=== PATIENT | female | born 1940 | race Caucasian/White ===

== ENCOUNTER 2022-11-13 10:49 | Outpatient (OUT) | payer MEDICARE, OTHER, SELFPAY ==
[2022-11-13 11:56] LABS: Basophils Absolute Auto 0.1 10^3/uL (0.0-0.1); Basophils Percent Auto 0.6 % (0.2-2.0); Eosinophils Absolute Auto 0.2 10^3/uL (0.0-0.7); Eosinophils Percent Auto 2.1 % (0.9-7.0); Hematocrit 41.7 % (36.0-48.0); Hemoglobin 13.9 g/dL (12.0-16.0); Immature Granulocytes Abs Auto 0.05 10^3/uL (0.00-0.03); Immature Granulocytes Pct Auto 0.5 % (0.0-0.5); Lymphocytes Absolute Auto 3.3 10^3/uL (1.2-3.8); Lymphocytes Percent Auto 34.2 % (20.5-60.0); Mean Corpuscular HGB Conc 33.3 g/dL (29.9-35.2); Mean Corpuscular Hemoglobin 34.4 pg (26.7-34.0); Mean Corpuscular Volume 103.2 fL (81.0-99.0); Mean Platelet Volume 9.1 fL (9.5-13.5); Monocytes Absolute Auto 0.8 10^3/uL (0.3-0.8); Monocytes Percent Auto 8.4 % (1.7-12.0); Neutrophils Absolute Auto 5.1 10^3/uL (1.4-6.5); Neutrophils Percent Auto 54.2 % (43.0-75.0); Platelet Count 278 10^3/uL (150-450); Red Blood Count 4.04 10^6/uL (4.20-5.40); Red Cell Distribution Width 13.1 % (11.0-15.0); White Blood Count 9.5 10^3/uL (4.0-11.0)
[2022-11-13 12:41] LABS: Alanine Aminotransferase 47 U/L (14-59); Albumin Level 3.9 g/dL (3.4-5.0); Alkaline Phosphatase 82 U/L (46-116); Anion Gap 15.8; Aspartate Amino Transferase 38 U/L (15-37); BUN Creatinine Ratio 14.8; Bilirubin Total 0.4 mg/dL (0.2-1.0); Calcium 9.6 mg/dL (8.5-10.1); Carbon Dioxide 22.7 mmol/L (21.0-32.0); Chloride 101 mmol/L (98-107); Estimated GFR (African America 55 (>=60); Estimated GFR (Non-African Ame 45 (>=60); Globulin 4.1 g/dL; Glucose 109 mg/dL (74-106); Potassium 4.5 mmol/L (3.5-5.1); Sodium 135 mmol/L (136-145); Thyroid Stimulating Hormone 2.167 uIU/mL (0.358-3.740)
== END 2022-11-13 10:50 ==
PROVIDERS: PCP Family Medicine; Visit Provider Family Medicine
DX: I11.0 Hypertensive heart disease with heart failure (principal); I50.30 Unspecified diastolic (congestive) heart failure; I48.0 Paroxysmal atrial fibrillation; I25.10 Atherosclerotic heart disease of native coronary artery without angina pectoris
CPT/HCPCS: 36415; 80053; 83880; 84436; 84443; 84481; 85025

== ENCOUNTER 2022-12-11 12:59 | Outpatient (OUT) | payer MEDICARE, OTHER, SELFPAY ==
--- NOTE | 2022-12-11 13:01 | CA_ITS ---
Patient: ABDIRAHMAN GOMEZ Exam Date: 12/11/2022 : 1940 Gender:F Ordering : DR Ganesh Samuel . Admission #: [id number] Family : DR SAMANTHA LAMB M.D. Order #: [id number] CLICK HERE TO VIEW EXAM ECHOCARDIOGRAM REPORT PROCEDURE: CA ECHO DOPPLER COMPLETE INDICATIONS: Chest pain, Hypertension, CHF COMPARISON: None. DESCRIPTION: COMPLETE ECHOCARDIOGRAM Real-time transthoracic echocardiography with 2D, M-mode, spectral and color flow Doppler performed. QUALITY: Technical quality was adequate. LEFT VENTRICLE: Normal chamber size. Normal left ventricular wall thickness. Global left ventricular systolic function is normal. LV EF: Visual estimation of left ventricular ejection fraction is 60%. DIASTOLIC: Not adequately assessed due to heart rhythm. ATRIAL SEPTUM: LEFT ATRIUM: Moderate dilatation. RIGHT ATRIUM: Moderate dilatation. RIGHT VENTRICLE: Mild dilatation. Normal right ventricular systolic function. TRICUSPID VALVE: Normal mobility and thickness. No stenosis with moderate to severe regurgitation. Mild pulmonary hypertension. RVSP 35 mmHg MITRAL VALVE: Mildly thickened with normal mobility. No evidence of mitral valve stenosis. There is no mitral annular calcification. Mild to moderate mitral regurgitation. AORTIC VALVE: Normal trileaflet appearance. Mildly calcified aortic valve. Normal leaflet mobility. Doppler velocity suggest no aortic valve stenosis. Trivial aortic regurgitation. AORTIC ROOT: Normal diameter and appearance. PULMONIC VALVE: Normal thickness and mobility. No stenosis. Mild regurgitation. PERICARDIUM: No evidence of pericardial effusion. IVC: Collapses with inspirations. Normal size PLEURA: CONCLUSION: 1. Left ventricular systolic function is normal. LVEF is 60%. 2. Mildly dilated right ventricle with normal systolic function. 3. Moderate biatrial dilatation. 4. Moderate to severe tricuspid regurgitation. 5. Mild to moderate mitral regurgitation. 6. Mildly elevated right-sided pressures. RVSP is 35 mmHg. Adult Echocardiography Procedure Report Left Ventricle LVEDD (3.7 - 5.6 cm): 4.24 cm LVESD (2.2 - 4.0 cm): 2.71 cm LVIVS thickness (0.6 - 1.2 cm): 0.83 cm LVPW thickness (0.5 - 1.0 cm): 0.88 cm e': 0.12 m/s E - e': 7.09 LVOT Max Gradient: 1.40 mm[Hg], 1.24 mm[Hg] LVOT Area (cm2): 0.57 m/s Peak Velocity (LVOT): 0.59 m/s, 0.56 m/s Mean Velocity (LVOT): 0.39 m/s LVOT Diameter 1.87 cm Left Atrium Left Atrium Systolic Dimension: 4.19 cm Mitral Valve Mitral Valve E-Wave Peak Velocity: 0.87 m/s Right Ventricle RV Internal Diastolic Dimension: 4.23 cm Aorta AO Root Diam: 2.58 cm Ascending Ao Diam: 2.50 cm Aortic Valve AoV Area (Peak Luis): 1.53 cm2, 1.58 cm2 AoV Area (VTI): 1.71 cm2, 1.70 cm2 Peak Velocity(Antegrade Flow): 1.03 m/s Peak Gradient(Antegrade Flow): 4.22 mm[Hg] Mean Velocity(Antegrade Flow): 0.68 m/s Mean Gradient(Antegrade Flow): 2.10 mm[Hg] Velocity Time Integral: 20.92 cm Tricuspid Valve Peak Velocity (Regurgitant Flow): 2.56 m/s, 2.64 m/s, 2.85 m/s, 2.77 m/s Pulmonic Valve Peak Velocity: 0.65 m/s Peak Gradient: 1.19 mm[Hg], 2.27 mm[Hg] Right Atrium Right Atrium Systolic Pressure: 62.83 ml, 48.24 ml, 77.42 ml Dictated by: Kirk Lopez M.D. on 12/11/2022 at 18:46 Approved by: Kirk Lopez M.D. on 12/11/2022 at 18:50
== END 2022-12-11 13:00 | disposition home or self-care (01) ==
LOC: CARD 13:00
PROVIDERS: PCP Family Medicine; Visit Provider Family Medicine
DX: I11.0 Hypertensive heart disease with heart failure (principal); I50.9 Heart failure, unspecified; I07.1 Rheumatic tricuspid insufficiency; I25.10 Atherosclerotic heart disease of native coronary artery without angina pectoris; R07.9 Chest pain, unspecified
CPT/HCPCS: 93306

== ENCOUNTER 2023-01-25 08:48 | Outpatient (OUT) | payer MEDICARE, OTHER, SELFPAY ==
--- NOTE | 2023-01-25 | PCN_ITS ---
CARDIAC STRESS TEST Requesting Physician:? Ganesh Samuel M.D. < > (name of nurse practitioner unclear ? please verify) [employer] Procedure Date:? 01/25/2023 INDICATION:? Chest pain. STRESS TEST PROTOCOL:? Lexiscan myocardial perfusion imaging. . Resting blood pressure:? 160/92 Resting heart rate:? 86 Post infusion blood pressure:? 162/86 Post infusion heart rate:? 81 CONCLUSION:? 1.? Resting EKG is abnormal and indicative of possible lateral ischemia. 2.? Patient has frequent PVCs pre-infusion and increase in frequency with infusion.? 3.? Patient reported back pain.? No reports of chest pain. 4.? No definite EKG changes consistent with ischemia post Lexiscan infusion. 5.? Please refer to separately interpreted and reported nuclear myocardial perfusion imaging. 6.? Clinical correlation recommended.? MTDD
--- NOTE | 2023-01-25 08:00 | NM_ITS ---
Patient: ABDIRAHMAN GOMEZ Exam Date: 01/25/2023 : 1940 Gender:F Ordering : MRS. JAILYN MEANS NP Admission #: [id number] Family : DR Ganesh Samuel . Order #: [id number] CLICK HERE TO VIEW EXAM RADIOLOGY REPORT PROCEDURE: NM ADAN PERF SPECT REST STR COMPARISON: None. INDICATIONS: CHEST PAIN TECHNIQUE: Exam Description: Stress/Rest one day protocol gated SPECT Rest Imagin.2 mCi Tc-99m Cardiolite IV on 01/25/2023 Stress Imaging 30.5 mCi Tc-99m Cardiolite IV on 01/25/2023 Exercise Protocol: 0.4 mg Lexiscan given IV Heart Rate (bpm): Rest: 86 Max: 93 PMHR: 67 Blood Pressure: Rest: 168/92 Max: 168/92 Symptoms: Rest and peak stress ECG findings were equivocal and the exercise portion of the study was Equivocal per attending physician Dr. Penaloza . For more details please see separate cardiac stress test report. FINDINGS: QUALITY OF STUDY: Excellent. PERFUSION DEFECT: None. LOCATION: N/A SIZE: N/A. SEVERITY: N/A. TYPE: N/A. WALL MOTION: Normal. LV SIZE: Normal. 45 mL. TID / TCD: None; 0.8 LVEF: Normal. Calculated EF 74%. SUMMARY: Myocardial perfusion imaging study is NORMAL. CONCLUSION: 1. Normal nuclear medicine myocardial perfusion scan. Dictated by: Fly Cantu M.D. on 01/26/2023 at 11:37 Approved by: Fly Cantu M.D. on 01/26/2023 at 11:47
[2023-01-25] MEDS: REGADENOSON 0.4 MG/5 ML SYRINGE IV (10:09)
== END 2023-01-25 08:49 | disposition home or self-care (01) ==
LOC: NM 08:48
PROVIDERS: PCP Family Medicine; Visit Provider Nurse Practitioner Acute Care
DX: R07.9 Chest pain, unspecified (principal)
CPT/HCPCS: 78452; 93017; A9500; J2785

== ENCOUNTER 2023-02-01 03:58 | Inpatient (IN) | payer MEDICARE, OTHER, SELFPAY ==
[2023-02-01] VITALS (46 sets, daily range): BP systolic 101–159; BP diastolic 53–78; PULSE 66–117; RESP 16–33; TEMP 36.6–37.2; O2SAT 89–96; BMI 26.9; BMI 28.1
--- NOTE | 2023-02-01 04:05 | ED_ITS ---
HPI - SOB/Dyspnea General Chief Complaint: Shortness of Breath/Dyspnea Stated Complaint: SHORTNESS OF BREATH Time Seen by Provider: 02/01/23 04:05 Mode of arrival: ambulance History of Present Illness HPI Narrative: pt presents to the emergency department complaining of dyspnea. Patient states she went to bed last night feeling well and in the middle the night she woke up coughing. She states she has a cough which is productive of phlegm with blood tinged also noted. Patient denies any fever, or chills. She states she is feeling short of breath. She denies any weakness. She does not have a history of lung disease. She has a history of atrial fibrillation and she takes Eliquis. She denies any fall or trauma. She denies any nausea, vomiting, diarrhea, constipation, or abdominal pain. She denies any chest pain. States she has had a change in 2008. Her committee member is from [facility]. She states she Had a stress test done last week here at [place]. Patient's ejection fraction was 74 percent. Her myocardial perfusion imaging was normal. Patient was told she had a leaky valve but nothing that would be surgical. Patient was found to be hypoxic 89% RA by EMS and she arrives to the emergency department on 4 L nasal cannula satting 92 percent. Related Data Home Medications Medication Instructions Recorded Confirmed amitriptyline 25 mg tablet 25 mg PO BEDTIME 02/01/23 02/01/23 amlodipine 10 mg tablet 10 mg PO DAILY 02/01/23 02/01/23 apixaban 5 mg tablet (Eliquis) 5 mg PO Q12H 02/01/23 02/01/23 aspirin 81 mg capsule 81 mg PO DAILY 02/01/23 02/01/23 carvedilol 12.5 mg tablet 12.5 mg PO Q12H 02/01/23 02/01/23 furosemide 20 mg tablet 40 mg PO DAILY 02/01/23 02/01/23 hydrocodone 5 mg-acetaminophen 325 1 tab PO Q12H 02/01/23 02/01/23 mg tablet isosorbide mononitrate 60 mg 60 mg PO DAILY 02/01/23 02/01/23 tablet,extended release 24 hr lorazepam 1 mg tablet 1 mg PO Q12H 02/01/23 02/01/23 montelukast 10 mg tablet 10 mg PO DAILY 02/01/23 02/01/23 omeprazole 40 mg capsule,delayed 40 mg PO BID 02/01/23 02/01/23 release polyethylene glycol 3350 17 17 g PO DAILY PRN constipation 02/01/23 02/01/23 gram/dose oral powder (ClearLax) potassium chloride 20 mEq 20 meq PO DAILY 02/01/23 02/01/23 tablet,extended release(part/cryst) (Klor-Con M) pramipexole 0.5 mg tablet 0.5 mg PO DAILY 02/01/23 02/01/23 rosuvastatin 5 mg tablet 5 mg PO DAILY 02/01/23 02/01/23 tizanidine 4 mg tablet 4 mg PO Q12H 02/01/23 02/01/23 valsartan 40 mg tablet 40 mg PO DAILY 02/01/23 02/01/23 Allergies Allergy/AdvReac Type Severity Reaction Status Date / Time ciprofloxacin [From Cipro] Allergy Unknown Verified 02/01/23 04:04 Review of Systems ROS Status of ROS 10 or more systems reviewed and unremarkable except as noted in history and below [facility] Social History Smoking status: Never smoker Exam Narrative Exam Narrative: Nurses notes and vital signs reviewed and patient is hypoxic. General: Elderly, frail, chronically ill,and in no apparent distress. Skin: Warm, dry, mild pallor noted. No Rash Head: Normocephalic, atraumatic. Neck: Supple, non-tender. Eye: Pupils are equal, round and EOMI. No scleral icterus. Ears, Nose, Mouth, and Throat: TM clear, no posterior oropharynx erythema or n nakia mucosal hypertrophy, uvula is mid-line Oral mucosa is moist Cardiovascular: Irregularly irregular tachycardia without murmur, gallop or rub. Respiratory: tachypnea, No accessory muscle use or respiratory distress. Lungs Bilateral diffuse rales Chest Wall: no tenderness Back: No midline thoracic or lumbar vertebral tenderness. No CVA tenderness Musculoskeletal: normal ROM, no calf or popliteal tenderness, no lower extremity edema/swelling GI: Abdomen is soft, non-distended. Normal bowel sounds. No masses appreciated. No tenderness to palpation. No rebound, guarding, or rigidity noted. Neurological: A&O x4. No cranial nerve dysfunction observed. No truncal ataxia. Moves all extremities. Sensation intact. Psychiatric: Cooperative and interactive. Normal mood and affect. Constitutional Vital Signs, click to edit/add: Last Vital Signs Temp 98.7 F 02/01/23 04:00 Pulse 104 H 02/01/23 06:10 Resp 24 02/01/23 06:10 BP 125/67 02/01/23 06:00 Pulse Ox 93 L 02/01/23 06:15 O2 Del Method Nasal Cannula 02/01/23 06:15 O2 Flow Rate 4 02/01/23 06:15 Course Vital Signs Vital signs: Vital Signs Temperature 98.7 F 02/01/23 04:00 Pulse Rate 93 H 02/01/23 04:00 Respiratory Rate 20 02/01/23 04:00 Blood Pressure 139/62 02/01/23 04:00 Pulse Oximetry 92 L 02/01/23 04:00 Oxygen Delivery Method Nasal Cannula 02/01/23 04:00 Oxygen Delivery Flow Rate 4 02/01/23 04:00 Temperature 98.7 F 02/01/23 04:00 Pulse Rate 104 H 02/01/23 06:10 Respiratory Rate 24 02/01/23 06:10 Blood Pressure 125/67 02/01/23 06:00 Pulse Oximetry 93 L 02/01/23 06:15 Oxygen Delivery Method Nasal Cannula 02/01/23 06:15 Oxygen Delivery Flow Rate 4 02/01/23 06:15 MDM - SOB/Dyspnea MDM Narrative Medical decision making narrative: EKG shows atrial fibrillation with RVR [address] depression in the 1 and aVL, similar to previous EKG from 06/08/2022. Patient has leukocytosis, chest x-ray shows infiltrates. She was started on Rocephin, and Zithromax as she is ALLERGIC to Cipro. The patient was given 5 mg of labetalol IV and her heart rate is down to 86. Patient still on oxygen. She was discussed with Dr. mock-He will admit the patient to a [facility] telemetry bed. Differential Diagnosis Differential diagnosis: Likely acute exacerbation of chronic obstructive airways disease, congestive heart failure, community acquired pneumonia and asthma with exacerbation Medical Records Attestation: I reviewed the patient's medical records. Lab Data Attestation: I reviewed the patient's lab results. Labs: Lab Results 02/01/23 Range/Units 04:44 WBC 13.4 H (4.0-11.0) 10^3/uL RBC 3.87 L (4.20-5.40) 10^6/uL Hgb 13.3 (12.0-16.0) g/dL Hct 39.6 (36.0-48.0) % MCV 102.3 H (81.0-99.0) fL MCH 34.4 H (26.7-34.0) pg MCHC 33.6 (29.9-35.2) g/dL RDW 13.7 (11.0-15.0) % Plt Count 238 (150-450) 10^3/uL MPV 8.9 L (9.5-13.5) fL Neut % (Auto) 88.5 H (43.0-75.0) % Lymph % (Auto) 7.8 L (20.5-60.0) % [place] % (Auto) 1.9 (1.7-12.0) % Eos % (Auto) 0.6 L (0.9-7.0) % Baso % (Auto) 0.3 (0.2-2.0) % Neut # (Auto) 11.8 H (1.4-6.5) 10^3/uL Lymph # (Auto) 1.1 L (1.2-3.8) 10^3/uL [place] # (Auto) 0.3 (0.3-0.8) 10^3/uL Eos # (Auto) 0.1 (0.0-0.7) 10^3/uL Baso # (Auto) 0.0 (0.0-0.1) 10^3/uL Abs Immat Gran (auto) 0.12 H (0.00-0.03) 10^3/uL Imm/Tot Granulo (auto) 0.9 H (0.0-0.5) % PT 10.1 (9.0-11.6) sec INR 0.95 APTT 29.3 (22.3-36.2) sec Sodium 130 L (136-145) mmol/L Potassium 3.7 (3.5-5.1) mmol/L Chloride 97 L (98-107) mmol/L Carbon Dioxide 20.9 L (21.0-32.0) mmol/L Anion Gap 15.8 BUN 8.0 (7.0-18.0) mg/dL Creatinine 0.96 (0.55-1.02) mg/dL Est GFR ( Amer) >60 (>=60) Est GFR (Non-Af Amer) 56 L (>=60) BUN/Creatinine Ratio 8.3 Glucose 124 H (74-106) mg/dL Calcium 8.2 L (8.5-10.1) mg/dL Total Bilirubin 0.4 (0.2-1.0) mg/dL AST 43 H (15-37) U/L ALT 41 (14-59) U/L Alkaline Phosphatase 84 (46-116) U/L Troponin I High Sens 9.9 (4.0-51.3) pg/mL NT-Pro-B Natriuret Pep 866.0 (<=1800.0) pg/mL Total Protein 7.2 (6.4-8.2) g/dL Albumin 3.2 L (3.4-5.0) g/dL Globulin 4.0 g/dL Albumin/Globulin Ratio 0.8 Discharge Plan Discharge Chief Complaint: Shortness of Breath/Dyspnea Clinical Impression: Hypoxemia, Atrial fibrillation, Pneumonia Patient Disposition: Admitted As Inpatient Time of Disposition Decision: 06:30 Condition: Good Prescriptions / Home Meds: No Action amitriptyline 25 mg tablet 25 mg PO BEDTIME amlodipine 10 mg tablet 10 mg PO DAILY Eliquis 5 mg tablet 5 mg PO Q12H carvedilol 12.5 mg tablet 12.5 mg PO Q12H furosemide 20 mg tablet 40 mg PO DAILY hydrocodone-acetaminophen 5-325 mg tablet 1 tab PO Q12H isosorbide mononitrate 60 mg tablet extended release 24 hr 60 mg PO DAILY lorazepam 1 mg tablet 1 mg PO Q12H Patient Comments: 1/2-1 tablet twice daily montelukast 10 mg tablet 10 mg PO DAILY omeprazole 40 mg capsule,delayed release(DR/EC) 40 mg PO BID polyethylene glycol 3350 [ClearLax] 17 gram/dose powder 17 g PO DAILY PRN (Reason: constipation) potassium chloride [Klor-Con M20] 20 mEq tablet,ER particles/crystals 20 meq PO DAILY pramipexole 0.5 mg tablet 0.5 mg PO DAILY rosuvastatin 5 mg tablet 5 mg PO DAILY tizanidine 4 mg tablet 4 mg PO Q12H valsartan 40 mg tablet 40 mg PO DAILY aspirin 81 mg capsule 81 mg PO DAILY Referrals: Ganesh Samuel MD [Primary Care Provider] - 1 week
--- NOTE | 2023-02-01 04:32 | XR_ITS ---
The [address] [address] Patient Name: ABDIRAHMAN GOMEZ MRN: [id number] date: 1940 Sex: F Assigned Patient Location: ER Current Patient Location: ED.MAIN Accession/Order Number: [id number] Exam Date: 02/01/2023 04:55 Report Date: 02/01/2023 05:39 At the request of: LAITH MARIANO Procedure: XR chest 1V EXAM: XR chest 1V HISTORY: Dyspnea; indication states cough and shortness of breath; technologist notes state coughing up blood. COMPARISON: Portable chest radiograph dated 09/22/2018. TECHNIQUE: AP erect portable chest radiograph performed. FINDINGS: Stable median sternotomy wires secondary to coronary artery bypass graft surgery. Left subclavian pacemaker with leads overlying the right atrium and the right ventricle. Stable mild prominence of the cardiac silhouette. Stable mild elevation of the right hemidiaphragm. There are new mild patchy right perihilar/infrahilar opacities. There is no pleural effusion or pulmonary vascular congestion. XR/XR chest 1V IMPRESSION: There are new mild patchy right perihilar/infrahilar opacities. Appropriate clinical management and a follow-up chest radiograph to confirm complete resolution recommended. Electronically authenticated by: BLACK RIVERA Date: 02/01/2023 05:39
--- NOTE | 2023-02-01 04:32 | ECG_ITS ---
The [facility] Test Date: 2023-02-01 Pat Name: ABDIRAHMAN GOMEZ Department: Room: - Gender: Female [employer] Architect: : 1940 Requested By: IRISH FAUSTIN Order Number: [id number] Reading MD: SABA RUSSELL Measurements Intervals [place] Rate: 114 P: -85422 NC: -25353 QRS: -19 QRSD: 80 T: 118 QT: 296 QTc: 363 Interpretive Statements 75183 Atrial fibrillation with rapid ventricular response [address] depression, probably digitalis effect 7300 Indeterminate axis T wave inversion, can't exclude lateral wall ischemia Low voltage across the precordium 9150 abnormal ECG No previous ECG available for comparison Electronically Signed On 02-01-2023 6:58:47 EDT by SABA RUSSELL
[2023-02-01 05:02] LABS: Basophils Percent Auto 0.3 % (0.2-2.0); Eosinophils Absolute Auto 0.1 10^3/uL (0.0-0.7); Eosinophils Percent Auto 0.6 % (0.9-7.0); Hematocrit 39.6 % (36.0-48.0); Hemoglobin 13.3 g/dL (12.0-16.0); Immature Granulocytes Abs Auto 0.12 10^3/uL (0.00-0.03); Immature Granulocytes Pct Auto 0.9 % (0.0-0.5); Lymphocytes Absolute Auto 1.1 10^3/uL (1.2-3.8); Lymphocytes Percent Auto 7.8 % (20.5-60.0); Mean Corpuscular HGB Conc 33.6 g/dL (29.9-35.2); Mean Corpuscular Hemoglobin 34.4 pg (26.7-34.0); Mean Corpuscular Volume 102.3 fL (81.0-99.0); Mean Platelet Volume 8.9 fL (9.5-13.5); Monocytes Absolute Auto 0.3 10^3/uL (0.3-0.8); Monocytes Percent Auto 1.9 % (1.7-12.0); Neutrophils Absolute Auto 11.8 10^3/uL (1.4-6.5); Neutrophils Percent Auto 88.5 % (43.0-75.0); Platelet Count 238 10^3/uL (150-450); Red Blood Count 3.87 10^6/uL (4.20-5.40); Red Cell Distribution Width 13.7 % (11.0-15.0); White Blood Count 13.4 10^3/uL (4.0-11.0)
[2023-02-01 05:23] LABS: Alanine Aminotransferase 41 U/L (14-59); Albumin Globulin Ratio 0.8; Albumin Level 3.2 g/dL (3.4-5.0); Alkaline Phosphatase 84 U/L (46-116); Anion Gap 15.8; Aspartate Amino Transferase 43 U/L (15-37); BUN Creatinine Ratio 8.3; Bilirubin Total 0.4 mg/dL (0.2-1.0); Calcium 8.2 mg/dL (8.5-10.1); Carbon Dioxide 20.9 mmol/L (21.0-32.0); Chloride 97 mmol/L (98-107); Estimated GFR (African America >60 (>=60); Estimated GFR (Non-African Ame 56 (>=60); Glucose 124 mg/dL (74-106); Potassium 3.7 mmol/L (3.5-5.1); Sodium 130 mmol/L (136-145); Total Protein 7.2 g/dL (6.4-8.2); Troponin I High Sensitivity 9.9 pg/mL (4.0-51.3)
[2023-02-01 05:42] LABS: INR 0.95; Partial Thromboplastin Time 29.3 sec (22.3-36.2); Prothrombin Time 10.1 sec (9.0-11.6)
[2023-02-01 05:58] LABS: Adenovirus NOT DETECTED (NOT DETECTE); Bordetella parapertussis NOT DETECTED (NOT DETECTE); Coronavirus 229E NOT DETECTED (NOT DETECTE); Coronavirus HKU1 NOT DETECTED (NOT DETECTE); Coronavirus NL63 NOT DETECTED (NOT DETECTE); Coronavirus OC43 NOT DETECTED (NOT DETECTE); Human Metapneumovirus NOT DETECTED (NOT DETECTE); Human Rhinovirus/Enterovirus NOT DETECTED (NOT DETECTE); Influenza A NOT DETECTED (NOT DETECTE); Influenza B NOT DETECTED (NOT DETECTE); Mycoplasma pneumoniae NOT DETECTED (NOT DETECTE); Parainfluenza Virus 1 NOT DETECTED (NOT DETECTE); Parainfluenza Virus 2 NOT DETECTED (NOT DETECTE); Parainfluenza Virus 3 NOT DETECTED (NOT DETECTE); Parainfluenza Virus 4 NOT DETECTED (NOT DETECTE); Respiratory Syncytial Virus NOT DETECTED (NOT DETECTE); SARS-CoV-2 NOT DETECTED (NOT DETECTE)
[2023-02-01] MEDS: METOPROLOL TARTRATE 5 MG/5 ML VIAL IVP (06:08)
[2023-02-01] MEDS: CEFTRIAXONE 1,000 MG in 0.9 % SODIUM CHLORIDE 50 ML 100 MG IV (06:11)
[2023-02-01] MEDS: FUROSEMIDE 20 MG/2 ML VIAL IVP (06:39)
[2023-02-01] MEDS: AZITHROMYCIN 500 MG in 0.9 % SODIUM CHLORIDE 250 ML 250 MG IV (06:39)
[2023-02-01] MEDS: IPRATROPIUM/ALBUTEROL SULFATE 3 ML AMPUL.NEB IH ×3 (09:13→20:02)
[2023-02-01] MEDS: POTASSIUM CHLORIDE 10 MEQ ER TABLET 20 MEQ PO (09:54)
[2023-02-01] MEDS: LORAZEPAM 1 MG TABLET PO ×2 (09:55→21:07)
[2023-02-01] MEDS: APIXABAN 5 MG TABLET PO ×2 (09:55→21:05)
[2023-02-01] MEDS: CARVEDILOL 12.5 MG TABLET PO ×2 (09:55→21:05)
[2023-02-01] MEDS: MONTELUKAST SODIUM 10 MG TABLET PO (09:55)
[2023-02-01] MEDS: ASPIRIN 81 MG TAB.CHEW PO (09:55)
[2023-02-01] MEDS: TIZANIDINE HCL 4 MG TABLET PO ×2 (09:55→22:25)
[2023-02-01] MEDS: 0.9 % SODIUM CHLORIDE 1,000 ML 75 ML IV (10:13)
[2023-02-01] MEDS: FUROSEMIDE 20 MG TABLET 40 MG PO (10:15)
[2023-02-01] MEDS: OMEPRAZOLE 40 MG CAPSULE.DR PO ×2 (10:15→21:06)
--- NOTE | 2023-02-01 11:38 | P.HP_ITS ---
H&P: HPI History of Present Illness Chief complaint: Shortness of breath Narrative: 82 y o female, currently living at home, was brought to ED for cough, with streaks of blood in it, and shortness of breath last night. Denies fever, nausea, vomiting, diarrhea and constipation. She also reports mild midsternal ch est pain that is pleuritic and worsens with cough. She was found hypoxic in ED and was put on O2 via NC. Patient was seen this morning and reports feeling SOB at rest. She is feeling slightly better but not by a lot. No recent abx use or hospital stay. She had embolic stroke in May and was admitted at [facility]. She is on Eliquis for Afib. Review of Systems ROS Status of ROS 10 or more systems reviewed and unremarkable except as noted in history and below [facility] Medical History (Updated 02/01/23 @ 11:56 by Shaikh Diamond MD) Surgical History Family History Mother Family history of CHF (congestive heart failure) Family history of COPD (chronic obstructive pulmonary disease) Other Family history of cancer Family history of diabetes mellitus Family history of hypertension Family history of myocardial infarction Social History Within the past year, how often did you have a drink containing alcohol: never Score interpretation: A score less than 3 is consistent with normal alcohol consumption. Smoking status: Never smoker Non-prescribed substance use: denies use Highest level of school completed/degree received: 10th grade Little interest or pleasure in doing things: not at all Feeling down, depressed, or hopeless: not at all Feel stressed/tense/nervous/anxious/difficulty sleeping: not at all Do you think of yourself as: straight/heterosexual Gender Identity: female Meds Home Medications and Allergies Home Medications Medication Instructions Recorded Confirmed Type amitriptyline 25 mg tablet 25 mg PO BEDTIME 02/01/23 02/01/23 History amlodipine 10 mg tablet 10 mg PO DAILY 02/01/23 02/01/23 History apixaban 5 mg tablet (Eliquis) 5 mg PO Q12H 02/01/23 02/01/23 History aspirin 81 mg capsule 81 mg PO DAILY 02/01/23 02/01/23 History carvedilol 12.5 mg tablet 12.5 mg PO Q12H 02/01/23 02/01/23 History furosemide 20 mg tablet 40 mg PO DAILY 02/01/23 02/01/23 History hydrocodone 5 mg-acetaminophen 325 1 tab PO Q12H 02/01/23 02/01/23 History mg tablet isosorbide mononitrate 60 mg 60 mg PO DAILY 02/01/23 02/01/23 History tablet,extended release 24 hr lorazepam 1 mg tablet 1 mg PO Q12H 02/01/23 02/01/23 History montelukast 10 mg tablet 10 mg PO DAILY 02/01/23 02/01/23 History omeprazole 40 mg capsule,delayed 40 mg PO BID 02/01/23 02/01/23 History release polyethylene glycol 3350 17 17 g PO DAILY PRN constipation 02/01/23 02/01/23 History gram/dose oral powder (ClearLax) potassium chloride 20 mEq 20 meq PO DAILY 02/01/23 02/01/23 History tablet,extended release(part/cryst) (Klor-Con M) pramipexole 0.5 mg tablet 0.5 mg PO DAILY 02/01/23 02/01/23 History rosuvastatin 5 mg tablet 5 mg PO DAILY 02/01/23 02/01/23 History sennosides 8.6 mg tablet (senna) 17.2 mg PO BID Constipation 02/01/23 02/01/23 History tizanidine 4 mg tablet 4 mg PO Q12H 02/01/23 02/01/23 History valsartan 40 mg tablet 40 mg PO DAILY 02/01/23 02/01/23 History Allergies Allergy/AdvReac Type Severity Reaction Status Date / Time ciprofloxacin [From Cipro] Allergy Unknown Verified 02/01/23 08:17 Exam Constitutional Vital Signs, click to edit/add: Last Vital Signs Temp 98.4 F 02/01/23 07:36 Pulse 79 02/01/23 10:02 Resp 20 02/01/23 10:00 BP 101/53 02/01/23 10:15 Pulse Ox 94 L 02/01/23 10:00 O2 Del Method Nasal Cannula 02/01/23 09:14 O2 Flow Rate 4 02/01/23 09:14 Documenting provider has reviewed patient's vital signs: yes Common normals: oriented x3 General appearance: cooperative and in distress (appears short of breath ) HENMT Common normals: normocephalic and head/scalp atraumatic Head and scalp: normocephalic and atraumatic Eye Common normals: conjunctivae normal and no scleral icterus Conjunctiva: conjunctiva(e) normal Respiratory Common normals: normal respiratory effort Effort & inspection: tachypneic Auscultation: rales diffuse Cardio Common normals: regular rate, S1 normal heart sound and S2 normal heart sound Heart sounds: S1 normal and S2 normal GI Common normals: Normal to inspection, nondistended, normoactive bowel sounds present, soft to palpation, non-tender and no hepatosplenomegaly Palpation: soft and no hepatosplenomegaly Extremity Common normals: no clubbing, cyanosis or edema Neuro Common normals: oriented x3, moves all extremities and no focal motor deficits Psych Common normals: mental status grossly normal, denies hallucinations, denies homicidal ideation and denies suicidal ideation Results Labs Labs: Short CBC 02/01/23 Range/Units 04:44 WBC 13.4 H (4.0-11.0) 10^3/uL Hgb 13.3 (12.0-16.0) g/dL Hct 39.6 (36.0-48.0) % Plt Count 238 (150-450) 10^3/uL BMP 02/01/23 04:44 Sodium 130 L Potassium 3.7 Chloride 97 L Carbon Dioxide 20.9 L BUN 8.0 Creatinine 0.96 Glucose 124 H Calcium 8.2 L Liver Function 02/01/23 Range/Units 04:44 Total Bilirubin 0.4 (0.2-1.0) mg/dL AST 43 H (15-37) U/L ALT 41 (14-59) U/L Alkaline Phosphatase 84 (46-116) U/L Albumin 3.2 L (3.4-5.0) g/dL Assessment and Plan Assessment and Plan (1) Sepsis: Assessment and Plan: HR> 90, WBC> 13 K, with resp failure and hypoxia Stable hemodynamics now. IV abx for CAP. Monitor. Gentle IV hydration Qualifiers: Sepsis type: sepsis due to unspecified organism Sepsis acute organ dysfunction status: with acute organ dysfunction Severe sepsis acute organ dysfunction type: acute respiratory failure (2) Acute respiratory failure with hypoxia: Assessment and Plan: Sec to PNA. Will treat as community acquired PNA. Patient on IV rocephin/Azithromycin Will get CT chest as patient reported hemoptysisv with cough. (3) Pneumonia: Assessment and Plan: Right davonte hilar consolidation. On Rocephin/Azithromycin F/u blood cx. CT chest ordered to assess lung parenchyma with better clarity as patient reported hemoptysis last night. Qualifiers: Pneumonia type: due to unspecified organism Laterality: right Lung location: middle lobe of lung Qualified Code(s): J18.9 - Pneumonia, unspecified organism (4) Hyponatremia: Assessment and Plan: Likely hypovolemic hyponatremia. Genlte IV hydration. (5) (HFpEF) heart failure with preserved ejection fraction: Assessment and Plan: HFpEF, mod-severe TR and moderate MR. On PO lasix as outpatient. Appears dry on exam. Stop Lasix. Start on IVF 75nl/hr. (6) Atrial fibrillation: Assessment and Plan: Persistent Afib. HR was elevated on presentation and was given IV lopressor for it. HR now in 80s On ELIQUIS for ac. Monitor. (7) H/O stroke without residual deficits: Assessment and Plan: Recent embolic stroke. No residual deficit. (8) CAD (coronary artery disease): Assessment and Plan: s/p CABG. Recent Lexiscan - normal C/w ASA, Statin (9) HTN (hypertension): Assessment and Plan: Initially on presentation, her blood pressure was elevated. Now borderline low. Morning oral medications withheld because of that. I will d/c her Imdur. and c/w rest of her meds.
--- NOTE | 2023-02-01 11:47 | CT_ITS ---
The [address] [address] Patient Name: ABDIRAHMAN GOMEZ MRN: [id number] date: 1940 Sex: F Assigned Patient Location: MS Current Patient Location: MS Accession/Order Number: [id number] Exam Date: 02/01/2023 12:07 Report Date: 02/01/2023 13:49 At the request of: SHAIKH JACOB Procedure: CT chest wo con CT CHEST WITHOUT CONTRAST HISTORY: Shortness of breath. COMPARISON: Chest x-ray 02/01/2023. METHOD: Dose reduction techniques were achieved by using automated exposure control and/or adjustment of mA and/or kV according to patient size and/or use of iterative reconstruction technique. FINDINGS: The evaluation for hilar or mediastinal lymphadenopathy is very limited with no IV contrast. The esophagus is normal appearing. There is no pericardial effusion. The major airways are patent. There is a small focus of airspace disease in the right upper lobe. There is more significant patchy airspace disease in the bilateral lower lobes. There are no pleural effusions. There is no pneumothorax. There are no acute bony abnormalities. CT/CT chest wo con IMPRESSION: Multilobar airspace disease consistent with multilobar pneumonia. Follow-up to resolution. Electronically authenticated by: RAPHAEL STANTON Date: 02/01/2023 13:49
[2023-02-01] MEDS: GUAIFENESIN 600 MG TAB.ER.12H PO ×2 (12:43→21:05)
[2023-02-01] MEDS: DOCUSATE SODIUM 100 MG CAPSULE PO ×2 (12:44→21:06)
--- NOTE | 2023-02-01 20:02 | RESP.RT ---
decreased 02 down to 3L
[2023-02-01] MEDS: ATORVASTATIN CALCIUM 20 MG TABLET PO (21:05)
[2023-02-01] MEDS: SENNOSIDES 8.6 MG TABLET 17.2 MG PO (21:06)
[2023-02-01] MEDS: AMITRIPTYLINE HCL 25 MG TABLET PO (21:06)
[2023-02-01] MEDS: PRAMIPEXOLE 1 MG TABLET 0.5 MG PO (22:25)
[2023-02-02] VITALS (19 sets, daily range): BP systolic 99–154; BP diastolic 59–69; PULSE 68–107; RESP 16–22; TEMP 36.4–36.9; O2SAT 92–98; BMI 28.1
[2023-02-02] MEDS: 0.9 % SODIUM CHLORIDE 1,000 ML 75 ML IV (00:08)
[2023-02-02 05:04] LABS: Basophils Percent Auto 0.2 % (0.2-2.0); Eosinophils Absolute Auto 0.1 10^3/uL (0.0-0.7); Eosinophils Percent Auto 0.5 % (0.9-7.0); Hematocrit 33.8 % (36.0-48.0); Hemoglobin 10.9 g/dL (12.0-16.0); Immature Granulocytes Abs Auto 0.07 10^3/uL (0.00-0.03); Immature Granulocytes Pct Auto 0.5 % (0.0-0.5); Lymphocytes Percent Auto 14.7 % (20.5-60.0); Mean Corpuscular HGB Conc 32.2 g/dL (29.9-35.2); Mean Corpuscular Hemoglobin 34.1 pg (26.7-34.0); Mean Corpuscular Volume 105.6 fL (81.0-99.0); Mean Platelet Volume 8.9 fL (9.5-13.5); Monocytes Absolute Auto 0.7 10^3/uL (0.3-0.8); Monocytes Percent Auto 4.9 % (1.7-12.0); Neutrophils Absolute Auto 10.8 10^3/uL (1.4-6.5); Neutrophils Percent Auto 79.2 % (43.0-75.0); Platelet Count 175 10^3/uL (150-450); Red Cell Distribution Width 14.1 % (11.0-15.0); White Blood Count 13.6 10^3/uL (4.0-11.0)
[2023-02-02 05:24] LABS: Alanine Aminotransferase 26 U/L (14-59); Albumin Globulin Ratio 0.7; Albumin Level 2.4 g/dL (3.4-5.0); Alkaline Phosphatase 56 U/L (46-116); Anion Gap 10.1; Aspartate Amino Transferase 19 U/L (15-37); BUN Creatinine Ratio 15.3; Bilirubin Total 0.5 mg/dL (0.2-1.0); Calcium 8.1 mg/dL (8.5-10.1); Carbon Dioxide 23.9 mmol/L (21.0-32.0); Chloride 102 mmol/L (98-107); Estimated GFR (African America >60 (>=60); Estimated GFR (Non-African Ame >60 (>=60); Globulin 3.5 g/dL; Glucose 112 mg/dL (74-106); Sodium 132 mmol/L (136-145); Total Protein 5.9 g/dL (6.4-8.2)
[2023-02-02] MEDS: CEFTRIAXONE 1,000 MG in 0.9 % SODIUM CHLORIDE 50 ML 100 MG IV (05:46)
[2023-02-02] MEDS: AZITHROMYCIN 500 MG in 0.9 % SODIUM CHLORIDE 250 ML 100 MG IV (06:17)
[2023-02-02] MEDS: AMLODIPINE BESYLATE 5 MG TABLET 10 MG PO (08:29)
[2023-02-02] MEDS: ASPIRIN 81 MG TAB.CHEW PO (08:29)
[2023-02-02] MEDS: CARVEDILOL 12.5 MG TABLET PO ×2 (08:29→20:46)
[2023-02-02] MEDS: GUAIFENESIN 600 MG TAB.ER.12H PO ×2 (08:29→20:45)
[2023-02-02] MEDS: DOCUSATE SODIUM 100 MG CAPSULE PO ×2 (08:29→20:45)
[2023-02-02] MEDS: APIXABAN 5 MG TABLET PO ×2 (08:29→20:45)
[2023-02-02] MEDS: LORAZEPAM 1 MG TABLET PO ×2 (08:30→20:46)
[2023-02-02] MEDS: MONTELUKAST SODIUM 10 MG TABLET PO (08:30)
[2023-02-02] MEDS: OMEPRAZOLE 40 MG CAPSULE.DR PO ×2 (08:30→20:45)
[2023-02-02] MEDS: POTASSIUM CHLORIDE 10 MEQ ER TABLET 20 MEQ PO (08:30)
[2023-02-02] MEDS: LOSARTAN POTASSIUM 25 MG TABLET PO (08:30)
[2023-02-02] MEDS: SENNOSIDES 8.6 MG TABLET 17.2 MG PO ×2 (08:31→20:44)
[2023-02-02] MEDS: TIZANIDINE HCL 4 MG TABLET PO ×2 (08:31→20:45)
[2023-02-02] MEDS: IPRATROPIUM/ALBUTEROL SULFATE 3 ML AMPUL.NEB IH ×3 (09:16→20:04)
--- NOTE | 2023-02-02 09:28 | RESP.RT ---
titrated down to 2L
--- NOTE | 2023-02-02 12:30 | P.IMPN_ITS ---
Progress Note: A&P Assessment and Plan (1) Sepsis: Assessment and Plan: Stable hemodynamics now. Stop IVF. Qualifiers: Sepsis type: sepsis due to unspecified organism Sepsis acute organ dysfunction status: with acute organ dysfunction Severe sepsis acute organ dysfunction type: acute respiratory failure (2) Acute respiratory failure with hypoxia: Assessment and Plan: Sec to multifocal PNA. Improving. Not in resp distress anymore. Down to 2 L O2 now. C.w current treatment (3) Pneumonia: Assessment and Plan: Multifocal PNA. Being treated with IV rocephin/azithromycin F/u blood and sputum cx. Qualifiers: Laterality: bilateral Pneumonia type: due to unspecified organism (4) Cough with hemoptysis: Assessment and Plan: Likely due to multifocal PNA. Monitor. CT chest - no mass. (5) Hyponatremia: Assessment and Plan: Improved. Monitor. (6) (HFpEF) heart failure with preserved ejection fraction: Assessment and Plan: Euvolemic on exam. Monitor. Possibly resume PO lasix tomorrow to keep her euvolemic. Has sever TR and mild/mod MR. At high risk of volume overload. (7) Atrial fibrillation: Assessment and Plan: Persistent afib. Eliquis for AC. (8) H/O stroke without residual deficits: Assessment and Plan: Recent CVA in 06/04 on ASA, eliquis and statin (9) CAD (coronary artery disease): Assessment and Plan: Stable. No CP. P/w SOB due to PNA C/w ASA, coreg, statin (10) HTN (hypertension): Assessment and Plan: BP borderline low. Imdur on hold. Will also d/c losartan. Monitor closely. C/w coreg and amlodipine Plan Continued inpatient stay for multifocal PNA and hypoxia. Still short of breath on exertion. Clinically improving but given her age, multi focal PNA along with hypoxia needs close clinical monitoring. Internal Medicine - PN: Subj Subjective Interval history: Seen and examined. Doing better. Down to 2 L O2 Reports hemoptysis and [place]. She is still coughing and its not better from yesterday Exam Constitutional Vital Signs, click to edit/add: Last Vital Signs Temp 98.4 F 02/02/23 06:00 Pulse 70 02/02/23 12:01 Resp 16 02/02/23 09:20 BP 101/59 02/02/23 06:00 Pulse Ox 98 02/02/23 09:20 O2 Del Method Nasal Cannula 02/02/23 09:20 O2 Flow Rate 3 02/02/23 09:20 Documenting provider has reviewed patient's vital signs: yes Common normals: oriented x3 General appearance: cooperative HENMT Common normals: normocephalic and head/scalp atraumatic Head and scalp: normocephalic and atraumatic Eye Common normals: conjunctivae normal and no scleral icterus Conjunctiva: conjunctiva(e) normal Respiratory Common normals: normal respiratory effort Auscultation: rales diffuse Cardio Common normals: regular rate, S1 normal heart sound and S2 normal heart sound Heart sounds: S1 normal and S2 normal GI Common normals: Normal to inspection, nondistended, normoactive bowel sounds present, soft to palpation, non-tender and no hepatosplenomegaly Palpation: soft and no hepatosplenomegaly Extremity Common normals: no clubbing, cyanosis or edema Neuro Common normals: oriented x3, moves all extremities and no focal motor deficits Psych Common normals: mental status grossly normal, denies hallucinations, denies homicidal ideation and denies suicidal ideation Internal Medicine - PN: Obj Da Labs Labs: Laboratory Results - last 24 hr 02/02/23 04:45 WBC 13.6 H RBC 3.20 L Hgb 10.9 L Hct 33.8 L MCV 105.6 H MCH 34.1 H MCHC 32.2 RDW 14.1 Plt Count 175 MPV 8.9 L Neut % (Auto) 79.2 H Lymph % (Auto) 14.7 L [place] % (Auto) 4.9 Eos % (Auto) 0.5 L Baso % (Auto) 0.2 Neut # (Auto) 10.8 H Lymph # (Auto) 2.0 [place] # (Auto) 0.7 Eos # (Auto) 0.1 Baso # (Auto) 0.0 Abs Immat Gran (auto) 0.07 H Imm/Tot Granulo (auto) 0.5 Sodium 132 L Potassium 4.0 Chloride 102 Carbon Dioxide 23.9 Anion Gap 10.1 BUN 13.0 Creatinine 0.85 Est GFR ( Amer) >60 Est GFR (Non-Af Amer) >60 BUN/Creatinine Ratio 15.3 Glucose 112 H Calcium 8.1 L Total Bilirubin 0.5 AST 19 ALT 26 Alkaline Phosphatase 56 Total Protein 5.9 L Albumin 2.4 L Globulin 3.5 Albumin/Globulin Ratio 0.7
--- NOTE | 2023-02-02 14:44 | DIETREC ---
Nutrition Recommendations: 1. Remove 1800 Calorie diet restriction.
--- NOTE | 2023-02-02 15:06 | SWNOTE1 ---
SW met with pt to discuss dc needs. Pt lives at home with her daughter, she does not wear home oxygen. Pt uses a cane at home most of the time. She has been doing therapy with a walker. SW let her know a walker was recommended, pt is open to this. Pt also mentioned getting a wheelchair. SW provided pt with the criteria to get a wheelchair and SW is not sure she will meet criteria. Pt kept criteria and going to talk with daughter and see what doctor says as well. SW also let her know home health was recommended, pt is agreeable to this as well. SW provided pt with a list from medicare.gov with star ratings. Pt is going to review and let her daughter looks over this evening and she will let SW know tomorrow.
--- NOTE | 2023-02-02 15:12 | RESP.RT ---
titrated down to 1L
[2023-02-02] MEDS: PRAMIPEXOLE 1 MG TABLET 0.5 MG PO (20:44)
[2023-02-02] MEDS: ATORVASTATIN CALCIUM 20 MG TABLET PO (20:45)
[2023-02-02] MEDS: AMITRIPTYLINE HCL 25 MG TABLET PO (20:46)
[2023-02-03] VITALS (12 sets, daily range): BP systolic 129; BP diastolic 74; PULSE 70–86; RESP 16–18; TEMP 36.9; O2SAT 92–98
[2023-02-03] MEDS: CEFTRIAXONE 1,000 MG in 0.9 % SODIUM CHLORIDE 50 ML 100 MG IV (04:32)
[2023-02-03 04:36] LABS: Basophils Percent Auto 0.3 % (0.2-2.0); Eosinophils Absolute Auto 0.1 10^3/uL (0.0-0.7); Eosinophils Percent Auto 1.1 % (0.9-7.0); Hematocrit 35.6 % (36.0-48.0); Hemoglobin 11.3 g/dL (12.0-16.0); Immature Granulocytes Abs Auto 0.07 10^3/uL (0.00-0.03); Immature Granulocytes Pct Auto 0.6 % (0.0-0.5); Lymphocytes Absolute Auto 1.7 10^3/uL (1.2-3.8); Lymphocytes Percent Auto 15.2 % (20.5-60.0); Mean Corpuscular HGB Conc 31.7 g/dL (29.9-35.2); Mean Corpuscular Volume 107.2 fL (81.0-99.0); Mean Platelet Volume 9.1 fL (9.5-13.5); Monocytes Absolute Auto 0.6 10^3/uL (0.3-0.8); Monocytes Percent Auto 5.6 % (1.7-12.0); Neutrophils Absolute Auto 8.9 10^3/uL (1.4-6.5); Neutrophils Percent Auto 77.2 % (43.0-75.0); Platelet Count 204 10^3/uL (150-450); Red Blood Count 3.32 10^6/uL (4.20-5.40); Red Cell Distribution Width 13.8 % (11.0-15.0); White Blood Count 11.5 10^3/uL (4.0-11.0)
[2023-02-03 04:53] LABS: Alanine Aminotransferase 29 U/L (14-59); Albumin Globulin Ratio 0.7; Albumin Level 2.8 g/dL (3.4-5.0); Alkaline Phosphatase 75 U/L (46-116); Anion Gap 14.5; Aspartate Amino Transferase 23 U/L (15-37); BUN Creatinine Ratio 12.4; Bilirubin Total 0.5 mg/dL (0.2-1.0); Calcium 8.8 mg/dL (8.5-10.1); Carbon Dioxide 22.5 mmol/L (21.0-32.0); Chloride 101 mmol/L (98-107); Estimated GFR (African America >60 (>=60); Estimated GFR (Non-African Ame 55 (>=60); Globulin 4.1 g/dL; Glucose 130 mg/dL (74-106); Sodium 134 mmol/L (136-145); Total Protein 6.9 g/dL (6.4-8.2)
[2023-02-03] MEDS: AZITHROMYCIN 500 MG in 0.9 % SODIUM CHLORIDE 250 ML 250 MG IV (05:24)
[2023-02-03] MEDS: ONDANSETRON PF 4 MG/2 ML VIAL IV (05:48)
--- NOTE | 2023-02-03 08:00 | P.DS_ITS ---
DS: Providers Provider Date of admission: 02/01/23 06:45 Primary care physician: Ganesh Samuel MD Consults: 02/01/23 07:41 Occupational Therapy Eval and Treat Routine Reason for consultation: Weakness Physical Therapy Eval and Treat Routine Reason for consultation: Weakness 02/03/23 07:53 Consult to Shredded Filler Hopper Feeder Routine Reason for consult:: Home health DS: Diagnosis Discharge Diagnosis (1) Sepsis: Qualifiers: Sepsis acute organ dysfunction status: with acute organ dysfunction Sepsis type: sepsis due to unspecified organism Severe sepsis acute organ dysfunction type: acute respiratory failure (2) Acute respiratory failure with hypoxia: (3) Pneumonia: Qualifiers: Laterality: bilateral Pneumonia type: due to unspecified organism (4) Cough with hemoptysis: (5) Hyponatremia: (6) (HFpEF) heart failure with preserved ejection fraction: (7) Atrial fibrillation: (8) H/O stroke without residual deficits: (9) CAD (coronary artery disease): (10) HTN (hypertension): DS: Summary Hospital Course Hospital Course: patient admitted with increasing shortness of breath and found to have multifocal pneumonia. Patient with acute hypoxic respiratory failure, placed on supplemental oxygen, no microorganism isolated, patient was placed on Zithromax and Rocephin, patient improved daily, her oxygen level is down to 1 L of supplemental oxygen with a 95% saturation. So this morning we will try her off of supplemental oxygen, if she is ambulating without hypoxia without supplemental oxygen she can be discharged home in improving condition. Medications see list. Follow-up with me in the office next week. Recommend home health and patient is agreeable. Oced-tu-hvpv evaluation completed today. Home health evaluation necessary for patient's safety Status at Discharge Functional status at discharge: uses cane/walker Overall status at discharge: patient is not back to baseline Time Spent with Patient Time attestation: Total time spent providing and/or coordinating discharge services: Exam Constitutional Vital Signs, click to edit/add: Last Vital Signs Temp 98.4 F 02/03/23 05:03 Pulse 81 02/03/23 05:50 Resp 18 02/03/23 05:03 BP 129/74 02/03/23 05:03 Pulse Ox 96 02/03/23 07:35 O2 Del Method Nasal Cannula 02/03/23 07:35 O2 Flow Rate 1 02/03/23 07:35 Documenting provider has reviewed patient's vital signs: yes Common normals: no apparent distress HENMT Common normals: normocephalic and moist oral mucous membranes Respiratory Effort & inspection: no respiratory distress Auscultation: rhonchi Cardio Rhythm: abnormal rhythm GI Common normals: Normal to inspection, nondistended, normoactive bowel sounds present, soft to palpation and non-tender DS: Data Data Completed and Pending Labs on day of discharge: Labs from last 24 hours 02/03/23 04:25 WBC 11.5 H RBC 3.32 L Hgb 11.3 L Hct 35.6 L MCV 107.2 H MCH 34.0 MCHC 31.7 RDW 13.8 Plt Count 204 MPV 9.1 L Neut % (Auto) 77.2 H Lymph % (Auto) 15.2 L [place] % (Auto) 5.6 Eos % (Auto) 1.1 Baso % (Auto) 0.3 Neut # (Auto) 8.9 H Lymph # (Auto) 1.7 [place] # (Auto) 0.6 Eos # (Auto) 0.1 Baso # (Auto) 0.0 Abs Immat Gran (auto) 0.07 H Imm/Tot Granulo (auto) 0.6 H Sodium 134 L Potassium 4.0 Chloride 101 Carbon Dioxide 22.5 Anion Gap 14.5 BUN 12.0 Creatinine 0.97 Est GFR ( Amer) >60 Est GFR (Non-Af Amer) 55 L BUN/Creatinine Ratio 12.4 Glucose 130 H Calcium 8.8 Total Bilirubin 0.5 AST 23 ALT 29 Alkaline Phosphatase 75 Total Protein 6.9 Albumin 2.8 L Globulin 4.1 Albumin/Globulin Ratio 0.7 Discharge Plan Discharge Condition: Good Discharge Medications: New isosorbide mononitrate 30 mg Tablet Extended Release 24 Hr 30 mg PO QD Qty: 30 11RF Eliquis 2.5 mg tablet 2.5 mg PO BID Qty: 60 11RF furosemide [Lasix] 20 mg tablet 20 mg PO DAILY Qty: 30 11RF cefdinir 300 mg capsule 300 mg PO BID 10 Days Qty: 20 0RF Continued amitriptyline 25 mg tablet 25 mg PO BEDTIME amlodipine 10 mg tablet 10 mg PO DAILY carvedilol 12.5 mg tablet 12.5 mg PO Q12H hydrocodone-acetaminophen 5-325 mg tablet 1 tab PO Q12H lorazepam 1 mg tablet 1 mg PO Q12H Patient Comments: 1/2-1 tablet twice daily montelukast 10 mg tablet 10 mg PO DAILY omeprazole 40 mg capsule,delayed release(DR/EC) 40 mg PO BID polyethylene glycol 3350 [ClearLax] 17 gram/dose powder 17 g PO DAILY PRN (Reason: constipation) Hold Instructions: Patient not using potassium chloride [Klor-Con M20] 20 mEq tablet,ER particles/crystals 20 meq PO DAILY pramipexole 0.5 mg tablet 0.5 mg PO DAILY rosuvastatin 5 mg tablet 5 mg PO DAILY tizanidine 4 mg tablet 4 mg PO Q12H valsartan 40 mg tablet 40 mg PO DAILY aspirin 81 mg capsule 81 mg PO DAILY sennosides [senna] 8.6 mg tablet 17.2 mg PO BID Rx Instructions: 2 tabs BID Discontinued Eliquis 5 mg tablet 5 mg PO Q12H furosemide 20 mg tablet 40 mg PO DAILY isosorbide mononitrate 60 mg tablet extended release 24 hr 60 mg PO DAILY Forms: Portal Instructions Referrals: Ganesh Samuel MD [Primary Care Provider] - 1 week
[2023-02-03] MEDS: IPRATROPIUM/ALBUTEROL SULFATE 3 ML AMPUL.NEB IH (08:27)
[2023-02-03] MEDS: ASPIRIN 81 MG TAB.CHEW PO (08:43)
[2023-02-03] MEDS: ISOSORBIDE MONONITRATE 30 MG TAB.ER.24H PO (08:43)
[2023-02-03] MEDS: DOCUSATE SODIUM 100 MG CAPSULE PO (08:43)
[2023-02-03] MEDS: TIZANIDINE HCL 4 MG TABLET PO (08:43)
[2023-02-03] MEDS: POTASSIUM CHLORIDE 10 MEQ ER TABLET 20 MEQ PO (08:44)
[2023-02-03] MEDS: GUAIFENESIN 600 MG TAB.ER.12H PO (08:44)
[2023-02-03] MEDS: OMEPRAZOLE 40 MG CAPSULE.DR PO (08:44)
[2023-02-03] MEDS: CARVEDILOL 12.5 MG TABLET PO (08:44)
[2023-02-03] MEDS: SENNOSIDES 8.6 MG TABLET 17.2 MG PO (08:44)
[2023-02-03] MEDS: MONTELUKAST SODIUM 10 MG TABLET PO (08:44)
[2023-02-03] MEDS: LORAZEPAM 1 MG TABLET PO (08:44)
[2023-02-03] MEDS: AMLODIPINE BESYLATE 5 MG TABLET 10 MG PO (08:45)
[2023-02-03] MEDS: APIXABAN 5 MG TABLET PO (08:45)
--- NOTE | 2023-02-03 10:54 | CM.NOTE ---
Important Message From Medicare discussed with pt, pt verbalizes understanding and signs form. Original given to pt and copy placed on pt's chart.
--- NOTE | 2023-02-03 10:54 | PT.DAILY ---
Physical Therapy Daily Note PT Daily Note/Assess Start: 02/02/23 11:49 Freq: Status: Active Protocol: Document 02/03/23 10:52 DEVIN (Rec: 02/03/23 10:54 DEVIN [id number]) Physical Therapy Daily Note/Assessment Time In/Time Out Time In 10:00 Time Out 10:17 Pain In Pain N/A Pain Out Pain N/A Subjective Subjective Pt sitting in BS chair upon arrival. Planned dc home today . Therapeutic Exercise Time Therapeutic Exercise Minutes (minutes) 5 Therapeutic Exercise Units 0 Therapeutic Exercise Treatment Therapeutic Exercise Treatment Standing HR, marches, HS curls , and hip flexion 10x ea to improve strength and functional mobility prior to gait. Ex complete standing at RW with bilat UE support. Therapeutic Activity Time Therapeutic Activity Minutes (minutes) 8 Therapeutic Activity Units 1 Therapeutic Activity Treatment Bed Mobility Ability Standby Assistance Chair Transfer Ability Standby Assistance Therapeutic Activity Comments Pt performs sit>stand with SUP . Standing ex complete at RW while demonstrating Fair+ standing balance as she needs bilat UE support with these. Pt amb 100' with RW, SBA. Performs sit>supine transfer with SUP. Remains supine with call light in reach and needs met. Total Physical Therapy Time Total Therapy Minutes 13 Total Physical Therapy Units 1 Summary Daily Note Summary Improved gait endurance and transfer ability today.
--- NOTE | 2023-02-04 12:21 | CM.DCFOLLOWU ---
Person spoke with: [place] and pt's daughter How are you feeling? Better just tired How is your pain? No pain Did you understand your discharge instructions? Yes Do you have any questions about your discharge instructions? questions answered regarding medications Were you given any prescriptions at discharge? yes Were you able to get your prescriptions filled? Yes Do you understand how to take your medications as ordered? Yes Do you have any questions about your follow up appointment and do you plan to keep your follow up appointment? No questions and will f/u Is there anything else that you would like to discuss? No Questions/Comments/Concerns/Other:
== END 2023-02-03 13:45 | disposition home health service (06) | DRG 871 ==
LOC: ER 06:30 → MS 06:48
PROVIDERS: Internal Medicine; Admitting Provider Family Medicine; Emergency Provider Emergency Medicine; PCP Family Medicine; Visit Provider Family Medicine
DX: A41.9 Sepsis, unspecified organism (principal); J18.9 Pneumonia, unspecified organism; J96.01 Acute respiratory failure with hypoxia; R04.2 Hemoptysis; E87.1 Hypo-osmolality and hyponatremia; I48.19 Other persistent atrial fibrillation; I50.32 Chronic diastolic (congestive) heart failure; I11.0 Hypertensive heart disease with heart failure; R65.20 Severe sepsis without septic shock; I25.10 Atherosclerotic heart disease of native coronary artery without angina pectoris; Z79.01 Long term (current) use of anticoagulants; Z79.899 Other long term (current) drug therapy; Z79.82 Long term (current) use of aspirin; Z95.1 Presence of aortocoronary bypass graft; Z86.73 Personal history of transient ischemic attack (TIA), and cerebral infarction without residual deficits; Z88.1 Allergy status to other antibiotic agents; Z83.3 Family history of diabetes mellitus; Z82.49 Family history of ischemic heart disease and other diseases of the circulatory system; Z82.5 Family history of asthma and other chronic lower respiratory diseases
CPT/HCPCS: 0202U; 36415; 71045; 71250; 80053; 80164; 83880; 84484; 85025; 85610; 85730; 87040; 93005; 94640; 94667; 94668; 94761; 96365; 96366; 96367; 96368; 96375; 97161; 97165; 97530; 97535; 99285; J0456

== ENCOUNTER 2023-02-26 09:33 | Outpatient (OUT) | payer MEDICARE, OTHER, SELFPAY ==
[2023-02-26 10:00] LABS: Basophils Percent Auto 0.4 % (0.2-2.0); Eosinophils Absolute Auto 0.2 10^3/uL (0.0-0.7); Eosinophils Percent Auto 1.4 % (0.9-7.0); Hematocrit 40.3 % (36.0-48.0); Hemoglobin 13.3 g/dL (12.0-16.0); Immature Granulocytes Abs Auto 0.05 10^3/uL (0.00-0.03); Immature Granulocytes Pct Auto 0.5 % (0.0-0.5); Lymphocytes Absolute Auto 2.4 10^3/uL (1.2-3.8); Mean Corpuscular Hemoglobin 34.7 pg (26.7-34.0); Mean Corpuscular Volume 105.2 fL (81.0-99.0); Mean Platelet Volume 9.1 fL (9.5-13.5); Monocytes Absolute Auto 0.8 10^3/uL (0.3-0.8); Neutrophils Absolute Auto 6.9 10^3/uL (1.4-6.5); Neutrophils Percent Auto 66.7 % (43.0-75.0); Platelet Count 256 10^3/uL (150-450); Red Blood Count 3.83 10^6/uL (4.20-5.40); White Blood Count 10.4 10^3/uL (4.0-11.0)
[2023-02-26 11:09] LABS: Alanine Aminotransferase 37 U/L (14-59); Albumin Globulin Ratio 0.9; Albumin Level 3.7 g/dL (3.4-5.0); Alkaline Phosphatase 79 U/L (46-116); Anion Gap 18.3; Aspartate Amino Transferase 34 U/L (15-37); BUN Creatinine Ratio 12.5; Bilirubin Total 0.3 mg/dL (0.2-1.0); Calcium 9.2 mg/dL (8.5-10.1); Carbon Dioxide 23.1 mmol/L (21.0-32.0); Chloride 107 mmol/L (98-107); Chol HDL Ratio 2.7; Cholesterol 180 mg/dL (<=200); Estimated GFR (African America >60 (>=60); Estimated GFR (Non-African Ame 56 (>=60); Glucose 114 mg/dL (74-106); HDL Cholesterol 66 mg/dL (40-60); Potassium 4.4 mmol/L (3.5-5.1); Sodium 144 mmol/L (136-145); Thyroid Stimulating Hormone 0.873 uIU/mL (0.358-3.740); Total Protein 7.7 g/dL (6.4-8.2); Triglycerides 133 mg/dL (<=150); VLDL CHOLESTEROL 26.6 mg/dL
[2023-02-26 12:32] LABS: Free T4 1.09 ng/dL (0.76-1.46)
== END 2023-02-26 09:34 | disposition home or self-care (01) ==
LOC: LAB 09:34
PROVIDERS: PCP Family Medicine; Visit Provider Family Medicine
DX: I25.10 Atherosclerotic heart disease of native coronary artery without angina pectoris (principal); J18.9 Pneumonia, unspecified organism; E78.5 Hyperlipidemia, unspecified; I11.0 Hypertensive heart disease with heart failure; I50.30 Unspecified diastolic (congestive) heart failure
CPT/HCPCS: 36415; 80053; 80061; 83880; 84439; 84443; 85025

== ENCOUNTER 2023-03-15 11:24 | Outpatient (OUT) | payer MEDICARE, OTHER, SELFPAY ==
--- NOTE | 2023-03-15 | XR_ITS ---
The [address] [address] Patient Name: ABDIRAHMAN GOMEZ MRN: [id number] date: 1940 Sex: F Assigned Patient Location: LAB Current Patient Location: LAB Accession/Order Number: [id number] Exam Date: 03/15/2023 11:36 Report Date: 03/15/2023 12:18 At the request of: IRISH FAUSTIN Procedure: XR chest 2V EXAM: XR chest 2V HISTORY: Multifocal pneumonia J18.9 . Follow-up study. COMPARISON: 02/01/2023 TECHNIQUE: Upright PA and lateral chest x-ray FINDINGS: There has been interval clearing of the patchy perihilar infiltration is noted in the prior study. A small amount of pleural and parenchymal scarring is seen at the apices. No acute infiltrate, effusion or pneumothorax is identified. Multiple sternal wire sutures are present, as well as a left-sided transvenous pacemaker. The heart is not enlarged and the vasculature is not distended. The osseous structures are grossly intact. XR/XR chest 2V IMPRESSION: Interval clearing of the right lung. There is no evidence of a focal infiltrate or cardiac decompensation this time, and the overall appearance of the chest is otherwise unchanged. Electronically authenticated by: BLACK TOLBERT Date: 03/15/2023 12:18
== END 2023-03-15 11:25 | disposition home or self-care (01) ==
LOC: LAB 11:25
PROVIDERS: PCP Family Medicine; Visit Provider Family Medicine
DX: J18.9 Pneumonia, unspecified organism (principal)
CPT/HCPCS: 71046

== ENCOUNTER 2023-05-10 13:05 | Outpatient (OUT) | payer MEDICARE, OTHER, SELFPAY ==
--- NOTE | 2023-05-10 | MM_ITS ---
Patient Name: ABDIRAHMAN GOMEZ MR#: [id number] : 1940 Exam Date: 05/10/2023 Ordering Doctor: DR Ganesh Samuel . RADIOLOGY REPORT PROCEDURE: MM TOMOSYNTHESIS SCREENING BI COMPARISON: MG MAMM SCREEN 3D MIL[place] CAD, 10/27/2021. MG MAMM [place] DIAG W CAD, 02/17/2018. MG MAMM SCREEN [place] W CAD, 11/13/2016. INDICATIONS: Screening Calculator Name NCI Breast Cancer Risk Assessment Tool 5 Year Breast Cancer Risk 1.30% Lifetime Breast Cancer Risk 1.70% Personal Breast Cancer No Personal Ovarian Cancer No Treatments None Family Cancers None LOCATION: The [facility] BREAST COMPOSITION: Almost entirely fatty. FINDINGS: DIAGNOSTIC CATEGORY 2--BENIGN FINDING: RIGHT BREAST: No significant suspicious finding. Scattered benign-appearing calcifications are present. No significant change has occurred. LEFT BREAST: No significant suspicious finding. Scattered benign-appearing calcifications are present. No significant change has occurred. RECOMMENDATIONS: ROUTINE MAMMOGRAM AND CLINICAL EVALUATION IN 12 MONTHS. PLEASE NOTE: A NORMAL MAMMOGRAM DOES NOT EXCLUDE THE POSSIBILITY OF BREAST CANCER. A CLINICALLY SUSPICIOUS PALPABLE LUMP SHOULD BE BIOPSIED. Dictated by: Fly Cantu M.D. on 05/13/2023 at 09:21 Approved by: Fly Cantu M.D. on 05/13/2023 at 09:23
--- NOTE | 2023-05-10 13:13 | XR_ITS ---
[address] [address] Patient Name: ABDIRAHMAN GOMEZ MRN: [facility]:[id number] date: 1940 Sex: F Assigned Patient Location: MAMMO Current Patient Location: Accession/Order Number: [id number] Exam Date: 05/10/2023 13:40 Report Date: 05/11/2023 09:16 At the request of: IRISH FAUSTIN Procedure: XR lumbar spine 2-3V EXAM: XR lumbar spine 2-3V HISTORY: Dorsalgia M54.9 COMPARISON: None. TECHNIQUE: 3 views FINDINGS/IMPRESSION: Satisfactory alignment. Maintained vertebral body heights. Mild multilevel endplate degenerative changes and disc disease of L4-S1. No acute fracture or significant subluxation. Scattered calcified atherosclerotic disease of aorta. Electronically authenticated by: JOSEPH LY Date: 05/11/2023 09:16
--- NOTE | 2023-05-10 13:13 | XR_ITS ---
The [address] [address] Patient Name: ABDIRAHMAN GOMEZ MRN: [id number] date: 1940 Sex: F Assigned Patient Location: MAMMO Current Patient Location: MAMMO Accession/Order Number: [id number] Exam Date: 05/10/2023 13:40 Report Date: 05/11/2023 21:39 At the request of: IRISH FAUSTIN Procedure: XR hip LT 2V w/ pelvis Exam: Radiographs: XR hip LT 2V w/ pelvis Reason for exam: Dorsalgia M54.9 Comparison: None XR/XR hip LT 2V w/ pelvis IMPRESSION: Left total hip arthroplasty, hardware is intact and appropriately positioned. Lower extremity atherosclerotic calcifications. Remainder of the left hip radiographs is unremarkable. Electronically authenticated by: CHIO PAULINO Date: 05/11/2023 21:39
== END 2023-05-10 13:06 | disposition home or self-care (01) ==
LOC: MAMMO 13:05
PROVIDERS: PCP Family Medicine; Visit Provider Family Medicine
DX: Z12.31 Encounter for screening mammogram for malignant neoplasm of breast (principal); M54.9 Dorsalgia, unspecified; M51.9 Unspecified thoracic, thoracolumbar and lumbosacral intervertebral disc disorder
CPT/HCPCS: 72100; 73502; 77063; 77067

== ENCOUNTER 2023-05-18 11:34 | Outpatient (OUT) | payer MEDICARE, OTHER, SELFPAY ==
--- NOTE | 2023-05-18 13:28 | CA_ITS ---
Patient Name: ABDIRAHMAN GOMEZ MR#: [id number] : 1940 Exam Date: 05/18/2023 Ordering Doctor: DR Alexandria Santos M.D. ECHOCARDIOGRAM REPORT PROCEDURE: CA ECHO DOPPLER COMPLETE INDICATIONS: Nonrheumatic tricuspid insufficiency COMPARISON: None. DESCRIPTION: COMPLETE ECHOCARDIOGRAM Real-time transthoracic echocardiography with 2D, M-mode, spectral and color flow Doppler performed. QUALITY: Technical quality was good. LEFT VENTRICLE: Normal chamber size. Normal left ventricular wall thickness. LV EF: Global left ventricular systolic function is normal. Visual estimation of left ventricular ejection fraction is 55%. DIASTOLIC: Diastolic function is indeterminate. ATRIAL SEPTUM: Inadequately seen. LEFT ATRIUM: Mild dilatation. RIGHT ATRIUM: Moderate dilatation. RIGHT VENTRICLE: Moderate dilatation. Normal right ventricular systolic function. Pacer wire present. TRICUSPID VALVE: Normal mobility and thickness. Severe regurgitation. Moderate pulmonary hypertension. RVSP 45mmHg MITRAL VALVE: Normal mobility and thickness. No evidence of mitral valve stenosis. There is no mitral annular calcification. Mild mitral regurgitation. AORTIC VALVE: Normal trileaflet appearance. Mildly calcified aortic valve. No significant aortic valve stenosis. Trivial aortic regurgitation. AORTIC ROOT: Normal diameter and appearance. PULMONIC VALVE: Normal thickness and mobility. No stenosis. Mild regurgitation. PERICARDIUM: No evidence of pericardial effusion. IVC: Collapses with inspirations. Normal size. CONCLUSION: 1. Global left ventricular systolic function is normal; visually estimated ejection fraction is 55 to 60% 2. The right ventricle is moderately dilated with normal systolic function 3. Diastolic function is indeterminate 4. Biatrial enlargement 5. Severe tricuspid regurgitation 6. Moderately elevated right ventricular systolic pressure; RVSP 45 mmHg 7. Mild mitral regurgitation 8. Mild pulmonic regurgitation Adult Echocardiography Procedure Report Left Ventricle LVEDD (3.7 - 5.6 cm): 4.03 cm LVESD (2.2 - 4.0 cm): 2.68 cm LVIVS thickness (0.6 - 1.2 cm): 0.83 cm LVPW thickness (0.5 - 1.0 cm): 0.89 cm e': 0.11 m/s E - e': 7.08 LVOT Max Gradient: 0.92 mm[Hg] LVOT Area (cm2): 0.48 m/s Peak Velocity (LVOT): 0.48 m/s Mean Velocity (LVOT): 0.34 m/s LVOT Diameter 1.91 cm Left Atrium LA Volume Index (2D A2C): 40.15 ml/m2 Left Atrium Systolic Dimension: 4.44 cm Mitral Valve MV E to A Ratio: 2.66, 2.68 Mitral Valve A-Wave Peak Velocity: 0.30 m/s Mitral Valve E-Wave Peak Velocity: 0.79 m/s Right Ventricle RV Internal Diastolic Dimension: 4.37 cm Aorta AO Root Diam: 2.67 cm Ascending Ao Diam: 2.60 cm Aortic Valve AoV Area (Peak Luis): 1.38 cm2, 1.38 cm2 AoV Area (VTI): 1.36 cm2, 1.36 cm2 Peak Velocity(Antegrade Flow): 0.99 m/s Peak Gradient(Antegrade Flow): 3.95 mm[Hg] Mean Velocity(Antegrade Flow): 0.70 m/s Mean Gradient(Antegrade Flow): 2.08 mm[Hg] Velocity Time Integral: 21.16 cm Tricuspid Valve Peak Velocity (Regurgitant Flow): 2.87 m/s, 3.22 m/s, 2.63 m/s, 3.10 m/s Pulmonic Valve Peak Velocity: 0.63 m/s Peak Gradient: 1.58 mm[Hg] Right Atrium Right Atrium Systolic Pressure: 69.43 ml, 69.43 ml Dictated by: Alexandria Santos M.D. on 05/19/2023 at 16:07 Approved by: Alexandria Santos M.D. on 05/19/2023 at 16:13
== END 2023-05-18 11:35 | disposition home or self-care (01) ==
LOC: CARD 11:36
PROVIDERS: PCP Family Medicine; Visit Provider Internal Medicine Interventional Cardiology
DX: I36.1 Nonrheumatic tricuspid (valve) insufficiency (principal)
CPT/HCPCS: 93306

== ENCOUNTER 2023-07-14 12:21 | Outpatient (OUT) | payer MEDICARE, OTHER, SELFPAY ==
--- OUTSIDE RECORDS SUMMARY | 2023-07-14 12:25 | XMS_ITS | CCD ---
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 Name Role Phone UNKNOWN, PHYSICIAN Referring Unavailable BRIDGER MONTANA Attending Unavailable KIM ARCE Admitting Unavailable IRISH FAUSTIN Primary Care Unavailable RAMIN, DR COBURN Admitting Unavailable RAMIN, DR COBURN Attending Unavailable WHITLEYY, DR COBURN Primary Care Unavailable WHITLEYY, DR COBURN Consulting Unavailable RAMIN, DR COBURN Admitting Unavailable RAMIN, DR COBURN Attending Unavailable RAMIN, DR COBURN Primary Care Unavailable RAMIN, DR COBURN Consulting Unavailable GLEN JEAN, DR BRIE Oseguera Consulting Unavailable VENUS TONG Admitting Unavailable VENUS TONG Attending Unavailable RAMIN, DR COBURN Primary Care Unavailable VENUS TONG Consulting Unavailable RAMIN, DR COBURN Primary Care Unavailable TERESA, DR JOSEPH Palacios Consulting Unavailable TERESA, DR JOSEPH Palacios Admitting Unavailable TERESA, DR JOSEPH Palacios Attending Unavailable VENUS TONG Admitting Unavailable VENUS TONG Attending Unavailable RAMIN, DR COBURN Primary Care Unavailable VENUS TONG Admitting Unavailable VENUS TONG Attending Unavailable RAMIN, DR COBURN Primary Care Unavailable MD Irish Faustin Primary Care Provider [phone] MD Chema Milner Admit Provider MD Frida De La Cruz Attending Provider MD Stiven Zaman Admit Provider MD Stiven Zaman Attending Provider [phone] PARISA Santillan Other Provider Unavailable PARISA Calle Other Provider Unavailable PARISA Shah Other Provider Unavailable PARISA Nettles Other Provider Unavailable PARISA Nick Other Provider Unavailable PARISA Aguiar Other Provider Unavailable MD Frida De aL Cruz Other Provider MD Josue Espitia Other Provider KIM Wallace Other Provider DO Dewayne Rader Other Provider MD Quinton [place] Other Provider DO Quinn Ortiz Other Provider MD Nathaniel Castillo Other Provider MD Grace Greene Other Provider Debora, ANP-BC Nadine Other Provider MD Aminata Pedraza Other Provider MD Boaz Castro Other Provider MD Jose Martin Lou Other Provider MD Olesya Toth Other Provider DO Demetrius Gutierrez Other Provider MD Hortencia Daigle Other Provider MD Alex Dominguez Other Provider NELSON Restrepo-C Devora Rodarte Other Provider MD Ga Kwong Other Provider MD Maurilio Banks Other Provider MD Chema Milner Other Provider DO Herminia Andrew Other Provider DO Johnny Benson Other Provider DO Rober Perez Other Provider KIM Cifuentes Other Provider DO Devante Lafleur Other Provider MD Malu Roblero Other Provider KIM Thompson Other Provider PARISA Arcos Other Provider Unavailable Stiven Zaman Admitting Unavailable Stiven Zaman Attending Unavailable Irish Faustin Primary Care Unavailable Barb Santillan Consulting Unavailable Leta Calle Consulting Unavailable Faina Shah Consulting Unavailable Kell Nettles Consulting Unavailable Leilani Nick Consulting Unavailable Amina Aguiar Consulting Unavailable Frida De La Cruz Consulting Unavailable NupruJosue K Consulting Unavailable Ramila Wallace M Consulting Unavailable Dewayne Rader Consulting Unavailable Quinton [place] Consulting Unavailable Quinn Ortiz Consulting UnavailNathaniel Franklin Consulting Unavailable Grace Greene Consulting Unavailable Nadine Cazares Consulting Unavailable Aminata Pedraza Consulting Unavailable Boaz Castro Consulting Unavailable Jose Martin Lou Consulting Unavailable Olesya Toth Consulting Unavailable Demetrius Gutierrez Consulting Unavailable Hortencia Daigle Consulting Unavailable Alex Dominguez Consulting Unavailable Devora Restrepo Consulting Unavailable DoGa timmons Consulting Unavailab Maurilio Alicia Consulting Unavailable Annia, Chema Consulting Unavailable Herminia Andrew Consulting Unavailable Johnny Benson Consulting Unavailable Rober Perez Consulting Unavailable ObBrandi sorensen Consulting Unavailable Devante Lafleur Consulting Unavailable DaromarMalu M Consulting Unavailable Monisha Thompson Consulting Unavailable Meghna Arcos Consulting Unavailable Annia, Chema Admitting Unavailable Irish Faustin Primary Care Unavailable Frida De La Cruz Attending Unavailable Gera Claros Consulting Unavailable Dr. Irish Faustin Primary Care Unavail able Dr. Yoav Prado Attending Unavaila Dr. Irish Vincent Primary Care Unavail Dr. Irish Hanson Primary Care Unavail able ALEXANDRIA SANTOS Attending Unavailable JAILYN MEANS Attending Unavailable SARABJIT VICENTE Referring Unavailable ALEXANDRIA SANTOS Attending Unavailable SARABJIT VICENTE Referring Unavailable Allergies Allergy Classification Reported Allergen(s) Allergy Type Date of Onset Reaction(s) Facility (1 source) Adhesive agent Drug allergy (disorder) 9 [facility] Rep[facility] (3 sources) Ciprofloxacin Drug Allergy 6 [facility] (5 sources) Codeine; Translations: [CODEINE] Drug Allergy 9 Itching [facility] (1 source) paper tape; Translations: [paper tape] Propensity to adverse reactions (disorder) 2 [facility] (1 source) Desonide Drug Allergy The Repository (4 sources) Ciprofloxacin; Translations: [ciprofloxacin] Drug Allergy 2 Redness of Skin [facility] (1 source) Codeine Drug Allergy 2 [facility] Repository (1 source) rosuvastatin; Translations: [ROSUVASTATIN] Drug Allergy 5 [facility] (1 source) ADHESIVE TAPE-SILICONES; Translations: [ADHESIVE TAPE-SILICONES] Propensity to adverse reactions to drug (disorder) 5 [facility] Medications Current Medications Medication Drug Class(es) Dates Sig (Normalized) Sig (Original) acetaminophen 500 mg oral tablet (1 source) Start: 06-24-2022 take 500 mg by mouth every four hours Acetaminophen Active 500 MG PO Q4H 90 June 24, 2022 12:00am acetaminophen 325 mg / HYDROcodone bitartrate 5 mg oral tablet (3 sources) Opioid Agonist Start: 06-24-2022 take 1 tablet by mouth twice daily Hydrocodone-Acetami nophen Active 1 TAB PO Twice daily 14 7 June 24, 2022 Start: 06-09-2022 End: 06-24-2022 take 1 tablet by mouth every twelve hours Hydrocodone-Acetaminophen Discontinued 1 TAB PO Q12H June 09, 2022 12:00am June 24, 2022 9:18am amLODIPine 10 mg oral tablet (3 sources) Dihydropyridine Calcium Channel Kirby Start: 06-09-2022 End: 06-24-2022 take 10 mg by mouth at bedtime Amlodipine Active 10 MG PO Bedtime 30 30 June 24, 2022 12:00am apixaban 5 mg oral tablet (3 sources) Factor Xa Inhibitor Start: 06-14-2022 End: 06-24-2022 take 1 tablet by mouth twice daily Apixaban (Eliquis) 5 mg Tablet Active 5 MG PO Twice daily 60 June 24, 2022 12:00am atorvastatin 80 mg oral tablet (3 sources) HMG-CoA Reductase Inhibitor Start: 06-12-2022 End: 06-24-2022 take 80 mg by mouth at bedtime Atorvastatin Active 80 MG PO Bedtime 30 June 24, 2022 12:00am carvedilol 12.5 mg oral tablet (3 sources) alpha-Adrenergic Kirby, beta-Adrenergic Kirby Start: 06-09-2022 End: 06-24-2022 take 12.5 mg by mouth twice daily Carvedilol Active 12.5 MG PO Twice daily 60 June 24, 2022 12:00am cholecalciferol 0.125 mg oral tablet (3 sources) Vitamin D Start: 06-09-2022 End: 06-24-2022 take 1 tablet by mouth once daily Cholecalciferol (Vitamin D3) (Vitamin D3) 125 mcg (5,000 unit) Tablet Active 125 MCG PO Daily June 24, 2022 12:00am furosemide 20 mg oral tablet (3 sources) Loop Diuretic Start: 06-09-2022 End: 06-24-2022 take 20 mg by mouth once daily Furosemide Active 20 MG PO Daily 30 June 24, 2022 12:00am 24 hr isosorbide mononitrate 60 mg extended release oral tablet (3 sources) Nitrate Vasodilator Start: 06-09-2022 End: 06-24-2022 take 60 mg by mouth once daily Isosorbide Mononitrate Active 60 MG PO Daily 30 June 24, 2022 12:00am melatonin 5 mg oral tablet (3 sources) Start: 06-14-2022 End: 06-24-2022 take 5 mg by mouth once daily at bedtime Melatonin Active 5 MG PO Daily at bedtime 30 June 24, 2022 12:00am metFORMIN hydrochloride 500 mg oral tablet (3 sources) Biguanide Start: 06-16-2022 End: 06-24-2022 take 500 mg by mouth once daily Metformin Active 500 MG PO Daily 30 June 24, 2022 12:00am montelukast 10 mg oral tablet (3 sources) Leukotriene Receptor Antagonist Start: 06-09-2022 End: 06-24-2022 take 10 mg by mouth at bedtime Montelukast Active 10 MG PO Bedtime 30 June 24, 2022 12:00am omeprazole 20 mg delayed release oral capsule (5 sources) Proton Pump Inhibitor Start: 06-24-2022 take 40 mg by mouth once daily Omeprazole Active 40 MG PO Daily 60 June 24, 2022 12:00am Start: 06-12-2022 End: 06-24-2022 take 40 mg by mouth once daily Omeprazole Discontinued 40 MG PO Daily 0 June 12, 2022 9:27am June 24, 2022 9:18am Start: 06-09-2022 End: 06-16-2022 take 40 mg by mouth twice daily Omeprazole Discontinued 40 MG PO Twice daily June 09, 2022 12:00am June 16, 2022 10:52am polyethylene glycol 3350 37868 mg powder for oral solution (3 sources) Osmotic Laxative Start: 06-14-2022 End: 06-24-2022 Polyethylene Glycol 3350 (Miralax) 17 gram Powder In Packet Active 17 GM PO Daily June 24, 2022 12:00am microencapsulated potassium chloride 20 meq extended release oral tablet (5 sources) Start: 06-16-2022 End: 06-24-2022 Potassium Chloride (Klor-Con M20) 20 mEq Tablet,Er Particles/Crystals Active 20 MEQ PO Daily June 24, 2022 12:00am Start: 06-09-2022 End: 06-16-2022 Potassium Chloride (Klor-Con M20) 20 mEq tablet,ER particles/crystals Discontinued 40 MEQ PO Daily June 09, 2022 12:00am June 16, 2022 10:52am pramipexole dihydrochloride 0.5 mg oral tablet (3 sources) Nonergot Dopamine Agonist Start: 06-09-2022 End: 06-24-2022 take 0.5 mg by mouth at bedtime Pramipexole Active 0.5 MG PO Bedtime June 24, 2022 12:00am psyllium 3400 mg powder for oral suspension (3 sources) Start: 06-14-2022 End: 06-24-2022 Psyllium Husk (Aspartame) (Metamucil Fiber Singles) 3.4 gram Powder In Packet Active 1 PACKET PO Twice daily June 24, 2022 12:00am Sennosides (Senna Lax) 8.6 mg Tablet (3 sources) Start: 06-24-2022 take 2 tablets by mouth twice daily Sennosides (Senna Lax) 8.6 mg Tablet Active 2 TAB PO Twice daily 120 June 24, 2022 12:00am Start: 06-14-2022 End: 06-24-2022 take 2 tablets by mouth twice daily Sennosides (Senna Lax) 8.6 mg Tablet Discontinued 2 TAB PO Twice daily 0 June 14, 2022 12:00am June 24, 2022 9:18am Start: 06-14-2022 take 2 tablets by mo [facility] twice daily Sennosides (Senna Lax) 8.6 mg Tablet Active 2 TAB PO Twice daily June 14, 2022 12:00am tiZANidine 4 mg oral tablet (3 sources) Central alpha-2 Adrenergic Agonist Start: 06-09-2022 End: 06-24-2022 take 4 mg by mouth twice daily Tizanidine Active 4 MG PO Twice daily 20 June 24, 2022 12:00am valsartan 40 mg oral tablet (3 sources) Angiotensin 2 Receptor Kirby Start: 06-24-2022 take 40 mg by mouth once daily Valsartan Active 40 MG PO Daily 30 June 24, 2022 12:00am Start: 06-14-2022 End: 06-24-2022 take 40 mg by mouth twice daily Valsartan Discontinued 40 MG PO Twice daily 0 June 14, 2022 12:00am June 24, 2022 9:18am Completed/Discontinued Medications Medication Drug Class(es) Dates Sig (Normalized) Sig (Original) ascorbic acid 500 mg oral tablet (2 sources) Vitamin C Start: 06-09-2022 End: 06-16-2022 take 1 tablet by mouth once daily Ascorbic Acid (Vitamin C) (Vitamin C) 500 mg tablet Discontinued 500 MG PO Daily June 09, 2022 12:00am June 16, 2022 10:52am biotin 10 mg oral capsule (2 sources) Start: 06-09-2022 End: 06-16-2022 take 52437 ug by mouth once daily Biotin Discontinued 24318 MCG PO Daily June 09, 2022 12:00am June 16, 2022 10:52am Magnesium Chloride (2 sources) Start: 06-09-2022 End: 06-16-2022 take 64 mg by mouth once daily Magnesium Chloride Discontinued 64 MG PO Daily June 09, 2022 12:00am June 16, 2022 10:52am [place]-3 Fatty Acids-Vitamin E (Fish Oil) 1,000 mg Capsule (2 sources) Start: 06-09-2022 End: 06-16-2022 take 1 capsule by mouth once daily [place]-3 Fatty Acids-Vitamin E (Fish Oil) 1,000 mg Capsule Discontinued 1 CAP PO Daily June 09, 2022 12:00am June 16, 2022 10:52am rosuvastatin calcium 5 mg oral tablet (2 sources) HMG-CoA Reductase Inhibitor Start: 06-09-2022 End: 06-16-2022 take 5 mg by mouth at bedtime Rosuvastatin Discontinued 5 MG PO Bedtime June 09, 2022 12:00am June 16, 2022 10:52am Problems Active Problems Problem Classification Problem Date Documented Da te Episodic/Chronic Acute cerebrovascular disease (7 sources) Embolic stroke; Translations: [Cerebral infarction, unspecified] Onset: 2 06-12-2022 Chronic Administrative/social admission (3 sources) Other reduced mobility; Translations: [Impaired mobility and activities of daily living] Onset: 3 06-17-2022 Episodic Anxiety disorders (3 sources) Anxiety; Translations: [Anxiety disorder, unspecified] Onset: 3 06-17-2022 Chronic Cardiac dysrhythmias (20 sources) Paroxysmal atrial fibrillation; Translations: [Atrial fibrillation] Onset: 2 Chronic Complications of surgical procedures or medical care (1 source) Postprocedural hypothyroidism; 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 HYPOTHYROIDISM] Onset: 3 Chronic Conduction disorders (10 sources) Cardiac pacemaker in situ; Translations: [Presence of cardiac pacemaker] Onset: 3 06-09-2022 Chronic Congestive heart failure; nonhypertensive (1 source) Unspecified diastolic (congestive) heart failure; Translations: [UNSPECIFIED DIASTOLIC HEART FAILURE] Onset: 2 Chronic Coronary atherosclerosis and other heart disease (5 sources) Atherosclerotic heart disease of [place] coronary artery without angina pectoris; Translations: [Atherosclerotic heart disease of [place] coronary artery with unstable angina pectoris] Onset: 3 Chronic Coronary atherosclerosis and other heart disease (1 source) Presence of aortocoronary bypass graft; Translations: [PRESENCE AORTOCORONARY BYPASS GRAFT] Onset: 3 Episodic Disorders of lipid metabolism (2 sources) Pure hypercholesterolemia, unspecified; Translations: [Hyperlipidemia, unspecified] Onset: 2 Chronic Diverticulosis and diverticulitis (5 sources) Diverticular disease; Translations: [Diverticulosis of intestine, part unspecified, without perforation or abscess without bleeding] Onset: 2 06-09-2022 Chronic Esophageal disorders (1 source) Gastro-esophageal reflux disease without esophagitis; Translations: [GERD WITHOUT ESOPHAGITIS] Onset: 3 Chronic Essential hypertension (7 sources) Essential (primary) hypertension; Translations: [Hypertensive disorder] Onset: 3 06-09-2022 Chronic Gastrointestinal hemorrhage (4 sources) Hemorrhage of anus and rectum; Translations: [Gastrointestinal hemorrhage, unspecified] Onset: 2 Episodic Genitourinary symptoms and ill-defined conditions (1 source) Personal history of urinary (tract) infections; Translations: [PERS HX URINARY TRACT INFECTIONS] Onset: 3 Episodic Heart valve disorders (1 source) Rheumatic tricuspid insufficiency; Translations: [RHEUMATIC TRICUSPID INSUFFICIENCY] Onset: 2 Chronic Hypertension with complications and secondary hypertension (1 source) Hypertensive heart disease with heart failure; Translations: [HTN HEART DISEASE W/HEART FAIL] Onset: 2 Chronic Occlusion or stenosis of precerebral arteries (5 sources) Carotid artery stenosis; Translations: [Occlusion and stenosis of unspecified carotid artery] Onset: 3 06-17-2022 Chronic Osteoarthritis (1 source) Unspecified osteoarthritis, unspecified site; Translations: [UNSPECIFIED OSTEOARTHRITIS UNS SITE] Onset: 3 Chronic Other aftercare (1 source) Other terminal supervisor (current) drug therapy; Translations: [OTH SKIP LOADER CURRENT DRUG THERAPY] Onset: 3 Episodic Other aftercare (1 source) intermediate designer (current) use of aspirin; Translations: [SKIP LOADER CURRENT USE OF ASPIRIN] Onset: 3 Episodic Other connective tissue disease (2 sources) Muscle weakness of upper limb; Translations: [Other symptoms and signs involving the musculoskeletal system] 06-09-2022 Episodic Other connective tissue disease (3 sources) Other symptoms and signs involving the musculoskeletal system; Translations: [Other musculoskeletal symptoms referable to limbs] Onset: 2 06-16-2022 Episodic Other gastrointestinal disorders (2 sources) Constipation; Translations: [Constipation, unspecified] 06-13-2022 Episodic Other gastrointestinal disorders (3 sources) Constipation, unspecified; Translations: [Constipation, unspecified] Onset: 2 06-16-2022 Episodic Other hematologic conditions (6 sources) Other specified abnormalities of plasma proteins; Translations: [Other abnormal blood chemistry] Onset: 2 06-16-2022 Episodic Other hematologic conditions (2 sources) Raised cardiac enzyme or marker; Translations: [Other specified abnormalities of plasma proteins] 06-09-2022 Episodic Other nervous system disorders (1 source) Chronic pain; Translations: [Other chronic pain] 06-17-2022 Chronic Other nervous system disorders (2 sources) Other chronic pain; Translations: [Other chronic pain] Onset: 3 06-25-2022 Chronic Other screening for suspected conditions (not mental disorders or infectious disease) (10 sources) Abnormal electrocardiogram [ECG] [EKG]; Translations: [Encounter for screening mammogram for malignant neoplasm of breast] Onset: 2 Episodic Residual codes; unclassified (1 source) Acquired absence of both cervix and uterus; Translations: [ACQUIRED ABSENCE BOTH CERVIX AND UTERUS] Onset: 3 Episodic Residual codes; unclassified (1 source) Other specified health status; Translations: [Other specified health status] Onset: 3 Episodic Spondylosis; intervertebral disc disorders; other back problems (2 sources) Chronic back pain ; Translations: [Dorsalgia, unspecified] Onset: 3 06-24-2022 Episodic Thyroid disorders (1 source) Nontoxic single thyroid nodule; Translations: [NONTOXIC SINGLE THYROID NODULE] Onset: 2 Chronic Unclassified (1 source) CONTACT W/AND (SUSP) EXPOS COVID-19; Translations: [CONTACT W/AND (SUSP) EXPOS COVID-19] Onset: 3 Past or Other Problems Problem Classification Problem Date Documented Date Episodic/Chronic Acute bronchitis (4 sources) Acute bronchitis, unspecified; Translations: [ACUTE BRONCHITIS UNSPECIFIED] Onset: 06-27-2021 Episodic Bacterial infection; unspecified site (1 source) Methicillin resistant Staphylococcus aureus infection as the cause of diseases classified elsewhere; Translations: [METHICILLIN RESIST INF DX ELSEWHERE] Onset: 07-01-2021 Episodic Deficiency and other anemia (1 source) Anemia, unspecified; Translations: [ANEMIA UNSPECIFIED] Onset: 07-01-2021 Episodic Diabetes mellitus without complication (1 source) Other abnormal glucose; Translations: [OTHER ABNORMAL GLUCOSE] Onset: 07-01-2021 Episodic Nonspecific chest pain (2 sources) Chest pain, unspecified; Translations: [Chest pain, unspecified] Onset: 12-28-2022 Episodic Other circulatory disease (2 sources) Personal history of transient ischemic attack (TIA), and cerebral infarction without residual deficits; Translations: [Personal history of transient ischemic attack (TIA), and cerebral infarction without residual deficits] Onset: 12-28-2022 Episodic Residual codes; unclassified (1 source) Insomnia, unspecified; Translations: [INSOMNIA UNSPECIFIED] Onset: 07-01-2021 Episodic Results Test Name Value Interpretation Reference Range Facility Office Visiton 03-17-2023 Follow-up visit [id number] Abdirahman Gomez 1940 F Date Provider Department Center 03/17/2023 Monico-ALEXANDRIA SANTOS BRIA [facility] Family History Problem Relation Age of Onset Aneurysm Mother Alcohol abuse Father Family Status - Relation Status Age at Mother Father Level of Service:14654 [place] OFFICE/OUTPATIENT ESTABLISHED MOD MDM 30-39 MIN Normal [facility] Office Visiton 12-28-2022 Follow-up visit [id number] Abdirahman Gomez 1940 F Date Provider Department Center 12/28/2022 JAILYN CHAMBERLAIN BRIA [facility] Family History Problem Relation Age of Onset Aneurysm Mother Alcohol abuse Father Family Status - Relation Status Age at Mother Father Level of Service:47458 [place] OFFICE/OUTPATIENT ESTABLISHED MOD MDM 30-39 MIN Reason for Visit and Comments: Follow-up [825127] - 6 month follow up / echo result Normal [facility] Telemedicineon 07-08-2022 Telemedicine [id number] Abdirahman Gomez 1940 F Date Provider Department Center 07/08/2022 271-ALEXANDRIA SANTOS CARD [facility] Family History Problem Relation Age of Onset Aneurysm Mother Alcohol abuse Father Family Status - Relation Status Age at Mother Father Level of Service:82207 [place] OFFICE/OUTPATIENT ESTABLISHED SF MDM 10-19 MIN Normal [facility] Basic Metabolic Panelon 06-14 Anion gap [Moles/Vol] 16.1 mmol/L High 6.0-15.0 [facility] Comment on above: Performed By: #### C BC, BMP #### [facility] [address] [place] [address] [place] Calcium [Mass/Vol] 9.4 mg/dL Normal 8.2-10.2 [facility] Comment on above: Performed By: #### C BC, BMP #### [facility] [address] [place] [address] [place] Chloride [Moles/Vol] 102 mmol/L Normal 95-114 [facility] Comment on above: Performed By: #### C BC, BMP #### [facility] [address] CO2 [Moles/Vol] 20.7 mmol/L Low 22.0-30.0 [facility] Comment on above: Performed By: #### C BC, BMP #### [facility] [address] [place] [address] [place] Creatinine [Mass/Vol] 0.84 mg/dL Normal 0.44-1.03 [facility] Comment on above: Performed By: #### C BC, BMP #### [facility] [address] [place] [address] [place] Creatinine Clr Calc Pharmacy 47.21 Normal [facility] Comment on above: Result Comment: PERF ORMED BY: [place] [address] PATHOLOGIST [employer]AR [employer] TRAFFIC CONTROLLER PILAR VILLARREAL M.D. Performed By: #### C BC, BMP #### [facility] [address] Estimated GFR ( Rose > 60 Normal [facility] Comment on above: Result Comment: GFR estimated reference range: According to KDOQI guidelines, <60 ml/min/1.73m2 is sufficient to diagnose a patient with chronic kidney disease. Performed By: #### C BC, BMP #### [address] Estimated GFR (Non- Am > 60 Normal [facility] Comment on above: Performed By: #### C BC, BMP #### [address] Glucose [Mass/Vol] 104 mg/dL High 70-100 [facility] Comment on above: Result Comment: [place] Glucose Reference Range is dependent on time and content of last meal. Glucose of more than 200 mg/dL in a nonstressed, ambulatory subject supports the diagnosis of Diabetes Mellitus. ADA recommended reference range Performed By: #### C BC, BMP #### [address] Potassium [Moles/Vol] 3.8 mmol/L Normal 3.5-5.1 [facility] Comment on above: Performed By: #### C BC, BMP #### [address] Sodium [Moles/Vol] 135 mmol/L Low 136-146 [facility] Comment on above: Performed By: #### C BC, BMP #### [address] Urea nitrogen [Mass/Vol] 10 mg/dL Normal 9-23 [facility] Comment on above: Performed By: #### C BC, BMP #### [place] [address] [place] Basophils Auto (Bld) [#/Vol] Ordered By: Stiven Zaman on 06-23-2022 Basophils (Bld) [#/Vol] 0.1 10*3/uL 0.0-0.2 [facility] Basophils/100 WBC Auto (Bld) Ordered By: Stiven Zaman on 06-23-2022 Basophils/100 WBC (Bld) 0.8 % . F [facility] Complete Blood Count Auto Di ffon 06-23-2022 Basophils (Bld) [#/Vol] 0.1 10*3/uL Normal 0.0-0.2 [facility] Comment on above: Result Comment: PERF ORMED BY: [place] [address] PATHOLOGIST [employer]AR [employer] TRAFFIC CONTROLLER PILAR VILLARREAL M.D. Performed By: #### C BC, BMP #### [address] Basophils/100 WBC (Bld) 0.8 % Normal . F [facility] Comment on above: Performed By: #### C BC, BMP #### [address] Eosinophils (Bld) [#/Vol] 0.3 10*3/uL Normal 0.0-0.45 [facility] Comment on above: Performed By: #### C BC, BMP #### [place] [address] [place] Eosinophils/100 WBC (Bld) 3.2 % Normal . [facility] Comment on above: Performed By: #### C BC, BMP #### [address] Erythrocyte distribution width (RBC) [Ratio] 13.3 % Normal 11.9-15.3 [facility] [facility] [place] Comment on above: Performed By: #### C BC, BMP #### [place] [address] [place] Hematocrit (Bld) [Volume fraction] 38.3 % Normal 34.0-46.4 [facility] [place] Comment on above: Performed By: #### C BC, BMP #### [address] Hemoglobin (Bld) [Mass/Vol] 12.8 g/dL Normal 11.8-15.4 [facility] [place] Comment on above: Performed By: #### C BC, BMP #### [address] [place] [address] [place] Lymphocytes (Bld) [#/Vol] 2.6 10*3/uL Normal 1.00-4.8 [facility] [place] Comment on above: Performed By: #### C BC, BMP #### [facility] [address] [place] [address] [place] Lymphocytes/100 WBC (Bld) 31.9 % Normal . [facility] [place] Comment on above: Performed By: #### C BC, BMP #### [facility] [address] MCH (RBC) [Entitic mass] 34.1 pg Normal 24.7-34.3 [facility] [place] Comment on above: Performed By: #### C BC, BMP #### [address] MCV (RBC) [Entitic vol] 102.2 fL High 80-100 [facility] Comment on above: Performed By: #### C BC, BMP #### [address] Mean Corpuscular HGB Conc 33.4 g/dL Normal 32.0-35.0 [facility] [place] Comment on above: Performed By: #### C BC, BMP #### [place] [address] [place] Monocytes (Bld) [#/Vol] 0.7 10*3/uL Normal 0.0-0.8 [facility] [place] Comment on above: Performed By: #### C BC, BMP #### [place] [address] [place] Monocytes/100 WBC (Bld) 8.4 % Normal . [facility] Comment on above: Performed By: #### C BC, BMP #### [place] [address] [place] Neutrophils (Bld) [#/Vol] 4.5 10*3/uL Normal 1.8-7.7 [facility] Comment on above: Performed By: #### C BC, BMP #### [address] [address] [place] Neutrophils/100 WBC (Bld) 55.7 % Normal . [facility] Comment on above: Performed By: #### C ZULEIMA, BMP #### [address] NRBC% 0.1 /100{WBC} Normal 0-0.5 [facility] Comment on above: Performed By: #### C ZULEIMA, BMP #### [address] Platelet mean volume (Bld) [Entitic vol] 8.0 fL Normal 6.3-10.7 [facility] [place] Comment on above: Performed By: #### C ZULEIMA, BMP #### [address] Platelets (Bld) [#/Vol] 272 10*3/uL Normal 150-450 [facility] [place] Comment on above: Performed By: #### C ZULEIMA, BMP #### [address] RBC (Bld) [#/Vol] 3.75 10*6/uL Normal 3.60-5.00 [facility] Comment on above: Performed By: #### C ZULEIMA, BMP #### [address] WBC (Bld) [#/Vol] 8.1 10*3/uL Normal 3.8-11.6 [facility] Comment on above: Performed By: #### C ZULEIMA, BMP #### [address] Creatinine and Glomerular fi ltration rate.predicted panel (S/P/Bld)Ordered By: Stiven Zaman on 06-23-2022 Creatinine [Mass/Vol] 0.84 mg/dL 0.44-1.03 [facility] Eosinophils Auto (Bld) [#/Vo l]Ordered By: Stiven Zaman on 06-23-2022 Eosinophils (Bld) [#/Vol] 0.3 10*3/uL 0.0-0.45 [facility] Eosinophils/100 WBC Auto (Bl d)Ordered By: Stiven Zaman on 06-23-2022 Eosinophils/100 WBC (Bld) 3.2 % . [facility] Erythrocyte distribution wid th Auto (RBC) [Ratio]Ordered By: Stiven Zaman on 06-23-2022 Erythrocyte distribution width (RBC) [Ratio] 13.3 % 11.9-15.3 [facility] [place] Estimated glomerular filtrat ion rate (GFR) non- AmericanOrdered By: Stiven Zaman on 06-23-2022 GFR/1.73 sq M.predicted among non-blacks MDRD (S/P/Bld) [Vol rate/Area] > 60 mL/Min [facility] [place] Hematocrit Auto (Bld) [Volum e fraction]Ordered By: Stiven Zaman on 06-23-2022 Hematocrit (Bld) [Volume fraction] 38.3 % 34.0-46.4 [facility] Hemoglobin [Mass/volume] in BloodOrdered By: Stiven Zaman on 06-23-2022 Hemoglobin (Bld) [Mass/Vol] 12.8 g/dL 11.8-15.4 [facility] Leukocytes [#/volume] correc zoe for nucleated erythrocytes in Blood by Automated counOrdered By: Stiven Zaman on 06-23-2022 WBC corrected for nucl RBC Auto (Bld) [#/Vol] 8.1 10*3/uL 3.8-11.6 [facility] Lymphocytes Auto (Bld) [#/Vo l]Ordered By: Stiven Zaman on 06-23-2022 Lymphocytes (Bld) [#/Vol] 2.6 10*3/uL 1.00-4.8 [facility] Lymphocytes/100 WBC Auto (Bl d)Ordered By: Stiven Zaman on 06-23-2022 Lymphocytes/100 WBC (Bld) 31.9 % . [facility] MCH Auto (RBC) [Entitic mass ]Ordered By: Stiven Zaman on 06-23-2022 MCH (RBC) [Entitic mass] 34.1 pg 24.7-34.3 [facility] [place] MCHC Auto (RBC) [Mass/Vol]Or dered By: Stiven Zaman on 06-23-2022 MCHC (RBC) [Mass/Vol] 33.4 g/dL 32.0-35.0 [facility] MCV Auto (RBC) [Entitic vol] Ordered By: Stiven Zaman on 06-23-2022 MCV (RBC) [Entitic vol] 102.2 fL 80-100 [facility] Monocytes Auto (Bld) [#/Vol] Ordered By: Stiven Zaman on 06-23-2022 Monocytes (Bld) [#/Vol] 0.7 10*3/uL 0.0-0.8 [facility] Monocytes/100 WBC Auto (Bld) Ordered By: Stiven Zaman on 06-23-2022 Monocytes/100 WBC (Bld) 8.4 % . [facility] Neutrophils Auto (Bld) [#/Vo l]Ordered By: Stiven Zaman on 06-23-2022 Neutrophils (Bld) [#/Vol] 4.5 10*3/uL 1.8-7.7 [facility] Neutrophils/100 WBC Auto (Bl d)Ordered By: Stiven Zaman on 06-23-2022 Neutrophils/100 WBC (Bld) 55.7 % . [facility] No Panel InformationOrdered By: Stiven Zaman on 06-23-2022 Estimated GFR () > 60 mL/Min [facility] [place] Comment on above: GFR estimated refere nce range: According to KDOQI guidelines, <60 ml/min/1.73m2 is sufficient to diagnose a patient with chronic kidney disease. Pharmacy Creatinine Clearance (Chem 47.21 [facility] [place] Nucleated erythrocytes [Pres ence] in Blood by Automated countOrdered By: Stiven Zaman on 06-23-2022 Nucleated RBC Auto Ql (Bld) 0.1 /100{WBC} 0-0.5 [facility] Platelet mean volume Auto (B ld) [Entitic vol]Ordered By: Stiven Zaman on 06-23-2022 Platelet mean volume (Bld) [Entitic vol] 8.0 fL 6.3-10.7 [facility] Platelets Auto (Bld) [#/Vol] Ordered By: Stiven Zaman on 06-23-2022 Platelets (Bld) [#/Vol] 272 10*3/uL 150-450 [facility] RBC Auto (Bld) [#/Vol]Ordere d By: Stiven Zaman on 06-23-2022 RBC (Bld) [#/Vol] 3.75 10*6/uL 3.60-5.00 [facility] Serum or plasma anion gap de terminationOrdered By: Stiven Zaman on 06-23-2022 Anion gap [Moles/Vol] 16.1 mmol/L 6.0-15.0 [facility] Serum or plasma calcium jerrod urement (mass/volume)Ordered By: Stiven Zaman on 06-23-2022 Calcium [Mass/Vol] 9.4 mg/dL 8.2-10.2 [facility] Serum or plasma chloride salma surement (moles/volume)Ordered By: Stiven Zaman on 06-23-2022 Chloride [Moles/Vol] 102 mmol/L 95-114 [facility] Serum or plasma glucose jerrod urement (mass/volume)Ordered By: Stiven Zaman on 06-23-2022 Glucose [Mass/Vol] 104 mg/dL 70-100 [facility] Comment on above: ADA recommended refe rence rangeRandom Glucose Reference Range is dependent on time and content of last meal. Glucose of more than 200 mg/dL in a nonstressed, ambulatory subject supports the diagnosis of Diabetes Mellitus. Serum or plasma potassium me asurement (moles/volume)Ordered By: Stiven Zaman on 06-23-2022 Potassium [Moles/Vol] 3.8 mmol/L 3.5-5.1 [facility] Serum or plasma sodium measu rement (moles/volume)Ordered By: Stiven Zaman on 06-23-2022 Sodium [Moles/Vol] 135 mmol/L 136-146 [facility] Serum or plasma total carbon dioxide measurement (moles/volume)Ordered By: Stiven Zaman on 06-23-2022 CO2 [Moles/Vol] 20.7 mmol/L 22.0-30.0 [facility] Serum or plasma urea nitroge n measurement (mass/volume)Ordered By: Stiven Zaman on 06-23-2022 Urea nitrogen [Mass/Vol] 10 mg/dL 9-23 [facility] [place] WBC Auto (Bld) [#/Vol]Ordere d By: Stiven Zaman on 06-23-2022 WBC (Bld) [#/Vol] 8.1 10*3/uL 3.8-11.6 [facility] Glucose Glucometer (BldC) [M ass/Vol]Ordered By: Stiven Austyn on 06-21-2022 Glucose [Mass/Vol] 108 mg/dL [facility] Comment on above: Random Glucose Refer ence Range is dependent on time and content of last meal. Glucose of more than 200 mg/dL in a nonstressed, ambulatory subject supports the diagnosis of Diabetes Mellitus. Glucose Poct Glucometerson 0 06-21-2022 Glucose [Mass/Vol] 108 mg/dL Normal [facility] Comment on above: Result Comment: [place] [facility] Glucose Reference Range is dependent on time and content of last meal. Glucose of more than 200 mg/dL in a nonstressed, ambulatory subject supports the diagnosis of Diabetes Mellitus. PERFORMED BY: [place] [address] PATHOLOGIST [employer] PILAR VILLARREAL M.D. Performed By: #### G LUREY #### Point of Care testing , Glucose Poct Glucometerson 0 06-20-2022 Glucose [Mass/Vol] 93 mg/dL Normal [facility] Comment on above: Result Comment: [place] [facility] Glucose Reference Range is dependent on time and content of last meal. Glucose of more than 200 mg/dL in a nonstressed, ambulatory subject supports the diagnosis of Diabetes Mellitus. PERFORMED BY: [place] [address] PATHOLOGIST [employer] PILAR VILLARREAL M.D. Performed By: #### L IPID, A1C [facility] #### [address] Glucose [Mass/Vol] 107 mg/dL Normal [facility] Comment on above: Result Comment: [place] [facility] Glucose Reference Range is dependent on time and content of last meal. Glucose of more than 200 mg/dL in a nonstressed, ambulatory subject supports the diagnosis of Diabetes Mellitus. PERFORMED BY: [place] [address] PATHOLOGIST [employer] PILAR VILLARREAL M.D. Performed By: #### G LULS #### Point of Care testing , Glucose Poct Glucometerson 0 06-19-2022 Commemt1 Normal [facility] [place] Comment on above: Result Comment: Glu2 : WILL NOTIFY DR/RN Performed By: #### G LULS #### Point of Care testing , Commemt2 Cleaned Meter [facility] Comment on above: Result Comment: PERF ORMED BY: [address] [address] PATHOLOGIST [employer] PILAR VILLARREAL M.D. Performed By: #### G LULS #### Point of Care testing , Glucose [Mass/Vol] 118 mg/dL Normal [facility] Comment on above: Result Comment: [place] Glucose Reference Range is dependent on time and content of last meal. Glucose of more than 200 mg/dL in a nonstressed, ambulatory subject supports the diagnosis of Diabetes Mellitus. Performed By: #### G LULS #### Point of Care testing , Glucose [Mass/Vol] 97 mg/dL Normal [facility] Comment on above: Result Comment: [place] [facility] Glucose Reference Range is dependent on time and content of last meal. Glucose of more than 200 mg/dL in a nonstressed, ambulatory subject supports the diagnosis of Diabetes Mellitus. PERFORMED BY: [address] [address] PATHOLOGIST [employer] PILAR VILLARREAL M.D. Performed By: #### G LULS #### Point of Care testing , No Panel InformationOrdered By: Stiven Zaman on 06-19-2022 Bedside Glucose #2 Comment Cleaned meter [facility] Bedside Glucose Comment See comment [facility] Comment on above: Glu2: WILL NOTIFY DR /RN XR hip LT min 2V(w/wo pelvis )*on 06-19-2022 XR hip LT min 2V(w/wo pelvis)* [facility] [place] [address] [place] [address] XRay Report Signed Patient: Abdirahman Gomez MR#: [id number] : 1940 Acct:[id number] Age/Sex: 81 / F ADM Date: 06/16/22 Loc: Room: 1D0632-3 Type: ADM IN Attending Dr: Stiven Zaman MD Copies to: MD Tamara Santiago DO, RES Ordering Provider: Tamara Saleh DO, RES Date of Service: 06/19/22 XR/XR hip LT min 2V(w/wo pelvis)*: hip pain LEFT HIP - 2 views: CLINICAL HISTORY: Fell one week ago after having stroke. Left posterior hip pain. 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 No acute bony process is seen. Vascular calcifications and post surgical changes involving the soft tissues. XR/XR hip LT min 2V(w/wo pelvis)* IMPRESSION: NO ACUTE PROCESS.. Impression dictated by: Stiven Beasley Jr., D.O.06/19/2022 3:01 PM Dictation Location: [place] [address] Transcribed By: [facility] 06/19/22 1501 Dictated By: Stiven Beasley Jr, DO 06/19/22 1500 Signed By: 06/19/22 1501 [facility] Glucose Poct Glucometerson 0 06-18-2022 Commemt1 Glu2: Cleaned Meter [facility] Comment on above: Result Comment: PERF ORMED BY: [facility] [address] [facility] [place] [address] PATHOLOGIST [employer] PILAR VILLARREAL M.D. Performed By: #### G LULS #### Point of Care testing , Glucose [Mass/Vol] 105 mg/dL Normal [facility] Comment on above: Result Comment: [facility] Glucose Reference Range is dependent on time and content of last meal. Glucose of more than 200 mg/dL in a nonstressed, ambulatory subject supports the diagnosis of Diabetes Mellitus. Performed By: #### G LULS #### Point of Care testing , Glucose [Mass/Vol] 107 mg/dL Normal [facility] Comment on above: Result Comment: [facility] Glucose Reference Range is dependent on time and content of last meal. Glucose of more than 200 mg/dL in a nonstressed, ambulatory subject supports the diagnosis of Diabetes Mellitus. PERFORMED BY: [place] [address] PATHOLOGIST [employer]ER PILAR VILLARREAL M.D. Performed By: #### C BC, BMP #### [address] US carotid doppler BIon 01-0 US carotid doppler BI [facility] [place] [address] [place] [address] Ultrasound Report Signed Patient: Abdirahman Gomez MR#: [id number] : 1940 Acct:[id number] Age/Sex: 81 / F ADM Date: 06/09/22 Loc: Room: [address] [place] [address] Type: DIS IN Attending Dr: Frida De La Cruz MD Ordering Provider: Nathaniel Castillo MD Date of Service: 06/12/22 US/US carotid doppler BI: stroke Copies to: MD Frida Pham MD CAROTID DUPLEX INDICATION: Numbness and tingling PROCEDURE: Color-flow duplex scanning is used to interrogate the extracranial carotid arterial system, as well as both vertebral arteries. Both carotid bifurcations show some smooth homogeneous plaque formation. The proximal right internal carotid artery shows a highest peak systolic velocity of 110 cm/s with an end-diastolic velocity of 17.4 cm/s . The mid internal carotid artery measures 74.3 cm/s peak systolic with an end diastolic velocity of 19.6 cm/s . The distal segment measures 101 cm/s peak systolic with an end diastolic velocity of 31.5 cm/s . The velocities of the right common carotid artery are 77 cm/s peak systolic and 12.4 cm/s end-diastolic and 60.9 cm/s peak systolic and 15.5 cm/s end diastolic distally. The peak systolic velocity ratio of the internal to the common carotid artery is 1.43 . The external carotid artery measures 512 cm/s peak systolic velocity. The right vertebral artery was not visualized.. The proximal left internal carotid artery shows a highest peak systolic velocity of 174 cm/s with an end-diastolic velocity of 45.1 cm/s . The mid internal carotid artery measures 165 cm/s peak systolic with an end diastolic velocity of 28 cm/s . The distal segment measures 134 cm/s peak systolic with an end diastolic velocity of 21.7 cm/s . The velocities of the left common carotid artery are 82 cm/s peak systolic and 14.7 cm/s end-diastolic and 128 cm/s peak systolic and 26.7 cm/s end diastolic distally. The peak systolic velocity ratio of the internal to the common carotid artery is 1.36 . The external carotid artery measures 114 cm/s peak systolic. The left vertebral artery is patent at 78.9 cm/s peak systolic with antegrade flow. 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 BOTH VERTEBRAL ARTERIES ARE PATENT WITH ANTEGRADE FLOW. High-grade stenoses was identified in the right external carotid artery. Impression dictated by: Bebo Howell MD06/18/2022 4:50 PM Dictation [facility] Tech: Margarethuy Rust Transcribed By: CHANDRAKANT 06/18/22 1650 Dictated By: Bebo Howell MD 06/18/22 1648 Signed By: 06/18/22 1650 Normal [facility] Albumin [Mass/volume] in Ser um or PlasmaOrdered By: Stiven Zaman on 06-17-2022 Albumin [Mass/Vol] 3.3 g/dL 3.2-5.5 [facility] Complete Blood Count Auto Di ffon 06-17-2022 Basophils (Bld) [#/Vol] 0.2 10*3/uL Normal 0.0-0.2 [facility] Comment on above: Result Comment: PERF ORMED BY: [facility] [address] [place] [address] PATHOLOGIST [employer]ER PILAR VILLARREAL M.D. Performed By: #### G LULS #### Point of Care testing , Basophils/100 WBC (Bld) 1.4 % Normal . [facility] Comment on above: Performed By: #### G LULS #### Point of Care testing , Eosinophils (Bld) [#/Vol] 0.3 10*3/uL Normal 0.0-0.45 [facility] Comment on above: Performed By: #### G KIRA #### Point of Care testing , Eosinophils/100 WBC (Bld) 2.4 % Normal . [facility] Comment on above: Performed By: #### G CARLEENLS #### Point of Care testing , Erythrocyte distribution width (RBC) [Ratio] 13.2 % Normal 11.9-15.3 [facility] Comment on above: Performed By: #### G CARLEENLS #### Point of Care testing , Hematocrit (Bld) [Volume fraction] 38.9 % Normal 34.0-46.4 [facility] [place] Comment on above: Performed By: #### G CARLEENLS #### Point of Care testing , Hemoglobin (Bld) [Mass/Vol] 12.8 g/dL Normal 11.8-15.4 [facility] Comment on above: Performed By: #### G KIRA #### Point of Care testing , Lymphocytes (Bld) [#/Vol] 3.2 10*3/uL Normal 1.00-4.8 [facility] Comment on above: Performed By: #### G CARLEENLS #### Point of Care testing , Lymphocytes/100 WBC (Bld) 29.1 % Normal . [facility] Comment on above: Performed By: #### G CARLEENLS #### Point of Care testing , MCH (RBC) [Entitic mass] 33.5 pg Normal 24.7-34.3 [facility] Comment on above: Performed By: #### G CARLEENLS #### Point of Care testing , MCV (RBC) [Entitic vol] 102.3 fL High 80-100 [facility] Comment on above: Performed By: #### G CARLEENLS #### Point of Care testing , Mean Corpuscular HGB Conc 32.8 g/dL Normal 32.0-35.0 [facility] Comment on above: Performed By: #### G KIRA #### Point of Care testing , Monocytes (Bld) [#/Vol] 1.0 10*3/uL High 0.0-0.8 [facility] Comment on above: Performed By: #### G CARLEENLS #### Point of Care testing , Monocytes/100 WBC (Bld) 9.4 % Normal . [facility] Comment on above: Performed By: #### G CARLEENLS #### Point of Care testing , Neutrophils (Bld) [#/Vol] 6.3 10*3/uL Normal 1.8-7.7 [facility] Comment on above: Performed By: #### G CARLEENLS #### Point of Care testing , Neutrophils/100 WBC (Bld) 57.7 % Normal . [facility] Comment on above: Performed By: #### G CARLEENLS #### Point of Care testing , NRBC% 0.0 /100{WBC} Normal 0-0.5 [facility] Comment on above: Performed By: #### G CARLEENLS #### Point of Care testing , Platelet mean volume (Bld) [Entitic vol] 7.5 fL Normal 6.3-10.7 [facility] Comment on above: Performed By: #### G KIRA #### Point of Care testing , Platelets (Bld) [#/Vol] 309 10*3/uL Normal 150-450 [facility] Comment on above: Performed By: #### G CARLEENLS #### Point of Care testing , RBC (Bld) [#/Vol] 3.81 10*6/uL Normal 3.60-5.00 [facility] Comment on above: Performed By: #### G CARLEENLS #### Point of Care testing , WBC (Bld) [#/Vol] 10.9 10*3/uL Normal 3.8-11.6 [facility] Comment on above: Performed By: #### G CARLEENLS #### Point of Care testing , Comprehensive Metabolic Pane jazmin 06-17-2022 Albumin [Mass/Vol] 3.3 g/dL Normal 3.2-5.5 [facility] Comment on above: Performed By: #### Ginna DURANTLS #### Point of Care testing , Albumin/Globulin [Mass ratio] 0.9 {ratio} [facility] Comment on above: Performed By: #### G KIRA #### Point of Care testing , ALP [Catalytic activity/Vol] 76 U/L Normal 32-92 [facility] [place] Comment on above: Performed By: #### G CARLEENLS #### Point of Care testing , ALT [Catalytic activity/Vol] 39 U/L Normal 10-60 [facility] Comment on above: Performed By: #### G CARLEENLS #### Point of Care testing , Anion gap [Moles/Vol] 13.1 mmol/L Normal 6.0-15.0 [facility] Comment on above: Performed By: #### G KIRA #### Point of Care testing , AST [Catalytic activity/Vol] 52 U/L High 10-42 [facility] Comment on above: Performed By: #### G KIRA #### Point of Care testing , Bilirubin [Mass/Vol] 0.5 mg/dL Normal 0.3-1.2 [facility] Comment on above: Performed By: #### G KIRA #### Point of Care testing , Calcium [Mass/Vol] 9.0 mg/dL Normal 8.2-10.2 [facility] Comment on above: Performed By: #### G CARLEENLS #### Point of Care testing , Chloride [Moles/Vol] 106 mmol/L Normal 95-114 [facility] Comment on above: Performed By: #### G CARLEENLS #### Point of Care testing , CO2 [Moles/Vol] 20.6 mmol/L Low 22.0-30.0 [facility] Comment on above: Performed By: #### G KIRA #### Point of Care testing , Creatinine [Mass/Vol] 0.78 mg/dL Normal 0.44-1.03 [facility] Comment on above: Performed By: #### G CARLEENLS #### Point of Care testing , Creatinine Clr Calc Pharmacy 50.13 [facility] Comment on above: Performed By: #### G CARLEENLS #### Point of Care testing , Estimated GFR ( Rose > 60 [facility] Comment on above: Result Comment: GFR estimated reference range: According to KDOQI guidelines, <60 ml/min/1.73m2 is sufficient to diagnose a patient with chronic kidney disease. Performed By: #### G LULS #### Point of Care testing , Estimated GFR (Non- Am > 60 [facility] Comment on above: Performed By: #### G LULS #### Point of Care testing , Globulin (S) [Mass/Vol] 3.6 g/dL Normal [facility] Comment on above: Performed By: #### G LULS #### Point of Care testing , Glucose [Mass/Vol] 107 mg/dL High 70-100 [facility] Comment on above: Result Comment: [place] [facility] Glucose Reference Range is dependent on time and content of last meal. Glucose of more than 200 mg/dL in a nonstressed, ambulatory subject supports the diagnosis of Diabetes Mellitus. ADA recommended reference range Performed By: #### G LULS #### Point of Care testing , Potassium [Moles/Vol] 3.7 mmol/L Normal 3.5-5.1 [facility] Comment on above: Performed By: #### G LULS #### Point of Care testing , Protein [Mass/Vol] 6.9 g/dL Normal 6.1-7.9 [facility] Comment on above: Performed By: #### G LULS #### Point of Care testing , Sodium [Moles/Vol] 136 mmol/L Normal 136-146 [facility] Comment on above: Performed By: #### G LULS #### Point of Care testing , Urea nitrogen [Mass/Vol] 13 mg/dL Normal 9-23 [facility] Comment on above: Performed By: #### G LULS #### Point of Care testing , Globulin Calc (S) [Mass/Vol] Ordered By: Stiven Zaman on 06-17-2022 Globulin (S) [Mass/Vol] 3.6 g/dL [facility] Glucose Poct Glucometerson 0 06-17-2022 Commemt1 [facility] Comment on above: Result Comment: Glu2 : WILL NOTIFY DR/RN Performed By: #### G LULS #### Point of Care testing , Commemt2 Cleaned Meter Normal [facility] Comment on above: Result Comment: PERF ORMED BY: [place] [address] PATHOLOGIST [employer] PILAR VILLARREAL M.D. Performed By: #### G LULS #### Point of Care testing , Glucose [Mass/Vol] 121 mg/dL Normal [facility] Comment on above: Result Comment: [place] om Glucose Reference Range is dependent on time and content of last meal. Glucose of more than 200 mg/dL in a nonstressed, ambulatory subject supports the diagnosis of Diabetes Mellitus. Performed By: #### G LULS #### Point of Care testing , Glucose [Mass/Vol] 105 mg/dL Normal [facility] Comment on above: Result Comment: [place] om Glucose Reference Range is dependent on time and content of last meal. Glucose of more than 200 mg/dL in a nonstressed, ambulatory subject supports the diagnosis of Diabetes Mellitus. PERFORMED BY: [place] [address] PATHOLOGIST [employer] PILAR VILLARREAL M.D. Performed By: #### G LULS #### Point of Care testing , Prealbuminon 06-17-2022 Prealbumin [Mass/Vol] 24.1 mg/dL Normal 18.0-38.0 [facility] Comment on above: Result Comment: PERF ORMED BY: [place] [address] PATHOLOGIST [employer] PILAR VILLARREAL M.D. Performed By: #### L IPID, A1C WT eA #### [address] Protein [Mass/volume] in Ser um or PlasmaOrdered By: Stiven Zaman on 06-17-2022 Protein [Mass/Vol] 6.9 g/dL 6.1-7.9 [facility] Serum or plasma alanine carney otransferase measurement without P-5'-P (enzymatic activiOrdered By: Stiven Zaman on 06-17-2022 ALT No additional P-5'-P [Catalytic activity/Vol] 39 U/L 10-60 [facility] Serum or plasma albumin/glob ulin mass ratioOrdered By: Stiven Zaman on 06-17-2022 Albumin/Globulin [Mass ratio] 0.9 {ratio} [facility] Serum or plasma alkaline ayad sphatase measurement (enzymatic activity/volume)Ordered By: Stiven Zaman on 06-17-2022 ALP [Catalytic activity/Vol] 76 U/L 32-92 [facility] Serum or plasma aspartate am inotransferase measurement (enzymatic activity/volume)Ordered By: Stiven Zaman on 06-17-2022 AST [Catalytic activity/Vol] 52 U/L 10-42 [facility] Serum or plasma prealbumin m easurement (mass/volume)Ordered By: Stiven Zaman on 06-17-2022 Prealbumin [Mass/Vol] 24.1 mg/dL 18.0-38.0 [facility] Serum or plasma total biliru bin measurement (mass/volume)Ordered By: Stiven Zaman on 06-17-2022 Bilirubin [Mass/Vol] 0.5 mg/dL 0.3-1.2 [facility] Basic Metabolic Panelon Anion gap [Moles/Vol] 14.0 mmol/L Normal 6.0-15.0 [facility] Comment on above: Performed By: #### L IPID, A1C [facility] eA #### [facility] [address] [place] [id number] [place] Calcium [Mass/Vol] 9.5 mg/dL Normal 8.2-10.2 [facility] Comment on above: Performed By: #### L IPID, A1C WT eA #### [facility] [address] [place] [address] [place] Chloride [Moles/Vol] 102 mmol/L Normal 95-114 [facility] Comment on above: Performed By: #### L IPID, A1C [facility] eA #### [facility] [address] [place] [address] [place] CO2 [Moles/Vol] 21.7 mmol/L Low 22.0-30.0 [facility] Comment on above: Performed By: #### L IPID, A1C WTH eA #### [facility] [address] [place] [address] [place] Creatinine [Mass/Vol] 0.83 mg/dL Normal 0.44-1.03 [facility] Comment on above: Performed By: #### L IPID, A1C WTH eA #### [facility] [address] [place] [address] [place] Creatinine Clr Calc Pharmacy 48.32 [facility] Comment on above: Result Comment: PERF ORMED BY: [place] [address] PATHOLOGIST [employer] PILAR VILLARREAL M.D. Performed By: #### L IPID, A1C WTH eA #### [address] Estimated GFR ( Rose > 60 [facility] Comment on above: Result Comment: GFR estimated reference range: According to KDOQI guidelines, <60 ml/min/1.73m2 is sufficient to diagnose a patient with chronic kidney disease. Performed By: #### L IPID, A1C WT eA #### [place] [address] [place] Estimated GFR (Non- Am > 60 [facility] Comment on above: Performed By: #### L IPID, A1C WT eA #### [facility] [address] [place] [address] [place] Glucose [Mass/Vol] 142 mg/dL High 70-100 [facility] Comment on above: Result Comment: [place] om Glucose Reference Range is dependent on time and content of last meal. Glucose of more than 200 mg/dL in a nonstressed, ambulatory subject supports the diagnosis of Diabetes Mellitus. ADA recommended reference range Performed By: #### L IPID, A1C WTH eA #### [place] [address] [place] Potassium [Moles/Vol] 3.7 mmol/L Normal 3.5-5.1 [facility] Comment on above: Performed By: #### L IPID, A1C WTH eA #### [facility] [address] [place] [address] Sodium [Moles/Vol] 134 mmol/L Low 136-146 [facility] Comment on above: Performed By: #### L IPID, A1C WTH eA #### [facility] [address] [place] [address] Urea nitrogen [Mass/Vol] 15 mg/dL Normal 9-23 [facility] Comment on above: Performed By: #### L IPID, A1C WTH eA #### [facility] [address] [place] [address] [place] Basophils Auto (Bld) [#/Vol] Ordered By: Frida De La Cruz on 06-15-2022 Basophils (Bld) [#/Vol] 0.1 10*3/uL 0.0-0.2 [facility] Basophils/100 WBC Auto (Bld) Ordered By: Frida De La Cruz on 06-15-2022 Basophils/100 WBC (Bld) 1.2 % . [facility] Complete Blood Count Auto Di ffon 06-15-2022 Basophils (Bld) [#/Vol] 0.1 10*3/uL Normal 0.0-0.2 [facility] Comment on above: Result Comment: PERF ORMED BY: [place] [address] PATHOLOGIST [employer] PILAR VILLARREAL M.D. Performed By: #### L IPID, [facility] WT eA #### [facility] [address] [place] [address] [place] Basophils/100 WBC (Bld) 1.2 % Normal . [facility] Comment on above: Performed By: #### L IPID, A1C WT eA #### [facility] [address] [place] [address] [place] Eosinophils (Bld) [#/Vol] 0.3 10*3/uL Normal 0.0-0.45 [facility] Comment on above: Performed By: #### L IPID, A1C WTH eA #### [facility] [address] [place] [address] [place] Eosinophils/100 WBC (Bld) 2.6 % Normal . [facility] Comment on above: Performed By: #### L IPID, [address] eA #### [facility] [address] Erythrocyte distribution width (RBC) [Ratio] 13.7 % Normal 11.9-15.3 [facility] Comment on above: Performed By: #### L IPID, [address] eA #### [facility] [address] Hematocrit (Bld) [Volume fraction] 41.4 % Normal 34.0-46.4 [facility] Comment on above: Performed By: #### L IPID, [address] eA #### [facility] [address] Hemoglobin (Bld) [Mass/Vol] 13.6 g/dL Normal 11.8-15.4 [facility] Comment on above: Performed By: #### L IPID, [address] eA #### [facility] [address] [place] [address] [place] Lymphocytes (Bld) [#/Vol] 2.9 10*3/uL Normal 1.00-4.8 [facility] Comment on above: Performed By: #### L IPID, [address] eA #### [place] [address] [place] Lymphocytes/100 WBC (Bld) 27.7 % Normal . [facility] Comment on above: Performed By: #### L IPID, [address] eA #### [facility] [address] [place] [address] [place] MCH (RBC) [Entitic mass] 33.9 pg Normal 24.7-34.3 [facility] Comment on above: Performed By: #### L IPID, [address] eA #### [facility] [address] [place] [address] [place] MCV (RBC) [Entitic vol] 103.3 fL High 80-100 [facility] Comment on above: Performed By: #### L IPID, A1C WTH eA #### [facility] [address] Mean Corpuscular HGB Conc 32.8 g/dL Normal 32.0-35.0 [facility] Comment on above: Performed By: #### L IPID, A1C WTH eA #### [facility] [address] [place] [address] [place] Monocytes (Bld) [#/Vol] 0.7 10*3/uL Normal 0.0-0.8 [facility] Comment on above: Performed By: #### L IPID, A1C WTH eA #### [facility] [address] [place] [address] [place] Monocytes/100 WBC (Bld) 6.9 % Normal . [facility] Comment on above: Performed By: #### L IPID, A1C WTH eA #### [facility] [address] [place] [address] [place] Neutrophils (Bld) [#/Vol] 6.6 10*3/uL Normal 1.8-7.7 [facility] Comment on above: Performed By: #### L IPID, A1C WT eA #### [facility] [address] [place] [address] [place] Neutrophils/100 WBC (Bld) 61.6 % Normal . [facility] Comment on above: Performed By: #### L IPID, A1C WTH eA #### [facility] [address] [place] [address] [place] NRBC% 0.1 /100{WBC} Normal 0-0.5 [facility] Comment on above: Performed By: #### L IPID, A1C WTH eA #### [facility] [address] [place] [address] [place] Platelet mean volume (Bld) [Entitic vol] 8.0 fL Normal 6.3-10.7 [facility] Comment on above: Performed By: #### L IPID, A1C WTH eA #### [facility] [address] [place] [address] [place] Platelets (Bld) [#/Vol] 282 10*3/uL Normal 150-450 [facility] Comment on above: Performed By: #### L IPID, A1C WT eA #### [facility] [address] [place] [address] [place] RBC (Bld) [#/Vol] 4.01 10*6/uL Normal 3.60-5.00 [facility] Comment on above: Performed By: #### L IPID, A1C WT eA #### [facility] [address] [place] [address] [place] WBC (Bld) [#/Vol] 10.7 10*3/uL Normal 3.8-11.6 [facility] Comment on above: Performed By: #### L IPID, A1C [facility] eA #### [facility] [address] [place] [address] [place] Creatinine and Glomerular fi ltration rate.predicted panel (S/P/Bld)Ordered By: Frida De La Cruz on 06-15-2022 Creatinine [Mass/Vol] 0.83 mg/dL 0.44-1.03 [facility] Eosinophils Auto (Bld) [#/Vo l]Ordered By: Frida De La Cruz on 06-15-2022 Eosinophils (Bld) [#/Vol] 0.3 10*3/uL 0.0-0.45 [facility] Eosinophils/100 WBC Auto (Bl d)Ordered By: Frida De La Cruz on 06-15-2022 Eosinophils/100 WBC (Bld) 2.6 % . [facility] Erythrocyte distribution wid th Auto (RBC) [Ratio]Ordered By: Frida De La Cruz on 06-15-2022 Erythrocyte distribution width (RBC) [Ratio] 13.7 % 11.9-15.3 [facility] Estimated glomerular filtrat ion rate (GFR) non- AmericanOrdered By: Frida De La Cruz on 06-15-2022 GFR/1.73 sq M.predicted among non-blacks MDRD (S/P/Bld) [Vol rate/Area] > 60 mL/Min [facility] Hematocrit Auto (Bld) [Volum e fraction]Ordered By: Frida De La Cruz on 06-15-2022 Hematocrit (Bld) [Volume fraction] 41.4 % 34.0-46.4 [facility] Hemoglobin [Mass/volume] in BloodOrdered By: Frida De La Cruz on 06-15-2022 Hemoglobin (Bld) [Mass/Vol] 13.6 g/dL 11.8-15.4 [facility] Leukocytes [#/volume] correc zoe for nucleated erythrocytes in Blood by Automated counOrdered By: Frida De La Cruz on 06-15-2022 WBC corrected for nucl RBC Auto (Bld) [#/Vol] 10.7 10*3/uL 3.8-11.6 [facility] Lymphocytes Auto (Bld) [#/Vo l]Ordered By: Frida De La Cruz on 06-15-2022 Lymphocytes (Bld) [#/Vol] 2.9 10*3/uL 1.00-4.8 [facility] Lymphocytes/100 WBC Auto (Bl d)Ordered By: Frida De La Cruz on 06-15-2022 Lymphocytes/100 WBC (Bld) 27.7 % . [facility] MCH Auto (RBC) [Entitic mass ]Ordered By: Frida De La Cruz on 06-15-2022 MCH (RBC) [Entitic mass] 33.9 pg 24.7-34.3 [facility] MCHC Auto (RBC) [Mass/Vol]Or dered By: Frida De La Cruz on 06-15-2022 MCHC (RBC) [Mass/Vol] 32.8 g/dL 32.0-35.0 [facility] MCV Auto (RBC) [Entitic vol] Ordered By: Frida De La Cruz on 06-15-2022 MCV (RBC) [Entitic vol] 103.3 fL 80-100 [facility] Monocytes Auto (Bld) [#/Vol] Ordered By: Frida De La Cruz on 06-15-2022 Monocytes (Bld) [#/Vol] 0.7 10*3/uL 0.0-0.8 [facility] Monocytes/100 WBC Auto (Bld) Ordered By: Frida De La Cruz on 06-15-2022 Monocytes/100 WBC (Bld) 6.9 % . [facility] Neutrophils Auto (Bld) [#/Vo l]Ordered By: Frida De La Cruz on 06-15-2022 Neutrophils (Bld) [#/Vol] 6.6 10*3/uL 1.8-7.7 [facility] Neutrophils/100 WBC Auto (Bl d)Ordered By: Frida De La Cruz on 06-15-2022 Neutrophils/100 WBC (Bld) 61.6 % . [facility] No Panel InformationOrdered By: Frida De La Cruz on 06-15-2022 Estimated GFR () > 60 mL/Min [facility] Comment on above: GFR estimated refere nce range: According to KDOQI guidelines, <60 ml/min/1.73m2 is sufficient to diagnose a patient with chronic kidney disease. Pharmacy Creatinine Clearance (Chem 48.32 [facility] Nucleated erythrocytes [Pres ence] in Blood by Automated countOrdered By: Frida De La Cruz on 06-15-2022 Nucleated RBC Auto Ql (Bld) 0.1 /100{WBC} 0-0.5 [facility] Platelet mean volume Auto (B ld) [Entitic vol]Ordered By: Frida De La Cruz on 06-15-2022 Platelet mean volume (Bld) [Entitic vol] 8.0 fL 6.3-10.7 [facility] Platelets Auto (Bld) [#/Vol] Ordered By: Frida De La Cruz on 06-15-2022 Platelets (Bld) [#/Vol] 282 10*3/uL 150-450 [facility] RBC Auto (Bld) [#/Vol]Ordere d By: Frida De La Cruz on 06-15-2022 RBC (Bld) [#/Vol] 4.01 10*6/uL 3.60-5.00 [facility] Serum or plasma anion gap de terminationOrdered By: Frida De La Cruz on 06-15-2022 Anion gap [Moles/Vol] 14.0 mmol/L 6.0-15.0 [facility] Serum or plasma calcium jerrod urement (mass/volume)Ordered By: Frida De La Cruz on 06-15-2022 Calcium [Mass/Vol] 9.5 mg/dL 8.2-10.2 [facility] Serum or plasma chloride salma surement (moles/volume)Ordered By: Frida De La Cruz on 06-15-2022 Chloride [Moles/Vol] 102 mmol/L 95-114 [facility] Serum or plasma glucose jerrod urement (mass/volume)Ordered By: Frida De La Cruz on 06-15-2022 Glucose [Mass/Vol] 142 mg/dL 70-100 [facility] Comment on above: ADA recommended refe rence rangeRandom Glucose Reference Range is dependent on time and content of last meal. Glucose of more than 200 mg/dL in a nonstressed, ambulatory subject supports the diagnosis of Diabetes Mellitus. Serum or plasma potassium me asurement (moles/volume)Ordered By: Frida De La Cruz on 06-15-2022 Potassium [Moles/Vol] 3.7 mmol/L 3.5-5.1 [facility] Serum or plasma sodium measu rement (moles/volume)Ordered By: Frida De La Cruz on 06-15-2022 Sodium [Moles/Vol] 134 mmol/L 136-146 [facility] Serum or plasma total carbon dioxide measurement (moles/volume)Ordered By: Frida De La Cruz on 06-15-2022 CO2 [Moles/Vol] 21.7 mmol/L 22.0-30.0 [facility] Serum or plasma urea nitroge n measurement (mass/volume)Ordered By: Frida De La Cruz on 06-15-2022 Urea nitrogen [Mass/Vol] 15 mg/dL 9-23 [facility] WBC Auto (Bld) [#/Vol]Ordere d By: Frida De La Cruz on 06-15-2022 WBC (Bld) [#/Vol] 10.7 10*3/uL 3.8-11.6 [facility] ECG 12 lead ECGon 06-14-2022 ECG 12 lead ECG [facility] Main [place] [id number] Electrocardiograph Report Signed Patient: Abdirahman Gomez MR#: [id number] : 1940 Acct:[id number] Age/Sex: 81 / F ADM Date: 06/09/22 Loc: 3T Room: [address] [place] [address] Type: DIS IN Attending Dr: Frida De La Cruz MD Ordering Provider: Nathaniel Castillo MD Date of Service: 06/14/2207/06/1449 ECG/ECG 12 lead ECG: cp Copies to: Test Reason : Blood Pressure : / mmHG Vent. Rate : 075 BPM Atrial Rate : 077 BPM P-R Int : 000 ms QRS Dur : 088 ms QT Int : 396 ms P-R-T Axes : 000 -10 101 degrees QTc Int : 442 ms Normal sinus rhythm with first degree AV block Inferior infarct Consider right ventricular involvement in acute inferior infarct Abnormal ECG When compared with ECG of 13-JUN-2022 06:33, (Unconfirmed) No significant change was found Confirmed by YOAV PRADO MD ([id number]) on 06/15/2022 6:17:14 AM Referred By: Electronically Signed By:YOAV PRADO MD Transcribed By: MUS Signed By Yoav Prado MD 0 06/15/22 0617 Normal [facility] Troponin I High Sensitivityo n 06-14-2022 Troponin I High Sensitivity 906 pg/mL Off scale high 0-15 [facility] Comment on above: Result Comment: Crit ical value result called at 1642 on 06/14/22 PERFORMED BY: [facility] [place] [address] PATHOLOGIST [employer] PILAR VILLARREAL M.D. Performed By: #### G LULS #### Point of Care testing , Troponin I.cardiac [Mass/vol ume] in Serum or Plasma by High sensitivity methodOrdered By: Nathaniel Castillo on 06-14-2022 Troponin I.cardiac High sensitivity method [Mass/Vol] 906 pg/mL 0-15 [facility] Comment on above: Critical valueresult calledat 1642 on 06/14/22 A1C with Estimated Average G antoinepatricia 06-13-2022 Glucose [Mass/Vol] 123 mg/dL Normal [facility] Comment on above: Result Comment: PERF ORMED BY: [place] [address] PATHOLOGIST [employer] PILAR VILLARREAL M.D. Performed By: #### L IPID, A1C WT eA #### [facility] [address] [place] [address] HbA1c (Bld) [Mass fraction] 5.9 % High 4.3-5.6 [facility] Comment on above: Result Comment: Incr eased risk for diabetes: 5.7 - 6.4 diabetes: >6.4 glycemic control for adults with diabetes: <7.0 Performed By: #### L IPID, A1C WT eA #### [address] Cholesterol [Mass/volume] in Serum or PlasmaOrdered By: Nathaniel Castillo on 06-13-2022 Cholesterol [Mass/Vol] 150 mg/dL 140-200 [facility] Comment on above: Chol less than 200 m g/dl low riskChol 201-239 mg/dl borderline riskChol 240 mg/dl and greater high risk Cholesterol in LDL Calc [Mas s/Vol]Ordered By: Nathaniel Castillo on 06-13-2022 Cholesterol in LDL [Mass/Vol] 80 mg/dL 0-100 [facility] Comment on above: LDL ATP III CLASSIFI CATIONLDL less than 100 mg/dL OptimalLDL 100-129 mg/dL Near or above optimalLDL 130-159 mg/dL Borderline highLDL 160-189 mg/dL HighLDL greater than 189 mg/dL Very high Cholesterol in VLDL Calc [Ma ss/Vol]Ordered By: Nathaniel Castillo on 06-13-2022 Cholesterol in VLDL [Mass/Vol] 25 mg/dL [facility] ECG 12 lead ECGon 06-13-2022 ECG 12 lead ECG [facility] Main [place] [address] [place] [address] Electrocardiograph Report Signed Patient: Abdirahman Gomez MR#: [id number] : 1940 Acct:[id number] Age/Sex: 81 / F ADM Date: 06/09/22 Loc: Room: [address] [place] [address] Type: DIS IN Attending Dr: Frida De La Cruz MD Ordering Provider: Frida De La Cruz MD Date of Service: 06/13/22 ECG/ECG 12 lead ECG: abn ekg Copies to: Test Reason : Blood Pressure : / mmHG Vent. Rate : 067 BPM Atrial Rate : 066 BPM P-R Int : 000 ms QRS Dur : 086 ms QT Int : 430 ms P-R-T Axes : 000 -34 100 degrees QTc Int : 454 ms sinus rhythm with first degree AV block Low voltage QRS Nonspecific ST and T wave abnormality Abnormal ECG When compared with ECG of 13-JUN-2022 06:33, (Unconfirmed) Confirmed by OUSMANE EPSTEIN DO ([id number]) on 06/15/2022 11:19:44 AM Referred By: Electronically Signed By:OUSMANE EPSTEIN DO Transcribed By: MUS Signed By Ousmane Epstein DO 06/15 1119 Normal [facility] Glucose mean value [Mass/vol ume] in Blood Estimated from glycated hemoglobinOrdered By: Nathaniel Castillo on 06-13-2022 Average glucose Estimated from glycated hemoglobin (Bld) [Mass/Vol] 123 mg/dL [facility] Hemoglobin A1c percentageOrd ered By: Nathaniel Castillo on 06-13-2022 HbA1c (Bld) [Mass fraction] 5.9 % 4.3-5.6 [facility] Comment on above: Increased risk for d iabetes: 5.7 - 6.4diabetes: >6.4glycemic control for adults with diabetes: <7.0 Lipid Panelon 06-13-2022 Cholesterol [Mass/Vol] 150 mg/dL Normal 140-200 [facility] Comment on above: Result Comment: Chol less than 200 mg/dl low risk Chol 201-239 mg/dl borderline risk Chol 240 mg/dl and greater high risk Performed By: #### L IPID, A1C [facility] #### [address] Cholesterol in HDL [Mass/Vol] 45 mg/dL Normal 35-85 [facility] Comment on above: Result Comment: HDL CHOL ATP-III CLASSIFICATION Cardiovascular Risk HDL > or equal to 60 mg/dL LOW HDL < 40 mg/dL HIGH Performed By: #### L IPID, [address] eA #### [facility] [address] Cholesterol.total/Gabriela sterol in HDL [Mass ratio] 3.3 {ratio} Normal <5.0 [facility] Comment on above: Result Comment: PERF ORMED BY: [place] [address] PATHOLOGIST [employer] PILAR VILLARREAL M.D. Performed By: #### L IPID, [address] eA #### [facility] [address] LDL Cholesterol,Calculated 80 mg/dL Normal 0-100 [facility] Comment on above: Result Comment: LDL ATP III CLASSIFICATION LDL less than 100 mg/dL Optimal LDL 100-129 mg/dL Near or above optimal LDL 130-159 mg/dL Borderline high LDL 160-189 mg/dL High LDL greater than 189 mg/dL Very high Performed By: #### L IPID, [address] eA #### [address] Triglyceride w/Reflex 127 mg/dL Normal 35-149 [facility] Comment on above: Result Comment: TRIG ATP III CLASSIFICATION TRIG less than 150 mg/dL Normal TRIG 150-199 mg/dL Borderline high TRIG 200-500 mg/dL High TRIG greater than 500 mg/dL Very high Standard traceable to the Center for Disease Conrtrol and Prevention (CDC) test method. Performed By: #### L IPID, [address] eA #### [facility] [address] [place] [address] VLDL CHOLESTEROL 25 mg/dL Normal [facility] Comment on above: Performed By: #### L IPID, [address] eA #### [facility] [address] [place] [address] Serum or plasma high density lipoprotein (HDL) cholesterol measurementOrdered By: Nathaniel Castillo on 06-13-2022 Cholesterol in HDL [Mass/Vol] 45 mg/dL 35-85 [facility] Comment on above: HDL CHOL ATP-III CLA SSIFICATION Cardiovascular RiskHDL > or equal to 60 mg/dL LOWHDL < 40 mg/dL HIGH Serum or plasma total choles terol/high density lipoprotein (HDL) cholesterol mass ratOrdered By: Nathaniel Castillo on 06-13-2022 Cholesterol.total/Gabriela sterol in HDL [Mass ratio] 3.3 {ratio} <5.0 [facility] Triglyceride [Mass/volume] i n Serum or PlasmaOrdered By: Nathaniel Castillo on 06-13-2022 Triglyceride [Mass/Vol] 127 mg/dL 35-149 [facility] Comment on above: TRIG ATP III CLASSIF ICATIONTRIG less than 150 mg/dL NormalTRIG 150-199 mg/dL Borderline highTRIG 200-500 mg/dL High TRIG greater than 500 mg/dL Very highStandard traceable to the Center for Disease Conrtrol and Prevention (CDC) test method. MR angio head wo conon 06-12 MR angio head wo con [facility] [place] [address] MRI Report Signed Patient: Abdirahman Gomez MR#: [id number] : 1940 Acct:[id number] Age/Sex: 81 / F ADM Date: 06/09/22 Loc: Room: [address] [place] [address] Type: ADM IN Attending Dr: Nathaniel Castillo MD Copies to: Nathaniel Castillo MD Ordering Provider: Nathaniel Castillo MD Date of Service: 06/12/22 MR/MR angio head wo con: stroke MRA OF THE INTRACRANIAL CIRCULATION TECHNIQUE: 3-D zeit-ao-ugtlda imaging of the [place] obtained. HISTORY:LEFT arm weakness. The visualized carotid and the vertebrobasilar system are unremarkable. No abnormality of the anterior, middle and posterior cerebral arteries identified. No arterial occlusion, stenosis or dissection identified. No intracranial aneurysm identified. MR/MR angio head wo con IMPRESSION: UNREMARKABLE MRA OF THE INTRACRANIAL CIRCULATION. Impression dictated by: Mamadou Rodríguez M.D.06/12/2022 1:36 PM Dictation Location: [place] [address] Transcribed By: [facility] 06/12/22 1336 Dictated By: Mamadou Rodríguez DO 06/12/22 1330 Signed By: 06/12/22 1336 [facility] MR head/brain wo conon 06-12 MR head/brain wo con [facility] [place] [address] [place] [address] MRI Report Signed Patient: Abdirahman Gomez MR#: [id number] : 1940 Acct:[id number] Age/Sex: 81 / F ADM Date: 06/09/22 Loc: 3T Room: [address] [place] [address] Type: ADM IN Attending Dr: Nathaniel Castillo MD Copies to: Nathaniel Castillo MD Ordering Provider: Nathaniel Castillo MD Date of Service: 06/12/22 MR/MR head/brain wo con: stroke EXAMINATION: MRI OF THE BRAIN WITHOUT CONTRAST CLINICAL HISTORY: Left arm weakness. Fall. COMPARISON: None TECHNIQUE: Multiecho, multiplanar imaging of the brain was performed without enhancement. There appears to be large area of restricted diffusion involving the right parietal lobe extending into the insular cortex and small area involving the left occipital lobe with associated T2 and T2 FLAIR abnormal signal suggestive of a subacute infarct. No blood products are seen on GRE imaging. Cortical atrophy with moderate chronic microvascular ischemic changes. No midline shift. No transtentorial herniation. Ventricular system appears grossly unremarkable. Midbrain, mahesh, medulla and cerebellum all appear grossly unremarkable. Intraorbital contents appear grossly unremarkable. Visualized paranasal sinuses are clear. 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 THIS APPEARS TO EXTEND INTO THE INSULAR CORTEX. SMALL AREA OF SUBACUTE ISCHEMIC INFARCT INVOLVING THE LEFT OCCIPITAL LOBE. CORTICAL ATROPHY WITH CHRONIC MICROVASCULAR ISCHEMIC CHANGES. Findings were discussed with Cheryl of the hospitalist service 06/12/2022 at 10:01 AM. Impression dictated by: Stiven Beasley Jr., D.O.06/12/2022 10:02 AM Dictation Location: [place] [address] Transcribed By: CHANDRAKANT 06/12/22 1002 Dictated By: Stiven Beasley Jr, DO 06/12/22 0950 Signed By: 06/12/22 1002 [facility] Complete Blood Count Auto Di ffon 06-11-2022 Basophils (Bld) [#/Vol] 0.1 10*3/uL Normal 0.0-0.2 [facility] Comment on above: Result Comment: PERF ORMED BY: [facility] [id number] PATHOLOGIST [employer] PILAR VILLARREAL M.D. Performed By: #### G LULS #### Point of Care testing , Basophils/100 WBC (Bld) 0.5 % Normal . [facility] Comment on above: Performed By: #### G LULS #### Point of Care testing , Eosinophils (Bld) [#/Vol] 0.1 10*3/uL Normal 0.0-0.45 [facility] Comment on above: Performed By: #### G LULS #### Point of Care testing , Eosinophils/100 WBC (Bld) 1.2 % Normal . [facility] Comment on above: Performed By: #### G LULS #### Point of Care testing , Erythrocyte distribution width (RBC) [Ratio] 13.6 % Normal 11.9-15.3 [facility] Comment on above: Performed By: #### G LULS #### Point of Care testing , Hematocrit (Bld) [Volume fraction] 37.7 % Normal 34.0-46.4 [facility] Comment on above: Performed By: #### G LULS #### Point of Care testing , Hemoglobin (Bld) [Mass/Vol] 12.4 g/dL Normal 11.8-15.4 [facility] Comment on above: Performed By: #### G LULS #### Point of Care testing , Lymphocytes (Bld) [#/Vol] 2.8 10*3/uL Normal 1.00-4.8 [facility] Comment on above: Performed By: #### G LULS #### Point of Care testing , Lymphocytes/100 WBC (Bld) 24.1 % Normal . [facility] Comment on above: Performed By: #### G LULS #### Point of Care testing , MCH (RBC) [Entitic mass] 34.5 pg High 24.7-34.3 [facility] Comment on above: Performed By: #### G LULS #### Point of Care testing , MCV (RBC) [Entitic vol] 104.5 fL High 80-100 [facility] Comment on above: Performed By: #### G CARLEENLS #### Point of Care testing , Mean Corpuscular HGB Conc 33.0 g/dL Normal 32.0-35.0 [facility] Comment on above: Performed By: #### G CARLEENLS #### Point of Care testing , Monocytes (Bld) [#/Vol] 1.0 10*3/uL High 0.0-0.8 [facility] Comment on above: Performed By: #### G CARLEENLS #### Point of Care testing , Monocytes/100 WBC (Bld) 9.1 % Normal . [facility] Comment on above: Performed By: #### G CARLEENLS #### Point of Care testing , Neutrophils (Bld) [#/Vol] 7.4 10*3/uL Normal 1.8-7.7 [facility] Comment on above: Performed By: #### Ginna DURANTLS #### Point of Care testing , Neutrophils/100 WBC (Bld) 65.1 % Normal . [facility] Comment on above: Performed By: #### Ginna MALONE #### Point of Care testing , NRBC% 0.1 /100{WBC} Normal 0-0.5 [facility] Comment on above: Performed By: #### G KIRA #### Point of Care testing , Platelet mean volume (Bld) [Entitic vol] 8.0 fL Normal 6.3-10.7 [facility] Comment on above: Performed By: #### Ginna MALONE #### Point of Care testing , Platelets (Bld) [#/Vol] 206 10*3/uL Normal 150-450 [facility] Comment on above: Performed By: #### Ginna DURANTLS #### Point of Care testing , RBC (Bld) [#/Vol] 3.61 10*6/uL Normal 3.60-5.00 [facility] Comment on above: Performed By: #### Ginna MALONE #### Point of Care testing , WBC (Bld) [#/Vol] 11.4 10*3/uL Normal 3.8-11.6 [facility] Comment on above: Performed By: #### G KIRA #### Point of Care testing , ECG 12 lead ECGon 06-11-2022 ECG 12 lead ECG [facility] [place] [address] [place] [id number] Electrocardiograph Report Signed Patient: Abdirahman Gomez MR#: [id number] : 1940 Acct:[id number] Age/Sex: 81 / F ADM Date: 06/09/22 Loc: Room: [address] [place] [address] Type: DIS IN Attending Dr: Frida De La Cruz MD Ordering Provider: Nathaniel Castillo MD Date of Service: 06/11/22 ECG/ECG 12 lead ECG: nstemi Copies to: Test Reason : Blood Pressure : / mmHG Vent. Rate : 072 BPM Atrial Rate : 069 BPM P-R Int : 000 ms QRS Dur : 088 ms QT Int : 384 ms P-R-T Axes : 000 -03 093 degrees QTc Int : 420 ms Atrial fibrillation Possible Anterior infarct (cited on or before 10-JUN-2022) Abnormal ECG When compared with ECG of 10-JUN-2022 11:09, Atrial fibrillation has replaced Sinus rhythm Confirmed by YOAV PRADO MD ([id number]) on 06/11/2022 1:18:48 PM Referred By: Electronically Signed By:YOAV PRADO MD Transcribed By: MUS Signed By Yoav Prado MD 1 1318 Normal [facility] Troponin I High Sensitivityo n 06-11-2022 Troponin I High Sensitivity 3701 pg/mL Off scale high 0-15 [facility] Comment on above: Result Comment: Resu lts called at 0655 on 06/11/22 PERFORMED BY: [place] [address] PATHOLOGIST [employer] PILAR VILLARREAL M.D. Performed By: #### L IPID, A1C WTH eA #### [place] [id number] [place] XR chest 1V portableon 06-11 XR chest 1V portable [facility] Main [place] [id number] XRay Report Signed Patient: Abdirahman Gomez MR#: [id number] : 1940 Acct:[id number] Age/Sex: 81 / F ADM Date: 06/09/22 Loc: 3T Room: [address] [place] [address] Type: ADM IN Attending Dr: Nathaniel Castillo MD Copies to: Nathaniel Castillo MD Ordering Provider: Nathaniel Castillo MD Date of Service: 06/11/22 XR/XR chest 1V portable: for pacemaker lead check SINGLE VIEW CHEST CLINICAL HISTORY: Pacemaker lead placement evaluation COMPARISON: None FINDINGS: Dual-lead pacemaker device is in place without radiographic complication. Post CABG changes are seen. Heart appears normal in size. No consolidation pneumothorax pleural effusion or free air. Calcified right apical pleural plaquing. XR/XR chest 1V portable IMPRESSION: DUAL-LEAD PACEMAKER DEVICE IN PLACE WITHOUT RADIOGRAPHIC COMPLICATION. Impression dictated by: Stiven Beasley Jr., D.OHuma06/11/2022 3:33 PM Dictation Location: [place] [address] Transcribed By: [facility] 06/11/22 1533 Dictated By: Stiven Beasley Jr DO 06/11/22 1533 Signed By: 06/11/22 1533 Normal [facility] ECG 12 lead ECGon 06-10-2022 ECG 12 lead ECG [facility] Main [place] [id number] Electrocardiograph Report Signed Patient: Abdirahman Gomez MR#: [id number] : 1940 Acct:[id number] Age/Sex: 81 / F ADM Date: 06/09/22 Loc: 3T Room: [address] [place] [address] Type: DIS IN Attending Dr: Frida De La Cruz MD Ordering Provider: Paramjit Pride MD Date of Service: 06/10/22 ECG/ECG 12 lead ECG: ekg changes Copies to: Test Reason : Blood Pressure : / mmHG Vent. Rate : 072 BPM Atrial Rate : 072 BPM P-R Int : 000 ms QRS Dur : 088 ms QT Int : 394 ms P-R-T Axes : 000 -18 100 degrees QTc Int : 431 ms Normal sinus rhythm Inferior infarct (cited on or before 10-JUN-2022) Poor anterior R wave progression Nonspecific ST and T wave abnormality Abnormal ECG When compared with ECG of 10-JUN-2022 09:57, (Unconfirmed) No significant change was found Confirmed by YOAV PRADO MD ([id number]) on 06/10/2022 4:26:51 PM Referred By: ELAINE Electronically Signed By:YOAV PRADO MD Transcribed By: REVA Signed By Yoav Prado MD 1 08/11/21 1626 Normal [facility] ECG 12 lead ECG [facility] [place] [address] Electrocardiograph Report Signed Patient: Abdirahman Gomez MR#: [id number] : 1940 Acct:[id number] Age/Sex: 81 / F ADM Date: 06/09/22 Loc: Room: [address] [place] [address] Type: DIS IN Attending Dr: Frida De La Cruz MD Ordering Provider: Nathaniel Castillo MD Date of Service: 06/10/22 ECG/ECG 12 lead ECG: nstemi Copies to: Test Reason : Blood Pressure : / mmHG Vent. Rate : 070 BPM Atrial Rate : 441 BPM P-R Int : 000 ms QRS Dur : 088 ms QT Int : 394 ms P-R-T Axes : 000 -23 097 degrees QTc Int : 425 ms Normal sinus rhythm Inferior infarct , age undetermined Poor anterior R wave progression Abnormal ECG When compared with ECG of 09-JUN-2022 06:07, No significant change was found Confirmed by YOAV PRADO MD ([id number]) on 06/10/2022 4:26:02 PM Referred By: Electronically Signed By:YOAV PRADO MD Transcribed By: MUS Signed By Yoav Prado MD 1 08/11/21 1626 [facility] Basic Metabolic Panelon 12-2 Anion gap [Moles/Vol] 13.4 mmol/L Normal 6.0-15.0 [facility] Comment on above: Performed By: #### L IPID, A1C WTH eA #### [facility] [address] Calcium [Mass/Vol] 8.9 mg/dL Normal 8.2-10.2 [facility] Comment on above: Performed By: #### L IPID, A1C WT eA #### [facility] [address] [place] [address] [place] Chloride [Moles/Vol] 106 mmol/L Normal 95-114 [facility] Comment on above: Performed By: #### L IPID, A1C WT eA #### [facility] [address] CO2 [Moles/Vol] 21.6 mmol/L Low 22.0-30.0 [facility] Comment on above: Performed By: #### L IPID, A1C WT eA #### [facility] [address] Creatinine [Mass/Vol] 0.76 mg/dL Normal 0.44-1.03 [facility] Comment on above: Performed By: #### L IPID, A1C WT eA #### [facility] [address] [place] [address] [place] Creatinine Clr Calc Pharmacy 49.92 [facility] Comment on above: Performed By: #### L IPID, A1C WT eA #### [facility] [address] [place] [address] [place] Estimated GFR ( Rose > 60 [facility] Comment on above: Result Comment: GFR estimated reference range: According to KDOQI guidelines, <60 ml/min/1.73m2 is sufficient to diagnose a patient with chronic kidney disease. Performed By: #### L IPID, A1C WT eA #### [facility] [address] [place] [address] [place] Estimated GFR (Non- Am > 60 Normal [facility] Comment on above: Performed By: #### L IPID, A1C WTH eA #### [facility] [address] [place] [id number] [place] Glucose [Mass/Vol] 136 mg/dL High 70-100 [facility] Comment on above: Result Comment: [place] Glucose Reference Range is dependent on time and content of last meal. Glucose of more than 200 mg/dL in a nonstressed, ambulatory subject supports the diagnosis of Diabetes Mellitus. ADA recommended reference range Performed By: #### L IPID, A1C WTH eA #### [facility] [address] [place] [address] [place] Potassium [Moles/Vol] 4.0 mmol/L Normal 3.5-5.1 [facility] Comment on above: Performed By: #### L IPID, A1C WTH eA #### [facility] [address] [place] [address] [place] Sodium [Moles/Vol] 137 mmol/L Normal 136-146 [facility] Comment on above: Performed By: #### L IPID, A1C WTH eA #### [facility] [address] [place] [address] [place] Urea nitrogen [Mass/Vol] 9 mg/dL Normal 9-23 [facility] Comment on above: Performed By: #### L IPID, A1C WTH eA #### [facility] [address] [place] [id number] [place] CBC W MANUAL DIFFon 06-09-20 22 ATYPICAL LYMPH # 0.53 103/ul Normal [facility] Comment on above: Performed By: #### T SH, BNP, CMP, LIPID, T7 #### Laboratory [address] [place] [address] [address] Logan Payne ATYPICAL LYMPH % 4 % Normal [facility] Comment on above: Performed By: #### T SH, BNP, CMP, LIPID, T7 #### [address] [place] [address] [address] Logan Payne BAND # 0.0 103/ul Normal 0.0-0.3 [facility] Comment on above: Performed By: #### T SH, BNP, CMP, LIPID, T7 #### [address] [place] [address] [address] Logan Payne BAND % 0 % Normal 0-5 [facility] Comment on above: Performed By: #### T SH, BNP, CMP, LIPID, T7 #### Laboratory [address] [place] [address] Dr. Logan Payne BASOM # 0.26 103/ul Critically high 0.00-0.10 [facility] Comment on above: Performed By: #### T SH, BNP, CMP, LIPID, T7 #### [facility] [address] [place] [address] [address] Logan MERCADOOM % 2.0 % Normal 0.2-2.0 [facility] Comment on above: Performed By: #### T SH, BNP, CMP, LIPID, T7 #### Laboratory [address] [place] [address] Dr. Logan Payne BLAST # Normal [facility] Comment on above: Performed By: #### T SH, BNP, CMP, LIPID, T7 #### [facility] [address] [place] [address] [address] Logan Payne BLAST % Normal [facility] Comment on above: Performed By: #### T SH, BNP, CMP, LIPID, T7 #### Laboratory [address] [place] [address] Dr. Logan Payne CORRECTED WBC Normal 4.0-11.0 [facility] Comment on above: Performed By: #### T SH, BNP, CMP, LIPID, T7 #### Laboratory [address] [place] [address] [address] Logan Payne EOS # 0.66 103/ul Normal 0.00-0.70 [facility] Comment on above: Performed By: #### T SH, BNP, CMP, LIPID, T7 #### [address] [place] [address] [address] Logan Payne EOS% 5.0 % Normal 0.9-7.0 [facility] Comment on above: Performed By: #### T SH, BNP, CMP, LIPID, T7 #### [facility] [address] [place] [address] [address] Logan Payne HCT 39.6 % Normal 36.0-48.0 [facility] Comment on above: Performed By: #### T SH, BNP, CMP, LIPID, T7 #### Laboratory [address] [place] [address] Dr. Logan Payne HGB 13.5 g/dl Normal 12.0-16.0 [facility] Comment on above: Performed By: #### T SH, BNP, CMP, LIPID, T7 #### Laboratory [address] [place] [address] Dr. Logan Payne LYMPHM # 1.98 103/ul Normal 1.20-3.80 [facility] Comment on above: Performed By: #### T SH, BNP, CMP, LIPID, T7 #### Laboratory [address] [place] [address] Dr. Logan Payne LYMPHM% 15.0 % Critically low 20.5-60.0 [facility] Comment on above: Performed By: #### T SH, BNP, CMP, LIPID, T7 #### Laboratory [address] [place] [address] Dr. Logan Payne MCH 34.1 pg Critically high 26.7-34.0 [facility] Comment on above: Performed By: #### T SH, BNP, CMP, LIPID, T7 #### [address] [place] [address] [address] Logan Payne MCHC 34.1 g/dl Normal 29.9-35.2 The Comment on above: Performed By: #### T SH, BNP, CMP, LIPID, T7 #### Laboratory [address] [place] [address] Dr. Logan Payne MCV 100.0 fL Critically high 81.0-99.0 [facility] Comment on above: Performed By: #### T SH, BNP, CMP, LIPID, T7 #### Laboratory [address] [place] [address] Dr. Logan Payne METAMYELOCYTE # Normal [facility] [place] Comment on above: Performed By: #### T SH, BNP, CMP, LIPID, T7 #### Laboratory [address] [place] [address] Dr. Logan Payne METAMYELOCYTE % Normal [facility] Comment on above: Performed By: #### T SH, BNP, CMP, LIPID, T7 #### Laboratory [address] [place] [address] Dr. Logan Payne MONOM# 1.85 103/ul Critically high 0.30-0.80 [facility] Comment on above: Performed By: #### T SH, BNP, CMP, LIPID, T7 #### Laboratory [address] [place] [address] Dr. Logan Payne MONOM% 14.0 % Critically high 1.7-12.0 [facility] Comment on above: Performed By: #### T SH, BNP, CMP, LIPID, T7 #### Laboratory [address] [place] [address] Dr. Logan Payne MPV 9.3 fL Critically low 9.5-13.5 [facility] Comment on above: Performed By: #### T SH, BNP, CMP, LIPID, T7 #### Laboratory [address] [place] [address] Dr. Logan Payne MYELOCYTE # Normal [facility] Comment on above: Performed By: #### T SH, BNP, CMP, LIPID, T7 #### Laboratory [address] [place] [address] Dr. Logan Payne MYELOCYTE % Normal The Comment on above: Performed By: #### T SH, BNP, CMP, LIPID, T7 #### Laboratory [address] [place] [address] Dr. Logan Payne NRBC Normal [facility] Comment on above: Performed By: #### T SH, BNP, CMP, LIPID, T7 #### Laboratory [address] [place] [address] Dr. Logan Payne PLT 219 103/ul Normal 150-450 The Comment on above: Performed By: #### T SH, BNP, CMP, LIPID, T7 #### Laboratory [address] [place] [address] [address] Logan Payne RBC 3.96 106/ul Critically low 4.20-5.40 [facility] Comment on above: Performed By: #### T SH, BNP, CMP, LIPID, T7 #### Laboratory [address] [place] [address] Dr. Logan Payne RDW 13.2 % Normal 11.0-15.0 [facility] Comment on above: Performed By: #### T SH, BNP, CMP, LIPID, T7 #### Laboratory [address] [place] [address] Dr. Logan Payne SEG # 7.92 103/ul Critically high 1.40-6.50 [facility] Comment on above: Performed By: #### T SH, BNP, CMP, LIPID, T7 #### Laboratory [address] [place] [address] Dr. Logan Payne SEG % 60.0 % Normal 43.0-75.0 [facility] Comment on above: Performed By: #### T SH, BNP, CMP, LIPID, T7 #### Laboratory [address] [place] [address] Dr. Logan Payne WBC 13.2 103/ul Critically high 4.0-11.0 [facility] Comment on above: Performed By: #### T SH, BNP, CMP, LIPID, T7 #### Laboratory [address] [place] [address] Dr. Logan Payne CULTURE BLOODon 06-09-2022 Microscopic examination of blood, culture Culture Observations: NO GROWTH AT 5 DAYS. Isolate 1 [id number] Normal [facility] Comment on above: Performed By: #### T SH, BNP, CMP, LIPID, T7 #### Laboratory [address] [place] [address] Dr. Logan Payne Microscopic examination of blood, culture Culture Observations: NO GROWTH AT 5 DAYS. Isolate 1 [id number] [facility] Comment on above: Performed By: #### T SH, BNP, CMP, LIPID, T7 #### Laboratory [address] [place], [place] [address] Dr. Logan Payne Complete Blood Count Auto Di ffon 06-09-2022 Basophils (Bld) [#/Vol] 0.1 10*3/uL Normal 0.0-0.2 [facility] Comment on above: Result Comment: PERF ORMED BY: [place] [address] PATHOLOGIST [employer] PILAR VILLARREAL M.D. Performed By: #### L IPID, A1C WTH eA #### [facility] [address] [place] [address] [place] Basophils/100 WBC (Bld) 0.4 % Normal . [facility] Comment on above: Performed By: #### L IPID, A1C WTH eA #### [facility] [address] [place] [address] [place] Eosinophils (Bld) [#/Vol] 0.1 10*3/uL Normal 0.0-0.45 [facility] Comment on above: Performed By: #### L IPID, A1C WTH eA #### [facility] [address] [place] [address] [place] Eosinophils/100 WBC (Bld) 0.5 % Normal . [facility] Comment on above: Performed By: #### L IPID, A1C WTH eA #### [facility] [address] [place] [address] [place] Erythrocyte distribution width (RBC) [Ratio] 13.8 % Normal 11.9-15.3 [facility] Comment on above: Performed By: #### L IPID, A1C WTH eA #### [facility] [address] [place] [address] [place] Hematocrit (Bld) [Volume fraction] 41.0 % Normal 34.0-46.4 [facility] Comment on above: Performed By: #### L IPID, A1C WTH eA #### [facility] [address] [place] [address] [place] Hemoglobin (Bld) [Mass/Vol] 13.6 g/dL Normal 11.8-15.4 [facility] Comment on above: Performed By: #### L IPID, A1C WT eA #### [address] Lymphocytes (Bld) [#/Vol] 2.3 10*3/uL Normal 1.00-4.8 [facility] Comment on above: Performed By: #### L IPID, A1C WT eA #### [address] Lymphocytes/100 WBC (Bld) 17.2 % Normal . [facility] Comment on above: Performed By: #### L IPID, [address] eA #### [address] MCH (RBC) [Entitic mass] 34.4 pg High 24.7-34.3 [facility] Comment on above: Performed By: #### L IPID, [address] eA #### [address] MCV (RBC) [Entitic vol] 103.6 fL High 80-100 [facility] Comment on above: Performed By: #### L IPID, [address] eA #### [address] Mean Corpuscular HGB Conc 33.2 g/dL Normal 32.0-35.0 [facility] Comment on above: Performed By: #### L IPID, A1C [facility] eA #### [place] [address] [place] Monocytes (Bld) [#/Vol] 1.3 10*3/uL High 0.0-0.8 [facility] Comment on above: Performed By: #### L IPID, [facility] WT eA #### [address] Monocytes/100 WBC (Bld) 10.1 % Normal . [facility] Comment on above: Performed By: #### L IPID, A1C WT eA #### [address] [place] [address] [place] Neutrophils (Bld) [#/Vol] 9.5 10*3/uL High 1.8-7.7 [facility] Comment on above: Performed By: #### L IPID, [address] eA #### [facility] [address] [place] [address] [place] Neutrophils/100 WBC (Bld) 71.8 % Normal . [facility] Comment on above: Performed By: #### L IPID, [address] eA #### [facility] [address] [place] [address] [place] NRBC% 0.0 /100{WBC} Normal 0-0.5 [facility] Comment on above: Performed By: #### L IPID, [address] eA #### [facility] [address] Platelet mean volume (Bld) [Entitic vol] 8.1 fL Normal 6.3-10.7 [facility] Comment on above: Performed By: #### L IPID, [address] eA #### [facility] [address] [place] [address] [place] Platelets (Bld) [#/Vol] 199 10*3/uL Normal 150-450 [facility] Comment on above: Performed By: #### L IPID, [address] eA #### [facility] [address] [place] [address] [place] RBC (Bld) [#/Vol] 3.96 10*6/uL Normal 3.60-5.00 [facility] Comment on above: Performed By: #### L IPID, [address] eA #### [facility] [address] [place] [address] [place] WBC (Bld) [#/Vol] 13.2 10*3/uL High 3.8-11.6 [facility] Comment on above: Performed By: #### L IPID, [address] eA #### [facility] [address] [place] [address] [place] Covid-19 PCR (CVDTBH)on 05-15 SARS-CoV-2 (COVID-19) RNA CAROL+probe Ql (Unsp spec) Not detected Normal NOT DETECTED The Comment on above: Result Comment: When diagnostic testing is negative, the possibility of a false negative should be considered in the context of a patient's recent exposures and the presence of clinical signs and symptoms consistent with SARS-CoV-2. This test is not yet approved or cleared by the [place] FDA. When there are no FDA-approved or cleared tests available, and other criteria are met, FDA can make tests available under an emergency access mechanism called an Emergency Use Authorization (EUA). The EUA for this test is supported by the Hand Flesher of Health and Human Service's declaration that circumstances exist to justify the emergency use of in vitro diagnostics for the detection and/or diagnosis of the virus that causes COVID-19. This EUA will remain in effect for the duration of the COVID-19 declaration justifying emergency of IVDs, unless it is terminated or revoked by the FDA (after which the test may no longer be used). Performed By: #### T SH, BNP, CMP, LIPID, T7 #### Laboratory [address] [place] [address] Dr. Logan Payne ECG 12 lead ECGon 06-09-2022 ECG 12 lead ECG [facility] [place] [address] Electrocardiograph Report Signed Patient: Abdirahman Gomez MR#: [id number] : 1940 Acct:[id number] Age/Sex: 81 / F ADM Date: 06/09/22 Loc: Room: [address] [place] [address] Type: DIS IN Attending Dr: Frida De La Cruz MD Ordering Provider: Chema Milner MD Date of Service: 06/09/22 ECG/ECG 12 lead ECG: right jaw pain, back pain, right shoulder pain Copies to: Test Reason : Blood Pressure : / mmHG Vent. Rate : 079 BPM Atrial Rate : 072 BPM P-R Int : 000 ms QRS Dur : 082 ms QT Int : 382 ms P-R-T Axes : 000 -08 109 degrees QTc Int : 438 ms Accelerated Junctional rhythm Nonspecific ST abnormality Abnormal QRS-T angle, consider primary T wave abnormality Abnormal ECG No previous ECGs available Confirmed by YOAV PRADO MD ([id number]) on 06/09/2022 5:09:33 PM Referred By: AG Electronically Signed By:YOAV PRADO MD Transcribed By: MUS Signed By Yoav Prado MD 1 08/10/21 1709 Normal [facility] echo transthoracicon [facility] echo transthoracic [facility] [place] [address] [place] [address] Echocardiogram Signed Patient: Abdirahman Gomez MR#: [id number] : 1940 Acct:[id number] Age/Sex: 81 / F ADM Date: 06/09/22 Loc: Room: [address] [place] [address] Type: DIS IN Attending Dr: Frida De La Cruz MD Ordering Provider: Marta Juarez DO, RES Date of Service: 06/09/22 [facility] transthoracic: elevated trop, afib Copies to: Marta Juarez DO, RES Yoav Prado MD BSA: 1.7 m2 BP: 154/167 mmHg HR: 77 Reason For Study: elevated trop, afib History: Atrial fibrillation, Hypertension, MRSA, Pacemaker, CABG Interpretation Summary Ejection Fraction = 55-60%. The left ventricular size, thickness and function are normal The left ventricular wall motion is normal. The left atrium appears mildly dilated. The right atrium is mildly dilated. There is mild to moderate mitral regurgitation. There is moderate tricuspid regurgitation. The right ventricular systolic pressure is 40 mmHg. Right ventricular systolic pressure is consistent with mild pulmonary hypertension. The patient was in atrial fibrillation through out the study. There is no comparison study available. Procedure/Quality: A two-dimensional transthoracic echocardiogram with color flow and Doppler was performed. The study was technically good in quality. Left Ventricle: The left ventricular size, thickness and function are normal. Ejection Fraction = 55-60%. The left ventricular wall motion is normal. Left Atrium: The left atrium appears mildly dilated. Right Atrium: The right atrium is mildly dilated. Right Ventricle: The right ventricular size, thickness and function are normal. Aortic Valve: The aortic valve is normal in structure and function. No aortic regurgitation is present. Mitral Valve: The mitral valve is normal in structure and function. There is mild to moderate mitral regurgitation. Tricuspid Valve: The tricuspid valve is normal in structure and function. There is moderate tricuspid regurgitation. The right ventricular systolic pressure is 40 mmHg. Right ventricular systolic pressure is consistent with mild pulmonary hypertension. Pulmonic Valve: The pulmonic valve is normal in structure and function. Trace pulmonic valvular regurgitation. Arteries: The aortic root is normal size. Pericardium/Pleura: No pericardial effusion seen. There is no pleural effusion. IVC/Hepatic Viens: The inferior vena cava is normal in size, with a normal collapsibility index. Miscellaneous: The patient was in atrial fibrillation through out the study. Measurements with Normals IVSd: 1.1 cm (0.7-1.1 cm)LVIDd: 4.1 cm (3.7-5.4 cm) LVPWd: 0.88 cm (0.7-1.1 cm)LVIDs: 3.2 cm (2.3-3.6 cm) LA dimension: 3.3 cm (2.3-4.0 cm)Ao root diam: 2.8 cm(2.0-3.6 cm) asc Aorta Diam: 2.9 cm(2.1-3.4cm) Doppler with Normals RVSP(TR): 41.3 mmHg (18-35mmHg) LV V1 max: 67.9 cm/sec (0.7-1.7m/s)MV E max kinza: 102.0 cm/sec(0.8-1.3m/s) MV A max kinza: 56.6 cm/sec(0.0-0.0m/s) MV E/A: 1.8 (<1.5) MMode/2D Measurements Calculations RVDd: 3.2 cm FS: 22.2 % Ao root area: LVLd ap4: 6.7 cm TAPSE: 1.7 cm EDV(Teich): 6.1 cm2 EDV(MOD-sp4): 73.1 ml 62.6 ml ESV(Teich): LVLs ap4: 5.9 cm 40.1 ml ESV(MOD-sp4): EF(Teich): 45.2 % 28.5 ml EF(MOD-sp4): 54.5 % __ SV(MOD-sp4): 34.1 ml LAV(MOD-sp4): LA A2 area: 19.7 cm2 RA Volume: 47.3 ml 48.6 ml LAV(MOD-sp2): LA A4 area: 19.0 cm2 54.8 ml LA length (vol): 6.2 cm LA vol: 51.4 ml LA vol index: 30.4 ml/m2 __ RA Volume Index: 28.8 ml/m2 Doppler Measurements Calculations MV dec time: E/E' lat: 14.9 MV dec slope: Ao V2 max: 0.11 sec E/E' med: 22.0 130.3 cm/sec 977.5 cm/sec2 Ao max P.8 mmHg Ao mean P.9 mmHg Ao V2 mean: 75.2 cm/sec Ao V2 VTI: 23.2 cm __ LV V1 max PG: TV max PG: TR max kinza: 1.8 mmHg 38.0 mmHg 309.5 cm/sec LV V1 mean PG: TR max P.3 mmHg 0.81 mmHg RAP systole: 3.0 mmHg LV V1 mean: 51.1 cm/sec LV V1 VTI: 14.6 cm Transcribed By: SCV Performed At: 06/09/22 4323 Signed By: Yoav Prado MD 06/09/22 3404 [facility] Folate [Mass/volume] in Seru m or PlasmaOrdered By: Nathaniel Castillo on 06-09-2022 Folate [Mass/Vol] ng/mL >5.9 [facility] Comment on above: Folate reference ran ge: >5.9 ng/mlThe WHO technical consultation on folate and vitamin [id number] has determined that folate concentrations lessthan 4 ng/ml are considered deficient. LACTATE/LACTIC ACIDon 2021 Lactate [Moles/Vol] 1.1 mmol/L Normal 0.4-1.9 [facility] Comment on above: Performed By: #### T SH, BNP, CMP, LIPID, T7 #### Laboratory [address] [place] [address] [address] Logan Payne Lactate [Moles/Vol] 1.8 mmol/L Normal 0.4-1.9 The [facility] Comment on above: Performed By: #### T SH, BNP, CMP, LIPID, T7 #### Laboratory [address] [address] [address] Logan Payne Laboratory - Chemistry and C hemistry - challengeOrdered By: Nathaniel Castillo on 06-09-2022 Cobalamin (Vitamin B12) [Mass/Vol] 480 pg/mL 180-914 [facility] Laboratory - Chemistry and C hemistry - challengeOrdered By: Rossi Valdez on 06-09-2022 Magnesium [Mass/Vol] 1.8 mg/dL 1.6-2.6 [facility] Magnesiumon 06-09-2022 Magnesium [Mass/Vol] 1.8 mg/dL Normal 1.6-2.6 [facility] Comment on above: Result Comment: PERF ORMED BY: [place] [address] PATHOLOGIST [employer]ER PILAR VILLARREAL M.D. Performed By: #### L IPID, A1C WTH eA #### [facility] [address] OCC BLD IMMUNO SCREENon 05-15 OCCULT BLOOD Positive Abnormal NEGATIVE The Comment on above: Performed By: #### T SH, BNP, CMP, LIPID, T7 #### Laboratory [address] [place] [address] [address] Logan Payne PROF 14(COMP METB)on 022 Albumin [Mass/Vol] 3.3 g/dL Critically low 3.4-5.0 Th e Comment on above: Performed By: #### C MP, HSTROPN #### Laboratory [address] [address] [address] Logan Payne Albumin/Globulin [Mass ratio] 0.8 {ratio} Normal [facility] Comment on above: Performed By: #### C MP, HSTROPN #### Laboratory [address] [address] [address] Logan Payne ALP [Catalytic activity/Vol] 95 U/L Normal 46-116 [facility] Comment on above: Performed By: #### C MP, HSTROPN #### Laboratory [address] [place] [address] [address] Logan Payne ALT [Catalytic activity/Vol] 36 U/L Normal 14-59 [facility] Comment on above: Performed By: #### C MP, HSTROPN #### Laboratory [address] [address] [address] Logan Payne Anion gap [Moles/Vol] 14.7 mmol/L Normal [facility] Comment on above: Performed By: #### C MP, HSTROPN #### Laboratory [address] [address] [address] Logan Payne AST [Catalytic activity/Vol] 75 U/L Critically high 15-37 [facility] Comment on above: Performed By: #### C MP, HSTROPN #### Laboratory [address] [address] [address] Logan Payne Bilirubin [Mass/Vol] 0.4 mg/dL Normal 0.2-1.0 [facility] Comment on above: Performed By: #### C MP, HSTROPN #### Laboratory [address] [address] [address] Logan Payne Calcium [Mass/Vol] 8.7 mg/dL Normal 8.5-10.1 [facility] Comment on above: Performed By: #### C MP, HSTROPN #### Laboratory [address] [address] [address] Logan Payne Chloride [Moles/Vol] 103 mmol/L Normal 98-107 [facility] Comment on above: Performed By: #### C JOSE, HSTROPN #### Laboratory [address] [address] [address] Logan Payne CO2 [Moles/Vol] 21.3 mmol/L Normal 21.0-32.0 [facility] Comment on above: Performed By: #### C JOSE, HSTROPN #### Laboratory [address] [place] [address] Dr. Logan Payne Creatinine [Mass/Vol] 0.83 mg/dL Normal 0.55-1.02 [facility] Comment on above: Performed By: #### C JOSE, HSTROPN #### Laboratory [address] [place] [address] Dr. Logan Payne EGFR-AF ETHIOPIAN >60 Normal >=60 [facility] Comment on above: Performed By: #### C JOSE, HSTROPN #### Laboratory [address] [place] [address] Dr. Logan Payne EGFR-NON AF ETHIOPIAN >60 Normal >=60 [facility] Comment on above: Performed By: #### C JOSE, HSTROPN #### Laboratory [address] [place] [address] Dr. Logan Payne Globulin (S) [Mass/Vol] 4.1 g/dL Normal [facility] Comment on above: Performed By: #### C JOSE, HSTROPN #### Laboratory [address] [address] [address] Logan Payne Glucose [Mass/Vol] 141 mg/dL Critically high 74-106 [facility] Comment on above: Performed By: #### C JOSE, HSTROPN #### Laboratory [address] [place] [address] Dr. Logan Payne Potassium [Moles/Vol] 4.0 mmol/L Normal 3.5-5.1 [facility] Comment on above: Performed By: #### C JOSE, HSTROPN #### Laboratory [address] [place] [address] Dr. Logan Payne Protein [Mass/Vol] 7.4 g/dL Normal 6.4-8.2 The [facility] Comment on above: Performed By: #### C MP, HSTROPN #### Laboratory [address] [place] [address] Dr. Logan Payne Sodium [Moles/Vol] 135 mmol/L Critically low 136-145 [facility] Comment on above: Performed By: #### C MP, HSTROPN #### Laboratory [address] [place] [address] Dr. Logan Payne Urea nitrogen [Mass/Vol] 16.0 mg/dL Normal 7.0-18.0 [facility] Comment on above: Performed By: #### C JOSE, HSTROPN #### Laboratory [address] [place] [address] Dr. Logan Payne Urea nitrogen/Creatinine [Mass ratio] 19.3 mg/mg Normal [facility] Comment on above: Performed By: #### C JOSE, HSTROPN #### Laboratory [address] [place] [address] Dr. Logan Payne PROTIMEon 06-09-2022 INR Coag (PPP) [Relative time] 0.98 {INR} Normal [facility] Comment on above: Performed By: #### T SH, BNP, CMP, LIPID, T7 #### Laboratory [address] [place] [address] Dr. Logan Payne INR GUIDELINES SEE BELOW Normal [facility] Comment on above: Result Comment: FERCHO RED INR: 2.0 - 3.0 CONDITIONS NOT LISTED BELOW 2.5 - 3.5 FOR PROSTHETIC HEART VALVE REPLACEMENT 2.5 - 3.5 RECURRENT THROMBOSIS Performed By: #### T SH, BNP, CMP, LIPID, T7 #### Laboratory [address] [place] [address] Dr. Logan Payne PT Coag (PPP) [Time] 10.6 s Normal 9.0-11.6 [facility] Comment on above: Performed By: #### T SH, BNP, CMP, LIPID, T7 #### Laboratory [address] [place], [place] [address] Dr. Logan Payne PTTon 06-09-2022 aPTT Coag (Bld) [Time] 30.0 s Normal 22.3-36.2 Th e Comment on above: Performed By: #### T SH, BNP, CMP, LIPID, T7 #### Laboratory [address] [place], [place] [address] Dr. Logan Payne TROPONIN, HIGH SENSITIVITYon 06-09-2022 HSTROP 8564.4 pg/mL Critically high 4.0-51.3 The [facility] Comment on above: Result Comment: CUT- OFF POINTS HAVE BEEN ESTABLISHED BASED ON THE FOURTH UNIVERSAL DEFINITIONS OF MYOCARDIAL INFARCTION. THE UPPER REFERENCE LIMIT (URL) OF TROPONIN, DEFINED THE 99TH PERCENTILE OF cTnI DISTRIBUTION IN A REFERENCE POPULATION, HAS BEEN CONFIRMED THE DECISION THRESHOLD FOR [place] DIAGNOSIS. Performed By: #### T SH, BNP, CMP, LIPID, T7 #### Laboratory [id number] Logan Payne HSTROP 9385.6 pg/mL Critically high 4.0-51.3 [facility] Comment on above: Result Comment: CUT- OFF POINTS HAVE BEEN ESTABLISHED BASED ON THE FOURTH UNIVERSAL DEFINITIONS OF MYOCARDIAL INFARCTION. THE UPPER REFERENCE LIMIT (URL) OF TROPONIN, DEFINED THE 99TH PERCENTILE OF cTnI DISTRIBUTION IN A REFERENCE POPULATION, HAS BEEN CONFIRMED THE DECISION THRESHOLD FOR [place] DIAGNOSIS. Performed By: #### C MP, HSTROPN #### Laboratory [address] [place], [place] [address] Dr. Logan Payne TYPE AND SCREENon 06-09-2022 TYPE AND SCREEN Negative Normal [facility] Comment on above: Performed By: #### T SH, BNP, CMP, LIPID, T7 #### Laboratory [address] [place], [place] [address] Dr. Logan Payne Troponin I High Sensitivityo n 06-09-2022 Troponin I High Sensitivity 6364 pg/mL Off scale high 0-15 [facility] Comment on above: Result Comment: Resu lts called at 1303 on 06/09/22 PERFORMED BY: [facility] [address] [place] [address] PATHOLOGIST [employer]ER PILAR VILLARREAL M.D. Performed By: #### L IPID, [address] eA #### [facility] [address] [place] [id number] [place] Troponin I High Sensitivity 6431 pg/mL Off scale high 0-15 [facility] Comment on above: Result Comment: Resu lts called at 1006 on 06/09/22 PERFORMED BY: [place] [address] PATHOLOGIST [employer]OLLER PILAR VILLARREAL M.D. Performed By: #### L IPID, [address] eA #### [facility] [address] [place] [id number] [place] Troponin I High Sensitivity 6373 pg/mL Off scale high 0-15 [facility] Comment on above: Result Comment: Resu lts called at 0710 on 06/09/22 PERFORMED BY: [place] [address] PATHOLOGIST [employer]ER PILAR VILLARREAL M.D. Performed By: #### G LULS #### Point of Care testing , Vit. B12/Folate Profileon Cobalamin (Vitamin B12) [Mass/Vol] 480 pg/mL Normal 180-914 [facility] Comment on above: Order Comment: Comme nt addon Performed By: #### G LULS #### Point of Care testing , Folate > 22.3 Normal >5.9 [facility] Comment on above: Order Comment: Comme nt addon Result Comment: Niyah te reference range: >5.9 ng/ml The WHO technical consultation on folate and vitamin b12 deficiencies has determined that folate concentrations less than 4 ng/ml are considered deficient. PERFORMED BY: [facility] [address] [facility] [id number] PATHOLOGIST [employer]ER PILAR VILLARREAL M.D. Performed By: #### G LULS #### Point of Care testing , BASIC METABOLIC PANELon 11-12 Calcium [Mass/Vol] 9.1 mg/dL Normal 8.6-10.3 [facility] Comment on above: Order Comment: No: D o not add to previous draw Performed By: #### 0 0071, [id number] #### [facility] [address] [place] [address], [place] Chloride [Moles/Vol] 104 mmol/L Normal 98-107 [facility] Comment on above: Order Comment: No: D o not add to previous draw Performed By: #### 0 0071, 10796 #### [facility] [address] [place] [address], [place] CO2 [Moles/Vol] 22 mmol/L Normal 21-31 [facility] Comment on above: Order Comment: No: D o not add to previous draw Performed By: #### 0 0071, 59353 #### [facility] [address] [place] [address], [place] Creatinine [Mass/Vol] 0.80 mg/dL Normal 0.60-1.20 [facility] Comment on above: Order Comment: No: D o not add to previous draw Performed By: #### 0 0071, 80944 #### [facility] [address] [place] [address], [place] GFR/1.73 sq M.predicted among blacks MDRD (S/P/Bld) [Vol rate/Area] mL/min/{1.73_m2} Normal >60 [facility] Comment on above: Order Comment: No: D o not add to previous draw Result Comment: Calc ulation may not be valid for patients over 70 years Performed By: #### 0 0071, 23814 #### [facility] [address] [place] [address], [place] GFR/1.73 sq M.predicted among non-blacks MDRD (S/P/Bld) [Vol rate/Area] mL/min/{1.73_m2} Normal >60 [facility] Comment on above: Order Comment: No: D o not add to previous draw Result Comment: Calc ulation may not be valid for patients over 70 years Performed By: #### 0 0071, 00879 #### [facility] [address] [place] [address], [place] Glucose [Mass/Vol] 99 mg/dL Normal 70-100 [facility] Comment on above: Order Comment: No: D o not add to previous draw Performed By: #### 0 0071, 10661 #### [facility] [address] [place] [address], [place] Potassium [Moles/Vol] 4.2 mmol/L Normal 3.5-5.1 [facility] Comment on above: Order Comment: No: D o not add to previous draw Performed By: #### 0 0071, 59351 #### [facility] [address] [place] [address], [place] Sodium [Moles/Vol] 137 mmol/L Normal 136-145 [facility] Comment on above: Order Comment: No: D o not add to previous draw Performed By: #### 0 0071, [id number] #### [facility] [address] [place] [address], [place] Urea nitrogen [Mass/Vol] 11 mg/dL Normal 7-25 [facility] Comment on above: Order Comment: No: D o not add to previous draw Performed By: #### 0 0071, 95857 #### [facility] [address] [place] [address], [place] CBC COMPLETE BLOOD COUNTon 0 - Erythrocyte distribution width (RBC) [Ratio] 12.9 % Normal 11.5-15.0 [facility] Comment on above: Order Comment: No: D o not add to previous draw Performed By: #### 3 2043 #### [facility] [address] [place] [address], [place] Hematocrit (Bld) [Volume fraction] 42.7 % Normal 36.0-45.0 [facility] Comment on above: Order Comment: No: D o not add to previous draw Performed By: #### 3 2043 #### [facility] [address] [place] [address], [place] Hemoglobin (Bld) [Mass/Vol] 14.3 g/dL Normal 12.0-15.0 [facility] Comment on above: Order Comment: No: D o not add to previous draw Performed By: #### 3 2043 #### [facility] [address] [place] [address], [place] MCH (RBC) [Entitic mass] 33.9 pg High 27.0-33.0 [facility] Comment on above: Order Comment: No: D o not add to previous draw Performed By: #### 3 2043 #### [facility] [address] [place] [address], [place] MCHC (RBC) [Mass/Vol] 33.5 g/dL Normal 32.0-35.0 [facility] Comment on above: Order Comment: No: D o not add to previous draw Performed By: #### 3 2043 #### [facility] [address] [facility] [place] [place] [address], [place] MCV (RBC) [Entitic vol] 101.2 fL High 82.0-98.0 [facility] Comment on above: Order Comment: No: D o not add to previous draw Performed By: #### 3 2043 #### [facility] [address] [facility] [place] [address], [place] Nucleated RBC/100 WBC (Bld) [Ratio] 0 % Normal 0-0 [facility] Comment on above: Order Comment: No: D o not add to previous draw Performed By: #### 3 2043 #### [facility] [address] [place] [address], [place] PLAT CNT 211 10*3/uL Normal 150-400 [facility] Comment on above: Order Comment: No: D o not add to previous draw Performed By: #### 3 2043 #### [facility] [address] [facility] [place] [address], [place] RBC (Bld) [#/Vol] 4.22 10*6/uL Normal 3.80-5.00 [facility] Comment on above: Order Comment: No: D o not add to previous draw Performed By: #### 3 2043 #### [facility] [address] [facility] [place] [address], [place] WBC (Bld) [#/Vol] 11.25 10*3/uL High 4.00-10.60 [facility] Comment on above: Order Comment: No: D o not add to previous draw Performed By: #### 3 2043 #### [facility] [address] [place] [address], [place] HEMOGLOBIN A1Con 11-25-2021 Glucose [Moles/Vol] 128 mmol/L Normal [facility] Comment on above: Order Comment: If no t done in EDNo: Do not add to previous draw Performed By: #### 3 2043 #### [facility] [address] [place] [address], [place] HbA1c (Bld) [Mass fraction] 6.1 % High 4.0-6.0 [facility] Comment on above: Order Comment: If no t done in EDNo: Do not add to previous draw Performed By: #### 3 2043 #### [facility] [address] [place] [address], [place] MAGNESIUM BLOODon 11-25-2021 Magnesium [Mass/Vol] 1.8 mg/dL Low 1.9-2.7 [facility] Comment on above: Order Comment: No: D o not add to previous draw Performed By: #### 0 0071, [id number] #### [facility] [address] [place] [address], [place] PORTABLE CHEST 1 VIEWon 11-12 PORTABLE CHEST 1 VIEW [facility] Department of Radiology [address] [place] [id number] Patient Name: ABDIRAHMAN GOMEZ : 1940 Sex: F Age: Race: White Pt. Location: [id number] Patient Status: I Ordered Date: 11/25/2021 10:05:00 AM Completed Date: 11/25/2021 10:36 AM Requesting Provider: ELIJAH MCFADDEN Attending Provider: BRIDGER MONTANA Report Copy To: Signs & Symptoms: Post OP History: Comments: Pneumothorax Exam: PORTABLE CHEST 1 VIEW PORTABLE CHEST 1 VIEW 11/25/2021 10:38 AM CLINICAL INDICATIONS: Post OP TECHNOLOGIST COMMENTS: Post op. Patient states having pacemaker placement, checking lead positions. QUESTION FOR THE RADIOLOGIST: Pneumothorax PROTOCOL: AP(PA) view was obtained. COMPARISON: 10/16/2021 FINDINGS: The patient is status post pacemaker placement. The leads have expected position on this single view. There is no pneumothorax evident. The patient is still status post sternotomy. The lungs are clear with no pleural effusion. IMPRESSION: No pneumothorax status post pacemaker placement Cardiac enlargement with no acute infiltrate or pulmonary edema. Electronically signed: Melania Lay. Transcribed by: [email or web address], User Resident: Electronically Signed by: MELANIA LAY @ 11/25/2021 10:44 AM Normal [facility] Comment on above: Order Comment: Pneum othorax Cardiovascular Lab Reporton 11-24-2021 Cardiovascular Lab Report [facility] Patient Name: Abdirahman Gomez [facility] MR #: [id number] Physician: Sraabjit Vicente MD Department of Service Date: 11/24/2021 Medicine Birthdate: 1940 Division of Room #: 3AB [id number] Cardiology Adult Cardiovascular Services [facility] [address] [place] [id number] Cardiovascular Laboratory Report PACEMAKER IMPLANT PROCEDURE NOTE DATE OF PROCEDURE: 11/24/2021 PERFORMING PHYSICIAN: Dr. Sarabjit Vicente CONSENT: Patient LOCATION: EP Lab PROCEDURE PERFORMED: 1. Implantation of pacemaker ([employer]). 2. Ultrasound guided venous access INDICATIONS: 1. Complete heart block with junctional escape. 2. Syncope due to bradycardia PROCEDURAL SEDATION: Versed and Fentanyl. Moderate sedation was administered by the sedation nurse under my supervision and noted in the CVL log. Intraprocedural face to face sedation time: 48min. Monitoring: Cardiac telemetry, Blood pressure, continuous pulse oxymetry. FLUOROSCOPY TIME: 3minutes 40 seconds/8 mGy. PREPARATION: 81-year-old lady with a past medical history of hypertension, who was transferred from [facility] where she was noted to be in complete heart block with the escape at 20 beats per minute. She had syncope from this and subsequently was transferred here. Since the admission to [facility], she had a fairly recently good sinus node with conduction. Given the history of syncope and complete heart block, a dual-chamber pacemaker was recommended. Patient was brought to the EP lab in the post absorptive state. A procedural pause was performed identifying the patient, the procedure to be performed and the site of implant. The left chest was prepped and draped in the usual sterile fashion. Preoperative antibiotics IV was administered. PROCEDURAL DETAILS: Patient was placed in trendelenberg position and ultrasound was used to evaluate the patency of left axillary vein and for venous access. Left axillary venous access was obtained using modified seldinger technique using a 5 Rwandan micro-puncture needle on two occasions and 0.35 wires were placed. Local infiltration of 1% Lidocaine was performed, and an incision was created in the left upper chest along deltopectoral groove.. Dissection was then performed using cautery down to the fascial plane above the muscle. Lidocaine was injected subcutaneously, and gentle dissection was performed down to the fascial plane above the pectoralis muscle. A pocket was created for the device. 6 R[place]an Safesheaths were placed over the wire. An active fixation [employer] pacing lead was then delivered through the 6Fsheath to the right ventricle. After confirmation of lead position on orthogonal views ([place] and [place]AYLEE) to confirm septal position, the screw was activated, and the lead was placed in the right ventricular mid cavity towards the septum. After confirmation of good sensing parameters, injury pattern and pacing thresholds, 10V pacing was done and no diaphragmatic stimulation was noted. It was then secured in the pocket using three 1-0 Silk sutures. Then an active fixation [employer] lead was delivered through the 6Fsheath to the right atrial appendage. After confirmation of lead position on orthogonal views ([place] and SHAYLEE), the screw was activated. After confirmation of good sensing parameters, injury pattern and pacing thresholds, the lead was then tested using Lambert's maneuver. 10V pacing was done and no diaphragmatic stimulation was noted. It was then secured in the pocket using three 1-0 Silk sutures. Pocket hemostasis was secured, and it was then copiously and vigorously irrigated with antibiotic solution. The leads were attached to the generator and then wrapped under the device and the device was tacked to underlying muscle and placed in the pocket. The pocket was closed in layers: muscle and subcutaneous layer using 2-0 Vicryl; skin using 3-0 absorbable monofilament suture. Glue was applied and Tegaderm dressing was placed on top. Lead parameters were then rechecked through the device as noted below. The patient was returned to the short stay room for post procedural observation. No immediate procedural complications were noted. Device info: [employer] Accolade MRI Model# L311 Serial# [id number] RA lead: Model# INGEVITY 7840 (45cms) Serial# [id number] SensinmV Threshold: 0.8V@0.4ms Impedance: 590 Ohms RV lead: Model# INGEVITY 7841 (52cms) Serial# [id number] Sensin.5mV Threshold: 0.4V@0.4ms Impedance: 1125 Ohms POST PROCEDURE EXAM: Patient was hemodynamically stable. COMPLICATIONS: None. ESTIMATED BLOOD LOSS: 15cc IMPRESSION: 1. Successful dual chamber pacemaker with excellent pacing and sensing parameters. RECOMMENDATIONS: 1 Occlusive dressing to be removed after 2 weeks. 2. Do not wet the incision for 7 days. 3. No lifti (more content not included)... Normal [facility] APTTon 11-23-2021 aPTT Coag (Bld) [Time] 30.9 s Normal 25.0-35.0 [facility] Comment on above: Order Comment: No: D o not add to previous draw Result Comment: ALL RESULTS MUST BE INTERPRETED WITH RESPECT TO BLOOD DRAWING ARTIFACT OR DILUTION ERROR OF ANTICOAGULANT AT THE TIME OF SAMPLING. THE APTT SHOULD NOT BE USED TO MONITOR UNFRACTIONATED HEPARIN THERAPY, THIS LABORATORY NO LONGER HAS AN ESTABLISHED THERAPEUTIC RANGE BASED ON THE APTT. IT IS RECOMMENDED THAT THE UFH - HEPARIN ASSAY (ANTI-XA ACTIVITY) BE USED FOR THIS PURPOSE. Performed By: #### 3 2044 #### [facility] [address] [place] [address], [place] BASIC METABOLIC PANELon 11-12 Calcium [Mass/Vol] 9.5 mg/dL Normal 8.6-10.3 [facility] Comment on above: Order Comment: No: D o not add to previous draw Performed By: #### 1 0070, [id number] #### [facility] [address] [place] [address], [place] Chloride [Moles/Vol] 104 mmol/L Normal 98-107 [facility] Comment on above: Order Comment: No: D o not add to previous draw Performed By: #### 1 0, [id number] #### [facility] [address] [place] [address], [place] CO2 [Moles/Vol] 21 mmol/L Normal 21-31 [facility] Comment on above: Order Comment: No: D o not add to previous draw Performed By: #### 1 69, 89592 #### [facility] [address] [place] [id number], [place] Creatinine [Mass/Vol] 0.80 mg/dL Normal 0.60-1.20 [facility] Comment on above: Order Comment: No: D o not add to previous draw Performed By: #### 1 0070, 40639 #### [facility] [address] [place] [address], [place] GFR/1.73 sq M.predicted among blacks MDRD (S/P/Bld) [Vol rate/Area] mL/min/{1.73_m2} Normal >60 [facility] Comment on above: Order Comment: No: D o not add to previous draw Result Comment: Calc ulation may not be valid for patients over 70 years Performed By: #### 1 69, 91670 #### [facility] [address] [place] [address], [place] GFR/1.73 sq M.predicted among non-blacks MDRD (S/P/Bld) [Vol rate/Area] mL/min/{1.73_m2} Normal >60 [facility] Comment on above: Order Comment: No: D o not add to previous draw Result Comment: Calc ulation may not be valid for patients over 70 years Performed By: #### 1 69, 05200 #### [facility] [address] [place] [address], [place] Glucose [Mass/Vol] 109 mg/dL High 70-100 [facility] Comment on above: Order Comment: No: D o not add to previous draw Performed By: #### 1 69, 72689 #### [facility] [address] [place] [address], [place] Potassium [Moles/Vol] 3.9 mmol/L Normal 3.5-5.1 [facility] Comment on above: Order Comment: No: D o not add to previous draw Performed By: #### 1 69, 58601 #### [facility] [address] [place] [address], [place] Sodium [Moles/Vol] 138 mmol/L Normal 136-145 [facility] Comment on above: Order Comment: No: D o not add to previous draw Performed By: #### 1 69, 35027 #### [facility] [address] [place] [address], [place] Urea nitrogen [Mass/Vol] 15 mg/dL Normal 7-25 [facility] Comment on above: Order Comment: No: D o not add to previous draw Performed By: #### 1 0070, 37998 #### [facility] [address] [place] [address], [place] CBC COMPLETE BLOOD COUNTon 11-23-2021 Erythrocyte distribution width (RBC) [Ratio] 12.8 % Normal 11.5-15.0 [facility] Comment on above: Order Comment: No: D o not add to previous draw Performed By: #### 3 2043 #### [facility] [address] [place] [address], [place] Hematocrit (Bld) [Volume fraction] 41.9 % Normal 36.0-45.0 [facility] Comment on above: Order Comment: No: D o not add to previous draw Performed By: #### 3 2043 #### [facility] [address] [place] [address], [place] Hemoglobin (Bld) [Mass/Vol] 14.1 g/dL Normal 12.0-15.0 [facility] Comment on above: Order Comment: No: D o not add to previous draw Performed By: #### 3 2043 #### [facility] [address] [place] [address], [place] MCH (RBC) [Entitic mass] 34.0 pg High 27.0-33.0 [facility] Comment on above: Order Comment: No: D o not add to previous draw Performed By: #### 3 2043 #### [facility] [address] [place] [address], [place] MCHC (RBC) [Mass/Vol] 33.7 g/dL Normal 32.0-35.0 [facility] Comment on above: Order Comment: No: D o not add to previous draw Performed By: #### 3 2043 #### [facility] [address] [place] [address], [place] MCV (RBC) [Entitic vol] 101.0 fL High 82.0-98.0 [facility] Comment on above: Order Comment: No: D o not add to previous draw Performed By: #### 3 2043 #### [facility] [address] [facility] [place] [address], [place] Nucleated RBC/100 WBC (Bld) [Ratio] 0 % Normal 0-0 [facility] Comment on above: Order Comment: No: D o not add to previous draw Performed By: #### 3 2043 #### [facility] [address] [place] [address], [place] PLAT CNT 218 10*3/uL Normal 150-400 [facility] Comment on above: Order Comment: No: D o not add to previous draw Performed By: #### 3 2043 #### [facility] [address] [facility] [place] [address], [place] RBC (Bld) [#/Vol] 4.15 10*6/uL Normal 3.80-5.00 [facility] Comment on above: Order Comment: No: D o not add to previous draw Performed By: #### 3 2043 #### [facility] [address] [facility] [place] [id number], [place] WBC (Bld) [#/Vol] 9.49 10*3/uL Normal 4.00-10.60 [facility] Comment on above: Order Comment: No: D o not add to previous draw Performed By: #### 3 2043 #### [facility] [address] [place] [id number], [place] MAGNESIUM BLOODon 11-23-2021 Magnesium [Mass/Vol] 2.0 mg/dL Normal 1.9-2.7 [facility] Comment on above: Order Comment: No: D o not add to previous draw Performed By: #### 1 0070, 25419 #### [facility] [address] [facility]. [address] POC SARS COV2 ANTIGEN NEGATI VEon 11-23-2021 POC SARS COV2 ANTIGEN NEG Negative Normal NEGATIVE [facility] Comment on above: Result Comment: Nega tive results should be treated as presumptive and confirmation with a molecular assay, if necessary, for patient management, may be performed. Negative results do not rule out SARS-CoV-2 infection and not should be used as the sole basis for treatment or patient management decisions, including infection control decisions. Negative results should be considered in the context of a patient's recent exposures, history, and the presence of clinical signs and symptoms consistent with COVID-19. The Clarity COVID-19 Antigen Rapid Test Cassette is a rapid chromatographic immunoassay intended for the qualitative detection of the nucleocapsid protein antigen from SARS-CoV-2 in direct nasopharyngeal swab (JUNIOR DESIGNER) specimens from individuals who are suspected of COVID-19 by their healthcare provider within the first six days of symptom onset. Testing is limited to laboratories certified under the Clinical Laboratory Improvement Amendments of 1988 (CLIA), 42 U.S.C. ???263a, that meet the requirements to perform moderate complexity, high complexity, or waived tests. This test is authorized for use at the Point of Care (POC), i.e., in patient care settings operating under a CLIA Certificate of Waiver, Certificate of Compliance, or Certificate of Accreditation. Performed By: #### 3 2044 #### [facility] [address] [facility]. [address] PROTHROMBIN TIMEon INR Coag (PPP) [Relative time] 1.03 {INR} Normal 0.91-1.16 [facility] Comment on above: Order Comment: No: D o not add to previous draw Result Comment: ACCC P RECOMMENDED INR FOR WARFARIN THERAPY ------- CONDITION INR PROPHYLAXIS OF VENOUS THROMBOSIS 2-3 (HIGH-RISK SURGERY) TREATMENT OF VENOUS THROMBOSIS 2-3 TREATMENT OF PULMONARY EMBOLISM 2-3 PREVENTION OF SYSTEMIC EMBOLISM: 2-3 ACUTE MYOCARDIAL INFARCTION TISSUE HEART VALVES VALVULAR HEART DISEASE ATRIAL FIBRILLATION RECURRENT SYSTEMIC EMBOLISM MECHANICAL HEART VALVE 2.5-3.5 FROM: ORAL ANTICOAGULANTS. MECHANISM OF ACTION, CLINICAL EFFECTIVENESS, AND OPTIMAL THERAPEUTIC RANGE. CHEST 1995;108:231S-246S. Performed By: #### 3 4 #### [facility] [address] [facility] [place] [place] [address], [place] PT Coag (PPP) [Time] 13.5 s Normal 12.3-14.8 [facility] Comment on above: Order Comment: No: D o not add to previous draw Result Comment: ALL RESULTS MUST BE INTERPRETED WITH RESPECT TO BLOOD DRAWING ARTIFACT OR DILUTION ERROR OF ANTICOAGULANT AT THE TIME OF SAMPLING. Performed By: #### 3 4 #### [facility] [address] [facility] BASIC METABOLIC PANELon 06- Calcium [Mass/Vol] 9.5 mg/dL Normal 8.6-10.3 [facility] Comment on above: Order Comment: No: D o not add to previous draw Performed By: #### 1 0070, 59357, 45125 #### [facility] [address] [facility] [place] [place] [address], [place] Chloride [Moles/Vol] 104 mmol/L Normal 98-107 [facility] Comment on above: Order Comment: No: D o not add to previous draw Performed By: #### 1 0070, 94574, 76182 #### [facility] [address] [place] [address], [place] CO2 [Moles/Vol] 21 mmol/L Normal 21-31 [facility] Comment on above: Order Comment: No: D o not add to previous draw Performed By: #### 1 0070, 07413, 08293 #### [facility] [address] [place] [address], [place] Creatinine [Mass/Vol] 0.98 mg/dL Normal 0.60-1.20 [facility] Comment on above: Order Comment: No: D o not add to previous draw Performed By: #### 1 0070, 73657, 10893 #### [facility] [address] [place] [address], [place] eGFR- non- 54 ml/min/1.73sq m Abnormal >60 [facility] Comment on above: Order Comment: No: D o not add to previous draw Result Comment: Calc ulation may not be valid for patients over 70 years Performed By: #### 1 0070, , 50561 #### [facility] [address] [place] [address], [place] GFR/1.73 sq M.predicted among blacks MDRD (S/P/Bld) [Vol rate/Area] mL/min/{1.73_m2} Normal >60 [facility] Comment on above: Order Comment: No: D o not add to previous draw Result Comment: Calc ulation may not be valid for patients over 70 years Performed By: #### 1 0, 69197, 26623 #### [facility] [address] [place] [address], [place] Glucose [Mass/Vol] 110 mg/dL High 70-100 [facility] Comment on above: Order Comment: No: D o not add to previous draw Performed By: #### 1 0070, 54511, 54841 #### [facility] [address] [place] [address], [place] Potassium [Moles/Vol] 4.9 mmol/L Normal 3.5-5.1 [facility] Comment on above: Order Comment: No: D o not add to previous draw Performed By: #### 1 0070, 06555, 51270 #### [facility] [address] [facility] [place] [address], [place] Sodium [Moles/Vol] 137 mmol/L Normal 136-145 [facility] Comment on above: Order Comment: No: D o not add to previous draw Performed By: #### 1 0070, 87499, 46315 #### [facility] [address] [facility] [place] [address], [place] Urea nitrogen [Mass/Vol] 18 mg/dL Normal 7-25 [facility] Comment on above: Order Comment: No: D o not add to previous draw Performed By: #### 1 0, 07160, 12248 #### [facility] [address] [place] [address], [place] CBC W/DIFFon 11-22-2021 ABS IMM GRANS 0.1 10*3/uL Normal 0.0-0.2 [facility] Comment on above: Performed By: #### 3 2043 #### [facility] [address] [facility] [place] [address], [place] ABS NEUTROPHILS 6.8 10*3/uL Normal 1.6-7.6 [facility] Comment on above: Performed By: #### 3 2043 #### [facility] [address] [facility] [place] [address], [place] Basophils (Bld) [#/Vol] 0.1 10*3/uL Normal 0.0-0.2 [facility] Comment on above: Performed By: #### 3 2043 #### [facility] [address] [facility] [place] [address], [place] Basophils/100 WBC (Bld) 0.8 % Normal 0.0-1.0 [facility] Comment on above: Performed By: #### 3 2043 #### [facility] [address] [facility] [place] [place] [address], [place] Eosinophils (Bld) [#/Vol] 0.4 10*3/uL Normal 0.0-0.5 [facility] Comment on above: Performed By: #### 3 2043 #### [facility] [address] [place] [address], [place] Eosinophils/100 WBC (Bld) 3.6 % Normal 0.0-6.0 [facility] Comment on above: Performed By: #### 3 2043 #### [facility] [address] [place] [address], [place] Erythrocyte distribution width (RBC) [Ratio] 12.6 % Normal 11.5-15.0 [facility] Comment on above: Performed By: #### 3 2043 #### [facility] [address] [place] [address], [place] Hematocrit (Bld) [Volume fraction] 42.3 % Normal 36.0-45.0 [facility] Comment on above: Performed By: #### 3 2043 #### [facility] [address] [facility] [place] [address], [place] Hemoglobin (Bld) [Mass/Vol] 14.9 g/dL Normal 12.0-15.0 [facility] Comment on above: Performed By: #### 3 2043 #### [facility] [address] [facility] [place] [id number], [place] IMMATURE GRANS 0.5 % Normal 0.0-1.0 [facility] Comment on above: Performed By: #### 3 2043 #### [facility] [address] [place] [id number], [place] Lymphocytes (Bld) [#/Vol] 2.3 10*3/uL Normal 1.2-4.0 [facility] Comment on above: Performed By: #### 3 2043 #### [facility] [address] [place] [address], [place] Lymphocytes/100 WBC (Bld) 21.8 % Normal 20.0-45.0 [facility] Comment on above: Performed By: #### 3 2043 #### [facility] [address] [facility] [place] [address], [place] MCH (RBC) [Entitic mass] 34.3 pg High 27.0-33.0 [facility] Comment on above: Performed By: #### 3 2043 #### [facility] [address] [facility] [place] [address], [place] MCHC (RBC) [Mass/Vol] 35.2 g/dL High 32.0-35.0 [facility] Comment on above: Performed By: #### 3 2043 #### [facility] [address] [facility] [place] [address], [place] MCV (RBC) [Entitic vol] 97.2 fL Normal 82.0-98.0 [facility] Comment on above: Performed By: #### 3 2043 #### [facility] [address] [facility] [place] [place] [address], [place] Monocytes (Bld) [#/Vol] 0.8 10*3/uL Normal 0.1-1.0 [facility] Comment on above: Performed By: #### 3 2043 #### [facility] [address] [facility] [place] [place] [address], [place] MONOS 7.8 % Normal 5.0-12.0 [facility] Comment on above: Performed By: #### 3 2043 #### [facility] [address] [facility] Neutrophils/100 WBC (Bld) 65.5 % Normal 40.0-72.0 [facility] Comment on above: Performed By: #### 2043 #### [facility] [address] [place] [address], [place] Nucleated RBC/100 WBC (Bld) [Ratio] 0 % Normal 0-0 [facility] Comment on above: Performed By: #### 3 2043 #### [facility] [address] [place] [address], [place] PLAT CNT 231 10*3/uL Normal 150-400 [facility] Comment on above: Performed By: #### 3 2043 #### [facility] [address] [place] [address], [place] RBC (Bld) [#/Vol] 4.35 10*6/uL Normal 3.80-5.00 [facility] Comment on above: Performed By: #### 3 2043 #### [facility] [address] [facility] [place] [address], [place] WBC (Bld) [#/Vol] 10.35 10*3/uL Normal 4.00-10.60 [facility] Comment on above: Performed By: #### 3 2043 #### [facility] [address] [place] [address], [place] MAGNESIUM BLOODon 11-22-2021 Magnesium [Mass/Vol] 2.1 mg/dL Normal 1.9-2.7 [facility] Comment on above: Order Comment: No: D o not add to previous draw Performed By: #### 1 0070, 39044, 10171 #### [facility] [address] [facility] [place] [place] [address], [place] TROPONIN-Ion 11-22-2021 Troponin I.cardiac [Mass/Vol] 0.00 ng/mL Normal 0.00-0.04 [facility] Comment on above: Order Comment: No: D o not add to previous draw Result Comment: REFE RENCE RANGES: 0.00 - 0.04 ng/ml NORMAL 0.05 - 0.50 ng/ml INDETERMINATE > 0.50 ng/ml CONSISTENT WITH AN M.I. Performed By: #### 1 0070, 09927, 03848 #### [facility] [address] [place] [address], [place] Troponin I.cardiac [Mass/Vol] 0.01 ng/mL Normal 0.00-0.04 [facility] Comment on above: Order Comment: No: D o not add to previous draw Result Comment: REFPietro FRAAG RANGES: 0.00 - 0.04 ng/ml NORMAL 0.05 - 0.50 ng/ml INDETERMINATE > 0.50 ng/ml CONSISTENT WITH AN M.I. Performed By: #### 3 5200 #### [facility] [address] ECHOCARDIO M/2D COMPLETEon 0 11-05-2021 ECHOCARDIO M/2D COMPLETE Patient: ABDIRAHMAN GOMEZ Exam Date: 11/05/2021 : 1940 Gender:F Ordering : VENUS TONG Admission #: [id number] Family : DR IRISH FAUSTIN . Order #: [id number] CLICK HERE TO VIEW EXAM ECHOCARDIOGRAM REPORT PROCEDURE: CARDIO PULMONARY ECHOCARDIO M/2D COMP INDICATIONS: Paroxysmal atrial fibrillation, H/O CABG COMPARISON: None. DESCRIPTION: COMPLETE ECHOCARDIOGRAM Real-time transthoracic echocardiography with 2D, M-mode, spectral and color flow Doppler performed. QUALITY: Technical quality was limited. 62 151# 154/70 HR 63 LEFT VENTRICLE: Normal chamber size. Normal left ventricular wall thickness. Global left ventricular systolic function is hyperdynamic. The interventricular septum is abnormal in it's motion suggestive of right ventricular volume / pressure overload. LV EF: Estimated ejection fraction is 70-75% DIASTOLIC: ATRIAL SEPTUM: The interatrial septum bows into left atrium. LEFT ATRIUM: Moderate dilatation. RIGHT ATRIUM: Moderate dilatation. RIGHT VENTRICLE: Moderate dilatation. Normal right ventricular systolic function. TRICUSPID VALVE: Normal mobility and thickness. No stenosis with moderate regurgitation. Doppler studies suggest mildly elevated right-sided pressures. RVSP 39 mmHg MITRAL VALVE: Normal mobility and thickness. No evidence of mitral valve stenosis. Trivial mitral regurgitation. AORTIC VALVE: Normal trileaflet appearance. No evidence of aortic valve stenosis. No aortic regurgitation. AORTIC ROOT: Normal diameter and appearance. PULMONIC VALVE: Normal thickness and mobility. No stenosis. Mild regurgitation. PERICARDIUM: Trivial pericardial effusion. IVC: Collapses with inspirations. IVC poorly visualized. PLEURA: CONCLUSION: 1. Left ventricular systolic function is hyperdynamic. LVEF is 70 to 75%. 2. The right ventricle is moderately dilated with normal systolic function. 3. Moderate biatrial dilatation. 4. Moderate tricuspid regurgitation. 5. Mildly elevated right-sided pressures. 6. No pericardial effusion. Adult Echocardiography Procedure Report Left Ventricle Left Atrium Mitral Valve Right Ventricle Aorta Aortic Valve Peak Velocity (Antegrade Flow): 1.28 m/s AoV Area (Peak Kinza): 2.01 cm2, 2.01 cm2 Peak Velocity(Antegrade Flow): 1.28 m/s Peak Gradient(Antegrade Flow): 6.57 mm[Hg] Tricuspid Valve Peak Velocity (Regurgitant Flow): 2.54 m/s, 2.79 m/s Peak Velocity: 0.66 m/s Pulmonic Valve PV Max Kinza (0.6 - 0.9 m per sec): 0.83 m/s PV Max Gradient: 2.73 mm[Hg] Right Atrium Dictated by: Kirk Lopez M.D. on 11/06/2021 at 13:14 Approved by: Kirk Lopez M.D. on 11/06/2021 at 13:18 Normal [facility] MG MAMM SCREEN 3D MILANA CADon 10-27-2021 MG MAMM SCREEN 3D MILANA CAD Patient: ABDIRAHMAN GOMEZ Exam Date: 10/27/2021 : 1940 Gender:F Ordering : DR IRISH FAUSTIN . Admission #: [id number] Family : Order #: [id number] CLICK HERE TO VIEW EXAM RADIOLOGY REPORT PROCEDURE: MAMMOGRAM SCREENING 3D BILATERAL CAD COMPARISON: MG MAMM LT DIAG W CAD, 06/04/2017. MG MAMM MILANA DIAG W CAD, 02/17/2018. INDICATIONS: Screening mammography Calculator Name NCI Breast Cancer Risk Assessment Tool 5 Year Breast Cancer Risk 1.30% Lifetime Breast Cancer Risk 1.90% Personal Breast Cancer No Personal Ovarian Cancer No Treatments None Family Cancers None LOCATION: The BREAST COMPOSITION: Almost entirely fatty. FINDINGS: DIAGNOSTIC CATEGORY 2--BENIGN FINDING. NO CHANGE FROM COMPARISON. Scattered benign-appearing calcifications are present. Scattered benign-appearing lymph nodes are present. RIGHT BREAST: No significant suspicious finding. LEFT BREAST: No significant suspicious finding. RECOMMENDATIONS: ROUTINE MAMMOGRAM AND CLINICAL EVALUATION IN 12 MONTHS. PLEASE NOTE: A NORMAL MAMMOGRAM DOES NOT EXCLUDE THE POSSIBILITY OF BREAST CANCER. A CLINICALLY SUSPICIOUS PALPABLE LUMP SHOULD BE BIOPSIED. Dictated by: Brie Partida MD on 10/27/2021 at 11:42 Approved by: Brie Partida MD on 10/27/2021 at 11:44 Normal The INSULINon 06-28-2021 Insulin 12.1 uIU/mL Normal 2.6-24.9 [facility] Comment on above: Performed By: #### I NSULIN #### Laboratory [address] [place] [address] Dr. Logan Payne BNPon 06-27-2021 Natriuretic peptide B (Bld) [Mass/Vol] 350.0 pg/mL Normal <=1,800.0 [facility] Comment on above: Performed By: #### T SH, BNP, CMP, LIPID, T7 #### Laboratory [address] [place] [address] Dr. Logan Payne CBC AUTO DIFFon 06-27-2021 BASO # 0.1 103/ul Normal 0.0-0.1 [facility] Comment on above: Performed By: #### T SH, BNP, CMP, LIPID, T7 #### Laboratory [address] [place] [address] Dr. Logan Payne Basophils/100 WBC (Bld) 1.1 % Normal 0.2-2.0 [facility] Comment on above: Performed By: #### T SH, BNP, CMP, LIPID, T7 #### Laboratory [address] [place] [address] Dr. Logan Payne EO # 0.3 103/ul Normal 0.0-0.7 [facility] Comment on above: Performed By: #### T SH, BNP, CMP, LIPID, T7 #### Laboratory [address] [place] [address] Dr. Logan Payne Eosinophils/100 WBC (Bld) 2.8 % Normal 0.9-7.0 [facility] Comment on above: Performed By: #### T SH, BNP, CMP, LIPID, T7 #### Laboratory [address] [place] [address] Dr. Logan Payne Erythrocyte distribution width (RBC) [Ratio] 12.9 % Normal 11.0-15.0 [facility] Comment on above: Performed By: #### T SH, BNP, CMP, LIPID, T7 #### Laboratory [address] [address] [address] Logan Payne Hematocrit (Bld) [Volume fraction] 46.6 % Normal 36.0-48.0 [facility] Comment on above: Performed By: #### T SH, BNP, CMP, LIPID, T7 #### Laboratory [address] [place] [address] Dr. Logan Payne Hemoglobin (Bld) [Mass/Vol] 15.0 g/dL Normal 12.0-16.0 [facility] Comment on above: Performed By: #### T SH, BNP, CMP, LIPID, T7 #### Laboratory [address] [place] [address] Dr. Logan Payne IG # 0.05 10e3/ul Critically high 0.00-0.03 [facility] Comment on above: Performed By: #### T SH, BNP, CMP, LIPID, T7 #### Laboratory [address] [place] [address] Dr. Logan Payne IG % 0.5 % Normal 0.0-0.5 [facility] Comment on above: Performed By: #### T SH, BNP, CMP, LIPID, T7 #### Laboratory [address] [place] [address] Dr. Logan Payne LYMPH # 2.8 103/ul Normal 1.2-3.8 [facility] Comment on above: Performed By: #### T SH, BNP, CMP, LIPID, T7 #### Laboratory [address] [place] [address] Dr. Logan Pyane Lymphocytes/100 WBC (Bld) 27.4 % Normal 20.5-60.0 [facility] Comment on above: Performed By: #### T SH, BNP, CMP, LIPID, T7 #### Laboratory [address] [place] [address] Dr. Logan Payne MANUAL DIFF REQ NO Normal [facility] Comment on above: Performed By: #### T SH, BNP, CMP, LIPID, T7 #### Laboratory [address] [address] [address] Logan Payne MCH (RBC) [Entitic mass] 33.9 pg Normal 26.7-34.0 [facility] Comment on above: Performed By: #### T SH, BNP, CMP, LIPID, T7 #### Laboratory [address] [place] [address] Dr. Logan Payne MCHC (RBC) [Mass/Vol] 32.2 g/dL Normal 29.9-35.2 [facility] Comment on above: Performed By: #### T SH, BNP, CMP, LIPID, T7 #### Laboratory [address] [place] [address] Dr. Logan Payne MCV (RBC) [Entitic vol] 105.2 fL Critically high 81.0-99 .0 [facility] Comment on above: Performed By: #### T SH, BNP, CMP, LIPID, T7 #### Laboratory [address] [place] [address] Dr. Logan Payne MONO # 0.7 103/ul Normal 0.3-0.8 [facility] Comment on above: Performed By: #### T SH, BNP, CMP, LIPID, T7 #### Laboratory [address] [place] [address] Dr. Logan Payne Monocytes/100 WBC (Bld) 7.2 % Normal 1.7-12.0 [facility] Comment on above: Performed By: #### T SH, BNP, CMP, LIPID, T7 #### Laboratory [address] [place] [address] Dr. Logan Payne NEUT # 6.3 103/ul Normal 1.4-6.5 [facility] Comment on above: Performed By: #### T SH, BNP, CMP, LIPID, T7 #### Laboratory [address] [place] [address] Dr. Logan Payne Neutrophils/100 WBC (Bld) 61.0 % Normal 43.0-75.0 [facility] Comment on above: Performed By: #### T SH, BNP, CMP, LIPID, T7 #### Laboratory [address] [address] [address] Logan Payne Platelet mean volume (Bld) [Entitic vol] 9.3 fL Critically low 9.5-13.5 [facility] Comment on above: Performed By: #### T SH, BNP, CMP, LIPID, T7 #### Laboratory [address] [address] [address] Logan Payne PLT 245 103/ul Normal 150-450 [facility] Comment on above: Performed By: #### T SH, BNP, CMP, LIPID, T7 #### Laboratory [address] [place] [address] Dr. Logan Payne RBC 4.43 106/ul Normal 4.20-5.40 [facility] Comment on above: Result Comment: Macr ocytosis 1+ Performed By: #### T SH, BNP, CMP, LIPID, T7 #### Laboratory [address] [address] [address] Logan Payne WBC 10.3 103/ul Normal 4.0-11.0 [facility] Comment on above: Performed By: #### T SH, BNP, CMP, LIPID, T7 #### Laboratory [address] [place] [address] Dr. Logan Payne FREE THYROXINE INDEX T7on FTI 3.01 Normal [facility] Comment on above: Performed By: #### T SH, BNP, CMP, LIPID, T7 #### Laboratory [address] [place] [address] Dr. Logan Payne T3U 31.0 % Normal 23.5-40.5 [facility] Comment on above: Performed By: #### T SH, BNP, CMP, LIPID, T7 #### Laboratory [address] [place] [address] Dr. Logan Payne T4 [Mass/Vol] 9.70 ug/dL Normal 5.53-11.00 [facility] Comment on above: Performed By: #### T SH, BNP, CMP, LIPID, T7 #### Laboratory [address] [address] [address] Logan Payne GLYCOHEMOGLOBIN A1Con 2021 ADA RECOMMENDATION ADA THERAPEUTIC TARGET 6.0 - 7.0 ACTION SUGGESTED > 7.0 Normal [facility] Comment on above: Performed By: #### A 1C #### Laboratory [address] [address] [address] Logan Payne Glucose [Mass/Vol] 126 mg/dL Normal [facility] Comment on above: Performed By: #### A 1C #### Laboratory [address] [address] [address] Logan Payne HbA1c (Bld) [Mass fraction] 6.0 % Normal <=6.0 [facility] Comment on above: Performed By: #### A 1C #### Laboratory [address] [place] [address] Dr. Logan Payne IRONon 06-27-2021 Iron [Mass/Vol] 90.0 ug/dL Normal 37.0-170.0 [facility] Comment on above: Performed By: #### I GRANT #### Laboratory [address] [address] [address] Logan Payne LIPID PROFILEon 06-27-2021 CHOL-HDL RATIO NORM SEE BELOW Normal [facility] Comment on above: Result Comment: 3.3 - 4.4 LOW RISK 4.4 - 7.1 AVERAGE RISK 7.1 - 11.0 MODERATE RISK >11.0 HIGH RISK Performed By: #### T SH, BNP, CMP, LIPID, T7 #### Laboratory [address] [place] [address] Dr. Logan Payne Cholesterol [Mass/Vol] 209 mg/dL Critically high <=200 [facility] Comment on above: Performed By: #### T SH, BNP, CMP, LIPID, T7 #### Laboratory [address] [address] [address] Logan Payne Cholesterol in HDL [Mass/Vol] 62 mg/dL Normal [facility] Comment on above: Performed By: #### T SH, BNP, CMP, LIPID, T7 #### Laboratory [address] [address] [address] Logan Payne Cholesterol in LDL [Mass/Vol] 104.2 mg/dL Normal [facility] Comment on above: Performed By: #### T SH, BNP, CMP, LIPID, T7 #### Laboratory [address] [address] [address] Logan Payne Cholesterol.total/Gabriela sterol in HDL [Mass ratio] 3.4 {ratio} Normal [facility] Comment on above: Performed By: #### T SH, BNP, CMP, LIPID, T7 #### Laboratory [address] [address] [address] Logan Payne HDL NORMAL > or = 60 mg/dl - LO W CARDIOVASCULAR RISK <40 mg/dl - HIGH CARDIOVASCULAR RISK Normal [facility] Comment on above: Performed By: #### T SH, BNP, CMP, LIPID, T7 #### Laboratory [address] [address] [address] Logan Payne LDL CALC NORMAL SEE BELOW Normal [facility] Comment on above: Result Comment: <100 mg/dl OPTIMAL 100 - 129 mg/dl NEAR OR ABOVE OPTIMAL 130 - 159 mg/dl BORDERLINE HIGH 160 - 189 mg/dl HIGH >190 mg/dl VERY HIGH Performed By: #### T SH, BNP, CMP, LIPID, T7 #### Laboratory [address] [address] [address] Logan Payne Triglyceride [Mass/Vol] 214 mg/dL Critically high <=150 The Comment on above: Performed By: #### T SH, BNP, CMP, LIPID, T7 #### Laboratory [address] [address] [address] Logan Payne VLDL CALC 42.8 mg/dL Normal [facility] Comment on above: Performed By: #### T SH, BNP, CMP, LIPID, T7 #### Laboratory [address] [address] [address] Logan Payne PROF 14(COMP METB)on 022 Albumin [Mass/Vol] 4.3 g/dL Normal 3.5-5.0 [facility] Comment on above: Performed By: #### T SH, BNP, CMP, LIPID, T7 #### Laboratory [address] [address] [address] Logan Payne Albumin/Globulin [Mass ratio] 1.0 {ratio} Normal [facility] Comment on above: Performed By: #### T SH, BNP, CMP, LIPID, T7 #### Laboratory [address] [address] [address] Logan Payne ALP [Catalytic activity/Vol] 108 U/L Normal 38-126 [facility] Comment on above: Performed By: #### T SH, BNP, CMP, LIPID, T7 #### Laboratory [address] [address] [address] Logan Payne ALT [Catalytic activity/Vol] 59 U/L Critically high 9-52 [facility] Comment on above: Performed By: #### T SH, BNP, CMP, LIPID, T7 #### Laboratory [address] [place] [address] Dr. Logan Payne Anion gap [Moles/Vol] 16.0 mmol/L Normal [facility] Comment on above: Performed By: #### T SH, BNP, CMP, LIPID, T7 #### Laboratory [address] [address] [address] Logan Payne AST [Catalytic activity/Vol] 52 U/L Critically high 14-36 [facility] Comment on above: Performed By: #### T SH, BNP, CMP, LIPID, T7 #### Laboratory [address] [address] [address] Logan Payne Bilirubin [Mass/Vol] 0.3 mg/dL Normal 0.2-1.3 [facility] Comment on above: Performed By: #### T SH, BNP, CMP, LIPID, T7 #### Laboratory [address] [place] [address] Dr. Logan Payne Calcium [Mass/Vol] 9.9 mg/dL Normal 8.4-10.2 [facility] Comment on above: Performed By: #### T SH, BNP, CMP, LIPID, T7 #### Laboratory [address] [address] [address] Logan Payne Chloride [Moles/Vol] 105 mmol/L Normal 98-107 [facility] Comment on above: Performed By: #### T SH, BNP, CMP, LIPID, T7 #### Laboratory [address] [address] [address] Logan Payne CO2 [Moles/Vol] 21.6 mmol/L Critically low 22.0-30.0 [facility] Comment on above: Performed By: #### T SH, BNP, CMP, LIPID, T7 #### Laboratory [address] [address] [address] Logan Payne Creatinine [Mass/Vol] 1.01 mg/dL Normal 0.52-1.04 [facility] Comment on above: Performed By: #### T SH, BNP, CMP, LIPID, T7 #### Laboratory [address] [place] [address] Dr. Logan Payne EGFR-AF ETHIOPIAN >60 Normal >=60 [facility] Comment on above: Performed By: #### T SH, BNP, CMP, LIPID, T7 #### Laboratory [address] [address] [address] Logan Payne EGFR-NON AF ETHIOPIAN 53 mL/min/1.73m2 Critically low >=60 [facility] Comment on above: Performed By: #### T SH, BNP, CMP, LIPID, T7 #### Laboratory [address] [address] [address] Logan Payne Globulin (S) [Mass/Vol] 4.1 g/dL Normal [facility] Comment on above: Performed By: #### T SH, BNP, CMP, LIPID, T7 #### Laboratory [address] [address] [address] Logan Payne Glucose [Mass/Vol] 117 mg/dL Critically high 74-106 [facility] Comment on above: Performed By: #### T SH, BNP, CMP, LIPID, T7 #### Laboratory [address] [address] [address] Logan Payne Potassium [Moles/Vol] 4.6 mmol/L Normal 3.4-5.0 [facility] Comment on above: Performed By: #### T SH, BNP, CMP, LIPID, T7 #### Laboratory [address] [address] [address] Logan Payne Protein [Mass/Vol] 8.4 g/dL Critically high 6.1-8.2 [facility] Comment on above: Performed By: #### T SH, BNP, CMP, LIPID, T7 #### Laboratory [address] [address] [address] Logan Payne Sodium [Moles/Vol] 138 mmol/L Normal 137-145 [facility] Comment on above: Performed By: #### T SH, BNP, CMP, LIPID, T7 #### Laboratory [address] [place] [address] Dr. Logan Payne Urea nitrogen [Mass/Vol] 18.0 mg/dL Critically high 7.0-17.0 [facility] Comment on above: Performed By: #### T SH, BNP, CMP, LIPID, T7 #### Laboratory [address] [place] [address] Dr. Logan Payne Urea nitrogen/Creatinine [Mass ratio] 17.8 mg/mg Normal [facility] Comment on above: Performed By: #### T SH, BNP, CMP, LIPID, T7 #### Laboratory [address] [address] [address] Logan Payne TSHon 06-27-2021 TSH 1.510 uIU/mL Normal 0.470-4.680 [facility] Comment on above: Performed By: #### T SH, BNP, CMP, LIPID, T7 #### Laboratory [address] [address] [address] Logan Payne TSH RANGE SEE BELOW Normal [facility] Comment on above: Result Comment: <0.3 4 UIU/ml HYPERTHYROID 0.34-5.60 UIU/ml EUTHYROID >5.60 UIU/ml HYPOTHYROID Performed By: #### T SH, BNP, CMP, LIPID, T7 #### Laboratory [address] [place], [place] [address] Dr. Logan Payne Vital Signs Date Time Vital Sign Value Performing Clinician Faci lity 06-25-2022 11:18-0500 Body temperature 97.8 [degF] MD Irish Faustin Work Phone: [facility] 06-25-2022 11:18-0500 Diastolic blood pressure 70 mm[Hg] MD Irish Faustin Work Phone: [facility] 06-25-2022 11:18-0500 Heart rate 69 /min MD Irish Faustin Work Phone: [facility] 06-25-2022 11:18-0500 SaO2% (BldA) [Mass fraction] 94 % MD Irish Faustin Work Phone: [facility] 06-25-2022 11:18-0500 Systolic blood pressure 140 mm[Hg] MD Irish Faustin Work Phone: [facility] 06-25-2022 04:17-0500 Respiratory rate 18 /min MD Irish Faustin Work Phone: [facility] 06-24-2022 07:18-0500 Body height 157.48 cm MD Irish Faustin Work Phone: [facility] 06-22-2022 11:19-0500 Body weight 67.2 kg MD Irish Faustin Work Phone: [facility] 06-16-2022 16:00-0500 Body temperature 97.6 [degF] MD Irish Faustin Work Phone: [facility] 06-16-2022 16:00-0500 Diastolic blood pressure 75 mm[Hg] MD Irish Faustin Work Phone: [facility] 06-16-2022 16:00-0500 Heart rate 72 /min MD Irish Faustin Work Phone: [facility] 06-16-2022 16:00-0500 Respiratory rate 16 /min MD Irish Faustin Work Phone: [facility] 06-16-2022 16:00-0500 SaO2% (BldA) [Mass fraction] 96 % MD Irish Faustin Work Phone: [facility] 06-16-2022 16:00-0500 Systolic blood pressure 127 mm[Hg] MD Irish Faustin Work Phone: [facility] 06-16-2022 06:00-0500 Body weight 68.8 kg MD Irish Faustin Work Phone: [facility] 06-11-2022 15:23-0500 Body height 157.48 cm MD Irish Faustin Work Phone: [facility] 06-09-2022 12:00-0500 Inhaled oxygen flow rate 2 L/min MD Irish Faustin Work Phone: [facility] Encounters Encounter Date Encounter Type Care Provider Facility Start: 05-18-2023 End: 05-18-2023 ambulatory [facility] Start: 03-17-2023 End: 03-17-2023 ambulatory [facility] Start: 12-28-2022 End: 12-28[facility]2022 [facility] Start: 11-17-2022 End: 11-17-2022 ambulatory [facility] Start: 07-08-2022 End: 07-08-2022 ambulatory [facility] Start: 06-16-2022 End: 06-25-2022 Evaluation and management of inpatient Stiven Zaman Facility:[facility] Start: 06-16-2022 End: 06-25-2022 Evaluation and management of inpatient MD Irish Faustin Work Phone: [facility] Work Phone: Start: 06-13-[address] Yoav Prado Facility:[id number] Start: 06-11-[address] Irish Faustin Facility:[facility] Start: 06-09-[address] Irish Faustin Facility:[id number] Start: 06-09-2022 End: 06-16-2022 Evaluation and management of inpatient Chema Annia Facility:[facility] Start: 06-09-2022 End: 06-16-2022 Evaluation and management of inpatient MD Irish Faustin Work Phone: [facility] Work Phone: Start: 06-08-2022 End: 06-09-[address] IRISH FAUSTIN Facility:[facility] Start: 01-12-2022 ambulatory VENUS TONG Facility :[facility] Start: 11-27-2021 ambulatory VENUS TOGN Facility :[facility] Start: 11-22-2021 End: 11-25-2021 Evaluation and management of inpatient PHYSICIAN UNKNOWN Facility:[facility] Start: 11-05-2021 End: 11-06-2021 ambulatory VENUS TONG Facility:[facility] Start: 10-27-2021 End: 10-28-[address] IRISH FAUSTIN Facility:[facility] Start: 06-27-2021 End: 06-28-[address] IRISH FAUSTIN Facility:[facility] Procedures Date Procedure Procedure Detail Performing Clinician Start: 06-19-2022 Plain X-ray of left hip MD Irish Faustin Work Phone: Start: 06-12-2022 Doppler ultrasonogra phy of bilateral carotid arteries MD Irish Faustin Work Phone: Start: 06-12-2022 Magnetic resonance angiography of head without contrast MD Irish Faustin Work Phone: Start: 06-12-2022 MRI of head MD Irish Faustin Work Phone: Start: 06-11-2022 Plain chest X-ray MD Griffin Work Phone: Plan of Treatment Date Care Activity Detail Author Start: 06-25-2022 [facility] Start: 06-16-2022 [facility] Start: 06-16-2022 Hospital admission [facility] Start: 06-16-2022 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 [facility] Start: 06-16-2022 [facility] Start: 06-12-2022 Doppler ultrasonogra phy of bilateral carotid arteries US carotid doppler BI [facility] Start: 06-12-2022 US.doppler Carotid a rteries - bilateral [facility] Start: 06-09-2022 Hospital admission [facility] Patient Education Stroke (DC) [facility] Work Phone: Patient referral [facility] Work Phone: [facility] Payers Date Payer Category Payer Self-pay 1959 Medicare [id number] 1959 Private Health Insurance [id number] 1959 Self-pay [id number] 1940 Unknown [id number] 2.16.8 [id number] 1940 Unknown [id number] 2.16.84 [id number] 1940 Unknown [id number] 2.16.84 [id number] 1940 Unknown [id number] 2.16.84 [id number] 1940 Unknown [id number] 2.16.84 [id number] 1940 Unknown [id number] 2.16.84 [id number] 1940 Unknown [id number] 2.16.84 [id number] 1940 Unknown [id number] 2.16. [id number] 1940 Unknown [id number] 2.16. [id number] Unknown [id number] 2.16.8 [id number] Unknown [id number] 2.16.8 [id number] Social History Date Type Detail Facility Start: 06-09-2022 End: 06-17-2022 Tobacco smoking status NHIS Never smoked tobacco (finding) [facility] Start: 1940 Sex Assigned At Female F [facility] Goals Date Patient Goal Desired Activity /State Functional Status Date Assessment Result Facility 06-25-2022 Functional status Patient at Baseline [facility] Work Phone: 06-16-2022 Functional status Patient is Pro gressing Toward Baseline [facility] Work Phone: Mental Status Date Assessment Result Facility 06-25-2022 Cognitive function Cognitive Sta tus Patient at Baseline [facility] Work Phone: 06-16-2022 Cognitive function Cognitive Sta tus Patient is Progressing Toward Baseline [facility] Work Phone: Clinical Notes 11-26-2021 to 03-17-2023 Note Date & Type Note Facility 03-17-2023 Note [facility] Cardiology Clinic Note Chief Complaint: Patient here for follow up stress test done in Jan 2023. Shortly after that she was [facility] for severe sepsis and pneumonia. Daughter states Dr. Faustin decreased her lasix back down to 20mg daily and Eliquis down to 2.5mg bid. Patient denies chest pain and bleeding on Eliquis. SOB is only with exertion. HPI: Abdirahman Gomez is a 82 y.o. female past medical history of coronary artery disease status post three-vessel CABG in 2002, atrial flutter, complete heart block status post pacemaker insertion 11/24/2021, embolic stroke, and carotid stenosis seen in follow-up. Update: 12/28/2022 She is here with daughter Sharlene who is contributory to HPI Getting easily dyspneic on exertion over the last several months She developed chest pain this morning radiating to her jaw lasting for about 20 minutes She had just woken up this morning, this has occurred several times in the recent past legs feel weak when she walks No palpitations or significant lower extremity edema Shortly thereafter, the patient was admitted with pneumonia, sepsis, respiratory failure and hypoxia and cough with hemoptysis. Cardiology ROS: Review of Systems Cardiovascular: Positive for dyspnea on exertion and leg swelling (end of day). Neurological: Positive for light-headedness. All other systems reviewed and are negative. Past Medical History She has a past medical history of Aneurysm (CMS/HCC), Atrial fibrillation (CMS/HCC), Coronary artery disease, Heart valve disease, Hyperlipidemia, and Hypertension. Surgical History She has a past surgical history that includes CTA abdomen pelvis w and/or wo IV contrast (09/24/2018); US guided abscess drain (10/14/2018); Wrist surgery; Coronary artery bypass graft; Cardiac catheterization; Back surgery; Hysterectomy; Breast surgery; Appendectomy; Cataract extraction; Hip surgery; and Thyroidectomy. Social History She reports that she has never smoked. She has never used smokeless tobacco. She reports that she does not currently use alcohol. No history on file for drug use. Family History Family History Problem Relation Name Age of Onset Aneurysm Mother Alcohol abuse Father Allergies Ciprofloxacin, Codeine, Rosuvastatin, and Adhesive tape-silicones Medications Current Outpatient Medications: amitriptyline (Elavil) 25 mg tablet, Take 25 mg by mouth at bedtime., Disp: , Rfl: amLODIPine (Norvasc) 10 mg tablet, Take 1 tablet (10 mg) by mouth in the morning., Disp: 90 tablet, Rfl: 3 apixaban (Eliquis) 5 mg tablet, Take 5 mg by mouth in the morning and at bedtime., Disp: , Rfl: aspirin 81 mg EC tablet, Take 1 tablet by mouth in the morning., Disp: , Rfl: calcium carbonate-vitamin D3 500 mg-5 mcg (200 unit) tablet, Take 1 tablet by mouth in the morning., Disp: , Rfl: carvedilol (Coreg) 12.5 mg tablet, Take 1 tablet (12.5 mg) by mouth in the morning and at bedtime., Disp: 180 tablet, Rfl: 3 furosemide (Lasix) 20 mg tablet, Take 20 mg by mouth in the morning., Disp: , Rfl: HYDROcodone-acetaminophen ([place]) 5-325 mg tablet, Take 5-325 tablets by mouth in the morning and at bedtime., Disp: , Rfl: isosorbide mononitrate ER (Imdur) 60 mg 24 hr tablet, isosorbide mononitrate ER 60 mg tablet,extended release 24 hr, Disp: , Rfl: LORazepam (Ativan) 1 mg tablet, Take 1 mg by mouth in the morning and at bedtime., Disp: , Rfl: metFORMIN (Glucophage) 500 mg tablet, Take 500 mg by mouth in the morning., Disp: , Rfl: montelukast (Singulair) 10 mg tablet, montelukast 10 mg tablet, Disp: , Rfl: omega 5-zzm-byw-fish oil (Fish OiL) 1,000 mg (120 mg-180 mg) capsule, Take 100 mg by mouth in the morning., Disp: , Rfl: omeprazole (PriLOSEC) [address] capsule, Take 40 mg by mouth before breakfast., Disp: , Rfl: potassium chloride CR (Klor-Con M20) 20 mEq ER tablet, Take 20 mEq by mouth in the morning., Disp: , Rfl: pramipexole (Mirapex) 0.5 mg tablet, pramipexole 0.5 mg tablet, Disp: , Rfl: rosuvastatin (Crestor) 5 mg tablet, Take 5 mg by mouth once daily as directed., Disp: , Rfl: tiZANidine (Zanaflex) 4 mg tablet, Take 4 mg by mouth in the morning and at bedtime., Disp: , Rfl: valsartan (Diovan) 40 mg tablet, Take 40 mg by mouth in the morning., Disp: , Rfl: Last Recorded Vitals @IPVITALS@ Physical Examination: GENERAL: alert and oriented x3, well developed, in no acute distress. HEAD: atraumatic, normocephalic. EYES: SALO, EOMI. NECK: trachea midline, no JVD present, no carotid bruits present. CARDIAC: S1, S2 present. RRR. No murmur, rubs, or gallops. RESPIRATORY: CTAB, no increased effort of breathing, no rales, rhonchi, or wheezing. ABDOMEN: soft, nontender, nondistended. EXTREMITIES: no lower extremity edema, peripheral pulses are 2+ bilaterally. No rash/skin discoloration present. NEURO: strength/sensation equal and symmetric in bilateral upper and lower extremities. PSYCH: ap (more content not included)... [facility] 12-28-2022 Note Cardiology Clinic No te Subjective Abdirahman Gomez is a 82 y.o. year old female patient past medical history of coronary artery disease status post three-vessel CABG in 2002, atrial flutter, complete heart block status post pacemaker insertion 11/24/2021, embolic stroke, and carotid stenosis seen in follow-up. Patient Active Problem List Diagnosis Abdominal aortic aneurysm (CMS/HCC) Abdominal pain Chest pain Hip pain Bradycardia Closed bimalleolar fracture Closed fracture of neck of femur (CMS/HCC) CAD (coronary artery disease) Depressive disorder Diverticulitis of colon Dyspnea Epilepsy (CMS/HCC) Hypercholesterolemia Heart disease Insomnia Low back pain Pain in wrist Shoulder pain Palpitations Paroxysmal atrial fibrillation (CMS/HCC) S/P CABG x 3 Hypothyroidism Tinea corporis Tricuspid valve regurgitation Thyroid nodule Family History Problem Relation Name Age of Onset Aneurysm Mother Alcohol abuse Father Social History Tobacco Use Smoking status: Never Smokeless tobacco: Never Substance Use Topics Alcohol use: Not Currently HPI Abdirahman Gomez is a 81 y.o. female with a history of coronary atherosclerosis, atrial fibrillation, cardiac pacemaker in situ and dyspnea. Update: 07/08/2022 Seen in follow-up after recent hospitalization. She was found to have an embolic stroke. Her troponins were elevated. She was found to have a 60% carotid stenosis on the left side. She was seen by cardiology who felt her troponin elevation was likely supply demand mismatch. A transthoracic echo showed akinesis of the inferior wall with an ejection fraction of 50 to 55%. An MRI showed bilateral ischemic strokes in both hemispheres, right parietal lobe and left occipital lobe. A carotid Doppler showed 50 to 69% stenosis in the left neck with possible occlusion of the right vertebral artery due to poor visualization. Medical therapy was recommended. She noticed bright red blood in the stools consistent with lower GI bleed however she was cleared to remain on Eliquis. The etiology was likely mild diverticular bleed. Update: 12/28/2022 She is here with daughter Sharlene who is contributory to HPI Getting easily dyspneic on exertion over the last several months She developed chest pain this morning radiating to her jaw lasting for about 20 minutes She had just woken up this morning, this has occurred several times in the recent past legs feel weak when she walks No palpitations or significant lower extremity edema Review of Systems Cardiovascular: Positive for chest pain and dyspnea on exertion. Negative for leg swelling, near-syncope, orthopnea, palpitations and paroxysmal nocturnal dyspnea. Neurological: Positive for light-headedness. Objective Visit Vitals BP 140/78 (BP Location: Left arm, Patient Position: Sitting, BP Cuff Size: Adult) Pulse 75 Ht 1.575 m (5' 2 ) Wt 66.6 kg (146 lb 14.4 oz) SpO2 93% BMI 26.87 kg/m??? Smoking Status Never BSA 1.71 m??? Physical Exam General: Awake, alert, NAD Pulm: bibasilar crackles Cards: Regular rate and rhythm, S1, S2. No S3 or S4 gallop. Murmur: none Extr: Lower extremity edema: None. Skin: warm, dry, well perfused Neuro: A&Ox3, No gross deficits Allergies Allergies Allergen Reactions Ciprofloxacin Codeine Rosuvastatin Other Myalgia Adhesive Tape-Silicones Rash Medications Current Outpatient Medications: amitriptyline (Elavil) 25 mg tablet, Take 25 mg by mouth at bedtime., Disp: , Rfl: amLODIPine (Norvasc) 10 mg tablet, Take 1 tablet (10 mg) by mouth in the morning., Disp: 90 tablet, Rfl: 3 apixaban (Eliquis) 5 mg tablet, Take 5 mg by mouth in the morning and at bedtime., Disp: , Rfl: aspirin 81 mg EC tablet, Take 1 tablet by mouth in the morning., Disp: , Rfl: calcium carbonate-vitamin D3 500 mg-5 mcg (200 unit) tablet, Take 1 tablet by mouth in the morning., Disp: , Rfl: carvedilol (Coreg) 12.5 mg tablet, Take 1 tablet (12.5 mg) by mouth in the morning and at bedtime., Disp: 180 tablet, Rfl: 3 furosemide (Lasix) 20 mg tablet, Take 20 mg by mouth in the morning., Disp: , Rfl: HYDROcodone-acetaminophen ([place]) 5-325 mg tablet, Take 5-325 tablets by mouth in the morning and at bedtime., Disp: , Rfl: isosorbide mononitrate ER (Imdur) 60 mg 24 hr tablet, isosorbide mononitrate ER 60 mg tablet,extended release 24 hr, Disp: , Rfl: LORazepam (Ativan) 1 mg tablet, Take 1 mg by mouth in the morning and at bedtime., Disp: , Rfl: montelukast (Singulair) 10 mg tablet, montelukast 10 mg tablet, Disp: , Rfl: omega 1-kdt-scf-fish oil (Fish OiL) 1,000 mg (120 mg-180 mg) capsule, Take 100 mg by mouth in the morning., Disp: , Rfl: omeprazole (PriLOSEC) [address] capsule, Take 40 mg by mouth before breakfast., Disp: , Rfl: potassium chloride CR (Klor-Con M20) 20 mEq ER tablet, Take 20 mEq by mouth in the morning., Disp: , Rfl: pramipexole (Mirapex) 0.5 mg tabl (more content not included)... [facility] 07-08-2022 Note [facility] Cardiology Clinic Note Chief Complaint: Patient being seen via telephone call for follow up [facility]. She was started on Eliquis. Daughter states she's been holding her aspirin because she wasn't sure if she should be on that with the Eliquis. Her potassium was decreased to once daily, and valsartan was added. She had echo and saw cardiology there while inpatient. HPI: Abdirahman Gomez is a 81 y.o. female with a history of coronary atherosclerosis, atrial fibrillation, cardiac pacemaker in situ and dyspnea here in follow-up after recent hospitalization. She was found to have an embolic stroke. Her troponins were elevated. She was found to have a 60% carotid stenosis on the left side. She was seen by cardiology who felt her troponin elevation was likely supply demand mismatch. A transthoracic echo showed akinesis of the inferior wall with an ejection fraction of 50 to 55%. An MRI showed bilateral ischemic strokes in both hemispheres, right parietal lobe and left occipital lobe. A carotid Doppler showed 50 to 69% stenosis in the left neck with possible occlusion of the right vertebral artery due to poor visualization. Medical therapy was recommended. She noticed bright red blood in the stools consistent with lower GI bleed however she was cleared to remain on Eliquis. The etiology was likely mild diverticular bleed. Cardiology ROS: Review of Systems Musculoskeletal: Positive for muscle weakness. All other systems reviewed and are negative. Past Medical History She has no past medical history on file. Surgical History She has a past surgical history that includes CT abdomen pelvis angiogram w and/or wo IV contrast (09/24/2018) and US guided abscess drain (10/14/2018). Social History She has no history on file for tobacco use, alcohol use, and drug use. Family History No family history on file. Allergies Ciprofloxacin and Codeine Medications (Not in a hospital admission) Last Recorded Vitals BP at home 130/72 mmHg Physical Examination: Unobtainable Assessment: Atrial fibrillation; CHADS2-VASc 7 on Eliquis Tricuspid valve regurgitation Coronary arteriosclerosis Cardiac pacemaker in situ Dyspnea Hypertensive disorder CVA; cardioembolic strokes Plan: Continue medical rx; will have her continue ASA and Eliquis. I explained that I would like her on both for at least 2 to 3 months after hospitalization and then we can discontinue aspirin and continue the Eliquis alone Troponin elevation during her hospital stay was likely supply demand mismatch. She has no concerning symptoms at this point. Her ejection fraction is low normal. We will monitor for now. Device interrogation per protocol Follow-up with GI, neurology, and/or vascular surgery as indicated at the time of her discharge Return to clinic in 4 to 6 months or sooner should problems arise; will likely schedule an echocardiogram at her next visit to evaluate ejection fraction, wall motion and other parameters Date of phone call: 07/08/2022 No chief complaint on file. Total time spent in Medical Discussion: 12 minutes. Total 12 minutes. The visit was initiated by the patient and conducted [id number] with use of audio-only real time telephone communication between patient and provider for a virtual visit. Verbal consent to provide and bill for this service was obtained on 07/08/2022. Alexandria Santos MD, MPH, [facility], [facility], [facility] Interventional Cardiology Pager Email: [email or web address] 06-24-2022 Discharge summary Note Date/Time June 24, 2022 12:11pm [facility] [address] [place] [address] Discharge Summary Signed Patient: Abdirahman Gomez MR#: [id number] : 1940 Acct:[id number] Age/Sex: 81 / F Adm Date: 3 Loc: Room: [address] [place] [address]: Stiven Zaman MD Copies to: MD Lori Mccullough, KIM Zaman MD~ Providers Date of Discharge: 06/25/22 Discharging Provider: Lori Crowell Primary Care Provider: Irish Faustin Consults: 06/16/22 18:36 Consult to Adult Hospitalist Routine Consult to Dietitian Routine Consult to Occupational Therapy Routine Consult to Physical Therapy Routine Speech Admit Screen Routine 06/16/22 18:42 Consult to Speech Therapy Routine Discharge Diagnosis (1) Paroxysmal atrial fibrillation: (2) Embolic stroke: (3) Elevated troponin: (4) Hypertension: (5) Pacemaker: (6) Chronic pain: (7) Anxiety: (8) Impaired mobility and activities of daily living: Final Diagnosis Final Discharge Diagnosis: As above Summary Hospital Course Hospital course: Ms. Gomez is a 81 year old female with history of CAD s/p remote CABG, atrial fibrillation, pacemaker, admitted to the rehabilitation unit with functional decline secondary to bilateral hemisphere cardioembolic stroke, right parietal lobe, left occipital lobe. She presented to outside facility around [place] with several days of generalized weakness. Her troponins were elevated. She was transferred to [facility]. Cardiology was consulted, did not feel acute ischemic event. TTE with akinesis of inferior wall of left ventricle with EF of 50 to 55%. MRI with ischemic infarcts as above. MRA unremarkable. Carotid duplex 50-69% stenosis in L neck, possible occlusion of R vertebral artery due to poor visualization. Medical therapy recommended She noticed some bright red blood in the stool on admission to [place], consistent with lower GI bleed. She was cleared to remain on Eliquis. Etiologylikely mild diverticular bleed. During rehab stay patient complained of left hip pain from a fall she sustained prior to admission. Left hip x-ray performed to rule out acute fracture, negative for acute abnormality. No further GI bleeding with continued Eliquis therapy. Otherwise, patient had an unremarkable rehabilitation course and near complete resolution of left-sided deficits. She is ambulatory with a cane for household and community distances, independent with bed mobility, transfers, and ADLs. She will be discharged home with [facility] and [facility] home health services tomorrow. She already has all the necessary DME equipment. Condition Condition at Discharge: Stable Status at Discharge Functional status at discharge: uses cane/walker Time Spent with Patient Time spent providing/coordinating discharge services (# min): 35 Specific discharge activities: Total time spent discharging this patient > 30 minutes Greater than 30 minutes spent preparing the patient for discharge including the following: Discussion of the hospital stay with patient and/or family Instructions for continuing care to all relevant caregivers Reviewing discharge plan with medical staff, social work, care management, and nursing staff Supervision of discharge paperwork, medication reconciliation, prescriptions, and outpatient appointments Prescribed necessary DME at discharge when indicated Exam Physical Exam Vital Signs: Temp Pulse Resp BP Pulse Ox O2 Del Method 97.1 F L 75 18 125/71 95 Room Air 06/24/22 08:34 06/24/22 08:34 06/24/22 08:34 06/24/22 08:34 06/24/22 08:34 06/24/22 08:34 Narrative: Const General: cooperative, comfortable, no acute distress, well developed, well groomed Nutritional Appearance: Overweight Orientation: alert, awake and oriented x3 Limitations: None HEENT Head: normal to inspection, normocephalic and atraumatic Ears: hearing grossly normal bilaterally Nose: external nose normal Face and sinus: normal facial exam Eyes General: appearance normal, both eyes and all related structures Pupils: PERRL EOM: EOM intact bilaterally Neck Neck: normal visual inspection, full ROM, no lymphadenopathy and trachea midline Neck mass: No Chest Chest palpation & inspection: normal inspection of the chest Resp Effort & Inspection: normal respiratory effort, able to speak in complete sentences, symmetric chest movement and no cough Auscultation: clear to auscultation bilaterally Cardio Jugular venous pressure: no JVD Rhythm: Regular rhythm and rate GI: Inspection: normal to inspection Palpation: soft, no hepatosplenomegaly and nontender Auscultation: normal bowel sounds Musc Cervical Spine: normal cervical lordosis and cervical ROM normal Thoracic/Lumbar Spine: thoraco-lumbar ROM normal Skin General: no rashes or lesions noted Neuro General: patient alert, oriented x3, moves all extremities. Residual left-sidedweakness in upper and lower extremity. 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, unchanged Cranial Nerves: PERRL Speech: speech normal Extrem Other: WNL Psych Appearance: grossly normal Mental Status: WNL Mood: congruent mood Affect: normal affect Speech and Movement: speech and movement normal Attitude: cooperative Insight: Good Judgment: Good Discharge Plan Discharge Plan Patient Disposition: Home Health [facility] Activity: Ambulate as Tolerated Diet: Low-Sodium and Low-Cholesterol Comment: Heart Healthy 3-4gm Sodium Additional Instructions: -Code Status: Full Code -Activity: Ambulate as tolerated -Diet: Heart Healthy 3-4gm Sodium, low cholesterol -Follow feeding strategies: Sit upright 90 degrees, pacing/slow rate, alternate liquids/solids. Your Home Health agency is [facility] ( ). They will contact you within 24 hours of discharge to schedule a day/time to meet with you at your home to establish care. You have been given prescriptions for new and/or needed medications. These prescriptions are for a one-time fill only, with no re-fills. For further re-fills going forward, you will need to address with your PCP at your follow up appointment, or by calling your PCP?s office prior to the prescriptions running out. NOTE: please call within 24 hours if you need to cancel or change any follow up appointments. Arrive early to all follow up appointments, bring current medication list, photo ID and any insurance card(s) to all future follow ups (listed below). Please remember to wear a mask to all appointments. If you develop any symptoms (cough, fever/chills, shortness of breath, sore throat, nausea/vomiting, etc.) please contact your provider's office to inform them prior to your appointment. Instructions: Stroke (DC) Prescriptions: New atorvastatin 80 mg Tablet 80 mg PO HS 30 Days Qty: 30 0RF carvedilol 12.5 mg Tablet 12.5 mg PO BID 30 Days Qty: 60 0RF amlodipine 10 mg Tablet 10 mg PO HS 30 Days Qty: 30 0RF cholecalciferol (vitamin D3) [Vitamin D3] 125 mcg (5,000 unit) Tablet 125 mcg PO DAILY Qty: 30 0RF Eliquis 5 mg Tablet 5 mg PO BID 30 Days Qty: 60 0RF metformin 500 mg Tablet 500 mg PO DAILY 30 Days Qty: 30 0RF polyethylene glycol 3350 [Miralax] 17 gram Powder In Packet 17 g PO DAILY Qty: 30 0RF isosorbide mononitrate 60 mg Tablet Extended Release 24 Hr 60 mg PO DAILY 30 Days Qty: 30 0RF omeprazole 20 mg Capsule,Delayed Release(Dr/Ec) 40 mg PO DAILY 30 Days Qty: 60 0RF montelukast 10 mg Tablet 10 mg PO HS 30 Days Qty: 30 0RF furosemide 20 mg Tablet 20 mg PO DAILY 30 Days Qty: 30 0RF melatonin 5 mg Tablet 5 mg PO QHS PRN (Reason: Insomnia) 30 Days Qty: 30 0RF sennosides [Senna Lax] 8.6 mg Tablet 2 tab PO BID 30 Days Qty: 120 0RF tizanidine 4 mg Tablet 4 mg PO BID PRN (Reason: Pain) 30 Days Qty: 20 0RF acetaminophen 500 mg Tablet 500 mg PO Q4H PRN (Reason: Pain) Qty: 90 0RF pramipexole 0.5 mg Tablet 0.5 mg PO HS 30 Days Qty: 30 0RF potassium chloride [Klor-Con M20] 20 mEq Tablet,Er Particles/Crystals 20 meq PO DAILY 30 Days Qty: 30 0RF valsartan 40 mg Tablet 40 mg PO DAILY 30 Days Qty: 30 0RF Metamucil Fiber Singles 3.4 gram Powder In Packet 1 packet PO BID 30 Days Qty: 30 0RF hydrocodone-acetaminophen 5-325 mg Tablet 1 tab PO BID PRN (Reason: Pain) 7 Days Qty: 14 0RF Discontinued isosorbide mononitrate 60 mg tablet extended release 24 hr 60 mg PO DAILY tizanidine 4 mg tablet 4 mg PO BID PRN (Reason: Pain) hydrocodone-acetaminophen 5-325 mg tablet 1 tab PO Q12H PRN (Reason: Pain) Hold Instructions: Resume on 07/06/22. amlodipine 10 mg tablet 10 mg PO HS montelukast 10 mg tablet 10 mg PO HS carvedilol 12.5 mg tablet 12.5 mg PO BID pramipexole 0.5 mg tablet 0.5 mg PO HS furosemide 20 mg tablet 20 mg PO DAILY cholecalciferol (vitamin D3) [Vitamin D3] 125 mcg (5,000 unit) Tablet 125 mcg PO DAILY atorvastatin 80 mg Tablet 80 mg PO HS Qty: 0 0RF omeprazole 40 mg capsule,delayed release(DR/EC) 40 mg PO DAILY 30 Days Qty: 0 0RF polyethylene glycol 3350 [Miralax] 17 gram Powder In Packet 17 g PO DAILY Qty: 0 0RF melatonin 5 mg Tablet 5 mg PO QHS PRN (Reason: Insomnia) Qty: 0 0RF Metamucil Fiber Singles 3.4 gram Powder In Packet 1 packet PO BID Qty: 0 0RF Eliquis 5 mg Tablet 5 mg PO BID Qty: 0 0RF sennosides [Senna Lax] 8.6 mg Tablet 2 tab PO BID Qty: 0 0RF valsartan 40 mg Tablet 40 mg PO BID Qty: 0 0RF potassium chloride [Klor-Con M20] 20 mEq tablet,ER particles/crystals 20 meq PO DAILY Qty: 30 0RF metformin 500 mg tablet 500 mg PO DAILY Qty: 30 0RF Other Ambulatory Orders: Initiate Home Health (Routine) Timeframe: [id number] Location: Determined by Patient Ordered By: Stiven Zaman Follow Up: Mamadou Doshi MD [Active Staff] - 06/29/22 10:00 am (follow up for carotid stenosis) Irish Faustin MD [Primary Care Provider] - 07/01/22 10:30 am (follow up with PCP within 1 to 2 weeks after discharge from rehab) Rosenda Palencia APRN [Nurse Practitioner] - 07/06/22 10:00 am Stiven Zaman MD [Active Staff] - (-Rehab Physician: follow up as/if needed.) Documented By: Stiven Zaman MD 06/25/22 1211 Signed By: <Electronically signed by Stiven Zaman MD> 06/26/22 1507 <Electronically signed by KIM Crowell> 06/25/22 1308 [facility] Work Phone: [phone]) 558-228701-11-2023 Hospital Discharge instructionsAmbulatory Orders* Initiate Home Health Time Frame: 06/24/22, Location: Determined By Patient Additional Instructions -Code Status: Full Code -Activity: Ambulate as tolerated -Diet: Heart Healthy 3-4gm Sodium, low cholesterol -Follow feeding strategies: Sit upright 90 degrees, pacing/slow rate, alternate liquids/solids. Your Home Health agency is [facility] ( ). They will contact you within 24 hours of discharge to schedule a day/time to meet with you at your home to establish care. You have been given prescriptions for new and/or needed medications. These prescriptions are for a one-time fill only, with no re-fills. For further re-fills going forward, you will need to address with your PCP at your follow up appointment, or by calling your PCP s office prior to the prescriptions running out. NOTE: please call within 24 hours if you need to cancel or change any follow up appointments. Arrive early to all follow up appointments, bring current medication list, photo ID and any insurance card(s) to all future follow ups (listed below). Please remember to wear a mask to all appointments. If you develop any symptoms (cough, fever/chills, shortness of breath, sore throat, nausea/vomiting, etc.) please contact your provider's office to inform them prior to your appointment.[facility] Work Phone: 1(234) 660-217101-10-2023 Progress note Author Stiven Zaman [facility] June 23, 2022 9:35pm Note Date/Time June 22, 2022 11 :35am [facility] [address] [place] [address] Physiatry(Rehab) Progress Note Signed Patient: Abdirahman Gomez MR#: [id number] : 1940 Acct:[id number] Age/Sex: 81 / F Adm Date: 3 Loc: Room: [address] [place] [address] Type: ADM IN Attending Dr: Stiven Zaman MD Copies to: ~ <Lori Crowell APRN - Last Filed: 06/22/22 11:45> Date of Service: 06/22/2022 Subjective <Lori Crowell APRN - Last Filed: 06/22/22 11:45> Subjective Narrative: Ms. Gomez is a 81 year old female with history of CAD status post CABG, remote, atrial fibrillation, pacemaker placed, admitted to the rehabilitation unit with functional decline secondary to bilateral hemisphere cardioembolic stroke, right parietal lobe, left occipital lobe. She presented to outside facility around [place] with several days of generalized weakness. Her troponins were elevated. She was transferred to [facility]. Cardiology was consulted, did not feel acute ischemic event. TTE with akinesis of inferior wall of left ventricle with EF of 50 to 55%. MRI with ischemic infarcts as above. MRI unremarkable. Carotid duplex 50-69% stenosis in L neck, possible occlusion of R vertebral artery due to poor visualization.? Medical therapy recommended She noticed some bright red blood in the stool on admission to [place], consistent with lower GI bleed. She was cleared to remain on Eliquis. Etiologylikely mild diverticular bleed. Interval history: Patient seen and examined in her room this morning. She is alert and oriented, pleasant and cooperative with exam. She continues to endorse mild lumbar pain and left hip pain with activity. States, Tylenol effectively relieves the pain but she wants to avoid any pain medications as much as possible. Otherwise, offers no complaints or concerns. Neurological deficits appear to be improving. Her appetite is good, no abdominal pain or constipation. She is pleased with her advancement in therapy. Today she was able to do some stairs, ambulated 150 feet without assistive device, contact-guard assist. Chronic conditions stable. Review of Systems <Lori Crowell APRN - Last Filed: 06/22/22 11:45> Review of Systems All other systems reviewed & are negative unless noted below or in HPI Constitutional Constitutional: Reports system reviewed and no additional complaints, except as documented Eyes Eyes: Reports system reviewed and no additional complaints, except as documented ENT Ears, Nose, Mouth, and Throat: Reports system reviewed and no additional complaints, except as documented Cardiovascular Cardiovascular: Reports system reviewed and no additional complaints, except as documented Respiratory Respiratory: Reports system reviewed and no additional complaints, except as documented Gastrointestinal Gastrointestinal: Reports system reviewed and no additional complaints, except as documented Genitourinary Genitourinary: Reports system reviewed and no additional complaints, except as documented Musculoskeletal Musculoskeletal: Reports system reviewed and no additional complaints, except asdocumented and Reports abnormal gait Integumentary/Breasts Skin/Breast: Reports system reviewed and no additional complaints, except as documented Neurologic Neurologic: Reports system reviewed and no additional complaints, except as documented Psychiatric Psychiatric: Reports system reviewed and no additional complaints, except as documented Endocrine Endocrine: Reports system reviewed and no additional complaints, except as documented Hematologic/Lymphatic Hematologic/Lymphatic: Reports system reviewed and no additional complaints, except as documented Allergic/Immunologic Allergic/Immunologic: Reports system reviewed and no additional complaints, except as documented Exam <Lori Crowell APRN - Last Filed: 06/22/22 11:45> Physical Exam Vital Signs: Temp Pulse Resp BP Pulse Ox O2 Del Method 97.7 F 71 18 145/76 H 94 L Room Air 06/22/22 05:01 06/22/22 09:20 06/22/22 05:01 06/22/22 09:20 06/22/22 09:20 06/22/22 09:32 Narrative: Const General: cooperative, comfortable, no acute distress, well developed, well groomed Nutritional Appearance: Overweight Orientation: alert, awake and oriented x3 Limitations: None HEENT Head: normal to inspection, normocephalic and atraumatic Ears: hearing grossly normal bilaterally Nose: external nose normal Face and sinus: normal facial exam Eyes General: appearance normal, both eyes and all related structures Pupils: PERRL EOM: EOM intact bilaterally Neck Neck: normal visual inspection, full ROM, no lymphadenopathy and trachea midline Neck mass: No Chest Chest palpation & inspection: normal inspection of the chest Resp Effort & Inspection: normal respiratory effort, able to speak in complete sentences, symmetric chest movement and no cough Auscultation: clear to auscultation bilaterally Cardio Jugular venous pressure: no JVD Rhythm: Regular rhythm and rate GI: Inspection: normal to inspection Palpation: soft, no hepatosplenomegaly and nontender Auscultation: normal bowel sounds Musc Cervical Spine: normal cervical lordosis and cervical ROM normal Thoracic/Lumbar Spine: thoraco-lumbar ROM normal Skin General: no rashes or lesions noted Neuro General: patient alert, oriented x3, moves all extremities. Residual left-sidedweakness in upper and lower extremity. 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, unchanged Cranial Nerves: PERRL Speech: speech normal Extrem Other: WNL Psych Appearance: grossly normal Mental Status: WNL Mood: congruent mood Affect: normal affect Speech and Movement: speech and movement normal Attitude: cooperative Insight: Good Judgment: Good Objective <Lori Crowell, AGRICULTURAL EDUCATION PROFESSOR - Last Filed: 06/22/22 11:45> Labs 06/17/22 06:15 06/17/22 06:15 Medications and Allergies Allergies and Active Meds: Allergies ciprofloxacin Allergy (Severe, Verified 06/09/22 04:31) Redness of Skin codeine Allergy (Mild, Verified 06/09/22 04:31) Itching Active Medications Generic Name Dose Route Start Last Admin Trade Name Freq PRN Reason Stop Dose Admin Acetaminophen 500 mg 06/16/22 18:36 06/22/22 09:13 Acetaminophen 500 Mg Tablet PO 06/16/23 18:35 500 mg Q4H PRN Administration Pain Hydrocodone Bitart/Acetaminophen 1 tab 06/19/22 15:20 06/20/22 13:42 Hydrocodone/Acetaminophen 5-325 Mg Tablet PO 1 tab BID PRN Administration Pain Al Hydrox/Mg Hydrox/Simethicone 30 ml 06/16/22 18:36 Mag Hydrox/Al Hydrox/Simeth 30 Ml Udc PO 06/16/23 18:35 Q4H PRN Indigestion Amlodipine Besylate 10 mg 06/16/22 22:00 06/21/22 21:34 Amlodipine 10 Mg Tablet PO 06/16/23 21:59 10 mg HS JAK Administration Apixaban 5 mg 06/16/22 21:00 06/22/22 09:13 Apixaban 5 Mg Tablet PO 06/16/23 20:59 5 mg BID JAK Administration Atorvastatin Calcium 80 mg 06/16/22 22:00 06/21/22 21:33 Atorvastatin 80 Mg Tablet PO 06/16/23 21:59 80 mg HS JAK Administration Bisacodyl 10 mg 06/16/22 18:36 Bisacodyl 10 Mg Supp.Rect NV 06/16/23 18:35 DAILY PRN Constipation Carvedilol 12.5 mg 06/16/22 21:00 06/22/22 09:13 Carvedilol 12.5 Mg Tablet PO 06/16/23 20:59 12.5 mg BID JAK Administration Docusate Sodium 100 mg 06/16/22 18:36 Docusate 100 Mg Capsule PO 06/16/23 18:35 BID PRN Constipation Docusate Sodium 283 mg 06/16/22 18:36 Docusate Enema 283 Mg/5 Ml Enema NV 06/16/23 18:35 DAILY PRN Constipation Furosemide 20 mg 06/17/22 09:00 06/22/22 09:13 Furosemide 20 Mg Tablet PO 06/17/23 08:59 20 mg DAILY JAK Administration Isosorbide Mononitrate 60 mg 06/17/22 09:00 06/22/22 09:13 Isosorbide Mononitrate 24hr Er 60 Mg Tab.Er.24h PO 06/17/23 08:59 60 mg DAILY JAK Administration Lactulose 30 gm 06/16/22 18:36 Lactulose 20 Gm/30 Ml Udc PO 06/16/23 18:35 DAILY PRN Constipation Melatonin 5 mg 06/16/22 18:35 06/21/22 21:33 Melatonin 5 Mg Tablet PO 06/16/23 18:34 5 mg QHS PRN Administration Insomnia Metformin HCl 500 mg 06/17/22 09:00 06/22/22 09:13 Metformin 500 Mg Tablet PO 06/17/23 08:59 500 mg DAILY JAK Administration Montelukast Sodium 10 mg 06/16/22 22:00 06/21/22 21:33 Montelukast 10 Mg Tablet PO 06/16/23 21:59 10 mg HS JAK Administration Omeprazole 40 mg 06/17/22 09:00 06/22/22 09:13 Omeprazole 20 Mg Capsule.Dr PO 06/17/23 08:59 40 mg DAILY JAK Administration Ondansetron HCl 4 mg 06/19/22 21:19 06/20/22 20:40 Ondansetron Odt 4 Mg Tab.Rapdis PO 06/19/23 21:18 4 mg Q6HR PRN Administration Nausea And Vomiting Polyethylene Glycol 17 gm 06/17/22 09:00 06/22/22 09:14 Polyethylene Glycol 3350 17 Gm Powd.Pack PO 06/17/23 08:59 Not Given DAILY JAK Potassium Chloride 20 meq 06/17/22 09:00 06/22/22 09:13 Potassium Chloride Er 20 Meq Tab.Er.Prt PO 06/17/23 08:59 20 meq DAILY JAK Administration Pramipexole Dihydrochloride 0.5 mg 06/16/22 22:00 06/21/22 21:34 Pramipexole 0.5 Mg Tablet PO 06/16/23 21:59 0.5 mg HS JAK Administration Psyllium Hydrophilic Mucilloid 1 packet 06/16/22 21:00 06/22/22 09:14 Psyllium Husk 3.4 Gm Packet PO 06/16/23 20:59 Not Given BID JAK Sennosides 2 tab 06/16/22 21:00 06/22/22 09:14 Sennosides 8.6 Mg Tablet PO 06/16/23 20:59 Not Given BID JAK Sennosides 2 tab 06/17/22 12:00 Sennosides 8.6 Mg Tablet PO 06/17/23 11:59 DAILY@12 PRN If no BM in 2 days Sodium Chloride 0 ml 06/16/22 18:36 Sodium Chloride 0.9 % 10 Ml Syringe IV-PUSH 06/16/23 18:35 PRN PRN Flush Tizanidine HCl 4 mg 06/16/22 18:35 06/21/22 21:33 Tizanidine 4 Mg Tablet PO 06/16/23 18:34 4 mg BID PRN Administration Pain Valsartan 40 mg 06/18/22 09:00 06/22/22 09:13 Valsartan 40 Mg Tablet PO 06/18/23 08:59 40 mg DAILY JAK Administration Vitamin D 125 mcg 06/17/22 09:00 06/22/22 09:13 Cholecalciferol 125 Mcg (5,000 Units) Tablet PO 06/17/23 08:59 125 mcg DAILY JAK Administration Assessment/Plan <Lori Crowell APRN - Last Filed: 06/22/22 11:45> Assessment/Plan (1) Paroxysmal atrial fibrillation: Code(s): I48.0 - Paroxysmal atrial fibrillation Status: Acute (2) Embolic stroke: Code(s): I63.9 - Cerebral infarction, unspecified Status: Acute (3) Elevated troponin: Code(s): R77.8 - Other specified abnormalities of plasma proteins Status: Acute (4) Hypertension: Code(s): I10 - Essential (primary) hypertension Status: Acute (5) Pacemaker: Code(s): Z95.0 - Presence of cardiac pacemaker Status: Acute (6) Chronic pain: Code(s): G89.29 - Other chronic pain Status: Acute (7) Anxiety: Code(s): F41.9 - Anxiety disorder, unspecified Status: Acute (8) Impaired mobility and activities of daily living: Code(s): Z74.09 - Other reduced mobility; Z78.9 - Other specified health status Status: Acute Plan 81-year-old female with medical history as above including CAD status post CABG,remotely, paroxysmal atrial fibrillation and pacemaker placement admitted to therehabilitation unit with 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 * Patient is clinically stable. Neurological deficits are gradually improving. * Vitals are within normal limits, BP is better controlled. * Progressing in therapy. Walking functional distances without assistive d evice. Will need to schedule an FI with family soon. * Repeat labs tomorrow Hospitalist to assist with management of comorbid medical conditions Pain control: Continue current medications. Consider d/c tizanidine with h/o afib. Chronic pain received [place] 5/[address] Faustin. Will change from q4h to twice daily as at home. OARRS reviewed. Bowel and bladder: Continent. Skin: No pressure ulcers Sleep: Optimize sleep / wake. DVT prophylaxis: Covered with Eliquis. Functional status: Ambulatory. Needs assist. Left hemiplegia. Impaired endurance. Discharge planning: Home 7-10 days. I spent greater than 15 minutes for services, including [id number] encounter with the patient, discussion of the case, plan of care, and exam; and [id number] activities, such as reviewing pertinent eap consultant documentation, recent therapy notes, laboratory and radiology studies, and discussion of case with care team including physician, nursing, family caseworker, and therapists. More than 50 % of time was spent on patient/family counseling or coordination ofcare. Decision <Stiven Zaman MD - Last Filed: 06/23/22 21:35> Assessment/Plan (1) Paroxysmal atrial fibrillation: (2) Embolic stroke: (3) Elevated troponin: (4) Hypertension: (5) Pacemaker: (6) Chronic pain: (7) Anxiety: (8) Impaired mobility and activities of daily living: Plan 81-year-old female with medical history as above including CAD status post CABG,remotely, paroxysmal atrial fibrillation and pacemaker placement admitted to therehabilitation unit with 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 * Patient is clinically stable. Neurological deficits are gradually improving. * Vitals are within normal limits, BP is better controlled. * Progressing in therapy. Walking functional distances without assistive device. Will need to schedule an FI with family soon. * Repeat labs tomorrow Hospitalist to assist with management of comorbid medical conditions Pain control: Continue current medications. Consider d/c tizanidine with h/o afib. Chronic pain received [place] 5/[address] Faustin. Will change from q4h to twice daily as at home. OARRS reviewed. Bowel and bladder: Continent. Skin: No pressure ulcers Sleep: Optimize sleep / wake. DVT prophylaxis: Covered with Eliquis. Functional status: Ambulatory. Needs assist. Left hemiplegia. Impaired endurance. Discharge planning: Home end of week I spent greater than 15 minutes for services, including [id number] encounter with the patient, discussion of the case, plan of care, and exam; and qkxdoks-ev-tcdu activities, such as reviewing pertinent eap consultant documentation, recent therapy notes, laboratory and radiology studies, and discussion of case with care team including physician, nursing, family caseworker, and therapists. More than 50 % of time was spent on patient/family counseling or coordination ofcare. Decision Plan: I completed a substantive portion of this encounter, the medical decision makingportion of this note in its entirety, including Allied health note review, nursing note review, eap consultant note review, discussion with nursing and case management, and more than 50% of my time was spent on counseling and coordination of care, time spent 25 minutes Patient was personally seen by me, Dr. Zaman, on the day of encounter, reviewed the history and the relevant portions of the chart, including current orders, allied health and eap consultant notes, labs/imaging and performed smith elements of exam and I formulated the plan of care and facilitated the medical decision making. Documented By: Stiven Zaman MD 06/22/22 1133 Signed By: <Electronically signed by Stiven Zaman MD> 06/23/225 <Electronically signed by KIM Crowell> 06/22/22 1145 [facility] Work Phone: 1(122) 354-563401-10-2023 Progress note Author Stiven Zaman [facility] June 23, 2022 9:25pm Note Date/Time June 23, 2022 1 2:28pm [facility] [address] [place] [address] Physiatry(Rehab) Progress Note Signed Patient: Abdirahman Gomez MR#: [id number] : 1940 Acct:[id number] Age/Sex: 81 / F Adm Date: 3 Loc: Room: 3O1496-3 Type: ADM IN Attending Dr: Stiven Zaman MD Copies to: ~ <Lori Crowell APRN - Last Filed: 06/23/22 12:28> Date of Service: 06/23/2022 Subjective <Lori Crowell APRN - [place] Filed: 06/23/22 12:28> Subjective Narrative: Ms. Gomez is a 81 year old female with history of CAD status post CABG, remote, atrial fibrillation, pacemaker placed, admitted to the rehabilitation unit with functional decline secondary to bilateral hemisphere cardioembolic stroke, right parietal lobe, left occipital lobe. She presented to outside facility around [place] with several days of generalized weakness. Her troponins were elevated. She was transferred to [facility]. Cardiology was consulted, did not feel acute ischemic event. TTE with akinesis of inferior wall of left ventricle with EF of 50 to 55%. MRI with ischemic infarcts as above. MRI unremarkable. Carotid duplex 50-69% stenosis in L neck, possible occlusion of R vertebral artery due to poor visualization.? Medical therapy recommended She noticed some bright red blood in the stool on admission to [place], consistent with lower GI bleed. She was cleared to remain on Eliquis. Etiologylikely mild diverticular bleed. Interval history: She is doing good this morning, a little fatigued from PT session earlier but feels generally well. No reports of pain or discomfort. Her vital signs are normal limits. Continues to progress in therapy. FI with daughter Marti on , D/C home thereafter. Current lab results reviewed with patient. Review of Systems <Lori Crowell APRN - Last Filed: 06/23/22 12:28> Review of Systems All other systems reviewed & are negative unless noted below or in HPI Constitutional Constitutional: Reports system reviewed and no additional complaints, except as documented Eyes Eyes: Reports system reviewed and no additional complaints, except as documented ENT Ears, Nose, Mouth, and Throat: Reports system reviewed and no additional complaints, except as documented Cardiovascular Cardiovascular: Reports system reviewed and no additional complaints, except as documented Respiratory Respiratory: Reports system reviewed and no additional complaints, except as documented Gastrointestinal Gastrointestinal: Reports system reviewed and no additional complaints, except as documented Genitourinary Genitourinary: Reports system reviewed and no additional complaints, except as documented Musculoskeletal Musculoskeletal: Reports system reviewed and no additional complaints, except asdocumented and Reports abnormal gait Integumentary/Breasts Skin/Breast: Reports system reviewed and no additional complaints, except as documented Neurologic Neurologic: Reports system reviewed and no additional complaints, except as documented and Reports abnormal gait Psychiatric Psychiatric: Reports system reviewed and no additional complaints, except as documented Endocrine Endocrine: Reports system reviewed and no additional complaints, except as documented Hematologic/Lymphatic Hematologic/Lymphatic: Reports system reviewed and no additional complaints, except as documented Allergic/Immunologic Allergic/Immunologic: Reports system reviewed and no additional complaints, except as documented Exam <Lori Crowell APRN - Last Filed: 06/23/22 12:28> Physical Exam Vital Signs: Temp Pulse Resp BP Pulse Ox O2 Del Method 98.2 F 73 18 137/68 96 Room Air 06/23/22 10:07 06/23/22 10:07 06/23/22 10:07 06/23/22 10:07 06/23/22 10:07 06/23/22 10:07 Narrative: Const General: cooperative, comfortable, no acute distress, well developed, well groomed Nutritional Appearance: Overweight Orientation: alert, awake and oriented x3 Limitations: None HEENT Head: normal to inspection, normocephalic and atraumatic Ears: hearing grossly normal bilaterally Nose: external nose normal Face and sinus: normal facial exam Eyes General: appearance normal, both eyes and all related structures Pupils: PERRL EOM: EOM intact bilaterally Neck Neck: normal visual inspection, full ROM, no lymphadenopathy and trachea midline Neck mass: No Chest Chest palpation & inspection: normal inspection of the chest Resp Effort & Inspection: normal respiratory effort, able to speak in complete sentences, symmetric chest movement and no cough Auscultation: clear to auscultation bilaterally Cardio Jugular venous pressure: no JVD Rhythm: Regular rhythm and rate GI: Inspection: normal to inspection Palpation: soft, no hepatosplenomegaly and nontender Auscultation: normal bowel sounds Musc Cervical Spine: normal cervical lordosis and cervical ROM normal Thoracic/Lumbar Spine: thoraco-lumbar ROM normal Skin General: no rashes or lesions noted Neuro General: patient alert, oriented x3, moves all extremities. Residual left-sidedweakness in upper and lower extremity. 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9 Guthrie % (Auto) 8.4 Eos % (Auto) 3.2 Baso % (Auto) 0.8 Nucleat RBC Rel Count 0.1 Neut # (Auto) 4.5 Lymph # (Auto) 2.6 Guthrie # (Auto) 0.7 Eos # (Auto) 0.3 Baso # (Auto) 0.1 PHA Creatinine Clear 47.21 Sodium 135 L Potassium 3.8 Chloride 102 Carbon Dioxide 20.7 L Anion Gap 16.1 H BUN 10 Creatinine 0.84 Est GFR ( Amer) > 60 Est GFR (Non-Af Amer) > 60 Glucose 104 H Calcium 9.4 Medications and Allergies Allergies and Active Meds: Allergies ciprofloxacin Allergy (Severe, Verified 06/09/22 04:31) Redness of Skin codeine Allergy (Mild, Verified 06/09/22 04:31) Itching Active Medications Generic Name Dose Route Start Last Admin Trade Name Darrin PRN Reason Stop Dose Admin Acetaminophen 500 mg 06/16/22 18:36 06/23/22 10:01 Acetaminophen 500 Mg Tablet PO 06/16/23 18:35 500 mg Q4H PRN Administration Pain Hydrocodone Bitart/Acetaminophen 1 tab 06/19/22 15:20 06/22/22 20:54 Hydrocodone/Acetaminophen 5-325 Mg Tablet PO 1 tab BID PRN Administration Pain Al Hydrox/Mg Hydrox/Simethicone 30 ml 06/16/22 18:36 Mag Hydrox/Al Hydrox/Simeth 30 Ml Udc PO 06/16/23 18:35 Q4H PRN Indigestion Amlodipine Besylate 10 mg 06/16/22 22:00 06/22/22 20:54 Amlodipine 10 Mg Tablet PO 06/16/23 21:59 10 mg HS JAK Administration Apixaban 5 mg 06/16/22 21:00 06/23/22 10:01 Apixaban 5 Mg Tablet PO 06/16/23 20:59 5 mg BID JAK Administration Atorvastatin Calcium 80 mg 06/16/22 22:00 06/22/22 20:54 Atorvastatin 80 Mg Tablet PO 06/16/23 21:59 80 mg HS JAK Administration Bisacodyl 10 mg 06/16/22 18:36 Bisacodyl 10 Mg Supp.Rect NV 06/16/23 18:35 DAILY PRN Constipation Carvedilol 12.5 mg 06/16/22 21:00 06/23/22 10:00 Carvedilol 12.5 Mg Tablet PO 06/16/23 20:59 12.5 mg BID JAK Administration Docusate Sodium 100 mg 06/16/22 18:36 Docusate 100 Mg Capsule PO 06/16/23 18:35 BID PRN Constipation Docusate Sodium 283 mg 06/16/22 18:36 Docusate Enema 283 Mg/5 Ml Enema NV 06/16/23 18:35 DAILY PRN Constipation Furosemide 20 mg 06/17/22 09:00 06/23/22 10:01 Furosemide 20 Mg Tablet PO 06/17/23 08:59 20 mg DAILY JAK Administration Isosorbide Mononitrate 60 mg 06/17/22 09:00 06/23/22 10:00 Isosorbide Mononitrate 24hr Er 60 Mg Tab.Er.24h PO 06/17/23 08:59 60 mg DAILY JAK Administration Lactulose 30 gm 06/16/22 18:36 Lactulose 20 Gm/30 Ml Udc PO 06/16/23 18:35 DAILY PRN Constipation Melatonin 5 mg 06/16/22 18:35 06/22/22 20:54 Melatonin 5 Mg Tablet PO 06/16/23 18:34 5 mg QHS PRN Administration Insomnia Metformin HCl 500 mg 06/17/22 09:00 06/23/22 10:01 Metformin 500 Mg Tablet PO 06/17/23 08:59 500 mg DAILY JAK Administration Montelukast Sodium 10 mg 06/16/22 22:00 06/22/22 20:54 Montelukast 10 Mg Tablet PO 06/16/23 21:59 10 mg HS JAK Administration Omeprazole 40 mg 06/17/22 09:00 06/23/22 10:01 Omeprazole 20 Mg Capsule.Dr PO 06/17/23 08:59 40 mg DAILY JAK Administration Ondansetron HCl 4 mg 06/19/22 21:19 06/20/22 20:40 Ondansetron Odt 4 Mg Tab.Rapdis PO 06/19/23 21:18 4 mg Q6HR PRN Administration Nausea And Vomiting Polyethylene Glycol 17 gm 06/17/22 09:00 06/23/22 10:00 Polyethylene Glycol 3350 17 Gm Powd.Pack PO 06/17/23 08:59 17 gm DAILY JAK Administration Potassium Chloride 20 meq 06/17/22 09:00 06/23/22 10:01 Potassium Chloride Er 20 Meq Tab.Er.Prt PO 06/17/23 08:59 20 meq DAILY JAK Administration Pramipexole Dihydrochloride 0.5 mg 06/16/22 22:00 06/22/22 20:54 Pramipexole 0.5 Mg Tablet PO 06/16/23 21:59 0.5 mg HS JAK Administration Psyllium Hydrophilic Mucilloid 1 packet 06/16/22 21:00 06/23/22 10:00 Psyllium Husk 3.4 Gm Packet PO 06/16/23 20:59 1 packet BID JAK Administration Sennosides 2 tab 06/16/22 21:00 06/23/22 10:00 Sennosides 8.6 Mg Tablet PO 06/16/23 20:59 2 tab BID JAK Administration Sennosides 2 tab 06/17/22 12:00 Sennosides 8.6 Mg Tablet PO 06/17/23 11:59 DAILY@12 PRN If no BM in 2 days Sodium Chloride 0 ml 06/16/22 18:36 Sodium Chloride 0.9 % 10 Ml Syringe IV-PUSH 06/16/23 18:35 PRN PRN Flush Tizanidine HCl 4 mg 06/16/22 18:35 06/22/22 20:54 Tizanidine 4 Mg Tablet PO 06/16/23 18:34 4 mg BID PRN Administration Pain Valsartan 40 mg 06/18/22 09:00 06/23/22 10:00 Valsartan 40 Mg Tablet PO 06/18/23 08:59 40 mg DAILY JAK Administration Vitamin D 125 mcg 06/17/22 09:00 06/23/22 10:00 Cholecalciferol 125 Mcg (5,000 Units) Tablet PO 06/17/23 08:59 125 mcg DAILY JAK Administration Assessment/Plan <Lori Crowell APRN - Last Filed: 06/23/22 12:28> Assessment/Plan (1) Paroxysmal atrial fibrillation: Code(s): I48.0 - Paroxysmal atrial fibrillation Status: Acute (2) Embolic stroke: Code(s): I63.9 - Cerebral infarction, unspecified Status: Acute (3) Elevated troponin: Code(s): R77.8 - Other specified abnormalities of plasma proteins Status: Acute (4) Hypertension: Code(s): I10 - Essential (primary) hypertension Status: Acute (5) Pacemaker: Code(s): Z95.0 - Presence of cardiac pacemaker Status: Acute (6) Chronic pain: Code(s): G89.29 - Other chronic pain Status: Acute (7) Anxiety: Code(s): F41.9 - Anxiety disorder, unspecified Status: Acute (8) Impaired mobility and activities of daily living: Code(s): Z74.09 - Other reduced mobility; Z78.9 - Other specified health status Status: Acute Plan 81-year-old female with medical history as above including CAD status post CABG,remotely, paroxysmal atrial fibrillation and pacemaker placement admitted to therehabilitation unit with 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 * CBC and BMP reviewed, unremarkable * Working with therapy. * FI with daughter tomorrow, then D/C home soon. Hospitalist to assist with management of comorbid medical conditions Pain control: Continue current medications. Consider d/c tizanidine with h/o afib. Chronic pain received [place] 5/[address] Faustin. Will change from q4h totwice daily as at home. OARRS reviewed. Bowel and bladder: Continent. Skin: No pressure ulcers Sleep: Optimize sleep / wake. DVT prophylaxis: Covered with Eliquis. Functional status: Ambulatory. Needs assist. Left hemiplegia. Impaired endurance. Discharge planning: Home Wednesday or . I spent greater than 15 minutes for services, including [id number] encounter with the patient, discussion of the case, plan of care, and exam; and [id number] activities, such as reviewing pertinent eap consultant documentation, recent therapy notes, laboratory and radiology studies, and discussion of case with care team including physician, nursing, family caseworker, and therapists. More than 50 % of time was spent on patient/family counseling or coordination ofcare. 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 * CBC and BMP reviewed, unremarkable * Working with therapy. * FI with daughter tomorrow, then D/C home soon. Hospitalist to assist with management of comorbid medical conditions Pain control: Continue current medications. Consider d/c tizanidine with h/o afib. Chronic pain received [place] 5/[address] Faustin. Will change from q4h to twice daily as at home. OARRS reviewed. Bowel and bladder: Continent. Skin: No pressure ulcers Sleep: Optimize sleep / wake. DVT prophylaxis: Covered with Eliquis. Functional status: Ambulatory. Needs assist. Left hemiplegia resolved. Impairedendurance. Discharge planning: Home Wednesday or , pending FI. I spent greater than 15 minutes for services, including [id number] encounter with the patient, discussion of the case, plan of care, and exam; and [id number] activities, such as reviewing pertinent eap consultant documentation, recent therapy notes, laboratory and radiology studies, and discussion of case with care team including physician, nursing, family caseworker, and therapists. More than 50 % of time was spent on patient/family counseling or coordination ofcare. Decision Plan: I completed a substantive portion of this encounter, the medical decision makingportion of this note in its entirety, including Allied health note review, nursing note review, eap consultant note review, discussion with nursing and case management, and more than 50% of my time was spent on counseling and coordination of care, time spent 25 minutes Patient was personally seen by me, Dr. Zaman, on the day of encounter, reviewed the history and the relevant portions of the chart, including current orders, allied health and eap consultant notes, labs/imaging and performed smith elements of exam and I formulated the plan of care and facilitated the medical decision making. Documented By: Stiven Zaman MD 06/23/221220 Signed By: <Electronically signed by Stiven Zaman MD> 06/23/222124 <Electronically signed by KIM Crowell> 06/23/228 [facility] Work Phone: 1(950) 744-286601-06-2023 Progress note Author Stiven Zaman [facility] June 19, 2022 3:19pm Note Date/Time June 19, 2022 3: 19pm [facility] [address] [place] [address] Physiatry(Rehab) Progress Note Signed Patient: Abdirahman Gomez MR#: [id number] : 1940 Acct:[id number] Age/Sex: 81 / F Adm Date: 3 Loc: Room: [address] [place] [address] Type: ADM IN Attending Dr: Stiven Zaman MD Copies to: ~ Date of Service: 06/19/2022 Subjective Subjective Narrative: Ms. Gomez is a 81 year old female with history of CAD status post CABG, remote, atrial fibrillation, pacemaker placed, admitted to the rehabilitation unit with functional decline secondary to bilateral hemisphere cardioembolic stroke, right parietal lobe, left occipital lobe. She presented to outside facility around [place] with several days of generalized weakness. Her troponins were elevated. She was transferred to [facility]. Cardiology was consulted, did not feel acute ischemic event. TTE with akinesis of inferior wall of left ventricle with EF of 50 to 55%. MRI with ischemic infarcts as above. MRI unremarkable. Carotid duplex 50-69% stenosis in L neck, possible occlusion of R vertebral artery due to poor visualization.? Medical therapy recommended She noticed some bright red blood in the stool on admission to [place], consistent with lower GI bleed. She was cleared to remain on Eliquis. Etiologylikely mild diverticular bleed. Interval history: Patient and daughter requesting left hip x-ray. They are unsure if it was injured after a fall at home. She does not endorse any significant change in the chronic pain that she has there. Otherwise she is doing well. Ambulatory. Vitals are stable. Progressing appropriately towards functional goals. Chronic conditions stable. Review of Systems Review of Systems All other systems reviewed & are negative unless noted below or in HPI Exam Physical Exam Vital Signs: Temp Pulse Resp BP Pulse Ox O2 Del Method 97.8 F 73 17 132/66 94 L Room Air 06/19/22 05:00 06/19/22 05:00 06/19/22 05:00 06/19/22 05:00 06/19/22 05:00 06/19/22 08:30 Narrative: General: cooperative, comfortable HENMT Head: normal to inspection Eyes General: appearance normal, both eyes and all related structures Neck Neck: normal visual inspection, no lymphadenopathy Resp Effort & Inspection: normal respiratory effort Auscultation: clear to auscultation bilaterally Cardio Rate: regular rate Rhythm: regular rhythm Heart Sounds: S1 normal, S2 normal GI Inspection: normal to inspection Auscultation: normal bowel sounds Neuro Cranial Nerves: CN's II-XI intact bilaterally Cognition: normal cognition Speech: speech normal Motor: strength 5/5 throughout except, left hemiplegia 4+ out of 5 Sensory Exam: Impaired sensation stocking distribution. Premorbid. Plantar Reflexes: Downgoing Deep Tendon Reflexes DTR Comments: 1+ and symmetric Extrem General: normal to inspection, no clubbing, cyanosis or edema Psych Mood: normal affect Affect: normal affect Endurance fair Objective Labs 06/17/22 06:15 06/17/22 06:15 Labs: Laboratory Results - last 24 hr 06/18/22 06/19/22 16:16 06:02 POC Glucose 105 97 POC Glucose Comment Glu2: cleaned meter Medications and Allergies Allergies and Active Meds: Allergies ciprofloxacin Allergy (Severe, Verified 06/09/22 04:31) Redness of Skin codeine Allergy (Mild, Verified 06/09/22 04:31) Itching Active Medications Generic Name Dose Route Start Last Admin Trade Name Freq PRN Reason Stop Dose Admin Acetaminophen 500 mg 06/16/22 18:36 Acetaminophen 500 Mg Tablet PO 06/16/23 18:35 Q4H PRN Pain Hydrocodone Bitart/Acetaminophen 1 tab 06/16/22 18:54 06/19/22 13:09 Hydrocodone/Acetaminophen 5-325 Mg Tablet PO 1 tab Q4H PRN Administration Pain Al Hydrox/Mg Hydrox/Simethicone 30 ml 06/16/22 18:36 Mag Hydrox/Al Hydrox/Simeth 30 Ml Udc PO 06/16/23 18:35 Q4H PRN Indigestion Amlodipine Besylate 10 mg 06/16/22 22:00 06/18/22 21:12 Amlodipine 10 Mg Tablet PO 06/16/23 21:59 10 mg HS JAK Administration Apixaban 5 mg 06/16/22 21:00 06/19/22 08:26 Apixaban 5 Mg Tablet PO 06/16/23 20:59 5 mg BID JAK Administration Atorvastatin Calcium 80 mg 06/16/22 22:00 06/18/22 21:12 Atorvastatin 80 Mg Tablet PO 06/16/23 21:59 80 mg HS JAK Administration Bisacodyl 10 mg 06/16/22 18:36 Bisacodyl 10 Mg Supp.Rect NV 06/16/23 18:35 DAILY PRN Constipation Carvedilol 12.5 mg 06/16/22 21:00 06/19/22 08:26 Carvedilol 12.5 Mg Tablet PO 06/16/23 20:59 12.5 mg BID JAK Administration Docusate Sodium 100 mg 06/16/22 18:36 Docusate 100 Mg Capsule PO 06/16/23 18:35 BID PRN Constipation Docusate Sodium 283 mg 06/16/22 18:36 Docusate Enema 283 Mg/5 Ml Enema NV 06/16/23 18:35 DAILY PRN Constipation Furosemide 20 mg 06/17/22 09:00 06/19/22 08:26 Furosemide 20 Mg Tablet PO 06/17/23 08:59 20 mg DAILY JAK Administration Isosorbide Mononitrate 60 mg 06/17/22 09:00 06/19/22 08:26 Isosorbide Mononitrate 24hr Er 60 Mg Tab.Er.24h PO 06/17/23 08:59 60 mg DAILY JAK Administration Lactulose 30 gm 06/16/22 18:36 Lactulose 20 Gm/30 Ml Udc PO 06/16/23 18:35 DAILY PRN Constipation Melatonin 5 mg 06/16/22 18:35 06/18/22 21:12 Melatonin 5 Mg Tablet PO 06/16/23 18:34 5 mg QHS PRN Administration Insomnia Metformin HCl 500 mg 06/17/22 09:00 06/19/22 08:26 Metformin 500 Mg Tablet PO 06/17/23 08:59 500 mg DAILY JAK Administration Montelukast Sodium 10 mg 06/16/22 22:00 06/18/22 21:12 Montelukast 10 Mg Tablet PO 06/16/23 21:59 10 mg HS JAK Administration Omeprazole 40 mg 06/17/22 09:00 06/19/22 08:26 Omeprazole 20 Mg Capsule.Dr PO 06/17/23 08:59 40 mg DAILY JAK Administration Polyethylene Glycol 17 gm 06/17/22 09:00 06/19/22 08:25 Polyethylene Glycol 3350 17 Gm Powd.Pack PO 06/17/23 08:59 17 gm DAILY JAK Administration Potassium Chloride 20 meq 06/17/22 09:00 06/19/22 08:26 Potassium Chloride Er 20 Meq Tab.Er.Prt PO 06/17/23 08:59 20 meq DAILY JAK Administration Pramipexole Dihydrochloride 0.5 mg 06/16/22 22:00 06/18/22 21:12 Pramipexole 0.5 Mg Tablet PO 06/16/23 21:59 0.5 mg HS JAK Administration Psyllium Hydrophilic Mucilloid 1 packet 06/16/22 21:00 06/19/22 08:26 Psyllium Husk 3.4 Gm Packet PO 06/16/23 20:59 1 packet BID JAK Administration Sennosides 2 tab 06/16/22 21:00 06/19/22 08:26 Sennosides 8.6 Mg Tablet PO 06/16/23 20:59 2 tab BID JAK Administration Sennosides 2 tab 06/17/22 12:00 Sennosides 8.6 Mg Tablet PO 06/17/23 11:59 DAILY@12 PRN If no BM in 2 days Sodium Chloride 0 ml 06/16/22 18:36 Sodium Chloride 0.9 % 10 Ml Syringe IV-PUSH 06/16/23 18:35 PRN PRN Flush Tizanidine HCl 4 mg 06/16/22 18:35 06/18/22 21:12 Tizanidine 4 Mg Tablet PO 06/16/23 18:34 4 mg BID PRN Administration Pain Valsartan 40 mg 06/18/22 09:00 06/19/22 08:26 Valsartan 40 Mg Tablet PO 06/18/23 08:59 40 mg DAILY JAK Administration Vitamin D 125 mcg 06/17/22 09:00 01/06/23 08:26 Cholecalciferol 125 Mcg (5,000 Units) Tablet PO 06/17/23 08:59 125 mcg DAILY JAK Administration Assessment/Plan Assessment/Plan (1) Paroxysmal atrial fibrillation: Code(s): I48.0 - Paroxysmal atrial fibrillation Status: Acute (2) Embolic stroke: Code(s): I63.9 - Cerebral infarction, unspecified Status: Acute (3) Elevated troponin: Code(s): R77.8 - Other specified abnormalities of plasma proteins Status: Acute (4) Hypertension: Code(s): I10 - Essential (primary) hypertension Status: Acute (5) Pacemaker: Code(s): Z95.0 - Presence of cardiac pacemaker Status: Acute (6) Chronic pain: Code(s): G89.29 - Other chronic pain Status: Acute (7) Anxiety: Code(s): F41.9 - Anxiety disorder, unspecified Status: Acute (8) Impaired mobility and activities of daily living: Code(s): Z74.09 - Other reduced mobility; Z78.9 - Other specified health status Status: Acute Plan 81-year-old female with medical history as above including CAD status post CABG,remotely, paroxysmal atrial fibrillation and pacemaker placement admitted to therehabilitation unit with 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 Blood pressure controlled with medication additions. Left hip x-ray reviewed, unremarkable. Hospitalist to assist with management of comorbid medical conditions Pain control: Continue current medications. Consider d/c tizanidine with h/o afib. Chronic pain received [place] 5/[address] Faustin. Will change from q4h to twice daily as at home. OARRS reviewed. Bowel and bladder: Continent. Skin: No pressure ulcers Sleep: Optimize sleep / wake. DVT prophylaxis: Covered with Eliquis. Functional status: Ambulatory. Needs assist. Left hemiplegia. Impaired endurance. Discharge planning: Home 7-10 days. Plan: I completed a substantive portion of this encounter, the medical decision makingportion of this note in its entirety, including Allied health note review, nursing note review, eap consultant note review, discussion with nursing and case management, and more than 50% of my time was spent on counseling and coordination of care, time spent 35 minutes Patient was personally seen by me, Dr. Zaman, on the day of encounter, reviewed the history and the relevant portions of the chart, including current orders, allied health and eap consultant notes, labs/imaging and performed smith elements of exam and I formulated the plan of care and facilitated the medical decision making. Documented By: Stiven Zaman MD 06/19/221515 Signed By: <Electronically signed by Stiven Zaman MD> 06/19/22 [id number] [facility] Work Phone: 1(325) 422-605601-05-2023 Progress note Author Stiven Zaman [facility] June 18, 2022 12:49pm Note Date/Time June 18, 2022 12 :49pm [facility] [address] [place] [address] Physiatry(Rehab) Progress Note Signed Patient: Abdirahman Gomez MR#: [id number] : 1940 Acct:[id number] Age/Sex: 81 / F Adm Date: 3 Loc: Room: [address] [place] [address] Type: ADM IN Attending Dr: Stiven Zaman MD Copies to: ~ Date of Service: 06/18/2022 Subjective Subjective Narrative: Ms. Gomez is a 81 year old female with history of CAD status post CABG, remote, atrial fibrillation, pacemaker placed, admitted to the rehabilitation unit with functional decline secondary to bilateral hemisphere cardioembolic stroke, right parietal lobe, left occipital lobe. She presented to outside facility around [place] with several days of generalized weakness. Her troponins were elevated. She was transferred to [facility]. Cardiology was consulted, did not feel acute ischemic event. TTE with akinesis of inferior wall of left ventricle with EF of 50 to 55%. MRI with ischemic infarcts as above. MRI unremarkable. Carotid duplex 50-69% stenosis in L neck, possible occlusion of R vertebral artery due to poor visualization.? Medical therapy recommended She noticed some bright red blood in the stool on admission to [place], consistent with lower GI bleed. She was cleared to remain on Eliquis. Etiologylikely mild diverticular bleed. Interval history: Continues to improve. Her biggest concern was actually her cardiac status. I did try to provide her with some education and reassurance about what happened. She continues to endorse some left wrist and hand weakness and paresthesias. Otherwise improving with therapy. Chronic conditions stable. Review of Systems Review of Systems All other systems reviewed & are negative unless noted below or in HPI Exam Physical Exam Vital Signs: Temp Pulse Resp BP Pulse Ox O2 Del Method 97.4 F L 72 16 131/72 94 L Room Air 06/18/22 05:00 06/18/22 05:00 06/18/22 05:00 06/18/22 07:58 06/18/22 05:00 06/18/22 05:00 Narrative: General: cooperative, comfortable HENMT Head: normal to inspection Eyes General: appearance normal, both eyes and all related structures Neck Neck: normal visual inspection, no lymphadenopathy Resp Effort & Inspection: normal respiratory effort Auscultation: clear to auscultation bilaterally Cardio Rate: regular rate Rhythm: regular rhythm Heart Sounds: S1 normal, S2 normal GI Inspection: normal to inspection Auscultation: normal bowel sounds Neuro Cranial Nerves: CN's II-XI intact bilaterally Cognition: normal cognition Speech: speech normal Motor: strength 5/5 throughout except, left hemiplegia 4+ out of 5 Sensory Exam: Impaired sensation stocking distribution. Premorbid. Plantar Reflexes: Downgoing Deep Tendon Reflexes DTR Comments: 1+ and symmetric Extrem General: normal to inspection, no clubbing, cyanosis or edema Psych Mood: normal affect Affect: normal affect Endurance fair Objective Labs 06/17/22 06:15 06/17/22 06:15 Labs: Laboratory Results - last 24 hr 06/17/22 06/18/22 16:33 06:48 POC Glucose 121 107 POC Glucose Comment Cleaned meter Medications and Allergies Allergies and Active Meds: Allergies ciprofloxacin Allergy (Severe, Verified 06/09/22 04:31) Redness of Skin codeine Allergy (Mild, Verified 06/09/22 04:31) Itching Active Medications Generic Name Dose Route Start Last Admin Trade Name Freq PRN Reason Stop Dose Admin Acetaminophen 500 mg 06/16/22 18:36 Acetaminophen 500 Mg Tablet PO 06/16/23 18:35 Q4H PRN Pain Hydrocodone Bitart/Acetaminophen 1 tab 06/16/22 18:54 06/18/22 06:46 Hydrocodone/Acetaminophen 5-325 Mg Tablet PO 1 tab Q4H PRN Administration Pain Al Hydrox/Mg Hydrox/Simethicone 30 ml 06/16/22 18:36 Mag Hydrox/Al Hydrox/Simeth 30 Ml Udc PO 06/16/23 18:35 Q4H PRN Indigestion Amlodipine Besylate 10 mg 06/16/22 22:00 06/17/22 21:16 Amlodipine 10 Mg Tablet PO 06/16/23 21:59 10 mg HS JAK Administration Apixaban 5 mg 06/16/22 21:00 06/18/22 07:49 Apixaban 5 Mg Tablet PO 06/16/23 20:59 5 mg BID JAK Administration Atorvastatin Calcium 80 mg 06/16/22 22:00 06/17/22 21:17 Atorvastatin 80 Mg Tablet PO 06/16/23 21:59 80 mg HS JAK Administration Bisacodyl 10 mg 06/16/22 18:36 Bisacodyl 10 Mg Supp.Rect NV 06/16/23 18:35 DAILY PRN Constipation Carvedilol 12.5 mg 06/16/22 21:00 06/18/22 07:49 Carvedilol 12.5 Mg Tablet PO 06/16/23 20:59 12.5 mg BID JAK Administration Docusate Sodium 100 mg 06/16/22 18:36 Docusate 100 Mg Capsule PO 06/16/23 18:35 BID PRN Constipation Docusate Sodium 283 mg 06/16/22 18:36 Docusate Enema 283 Mg/5 Ml Enema NV 06/16/23 18:35 DAILY PRN Constipation Furosemide 20 mg 06/17/22 09:00 06/18/22 07:48 Furosemide 20 Mg Tablet PO 06/17/23 08:59 20 mg DAILY JAK Administration Isosorbide Mononitrate 60 mg 06/17/22 09:00 06/18/22 07:49 Isosorbide Mononitrate 24hr Er 60 Mg Tab.Er.24h PO 06/17/23 08:59 60 mg DAILY JAK Administration Lactulose 30 gm 06/16/22 18:36 Lactulose 20 Gm/30 Ml Udc PO 06/16/23 18:35 DAILY PRN Constipation Melatonin 5 mg 06/16/22 18:35 06/17/22 21:17 Melatonin 5 Mg Tablet PO 06/16/23 18:34 5 mg QHS PRN Administration Insomnia Metformin HCl 500 mg 06/17/22 09:00 06/18/22 07:48 Metformin 500 Mg Tablet PO 06/17/23 08:59 500 mg DAILY JAK Administration Montelukast Sodium 10 mg 06/16/22 22:00 06/17/22 21:16 Montelukast 10 Mg Tablet PO 06/16/23 21:59 10 mg HS JAK Administration Omeprazole 40 mg 06/17/22 09:00 06/18/22 07:48 Omeprazole 20 Mg Capsule.Dr PO 06/17/23 08:59 40 mg DAILY JAK Administration Polyethylene Glycol 17 gm 06/17/22 09:00 06/18/22 12:43 Polyethylene Glycol 3350 17 Gm Powd.Pack PO 06/17/23 08:59 Not Given DAILY JAK Potassium Chloride 20 meq 06/17/22 09:00 06/18/22 07:49 Potassium Chloride Er 20 Meq Tab.Er.Prt PO 06/17/23 08:59 20 meq DAILY JAK Administration Pramipexole Dihydrochloride 0.5 mg 06/16/22 22:00 06/17/22 21:16 Pramipexole 0.5 Mg Tablet PO 06/16/23 21:59 0.5 mg HS JAK Administration Psyllium Hydrophilic Mucilloid 1 packet 06/16/22 21:00 06/18/22 07:50 Psyllium Husk 3.4 Gm Packet PO 06/16/23 20:59 1 packet BID JAK Administration Sennosides 2 tab 06/16/22 21:00 06/18/22 12:42 Sennosides 8.6 Mg Tablet PO 06/16/23 20:59 Not Given BID JAK Sennosides 2 tab 06/17/22 12:00 Sennosides 8.6 Mg Tablet PO 06/17/23 11:59 DAILY@12 PRN If no BM in 2 days Sodium Chloride 0 ml 06/16/22 18:36 Sodium Chloride 0.9 % 10 Ml Syringe IV-PUSH 06/16/23 18:35 PRN PRN Flush Tizanidine HCl 4 mg 06/16/22 18:35 06/17/22 21:16 Tizanidine 4 Mg Tablet PO 06/16/23 18:34 4 mg BID PRN Administration Pain Valsartan 40 mg 06/18/22 09:00 06/18/22 07:50 Valsartan 40 Mg Tablet PO 06/18/23 08:59 40 mg DAILY JAK Administration Vitamin D 125 mcg 06/17/22 09:00 06/18/22 07:49 Cholecalciferol 125 Mcg (5,000 Units) Tablet PO 06/17/23 08:59 125 mcg DAILY JAK Administration Assessment/Plan Assessment/Plan (1) Paroxysmal atrial fibrillation: Code(s): I48.0 - Paroxysmal atrial fibrillation Status: Acute (2) Embolic stroke: Code(s): I63.9 - Cerebral infarction, unspecified Status: Acute (3) Elevated troponin: Code(s): R77.8 - Other specified abnormalities of plasma proteins Status: Acute (4) Hypertension: Code(s): I10 - Essential (primary) hypertension Status: Acute (5) Pacemaker: Code(s): Z95.0 - Presence of cardiac pacemaker Status: Acute (6) Chronic pain: Code(s): G89.29 - Other chronic pain Status: Acute (7) Anxiety: Code(s): F41.9 - Anxiety disorder, unspecified Status: Acute (8) Impaired mobility and activities of daily living: Code(s): Z74.09 - Other reduced mobility; Z78.9 - Other specified health status Status: Acute Plan 81-year-old female with medical history as above including CAD status post CABG,remotely, paroxysmal atrial fibrillation and pacemaker placement admitted to therehabilitation unit with 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 Continue management as ordered. Okay to resume Lasix, Imdur, metformin. She had not received any of these on acute care. We will watch her labs and blood pressure. Confirmed with hospitalist. Continue secondary stroke prevention with Eliquis. Minimal left hemiplegia. Overall improving. H/o chronic pain / anxiety, on norco/lorazepam at baseline. Will follow. OARRS reviewed. Hospitalist to assist with management of comorbid medical conditions Pain control: Continue current medications. Consider d/c tizanidine with h/o afib. Chronic pain received [place] 5/[address] Faustin. Will change from q4h to twice daily as at home. OARRS reviewed. Bowel and bladder: Continent. Skin: No pressure ulcers Sleep: Optimize sleep / wake. DVT prophylaxis: Covered with Eliquis. Functional status: Ambulatory. Needs assist. Left hemiplegia. Impaired endurance. Discharge planning: Home 7-10 days. Plan: I completed a substantive portion of this encounter, the medical decision makingportion of this note in its entirety, including Allied health note review, nursing note review, eap consultant note review, discussion with nursing and case management, and more than 50% of my time was spent on counseling and coordination of care, time spent 30 minutes Patient was personally seen by me, Dr. Zaman, on the day of encounter, reviewed the history and the relevant portions of the chart, including current orders, allied health and eap consultant notes, labs/imaging and performed smith elements of exam and I formulated the plan of care and facilitated the medical decision making. Documented By: Stiven Zaman MD 06/18/221245 Signed By: <Electronically signed by Stiven Zaman MD> 06/18/22 1249 [facility] Work Phone: [phone] 213-766201-04-2023 History and physical note Author Stiven Zaman [facility] June 17, 2022 3:54pm Note Date/Time June 17, 2022 9: 40am [facility] [address] [place] [address] Physiatry (Rehab) H&P Signed Patient: Abdirahman Gomez MR#: [id number] : 1940 Acct:[id number] Age/Sex: 81 / F Adm Date: 3 Loc: Room: 5K6331-9 Type: ADM IN Attending Dr: Stiven Zaman MD Copies to: MD Stiven Mccullough MD~ Date of Service: 06/17/2022 HPI The patient was seen and examined on: 06/17/22 History of Present Illness: Ms. Gomez is a 81 year old female with history of CAD status post CABG, remote, atrial fibrillation, pacemaker placed, admitted to the rehabilitation unit with functional decline secondary to bilateral hemisphere cardioembolic stroke, right parietal lobe, left occipital lobe. She presented to outside facility around [place] with several days of generalized weakness. Her troponins were elevated. She was transferred to [facility]. Cardiology was consulted, did not feel acute ischemic event. TTE with akinesis of inferior wall of left ventricle with EF of 50 to 55%. MRI with ischemic infarcts as above. MRI unremarkable. Carotid duplex 50-69% stenosis in L neck, possible occlusion of R vertebral artery due to poor visualization.? Medical therapy recommended She noticed some bright red blood in the stool on admission to [place], consistent with lower GI bleed. She was cleared to remain on Eliquis. Etiologylikely mild diverticular bleed. On evaluation today she feels generally well. 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 She does not appreciate any significant weakness at this point. PMFSH Vaccinated for COVID-19?: Yes Medical History A-fib Hypercholesteremia Hypertension MRSA (methicillin resistant staph aureus) culture positive Pacemaker Surgical History History of heart bypass surgery History of total left hip arthroplasty Hx of appendectomy Hx of breast reduction, elective Previous back surgery Social History Smoking Status: Never smoker Substance Use Type: None Review of Systems Review of Systems All other systems reviewed & are negative unless noted below or in HPI Meds Medications and Allergies Allergies ciprofloxacin Allergy (Severe, Verified 06/09/22 04:31) Redness of Skin codeine Allergy (Mild, Verified 06/09/22 04:31) Itching Home and Active Meds: Home Medications amlodipine 10 mg tablet 10 mg PO HS 06/09/22 [History Confirmed 06/16/22] carvedilol 12.5 mg tablet 12.5 mg PO BID 06/09/22 [History Confirmed 06/16/22] cholecalciferol (vitamin D3) 125 mcg (5,000 unit) tablet (Vitamin D3) 125 mcg PODAILY 06/09/22 [History Confirmed 06/16/22] furosemide 20 mg tablet 20 mg PO DAILY 06/09/22 [History Confirmed 06/16/22] hydrocodone 5 mg-acetaminophen 325 mg tablet 1 tab PO Q12H PRN Pain 06/09/22 [History Confirmed 06/09/22] isosorbide mononitrate 60 mg tablet,extended release 24 hr 60 mg PO DAILY 06/09/22 [History Confirmed 06/16/22] montelukast 10 mg tablet 10 mg PO HS 06/09/22 [History Confirmed 06/16/22] pramipexole 0.5 mg tablet 0.5 mg PO HS 06/09/22 [History Confirmed 06/16/22] tizanidine 4 mg tablet 4 mg PO BID PRN Pain 06/09/22 [History Confirmed 06/16/22] atorvastatin 80 mg tablet 80 mg PO HS #0 tabs 06/12/22 [Rx Confirmed 06/16/22] omeprazole 40 mg capsule,delayed release 40 mg PO DAILY 30 days #0 caps 06/12/22[Rx Confirmed 06/16/22] apixaban 5 mg tablet (Eliquis) 5 mg PO BID #0 tabs 06/14/22 [Rx Confirmed 06/16/22] melatonin 5 mg tablet 5 mg PO QHS PRN Insomnia #0 tabs 06/14/22 [Rx Confirmed 06/16/22] polyethylene glycol 3350 17 gram oral powder packet (Miralax) 17 g PO DAILY #0 ea 06/14/22 [Rx Confirmed 06/16/22] psyllium husk (aspartame) 3.4 gram oral powder packet (Metamucil Fiber Singles) 1 packet PO BID #0 ea 06/14/22 [Rx Confirmed 06/16/22] sennosides 8.6 mg tablet (Senna Lax) 2 tab PO BID #0 tabs 06/14/22 [Rx Confirmed 06/16/22] valsartan 40 mg tablet 40 mg PO BID #0 tabs 06/14/22 [Rx Confirmed 06/16/22] metformin 500 mg tablet 500 mg PO DAILY #30 tabs 06/16/22 [Rx Confirmed 06/16/22] potassium chloride 20 mEq tablet,extended release(part/cryst) (Klor-Con M) 20 meq PO DAILY #30 tabs 06/16/22 [Rx Confirmed 06/16/22] Active Medications Acetaminophen (Acetaminophen 500 Mg Tablet) 500 mg PO Q4H PRN PRN Reason: Pain Stop: 06/16/23 18:35 Hydrocodone Bitart/Acetaminophen (Hydrocodone/Acetaminophen 5-325 Mg Tablet) 1 tab PO Q4H PRN PRN Reason: Pain Last Admin: 06/17/22 08:35 Dose: 1 tab Al Hydrox/Mg Hydrox/Simethicone (Mag Hydrox/Al Hydrox/Simeth 30 Ml Udc) 30 ml PO Q4H PRN PRN Reason: Indigestion Stop: 06/16/23 18:35 Amlodipine Besylate (Amlodipine 10 Mg Tablet) 10 mg PO HS JAK Stop: 06/16/23 21:59 Last Admin: 06/16/22 21:18 Dose: 10 mg Apixaban (Apixaban 5 Mg Tablet) 5 mg PO BID JAK Stop: 06/16/23 20:59 Last Admin: 06/17/22 08:04 Dose: 5 mg Atorvastatin Calcium (Atorvastatin 80 Mg Tablet) 80 mg PO HS JAK Stop: 06/16/23 21:59 Last Admin: 06/16/22 21:18 Dose: 80 mg Bisacodyl (Bisacodyl 10 Mg Supp.Rect) 10 mg NV DAILY PRN PRN Reason: Constipation Stop: 06/16/23 18:35 Carvedilol (Carvedilol 12.5 Mg Tablet) 12.5 mg PO BID JAK Stop: 06/16/23 20:59 Last Admin: 06/17/22 08:04 Dose: 12.5 mg Docusate Sodium (Docusate 100 Mg Capsule) 100 mg PO BID PRN PRN Reason: Constipation Stop: 06/16/23 18:35 Docusate Sodium (Docusate Enema 283 Mg/5 Ml Enema) 283 mg NV DAILY PRN PRN Reason: Constipation Stop: 06/16/23 18:35 Furosemide (Furosemide 20 Mg Tablet) 20 mg PO DAILY JAK Stop: 06/17/23 08:59 Isosorbide Mononitrate (Isosorbide Mononitrate 24hr Er 60 Mg Tab.Er.24h) 60 mg PO DAILY JAK Stop: 06/17/23 08:59 Lactulose (Lactulose 20 Gm/30 Ml Udc) 30 gm PO DAILY PRN PRN Reason: Constipation Stop: 06/16/23 18:35 Melatonin (Melatonin 5 Mg Tablet) 5 mg PO QHS PRN PRN Reason: Insomnia Stop: 06/16/23 18:34 Last Admin: 06/16/22 21:17 Dose: 5 mg Metformin HCl (Metformin 500 Mg Tablet) 500 mg PO DAILY JAK Stop: 06/17/23 08:59 Montelukast Sodium (Montelukast 10 Mg Tablet) 10 mg PO HS JAK Stop: 06/16/23 21:59 Last Admin: 06/16/22 21:17 Dose: 10 mg Omeprazole (Omeprazole 20 Mg Capsule.Dr) 40 mg PO DAILY JAK Stop: 06/17/23 08:59 Last Admin: 06/17/22 08:07 Dose: 40 mg Polyethylene Glycol (Polyethylene Glycol 3350 17 Gm Powd.Pack) 17 gm PO DAILY JAK Stop: 06/17/23 08:59 Last Admin: 06/17/22 08:07 Dose: Not Given Potassium Chloride (Potassium Chloride Er 20 Meq Tab.Er.Prt) 20 meq PO DAILY JAK Stop: 06/17/23 08:59 Last Admin: 06/17/22 08:07 Dose: 20 meq Pramipexole Dihydrochloride (Pramipexole 0.5 Mg Tablet) 0.5 mg PO HS [facility] Stop: 06/16/23 21:59 Last Admin: 06/16/22 22:34 Dose: 0.5 mg Psyllium Hydrophilic Mucilloid (Psyllium Husk 3.4 Gm Packet) 1 packet PO BID [facility] Stop: 06/16/23 20:59 Last Admin: 06/17/22 08:04 Dose: 1 packet Sennosides (Sennosides 8.6 Mg Tablet) 2 tab PO BID JAK Stop: 06/16/23 20:59 Last Admin: 06/17/22 08:04 Dose: 2 tab Sennosides (Sennosides 8.6 Mg Tablet) 2 tab PO DAILY@12 PRN PRN Reason: If no BM in 2 days Stop: 06/17/23 11:59 Sodium Chloride (Sodium Chloride 0.9 % 10 Ml Syringe) 0 ml IV-PUSH PRN PRN PRN Reason: Flush Stop: 06/16/23 18:35 Tizanidine HCl (Tizanidine 4 Mg Tablet) 4 mg PO BID PRN PRN Reason: Pain Stop: 06/16/23 18:34 Last Admin: 06/16/22 21:18 Dose: 4 mg Valsartan (Valsartan 40 Mg Tablet) 40 mg PO BID [facility] Stop: 06/16/23 20:59 Last Admin: 06/17/22 08:06 Dose: 40 mg Vitamin D (Cholecalciferol 125 Mcg (5,000 Units) Tablet) 125 mcg PO DAILY [facility] Stop: 06/17/23 08:59 Last Admin: 06/17/22 08:06 Dose: 125 mcg Exam Physical Exam Vital Signs: Temp Pulse Resp BP Pulse Ox O2 Del Method 98.0 F 70 18 118/72 92 L Room Air 06/17/22 05:57 06/17/22 05:57 06/17/22 05:57 06/17/22 05:57 06/17/22 05:57 06/17/22 05:57 Narrative: General: cooperative, comfortable HENMT Head: normal to inspection Eyes General: appearance normal, both eyes and all related structures Neck Neck: normal visual inspection, no lymphadenopathy Resp Effort & Inspection: normal respiratory effort Auscultation: clear to auscultation bilaterally Cardio Rate: regular rate Rhythm: regular rhythm Heart Sounds: S1 normal, S2 normal GI Inspection: normal to inspection Auscultation: normal bowel sounds Neuro Cranial Nerves: CN's II-XI intact bilaterally Cognition: normal cognition Speech: speech normal Motor: strength 5/5 throughout except, left hemiplegia 4+ out of 5 Sensory Exam: Impaired sensation stocking distribution. Premorbid. Plantar Reflexes: Downgoing Deep Tendon Reflexes DTR Comments: 1+ and symmetric Extrem General: normal to inspection, no clubbing, cyanosis or edema Psych Mood: normal affect Affect: normal affect Endurance fair Results Labs Labs: Laboratory Results - last 24 hr 06/17/22 06/17/22 06/17/22 06:02 06:15 06:15 Corrected WBC 10.9 Uncorrected WBC Count 10.9 RBC 3.81 Hgb 12.8 Hct 38.9 MCV 102.3 H MCH 33.5 MCHC 32.8 RDW 13.2 Plt Count 309 MPV 7.5 Neut % (Auto) 57.7 Lymph % (Auto) 29.1 Guthrie % (Auto) 9.4 Eos % (Auto) 2.4 Baso % (Auto) 1.4 Nucleat RBC Rel Count 0.0 Neut # (Auto) 6.3 Lymph # (Auto) 3.2 Guthrie # (Auto) 1.0 H Eos # (Auto) 0.3 Baso # (Auto) 0.2 PHA Creatinine Clear 50.13 Sodium 136 Potassium 3.7 Chloride 106 Carbon Dioxide 20.6 L Anion Gap 13.1 BUN 13 Creatinine 0.78 Est GFR ( Amer) > 60 Est GFR (Non-Af Amer) > 60 Glucose 107 H POC Glucose 105 Calcium 9.0 Total Bilirubin 0.5 AST 52 H ALT 39 Alkaline Phosphatase 76 Total Protein 6.9 Albumin 3.3 Globulin 3.6 Albumin/Globulin Ratio 0.9 Prealbumin 24.1 Additional Results Results Comment: I reviewed clinical lab tests, radiology reports and obtained and summated medical records and have ordered follow up lab tests and imaging studies as needed for rehabilitation care. Individualized Plan of Care Individualized Plan of Care Plan of Care: Individualized Overall Plan of Care: Admit Date/Time: June 16, 2022 Expected LOS: 2 weeks Expected Discharge Destination: Home Rehabilitation [facility]: 01.1 Primary Diagnosis: Stroke To have patient become more independent and to return home. Medical/ Functional Prognosis: Good Anticipated Functional Outcomes/Goals and Interventions: 1.Therapy Functional Outcome/Goal: Anticipate independent for bed mobility Anticipated interventions: Physician management, PT, OT, SEARCH MANAGER, , Dietitian, RehabNursing, Case management 2. Therapy Functional Outcome/Goal: Anticipate independent for transfers Anticipated interventions: Physician management, PT, OT, SEARCH MANAGER, Case management, Dietitian, Rehab Nursing 3. Therapy Functional Outcome/Goal: Anticipate independent for ambulation Anticipated interventions: Physician management, PT, OT, SEARCH MANAGER Case management, Dietitian, Rehab Nursing 4.Therapy Functional Outcome/Goal: Anticipate independent for self-care Anticipated interventions: Physician management, PT, OT, SEARCH MANAGER, Case management, Dietitian, Rehab Nursing 5.Therapy Functional Outcome/Goal: Anticipate independent for functional communication and swallowing Anticipated interventions: Physician management, PT, OT, SEARCH MANAGER, Case management, Dietitian, Rehab Nursing Required Therapy PT: 1 hour per day at least 5 days per week with additional therapy on as neededbasis. Comments: PT to improve pt's strength, endurance, bed mobility, transfers (sit-stand), standing balance, gait quality on level surfaces and stairs, coordination and functional ADL skills. Will also work to improve pt's safety awareness during transfers and ambulation. OT: 1 hour per day at least 5 days per week with additional therapy on as neededbasis. Comments: OT for basic ADL re-training (bathing, dressing, toileting, continence, grooming, feeding, transferring), to increase activity tolerance and functional mobility and to evaluate for adaptive and assistive devices. Will work to improve pt's endurance and educate pt on fall prevention and energy conservation techniques-pacing strategies and proper breathing techniques duringfunctional tasks. Speech/Language - 1 hour per day at least 5 days per week with additional therapy on as needed basis. Comments: SEARCH MANAGER to evaluate and treat patient?s cognition, language and communication skills, assess swallow function. Other: Dietitian, Rehab nursing, Wound, P&O, Neuropsychology as needed RATIONALE FOR IRF ADMISSION: Patient has both medical and functional complexities that require 24 hour daily monitoring and intervention from Application Tester as well as other consulting physicians including internal medicine as well as 24 hour daily short haul driver nursing - for medical safe / optimal management. Patient requires interdisciplinary therapy team rehabilitation care including OT, PT, SEARCH MANAGER, SW, Psychology, Rehab Nursing, requires and can tolerate at least 3 hours of daily OT and PT therapy at least 5 days weekly. The following medical conditions significantly impact the rehabilitation process andare being addressed daily and can not be managed at home or in a lesser intense medical setting: Refer to above problem oriented plan of care Assessment/Plan (1) Paroxysmal atrial fibrillation: Code(s): I48.0 - Paroxysmal atrial fibrillation Status: Acute (2) Embolic stroke: Code(s): I63.9 - Cerebral infarction, unspecified Status: Acute (3) Elevated troponin: Code(s): R77.8 - Other specified abnormalities of plasma proteins Status: Acute (4) Hypertension: Code(s): I10 - Essential (primary) hypertension Status: Acute (5) Pacemaker: Code(s): Z95.0 - Presence of cardiac pacemaker Status: Acute (6) Chronic pain: Code(s): G89.29 - Other chronic pain Status: Acute (7) Anxiety: Code(s): F41.9 - Anxiety disorder, unspecified Status: Acute (8) Impaired mobility and activities of daily living: Code(s): Z74.09 - Other reduced mobility; Z78.9 - Other specified health status Status: Acute Plan 81-year-old female with medical history as above including CAD status post CABG,remotely, paroxysmal atrial fibrillation and pacemaker placement admitted to therehabilitation unit with 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 Okay to resume Lasix, Imdur, metformin. She had not received any of these on acute care. We will watch her labs and blood pressure. Confirmed with hospitalist. Continue secondary stroke prevention with Eliquis. Minimal left hemiplegia. Overall improving. H/o chronic pain / anxiety, on norco/lorazepam at baseline. Will follow. OARRS reviewed. Hospitalist to assist with management of comorbid medical conditions Pain control: Continue current medications. Consider d/c tizanidine with h/o afib. Chronic pain received [place] 5/[address] Faustin. Will change from q4h to twice daily as at home. OARRS reviewed. Bowel and bladder: Continent. Skin: No pressure ulcers Sleep: Optimize sleep / wake. DVT prophylaxis: Covered with Eliquis. Functional status: Ambulatory. Needs assist. Left hemiplegia. Impaired endurance. Discharge planning: Home 7-10 days. Plan: I completed a substantive portion of this encounter, the medical decision makingportion of this note in its entirety, including Allied health note review, nursing note review, eap consultant note review, discussion with nursing and case management, and more than 50% of my time was spent on counseling and coordination of care, time spent 55 minutes Patient was personally seen by me, Dr. Zaman, on the day of encounter, reviewed the history and the relevant portions of the chart, including current orders, allied health and eap consultant notes, labs/imaging and performed smith elements of exam and I formulated the plan of care and facilitated the medical decision making. Documented By: Stiven Zaman MD 06/17/22 0940 Signed By: <Electronically signed by Stiven Zaman MD> 06/17/22 1554 [facility] Work Phone: [phone]) 622-629601-04-2023 Consult note Author Frida De La Cruz [facility] June 17, 2022 1:33pm Note Date/Time June 17, 2022 1: 33pm [facility] [address] [place] [address] Hospitalist Consult Note Signed Patient: Abdirahman Gomez MR#: [id number] : 1940 Acct:[id number] Age/Sex: 81 / F Adm Date: 3 Loc: Room: [address] [place] [address] Type: ADM IN Attending Dr: Stiven Zaman MD Copies to: MD Stiven Mccullough MD Rafik Massouh, MD~ HPI DATE OF CONSULTATION: 06/17/22 REQUESTING PROVIDER: Stiven Zaman Consult Narrative Reason for Consult: Hypertension, stroke paroxysmal A. fib HPI: Mrs Gomez is an 81-year-old female who was admitted initially to the medical floor. She was found to have embolic stroke and paroxysmal A. fib. She was a stabilized and admitted to the rehab unit for inpatient course of physical Occupational Therapy. Patient is doing well. Improvement of strength in the left arm and leg. She is able to stand up and ambulate with a walker and assist. no fever or chills. No chest pain or palpitation. Patient is sittingdown eating her lunch Review of Systems Review of Systems All other systems reviewed & are negative unless noted below or in HPI PMFSH Vaccinated for COVID-19?: Yes Medical History A-fib Hypercholesteremia Hypertension MRSA (methicillin resistant staph aureus) culture positive Pacemaker Surgical History History of heart bypass surgery History of total left hip arthroplasty Hx of appendectomy Hx of breast reduction, elective Previous back surgery Social History Smoking Status: Never smoker Substance Use Type: None Meds Medications and Allergies Allergies ciprofloxacin Allergy (Severe, Verified 06/09/22 04:31) Redness of Skin codeine Allergy (Mild, Verified 06/09/22 04:31) Itching Home Medications amlodipine 10 mg tablet 10 mg PO HS 06/09/22 [History Confirmed 06/16/22] carvedilol 12.5 mg tablet 12.5 mg PO BID 06/09/22 [History Confirmed 06/16/22] cholecalciferol (vitamin D3) 125 mcg (5,000 unit) tablet (Vitamin D3) 125 mcg PODAILY 06/09/22 [History Confirmed 06/16/22] furosemide 20 mg tablet 20 mg PO DAILY 06/09/22 [History Confirmed 06/16/22] hydrocodone 5 mg-acetaminophen 325 mg tablet 1 tab PO Q12H PRN Pain 06/09/22 [History Confirmed 06/09/22] isosorbide mononitrate 60 mg tablet,extended release 24 hr 60 mg PO DAILY 06/09/22 [History Confirmed 06/16/22] montelukast 10 mg tablet 10 mg PO HS 06/09/22 [History Confirmed 06/16/22] pramipexole 0.5 mg tablet 0.5 mg PO HS 06/09/22 [History Confirmed 06/16/22] tizanidine 4 mg tablet 4 mg PO BID PRN Pain 06/09/22 [History Confirmed 06/16/22] atorvastatin 80 mg tablet 80 mg PO HS #0 tabs 06/12/22 [Rx Confirmed 06/16/22] omeprazole 40 mg capsule,delayed release 40 mg PO DAILY 30 days #0 caps 06/12/22[Rx Confirmed 06/16/22] apixaban 5 mg tablet (Eliquis) 5 mg PO BID #0 tabs 06/14/22 [Rx Confirmed 06/16/22] melatonin 5 mg tablet 5 mg PO QHS PRN Insomnia #0 tabs 06/14/22 [Rx Confirmed 06/16/22] polyethylene glycol 3350 17 gram oral powder packet (Miralax) 17 g PO DAILY #0 ea 06/14/22 [Rx Confirmed 06/16/22] psyllium husk (aspartame) 3.4 gram oral powder packet (Metamucil Fiber Singles) 1 packet PO BID #0 ea 06/14/22 [Rx Confirmed 06/16/22] sennosides 8.6 mg tablet (Senna Lax) 2 tab PO BID #0 tabs 06/14/22 [Rx Confirmed 06/16/22] valsartan 40 mg tablet 40 mg PO BID #0 tabs 06/14/22 [Rx Confirmed 06/16/22] metformin 500 mg tablet 500 mg PO DAILY #30 tabs 06/16/22 [Rx Confirmed 06/16/22] potassium chloride 20 mEq tablet,extended release(part/cryst) (Klor-Con M) 20 meq PO DAILY #30 tabs 06/16/22 [Rx Confirmed 06/16/22] Active Medications: Active Medications Generic Name Dose Route Start Last Admin Trade Name Meekq PRN Reason Stop Dose Admin Acetaminophen 500 mg 06/16/22 18:36 Acetaminophen 500 Mg Tablet PO 06/16/23 18:35 Q4H PRN Pain Hydrocodone Bitart/Acetaminophen 1 tab 06/16/22 18:54 06/17/22 08:35 Hydrocodone/Acetaminophen 5-325 Mg Tablet PO 1 tab Q4H PRN Administration Pain Al Hydrox/Mg Hydrox/Simethicone 30 ml 06/16/22 18:36 Mag Hydrox/Al Hydrox/Simeth 30 Ml Udc PO 06/16/23 18:35 Q4H PRN Indigestion Amlodipine Besylate 10 mg 06/16/22 22:00 06/16/22 21:18 Amlodipine 10 Mg Tablet PO 06/16/23 21:59 10 mg HS JAK Administration Apixaban 5 mg 06/16/22 21:00 06/17/22 08:04 Apixaban 5 Mg Tablet PO 06/16/23 20:59 5 mg BID JAK Administration Atorvastatin Calcium 80 mg 06/16/22 22:00 06/16/22 21:18 Atorvastatin 80 Mg Tablet PO 06/16/23 21:59 80 mg HS JAK Administration Bisacodyl 10 mg 06/16/22 18:36 Bisacodyl 10 Mg Supp.Rect NV 06/16/23 18:35 DAILY PRN Constipation Carvedilol 12.5 mg 06/16/22 21:00 06/17/22 08:04 Carvedilol 12.5 Mg Tablet PO 06/16/23 20:59 12.5 mg BID JAK Administration Docusate Sodium 100 mg 06/16/22 18:36 Docusate 100 Mg Capsule PO 06/16/23 18:35 BID PRN Constipation Docusate Sodium 283 mg 06/16/22 18:36 Docusate Enema 283 Mg/5 Ml Enema NV 06/16/23 18:35 DAILY PRN Constipation Furosemide 20 mg 06/17/22 09:00 Furosemide 20 Mg Tablet PO 06/17/23 08:59 DAILY JAK Isosorbide Mononitrate 60 mg 06/17/22 09:00 Isosorbide Mononitrate 24hr Er 60 Mg Tab.Er.24h PO 06/17/23 08:59 DAILY JAK Lactulose 30 gm 06/16/22 18:36 Lactulose 20 Gm/30 Ml Udc PO 06/16/23 18:35 DAILY PRN Constipation Melatonin 5 mg 06/16/22 18:35 06/16/22 21:17 Melatonin 5 Mg Tablet PO 06/16/23 18:34 5 mg QHS PRN Administration Insomnia Metformin HCl 500 mg 06/17/22 09:00 Metformin 500 Mg Tablet PO 06/17/23 08:59 DAILY JAK Montelukast Sodium 10 mg 06/16/22 22:00 06/16/22 21:17 Montelukast 10 Mg Tablet PO 06/16/23 21:59 10 mg HS JAK Administration Omeprazole 40 mg 06/17/22 09:00 06/17/22 08:07 Omeprazole 20 Mg Capsule.Dr PO 06/17/23 08:59 40 mg DAILY JAK Administration Polyethylene Glycol 17 gm 06/17/22 09:00 06/17/22 08:07 Polyethylene Glycol 3350 17 Gm Powd.Pack PO 06/17/23 08:59 Not Given DAILY JAK Potassium Chloride 20 meq 06/17/22 09:00 06/17/22 08:07 Potassium Chloride Er 20 Meq Tab.Er.Prt PO 06/17/23 08:59 20 meq DAILY JAK Administration Pramipexole Dihydrochloride 0.5 mg 06/16/22 22:00 06/16/22 22:34 Pramipexole 0.5 Mg Tablet PO 06/16/23 21:59 0.5 mg HS JAK Administration Psyllium Hydrophilic Mucilloid 1 packet 06/16/22 21:00 06/17/22 08:04 Psyllium Husk 3.4 Gm Packet PO 06/16/23 20:59 1 packet BID JAK Administration Sennosides 2 tab 06/16/22 21:00 06/17/22 08:04 Sennosides 8.6 Mg Tablet PO 06/16/23 20:59 2 tab BID JAK Administration Sennosides 2 tab 06/17/22 12:00 Sennosides 8.6 Mg Tablet PO 06/17/23 11:59 DAILY@12 PRN If no BM in 2 days Sodium Chloride 0 ml 06/16/22 18:36 Sodium Chloride 0.9 % 10 Ml Syringe IV-PUSH 06/16/23 18:35 PRN PRN Flush Tizanidine HCl 4 mg 06/16/22 18:35 06/16/22 21:18 Tizanidine 4 Mg Tablet PO 06/16/23 18:34 4 mg BID PRN Administration Pain Valsartan 40 mg 06/18/22 09:00 Valsartan 40 Mg Tablet PO 06/18/23 08:59 DAILY JAK Vitamin D 125 mcg 06/17/22 09:00 06/17/22 08:06 Cholecalciferol 125 Mcg (5,000 Units) Tablet PO 06/17/23 08:59 125 mcg DAILY JAK Administration Exam Physical Exam Vital Signs: Temp Pulse Resp BP Pulse Ox O2 Del Method 98.0 F 70 18 118/72 92 L Room Air 06/17/22 05:57 06/17/22 05:57 06/17/22 05:57 06/17/22 05:57 06/17/22 05:57 06/17/22 07:30 Narrative: [pt is awake and alert. oriented to place, time and person HEENT: [place] conjunctiva and NL buccal mucosa Neck: Supple, no tenderness Endocrine: No Thyromegaly. Vascular: No JVD or carotid bruit. Lymphatic: No cervical lymphadenopathy. Chest: CTA no DTP. Heart RRR, no extra sound or murmur. Abd: Soft, no tenderness, no rebound and no rigidity. Increase abd girth therefore clinically I could not exclude the possibility of intra abd mass or organomegaly. LE: No cyanosis or clubbing, no varices or edema. Neuro: A A O. Nl speech, comprehension and attention. Please refer to the physical and Occupational Therapy team note for details on her functional status and the treatment plan []] Results Lab Results Labs: Laboratory Results - last 72 hr 06/17/22 06:15: PHA Creatinine Clear 50.13, Sodium 136, Potassium 3.7, Chloride 106, Carbon Dioxide 20.6 L, Anion Gap 13.1, BUN 13, Creatinine 0.78, Est GFR ( Amer) > 60, Est GFR (Non-Af Amer) > 60, Glucose 107 H, Calcium 9.0, Total Bilirubin 0.5, AST 52 H, ALT 39, Alkaline Phosphatase 76, Total Protein 6.9, Albumin 3.3, Globulin 3.6, Albumin/Globulin Ratio 0.9, Prealbumin 24.1 06/17/22 06:15: Corrected WBC 10.9, Uncorrected WBC Count 10.9, RBC 3.81, Hgb 12.8, Hct 38.9, MCV 102.3 H, MCH 33.5, MCHC 32.8, RDW 13.2, Plt Count 309, MPV 7.5, Neut % (Auto) 57.7, Lymph % (Auto) 29.1, Guthrie % (Auto) 9.4, Eos % (Auto) 2.4, Baso % (Auto) 1.4, Nucleat RBC Rel Count 0.0, Neut # (Auto) 6.3, Lymph # (Auto) 3.2, Guthrie # (Auto) 1.0 H, Eos # (Auto) 0.3, Baso # (Auto) 0.2 06/17/22 06:02: POC Glucose 105 A&P - Hospitalist Assessment/Plan (1) Paroxysmal atrial fibrillation: (2) Embolic stroke: (3) A-fib: (4) Elevated troponin: (5) Carotid stenosis: Plan Embolic stroke. Continue Eliquis. PT OT as recommended by rehab team Paroxysmal A. fib. Continue Eliquis. Continue Coreg. Elevated troponin. Suspect underlying CAD. Patient is to follow-up with cardiology to investigate further the possibility of underlying CAD. Follow-up appointment has been applied already in the system so does not get Discharged from rehab Carotid stenosis. Recommend vascular evaluation. 60% left side. Follow-up appointment with Dr. Doshi is plugged in so it doesn t get missed on discharge. Hypertension. BP is on the low side. Reduce Diovan from 40 twice a day to 40 daily with holding parameters Thank you for consulting us to see this pt. I will be off service starting Wednesday. Case will be handled by one of my partners if needed. Pt is fairly stable at this time. We will follow pt on an as needed basis. Please call or alert hospitalist if pt develops any signs or symptoms that may require medical evaluation and or intervention. Please arrange for pt after discharge follow up appts with PCP and other specialists. I may or may not have addressed all of patient symptoms, abnormal labs and imaging during this hospitalization. Please ask patient to ask PCP and out patient providers to obtain [facility] record entirely to follow up on illnesses, symptoms, abnormal findings that I have and have not addressed during this encounter and hospitalization in out patient setting. Documented By: Frida De La Cruz MD 06/17/22 1329 Signed By: <Electronically signed by Frida De La Cruz MD> 06/17/22 1333 [facility] Work Phone: 1([phone]) 214-393001-03-2023 Progress note Author Frida De La Cruz [facility] June 16, 2022 11:42am Note Date/Time June 16, 2022 11 :42am [facility] [address] [place], [place] [id number] Progress Note Signed Patient: Abdirahman Gomez MR#: [id number] : 1940 Acct:[id number] Age/Sex: 81 / F Adm Date: 2 Loc: 3T Room: 4W4822-1 Type: ADM IN Attending Dr: Frida De La Cruz MD Copies to: ~ Date of Service: 06/16/2022 Progress Narrative Note PROGRESS NOTE Progress Note: I called her dtr Marti and gave her update on condition, status and tx plan. I told her that at some point she would need to follow up with vascular regarding carotid stenosis. Patient also will need to follow-up with cardiology regarding suspicion of underlying CAD Both appointments and request have been applied and in the system so they do notget missed Documented By: Frida De La Cruz MD 06/16/22 1140 Signed By: <Electronically signed by Frida De La Cruz MD> 06/16/22 1142 [facility] Work Phone: [phone] 369-872401-03-2023 Discharge summary Author Frida De La Cruz [facility] June 16, 2022 8:32am Note Date/Time June 16, 2022 8: 24am [facility] [address] [place] [address] Discharge Summary Signed with Addenda Patient: Abdirahman Gomez MR#: [id number] : 1940 Acct:[id number] Age/Sex: 81 / F Adm Date: 2 Loc: 3T Room: 5U6616-[address]: Frida De La Cruz MD Copies to: MD Frida Mccullough MD~ ADDENDUM2 In addition patient was noted to have borderline hyperglycemia. Hemoglobin A1c is 5.9. Fasting blood sugar is 136. I suspect that patient has a degree of type 2 diabetes. Recheck fasting blood sugar. Start patient on metformin Addendum Documented By: Frida De La Cruz MD 06/16/22 0832 Addendum Signed By: <Electronically signed by Frida De La Cruz MD> 06/16/22 08 ADDENDUM1 In addition patient was noted to have elevated troponin. Patient was seen by cardiology team who elected not to proceed with any coronary investigation at this time. Please refer to cardiology note for details. Patient is recommendedto follow-up with cardiology to discuss this further post discharge from acute rehab Addendum Documented By: Frida De La Cruz MD 06/16/22 0825 Addendum Signed By: <Electronically signed by Frida De La Cruz MD> 06/16/22 0825 Providers Date of Discharge: 06/16/22 Discharging Provider: Frida De La Cruz Primary Care Provider: Irish Faustin Consults: 06/09/22 04:48 Consult to Occupational Therapy Routine Consult to Physical Therapy Routine 06/09/22 04:50 Consult to Cardiology Routine Discharge Diagnosis (1) Elevated troponin: (2) Embolic stroke: (3) Upper extremity weakness: (4) A-fib: (5) Pacemaker: (6) Hypertension: (7) Constipation: Final Diagnosis Final Discharge Diagnosis: As listed above and others that are not listed Summary Hospital Course Hospital course: Mrs. Gomez is an 81-year-old female who came in with left-sided weakness. Shewas found to have acute frontal cerebrovascular accident. Probable subacute stroke on the left side. Patient also is found to have A. fib with RVR. 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 She was recommended to be on Eliquis suspecting that her stroke is embolic in nature. Carotid ultrasound was completed but not read yet. Echocardiogram did not show any significant valvular disease or blood clot. Patient left-sided weakness had improved. Patient will be discharged to the inpatient rehab unit for short-term physical therapy and rehabilitation. Hypertension, fair control Patient has multiple complex medical issues. All appear to be stable. I do nothave any clear or strong clinical justification to extend inpatient hospitalization. Patient however will require close and the frequent monitoringas well as additional work-up, investigation and therapeutic intervention that could take place from this point on post discharge. That is to prevent relapse,decompensation, rehospitalization and other medical implications. Time Spent with Patient Time spent providing/coordinating discharge services (# min): 45 Diagnostic Studies Completed and Pending Studies Pending studies at discharge: 06/12/22 11:08 US carotid doppler BI Routine Labs on day of discharge: 06/15/22 09:02: PHA Creatinine Clear 48.32, Sodium 134 L, Potassium 3.7, Chloride 102, Carbon Dioxide 21.7 L, Anion Gap 14.0, BUN 15, Creatinine 0.83, Est GFR ( Amer) > 60, Est GFR (Non-Af Amer) > 60, Glucose 142 H, Calcium 9.5 06/15/22 09:02: Corrected WBC 10.7, Uncorrected WBC Count 10.7, RBC 4.01, Hgb 13.6, Hct 41.4, MCV 103.3 H, MCH 33.9, MCHC 32.8, RDW 13.7, Plt Count 282, MPV 8.0, Neut % (Auto) 61.6, Lymph % (Auto) 27.7, Guthrie % (Auto) 6.9, Eos % (Auto) 2.6, Baso % (Auto) 1.2, Nucleat RBC Rel Count 0.1, Neut # (Auto) 6.6, Lymph # (Auto) 2.9, Guthrie # (Auto) 0.7, Eos # (Auto) 0.3, Baso # (Auto) 0.1 Exam Physical Exam Vital Signs: Temp Pulse Resp BP Pulse Ox O2 Del Method O2 Flow Rate 97.7 F 70 16 129/79 94 L Room Air 2 06/16/22 03:02 06/16/22 03:02 06/16/22 03:02 06/16/22 03:02 06/16/22 03:02 06/16/22 03:02 06/09/22 12:00 Narrative: [pt is awake and alert. oriented to place, time and person HEENT: Tigard conjunctiva and NL buccal mucosa Neck: Supple, no tenderness Endocrine: No Thyromegaly. Vascular: No JVD or carotid bruit. Lymphatic: No cervical lymphadenopathy. Chest: CTA no DTP. Heart RRR, no extra sound or murmur. Abd: Soft, no tenderness, no rebound and no rigidity. Increase abd girth therefore clinically I could not exclude the possibility of intra abd mass or organomegaly. LE: No cyanosis or clubbing, no varices or edema. Neuro: A A O. Nl speech, comprehension and attention. Subtle left arm and leg weakness measuring about 4/5. Please refer to PT OT note for details []] Discharge Plan Discharge Plan Patient Disposition: Rehab [facility] Activity: No Activity Restriction Diet: Low-Sodium and Low-Cholesterol Additional Instructions: Home health to manage: -RN/PT/OT/SW/Aide to eval and treat -Monitor VS per protocol -Fall precautions -Perform cardiovascular and GI assessments -Monitor for signs of bleeding -Assist with medication management and education I may not have addressed or treated all of your medical illnesses or the abnormal blood work or imaging studies during this hospitalization. Please ask your primary care provider to obtain [facility] records entirely to follow up on all of the abnormal physical, laboratory, and imaging findings that I have not addressed. Please return back to the emergency room or seek medical attention if your symptoms worsen or return. Discharging you from [facility] does not mean that your medical care ends here and now. You may still need additional monitoring, work up, investigation, and treatment plan to be handled from this point on by out patient providers including your primary care provider and specialists. For any medication question, please contact your retail pharmacist or your primary care provider. Thank you. Prescriptions: New melatonin 5 mg Tablet 5 mg PO QHS PRN (Reason: Insomnia) Qty: 0 0RF atorvastatin 80 mg Tablet 80 mg PO HS Qty: 0 0RF Eliquis 5 mg Tablet 5 mg PO BID Qty: 0 0RF Metamucil Fiber Singles 3.4 gram Powder In Packet 1 packet PO BID Qty: 0 0RF valsartan 40 mg Tablet 40 mg PO BID Qty: 0 0RF polyethylene glycol 3350 [Miralax] 17 gram Powder In Packet 17 g PO DAILY Qty: 0 0RF sennosides [Senna Lax] 8.6 mg Tablet 2 tab PO BID Qty: 0 0RF Continued isosorbide mononitrate 60 mg tablet extended release 24 hr 60 mg PO DAILY tizanidine 4 mg tablet 4 mg PO BID PRN (Reason: Pain) amlodipine 10 mg tablet 10 mg PO HS montelukast 10 mg tablet 10 mg PO HS carvedilol 12.5 mg tablet 12.5 mg PO BID pramipexole 0.5 mg tablet 0.5 mg PO HS furosemide 20 mg tablet 20 mg PO DAILY cholecalciferol (vitamin D3) [Vitamin D3] 125 mcg (5,000 unit) Tablet 125 mcg PO DAILY Changed omeprazole 40 mg capsule,delayed release(DR/EC) 40 mg PO DAILY 30 Days Qty: 0 0RF potassium chloride [Klor-Con M20] 20 mEq tablet,ER particles/crystals 20 meq PO DAILY Qty: 30 0RF Held hydrocodone-acetaminophen 5-325 mg tablet 1 tab PO Q12H PRN (Reason: Pain) Hold Instructions: Resume on 07/06/22. Discontinued ascorbic acid (vitamin C) [Vitamin C] 500 mg tablet 500 mg PO DAILY Patient Comments: Take 1 tablet by mouth once a day biotin 10,000 mcg Capsule 10,000 mcg PO DAILY Fish Oil 1,000 mg Capsule 1 cap PO DAILY rosuvastatin 5 mg tablet 5 mg PO HS magnesium chloride 64 mg magnesium tablet 64 mg PO DAILY Patient Comments: 1 tablet by mouth once a day 400 mg once daily Other Ambulatory Orders: Initiate Home Health (Routine) Timeframe: [id number] Location: Determined by Patient Ordered By: Nathaniel Castillo Follow Up: Yoav Prado MD [Active Staff] - Irish Faustin MD [Primary Care Provider] - 06/22/22 10:30 am (You have been scheduled for a follow up appointment for the following date and time, please call to reschedule if needed.) Documented By: Frida De La Cruz MD 06/16/22821 Signed By: <Electronically signed by Frida De La Cruz MD> 06/16/22823 [facility] Work Phone: 1(237) 698-257601-02-2023 Progress note Author Frida De La Cruz [facility] June 15, 2022 8:38am Note Date/Time June 15, 2022 8: 38am [facility] [address] [place] [address] Hospitalist Progress Note Signed Patient: Abdirahman Gomez MR#: [id number] : 1940 Acct:[id number] Age/Sex: 81 / F Adm Date: 2 Loc: Room: [address] [place] [address] Type: ADM IN Attending Dr: Frida De La Cruz MD Copies to: ~ Date of Service: 06/15/2022 Subjective Subjective Narrative: First time taking care of this patient. No chest pain or palpitation. No abdominal pain, nausea or vomiting. No headaches, loss of conscious or seizure Exam Physical Exam Vital Signs: Temp Pulse Resp BP Pulse Ox O2 Del Method O2 Flow Rate 97.6 F 68 16 121/71 93 L Room Air 2 06/15/22 04:00 06/15/22 04:00 06/15/22 04:00 06/15/22 04:00 06/15/22 04:00 06/15/22 04:00 06/09/22 12:00 Narrative: [pt is awake and alert. oriented to place, time and person HEENT: Tigard conjunctiva and NL buccal mucosa Neck: Supple, no tenderness Endocrine: No Thyromegaly. Vascular: No JVD or carotid bruit. Lymphatic: No cervical lymphadenopathy. Chest: CTA no DTP. Heart RRR, no extra sound or murmur. Abd: Soft, no tenderness, no rebound and no rigidity. Increase abd girth therefore clinically I could not exclude the possibility of intra abd mass or organomegaly. LE: No cyanosis or clubbing, no varices or edema. Neuro: A A O. Nl speech, comprehension and attention. Subtle left arm and leg weakness measuring about 4/5. Please refer to PT OT note for details []] Objective Lab Results 06/11/22 04:57 06/09/22 05:13 Meds Allergies and Active Meds Allergies ciprofloxacin Allergy (Severe, Verified 06/09/22 04:31) Redness of Skin codeine Allergy (Mild, Verified 06/09/22 04:31) Itching Active Meds: Active Medications Generic Name Dose Route Start Last Admin Trade Name Freq PRN Reason Stop Dose Admin Acetaminophen 650 mg 06/09/22 04:09 06/14/22 22:22 Acetaminophen 325 Mg Tablet PO 06/09/23 04:08 650 mg Q4H PRN Administration Pain Hydrocodone Bitart/Acetaminophen 1 tab 06/09/22 04:43 06/15/22 05:54 Hydrocodone/Acetaminophen 5-325 Mg Tablet PO 1 tab Q4H PRN Administration Pain Scale 4 - 7 Amlodipine Besylate 10 mg 06/09/22 22:00 06/14/22 22:22 Amlodipine 10 Mg Tablet PO 06/09/23 21:59 10 mg HS JAK Administration Apixaban 5 mg 06/12/22 21:00 06/15/22 08:27 Apixaban 5 Mg Tablet PO 06/12/23 20:59 5 mg BID JAK Administration Atorvastatin Calcium 80 mg 06/10/22 22:00 06/14/22 22:22 Atorvastatin 80 Mg Tablet PO 06/10/23 21:59 80 mg HS JAK Administration Carvedilol 12.5 mg 06/09/22 08:00 06/15/22 08:26 Carvedilol 12.5 Mg Tablet PO 06/09/23 07:59 12.5 mg BID.WITH.MEALS JAK Administration Melatonin 5 mg 06/09/22 04:43 06/14/22 22:22 Melatonin 5 Mg Tablet PO 06/09/23 04:42 5 mg QHS PRN Administration Insomnia Montelukast Sodium 10 mg 06/09/22 22:00 06/14/22 22:22 Montelukast 10 Mg Tablet PO 06/09/23 21:59 10 mg HS JAK Administration Nitroglycerin 0.4 mg 06/10/22 10:05 Nitroglycerin 0.4 Mg Tab.Subl SUBLINGUAL 06/10/23 10:04 Q5MIN.X3 PRN Chest Pain Omeprazole 40 mg 06/09/22 09:00 06/15/22 08:27 Omeprazole 20 Mg Capsule.Dr PO 06/09/23 08:59 40 mg BID JAK Administration Ondansetron HCl 4 mg 06/09/22 04:43 06/09/22 12:20 Ondansetron 4 Mg/2 Ml Vial IV-PUSH 06/09/23 04:42 4 mg Q8H PRN Administration Nausea And Vomiting Polyethylene Glycol 17 gm 06/14/22 09:00 06/15/22 08:27 Polyethylene Glycol 3350 17 Gm Powd.Pack PO 06/14/23 08:59 17 gm DAILY JAK Administration Pramipexole Dihydrochloride 0.5 mg 06/09/22 22:00 06/14/22 22:21 Pramipexole 0.5 Mg Tablet PO 06/09/23 21:59 0.5 mg HS JAK Administration Psyllium Hydrophilic Mucilloid 1 packet 06/13/22 21:00 06/15/22 08:27 Psyllium Husk 3.4 Gm Packet PO 06/13/23 20:59 1 packet BID JAK Administration Sennosides 2 tab 06/13/22 14:30 06/15/22 08:27 Sennosides 8.6 Mg Tablet PO 06/13/23 14:29 2 tab BID JAK Administration Tizanidine HCl 4 mg 06/09/22 04:53 06/14/22 22:22 Tizanidine 4 Mg Tablet PO 06/09/23 04:52 4 mg BID PRN Administration Pain Trazodone HCl 50 mg 06/11/22 21:43 06/11/22 22:24 Trazodone 50 Mg Tablet PO 06/11/23 21:42 50 mg ONCE PRN Administration insomnia Valsartan 40 mg 06/10/22 09:30 06/15/22 08:27 Valsartan 40 Mg Tablet PO 06/10/23 09:29 40 mg BID JAK Administration A&P - Hospitalist Assessment/Plan (1) Elevated troponin: (2) Embolic stroke: (3) Upper extremity weakness: (4) A-fib: (5) Pacemaker: (6) Hypertension: (7) Constipation: Plan Non-STEMI Treated medically per cardiology. Continue anticoagulant therapy for A. fib. High intensity statin. Recheck EKG and troponins today due to presence of chest pain. This could also be related to trauma which she sustained on presentation. Probable mild diverticular bleed Resolved. No further bleeding. Tolerating anticoagulant treatment with Eliquis well. Acute ischemic embolic stroke/Left upper extremity weakness Significantly improved left upper extremity weakness that is back to baseline Brain MRI showing large subacute ischemic infarct involving the right parietal lobe, small area of subacute ischemic infarct involving the left occipital lobe which corresponds with her symptoms of left upper extremity weakness. This is consistent with embolic events from A. fib. Continue Eliquis Carotid ultrasound with 50-69% stenosis in L neck, possible occlusion of R vertebral artery due to poor visualization. Medical therapy recommended. Continue PT OT Constipation Resolved Medically stable to go to inpatient rehab when arrangements made Chronic conditions: A. fib, hyperlipidemia, hypertension, pacemaker status post CABG Diet: Regular DVT prophylaxis: Eliquis CODE STATUS: Full The aforementioned paragraph was documented by my colleague on 07/03/2022 Continue anticoagulation. Pending discharge to a rehab unit. Continue statin Continue BP management. Patient is to follow-up with cardiology Documented By: Frida De La Cruz MD 06/15/22835 Signed By: <Electronically signed by Frida De La Cruz MD> 06/15/2238 [facility] Work Phone: 1(420) 211-379701-01-2023 Progress note Author Nathaniel Castillo [facility] June 14, 2022 2:53pm Note Date/Time June 14, 2022 2: 53pm [facility] [address] [place] [address] Hospitalist Progress Note Signed Patient: Abdirahman Gomez MR#: [id number] : 1940 Acct:[id number] Age/Sex: 81 / F Adm Date: 2 Loc: Room: [address] [place] [address] Type: ADM IN Attending Dr: Nathaniel Castillo MD Copies to: ~ Date of Service: 06/14/2022 Subjective Subjective Narrative: Patient experienced some chest pain, mostly over the left lateral aspect of the chest where she also has a bruise from her fall. No jaw pain or any other symptoms. Heart is regular, no gallop or JVD noted Abdomen soft benign Neurological nonfocal. Left upper extremity power is quite good. Exam Physical Exam Vital Signs: Temp Pulse Resp BP Pulse Ox O2 Del Method O2 Flow Rate 97.4 F L 73 16 152/82 H 94 L Room Air 2 06/14/22 04:00 06/14/22 12:00 06/14/22 12:00 06/14/22 12:00 06/14/22 12:00 06/14/22 12:00 06/09/22 12:00 Objective Lab Results 06/11/22 04:57 06/09/22 05:13 Meds Allergies and Active Meds Allergies ciprofloxacin Allergy (Severe, Verified 06/09/22 04:31) Redness of Skin codeine Allergy (Mild, Verified 06/09/22 04:31) Itching Active Meds: Active Medications Generic Name Dose Route Start Last Admin Trade Name Freq PRN Reason Stop Dose Admin Acetaminophen 650 mg 06/09/22 04:09 06/13/22 21:39 Acetaminophen 325 Mg Tablet PO 06/09/23 04:08 650 mg Q4H PRN Administration Pain Hydrocodone Bitart/Acetaminophen 1 tab 06/09/22 04:43 06/14/22 06:57 Hydrocodone/Acetaminophen 5-325 Mg Tablet PO 1 tab Q4H PRN Administration Pain Scale 4 - 7 Amlodipine Besylate 10 mg 06/09/22 22:00 06/13/22 21:39 Amlodipine 10 Mg Tablet PO 06/09/23 21:59 10 mg HS JAK Administration Apixaban 5 mg 06/12/22 21:00 06/14/22 08:17 Apixaban 5 Mg Tablet PO 06/12/23 20:59 5 mg BID JAK Administration Atorvastatin Calcium 80 mg 06/10/22 22:00 06/13/22 21:39 Atorvastatin 80 Mg Tablet PO 06/10/23 21:59 80 mg HS JAK Administration Carvedilol 12.5 mg 06/09/22 08:00 06/14/22 08:17 Carvedilol 12.5 Mg Tablet PO 06/09/23 07:59 12.5 mg BID.WITH.MEALS JAK Administration Melatonin 5 mg 06/09/22 04:43 06/13/22 21:39 Melatonin 5 Mg Tablet PO 06/09/23 04:42 5 mg QHS PRN Administration Insomnia Montelukast Sodium 10 mg 06/09/22 22:00 06/13/22 21:39 Montelukast 10 Mg Tablet PO 06/09/23 21:59 10 mg HS JAK Administration Nitroglycerin 0.4 mg 06/10/22 10:05 Nitroglycerin 0.4 Mg Tab.Subl SUBLINGUAL 06/10/23 10:04 Q5MIN.X3 PRN Chest Pain Omeprazole 40 mg 06/09/22 09:00 06/14/22 08:18 Omeprazole 20 Mg Capsule.Dr PO 06/09/23 08:59 40 mg BID JAK Administration Ondansetron HCl 4 mg 06/09/22 04:43 06/09/22 12:20 Ondansetron 4 Mg/2 Ml Vial IV-PUSH 06/09/23 04:42 4 mg Q8H PRN Administration Nausea And Vomiting Polyethylene Glycol 17 gm 06/14/22 09:00 06/14/22 13:17 Polyethylene Glycol 3350 17 Gm Powd.Pack PO 06/14/23 08:59 Not Given DAILY JAK Pramipexole Dihydrochloride 0.5 mg 06/09/22 22:00 06/13/22 21:39 Pramipexole 0.5 Mg Tablet PO 06/09/23 21:59 0.5 mg HS JAK Administration Psyllium Hydrophilic Mucilloid 1 packet 06/13/22 21:00 06/14/22 08:18 Psyllium Husk 3.4 Gm Packet PO 06/13/23 20:59 1 packet BID JAK Administration Sennosides 2 tab 06/13/22 14:30 06/14/22 08:18 Sennosides 8.6 Mg Tablet PO 06/13/23 14:29 2 tab BID JAK Administration Tizanidine HCl 4 mg 06/09/22 04:53 06/13/22 21:39 Tizanidine 4 Mg Tablet PO 06/09/23 04:52 4 mg BID PRN Administration Pain Trazodone HCl 50 mg 06/11/22 21:43 06/11/22 22:24 Trazodone 50 Mg Tablet PO 06/11/23 21:42 50 mg ONCE PRN Administration insomnia Valsartan 40 mg 06/10/22 09:30 06/14/22 08:18 Valsartan 40 Mg Tablet PO 06/10/23 09:29 40 mg BID JAK Administration A&P - Hospitalist Assessment/Plan (1) Elevated troponin: (2) Embolic stroke: (3) Upper extremity weakness: (4) A-fib: (5) Pacemaker: (6) Hypertension: (7) Constipation: Plan Non-STEMI Treated medically per cardiology. Continue anticoagulant therapy for A. fib. High intensity statin. Recheck EKG and troponins today due to presence of chest pain. This could also be related to trauma which she sustained on presentation. Probable mild diverticular bleed Resolved. No further bleeding. Tolerating anticoagulant treatment with Eliquiswell. Acute ischemic embolic stroke/Left upper extremity weakness Significantly improved left upper extremity weakness that is back to baseline Brain MRI showing large subacute ischemic infarct involving the right parietal lobe, small area of subacute ischemic infarct involving the left occipital lobe which corresponds with her symptoms of left upper extremity weakness. This is consistent with embolic events from A. fib. Continue Eliquis Carotid ultrasound with 50-69% stenosis in L neck, possible occlusion of R vertebral artery due to poor visualization. Medical therapy recommended. Continue PT OT Constipation Resolved Medically stable to go to inpatient rehab when arrangements made Chronic conditions: A. fib, hyperlipidemia, hypertension, pacemaker status post CABG Diet: Regular DVT prophylaxis: Eliquis CODE STATUS: Full Documented By: Nathaniel Castillo MD 06/14/22 1451 Signed By: <Electronically signed by Nathaniel Castillo MD> 06/14/22 1455 [facility] Work Phone: 1(157) 616-217312-31-2022 Progress note Author Yoav Prado [facility] June 13, 2022 2:58pm Note Date/Time June 13, 2022 2:56[facility] [address] [place] [address] Cardiology Progress Note Signed Patient: Abdirahman Gomez MR#: [id number] : 1940 Acct:[id number] Age/Sex: 81 / F Adm Date: 2 Loc: 3T Room: [address] [place] [address] Type: ADM IN Attending Dr: Nathaniel Castillo MD Copies to: ~ Date of Service: 06/13/2022 Subjective Principal diagnosis: Recent GI bleed, recent TIA symptoms, CHD, (+) TpI Interval history: No cardiac complaint Exam Physical Exam Vital Signs: Temp Pulse Resp BP Pulse Ox O2 Del Method O2 Flow Rate 97.6 F 64 16 125/72 94 L Room Air 2 06/13/22 11:59 06/13/22 11:59 06/13/22 11:59 06/13/22 11:59 06/13/22 11:59 06/13/22 11:59 06/09/22 12:00 Const General: cooperative Neck Neck: supple Lymphatic: no lymphadenopathy noted Resp Effort & Inspection: normal respiratory effort Auscultation: clear to auscultation bilaterally Cardio Palpation: normal PMI Rate: regular rate Rhythm: regular rhythm Heart Sounds: S1 normal and S2 normal Skin General: dry skin Extrem General: full ROM and no clubbing, cyanosis or edema Objective Labs 06/11/22 04:57 06/09/22 05:13 Labs: Laboratory Results - last 24 hr 06/13/22 06/13/22 06:29 06:29 Estimat Average Glucose 123 Hemoglobin A1c 5.9 H Triglycerides 127 Cholesterol 150 LDL Cholesterol, Calc 80 VLDL Cholesterol 25 HDL Cholesterol 45 Cholesterol/HDL Ratio 3.3 A&P - Cardiology (1) Paroxysmal atrial fibrillation: Code(s): I48.0 - Paroxysmal atrial fibrillation Status: Acute (2) Embolic stroke: Code(s): I63.9 - Cerebral infarction, unspecified Status: Acute (3) Hypertension: Code(s): I10 - Essential (primary) hypertension Status: Acute (4) Pacemaker: Code(s): Z95.0 - Presence of cardiac pacemaker Status: Acute Plan 1. Continue present medical therapy including Eliquis and Coreg. 2. Patient can be transferred to rehab 3. We will follow on as-needed basis please let me know if I can be of any assistance Documented By: Yoav Prado MD 06/13/22 1456 Signed By: <Electronically signed by MD Yoav Prado> 06/13/22 1458 [facility] Work Phone: [phone] Progress note Author Nathaniel Castillo [facility] June 13, 2022 2:00pm Note Date/Time June 13, 2022 9:29am [facility] [address] [place] [address] Hospitalist Progress Note Signed Patient: Abdirahman Gomez MR#: [id number] : 1940 Acct:[id number] Age/Sex: 81 / F Adm Date: 2 Loc: Room: [address] [place] [address] Type: ADM IN Attending Dr: Nathaniel Castillo MD Copies to: ~ Date of Service: 06/13/2022 Subjective Subjective Narrative: Attending note: I saw the patient personally on the day of encounter. I reviewed the relevant history, and performed the smith elements of the physical examination. I reviewedthe relevant laboratory workup, radiological studies and the current treatment plan. I formulated the plan of care and confirmed it with the resident/student/JUNIOR DESIGNER. Patient resting in bed comfortably. Denies chest pain, shortness of breath, nausea, numbness, tingling. She was informed that she is approved for inpatientrehab and will be going on Wednesday. Her only concern is that she has not yet had a bowel movement while in the hospital. Exam Physical Exam Vital Signs: Temp Pulse Resp BP Pulse Ox O2 Del Method O2 Flow Rate 97.5 F L 66 16 120/70 96 Room Air 2 06/13/22 08:55 06/13/22 08:55 06/13/22 08:55 06/13/22 08:55 06/13/22 08:55 06/13/22 08:55 06/09/22 12:00 Narrative: CONSTITUTIONAL: No apparent distress HEAD: Normocephalic, atraumatic EYES: EOMI, pupils equal and reactive, conjunctiva normal RESPIRATORY: No distress, lungs clear bilaterally, symmetric chest rise, no wheezes/rales/rhonchi CARDIOVASCULAR: Regular rate and regular rhythm, no murmurs, symmetric dorsalis pedis pulses ABDOMEN: Soft, non-tender, non-distended, normal bowel sounds SKIN: Intact, no rash, no trauma NEURO: Cranial nerves grossly intact, equal and full strength in all extremities PSYCHIATRIC: Normal affect Objective Lab Results 06/11/22 04:57 06/09/22 05:13 Meds Allergies and Active Meds Allergies ciprofloxacin Allergy (Severe, Verified 06/09/22 04:31) Redness of Skin codeine Allergy (Mild, Verified 06/09/22 04:31) Itching Active Meds: Active Medications Generic Name Dose Route Start Last Admin Trade Name Freq PRN Reason Stop Dose Admin Acetaminophen 650 mg 06/09/22 04:09 06/13/22 09:05 Acetaminophen 325 Mg Tablet PO 06/09/23 04:08 650 mg Q4H PRN Administration Pain Hydrocodone Bitart/Acetaminophen 1 tab 06/09/22 04:43 06/12/22 08:30 Hydrocodone/Acetaminophen 5-325 Mg Tablet PO 1 tab Q4H PRN Administration Pain Scale 4 - 7 Amlodipine Besylate 10 mg 06/09/22 22:00 06/12/22 21:06 Amlodipine 10 Mg Tablet PO 06/09/23 21:59 10 mg HS JAK Administration Apixaban 5 mg 06/12/22 21:00 06/13/22 08:55 Apixaban 5 Mg Tablet PO 06/12/23 20:59 5 mg BID JAK Administration Atorvastatin Calcium 80 mg 06/10/22 22:00 06/12/22 21:06 Atorvastatin 80 Mg Tablet PO 06/10/23 21:59 80 mg HS JAK Administration Carvedilol 12.5 mg 06/09/22 08:00 06/13/22 08:55 Carvedilol 12.5 Mg Tablet PO 06/09/23 07:59 12.5 mg BID.WITH.MEALS JAK Administration Melatonin 5 mg 06/09/22 04:43 06/12/22 21:05 Melatonin 5 Mg Tablet PO 06/09/23 04:42 5 mg QHS PRN Administration Insomnia Montelukast Sodium 10 mg 06/09/22 22:00 06/12/22 21:07 Montelukast 10 Mg Tablet PO 06/09/23 21:59 10 mg HS JAK Administration Nitroglycerin 0.4 mg 06/10/22 10:05 Nitroglycerin 0.4 Mg Tab.Subl SUBLINGUAL 06/10/23 10:04 Q5MIN.X3 PRN Chest Pain Omeprazole 40 mg 06/09/22 09:00 06/13/22 08:55 Omeprazole 20 Mg Capsule.Dr PO 06/09/23 08:59 40 mg BID JAK Administration Ondansetron HCl 4 mg 06/09/22 04:43 06/09/22 12:20 Ondansetron 4 Mg/2 Ml Vial IV-PUSH 06/09/23 04:42 4 mg Q8H PRN Administration Nausea And Vomiting Pramipexole Dihydrochloride 0.5 mg 06/09/22 22:00 06/12/22 21:05 Pramipexole 0.5 Mg Tablet PO 06/09/23 21:59 0.5 mg HS JAK Administration Tizanidine HCl 4 mg 06/09/22 04:53 06/12/22 21:06 Tizanidine 4 Mg Tablet PO 06/09/23 04:52 4 mg BID PRN Administration Pain Trazodone HCl 50 mg 06/11/22 21:43 06/11/22 22:24 Trazodone 50 Mg Tablet PO 06/11/23 21:42 50 mg ONCE PRN Administration insomnia Valsartan 40 mg 06/10/22 09:30 06/13/22 08:55 Valsartan 40 Mg Tablet PO 06/10/23 09:29 40 mg BID JAK Administration A&P - Hospitalist Assessment/Plan (1) Elevated troponin: (2) Embolic stroke: (3) Upper extremity weakness: (4) A-fib: (5) Pacemaker: (6) Hypertension: (7) Constipation: Plan Non-STEMI Coronary artery bypass history and presence of pacemaker EKG with some ST depression and atrial fibrillation Initial troponin 9385, repeat 8564, repeat 6373 Cardiology following Continuous telemetry Continue Lipitor 40 mg for high dose Echo showed ejection fraction 55 to 60% Cardiology recommends rehab at this point Probable diverticular bleed Stool occult positive Patient does report small amount of bright red blood that happened once Does have history of diverticulosis Denies abdominal pain, vomiting, recent constipation Hemoglobin stable at 13.5 B12 folate within normal limits Recent bowel movements without blood present, continue to monitor Acute ischemic embolic stroke/Left upper extremity weakness Significantly improved left upper extremity weakness that is back to baseline Denies any sensory deficits Brain MRI showing large subacute ischemic infarct involving the right parietal lobe, small area of subacute ischemic infarct involving the left occipital lobe which corresponds with her symptoms of left upper extremity weakness. This is consistent with embolic events from A. fib. Continue Eliquis per discussion with Dr. Morton Patient accepted for inpatient rehab but cannot accept until Wednesday A1C pending Lipid panel wnl Carotid ultrasound with 50-69% stenosis in L neck, possible occlusion of R vertebral artery due to poor visualization Continue medical therapy Constipation Patient has not had a bowel movement for 2 days prior to admission She has been utilizing prune juice to try to have bowel movement but has not been successful yet in the hospital Will plan to start MiraLAX, Metamucil, senna as needed Chronic conditions: A. fib, hyperlipidemia, hypertension, pacemaker status post CABG Diet: Regular DVT prophylaxis: Eliquis CODE STATUS: Full Documented By: Nathaniel Castillo MD 06/13/22 09 Signed By: <Electronically signed by Nathaniel Castillo MD> 06/13/22 1400 <Electronically signed by DO RYAN Juarez> 06/13/22 1020 [facility] Work Phone: 1([phone]) 312-474512-30-2022 Progress note Author Nathaniel Castillo [facility] June 12, 2022 3:02pm Note Date/Time June 12, 2022 1:38pm [facility] [address] [place] [address] Hospitalist Progress Note Signed Patient: Abdirahman Gomez MR#: [id number] : 1940 Acct:[id number] Age/Sex: 81 / F Adm Date: 2 Loc: Room: [address] [place] [address] Type: ADM IN Attending Dr: Nathaniel Castillo MD Copies to: ~ Date of Service: 06/12/2022 Subjective Subjective Narrative: Attending note: I saw the patient personally on the day of encounter. I reviewed the relevant history, and performed the smith elements of the physical examination. I reviewedthe relevant laboratory workup, radiological studies and the current treatment plan. I formulated the plan of care and confirmed it with the resident/student/JUNIOR DESIGNER. Patient resting in chair comfortably. She has been working hard with physical therapy. Denies chest pain, shortness of breath, nausea. States that her numbness and tingling has improved. She has full use of her left lower extremity back to normal. She was informed that she has had multiple strokes. Exam Physical Exam Vital Signs: Temp Pulse Resp BP Pulse Ox O2 Del Method O2 Flow Rate 97.4 F L 73 16 131/80 96 Room Air 2 06/12/22 11:57 06/12/22 11:57 06/12/22 11:57 06/12/22 11:57 06/12/22 11:57 06/12/22 11:57 06/09/22 12:00 Narrative: CONSTITUTIONAL: No apparent distress HEAD: Normocephalic, atraumatic EYES: EOMI, pupils equal and reactive, conjunctiva normal RESPIRATORY: No distress, lungs clear bilaterally, symmetric chest rise, no wheezes/rales/rhonchi CARDIOVASCULAR: Regular rate and regular rhythm, no murmurs, symmetric dorsalis pedis pulses ABDOMEN: Soft, non-tender, non-distended, normal bowel sounds SKIN: Intact, no rash, no trauma NEURO: Cranial nerves grossly intact, 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, full strength with flexion and extension of upper extremity PSYCHIATRIC: Normal affect Objective Lab Results 06/11/22 04:57 06/09/22 05:13 Meds Allergies and Active Meds Allergies ciprofloxacin Allergy (Severe, Verified 06/09/22 04:31) Redness of Skin codeine Allergy (Mild, Verified 06/09/22 04:31) Itching Active Meds: Active Medications Generic Name Dose Route Start Last Admin Trade Name Freq PRN Reason Stop Dose Admin Acetaminophen 650 mg 06/09/22 04:09 06/11/22 20:52 Acetaminophen 325 Mg Tablet PO 06/09/23 04:08 650 mg Q4H PRN Administration Pain Hydrocodone Bitart/Acetaminophen 1 tab 06/09/22 04:43 06/12/22 08:30 Hydrocodone/Acetaminophen 5-325 Mg Tablet PO 1 tab Q4H PRN Administration Pain Scale 4 - 7 Amlodipine Besylate 10 mg 06/09/22 22:00 06/12/22 00:27 Amlodipine 10 Mg Tablet PO 06/09/23 21:59 Not Given HS JAK Apixaban 5 mg 06/12/22 21:00 Apixaban 5 Mg Tablet PO 06/12/23 20:59 BID JAK Atorvastatin Calcium 80 mg 06/10/22 22:00 06/12/22 00:28 Atorvastatin 80 Mg Tablet PO 06/10/23 21:59 Not Given HS JAK Carvedilol 12.5 mg 06/09/22 08:00 06/12/22 08:30 Carvedilol 12.5 Mg Tablet PO 06/09/23 07:59 12.5 mg BID.WITH.MEALS JAK Administration Melatonin 5 mg 06/09/22 04:43 06/10/22 21:43 Melatonin 5 Mg Tablet PO 06/09/23 04:42 5 mg QHS PRN Administration Insomnia Montelukast Sodium 10 mg 06/09/22 22:00 06/12/22 00:28 Montelukast 10 Mg Tablet PO 06/09/23 21:59 Not Given HS JAK Nitroglycerin 0.4 mg 06/10/22 10:05 Nitroglycerin 0.4 Mg Tab.Subl SUBLINGUAL 06/10/23 10:04 Q5MIN.X3 PRN Chest Pain Omeprazole 40 mg 06/09/22 09:00 06/12/22 08:29 Omeprazole 20 Mg Capsule. PO 06/09/23 08:59 40 mg BID JAK Administration Ondansetron HCl 4 mg 06/09/22 04:43 06/09/22 12:20 Ondansetron 4 Mg/2 Ml Vial IV-PUSH 06/09/23 04:42 4 mg Q8H PRN Administration Nausea And Vomiting Pramipexole Dihydrochloride 0.5 mg 06/09/22 22:00 06/12/22 00:28 Pramipexole 0.5 Mg Tablet PO 06/09/23 21:59 Not Given HS JAK Tizanidine HCl 4 mg 06/09/22 04:53 06/10/22 21:43 Tizanidine 4 Mg Tablet PO 06/09/23 04:52 4 mg BID PRN Administration Pain Trazodone HCl 50 mg 06/11/22 21:43 06/11/22 22:24 Trazodone 50 Mg Tablet PO 06/11/23 21:42 50 mg ONCE PRN Administration insomnia Valsartan 40 mg 06/10/22 09:30 06/12/22 08:29 Valsartan 40 Mg Tablet PO 06/10/23 09:29 40 mg BID JAK Administration A&P - Hospitalist Assessment/Plan (1) Elevated troponin: (2) Embolic stroke: (3) Upper extremity weakness: (4) A-fib: (5) Pacemaker: (6) Hypertension: Plan Non-STEMI Coronary artery bypass history and presence of pacemaker EKG with some ST depression and atrial fibrillation Initial troponin 9385, repeat 8564, repeat 6373 Cardiology following Continuous telemetry Continue Lipitor 40 mg for high dose Echo showed ejection fraction 55 to 60% Cardiology recommends rehab at this point Hemorrhoidal bleed Stool occult positive Patient does report small amount of bright red blood that happened once Does have history of diverticulosis Denies abdominal pain, vomiting, recent constipation Hemoglobin stable at 13.5, continue to monitor B12 folate within normal limits Recent bowel movements without blood present Embolic stroke/Left upper extremity weakness, related to A. fib Significantly improved left upper extremity weakness that is back to baseline Denies any sensory deficits Brain MRI showing large subacute ischemic infarct involving the right parietal lobe, small area of subacute ischemic infarct involving the left occipital lobe which corresponds with her symptoms of left upper extremity weakness Will start Eliquis per discussion with Dr. Morton Head MRI pending Carotid ultrasound pending Patient accepted for inpatient rehab but cannot accept until Wednesday Chronic conditions: A. fib, hyperlipidemia, hypertension, pacemaker status post CABG Diet: Regular DVT prophylaxis: Eliquis CODE STATUS: Full Documented By: Nathaniel Castillo MD 06/12/22 1334 Signed By: <Electronically signed by Nathaniel Castillo MD> 06/12/22 1502 <Electronically signed by DO RYAN Juarez> 06/12/22 1442 [facility] Work Phone: [phone]) 108-349712-30-2022 Progress note Author Paramjit Pride [facility] June 12, 2022 11:05am Note Date/Time June 12, 2022 11:05am [facility] [address] [place] [address] Cardiology Progress Note Signed Patient: Abdirahman Gomez MR#: [id number] : 1940 Acct:[id number] Age/Sex: 81 / F Adm Date: 2 Loc: Room: [address] [place] [address] Type: ADM IN Attending Dr: Nathaniel Castillo MD Copies to: ~ Date of Service: 06/12/2022 Subjective Principal diagnosis: Recent GI bleed, recent TIA symptoms, CHD, (+) TpI Interval history: Abdirahman is doing well this morning. On my evaluation and interview, she is sitting up in a chair performing physical therapy. She denies any chest pain back pain rib pain neck pain jaw pain or any other anginal equivalent. She statesher breathing feels good and at baseline. She is noticed no dark stool or any other signs of bleeding. She states she is moving and using her left hand normally. She states she does feel a bit weak and needs help with transfers. Otherwise she is without complaint at this time. Brain MRI has shown 2 areas of embolic stroke which correspond with the patient's neuromuscular defect in the left upper extremity. Exam Physical Exam Vital Signs: Temp Pulse Resp BP Pulse Ox O2 Del Method O2 Flow Rate 98.3 F 72 16 126/79 95 Room Air 2 06/12/22 08:28 06/12/22 08:28 06/12/22 08:28 06/12/22 08:28 06/12/22 08:28 06/12/22 08:30 06/09/22 12:00 Const General: cooperative, healthy appearing, comfortable, no acute distress and other (Currently rating chest pain is 0/10) Nutritional Appearance: average body habitus and well nourished Orientation: alert, awake and oriented x3 HEENT Head: normocephalic and atraumatic Mouth: moist mucous membranes Teeth and gingiva: fair dentition Eyes Conjunctivae: conjunctivae normal Sclera: sclerae normal Pupils: PERRL and accommodation normal Direct ophthalmoscopy: no photophobia Neck Neck: no lymphadenopathy and supple Neck mass: No Thyroid: thyroid normal Carotids: normal carotid upstroke Lymphatic: no lymphadenopathy noted Chest Chest palpation & inspection: normal inspection of the chest Resp Effort & Inspection: normal respiratory effort, able to speak in complete sentences and symmetric chest movement Auscultation: clear to auscultation bilaterally Cardio Jugular venous pressure: no JVD Palpation: normal PMI Rate: regular rate Rhythm: regular rhythm Heart Sounds: S1 normal, S2 normal, gallop S4 gallop and murmur systolic I/ and at the right sternal border Pulses: brachial pulses present, radial pulses present, posterior tibial pulses present and dorsalis pedis present GI Inspection: normal to inspection Palpation: soft and no hepatosplenomegaly Percussion: normal to percussion Auscultation: normal bowel sounds Skin General: no rashes or lesions noted Lesions: no lesions Rashes: no rashes Trauma: no lacerations or abrasions Wounds: no wounds Neuro General: patient alert, patient awake, patient oriented x3, moves all extremities and no focal motor deficits Cranial Nerves: CN's II-XII intact bilaterally Cognition: normal cognition Speech: speech normal Motor: muscle tone normal throughout Sensory Exam: no sensory deficits noted Extrem General: no clubbing, cyanosis or edema Psych Appearance: grossly normal Mood: congruent mood Affect: normal affect Speech and Movement: speech and movement normal Attitude: cooperative Thought Process: normal Thought Content: normal Insight: insight good Judgment: judgment good Objective Labs 06/11/22 04:57 06/09/22 05:13 A&P - Cardiology (1) A-fib: Assessment/Problem Details: Paroxysmal. Elevated CV 2 score. Likely source of patient's recent cardioembolic stroke Code(s): I48.91 - Unspecified atrial fibrillation Status: Acute Plan: At this point given MRI evidence of cardio thromboembolic event. Would recommend full anticoagulation with DOAC: Apixaban 5 Mg Twice Daily. Stop Aspirin (2) Pacemaker: Assessment/Problem Details: Stable. No evidence of pacemaker malfunction Code(s): Z95.0 - Presence of cardiac pacemaker Status: Acute Plan: No changes recommended presently. (3) Elevated troponin: Assessment/Problem Details: Type II event likely related to cardioembolic stroke. Troponins declining. Code(s): R77.8 - Other specified abnormalities of plasma proteins Status: Acute Plan: Recommend rest of cardiac risk factor modification and medical management of atherosclerotic cardiovascular disease and small type II NSTEMI. Do not recommend invasive management strategy (cardiac catheterization). (4) Abnormal ECG: Code(s): R94.31 - Abnormal electrocardiogram [ECG] [EKG] Status: Acute Plan: Conservative management strategy as outlined above. Plan Recommend focus on rehabilitation at this point as well as avoidance of agents that would exacerbate or cause recurrent GI bleed. Strongly recommended evaluation for inpatient rehabilitation stay on the fifth floor. Time spent with patient Time Spent With Patient (min): 20 Documented By: Paramjit Pride MD 06/12/221101 Signed By: <Electronically signed by Paramjit Pride MD> 06/12/22 1100 [facility] Work Phone: [phone]) 283-160512-29-2022 Progress note Author Nathaniel Castillo [facility] June 11, 2022 4:24pm Note Date/Time June 11, 2022 12:40pm [facility] [address] [place] [address] Hospitalist Progress Note Signed Patient: Abdirahman Gomez MR#: [id number] : 1940 Acct:[id number] Age/Sex: 81 / F Adm Date: 2 Loc: Room: [address] [place] [address] Type: ADM IN Attending Dr: Nathaniel Castillo MD Copies to: ~ Date of Service: 06/11/2022 Subjective Subjective Narrative: Attending note: I saw the patient personally on the day of encounter. I reviewed the relevant history, and performed the smith elements of the physical examination. I reviewedthe relevant laboratory workup, radiological studies and the current treatment plan. I formulated the plan of care and confirmed it with the resident/student/JUNIOR DESIGNER. Patient resting in bed comfortably. Denies chest pain, shortness of breath, nausea. States that her numbness and tingling has improved. Exam Physical Exam Vital Signs: Temp Pulse Resp BP Pulse Ox O2 Del Method O2 Flow Rate 98.4 F 73 18 130/71 92 L Room Air 2 06/11/22 08:39 06/11/22 08:39 06/11/22 08:39 06/11/22 08:39 06/11/22 08:39 06/11/22 08:39 06/09/22 12:00 Narrative: CONSTITUTIONAL: No apparent distress HEAD: Normocephalic, atraumatic EYES: EOMI, pupils equal and reactive, conjunctiva normal RESPIRATORY: No distress, lungs clear bilaterally, symmetric chest rise, no wheezes/rales/rhonchi CARDIOVASCULAR: Regular rate and regular rhythm, no murmurs, symmetric dorsalis pedis pulses ABDOMEN: Soft, non-tender, non-distended, normal bowel sounds SKIN: Intact, no rash, no trauma NEURO: Cranial nerves grossly intact, 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 which is improved upon yesterday's exam, full strength with flexion and extension of upper extremity PSYCHIATRIC: Normal affect Objective Lab Results 06/11/22 04:57 06/09/22 05:13 Meds Allergies and Active Meds Allergies ciprofloxacin Allergy (Severe, Verified 06/09/22 04:31) Redness of Skin codeine Allergy (Mild, Verified 06/09/22 04:31) Itching Active Meds: Active Medications Generic Name Dose Route Start Last Admin Trade Name Freq PRN Reason Stop Dose Admin Acetaminophen 650 mg 06/09/22 04:09 06/10/22 10:12 Acetaminophen 325 Mg Tablet PO 06/09/23 04:08 650 mg Q4H PRN Administration Pain Hydrocodone Bitart/Acetaminophen 1 tab 06/09/22 04:43 06/11/22 08:38 Hydrocodone/Acetaminophen 5-325 Mg Tablet PO 1 tab Q4H PRN Administration Pain Scale 4 - 7 Amlodipine Besylate 10 mg 06/09/22 22:00 06/10/22 21:43 Amlodipine 10 Mg Tablet PO 06/09/23 21:59 10 mg HS JAK Administration Aspirin 81 mg 06/11/22 09:00 06/11/22 08:39 Aspirin 81 Mg Tab.Chew PO 06/11/23 08:59 81 mg DAILY JAK Administration Atorvastatin Calcium 80 mg 06/10/22 22:00 06/10/22 21:43 Atorvastatin 80 Mg Tablet PO 06/10/23 21:59 80 mg HS JKA Administration Carvedilol 12.5 mg 06/09/22 08:00 06/11/22 08:38 Carvedilol 12.5 Mg Tablet PO 06/09/23 07:59 12.5 mg BID.WITH.MEALS JAK Administration Melatonin 5 mg 06/09/22 04:43 06/10/22 21:43 Melatonin 5 Mg Tablet PO 06/09/23 04:42 5 mg QHS PRN Administration Insomnia Montelukast Sodium 10 mg 06/09/22 22:00 06/10/22 21:43 Montelukast 10 Mg Tablet PO 06/09/23 21:59 10 mg HS JAK Administration Nitroglycerin 0.4 mg 06/10/22 10:05 Nitroglycerin 0.4 Mg Tab.Subl SUBLINGUAL 06/10/23 10:04 Q5MIN.X3 PRN Chest Pain Omeprazole 40 mg 06/09/22 09:00 06/11/22 08:38 Omeprazole 20 Mg Capsule.Dr PO 06/09/23 08:59 40 mg BID JAK Administration Ondansetron HCl 4 mg 06/09/22 04:43 06/09/22 12:20 Ondansetron 4 Mg/2 Ml Vial IV-PUSH 06/09/23 04:42 4 mg Q8H PRN Administration Nausea And Vomiting Pramipexole Dihydrochloride 0.5 mg 06/09/22 22:00 06/10/22 21:43 Pramipexole 0.5 Mg Tablet PO 06/09/23 21:59 0.5 mg HS JAK Administration Tizanidine HCl 4 mg 06/09/22 04:53 06/10/22 21:43 Tizanidine 4 Mg Tablet PO 06/09/23 04:52 4 mg BID PRN Administration Pain Valsartan 40 mg 06/10/22 09:30 06/11/22 08:38 Valsartan 40 Mg Tablet PO 06/10/23 09:29 40 mg BID JAK Administration A&P - Hospitalist Assessment/Plan (1) Elevated troponin: (2) A-fib: (3) Pacemaker: (4) Hypertension: (5) Upper extremity weakness: Plan Elevated troponin Coronary artery bypass history and presence of pacemaker EKG with some ST depression and atrial fibrillation Initial troponin 9385, repeat 8564, repeat 6373 Dr. Morton felt that no acute intervention required Cardiology consulted Continuous telemetry Continue Lipitor 40 mg for high dose Echo reviewed, preserved ejection fraction Cardiology recommends rehab at this point and avoiding agents to cause recurrentGI bleed Possible lower GI bleed, macrocytic anemia Stool occult positive Patient does report small amount of bright red blood that happened once Does have history of diverticulosis Denies abdominal pain, vomiting, recent constipation Hemoglobin stable at 13.5, continue to monitor B12 folate within normal limits Left upper extremity weakness Significant improved on today's exam Denies any sensory deficits Patient states this started 06/09 No history of stroke We will check brain MRI given extent of symptoms and history of A. fib to evaluate for need for anticoagulation Chronic conditions: A. fib, hyperlipidemia, hypertension, pacemaker status post CABG Diet: Regular DVT prophylaxis: SCDs CODE STATUS: Full Documented By: Nathaniel Castillo MD 06/11/22 1236 Signed By: <Electronically signed by Nathaniel Castillo MD> 06/11/22 1624 <Electronically signed by DO RYAN Juarez> 06/11/22 [address] [facility] Work Phone: 1(466) 843-697812-29-2022 Progress note Author Paramjit Pride [facility] June 11, 2022 9:45am Note Date/Time June 11, 2022 9:46am [facility] [address] [place] [address] Cardiology Progress Note Signed Patient: Abdirahman Gomez MR#: [id number] : 1940 Acct:[id number] Age/Sex: 81 / F Adm Date: 2 Loc: 3T Room: [address] [place] [address] Type: ADM IN Attending Dr: Nathaniel Castillo MD Copies to: ~ Date of Service: 06/11/2022 Subjective Principal diagnosis: Recent GI bleed, recent TIA symptoms, CHD, (+) TpI Interval history: Abdirahman is doing well this morning. On my evaluation and interview she denies any chest pain back pain rib pain neck pain jaw pain or any other anginal equivalent. She states her breathing feels good and at baseline. She is noticed no dark stool or any other signs of bleeding. She states she is moving and using her left hand normally. She states she does feel a bit weak and needs help with transfers. Otherwise she is without complaint at this time. Of note the patient's troponin curve has trended down this morning. Her troponin is in the 3000 range down from 6000. Her hematocrit has dropped from 41 to 37%. Exam Physical Exam Vital Signs: Temp Pulse Resp BP Pulse Ox O2 Del Method O2 Flow Rate 98.4 F 73 18 130/71 92 L Room Air 2 06/11/22 08:39 06/11/22 08:39 06/11/22 08:39 06/11/22 08:39 06/11/22 08:39 06/11/22 08:39 06/09/22 12:00 Const General: cooperative, healthy appearing, comfortable, no acute distress and other (Currently rating chest pain is 0/10) Nutritional Appearance: average body habitus and well nourished Orientation: alert, awake and oriented x3 HEENT Head: normocephalic and atraumatic Mouth: moist mucous membranes Teeth and gingiva: fair dentition Eyes Conjunctivae: conjunctivae normal Sclera: sclerae normal Pupils: PERRL and accommodation normal Direct ophthalmoscopy: no photophobia Neck Neck: no lymphadenopathy and supple Neck mass: No Thyroid: thyroid normal Carotids: normal carotid upstroke Lymphatic: no lymphadenopathy noted Chest Chest palpation & inspection: normal inspection of the chest Resp Effort & Inspection: normal respiratory effort, able to speak in complete sentences and symmetric chest movement Auscultation: clear to auscultation bilaterally Cardio Jugular venous pressure: no JVD Palpation: normal PMI Rate: regular rate Rhythm: regular rhythm Heart Sounds: S1 normal, S2 normal, gallop S4 gallop and murmur systolic I/ and at the right sternal border Pulses: brachial pulses present, radial pulses present, posterior tibial pulses present and dorsalis pedis present GI Inspection: normal to inspection Palpation: soft and no hepatosplenomegaly Percussion: normal to percussion Auscultation: normal bowel sounds Skin General: no rashes or lesions noted Lesions: no lesions Rashes: no rashes Trauma: no lacerations or abrasions Wounds: no wounds Neuro General: patient alert, patient awake, patient oriented x3, moves all extremities and no focal motor deficits Cranial Nerves: CN's II-XII intact bilaterally Cognition: normal cognition Speech: speech normal Motor: muscle tone normal throughout Sensory Exam: no sensory deficits noted Extrem General: no clubbing, cyanosis or edema Psych Appearance: grossly normal Mood: congruent mood Affect: normal affect Speech and Movement: speech and movement normal Attitude: cooperative Thought Process: normal Thought Content: normal Insight: insight good Judgment: judgment good Objective Labs 06/11/22 04:57 06/09/22 05:13 Labs: Laboratory Results - last 24 hr 06/11/22 06/11/22 04:57 04:57 Corrected WBC 11.4 Uncorrected WBC Count 11.4 RBC 3.61 Hgb 12.4 Hct 37.7 MCV 104.5 H MCH 34.5 H MCHC 33.0 RDW 13.6 Plt Count 206 MPV 8.0 Neut % (Auto) 65.1 Lymph % (Auto) 24.1 Guthrie % (Auto) 9.1 Eos % (Auto) 1.2 Baso % (Auto) 0.5 Nucleat RBC Rel Count 0.1 Neut # (Auto) 7.4 Lymph # (Auto) 2.8 Guthrie # (Auto) 1.0 H Eos # (Auto) 0.1 Baso # (Auto) 0.1 Troponin I High Sens 3701 H* A&P - Cardiology (1) A-fib: Assessment/Problem Details: Paroxysmal. Currently maintaining normal sinus rhythm with high fidelity. Code(s): I48.91 - Unspecified atrial fibrillation Status: Acute Plan: No systemic anticoagulation is recommended given the patient's recent GI bleed (2) Pacemaker: Code(s): Z95.0 - Presence of cardiac pacemaker Status: Acute Plan: No changes recommended presently. (3) Elevated troponin: Assessment/Problem Details: Troponin curve trending downward from very likely small type II event. Code(s): R77.8 - Other specified abnormalities of plasma proteins Status: Acute Plan: Recommend rest of cardiac risk factor modification and medical management of atherosclerotic cardiovascular disease and small type II NSTEMI. Do not recommend invasive management strategy (cardiac catheterization). (4) Abnormal ECG: Assessment/Problem Details: With baseline 0.5 mm CORINA with pathologic Q waves in the inferior leads. No acute or dynamic changes on this morning's ECG. Code(s): R94.31 - Abnormal electrocardiogram [ECG] [EKG] Status: Acute Plan: Conservative management strategy as outlined above. Plan Recommend focus on rehabilitation at this point as well as avoidance of agents that would exacerbate or cause recurrent GI bleed. Strongly recommended evaluation for inpatient rehabilitation stay on the fifth floor. Recommend begin stat evaluation today. Time spent with patient Time Spent With Patient (min): 20 Documented By: Paramjit Pride MD 06/11/2242 Signed By: <Electronically signed by Paramjit Pride MD> 06/11/22 [address] [facility] Work Phone: [phone] Progress note Author Paramjit Pride [facility] June 10, 2022 6:21pm Note Date/Time June 10, 2022 12:12pm [facility] [address] [place] [address] Cardiology Progress Note Signed with Addenda Patient: Abdirahman Gomez MR#: [id number] : 1940 Acct:[id number] Age/Sex: 81 / F Adm Date: 2 Loc: Room: [address] [place] [address] Type: ADM IN Attending Dr: Nathaniel Castillo MD Copies to: ~ ADDENDUM1 I had an extensive discussion today with the patient and her daughter. Her daughter has raised concern about whether or not the patient has had a heart attack and whether as such invasive management strategy (cardiac catheterization) should be warranted. I have explained in detail to both Kianahand her daughter that she indeed has had a small heart attack. My clinical impression and diagnoses that this is a relatively small type II event primarilybased on the patient's echocardiogram which shows normal left ventricular regional wall motion and systolic function. There does appear to however to be on the echocardiogram and area of thinning in the basal inferior wall which is not affecting the left ventricular overall systolic performance. This lines up with pathologic Q waves present in inferior leads on the patient's surface EKG. The patient's troponin peaked initially in [place] emergency department at 9000and is now come down to 6000. I have explained that this is most consistent with a completion of a small type II event and that my recommendation would be to treat this event with medical therapy rather than an invasive strategy most particularly because the patient shows evidence of recent GI blood loss and thatit would appear that the patient is at elevated risk for bleeding complications particularly GI bleeding complications with the use of anticoagulants and antiplatelet agents necessary for cardiac catheterization and/or PCI. I have explained that in my view the patient's risk for this type of bleeding outweighsany potential benefit that a cardiac catheterization may provide in the setting of a small type II event which is left her left ventricle unaffected. Both Abdirahman and her daughter have expressed understanding of my reasoning to pursue a conservative management approach in this scenario and they both agreed with same. They are concerned about some manner of rehabilitation for Abdirahman. I agree and it is my impression that an inpatient stay here on our fifth floor rehabilitation unit would be of significant benefit for Abdirahman as with outpatient home physical therapy followed by phase 2 monitored cardiac rehabilitation. We will check another serum troponin in the morning as well as another EKG. If there are any of these clinical data points that suggest an ongoing ischemic process, I think at that point the risk-benefit ratio for Scott would shift to the point where cardiac catheterization and the risks entailed with such would appear more likely of clinical benefit. Otherwise it is my recommendation to maintain a conservative approach and manage this type II event with medical therapy followed by rehabilitation. Addendum Documented By: Paramjit Pride MD 06/10/221820 Addendum Signed By: <Electronically signed by Paramjit Pride MD> 06/10/221820 Date of Service: 06/10/2022 Subjective Principal diagnosis: Recent GI bleed, recent TIA symptoms, CHD, (+) TpI Interval history: Abdirahman is doing well clinically this morning. On my evaluation she is sitting up in a chair resting comfortably. She is ambulated this morning without anginal symptoms or without dyspnea. She had some pain in the right side of herback and ribs earlier this morning that resolved when she got up out of her recliner and was able to ambulate. She states she is moving and able to use herleft hand normally at this point which she could not for the last few days. There was some concern this morning about ST elevation on the patient laboratorymonitoring. Serial EKGs were performed which showed no change from baseline. There is some baseline half a millimeter of ST elevation in the patient's inferior leads with associated pathologic Q waves. This corresponds to a thinned akinetic inferior wall as seen on echocardiogram which was done at bedside yesterday. This is also shown otherwise normal left ventricular regional wall motion and well-preserved overall left ventricular systolic function with ejection fraction approximately 50%. The patient's serum troponins have been low positive around 6000. Her troponin curve has remained flat. Exam Physical Exam Vital Signs: Temp Pulse Resp BP Pulse Ox O2 Del Method O2 Flow Rate 97.9 F 71 17 125/66 93 L Room Air 2 06/10/22 08:59 06/10/22 11:41 06/10/22 11:41 06/10/22 11:41 06/10/22 11:41 06/10/22 11:41 06/09/22 12:00 Const General: cooperative, healthy appearing, comfortable, no acute distress and other (Currently rating chest pain is 0/10) Nutritional Appearance: average body habitus Orientation: alert, awake and oriented x3 HEENT Head: normocephalic and atraumatic Mouth: moist mucous membranes Teeth and gingiva: fair dentition Eyes Conjunctivae: conjunctivae normal Sclera: sclerae normal Pupils: PERRL and accommodation normal Direct ophthalmoscopy: no photophobia Neck Neck: no lymphadenopathy and supple Neck mass: No Thyroid: thyroid normal Carotids: normal carotid upstroke Lymphatic: no lymphadenopathy noted Chest Chest palpation & inspection: normal inspection of the chest Resp Effort & Inspection: normal respiratory effort, able to speak in complete sentences and symmetric chest movement Auscultation: clear to auscultation bilaterally Cardio Jugular venous pressure: no JVD Palpation: normal PMI Rate: regular rate Rhythm: regular rhythm Heart Sounds: gallop S4 gallop and murmur systolic I/ and at the right sternalborder Pulses: radial pulses present, posterior tibial pulses present and dorsalis pedis present GI Inspection: normal to inspection Palpation: soft and no hepatosplenomegaly Percussion: normal to percussion Auscultation: normal bowel sounds Skin General: no rashes or lesions noted Lesions: no lesions Rashes: no rashes Neuro General: patient alert, patient awake, patient oriented x3, moves all extremities and no focal motor deficits Cranial Nerves: CN's II-XII intact bilaterally Cognition: normal cognition Speech: speech normal Motor: muscle tone normal throughout Sensory Exam: no sensory deficits noted Extrem General: no clubbing, cyanosis or edema Psych Appearance: grossly normal Mood: congruent mood Affect: normal affect Speech and Movement: speech and movement normal Attitude: cooperative Thought Process: normal Thought Content: normal Insight: insight good Judgment: judgment good Objective Labs 06/09/22 05:13 06/09/22 05:13 Labs: Laboratory Results - last 24 hr 06/09/22 12:02 Troponin I High Sens 6364 H* Echocardiogram Signed Patient: Abdirahman Gomez MR#: [id number] : 1940 Acct:[id number] Age/Sex: 81 / F ADM Date: 06/09/22 Loc: Room:? 3P3061-0 Type:?ADM IN Attending Dr: Nathaniel Castillo MD Ordering Provider: Marta Juarez DO, RES Date of Service: 06/09/22 ECH/ECH echo transthoracic: elevated trop, afib Copies to: Marta Juarez DO, RES Mourhaf A Traboulssi, MD~ BSA: 1.7 m2? BP: 154/167 mmHg HR: 77 Reason For Study: elevated trop, afib History: Atrial fibrillation, Hypertension, MRSA, Pacemaker, CABG Interpretation Summary Ejection Fraction = 55-60%. The left ventricular size, thickness and function are normal The left ventricular wall motion is normal. The left atrium appears mildly dilated. The right atrium is mildly dilated. There is mild to moderate mitral regurgitation. There is moderate tricuspid regurgitation. The right ventricular systolic pressure is 40 mmHg. Right ventricular systolic pressure is consistent with mild pulmonary hypertension. The patient was in atrial fibrillation through out the study. There is no comparison study available. Procedure/Quality: ? A two-dimensional transthoracic echocardiogram with color flow and Doppler was performed. The study was technically good in quality. Left Ventricle: ? The left ventricular size, thickness and function are normal. Ejection Fraction = 55-60%. The left ventricular wall motion is normal. Left Atrium: ? The left atrium appears mildly dilated. Right Atrium: ? The right atrium is mildly dilated. Right Ventricle: ? The right ventricular size, thickness and function are normal. Aortic Valve: ? The aortic valve is normal in structure and function. No aortic regurgitation is present. Mitral Valve: ? The mitral valve is normal in structure and function. There is mild to moderate mitral regurgitation. Tricuspid Valve: ? The tricuspid valve is normal in structure and function. There is moderate tricuspid regurgitation. The right ventricular systolic pressure is 40 mmHg. Right ventricular systolic pressure is consistent with mild pulmonary hypertension. Pulmonic Valve: ? The pulmonic valve is normal in structure and function. Trace pulmonic valvular regurgitation. Arteries: ? The aortic root is normal size. Pericardium/Pleura: ? No pericardial effusion seen. There is no pleural effusion. IVC/Hepatic Viens: ? The inferior vena cava is normal in size, with a normal collapsibility index. Miscellaneous: ? The patient was in atrial fibrillation through out the study. Measurements with Normals IVSd: 1.1 cm? (0.7-1.1 cm)LVIDd: 4.1 cm ? ? ? (3.7-5.4 cm) LVPWd: 0.88 cm? (0.7-1.1 cm)LVIDs: 3.2 cm ? ? ? (2.3-3.6 cm) LA dimension: 3.3 cm? (2.3-4.0 cm)Ao root diam: 2.8 cm(2.0-3.6 cm) asc Aorta Diam: 2.9 cm(2.1-3.4cm) Doppler with Normals RVSP(TR): 41.3 mmHg? ? ? (18-35mmHg) LV V1 max: 67.9 cm/sec ? (0.7-1.7m/s)MV E max kinza: 102.0 cm/sec(0.8-1.3m/s) MV A max kinza: 56.6 cm/sec(0.0-0.0m/s) MV E/A: 1.8? (<1.5) MMode/2D Measurements & Calculations RVDd: 3.2 cm ? FS: 22.2 % ? ? ? Ao root area:? LVLd ap4: 6.7 cm TAPSE: 1.7 cm? EDV(Teich):? ? ? 6.1 cm2? EDV(MOD-sp4): ? 73.1 ml ? 62.6 ml ? ESV(Teich): ? LVLs ap4: 5.9 cm ? 40.1 ml ? ESV(MOD-sp4): ? EF(Teich): 45.2 % ? 28.5 ml ? EF(MOD-sp4): ? 54.5 % ? __ SV(MOD-sp4): 34.1 ml ? LAV(MOD-sp4):? ? LA A2 area: 19.7 cm2 RA Volume: ? 47.3 ml ? 48.6 ml ? LAV(MOD-sp2):? ? LA A4 area: 19.0 cm2 ? 54.8 ml? LA length (vol): ? 6.2 cm ? LA vol: 51.4 ml ? LA vol index: ? 30.4 ml/m2 ? __ RA Volume Index: 28.8 ml/m2 Doppler Measurements & Calculations MV dec time:? E/E' lat: 14.9? MV dec slope:? Ao V2 max: 0.11 sec? E/E' med: 22.0 ? 130.3 cm/sec ? 977.5 cm/sec2? Ao max P.8 mmHg ? Ao mean PG: ? 2.9 mmHg ? Ao V2 mean: ? 75.2 cm/sec ? Ao V2 VTI: 23.2 cm ? __ LV V1 max PG: ? ? ? TV max PG:? ? ? TR max kinza: 1.8 mmHg? 38.0 mmHg ? ? ? 309.5 cm/sec LV V1 mean PG:? TR max P.3 mmHg 0.81 mmHg ? RAP systole: 3.0 mmHg LV V1 mean: 51.1 cm/sec LV V1 VTI: 14.6 cm Data Tracing #4: Attestation: I reviewed this ECG and interpreted as documented below: ECG Narrative: Persistent 0.[address] elevation in inferior leads II, III and aVF with associatedpathologic Q waves in the same leads. Persistent T wave inversion in leads I, aVL and V2. All present and unchanged from prior tracings. A&P - Cardiology (1) A-fib: Assessment/Problem Details: Currently maintaining normal sinus rhythm with high fidelity. Code(s): I48.91 - Unspecified atrial fibrillation Status: Acute Plan: No systemic anticoagulation is recommended given the patient's recent GI bleed (2) Pacemaker: Assessment/Problem Details: Stable Code(s): Z95.0 - Presence of cardiac pacemaker Status: Acute Plan: No changes recommended presently. (3) Elevated troponin: Assessment/Problem Details: I do not see clinical evidence for or suspect significant coronary event patientdoes have known diffuse severe coronary heart disease that warranted coronary artery bypass grafting 30 years ago. Clinical scenario is most consistent with a small type II event for which the patient has ample cardiac substrate. Code(s): R77.8 - Other specified abnormalities of plasma proteins Status: Acute Plan: Recommend rest of cardiac risk factor modification and medical management of atherosclerotic cardiovascular disease and small type II NSTEMI. Do not recommend invasive management strategy (cardiac catheterization). (4) Abnormal ECG: Assessment/Problem Details: Patient's baseline ECG shows 0.5 mm of CORINA in the inferior leads with associatedQ waves. There is also T wave inversions in the anterolateral leads. These changes have remained static and unchanged on serial ECGs. Do not suspect active acute coronary syndrome. Code(s): R94.31 - Abnormal electrocardiogram [ECG] [EKG] Status: Acute Plan: Recommendations as above Plan Recommend focus on rehabilitation at this point as well as avoidance of agents that would exacerbate or cause recurrent GI bleed. Time spent with patient Time Spent With Patient (min): 30 Documented By: Paramjit Pride MD 06/10/22 1159 Signed By: <Electronically signed by Paramjit Pride MD> 06/10/22 [address] [facility] Work Phone: 1([phone]) 724-618512-28-2022 Progress note Author Nathaniel Castillo [facility] June 10, 2022 1:35pm Note Date/Time June 10, 2022 1:31pm [facility] [address] [place] [address] Progress Note Signed Patient: Abdirahman Gomez MR#: [id number] : 1940 Acct:[id number] Age/Sex: 81 / F Adm Date: 2 Loc: Room: [address] [place] [address] Type: ADM IN Attending Dr: Nathaniel Castillo MD Copies to: ~ Date of Service: 06/10/2022 Progress Narrative Note PROGRESS NOTE Progress Note: Patient did have some nausea this morning, now has a headache. Weakness in the left upper extremity is improved. Heart is regular, no gallop rub JVD Lungs minimal crackles in bases Abdomen soft benign Neurological no focal deficit Assessment and plan 1. Non-STEMI. Patient with known CAD status post remote CABG. Patient was seen by cardiology. She has declined invasive evaluation. She is being treated medically. I initiated antiplatelet and anticoagulant treatment. Further management in this regard to be addressed by cardiology service. Patient is on high intensity statin, beta-kirby, ARB, and nitrates as needed. Formal echocardiogram was read as preserved ejection fraction and normal wall motion abnormalities, but upon review from a different paper machine supervisor, it was noted that she has akinesis and thinning of the basal inferior wall of LV suggestive of a prior [place]. #2 atrial fibrillation. Patient had a small amount of GI bleed about 2 days ago. I believe this is fromdiverticulosis or possibly hemorrhoids. There is no ongoing evidence of GI blood loss. We will observe closely, and upon discharge she will readdress the issue of anticoagulant treatment. She may be a good candidate for Eliquis. Other chronic stable medical comorbidities include Hypertension Dyslipidemia Pacemaker in place Documented By: Nathaniel Castillo MD 06/10/22 1329 Signed By: <Electronically signed by Nathaniel Castillo MD> 06/10/22 [address] [facility] Work Phone: 1([phone]) 350-671612-27-2022 History and physical note Author Chema Milner [facility] June 09, 2022 8:18pm Note Date/Time June 09, 2022 4:14am [facility] [address] [place] [address] Hospitalist H&P Signed Patient: Abdirahman Gomez MR#: [id number] : 1940 Acct:[id number] Age/Sex: 81 / F Adm Date: 2 Loc: Room: [address] [place] [address] Type: ADM IN Attending Dr: Nathaniel Castillo MD Copies to: MD Chema Pham MD Douglas M Hoy, MD Samantha Mason, DO, RES~ HPI DATE OF EXAMINATION: 06/09/22 CHIEF COMPLAINT: Weakness HISTORY OF PRESENT ILLNESS: Patient is an 81-year-old female that is a transfer from [place] due to elevated troponins. Past medical history includes hypertension, hx CABG, presence of pacemaker, and paroxysmal atrial fibrillation. Patient had originally presented to the emergency room at [place] due to generalized weakness that started several days prior. She states she did slip off of her shower bench earlier in the morning but denies hitting her head or LOC. Patient also reportsshe noticed small amount of bright red blood in the toilet. She denies history of hemorrhoids. Patient does have history of diverticulitis. Denies abdominal pain, nausea/vomiting, dark tarry stools. She denies chest pain, jaw pain, chest tightness. She does report mild increase in her shortness of breath. In the emergency room, patient was hemodynamically stable. Patient was found to have some nonspecific EKG changes including moderate ST depression with left axis deviation. Initial troponin was 9,385. Repeat troponin 8,564. The case was discussed with Dr. Morton and not felt to be an acute ischemic event but was recommended that she be transferred to our facility. Stool occult positive. PT, PTT normal. WBC slightly elevated at 13. Hemoglobin 13.5, HCT 39.6, PLT 219. Upon my evaluation, patient reports early in the morning she noticed some new left arm weakness and numbness. Denies slurred speech, facial drooping. Review of Systems Review of Systems All other systems reviewed & are negative unless noted below or in HPI PMFSH Vaccinated for COVID-19?: Yes Medical History A-fib Hypercholesteremia Hypertension MRSA (methicillin resistant staph aureus) culture positive Pacemaker Surgical History History of heart bypass surgery History of total left hip arthroplasty Hx of appendectomy Hx of breast reduction, elective Previous back surgery Social History Smoking Status: Never smoker Substance Use Type: None Meds Medications and Allergies Allergies ciprofloxacin Allergy (Severe, Verified 06/09/22 04:31) Redness of Skin codeine Allergy (Mild, Verified 06/09/22 04:31) Itching Home Medications amlodipine 10 mg tablet 10 mg PO HS 06/09/22 [History Confirmed 06/09/22] ascorbic acid (vitamin C) 500 mg tablet (Vitamin C) 500 mg PO DAILY 06/09/22 [History Confirmed 06/09/22] biotin 10,000 mcg capsule 10,000 mcg PO DAILY 06/09/22 [History Confirmed 06/09/22] carvedilol 12.5 mg tablet 12.5 mg PO BID 06/09/22 [History Confirmed 06/09/22] cholecalciferol (vitamin D3) 125 mcg (5,000 unit) tablet (Vitamin D3) 125 mcg PODAILY 06/09/22 [History Confirmed 06/09/22] furosemide 20 mg tablet 20 mg PO DAILY 06/09/22 [History Confirmed 06/09/22] hydrocodone 5 mg-acetaminophen 325 mg tablet 1 tab PO Q12H PRN Pain 06/09/22 [History Confirmed 06/09/22] isosorbide mononitrate 60 mg tablet,extended release 24 hr 60 mg PO DAILY 06/09/22 [History Confirmed 06/09/22] magnesium chloride 64 mg (magnesium chloride) tablet 64 mg PO DAILY 06/09/22 [History Confirmed 06/09/22] montelukast 10 mg tablet 10 mg PO HS 06/09/22 [History Confirmed 06/09/22] omega-3 fatty acids-vitamin E 1,000 mg capsule 1 cap PO DAILY 06/09/22 [History Confirmed 06/09/22] omeprazole 40 mg capsule,delayed release 40 mg PO BID 06/09/22 [History Confirmed 06/09/22] potassium chloride 20 mEq tablet,extended release(part/cryst) (Klor-Con M) 40 meq PO DAILY 06/09/22 [History Confirmed 06/09/22] pramipexole 0.5 mg tablet 0.5 mg PO HS 06/09/22 [History Confirmed 06/09/22] rosuvastatin 5 mg tablet 5 mg PO HS 06/09/22 [History Confirmed 06/09/22] tizanidine 4 mg tablet 4 mg PO BID PRN Pain 06/09/22 [History Confirmed 06/09/22] Exam Physical Exam Vital Signs: Temp Pulse Resp BP Pulse Ox O2 Del Method 98.1 F 95 H 16 137/75 95 Room Air 06/09/22 03:10 06/09/22 03:10 06/09/22 03:10 06/09/22 03:10 06/09/22 03:10 06/09/22 03:10 Narrative: General: No acute distress. Resting comfortably in bed. HEENT: Atraumatic, normocephalic. conjunctivae clear. No scleral icterus. CV: Irregular no murmurs, rubs, or gallops Respiratory: Clear to auscultation bilaterally. No wheezes, rhonchi, rales Abdominal: Soft, nondistended, nontender normoactive bowel sounds. Extremities: No swelling, cyanosis, clubbing. No calf tenderness Neuro: No facial drooping noted. Patient noted to have left upper extremity weakness and decreased sensation. Psych: appropriate mood and affect, speech is clear A&P - Hospitalist Assessment/Plan (1) Elevated troponin: (2) A-fib: (3) Diverticulosis: (4) Pacemaker: (5) Hypertension: (6) Upper extremity weakness: Plan Elevated troponin -Significant heart history including coronary artery bypass and presence of pacemaker -EKG showed some ST depression and atrial fibrillation -Initial troponin 9,385. Repeat 8,564. -Reports some worsening shortness of breath over past weeks -Case was discussed with Dr. Morton while patient was at [facility]. It is not felt that patient is having acute ischemic event. -Cardiology consulted -Trend troponin every 3 hours -Continuous telemetry Diverticulosis Lower GI bleed -Stool occult positive -Patient reports small amount of bright red blood -Denies abdominal pain, nausea/vomiting -Hold off on any anticoagulation at the moment -Hemoglobin stable at 13.5, Hct 39.5 -Continue to monitor -Recheck CBC, BMP, Mg in AM Left upper extremity weakness -Patient states this started yesterday morning -Endorses numbness/decreased sensation, weakness on examination -No other deficits noted on examination -Patient would be outside window for tPA administration if this was possible stroke Chronic conditions: -Continue home medications as appropriate once verified Regular diet CODE STATUS: Full code DVT prophylaxis: SCDs I personally saw this patient on the day of the encounter, reviewed the history,performed the smith elements of the exam and formulated the plan of care and confirmed the nurse practitioners/residents/international trade teacher written note. Patient is a 81-year-old lady history of CAD status post CABG, hypertension, A. fib, presence of pacemaker presented to [facility] due to weakness and bloody stools. Patient has history of diverticulosis. Hemoglobin 13.5. Incidentally troponins were significantly elevated but patient did not have any cardiac complaints. EKG with no acute ischemic changes. EKG reviewed by paper machine supervisor, not felt to be an acute ischemic event and recommended transfer to [facility] for further evaluation and management. Patient upon arrival is asymptomatic. Patient is not a great historian. She has multiple vague complaints. She complains of ear pain, tooth ache, low back pain. She noted RN that she had some weakness in left upper extremity but is able to move her extremities without any difficulty. She currently denies any weakness, numbness. We will trend troponin. Consult cardiology. Manage pain. Continue home meds. DVT prophylaxis Documented By: Rossi Valdez DO, RES 06/09/22 041 Signed By: <Electronically signed by DO RYAN Valdez> 06/09/22 0609 <Electronically signed by Chema Milner MD> 06/09/222017 [facility] Work Phone: [phone] 651-231412-27-2022 Consult note Author Paramjit Pride [facility] June 09, 2022 3:21pm Note Date/Time June 09, 2022 3:16pm [facility] [address] [place] [address] Cardiology Consult Note Signed Patient: Abdirahman Gomez MR#: [id number] : 1940 Acct:[id number] Age/Sex: 81 / F Adm Date: 2 Loc: Room: [address] [place] [address] Type: ADM IN Attending Dr: Nathaniel Castillo MD Copies to: MD Irish Pham MD Stephen M Tann, MD~ Cardiology HPI History of Present Illness Consult Date: 06/09/22 Reason for Consult: Abnormal ECG Elevated serum troponin Known history of coronary heart disease status post remote CABG HPI: Ms. Gomez is a 81 year old female with history of CAB x3 done approximately 30years ago in [place] who was transferred to our facility from 2days ago after presenting complaining of generalized weakness but more pronounced weakness of the left arm and hand. The patient states she been feeling more weak and fatigued than normal over the preceding 10 days or so prior to her presentation. On the day that she presented to [facility] she noted that she felt very weak while in her shower. She felt like her left hand was numb and would not work. She apparently had aminor fall but suffered no injury with such. However EMS was activated. The patient was taken to [facility] emergency department for evaluation. In the ER at [facility] EKG was suspicious for ST segment elevation in the inferior leads. I was sent this ECG. The changes on her ECG when compared to prior tracings appeared chronic. There was ST elevation/J-point elevation in the inferior leads. But these elevations were all associated with pathologic Q waves were unchanged from prior ECGs, and were not dynamic on serial ECGs. The patient was treated medically for acute coronary syndrome. She was anticoagulated and she was sent to [facility] for furtherevaluation. Since being here [facility] patient has had a mild increase in her serum troponin which is now decreasing. Her ECG has remained unchanged. She continues to deny any chest pain or any other active anginal symptoms. Bedside echocardiogram has showed akinesis and thinning of the basal inferior wall of the left ventricle. Otherwise there is normal regional wall motion and systolic function to the left ventricle with an ejection fraction estimated at 50 to 55%. Given the patient's abnormal ECG and abnormal serum troponins I am now consultedfor further cardiac evaluation and management. Review of Systems Review of Systems All other systems reviewed & are negative unless noted below or in HPI PMFSH Vaccinated for COVID-19?: Yes Medical History A-fib Hypercholesteremia Hypertension MRSA (methicillin resistant staph aureus) culture positive Pacemaker Surgical History History of heart bypass surgery History of total left hip arthroplasty Hx of appendectomy Hx of breast reduction, elective Previous back surgery Social History Smoking Status: Never smoker Substance Use Type: None Meds Medications and Allergies Allergies ciprofloxacin Allergy (Severe, Verified 06/09/22 04:31) Redness of Skin codeine Allergy (Mild, Verified 06/09/22 04:31) Itching Home Medications amlodipine 10 mg tablet 10 mg PO HS 06/09/22 [History Confirmed 06/09/22] ascorbic acid (vitamin C) 500 mg tablet (Vitamin C) 500 mg PO DAILY 06/09/22 [History Confirmed 06/09/22] biotin 10,000 mcg capsule 10,000 mcg PO DAILY 06/09/22 [History Confirmed 06/09/22] carvedilol 12.5 mg tablet 12.5 mg PO BID 06/09/22 [History Confirmed 06/09/22] cholecalciferol (vitamin D3) 125 mcg (5,000 unit) tablet (Vitamin D3) 125 mcg PODAILY 06/09/22 [History Confirmed 06/09/22] furosemide 20 mg tablet 20 mg PO DAILY 06/09/22 [History Confirmed 06/09/22] hydrocodone 5 mg-acetaminophen 325 mg tablet 1 tab PO Q12H PRN Pain 06/09/22 [History Confirmed 06/09/22] isosorbide mononitrate 60 mg tablet,extended release 24 hr 60 mg PO DAILY 06/09/22 [History Confirmed 06/09/22] magnesium chloride 64 mg (magnesium chloride) tablet 64 mg PO DAILY 06/09/22 [History Confirmed 06/09/22] montelukast 10 mg tablet 10 mg PO HS 06/09/22 [History Confirmed 06/09/22] omega-3 fatty acids-vitamin E 1,000 mg capsule 1 cap PO DAILY 06/09/22 [History Confirmed 06/09/22] omeprazole 40 mg capsule,delayed release 40 mg PO BID 06/09/22 [History Confirmed 06/09/22] potassium chloride 20 mEq tablet,extended release(part/cryst) (Klor-Con M) 40 meq PO DAILY 06/09/22 [History Confirmed 06/09/22] pramipexole 0.5 mg tablet 0.5 mg PO HS 06/09/22 [History Confirmed 06/09/22] rosuvastatin 5 mg tablet 5 mg PO HS 06/09/22 [History Confirmed 06/09/22] tizanidine 4 mg tablet 4 mg PO BID PRN Pain 06/09/22 [History Confirmed 06/09/22] Exam Physical Exam Vital Signs: Temp Pulse Resp BP Pulse Ox O2 Del Method O2 Flow Rate 98.1 F 77 18 154/67 H 94 L Nasal Cannula 2 06/09/22 06:11 06/09/22 07:54 06/09/22 07:54 06/09/22 07:54 06/09/22 07:54 06/09/22 07:54 06/09/22 07:54 Const General: cooperative, healthy appearing, comfortable and no acute distress Nutritional Appearance: well nourished Orientation: alert, awake and oriented x3 HEENT Head: normocephalic Eyes Conjunctivae: conjunctivae normal Sclera: sclerae normal Pupils: PERRL and accommodation normal Direct ophthalmoscopy: no photophobia Neck Neck: no lymphadenopathy and supple Neck mass: No Thyroid: thyroid normal Carotids: normal carotid upstroke Lymphatic: no lymphadenopathy noted Chest Chest palpation & inspection: normal inspection of the chest Resp Effort & Inspection: normal respiratory effort, able to speak in complete sentences and symmetric chest movement Auscultation: clear to auscultation bilaterally Cardio Jugular venous pressure: no JVD Palpation: normal PMI Rate: regular rate Rhythm: regular rhythm Heart Sounds: S1 normal, S2 normal, gallop S4 gallop and murmur systolic holo, I/ and at the apex Pulses: brachial pulses present, posterior tibial pulses present and dorsalis pedis present GI Inspection: normal to inspection Palpation: soft and no hepatosplenomegaly Skin General: no rashes or lesions noted Trauma: no lacerations or abrasions Wounds: no wounds Neuro General: patient alert, patient awake, patient oriented x3, moves all extremities and no focal motor deficits Cranial Nerves: CN's II-XII intact bilaterally Cognition: normal cognition Speech: speech normal Motor: muscle tone normal throughout Sensory Exam: no sensory deficits noted Extrem General: no clubbing, cyanosis or edema Psych Mood: congruent mood Affect: normal affect Speech and Movement: speech and movement normal Attitude: cooperative Thought Process: normal Thought Content: normal Insight: insight good Judgment: judgment good RANJITH Risk Score RANJITH Risk Score Predictor Historical: Age > 65 Years Old, 3 or more Risk Factors: FHx,HTN,elevated cholesterol,DM,active smoker, Known CAD Stenosis >/=50% and ASA use in Past 7 Days Presentation: Increased Cardiac Marker and ST Deviation >/=0.05mV Score Risk Score (0-7): 6 Results Labs CBC & CMP: 06/09/22 05:13 06/09/22 05:13 Lab results: CBC 06/09/22 Range/Units 05:13 RBC 3.96 (3.60-5.00) X10E6/uL Hgb 13.6 (11.8-15.4) g/dL Hct 41.0 (34.0-46.4) % Plt Count 199 (150-450) x10E3/uL Neut # (Auto) 9.5 H (1.8-7.7) x10E3/uL Lymph # (Auto) 2.3 (1.00-4.8) x10E3/uL Guthrie # (Auto) 1.3 H (0.0-0.8) x10E3/uL Eos # (Auto) 0.1 (0.0-0.45) x10E3/uL Baso # (Auto) 0.1 (0.0-0.2) x10E3/uL Comprehensive Metabolic Panel 06/09/22 Range/Units 05:13 Sodium 137 (136-146) mmol/L Potassium 4.0 (3.5-5.1) mmol/L Chloride 106 (95-114) mmol/L Carbon Dioxide 21.6 L (22.0-30.0) mmol/L BUN 9 (9-23) mg/dL Creatinine 0.76 (0.44-1.03) mg/dL Glucose 136 H (70-100) mg/dL Calcium 8.9 (8.2-10.2) mg/dL Intake and Output 06/08/22 06/09/22 06/09/22 23:59 07:59 15:59 Intake Total 320 / 720 400 / 720 Balance 320 / 720 400 / 720 Intake: Oral 320 / 720 400 / 720 Other: # Unmeasured Voids 1 2 # Bowel Movements 0 Weight 68.2 kg Date of Last Bowel Movement 06/08/22 Patient Weight 06/09/22 23:59 Weight 68.2 kg EKG Interpretations Dysrhythmias Sinus rhythms and dysrhythmias: sinus rhythm Blocks, axis, hypertrophy, ST abn AV and intraventricular conduction: 1 AV block [place], pacemaker, normal Myocardial infarction: inferior [place] (old age indeterminate) Normal tracing: no change compared to previous tracing A&P - Cardiology (1) Elevated troponin: Assessment/Problem Details: Without symptoms consistent with acute coronary syndrome/angina pectoris. In the setting of known coronary heart disease status post remote CABG. Do not suspect an acute type I event with mild increased troponin which is now trendingdownward. Patient asymptomatic at this point from a cardiac standpoint. NormalLV function by echocardiography. 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 This would correspond and correlate with the patient's ECG findings of pathologic Q waves inferiorly with persistent nondynamic ST elevation. Plan: Recommendations: 1. Do not recommend invasive diagnostic or treatment strategy. The patient does not desire invasive procedures such as cardiac catheterization and I am inclined to agree with her. 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 2. Continue amlodipine 10 mg nightly 3. Continue carvedilol 12.5 mg p.o. twice daily for beta-blockade. If the patient does have room in terms of heart rate and blood pressure we can considerincreasing this to 25 mg twice daily 3. Continue statin therapy with rosuvastatin 5 mg daily 4. Continue isosorbide mononitrate 60 mg daily 5. It appears the patient could benefit from inpatient and then very likely outpatient physical therapy. Code(s): R77.8 - Other specified abnormalities of plasma proteins (2) Abnormal ECG: Assessment/Problem Details: With persistent ST elevation in the inferior leads with associated pathologic Q waves. This corresponds to akinetic thinned basal inferior wall on echocardiogram. 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 Plan: Recommendations as above to follow conservative management pathway. Code(s): R94.31 - Abnormal electrocardiogram [ECG] [EKG] Plan Thank you very much for this kind consultation and for allowing me to participate in the care of this delightful patient. Pending a favorable clinical evolution following hospital discharge she can follow-up with her primary paper machine supervisor in [facility]. Documented By: Paramjit Pride MD 06/09/22 1508 Signed By: <Electronically signed by Paramjit Pride MD> 06/09/22 1522 [facility] Work Phone: 1(705) 738-984812-27-2022 Progress note Author Nathaniel Castillo [facility] June 09, 2022 3:06pm Note Date/Time June 09, 2022 1:59pm [facility] [address] [place] [address] Hospitalist Progress Note Signed Patient: Abdirahman Gomez MR#: [id number] : 1940 Acct:[id number] Age/Sex: 81 / F Adm Date: 2 Loc: Room: [address] [place] [address] Type: ADM IN Attending Dr: Nathaniel Castillo MD Copies to: ~ Date of Service: 06/09/2022 Subjective Subjective Narrative: Attending note: I saw the patient personally on the day of encounter. I reviewed the relevant history, and performed the smith elements of the physical examination. I reviewedthe relevant laboratory workup, radiological studies and the current treatment plan. I formulated the plan of care and confirmed it with the resident/student/JUNIOR DESIGNER. Patient resting in bed comfortably. Denies chest pain, admits to some shortnessof breath. Not currently requiring oxygen. Admits to some nausea as well as she had to take a couple big pills and attributes this to that. Exam Physical Exam Vital Signs: Temp Pulse Resp BP Pulse Ox O2 Del Method O2 Flow Rate 98.1 F 77 18 154/67 H 94 L Nasal Cannula 2 06/09/22 06:11 06/09/22 07:54 06/09/22 07:54 06/09/22 07:54 06/09/22 07:54 06/09/22 07:54 06/09/22 07:54 Narrative: CONSTITUTIONAL: No apparent distress HEAD: Normocephalic, atraumatic EYES: EOMI, pupils equal and reactive, conjunctiva normal RESPIRATORY: No distress, lungs clear bilaterally, symmetric chest rise, no wheezes/rales/rhonchi CARDIOVASCULAR: Regular rate and regular rhythm, no murmurs, symmetric palpable radial and dorsalis pedis pulses ABDOMEN: Soft, non-tender, non-distended, normal bowel sounds SKIN: Intact, no rash, no trauma NEURO: Cranial nerves grossly intact, +3 out of 5 strength on left hand retail clerk, full strength with flexion and extension of upper extremity compared to the right PSYCHIATRIC: Normal affect Objective Lab Results CBC & Chem 7: 06/09/22 05:13 06/09/22 05:13 Meds Allergies and Active Meds Allergies ciprofloxacin Allergy (Severe, Verified 06/09/22 04:31) Redness of Skin codeine Allergy (Mild, Verified 06/09/22 04:31) Itching Active Meds: Active Medications Generic Name Dose Route Start Last Admin Trade Name Freq PRN Reason Stop Dose Admin Acetaminophen 650 mg 06/09/22 04:09 06/09/22 04:51 Acetaminophen 325 Mg Tablet PO 06/09/23 04:08 650 mg Q4H PRN Administration Pain Hydrocodone Bitart/Acetaminophen 1 tab 06/09/22 04:43 06/09/22 09:29 Hydrocodone/Acetaminophen 5-325 Mg Tablet PO 1 tab Q4H PRN Administration Pain Scale 4 - 7 Amlodipine Besylate 10 mg 06/09/22 22:00 Amlodipine 10 Mg Tablet PO 06/09/23 21:59 HS JAK Atorvastatin Calcium 40 mg 06/09/22 22:00 Atorvastatin 40 Mg Tablet PO 06/09/23 21:59 HS [facility] Carvedilol 12.5 mg 06/09/22 08:00 06/09/22 09:29 Carvedilol 12.5 Mg Tablet PO 06/09/23 07:59 12.5 mg BID.WITH.MEALS JAK Administration Furosemide 20 mg 06/09/22 09:00 06/09/22 09:29 Furosemide 20 Mg Tablet PO 06/09/23 08:59 20 mg DAILY JAK Administration Isosorbide Mononitrate 60 mg 06/09/22 09:00 06/09/22 09:30 Isosorbide Mononitrate 24hr Er 60 Mg Tab.Er.24h PO 06/09/23 08:59 60 mg DAILY JAK Administration Magnesium Oxide 200 mg 06/09/22 09:00 06/09/22 09:30 Magnesium Oxide 400 Mg Tablet PO 06/09/23 08:59 200 mg DAILY JAK Administration Melatonin 5 mg 06/09/22 04:43 Melatonin 5 Mg Tablet PO 06/09/23 04:42 QHS PRN Insomnia Montelukast Sodium 10 mg 06/09/22 22:00 Montelukast 10 Mg Tablet PO 06/09/23 21:59 HS [facility] Omeprazole 40 mg 06/09/22 09:00 06/09/22 09:30 Omeprazole 20 Mg Capsule.Dr PO 06/09/23 08:59 40 mg BID JAK Administration Ondansetron HCl 4 mg 06/09/22 04:43 06/09/22 12:20 Ondansetron 4 Mg/2 Ml Vial IV-PUSH 06/09/23 04:42 4 mg Q8H PRN Administration Nausea And Vomiting Potassium Chloride 40 meq 06/09/22 09:00 06/09/22 09:30 Potassium Chloride Er 20 Meq Tab.Er.Prt PO 06/09/23 08:59 40 meq DAILY JAK Administration Pramipexole Dihydrochloride 0.5 mg 06/09/22 22:00 Pramipexole 0.5 Mg Tablet PO 06/09/23 21:59 HS [facility] Tizanidine HCl 4 mg 06/09/22 04:53 Tizanidine 4 Mg Tablet PO 06/09/23 04:52 BID PRN Pain A&P - Hospitalist Assessment/Plan (1) Elevated troponin: (2) A-fib: (3) Pacemaker: (4) Hypertension: (5) Upper extremity weakness: Plan Non-STEMI Troponin elevation and ischemic EKG changes are consistent with this diagnosis. Patient has a history of coronary artery bypass history and presence of pacemaker Initial troponin 9385, repeat 8564, repeat 6373 Dr. Morton felt that no acute intervention required per overnight hospitalist Cardiology consulted, pending evaluation Continuous telemetry Will switch statin to Lipitor 40 mg for high dose Echo pending Possible lower GI bleed, macrocytic anemia Stool occult positive Patient does report small amount of bright red blood that happened once Does have history of diverticulosis Denies abdominal pain, vomiting, recent constipation Hemoglobin stable at 13.5, continue to monitor Will check B12, folate There is no contraindication to proceed with cardiac evaluation from this standpoint Left upper extremity weakness Does wax and wane based on patient and examination Only has decreased strength in retail clerk on the left upon my exam Denies any sensory deficits Patient states this started yesterday No history of stroke Chronic conditions: A. fib, hyperlipidemia, hypertension, pacemaker status post CABG Diet: Regular DVT prophylaxis: SCDs CODE STATUS: Full Documented By: Marta Juarez DO, RES 06/09/22 1 354 Signed By: <Electronically signed by DO RYAN Juarez> 06/09/22 1403 <Electronically signed by Nathaniel Castillo MD> 06/09/22 1506 [facility] Work Phone: [phone]) 579-787906-15-2022 NoteMR#: [id number] I [facility] Pt. Name: Abdirahman Gomez Admitted: 11/22/2021 Discharged: 11/25/2021 Date of : 1940 Physician: Bridger Montana MD DISCHARGE SUMMARY CONSULTING SERVICE: Cardiology Service. PRINCIPAL DIAGNOSIS: Symptomatic bradycardia. SECONDARY DIAGNOSES: 1. Coronary artery disease, status post CABG. 2. Hypertension. 3. Hyperlipidemia. 4. Bilateral . 5. Gastroesophageal reflux disease. 6. Restless legs syndrome. PROCEDURES PERFORMED: Permanent pacemaker placement on 11/24. HOSPITAL COURSE: The patient is an 81-year-old female who presented to [facility] with chief complaint of symptomatic bradycardia that was found at outside facility. She was found to have heart rate of 33. Cardiology service was consulted and recommended permanent pacemaker placement. AV node blockers were discontinued when she was admitted. The patient underwent permanent pacemaker with Interventional Cardiology team and tolerated procedure well. Postoperatively, she had chest x-ray, which did not reveal any acute pathology including no pneumothorax. She is cleared for discharge by Cardiology team and the patient was eventually discharged. The patient's electrolyte abnormalities were corrected daily during hospital stay. DISCHARGE INSTRUCTIONS: The patient instructed to follow up with PCP within 1 week. The patient instructed to follow up with Cardiology team as outpatient. The patient instructed to seek immediate medical attention if signs or symptoms of ACS occur. The patient voiced understanding. DISCHARGE MEDICATIONS: As per discharge medication paperwork. Electronically Signed by: Bridger Montana MD 11/27/2021 02:18 P Bridger Montana MD .. Date Dict: 11/25/2021/01:05 P/Elijah Mcfadden PA-C Date Trans: 11/26/2021 06:47 A/daniel [id number] cc: Irish Faustin M.D. [address] [id number] [facility] [address] Diagnosis Onset Date Resolution Status A-fib acute Abnormal ECG acute Constipation acute Diverticulosis acute Elevated troponin acute Embolic stroke acute Hypertension acute Pacemaker acute Paroxysmal atrial fibrillation acute Upper extremity weakness acu te [facility] Work Phone: Evaluation note* Diagnosis Onset Date Resolution Status A-fib acute Abnormal ECG acute Constipation acute Diverticulosis acute Elevated troponin acute Embolic stroke acute Hypertension acute Pacemaker acute Paroxysmal atrial fibrillation acute Upper extremity weakness acu te A-fib acute Anxiety acute Carotid stenosis acute Chronic pain acute Elevated troponin acute Embolic stroke acute Hypertension acute Impaired mobility and activities of daily living acute Pacemaker acute Paroxysmal atrial fibrillation acute [facility] Work Phone: Hospital Discharge instructions Additional Instructions REHAB TO MANAGE: PT/OT to eval and treat Monitor VS per protocol Monitor FSBS BID Maintain high risk fall precautions Care to be managed by Rehab providers I may not have addressed or treated all of your medical illnesses or the abnormal blood work or imaging studies during this hospitalization. Please ask your primary care provider to obtain [facility] records entirely to follow up on all of the abnormal physical, laboratory, and imaging findings that I have not addressed. Please return back to the emergency room or seek medical attention if your symptoms worsen or return. Discharging you from [facility] does not mean that your medical care ends here and now. You may still need additional monitoring, work up, investigation, and treatment plan to be handled from this point on by out patient providers including your primary care provider and specialists. For any medication question, please contact your retail pharmacist or your primary care provider. Thank you.[facility] Work Phone: Summary Purpose Family History No Family History Records FoundNo Family History Records FoundNo Family History Records FoundNo Family History Records FoundNo Family History Records Found Advance Directives No Advanced Directives Records Found Advance Directive Response Recorded Date/ Time Advance Directives No May 1:16am Chief Complaint and Reason for Visit Chief Complaint GI Bleed/Elevated Tr oponin Reason for Visit A-fib Abnormal ECG Constipation Diverticulosis Elevated troponin Embolic stroke Hypertension Pacemaker Paroxysmal atrial fibrillation Upper extremity weakness Chief Complaint GI Bleed/Elevated Tr oponin CVA Reason for Visit A-fib Abnormal ECG Constipation Diverticulosis Elevated troponin Embolic stroke Hypertension Pacemaker Paroxysmal atrial fibrillation Upper extremity weakness A-fib Anxiety Carotid stenosis Chronic pain Elevated troponin Embolic stroke Hypertension Impaired mobility and activities of daily living Pacemaker Paroxysmal atrial fibrillation Additional Source Comments INFORMATION SOURCE (unrecogn ized section and content) DATE CREATED AUTHOR 12/03/2021 [facility] DATE CREATED AUTHOR AUTHOR'S ORGANIZ ATION 06/16/2022 [facility] DATE CREATED AUTHOR AUTHOR'S ORGANIZ ATION 07/18/[address] [facility] DATE CREATED AUTHOR AUTHOR'S ORGANIZ ATION 08/03/2022 [facility] DATE CREATED AUTHOR AUTHOR'S ORGANIZ ATION 05/20/2023 [facility] Care Teams (unrecognized sec tion and content) Team Status: Inactive Member Role Status Dates Irish Faustin MD Primary Care Provider Active Chema Milner MD Admit Provider Active Frida De La Cruz MD Attending Provider Active Team Status: Active Member Role Status Dates Irish Faustin MD Primary Care Provider Active Team Status: Inactive Member Role Status Dates Irish Faustin MD Primary Care Provider Active Stiven Zaman MD Admit Provider, Attending Provider Ismael Santillan , PARISA Other Provider Active Leta Calle , PARISA Other Provider Active Faina Shah , PARISA Other Provider Active Kell Nettles , PARISA Other Provider Active Leilani Nick , PARISA Other Provider Active Amina Aguiar RN Other Provider Active Frida De La Cruz MD Other Provider Active Josue Espitia MD Other Provider Active Ramila Wallace , AGRICULTURAL EDUCATION PROFESSOR Other Provider Active Dewayne Rader , DO Other Provider Active Quinton Montana MD Other Provider Active Quinn Ortiz , DO Other Provider Active Nathaniel Castillo MD Other Provider Active Grace Greene MD Other Provider Active Nadine Cazares , ANP-BC Other Provider Active Aminata Pedraza MD Other Provider Active Boaz Castro MD Other Provider Active Jose Martin Lou MD Other Provider Active Olesya Toth MD Other Provider Active Demetrius Gutierrez , DO Other Provider Active Hortencia Daigle MD Other Provider Active Alex Dominguez MD Other Provider Active Devora Restrepo , JUNIOR DESIGNER-C Other Provider Active Ga Kwong MD Other Provider Active Maurilio Banks MD Other Provider Active Chema Milner MD Other Provider Active Herminia Andrew , DO Other Provider Active Johnny Benson , DO Other Provider Active Rober Perez , DO Other Provider Active Brandi Cifuentes AGRICULTURAL EDUCATION PROFESSOR Other Provider Active Devante Lafleur , DO Other Provider Active Malu Roblero MD Other Provider Active Monisha Thompson AGRICULTURAL EDUCATION PROFESSOR Other Provider Active Meghna Arcos , PARISA Other Provider Active FOR RECORDS PERTAINING TO PATIENTS WHO ARE OR HAVE BEEN ENROLLED IN A CHEMICAL DEPENDENCY/SUBSTANCEABUSE PROGRAM, SOME INFORMATION MAY BE OMITTED. This clinical summary was aggregated from multiple sources. Caution should be exercised in using it in the provision of clinical care. This summary normalizes information from multiple sources, and as a consequence, information in this document may materially change the coding, format and clinical context of patient data. In addition, data may be omitted in some cases. CLINICAL DECISIONS SHOULD BE BASED ON THE PRIMARY CLINICAL RECORDS. [facility] provides no warranty or guarantee of the accuracy or completeness of information in this document.
[2023-07-14 14:16] LABS: Basophils Absolute Auto 0.1 10^3/uL (0.0-0.1); Basophils Percent Auto 0.6 % (0.2-2.0); Eosinophils Absolute Auto 0.2 10^3/uL (0.0-0.7); Eosinophils Percent Auto 1.4 % (0.9-7.0); Hematocrit 42.4 % (36.0-48.0); Hemoglobin 13.9 g/dL (12.0-16.0); Immature Granulocytes Abs Auto 0.13 10^3/uL (0.00-0.03); Lymphocytes Absolute Auto 2.9 10^3/uL (1.2-3.8); Lymphocytes Percent Auto 22.8 % (20.5-60.0); Mean Corpuscular HGB Conc 32.8 g/dL (29.9-35.2); Mean Corpuscular Hemoglobin 34.6 pg (26.7-34.0); Mean Corpuscular Volume 105.5 fL (81.0-99.0); Mean Platelet Volume 9.5 fL (9.5-13.5); Monocytes Absolute Auto 0.9 10^3/uL (0.3-0.8); Monocytes Percent Auto 7.4 % (1.7-12.0); Neutrophils Absolute Auto 8.4 10^3/uL (1.4-6.5); Neutrophils Percent Auto 66.8 % (43.0-75.0); Platelet Count 284 10^3/uL (150-450); Red Blood Count 4.02 10^6/uL (4.20-5.40); Red Cell Distribution Width 13.4 % (11.0-15.0); White Blood Count 12.5 10^3/uL (4.0-11.0)
[2023-07-14 15:50] LABS: Alanine Aminotransferase 27 U/L (14-59); Albumin Globulin Ratio 0.9; Albumin Level 3.7 g/dL (3.4-5.0); Alkaline Phosphatase 129 U/L (46-116); Anion Gap 10.2; Aspartate Amino Transferase 29 U/L (15-37); BUN Creatinine Ratio 13.6; Bilirubin Total 0.4 mg/dL (0.2-1.0); Calcium 9.4 mg/dL (8.5-10.1); Carbon Dioxide 22.8 mmol/L (21.0-32.0); Chloride 97 mmol/L (98-107); Estimated GFR (African America >60 (>=60); Estimated GFR (Non-African Ame >60 (>=60); Free T3 3.65 pg/mL (2.18-3.98); Globulin 4.3 g/dL; Glucose 107 mg/dL (74-106); HDL Cholesterol 69 mg/dL (40-60); Sodium 126 mmol/L (136-145); Triglycerides 130 mg/dL (<=150)
[2023-07-14 16:00] LABS: Estimated Average Glucose 111 mg/dL; Glycohemoglobin A1C 5.5 % (4.5-6.2)
[2023-07-14 16:04] LABS: Cholesterol 184 mg/dL (<=200)
[2023-07-14 16:27] LABS: Chol HDL Ratio 2.7
[2023-07-15 11:09] LABS: Insulin 14.3 uIU/mL (2.6-24.9)
== END 2023-07-14 12:22 | disposition home or self-care (01) ==
LOC: LAB 12:22
PROVIDERS: PCP Family Medicine; Visit Provider Family Medicine
DX: I48.0 Paroxysmal atrial fibrillation (principal); I25.10 Atherosclerotic heart disease of native coronary artery without angina pectoris; G47.00 Insomnia, unspecified; E78.5 Hyperlipidemia, unspecified; R73.09 Other abnormal glucose; D64.9 Anemia, unspecified; E55.9 Vitamin D deficiency, unspecified; I10 Essential (primary) hypertension
CPT/HCPCS: 36415; 80053; 80061; 82306; 83036; 83525; 83540; 83880; 84436; 84443; 84481; 85025

== ENCOUNTER 2023-07-20 12:54 | Outpatient (OUT) | payer MEDICARE, OTHER, SELFPAY ==
--- OUTSIDE RECORDS SUMMARY | 2023-07-20 13:02 | XMS_ITS | CCD ---
Author Name Unknown Address [address] [place] [address] Organization [facility] Care Team Providers Care Learning And Development Manager Name Role Phone UNKNOWN, PHYSICIAN Referring Unavailable BRIDGER MONTANA Attending Unavailable KIM ARCE Admitting Unavailable IRISH FAUSTIN Primary Care Unavailable RAMIN, DR COBURN Admitting Unavailable RAMIN, DR COBURN Attending Unavailable WHITLEYY, DR COBURN Primary Care Unavailable WHITLEYY, DR COBURN Consulting Unavailable RAMIN, DR COBURN Admitting Unavailable RAMIN, DR COBURN Attending Unavailable RAMIN, DR COBURN Primary Care Unavailable RAMIN, DR COBURN Consulting Unavailable BROKAW, DR BRIE Oseguera Consulting Unavailable VENUS TONG Admitting Unavailable VENUS TONG Attending Unavailable RAMIN, DR COBURN Primary Care Unavailable VENUS TONG Consulting Unavailable RAMIN, DR COUBRN Primary Care Unavailable TERESA, DR JOSEPH Palacios Consulting Unavailable TERESA, DR JOSEPH Palacios Admitting Unavailable TERESA, DR JOSEPH Palacios Attending Unavailable VENUS TONG Admitting Unavailable VENUS TONG Attending Unavailable RAMIN, DR COBURN Primary Care Unavailable VENUS TONG Admitting Unavailable VENUS TONG Attending Unavailable RAMIN, DR COBURN Primary Care Unavailable MD Irish Faustin Primary Care Provider MD Chema Milner Admit Provider MD Frida De La Cruz Attending Provider MD Stiven Zaman Admit Provider MD Stiven Zaman Attending Provider PARISA Santillan Other Provider Unavailable PARISA Calle Other Provider Unavailable PARISA Shah Other Provider Unavailable PARISA Nettles Other Provider Unavailable PARISA Nick Other Provider Unavailable PARISA Aguiar Other Provider Unavailable MD Frida De La Cruz Other Provider MD Josue Espitia Other [...] Provider MD Chema Milner Other Provider DO Hermiina Andrew Other Provider DO Johnny Benson Other [...] Unavailable Frida De La Cruz Consulting Unavailable NupurJosue K Consulting Unavailable Ramila Wallace M Consulting [...] Adhesive agent Drug allergy (disorder) 9 [facility] (3 sources) Ciprofloxacin Drug Allergy 6 [facility] (5 sources) Codeine; Translations: [CODEINE] Drug Allergy 9 Itching [facility] (1 source) paper tape; Translations: [paper tape] Propensity to adverse reactions (disorder) 2 [facility] (1 source) Desonide Drug Allergy [facility] (4 sources) Ciprofloxacin; Translations: [ciprofloxacin] Drug Allergy 2 Redness of Skin [facility] (1 source) Codeine Drug Allergy 2 [facility] Repository (1 source) rosuvastatin; Translations: [ROSUVASTATIN] Drug Allergy [facility] (1 source) ADHESIVE TAPE-SILICONES; Translations: [ADHESIVE TAPE-SILICONES] Propensity to adverse reactions to drug (disorder) 5 [facility] Medications Current Medications Medication Drug [...] June 16, 2022 10:52am polyethylene glycol 3350 67310 mg powder for oral solution (3 sources) [...] Start: 06-14-2022 take 2 tablets by mo [facility] twice daily Sennosides (Senna Lax) 8.6 mg [...] (2 sources) Start: 06-09-2022 End: 06-16-2022 take 17913 ug by mouth once daily Biotin Discontinued 73830 MCG PO Daily June 09, 2022 12:00am June 16, 2022 10:52am Magnesium Chloride (2 sources) Start: 06-09-2022 End: 06-16-2022 take 64 mg by mouth once daily Magnesium Chloride Discontinued 64 MG PO Daily June 09, 2022 12:00am June 16, 2022 10:52am [place]-3 Fatty Acids-Vitamin E (Fish Oil) 1,000 mg Capsule (2 sources) Start: 06-09-2022 End: 06-16-2022 take 1 capsule by mouth once daily [place]-3 Fatty Acids-Vitamin E (Fish Oil) 1,000 mg [...] disease (5 sources) Atherosclerotic heart disease of [place] coronary artery without angina pectoris; Translations: [Atherosclerotic heart disease of [place] coronary artery with unstable angina pectoris] Onset: [...] 3 Chronic Other aftercare (1 source) 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; Translations: [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 THERAPY] Onset: 3 Episodic Other aftercare (1 source) 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; Translations: [CLEANING PROFESSIONAL CURRENT USE OF ASPIRIN] Onset: 3 Episodic [...] Range Facility Office Visiton 03-17-2023 Follow-up visit [id number] Abdirahman Gomez 1940 F Date Provider Department Center 03/17/2023 Monico-[place] SANTOS BRIA Cantu Family History Problem Relation Age of Onset Aneurysm Mother Alcohol abuse Father Family Status - Relation Status Age at Mother Father Level of Service:26141 MT OFFICE/OUTPATIENT ESTABLISHED MOD MDM 30-39 MIN [facility] Office Visiton 12-28-2022 Follow-up visit [id number] Abdirahman Gomez 1940 F Date Provider Department Center 12/28/2022 JAILYN CHAMBERLAIN BRIA [facility] Family History Problem Relation Age of Onset Aneurysm Mother Alcohol abuse Father Family Status - Relation Status Age at Mother Father Level of Service:26553 MT OFFICE/OUTPATIENT ESTABLISHED MOD MDM 30-39 MIN Reason for Visit and Comments: Follow-up [154729] - 6 month follow up / echo result Normal [facility] Telemedicineon 07-08-2022 Telemedicine [id number] Abdirahman Gomez 1940 F Date Provider Department Center 07/08/2022 271-[place] SANTOS CARD [facility] Family History Problem Relation Age of Onset Aneurysm Mother Alcohol abuse Father Family Status - Relation Status Age at Mother Father Level of Service:28210 MT OFFICE/OUTPATIENT ESTABLISHED SF MDM 10-19 MIN Normal [facility] Basic Metabolic Panelon 06-14 Anion gap [Moles/Vol] 16.1 mmol/L High 6.0-15.0 [facility] Comment on above: Performed By: #### C BC, BMP #### [facility] [address] [place] [address] [place] Calcium [Mass/Vol] 9.4 mg/dL Normal 8.2-10.2 [facility] Comment on above: Performed By: #### C BC, BMP #### [facility] [address] [place] [address] [place] Chloride [Moles/Vol] 102 mmol/L Normal 95-114 [facility] Comment on above: Performed By: #### C BC, BMP #### [facility] [address] CO2 [Moles/Vol] 20.7 mmol/L Low 22.0-30.0 [facility] Comment on above: Performed By: #### C BC, BMP #### [facility] [address] [place] [address] [place] Creatinine [Mass/Vol] 0.84 mg/dL Normal 0.44-1.03 [facility] Comment on above: Performed By: #### C BC, BMP #### [facility] [address] [place] [address] [place] Creatinine Clr Calc Pharmacy 47.21 Normal [facility] Comment on above: Result Comment: PERF ORMED BY: [place] [address] PATHOLOGIST PEST CONTROLLER ASSISTANT PILAR VILLARREAL M.D. Performed By: #### C BC, BMP #### [facility] [address] Estimated GFR ( Rose > 60 Normal [facility] Comment on above: Result Comment: GFR estimated reference range: According to KDOQI guidelines, <60 ml/min/1.73m2 is sufficient to diagnose a patient with chronic kidney disease. Performed By: #### C BC, BMP #### [address] Estimated GFR (Non- Am > 60 Normal [facility] Comment on above: Performed By: #### C BC, BMP #### [address] Glucose [Mass/Vol] 104 mg/dL High 70-100 [facility] Comment on above: Result Comment: [place] Glucose Reference Range is dependent on time and content of last meal. Glucose of more than 200 mg/dL in a nonstressed, ambulatory subject supports the diagnosis of Diabetes Mellitus. ADA recommended reference range Performed By: #### C BC, BMP #### [address] Potassium [Moles/Vol] 3.8 mmol/L Normal 3.5-5.1 [facility] Comment on above: Performed By: #### C BC, BMP #### [address] Sodium [Moles/Vol] 135 mmol/L Low 136-146 [facility] Comment on above: Performed By: #### C BC, BMP #### [address] Urea nitrogen [Mass/Vol] 10 mg/dL Normal 9-23 [facility] Comment on above: Performed By: #### C BC, BMP #### [place] [address] [place] Basophils Auto (Bld) [#/Vol] Ordered By: Stiven Zaman on 06-23-2022 Basophils (Bld) [#/Vol] 0.1 10*3/uL 0.0-0.2 [facility] Basophils/100 WBC Auto (Bld) Ordered By: Stiven Zaman on 06-23-2022 Basophils/100 WBC (Bld) 0.8 % . [facility] Complete Blood Count Auto Di ffon 06-23-2022 Basophils (Bld) [#/Vol] 0.1 10*3/uL Normal 0.0-0.2 [facility] Comment on above: Result Comment: PERF ORMED BY: [place] [address] PATHOLOGIST PEST CONTROLLER ASSISTANT PILAR VILLARREAL M.D. Performed By: #### C BC, BMP #### [address] Basophils/100 WBC (Bld) 0.8 % Normal . [facility] Comment on above: Performed By: #### C BC, BMP #### [address] Eosinophils (Bld) [#/Vol] 0.3 10*3/uL Normal 0.0-0.45 [facility] Comment on above: Performed By: #### C BC, BMP #### [place] [address] [place] Eosinophils/100 WBC (Bld) 3.2 % Normal . [facility] Comment on above: Performed By: #### C BC, BMP #### [address] Erythrocyte distribution width (RBC) [Ratio] 13.3 % Normal 11.9-15.3 [facility] Comment on above: Performed By: #### C BC, BMP #### [place] [address] [place] Hematocrit (Bld) [Volume fraction] 38.3 % Normal 34.0-46.4 [facility] Comment on above: Performed By: #### C BC, BMP #### [address] Hemoglobin (Bld) [Mass/Vol] 12.8 g/dL Normal 11.8-15.4 [facility] Comment on above: Performed By: #### C BC, BMP #### [address] [place] [address] [place] Lymphocytes (Bld) [#/Vol] 2.6 10*3/uL Normal 1.00-4.8 [facility] Comment on above: Performed By: #### C BC, BMP #### [facility] [address] [place] [address] [place] Lymphocytes/100 WBC (Bld) 31.9 % Normal . [facility] Comment on above: Performed By: #### C BC, BMP #### [facility] [address] MCH (RBC) [Entitic mass] 34.1 pg Normal 24.7-34.3 [facility] Comment on above: Performed By: #### C BC, BMP #### [address] MCV (RBC) [Entitic vol] 102.2 fL High 80-100 [facility] Comment on above: Performed By: #### C BC, BMP #### [address] Mean Corpuscular HGB Conc 33.4 g/dL Normal 32.0-35.0 [facility] Comment on above: Performed By: #### C BC, BMP #### [place] [address] [place] Monocytes (Bld) [#/Vol] 0.7 10*3/uL Normal 0.0-0.8 [facility] Comment on above: Performed By: #### C BC, BMP #### [place] [address] [place] Monocytes/100 WBC (Bld) 8.4 % Normal . [facility] Comment on above: Performed By: #### C BC, BMP #### [place] [address] [place] Neutrophils (Bld) [#/Vol] 4.5 10*3/uL Normal 1.8-7.7 [facility] Comment on above: Performed By: #### C BC, BMP #### [address] [address] [place] Neutrophils/100 WBC (Bld) 55.7 % Normal . [facility] Comment on above: Performed By: #### C ZULEIMA, BMP #### [address] NRBC% 0.1 /100{WBC} Normal 0-0.5 [facility] Comment on above: Performed By: #### C ZULEIMA, BMP #### [address] Platelet mean volume (Bld) [Entitic vol] 8.0 fL Normal 6.3-10.7 [facility] Comment on above: Performed By: #### C ZULEIMA, BMP #### [address] Platelets (Bld) [#/Vol] 272 10*3/uL Normal 150-450 [facility] Comment on above: Performed By: #### C ZULEIMA, BMP #### [address] RBC (Bld) [#/Vol] 3.75 10*6/uL Normal 3.60-5.00 [facility] Comment on above: Performed By: #### C ZULEIMA, BMP #### [address] WBC (Bld) [#/Vol] 8.1 10*3/uL Normal 3.8-11.6 [facility] Comment on above: Performed By: #### C ZULEIMA, BMP #### [address] Creatinine and Glomerular fi ltration rate.predicted panel (S/P/Bld)Ordered By: Stiven Zaman on 06-23-2022 Creatinine [Mass/Vol] 0.84 mg/dL 0.44-1.03 [facility] Eosinophils Auto (Bld) [#/Vo l]Ordered By: Stiven Zaman on 06-23-2022 Eosinophils (Bld) [#/Vol] 0.3 10*3/uL 0.0-0.45 [facility] Eosinophils/100 WBC Auto (Bl d)Ordered By: Stiven Zaman on 06-23-2022 Eosinophils/100 WBC (Bld) 3.2 % . [facility] Erythrocyte distribution wid th Auto (RBC) [Ratio]Ordered By: Stiven Zaman on 06-23-2022 Erythrocyte distribution width (RBC) [Ratio] 13.3 % 11.9-15.3 [facility] Estimated glomerular filtrat ion rate (GFR) non- AmericanOrdered By: tSiven Zaman on 06-23-2022 GFR/1.73 sq M.predicted among non-blacks MDRD (S/P/Bld) [Vol rate/Area] > 60 mL/Min [facility] Hematocrit Auto (Bld) [Volum e fraction]Ordered By: Stiven Zaman on 06-23-2022 Hematocrit (Bld) [Volume fraction] 38.3 % 34.0-46.4 [facility] Hemoglobin [Mass/volume] in BloodOrdered By: Stiven Zaman on 06-23-2022 Hemoglobin (Bld) [Mass/Vol] 12.8 g/dL 11.8-15.4 [facility] Leukocytes [#/volume] correc zoe for nucleated erythrocytes in Blood by Automated counOrdered By: Stiven Zaman on 06-23-2022 WBC corrected for nucl RBC Auto (Bld) [#/Vol] 8.1 10*3/uL 3.8-11.6 [facility] Lymphocytes Auto (Bld) [#/Vo l]Ordered By: Stiven Zaman on 06-23-2022 Lymphocytes (Bld) [#/Vol] 2.6 10*3/uL 1.00-4.8 [facility] Lymphocytes/100 WBC Auto (Bl d)Ordered By: Stiven Zaman on 06-23-2022 Lymphocytes/100 WBC (Bld) 31.9 % . [facility] MCH Auto (RBC) [Entitic mass ]Ordered By: Stiven Zaman on 06-23-2022 MCH (RBC) [Entitic mass] 34.1 pg 24.7-34.3 [facility] MCHC Auto (RBC) [Mass/Vol]Or dered By: Stiven Zaman on 06-23-2022 MCHC (RBC) [Mass/Vol] 33.4 g/dL 32.0-35.0 [facility] MCV Auto (RBC) [Entitic vol] Ordered By: Stiven Zaman on 06-23-2022 MCV (RBC) [Entitic vol] 102.2 fL 80-100 [facility] Monocytes Auto (Bld) [#/Vol] Ordered By: Stiven Zaman on 06-23-2022 Monocytes (Bld) [#/Vol] 0.7 10*3/uL 0.0-0.8 [facility] Monocytes/100 WBC Auto (Bld) Ordered By: Stiven Zaman on 06-23-2022 Monocytes/100 WBC (Bld) 8.4 % . [facility] Neutrophils Auto (Bld) [#/Vo l]Ordered By: Stiven Zaman on 06-23-2022 Neutrophils (Bld) [#/Vol] 4.5 10*3/uL 1.8-7.7 [facility] Neutrophils/100 WBC Auto (Bl d)Ordered By: Stiven Zaman on 06-23-2022 Neutrophils/100 WBC (Bld) 55.7 % . [facility] No Panel InformationOrdered By: Stiven Zaman on 06-23-2022 Estimated GFR () > 60 mL/Min [facility] Comment on above: GFR estimated refere nce range: According to KDOQI guidelines, <60 ml/min/1.73m2 is sufficient to diagnose a patient with chronic kidney disease. Pharmacy Creatinine Clearance (Chem 47.21 [facility] Nucleated erythrocytes [Pres ence] in Blood by Automated countOrdered By: Stiven Zaman on 06-23-2022 Nucleated RBC Auto Ql (Bld) 0.1 /100{WBC} 0-0.5 [facility] Platelet mean volume Auto (B ld) [Entitic vol]Ordered By: Stiven Zaman on 06-23-2022 Platelet mean volume (Bld) [Entitic vol] 8.0 fL 6.3-10.7 [facility] Platelets Auto (Bld) [#/Vol] Ordered By: Stiven Zaman on 06-23-2022 Platelets (Bld) [#/Vol] 272 10*3/uL 150-450 [facility] RBC Auto (Bld) [#/Vol]Ordere d By: Stiven Zaman on 06-23-2022 RBC (Bld) [#/Vol] 3.75 10*6/uL 3.60-5.00 [facility] Serum or plasma anion gap de terminationOrdered By: Stiven Zaman on 06-23-2022 Anion gap [Moles/Vol] 16.1 mmol/L 6.0-15.0 [facility] Serum or plasma calcium jerrod urement (mass/volume)Ordered By: Stiven Zaman on 06-23-2022 Calcium [Mass/Vol] 9.4 mg/dL 8.2-10.2 [facility] Serum or plasma chloride salma surement (moles/volume)Ordered By: Stiven Zaman on 06-23-2022 Chloride [Moles/Vol] 102 mmol/L 95-114 [facility] Serum or plasma glucose jerrod urement (mass/volume)Ordered By: Stiven Zaman on 06-23-2022 Glucose [Mass/Vol] 104 mg/dL 70-100 [facility] Comment on above: ADA recommended refe rence rangeRandom Glucose Reference Range is dependent on time and content of last meal. Glucose of more than 200 mg/dL in a nonstressed, ambulatory subject supports the diagnosis of Diabetes Mellitus. Serum or plasma potassium me asurement (moles/volume)Ordered By: Stiven Zaman on 06-23-2022 Potassium [Moles/Vol] 3.8 mmol/L 3.5-5.1 [facility] Serum or plasma sodium measu rement (moles/volume)Ordered By: Stiven Zaman on 06-23-2022 Sodium [Moles/Vol] 135 mmol/L 136-146 [facility] Serum or plasma total carbon dioxide measurement (moles/volume)Ordered By: Stiven Zaman on 06-23-2022 CO2 [Moles/Vol] 20.7 mmol/L 22.0-30.0 [facility] Serum or plasma urea nitroge n measurement (mass/volume)Ordered By: Stiven Zaman on 06-23-2022 Urea nitrogen [Mass/Vol] 10 mg/dL 9-23 [facility] WBC Auto (Bld) [#/Vol]Ordere d By: Stiven Zaman on 06-23-2022 WBC (Bld) [#/Vol] 8.1 10*3/uL 3.8-11.6 [facility] Glucose Glucometer (BldC) [M ass/Vol]Ordered By: Stiven Austyn on 06-21-2022 Glucose [Mass/Vol] 108 mg/dL [facility] Comment on above: Random Glucose Refer ence Range is dependent on time and content of last meal. Glucose of more than 200 mg/dL in a nonstressed, ambulatory subject supports the diagnosis of Diabetes Mellitus. Glucose Poct Glucometerson 0 06-21-2022 Glucose [Mass/Vol] 108 mg/dL Normal [facility] Comment on above: Result Comment: [place] om Glucose Reference Range is dependent on time and content of last meal. Glucose of more than 200 mg/dL in a nonstressed, ambulatory subject supports the diagnosis of Diabetes Mellitus. PERFORMED BY: [place] [address] PATHOLOGIST PEST CONTROLLER ASSISTANT PILAR VILLARREAL M.D. Performed By: #### G LUREY #### Point of Care testing , Glucose Poct Glucometerson 0 06-20-2022 Glucose [Mass/Vol] 93 mg/dL Normal [facility] Comment on above: Result Comment: [place] om Glucose Reference Range is dependent on time and content of last meal. Glucose of more than 200 mg/dL in a nonstressed, ambulatory subject supports the diagnosis of Diabetes Mellitus. PERFORMED BY: [place] [address] PATHOLOGIST PEST CONTROLLER ASSISTANT PILAR VILLARREAL M.D. Performed By: #### L IPID, A1C [facility] #### [address] Glucose [Mass/Vol] 107 mg/dL Normal [facility] Comment on above: Result Comment: [place] om Glucose Reference Range is dependent on time and content of last meal. Glucose of more than 200 mg/dL in a nonstressed, ambulatory subject supports the diagnosis of Diabetes Mellitus. PERFORMED BY: [place] [address] PATHOLOGIST PEST CONTROLLER ASSISTANT PILAR VILLARREAL M.D. Performed By: #### G LULS #### Point of Care testing , Glucose Poct Glucometerson 0 06-19-2022 Commemt1 Normal [facility] Comment on above: Result Comment: Glu2 : WILL NOTIFY DR/RN Performed By: #### G LULS #### Point of Care testing , Commemt2 Cleaned Meter [facility] Comment on above: Result Comment: PERF ORMED BY: [address] [address] PATHOLOGIST PEST CONTROLLER ASSISTANT PILAR VILLARREAL M.D. Performed By: #### G LULS #### Point of Care testing , Glucose [Mass/Vol] 118 mg/dL Normal [facility] Comment on above: Result Comment: [place] Glucose Reference Range is dependent on time and content of last meal. Glucose of more than 200 mg/dL in a nonstressed, ambulatory subject supports the diagnosis of Diabetes Mellitus. Performed By: #### G LULS #### Point of Care testing , Glucose [Mass/Vol] 97 mg/dL Normal [facility] Comment on above: Result Comment: [place] om Glucose Reference Range is dependent on time and content of last meal. Glucose of more than 200 mg/dL in a nonstressed, ambulatory subject supports the diagnosis of Diabetes Mellitus. PERFORMED BY: [address] [address] PATHOLOGIST PEST CONTROLLER ASSISTANT PILAR VILLARREAL M.D. Performed By: #### G LULS #### Point of Care testing , No Panel InformationOrdered By: Stiven Zaman on 06-19-2022 Bedside Glucose #2 Comment Cleaned meter [facility] Bedside Glucose Comment See comment [facility] Comment on above: Glu2: WILL NOTIFY DR /RN XR hip LT min 2V(w/wo pelvis )*on 06-19-2022 XR hip LT min 2V(w/wo pelvis)* [facility] [place] [address] [place] [address] XRay Report Signed Patient: Abdirahman Gomez MR#: [id number] : 1940 Acct:[id number] Age/Sex: 81 / F ADM Date: 06/16/22 Loc: Room: 7M3993-5 Type: ADM IN Attending Dr: Stiven Zaman [...] Beasley Jr., D.O.06/19/2022 3:01 PM Dictation Location: [place] [address] Transcribed By: [facility] 06/19/22 1501 Dictated By: Stiven Beasley Jr, DO 06/19/22 1500 Signed By: 06/19/22 1501 [facility] Glucose Poct Glucometerson 0 06-18-2022 Commemt1 Glu2: Cleaned Meter [facility] Comment on above: Result Comment: PERF ORMED BY: [facility] [address] [facility] [place] [address] PATHOLOGIST PEST CONTROLLER ASSISTANT PILAR VILLARREAL M.D. Performed By: #### G LULS #### Point of Care testing , Glucose [Mass/Vol] 105 mg/dL Normal [facility] Comment on above: Result Comment: [facility] Glucose Reference Range is dependent on time and content of last meal. Glucose of more than 200 mg/dL in a nonstressed, ambulatory subject supports the diagnosis of Diabetes Mellitus. Performed By: #### G LULS #### Point of Care testing , Glucose [Mass/Vol] 107 mg/dL Normal [facility] Comment on above: Result Comment: [facility] Glucose Reference Range is dependent on time and content of last meal. Glucose of more than 200 mg/dL in a nonstressed, ambulatory subject supports the diagnosis of Diabetes Mellitus. PERFORMED BY: [place] [address] PATHOLOGIST PEST CONTROLLER ASSISTANT PILAR VILLARREAL M.D. Performed By: #### C BC, BMP #### [address] US carotid doppler BIon 01-0 US carotid doppler BI [facility] [place] [address] [place] [address] Ultrasound Report Signed Patient: Abdirahman Gomez MR#: [id number] : 1940 Acct:[id number] Age/Sex: 81 / F ADM Date: 06/09/22 Loc: Room: [address] [place] [address] Type: DIS IN Attending Dr: Frida De [...] Dictation Location[facility] Tech: Margarethuy Rust Transcribed By: CHANDRAKANT 06/18/22 1650 Dictated By: Bebo Howell MD 06/18/22 1648 Signed By: 06/18/22 1650 Normal [facility] Albumin [Mass/volume] in Ser um or PlasmaOrdered By: Stiven Zaman on 06-17-2022 Albumin [Mass/Vol] 3.3 g/dL 3.2-5.5 [facility] Complete Blood Count Auto Di ffon 06-17-2022 Basophils (Bld) [#/Vol] 0.2 10*3/uL Normal 0.0-0.2 [facility] Comment on above: Result Comment: PERF ORMED BY: [facility] [address] [place] [address] PATHOLOGIST PEST CONTROLLER ASSISTANT PILAR VILLARREAL M.D. Performed By: #### G LULS #### Point of Care testing , Basophils/100 WBC (Bld) 1.4 % Normal . [facility] Comment on above: Performed By: #### G LULS #### Point of Care testing , Eosinophils (Bld) [#/Vol] 0.3 10*3/uL Normal 0.0-0.45 [facility] Comment on above: Performed By: #### G KIRA #### Point of Care testing , Eosinophils/100 WBC (Bld) 2.4 % Normal . [facility] Comment on above: Performed By: #### G CARLEENLS #### Point of Care testing , Erythrocyte distribution width (RBC) [Ratio] 13.2 % Normal 11.9-15.3 [facility] [facility]: Performed By: #### G CARLEENLS #### Point of Care testing , Hematocrit (Bld) [Volume fraction] 38.9 % Normal 34.0-46.4 [facility] Comment on above: Performed By: #### G CARLEENLS #### Point of Care testing , Hemoglobin (Bld) [Mass/Vol] 12.8 g/dL Normal 11.8-15.4 [facility] Comment on above: Performed By: #### G KIRA #### Point of Care testing , Lymphocytes (Bld) [#/Vol] 3.2 10*3/uL Normal 1.00-4.8 [facility] Comment on above: Performed By: #### G CARLEENLS #### Point of Care testing , Lymphocytes/100 WBC (Bld) 29.1 % Normal . [facility] Comment on above: Performed By: #### G CARLEENLS #### Point of Care testing , MCH (RBC) [Entitic mass] 33.5 pg Normal 24.7-34.3 [facility] Comment on above: Performed By: #### G CARLEENLS #### Point of Care testing , MCV (RBC) [Entitic vol] 102.3 fL High 80-100 [facility] Comment on above: Performed By: #### G CARLEENLS #### Point of Care testing , Mean Corpuscular HGB Conc 32.8 g/dL Normal 32.0-35.0 [facility] Comment on above: Performed By: #### G KIRA #### Point of Care testing , Monocytes (Bld) [#/Vol] 1.0 10*3/uL High 0.0-0.8 [facility] Comment on above: Performed By: #### G CARLEENLS #### Point of Care testing , Monocytes/100 WBC (Bld) 9.4 % Normal . [facility] Comment on above: Performed By: #### G CARLEENLS #### Point of Care testing , Neutrophils (Bld) [#/Vol] 6.3 10*3/uL Normal 1.8-7.7 [facility] Comment on above: Performed By: #### G CARLEENLS #### Point of Care testing , Neutrophils/100 WBC (Bld) 57.7 % Normal . [facility] Comment on above: Performed By: #### G CARLEENLS #### Point of Care testing , NRBC% 0.0 /100{WBC} Normal 0-0.5 [facility] Comment on above: Performed By: #### G CARLEENLS #### Point of Care testing , Platelet mean volume (Bld) [Entitic vol] 7.5 fL Normal 6.3-10.7 [facility] Comment on above: Performed By: #### G KIRA #### Point of Care testing , Platelets (Bld) [#/Vol] 309 10*3/uL Normal 150-450 [facility] Comment on above: Performed By: #### G CARLEENLS #### Point of Care testing , RBC (Bld) [#/Vol] 3.81 10*6/uL Normal 3.60-5.00 [facility] Comment on above: Performed By: #### G CARLEENLS #### Point of Care testing , WBC (Bld) [#/Vol] 10.9 10*3/uL Normal 3.8-11.6 [facility] Comment on above: Performed By: #### G CARLEENLS #### Point of Care testing , Comprehensive Metabolic Pane jazmin 06-17-2022 Albumin [Mass/Vol] 3.3 g/dL Normal 3.2-5.5 [facility] Comment on above: Performed By: #### Ginna DURANTLS #### Point of Care testing , Albumin/Globulin [Mass ratio] 0.9 {ratio} [facility] Comment on above: Performed By: #### G KIRA #### Point of Care testing , ALP [Catalytic activity/Vol] 76 U/L Normal 32-92 [facility] Comment on above: Performed By: #### G CARLEENLS #### Point of Care testing , ALT [Catalytic activity/Vol] 39 U/L Normal 10-60 [facility] Comment on above: Performed By: #### G CARLEENLS #### Point of Care testing , Anion gap [Moles/Vol] 13.1 mmol/L Normal 6.0-15.0 [facility] Comment on above: Performed By: #### G KIRA #### Point of Care testing , AST [Catalytic activity/Vol] 52 U/L High 10-42 [facility] Comment on above: Performed By: #### G KIRA #### Point of Care testing , Bilirubin [Mass/Vol] 0.5 mg/dL Normal 0.3-1.2 [facility] Comment on above: Performed By: #### G KIRA #### Point of Care testing , Calcium [Mass/Vol] 9.0 mg/dL Normal 8.2-10.2 [facility] Comment on above: Performed By: #### G CARLEENLS #### Point of Care testing , Chloride [Moles/Vol] 106 mmol/L Normal 95-114 [facility] Comment on above: Performed By: #### G CARLEENLS #### Point of Care testing , CO2 [Moles/Vol] 20.6 mmol/L Low 22.0-30.0 [facility] Comment on above: Performed By: #### G KIRA #### Point of Care testing , Creatinine [Mass/Vol] 0.78 mg/dL Normal 0.44-1.03 [facility] Comment on above: Performed By: #### G CARLEENLS #### Point of Care testing , Creatinine Clr Calc Pharmacy 50.13 [facility] Comment on above: Performed By: #### G CARLEENLS #### Point of Care testing , Estimated GFR ( Rose > 60 [facility] Comment on above: Result Comment: GFR estimated reference range: According to KDOQI guidelines, <60 ml/min/1.73m2 is sufficient to diagnose a patient with chronic kidney disease. Performed By: #### G LULS #### Point of Care testing , Estimated GFR (Non- Am > 60 [facility] Comment on above: Performed By: #### G LULS #### Point of Care testing , Globulin (S) [Mass/Vol] 3.6 g/dL Normal [facility] Comment on above: Performed By: #### G LULS #### Point of Care testing , Glucose [Mass/Vol] 107 mg/dL High 70-100 [facility] Comment on above: Result Comment: [place] om Glucose Reference Range is dependent on time and content of last meal. Glucose of more than 200 mg/dL in a nonstressed, ambulatory subject supports the diagnosis of Diabetes Mellitus. ADA recommended reference range Performed By: #### G LULS #### Point of Care testing , Potassium [Moles/Vol] 3.7 mmol/L Normal 3.5-5.1 [facility] Comment on above: Performed By: #### G LULS #### Point of Care testing , Protein [Mass/Vol] 6.9 g/dL Normal 6.1-7.9 [facility] Comment on above: Performed By: #### G LULS #### Point of Care testing , Sodium [Moles/Vol] 136 mmol/L Normal 136-146 [facility] Comment on above: Performed By: #### G LULS #### Point of Care testing , Urea nitrogen [Mass/Vol] 13 mg/dL Normal 9-23 [facility] Comment on above: Performed By: #### G LULS #### Point of Care testing , Globulin Calc (S) [Mass/Vol] Ordered By: Stiven Zaman on 06-17-2022 Globulin (S) [Mass/Vol] 3.6 g/dL [facility] Glucose Poct Glucometerson 0 06-17-2022 Commemt1 [facility] Comment on above: Result Comment: Glu2 : WILL NOTIFY DR/RN Performed By: #### G LULS #### Point of Care testing , Commemt2 Cleaned Meter Normal [facility] Comment on above: Result Comment: PERF ORMED BY: [place] [address] PATHOLOGIST PEST CONTROLLER ASSISTANT PILAR VILLARREAL M.D. Performed By: #### G LULS #### Point of Care testing , Glucose [Mass/Vol] 121 mg/dL Normal [facility] Comment on above: Result Comment: [place] Glucose Reference Range is dependent on time and content of last meal. Glucose of more than 200 mg/dL in a nonstressed, ambulatory subject supports the diagnosis of Diabetes Mellitus. Performed By: #### G LULS #### Point of Care testing , Glucose [Mass/Vol] 105 mg/dL Normal [facility] Comment on above: Result Comment: [place] Glucose Reference Range is dependent on time and content of last meal. Glucose of more than 200 mg/dL in a nonstressed, ambulatory subject supports the diagnosis of Diabetes Mellitus. PERFORMED BY: [place] [address] PATHOLOGIST [employer]ST CONTROLLER ASSISTANT PILAR VILLARREAL M.D. Performed By: #### G LULS #### Point of Care testing , Prealbuminon 06-17-2022 Prealbumin [Mass/Vol] 24.1 mg/dL Normal 18.0-38.0 [facility] Comment on above: Result Comment: PERF ORMED BY: [place] [address] PATHOLOGIST [employer]ST CONTROLLER ASSISTANT PILAR VILLARREAL M.D. Performed By: #### L IPID, A1C WT eA #### [address] Protein [Mass/volume] in Ser um or PlasmaOrdered By: Stiven Zaman on 06-17-2022 Protein [Mass/Vol] 6.9 g/dL 6.1-7.9 [facility] Serum or plasma alanine carney otransferase measurement without P-5'-P (enzymatic activiOrdered By: Stiven Zaman on 06-17-2022 ALT No additional P-5'-P [Catalytic activity/Vol] 39 U/L 10-60 [facility] Serum or plasma albumin/glob ulin mass ratioOrdered By: Stiven Zaman on 06-17-2022 Albumin/Globulin [Mass ratio] 0.9 {ratio} [facility] Serum or plasma alkaline ayad sphatase measurement (enzymatic activity/volume)Ordered By: Stiven Zaman on 06-17-2022 ALP [Catalytic activity/Vol] 76 U/L 32-92 [facility] Serum or plasma aspartate am inotransferase measurement (enzymatic activity/volume)Ordered By: Stiven Zaman on 06-17-2022 AST [Catalytic activity/Vol] 52 U/L 10-42 [facility] Serum or plasma prealbumin m easurement (mass/volume)Ordered By: Stiven Zaman on 06-17-2022 Prealbumin [Mass/Vol] 24.1 mg/dL 18.0-38.0 [facility] Serum or plasma total biliru bin measurement (mass/volume)Ordered By: Stiven Zaman on 06-17-2022 Bilirubin [Mass/Vol] 0.5 mg/dL 0.3-1.2 [facility] Basic Metabolic Panelon Anion gap [Moles/Vol] 14.0 mmol/L Normal 6.0-15.0 [facility] Comment on above: Performed By: #### L IPID, A1C [facility] eA #### [facility] [address] [place] [id number] [place] Calcium [Mass/Vol] 9.5 mg/dL Normal 8.2-10.2 [facility] Comment on above: Performed By: #### L IPID, A1C WT eA #### [facility] [address] [place] [address] [place] Chloride [Moles/Vol] 102 mmol/L Normal 95-114 [facility] Comment on above: Performed By: #### L IPID, A1C [facility] eA #### [facility] [address] [place] [address] [place] CO2 [Moles/Vol] 21.7 mmol/L Low 22.0-30.0 [facility] Comment on above: Performed By: #### L IPID, A1C WTH eA #### [facility] [address] [place] [address] [place] Creatinine [Mass/Vol] 0.83 mg/dL Normal 0.44-1.03 [facility] Comment on above: Performed By: #### L IPID, A1C WTH eA #### [facility] [address] [place] [address] [place] Creatinine Clr Calc Pharmacy 48.32 [facility] Comment on above: Result Comment: PERF ORMED BY: [place] [address] PATHOLOGIST PEST CONTROLLER ASSISTANT PILAR VILLARREAL M.D. Performed By: #### L IPID, A1C WTH eA #### [address] Estimated GFR ( Rose > 60 [facility] Comment on above: Result Comment: GFR estimated reference range: According to KDOQI guidelines, <60 ml/min/1.73m2 is sufficient to diagnose a patient with chronic kidney disease. Performed By: #### L IPID, A1C WT eA #### [place] [address] [place] Estimated GFR (Non- Am > 60 [facility] Comment on above: Performed By: #### L IPID, A1C WT eA #### [facility] [address] [place] [address] [place] Glucose [Mass/Vol] 142 mg/dL High 70-100 [facility] Comment on above: Result Comment: [place] Glucose Reference Range is dependent on time and content of last meal. Glucose of more than 200 mg/dL in a nonstressed, ambulatory subject supports the diagnosis of Diabetes Mellitus. ADA recommended reference range Performed By: #### L IPID, A1C WTH eA #### [place] [address] [place] Potassium [Moles/Vol] 3.7 mmol/L Normal 3.5-5.1 [facility] Comment on above: Performed By: #### L IPID, A1C WTH eA #### [facility] [address] [place] [address] Sodium [Moles/Vol] 134 mmol/L Low 136-146 [facility] Comment on above: Performed By: #### L IPID, A1C WTH eA #### [facility] [address] [place] [address] Urea nitrogen [Mass/Vol] 15 mg/dL Normal 9-23 [facility] Comment on above: Performed By: #### L IPID, A1C WTH eA #### [facility] [address] [place] [address] [place] Basophils Auto (Bld) [#/Vol] Ordered By: Frida De La Cruz on 06-15-2022 Basophils (Bld) [#/Vol] 0.1 10*3/uL 0.0-0.2 [facility] Basophils/100 WBC Auto (Bld) Ordered By: Frida De La Cruz on 06-15-2022 Basophils/100 WBC (Bld) 1.2 % . [facility] Complete Blood Count Auto Di ffon 06-15-2022 Basophils (Bld) [#/Vol] 0.1 10*3/uL Normal 0.0-0.2 [facility] Comment on above: Result Comment: PERF ORMED BY: [place] [address] PATHOLOGIST PEST CONTROLLER ASSISTANT PILAR VILLARREAL M.D. Performed By: #### L IPID, [facility] WT eA #### [facility] [address] [place] [address] [place] Basophils/100 WBC (Bld) 1.2 % Normal . [facility] Comment on above: Performed By: #### L IPID, A1C WT eA #### [facility] [address] [place] [address] [place] Eosinophils (Bld) [#/Vol] 0.3 10*3/uL Normal 0.0-0.45 [facility] Comment on above: Performed By: #### L IPID, A1C WTH eA #### [facility] [address] [place] [address] [place] Eosinophils/100 WBC (Bld) 2.6 % Normal . [facility] Comment on above: Performed By: #### L IPID, [address] eA #### [facility] [address] Erythrocyte distribution width (RBC) [Ratio] 13.7 % Normal 11.9-15.3 [facility] Comment on above: Performed By: #### L IPID, [address] eA #### [facility] [address] Hematocrit (Bld) [Volume fraction] 41.4 % Normal 34.0-46.4 [facility] Comment on above: Performed By: #### L IPID, [address] eA #### [facility] [address] Hemoglobin (Bld) [Mass/Vol] 13.6 g/dL Normal 11.8-15.4 [facility] Comment on above: Performed By: #### L IPID, [address] eA #### [facility] [address] [place] [address] [place] Lymphocytes (Bld) [#/Vol] 2.9 10*3/uL Normal 1.00-4.8 [facility] Comment on above: Performed By: #### L IPID, [address] eA #### [place] [address] [place] Lymphocytes/100 WBC (Bld) 27.7 % Normal . [facility] Comment on above: Performed By: #### L IPID, [address] eA #### [facility] [address] [place] [address] [place] MCH (RBC) [Entitic mass] 33.9 pg Normal 24.7-34.3 [facility] Comment on above: Performed By: #### L IPID, [address] eA #### [facility] [address] [place] [address] [place] MCV (RBC) [Entitic vol] 103.3 fL High 80-100 [facility] Comment on above: Performed By: #### L IPID, A1C WTH eA #### [facility] [address] Mean Corpuscular HGB Conc 32.8 g/dL Normal 32.0-35.0 [facility] Comment on above: Performed By: #### L IPID, A1C WTH eA #### [facility] [address] [place] [address] [place] Monocytes (Bld) [#/Vol] 0.7 10*3/uL Normal 0.0-0.8 [facility] Comment on above: Performed By: #### L IPID, A1C WTH eA #### [facility] [address] [place] [address] [place] Monocytes/100 WBC (Bld) 6.9 % Normal . [facility] Comment on above: Performed By: #### L IPID, A1C WTH eA #### [facility] [address] [place] [address] [place] Neutrophils (Bld) [#/Vol] 6.6 10*3/uL Normal 1.8-7.7 [facility] Comment on above: Performed By: #### L IPID, A1C WT eA #### [facility] [address] [place] [address] [place] Neutrophils/100 WBC (Bld) 61.6 % Normal . [facility] Comment on above: Performed By: #### L IPID, A1C WTH eA #### [facility] [address] [place] [address] [place] NRBC% 0.1 /100{WBC} Normal 0-0.5 [facility] Comment on above: Performed By: #### L IPID, A1C WTH eA #### [facility] [address] [place] [address] [place] Platelet mean volume (Bld) [Entitic vol] 8.0 fL Normal 6.3-10.7 [facility] Comment on above: Performed By: #### L IPID, A1C WTH eA #### [facility] [address] [place] [address] [place] Platelets (Bld) [#/Vol] 282 10*3/uL Normal 150-450 [facility] Comment on above: Performed By: #### L IPID, A1C WT eA #### [facility] [address] [place] [address] [place] RBC (Bld) [#/Vol] 4.01 10*6/uL Normal 3.60-5.00 [facility] Comment on above: Performed By: #### L IPID, A1C WT eA #### [facility] [address] [place] [address] [place] WBC (Bld) [#/Vol] 10.7 10*3/uL Normal 3.8-11.6 [facility] Comment on above: Performed By: #### L IPID, A1C [facility] eA #### [facility] [address] [place] [address] [place] Creatinine and Glomerular fi ltration rate.predicted panel (S/P/Bld)Ordered By: Frida De La Cruz on 06-15-2022 Creatinine [Mass/Vol] 0.83 mg/dL 0.44-1.03 [facility] Eosinophils Auto (Bld) [#/Vo l]Ordered By: Frida De La Cruz on 06-15-2022 Eosinophils (Bld) [#/Vol] 0.3 10*3/uL 0.0-0.45 [facility] Eosinophils/100 WBC Auto (Bl d)Ordered By: Frida De La Cruz on 06-15-2022 Eosinophils/100 WBC (Bld) 2.6 % . [facility] Erythrocyte distribution wid th Auto (RBC) [Ratio]Ordered By: Frida De La Cruz on 06-15-2022 Erythrocyte distribution width (RBC) [Ratio] 13.7 % 11.9-15.3 [facility] Estimated glomerular filtrat ion rate (GFR) non- AmericanOrdered By: Frida De La Cruz on 06-15-2022 GFR/1.73 sq M.predicted among non-blacks MDRD (S/P/Bld) [Vol rate/Area] > 60 mL/Min [facility] Hematocrit Auto (Bld) [Volum e fraction]Ordered By: Frida De La Cruz on 06-15-2022 Hematocrit (Bld) [Volume fraction] 41.4 % 34.0-46.4 [facility] Hemoglobin [Mass/volume] in BloodOrdered By: Frida De La Cruz on 06-15-2022 Hemoglobin (Bld) [Mass/Vol] 13.6 g/dL 11.8-15.4 [facility] Leukocytes [#/volume] correc zoe for nucleated erythrocytes in Blood by Automated counOrdered By: Frida De La Cruz on 06-15-2022 WBC corrected for nucl RBC Auto (Bld) [#/Vol] 10.7 10*3/uL 3.8-11.6 [facility] Lymphocytes Auto (Bld) [#/Vo l]Ordered By: Frida De La Cruz on 06-15-2022 Lymphocytes (Bld) [#/Vol] 2.9 10*3/uL 1.00-4.8 [facility] Lymphocytes/100 WBC Auto (Bl d)Ordered By: Frida De La Cruz on 06-15-2022 Lymphocytes/100 WBC (Bld) 27.7 % . [facility] MCH Auto (RBC) [Entitic mass ]Ordered By: Frida De La Cruz on 06-15-2022 MCH (RBC) [Entitic mass] 33.9 pg 24.7-34.3 [facility] MCHC Auto (RBC) [Mass/Vol]Or dered By: Frida De La Cruz on 06-15-2022 MCHC (RBC) [Mass/Vol] 32.8 g/dL 32.0-35.0 [facility] MCV Auto (RBC) [Entitic vol] Ordered By: Frida De La Cruz on 06-15-2022 MCV (RBC) [Entitic vol] 103.3 fL 80-100 [facility] Monocytes Auto (Bld) [#/Vol] Ordered By: Frida De La Cruz on 06-15-2022 Monocytes (Bld) [#/Vol] 0.7 10*3/uL 0.0-0.8 [facility] Monocytes/100 WBC Auto (Bld) Ordered By: Frida De La Cruz on 06-15-2022 Monocytes/100 WBC (Bld) 6.9 % . [facility] Neutrophils Auto (Bld) [#/Vo l]Ordered By: Frida De La Cruz on 06-15-2022 Neutrophils (Bld) [#/Vol] 6.6 10*3/uL 1.8-7.7 [facility] Neutrophils/100 WBC Auto (Bl d)Ordered By: Frida De La Cruz on 06-15-2022 Neutrophils/100 WBC (Bld) 61.6 % . [facility] No Panel InformationOrdered By: Frida De La Cruz on 06-15-2022 Estimated GFR () > 60 mL/Min [facility] Comment on above: GFR estimated refere nce range: According to KDOQI guidelines, <60 ml/min/1.73m2 is sufficient to diagnose a patient with chronic kidney disease. Pharmacy Creatinine Clearance (Chem 48.32 [facility] Nucleated erythrocytes [Pres ence] in Blood by Automated countOrdered By: Frida De La Cruz on 06-15-2022 Nucleated RBC Auto Ql (Bld) 0.1 /100{WBC} 0-0.5 [facility] Platelet mean volume Auto (B ld) [Entitic vol]Ordered By: Frida De La Cruz on 06-15-2022 Platelet mean volume (Bld) [Entitic vol] 8.0 fL 6.3-10.7 [facility] Platelets Auto (Bld) [#/Vol] Ordered By: Frida De La Cruz on 06-15-2022 Platelets (Bld) [#/Vol] 282 10*3/uL 150-450 [facility] RBC Auto (Bld) [#/Vol]Ordere d By: Frida De La Cruz on 06-15-2022 RBC (Bld) [#/Vol] 4.01 10*6/uL 3.60-5.00 [facility] Serum or plasma anion gap de terminationOrdered By: Frida De La Cruz on 06-15-2022 Anion gap [Moles/Vol] 14.0 mmol/L 6.0-15.0 Fi [facility] Serum or plasma calcium jerrod urement (mass/volume)Ordered By: Frida De La Cruz on 06-15-2022 Calcium [Mass/Vol] 9.5 mg/dL 8.2-10.2 [facility] Serum or plasma chloride salma surement (moles/volume)Ordered By: Frida De La Cruz on 06-15-2022 Chloride [Moles/Vol] 102 mmol/L 95-114 [facility] Serum or plasma glucose jerrod urement (mass/volume)Ordered By: Frida De La Cruz on 06-15-2022 Glucose [Mass/Vol] 142 mg/dL 70-100 [facility] Comment on above: ADA recommended refe rence rangeRandom Glucose Reference Range is dependent on time and content of last meal. Glucose of more than 200 mg/dL in a nonstressed, ambulatory subject supports the diagnosis of Diabetes Mellitus. Serum or plasma potassium me asurement (moles/volume)Ordered By: Frida De La Cruz on 06-15-2022 Potassium [Moles/Vol] 3.7 mmol/L 3.5-5.1 [facility] Serum or plasma sodium measu rement (moles/volume)Ordered By: Frida De La Cruz on 06-15-2022 Sodium [Moles/Vol] 134 mmol/L 136-146 [facility] Serum or plasma total carbon dioxide measurement (moles/volume)Ordered By: Frida De La Cruz on 06-15-2022 CO2 [Moles/Vol] 21.7 mmol/L 22.0-30.0 [facility] Serum or plasma urea nitroge n measurement (mass/volume)Ordered By: Frida De La Cruz on 06-15-2022 Urea nitrogen [Mass/Vol] 15 mg/dL 9-23 [facility] WBC Auto (Bld) [#/Vol]Ordere d By: Frida De La Cruz on 06-15-2022 WBC (Bld) [#/Vol] 10.7 10*3/uL 3.8-11.6 [facility] ECG 12 lead ECGon 06-14-2022 ECG 12 lead ECG [facility] [address] [place] [id number] Electrocardiograph Report Signed Patient: Abdirahman Gomez MR#: [id number] : 1940 Acct:[id number] Age/Sex: 81 / F ADM Date: 06/09/22 Loc: 3T Room: [address] [place] [address] Type: DIS IN Attending Dr: Frida De [...] Yoav Prado MD 0 06/15/22 0617 Normal [facility] Troponin I High Sensitivityo n 06-14-2022 Troponin I High Sensitivity 906 pg/mL Off scale high 0-15 [facility] Comment on above: Result Comment: Crit ical value result called at 1642 on 06/14/22 PERFORMED BY: [facility] [place] [address] PATHOLOGIST PEST CONTROLLER ASSISTANT PILAR VILLARREAL M.D. Performed By: #### G LULS #### Point of Care testing , Troponin I.cardiac [Mass/vol ume] in Serum or Plasma by High sensitivity methodOrdered By: Nathaniel Castillo on 06-14-2022 Troponin I.cardiac High sensitivity method [Mass/Vol] 906 pg/mL 0-15 [facility] Comment on above: Critical valueresult calledat 1642 on 06/14/22 A1C with Estimated Average G antoinepatricia 06-13-2022 Glucose [Mass/Vol] 123 mg/dL Normal [facility] Comment on above: Result Comment: PERF ORMED BY: [place] [address] PATHOLOGIST [employer]ST CONTROLLER ASSISTANT PILAR VILLARREAL M.D. Performed By: #### L IPID, A1C WT eA #### [facility] [address] [place] [address] HbA1c (Bld) [Mass fraction] 5.9 % High 4.3-5.6 [facility] Comment on above: Result Comment: Incr eased risk for diabetes: 5.7 - 6.4 diabetes: >6.4 glycemic control for adults with diabetes: <7.0 Performed By: #### L IPID, A1C WT eA #### [address] Cholesterol [Mass/volume] in Serum or PlasmaOrdered By: Nathaniel Castillo on 06-13-2022 Cholesterol [Mass/Vol] 150 mg/dL 140-200 [facility] Comment on above: Chol less than 200 m g/dl low riskChol 201-239 mg/dl borderline riskChol 240 mg/dl and greater high risk Cholesterol in LDL Calc [Mas s/Vol]Ordered By: Nathaniel Castillo on 06-13-2022 Cholesterol in LDL [Mass/Vol] 80 mg/dL 0-100 [facility] Comment on above: LDL ATP III CLASSIFI CATIONLDL less than 100 mg/dL OptimalLDL 100-129 mg/dL Near or above optimalLDL 130-159 mg/dL Borderline highLDL 160-189 mg/dL HighLDL greater than 189 mg/dL Very high Cholesterol in VLDL Calc [Ma ss/Vol]Ordered By: Nathaniel Castillo on 06-13-2022 Cholesterol in VLDL [Mass/Vol] 25 mg/dL [facility] ECG 12 lead ECGon 06-13-2022 ECG 12 lead ECG [facility] [place] [address] [place] [address] Electrocardiograph Report Signed Patient: Abdirahman Gomez MR#: [id number] : 1940 Acct:[id number] Age/Sex: 81 / F ADM Date: 06/09/22 Loc: Room: [address] [place] [address] Type: DIS IN Attending Dr: Frida De [...] By Ousmane Epstein DO 06/15 1119 Normal [facility] Glucose mean value [Mass/vol ume] in Blood Estimated from glycated hemoglobinOrdered By: Nathaniel Castillo on 06-13-2022 Average glucose Estimated from glycated hemoglobin (Bld) [Mass/Vol] 123 mg/dL [facility] Hemoglobin A1c percentageOrd ered By: Nathaniel Castillo on 06-13-2022 HbA1c (Bld) [Mass fraction] 5.9 % 4.3-5.6 [facility] Comment on above: Increased risk for d iabetes: 5.7 - 6.4diabetes: >6.4glycemic control for adults with diabetes: <7.0 Lipid Panelon 06-13-2022 Cholesterol [Mass/Vol] 150 mg/dL Normal 140-200 [facility] Comment on above: Result Comment: Chol less than 200 mg/dl low risk Chol 201-239 mg/dl borderline risk Chol 240 mg/dl and greater high risk Performed By: #### L IPID, A1C [facility] #### [address] Cholesterol in HDL [Mass/Vol] 45 mg/dL Normal 35-85 [facility] Comment on above: Result Comment: HDL CHOL ATP-III CLASSIFICATION Cardiovascular Risk HDL > or equal to 60 mg/dL LOW HDL < 40 mg/dL HIGH Performed By: #### L IPID, [address] eA #### [facility] [address] Cholesterol.total/Gabriela sterol in HDL [Mass ratio] 3.3 {ratio} Normal <5.0 [facility] Comment on above: Result Comment: PERF ORMED BY: [place] [address] PATHOLOGIST [employer]ST CONTROLLER ASSISTANT PILAR VILLARREAL M.D. Performed By: #### L IPID, [address] eA #### [facility] [address] LDL Cholesterol,Calculated 80 mg/dL Normal 0-100 [facility] Comment on above: Result Comment: LDL ATP III CLASSIFICATION LDL less than 100 mg/dL Optimal LDL 100-129 mg/dL Near or above optimal LDL 130-159 mg/dL Borderline high LDL 160-189 mg/dL High LDL greater than 189 mg/dL Very high Performed By: #### L IPID, [address] eA #### [address] Triglyceride w/Reflex 127 mg/dL Normal 35-149 [facility] Comment on above: Result Comment: TRIG ATP III CLASSIFICATION TRIG less than 150 mg/dL Normal TRIG 150-199 mg/dL Borderline high TRIG 200-500 mg/dL High TRIG greater than 500 mg/dL Very high Standard traceable to the Center for Disease Conrtrol and Prevention (CDC) test method. Performed By: #### L IPID, [address] eA #### [facility] [address] [place] [address] VLDL CHOLESTEROL 25 mg/dL Normal [facility] Comment on above: Performed By: #### L IPID, [address] eA #### [facility] [address] [place] [address] Serum or plasma high density lipoprotein (HDL) cholesterol measurementOrdered By: Nathaniel Castillo on 06-13-2022 Cholesterol in HDL [Mass/Vol] 45 mg/dL 35-85 [facility] Comment on above: HDL CHOL ATP-III CLA SSIFICATION Cardiovascular RiskHDL > or equal to 60 mg/dL LOWHDL < 40 mg/dL HIGH Serum or plasma total choles terol/high density lipoprotein (HDL) cholesterol mass ratOrdered By: Nathaniel Castillo on 06-13-2022 Cholesterol.total/Gabriela sterol in HDL [Mass ratio] 3.3 {ratio} <5.0 [facility] Triglyceride [Mass/volume] i n Serum or PlasmaOrdered By: Nathaniel Castillo on 06-13-2022 Triglyceride [Mass/Vol] 127 mg/dL 35-149 [facility] Comment on above: TRIG ATP III CLASSIF ICATIONTRIG less than 150 mg/dL NormalTRIG 150-199 mg/dL Borderline highTRIG 200-500 mg/dL High TRIG greater than 500 mg/dL Very highStandard traceable to the Center for Disease Conrtrol and Prevention (CDC) test method. MR angio head wo conon 06-12 MR angio head wo con [facility] [place] [address] MRI Report Signed Patient: Abdirahman Gomez MR#: [id number] : 1940 Acct:[id number] Age/Sex: 81 / F ADM Date: 06/09/22 Loc: Room: [address] [place] [address] Type: ADM IN Attending Dr: Nathaniel Castillo MD Copies to: Nathaniel Castillo MD Ordering Provider: Nathaniel Castillo MD Date of Service: 06/12/22 MR/MR angio head wo con: stroke MRA OF THE INTRACRANIAL CIRCULATION TECHNIQUE: 3-D [id number] imaging of the [place] obtained. HISTORY:LEFT arm weakness. The visualized carotid and the vertebrobasilar system are unremarkable. No abnormality of the anterior, middle and posterior cerebral arteries identified. No arterial occlusion, stenosis or dissection identified. No intracranial aneurysm identified. MR/MR angio head wo con IMPRESSION: UNREMARKABLE MRA OF THE INTRACRANIAL CIRCULATION. Impression dictated by: Mamadou Rodríguez M.D.06/12/2022 1:36 PM Dictation Location: [place] [address] Transcribed By: [facility] 06/12/22 1336 Dictated By: Mamadou Rodríguez DO 06/12/22 1330 Signed By: 06/12/22 1336 [facility] MR head/brain wo conon 06-12 MR head/brain wo con [facility] [place] [address] [place] [address] MRI Report Signed Patient: Abdirahman Gomez MR#: [id number] : 1940 Acct:[id number] Age/Sex: 81 / F ADM Date: 06/09/22 Loc: 3T Room: [address] [place] [address] Type: ADM IN Attending Dr: Nathaniel Castillo [...] Beasley Jr., D.O.06/12/2022 10:02 AM Dictation Location: [place] [address] Transcribed By: CHANDRAKANT 06/12/22 1002 Dictated By: Stiven Beasley Jr, DO 06/12/22 0950 Signed By: 06/12/22 1002 [facility] Complete Blood Count Auto Di ffon 06-11-2022 Basophils (Bld) [#/Vol] 0.1 10*3/uL Normal 0.0-0.2 [facility] Comment on above: Result Comment: PERF ORMED BY: [facility] [address] PATHOLOGIST [employer]ST CONTROLLER ASSISTANT PILAR VILLARREAL M.D. Performed By: #### G LULS #### Point of Care testing , Basophils/100 WBC (Bld) 0.5 % Normal . [facility] Comment on above: Performed By: #### G LULS #### Point of Care testing , Eosinophils (Bld) [#/Vol] 0.1 10*3/uL Normal 0.0-0.45 [facility] Comment on above: Performed By: #### G LULS #### Point of Care testing , Eosinophils/100 WBC (Bld) 1.2 % Normal . [facility] Comment on above: Performed By: #### G LULS #### Point of Care testing , Erythrocyte distribution width (RBC) [Ratio] 13.6 % Normal 11.9-15.3 [facility] Comment on above: Performed By: #### G LULS #### Point of Care testing , Hematocrit (Bld) [Volume fraction] 37.7 % Normal 34.0-46.4 [facility] Comment on above: Performed By: #### G LULS #### Point of Care testing , Hemoglobin (Bld) [Mass/Vol] 12.4 g/dL Normal 11.8-15.4 [facility] Comment on above: Performed By: #### G LULS #### Point of Care testing , Lymphocytes (Bld) [#/Vol] 2.8 10*3/uL Normal 1.00-4.8 [facility] Comment on above: Performed By: #### G LULS #### Point of Care testing , Lymphocytes/100 WBC (Bld) 24.1 % Normal . [facility] Comment on above: Performed By: #### G LULS #### Point of Care testing , MCH (RBC) [Entitic mass] 34.5 pg High 24.7-34.3 [facility] Comment on above: Performed By: #### G LULS #### Point of Care testing , MCV (RBC) [Entitic vol] 104.5 fL High 80-100 [facility] Comment on above: Performed By: #### G CARLEENLS #### Point of Care testing , Mean Corpuscular HGB Conc 33.0 g/dL Normal 32.0-35.0 [facility] Comment on above: Performed By: #### G CARLEENLS #### Point of Care testing , Monocytes (Bld) [#/Vol] 1.0 10*3/uL High 0.0-0.8 [facility] Comment on above: Performed By: #### G CARLEENLS #### Point of Care testing , Monocytes/100 WBC (Bld) 9.1 % Normal . [facility] Comment on above: Performed By: #### G CARLEENLS #### Point of Care testing , Neutrophils (Bld) [#/Vol] 7.4 10*3/uL Normal 1.8-7.7 [facility] Comment on above: Performed By: #### Ginna DURANTLS #### Point of Care testing , Neutrophils/100 WBC (Bld) 65.1 % Normal . [facility] Comment on above: Performed By: #### Ginna MALONE #### Point of Care testing , NRBC% 0.1 /100{WBC} Normal 0-0.5 [facility] Comment on above: Performed By: #### G KIRA #### Point of Care testing , Platelet mean volume (Bld) [Entitic vol] 8.0 fL Normal 6.3-10.7 [facility] Comment on above: Performed By: #### Ginna MALONE #### Point of Care testing , Platelets (Bld) [#/Vol] 206 10*3/uL Normal 150-450 [facility] Comment on above: Performed By: #### Ginna DURANTLS #### Point of Care testing , RBC (Bld) [#/Vol] 3.61 10*6/uL Normal 3.60-5.00 [facility] Comment on above: Performed By: #### Ginna MALONE #### Point of Care testing , WBC (Bld) [#/Vol] 11.4 10*3/uL Normal 3.8-11.6 [facility] Comment on above: Performed By: #### G KIRA #### Point of Care testing , ECG 12 lead ECGon 06-11-2022 ECG 12 lead ECG [facility] Main [place] [address] [place] [address] Electrocardiograph Report Signed Patient: Abdirahman Gomez MR#: [id number] : 1940 Acct:[id number] Age/Sex: 81 / F ADM Date: 06/09/22 Loc: Room: [address] [place] [address] Type: DIS IN Attending Dr: Frida De [...] By Yoav Prado MD 1 1318 Normal [facility] Troponin I High Sensitivityo n 06-11-2022 Troponin I High Sensitivity 3701 pg/mL Off scale high 0-15 [facility] Comment on above: Result Comment: Resu lts called at 0655 on 06/11/22 PERFORMED BY: [place] [address] PATHOLOGIST [employer]ST CONTROLLER ASSISTANT PILAR VILLARREAL M.D. Performed By: #### L IPID, A1C WTH eA #### [place] [id number] [place] XR chest 1V portableon 06-11 XR chest 1V portable [facility] Main [place] [id number] XRay Report Signed Patient: Abdirahman Gomez MR#: [id number] : 1940 Acct:[id number] Age/Sex: 81 / F ADM Date: 06/09/22 Loc: 3T Room: [address] [place] [address] Type: ADM IN Attending Dr: Nathaniel Castillo [...] Beasley Jr., D.OHuma06/11/2022 3:33 PM Dictation Location: [place] [address] Transcribed By: [facility] 06/11/22 1533 Dictated By: Stiven Beasley Jr DO 06/11/22 1533 Signed By: 06/11/22 1533 Normal [facility] ECG 12 lead ECGon 06-10-2022 ECG 12 lead ECG [facility] Main [place] [id number] Electrocardiograph Report Signed Patient: Abdirahman Gomez MR#: [id number] : 1940 Acct:[id number] Age/Sex: 81 / F ADM Date: 06/09/22 Loc: 3T Room: [address] [place] [address] Type: DIS IN Attending Dr: Frida De [...] Yoav Prado MD 1 08/11/21 1626 Normal [facility] ECG 12 lead ECG [facility] [place] [address] Electrocardiograph Report Signed Patient: Abdirahman Gomez MR#: [id number] : 1940 Acct:[id number] Age/Sex: 81 / F ADM Date: 06/09/22 Loc: Room: [address] [place] [address] Type: DIS IN Attending Dr: Frida De [...] By Yoav Prado MD 1 08/11/21 1626 [facility] Basic Metabolic Panelon 12-2 Anion gap [Moles/Vol] 13.4 mmol/L Normal 6.0-15.0 [facility] Comment on above: Performed By: #### L IPID, A1C WTH eA #### [facility] [address] Calcium [Mass/Vol] 8.9 mg/dL Normal 8.2-10.2 [facility] Comment on above: Performed By: #### L IPID, A1C WT eA #### [facility] [address] [place] [address] [place] Chloride [Moles/Vol] 106 mmol/L Normal 95-114 [facility] Comment on above: Performed By: #### L IPID, A1C WT eA #### [facility] [address] CO2 [Moles/Vol] 21.6 mmol/L Low 22.0-30.0 [facility] Comment on above: Performed By: #### L IPID, A1C WT eA #### [facility] [address] Creatinine [Mass/Vol] 0.76 mg/dL Normal 0.44-1.03 [facility] Comment on above: Performed By: #### L IPID, A1C WT eA #### [facility] [address] [place] [address] [place] Creatinine Clr Calc Pharmacy 49.92 [facility] Comment on above: Performed By: #### L IPID, A1C WT eA #### [facility] [address] [place] [address] [place] Estimated GFR ( Rose > 60 [facility] Comment on above: Result Comment: GFR estimated reference range: According to KDOQI guidelines, <60 ml/min/1.73m2 is sufficient to diagnose a patient with chronic kidney disease. Performed By: #### L IPID, A1C WT eA #### [facility] [address] [place] [address] [place] Estimated GFR (Non- Am > 60 Normal [facility] Comment on above: Performed By: #### L IPID, A1C WTH eA #### [facility] [address] [place] [id number] [place] Glucose [Mass/Vol] 136 mg/dL High 70-100 [facility] Comment on above: Result Comment: [place] Glucose Reference Range is dependent on time and content of last meal. Glucose of more than 200 mg/dL in a nonstressed, ambulatory subject supports the diagnosis of Diabetes Mellitus. ADA recommended reference range Performed By: #### L IPID, A1C WTH eA #### [facility] [address] [place] [address] [place] Potassium [Moles/Vol] 4.0 mmol/L Normal 3.5-5.1 [facility] Comment on above: Performed By: #### L IPID, A1C WTH eA #### [facility] [address] [place] [address] [place] Sodium [Moles/Vol] 137 mmol/L Normal 136-146 [facility] Comment on above: Performed By: #### L IPID, A1C WTH eA #### [facility] [address] [place] [address] [place] Urea nitrogen [Mass/Vol] 9 mg/dL Normal 9-23 [facility] Comment on above: Performed By: #### L IPID, A1C WTH eA #### [facility] [address] [place] [id number] [place] CBC W MANUAL DIFFon 06-09-20 22 ATYPICAL LYMPH # 0.53 103/ul Normal [facility] Comment on above: Performed By: #### T SH, BNP, CMP, LIPID, T7 #### [facility] [address] [place] [address] [address] Logan Payne ATYPICAL LYMPH % 4 % Normal [facility] Comment on above: Performed By: #### T SH, BNP, CMP, LIPID, T7 #### [facility] [address] [place] [address] [address] Logan Payne BAND # 0.0 103/ul Normal 0.0-0.3 [facility] Comment on above: Performed By: #### T SH, BNP, CMP, LIPID, T7 #### [facility] [address] [place] [address] [address] Logan Payne BAND % 0 % Normal 0-5 [facility] Comment on above: Performed By: #### T SH, BNP, CMP, LIPID, T7 #### [facility] [address] [place] [address] Dr. Logan Payne BASOM # 0.26 103/ul Critically high 0.00-0.10 [facility] Comment on above: Performed By: #### T SH, BNP, CMP, LIPID, T7 #### [facility] [address] [place] [address] [address] Logan MERCADOOM % 2.0 % Normal 0.2-2.0 [facility] Comment on above: Performed By: #### T SH, BNP, CMP, LIPID, T7 #### [facility] [address] [place] [address] Dr. Logan Payne BLAST # Normal [facility] Comment on above: Performed By: #### T SH, BNP, CMP, LIPID, T7 #### [facility] [address] [place] [address] [address] Logan Payne BLAST % Normal [facility] Comment on above: Performed By: #### T SH, BNP, CMP, LIPID, T7 #### [facility] [address] [place] [address] Dr. Logan Payne CORRECTED WBC Normal 4.0-11.0 [facility] Comment on above: Performed By: #### T SH, BNP, CMP, LIPID, T7 #### [facility] [address] [place] [address] [address] Logan Payne EOS # 0.66 103/ul Normal 0.00-0.70 [facility] Comment on above: Performed By: #### T SH, BNP, CMP, LIPID, T7 #### [facility] [address] [place] [address] [address] Logan Payne EOS% 5.0 % Normal 0.9-7.0 [facility] Comment on above: Performed By: #### T SH, BNP, CMP, LIPID, T7 #### [facility] [address] [place] [address] [address] Logan Payne HCT 39.6 % Normal 36.0-48.0 [facility] Comment on above: Performed By: #### T SH, BNP, CMP, LIPID, T7 #### [facility] [address] [place] [address] Dr. Logan Payne HGB 13.5 g/dl Normal 12.0-16.0 [facility] Comment on above: Performed By: #### T SH, BNP, CMP, LIPID, T7 #### [facility] [address] [place] [address] Dr. Logan Payne LYMPHM # 1.98 103/ul Normal 1.20-3.80 [facility] Comment on above: Performed By: #### T SH, BNP, CMP, LIPID, T7 #### [facility] [address] [place] [address] Dr. Logan Payne LYMPHM% 15.0 % Critically low 20.5-60.0 [facility] Comment on above: Performed By: #### T SH, BNP, CMP, LIPID, T7 #### [facility] [address] [place] [address] Dr. Logan Payne MCH 34.1 pg Critically high 26.7-34.0 [facility] Comment on above: Performed By: #### T SH, BNP, CMP, LIPID, T7 #### [facility] [address] [place] [address] [address] Logan Payne MCHC 34.1 g/dl Normal 29.9-35.2 [facility] Comment on above: Performed By: #### T SH, BNP, CMP, LIPID, T7 #### [facility] [address] [place] [address] Dr. Logan Payne MCV 100.0 fL Critically high 81.0-99.0 [facility] Comment on above: Performed By: #### T SH, BNP, CMP, LIPID, T7 #### [facility] [address] [place] [address] Dr. Logan Payne METAMYELOCYTE # Normal [facility] Comment on above: Performed By: #### T SH, BNP, CMP, LIPID, T7 #### [facility] [address] [place] [address] Dr. Logan Payne METAMYELOCYTE % Normal [facility] Comment on above: Performed By: #### T SH, BNP, CMP, LIPID, T7 #### [facility] [address] [place] [address] Dr. Logan Payne MONOM# 1.85 103/ul Critically high 0.30-0.80 [facility] Comment on above: Performed By: #### T SH, BNP, CMP, LIPID, T7 #### [facility] [address] [place] [address] Dr. Logan Payne MONOM% 14.0 % Critically high 1.7-12.0 [facility] Comment on above: Performed By: #### T SH, BNP, CMP, LIPID, T7 #### [facility] [address] [place] [address] Dr. Logan Payne MPV 9.3 fL Critically low 9.5-13.5 [facility] Comment on above: Performed By: #### T SH, BNP, CMP, LIPID, T7 #### [facility] [address] [place] [address] Dr. Logan Payne MYELOCYTE # Normal [facility] Comment on above: Performed By: #### T SH, BNP, CMP, LIPID, T7 #### [facility] [address] [place] [address] Dr. Logan Payne MYELOCYTE % Normal [facility] Comment on above: Performed By: #### T SH, BNP, CMP, LIPID, T7 #### [facility] [address] [place] [address] Dr. Logan Payne NRBC Normal [facility] Comment on above: Performed By: #### T SH, BNP, CMP, LIPID, T7 #### [facility] [address] [place] [address] Dr. Logan Payne PLT 219 103/ul Normal 150-450 [facility] Comment on above: Performed By: #### T SH, BNP, CMP, LIPID, T7 #### [facility] [address] [place] [address] [address] Logan Payne RBC 3.96 106/ul Critically low 4.20-5.40 [facility] Comment on above: Performed By: #### T SH, BNP, CMP, LIPID, T7 #### [facility] [address] [place] [address] Dr. Logan Payne RDW 13.2 % Normal 11.0-15.0 [facility] Comment on above: Performed By: #### T SH, BNP, CMP, LIPID, T7 #### [facility] [address] [place] [address] Dr. Logan Payne SEG # 7.92 103/ul Critically high 1.40-6.50 [facility] Comment on above: Performed By: #### T SH, BNP, CMP, LIPID, T7 #### [facility] [address] [place] [address] Dr. Logan Payne SEG % 60.0 % Normal 43.0-75.0 [facility] Comment on above: Performed By: #### T SH, BNP, CMP, LIPID, T7 #### [facility] [address] [place] [address] Dr. Logan Payne WBC 13.2 103/ul Critically high 4.0-11.0 [facility] Comment on above: Performed By: #### T SH, BNP, CMP, LIPID, T7 #### [facility] [address] [place] [address] Dr. Logan Payne CULTURE BLOODon 06-09-2022 Microscopic examination of blood, culture Culture Observations: NO GROWTH AT 5 DAYS. Isolate 1 [id number] [facility] Comment on above: Performed By: #### T SH, BNP, CMP, LIPID, T7 #### [facility] [address] [place] [address] Dr. Logan Payne Microscopic examination of blood, culture Culture Observations: NO GROWTH AT 5 DAYS. Isolate 1 [id number] [facility] Comment on above: Performed By: #### T SH, BNP, CMP, LIPID, T7 #### [facility] [address] [place], [place] [address] Dr. Logan Payne Complete Blood Count Auto Di ffon 06-09-2022 Basophils (Bld) [#/Vol] 0.1 10*3/uL Normal 0.0-0.2 [facility] Comment on above: Result Comment: PERF ORMED BY: [place] [address] PATHOLOGIST [employer]ST CONTROLLER ASSISTANT PILAR VILLARREAL M.D. Performed By: #### L IPID, A1C WTH eA #### [facility] [address] [place] [address] [place] Basophils/100 WBC (Bld) 0.4 % Normal . [facility] Comment on above: Performed By: #### L IPID, A1C WTH eA #### [facility] [address] [place] [address] [place] Eosinophils (Bld) [#/Vol] 0.1 10*3/uL Normal 0.0-0.45 [facility] Comment on above: Performed By: #### L IPID, A1C WTH eA #### [facility] [address] [place] [address] [place] Eosinophils/100 WBC (Bld) 0.5 % Normal . [facility] Comment on above: Performed By: #### L IPID, A1C WTH eA #### [facility] [address] [place] [address] [place] Erythrocyte distribution width (RBC) [Ratio] 13.8 % Normal 11.9-15.3 [facility] Comment on above: Performed By: #### L IPID, A1C WTH eA #### [facility] [address] [place] [address] [place] Hematocrit (Bld) [Volume fraction] 41.0 % Normal 34.0-46.4 [facility] Comment on above: Performed By: #### L IPID, A1C WTH eA #### [facility] [address] [place] [address] [place] Hemoglobin (Bld) [Mass/Vol] 13.6 g/dL Normal 11.8-15.4 [facility] Comment on above: Performed By: #### L IPID, A1C WT eA #### [address] Lymphocytes (Bld) [#/Vol] 2.3 10*3/uL Normal 1.00-4.8 [facility] Comment on above: Performed By: #### L IPID, A1C WT eA #### [address] Lymphocytes/100 WBC (Bld) 17.2 % Normal . [facility] Comment on above: Performed By: #### L IPID, [address] eA #### [address] MCH (RBC) [Entitic mass] 34.4 pg High 24.7-34.3 [facility] Comment on above: Performed By: #### L IPID, [address] eA #### [address] MCV (RBC) [Entitic vol] 103.6 fL High 80-100 [facility] Comment on above: Performed By: #### L IPID, [address] eA #### [address] Mean Corpuscular HGB Conc 33.2 g/dL Normal 32.0-35.0 [facility] Comment on above: Performed By: #### L IPID, A1C [facility] eA #### [place] [address] [place] Monocytes (Bld) [#/Vol] 1.3 10*3/uL High 0.0-0.8 [facility] Comment on above: Performed By: #### L IPID, [facility] WT eA #### [address] Monocytes/100 WBC (Bld) 10.1 % Normal . [facility] Comment on above: Performed By: #### L IPID, A1C WT eA #### [address] [place] [address] [place] Neutrophils (Bld) [#/Vol] 9.5 10*3/uL High 1.8-7.7 [facility] Comment on above: Performed By: #### L IPID, [address] eA #### [facility] [address] [place] [address] [place] Neutrophils/100 WBC (Bld) 71.8 % Normal . [facility] Comment on above: Performed By: #### L IPID, [address] eA #### [facility] [address] [place] [address] [place] NRBC% 0.0 /100{WBC} Normal 0-0.5 [facility] Comment on above: Performed By: #### L IPID, [address] eA #### [facility] [address] Platelet mean volume (Bld) [Entitic vol] 8.1 fL Normal 6.3-10.7 [facility] Comment on above: Performed By: #### L IPID, [address] eA #### [facility] [address] [place] [address] [place] Platelets (Bld) [#/Vol] 199 10*3/uL Normal 150-450 [facility] Comment on above: Performed By: #### L IPID, [address] eA #### [facility] [address] [place] [address] [place] RBC (Bld) [#/Vol] 3.96 10*6/uL Normal 3.60-5.00 [facility] Comment on above: Performed By: #### L IPID, [address] eA #### [facility] [address] [place] [address] [place] WBC (Bld) [#/Vol] 13.2 10*3/uL High 3.8-11.6 [facility] Comment on above: Performed By: #### L IPID, [address] eA #### [facility] [address] [place] [address] [place] Covid-19 PCR (CVDTBH)on 05-15 SARS-CoV-2 (COVID-19) RNA CAROL+probe Ql (Unsp spec) Not detected Normal NOT DETECTED [facility] Comment on above: Result Comment: When diagnostic [...] for this test is supported by the Clinical Trial Data Manager of Health and Human Service's declaration that [...] T SH, BNP, CMP, LIPID, T7 #### [facility] [address] [place] [address] Dr. Logan Payne ECG 12 lead ECGon 06-09-2022 ECG 12 lead ECG [facility] [place] [address] Electrocardiograph Report Signed Patient: Abdirahman Gomez MR#: [id number] : 1940 Acct:[id number] Age/Sex: 81 / F ADM Date: 06/09/22 Loc: Room: [address] [place] [address] Type: DIS IN Attending Dr: Frida De [...] Yoav Prado MD 1 08/10/21 1709 Normal [facility] echo transthoracicon [facility] echo transthoracic [facility] Main [place] [address] [place] [address] Echocardiogram Signed Patient: Abdirahman Gomez MR#: [id number] : 1940 Acct:[id number] Age/Sex: 81 / F ADM Date: 06/09/22 Loc: Room: [address] [place] [address] Type: DIS IN Attending Dr: Frida De La Cruz MD Ordering Provider: Marta Juarez DO, RES Date of Service: 06/09/22 [facility] echo transthoracic: elevated trop, afib Copies to: [...] cm Transcribed By: SCV Performed At: 06/09/22 7191 Signed By: Yoav Prado MD 06/09/22 6577 [facility] Folate [Mass/volume] in Seru m or PlasmaOrdered By: Nathaniel Castillo on 06-09-2022 Folate [Mass/Vol] ng/mL >5.9 [facility] Comment on above: Folate reference ran ge: >5.9 ng/mlThe WHO technical consultation on folate and vitamin [id number] has determined that folate concentrations lessthan 4 ng/ml are considered deficient. LACTATE/LACTIC ACIDon 2021 Lactate [Moles/Vol] 1.1 mmol/L Normal 0.4-1.9 [facility] Comment on above: Performed By: #### T SH, BNP, CMP, LIPID, T7 #### [facility] [address] [place] [address] [address] Logan Payne Lactate [Moles/Vol] 1.8 mmol/L Normal 0.4-1.9 [facility] Comment on above: Performed By: #### T SH, BNP, CMP, LIPID, T7 #### [facility] [address] [address] [address] Logan Payne Laboratory - Chemistry and C hemistry - challengeOrdered By: Nathaniel Castillo on 06-09-2022 Cobalamin (Vitamin B12) [Mass/Vol] 480 pg/mL 180-914 [facility] - Chemistry and C hemistry - challengeOrdered By: Rossi Valdez on 06-09-2022 Magnesium [Mass/Vol] 1.8 mg/dL 1.6-2.6 [facility] Magnesiumon 06-09-2022 Magnesium [Mass/Vol] 1.8 mg/dL Normal 1.6-2.6 [facility] Comment on above: Result Comment: PERF ORMED BY: [place] [address] PATHOLOGIST PEST CONTROLLER ASSISTANT PILAR VILLARREAL M.D. Performed By: #### L IPID, A1C WTH eA #### [facility] [address] OCC BLD IMMUNO SCREENon 05-15 OCCULT BLOOD Positive Abnormal NEGATIVE [facility] Comment on above: Performed By: #### T SH, BNP, CMP, LIPID, T7 #### [facility] [address] [address] [address] Logan Payne PROF 14(COMP METB)on 022 Albumin [Mass/Vol] 3.3 g/dL Critically low 3.4-5.0 [facility] Comment on above: Performed By: #### C MP, HSTROPN #### [facility] [address] [place] [address] [address] Logan Payne Albumin/Globulin [Mass ratio] 0.8 {ratio} Normal [facility] Comment on above: Performed By: #### C MP, HSTROPN #### [facility] [address] [place] [address] [address] Logan Payne ALP [Catalytic activity/Vol] 95 U/L Normal 46-116 [facility] Comment on above: Performed By: #### C MP, HSTROPN #### [facility] [address] [address] [address] Logan Payne ALT [Catalytic activity/Vol] 36 U/L Normal 14-59 [facility] Comment on above: Performed By: #### C MP, HSTROPN #### [facility] [address] [place] [address] [address] Logan Payne Anion gap [Moles/Vol] 14.7 mmol/L Normal [facility] Comment on above: Performed By: #### C MP, HSTROPN #### [facility] [address] [place] [address] [address] Logan Payne AST [Catalytic activity/Vol] 75 U/L Critically high 15-37 [facility] Comment on above: Performed By: #### C MP, HSTROPN #### [facility] [address] [address] [address] Logan Payne Bilirubin [Mass/Vol] 0.4 mg/dL Normal 0.2-1.0 [facility] Comment on above: Performed By: #### C MP, HSTROPN #### [facility] [address] [place] [address] [address] Logan Payne Calcium [Mass/Vol] 8.7 mg/dL Normal 8.5-10.1 [facility] Comment on above: Performed By: #### C MP, HSTROPN #### [facility] [address] [place] [address] [address] Logan Payne Chloride [Moles/Vol] 103 mmol/L Normal 98-107 [facility] Comment on above: Performed By: #### C JOSE, HSTROPN #### [facility] [address] [place] [address] [address] Logan Payne CO2 [Moles/Vol] 21.3 mmol/L Normal 21.0-32.0 [facility] Comment on above: Performed By: #### C JOSE, HSTROPN #### [facility] [address] [place] [address] Dr. Logan Payne Creatinine [Mass/Vol] 0.83 mg/dL Normal 0.55-1.02 [facility] Comment on above: Performed By: #### C JOSE, HSTROPN #### [facility] [address] [place] [address] Dr. Logan Payne EGFR-AF AUSTRIAN >60 Normal >=60 [facility] Comment on above: Performed By: #### C JOSE, HSTROPN #### [facility] [address] [place] [address] Dr. Logan Payne EGFR-NON AF AUSTRIAN >60 Normal >=60 [facility] Comment on above: Performed By: #### C JOSE, HSTROPN #### [facility] [address] [place] [address] Dr. Logan Payne Globulin (S) [Mass/Vol] 4.1 g/dL Normal [facility] Comment on above: Performed By: #### C JOSE, HSTROPN #### [facility] [address] [address] [address] Logan Payne Glucose [Mass/Vol] 141 mg/dL Critically high 74-106 [facility] Comment on above: Performed By: #### C JOSE, HSTROPN #### [facility] [address] [place] [address] Dr. Logan Payne Potassium [Moles/Vol] 4.0 mmol/L Normal 3.5-5.1 [facility] Comment on above: Performed By: #### C JOSE, HSTROPN #### [facility] [address] [place] [address] Dr. Logan Payne Protein [Mass/Vol] 7.4 g/dL Normal 6.4-8.2 [facility] Comment on above: Performed By: #### C MP, HSTROPN #### [facility] [address] [place] [address] Dr. Logan Payne Sodium [Moles/Vol] 135 mmol/L Critically low 136-145 [facility] Comment on above: Performed By: #### C MP, HSTROPN #### [facility] [address] [place] [address] Dr. Logan Payne Urea nitrogen [Mass/Vol] 16.0 mg/dL Normal 7.0-18.0 [facility] Comment on above: Performed By: #### C JOSE, HSTROPN #### [facility] [address] [place] [address] Dr. Logan Payne Urea nitrogen/Creatinine [Mass ratio] 19.3 mg/mg Normal [facility] Comment on above: Performed By: #### C JOSE, HSTROPN #### [facility] [address] [place] [address] Dr. Logan Payne PROTIMEon 06-09-2022 INR Coag (PPP) [Relative time] 0.98 {INR} Normal [facility] Comment on above: Performed By: #### T SH, BNP, CMP, LIPID, T7 #### [facility] [address] [place] [address] Dr. Logan Payne INR GUIDELINES SEE BELOW Normal [facility] Comment on above: Result Comment: FERCHO RED INR: 2.0 - 3.0 CONDITIONS NOT LISTED BELOW 2.5 - 3.5 FOR PROSTHETIC HEART VALVE REPLACEMENT 2.5 - 3.5 RECURRENT THROMBOSIS Performed By: #### T SH, BNP, CMP, LIPID, T7 #### [facility] [address] [place] [address] Dr. Logan Payne PT Coag (PPP) [Time] 10.6 s Normal 9.0-11.6 [facility] Comment on above: Performed By: #### T SH, BNP, CMP, LIPID, T7 #### [facility] [address] [place], [place] [address] Dr. Logan Payne PTTon 06-09-2022 aPTT Coag (Bld) [Time] 30.0 s Normal 22.3-36.2 [facility] Comment on above: Performed By: #### T SH, BNP, CMP, LIPID, T7 #### [facility] [address] [place], [place] [address] Dr. Logan Payne TROPONIN, HIGH SENSITIVITYon 06-09-2022 HSTROP 8564.4 pg/mL Critically high 4.0-51.3 [facility] Comment on above: Result Comment: CUT- OFF POINTS HAVE BEEN ESTABLISHED BASED ON THE FOURTH UNIVERSAL DEFINITIONS OF MYOCARDIAL INFARCTION. THE UPPER REFERENCE LIMIT (URL) OF TROPONIN, DEFINED THE 99TH PERCENTILE OF cTnI DISTRIBUTION IN A REFERENCE POPULATION, HAS BEEN CONFIRMED THE DECISION THRESHOLD FOR [place] DIAGNOSIS. Performed By: #### T SH, BNP, CMP, LIPID, T7 #### [facility] [address] [id number] Logan Payne HSTROP 9385.6 pg/mL Critically high 4.0-51.3 [facility] Comment on above: Result Comment: CUT- OFF POINTS HAVE BEEN ESTABLISHED BASED ON THE FOURTH UNIVERSAL DEFINITIONS OF MYOCARDIAL INFARCTION. THE UPPER REFERENCE LIMIT (URL) OF TROPONIN, DEFINED THE 99TH PERCENTILE OF cTnI DISTRIBUTION IN A REFERENCE POPULATION, HAS BEEN CONFIRMED THE DECISION THRESHOLD FOR [place] DIAGNOSIS. Performed By: #### C MP, HSTROPN #### [facility] [address] [place], [place] [address] Dr. Logan Payne TYPE AND SCREENon 06-09-2022 TYPE AND SCREEN Negative Normal [facility] Comment on above: Performed By: #### T SH, BNP, CMP, LIPID, T7 #### [facility] [address] [place], [place] [address] Dr. Logan Payne Troponin I High Sensitivityo n 06-09-2022 Troponin I High Sensitivity 6364 pg/mL Off scale high 0-15 [facility] Comment on above: Result Comment: Resu lts called at 1303 on 06/09/22 PERFORMED BY: [facility] [address] [place] [address] PATHOLOGIST PEST CONTROLLER ASSISTANT PILAR VILLARREAL M.D. Performed By: #### L IPID, [address] eA #### [facility] [address] [id number] [facility] Troponin I High Sensitivity 6431 pg/mL Off scale high 0-15 [facility] Comment on above: Result Comment: Resu lts called at 1006 on 06/09/22 PERFORMED BY: [place] [address] PATHOLOGIST PEST CONTROLLER ASSISTANT PILAR VILLARREAL M.D. Performed By: #### L IPID, [address] eA #### [facility] [address] [place] [id number] [facility] Troponin I High Sensitivity 6373 pg/mL Off scale high 0-15 [facility] Comment on above: Result Comment: Resu lts called at 0710 on 06/09/22 PERFORMED BY: [place] [address] PATHOLOGIST PEST CONTROLLER ASSISTANT PILAR VILLARREAL M.D. Performed By: #### G LULS #### Point of Care testing , Vit. B12/Folate Profileon Cobalamin (Vitamin B12) [Mass/Vol] 480 pg/mL Normal 180-914 [facility] Comment on above: Order Comment: Comme nt addon Performed By: #### G LULS #### Point of Care testing , Folate > 22.3 Normal >5.9 [facility] Comment on above: Order Comment: Comme nt addon Result Comment: Niyah te reference range: >5.9 ng/ml The WHO technical consultation on folate and vitamin b12 deficiencies has determined that folate concentrations less than 4 ng/ml are considered deficient. PERFORMED BY: [facility] [address] [facility] [id number] PATHOLOGIST PEST CONTROLLER ASSISTANT PILAR VILLARREAL M.D. Performed By: #### G LULS #### Point of Care testing , BASIC METABOLIC PANELon 11-12 Calcium [Mass/Vol] 9.1 mg/dL Normal 8.6-10.3 [facility] Comment on above: Order Comment: No: D o not add to previous draw Performed By: #### 0 0071, [id number] #### [facility] [address] [place] [address], [place] Chloride [Moles/Vol] 104 mmol/L Normal 98-107 [facility] Comment on above: Order Comment: No: D o not add to previous draw Performed By: #### 0 0071, 24936 #### [facility] [address] [place] [address], [place] CO2 [Moles/Vol] 22 mmol/L Normal 21-31 [facility] Comment on above: Order Comment: No: D o not add to previous draw Performed By: #### 0 0071, 46463 #### [facility] [address] [place] [address], [place] Creatinine [Mass/Vol] 0.80 mg/dL Normal 0.60-1.20 [facility] Comment on above: Order Comment: No: D o not add to previous draw Performed By: #### 0 0071, 02945 #### [facility] [address] [place] [address], [place] GFR/1.73 sq M.predicted among blacks MDRD (S/P/Bld) [Vol rate/Area] mL/min/{1.73_m2} Normal >60 [facility] Comment on above: Order Comment: No: D o not add to previous draw Result Comment: Calc ulation may not be valid for patients over 70 years Performed By: #### 0 0071, 97493 #### [facility] [address] [place] [address], [place] GFR/1.73 sq M.predicted among non-blacks MDRD (S/P/Bld) [Vol rate/Area] mL/min/{1.73_m2} Normal >60 [facility] Comment on above: Order Comment: No: D o not add to previous draw Result Comment: Calc ulation may not be valid for patients over 70 years Performed By: #### 0 0071, 69444 #### [facility] [address] [place] [address], [place] Glucose [Mass/Vol] 99 mg/dL Normal 70-100 [facility] Comment on above: Order Comment: No: D o not add to previous draw Performed By: #### 0 0071, 14881 #### [facility] [address] [place] [address], [place] Potassium [Moles/Vol] 4.2 mmol/L Normal 3.5-5.1 [facility] Comment on above: Order Comment: No: D o not add to previous draw Performed By: #### 0 0071, 95671 #### [facility] [address] [place] [address], [place] Sodium [Moles/Vol] 137 mmol/L Normal 136-145 [facility] Comment on above: Order Comment: No: D o not add to previous draw Performed By: #### 0 0071, 33812 #### [facility] [address] [place] [address], [place] Urea nitrogen [Mass/Vol] 11 mg/dL Normal 7-25 [facility] Comment on above: Order Comment: No: D o not add to previous draw Performed By: #### 0 0071, 71853 #### [facility] [address] [place] [address], [place] CBC COMPLETE BLOOD COUNTon 0 - Erythrocyte distribution width (RBC) [Ratio] 12.9 % Normal 11.5-15.0 [facility] Comment on above: Order Comment: No: D o not add to previous draw Performed By: #### 3 2043 #### [facility] [address] [place] [address], [place] Hematocrit (Bld) [Volume fraction] 42.7 % Normal 36.0-45.0 [facility] Comment on above: Order Comment: No: D o not add to previous draw Performed By: #### 3 2043 #### [facility] [address] [place] [address], [facility] Hemoglobin (Bld) [Mass/Vol] 14.3 g/dL Normal 12.0-15.0 [facility] Comment on above: Order Comment: No: D o not add to previous draw Performed By: #### 3 2043 #### [facility] [address] [place] [address], [facility] MCH (RBC) [Entitic mass] 33.9 pg High 27.0-33.0 [facility] Comment on above: Order Comment: No: D o not add to previous draw Performed By: #### 3 2043 #### [facility] [address] [place] [place] [address], [facility] MCHC (RBC) [Mass/Vol] 33.5 g/dL Normal 32.0-35.0 [facility] Comment on above: Order Comment: No: D o not add to previous draw Performed By: #### 3 2043 #### [facility] [address] [facility] [place] [address], [facility] MCV (RBC) [Entitic vol] 101.2 fL High 82.0-98.0 [facility] Comment on above: Order Comment: No: D o not add to previous draw Performed By: #### 3 2043 #### [facility] [address] [facility] [place] [address], [facility] Nucleated RBC/100 WBC (Bld) [Ratio] 0 % Normal 0-0 [facility] Comment on above: Order Comment: No: D o not add to previous draw Performed By: #### 3 2043 #### [facility] [address] [place] [address], [facility] PLAT CNT 211 10*3/uL Normal 150-400 [facility] Comment on above: Order Comment: No: D o not add to previous draw Performed By: #### 3 2043 #### [facility] [address] [place] [address], [facility] RBC (Bld) [#/Vol] 4.22 10*6/uL Normal 3.80-5.00 [facility] Comment on above: Order Comment: No: D o not add to previous draw Performed By: #### 3 2043 #### [facility] [address] [facility] [place] [address], [facility] WBC (Bld) [#/Vol] 11.25 10*3/uL High 4.00-10.60 [facility] Comment on above: Order Comment: No: D o not add to previous draw Performed By: #### 3 2043 #### [facility] [address] [place] [address], [facility] HEMOGLOBIN A1Con 11-25-2021 Glucose [Moles/Vol] 128 mmol/L Normal [facility] Comment on above: Order Comment: If no t done in EDNo: Do not add to previous draw Performed By: #### 3 2043 #### [facility] [address] [place] [address], [facility] HbA1c (Bld) [Mass fraction] 6.1 % High 4.0-6.0 [facility] Comment on above: Order Comment: If no t done in EDNo: Do not add to previous draw Performed By: #### 3 2043 #### [facility] [address] [place] [address], [facility] MAGNESIUM BLOODon 11-25-2021 Magnesium [Mass/Vol] 1.8 mg/dL Low 1.9-2.7 [facility] Comment on above: Order Comment: No: D o not add to previous draw Performed By: #### 0 0071, 81706 #### [facility] [address] [place] [address], [facility] PORTABLE CHEST 1 VIEWon 11-12 PORTABLE CHEST 1 VIEW [facility] Department of Radiology [address] [place] [id number] Patient Name: ABDIRAHMAN GOMEZ : 1940 Sex: F Age: Race: White Pt. Location: [id number] Patient Status: I Ordered Date: 11/25/2021 10:05:00 [...] edema. Electronically signed: Melania Lay. Transcribed by: [email or web address], User Resident: Electronically Signed by: MELANIA LAY @ 11/25/2021 10:44 AM Normal [facility] Comment on above: Order Comment: Pneum othorax Cardiovascular Lab Reporton 11-24-2021 Cardiovascular Lab Report [facility] Patient Name: Abdirahman Gomez [facility] MR #: [id number] Physician: Sarabjit Vicente MD Department of Service Date: 11/24/2021 Medicine Birthdate: 1940 Division of Room #: 3AB [id number] Cardiology Adult Cardiovascular Services [facility] [address] [place] [id number] Cardiovascular Laboratory Report PACEMAKER IMPLANT PROCEDURE NOTE DATE OF PROCEDURE: 11/24/2021 PERFORMING PHYSICIAN: Dr. Sarabjit Vicente CONSENT: Patient LOCATION: EP Lab PROCEDURE PERFORMED: 1. Implantation of pacemaker ([employer]). 2. 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 She had syncope from this and subsequently was transferred here. Since the admission to [facility], she had a fairly recently good sinus [...] using modified seldinger technique using a 5 Taiwanese micro-puncture needle on two occasions and 0.35 [...] pocket was created for the device. 6 Taiwanese Safesheaths were placed over the wire. An active fixation [employer] pacing lead was then delivered through [...] 1-0 Silk sutures. Then an active fixation [employer] lead was delivered through the 6Fsheath [...] immediate procedural complications were noted. Device info: [employer] Accolade MRI Model# L311 Serial# [id number] RA lead: Model# INGEVITY 7840 (45cms) Serial# [id number] SensinmV Threshold: 0.8V@0.4ms Impedance: 590 Ohms RV lead: Model# INGEVITY 7841 (52cms) Serial# [id number] Sensin.5mV Threshold: 0.4V@0.4ms Impedance: 1125 Ohms POST PROCEDURE EXAM: Patient was hemodynamically stable. COMPLICATIONS: None. ESTIMATED BLOOD LOSS: 15cc IMPRESSION: 1. Successful dual chamber pacemaker with excellent pacing and sensing parameters. RECOMMENDATIONS: 1 Occlusive dressing to be removed after 2 weeks. 2. Do not wet the incision for 7 days. 3. No lifti (more content not included)... Normal [facility] APTTon 11-23-2021 aPTT Coag (Bld) [Time] 30.9 s Normal 25.0-35.0 [facility] Comment on above: Order Comment: No: [...] PURPOSE. Performed By: #### 3 2044 #### [facility] [address] [place] [place] [address], [facility] BASIC METABOLIC PANELon 11-12 Calcium [Mass/Vol] 9.5 mg/dL Normal 8.6-10.3 [facility] Comment on above: Order Comment: No: D o not add to previous draw Performed By: #### 1 0070, 15764 #### [facility] [address] [place] [address], [facility] Chloride [Moles/Vol] 104 mmol/L Normal 98-107 [facility] Comment on above: Order Comment: No: D o not add to previous draw Performed By: #### 1 0, 43356 #### [facility] [address] [place] [address], [place] CO2 [Moles/Vol] 21 mmol/L Normal 21-31 [facility] Comment on above: Order Comment: No: D o not add to previous draw Performed By: #### 1 69, 41327 #### [facility] [address] [place] [id number], [facility] Creatinine [Mass/Vol] 0.80 mg/dL Normal 0.60-1.20 [facility] Comment on above: Order Comment: No: D o not add to previous draw Performed By: #### 1 0070, 24623 #### [facility] [address] [place] [address], [place] GFR/1.73 sq M.predicted among blacks MDRD (S/P/Bld) [Vol rate/Area] mL/min/{1.73_m2} Normal >60 [facility] Comment on above: Order Comment: No: D o not add to previous draw Result Comment: Calc ulation may not be valid for patients over 70 years Performed By: #### 1 69, 62004 #### [facility] [address] [place] [address], [place] GFR/1.73 sq M.predicted among non-blacks MDRD (S/P/Bld) [Vol rate/Area] mL/min/{1.73_m2} Normal >60 [facility] Comment on above: Order Comment: No: D o not add to previous draw Result Comment: Calc ulation may not be valid for patients over 70 years Performed By: #### 1 69, 00046 #### [facility] [address] [place] [address], [place] Glucose [Mass/Vol] 109 mg/dL High 70-100 [facility] Comment on above: Order Comment: No: D o not add to previous draw Performed By: #### 1 69, 30277 #### [facility] [address] [place] [address], [place] Potassium [Moles/Vol] 3.9 mmol/L Normal 3.5-5.1 [facility] Comment on above: Order Comment: No: D o not add to previous draw Performed By: #### 1 69, 29652 #### [facility] [address] [place] [address], [place] Sodium [Moles/Vol] 138 mmol/L Normal 136-145 [facility] Comment on above: Order Comment: No: D o not add to previous draw Performed By: #### 1 69, 50257 #### [facility] [address] [place] [address], [facility] Urea nitrogen [Mass/Vol] 15 mg/dL Normal 7-25 [facility] Comment on above: Order Comment: No: D o not add to previous draw Performed By: #### 1 0070, 31338 #### [facility] [address] [place] [address], [facility] CBC COMPLETE BLOOD COUNTon 11-23-2021 Erythrocyte distribution width (RBC) [Ratio] 12.8 % Normal 11.5-15.0 [facility] Comment on above: Order Comment: No: D o not add to previous draw Performed By: #### 3 2043 #### [facility] [address] [place] [address], [facility] Hematocrit (Bld) [Volume fraction] 41.9 % Normal 36.0-45.0 [facility] Comment on above: Order Comment: No: D o not add to previous draw Performed By: #### 3 2043 #### [facility] [address] [place] [address], [facility] Hemoglobin (Bld) [Mass/Vol] 14.1 g/dL Normal 12.0-15.0 [facility] Comment on above: Order Comment: No: D o not add to previous draw Performed By: #### 3 2043 #### [facility] [address] [place] [address], [facility] MCH (RBC) [Entitic mass] 34.0 pg High 27.0-33.0 [facility] Comment on above: Order Comment: No: D o not add to previous draw Performed By: #### 3 2043 #### [facility] [address] [place] [address], [facility] MCHC (RBC) [Mass/Vol] 33.7 g/dL Normal 32.0-35.0 [facility] Comment on above: Order Comment: No: D o not add to previous draw Performed By: #### 3 2043 #### [facility] [address] [place] [address], [facility] MCV (RBC) [Entitic vol] 101.0 fL High 82.0-98.0 [facility] Comment on above: Order Comment: No: D o not add to previous draw Performed By: #### 3 2043 #### [facility] [address] [place] [address], [facility] Nucleated RBC/100 WBC (Bld) [Ratio] 0 % Normal 0-0 [facility] Comment on above: Order Comment: No: D o not add to previous draw Performed By: #### 3 2043 #### [facility] [address] [place] [address], [facility] PLAT CNT 218 10*3/uL Normal 150-400 [facility] Comment on above: Order Comment: No: D o not add to previous draw Performed By: #### 3 2043 #### [facility] [address] [address], [facility] RBC (Bld) [#/Vol] 4.15 10*6/uL Normal 3.80-5.00 [facility] Comment on above: Order Comment: No: D o not add to previous draw Performed By: #### 3 2043 #### [facility] [address] [place] [id number], [facility] WBC (Bld) [#/Vol] 9.49 10*3/uL Normal 4.00-10.60 [facility] Comment on above: Order Comment: No: D o not add to previous draw Performed By: #### 3 2043 #### [facility] [address] [place] [id number], [facility] MAGNESIUM BLOODon 11-23-2021 Magnesium [Mass/Vol] 2.0 mg/dL Normal 1.9-2.7 [facility] Comment on above: Order Comment: No: D o not add to previous draw Performed By: #### 1 0070, 65484 #### [facility] [address] [facility]. [address] POC SARS COV2 ANTIGEN NEGATI VEon 11-23-2021 POC SARS COV2 ANTIGEN NEG Negative Normal NEGATIVE [facility] Comment on above: Result Comment: Nega [...] antigen from SARS-CoV-2 in direct nasopharyngeal swab (SECURITY SYSTEM ENGINEER) specimens from individuals who are suspected of [...] Accreditation. Performed By: #### 3 2044 #### [facility] [address] [facility]. [address] PROTHROMBIN TIMEon INR Coag (PPP) [Relative time] 1.03 {INR} Normal 0.91-1.16 [facility] Comment on above: Order Comment: No: [...] 1995;108:[id number]. Performed By: #### 3 4 #### [facility] [address] [place] [address], [facility] PT Coag (PPP) [Time] 13.5 s Normal 12.3-14.8 [facility] Comment on above: Order Comment: No: D o not add to previous draw Result Comment: ALL RESULTS MUST BE INTERPRETED WITH RESPECT TO BLOOD DRAWING ARTIFACT OR DILUTION ERROR OF ANTICOAGULANT AT THE TIME OF SAMPLING. Performed By: #### 3 4 #### [facility] [address] BASIC METABOLIC PANELon 06- Calcium [Mass/Vol] 9.5 mg/dL Normal 8.6-10.3 [facility] Comment on above: Order Comment: No: D o not add to previous draw Performed By: #### 1 0070, 85061, 57917 #### [facility] [address] [place] [address], [facility] Chloride [Moles/Vol] 104 mmol/L Normal 98-107 [facility] Comment on above: Order Comment: No: D o not add to previous draw Performed By: #### 1 0070, 79877, 62749 #### [facility] [address] [place] [address], [facility] CO2 [Moles/Vol] 21 mmol/L Normal 21-31 [facility] Comment on above: Order Comment: No: D o not add to previous draw Performed By: #### 1 0070, 18191, 48399 #### [facility] [address] [place] [address], [facility] Creatinine [Mass/Vol] 0.98 mg/dL Normal 0.60-1.20 [facility] Comment on above: Order Comment: No: D o not add to previous draw Performed By: #### 1 0070, 88337, 05422 #### [facility] [address] [place] [address], [facility] eGFR- non- 54 ml/min/1.73sq m Abnormal >60 [facility] Comment on above: Order Comment: No: D o not add to previous draw Result Comment: Calc ulation may not be valid for patients over 70 years Performed By: #### 1 0070, , 64001 #### [facility] [address] [place] [address], [facility] GFR/1.73 sq M.predicted among blacks MDRD (S/P/Bld) [Vol rate/Area] mL/min/{1.73_m2} Normal >60 [facility] Comment on above: Order Comment: No: D o not add to previous draw Result Comment: Calc ulation may not be valid for patients over 70 years Performed By: #### 1 0, 17004, 28406 #### [facility] [address] [place] [address], [facility] Glucose [Mass/Vol] 110 mg/dL High 70-100 [facility] Comment on above: Order Comment: No: D o not add to previous draw Performed By: #### 1 0070, 29474, 55653 #### [facility] [address] [place] [address], [facility] Potassium [Moles/Vol] 4.9 mmol/L Normal 3.5-5.1 [facility] Comment on above: Order Comment: No: D o not add to previous draw Performed By: #### 1 0070, 88598, 98529 #### [facility] [address] [address], [facility] Sodium [Moles/Vol] 137 mmol/L Normal 136-145 [facility] Comment on above: Order Comment: No: D o not add to previous draw Performed By: #### 1 0070, 04002, 23168 #### [facility] [address] [facility] [place] [address], [facility] Urea nitrogen [Mass/Vol] 18 mg/dL Normal 7-25 [facility] Comment on above: Order Comment: No: D o not add to previous draw Performed By: #### 1 0, 96462, 03584 #### [facility] [address] [place] [address], [facility] CBC W/DIFFon 11-22-2021 ABS IMM GRANS 0.1 10*3/uL Normal 0.0-0.2 [facility] Comment on above: Performed By: #### 3 2043 #### [facility] [address] [facility] [place] [address], [facility] ABS NEUTROPHILS 6.8 10*3/uL Normal 1.6-7.6 [facility] Comment on above: Performed By: #### 3 2043 #### [facility] [address] [facility] [place] [address], [facility] Basophils (Bld) [#/Vol] 0.1 10*3/uL Normal 0.0-0.2 [facility] Comment on above: Performed By: #### 3 2043 #### [facility] [address] [facility] [place] [address], [facility] Basophils/100 WBC (Bld) 0.8 % Normal 0.0-1.0 [facility] Comment on above: Performed By: #### 3 2043 #### [facility] [address] [place] [address], [facility] Eosinophils (Bld) [#/Vol] 0.4 10*3/uL Normal 0.0-0.5 [facility] Comment on above: Performed By: #### 3 2043 #### [facility] [address] [place] [address], [facility] Eosinophils/100 WBC (Bld) 3.6 % Normal 0.0-6.0 [facility] Comment on above: Performed By: #### 3 2043 #### [facility] [address] [place] [address], [facility] Erythrocyte distribution width (RBC) [Ratio] 12.6 % Normal 11.5-15.0 [facility] Comment on above: Performed By: #### 3 2043 #### [facility] [address] [place] [place] [address], [facility] Hematocrit (Bld) [Volume fraction] 42.3 % Normal 36.0-45.0 [facility] Comment on above: Performed By: #### 3 2043 #### [facility] [address] [place] [address], [facility] Hemoglobin (Bld) [Mass/Vol] 14.9 g/dL Normal 12.0-15.0 [facility] Comment on above: Performed By: #### 3 2043 #### [facility] [address] [place] [id number], [facility] IMMATURE GRANS 0.5 % Normal 0.0-1.0 [facility] Comment on above: Performed By: #### 3 2043 #### [facility] [address] [place] [id number], [facility] Lymphocytes (Bld) [#/Vol] 2.3 10*3/uL Normal 1.2-4.0 [facility] Comment on above: Performed By: #### 3 2043 #### [facility] [address] [place] [address], [facility] Lymphocytes/100 WBC (Bld) 21.8 % Normal 20.0-45.0 [facility] Comment on above: Performed By: #### 3 2043 #### [facility] [address] [place] [address], [facility] MCH (RBC) [Entitic mass] 34.3 pg High 27.0-33.0 [facility] Comment on above: Performed By: #### 3 2043 #### [facility] [address] [place] [address], [facility] MCHC (RBC) [Mass/Vol] 35.2 g/dL High 32.0-35.0 [facility] Comment on above: Performed By: #### 3 2043 #### [facility] [address] [facility] [place] [address], [facility] MCV (RBC) [Entitic vol] 97.2 fL Normal 82.0-98.0 [facility] Comment on above: Performed By: #### 3 2043 #### [facility] [address] [place] [address], [facility] Monocytes (Bld) [#/Vol] 0.8 10*3/uL Normal 0.1-1.0 [facility] Comment on above: Performed By: #### 3 2043 #### [facility] [address] [place] [address], [facility] MONOS 7.8 % Normal 5.0-12.0 [facility] Comment on above: Performed By: #### 3 2043 #### [facility] [address] Neutrophils/100 WBC (Bld) 65.5 % Normal 40.0-72.0 [facility] Comment on above: Performed By: #### 2043 #### [facility] [address] [place] [address], [facility] Nucleated RBC/100 WBC (Bld) [Ratio] 0 % Normal 0-0 [facility] Comment on above: Performed By: #### 3 2043 #### [facility] [address] [place] [address], [facility] PLAT CNT 231 10*3/uL Normal 150-400 [facility] Comment on above: Performed By: #### 3 2043 #### [facility] [address] [place] [address], [facility] RBC (Bld) [#/Vol] 4.35 10*6/uL Normal 3.80-5.00 [facility] Comment on above: Performed By: #### 3 2043 #### [facility] [address] [place] [address], [facility] WBC (Bld) [#/Vol] 10.35 10*3/uL Normal 4.00-10.60 [facility] Comment on above: Performed By: #### 3 2043 #### [facility] [address] [place] [address], [facility] MAGNESIUM BLOODon 11-22-2021 Magnesium [Mass/Vol] 2.1 mg/dL Normal 1.9-2.7 [facility] Comment on above: Order Comment: No: D o not add to previous draw Performed By: #### 1 0070, 05106, 00384 #### [facility] [address] [place] [address], [facility] TROPONIN-Ion 11-22-2021 Troponin I.cardiac [Mass/Vol] 0.00 ng/mL Normal 0.00-0.04 [facility] Comment on above: Order Comment: No: D o not add to previous draw Result Comment: REFE RENCE RANGES: 0.00 - 0.04 ng/ml NORMAL 0.05 - 0.50 ng/ml INDETERMINATE > 0.50 ng/ml CONSISTENT WITH AN M.I. Performed By: #### 1 0070, 54807, 14429 #### [facility] [address] [place] [address], [facility] Troponin I.cardiac [Mass/Vol] 0.01 ng/mL Normal 0.00-0.04 [facility] Comment on above: Order Comment: No: D o not add to previous draw Result Comment: REFPietro FRAGA RANGES: 0.00 - 0.04 ng/ml NORMAL 0.05 - 0.50 ng/ml INDETERMINATE > 0.50 ng/ml CONSISTENT WITH AN M.I. Performed By: #### 3 5200 #### [facility] [address] ECHOCARDIO M/2D COMPLETEon 0 11-05-2021 ECHOCARDIO M/2D COMPLETE Patient: ABDIRAHMAN GOMEZ Exam Date: 11/05/2021 : 1940 Gender:F Ordering : VENUS TONG Admission #: [id number] Family : DR IRISH FAUSTIN . Order #: [id number] CLICK HERE TO VIEW EXAM ECHOCARDIOGRAM REPORT [...] Lopez M.D. on 11/06/2021 at 13:18 [facility] MG MAMM SCREEN 3D MILANA CADon 10-27-2021 MG MAMM SCREEN 3D MILANA CAD Patient: ABDIRAHMAN GOMEZ Exam Date: 10/27/2021 : 1940 Gender:F Ordering : DR IRISH FAUSTIN . Admission #: [id number] Family : Order #: [id number] CLICK HERE TO VIEW EXAM RADIOLOGY REPORT [...] Treatments None Family Cancers None LOCATION: [facility] BREAST COMPOSITION: Almost entirely fatty. FINDINGS: DIAGNOSTIC [...] MD on 10/27/2021 at 11:44 Normal [facility] INSULINon 06-28-2021 Insulin 12.1 uIU/mL Normal 2.6-24.9 [facility] Comment on above: Performed By: #### I NSULIN #### [facility] [address] [place] [address] Dr. Logan Payne BNPon 06-27-2021 Natriuretic peptide B (Bld) [Mass/Vol] 350.0 pg/mL Normal <=1,800.0 [facility] Comment on above: Performed By: #### T SH, BNP, CMP, LIPID, T7 #### [facility] [address] [place] [address] Dr. Logan Payne CBC AUTO DIFFon 06-27-2021 BASO # 0.1 103/ul Normal 0.0-0.1 [facility] Comment on above: Performed By: #### T SH, BNP, CMP, LIPID, T7 #### [facility] [address] [place] [address] Dr. Logan Payne Basophils/100 WBC (Bld) 1.1 % Normal 0.2-2.0 [facility] Comment on above: Performed By: #### T SH, BNP, CMP, LIPID, T7 #### [facility] [address] [place] [address] Dr. Logan Payne EO # 0.3 103/ul Normal 0.0-0.7 [facility] Comment on above: Performed By: #### T SH, BNP, CMP, LIPID, T7 #### [facility] [address] [place] [address] Dr. Logan Payne Eosinophils/100 WBC (Bld) 2.8 % Normal 0.9-7.0 [facility] Comment on above: Performed By: #### T SH, BNP, CMP, LIPID, T7 #### [facility] [address] [place] [address] Dr. Logan Payne Erythrocyte distribution width (RBC) [Ratio] 12.9 % Normal 11.0-15.0 [facility] Comment on above: Performed By: #### T SH, BNP, CMP, LIPID, T7 #### [facility] [address] [place] [address] [address] Logan Payne Hematocrit (Bld) [Volume fraction] 46.6 % Normal 36.0-48.0 [facility] Comment on above: Performed By: #### T SH, BNP, CMP, LIPID, T7 #### [facility] [address] [place] [address] Dr. Logan Payne Hemoglobin (Bld) [Mass/Vol] 15.0 g/dL Normal 12.0-16.0 [facility] Comment on above: Performed By: #### T SH, BNP, CMP, LIPID, T7 #### [facility] [address] [place] [address] Dr. Logan Payne IG # 0.05 10e3/ul Critically high 0.00-0.03 [facility] Comment on above: Performed By: #### T SH, BNP, CMP, LIPID, T7 #### [facility] [address] [place] [address] Dr. Logan Payne IG % 0.5 % Normal 0.0-0.5 [facility] Comment on above: Performed By: #### T SH, BNP, CMP, LIPID, T7 #### [facility] [address] [place] [address] Dr. Logan Payne LYMPH # 2.8 103/ul Normal 1.2-3.8 [facility] Comment on above: Performed By: #### T SH, BNP, CMP, LIPID, T7 #### [facility] [address] [place] [address] Dr. Logan Payne Lymphocytes/100 WBC (Bld) 27.4 % Normal 20.5-60.0 [facility] Comment on above: Performed By: #### T SH, BNP, CMP, LIPID, T7 #### [facility] [address] [place] [address] Dr. Logan Payne MANUAL DIFF REQ NO Normal [facility] Comment on above: Performed By: #### T SH, BNP, CMP, LIPID, T7 #### [facility] [address] [place] [address] [address] Logan Payne MCH (RBC) [Entitic mass] 33.9 pg Normal 26.7-34.0 [facility] Comment on above: Performed By: #### T SH, BNP, CMP, LIPID, T7 #### [facility] [address] [place] [address] Dr. Logan Payne MCHC (RBC) [Mass/Vol] 32.2 g/dL Normal 29.9-35.2 [facility] Comment on above: Performed By: #### T SH, BNP, CMP, LIPID, T7 #### [facility] [address] [place] [address] Dr. Logan Payne MCV (RBC) [Entitic vol] 105.2 fL Critically high 81.0-99 .0 [facility] Comment on above: Performed By: #### T SH, BNP, CMP, LIPID, T7 #### [facility] [address] [place] [address] Dr. Logan Payne MONO # 0.7 103/ul Normal 0.3-0.8 [facility] Comment on above: Performed By: #### T SH, BNP, CMP, LIPID, T7 #### [facility] [address] [place] [address] Dr. Logan Payne Monocytes/100 WBC (Bld) 7.2 % Normal 1.7-12.0 [facility] Comment on above: Performed By: #### T SH, BNP, CMP, LIPID, T7 #### [facility] [address] [place] [address] Dr. Logan Payne NEUT # 6.3 103/ul Normal 1.4-6.5 [facility] Comment on above: Performed By: #### T SH, BNP, CMP, LIPID, T7 #### [facility] [address] [place] [address] Dr. Logan Payne Neutrophils/100 WBC (Bld) 61.0 % Normal 43.0-75.0 [facility] Comment on above: Performed By: #### T SH, BNP, CMP, LIPID, T7 #### [facility] [address] [place] [address] [address] Logan Payne Platelet mean volume (Bld) [Entitic vol] 9.3 fL Critically low 9.5-13.5 [facility] Comment on above: Performed By: #### T SH, BNP, CMP, LIPID, T7 #### [facility] [address] [place] [address] [address] Logan Payne PLT 245 103/ul Normal 150-450 [facility] Comment on above: Performed By: #### T SH, BNP, CMP, LIPID, T7 #### [facility] [address] [place] [address] Dr. Logan Payne RBC 4.43 106/ul Normal 4.20-5.40 [facility] Comment on above: Result Comment: Macr ocytosis 1+ Performed By: #### T SH, BNP, CMP, LIPID, T7 #### [facility] [address] [address] [address] Logan Payne WBC 10.3 103/ul Normal 4.0-11.0 [facility] Comment on above: Performed By: #### T SH, BNP, CMP, LIPID, T7 #### [facility] [address] [place] [address] Dr. Logan Payne FREE THYROXINE INDEX T7on FTI 3.01 Normal [facility] Comment on above: Performed By: #### T SH, BNP, CMP, LIPID, T7 #### [facility] [address] [place] [address] Dr. Logan Payne T3U 31.0 % Normal 23.5-40.5 [facility] Comment on above: Performed By: #### T SH, BNP, CMP, LIPID, T7 #### [facility] [address] [place] [address] Dr. Logan Payne T4 [Mass/Vol] 9.70 ug/dL Normal 5.53-11.00 [facility] Comment on above: Performed By: #### T SH, BNP, CMP, LIPID, T7 #### [facility] [address] [address] [address] Logan Payne GLYCOHEMOGLOBIN A1Con 2021 ADA RECOMMENDATION ADA THERAPEUTIC TARGET 6.0 - 7.0 ACTION SUGGESTED > 7.0 Normal [facility] Comment on above: Performed By: #### A 1C #### [facility] [address] [address] [address] Logan Payne Glucose [Mass/Vol] 126 mg/dL Normal [facility] Comment on above: Performed By: #### A 1C #### [facility] [address] [address] [address] Logan Payne HbA1c (Bld) [Mass fraction] 6.0 % Normal <=6.0 [facility] Comment on above: Performed By: #### A 1C #### [facility] [address] [place] [address] Dr. Logan Payne IRONon 06-27-2021 Iron [Mass/Vol] 90.0 ug/dL Normal 37.0-170.0 [facility] Comment on above: Performed By: #### I GRANT #### [facility] [address] [address] [address] Logan Payne LIPID PROFILEon 06-27-2021 CHOL-HDL RATIO NORM SEE BELOW Normal [facility] Comment on above: Result Comment: 3.3 - 4.4 LOW RISK 4.4 - 7.1 AVERAGE RISK 7.1 - 11.0 MODERATE RISK >11.0 HIGH RISK Performed By: #### T SH, BNP, CMP, LIPID, T7 #### [facility] [address] [place] [address] Dr. Logan Payne Cholesterol [Mass/Vol] 209 mg/dL Critically high <=200 [facility] Comment on above: Performed By: #### T SH, BNP, CMP, LIPID, T7 #### [facility] [address] [address] [address] Logan Payne Cholesterol in HDL [Mass/Vol] 62 mg/dL Normal [facility] Comment on above: Performed By: #### T SH, BNP, CMP, LIPID, T7 #### [facility] [address] [address] [address] Logan Payne Cholesterol in LDL [Mass/Vol] 104.2 mg/dL Normal [facility] Comment on above: Performed By: #### T SH, BNP, CMP, LIPID, T7 #### [facility] [address] [address] [address] Logan Payne Cholesterol.total/Gabriela sterol in HDL [Mass ratio] 3.4 {ratio} Normal [facility] Comment on above: Performed By: #### T SH, BNP, CMP, LIPID, T7 #### [facility] [address] [address] [address] Logan Payne HDL NORMAL > or = 60 mg/dl - LO W CARDIOVASCULAR RISK <40 mg/dl - HIGH CARDIOVASCULAR RISK Normal [facility] Comment on above: Performed By: #### T SH, BNP, CMP, LIPID, T7 #### [facility] [address] [address] [address] Logan Payne LDL CALC NORMAL SEE BELOW Normal [facility] Comment on above: Result Comment: <100 mg/dl OPTIMAL 100 - 129 mg/dl NEAR OR ABOVE OPTIMAL 130 - 159 mg/dl BORDERLINE HIGH 160 - 189 mg/dl HIGH >190 mg/dl VERY HIGH Performed By: #### T SH, BNP, CMP, LIPID, T7 #### [facility] [address] [address] [address] Logan Payne Triglyceride [Mass/Vol] 214 mg/dL Critically high <=150 [facility] Comment on above: Performed By: #### T SH, BNP, CMP, LIPID, T7 #### [facility] [address] [address] [address] Logan Payne VLDL CALC 42.8 mg/dL Normal [facility] Comment on above: Performed By: #### T SH, BNP, CMP, LIPID, T7 #### [facility] [address] [address] [address] Logan Payne PROF 14(COMP METB)on 022 Albumin [Mass/Vol] 4.3 g/dL Normal 3.5-5.0 [facility] Comment on above: Performed By: #### T SH, BNP, CMP, LIPID, T7 #### [facility] [address] [address] [address] Logan Payne Albumin/Globulin [Mass ratio] 1.0 {ratio} Normal [facility] Comment on above: Performed By: #### T SH, BNP, CMP, LIPID, T7 #### [facility] [address] [address] [address] Logan Payne ALP [Catalytic activity/Vol] 108 U/L Normal 38-126 [facility] Comment on above: Performed By: #### T SH, BNP, CMP, LIPID, T7 #### [facility] [address] [address] [address] Logan Payne ALT [Catalytic activity/Vol] 59 U/L Critically high 9-52 [facility] Comment on above: Performed By: #### T SH, BNP, CMP, LIPID, T7 #### [facility] [address] [place] [address] Dr. Logan Payne Anion gap [Moles/Vol] 16.0 mmol/L Normal [facility] Comment on above: Performed By: #### T SH, BNP, CMP, LIPID, T7 #### [facility] [address] [address] [address] Logan Payne AST [Catalytic activity/Vol] 52 U/L Critically high 14-36 [facility] Comment on above: Performed By: #### T SH, BNP, CMP, LIPID, T7 #### [facility] [address] [address] [address] Logan Payne Bilirubin [Mass/Vol] 0.3 mg/dL Normal 0.2-1.3 [facility] Comment on above: Performed By: #### T SH, BNP, CMP, LIPID, T7 #### [facility] [address] [place] [address] Dr. Logan Payne Calcium [Mass/Vol] 9.9 mg/dL Normal 8.4-10.2 [facility] Comment on above: Performed By: #### T SH, BNP, CMP, LIPID, T7 #### [facility] [address] [address] [address] Logan Payne Chloride [Moles/Vol] 105 mmol/L Normal 98-107 [facility] Comment on above: Performed By: #### T SH, BNP, CMP, LIPID, T7 #### [facility] [address] [address] [address] Logan Payne CO2 [Moles/Vol] 21.6 mmol/L Critically low 22.0-30.0 [facility] Comment on above: Performed By: #### T SH, BNP, CMP, LIPID, T7 #### [facility] [address] [address] [address] Logan Payne Creatinine [Mass/Vol] 1.01 mg/dL Normal 0.52-1.04 [facility] Comment on above: Performed By: #### T SH, BNP, CMP, LIPID, T7 #### [facility] [address] [place] [address] Dr. Logan Payne EGFR-AF AUSTRIAN >60 Normal >=60 [facility] Comment on above: Performed By: #### T SH, BNP, CMP, LIPID, T7 #### [facility] [address] [address] [address] Logan Payne EGFR-NON AF AUSTRIAN 53 mL/min/1.73m2 Critically low >=60 [facility] Comment on above: Performed By: #### T SH, BNP, CMP, LIPID, T7 #### [facility] [address] [address] [address] Logan Payne Globulin (S) [Mass/Vol] 4.1 g/dL Normal [facility] Comment on above: Performed By: #### T SH, BNP, CMP, LIPID, T7 #### [facility] [address] [address] [address] Logan Payne Glucose [Mass/Vol] 117 mg/dL Critically high 74-106 [facility] Comment on above: Performed By: #### T SH, BNP, CMP, LIPID, T7 #### [facility] [address] [address] [address] Logan Payne Potassium [Moles/Vol] 4.6 mmol/L Normal 3.4-5.0 [facility] Comment on above: Performed By: #### T SH, BNP, CMP, LIPID, T7 #### [facility] [address] [address] [address] Logan Payne Protein [Mass/Vol] 8.4 g/dL Critically high 6.1-8.2 [facility] Comment on above: Performed By: #### T SH, BNP, CMP, LIPID, T7 #### [facility] [address] [address] [address] Logan Payne Sodium [Moles/Vol] 138 mmol/L Normal 137-145 [facility] Comment on above: Performed By: #### T SH, BNP, CMP, LIPID, T7 #### [facility] [address] [place] [address] Dr. Logan Payne Urea nitrogen [Mass/Vol] 18.0 mg/dL Critically high 7.0-17.0 [facility] Comment on above: Performed By: #### T SH, BNP, CMP, LIPID, T7 #### [facility] [address] [place] [address] Dr. Logan Payne Urea nitrogen/Creatinine [Mass ratio] 17.8 mg/mg Normal [facility] Comment on above: Performed By: #### T SH, BNP, CMP, LIPID, T7 #### [facility] [address] [address] [address] Logan Payne TSHon 06-27-2021 TSH 1.510 uIU/mL Normal 0.470-4.680 [facility] Comment on above: Performed By: #### T SH, BNP, CMP, LIPID, T7 #### [facility] [address] [address] [address] Logan Payne TSH RANGE SEE BELOW Normal [facility] Comment on above: Result Comment: <0.3 4 UIU/ml HYPERTHYROID 0.34-5.60 UIU/ml EUTHYROID >5.60 UIU/ml HYPOTHYROID Performed By: #### T SH, BNP, CMP, LIPID, T7 #### [facility] [address] [place], [place] [address] Dr. Logan Payne Vital Signs Date Time Vital Sign Value Performing Clinician Faci lity 06-25-2022 11:18-0500 Body temperature 97.8 [degF] MD Irish Faustin Work Phone: [facility] 06-25-2022 11:18-0500 Diastolic blood pressure 70 mm[Hg] MD Irish Faustin Work Phone: [facility] 06-25-2022 11:18-0500 Heart rate 69 /min MD Irish Faustin Work Phone: [facility] 06-25-2022 11:18-0500 SaO2% (BldA) [Mass fraction] 94 % MD Irish Faustin Work Phone: [facility] 06-25-2022 11:18-0500 Systolic blood pressure 140 mm[Hg] MD Irish Faustin Work Phone: [facility] 06-25-2022 04:17-0500 Respiratory rate 18 /min MD Irish Faustin Work Phone: [facility] 06-24-2022 07:18-0500 Body height 157.48 cm MD Irish Faustin Work Phone: [facility] 06-22-2022 11:19-0500 Body weight 67.2 kg MD Irish Faustin Work Phone: [facility] 06-16-2022 16:00-0500 Body temperature 97.6 [degF] MD Irish Faustin Work Phone: [facility] 06-16-2022 16:00-0500 Diastolic blood pressure 75 mm[Hg] MD Irish Faustin Work Phone: [facility] 06-16-2022 16:00-0500 Heart rate 72 /min MD Irish Faustin Work Phone: [facility] 06-16-2022 16:00-0500 Respiratory rate 16 /min MD Irish Faustin Work Phone: [facility] 06-16-2022 16:00-0500 SaO2% (BldA) [Mass fraction] 96 % MD Irish Faustin Work Phone: [facility] 06-16-2022 16:00-0500 Systolic blood pressure 127 mm[Hg] MD Irish Faustin Work Phone: [facility] 06-16-2022 06:00-0500 Body weight 68.8 kg MD Irish Faustin Work Phone: [facility] 06-11-2022 15:23-0500 Body height 157.48 cm MD Irish Faustin Work Phone: [facility] 06-09-2022 12:00-0500 Inhaled oxygen flow rate 2 L/min MD Irish Faustin Work Phone: [facility] Encounters Encounter Date Encounter Type Care Provider Facility Start: 05-18-2023 End: 05-18-2023 ambulatory [facility] Start: 03-17-2023 End: 03-17-2023 ambulatory [facility] Start: 12-28-2022 End: 12-28-2022 [facility] Start: 11-17-2022 End: 11-17-2022 ambulatory [facility] Start: 07-08-2022 End: 07-08-2022 ambulatory [facility] Start: 06-16-2022 End: 06-25-2022 Evaluation and management of inpatient Stiven Zaman Facility:[facility] Start: 06-16-2022 End: 06-25-2022 Evaluation and management of inpatient MD Irish Faustin Work Phone: [facility] Work Phone: Start: 06-13-[address] Yoav Prado Facility:[id number] Start: 06-11-[address] Irish Faustin Facility:[facility] Start: 06-09-[address] Irish Faustin Facility:[id number] Start: 06-09-2022 End: 06-16-2022 Evaluation and management of inpatient Chema Annia Facility:[facility] Start: 06-09-2022 End: 06-16-2022 Evaluation and management of inpatient MD Irish Faustin Work Phone: [facility] Work Phone: Start: 06-08-2022 End: 06-09-[address] IRISH FAUSTIN Facility:[facility] Start: 01-12-2022 ambulatory VENUS TONG Facility :[facility] Start: 11-27-2021 ambulatory VENUS TONG Facility :[facility] Start: 11-22-2021 End: 11-25-2021 Evaluation and management of inpatient PHYSICIAN UNKNOWN Facility:[facility] Start: 11-05-2021 End: 11-06-2021 ambulatory VENUS TONG [...] Date Care Activity Detail Author Start: 06-25-2022 [facility] Start: 06-16-2022 [facility] Start: 06-16-2022 Hospital admission [facility] Start: 06-16-2022 Referral to clinical geochemist [facility] Start: 06-16-2022 [facility] Start: 06-12-2022 Doppler ultrasonogra phy of bilateral carotid arteries US carotid doppler BI [facility] Start: 06-12-2022 US.doppler Carotid a rteries - bilateral [facility] Start: 06-09-2022 Hospital admission [facility] Patient Education Stroke (DC) [facility] Work Phone: Patient referral [facility] Work Phone: [facility] Payers Date Payer Category Payer Self-pay 1959 Medicare [id number] 1959 Private Health Insurance [id number] 1959 Self-pay [id number] 1940 Unknown [id number] 2.16.8 [id number] 1940 Unknown [id number] 2.16.84 [id number] 1940 Unknown [id number] 2.16.84 [id number] 1940 Unknown [id number] 2.16.84 [id number] 1940 Unknown [id number] 2.16.84 [id number] 1940 Unknown [id number] 2.16.84 [id number] 1940 Unknown [id number] 2.16.84 [id number] 1940 Unknown [id number] 2.16. [id number] 1940 Unknown [id number] 2.16. [id number] Unknown [id number] 2.16.8 [id number] Unknown [id number] 2.16.8 [id number] Social History Date Type Detail Facility Start: 06-09-2022 End: 06-17-2022 Tobacco smoking status NHIS Never smoked tobacco (finding) [facility] Start: 1940 Sex Assigned At Female F [facility] Goals Date Patient Goal Desired Activity /State Functional Status Date Assessment Result Facility 06-25-2022 Functional status Patient at Baseline [facility] Work Phone: 06-16-2022 Functional status Patient is Pro gressing Toward Baseline [facility] Work Phone: Mental Status Date Assessment Result Facility 06-25-2022 Cognitive function Cognitive Sta tus Patient at Baseline [facility] Work Phone: 06-16-2022 Cognitive function Cognitive Sta tus Patient is Progressing Toward Baseline [facility] Work Phone: Clinical Notes 11-26-2021 to 03-17-2023 Note Date & Type Note Facility 03-17-[address] [facility] Cardiology Clinic Note Chief Complaint: Patient here for follow up stress test done in Jan 2023. Shortly after that she was admitted to [facility] for severe sepsis and pneumonia. Daughter states [...] in the morning., Disp: , Rfl: HYDROcodone-acetaminophen ([place]) 5-325 mg tablet, Take 5-325 tablets by [...] 10 mg tablet, Disp: , Rfl: omega 7-mcd-onz-fish oil (Fish OiL) 1,000 mg (120 mg-180 [...] extremities. PSYCH: ap (more content not included)... [facility] 12-28-2022 Note Cardiology Clinic No te [...] in the morning., Disp: , Rfl: HYDROcodone-acetaminophen ([place]) 5-325 mg tablet, Take 5-325 tablets by [...] 10 mg tablet, Disp: , Rfl: omega 9-ufz-dro-fish oil (Fish OiL) 1,000 mg (120 mg-180 [...] 0.5 mg tabl (more content not included)... [facility] 07-08-[address] [facility] Cardiology Clinic Note Chief Complaint: Patient being seen via telephone call for follow up [facility] She was started on Eliquis. Daughter states [...] was initiated by the patient and conducted eah-avpc-cv-face with use of audio-only real time telephone communication between patient and provider for a virtual visit. Verbal consent to provide and bill for this service was obtained on 07/08/2022. Alexandria Santos MD, MPH, [facility], [facility], [facility] Interventional Cardiology Pager Email: [email or web address] 06-24-2022 Discharge summary Note Date/Time June 24, 2022 12:11pm [facility] [address] [place] [address] Discharge Summary Signed Patient: Abdirahman Gomez MR#: [id number] : 1940 Acct:[id number] Age/Sex: 81 / F Adm Date: 3 Loc: Room: [address] [place] [address]: Stiven Zaman MD Copies to: [...] lobe. She presented to outside facility around [place] with several days of generalized weakness. Her troponins were elevated. She was transferred to [facility]. Cardiology was consulted, did not feel [...] blood in the stool on admission to [place], consistent with lower GI bleed. She was [...] ADLs. She will be discharged home with [facility] and [facility] home health services tomorrow. She already has [...] Plan Discharge Plan Patient Disposition: Home Health [facility] Activity: Ambulate as Tolerated Diet: Low-Sodium and Low-Cholesterol Comment: Heart Healthy 3-4gm Sodium Additional Instructions: -Code Status: Full Code -Activity: Ambulate as tolerated -Diet: Heart Healthy 3-4gm Sodium, low cholesterol -Follow feeding strategies: Sit upright 90 degrees, pacing/slow rate, alternate liquids/solids. Your Home Health agency is [facility] ( ). They will contact you within [...] <Electronically signed by KIM Crowell> 06/25/22 1308 [facility] Work Phone: 1(572) 221-318801-11-2023 Hospital Discharge instructionsAmbulatory Orders* Initiate Home Health Time Frame: 06/24/22, Location: Determined By Patient Additional Instructions -Code Status: Full Code -Activity: Ambulate as tolerated -Diet: Heart Healthy 3-4gm Sodium, low cholesterol -Follow feeding strategies: Sit upright 90 degrees, pacing/slow rate, alternate liquids/solids. Your Home Health agency is [facility] ( ). They will contact you within [...] office to inform them prior to your appointment.[facility] Work Phone: 1(623) 849-618101-10-2023 Progress note Author Stiven Zaman [facility] June 23, 2022 9:35pm Note Date/Time June 22, 2022 11 :35am [facility] [address] [place] [address] Physiatry(Rehab) Progress Note Signed Patient: Abdirahman Gomez MR#: [id number] : 1940 Acct:[id number] Age/Sex: 81 / F Adm Date: 3 Loc: Room: [address] [place] [address] Type: ADM IN Attending Dr: Stiven Zaman [...] lobe. She presented to outside facility around [place] with several days of generalized weakness. Her troponins were elevated. She was transferred to [facility]. Cardiology was consulted, did not feel [...] blood in the stool on admission to [place], consistent with lower GI bleed. She was [...] Insight: Good Judgment: Good Objective <Lori Crowell, HOME HEALTH TRAVEL OT - Last Filed: 06/22/22 11:45> Labs 06/17/22 [...] mg 06/16/22 18:36 Bisacodyl 10 Mg Supp.Rect MT 06/16/23 18:35 DAILY PRN Constipation Carvedilol 12.5 mg 06/16/22 21:00 06/22/22 09:13 Carvedilol 12.5 Mg Tablet PO 06/16/23 20:59 12.5 mg BID JAK Administration Docusate Sodium 100 mg 06/16/22 18:36 Docusate 100 Mg Capsule PO 06/16/23 18:35 BID PRN Constipation Docusate Sodium 283 mg 06/16/22 18:36 Docusate Enema 283 Mg/5 Ml Enema MT 06/16/23 18:35 DAILY PRN Constipation Furosemide 20 [...] tizanidine with h/o afib. Chronic pain received [place] 5/[address] Faustin. Will change from q4h to twice daily as at home. OARRS reviewed. Bowel and bladder: Continent. Skin: No pressure ulcers Sleep: Optimize sleep / wake. DVT prophylaxis: Covered with Eliquis. Functional status: Ambulatory. Needs assist. Left hemiplegia. Impaired endurance. Discharge planning: Home 7-10 days. I spent greater than 15 minutes for services, including tbbb-pw-hmcz encounter with the patient, discussion of the case, plan of care, and exam; and wzylpjf-pb-jnuj activities, such as reviewing pertinent cardiology clinical consultant documentation, recent therapy notes, laboratory and radiology studies, and discussion of case with care team including physician, nursing, case filler, and therapists. More than 50 % of [...] tizanidine with h/o afib. Chronic pain received [place] 5/[address] Faustin. Will change from q4h to twice daily as at home. OARRS reviewed. Bowel and bladder: Continent. Skin: No pressure ulcers Sleep: Optimize sleep / wake. DVT prophylaxis: Covered with Eliquis. Functional status: Ambulatory. Needs assist. Left hemiplegia. Impaired endurance. Discharge planning: Home end of week I spent greater than 15 minutes for services, including ayms-co-jcpi encounter with the patient, discussion of the case, plan of care, and exam; and egmjiyt-lx-usva activities, such as reviewing pertinent cardiology clinical consultant documentation, recent therapy notes, laboratory and radiology studies, and discussion of case with care team including physician, nursing, case filler, and therapists. More than 50 % of time was spent on patient/family counseling or coordination ofcare. Decision Plan: I completed a substantive portion of this encounter, the medical decision makingportion of this note in its entirety, including Allied health note review, nursing note review, cardiology clinical consultant note review, discussion with nursing and case management, and more than 50% of my time was spent on counseling and coordination of care, time spent 25 minutes Patient was personally seen by me, Dr. Zaman, on the day of encounter, reviewed the history and the relevant portions of the chart, including current orders, allied health and cardiology clinical consultant notes, labs/imaging and performed smith elements of exam and I formulated the plan of care and facilitated the medical decision making. Documented By: Stiven Zaman MD 06/22/22 1133 Signed By: <Electronically signed by Stiven Zaman MD> 06/23/225 <Electronically signed by KIM Crowell> 06/22/22 1145 [facility] Work Phone: 1(209) 253-414601-10-2023 Progress note Author Stiven Zaman [facility] June 23, 2022 9:25pm Note Date/Time June 23, 2022 1 2:28pm [facility] [address] [place] [address] Physiatry(Rehab) Progress Note Signed Patient: Abdirahman Gomez MR#: [id number] : 1940 Acct:[id number] Age/Sex: 81 / F Adm Date: 3 Loc: Room: 0A4720-0 Type: ADM IN Attending Dr: Stiven Zaman [...] lobe. She presented to outside facility around [place] with several days of generalized weakness. Her troponins were elevated. She was transferred to [facility]. Cardiology was consulted, did not feel [...] blood in the stool on admission to [place], consistent with lower GI bleed. She was [...] % (Auto) 55.7 Lymph % (Auto) 31.9 Edmunds % (Auto) 8.4 Eos % (Auto) 3.2 Baso % (Auto) 0.8 Nucleat RBC Rel Count 0.1 Neut # (Auto) 4.5 Lymph # (Auto) 2.6 Edmunds # (Auto) 0.7 Eos # (Auto) 0.3 [...] mg 06/16/22 18:36 Bisacodyl 10 Mg Supp.Rect MT 06/16/23 18:35 DAILY PRN Constipation Carvedilol 12.5 mg 06/16/22 21:00 06/23/22 10:00 Carvedilol 12.5 Mg Tablet PO 06/16/23 20:59 12.5 mg BID JAK Administration Docusate Sodium 100 mg 06/16/22 18:36 Docusate 100 Mg Capsule PO 06/16/23 18:35 BID PRN Constipation Docusate Sodium 283 mg 06/16/22 18:36 Docusate Enema 283 Mg/5 Ml Enema MT 06/16/23 18:35 DAILY PRN Constipation Furosemide 20 [...] tizanidine with h/o afib. Chronic pain received [place] 5/[address] Faustin. Will change from q4h totwice daily as at home. OARRS reviewed. Bowel and bladder: Continent. Skin: No pressure ulcers Sleep: Optimize sleep / wake. DVT prophylaxis: Covered with Eliquis. Functional status: Ambulatory. Needs assist. Left hemiplegia. Impaired endurance. Discharge planning: Home Wednesday or . I spent greater than 15 minutes for services, including pwya-oa-krst encounter with the patient, discussion of the case, plan of care, and exam; and epwgqjs-cz-ehmd activities, such as reviewing pertinent cardiology clinical consultant documentation, recent therapy notes, laboratory and radiology studies, and discussion of case with care team including physician, nursing, case filler, and therapists. More than 50 % of [...] tizanidine with h/o afib. Chronic pain received [place] 5/[address] Faustin. Will change from q4h to twice daily as at home. OARRS reviewed. Bowel and bladder: Continent. Skin: No pressure ulcers Sleep: Optimize sleep / wake. DVT prophylaxis: Covered with Eliquis. Functional status: Ambulatory. Needs assist. Left hemiplegia resolved. Impairedendurance. Discharge planning: Home Wednesday or , pending FI. I spent greater than 15 minutes for services, including [id number] encounter with the patient, discussion of the case, plan of care, and exam; and [id number]-[id number] activities, such as reviewing pertinent cardiology clinical consultant documentation, recent therapy notes, laboratory and radiology studies, and discussion of case with care team including physician, nursing, case filler, and therapists. More than 50 % of time was spent on patient/family counseling or coordination ofcare. Decision Plan: I completed a substantive portion of this encounter, the medical decision makingportion of this note in its entirety, including Allied health note review, nursing note review, cardiology clinical consultant note review, discussion with nursing and case management, and more than 50% of my time was spent on counseling and coordination of care, time spent 25 minutes Patient was personally seen by me, Dr. Zamna, on the day of encounter, reviewed the history and the relevant portions of the chart, including current orders, allied health and cardiology clinical consultant notes, labs/imaging and performed smith elements of exam and I formulated the plan of care and facilitated the medical decision making. Documented By: Stiven Zaman MD 06/23/221220 Signed By: <Electronically signed by Stiven Zaman MD> 06/23/222124 <Electronically signed by KIM Crowell> 06/23/228 [facility] Work Phone: 1([phone]) 229-581801-06-2023 Progress note Author Stiven Zaman [facility] June 19, 2022 3:19pm Note Date/Time June 19, 2022 3: 19pm [facility] [address] [place] [address] Physiatry(Rehab) Progress Note Signed Patient: Abdirahman Gomez MR#: [id number] : 1940 Acct:[id number] Age/Sex: 81 / F Adm Date: 3 Loc: Room: [address] [place] [address] Type: ADM IN Attending Dr: Stiven Zaman [...] lobe. She presented to outside facility around [place] with several days of generalized weakness. Her troponins were elevated. She was transferred to [facility]. Cardiology was consulted, did not feel [...] blood in the stool on admission to [place], consistent with lower GI bleed. She was [...] mg 06/16/22 18:36 Bisacodyl 10 Mg Supp.Rect MT 06/16/23 18:35 DAILY PRN Constipation Carvedilol 12.5 mg 06/16/22 21:00 06/19/22 08:26 Carvedilol 12.5 Mg Tablet PO 06/16/23 20:59 12.5 mg BID JAK Administration Docusate Sodium 100 mg 06/16/22 18:36 Docusate 100 Mg Capsule PO 06/16/23 18:35 BID PRN Constipation Docusate Sodium 283 mg 06/16/22 18:36 Docusate Enema 283 Mg/5 Ml Enema MT 06/16/23 18:35 DAILY PRN Constipation Furosemide 20 [...] tizanidine with h/o afib. Chronic pain received [place] 5/[address] Faustin. Will change [...] Allied health note review, nursing note review, cardiology clinical consultant note review, discussion with nursing and case management, and more than 50% of my time was spent on counseling and coordination of care, time spent 35 minutes Patient was personally seen by me, Dr. Zaman, on the day of encounter, reviewed the history and the relevant portions of the chart, including current orders, allied health and cardiology clinical consultant notes, labs/imaging and performed smith elements of exam and I formulated the plan of care and facilitated the medical decision making. Documented By: Stiven Zaman MD 06/19/221515 Signed By: <Electronically signed by Stiven Zaman MD> 06/19/22 8171 [facility] Work Phone: 1([phone]) 286-488501-05-2023 Progress note Author Stiven Zaman [facility] June 18, 2022 12:49pm Note Date/Time June 18, 2022 12 :49pm [facility] [address] [place] [address] Physiatry(Rehab) Progress Note Signed Patient: Abdirahman Gomez MR#: [id number] : 1940 Acct:[id number] Age/Sex: 81 / F Adm Date: 3 Loc: Room: [address] [place] [address] Type: ADM IN Attending Dr: Stiven Zaman [...] lobe. She presented to outside facility around [place] with several days of generalized weakness. Her troponins were elevated. She was transferred to [facility]. Cardiology was consulted, did not feel [...] blood in the stool on admission to [place], consistent with lower GI bleed. She was [...] mg 06/16/22 18:36 Bisacodyl 10 Mg Supp.Rect MT 06/16/23 18:35 DAILY PRN Constipation Carvedilol 12.5 mg 06/16/22 21:00 06/18/22 07:49 Carvedilol 12.5 Mg Tablet PO 06/16/23 20:59 12.5 mg BID JAK Administration Docusate Sodium 100 mg 06/16/22 18:36 Docusate 100 Mg Capsule PO 06/16/23 18:35 BID PRN Constipation Docusate Sodium 283 mg 06/16/22 18:36 Docusate Enema 283 Mg/5 Ml Enema MT 06/16/23 18:35 DAILY PRN Constipation Furosemide 20 [...] tizanidine with h/o afib. Chronic pain received [place] 5/[address] Faustin. Will change [...] Allied health note review, nursing note review, cardiology clinical consultant note review, discussion with nursing and case management, and more than 50% of my time was spent on counseling and coordination of care, time spent 30 minutes Patient was personally seen by me, Dr. Zaman, on the day of encounter, reviewed the history and the relevant portions of the chart, including current orders, allied health and cardiology clinical consultant notes, labs/imaging and performed smith elements of exam and I formulated the plan of care and facilitated the medical decision making. Documented By: Stiven Zaman MD 06/18/221245 Signed By: <Electronically signed by Stiven Zaman MD> 06/18/22 1249 [facility] Work Phone: 1([phone]) 924-801901-04-2023 History and physical note Author Stiven Zaman [facility] June 17, 2022 3:54pm Note Date/Time June 17, 2022 9: 40am [facility] [address] [place] [address] Physiatry (Rehab) H&P Signed Patient: Abdirahman Gomez MR#: [id number] : 1940 Acct:[id number] Age/Sex: 81 / F Adm Date: 3 Loc: Room: 9C1583-8 Type: ADM IN Attending Dr: Stiven Zaman [...] lobe. She presented to outside facility around [place] with several days of generalized weakness. Her troponins were elevated. She was transferred to [facility]. Cardiology was consulted, did not feel [...] blood in the stool on admission to [place], consistent with lower GI bleed. She was [...] Bisacodyl (Bisacodyl 10 Mg Supp.Rect) 10 mg MT DAILY PRN PRN Reason: Constipation Stop: 06/16/23 18:35 Carvedilol (Carvedilol 12.5 Mg Tablet) 12.5 mg PO BID JAK Stop: 06/16/23 20:59 Last Admin: 06/17/22 08:04 Dose: 12.5 mg Docusate Sodium (Docusate 100 Mg Capsule) 100 mg PO BID PRN PRN Reason: Constipation Stop: 06/16/23 18:35 Docusate Sodium (Docusate Enema 283 Mg/5 Ml Enema) 283 mg MT DAILY PRN PRN Reason: Constipation Stop: 06/16/23 [...] 0.5 Mg Tablet) 0.5 mg PO HS [facility] Stop: 06/16/23 21:59 Last Admin: 06/16/22 22:34 Dose: 0.5 mg Psyllium Hydrophilic Mucilloid (Psyllium Husk 3.4 Gm Packet) 1 packet PO BID [facility] Stop: 06/16/23 20:59 Last Admin: 06/17/22 08:04 [...] 40 Mg Tablet) 40 mg PO BID [facility] Stop: 06/16/23 20:59 Last Admin: 06/17/22 08:06 Dose: 40 mg Vitamin D (Cholecalciferol 125 Mcg (5,000 Units) Tablet) 125 mcg PO DAILY [facility] Stop: 06/17/23 08:59 Last Admin: 06/17/22 08:06 [...] % (Auto) 57.7 Lymph % (Auto) 29.1 [place] % (Auto) 9.4 Eos % (Auto) 2.4 Baso % (Auto) 1.4 Nucleat RBC Rel Count 0.0 Neut # (Auto) 6.3 Lymph # (Auto) 3.2 Edmunds # (Auto) 1.0 H Eos # (Auto) [...] 2 weeks Expected Discharge Destination: Home Rehabilitation [facility]: 01.1 Primary Diagnosis: Stroke To have patient become more independent and to return home. Medical/ Functional Prognosis: Good Anticipated Functional Outcomes/Goals and Interventions: 1.Therapy Functional Outcome/Goal: Anticipate independent for bed mobility Anticipated interventions: Physician management, PT, OT, LEGAL CONSULTANT, , Dietitian, RehabNursing, Case management 2. Therapy Functional Outcome/Goal: Anticipate independent for transfers Anticipated interventions: Physician management, PT, OT, LEGAL CONSULTANT, Case management, Dietitian, Rehab Nursing 3. Therapy Functional Outcome/Goal: Anticipate independent for ambulation Anticipated interventions: Physician management, PT, OT, LEGAL CONSULTANT Case management, Dietitian, Rehab Nursing 4.Therapy Functional Outcome/Goal: Anticipate independent for self-care Anticipated interventions: Physician management, PT, OT, LEGAL CONSULTANT, Case management, Dietitian, Rehab Nursing 5.Therapy Functional Outcome/Goal: Anticipate independent for functional communication and swallowing Anticipated interventions: Physician management, PT, OT, LEGAL CONSULTANT, Case management, Dietitian, Rehab Nursing Required Therapy [...] additional therapy on as needed basis. Comments: LEGAL CONSULTANT to evaluate and treat patient?s cognition, language and communication skills, assess swallow function. Other: Dietitian, Rehab nursing, Wound, P&O, Neuropsychology as needed RATIONALE FOR IRF ADMISSION: Patient has both medical and functional complexities that require 24 hour daily monitoring and intervention from Bridal Consultant as well as other consulting physicians including internal medicine as well as 24 hour daily revenue cycle administrator nursing - for medical safe / optimal management. Patient requires interdisciplinary therapy team rehabilitation care including OT, PT, LEGAL CONSULTANT, SW, Psychology, Rehab Nursing, requires and can [...] tizanidine with h/o afib. Chronic pain received [place] 5/[address] Faustin. Will change [...] Allied health note review, nursing note review, cardiology clinical consultant note review, discussion with nursing and case management, and more than 50% of my time was spent on counseling and coordination of care, time spent 55 minutes Patient was personally seen by me, Dr. Zaman, on the day of encounter, reviewed the history and the relevant portions of the chart, including current orders, allied health and cardiology clinical consultant notes, labs/imaging and performed smith elements of exam and I formulated the plan of care and facilitated the medical decision making. Documented By: Stiven Zaman MD 06/17/22 0940 Signed By: <Electronically signed by Stiven Zaman MD> 06/17/22 1554 [facility] Work Phone: 1([phone]) 431-241101-04-2023 Consult note Author Frida De La Cruz [facility] June 17, 2022 1:33pm Note Date/Time June 17, 2022 1: 33pm [facility] [address] [place] [address] Hospitalist Consult Note Signed Patient: Abdirahman Gomez MR#: [id number] : 1940 Acct:[id number] Age/Sex: 81 / F Adm Date: 3 Loc: Room: [address] [place] [address] Type: ADM IN Attending Dr: Stiven Zaman [...] mg 06/16/22 18:36 Bisacodyl 10 Mg Supp.Rect MT 06/16/23 18:35 DAILY PRN Constipation Carvedilol 12.5 mg 06/16/22 21:00 06/17/22 08:04 Carvedilol 12.5 Mg Tablet PO 06/16/23 20:59 12.5 mg BID JAK Administration Docusate Sodium 100 mg 06/16/22 18:36 Docusate 100 Mg Capsule PO 06/16/23 18:35 BID PRN Constipation Docusate Sodium 283 mg 06/16/22 18:36 Docusate Enema 283 Mg/5 Ml Enema MT 06/16/23 18:35 DAILY PRN Constipation Furosemide 20 [...] oriented to place, time and person HEENT: [place] conjunctiva and NL buccal mucosa Neck: Supple, [...] % (Auto) 57.7, Lymph % (Auto) 29.1, Edmunds % (Auto) 9.4, Eos % (Auto) 2.4, Baso % (Auto) 1.4, Nucleat RBC Rel Count 0.0, Neut # (Auto) 6.3, Lymph # (Auto) 3.2, Edmunds # (Auto) 1.0 H, Eos # (Auto) [...] PCP and out patient providers to obtain [facility] record entirely to follow up on illnesses, symptoms, abnormal findings that I have and have not addressed during this encounter and hospitalization in out patient setting. Documented By: Frida De La Cruz MD 06/17/22 1329 Signed By: <Electronically signed by Frida De La Cruz MD> 06/17/22 1333 [facility] Work Phone: 1(658) 943-750801-03-2023 Progress note Author Frida De La Cruz [facility] June 16, 2022 11:42am Note Date/Time June 16, 2022 11 :42am [facility] [address] [place], [place] [id number] Progress Note Signed Patient: Abdirahman Gomez MR#: [id number] : 1940 Acct:[id number] Age/Sex: 81 / F Adm Date: 2 Loc: 3T Room: 0T5399-4 Type: ADM IN Attending Dr: Frida De [...] Frida De La Cruz MD> 06/16/22 1142 [facility] Work Phone: [phone] 430-382301-03-2023 Discharge summary Author Frida De La Cruz [facility] June 16, 2022 8:32am Note Date/Time June 16, 2022 8: 24am [facility] [address] [place] [address] Discharge Summary Signed with Addenda Patient: Abdirahman Gomez MR#: [id number] : 1940 Acct:[id number] Age/Sex: 81 / F Adm Date: 2 Loc: 3T Room: 1M2215-[address]: Frida De La Cruz MD [...] fib with RVR. She was seen by stretch press operator. She was recommended to be on Eliquis [...] % (Auto) 61.6, Lymph % (Auto) 27.7, Edmunds % (Auto) 6.9, Eos % (Auto) 2.6, Baso % (Auto) 1.2, Nucleat RBC Rel Count 0.1, Neut # (Auto) 6.6, Lymph # (Auto) 2.9, Edmunds # (Auto) 0.7, Eos # (Auto) 0.3, [...] oriented to place, time and person HEENT: [place] conjunctiva and NL buccal mucosa Neck: Supple, [...] Discharge Plan Discharge Plan Patient Disposition: [place] [facility] Activity: No Activity Restriction Diet: Low-Sodium and [...] ask your primary care provider to obtain [facility] records entirely to follow up on all of the abnormal physical, laboratory, and imaging findings that I have not addressed. Please return back to the emergency room or seek medical attention if your symptoms worsen or return. Discharging you from [facility] does not mean that your medical [...] by Frida De La Cruz MD> 06/16/22823 [facility] Work Phone: 1([phone]) 610-851601-02-2023 Progress note Author Frida De La Cruz [facility] June 15, 2022 8:38am Note Date/Time June 15, 2022 8: 38am [facility] [address] [place] [address] Hospitalist Progress Note Signed Patient: Abdirahmna Gomez MR#: [id number] : 1940 Acct:[id number] Age/Sex: 81 / F Adm Date: 2 Loc: Room: [address] [place] [address] Type: ADM IN Attending Dr: Frida De [...] oriented to place, time and person HEENT: [place] conjunctiva and NL buccal mucosa Neck: Supple, [...] by Frida De La Cruz MD> 06/15/2238 [facility] Work Phone: 1([phone] 341-881901-01-2023 Progress note Author Nathaniel Castillo [facility] June 14, 2022 2:53pm Note Date/Time June 14, 2022 2: 53pm [facility] [address] [place] [address] Hospitalist Progress Note Signed Patient: Abdirahman Gomez MR#: [id number] : 1940 Acct:[id number] Age/Sex: 81 / F Adm Date: 2 Loc: Room: [address] [place] [address] Type: ADM IN Attending Dr: Nathaniel Castillo [...] <Electronically signed by Nathaniel Castillo MD> 06/14/22 1457 [facility] Work Phone: 1([phone]) 241-385612-31-2022 Progress note Author Yoav Prado [facility] June 13, 2022 2:58pm Note Date/Time June 13, 2022 2:56[facility] [address] [place] [address] Cardiology Progress Note Signed Patient: Abdirahman Gomez MR#: [id number] : 1940 Acct:[id number] Age/Sex: 81 / F Adm Date: 2 Loc: 3T Room: [address] [place] [address] Type: ADM IN Attending Dr: Nathaniel Castillo [...] signed by MD Yoav Prado> 06/13/22 1458 [facility] Work Phone: 1(658) 568-579012-31-2022 Progress note Author Nathaniel Castillo [facility] June 13, 2022 2:00pm Note Date/Time June 13, 2022 9:29am [facility] [address] [place] [address] Hospitalist Progress Note Signed Patient: Abdirahman Gomez MR#: [id number] : 1940 Acct:[id number] Age/Sex: 81 / F Adm Date: 2 Loc: Room: [address] [place] [address] Type: ADM IN Attending Dr: Nathaniel Castillo [...] of care and confirmed it with the resident/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 Patient resting in bed comfortably. Denies chest [...] Full Documented By: Nathaniel Castillo MD 06/13/22 0960 Signed By: <Electronically signed by Nathaniel Castillo MD> 06/13/22 1400 <Electronically signed by DO RYAN Juarez> 06/13/22 1020 [facility] Work Phone: [phone] 615-663512-30-2022 Progress note Author Nathaniel Castillo [facility] June 12, 2022 3:02pm Note Date/Time June 12, 2022 1:38pm [facility] [address] [place] [address] Hospitalist Progress Note Signed Patient: Abdirahman Gomez MR#: [id number] : 1940 Acct:[id number] Age/Sex: 81 / F Adm Date: 2 Loc: Room: [address] [place] [address] Type: ADM IN Attending Dr: Nathaniel Castillo [...] of care and confirmed it with the resident/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 Patient resting in chair comfortably. 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 retail sales director, full strength with flexion and extension of [...] signed by DO RYAN Juarez> 06/12/22 1442 [facility] Work Phone: [phone]) 994-912712-30-2022 Progress note Author Paramjit Pride [facility] June 12, 2022 11:05am Note Date/Time June 12, 2022 11:05am [facility] [address] [place] [address] Cardiology Progress Note Signed Patient: Abdirahman Gomez MR#: [id number] : 1940 Acct:[id number] Age/Sex: 81 / F Adm Date: 2 Loc: Room: [address] [place] [address] Type: ADM IN Attending Dr: Nathaniel Castillo [...] <Electronically signed by Paramjit Pride MD> 06/12/22 110 [facility] Work Phone: 1([phone]) 481-270412-29-2022 Progress note Author Nathaniel Castillo [facility] June 11, 2022 4:24pm Note Date/Time June 11, 2022 12:40pm [facility] [address] [place] [address] Hospitalist Progress Note Signed Patient: Abdirahman Gomez MR#: [id number] : 1940 Acct:[id number] Age/Sex: 81 / F Adm Date: 2 Loc: Room: [address] [place] [address] Type: ADM IN Attending Dr: Nathaniel Castillo [...] of care and confirmed it with the resident/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 Patient resting in bed comfortably. Denies chest [...] grossly intact, full strength left hand retail sales director which is improved upon yesterday's exam, full [...] JAK Administration Carvedilol 12.5 mg 06/09/22 08:00 06/11/22 [...] Tablet PO 06/09/23 21:59 0.5 mg HS AJK Administration Tizanidine HCl 4 mg 06/09/22 04:53 [...] signed by DO RYAN Juarez> 06/11/22 1240 [facility] Work Phone: [phone] Progress note Author Paramjit Pride [facility] June 11, 2022 9:45am Note Date/Time June 11, 2022 9:46am [facility] [address] [place] [address] Cardiology Progress Note Signed Patient: Abdirahman Gomez MR#: [id number] : 1940 Acct:[id number] Age/Sex: 81 / F Adm Date: 2 Loc: 3T Room: [address] [place] [address] Type: ADM IN Attending Dr: Nathaniel Castillo [...] % (Auto) 65.1 Lymph % (Auto) 24.1 Edmunds % (Auto) 9.1 Eos % (Auto) 1.2 Baso % (Auto) 0.5 Nucleat RBC Rel Count 0.1 Neut # (Auto) 7.4 Lymph # (Auto) 2.8 Edmunds # (Auto) 1.0 H Eos # (Auto) [...] signed by Paramjit Pride MD> 06/11/22 0945 [facility] Work Phone: [phone] Progress note Author Paramjit Pride [facility] June 10, 2022 6:21pm Note Date/Time June 10, 2022 12:12pm [facility] [address] [place] [address] Cardiology Progress Note Signed with Addenda Patient: Abdirahman Gomez MR#: [id number] : 1940 Acct:[id number] Age/Sex: 81 / F Adm Date: 2 Loc: Room: [address] [place] [address] Type: ADM IN Attending Dr: Nathaniel Castillo [...] EKG. The patient's troponin peaked initially in [place] emergency department at 9000and is now come [...] H* Echocardiogram Signed Patient: Abdirahman Gomez MR#: [id number] : 1940 Acct:[id number] Age/Sex: 81 / F ADM Date: 06/09/22 Loc: Room:? 5C4978-7 Type:?ADM IN Attending Dr: Nathaniel Castillo MD [...] signed by Paramjit Pride MD> 06/10/22 1220 [facility] Work Phone: [phone] Progress note Author Nathaniel Castillo [facility] June 10, 2022 1:35pm Note Date/Time June 10, 2022 1:31pm [facility] [address] [place] [address] Progress Note Signed Patient: Abdirahman Gomez MR#: [id number] : 1940 Acct:[id number] Age/Sex: 81 / F Adm Date: 2 Loc: Room: [address] [place] [address] Type: ADM IN Attending Dr: Nathaniel Castillo [...] abnormalities, but upon review from a different stretch press operator, it was noted that she has akinesis and thinning of the basal inferior wall of LV suggestive of a prior NV. #2 atrial fibrillation. Patient had a small [...] <Electronically signed by Nathaniel Castillo MD> 06/10/22 5587 [facility] Work Phone: 1([phone]) 168-718712-27-2022 History and physical note Author Chema Milner [facility] June 09, 2022 8:18pm Note Date/Time June 09, 2022 4:14am [facility] [address] [place] [address] Hospitalist H&P Signed Patient: Abdirahman Gomez MR#: [id number] : 1940 Acct:[id number] Age/Sex: 81 / F Adm Date: 2 Loc: Room: [address] [place] [address] Type: ADM IN Attending Dr: Nathaniel Castillo MD Copies to: MD Chema Pham MD Douglas M Hoy, MD Samantha Mason, DO, RES~ HPI DATE OF EXAMINATION: 06/09/22 CHIEF COMPLAINT: Weakness HISTORY OF PRESENT ILLNESS: Patient is an 81-year-old female that is a transfer from [place] due to elevated troponins. Past medical history includes hypertension, hx CABG, presence of pacemaker, and paroxysmal atrial fibrillation. Patient had originally presented to the emergency room at [place] due to generalized weakness that started several [...] with Dr. Morton while patient was at [place]. It is not felt that patient is [...] plan of care and confirmed the nurse practitioners/residents/technical internship written note. Patient is a 81-year-old lady history of CAD status post CABG, hypertension, A. fib, presence of pacemaker presented to [place] due to weakness and bloody stools. Patient has history of diverticulosis. Hemoglobin 13.5. Incidentally troponins were significantly elevated but patient did not have any cardiac complaints. EKG with no acute ischemic changes. EKG reviewed by stretch press operator, not felt to be an acute ischemic event and recommended transfer to [facility] for further evaluation and management. Patient upon [...] <Electronically signed by Chema Milner MD> 06/09/222017 [facility] Work Phone: 1([phone]) 157-199912-27-2022 Consult note Author Paramjit Pride [facility] June 09, 2022 3:21pm Note Date/Time June 09, 2022 3:16pm [facility] [address] [place] [address] Cardiology Consult Note Signed Patient: Abdirahman Gomez MR#: [id number] : 1940 Acct:[id number] Age/Sex: 81 / F Adm Date: 2 Loc: Room: [address] [place] [address] Type: ADM IN Attending Dr: Nathaniel Castillo [...] CAB x3 done approximately 30years ago in [place] who was transferred to our facility from [facility] 2days ago after presenting complaining of generalized weakness but more pronounced weakness of the left arm and hand. The patient states she been feeling more weak and fatigued than normal over the preceding 10 days or so prior to her presentation. On the day that she presented to [place] ER she noted that she felt very weak while in her shower. She felt like her left hand was numb and would not work. She apparently had aminor fall but suffered no injury with such. However EMS was activated. The patient was taken to [place] emergency department for evaluation. In the ER at [place] [facility] EKG was suspicious for ST segment [...] was anticoagulated and she was sent to [facility] for furtherevaluation. Since being here [facility] patient has had a mild increase in [...] x10E3/uL Lymph # (Auto) 2.3 (1.00-4.8) x10E3/uL Edmunds # (Auto) 1.3 H (0.0-0.8) x10E3/uL Eos [...] AV and intraventricular conduction: 1 AV block NV, pacemaker, normal Myocardial infarction: inferior NV (old age indeterminate) Normal tracing: no change [...] discharge she can follow-up with her primary stretch press operator in [facility]. Documented By: Paramjit Pride MD 06/09/22 1508 Signed By: <Electronically signed by Paramjit Pride MD> 06/09/22 1523 [facility] Work Phone: 1(648) 805-586312-27-2022 Progress note Author Nathaniel Castillo [facility] June 09, 2022 3:06pm Note Date/Time June 09, 2022 1:59pm [facility] [address] [place] [address] Hospitalist Progress Note Signed Patient: Abdirahman Gomez MR#: [id number] : 1940 Acct:[id number] Age/Sex: 81 / F Adm Date: 2 Loc: Room: [address] [place] [address] Type: ADM IN Attending Dr: Nathaniel Castillo [...] of care and confirmed it with the resident/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 Patient resting in bed comfortably. 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, full strength with flexion and extension of [...] 40 Mg Tablet PO 06/09/23 21:59 HS [facility] Carvedilol 12.5 mg 06/09/22 08:00 06/09/22 09:29 [...] 10 Mg Tablet PO 06/09/23 21:59 HS [facility] Omeprazole 40 mg 06/09/22 09:00 06/09/22 09:30 [...] 0.5 Mg Tablet PO 06/09/23 21:59 HS [facility] Tizanidine HCl 4 mg 06/09/22 04:53 Tizanidine [...] examination Only has decreased strength in retail sales director on the left upon my exam Denies [...] signed by Nathaniel Castillo MD> 06/09/22 1506 [facility] Work Phone: 1(493) 639-834306-15-2022 NoteMR#: [id number] I [facility] Pt. Name: Abdirahman Gomez Admitted: 11/22/2021 [...] is an 81-year-old female who presented to [facility] with chief complaint of symptomatic bradycardia that [...] Mcfadden PA-C Date Trans: 11/26/2021 06:47 A/daniel [id number] cc: Irish Faustin M.D. [address] [id number]* Diagnosis Onset Date Resolution Status A-fib acute Abnormal ECG acute Constipation acute Diverticulosis acute Elevated troponin acute Embolic stroke acute Hypertension acute Pacemaker acute Paroxysmal atrial fibrillation acute Upper extremity weakness acu te [facility] Work Phone: Evaluation note* Diagnosis Onset Date [...] acute Pacemaker acute Paroxysmal atrial fibrillation acute [facility] Work Phone: Hospital Discharge instructions Additional Instructions [...] ask your primary care provider to obtain [facility] records entirely to follow up on all of the abnormal physical, laboratory, and imaging findings that I have not addressed. Please return back to the emergency room or seek medical attention if your symptoms worsen or return. Discharging you from [facility] does not mean that your medical care ends here and now. You may still need additional monitoring, work up, investigation, and treatment plan to be handled from this point on by out patient providers including your primary care provider and specialists. For any medication question, please contact your retail pharmacist or your primary care provider. Thank you.[facility] Work Phone: Summary Purpose Family [...] and content) DATE CREATED AUTHOR 12/03/2021 [facility] DATE CREATED AUTHOR AUTHOR'S ORGANIZ ATION 06/16/2022 [facility] DATE CREATED AUTHOR AUTHOR'S ORGANIZ ATION 07/18/2022 [facility] DATE CREATED AUTHOR AUTHOR'S ORGANIZ ATION 08/03/2022 [facility] DATE CREATED AUTHOR AUTHOR'S ORGANIZ ATION 05/20/2023 [facility] Care Teams (unrecognized sec tion and content) Team Status: Inactive Member Role Status Dates Irish Faustin MD Primary Care Provider Active hCema Milner MD Admit Provider Active Frida De [...] MD Other Provider Active Ramila Wallace , HOME HEALTH TRAVEL OT Other Provider Active Dewayne Rader , DO [...] MD Other Provider Active Devora Restrepo , SECURITY SYSTEM ENGINEER-C Other Provider Active Ga Kwong MD Other Provider Active Maurilio Banks MD Other Provider Active Chema Milner MD Other Provider Active Herminia Andrew , DO Other Provider Active Johnny Benson , DO Other Provider Active Rober Perez , DO Other Provider Active Brandi Cifuentes HOME HEALTH TRAVEL OT Other Provider Active Devante Lafleur , DO Other Provider Active Malu Roblero MD Other Provider Active Monisha Thompson HOME HEALTH TRAVEL OT Other Provider Active Meghna Arcos , PARISA [...] BE BASED ON THE PRIMARY CLINICAL RECORDS. [facility] provides no warranty or guarantee of the accuracy or completeness of information in this document.
[2023-07-20 13:27] LABS: Sodium Urine Random 27 mmol/L (30-90)
[2023-07-20 13:29] LABS: Anion Gap 16.3; BUN Creatinine Ratio 12.1; Calcium 9.4 mg/dL (8.5-10.1); Carbon Dioxide 22.2 mmol/L (21.0-32.0); Chloride 102 mmol/L (98-107); Estimated GFR (African America >60 (>=60); Estimated GFR (Non-African Ame 54 (>=60); Glucose 112 mg/dL (74-106); Potassium 4.5 mmol/L (3.5-5.1); Sodium 136 mmol/L (136-145)
[2023-07-20 16:24] LABS: Occult Blood Negative
== END 2023-07-20 12:55 | disposition home or self-care (01) ==
LOC: LAB 12:55
PROVIDERS: PCP Family Medicine; Visit Provider Family Medicine
DX: E87.1 Hypo-osmolality and hyponatremia (principal); Z12.12 Encounter for screening for malignant neoplasm of rectum
CPT/HCPCS: 36415; 80048; 84300; G0328

== ENCOUNTER 2023-11-04 14:00 | Outpatient (OUT) | payer MEDICARE, OTHER, SELFPAY ==
--- NOTE | 2023-11-04 14:30 | XR_ITS ---
The [address] [address] Patient Name: ABDIRAHMAN GOMEZ MRN: [id number] date: 1940 Sex: F Assigned Patient Location: LAB Current Patient Location: LAB Accession/Order Number: [id number] Exam Date: 11/04/2023 14:42 Report Date: 11/04/2023 16:05 At the request of: IRISH FAUSTIN Procedure: XR ankle RT min 3V PROCEDURE: XR ankle RT min 3V COMPARISON: 07/26/2019 HISTORY: Right foot injury S99.921A FINDINGS: BONES:Contour deformity of the distal tibia and fibula consistent with remote healed fracture. Partial bony bridging of the transverse medial malleolus fracture. No acute fracture or dislocation. Degenerative changes with joint space narrowing and marginal osteophyte formation SOFT TISSUES:Negative. No visible soft tissue swelling. EFFUSION:None visible. OTHER: Negative. XR/XR ankle RT min 3V IMPRESSION: Remote posttraumatic changes No acute abnormality Electronically authenticated by: BRIE HERNANDEZ Date: 11/04/2023 16:05
--- NOTE | 2023-11-04 14:32 | XR_ITS ---
The [address] [address] Patient Name: ABDIRAHMAN GOMEZ MRN: [id number] date: 1940 Sex: F Assigned Patient Location: LAB Current Patient Location: LAB Accession/Order Number: [id number] Exam Date: 11/04/2023 14:42 Report Date: 11/04/2023 16:20 At the request of: IRISH FAUSTIN Procedure: XR chest 2V EXAMINATION: XR chest 2V HISTORY: Paroxysmal atrial fibrillation I48.0 COMPARISON: 03/15/2023 TECHNIQUE: PA and lateral FINDINGS: LUNGS: No significant pulmonary parenchymal abnormalities. VASCULATURE: No increased pulmonary vasculature. PLEURA: No pneumothorax, effusion, or pleural thickening. CARDIAC: No cardiomegaly or cardiac silhouette abnormality. MEDIASTINUM: No visible mass or adenopathy. Median sternotomy wires. Left bipolar pacemaker. Aortic atherosclerosis BONES: No fracture or visible bone lesion. OTHER: Negative. XR/XR chest 2V IMPRESSION: No acute cardiopulmonary process Electronically authenticated by: BRIE HERNANDEZ Date: 11/04/2023 16:20
[2023-11-04 14:34] LABS: Basophils Absolute Auto 0.1 10^3/uL (0.0-0.1); Basophils Percent Auto 0.5 % (0.2-2.0); Eosinophils Absolute Auto 0.1 10^3/uL (0.0-0.7); Eosinophils Percent Auto 0.5 % (0.9-7.0); Hematocrit 41.5 % (36.0-48.0); Hemoglobin 13.8 g/dL (12.0-16.0); Immature Granulocytes Abs Auto 0.14 10^3/uL (0.00-0.03); Immature Granulocytes Pct Auto 0.9 % (0.0-0.5); Lymphocytes Absolute Auto 2.8 10^3/uL (1.2-3.8); Lymphocytes Percent Auto 17.2 % (20.5-60.0); Mean Corpuscular HGB Conc 33.3 g/dL (29.9-35.2); Mean Corpuscular Hemoglobin 34.4 pg (26.7-34.0); Mean Corpuscular Volume 103.5 fL (81.0-99.0); Mean Platelet Volume 9.1 fL (9.5-13.5); Monocytes Absolute Auto 0.9 10^3/uL (0.3-0.8); Monocytes Percent Auto 5.6 % (1.7-12.0); Neutrophils Absolute Auto 12.2 10^3/uL (1.4-6.5); Neutrophils Percent Auto 75.3 % (43.0-75.0); Platelet Count 277 10^3/uL (150-450); Red Blood Count 4.01 10^6/uL (4.20-5.40); White Blood Count 16.2 10^3/uL (4.0-11.0)
[2023-11-04 15:35] LABS: Alanine Aminotransferase 32 U/L (14-59); Albumin Level 3.8 g/dL (3.4-5.0); Alkaline Phosphatase 96 U/L (46-116); Anion Gap 15.4; Aspartate Amino Transferase 33 U/L (15-37); Bilirubin Total 0.6 mg/dL (0.2-1.0); Calcium 9.8 mg/dL (8.5-10.1); Carbon Dioxide 23.8 mmol/L (21.0-32.0); Chloride 97 mmol/L (98-107); Estimated GFR (African America >60 (>=60); Estimated GFR (Non-African Ame >60 (>=60); Free T3 2.76 pg/mL (2.18-3.98); Globulin 3.9 g/dL; Glucose 105 mg/dL (74-106); Potassium 4.2 mmol/L (3.5-5.1); Sodium 132 mmol/L (136-145); Thyroid Stimulating Hormone 1.021 uIU/mL (0.358-3.740); Total Protein 7.7 g/dL (6.4-8.2)
== END 2023-11-04 14:01 | disposition home or self-care (01) ==
LOC: LAB 14:01
PROVIDERS: PCP Family Medicine; Visit Provider Family Medicine
DX: I48.0 Paroxysmal atrial fibrillation (principal); I25.10 Atherosclerotic heart disease of native coronary artery without angina pectoris; I50.9 Heart failure, unspecified; S99.921A Unspecified injury of right foot, initial encounter; D64.9 Anemia, unspecified; E55.9 Vitamin D deficiency, unspecified; I50.30 Unspecified diastolic (congestive) heart failure; I11.0 Hypertensive heart disease with heart failure
CPT/HCPCS: 36415; 71046; 73610; 80053; 82306; 83540; 83880; 84436; 84443; 84481; 85025

== ENCOUNTER 2023-12-14 10:42 | Outpatient (OUT) | payer MEDICARE, OTHER, SELFPAY ==
--- NOTE | 2023-12-14 10:45 | XR_ITS ---
The [address] [address] Patient Name: ABDIRAHMAN GOMEZ MRN: [id number] date: 1940 Sex: F Assigned Patient Location: [facility] Current Patient Location: [facility] Accession/Order Number: [id number] Exam Date: 12/14/2023 10:55 Report Date: 12/15/2023 11:44 At the request of: IRISH FAUSTIN Procedure: XR lumbar spine 2-3V PROCEDURE: XR sacrum coccyx min 2V, XR lumbar spine 2-3V HISTORY: Low Back Pain, Hip Pain COMPARISON: XR lumbar spine 05/10/2023 FINDINGS: BONES: Moderate degenerative facet arthropathy L4-5, L5-S1. Normal height and alignment of the vertebral bodies; no fracture or spondylolisthesis. DISC SPACES: Marked disc space narrowing L4-5, L5-S1. PARASPINOUS: Negative. No paraspinous abnormality is seen. OTHER: Prior left hip replacement. SACRUM: No fracture, disruption of the sacral ala line, or cortical irregularity. COCCYX: No fracture or suspicious alignment. SOFT TISSUES: No widening of the sacroiliac joints. No radiopaque foreign body. OTHER: XR/XR lumbar spine 2-3V IMPRESSION: 1. Marked degenerative disc disease L4-5, L5-S1; stable to minimally progressed. 2. Unremarkable sacrum and coccyx. Electronically authenticated by: ANTONIA ABDALLA Date: 12/15/2023 11:44
--- NOTE | 2023-12-14 10:45 | XR_ITS ---
The [address] [address] Patient Name: ABDIRAHMAN GOMEZ MRN: [id number] date: 1940 Sex: F Assigned Patient Location: [facility] Current Patient Location: [facility] Accession/Order Number: [id number] Exam Date: 12/14/2023 10:55 Report Date: 12/15/2023 11:44 At the request of: IRISH FAUSTIN Procedure: XR sacrum coccyx min 2V PROCEDURE: XR sacrum coccyx min 2V, XR lumbar spine 2-3V HISTORY: Low Back Pain, Hip Pain COMPARISON: XR lumbar spine 05/10/2023 FINDINGS: BONES: Moderate degenerative facet arthropathy L4-5, L5-S1. Normal height and alignment of the vertebral bodies; no fracture or spondylolisthesis. DISC SPACES: Marked disc space narrowing L4-5, L5-S1. PARASPINOUS: Negative. No paraspinous abnormality is seen. OTHER: Prior left hip replacement. SACRUM: No fracture, disruption of the sacral ala line, or cortical irregularity. COCCYX: No fracture or suspicious alignment. SOFT TISSUES: No widening of the sacroiliac joints. No radiopaque foreign body. OTHER: XR/XR sacrum coccyx min 2V IMPRESSION: 1. Marked degenerative disc disease L4-5, L5-S1; stable to minimally progressed. 2. Unremarkable sacrum and coccyx. Electronically authenticated by: ANTONIA ABDALLA Date: 12/15/2023 11:44
--- NOTE | 2023-12-14 10:45 | XR_ITS ---
The [address] [address] Patient Name: ABDIRAHMAN GOMEZ MRN: [id number] date: 1940 Sex: F Assigned Patient Location: [facility] Current Patient Location: Accession/Order Number: [id number] Exam Date: 12/14/2023 10:55 Report Date: 12/15/2023 11:02 At the request of: IRISH FAUSTIN Procedure: XR hip RT 2V w/ pelvis PROCEDURE: XR hip RT 2V w/ pelvis HISTORY: Right Hip Pain Acute Right COMPARISON: XR hip left with pelvis 05/10/2023 FINDINGS: BONES:Slight narrowing of the right hip joint space. No fracture, dislocation, bone lesion. Prior total left hip replacement. SOFT TISSUES:No visible soft tissue swelling. EFFUSION:None visible. OTHER: Moderate-marked disc space narrowing L4-5. XR/XR hip RT 2V w/ pelvis IMPRESSION: 1. 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 No acute or suspicious abnormality. 2. Left hip replacement without evidence of hardware failure. 3. Marked degenerative disc disease of lower lumbar spine; grossly stable. Electronically authenticated by: ANTONIA ABDALLA Date: 12/15/2023 11:02
--- OUTSIDE RECORDS SUMMARY | 2023-12-14 10:52 | XMS_ITS | CCD ---
Author Organization [facility] CliniSyva Care Team Providers Care Drive Away Driver Name Role Phone UNKNOWN, PHYSICIAN Referring Unavailable BRIDGER MONTANA Attending Unavailable KIM ARCE Admitting Unavailable IRISH FAUSTIN Primary Care Unavailable RAMIN, DR COBURN Admitting Unavailable WHITLEYY, DR COBURN Attending Unavailable WHITLEYY, DR COBURN Primary Care Unavailable RAMIN, DR COBURN Consulting Unavailable RAMIN, DR COBURN Admitting Unavailable WHITLEYY, DR COBURN Attending Unavailable RAMIN, DR COBURN Primary Care Unavailable RAMIN, DR COBURN Consulting Unavailable MARY, DR BRIE Oseguera Consulting Unavailable VENUS TONG Admitting Unavailable VENUS TONG Attending Unavailable RAMIN, DR COBURN Primary Care Unavailable VENUS TONG Consulting Unavailable RAMIN, DR COBURN Primary Care Unavailable TERESA, DR JOSEPH Palacios Consulting Unavailable TEERSA, DR JOSEPH Palacios Admitting Unavailable TERESA, DR JOSEPH Palacios Attending Unavailable ALYCIA, VENUS Admitting Unavailable VENUS TONG Attending Unavailable RAMIN, DR COBURN Primary Care Unavailable VENUS TONG Admitting Unavailable VENUS TONG Attending Unavailable RAMIN, DR COBURN Primary Care Unavailable MD Irish Faustin Primary Care Provider [phone] MD Chema Milner Admit Provider MD Frida De La Cruz Attending Provider [phone] MD Stiven Zaman Admit Provider MD Stiven Zaman Attending Provider PARISA Santillan Other Provider Unavailable PARISA Calle Other Provider Unavailable PARISA Shah Other Provider Unavailable PARISA Nettles Other Provider Unavailable PARISA Nick Other Provider Unavailable PARISA Aguiar Other Provider Unavailable MD Frida De La Cruz Other Provider MD Josue Espitia Other Provider KIM Wallace M Other Provider DO Dewayne Rader Other Provider [...] Provider MD Alex Dominguez Other Provider NELSON Restrepo-Aquilino Rodarte Other Provider MD Ga Kwong Other Provider MD Maurilio Banks Other Provider MD hCema Milner Other Provider DO Herminia Andrew Other [...] Benson Consulting Unavailable Rober Perez Consulting Unavailable ObNoa sorensena Consulting Unavailable Devante Lafleur Consulting Unavailable DaromarMalu Consulting Unavailable Monisha Thompson Consulting Unavailable Meghna Arcos Consulting Unavailable Annia, Chema Admitting Unavailable Irish Faustin Primary Care Unavailable Frida De La Cruz Attending Unavailable Gera Claros Consulting Unavailable Dr. Irish Faustin Primary Care Unavail able Dr. Yoav Prado Attending Unavaila Dr. Irish Vincent Primary Care Unavail able Dr. Irish Faustin Primary Care Unavail able ALXEANDRIA SANTOS Attending Unavailable JAILYN MEANS Attending Unavailable SARABJIT VICENTE Referring Unavailable ALEXANDRIA SANTOS Attending Unavailable SARABJIT VICENTE Referring Unavailable Allergies Allergy Classification Reported Allergen(s) Allergy Type Date of Onset Reaction(s) Facility (1 source) Adhesive agent Drug allergy (disorder) 9 [facility] Repository (3 sources) Ciprofloxacin Drug Allergy 6 [facility] Repository (5 sources) Codeine; Translations: [CODEINE] Drug Allergy 9 Itching [facility] Repository (1 source) paper tape; Translations: [paper tape] Propensity to adverse reactions (disorder) 2 [facility] Repository (1 source) Desonide Drug Allergy The [facility] Repository (4 sources) Ciprofloxacin; Translations: [ciprofloxacin] Drug Allergy 2 Redness of Skin [facility] (1 source) Codeine Drug Allergy 2 [facility] Repository (1 source) rosuvastatin; Translations: [ROSUVASTATIN] Drug Allergy 5 [facility] Repository (1 source) ADHESIVE TAPE-SILICONES; Translations: [ADHESIVE TAPE-SILICONES] Propensity to adverse reactions to drug (disorder) 5 [facility] Repository Medications Current Medications Medication Drug Class(es) Dates Sig (Normalized) Sig (Original) acetaminophen 500 mg oral tablet (1 source) Start: 06-24-2022 take 500 mg by mouth every four hours Acetaminophen Active 500 MG PO Q4H June 24, 2022 12:00am acetaminophen 325 mg / HYDROcodone bitartrate 5 mg oral tablet (3 sources) Opioid Agonist Start: 06-24-2022 take 1 tablet by mouth twice daily Hydrocodone-Acetami nophen Active 1 TAB PO Twice daily 14 June 24, 2022 Start: 06-09-2022 End: 06-24-2022 take 1 tablet by mouth every twelve hours Hydrocodone-Acetaminophen Discontinued 1 TAB PO Q12H June 09, 2022 12:00am June 24, 2022 9:18am amLODIPine 10 mg oral tablet (3 sources) Dihydropyridine Calcium Channel Kirby Start: 06-09-2022 End: 06-24-2022 take 10 mg by mouth at bedtime Amlodipine Active 10 MG PO Bedtime June 24, 2022 12:00am apixaban 5 mg [...] daily Furosemide Active 20 MG PO Daily June 24, 2022 12:00am 24 hr isosorbide [...] Active 5 MG PO Daily at bedtime June 24, 2022 12:00am metFORMIN hydrochloride 500 mg oral tablet (3 sources) Biguanide Start: 06-16-2022 End: 06-24-2022 take 500 mg by mouth once daily Metformin Active 500 MG PO Daily June 24, 2022 12:00am montelukast 10 mg [...] June 16, 2022 10:52am polyethylene glycol 3350 57870 mg powder for oral solution (3 sources) [...] Start: 06-14-2022 take 2 tablets by mo [facility] twice daily Sennosides (Senna Lax) 8.6 mg Tablet Active 2 TAB PO Twice daily 0 June 14, 2022 12:00am tiZANidine 4 mg [...] (2 sources) Start: 06-09-2022 End: 06-16-2022 take 54778 ug by mouth once daily Biotin Discontinued 73103 MCG PO Daily June 09, 2022 12:00am June 16, 2022 10:52am Magnesium Chloride (2 sources) Start: 06-09-2022 End: 06-16-2022 take 64 mg by mouth once daily Magnesium Chloride Discontinued 64 MG PO Daily June 09, 2022 12:00am June 16, 2022 10:52am Eland-3 Fatty Acids-Vitamin E (Fish Oil) 1,000 mg Capsule (2 sources) Start: 06-09-2022 End: 06-16-2022 take 1 capsule by mouth once daily Eland-3 Fatty Acids-Vitamin E (Fish Oil) 1,000 mg [...] disease (5 sources) Atherosclerotic heart disease of [place] coronary artery without angina pectoris; Translations: [Atherosclerotic heart disease of [place] coronary artery with unstable angina pectoris] Onset: [...] 3 Chronic Other aftercare (1 source) Other fpc (current) drug therapy; Translations: [OTH ASSISTED CURRENT DRUG THERAPY] Onset: 3 Episodic Other aftercare (1 source) 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; 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] Onset: 3 Episodic [...] Range Facility Office Visiton 03-17-2023 Follow-up visit [id number] Abdirahman Gomez 1940 F Date Provider Department Center 03/17/2023 Monico-ALEXANDRIA SANTOS [facility]RI[facility] Family History Problem Relation Age of Onset Aneurysm Mother Alcohol abuse Father Family Status - Relation Status Age at Mother Father Level of Service:75653 [place] OFFICE/OUTPATIENT ESTABLISHED MOD MDM 30-39 MIN Normal [facility] Office Visiton 12-28-2022 Follow-up visit [id number] Abdirahman Gomez 1940 F Date Provider Department Center 12/28/2022 JAILYN CHAMBERLAIN BRIA Cant[facility] Family History Problem Relation Age of Onset Aneurysm Mother Alcohol abuse Father Family Status - Relation Status Age at Mother Father Level of Service:97692 [place] OFFICE/OUTPATIENT ESTABLISHED MOD MDM 30-39 MIN Reason for Visit and Comments: Follow-up [551567] - 6 month follow up / echo result Normal [facility] Telemedicineon 07-08-2022 Telemedicine [id number] Abdirahman Gomez 1940 F Date Provider Department Center 07/08/2022 271-NISATALEANNSherly, EHAB CARD [facility] Family History Problem Relation Age of Onset Aneurysm Mother Alcohol abuse Father Family Status - Relation Status Age at Mother Father Level of Service:12063 [place] OFFICE/OUTPATIENT ESTABLISHED [facility] 10-19 MIN Normal [facility] Basic Metabolic Panelon 06-14 Anion gap [Moles/Vol] 16.1 mmol/L High 6.0-15.0 [facility] Comment on above: Performed By: #### C BC, BMP #### [facility] [address] [place] [address] [place] Calcium [Mass/Vol] 9.4 mg/dL Normal 8.2-10.2 [facility] Comment on above: Performed By: #### C BC, BMP #### [facility] [address] [place] [address] [place] Chloride [Moles/Vol] 102 mmol/L Normal 95-114 [facility] Comment on above: Performed By: #### C BC, BMP #### [facility] [address] [place] [address] [place] CO2 [Moles/Vol] 20.7 mmol/L Low 22.0-30.0 [facility] Comment on above: Performed By: #### C BC, BMP #### [facility] [address] [place] [address] [place] Creatinine [Mass/Vol] 0.84 mg/dL Normal 0.44-1.03 [facility] Comment on above: Performed By: #### C BC, BMP #### [facility] [address] [place] [address] [place] Creatinine Clr Calc Pharmacy 47.21 [facility] Comment on above: Result Comment: PERF ORMED BY: [place] [address] PATHOLOGIST MACHINE PAINT MIXER PILAR VILLARREAL M.D. Performed By: #### C BC, BMP #### [facility] [address] [place] [address] [place] Estimated GFR ( Rose > 60 [facility] Comment on above: Result Comment: GFR estimated reference range: According to KDOQI guidelines, <60 ml/min/1.73m2 is sufficient to diagnose a patient with chronic kidney disease. Performed By: #### C BC, BMP #### [facility] [address] Estimated GFR (Non- Am > 60 Normal [facility] Comment on above: Performed By: #### C BC, BMP #### [address] Glucose [Mass/Vol] 104 mg/dL High 70-100 [facility] Comment on above: Result Comment: [place] Glucose Reference Range is dependent on time and content of last meal. Glucose of more than 200 mg/dL in a nonstressed, ambulatory subject supports the diagnosis of Diabetes Mellitus. ADA recommended reference range Performed By: #### C BC, BMP #### [address] Potassium [Moles/Vol] 3.8 mmol/L Normal 3.5-5.1 [facility] Comment on above: Performed By: #### C BC, BMP #### [address] Sodium [Moles/Vol] 135 mmol/L Low 136-146 [facility] Comment on above: Performed By: #### C BC, BMP #### [address] Urea nitrogen [Mass/Vol] 10 mg/dL Normal 9-23 [facility] Comment on above: Performed By: #### C BC, BMP #### [place] [address] [place] Basophils Auto (Bld) [#/Vol] Ordered By: Stiven Zaman on 06-23-2022 Basophils (Bld) [#/Vol] 0.1 10*3/uL 0.0-0.2 [facility] Basophils/100 WBC Auto (Bld) Ordered By: Stiven Zaman on 06-23-2022 Basophils/100 WBC (Bld) 0.8 % . F [facility] Complete Blood Count Auto Di ffon 06-23-2022 Basophils (Bld) [#/Vol] 0.1 10*3/uL Normal 0.0-0.2 [facility] Comment on above: Result Comment: PERF ORMED BY: [place] [address] PATHOLOGIST MACHINE PAINT MIXER PILAR VILLARREAL M.D. Performed By: #### C BC, BMP #### [address] Basophils/100 WBC (Bld) 0.8 % Normal . F [facility] Comment on above: Performed By: #### C BC, BMP #### [address] Eosinophils (Bld) [#/Vol] 0.3 10*3/uL Normal 0.0-0.45 [facility] Comment on above: Performed By: #### C BC, BMP #### [address] Eosinophils/100 WBC (Bld) 3.2 % Normal . [facility] Comment on above: Performed By: #### C BC, BMP #### [address] Erythrocyte distribution width (RBC) [Ratio] 13.3 % Normal 11.9-15.3 [facility] Comment on above: Performed By: #### C BC, BMP #### [address] Hematocrit (Bld) [Volume fraction] 38.3 % Normal 34.0-46.4 [facility] Comment on above: Performed By: #### C BC, BMP #### [place] [address] [place] Hemoglobin (Bld) [Mass/Vol] 12.8 g/dL Normal 11.8-15.4 [facility] Comment on above: Performed By: #### C BC, BMP #### [place] [address] [place] Lymphocytes (Bld) [#/Vol] 2.6 10*3/uL Normal 1.00-4.8 [facility] Comment on above: Performed By: #### C BC, BMP #### [facility] [address] Lymphocytes/100 WBC (Bld) 31.9 % Normal . [facility] Comment on above: Performed By: #### C BC, BMP #### [facility] [address] [place] [address] [place] MCH (RBC) [Entitic mass] 34.1 pg Normal 24.7-34.3 [facility] Comment on above: Performed By: #### C BC, BMP #### [facility] [address] MCV (RBC) [Entitic vol] 102.2 fL High 80-100 [facility] Comment on above: Performed By: #### C BC, BMP #### [facility] [address] Mean Corpuscular HGB Conc 33.4 g/dL Normal 32.0-35.0 [facility] Comment on above: Performed By: #### C BC, BMP #### [facility] [address] [place] [address] [place] Monocytes (Bld) [#/Vol] 0.7 10*3/uL Normal 0.0-0.8 [facility] Comment on above: Performed By: #### C BC, BMP #### [facility] [address] [place] [address] [place] Monocytes/100 WBC (Bld) 8.4 % Normal . [facility] Comment on above: Performed By: #### C BC, BMP #### [facility] [address] [place] [address] [place] Neutrophils (Bld) [#/Vol] 4.5 10*3/uL Normal 1.8-7.7 [facility] Comment on above: Performed By: #### C BC, BMP #### [facility] [address] Neutrophils/100 WBC (Bld) 55.7 % Normal . [facility] Comment on above: Performed By: #### C BC, BMP #### [facility] [address] NRBC% 0.1 /100{WBC} Normal 0-0.5 [facility] Comment on above: Performed By: #### C BC, BMP #### [facility] [address] Platelet mean volume (Bld) [Entitic vol] 8.0 fL Normal 6.3-10.7 [facility] Comment on above: Performed By: #### C BC, BMP #### [facility] [address] Platelets (Bld) [#/Vol] 272 10*3/uL Normal 150-450 [facility] Comment on above: Performed By: #### C BC, BMP #### [facility] [address] RBC (Bld) [#/Vol] 3.75 10*6/uL Normal 3.60-5.00 [facility] Comment on above: Performed By: #### C BC, BMP #### [facility] [address] WBC (Bld) [#/Vol] 8.1 10*3/uL Normal 3.8-11.6 [facility] Comment on above: Performed By: #### C BC, BMP #### [address] Creatinine and Glomerular fi ltration rate.predicted panel (S/P/Bld)Ordered By: Stiven Zaman on 06-23-2022 Creatinine [Mass/Vol] 0.84 mg/dL 0.44-1.03 [facility] Eosinophils Auto (Bld) [#/Vo l]Ordered By: Stiven Zaman on 06-23-2022 Eosinophils (Bld) [#/Vol] 0.3 10*3/uL 0.0-0.45 [facility] Eosinophils/100 WBC Auto (Bl d)Ordered By: Stiven Zaman on 06-23-2022 Eosinophils/100 WBC (Bld) 3.2 % . [facility] Erythrocyte distribution wid th Auto (RBC) [Ratio]Ordered By: Stiven Zaman on 06-23-2022 Erythrocyte distribution width (RBC) [Ratio] 13.3 % 11.9-15.3 [facility] Estimated glomerular filtrat ion rate (GFR) non- AmericanOrdered By: Stiven Zaman on 06-23-2022 GFR/1.73 sq M.predicted among non-blacks MDRD (S/P/Bld) [Vol rate/Area] > 60 mL/Min [facility] Hematocrit Auto (Bld) [Volum e fraction]Ordered By: Stiven Zaman on 06-23-2022 Hematocrit (Bld) [Volume fraction] 38.3 % 34.0-46.4 [facility] Hemoglobin [Mass/volume] in BloodOrdered By: Stiven Zaman on 06-23-2022 Hemoglobin (Bld) [Mass/Vol] 12.8 g/dL 11.8-15.4 [facility] Leukocytes [#/volume] correc zoe for nucleated erythrocytes in Blood by Automated counOrdered By: Stiven Zaman on 06-23-2022 WBC corrected for nucl RBC Auto (Bld) [#/Vol] 8.1 10*3/uL 3.8-11.6 [facility] Lymphocytes Auto (Bld) [#/Vo l]Ordered By: Stiven Zaman on 06-23-2022 Lymphocytes (Bld) [#/Vol] 2.6 10*3/uL 1.00-4.8 [facility] Lymphocytes/100 WBC Auto (Bl d)Ordered By: Stiven Zaman on 06-23-2022 Lymphocytes/100 WBC (Bld) 31.9 % . [facility] MCH Auto (RBC) [Entitic mass ]Ordered By: Stiven Zaman on 06-23-2022 MCH (RBC) [Entitic mass] 34.1 pg 24.7-34.3 [facility] MCHC Auto (RBC) [Mass/Vol]Or dered By: Stiven Zaman on 06-23-2022 MCHC (RBC) [Mass/Vol] 33.4 g/dL 32.0-35.0 [facility] MCV Auto (RBC) [Entitic vol] Ordered By: Stiven Zaman on 06-23-2022 MCV (RBC) [Entitic vol] 102.2 fL 80-100 [facility] Monocytes Auto (Bld) [#/Vol] Ordered By: Stiven Zaman on 06-23-2022 Monocytes (Bld) [#/Vol] 0.7 10*3/uL 0.0-0.8 [facility] Monocytes/100 WBC Auto (Bld) Ordered By: Stvien Zaman on 06-23-2022 Monocytes/100 WBC (Bld) 8.4 % . F [facility] Neutrophils Auto (Bld) [#/Vo l]Ordered By: Stiven Zaman on 06-23-2022 Neutrophils (Bld) [#/Vol] 4.5 10*3/uL 1.8-7.7 [facility] Neutrophils/100 WBC Auto (Bl d)Ordered By: Stiven Zaman on 06-23-2022 Neutrophils/100 WBC (Bld) 55.7 % . [facility] No Panel InformationOrdered By: Stiven Zaman on 06-23-2022 Estimated GFR () > 60 mL/Min [facility] Comment on above: GFR estimated refere nce range: According to KDOQI guidelines, <60 ml/min/1.73m2 is sufficient to diagnose a patient with chronic kidney disease. Pharmacy Creatinine Clearance (Chem 47.21 [facility] Nucleated erythrocytes [Pres ence] in Blood by Automated countOrdered By: Stiven Zaman on 06-23-2022 Nucleated RBC Auto Ql (Bld) 0.1 /100{WBC} 0-0.5 [facility] Platelet mean volume Auto (B ld) [Entitic vol]Ordered By: Stiven Zaman on 06-23-2022 Platelet mean volume (Bld) [Entitic vol] 8.0 fL 6.3-10.7 [facility] Platelets Auto (Bld) [#/Vol] Ordered By: Stiven Zaman on 06-23-2022 Platelets (Bld) [#/Vol] 272 10*3/uL 150-450 [facility] RBC Auto (Bld) [#/Vol]Ordere d By: Stiven Zaman on 06-23-2022 RBC (Bld) [#/Vol] 3.75 10*6/uL 3.60-5.00 [facility] Serum or plasma anion gap de terminationOrdered By: Stiven Zaman on 06-23-2022 Anion gap [Moles/Vol] 16.1 mmol/L 6.0-15.0 [facility] Serum or plasma calcium jerrod urement (mass/volume)Ordered By: Stiven Zaman on 06-23-2022 Calcium [Mass/Vol] 9.4 mg/dL 8.2-10.2 [facility] Serum or plasma chloride salma surement (moles/volume)Ordered By: Stiven Zaman on 06-23-2022 Chloride [Moles/Vol] 102 mmol/L 95-114 [facility] Serum or plasma glucose jerrod urement (mass/volume)Ordered By: Stiven Zaman on 06-23-2022 Glucose [Mass/Vol] 104 mg/dL 70-100 [facility] Comment on above: ADA recommended refe rence rangeRandom Glucose Reference Range is dependent on time and content of last meal. Glucose of more than 200 mg/dL in a nonstressed, ambulatory subject supports the diagnosis of Diabetes Mellitus. Serum or plasma potassium me asurement (moles/volume)Ordered By: Stiven Zaman on 06-23-2022 Potassium [Moles/Vol] 3.8 mmol/L 3.5-5.1 [facility] Serum or plasma sodium measu rement (moles/volume)Ordered By: Stiven Zaman on 06-23-2022 Sodium [Moles/Vol] 135 mmol/L 136-146 [facility] Serum or plasma total carbon dioxide measurement (moles/volume)Ordered By: Stiven Zaman on 06-23-2022 CO2 [Moles/Vol] 20.7 mmol/L 22.0-30.0 [facility] Serum or plasma urea nitroge n measurement (mass/volume)Ordered By: Stiven Zaman on 06-23-2022 Urea nitrogen [Mass/Vol] 10 mg/dL 9-23 [facility] WBC Auto (Bld) [#/Vol]Ordere d By: Stiven Zaman on 06-23-2022 WBC (Bld) [#/Vol] 8.1 10*3/uL 3.8-11.6 [facility] Glucose Glucometer (BldC) [M ass/Vol]Ordered By: Stiven Zaman on 06-21-2022 Glucose [Mass/Vol] 108 mg/dL [facility] Comment on above: Random Glucose Refer ence Range is dependent on time and content of last meal. Glucose of more than 200 mg/dL in a nonstressed, ambulatory subject supports the diagnosis of Diabetes Mellitus. Glucose Poct Glucometerson 0 06-21-2022 Glucose [Mass/Vol] 108 mg/dL Normal [facility] Comment on above: Result Comment: [place] om Glucose Reference Range is dependent on time and content of last meal. Glucose of more than 200 mg/dL in a nonstressed, ambulatory subject supports the diagnosis of Diabetes Mellitus. PERFORMED BY: [place] [address] PATHOLOGIST MACHINE PAINT MIXER PILAR VILLRAREAL M.D. Performed By: #### G KIRA #### Point of Care testing , Glucose Poct Glucometerson 0 06-20-2022 Glucose [Mass/Vol] 93 mg/dL Normal [facility] Comment on above: Result Comment: [place] om Glucose Reference Range is dependent on time and content of last meal. Glucose of more than 200 mg/dL in a nonstressed, ambulatory subject supports the diagnosis of Diabetes Mellitus. PERFORMED BY: [place] [address] PATHOLOGIST MACHINE PAINT MIXER PILAR VILLARREAL M.D. Performed By: #### L IPID, A1C [facility] eA #### [address] Glucose [Mass/Vol] 107 mg/dL Normal [facility] Comment on above: Result Comment: [place] om Glucose Reference Range is dependent on time and content of last meal. Glucose of more than 200 mg/dL in a nonstressed, ambulatory subject supports the diagnosis of Diabetes Mellitus. PERFORMED BY: [place] [id number] PATHOLOGIST MACHINE PAINT MIXER PILAR VILLARREAL M.D. Performed By: #### G LULS #### Point of Care testing , Glucose Poct Glucometerson 0 06-19-2022 Commemt1 Normal [facility] Comment on above: Result Comment: Glu2 : WILL NOTIFY DR/RN Performed By: #### G LULS #### Point of Care testing , Commemt2 Cleaned Meter Normal [facility] Comment on above: Result Comment: PERF ORMED BY: [place] [address] PATHOLOGIST MACHINE PAINT MIXER PILAR VILLARREAL M.D. Performed By: #### G LULS #### Point of Care testing , Glucose [Mass/Vol] 118 mg/dL Normal [facility] Comment on above: Result Comment: [place] om Glucose Reference Range is dependent on time and content of last meal. Glucose of more than 200 mg/dL in a nonstressed, ambulatory subject supports the diagnosis of Diabetes Mellitus. Performed By: #### G LULS #### Point of Care testing , Glucose [Mass/Vol] 97 mg/dL Normal [facility] Comment on above: Result Comment: [place] om Glucose Reference Range is dependent on time and content of last meal. Glucose of more than 200 mg/dL in a nonstressed, ambulatory subject supports the diagnosis of Diabetes Mellitus. PERFORMED BY: [place] [address] PATHOLOGIST MACHINE PAINT MIXER PILAR VILLARREAL M.D. Performed By: #### G LULS #### Point of Care testing , No Panel InformationOrdered By: Stiven Zaman on 06-19-2022 Bedside Glucose #2 Comment Cleaned meter [facility] Bedside Glucose Comment See comment [facility] Comment on above: Glu2: WILL NOTIFY DR /RN XR hip LT min 2V(w/wo pelvis )*on 06-19-2022 XR hip LT min 2V(w/wo pelvis)* [facility] [address] [address] XRay Report Signed Patient: Abdirahman Gomez MR#: [id number] : 1940 Acct:[id number] Age/Sex: 81 / F ADM Date: 06/16/22 Loc: Room: 6X1850-0 Type: ADM IN Attending Dr: Stiven Zaman MD Copies to: MD Tamara Santiago DO, RYAN Ordering Provider: Tamara Saleh DO, RES Date [...] Beasley Jr., D.O.06/19/2022 3:01 PM Dictation Location: [place] [address] Transcribed By: [facility] 06/19/22 1501 Dictated By: Stiven Beasley Jr, DO 06/19/22 1500 Signed By: 06/19/22 1501 [facility] Glucose Poct Glucometerson 0 06-18-2022 Commemt1 Glu2: Cleaned Meter [facility] Comment on above: Result Comment: PERF ORMED BY: [facility] [address] [place] [address] PATHOLOGIST MACHINE PAINT MIXER PILAR VILLARREAL M.D. Performed By: #### G KIRA #### Point of Care testing , Glucose [Mass/Vol] 105 mg/dL [facility] Comment on above: Result Comment: [place] Glucose Reference Range is dependent on time and content of last meal. Glucose of more than 200 mg/dL in a nonstressed, ambulatory subject supports the diagnosis of Diabetes Mellitus. Performed By: #### G CARLEENLS #### Point of Care testing , Glucose [Mass/Vol] 107 mg/dL Normal [facility] Comment on above: Result Comment: [place] Glucose Reference Range is dependent on time and content of last meal. Glucose of more than 200 mg/dL in a nonstressed, ambulatory subject supports the diagnosis of Diabetes Mellitus. PERFORMED BY: [place] [address] PATHOLOGIST MACHINE PAINT MIXER PILAR VILLARREAL M.D. Performed By: #### C BC, BMP #### [place] [id number] [facility] US carotid doppler BIon -0 US carotid doppler BI [facility] Main [place] [address] [place] [address] Ultrasound Report Signed Patient: Abdirahman Gomez MR#: [id number] : 1940 Acct:[id number] Age/Sex: 81 / F ADM Date: 06/09/22 Loc: Room: [address] [place] [address] Type: DIS IN Attending Dr: Frida De [...] Bebo Howell MD06/18/2022 4:50 PM Dictation Location: [facility]- Tech: Margarethuy Rust Transcribed By: CHANDRAKANT 06/18/22 1650 Dictated By: Bebo Howell MD 06/18/22 1648 Signed By: 06/18/22 1650 Normal [facility] Albumin [Mass/volume] in Ser um or PlasmaOrdered By: Stiven Zaman on 06-17-2022 Albumin [Mass/Vol] 3.3 g/dL 3.2-5.5 [facility] Complete Blood Count Auto Di ffon 06-17-2022 Basophils (Bld) [#/Vol] 0.2 10*3/uL Normal 0.0-0.2 [facility] Comment on above: Result Comment: PERF ORMED BY: [facility] [address] [place] [address] PATHOLOGIST MACHINE PAINT MIXER PILAR VILLARREAL M.D. Performed By: #### G LULS #### Point of Care testing , Basophils/100 WBC (Bld) 1.4 % Normal . [facility] Comment on above: Performed By: #### G LULS #### Point of Care testing , Eosinophils (Bld) [#/Vol] 0.3 10*3/uL Normal 0.0-0.45 [facility] Comment on above: Performed By: #### G CARLEENLS #### Point of Care testing , Eosinophils/100 WBC (Bld) 2.4 % Normal . [facility] Comment on above: Performed By: #### G CARLEENLS #### Point of Care testing , Erythrocyte distribution width (RBC) [Ratio] 13.2 % Normal 11.9-15.3 [facility] Comment on above: Performed By: #### G LULS #### Point of Care testing , Hematocrit (Bld) [Volume fraction] 38.9 % Normal 34.0-46.4 [facility] Comment on above: Performed By: #### G CARLEENLS #### Point of Care testing , Hemoglobin (Bld) [Mass/Vol] 12.8 g/dL Normal 11.8-15.4 [facility] Comment on above: Performed By: #### G CARLEENLS #### Point of Care testing , Lymphocytes (Bld) [#/Vol] 3.2 10*3/uL Normal 1.00-4.8 [facility] Comment on above: Performed By: #### G LULS #### Point of Care testing , Lymphocytes/100 WBC (Bld) 29.1 % Normal . [facility] Comment on above: Performed By: #### G CARLEENLS #### Point of Care testing , MCH (RBC) [Entitic mass] 33.5 pg Normal 24.7-34.3 [facility] Comment on above: Performed By: #### G CARLEENLS #### Point of Care testing , MCV (RBC) [Entitic vol] 102.3 fL High 80-100 [facility] Comment on above: Performed By: #### G CARLEENLS #### Point of Care testing , Mean Corpuscular HGB Conc 32.8 g/dL Normal 32.0-35.0 [facility] Comment on above: Performed By: #### G CARLEENLS #### Point of Care testing , Monocytes (Bld) [#/Vol] 1.0 10*3/uL High 0.0-0.8 [facility] Comment on above: Performed By: #### G CARLEENLS #### Point of Care testing , Monocytes/100 WBC (Bld) 9.4 % Normal . [facility] Comment on above: Performed By: #### G CARLEENLS #### Point of Care testing , Neutrophils (Bld) [#/Vol] 6.3 10*3/uL Normal 1.8-7.7 [facility] Comment on above: Performed By: #### G CARLEENLS #### Point of Care testing , Neutrophils/100 WBC (Bld) 57.7 % Normal . [facility] Comment on above: Performed By: #### G CARLEENLS #### Point of Care testing , NRBC% 0.0 /100{WBC} Normal 0-0.5 [facility] Comment on above: Performed By: #### G KIRA #### Point of Care testing , Platelet mean volume (Bld) [Entitic vol] 7.5 fL Normal 6.3-10.7 [facility] Comment on above: Performed By: #### G CARLEENLS #### Point of Care testing , Platelets (Bld) [#/Vol] 309 10*3/uL Normal 150-450 [facility] Comment on above: Performed By: #### G KIRA #### Point of Care testing , RBC (Bld) [#/Vol] 3.81 10*6/uL Normal 3.60-5.00 [facility] Comment on above: Performed By: #### G KIRA #### Point of Care testing , WBC (Bld) [#/Vol] 10.9 10*3/uL Normal 3.8-11.6 [facility] Comment on above: Performed By: #### G CARLEENLS #### Point of Care testing , Comprehensive Metabolic Pane jazmin 06-17-2022 Albumin [Mass/Vol] 3.3 g/dL Normal 3.2-5.5 [facility] Comment on above: Performed By: #### G KIRA #### Point of Care testing , Albumin/Globulin [Mass ratio] 0.9 {ratio} Normal [facility] Comment on above: Performed By: #### G KIRA #### Point of Care testing , ALP [Catalytic activity/Vol] 76 U/L Normal 32-92 [facility] Comment on above: Performed By: #### G KIRA #### Point of Care testing , ALT [Catalytic activity/Vol] 39 U/L Normal 10-60 [facility] Comment on above: Performed By: #### G KIRA #### Point of Care testing , Anion gap [Moles/Vol] 13.1 mmol/L Normal 6.0-15.0 [facility] Comment on above: Performed By: #### G KIRA #### Point of Care testing , AST [Catalytic activity/Vol] 52 U/L High 10-42 [facility] Comment on above: Performed By: #### G KIRA #### Point of Care testing , Bilirubin [Mass/Vol] 0.5 mg/dL Normal 0.3-1.2 [facility] Comment on above: Performed By: #### Ginna MALONE #### Point of Care testing , Calcium [Mass/Vol] 9.0 mg/dL Normal 8.2-10.2 [facility] Comment on above: Performed By: #### Ginna MALONE #### Point of Care testing , Chloride [Moles/Vol] 106 mmol/L Normal 95-114 [facility] Comment on above: Performed By: #### G KIRA #### Point of Care testing , CO2 [Moles/Vol] 20.6 mmol/L Low 22.0-30.0 [facility] Comment on above: Performed By: #### G KIRA #### Point of Care testing , Creatinine [Mass/Vol] 0.78 mg/dL Normal 0.44-1.03 [facility] Comment on above: Performed By: #### G KIRA #### Point of Care testing , Creatinine Clr Calc Pharmacy 50.13 [facility] Comment on above: Performed By: #### G KIRA #### Point of Care testing , Estimated GFR ( Rose > 60 [facility] Comment on above: Result Comment: GFR estimated reference range: According to KDOQI guidelines, <60 ml/min/1.73m2 is sufficient to diagnose a patient with chronic kidney disease. Performed By: #### G LULS #### Point of Care testing , Estimated GFR (Non- Am > 60 [facility] Comment on above: Performed By: #### G LULS #### Point of Care testing , Globulin (S) [Mass/Vol] 3.6 g/dL Normal [facility] Comment on above: Performed By: #### G LULS #### Point of Care testing , Glucose [Mass/Vol] 107 mg/dL High 70-100 [facility] Comment on above: Result Comment: [place] Glucose Reference Range is dependent on time and content of last meal. Glucose of more than 200 mg/dL in a nonstressed, ambulatory subject supports the diagnosis of Diabetes Mellitus. ADA recommended reference range Performed By: #### G LULS #### Point of Care testing , Potassium [Moles/Vol] 3.7 mmol/L Normal 3.5-5.1 [facility] Comment on above: Performed By: #### G LULS #### Point of Care testing , Protein [Mass/Vol] 6.9 g/dL Normal 6.1-7.9 [facility] Comment on above: Performed By: #### G LULS #### Point of Care testing , Sodium [Moles/Vol] 136 mmol/L Normal 136-146 [facility] Comment on above: Performed By: #### G LULS #### Point of Care testing , Urea nitrogen [Mass/Vol] 13 mg/dL Normal 9-23 [facility] Comment on above: Performed By: #### G LULS #### Point of Care testing , Globulin Calc (S) [Mass/Vol] Ordered By: Stiven Zaman on 06-17-2022 Globulin (S) [Mass/Vol] 3.6 g/dL [facility] Glucose Poct Glucometerson 0 06-17-2022 Commemt1 [facility] Comment on above: Result Comment: Glu2 : WILL NOTIFY DR/RN Performed By: #### G LULS #### Point of Care testing , Commemt2 Cleaned Meter Normal [facility] Comment on above: Result Comment: PERF ORMED BY: [place] [address] PATHOLOGIST MACHINE PAINT MIXER PILAR VILLARREAL M.D. Performed By: #### G LULS #### Point of Care testing , Glucose [Mass/Vol] 121 mg/dL Normal [facility] Comment on above: Result Comment: [place] Glucose Reference Range is dependent on time and content of last meal. Glucose of more than 200 mg/dL in a nonstressed, ambulatory subject supports the diagnosis of Diabetes Mellitus. Performed By: #### G LULS #### Point of Care testing , Glucose [Mass/Vol] 105 mg/dL Normal [facility] Comment on above: Result Comment: [place] om Glucose Reference Range is dependent on time and content of last meal. Glucose of more than 200 mg/dL in a nonstressed, ambulatory subject supports the diagnosis of Diabetes Mellitus. PERFORMED BY: [place] [address] PATHOLOGIST MACHINE PAINT MIXER PILAR VILLARREAL M.D. Performed By: #### G CARLEENLS #### Point of Care testing , Prealbuminon 06-17-2022 Prealbumin [Mass/Vol] 24.1 mg/dL Normal 18.0-38.0 [facility] Comment on above: Result Comment: PERF ORMED BY: [place] [address] PATHOLOGIST MACHINE PAINT MIXER PILAR VILLARREAL M.D. Performed By: #### L IPID, A1C WT eA #### [address] Protein [Mass/volume] in Ser um or PlasmaOrdered By: Stiven Zaman on 06-17-2022 Protein [Mass/Vol] 6.9 g/dL 6.1-7.9 [facility] Serum or plasma alanine carney otransferase measurement without P-5'-P (enzymatic activiOrdered By: Stiven Zaman on 01-04-2023 ALT No additional P-5'-P [Catalytic activity/Vol] 39 U/L 10-60 [facility] Serum or plasma albumin/glob ulin mass ratioOrdered By: Stiven Zaman on 06-17-2022 Albumin/Globulin [Mass ratio] 0.9 {ratio} [facility] Serum or plasma alkaline ayad sphatase measurement (enzymatic activity/volume)Ordered By: Stiven Zaman on 06-17-2022 ALP [Catalytic activity/Vol] 76 U/L 32-92 [facility] Serum or plasma aspartate am inotransferase measurement (enzymatic activity/volume)Ordered By: Stiven Zaman on 06-17-2022 AST [Catalytic activity/Vol] 52 U/L 10-42 [facility] Serum or plasma prealbumin m easurement (mass/volume)Ordered By: Stiven Zaman on 06-17-2022 Prealbumin [Mass/Vol] 24.1 mg/dL 18.0-38.0 [facility] Serum or plasma total biliru bin measurement (mass/volume)Ordered By: Stiven Zaman on 06-17-2022 Bilirubin [Mass/Vol] 0.5 mg/dL 0.3-1.2 [facility] Basic Metabolic Panelon Anion gap [Moles/Vol] 14.0 mmol/L Normal 6.0-15.0 [facility] Comment on above: Performed By: #### L IPID, A1C [facility] eA #### [facility] [address] [place] [address] [place] Calcium [Mass/Vol] 9.5 mg/dL Normal 8.2-10.2 [facility] Comment on above: Performed By: #### L IPID, [address] eA #### [facility] [address] [place] [address] [place] Chloride [Moles/Vol] 102 mmol/L Normal 95-114 [facility] Comment on above: Performed By: #### L IPID, [address] eA #### [facility] [address] [place] [address] [place] CO2 [Moles/Vol] 21.7 mmol/L Low 22.0-30.0 [facility] Comment on above: Performed By: #### L IPID, A1C WTH eA #### [facility] [address] [place] [address] [place] Creatinine [Mass/Vol] 0.83 mg/dL Normal 0.44-1.03 [facility] Comment on above: Performed By: #### L IPID, A1C WTH eA #### [place] [address] [place] Creatinine Clr Calc Pharmacy 48.32 [facility] Comment on above: Result Comment: PERF ORMED BY: [place] [address] PATHOLOGIST MACHINE PAINT MIXER PILAR VILLARREAL M.D. Performed By: #### L IPID, A1C WTH eA #### [address] Estimated GFR ( Rose > 60 [facility] Comment on above: Result Comment: GFR estimated reference range: According to KDOQI guidelines, <60 ml/min/1.73m2 is sufficient to diagnose a patient with chronic kidney disease. Performed By: #### L IPID, A1C WTH eA #### [facility] [address] [place] [address] [place] Estimated GFR (Non- Am > 60 [facility] Comment on above: Performed By: #### L IPID, A1C WTH eA #### [place] [address] [place] Glucose [Mass/Vol] 142 mg/dL High 70-100 [facility] Comment on above: Result Comment: [place] Glucose Reference Range is dependent on time and content of last meal. Glucose of more than 200 mg/dL in a nonstressed, ambulatory subject supports the diagnosis of Diabetes Mellitus. ADA recommended reference range Performed By: #### L IPID, A1C WTH eA #### [place] [address] [place] Potassium [Moles/Vol] 3.7 mmol/L Normal 3.5-5.1 [facility] Comment on above: Performed By: #### L IPID, A1C WTH eA #### [address] [place] [address] [place] Sodium [Moles/Vol] 134 mmol/L Low 136-146 [facility] Comment on above: Performed By: #### L IPID, A1C WT eA #### [facility] [address] [place] [address] [place] Urea nitrogen [Mass/Vol] 15 mg/dL Normal 9-23 [facility] Comment on above: Performed By: #### L IPID, [address] eA #### [facility] [address] [place] [address] [place] Basophils Auto (Bld) [#/Vol] Ordered By: Frida De La Cruz on 06-15-2022 Basophils (Bld) [#/Vol] 0.1 10*3/uL 0.0-0.2 [facility] Basophils/100 WBC Auto (Bld) Ordered By: Frida De La Cruz on 06-15-2022 Basophils/100 WBC (Bld) 1.2 % . [facility] Complete Blood Count Auto Di ffon 06-15-2022 Basophils (Bld) [#/Vol] 0.1 10*3/uL Normal 0.0-0.2 [facility] Comment on above: Result Comment: PERF ORMED BY: [place] [address] PATHOLOGIST MACHINE PAINT MIXER PILAR VILLARREAL M.D. Performed By: #### L IPID, [address] eA #### [facility] [address] [place] [address] [place] Basophils/100 WBC (Bld) 1.2 % Normal . [facility] Comment on above: Performed By: #### L IPID, A1C WT eA #### [facility] [address] [place] [address] [place] Eosinophils (Bld) [#/Vol] 0.3 10*3/uL Normal 0.0-0.45 [facility] Comment on above: Performed By: #### L IPID, A1C WT eA #### [facility] [address] [place] [address] [place] Eosinophils/100 WBC (Bld) 2.6 % Normal . [facility] Comment on above: Performed By: #### L IPID, A1C [facility] eA #### [address] Erythrocyte distribution width (RBC) [Ratio] 13.7 % Normal 11.9-15.3 [facility] Comment on above: Performed By: #### L IPID, [address] eA #### [address] Hematocrit (Bld) [Volume fraction] 41.4 % Normal 34.0-46.4 [facility] Comment on above: Performed By: #### L IPID, [address] eA #### [address] Hemoglobin (Bld) [Mass/Vol] 13.6 g/dL Normal 11.8-15.4 [facility] Comment on above: Performed By: #### L IPID, [address] eA #### [address] Lymphocytes (Bld) [#/Vol] 2.9 10*3/uL Normal 1.00-4.8 [facility] Comment on above: Performed By: #### L IPID, [address] eA #### [address] Lymphocytes/100 WBC (Bld) 27.7 % Normal . [facility] Comment on above: Performed By: #### L IPID, [address] eA #### [place] [address] [place] MCH (RBC) [Entitic mass] 33.9 pg Normal 24.7-34.3 [facility] Comment on above: Performed By: #### L IPID, [address] eA #### [address] MCV (RBC) [Entitic vol] 103.3 fL High 80-100 [facility] Comment on above: Performed By: #### L IPID, [address] eA #### [address] [place] [address] [place] Mean Corpuscular HGB Conc 32.8 g/dL Normal 32.0-35.0 [facility] Comment on above: Performed By: #### L IPID, [facility] WT eA #### [facility] [address] [place] [address] [place] Monocytes (Bld) [#/Vol] 0.7 10*3/uL Normal 0.0-0.8 [facility] Comment on above: Performed By: #### L IPID, [address] eA #### [facility] [address] [place] [address] [place] Monocytes/100 WBC (Bld) 6.9 % Normal . [facility] Comment on above: Performed By: #### L IPID, [address] eA #### [facility] [address] [place] [address] [place] Neutrophils (Bld) [#/Vol] 6.6 10*3/uL Normal 1.8-7.7 [facility] Comment on above: Performed By: #### L IPID, [address] eA #### [facility] [address] [place] [address] [place] Neutrophils/100 WBC (Bld) 61.6 % Normal . [facility] Comment on above: Performed By: #### L IPID, A1C WT eA #### [facility] [address] [place] [address] [place] NRBC% 0.1 /100{WBC} Normal 0-0.5 [facility] Comment on above: Performed By: #### L IPID, A1C WT eA #### [facility] [address] [place] [address] [place] Platelet mean volume (Bld) [Entitic vol] 8.0 fL Normal 6.3-10.7 [facility] Comment on above: Performed By: #### L IPID, A1C WT eA #### [facility] [address] [place] [id number] [place] Platelets (Bld) [#/Vol] 282 10*3/uL Normal 150-450 [facility] Comment on above: Performed By: #### L IPID, A1C WT eA #### [facility] [address] [place] [address] [place] RBC (Bld) [#/Vol] 4.01 10*6/uL Normal 3.60-5.00 [facility] Comment on above: Performed By: #### L IPID, A1C WT eA #### [facility] [address] [place] [id number] [place] WBC (Bld) [#/Vol] 10.7 10*3/uL Normal 3.8-11.6 [facility] Comment on above: Performed By: #### L IPID, A1C [facility] eA #### [facility] [address] [place] [address] [place] Creatinine and Glomerular fi ltration rate.predicted panel (S/P/Bld)Ordered By: Frida De La Cruz on 06-15-2022 Creatinine [Mass/Vol] 0.83 mg/dL 0.44-1.03 [facility] Eosinophils Auto (Bld) [#/Vo l]Ordered By: Frida De La Cruz on 06-15-2022 Eosinophils (Bld) [#/Vol] 0.3 10*3/uL 0.0-0.45 [facility] Eosinophils/100 WBC Auto (Bl d)Ordered By: Frida De La Cruz on 06-15-2022 Eosinophils/100 WBC (Bld) 2.6 % . [facility] Erythrocyte distribution wid th Auto (RBC) [Ratio]Ordered By: Frida De La Cruz on 06-15-2022 Erythrocyte distribution width (RBC) [Ratio] 13.7 % 11.9-15.3 [facility] Estimated glomerular filtrat ion rate (GFR) non- AmericanOrdered By: Frida De La Cruz on 06-15-2022 GFR/1.73 sq M.predicted among non-blacks MDRD (S/P/Bld) [Vol rate/Area] > 60 mL/Min [facility] Hematocrit Auto (Bld) [Volum e fraction]Ordered By: Frida De La Cruz on 06-15-2022 Hematocrit (Bld) [Volume fraction] 41.4 % 34.0-46.4 [facility] Hemoglobin [Mass/volume] in BloodOrdered By: Frida De La Cruz on 06-15-2022 Hemoglobin (Bld) [Mass/Vol] 13.6 g/dL 11.8-15.4 [facility] Leukocytes [#/volume] correc zoe for nucleated erythrocytes in Blood by Automated counOrdered By: Frida De La Cruz on 06-15-2022 WBC corrected for nucl RBC Auto (Bld) [#/Vol] 10.7 10*3/uL 3.8-11.6 [facility] Lymphocytes Auto (Bld) [#/Vo l]Ordered By: Frida De La Cruz on 06-15-2022 Lymphocytes (Bld) [#/Vol] 2.9 10*3/uL 1.00-4.8 [facility] Lymphocytes/100 WBC Auto (Bl d)Ordered By: Frida De La Cruz on 06-15-2022 Lymphocytes/100 WBC (Bld) 27.7 % . [facility] MCH Auto (RBC) [Entitic mass ]Ordered By: Frida De La Cruz on 06-15-2022 MCH (RBC) [Entitic mass] 33.9 pg 24.7-34.3 [facility] MCHC Auto (RBC) [Mass/Vol]Or dered By: Frida De La Cruz on 06-15-2022 MCHC (RBC) [Mass/Vol] 32.8 g/dL 32.0-35.0 [facility] MCV Auto (RBC) [Entitic vol] Ordered By: Frida De La Cruz on 06-15-2022 MCV (RBC) [Entitic vol] 103.3 fL 80-100 [facility] Monocytes Auto (Bld) [#/Vol] Ordered By: Frida De La Cruz on 06-15-2022 Monocytes (Bld) [#/Vol] 0.7 10*3/uL 0.0-0.8 [facility] Monocytes/100 WBC Auto (Bld) Ordered By: Frida De La Cruz on 06-15-2022 Monocytes/100 WBC (Bld) 6.9 % . [facility] Neutrophils Auto (Bld) [#/Vo l]Ordered By: Frida De La Cruz on 06-15-2022 Neutrophils (Bld) [#/Vol] 6.6 10*3/uL 1.8-7.7 [facility] Neutrophils/100 WBC Auto (Bl d)Ordered By: Frida De La Cruz on 06-15-2022 Neutrophils/100 WBC (Bld) 61.6 % . [facility] No Panel InformationOrdered By: Frida De La Cruz on 06-15-2022 Estimated GFR () > 60 mL/Min [facility] Comment on above: GFR estimated refere nce range: According to KDOQI guidelines, <60 ml/min/1.73m2 is sufficient to diagnose a patient with chronic kidney disease. Pharmacy Creatinine Clearance (Chem 48.32 [facility] Nucleated erythrocytes [Pres ence] in Blood by Automated countOrdered By: Frida De La Cruz on 06-15-2022 Nucleated RBC Auto Ql (Bld) 0.1 /100{WBC} 0-0.5 [facility] Platelet mean volume Auto (B ld) [Entitic vol]Ordered By: Frida De La Cruz on 06-15-2022 Platelet mean volume (Bld) [Entitic vol] 8.0 fL 6.3-10.7 [facility] Platelets Auto (Bld) [#/Vol] Ordered By: Frida De La Cruz on 06-15-2022 Platelets (Bld) [#/Vol] 282 10*3/uL 150-450 [facility] RBC Auto (Bld) [#/Vol]Ordere d By: Frida De La Cruz on 06-15-2022 RBC (Bld) [#/Vol] 4.01 10*6/uL 3.60-5.00 [facility] Serum or plasma anion gap de terminationOrdered By: Frida De La Cruz on 06-15-2022 Anion gap [Moles/Vol] 14.0 mmol/L 6.0-15.0 [facility] Serum or plasma calcium jerrod urement (mass/volume)Ordered By: Frida De La Cruz on 06-15-2022 Calcium [Mass/Vol] 9.5 mg/dL 8.2-10.2 [facility] Serum or plasma chloride salma surement (moles/volume)Ordered By: Frida De La Cruz on 06-15-2022 Chloride [Moles/Vol] 102 mmol/L 95-114 [facility] Serum or plasma glucose jerrod urement (mass/volume)Ordered By: Frida De La Cruz on 06-15-2022 Glucose [Mass/Vol] 142 mg/dL 70-100 [facility] Comment on above: ADA recommended refe rence rangeRandom Glucose Reference Range is dependent on time and content of last meal. Glucose of more than 200 mg/dL in a nonstressed, ambulatory subject supports the diagnosis of Diabetes Mellitus. Serum or plasma potassium me asurement (moles/volume)Ordered By: Frida De La Cruz on 06-15-2022 Potassium [Moles/Vol] 3.7 mmol/L 3.5-5.1 [facility] Serum or plasma sodium measu rement (moles/volume)Ordered By: Frida De La Cruz on 06-15-2022 Sodium [Moles/Vol] 134 mmol/L 136-146 [facility] Serum or plasma total carbon dioxide measurement (moles/volume)Ordered By: Frida De La Cruz on 06-15-2022 CO2 [Moles/Vol] 21.7 mmol/L 22.0-30.0 [facility] Serum or plasma urea nitroge n measurement (mass/volume)Ordered By: Frida De La Cruz on 06-15-2022 Urea nitrogen [Mass/Vol] 15 mg/dL 9-23 [facility] WBC Auto (Bld) [#/Vol]Ordere d By: Frida De La Cruz on 06-15-2022 WBC (Bld) [#/Vol] 10.7 10*3/uL 3.8-11.6 [facility] ECG 12 lead ECGon 06-14-2022 ECG 12 lead ECG [facility] [place] [address] Electrocardiograph Report Signed Patient: Abdirahman Gomez MR#: [id number] : 1940 Acct:[id number] Age/Sex: 81 / F ADM Date: 06/09/22 Loc: Room: [address] [place] [address] Type: DIS IN Attending Dr: Frida De [...] Yoav Prado MD 0 06/15/22 0617 Normal [facility] Troponin I High Sensitivityo n 06-14-2022 Troponin I High Sensitivity 906 pg/mL Off scale high 0-15 [facility] Comment on above: Result Comment: Crit ical value result called at 1642 on 06/14/22 PERFORMED BY: [facility] [address] [place] [address] PATHOLOGIST MACHINE PAINT MIXER PILAR VILLARREAL M.D. Performed By: #### G LULS #### Point of Care testing , Troponin I.cardiac [Mass/vol ume] in Serum or Plasma by High sensitivity methodOrdered By: Nathaniel Castillo on 06-14-2022 Troponin I.cardiac High sensitivity method [Mass/Vol] 906 pg/mL 0-15 [facility] Comment on above: Critical valueresult calledat 1642 on 06/14/22 A1C with Estimated Average G antoinepatricia 06-13-2022 Glucose [Mass/Vol] 123 mg/dL Normal [facility] Comment on above: Result Comment: PERF ORMED BY: [facility] [address] [place] [address] PATHOLOGIST MACHINE PA[employer] MIXER PILAR VILLARREAL M.D. Performed By: #### L IPID, A1C WT eA #### [facility] [address] [place] [address] [facility] HbA1c (Bld) [Mass fraction] 5.9 % High 4.3-5.6 [facility] Comment on above: Result Comment: Incr eased risk for diabetes: 5.7 - 6.4 diabetes: >6.4 glycemic control for adults with diabetes: <7.0 Performed By: #### L IPID, A1C WT eA #### [facility] [address] [place] [address] [facility] Cholesterol [Mass/volume] in Serum or PlasmaOrdered By: Nathaniel Castillo on 06-13-2022 Cholesterol [Mass/Vol] 150 mg/dL 140-200 [facility] Comment on above: Chol less than 200 m g/dl low riskChol 201-239 mg/dl borderline riskChol 240 mg/dl and greater high risk Cholesterol in LDL Calc [Mas s/Vol]Ordered By: Nathaniel Castillo on 06-13-2022 Cholesterol in LDL [Mass/Vol] 80 mg/dL 0-100 [facility] Comment on above: LDL ATP III CLASSIFI CATIONLDL less than 100 mg/dL OptimalLDL 100-129 mg/dL Near or above optimalLDL 130-159 mg/dL Borderline highLDL 160-189 mg/dL HighLDL greater than 189 mg/dL Very high Cholesterol in VLDL Calc [Ma ss/Vol]Ordered By: Nathaniel Castillo on 06-13-2022 Cholesterol in VLDL [Mass/Vol] 25 mg/dL [facility] ECG 12 lead ECGon 06-13-2022 ECG 12 lead ECG [facility] [address] [place] [address] [place] [address] Electrocardiograph Report Signed Patient: Abdirahman Gomez MR#: [id number] : 1940 Acct:[id number] Age/Sex: 81 / F ADM Date: 06/09/22 Loc: Room: [address] [place] [address] Type: DIS IN Attending Dr: Frida De La Cruz MD Ordering Provider: Frida De La Cruz MD Date of Service: 12/ ECG/ECG 12 lead ECG: abn ekg Copies [...] By Ousmane Epstein DO 06/15 1119 Normal [facility] Glucose mean value [Mass/vol ume] in Blood Estimated from glycated hemoglobinOrdered By: Nathaniel aCstillo on 06-13-2022 Average glucose Estimated from glycated hemoglobin (Bld) [Mass/Vol] 123 mg/dL [facility] Hemoglobin A1c percentageOrd ered By: Nathaniel Castillo on 06-13-2022 HbA1c (Bld) [Mass fraction] 5.9 % 4.3-5.6 [facility] Comment on above: Increased risk for d iabetes: 5.7 - 6.4diabetes: >6.4glycemic control for adults with diabetes: <7.0 Lipid Panelon 06-13-2022 Cholesterol [Mass/Vol] 150 mg/dL Normal 140-200 [facility] Comment on above: Result Comment: Chol less than 200 mg/dl low risk Chol 201-239 mg/dl borderline risk Chol 240 mg/dl and greater high risk Performed By: #### L IPID, A1C WT eA #### [facility] [address] Cholesterol in HDL [Mass/Vol] 45 mg/dL Normal 35-85 [facility] Comment on above: Result Comment: HDL CHOL ATP-III CLASSIFICATION Cardiovascular Risk HDL > or equal to 60 mg/dL LOW HDL < 40 mg/dL HIGH Performed By: #### L IPID, A1C WTH eA #### [facility] [address] Cholesterol.total/Gabriela sterol in HDL [Mass ratio] 3.3 {ratio} Normal <5.0 [facility] Comment on above: Result Comment: PERF ORMED BY: [place] [address] PATHOLOGIST MACHINE PAINT MIXER PILAR VILLARREAL M.D. Performed By: #### L IPID, [address] eA #### [address] LDL Cholesterol,Calculated 80 mg/dL Normal 0-100 [facility] Comment on above: Result Comment: LDL ATP III CLASSIFICATION LDL less than 100 mg/dL Optimal LDL 100-129 mg/dL Near or above optimal LDL 130-159 mg/dL Borderline high LDL 160-189 mg/dL High LDL greater than 189 mg/dL Very high Performed By: #### L IPID, A1C WT eA #### [address] Triglyceride w/Reflex 127 mg/dL Normal 35-149 [facility] Comment on above: Result Comment: TRIG ATP III CLASSIFICATION TRIG less than 150 mg/dL Normal TRIG 150-199 mg/dL Borderline high TRIG 200-500 mg/dL High TRIG greater than 500 mg/dL Very high Standard traceable to the Center for Disease Conrtrol and Prevention (CDC) test method. Performed By: #### L IPID, A1C WT eA #### [facility] [address] [place] [address] VLDL CHOLESTEROL 25 mg/dL Normal [facility] Comment on above: Performed By: #### L IPID, A1C WT eA #### [facility] [address] [place] [address] Serum or plasma high density lipoprotein (HDL) cholesterol measurementOrdered By: Nathaniel Castillo on 06-13-2022 Cholesterol in HDL [Mass/Vol] 45 mg/dL 35-85 [facility] Comment on above: HDL CHOL ATP-III CLA SSIFICATION Cardiovascular RiskHDL > or equal to 60 mg/dL LOWHDL < 40 mg/dL HIGH Serum or plasma total choles terol/high density lipoprotein (HDL) cholesterol mass ratOrdered By: Nathaniel Castillo on 06-13-2022 Cholesterol.total/Gabriela sterol in HDL [Mass ratio] 3.3 {ratio} <5.0 [facility] Triglyceride [Mass/volume] i n Serum or PlasmaOrdered By: Nathaniel Castillo on 06-13-2022 Triglyceride [Mass/Vol] 127 mg/dL 35-149 [facility] Comment on above: TRIG ATP III CLASSIF ICATIONTRIG less than 150 mg/dL NormalTRIG 150-199 mg/dL Borderline highTRIG 200-500 mg/dL High TRIG greater than 500 mg/dL Very highStandard traceable to the Center for Disease Conrtrol and Prevention (CDC) test method. MR angio head wo conon 06-12 MR angio head wo con [facility] [address] [place] [address] [place] [address] MRI Report Signed Patient: Abdirahman Gomez MR#: [id number] : 1940 Acct:[id number] Age/Sex: 81 / F ADM Date: 06/09/22 Loc: Room: [address] [place] [address] Type: ADM IN Attending Dr: Nathaniel Castillo MD Copies to: Nathaniel Castillo MD Ordering Provider: Nathaniel Castillo MD Date of Service: 06/12/22 MR/MR angio head wo con: stroke MRA OF THE INTRACRANIAL CIRCULATION TECHNIQUE: 3-D [id number] imaging of the [place] obtained. HISTORY:LEFT arm weakness. The visualized carotid and the vertebrobasilar system are unremarkable. No abnormality of the anterior, middle and posterior cerebral arteries identified. No arterial occlusion, stenosis or dissection identified. No intracranial aneurysm identified. MR/MR angio head wo con IMPRESSION: UNREMARKABLE MRA OF THE INTRACRANIAL CIRCULATION. Impression dictated by: Mamadou Rodríguez M.D.06/12/2022 1:36 PM Dictation Location: [place] [address] Transcribed By: [facility] 06/12/22 1339 Dictated By: Mamadou Rodríguez DO 06/12/22 1330 Signed By: 06/12/22 133 Normal [facility] MR head/brain wo conon 06-12 MR head/brain wo con [facility] [place] [address] [place] [address] MRI Report Signed Patient: Abdirahman Gomez MR#: [id number] : 1940 Acct:[id number] Age/Sex: 81 / F ADM Date: 06/09/22 Loc: Room: [address] [place] [address] Type: ADM IN Attending Dr: Nathaniel Castillo [...] Beasley Jr., D.O.06/12/2022 10:02 AM Dictation Location: [place] [address] Transcribed By: [facility] 06/12/22 1002 Dictated By: Stiven Beasley Jr, DO 06/12/22 0950 Signed By: 06/12/22 1002 Normal [facility] Complete Blood Count Auto Di ffon 06-11-2022 Basophils (Bld) [#/Vol] 0.1 10*3/uL Normal 0.0-0.2 [facility] Comment on above: Result Comment: PERF ORMED BY: [facility] [place] [address] PATHOLOGIST MACHINE PAINT MIXER PILAR VILLARREAL M.D. Performed By: #### G LULS #### Point of Care testing , Basophils/100 WBC (Bld) 0.5 % Normal . [facility] Comment on above: Performed By: #### G LULS #### Point of Care testing , Eosinophils (Bld) [#/Vol] 0.1 10*3/uL Normal 0.0-0.45 [facility] Comment on above: Performed By: #### G LULS #### Point of Care testing , Eosinophils/100 WBC (Bld) 1.2 % Normal . [facility] Comment on above: Performed By: #### G LULS #### Point of Care testing , Erythrocyte distribution width (RBC) [Ratio] 13.6 % Normal 11.9-15.3 [facility] Comment on above: Performed By: #### G LULS #### Point of Care testing , Hematocrit (Bld) [Volume fraction] 37.7 % Normal 34.0-46.4 [facility] Comment on above: Performed By: #### G LULS #### Point of Care testing , Hemoglobin (Bld) [Mass/Vol] 12.4 g/dL Normal 11.8-15.4 [facility] Comment on above: Performed By: #### G LULS #### Point of Care testing , Lymphocytes (Bld) [#/Vol] 2.8 10*3/uL Normal 1.00-4.8 [facility] Comment on above: Performed By: #### G LULS #### Point of Care testing , Lymphocytes/100 WBC (Bld) 24.1 % Normal . [facility] Comment on above: Performed By: #### G LULS #### Point of Care testing , MCH (RBC) [Entitic mass] 34.5 pg High 24.7-34.3 [facility] Comment on above: Performed By: #### G LULS #### Point of Care testing , MCV (RBC) [Entitic vol] 104.5 fL High 80-100 [facility] Comment on above: Performed By: #### Ginna MALONE #### Point of Care testing , Mean Corpuscular HGB Conc 33.0 g/dL Normal 32.0-35.0 [facility] Comment on above: Performed By: #### G KIRA #### Point of Care testing , Monocytes (Bld) [#/Vol] 1.0 10*3/uL High 0.0-0.8 [facility] Comment on above: Performed By: #### G KIRA #### Point of Care testing , Monocytes/100 WBC (Bld) 9.1 % Normal . [facility] Comment on above: Performed By: #### G KIRA #### Point of Care testing , Neutrophils (Bld) [#/Vol] 7.4 10*3/uL Normal 1.8-7.7 [facility] Comment on above: Performed By: #### Ginna MALONE #### Point of Care testing , Neutrophils/100 WBC (Bld) 65.1 % Normal . [facility] Comment on above: Performed By: #### Ginna MALONE #### Point of Care testing , NRBC% 0.1 /100{WBC} Normal 0-0.5 [facility] Comment on above: Performed By: #### G KIRA #### Point of Care testing , Platelet mean volume (Bld) [Entitic vol] 8.0 fL Normal 6.3-10.7 [facility] Comment on above: Performed By: #### Ginna MALONE #### Point of Care testing , Platelets (Bld) [#/Vol] 206 10*3/uL Normal 150-450 [facility] Comment on above: Performed By: #### Ginna MALONE #### Point of Care testing , RBC (Bld) [#/Vol] 3.61 10*6/uL Normal 3.60-5.00 [facility] Comment on above: Performed By: #### Ginna MALONE #### Point of Care testing , WBC (Bld) [#/Vol] 11.4 10*3/uL Normal 3.8-11.6 [facility] Comment on above: Performed By: #### G LULS #### Point of Care testing , ECG 12 lead ECGon 06-11-2022 ECG 12 lead ECG [facility] [place] [address] [place] [address] Electrocardiograph Report Signed Patient: Abdirahman Gomez MR#: [id number] : 1940 Acct:[id number] Age/Sex: 81 / F ADM Date: 06/09/22 Loc: Room: [address] [place] [address] Type: DIS IN Attending Dr: Frida De [...] By Yoav Prado MD 1 1318 Normal [facility] Troponin I High Sensitivityo n 06-11-2022 Troponin I High Sensitivity 3701 pg/mL Off scale high 0-15 [facility] Comment on above: Result Comment: Resu lts called at 0655 on 06/11/22 PERFORMED BY: [place] [address] PATHOLOGIST MACHINE PAINT MIXER PILAR VILLARREAL M.D. Performed By: #### L IPID, A1C WTH eA #### [place] [address] [place] XR chest 1V portableon 06-11 XR chest 1V portable [facility] Main [place] [id number] XRay Report Signed Patient: Abdirahman Gomez MR#: [id number] : 1940 Acct:[id number] Age/Sex: 81 / F ADM Date: 06/09/22 Loc: 3T Room: [address] [place] [address] Type: ADM IN Attending Dr: Nathaniel Castillo [...] COMPLICATION. Impression dictated by: Stiven Beasley Jr., D.O.06/11/2022 3:33 PM Dictation Location: [place] [address] Transcribed By: [facility] 06/11/22 1533 Dictated By: Stiven Beasley Jr, DO 06/11/22 1533 Signed By: 06/11/22 1533 Normal [facility] ECG 12 lead ECGon 06-10-2022 ECG 12 lead ECG [facility] Main [place] [id number] Electrocardiograph Report Signed Patient: Abdirahman Gomez MR#: [id number] : 1940 Acct:[id number] Age/Sex: 81 / F ADM Date: 06/09/22 Loc: 3T Room: [address] [place] [address] Type: DIS IN Attending Dr: Frida De [...] (292) on 06/10/2022 4:26:51 PM Referred By: TANN Electronically Signed By:YOAV PRADO MD Transcribed By: MUS Signed By Yoav Prado MD 1 08/11/21 [facility] ECG 12 lead ECG [facility] [place] [address] Electrocardiograph Report Signed Patient: Abdirahman Gomez MR#: [id number] : 1940 Acct:[id number] Age/Sex: 81 / F ADM Date: 06/09/22 Loc: Room: [address] [place] [address] Type: DIS IN Attending Dr: Frida De [...] MUS Signed By Yoav Prado MD 1 08/11/211625 [facility] Basic Metabolic Panelon 12-2 Anion gap [Moles/Vol] 13.4 mmol/L Normal 6.0-15.0 [facility] Comment on above: Performed By: #### L IPKAVITHA [address] eA #### [facility] [address] Calcium [Mass/Vol] 8.9 mg/dL Normal 8.2-10.2 [facility] Comment on above: Performed By: #### L IPID [address] eA #### [facility] [address] [place] [address] [place] Chloride [Moles/Vol] 106 mmol/L Normal 95-114 [facility] Comment on above: Performed By: #### L IPKAVITHA [address] eA #### [facility] [address] CO2 [Moles/Vol] 21.6 mmol/L Low 22.0-30.0 [facility] Comment on above: Performed By: #### L IPID [address] eA #### [address] Creatinine [Mass/Vol] 0.76 mg/dL Normal 0.44-1.03 [facility] Comment on above: Performed By: #### L IPID [address] eA #### [facility] [address] [place] [address] [place] Creatinine Clr Calc Pharmacy 49.92 [facility] Comment on above: Performed By: #### L IPID [address] eA #### [facility] [address] [place] [address] [place] Estimated GFR ( Rose > 60 [facility] Comment on above: Result Comment: GFR estimated reference range: According to KDOQI guidelines, <60 ml/min/1.73m2 is sufficient to diagnose a patient with chronic kidney disease. Performed By: #### L IPID, [address] eA #### [facility] [address] [place] [address] [place] Estimated GFR (Non- Am > 60 [facility] Comment on above: Performed By: #### L IPID, A1C [facility] eA #### [facility] [address] [place] [address] [place] Glucose [Mass/Vol] 136 mg/dL High 70-100 [facility] Comment on above: Result Comment: [place] Glucose Reference Range is dependent on time and content of last meal. Glucose of more than 200 mg/dL in a nonstressed, ambulatory subject supports the diagnosis of Diabetes Mellitus. ADA recommended reference range Performed By: #### L IPID, [address] eA #### [facility] [address] Potassium [Moles/Vol] 4.0 mmol/L Normal 3.5-5.1 [facility] Comment on above: Performed By: #### L IPID, [address] eA #### [facility] [address] Sodium [Moles/Vol] 137 mmol/L Normal 136-146 [facility] Comment on above: Performed By: #### L IPID, [address] eA #### [facility] [address] [place] [address] [place] Urea nitrogen [Mass/Vol] 9 mg/dL Normal 9-23 [facility] Comment on above: Performed By: #### L IPID, [address] eA #### [facility] [address] [place] [address] [place] CBC W MANUAL DIFFon 06-09-20 22 ATYPICAL LYMPH # 0.53 103/ul Normal [facility] Comment on above: Performed By: #### T SH, BNP, CMP, LIPID, T7 #### [facility] [address] [place] [address] [address] Logan Payne ATYPICAL LYMPH % 4 % Normal [facility] Comment on above: Performed By: #### T SH, BNP, CMP, LIPID, T7 #### [facility] [address] [place] [address] [address] Logan Payne BAND # 0.0 103/ul Normal 0.0-0.3 [facility] Comment on above: Performed By: #### T SH, BNP, CMP, LIPID, T7 #### [facility] [address] [place] [address] [address] Logan Payne BAND % 0 % Normal 0-5 [facility] Comment on above: Performed By: #### T SH, BNP, CMP, LIPID, T7 #### [facility] [address] [place] [address] [address] Logan Payne BASOM # 0.26 103/ul Critically high 0.00-0.10 [facility] Comment on above: Performed By: #### T SH, BNP, CMP, LIPID, T7 #### [facility] [address] [place] [address] [address] Logan Payne BASOM % 2.0 % Normal 0.2-2.0 [facility] Comment on above: Performed By: #### T SH, BNP, CMP, LIPID, T7 #### [facility] [address] [place] [address] Dr. Logan Payne BLAST # Normal [facility] Comment on above: Performed By: #### T SH, BNP, CMP, LIPID, T7 #### [facility] [address] [place] [address] Dr. Logan Payne BLAST % Normal [facility] Comment on above: Performed By: #### T SH, BNP, CMP, LIPID, T7 #### [facility] [address] [place] [address] Dr. Logan Payne CORRECTED WBC Normal 4.0-11.[address] [facility] Comment on above: Performed By: #### T SH, BNP, CMP, LIPID, T7 #### [facility] [address] [place] [address] Dr. Logan Payne EOS # 0.66 103/ul Normal 0.00-0.70 [facility] Comment on above: Performed By: #### T SH, BNP, CMP, LIPID, T7 #### [facility] [address] [place] [address] Dr. Logan Payne EOS% 5.0 % Normal 0.9-7.0 [facility] Comment on above: Performed By: #### T SH, BNP, CMP, LIPID, T7 #### [facility] [address] [place] [address] [address] Logan Payne HCT 39.6 % Normal 36.0-48.0 [facility] Comment on above: Performed By: #### T SH, BNP, CMP, LIPID, T7 #### [facility] [address] [place] [address] [address] Logan Payne HGB 13.5 g/dl Normal 12.0-16.0 [facility] Comment on above: Performed By: #### T SH, BNP, CMP, LIPID, T7 #### [facility] [address] [place] [address] [address] Logan Payne LYMPHM # 1.98 103/ul Normal 1.20-3.80 [facility] Comment on above: Performed By: #### T SH, BNP, CMP, LIPID, T7 #### [facility] [address] [place] [address] [address] Logan Payne LYMPHM% 15.0 % Critically low 20.5-60.0 [facility] Comment on above: Performed By: #### T SH, BNP, CMP, LIPID, T7 #### [facility] [address] [place] [address] [address] Logan Payne MCH 34.1 pg Critically high 26.7-34.0 [facility] Comment on above: Performed By: #### T SH, BNP, CMP, LIPID, T7 #### [facility] [address] [place] [address] [address] Logan Payne MCHC 34.1 g/dl Normal 29.9-35.2 [facility] Comment on above: Performed By: #### T SH, BNP, CMP, LIPID, T7 #### [facility] [address] [place] [address] [address] Logan Payne MCV 100.0 fL Critically high 81.0-99.0 [facility] Comment on above: Performed By: #### T SH, BNP, CMP, LIPID, T7 #### [facility] [address] [place] [address] [address] Logan Payne METAMYELOCYTE # Normal [facility] Comment on above: Performed By: #### T SH, BNP, CMP, LIPID, T7 #### [facility] [address] [place] [address] [address] Logan Payne METAMYELOCYTE % Normal [facility] Comment on above: Performed By: #### T SH, BNP, CMP, LIPID, T7 #### [facility] [address] [place] [address] [address] Logan Payne MONOM# 1.85 103/ul Critically high 0.30-0.80 [facility] Comment on above: Performed By: #### T SH, BNP, CMP, LIPID, T7 #### [facility] [address] [place] [address] [address] Logan Payne MONOM% 14.0 % Critically high 1.7-12.0 [facility] Comment on above: Performed By: #### T SH, BNP, CMP, LIPID, T7 #### [facility] [address] [place] [address] [address] Logan Payne MPV 9.3 fL Critically low 9.5-13.5 [facility] Comment on above: Performed By: #### T SH, BNP, CMP, LIPID, T7 #### [facility] [address] [place] [address] [address] Logan Payne MYELOCYTE # Normal [facility] Comment on above: Performed By: #### T SH, BNP, CMP, LIPID, T7 #### [facility] [address] [place] [address] [address] Logan Payne MYELOCYTE % Normal [facility] Comment on above: Performed By: #### T SH, BNP, CMP, LIPID, T7 #### [facility] [address] [place] [address] [address] Logan Payne NRBC Normal [facility] Comment on above: Performed By: #### T SH, BNP, CMP, LIPID, T7 #### [facility] [address] [place] [address] [address] Logan Payne PLT 219 103/ul Normal 150-450 [facility] Comment on above: Performed By: #### T SH, BNP, CMP, LIPID, T7 #### [facility] [address] [place] [address] Dr. Logan Payne RBC 3.96 106/ul Critically low 4.20-5.40 [facility] Comment on above: Performed By: #### T SH, BNP, CMP, LIPID, T7 #### [facility] [address] [place] [address] Dr. Logan Payne RDW 13.2 % Normal 11.0-15.0 [facility] Comment on above: Performed By: #### T SH, BNP, CMP, LIPID, T7 #### [facility] [address] [place] [address] Dr. Logan Payne SEG # 7.92 103/ul Critically high 1.40-6.50 [facility] Comment on above: Performed By: #### T SH, BNP, CMP, LIPID, T7 #### [facility] [address] [place] [address] Dr. Logan Payne SEG % 60.0 % Normal 43.0-75.0 [facility] Comment on above: Performed By: #### T SH, BNP, CMP, LIPID, T7 #### [facility] [address] [place] [address] Dr. Logan Panye WBC 13.2 103/ul Critically high 4.0-11.0 [facility] Comment on above: Performed By: #### T SH, BNP, CMP, LIPID, T7 #### [facility] [address] [place] [address] Dr. Logan Payne CULTURE BLOODon 06-09-2022 Microscopic examination of blood, culture Culture Observations: NO GROWTH AT 5 DAYS. Isolate 1 BC_BA_NA Normal [facility] Comment on above: Performed By: #### T SH, BNP, CMP, LIPID, T7 #### [facility] [address] [place] [address] Dr. Logan Payne Microscopic examination of blood, culture Culture Observations: NO GROWTH AT 5 DAYS. Isolate 1 BC_BA_NA Normal [facility] Comment on above: Performed By: #### T SH, BNP, CMP, LIPID, T7 #### [facility] [address] [address] [address] Logan Payne Complete Blood Count Auto Di ffon 06-09-2022 Basophils (Bld) [#/Vol] 0.1 10*3/uL Normal 0.0-0.2 [facility] Comment on above: Result Comment: PERF ORMED BY: [place] [address] PATHOLOGIST MACHINE PAINT MIXER PILAR VILLARREAL M.D. Performed By: #### L IPID, [facility] WT eA #### [facility] [address] [place] [address] [place] Basophils/100 WBC (Bld) 0.4 % Normal . [facility] Comment on above: Performed By: #### L IPID, [facility] WT eA #### [facility] [address] [place] [address] [place] Eosinophils (Bld) [#/Vol] 0.1 10*3/uL Normal 0.0-0.45 [facility] Comment on above: Performed By: #### L IPID, A1C WT eA #### [facility] [address] [place] [address] [place] Eosinophils/100 WBC (Bld) 0.5 % Normal . [facility] Comment on above: Performed By: #### L IPID, [facility] WT eA #### [facility] [address] [place] [address] [place] Erythrocyte distribution width (RBC) [Ratio] 13.8 % Normal 11.9-15.3 [facility] Comment on above: Performed By: #### L IPID, [facility] WT eA #### [facility] [address] [place] [address] [place] Hematocrit (Bld) [Volume fraction] 41.0 % Normal 34.0-46.4 [facility] Comment on above: Performed By: #### L IPID, [facility] WT eA #### [facility] [address] [place] [address] [place] Hemoglobin (Bld) [Mass/Vol] 13.6 g/dL Normal 11.8-15.4 [facility] Comment on above: Performed By: #### L IPID, A1C WTH eA #### [facility] [address] [place] [address] [place] Lymphocytes (Bld) [#/Vol] 2.3 10*3/uL Normal 1.00-4.8 [facility] Comment on above: Performed By: #### L IPID, A1C WTH eA #### [facility] [address] [place] [address] [place] Lymphocytes/100 WBC (Bld) 17.2 % Normal . [facility] Comment on above: Performed By: #### L IPID, A1C WTH eA #### [facility] [address] [place] [address] MCH (RBC) [Entitic mass] 34.4 pg High 24.7-34.3 [facility] Comment on above: Performed By: #### L IPID, A1C WTH eA #### [facility] [address] [place] [address] MCV (RBC) [Entitic vol] 103.6 fL High 80-100 [facility] Comment on above: Performed By: #### L IPID, A1C WTH eA #### [facility] [address] [place] [address] Mean Corpuscular HGB Conc 33.2 g/dL Normal 32.0-35.0 [facility] Comment on above: Performed By: #### L IPID, A1C WTH eA #### [facility] [address] [place] [address] [place] Monocytes (Bld) [#/Vol] 1.3 10*3/uL High 0.0-0.8 [facility] Comment on above: Performed By: #### L IPID, A1C WTH eA #### [facility] [address] [place] [address] [place] Monocytes/100 WBC (Bld) 10.1 % Normal . [facility] Comment on above: Performed By: #### L IPID, A1C WTH eA #### [facility] [address] [place] [address] [place] Neutrophils (Bld) [#/Vol] 9.5 10*3/uL High 1.8-7.7 [facility] Comment on above: Performed By: #### L IPID, [address] eA #### [place] [address] [place] Neutrophils/100 WBC (Bld) 71.8 % Normal . [facility] Comment on above: Performed By: #### L IPID, [address] eA #### [address] NRBC% 0.0 /100{WBC} Normal 0-0.5 [facility] Comment on above: Performed By: #### L IPID, [address] eA #### [address] Platelet mean volume (Bld) [Entitic vol] 8.1 fL Normal 6.3-10.7 [facility] Comment on above: Performed By: #### L IPID, [address] eA #### [address] Platelets (Bld) [#/Vol] 199 10*3/uL Normal 150-450 [facility] Comment on above: Performed By: #### L IPID, [address] eA #### [address] RBC (Bld) [#/Vol] 3.96 10*6/uL Normal 3.60-5.00 [facility] Comment on above: Performed By: #### L IPID, [address] eA #### [place] [address] [place] WBC (Bld) [#/Vol] 13.2 10*3/uL High 3.8-11.6 [facility] Comment on above: Performed By: #### L IPID, [address] eA #### [address] Covid-19 PCR (CVDTB)on 05-15 SARS-CoV-2 (COVID-19) RNA CAROL+probe Ql (Unsp spec) Not detected Normal NOT DETECTED [facility] Comment on above: Result Comment: When [...] for this test is supported by the National Service Officer of Health and Human Service's declaration that [...] T SH, BNP, CMP, LIPID, T7 #### [facility] [address] [place] [address] Dr. Logan Payne ECG 12 lead ECGon 06-09-2022 ECG 12 lead ECG [facility] Main [place] [address] [place] [address] Electrocardiograph Report Signed Patient: Abdirahman Gomez MR#: [id number] : 1940 Acct:[id number] Age/Sex: 81 / F ADM Date: 06/09/22 Loc: Room: [address] [place] [address] Type: DIS IN Attending Dr: Frida De [...] By Yoav Prado MD 1 08/10/21 1709 [facility] echo transthoracicon [facility] echo transthoracic [facility] Main [place] [address] [place] [address] Echocardiogram Signed Patient: Abdirahman Gomez MR#: [id number] : 1940 Acct:[id number] Age/Sex: 81 / F ADM Date: 06/09/22 Loc: Room: [address] [place] [address] Type: DIS IN Attending Dr: Frida De La Cruz MD Ordering Provider: Marta Juarez DO, RES Date of Service: 06/09/22 [facility] echo transthoracic: elevated trop, afib Copies to: [...] cm Transcribed By: SCV Performed At: 06/09/22 0124 Signed By: Yoav Prado MD 06/09/22 8295 [facility] Folate [Mass/volume] in Seru m or PlasmaOrdered By: Nathaniel Castillo on 06-09-2022 Folate [Mass/Vol] ng/mL >5.9 [facility] Comment on above: Folate reference ran ge: >5.9 ng/mlThe WHO technical consultation on folate and vitamin [id number] has determined that folate concentrations lessthan 4 ng/ml are considered deficient. LACTATE/LACTIC ACIDon 2021 Lactate [Moles/Vol] 1.1 mmol/L Normal 0.4-1.9 [facility] Comment on above: Performed By: #### T SH, BNP, CMP, LIPID, T7 #### [facility] [address] [address] [address] Logan Payne Lactate [Moles/Vol] 1.8 mmol/L Normal 0.4-1.9 [facility] Comment on above: Performed By: #### T SH, BNP, CMP, LIPID, T7 #### [facility] [address] [address] [address] Logan Payne Laboratory - Chemistry and C hemistry - challengeOrdered By: Nathaniel Castillo on 06-09-2022 Cobalamin (Vitamin B12) [Mass/Vol] 480 pg/mL 180-914 [facility] - Chemistry and C hemistry - challengeOrdered By: Rossi Valdez on 06-09-2022 Magnesium [Mass/Vol] 1.8 mg/dL 1.6-2.6 [facility] Magnesiumon 06-09-2022 Magnesium [Mass/Vol] 1.8 mg/dL Normal 1.6-2.6 [facility] Comment on above: Result Comment: PERF ORMED BY: [place] [address] PATHOLOGIST MACHINE PAINT MIXER PILAR VILLARREAL M.D. Performed By: #### L IPID, A1C WTH eA #### [facility] [address] OCC BLD IMMUNO SCREENon 05-15 OCCULT BLOOD Positive Abnormal NEGATIVE [facility] Comment on above: Performed By: #### T SH, BNP, CMP, LIPID, T7 #### [facility] [address] [address] [address] Logan Payne PROF 14(COMP METB)on 022 Albumin [Mass/Vol] 3.3 g/dL Critically low 3.4-5.0 Th e [facility] Comment on above: Performed By: #### C MP, HSTROPN #### [facility] [address] [address] [address] Logan Payne Albumin/Globulin [Mass ratio] 0.8 {ratio} Normal [facility] Comment on above: Performed By: #### C MP, HSTROPN #### [facility] [address] [address] [address] Logan Payne ALP [Catalytic activity/Vol] 95 U/L Normal 46-116 [facility] Comment on above: Performed By: #### C MP, HSTROPN #### [facility] [address] [address] [address] Logan Payne ALT [Catalytic activity/Vol] 36 U/L Normal 14-59 [facility] Comment on above: Performed By: #### C MP, HSTROPN #### [facility] [address] [place] [address] Dr. Logan Payne Anion gap [Moles/Vol] 14.7 mmol/L Normal [facility] Comment on above: Performed By: #### C MP, HSTROPN #### [facility] [address] [address] [address] Logan Payne AST [Catalytic activity/Vol] 75 U/L Critically high 15-37 [facility] Comment on above: Performed By: #### C MP, HSTROPN #### [facility] [address] [address] [address] Logan Payne Bilirubin [Mass/Vol] 0.4 mg/dL Normal 0.2-1.0 [facility] Comment on above: Performed By: #### C MP, HSTROPN #### [facility] [address] [address] [address] Logan Payne Calcium [Mass/Vol] 8.7 mg/dL Normal 8.5-10.1 [facility] Comment on above: Performed By: #### C MP, HSTROPN #### [facility] [address] [address] [address] Logan Payne Chloride [Moles/Vol] 103 mmol/L Normal 98-107 [facility] Comment on above: Performed By: #### C MP, HSTROPN #### [facility] [address] [address] [address] Logan Payne CO2 [Moles/Vol] 21.3 mmol/L Normal 21.0-32.0 [facility] Comment on above: Performed By: #### C MP, HSTROPN #### [facility] [address] [address] [address] Logan Payne Creatinine [Mass/Vol] 0.83 mg/dL Normal 0.55-1.02 [facility] Comment on above: Performed By: #### C MP, HSTROPN #### [facility] [address] [address] [address] Logan Payne EGFR-AF CYPRIOT >60 Normal >=60 [facility] Comment on above: Performed By: #### C MP, HSTROPN #### [facility] [address] [address] [address] Logan Payne EGFR-NON AF CYPRIOT >60 Normal >=60 [facility] Comment on above: Performed By: #### C MP, HSTROPN #### [facility] [address] [address] [address] Logan Payne Globulin (S) [Mass/Vol] 4.1 g/dL Normal [facility] Comment on above: Performed By: #### C MP, HSTROPN #### [facility] [address] [address] [address] Logan Payne Glucose [Mass/Vol] 141 mg/dL Critically high 74-106 [facility] Comment on above: Performed By: #### C MP, HSTROPN #### [facility] [address] [address] [address] Logan Payne Potassium [Moles/Vol] 4.0 mmol/L Normal 3.5-5.1 [facility] Comment on above: Performed By: #### C MP, HSTROPN #### [facility] [address] [address] [address] Logan Payne Protein [Mass/Vol] 7.4 g/dL Normal 6.4-8.[address] [facility] Comment on above: Performed By: #### C MP, HSTROPN #### [facility] [address] [place] [address] Dr. Logan Payne Sodium [Moles/Vol] 135 mmol/L Critically low 136-145 Th e [facility] Comment on above: Performed By: #### C MP, HSTROPN #### [facility] [address] [place] [address] Dr. Logan Payne Urea nitrogen [Mass/Vol] 16.0 mg/dL Normal 7.0-18.0 [facility] Comment on above: Performed By: #### C MP, HSTROPN #### [facility] [address] [place] [address] Dr. Logan Payne Urea nitrogen/Creatinine [Mass ratio] 19.3 mg/mg Normal [facility] Comment on above: Performed By: #### C MP, HSTROPN #### [facility] [address] [place] [address] Dr. Logan Payne PROTIMEon 06-09-2022 INR Coag (PPP) [Relative time] 0.98 {INR} Normal [facility] Comment on above: Performed By: #### T SH, BNP, CMP, LIPID, T7 #### [facility] [address] [place] [address] Dr. Logan Payne INR GUIDELINES SEE BELOW Normal [facility] Comment on above: Result Comment: FERCHO RED INR: 2.0 - 3.0 CONDITIONS NOT LISTED BELOW 2.5 - 3.5 FOR PROSTHETIC HEART VALVE REPLACEMENT 2.5 - 3.5 RECURRENT THROMBOSIS Performed By: #### T SH, BNP, CMP, LIPID, T7 #### [facility] [address] [place] [address] Dr. Logan Payne PT Coag (PPP) [Time] 10.6 s Normal 9.0-11.6 [facility] Comment on above: Performed By: #### T SH, BNP, CMP, LIPID, T7 #### [facility] [address] [place] [address] Dr. Logan Payne PTTon 06-09-2022 aPTT Coag (Bld) [Time] 30.0 s Normal 22.3-36.2 Th e [facility] Comment on above: Performed By: #### T SH, BNP, CMP, LIPID, T7 #### [facility] [address] [place], [place] [address] Dr. Logan Payne TROPONIN, HIGH SENSITIVITYon 06-09-2022 HSTROP 8564.4 pg/mL Critically high 4.0-51.3 The [facility] Comment on above: Result Comment: CUT- OFF POINTS HAVE BEEN ESTABLISHED BASED ON THE FOURTH UNIVERSAL DEFINITIONS OF MYOCARDIAL INFARCTION. THE UPPER REFERENCE LIMIT (URL) OF TROPONIN, DEFINED THE 99TH PERCENTILE OF cTnI DISTRIBUTION IN A REFERENCE POPULATION, HAS BEEN CONFIRMED THE DECISION THRESHOLD FOR AL DIAGNOSIS. Performed By: #### T SH, BNP, CMP, LIPID, T7 #### [facility] [address] [place], [place] [address] Dr. Logan Payne HSTROP 9385.6 pg/mL Critically high 4.0-51.3 [facility] Comment on above: Result Comment: CUT- OFF POINTS HAVE BEEN ESTABLISHED BASED ON THE FOURTH UNIVERSAL DEFINITIONS OF MYOCARDIAL INFARCTION. THE UPPER REFERENCE LIMIT (URL) OF TROPONIN, DEFINED THE 99TH PERCENTILE OF cTnI DISTRIBUTION IN A REFERENCE POPULATION, HAS BEEN CONFIRMED THE DECISION THRESHOLD FOR AL DIAGNOSIS. Performed By: #### C MP, HSTROPN #### [facility] [address] [place], [place] [address] Dr. Logan Payne TYPE AND SCREENon 06-09-2022 TYPE AND SCREEN Negative Normal [facility] Comment on above: Performed By: #### T SH, BNP, CMP, LIPID, T7 #### [facility] [address] [place], [place] [address] Dr. Logan Payne Troponin I High Sensitivityo n 06-09-2022 Troponin I High Sensitivity 6364 pg/mL Off scale high 0-15 [facility] Comment on above: Result Comment: Resu lts called at 1303 on 06/09/22 PERFORMED BY: [facility] [address] [place] [address] PATHOLOGIST MACHINE PAINT MIXER PILAR VILLARREAL M.D. Performed By: #### L IPID, [address] eA #### [facility] [address] [id number] [place] Troponin I High Sensitivity 6431 pg/mL Off scale high 0-15 [facility] Comment on above: Result Comment: Resu lts called at 1006 on 06/09/22 PERFORMED BY: [facility] [address] [facility] [address] PATHOLOGIST MACHINE PAINT MIXER PILAR VILLARREAL M.D. Performed By: #### L IPID, [address] eA #### [facility] [address] [id number] [facility] Troponin I High Sensitivity 6373 pg/mL Off scale high 0-15 [facility] Comment on above: Result Comment: Resu lts called at 0710 on 06/09/22 PERFORMED BY: [facility] [address] [id number] PATHOLOGIST MACHINE PAINT MIXER PILAR VILLARREAL M.D. Performed By: #### G LULS #### Point of Care testing , Vit. B12/Folate Profileon Cobalamin (Vitamin B12) [Mass/Vol] 480 pg/mL Normal 180-914 [facility] Comment on above: Order Comment: Luis man Performed By: #### G LULS #### Point of Care testing , Folate > 22.3 Normal >5.9 [facility] Comment on above: Order Comment: Luis man Result Comment: Niyah te reference range: >5.9 ng/ml The WHO technical consultation on folate and vitamin b12 deficiencies has determined that folate concentrations less than 4 ng/ml are considered deficient. PERFORMED BY: [facility] [address] [facility] [id number] PATHOLOGIST MACHINE PA[employer] MIXER PILAR VILLARREAL M.D. Performed By: #### G LULS #### Point of Care testing , BASIC METABOLIC PANELon 11-12 Calcium [Mass/Vol] 9.1 mg/dL Normal 8.6-10.3 The [facility] Comment on above: Order Comment: No: D o not add to previous draw Performed By: #### 0 0071, [id number] #### [facility] [address] [place] [address], [place] Chloride [Moles/Vol] 104 mmol/L Normal 98-107 [facility] Comment on above: Order Comment: No: D o not add to previous draw Performed By: #### 0 0071, 28400 #### [facility] [address] [place] [address], [place] CO2 [Moles/Vol] 22 mmol/L Normal 21-31 [facility] Comment on above: Order Comment: No: D o not add to previous draw Performed By: #### 0 0071, 63786 #### [facility] [address] [place] [address], [place] Creatinine [Mass/Vol] 0.80 mg/dL Normal 0.60-1.20 [facility] Comment on above: Order Comment: No: D o not add to previous draw Performed By: #### 0 0071, [id number] #### [facility] [address] [place] [address], [place] GFR/1.73 sq M.predicted among blacks MDRD (S/P/Bld) [Vol rate/Area] mL/min/{1.73_m2} Normal >60 [facility] Comment on above: Order Comment: No: D o not add to previous draw Result Comment: Calc ulation may not be valid for patients over 70 years Performed By: #### 0 0071, 19006 #### [facility] [address] [place] [address], [place] GFR/1.73 sq M.predicted among non-blacks MDRD (S/P/Bld) [Vol rate/Area] mL/min/{1.73_m2} Normal >60 [facility] Comment on above: Order Comment: No: D o not add to previous draw Result Comment: Calc ulation may not be valid for patients over 70 years Performed By: #### 0 0071, 57291 #### [facility] [address] [place] [address], [place] Glucose [Mass/Vol] 99 mg/dL Normal 70-100 [facility] Comment on above: Order Comment: No: D o not add to previous draw Performed By: #### 0 0071, 08420 #### [facility] [address] [place] [address], [place] Potassium [Moles/Vol] 4.2 mmol/L Normal 3.5-5.1 [facility] Comment on above: Order Comment: No: D o not add to previous draw Performed By: #### 0 70, 90106 #### [facility] [address] [place] [address], [place] Sodium [Moles/Vol] 137 mmol/L Normal 136-145 [facility] Comment on above: Order Comment: No: D o not add to previous draw Performed By: #### 0 70, [id number] #### [facility] [address] [place] [address], [place] Urea nitrogen [Mass/Vol] 11 mg/dL Normal 7-25 [facility] Comment on above: Order Comment: No: D o not add to previous draw Performed By: #### 0 70, [id number] #### [facility] [address] [place] [address], [place] CBC COMPLETE BLOOD COUNTon 0 - Erythrocyte distribution width (RBC) [Ratio] 12.9 % Normal 11.5-15.0 [facility] Comment on above: Order Comment: No: D o not add to previous draw Performed By: #### 3 2043 #### [facility] [address] [place] [address], [place] Hematocrit (Bld) [Volume fraction] 42.7 % Normal 36.0-45.0 [facility] Comment on above: Order Comment: No: D o not add to previous draw Performed By: #### 3 2043 #### [facility] [address] [place] [address], [facility] Hemoglobin (Bld) [Mass/Vol] 14.3 g/dL Normal 12.0-15.0 [facility] Comment on above: Order Comment: No: D o not add to previous draw Performed By: #### 3 2043 #### [facility] [address] [place] [address], [facility] MCH (RBC) [Entitic mass] 33.9 pg High 27.0-33.0 [facility] Comment on above: Order Comment: No: D o not add to previous draw Performed By: #### 3 2043 #### [facility] [address] [facility]. [address] MCHC (RBC) [Mass/Vol] 33.5 g/dL Normal 32.0-35.0 [facility] Comment on above: Order Comment: No: D o not add to previous draw Performed By: #### 3 2043 #### [facility] [address] [facility] [place] [address], [facility] MCV (RBC) [Entitic vol] 101.2 fL High 82.0-98.0 T [facility] Comment on above: Order Comment: No: D o not add to previous draw Performed By: #### 3 2043 #### [facility] [address] [facility] [place] [address], [facility] Nucleated RBC/100 WBC (Bld) [Ratio] 0 % Normal 0-0 [facility] Comment on above: Order Comment: No: D o not add to previous draw Performed By: #### 3 2043 #### [facility] [address] [facility] [place] [address], [facility] PLAT CNT 211 10*3/uL Normal 150-400 [facility] Comment on above: Order Comment: No: D o not add to previous draw Performed By: #### 3 2043 #### [facility] [address] [place] [address], [facility] RBC (Bld) [#/Vol] 4.22 10*6/uL Normal 3.80-5.00 [facility] Comment on above: Order Comment: No: D o not add to previous draw Performed By: #### 3 2043 #### [facility] [address] [place] [address], [facility] WBC (Bld) [#/Vol] 11.25 10*3/uL High 4.00-10.60 [facility] Comment on above: Order Comment: No: D o not add to previous draw Performed By: #### 3 2043 #### [facility] [address] [place] [address], [facility] HEMOGLOBIN A1Con 11-25-2021 Glucose [Moles/Vol] 128 mmol/L Normal [facility] Comment on above: Order Comment: If no t done in EDNo: Do not add to previous draw Performed By: #### 3 2043 #### [facility] [address] [place] [address], [facility] HbA1c (Bld) [Mass fraction] 6.1 % High 4.0-6.0 [facility] Comment on above: Order Comment: If no t done in EDNo: Do not add to previous draw Performed By: #### 3 2043 #### [facility] [address] [place] [address], [facility] MAGNESIUM BLOODon 11-25-2021 Magnesium [Mass/Vol] 1.8 mg/dL Low 1.9-2.7 [facility] Comment on above: Order Comment: No: D o not add to previous draw Performed By: #### 0 0071, 86950 #### [facility] [address] [place] [address], [facility] PORTABLE CHEST 1 VIEWon 11-12 PORTABLE CHEST 1 VIEW [facility] Department of Radiology [address] [place] [id number] Patient Name: ABDIRAHMAN GOMEZ : 1940 Sex: F Age: Race: White Pt. Location: [id number] Patient Status: I Ordered Date: 11/25/2021 10:05:00 [...] edema. Electronically signed: Melania Lay. Transcribed by: [email or web address], User Resident: Electronically Signed by: MELANIA LAY @ 11/25/2021 10:44 AM Normal [facility] Comment on above: Order Comment: Pneum othorax Cardiovascular Lab Reporton 11-24-2021 Cardiovascular Lab Report [facility] Patient Name: Abdirahman Gomez [facility] MR #: [id number] Physician: Sarabjit Vicente MD Department of Service Date: 11/24/2021 Medicine Birthdate: 1940 Division of Room #: [id number] Cardiology Adult Cardiovascular Services [facility] [address] [place] [id number] Cardiovascular Laboratory Report PACEMAKER IMPLANT PROCEDURE NOTE DATE OF PROCEDURE: 11/24/2021 PERFORMING PHYSICIAN: Dr. Sarabjit Vicente CONSENT: Patient LOCATION: EP Lab PROCEDURE PERFORMED: 1. Implantation of pacemaker ([employer]). 2. 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 She had syncope from this and subsequently was transferred here. Since the admission to [facility], she had a fairly recently good sinus [...] using modified seldinger technique using a 5 [place] micro-puncture needle on two occasions and 0.35 [...] pocket was created for the device. 6 [place] Safesheaths were placed over the wire. An active fixation [employer] pacing lead was then delivered through the 6Fsheath to the right ventricle. After confirmation of lead position on orthogonal views ([place] and [place]) to confirm septal position, the screw was activated, and the lead was placed in the right ventricular mid cavity towards the septum. After confirmation of good sensing parameters, injury pattern and pacing thresholds, 10V pacing was done and no diaphragmatic stimulation was noted. It was then secured in the pocket using three 1-0 Silk sutures. Then an active fixation [employer] lead was delivered through the 6Fsheath to the right atrial appendage. After confirmation of lead position on orthogonal views ([place] and [place]), the screw was activated. After confirmation of [...] immediate procedural complications were noted. Device info: [employer] Accolade MRI Model# L311 Serial# [id number] RA lead: Model# INGEVITY 7840 (45cms) Serial# [id number] SensinmV Threshold: 0.8V@0.4ms Impedance: 590 Ohms RV lead: Model# INGEVITY 7841 (52cms) Serial# [id number] Sensin.5mV Threshold: 0.4V@0.4ms Impedance: 1125 Ohms POST PROCEDURE EXAM: Patient was hemodynamically stable. COMPLICATIONS: None. ESTIMATED BLOOD LOSS: 15cc IMPRESSION: 1. Successful dual chamber pacemaker with excellent pacing and sensing parameters. RECOMMENDATIONS: 1 Occlusive dressing to be removed after 2 weeks. 2. Do not wet the incision for 7 days. 3. No lifti (more content not included)... Normal [facility] APTTon 11-23-2021 aPTT Coag (Bld) [Time] 30.9 s Normal 25.0-35.0 Th e [facility] Comment on above: Order Comment: No: D [...] PURPOSE. Performed By: #### 3 2044 #### [facility] [address] [place] [address], [facility] BASIC METABOLIC PANELon 11-12 Calcium [Mass/Vol] 9.5 mg/dL Normal 8.6-10.3 [facility] Comment on above: Order Comment: No: D o not add to previous draw Performed By: #### 1 69, [id number] #### [facility] [address] [place] [address], [facility] Chloride [Moles/Vol] 104 mmol/L Normal 98-107 [facility] Comment on above: Order Comment: No: D o not add to previous draw Performed By: #### 1 69, 57246 #### [facility] [address] [facility] [place] [address], [facility] CO2 [Moles/Vol] 21 mmol/L Normal 21-31 [facility] Comment on above: Order Comment: No: D o not add to previous draw Performed By: #### 1 69, 92407 #### [facility] [address] [facility] [place] [id number], [facility] Creatinine [Mass/Vol] 0.80 mg/dL Normal 0.60-1.20 [facility] Comment on above: Order Comment: No: D o not add to previous draw Performed By: #### 1 69, 74882 #### [facility] [address] [place] [address], [place] GFR/1.73 sq M.predicted among blacks MDRD (S/P/Bld) [Vol rate/Area] mL/min/{1.73_m2} Normal >60 [facility] Comment on above: Order Comment: No: D o not add to previous draw Result Comment: Calc ulation may not be valid for patients over 70 years Performed By: #### 1 69, 69158 #### [facility] [address] [place] [address], [place] GFR/1.73 sq M.predicted among non-blacks MDRD (S/P/Bld) [Vol rate/Area] mL/min/{1.73_m2} Normal >60 [facility] Comment on above: Order Comment: No: D o not add to previous draw Result Comment: Calc ulation may not be valid for patients over 70 years Performed By: #### 1 69, 53617 #### [facility] [address] [place] [address], [place] Glucose [Mass/Vol] 109 mg/dL High 70-100 [facility] Comment on above: Order Comment: No: D o not add to previous draw Performed By: #### 1 69, 19370 #### [facility] [address] [place] [address], [place] Potassium [Moles/Vol] 3.9 mmol/L Normal 3.5-5.1 [facility] Comment on above: Order Comment: No: D o not add to previous draw Performed By: #### 1 0, 52048 #### [facility] [address] [place] [address], [place] Sodium [Moles/Vol] 138 mmol/L Normal 136-145 [facility] Comment on above: Order Comment: No: D o not add to previous draw Performed By: #### 1 69, 36223 #### [facility] [address] [place] [address], [place] Urea nitrogen [Mass/Vol] 15 mg/dL Normal 7-25 [facility] Comment on above: Order Comment: No: D o not add to previous draw Performed By: #### 1 0070, 15057 #### [facility] [address] [place] [id number], [facility] CBC COMPLETE BLOOD COUNTon 11-23-2021 Erythrocyte distribution width (RBC) [Ratio] 12.8 % Normal 11.5-15.0 [facility] Comment on above: Order Comment: No: D o not add to previous draw Performed By: #### 3 2043 #### [facility] [address] [place] [id number], [facility] Hematocrit (Bld) [Volume fraction] 41.9 % Normal 36.0-45.0 [facility] Comment on above: Order Comment: No: D o not add to previous draw Performed By: #### 3 2043 #### [facility] [address] [place] [id number], [facility] Hemoglobin (Bld) [Mass/Vol] 14.1 g/dL Normal 12.0-15.0 [facility] Comment on above: Order Comment: No: D o not add to previous draw Performed By: #### 3 2043 #### [facility] [address] [place] [address], [facility] MCH (RBC) [Entitic mass] 34.0 pg High 27.0-33.0 [facility] Comment on above: Order Comment: No: D o not add to previous draw Performed By: #### 3 2043 #### [facility] [address] [place] [address], [facility] MCHC (RBC) [Mass/Vol] 33.7 g/dL Normal 32.0-35.0 [facility] Comment on above: Order Comment: No: D o not add to previous draw Performed By: #### 3 2043 #### [facility] [address] [place] [address], [facility] MCV (RBC) [Entitic vol] 101.0 fL High 82.0-98.0 T he [facility] Comment on above: Order Comment: No: D o not add to previous draw Performed By: #### 3 2043 #### [facility] [address] [place] [address], [facility] Nucleated RBC/100 WBC (Bld) [Ratio] 0 % Normal 0-0 [facility] Comment on above: Order Comment: No: D o not add to previous draw Performed By: #### 3 2043 #### [facility] [address] [facility] [place] [address], [facility] PLAT CNT 218 10*3/uL Normal 150-400 [facility] Comment on above: Order Comment: No: D o not add to previous draw Performed By: #### 3 2043 #### [facility] [address] [facility] [place] [address], [facility] RBC (Bld) [#/Vol] 4.15 10*6/uL Normal 3.80-5.00 [facility] Comment on above: Order Comment: No: D o not add to previous draw Performed By: #### 3 2043 #### [facility] [address] [facility] [place] [address], [facility] WBC (Bld) [#/Vol] 9.49 10*3/uL Normal 4.00-10.60 [facility] Comment on above: Order Comment: No: D o not add to previous draw Performed By: #### 3 2043 #### [facility] [address] [facility] [place] [address], [facility] MAGNESIUM BLOODon 11-23-2021 Magnesium [Mass/Vol] 2.0 mg/dL Normal 1.9-2.7 [facility] Comment on above: Order Comment: No: D o not add to previous draw Performed By: #### 1 0070, 28612 #### [facility] [address] POC SARS COV2 ANTIGEN NEGATI VEon 11-23-2021 POC SARS COV2 ANTIGEN NEG Negative Normal NEGATIVE [facility] Comment on above: Result Comment: Nega tive [...] antigen from SARS-CoV-2 in direct nasopharyngeal swab (DECORATOR HAND) specimens from individuals who are suspected of [...] Accreditation. Performed By: #### 3 2044 #### [facility] [address] PROTHROMBIN TIMEon INR Coag (PPP) [Relative time] 1.03 {INR} Normal 0.91-1.16 [facility] Comment on above: Order Comment: No: D [...] RANGE. CHEST 1995;108:[id number]. Performed By: #### 3 2043 #### [facility] [address] [place] [address], [facility] PT Coag (PPP) [Time] 13.5 s Normal 12.3-14.8 [facility] Comment on above: Order Comment: No: D o not add to previous draw Result Comment: ALL RESULTS MUST BE INTERPRETED WITH RESPECT TO BLOOD DRAWING ARTIFACT OR DILUTION ERROR OF ANTICOAGULANT AT THE TIME OF SAMPLING. Performed By: #### 3 2043 #### [facility] [address] BASIC METABOLIC PANELon 06- Calcium [Mass/Vol] 9.5 mg/dL Normal 8.6-10.3 [facility] Comment on above: Order Comment: No: D o not add to previous draw Performed By: #### 1 0070, 17313, 69533 #### [facility] [address] [facility] [place] [id number], [facility] Chloride [Moles/Vol] 104 mmol/L Normal 98-107 [facility] Comment on above: Order Comment: No: D o not add to previous draw Performed By: #### 1 0070, 36589, 58126 #### [facility] [address] [facility] [address], [facility] CO2 [Moles/Vol] 21 mmol/L Normal 21-31 [facility] Comment on above: Order Comment: No: D o not add to previous draw Performed By: #### 1 0070, 22753, 20524 #### [facility] [address] [place] [address], [facility] Creatinine [Mass/Vol] 0.98 mg/dL Normal 0.60-1.20 [facility] Comment on above: Order Comment: No: D o not add to previous draw Performed By: #### 1 0, 58729, 92508 #### [facility] [address] [place] [address], [facility] eGFR- non- 54 ml/min/1.73sq m Abnormal >60 [facility] Comment on above: Order Comment: No: D o not add to previous draw Result Comment: Calc ulation may not be valid for patients over 70 years Performed By: #### 1 0, 66201, 95693 #### [facility] [address] [place] [address], [facility] GFR/1.73 sq M.predicted among blacks MDRD (S/P/Bld) [Vol rate/Area] mL/min/{1.73_m2} Normal >60 [facility] Comment on above: Order Comment: No: D o not add to previous draw Result Comment: Calc ulation may not be valid for patients over 70 years Performed By: #### 1 0, 93019, 24224 #### [facility] [address] [place] [address], [place] Glucose [Mass/Vol] 110 mg/dL High 70-100 [facility] Comment on above: Order Comment: No: D o not add to previous draw Performed By: #### 1 0, 53586, 27290 #### [facility] [address] [place] [address], [place] Potassium [Moles/Vol] 4.9 mmol/L Normal 3.5-5.1 [facility] Comment on above: Order Comment: No: D o not add to previous draw Performed By: #### 1 0, , 20536 #### [facility] [address] Sodium [Moles/Vol] 137 mmol/L Normal 136-145 [facility] Comment on above: Order Comment: No: D o not add to previous draw Performed By: #### 1 0070, 63556, 38043 #### [facility] [address] Urea nitrogen [Mass/Vol] 18 mg/dL Normal 7-25 [facility] Comment on above: Order Comment: No: D o not add to previous draw Performed By: #### 1 0070, 95313, 14431 #### [facility] [address] CBC W/DIFFon 11-22-2021 ABS IMM GRANS 0.1 10*3/uL Normal 0.0-0.2 [facility] Comment on above: Performed By: #### 3 2043 #### [facility] [address] ABS NEUTROPHILS 6.8 10*3/uL Normal 1.6-7.6 [facility] Comment on above: Performed By: #### 3 2043 #### [facility] [address] Basophils (Bld) [#/Vol] 0.1 10*3/uL Normal 0.0-0.2 [facility] Comment on above: Performed By: #### 3 2043 #### [facility] [address] Basophils/100 WBC (Bld) 0.8 % Normal 0.0-1.0 T he [facility] Comment on above: Performed By: #### 3 2043 #### [facility] [address] [place] [address], [facility] Eosinophils (Bld) [#/Vol] 0.4 10*3/uL Normal 0.0-0.5 [facility] Comment on above: Performed By: #### 3 2043 #### [facility] [address] [place] [address], [facility] Eosinophils/100 WBC (Bld) 3.6 % Normal 0.0-6.0 [facility] Comment on above: Performed By: #### 3 2043 #### [facility] [address] [place] [address], [facility] Erythrocyte distribution width (RBC) [Ratio] 12.6 % Normal 11.5-15.0 [facility] Comment on above: Performed By: #### 3 2043 #### [facility] [address] [facility] [place] [address], [facility] Hematocrit (Bld) [Volume fraction] 42.3 % Normal 36.0-45.0 [facility] Comment on above: Performed By: #### 3 2043 #### [facility] [address] [facility] [place] [address], [facility] Hemoglobin (Bld) [Mass/Vol] 14.9 g/dL Normal 12.0-15.0 [facility] Comment on above: Performed By: #### 3 2043 #### [facility] [address] [facility] [place] [address], [facility] IMMATURE GRANS 0.5 % Normal 0.0-1.0 [facility] Comment on above: Performed By: #### 3 2043 #### [facility] [address] [facility] [place] [address], [facility] Lymphocytes (Bld) [#/Vol] 2.3 10*3/uL Normal 1.2-4.0 [facility] Comment on above: Performed By: #### 3 2043 #### [facility] [address] [place] [id number], [facility] Lymphocytes/100 WBC (Bld) 21.8 % Normal 20.0-45.0 [facility] Comment on above: Performed By: #### 3 2043 #### [facility] [address] [facility] [place] [address], [facility] MCH (RBC) [Entitic mass] 34.3 pg High 27.0-33.0 [facility] Comment on above: Performed By: #### 3 2043 #### [facility] [address] [facility] [place] [address], [facility] MCHC (RBC) [Mass/Vol] 35.2 g/dL High 32.0-35.0 [facility] Comment on above: Performed By: #### 3 2043 #### [facility] [address] MCV (RBC) [Entitic vol] 97.2 fL Normal 82.0-98.0 T he [facility] Comment on above: Performed By: #### 3 2043 #### [facility] [address] Monocytes (Bld) [#/Vol] 0.8 10*3/uL Normal 0.1-1.0 [facility] Comment on above: Performed By: #### 3 2043 #### [facility] [address] MONOS 7.8 % Normal 5.0-12.0 [facility] Comment on above: Performed By: #### 3 2043 #### [facility] [address] Neutrophils/100 WBC (Bld) 65.5 % Normal 40.0-72.0 [facility] Comment on above: Performed By: #### 3 2043 #### [facility] [address] Nucleated RBC/100 WBC (Bld) [Ratio] 0 % Normal 0-0 [facility] Comment on above: Performed By: #### 3 2043 #### [facility] [address] [place] [address], [facility] PLAT CNT 231 10*3/uL Normal 150-400 [facility] Comment on above: Performed By: #### 3 2043 #### [facility] [address] [place] [address], [facility] RBC (Bld) [#/Vol] 4.35 10*6/uL Normal 3.80-5.00 [facility] Comment on above: Performed By: #### 3 2043 #### [facility] [address] [facility] [address], [facility] WBC (Bld) [#/Vol] 10.35 10*3/uL Normal 4.00-10.60 [facility] Comment on above: Performed By: #### 3 2043 #### [facility] [address] [facility] [place] [address], [facility] MAGNESIUM BLOODon 11-22-2021 Magnesium [Mass/Vol] 2.1 mg/dL Normal 1.9-2.7 [facility] Comment on above: Order Comment: No: D o not add to previous draw Performed By: #### 1 0070, 50805, 36523 #### [facility] [address] [address], [facility] TROPONIN-Ion 11-22-2021 Troponin I.cardiac [Mass/Vol] 0.00 ng/mL Normal 0.00-0.04 [facility] Comment on above: Order Comment: No: D o not add to previous draw Result Comment: REFE RENCE RANGES: 0.00 - 0.04 ng/ml NORMAL 0.05 - 0.50 ng/ml INDETERMINATE > 0.50 ng/ml CONSISTENT WITH AN M.I. Performed By: #### 1 0070, 88034, 02809 #### [facility] [address] [place] [address], [facility] Troponin I.cardiac [Mass/Vol] 0.01 ng/mL Normal 0.00-0.04 [facility] Comment on above: Order Comment: No: D o not add to previous draw Result Comment: REFE RENCE RANGES: 0.00 - 0.04 ng/ml NORMAL 0.05 - 0.50 ng/ml INDETERMINATE > 0.50 ng/ml CONSISTENT WITH AN M.I. Performed By: #### 3 5200 #### [facility] [address] ECHOCARDIO M/2D COMPLETEon 0 11-05-2021 ECHOCARDIO M/2D COMPLETE Patient: ABDIRAHMAN GOMEZ Exam Date: 11/05/2021 : 1940 Gender:F Ordering : VENUS TONG Admission #: [id number] Family : DR IRISH FAUSTIN . Order #: [id number] CLICK HERE TO VIEW EXAM ECHOCARDIOGRAM REPORT [...] Lopez M.D. on 11/06/2021 at 13:18 Normal [facility] MAMM SCREEN 3D MILANA CADon 10-27-2021 MAMM SCREEN 3D MILANA CAD Patient: ABDIRAHMAN GOMEZ Exam Date: 10/27/2021 : 1940 Gender:F Ordering : DR IRISH FAUSTIN . Admission #: [id number] Family : Order #: [id number] CLICK HERE TO VIEW EXAM RADIOLOGY REPORT [...] Treatments None Family Cancers None LOCATION: The [facility] BREAST COMPOSITION: Almost entirely fatty. FINDINGS: [...] MD on 10/27/2021 at 11:44 Normal [facility] INSULINon 06-28-2021 Insulin 12.1 uIU/mL Normal 2.6-24.9 [facility] Comment on above: Performed By: #### I NSULIN #### [facility] [address] [place] [address] Dr. Logan Payne BNPon 06-27-2021 Natriuretic peptide B (Bld) [Mass/Vol] 350.0 pg/mL Normal <=1,800.0 [facility] Comment on above: Performed By: #### T SH, BNP, CMP, LIPID, T7 #### [facility] [address] [place] [address] Dr. Logan Payne CBC AUTO DIFFon 06-27-2021 BASO # 0.1 103/ul Normal 0.0-0.1 [facility] Comment on above: Performed By: #### T SH, BNP, CMP, LIPID, T7 #### [facility] [address] [place] [address] Dr. Logan Payne Basophils/100 WBC (Bld) 1.1 % Normal 0.2-2.0 [facility] Comment on above: Performed By: #### T SH, BNP, CMP, LIPID, T7 #### [facility] [address] [place] [address] Dr. Logan Payne EO # 0.3 103/ul Normal 0.0-0.7 [facility] Comment on above: Performed By: #### T SH, BNP, CMP, LIPID, T7 #### [facility] [address] [place] [address] Dr. Logan Payne Eosinophils/100 WBC (Bld) 2.8 % Normal 0.9-7.0 [facility] Comment on above: Performed By: #### T SH, BNP, CMP, LIPID, T7 #### [facility] [address] [place] [address] Dr. Logan Payne Erythrocyte distribution width (RBC) [Ratio] 12.9 % Normal 11.0-15.0 [facility] Comment on above: Performed By: #### T SH, BNP, CMP, LIPID, T7 #### [facility] [address] [place] [address] Dr. Logan Payne Hematocrit (Bld) [Volume fraction] 46.6 % Normal 36.0-48.0 [facility] Comment on above: Performed By: #### T SH, BNP, CMP, LIPID, T7 #### [facility] [address] [place] [address] Dr. Logan Payne Hemoglobin (Bld) [Mass/Vol] 15.0 g/dL Normal 12.0-16.0 [facility] Comment on above: Performed By: #### T SH, BNP, CMP, LIPID, T7 #### [facility] [address] [place] [address] Dr. Logan Payne IG # 0.05 10e3/ul Critically high 0.00-0.03 [facility] Comment on above: Performed By: #### T SH, BNP, CMP, LIPID, T7 #### [facility] [address] [place] [address] Dr. Logan Payne IG % 0.5 % Normal 0.0-0.5 [facility] Comment on above: Performed By: #### T SH, BNP, CMP, LIPID, T7 #### [facility] [address] [place] [address] Dr. Logan Payne LYMPH # 2.8 103/ul Normal 1.2-3.8 [facility] Comment on above: Performed By: #### T SH, BNP, CMP, LIPID, T7 #### [facility] [address] [place] [address] Dr. Logan Payne Lymphocytes/100 WBC (Bld) 27.4 % Normal 20.5-60.0 [facility] Comment on above: Performed By: #### T SH, BNP, CMP, LIPID, T7 #### [facility] [address] [place] [address] Dr. Logan Payne MANUAL DIFF REQ NO Normal [facility] Comment on above: Performed By: #### T SH, BNP, CMP, LIPID, T7 #### [facility] [address] [place] [address] Dr. Logan Payne MCH (RBC) [Entitic mass] 33.9 pg Normal 26.7-34.0 [facility] Comment on above: Performed By: #### T SH, BNP, CMP, LIPID, T7 #### [facility] [address] [place] [address] Dr. Logan Payne MCHC (RBC) [Mass/Vol] 32.2 g/dL Normal 29.9-35.2 [facility] Comment on above: Performed By: #### T SH, BNP, CMP, LIPID, T7 #### [facility] [address] [place] [address] Dr. Logan Payne MCV (RBC) [Entitic vol] 105.2 fL Critically high 81.0-99 .0 [facility] Comment on above: Performed By: #### T SH, BNP, CMP, LIPID, T7 #### [facility] [address] [place] [address] Dr. Logan Payne MONO # 0.7 103/ul Normal 0.3-0.8 [facility] Comment on above: Performed By: #### T SH, BNP, CMP, LIPID, T7 #### [facility] [address] [place] [address] Dr. Logan Payne Monocytes/100 WBC (Bld) 7.2 % Normal 1.7-12.0 [facility] Comment on above: Performed By: #### T SH, BNP, CMP, LIPID, T7 #### [facility] [address] [place] [address] Dr. Logan Payne NEUT # 6.3 103/ul Normal 1.4-6.5 [facility] Comment on above: Performed By: #### T SH, BNP, CMP, LIPID, T7 #### [facility] [address] [place] [address] Dr. Logan Payne Neutrophils/100 WBC (Bld) 61.0 % Normal 43.0-75.0 [facility] Comment on above: Performed By: #### T SH, BNP, CMP, LIPID, T7 #### [facility] [address] [place] [address] Dr. Logan Payne Platelet mean volume (Bld) [Entitic vol] 9.3 fL Critically low 9.5-13.5 [facility] Comment on above: Performed By: #### T SH, BNP, CMP, LIPID, T7 #### [facility] [address] [place] [address] Dr. Logan Payne PLT 245 103/ul Normal 150-450 [facility] Comment on above: Performed By: #### T SH, BNP, CMP, LIPID, T7 #### [facility] [address] [place] [address] Dr. Logan Payne RBC 4.43 106/ul Normal 4.20-5.40 [facility] Comment on above: Result Comment: Macr ocytosis 1+ Performed By: #### T SH, BNP, CMP, LIPID, T7 #### [facility] [address] [place] [address] Dr. Logan Payne WBC 10.3 103/ul Normal 4.0-11.0 [facility] Comment on above: Performed By: #### T SH, BNP, CMP, LIPID, T7 #### [facility] [address] [place] [address] Dr. Logan Payne FREE THYROXINE INDEX T7on FTI 3.01 Normal [facility] Comment on above: Performed By: #### T SH, BNP, CMP, LIPID, T7 #### [facility] [address] [place] [address] Dr. Logan Payne T3U 31.0 % Normal 23.5-40.5 [facility] Comment on above: Performed By: #### T SH, BNP, CMP, LIPID, T7 #### [facility] [address] [place] [address] Dr. Logan Payne T4 [Mass/Vol] 9.70 ug/dL Normal 5.53-11.00 [facility] Comment on above: Performed By: #### T SH, BNP, CMP, LIPID, T7 #### [facility] [address] [place] [address] Dr. Logan Payne GLYCOHEMOGLOBIN A1Con 2021 ADA RECOMMENDATION ADA THERAPEUTIC TARGET 6.0 - 7.0 ACTION SUGGESTED > 7.0 Normal [facility] Comment on above: Performed By: #### A 1C #### [facility] [address] [address] [address] Logan Payne Glucose [Mass/Vol] 126 mg/dL Normal [facility] Comment on above: Performed By: #### A 1C #### [facility] [address] [address] [address] Logan Payne HbA1c (Bld) [Mass fraction] 6.0 % Normal <=6.0 [facility] Comment on above: Performed By: #### A 1C #### [facility] [address] [place] [address] Dr. Logan Payne IRONon 06-27-2021 Iron [Mass/Vol] 90.0 ug/dL Normal 37.0-170.0 [facility] Comment on above: Performed By: #### I GRANT #### [facility] [address] [address] [address] Logan Payne LIPID PROFILEon 06-27-2021 CHOL-HDL RATIO NORM SEE BELOW Normal [facility] Comment on above: Result Comment: 3.3 - 4.4 LOW RISK 4.4 - 7.1 AVERAGE RISK 7.1 - 11.0 MODERATE RISK >11.0 HIGH RISK Performed By: #### T SH, BNP, CMP, LIPID, T7 #### [facility] [address] [address] [address] Logan Payne Cholesterol [Mass/Vol] 209 mg/dL Critically high <=200 [facility] Comment on above: Performed By: #### T SH, BNP, CMP, LIPID, T7 #### [facility] [address] [address] [address] Logan Payne Cholesterol in HDL [Mass/Vol] 62 mg/dL Normal [facility] Comment on above: Performed By: #### T SH, BNP, CMP, LIPID, T7 #### [facility] [address] [address] [address] Logan Payne Cholesterol in LDL [Mass/Vol] 104.2 mg/dL Normal [facility] Comment on above: Performed By: #### T SH, BNP, CMP, LIPID, T7 #### [facility] [address] [address] [address] Logan Payne Cholesterol.total/Gabriela sterol in HDL [Mass ratio] 3.4 {ratio} Normal [facility] Comment on above: Performed By: #### T SH, BNP, CMP, LIPID, T7 #### [facility] [address] [place] [address] Dr. Logan Payne HDL NORMAL > or = 60 mg/dl - LO W CARDIOVASCULAR RISK <40 mg/dl - HIGH CARDIOVASCULAR RISK Normal [facility] Comment on above: Performed By: #### T SH, BNP, CMP, LIPID, T7 #### [facility] [address] [place] [address] Dr. Logan Payne LDL CALC NORMAL SEE BELOW Normal [facility] Comment on above: Result Comment: <100 mg/dl OPTIMAL 100 - 129 mg/dl NEAR OR ABOVE OPTIMAL 130 - 159 mg/dl BORDERLINE HIGH 160 - 189 mg/dl HIGH >190 mg/dl VERY HIGH Performed By: #### T SH, BNP, CMP, LIPID, T7 #### [facility] [address] [place] [address] Dr. Logan Payne Triglyceride [Mass/Vol] 214 mg/dL Critically high <=150 [facility] Comment on above: Performed By: #### T SH, BNP, CMP, LIPID, T7 #### [facility] [address] [place] [address] Dr. Logan Payne VLDL CALC 42.8 mg/dL Normal [facility] Comment on above: Performed By: #### T SH, BNP, CMP, LIPID, T7 #### [facility] [address] [place] [address] Dr. Logan Payne PROF 14(COMP METB)on 022 Albumin [Mass/Vol] 4.3 g/dL Normal 3.5-5.0 [facility] Comment on above: Performed By: #### T SH, BNP, CMP, LIPID, T7 #### [facility] [address] [address] [address] Logan Payne Albumin/Globulin [Mass ratio] 1.0 {ratio} Normal [facility] Comment on above: Performed By: #### T SH, BNP, CMP, LIPID, T7 #### [facility] [address] [address] [address] Logan Payne ALP [Catalytic activity/Vol] 108 U/L Normal 38-126 [facility] Comment on above: Performed By: #### T SH, BNP, CMP, LIPID, T7 #### [facility] [address] [address] [address] Logan Payne ALT [Catalytic activity/Vol] 59 U/L Critically high 9-52 [facility] Comment on above: Performed By: #### T SH, BNP, CMP, LIPID, T7 #### [facility] [address] [place] [address] Dr. Logan Payne Anion gap [Moles/Vol] 16.0 mmol/L Normal [facility] Comment on above: Performed By: #### T SH, BNP, CMP, LIPID, T7 #### [facility] [address] [address] [address] Logan Payne AST [Catalytic activity/Vol] 52 U/L Critically high 14-36 [facility] Comment on above: Performed By: #### T SH, BNP, CMP, LIPID, T7 #### [facility] [address] [address] [address] Logan Payne Bilirubin [Mass/Vol] 0.3 mg/dL Normal 0.2-1.3 [facility] Comment on above: Performed By: #### T SH, BNP, CMP, LIPID, T7 #### [facility] [address] [place] [address] Dr. Logan Payne Calcium [Mass/Vol] 9.9 mg/dL Normal 8.4-10.2 [facility] Comment on above: Performed By: #### T SH, BNP, CMP, LIPID, T7 #### [facility] [address] [place] [address] Dr. Logan Payne Chloride [Moles/Vol] 105 mmol/L Normal 98-107 [facility] Comment on above: Performed By: #### T SH, BNP, CMP, LIPID, T7 #### [facility] [address] [address] [address] Logan Payne CO2 [Moles/Vol] 21.6 mmol/L Critically low 22.0-30.0 [facility] Comment on above: Performed By: #### T SH, BNP, CMP, LIPID, T7 #### [facility] [address] [address] [address] Logan Payne Creatinine [Mass/Vol] 1.01 mg/dL Normal 0.52-1.04 [facility] Comment on above: Performed By: #### T SH, BNP, CMP, LIPID, T7 #### [facility] [address] [address] [address] Logan Payne EGFR-AF CYPRIOT >60 Normal >=60 [facility] Comment on above: Performed By: #### T SH, BNP, CMP, LIPID, T7 #### [facility] [address] [place] [address] Dr. Logan Payne EGFR-NON AF CYPRIOT 53 mL/min/1.73m2 Critically low >=60 [facility] Comment on above: Performed By: #### T SH, BNP, CMP, LIPID, T7 #### [facility] [address] [address] [address] Logan Payne Globulin (S) [Mass/Vol] 4.1 g/dL Normal [facility] Comment on above: Performed By: #### T SH, BNP, CMP, LIPID, T7 #### [facility] [address] [address] [address] Logan Payne Glucose [Mass/Vol] 117 mg/dL Critically high 74-106 [facility] Comment on above: Performed By: #### T SH, BNP, CMP, LIPID, T7 #### [facility] [address] [address] [address] Logan Payne Potassium [Moles/Vol] 4.6 mmol/L Normal 3.4-5.0 [facility] Comment on above: Performed By: #### T SH, BNP, CMP, LIPID, T7 #### [facility] [address] [address] [address] Logan Payne Protein [Mass/Vol] 8.4 g/dL Critically high 6.1-8.2 [facility] Comment on above: Performed By: #### T SH, BNP, CMP, LIPID, T7 #### [facility] [address] [place] [address] Dr. Logan Payne Sodium [Moles/Vol] 138 mmol/L Normal 137-145 [facility] Comment on above: Performed By: #### T SH, BNP, CMP, LIPID, T7 #### [facility] [address] [place] [address] Dr. Logan Payne Urea nitrogen [Mass/Vol] 18.0 mg/dL Critically high 7.0-17.0 [facility] Comment on above: Performed By: #### T SH, BNP, CMP, LIPID, T7 #### [facility] [address] [place] [address] Dr. Logan Payne Urea nitrogen/Creatinine [Mass ratio] 17.8 mg/mg Normal [facility] Comment on above: Performed By: #### T SH, BNP, CMP, LIPID, T7 #### [facility] [address] [place] [address] Dr. Logan Payne TSHon 06-27-2021 TSH 1.510 uIU/mL Normal 0.470-4.[address] [facility] Comment on above: Performed By: #### T SH, BNP, CMP, LIPID, T7 #### [facility] [address] [place] [address] Dr. Logan Payne TSH RANGE SEE BELOW Normal [facility] Comment on above: Result Comment: <0.3 4 UIU/ml HYPERTHYROID 0.34-5.60 UIU/ml EUTHYROID >5.60 UIU/ml HYPOTHYROID Performed By: #### T SH, BNP, CMP, LIPID, T7 #### [facility] [address] [place] [address] Dr. Logan Payne Vital Signs Date Time Vital Sign Value Performing Clinician Gabbie negron 06-25-2022 11:18-0500 Body temperature 97.8 [degF] MD Irish Faustin Work Phone: [facility] 06-25-2022 11:18-0500 Diastolic blood pressure 70 mm[Hg] MD Irish Faustin Work Phone: [facility] 06-25-2022 11:18-0500 Heart rate 69 /min MD Irish Faustin Work Phone: [facility] 06-25-2022 11:18-0500 SaO2% (BldA) [Mass fraction] 94 % MD Irish Faustin Work Phone: [facility] 06-25-2022 11:18-0500 Systolic blood pressure 140 mm[Hg] MD Irish Faustin Work Phone: [facility] 06-25-2022 04:17-0500 Respiratory rate 18 /min MD Irish Faustin Work Phone: [facility] 06-24-2022 07:18-0500 Body height 157.48 cm MD Irish Faustin Work Phone: [facility] 06-22-2022 11:19-0500 Body weight 67.2 kg MD Irish Faustin Work Phone: [facility] 06-16-2022 16:00-0500 Body temperature 97.6 [degF] MD Irish Faustin Work Phone: [facility] 06-16-2022 16:00-0500 Diastolic blood pressure 75 mm[Hg] MD Irish Faustin Work Phone: [facility] 06-16-2022 16:00-0500 Heart rate 72 /min MD Irish Faustin Work Phone: [facility] 06-16-2022 16:00-0500 Respiratory rate 16 /min MD Irish Faustin Work Phone: [facility] 06-16-2022 16:00-0500 SaO2% (BldA) [Mass fraction] 96 % MD Irish Faustin Work Phone: [facility] 06-16-2022 16:00-0500 Systolic blood pressure 127 mm[Hg] MD Irish Faustin Work Phone: [facility] 06-16-2022 06:00-0500 Body weight 68.8 kg MD Irish Faustin Work Phone: [facility] 06-11-2022 15:23-0500 Body height 157.48 cm MD Irish Faustin Work Phone: [facility] 06-09-2022 12:00-0500 Inhaled oxygen flow rate 2 L/min MD Irish Faustin Work Phone: [facility] Encounters Encounter Date Encounter Type Care Provider Facility Start: 05-18-2023 End: 05-18-2023 ambulatory [facility] Start: 03-17-2023 End: 03-17-2023 ambulatory [facility] Start: 12-28-2022 End: 12-28-2022 ambulatory [facility] Start: 11-17-2022 End: 11-17-2022 ambulatory [facility] Start: 07-08-2022 End: 07-08-2022 ambulatory [facility] Start: 06-16-2022 End: 06-25-2022 Evaluation and management of inpatient Stiven Summersey Facility:[facility] Start: 06-16-2022 End: 06-25-2022 Evaluation and management of inpatient MD Irish Faustin Work Phone: [facility] Work Phone: Start: 06-13-[address] Yoav Prado Facility:[id number] Start: 06-11-[address] Irish Faustin Facility:[facility] Start: 06-09-[address] Irish Faustin Facility:[id number] Start: 06-09-2022 End: 06-16-2022 Evaluation and management of inpatient Chema Annia Facility:[facility] Start: 06-09-2022 End: 06-16-2022 Evaluation and management of inpatient MD Irish Faustin Work Phone: [facility] Work Phone: Start: 06-08-2022 End: 06-09-[address] IRISH FAUSTIN Facility:[facility] Start: 01-12-2022 ambulatory VENUS TONG Facility :[facility] Start: 11-27-2021 ambulatory VENUS TONG Facility :[facility] Start: 11-22-2021 End: 11-25-2021 Evaluation and management of inpatient PHYSICIAN UNKNOWN Facility:[facility] Start: 11-05-2021 End: 11-06-2021 ambulatory VENUS TONG Facility:[facility] Start: 10-27-2021 End: 10-28-[address] IRISH FAUSTIN Facility:[facility] Start: 06-27-2021 End: 06-28-[address] IRISH FAUSTIN Facility:[facility] Procedures Date Procedure Procedure Detail Performing Clinician Start: 06-19-2022 Plain X-ray of left hip MD Iirsh Faustin Work Phone: Start: 06-12-2022 Doppler ultrasonogra phy of bilateral carotid arteries MD Irish Faustin Work Phone: Start: 06-12-2022 Magnetic resonance angiography of head without contrast MD Irish Faustin Work Phone: Start: 06-12-2022 MRI of head MD Irish Faustin Work Phone: Start: 06-11-2022 Plain chest X-ray MD Griffin Work Phone: Plan of Treatment Date Care Activity Detail Author Start: 06-25-2022 [facility] Start: 06-16-2022 [facility] Start: 06-16-2022 Hospital admission [facility] Start: 06-16-2022 Referral to clinical client relations associate [facility] Start: 06-16-2022 [facility] Start: 06-12-2022 Doppler ultrasonogra phy of bilateral carotid arteries US carotid doppler BI [facility] Start: 06-12-2022 US.doppler Carotid a rteries - bilateral [facility] Start: 06-09-2022 Hospital admission [facility] Patient Education Stroke (DC) [facility] Work Phone: Patient referral [facility] Work Phone: [facility] Payers Date Payer Category Payer Self-pay 1959 Medicare [id number] 1959 Private Health Insurance [id number] 1959 Self-pay [id number] 1940 Unknown [id number] 2.16.8 [id number] 1940 Unknown [id number] 2.16.84 [id number] 1940 Unknown [id number] 2.16.84 [id number] 1940 Unknown [id number] 2.16.84 [id number] 1940 Unknown [id number] 2.16.84 [id number] 1940 Unknown [id number] 2.16.84 [id number] 1940 Unknown [id number] 2.16.84 [id number] 1940 Unknown [id number] 2.16. [id number] 1940 Unknown [id number] 2.16. [id number] Unknown [id number] 2.16.8 [id number] Unknown [id number] 2.16.8 [id number] Social History Date Type Detail Facility Start: 06-09-2022 End: 06-17-2022 Tobacco smoking status NHIS Never smoked tobacco (finding) [facility] Start: 1940 Sex Assigned At Female F [facility] Goals Date Patient Goal Desired Activity /State Functional Status Date Assessment Result Facility 06-25-2022 Functional status Patient at Baseline [facility] Work Phone: 06-16-2022 Functional status Patient is Pro gressing Toward Baseline [facility] Work Phone: Mental Status Date Assessment Result Facility 06-25-2022 Cognitive function Cognitive Sta tus Patient at Baseline [facility] Work Phone: 06-16-2022 Cognitive function Cognitive Sta tus Patient is Progressing Toward Baseline [facility] Work Phone: Clinical Notes 11-26-2021 to 03-17-2023 Note Date & Type Note Facility 03-17-2023 Note [facility] Cardiology Clinic Note Chief Complaint: Patient here for follow up stress test done in Jan 2023. Shortly after that she was admitted to [facility] for severe sepsis and pneumonia. Daughter [...] in the morning., Disp: , Rfl: HYDROcodone-acetaminophen ([place]) 5-325 mg tablet, Take 5-325 tablets by [...] 10 mg tablet, Disp: , Rfl: omega 3-awd-ond-fish oil (Fish OiL) 1,000 mg (120 mg-180 [...] extremities. PSYCH: ap (more content not included)... [facility] 12-28-2022 Note Cardiology Clinic [place] Amelie Gomez is a 82 y.o. year old [...] in the morning., Disp: , Rfl: HYDROcodone-acetaminophen ([place]) 5-325 mg tablet, Take 5-325 tablets by [...] 10 mg tablet, Disp: , Rfl: omega 6-yjg-mrc-fish oil (Fish OiL) 1,000 mg (120 mg-180 [...] 0.5 mg tabl (more content not included)... [facility] 07-08-2022 Note [facility] Cardiology Clinic Note Chief Complaint: Patient being seen via telephone call for follow up [facility]. She was started on [...] was initiated by the patient and conducted [id number] with use of audio-only real time telephone communication between patient and provider for a virtual visit. Verbal consent to provide and bill for this service was obtained on 07/08/2022. Alexandria Santos MD, MPH, [facility], [facility], [facility] Interventional Cardiology Pager Email: [email or web address] 06-24-2022 Discharge summary Note Date/Time June 24, 2022 12:11pm [facility] [address] [place] [address] Discharge Summary Signed Patient: Abdirahman Gomez MR#: [id number] : 1940 Acct:[id number] Age/Sex: 81 / F Adm Date: 3 Loc: Room: [address] [place] [address]: Stiven Zaman MD Copies to: MD Lori McculloughKIM MD~ Providers Date of Discharge: 06/25/22 Discharging [...] lobe. She presented to outside facility around [place] with several days of generalized weakness. Her troponins were elevated. She was transferred to [facility]. Cardiology was consulted, did not feel acute [...] blood in the stool on admission to [facility], consistent with lower GI bleed. She was [...] ADLs. She will be discharged home with [facility] home health services tomorrow. She already has [...] Plan Discharge Plan Patient Disposition: Home Health [facility] Activity: Ambulate as Tolerated Diet: Low-Sodium and Low-Cholesterol Comment: Heart Healthy 3-4gm Sodium Additional Instructions: -Code Status: Full Code -Activity: Ambulate as tolerated -Diet: Heart Healthy 3-4gm Sodium, low cholesterol -Follow feeding strategies: Sit upright 90 degrees, pacing/slow rate, alternate liquids/solids. Your Home Health agency is [facility] ( ). They will contact you within [...] <Electronically signed by KIM Crowell> 06/25/22 1308 [facility] Work Phone: 1(873) 429-881601-11-2023 Hospital Discharge instructionsAmbulatory Orders* Initiate Home Health Time Frame: 06/24/22, Location: Determined By Patient Additional Instructions -Code Status: Full Code -Activity: Ambulate as tolerated -Diet: Heart Healthy 3-4gm Sodium, low cholesterol -Follow feeding strategies: Sit upright 90 degrees, pacing/slow rate, alternate liquids/solids. Your Home Health agency is [facility] ( ). They will contact you within [...] office to inform them prior to your appointment.[facility] Work Phone: 1(898) 334-282401-10-2023 Progress note Author Stiven Zaman [facility] June 23, 2022 9:35pm Note Date/Time June 22, 2022 11 :35am [facility] [address] [place] [address] Physiatry(Rehab) Progress Note Signed Patient: Abdirahman Gomez MR#: [id number] : 1940 Acct:[id number] Age/Sex: 81 / F Adm Date: 3 Loc: Room: [address] [place] [address] Type: ADM IN Attending Dr: Stiven Zaman [...] lobe. She presented to outside facility around [place] with several days of generalized weakness. Her troponins were elevated. She was transferred to [facility]. Cardiology was consulted, did not feel acute [...] blood in the stool on admission to [facility], consistent with lower GI bleed. She was [...] Chronic conditions stable. Review of Systems <Lori Croewll APRN - Last Filed: 06/22/22 11:45> Review [...] Insight: Good Judgment: Good Objective <Lori Crowell, [employer]IB STIFFENER AND HEEL DIPPER - Last Filed: 06/22/22 11:45> Labs 06/17/22 [...] tizanidine with h/o afib. Chronic pain received [place] 5/[address] Faustin. Will change from q4h to twice daily as at home. OARRS reviewed. Bowel and bladder: Continent. Skin: No pressure ulcers Sleep: Optimize sleep / wake. DVT prophylaxis: Covered with Eliquis. Functional status: Ambulatory. Needs assist. Left hemiplegia. Impaired endurance. Discharge planning: Home 7-10 days. I spent greater than 15 minutes for services, including qfwy-uu-tyvq encounter with the patient, discussion of the case, plan of care, and exam; and xmievfs-mn-hwqa activities, such as reviewing pertinent applications consultant documentation, recent therapy notes, laboratory and radiology studies, and discussion of case with care team including physician, nursing, correctional case manager, and therapists. More than 50 % of [...] tizanidine with h/o afib. Chronic pain received [place] 5/[address] Faustin. Will change from q4h to twice daily as at home. OARRS reviewed. Bowel and bladder: Continent. Skin: No pressure ulcers Sleep: Optimize sleep / wake. DVT prophylaxis: Covered with Eliquis. Functional status: Ambulatory. Needs assist. Left hemiplegia. Impaired endurance. Discharge planning: Home end of week I spent greater than 15 minutes for services, including fnhr-zg-usih encounter with the patient, discussion of the case, plan of care, and exam; and oggqgvn-jb-errb activities, such as reviewing pertinent applications consultant documentation, recent therapy notes, laboratory and radiology studies, and discussion of case with care team including physician, nursing, correctional case manager, and therapists. More than 50 % of time was spent on patient/family counseling or coordination ofcare. Decision Plan: I completed a substantive portion of this encounter, the medical decision makingportion of this note in its entirety, including Allied health note review, nursing note review, applications consultant note review, discussion with nursing and case management, and more than 50% of my time was spent on counseling and coordination of care, time spent 25 minutes Patient was personally seen by me, Dr. Zaman, on the day of encounter, reviewed the history and the relevant portions of the chart, including current orders, allied health and applications consultant notes, labs/imaging and performed smith elements of exam and I formulated the plan of care and facilitated the medical decision making. Documented By: Stiven Zaman MD 06/22/22 1133 Signed By: <Electronically signed by Stiven Zaman MD> 06/23/225 <Electronically signed by KIM Crowell> 06/22/22 1145 [facility] Work Phone: 1(200) 379-206001-10-2023 Progress note Author Stiven Zaman [facility] June 23, 2022 9:25pm Note Date/Time June 23, 2022 1 2:28pm [facility] [address] [place] [address] Physiatry(Rehab) Progress Note Signed Patient: Abdirahman Gomez MR#: [id number] : 1940 Acct:[id number] Age/Sex: 81 / F Adm Date: 3 Loc: Room: 2K2321-9 Type: ADM IN Attending Dr: Stiven Zaman MD Copies to: ~ <Lori Crowell APRN - Last Filed: 06/23/22 12:28> Date of Service: 06/23/2022 Subjective <Lori Crowell APRN - Last Filed: 06/23/22 12:28> Subjective Narrative: Ms. Gomez is a 81 year old female with history of CAD status post CABG, remote, atrial fibrillation, pacemaker placed, admitted to the rehabilitation unit with functional decline secondary to bilateral hemisphere cardioembolic stroke, right parietal lobe, left occipital lobe. She presented to outside facility around [place] with several days of generalized weakness. Her troponins were elevated. She was transferred to [facility]. Cardiology was consulted, did not feel acute [...] blood in the stool on admission to [facility], consistent with lower GI bleed. She was [...] reviewed with patient. Review of Systems <Lori Crowell, KIM - Last Filed: 06/23/22 12:28> Review of [...] % (Auto) 55.7 Lymph % (Auto) 31.9 [place] % (Auto) 8.4 Eos % (Auto) 3.2 Baso % (Auto) 0.8 Nucleat RBC Rel Count 0.1 Neut # (Auto) 4.5 Lymph # (Auto) 2.6 [place] # (Auto) 0.7 Eos # (Auto) 0.3 [...] tizanidine with h/o afib. Chronic pain received [place] 5/[address] Faustin. Will change from q4h totwice daily as at home. OARRS reviewed. Bowel and bladder: Continent. Skin: No pressure ulcers Sleep: Optimize sleep / wake. DVT prophylaxis: Covered with Eliquis. Functional status: Ambulatory. Needs assist. Left hemiplegia. Impaired endurance. Discharge planning: Home Wednesday or . I spent greater than 15 minutes for services, including asir-bi-kznc encounter with the patient, discussion of the case, plan of care, and exam; and kojtdfi-du-uzyq activities, such as reviewing pertinent applications consultant documentation, recent therapy notes, laboratory and radiology studies, and discussion of case with care team including physician, nursing, correctional case manager, and therapists. More than 50 % of [...] tizanidine with h/o afib. Chronic pain received [place] 5/[address] Faustin. Will change from q4h to twice daily as at home. OARRS reviewed. Bowel and bladder: Continent. Skin: No pressure ulcers Sleep: Optimize sleep / wake. DVT prophylaxis: Covered with Eliquis. Functional status: Ambulatory. Needs assist. Left hemiplegia resolved. Impairedendurance. Discharge planning: Home Wednesday or , pending FI. I spent greater than 15 minutes for services, including siiw-kk-byty encounter with the patient, discussion of the case, plan of care, and exam; and ysoxmqk-cs-xktp activities, such as reviewing pertinent applications consultant documentation, recent therapy notes, laboratory and radiology studies, and discussion of case with care team including physician, nursing, correctional case manager, and therapists. More than 50 % of time was spent on patient/family counseling or coordination ofcare. Decision Plan: I completed a substantive portion of this encounter, the medical decision makingportion of this note in its entirety, including Allied health note review, nursing note review, applications consultant note review, discussion with nursing and case management, and more than 50% of my time was spent on counseling and coordination of care, time spent 25 minutes Patient was personally seen by me, Dr. Zaman, on the day of encounter, reviewed the history and the relevant portions of the chart, including current orders, allied health and applications consultant notes, labs/imaging and performed smith elements of exam and I formulated the plan of care and facilitated the medical decision making. Documented By: Stiven Zaman MD 06/23/221 Signed By: <Electronically signed by Stiven Zaman MD> 06/23/222124 <Electronically signed by KIM Crowell> 06/23/228 [facility] Work Phone: 1(223) 545-876901-06-2023 Progress note Author Stiven Zaman [facility] June 19, 2022 3:19pm Note Date/Time June 19, 2022 3: 19pm [facility] [address] [place] [address] Physiatry(Rehab) Progress Note Signed Patient: Abdirahman Gomez MR#: [id number] : 1940 Acct:[id number] Age/Sex: 81 / F Adm Date: 3 Loc: Room: [address] [place] [address] Type: ADM IN Attending Dr: Stiven Zaman [...] lobe. She presented to outside facility around [place] with several days of generalized weakness. Her troponins were elevated. She was transferred to [facility]. Cardiology was consulted, did not feel acute [...] blood in the stool on admission to [facility], consistent with lower GI bleed. She was [...] Administration Vitamin D 125 mcg 06/17/22 09:00 06/19/22 08:26 Cholecalciferol 125 Mcg (5,000 Units) Tablet [...] tizanidine with h/o afib. Chronic pain received [place] 5/[address] Faustin. Will change [...] Allied health note review, nursing note review, applications consultant note review, discussion with nursing and case management, and more than 50% of my time was spent on counseling and coordination of care, time spent 35 minutes Patient was personally seen by me, Dr. Zaman, on the day of encounter, reviewed the history and the relevant portions of the chart, including current orders, allied health and applications consultant notes, labs/imaging and performed smith elements of exam and I formulated the plan of care and facilitated the medical decision making. Documented By: Stiven Zaman MD 06/19/221515 Signed By: <Electronically signed by Stiven Zaman MD> 06/19/22 1519 [facility] Work Phone: 1([phone]) 743-442101-05-2023 Progress note Author Stiven Zaman [facility] June 18, 2022 12:49pm Note Date/Time June 18, 2022 12 :49pm [facility] [address] [place] [address] Physiatry(Rehab) Progress Note Signed Patient: Abdirahman Gomez MR#: [id number] : 1940 Acct:[id number] Age/Sex: 81 / F Adm Date: 3 Loc: Room: [address] [place] [address] Type: ADM IN Attending Dr: Stiven Zaman [...] lobe. She presented to outside facility around [place] with several days of generalized weakness. Her troponins were elevated. She was transferred to [facility]. Cardiology was consulted, did not feel acute [...] blood in the stool on admission to [facility], consistent with lower GI bleed. She was [...] tizanidine with h/o afib. Chronic pain received [place] 5/[address] Faustin. Will change [...] Allied health note review, nursing note review, applications consultant note review, discussion with nursing and case management, and more than 50% of my time was spent on counseling and coordination of care, time spent 30 minutes Patient was personally seen by me, Dr. Zaman, on the day of encounter, reviewed the history and the relevant portions of the chart, including current orders, allied health and applications consultant notes, labs/imaging and performed smith elements of exam and I formulated the plan of care and facilitated the medical decision making. Documented By: Stiven Zaman MD 06/18/22 1246 Signed By: <Electronically signed by Stiven Zaman MD> 06/18/22 1249 [facility] Work Phone: 1(230) 758-131501-04-2023 History and physical note Author Stiven Zaman [facility] June 17, 2022 3:54pm Note Date/Time June 17, 2022 9: 40am [facility] [address] [place] [address] Physiatry (Rehab) H&P Signed Patient: Abdirahman Gomez MR#: [id number] : 1940 Acct:[id number] Age/Sex: 81 / F Adm Date: 3 Loc: Room: [address] [place] [address] Type: ADM IN Attending Dr: Stiven Zaman [...] lobe. She presented to outside facility around [place] with several days of generalized weakness. Her troponins were elevated. She was transferred to [facility]. Cardiology was consulted, did not feel acute [...] blood in the stool on admission to [facility], consistent with lower GI bleed. She was [...] 20 Meq Tab.Er.Prt) 20 meq PO DAILY [facility] Stop: 06/17/23 08:59 Last Admin: 06/17/22 08:07 [...] 8.6 Mg Tablet) 2 tab PO BID [facility] Stop: 06/16/23 [...] % (Auto) 57.7 Lymph % (Auto) 29.1 [place] % (Auto) 9.4 Eos % (Auto) 2.4 Baso % (Auto) 1.4 Nucleat RBC Rel Count 0.0 Neut # (Auto) 6.3 Lymph # (Auto) 3.2 [place] # (Auto) 1.0 H Eos # (Auto) [...] 2 weeks Expected Discharge Destination: Home Rehabilitation [facility]: 01.1 Primary Diagnosis: Stroke To have patient become more independent and to return home. Medical/ Functional Prognosis: Good Anticipated Functional Outcomes/Goals and Interventions: 1.Therapy Functional Outcome/Goal: Anticipate independent for bed mobility Anticipated interventions: Physician management, PT, OT, WOOD GRAINER, , Dietitian, RehabNursing, Case management 2. Therapy Functional Outcome/Goal: Anticipate independent for transfers Anticipated interventions: Physician management, PT, OT, WOOD GRAINER, Case management, Dietitian, Rehab Nursing 3. Therapy Functional Outcome/Goal: Anticipate independent for ambulation Anticipated interventions: Physician management, PT, OT, WOOD GRAINER Case management, Dietitian, Rehab Nursing 4.Therapy Functional Outcome/Goal: Anticipate independent for self-care Anticipated interventions: Physician management, PT, OT, WOOD GRAINER, Case management, Dietitian, Rehab Nursing 5.Therapy Functional Outcome/Goal: Anticipate independent for functional communication and swallowing Anticipated interventions: Physician management, PT, OT, WOOD GRAINER, Case management, Dietitian, Rehab Nursing Required Therapy [...] additional therapy on as needed basis. Comments: WOOD GRAINER to evaluate and treat patient?s cognition, language and communication skills, assess swallow function. Other: Dietitian, Rehab nursing, Wound, P&O, Neuropsychology as needed RATIONALE FOR IRF ADMISSION: Patient has both medical and functional complexities that require 24 hour daily monitoring and intervention from Residential Energy Auditor as well as other consulting physicians including internal medicine as well as 24 hour daily medical technologist prn nursing - for medical safe / optimal management. Patient requires interdisciplinary therapy team rehabilitation care including OT, PT, WOOD GRAINER, SW, Psychology, Rehab Nursing, requires and can [...] tizanidine with h/o afib. Chronic pain received [place] 5/[address] Faustin. Will change [...] Allied health note review, nursing note review, applications consultant note review, discussion with nursing and case management, and more than 50% of my time was spent on counseling and coordination of care, time spent 55 minutes Patient was personally seen by me, Dr. Zaman, on the day of encounter, reviewed the history and the relevant portions of the chart, including current orders, allied health and applications consultant notes, labs/imaging and performed smith elements of exam and I formulated the plan of care and facilitated the medical decision making. Documented By: Stiven Zaman MD 06/17/22 0940 Signed By: <Electronically signed by Stiven Zaman MD> 06/17/22 1554 [facility] Work Phone: 1([phone]) 769-458801-04-2023 Consult note Author Frida De La Cruz [facility] June 17, 2022 1:33pm Note Date/Time June 17, 2022 1: 33pm [facility] [address] [place] [address] Hospitalist Consult Note Signed Patient: Abdirahman Gomez MR#: [id number] : 1940 Acct:[id number] Age/Sex: 81 / F Adm Date: 3 Loc: Room: 9Z0941-1 Type: ADM IN Attending Dr: Stiven Zaman [...] oriented to place, time and person HEENT: [place] conjunctiva and NL buccal mucosa Neck: Supple, [...] % (Auto) 57.7, Lymph % (Auto) 29.1, [place] % (Auto) 9.4, Eos % (Auto) 2.4, Baso % (Auto) 1.4, Nucleat RBC Rel Count 0.0, Neut # (Auto) 6.3, Lymph # (Auto) 3.2, [place] # (Auto) 1.0 H, Eos # (Auto) [...] PCP and out patient providers to obtain [facility] record entirely to follow up on illnesses, symptoms, abnormal findings that I have and have not addressed during this encounter and hospitalization in out patient setting. Documented By: Frida De La Cruz MD 06/17/22 1329 Signed By: <Electronically signed by Frida De La Cruz MD> 06/17/22 4573 [facility] Work Phone: 1([phone]) 810-145701-03-2023 Progress note Author Frida De La Cruz [facility] June 16, 2022 11:42am Note Date/Time June 16, 2022 11 :42am [facility] [address] [place] [address] Progress Note Signed Patient: Abdirahman Gomez MR#: [id number] : 1940 Acct:[id number] Age/Sex: 81 / F Adm Date: 2 Loc: Room: [address] [place] [address] Type: ADM IN Attending Dr: Frida De [...] Frida De La Cruz MD> 06/16/22 1142 [facility] Work Phone: 1([phone]) 981-397001-03-2023 Discharge summary Author Firda De La Cruz [facility] June 16, 2022 8:32am Note Date/Time June 16, 2022 8: 24am [facility] [address] [place] [address] Discharge Summary Signed with Addenda Patient: Abdirahman Gomez MR#: [id number] : 1940 Acct:[id number] Age/Sex: 81 / F Adm Date: 2 Loc: Room: [address] [place] [address]: Frida De La Cruz MD [...] by Frida De La Cruz MD> 06/16/22 0832 ADDENDUM1 In addition patient was noted to [...] fib with RVR. She was seen by umbrella finisher. She was recommended to be on Eliquis [...] % (Auto) 61.6, Lymph % (Auto) 27.7, [place] % (Auto) 6.9, Eos % (Auto) 2.6, Baso % (Auto) 1.2, Nucleat RBC Rel Count 0.1, Neut # (Auto) 6.6, Lymph # (Auto) 2.9, [place] # (Auto) 0.7, Eos # (Auto) 0.3, [...] oriented to place, time and person HEENT: [place] conjunctiva and NL buccal mucosa Neck: Supple, [...] Discharge Plan Discharge Plan Patient Disposition: [facility] [facility] Activity: No Activity Restriction [...] ask your primary care provider to obtain [facility] records entirely to follow up on all of the abnormal physical, laboratory, and imaging findings that I have not addressed. Please return back to the emergency room or seek medical attention if your symptoms worsen or return. Discharging you from [facility] does not mean that your medical care [...] by Frida De La Cruz MD> 06/16/22823 [facility] Work Phone: 1([phone]) 689-273601-02-2023 Progress note Author Frida De La Cruz [facility] June 15, 2022 8:38am Note Date/Time June 15, 2022 8: 38am [facility] [address] [place] [address] Hospitalist Progress Note Signed Patient: Abdirahman Gomez MR#: [id number] : 1940 Acct:[id number] Age/Sex: 81 / F Adm Date: 2 Loc: Room: [address] [place] [address] Type: ADM IN Attending Dr: Frida De [...] oriented to place, time and person HEENT: [place] conjunctiva and NL buccal mucosa Neck: Supple, [...] Meekq PRN Reason Stop Dose Admin Acetaminophen 650 [...] signed by Frida De La Cruz MD> 06/15/22837 [facility] Work Phone: 1([phone] 464-856401-01-2023 Progress note Author Nathaniel Castillo [facility] June 14, 2022 2:53pm Note Date/Time June 14, 2022 2: 53pm [facility] [address] [place] [address] Hospitalist Progress Note Signed Patient: Abdirahman Gomez MR#: [id number] : 1940 Acct:[id number] Age/Sex: 81 / F Adm Date: 2 Loc: Room: [address] [place] [address] Type: ADM IN Attending Dr: Nathaniel Castillo [...] <Electronically signed by Nathaniel Castillo MD> 06/14/22 1451 [facility] Work Phone: 1([phone]) 104-203612-31-2022 Progress note Author Yoav Prado [facility] June 13, 2022 2:58pm Note Date/Time June 13, 2022 2:56pm [facility] [address] [place] [address] Cardiology Progress Note Signed Patient: Abdirahman Gomez MR#: [id number] : 1940 Acct:[id number] Age/Sex: 81 / F Adm Date: 2 Loc: 3T Room: [address] [place] [address] Type: ADM IN Attending Dr: Nathaniel Castillo [...] signed by MD Yoav Prado> 06/13/22 1458 [facility] Work Phone: 1([phone]) 991-440512-31-2022 Progress note Author Nathaniel Castillo [facility] June 13, 2022 2:00pm Note Date/Time June 13, 2022 9:29am [facility] [address] [place] [address] Hospitalist Progress Note Signed Patient: Abdirahman Gomez MR#: [id number] : 1940 Acct:[id number] Age/Sex: 81 / F Adm Date: 2 Loc: Room: [address] [place] [address] Type: ADM IN Attending Dr: Nathaniel Castillo [...] of care and confirmed it with the resident/student/DECORATOR HAND. Patient resting in bed comfortably. Denies chest [...] Full Documented By: Nathaniel Castillo MD 06/13/22 0914 Signed By: <Electronically signed by Nathaniel Castillo MD> 06/13/22 1400 <Electronically signed by DO RYAN Juarez> 06/13/22 1020 [facility] Work Phone: [phone]) 171-669912-30-2022 Progress note Author Nathaniel Castillo [facility] June 12, 2022 3:02pm Note Date/Time June 12, 2022 1:38pm [facility] [address] [place] [address] Hospitalist Progress Note Signed Patient: Abdirahman Gomez MR#: [id number] : 1940 Acct:[id number] Age/Sex: 81 / F Adm Date: 2 Loc: Room: [address] [place] [address] Type: ADM IN Attending Dr: Nathaniel Castillo [...] of care and confirmed it with the resident/student/DECORATOR HAND. Patient resting in chair comfortably. 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, full strength with flexion and extension of [...] 06/09/22 09:00 06/12/22 08:29 Omeprazole 20 Mg Capsule.Dr PO 12/27/23 08:59 40 mg BID JAK Administration Ondansetron [...] signed by DO RYAN Juarez> 06/12/22 1442 [facility] Work Phone: [phone] Progress note Author Paramjit Pride [facility] June 12, 2022 11:05am Note Date/Time June 12, 2022 11:05am [facility] [address] [place] [address] Cardiology Progress Note Signed Patient: Abdirahman Gomez MR#: [id number] : 1940 Acct:[id number] Age/Sex: 81 / F Adm Date: 2 Loc: Room: [address] [place] [address] Type: ADM IN Attending Dr: Nathaniel Castillo [...] <Electronically signed by Paramjit Pride MD> 06/12/22 1105 [facility] Work Phone: 1([phone]) 867-561412-29-2022 Progress note Author Nathaniel Castillo [facility] June 11, 2022 4:24pm Note Date/Time June 11, 2022 12:40pm [facility] [address] [place] [address] Hospitalist Progress Note Signed Patient: Abdirahman Gomez MR#: [id number] : 1940 Acct:[id number] Age/Sex: 81 / F Adm Date: 2 Loc: Room: [address] [place] [address] Type: ADM IN Attending Dr: Nathaniel Castillo [...] of care and confirmed it with the resident/student/DECORATOR HAND. Patient resting in bed comfortably. 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 which is improved upon yesterday's exam, full [...] signed by DO RYAN Juarez> 06/11/22 1240 [facility] Work Phone: 1([phone]) 392-946312-29-2022 Progress note Author Paramjit Pride [facility] June 11, 2022 9:45am Note Date/Time June 11, 2022 9:46am [facility] [address] [place] [address] Cardiology Progress Note Signed Patient: Abdirahman Gomez MR#: [id number] : 1940 Acct:[id number] Age/Sex: 81 / F Adm Date: 2 Loc: Room: [address] [place] [address] Type: ADM IN Attending Dr: Nathaniel Castillo [...] % (Auto) 65.1 Lymph % (Auto) 24.1 [place] % (Auto) 9.1 Eos % (Auto) 1.2 Baso % (Auto) 0.5 Nucleat RBC Rel Count 0.1 Neut # (Auto) 7.4 Lymph # (Auto) 2.8 [place] # (Auto) 1.0 H Eos # (Auto) [...] (min): 20 Documented By: Paramjit Pride MD 06/11/22 0942 Signed By: <Electronically signed by Paramjit Pride MD> 06/11/22 0945 [facility] Work Phone: 1([phone]) 133-367012-28-2022 Progress note Author Paramjit Pride [facility] June 10, 2022 6:21pm Note Date/Time June 10, 2022 12:12pm [facility] [address] [place] [address] Cardiology Progress Note Signed with Tushar Patient: Abdirahman Gomez MR#: [id number] : 1940 Acct:[id number] Age/Sex: 81 / F Adm Date: 2 Loc: Room: [address] [place] [address] Type: ADM IN Attending Dr: Nathaniel Castillo [...] EKG. The patient's troponin peaked initially in [facility] emergency department at 9000and is now come [...] H* Echocardiogram Signed Patient: Abdirahman Gomez MR#: [id number] : 1940 Acct:[id number] Age/Sex: 81 / F ADM Date: 06/09/22 Loc: Room:? 9O7242-2 Type:?ADM IN Attending Dr: Nathaniel Castillo MD [...] signed by Paramjit Pride MD> 06/10/22 1220 [facility] Work Phone: 1([phone]) 636-359512-28-2022 Progress note Author Nathaniel Castillo [facility] June 10, 2022 1:35pm Note Date/Time June 10, 2022 1:31pm [facility] [address] [place] [address] Progress Note Signed Patient: Abdirahman Gomez MR#: [id number] : 1940 Acct:[id number] Age/Sex: 81 / F Adm Date: 2 Loc: Room: [address] [place] [address] Type: ADM IN Attending Dr: Nathaniel Castillo [...] abnormalities, but upon review from a different umbrella finisher, it was noted that she has akinesis and thinning of the basal inferior wall of LV suggestive of a prior AL. #2 atrial fibrillation. Patient had a small [...] <Electronically signed by Nathaniel Castillo MD> 06/10/22 5352 [facility] Work Phone: 1([phone] 233-349912-27-2022 History and physical note Author Chema Milner [facility] June 09, 2022 8:18pm Note Date/Time June 09, 2022 4:14am [facility] [address] [place] [address] Hospitalist H&P Signed Patient: Abdirahman Gomez MR#: [id number] : 1940 Acct:[id number] Age/Sex: 81 / F Adm Date: 2 Loc: Room: [address] [place] [address] Type: ADM IN Attending Dr: Nathaniel Castillo MD Copies to: MD Chema Pham MD Douglas M Hoy, MD Samantha Mason, , RES~ HPI DATE OF EXAMINATION: 06/09/22 CHIEF COMPLAINT: Weakness HISTORY OF PRESENT ILLNESS: Patient is an 81-year-old female that is a transfer from [place] due to elevated troponins. Past medical history includes hypertension, hx CABG, presence of pacemaker, and paroxysmal atrial fibrillation. Patient had originally presented to the emergency room at [place] due to generalized weakness that started several [...] with Dr. Morton while patient was at [place]. It is not felt that patient is [...] plan of care and confirmed the nurse practitioners/residents/analysis intern written note. Patient is a 81-year-old lady history of CAD status post CABG, hypertension, A. fib, presence of pacemaker presented to [place] due to weakness and bloody stools. Patient has history of diverticulosis. Hemoglobin 13.5. Incidentally troponins were significantly elevated but patient did not have any cardiac complaints. EKG with no acute ischemic changes. EKG reviewed by umbrella finisher, not felt to be an acute ischemic event and recommended transfer to [facility] for further evaluation and management. Patient [...] DVT prophylaxis Documented By: Rossi Valdez DO, RYAN 06/09/22 0411 Signed By: <Electronically signed by DO RYAN Valdez> 06/09/22608 <Electronically signed by Chema Milner MD> 06/09/222017 [facility] Work Phone: 1(413) 414-150812-27-2022 Consult note Author Paramjit Pride [facility] June 09, 2022 3:21pm Note Date/Time June 09, 2022 3:16pm [facility] [address] [place] [address] Cardiology Consult Note Signed Patient: Abdirahman Gomez MR#: [id number] : 1940 Acct:[id number] Age/Sex: 81 / F Adm Date: 2 Loc: Room: [address] [place] [address] Type: ADM IN Attending Dr: Nathaniel Castillo [...] CAB x3 done approximately 30years ago in [place] who was transferred to our facility from [facility] 2days ago after presenting complaining of generalized weakness but more pronounced weakness of the left arm and hand. The patient states she been feeling more weak and fatigued than normal over the preceding 10 days or so prior to her presentation. On the day that she presented to [place] ER she noted that she felt very weak while in her shower. She felt like her left hand was numb and would not work. She apparently had aminor fall but suffered no injury with such. However EMS was activated. The patient was taken to [place] emergency department for evaluation. In the ER at [place] ER EKG was suspicious for ST segment [...] was anticoagulated and she was sent to [facility] for furtherevaluation. Since being here [facility] patient has had a mild increase [...] negative unless noted below or [facility]?: Yes Medical History A-fib [...] x10E3/uL Lymph # (Auto) 2.3 (1.00-4.8) x10E3/uL [place] # (Auto) 1.3 H (0.0-0.8) x10E3/uL Eos [...] AV and intraventricular conduction: 1 AV block AL, pacemaker, normal Myocardial infarction: inferior AL (old age indeterminate) Normal tracing: no change [...] discharge she can follow-up with her primary umbrella finisher in [facility]. Documented By: Paramjit Pride MD 06/09/22 1508 Signed By: <Electronically signed by Paramjit Pride MD> 06/09/22 1521 [facility] Work Phone: 1(204) 860-952912-27-2022 Progress note Author Nathaniel Castillo [facility] June 09, 2022 3:06pm Note Date/Time June 09, 2022 1:59pm [facility] [address] [place] [address] Hospitalist Progress Note Signed Patient: Abdirahman Gomez MR#: [id number] : 1940 Acct:[id number] Age/Sex: 81 / F Adm Date: 2 Loc: Room: [address] [place] [address] Type: ADM IN Attending Dr: Nathaniel Castillo [...] of care and confirmed it with the resident/student/DECORATOR HAND. Patient resting in bed comfortably. 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 Name: Abdirahman Gomez Admitted: 11/22/2021 Discharged: [...] is an 81-year-old female who presented to [facility] with chief complaint of symptomatic bradycardia that [...] P/Elijah Mcfadden PA-C Date Trans: 11/26/2021 06:47 Ismael/daniel [id number] cc: Irish Faustin M.D. [address] [id number] HospitalEvaluation note* Diagnosis Onset Date Resolution Status A-fib acute Abnormal ECG acute Constipation acute Diverticulosis acute Elevated troponin acute Embolic stroke acute Hypertension acute Pacemaker acute Paroxysmal atrial fibrillation acute Upper extremity weakness acu te [facility] Work Phone: Evaluation note* Diagnosis Onset Date [...] acute Pacemaker acute Paroxysmal atrial fibrillation acute [facility] Work Phone: Hospital Discharge instructions Additional Instructions [...] ask your primary care provider to obtain [facility] records entirely to follow up on all of the abnormal physical, laboratory, and imaging findings that I have not addressed. Please return back to the emergency room or seek medical attention if your symptoms worsen or return. Discharging you from [facility] does not mean that your medical care ends here and now. You may still need additional monitoring, work up, investigation, and treatment plan to be handled from this point on by out patient providers including your primary care provider and specialists. For any medication question, please contact your retail pharmacist or your primary care provider. Thank you.[facility] Work Phone: Summary Purpose Family History [...] and content) DATE CREATED AUTHOR 12/03/2021 [facility] DATE CREATED AUTHOR AUTHOR'S ORGANIZ ATION 06/16/2022 [facility] DATE CREATED AUTHOR AUTHOR'S ORGANIZ ATION 07/18/2022 [facility] DATE CREATED AUTHOR AUTHOR'S ORGANIZ ATION 08/03/2022 [facility] DATE CREATED AUTHOR AUTHOR'S ORGANIZ ATION 05/20/2023 [facility] Care Teams (unrecognized sec tion and [...] Stiven Zaman MD Admit Provider, Attending Provider A ctive Barb Santillan , PARISA Other Provider Active Leta Calle , PARISA Other Provider Active Faina Shah , PARISA Other Provider Active Kell Nettles , PARISA Other Provider Active Leilani Nick , PARISA Other Provider Active Amina Aguiar , PARISA Other Provider Active Frida De La Cruz MD Other Provider Active Josue Espitia MD Other Provider Active Ramila Wallace , RIB STIFFENER AND HEEL DIPPER Other Provider Active Dewayne Rader , DO [...] MD Other Provider Active Devora Restrepo , DECORATOR HAND-C Other Provider Active Ga Kwong MD Other Provider Active Maurilio Banks MD Other Provider Active Chema Milner MD Other Provider Active Herminia Andrew , DO Other Provider Active Johnny Benson , DO Other Provider Active Rober Perez , DO Other Provider Active Brandi Cifuentes RIB STIFFENER AND HEEL DIPPER Other Provider Active Devante Lafleur , DO Other Provider Active Malu Roblero MD Other Provider Active Monisha Thompson APRN Other Provider Active Meghna Arcos RN Other Provider Active FOR RECORDS PERTAINING TO [...] BE BASED ON THE PRIMARY CLINICAL RECORDS. [facility] provides no warranty or guarantee of the accuracy or completeness of information in this document.
== END 2023-12-14 10:43 | disposition home or self-care (01) ==
LOC: RAD 10:43
PROVIDERS: PCP Family Medicine; Visit Provider Family Medicine
DX: M54.50 Low back pain, unspecified (principal); M25.551 Pain in right hip; M51.36 Other intervertebral disc degeneration, lumbar region; Z96.642 Presence of left artificial hip joint
CPT/HCPCS: 72100; 72220; 73502

== ENCOUNTER 2023-12-28 14:16 | Outpatient (OUT) | payer MEDICARE, OTHER, SELFPAY ==
[2023-12-28 14:38] LABS: Basophils Absolute Auto 0.1 10^3/uL (0.0-0.1); Basophils Percent Auto 0.6 % (0.2-2.0); Eosinophils Absolute Auto 0.1 10^3/uL (0.0-0.7); Eosinophils Percent Auto 0.7 % (0.9-7.0); Hemoglobin 15.5 g/dL (12.0-16.0); Immature Granulocytes Abs Auto 0.16 10^3/uL (0.00-0.03); Immature Granulocytes Pct Auto 1.2 % (0.0-0.5); Lymphocytes Absolute Auto 2.7 10^3/uL (1.2-3.8); Lymphocytes Percent Auto 19.6 % (20.5-60.0); Mean Corpuscular HGB Conc 33.7 g/dL (29.9-35.2); Mean Corpuscular Hemoglobin 35.8 pg (26.7-34.0); Mean Corpuscular Volume 106.2 fL (81.0-99.0); Mean Platelet Volume 8.9 fL (9.5-13.5); Monocytes Absolute Auto 1.1 10^3/uL (0.3-0.8); Monocytes Percent Auto 8.1 % (1.7-12.0); Neutrophils Absolute Auto 9.7 10^3/uL (1.4-6.5); Neutrophils Percent Auto 69.8 % (43.0-75.0); Platelet Count 299 10^3/uL (150-450); Red Cell Distribution Width 13.9 % (11.0-15.0); White Blood Count 13.9 10^3/uL (4.0-11.0)
[2023-12-28 15:00] LABS: Red Blood Count 4.33 10^6/uL (4.20-5.40)
[2023-12-28 16:14] LABS: Alanine Aminotransferase 33 U/L (14-59); Albumin Level 3.9 g/dL (3.4-5.0); Alkaline Phosphatase 85 U/L (46-116); Anion Gap 18.5; Aspartate Amino Transferase 36 U/L (15-37); BUN Creatinine Ratio 9.5; Bilirubin Total 0.4 mg/dL (0.2-1.0); Calcium 9.5 mg/dL (8.5-10.1); Carbon Dioxide 21.7 mmol/L (21.0-32.0); Chloride 100 mmol/L (98-107); Estimated GFR (African America >60 (>=60); Estimated GFR (Non-African Ame >60 (>=60); Globulin 4.1 g/dL; Glucose 115 mg/dL (74-106); Potassium 4.2 mmol/L (3.5-5.1); Sodium 136 mmol/L (136-145)
== END 2023-12-28 14:17 | disposition home or self-care (01) ==
LOC: LAB 14:16
PROVIDERS: PCP Family Medicine; Visit Provider Family Medicine
DX: D72.829 Elevated white blood cell count, unspecified (principal); I10 Essential (primary) hypertension
CPT/HCPCS: 36415; 80053; 85025

== ENCOUNTER 2024-07-13 13:44 | Observation (INO) | payer MEDICARE, OTHER, SELFPAY ==
[2024-07-13] VITALS (23 sets, daily range): BP systolic 99–149; BP diastolic 60–82; PULSE 69–85; TEMP 36.4–36.9; O2SAT 91–97; BMI 25.1; BMI 25.6
--- NOTE | 2024-07-13 13:47 | ECG_ITS ---
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
--- NOTE | 2024-07-13 13:47 | XR_ITS ---
The [address] [address] Patient Name: ABDIRAHMAN GOMEZ MRN: [id number] date: 1940 Sex: F Assigned Patient Location: ED.MAIN Current Patient Location: ER Accession/Order Number: [id number] Exam Date: 07/13/2024 14:10 Report Date: 07/13/2024 14:43 At the request of: NAT COCHRAN Procedure: XR chest 1V EXAMINATION: XR chest 1V HISTORY: Shortness of breath COMPARISON: No relevant comparison available. FINDINGS: LUNGS: No significant pulmonary parenchymal abnormalities. VASCULATURE: No increased pulmonary vasculature. PLEURA: No pneumothorax, effusion, or pleural thickening. CARDIAC: Grossly stable cardiomegaly. Stable cardiac pacer. MEDIASTINUM: Prior sternotomy. No abnormal widening. BONES: No fracture or visible bone lesion. OTHER: Negative. XR/XR chest 1V IMPRESSION: 1. No acute cardiopulmonary process. Electronically authenticated by: ANTONIA ABDALLA Date: 07/13/2024 14:43
--- NOTE | 2024-07-13 13:48 | ED.GENADUL1 ---
HPI HPI - General Adult General Chief complaint: Upper Respiratory Infection Stated complaint: SOB Time Seen by Provider: 07/13/24 13:47 Source: patient Mode of arrival: ambulance History of Present Illness HPI narrative: Patient is an 83-year-old female with a history of A-fib who presents to the emergency department by EMS from her home in [place] where she lives for evaluation of shortness of breath and weakness. EMS reports this has been ongoing for several weeks, she had an antibiotic called in by her primary care provider 2 weeks ago which she finished 5 to 7 days ago. Patient states in the last several days she has felt more weak. She continues to feel short of breath and have a cough. No fevers, vomiting or diarrhea. She states she has not had any difficulty eating or drinking. Daughter was concerned about pneumonia so she called 911. Patient states at time of arrival she is feeling fine . She denies any falls or injuries. She has chronic low back pain that she takes a pain pill at nighttime for, she states she does not need anything for pain at this time. Related Data Home Medications ?Medication ?Instructions ?Recorded ?Confirmed amlodipine 10 mg tablet 10 mg PO DAILY 02/01/23 07/13/24 aspirin 81 mg capsule 81 mg PO DAILY 02/01/23 07/13/24 carvedilol 12.5 mg tablet 12.5 mg PO Q12H 02/01/23 07/13/24 hydrocodone 5 mg-acetaminophen 325 1 tab PO Q12H 02/01/23 07/13/24 mg tablet lorazepam 1 mg tablet 1 mg PO Q12H 02/01/23 07/13/24 montelukast 10 mg tablet 10 mg PO DAILY 02/01/23 07/13/24 omeprazole 40 mg capsule,delayed 40 mg PO BID 02/01/23 07/13/24 release polyethylene glycol 3350 17 17 g PO DAILY PRN constipation 02/01/23 07/13/24 gram/dose oral powder (ClearLax) potassium chloride 20 mEq 20 meq PO DAILY 02/01/23 07/13/24 tablet,extended release(part/cryst) (Klor-Con M) pramipexole 0.5 mg tablet 0.5 mg PO QPM 02/01/23 07/13/24 rosuvastatin 5 mg tablet 5 mg PO QPM 02/01/23 07/13/24 sennosides 8.6 mg tablet (senna) 17.2 mg PO BID Constipation 02/01/23 07/13/24 tizanidine 4 mg tablet 8 mg PO QPM 02/01/23 07/13/24 valsartan 40 mg tablet 40 mg PO DAILY 02/01/23 07/13/24 ascorbic acid (vitamin C) 1,000 mg 1 g PO DAILY 07/13/24 07/13/24 tablet (Vitamin C) biotin 10,000 mcg capsule 1 mcg PO DAILY 07/13/24 07/13/24 cholecalciferol (vitamin D3) 125 5,000 unit PO DAILY 07/13/24 07/13/24 mcg (5,000 unit) tablet (Vitamin D3) magnesium 250 mg tablet 500 mg PO DAILY 07/13/24 07/13/24 multivitamin 1 tab PO DAILY 07/13/24 07/13/24 omega 2-xit-itg-fish oil 1,200 mg 1 cap PO DAILY 07/13/24 07/13/24 (144 mg-216 mg) capsule (Fish Oil) Previous Rx's ?Medication ?Instructions ?Recorded apixaban 2.5 mg tablet (Eliquis) 2.5 mg PO BID #60 tabs 02/03/23 furosemide 20 mg tablet (Lasix) 20 mg PO DAILY #30 tabs 02/03/23 isosorbide mononitrate 30 mg 30 mg PO QD #30 tabs 02/03/23 tablet,extended release 24 hr Allergies Allergy/AdvReac Type Severity Reaction Status Date / Time amitriptyline Allergy Severe Unknown Verified 07/13/24 13:50 ciprofloxacin (From Cipro) Allergy Unknown Unknown Verified 07/13/24 13:50 paper tape Allergy Severe Unknown Uncoded 07/13/24 13:50 Opioid HPI Opioid Management Most Recent Opioid Data: Last Pain Scale 3 02/02/23 02:00 02/02/23 Last Pain Intensity 0 02/01/23 10:40 02/01/23 Review of Systems ROS Constitutional Denies: fever or chills Ears, nose, mouth, and throat Denies: throat pain or nasal congestion Cardiovascular Denies: chest pain Respiratory Reports: shortness of breath and cough Gastrointestinal Denies: nausea, vomiting or diarrhea Musculoskeletal Reports: back pain and extremity pain; Denies: neck pain Integumentary/Breast Denies: rash Neurological Denies: numbness in extremities or weakness in extremities Hematologic/Lymphatic Denies: easy bruising or easy bleeding PFSH PFSH Medical History (Updated 07/13/24 @ 16:38 by GIGI Urbina) Sepsis ?A41.9 - Sepsis, unspecified organism (ICD-10) CAD (coronary artery disease) ?I25.10 - Atherosclerotic heart disease of [place] coronary artery without angina pectoris (ICD-10) HTN (hypertension) ?I10 - Essential (primary) hypertension (ICD-10) Hyponatremia ?E87.1 - Hypo-osmolality and hyponatremia (ICD-10) (HFpEF) heart failure with preserved ejection fraction ?I50.30 - Unspecified diastolic (congestive) heart failure (ICD-10) H/O stroke without residual deficits ?Z86.73 - Personal history of transient ischemic attack (TIA), and cerebral infarction without residual deficits (ICD-10) Acute respiratory failure with hypoxia ?J96.01 - Acute respiratory failure with hypoxia (ICD-10) MRSA (methicillin resistant Staphylococcus aureus) ?A49.02 - Methicillin resistant Staphylococcus aureus infection, unspecified site (ICD-10) CHF (congestive heart failure) ?I50.9 - Heart failure, unspecified (ICD-10) Pneumonia ?J18.9 - Pneumonia, unspecified organism (ICD-10) Hypoxemia ?R09.02 - Hypoxemia (ICD-10) Surgical History History of hysterectomy ?Z90.710 - Acquired absence of both cervix and uterus (ICD-10) S/P triple vessel bypass ?Z95.1 - Presence of aortocoronary bypass graft (ICD-10) History of open heart surgery ?Z98.890 - Other specified postprocedural states (ICD-10) Family History Mother Family history of CHF (congestive heart failure) Family history of COPD (chronic obstructive pulmonary disease) Other Family history of cancer Family history of diabetes mellitus Family history of hypertension Family history of myocardial infarction Social History Within the past year, how often did you have a drink containing alcohol: never Score interpretation: A score less than 3 is consistent with normal alcohol consumption. Smoking status: Never smoker Non-prescribed substance use: denies use Highest level of school completed/degree received: 10th grade Little interest or pleasure in doing things: not at all Feeling down, depressed, or hopeless: not at all Feel stressed/tense/nervous/anxious/difficulty sleeping: not at all Do you think of yourself as: straight/heterosexual Gender Identity: female Exam Narrative Exam Narrative: Gen.: Awake, alert, in no distress Head: Normocephalic, atraumatic ENT: Moist mucous membranes Respiratory: No respiratory distress, speaks in full sentences, no coughing noted, no wheezing or rhonchi. Diminished lung sounds in the bilateral bases Cardio: Regular rate and rhythm Gastrointestinal: Abdomen is soft, nondistended and nontender to palpation Extremities: Moves extremities equally, no injuries noted Psych: Normal mood and affect Neuro: No focal neuro deficit Skin: Warm, dry, intact Constitutional Vital Signs, click to edit/add: Last Vital Signs Temp 98.5 F 07/13/24 13:45 Pulse 82 07/13/24 15:12 Resp 22 H 07/13/24 15:12 BP 128/73 07/13/24 15:12 Pulse Ox 93 L 07/13/24 15:12 O2 Del Method Room Air 07/13/24 14:09 Course Vital Signs Vital signs: Vital Signs Temperature 98.5 F 07/13/24 13:45 Pulse Rate 83 07/13/24 13:45 Respiratory Rate 20 07/13/24 13:45 Blood Pressure 118/81 07/13/24 13:45 Pulse Oximetry 93 L 07/13/24 13:45 Oxygen Delivery Method Room Air 07/13/24 13:45 Temperature 98.5 F 07/13/24 13:45 Pulse Rate 82 07/13/24 15:12 Respiratory Rate 22 H 07/13/24 15:12 Blood Pressure 128/73 07/13/24 15:12 Pulse Oximetry 93 L 07/13/24 15:12 Oxygen Delivery Method Room Air 07/13/24 14:09 Medical Decision Making MDM Narrative Medical decision making narrative: Laboratory studies reviewed and noted showing leukocytosis, lactic acid and the remainder of the labs are normal. Urine specimen with mild UTI however contaminated. Initial chest x-ray shows no evidence of acute cardiopulmonary changes. Patient is in rate controlled atrial fibrillation which she is anticoagulated for. CT of the chest was performed showing bibasilar infiltrates and the patient is treated with azithromycin and Rocephin due to fluoroquinolone allergy. The patient is hemodynamically stable at time of admission. SUPERVISED APC VISIT, PHYSICIAN ATTESTATION: Based on the medical record the care appears appropriate. ? Medical Records Medical records reviewed: Yes I reviewed the patient's medical records Lab Data Lab results reviewed: Yes I reviewed the patient's lab results Labs: Lab Results 07/13/24 07/13/24 07/13/24 Range/Units 13:55 13:58 15:11 WBC 23.2 H (4.0-11.0) 10^3/uL RBC 3.98 L (4.20-5.40) 10^6/uL Hgb 13.9 (12.0-16.0) g/dL Hct 41.6 (36.0-48.0) % MCV 104.5 H (81.0-99.0) fL MCH 34.9 H (26.7-34.0) pg MCHC 33.4 (29.9-35.2) g/dL RDW 13.0 (11.0-15.0) % Plt Count 294 (150-450) 10^3/uL MPV 9.2 L (9.5-13.5) fL Neut % (Auto) 82.2 H (43.0-75.0) % Lymph % (Auto) 10.7 L (20.5-60.0) % Ocean % (Auto) 5.2 (1.7-12.0) % Eos % (Auto) 0.7 L (0.9-7.0) % Baso % (Auto) 0.3 (0.2-2.0) % Neut # (Auto) 19.1 H (1.4-6.5) 10^3/uL Lymph # (Auto) 2.5 (1.2-3.8) 10^3/uL [place] # (Auto) 1.2 H (0.3-0.8) 10^3/uL Eos # (Auto) 0.2 (0.0-0.7) 10^3/uL Baso # (Auto) 0.1 (0.0-0.1) 10^3/uL Abs Immat Gran (auto) 0.22 H (0.00-0.03) 10^3/uL Imm/Tot Granulo (auto) 0.9 H (0.0-0.5) % PT 11.2 (9.0-11.6) sec INR 1.06 VBG pH 7.467 H (7.330-7.430) VBG pCO2 31.5 L (40.0-52.0) mmHg Sodium 136 (136-145) mmol/L Potassium 4.8 (3.5-5.1) mmol/L Chloride 99 (98-107) mmol/L Carbon Dioxide 23.6 (21.0-32.0) mmol/L Anion Gap 18.2 BUN 18.0 (7.0-18.0) mg/dL Creatinine 1.06 H (0.55-1.02) mg/dL Est GFR ( Amer) 60 (>=60 mL/min/1.73m^2) Est GFR (Non-Af Amer) 50 L (>=60 mL/min/1.73m^2) BUN/Creatinine Ratio 17.0 Glucose 110 H (74-106) mg/dL Lactate 1.8 (0.4-2.0) mmol/L Calcium 9.1 (8.5-10.1) mg/dL Total Bilirubin 0.6 (0.2-1.0) mg/dL AST 39 H (15-37) U/L ALT 30 (14-59) U/L Alkaline Phosphatase 77 (46-116) U/L Troponin I High Sens 9.5 (4.0-51.3) pg/mL NT-Pro-B Natriuret Pep 1057.0 (<=1800.0) pg/mL Total Protein 7.6 (6.4-8.2) g/dL Albumin 3.2 L (3.4-5.0) g/dL Globulin 4.4 g/dL Albumin/Globulin Ratio 0.7 Urine Color Yellow (YELLOW) Urine Clarity Clear (CLEAR) Urine pH 6.0 (5.0-9.0) Ur Specific [place] 1.010 (1.005-1.025) Urine Protein Negative (NEG/TRACE) mg/dL Urine Glucose (UA) Negative (NEGATIVE) mg/dL Urine Ketones Negative (NEGATIVE) mg/dL Urine Occult Blood Trace-i (NEGATIVE) Urine Nitrite Negative (NEGATIVE) Urine Bilirubin Negative (NEGATIVE) Urine Urobilinogen 0.2 (0.2-1.0) EU/dL Ur Leukocyte Esterase Small A (NEGATIVE) Urine RBC 0-2 (0-2) #/HPF Urine WBC 5-10 A (NONE SEEN) #/HPF Ur Squamous Epith Cells Many A (NONE/RARE) #/LPF Ur Transition Epith Cell Rare A (NONE SEEN) #/LPF Urine Crystals None seen (None Seen) #/HPF Urine Bacteria Small A (NONE SEEN) #/HPF Urine Casts Seen A (NONE SEEN) #/LPF Hyaline Casts Rare Urine Mucus Trace A (NONE SEEN) Ur Culture Indicated? Yes Influenza Type A Ag Negative Influenza Type B Ag Negative SARS-CoV-2 Ag (CV2AG) Negative (NEGATIVE) Imaging Data Chest x-ray: Attestation: I have reviewed the pertinent imaging results. Radiologist's impression: ITS Impressions Chest X-Ray 07/13/24 13:47 IMPRESSION: 1. No acute cardiopulmonary process. Electronically authenticated by: ANTONIA ABDALLA Date: 07/13/2024 14:[address] 07/13/24 14:37 IMPRESSION: 1. Bilateral lower lobe mild infiltrates; nonspecific but suggestive of pneumonia. 2. 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 Consider ultrasound evaluation. Unchanged compared to 02/01/2023. Electronically authenticated by: ANTONIA ABDALLA Date: 07/13/2024 15:27 ECG Data Attestation: I personally reviewed and interpreted this ECG as follows: (Rate controlled atrial fibrillation at a rate of 74, no acute ST elevation or ectopy. EKG reviewed by attending physician) Discharge Plan Discharge Chief Complaint: Upper Respiratory Infection Patient Disposition: Admitted As Inpatient Time of Disposition Decision: 16:38 Prescriptions / Home Meds: No Action multivitamin Tablet 1 tab PO DAILY ascorbic acid (vitamin C) [Vitamin C] 1,000 mg tablet 1 g PO DAILY cholecalciferol (vitamin D3) [Vitamin D3] 125 mcg (5,000 unit) tablet 5,000 unit PO DAILY omega 7-fjw-mvb-fish oil [Fish Oil] 1,200 (144-216) mg capsule 1 cap PO DAILY magnesium 250 mg tablet 500 mg PO DAILY biotin 10,000 mcg capsule 1 mcg PO DAILY amlodipine 10 mg tablet 10 mg PO DAILY carvedilol 12.5 mg tablet 12.5 mg PO Q12H hydrocodone-acetaminophen 5-325 mg tablet 1 tab PO Q12H lorazepam 1 mg tablet 1 mg PO Q12H Patient Comments: 1/2-1 tablet twice daily montelukast 10 mg tablet 10 mg PO DAILY omeprazole 40 mg capsule,delayed release(DR/EC) 40 mg PO BID polyethylene glycol 3350 [ClearLax] 17 gram/dose powder 17 g PO DAILY PRN (Reason: constipation) potassium chloride [Klor-Con M20] 20 mEq tablet,ER particles/crystals 20 meq PO DAILY pramipexole 0.5 mg tablet 0.5 mg PO QPM rosuvastatin 5 mg tablet 5 mg PO QPM tizanidine 4 mg tablet 8 mg PO QPM valsartan 40 mg tablet 40 mg PO DAILY aspirin 81 mg capsule 81 mg PO DAILY sennosides [senna] 8.6 mg tablet 17.2 mg PO BID Rx Instructions: 2 tabs BID isosorbide mononitrate 30 mg Tablet Extended Release 24 Hr 30 mg PO QD Qty: 30 11RF Eliquis 2.5 mg tablet 2.5 mg PO BID Qty: 60 11RF furosemide [Lasix] 20 mg tablet 20 mg PO DAILY Qty: 30 11RF Print Language: Samoan Referrals: Ganesh Samuel MD [Primary Care Provider] - 1 week
[2024-07-13 14:06] LABS: Basophils Absolute Auto 0.1 10^3/uL (0.0-0.1); Basophils Percent Auto 0.3 % (0.2-2.0); Eosinophils Absolute Auto 0.2 10^3/uL (0.0-0.7); Eosinophils Percent Auto 0.7 % (0.9-7.0); Hematocrit 41.6 % (36.0-48.0); Hemoglobin 13.9 g/dL (12.0-16.0); Immature Granulocytes Abs Auto 0.22 10^3/uL (0.00-0.03); Immature Granulocytes Pct Auto 0.9 % (0.0-0.5); Lymphocytes Absolute Auto 2.5 10^3/uL (1.2-3.8); Lymphocytes Percent Auto 10.7 % (20.5-60.0); Mean Corpuscular HGB Conc 33.4 g/dL (29.9-35.2); Mean Corpuscular Hemoglobin 34.9 pg (26.7-34.0); Mean Corpuscular Volume 104.5 fL (81.0-99.0); Mean Platelet Volume 9.2 fL (9.5-13.5); Monocytes Absolute Auto 1.2 10^3/uL (0.3-0.8); Monocytes Percent Auto 5.2 % (1.7-12.0); Neutrophils Absolute Auto 19.1 10^3/uL (1.4-6.5); Neutrophils Percent Auto 82.2 % (43.0-75.0); Platelet Count 294 10^3/uL (150-450); Red Blood Count 3.98 10^6/uL (4.20-5.40); White Blood Count 23.2 10^3/uL (4.0-11.0)
[2024-07-13 14:10] LABS: pH VBG 7.467 (7.330-7.430)
[2024-07-13 14:11] LABS: PCO2 VBG 31.5 mmHg (40.0-52.0)
--- OUTSIDE RECORDS SUMMARY | 2024-07-13 14:13 | XMS_ITS | CCD ---
Author Organization [facility] CliniSyri Care Team Providers Care Welder Fitter Gas Name Role Phone UNKNOWN, PHYSICIAN Referring Unavailable [...] MD Frida De La Cruz Attending Provider [phone] MD Stiven Zaman Admit Provider MD Stiven Zaman Attending Provider [phone] PARISA Santillan Other Provider Unavailable PARISA Calle [...] Care Unavail able Dr. Yoav Prado Attending UnavailDr. Irish Vásquez Primary Care Unavail able Dr. Irish Faustin Primary Care Unavail able SARABJIT VICENTE Referring Unavailable SARABJIT VICENTE Referring Unavailable ZAINAB, EHAB Attending Unavailable Allergies Allergy Classification Reported Allergen(s) Allergy Type Date of Onset Reaction(s) Facility (1 source) Adhesive agent Drug allergy (disorder) 9 [facility] (3 sources) Ciprofloxacin Drug Allergy 6 [facility] (5 sources) Codeine; Translations: [CODEINE] Drug Allergy 9 Itching [facility] (1 source) paper tape; Translations: [paper tape] Propensity to adverse reactions (disorder) 2 [facility] (1 source) Desonide Drug Allergy [facility] (4 sources) Ciprofloxacin; Translations: [ciprofloxacin] Drug Allergy 2 Redness of Skin [facility] (1 source) Codeine Drug Allergy 2 [facility] Rep[facility] (1 source) Amitriptyline; Translations: [AMITRIPTYLINE] Drug Allergy 4 [facility] (1 source) rosuvastatin; Translations: [ROSUVASTATIN] Drug Allergy 5 [facility] (1 source) ADHESIVE TAPE-SILICONES; Translations: [ADHESIVE TAPE-SILICONES] Propensity to adverse reactions to drug (disorder) 5 [facility] Medications Current Medications Medication Drug Class(es) [...] June 16, 2022 10:52am polyethylene glycol 3350 66339 mg powder for oral solution (3 sources) [...] Start: 06-14-2022 take 2 tablets by mo [facility] twice daily Sennosides (Senna Lax) 8.6 mg [...] (2 sources) Start: 06-09-2022 End: 06-16-2022 take 89961 ug by mouth once daily Biotin Discontinued 56840 MCG PO Daily June 09, 2022 12:00am June 16, 2022 10:52am Magnesium Chloride (2 sources) Start: 06-09-2022 End: 06-16-2022 take 64 mg by mouth once daily Magnesium Chloride Discontinued 64 MG PO Daily June 09, 2022 12:00am June 16, 2022 10:52am Napoleon-3 Fatty Acids-Vitamin E (Fish Oil) 1,000 mg Capsule (2 sources) Start: 06-09-2022 End: 06-16-2022 take 1 capsule by mouth once daily Napoleon-3 Fatty Acids-Vitamin E (Fish Oil) 1,000 mg [...] unspecified] Onset: 3 06-17-2022 Chronic Cardiac dysrhythmias (16 sources) Paroxysmal atrial fibrillation; Translations: [Atrial fibrillation] Onset: 2 Chronic Complications of surgical procedures or medical care (1 source) Postprocedural hypothyroidism; 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 HYPOTHYROIDISM] Onset: 3 Chronic Conduction disorders (8 sources) Cardiac pacemaker in situ; Translations: [Presence of cardiac pacemaker] Onset: 3 06-09-2022 Chronic Congestive heart failure; nonhypertensive (1 source) Unspecified diastolic (congestive) heart failure; Translations: [UNSPECIFIED DIASTOLIC HEART FAILURE] Onset: 2 Chronic Coronary atherosclerosis and other heart disease (3 sources) Atherosclerotic heart disease of [place] coronary artery without angina pectoris; Translations: [ASHD [place] W/O ANGINA PECTORIS] Onset: 3 Chronic Coronary atherosclerosis and other [...] Chronic Occlusion or stenosis of precerebral arteries (3 sources) Carotid artery stenosis; Translations: [Occlusion and stenosis of unspecified carotid artery] Onset: 3 06-17-2022 Chronic Osteoarthritis (1 source) Unspecified osteoarthritis, unspecified site; Translations: [UNSPECIFIED OSTEOARTHRITIS UNS SITE] Onset: 3 Chronic Other aftercare (1 source) Other terminal gauger (current) drug therapy; Translations: [OTH PENITENTIARY CURRENT DRUG THERAPY] Onset: 3 Episodic Other aftercare (1 source) technician terminal and repeater (current) use of aspirin; Translations: [EQUIPMENT WASHER CURRENT USE OF ASPIRIN] Onset: 3 Episodic [...] Translations: [OTHER ABNORMAL GLUCOSE] Onset: 07-01-2021 Episodic Residual codes; unclassified (1 source) Insomnia, unspecified; Translations: [INSOMNIA UNSPECIFIED] Onset: 07-01-2021 Episodic Results Test Name Value Interpretation Reference Range Facility Office Visiton 04-17-2024 Follow-up visit [id number] Abdirahman Gomez 1940 F Date Provider Department Center 04/17/2024 Monico-SAMANTHA LAMB BRIA Saucedo [facility] Family History Problem Relation Age of Onset Aneurysm Mother Alcohol abuse Father Family Status - Relation Status Age at Mother Father Level of Service:19733 MA OFFICE/OUTPATIENT ESTABLISHED LOW MDM 20 MIN Normal [facility] Basic Metabolic Panelon 06-14 Anion gap [Moles/Vol] 16.1 mmol/L High 6.0-15.0 [facility] Comment on above: Performed By: #### C BC, BMP #### [facility] [address] [place] [address] [place] Calcium [Mass/Vol] 9.4 mg/dL Normal 8.2-10.2 [facility] Comment on above: Performed By: #### C BC, BMP #### [facility] [address] [place] [address] [place] Chloride [Moles/Vol] 102 mmol/L Normal 95-114 [facility] Comment on above: Performed By: #### C BC, BMP #### [facility] [address] [place] [address] [place] CO2 [Moles/Vol] 20.7 mmol/L Low 22.0-30.0 [facility] Comment on above: Performed By: #### C BC, BMP #### [facility] [address] Creatinine [Mass/Vol] 0.84 mg/dL Normal 0.44-1.[address] [facility] Comment on above: Performed By: #### C BC, BMP #### [facility] [address] [place] [address] [place] Creatinine Clr Calc Pharmacy 47.21 [facility] Comment on above: Result Comment: PERF ORMED BY: [place] [address] PATHOLOGIST METAL FILER PILAR VILLARREAL M.D. Performed By: #### C BC, BMP #### [address] Estimated GFR ( Rose > 60 [facility] Comment on above: Result Comment: GFR estimated reference range: According to KDOQI guidelines, <60 ml/min/1.73m2 is sufficient to diagnose a patient with chronic kidney disease. Performed By: #### C BC, BMP #### [address] Estimated GFR (Non- Am > 60 [facility] Comment on above: Performed By: #### C BC, BMP #### [address] Glucose [Mass/Vol] 104 mg/dL High 70-100 [facility] Comment on above: Result Comment: [place] Glucose Reference Range is dependent on time and content of last meal. Glucose of more than 200 mg/dL in a nonstressed, ambulatory subject supports the diagnosis of Diabetes Mellitus. ADA recommended reference range Performed By: #### C BC, BMP #### [address] Potassium [Moles/Vol] 3.8 mmol/L Normal 3.5-5.[address] [facility] Comment on above: Performed By: #### C BC, BMP #### [place] [address] [place] Sodium [Moles/Vol] 135 mmol/L Low 136-146 [facility] Comment on above: Performed By: #### C BC, BMP #### [facility] [address] Urea nitrogen [Mass/Vol] 10 mg/dL Normal 9-23 [facility] Comment on above: Performed By: #### C BC, BMP #### [facility] [address] [place] [address] [place] Basophils Auto (Bld) [#/Vol] Ordered By: Stiven Zaman on 06-23-2022 Basophils (Bld) [#/Vol] 0.1 10*3/uL 0.0-0.2 [facility] Basophils/100 WBC Auto (Bld) Ordered By: Stiven Zaman on 06-23-2022 Basophils/100 WBC (Bld) 0.8 % . [facility] Complete Blood Count Auto Di ffon 06-23-2022 Basophils (Bld) [#/Vol] 0.1 10*3/uL Normal 0.0-0.2 [facility] Comment on above: Result Comment: PERF ORMED BY: [place] [address] PATHOLOGIST METAL FILER PILAR VILLARREAL M.D. Performed By: #### C BC, BMP #### [address] Basophils/100 WBC (Bld) 0.8 % Normal . [facility] Comment on above: Performed By: #### C BC, BMP #### [facility] [address] [place] [address] [place] Eosinophils (Bld) [#/Vol] 0.3 10*3/uL Normal 0.0-0.45 [facility] Comment on above: Performed By: #### C BC, BMP #### [address] Eosinophils/100 WBC (Bld) 3.2 % Normal . [facility] Comment on above: Performed By: #### C BC, BMP #### [address] Erythrocyte distribution width (RBC) [Ratio] 13.3 % Normal 11.9-15.3 [facility] Comment on above: Performed By: #### C BC, BMP #### [address] Hematocrit (Bld) [Volume fraction] 38.3 % Normal 34.0-46.4 [facility] Comment on above: Performed By: #### C BC, BMP #### [address] Hemoglobin (Bld) [Mass/Vol] 12.8 g/dL Normal 11.8-15.4 [facility] Comment on above: Performed By: #### C BC, BMP #### [address] Lymphocytes (Bld) [#/Vol] 2.6 10*3/uL Normal 1.00-4.8 [facility] Comment on above: Performed By: #### C BC, BMP #### [address] Lymphocytes/100 WBC (Bld) 31.9 % Normal . [facility] Comment on above: Performed By: #### C BC, BMP #### [address] MCH (RBC) [Entitic mass] 34.1 pg Normal 24.7-34.3 [facility] Comment on above: Performed By: #### C BC, BMP #### [address] MCV (RBC) [Entitic vol] 102.2 fL High 80-100 [facility] Comment on above: Performed By: #### C BC, BMP #### [address] Mean Corpuscular HGB Conc 33.4 g/dL Normal 32.0-35.0 [facility] Comment on above: Performed By: #### C BC, BMP #### [address] Monocytes (Bld) [#/Vol] 0.7 10*3/uL Normal 0.0-0.8 [facility] Comment on above: Performed By: #### C BC, BMP #### [facility] [address] Monocytes/100 WBC (Bld) 8.4 % Normal . [facility] Comment on above: Performed By: #### C BC, BMP #### [facility] [address] Neutrophils (Bld) [#/Vol] 4.5 10*3/uL Normal 1.8-7.7 [facility] Comment on above: Performed By: #### C BC, BMP #### [address] Neutrophils/100 WBC (Bld) 55.7 % Normal . [facility] Comment on above: Performed By: #### C BC, BMP #### [address] NRBC% 0.1 /100{WBC} Normal 0-0.5 [facility] Comment on above: Performed By: #### C BC, BMP #### [address] Platelet mean volume (Bld) [Entitic vol] 8.0 fL Normal 6.3-10.7 [facility] Comment on above: Performed By: #### C BC, BMP #### [place] [address] [place] Platelets (Bld) [#/Vol] 272 10*3/uL Normal 150-450 [facility] Comment on above: Performed By: #### C BC, BMP #### [facility] [address] [place] [address] [place] RBC (Bld) [#/Vol] 3.75 10*6/uL Normal 3.60-5.00 [facility] Comment on above: Performed By: #### C BC, BMP #### [place] [address] [place] WBC (Bld) [#/Vol] 8.1 10*3/uL Normal 3.8-11.6 [facility] Comment on above: Performed By: #### C BC, BMP #### [facility] [address] [place] [address] [facility] Creatinine and Glomerular fi ltration rate.predicted panel (S/P/Bld)Ordered By: Stiven Zaman on 06-23-2022 Creatinine [Mass/Vol] 0.84 mg/dL 0.44-1.[address] [facility] Eosinophils Auto (Bld) [#/Vo l]Ordered By: Stiven Zaman on 06-23-2022 Eosinophils (Bld) [#/Vol] 0.3 10*3/uL 0.0-0.45 [facility] Eosinophils/100 WBC Auto (Bl d)Ordered By: Stiven Zaman on 06-23-2022 Eosinophils/100 WBC (Bld) 3.2 % . [facility] Erythrocyte distribution wid th Auto (RBC) [Ratio]Ordered By: Stiven Zaman on 06-23-2022 Erythrocyte distribution width (RBC) [Ratio] 13.3 % 11.9-15.3 [facility] Estimated glomerular filtrat ion rate (GFR) non- AmericanOrdered By: Stiven Zaman on 06-23-2022 GFR/1.73 sq M.predicted among non-blacks MDRD (S/P/Bld) [Vol rate/Area] > 60 mL/Min [facility] Hematocrit Auto (Bld) [Volum e fraction]Ordered By: Stiven Zaman on 06-23-2022 Hematocrit (Bld) [Volume fraction] 38.3 % 34.0-46.4 [facility] Hemoglobin [Mass/volume] in BloodOrdered By: Stiven Zaman on 06-23-2022 Hemoglobin (Bld) [Mass/Vol] 12.8 g/dL 11.8-15.4 [facility] Leukocytes [#/volume] correc zoe for nucleated erythrocytes in Blood by Automated counOrdered By: Stiven Zaman on 06-23-2022 WBC corrected for nucl RBC Auto (Bld) [#/Vol] 8.1 10*3/uL 3.8-11.6 [facility] Lymphocytes Auto (Bld) [#/Vo l]Ordered By: Stiven Zaman on 06-23-2022 Lymphocytes (Bld) [#/Vol] 2.6 10*3/uL 1.00-4.8 [facility] Lymphocytes/100 WBC Auto (Bl d)Ordered By: Stiven Zaman on 06-23-2022 Lymphocytes/100 WBC (Bld) 31.9 % . [facility] MCH Auto (RBC) [Entitic mass ]Ordered By: Stiven Zaman on 06-23-2022 MCH (RBC) [Entitic mass] 34.1 pg 24.7-34.3 [facility] MCHC Auto (RBC) [Mass/Vol]Or dered By: Stiven Zaman on 06-23-2022 MCHC (RBC) [Mass/Vol] 33.4 g/dL 32.0-35.0 [facility] MCV Auto (RBC) [Entitic vol] Ordered By: Stiven Zaman on 06-23-2022 MCV (RBC) [Entitic vol] 102.2 fL 80-100 [facility] Monocytes Auto (Bld) [#/Vol] Ordered By: Stiven Zaman on 06-23-2022 Monocytes (Bld) [#/Vol] 0.7 10*3/uL 0.0-0.8 [facility] Monocytes/100 WBC Auto (Bld) Ordered By: Stiven Zaman on 06-23-2022 Monocytes/100 WBC (Bld) 8.4 % . [facility] Neutrophils Auto (Bld) [#/Vo l]Ordered By: Stiven Zaman on 06-23-2022 Neutrophils (Bld) [#/Vol] 4.5 10*3/uL 1.8-7.7 [facility] Neutrophils/100 WBC Auto (Bl d)Ordered By: Stiven Zaman on 06-23-2022 Neutrophils/100 WBC (Bld) 55.7 % . [facility] No Panel InformationOrdered By: Stiven Zaman on 06-23-2022 Estimated GFR () > 60 mL/Min [facility] Comment on above: GFR estimated refere nce range: According to KDOQI guidelines, <60 ml/min/1.73m2 is sufficient to diagnose a patient with chronic kidney disease. Pharmacy Creatinine Clearance (Chem 47.21 [facility] Nucleated erythrocytes [Pres ence] in Blood by Automated countOrdered By: Stiven Zaman on 06-23-2022 Nucleated RBC Auto Ql (Bld) 0.1 /100{WBC} 0-0.5 [facility] Platelet mean volume Auto (B ld) [Entitic vol]Ordered By: Stiven Zaman on 06-23-2022 Platelet mean volume (Bld) [Entitic vol] 8.0 fL 6.3-10.7 [facility] Platelets Auto (Bld) [#/Vol] Ordered By: Stiven Zaman on 06-23-2022 Platelets (Bld) [#/Vol] 272 10*3/uL 150-450 [facility] RBC Auto (Bld) [#/Vol]Ordere d By: Stiven Zaman on 06-23-2022 RBC (Bld) [#/Vol] 3.75 10*6/uL 3.60-5.00 [facility] Serum or plasma anion gap de terminationOrdered By: Stiven Zaman on 06-23-2022 Anion gap [Moles/Vol] 16.1 mmol/L 6.0-15.0 [facility] Serum or plasma calcium jerrod urement (mass/volume)Ordered By: Stiven Zaman on 06-23-2022 Calcium [Mass/Vol] 9.4 mg/dL 8.2-10.2 [facility] Serum or plasma chloride salma surement (moles/volume)Ordered By: Stiven Zaman on 06-23-2022 Chloride [Moles/Vol] 102 mmol/L 95-114 [facility] Serum or plasma glucose jerrod urement [...] on 06-23-2022 Potassium [Moles/Vol] 3.8 mmol/L 3.5-5.[address] [facility] Serum or plasma sodium measu rement (moles/volume)Ordered By: Stiven Zaman on 06-23-2022 Sodium [Moles/Vol] 135 mmol/L 136-146 [facility] Serum or plasma total carbon dioxide measurement (moles/volume)Ordered By: Stiven Zaman on 06-23-2022 CO2 [Moles/Vol] 20.7 mmol/L 22.0-30.0 [facility] Serum or plasma urea nitroge n measurement (mass/volume)Ordered By: Stiven Zaman on 06-23-2022 Urea nitrogen [Mass/Vol] 10 mg/dL 9-23 [facility] WBC Auto (Bld) [#/Vol]Ordere d By: Stiven Zaman on 06-23-2022 WBC (Bld) [#/Vol] 8.1 10*3/uL 3.8-11.6 [facility] Glucose Glucometer (BldC) [M ass/Vol]Ordered By: Stiven Zaman on 06-21-2022 Glucose [Mass/Vol] 108 mg/dL [facility] Comment on above: Random Glucose Refer ence Range is dependent on time and content of last meal. Glucose of more than 200 mg/dL in a nonstressed, ambulatory subject supports the diagnosis of Diabetes Mellitus. Glucose Poct Glucometerson 0 06-21-2022 Glucose [Mass/Vol] 108 mg/dL Normal [facility] Comment on above: Result Comment: [facility] Glucose Reference Range is dependent on time and content of last meal. Glucose of more than 200 mg/dL in a nonstressed, ambulatory subject supports the diagnosis of Diabetes Mellitus. PERFORMED BY: [facility] [address] [place] [address] PATHOLOGIST METAL FILER PILAR VILLARREAL M.D. Performed By: #### G KIRA #### Point of Care testing , Glucose Poct Glucometerson 0 06-20-2022 Glucose [Mass/Vol] 93 mg/dL Normal [facility] Comment on above: Result Comment: [facility] Glucose Reference Range is dependent on time and content of last meal. Glucose of more than 200 mg/dL in a nonstressed, ambulatory subject supports the diagnosis of Diabetes Mellitus. PERFORMED BY: [place] [address] PATHOLOGIST METAL FILER PILAR VILLARREAL M.D. Performed By: #### L IPID, A1C WTH eA #### [address] Glucose [Mass/Vol] 107 mg/dL Normal [facility] Comment on above: Result Comment: [place] om Glucose Reference Range is dependent on time and content of last meal. Glucose of more than 200 mg/dL in a nonstressed, ambulatory subject supports the diagnosis of Diabetes Mellitus. PERFORMED BY: [place] [address] PATHOLOGIST METAL FILER PILAR VILLARREAL M.D. Performed By: #### G LULS #### Point of Care testing , Glucose Poct Glucometerson 0 06-19-2022 Commemt1 [facility] Comment on above: Result Comment: Glu2 : WILL NOTIFY DR/RN Performed By: #### G LULS #### Point of Care testing , Commemt2 Cleaned Meter [facility] Comment on above: Result Comment: PERF ORMED BY: [place] [address] PATHOLOGIST METAL FILER PILAR VILLARREAL M.D. Performed By: #### G LULS #### Point of Care testing , Glucose [Mass/Vol] 118 mg/dL [facility] Comment on above: Result Comment: [place] om Glucose Reference Range is dependent on time and content of last meal. Glucose of more than 200 mg/dL in a nonstressed, ambulatory subject supports the diagnosis of Diabetes Mellitus. Performed By: #### G LULS #### Point of Care testing , Glucose [Mass/Vol] 97 mg/dL [facility] Comment on above: Result Comment: [place] om Glucose Reference Range is dependent on time and content of last meal. Glucose of more than 200 mg/dL in a nonstressed, ambulatory subject supports the diagnosis of Diabetes Mellitus. PERFORMED BY: [place] [id number] PATHOLOGIST METAL FILER PILAR VILLARREAL M.D. Performed By: #### G LULS #### Point of Care testing , No Panel InformationOrdered By: Stiven Zaman on 06-19-2022 Bedside Glucose #2 Comment Cleaned meter [facility] Bedside Glucose Comment See comment [facility] Comment on above: Glu2: WILL NOTIFY DR /RN XR hip LT min 2V(w/wo pelvis )*on 06-19-2022 XR hip LT min 2V(w/wo pelvis)* [facility] [place] [address] [place] [address] XRay Report Signed Patient: Abdirahman Gomez MR#: [id number] : 1940 Acct:[id number] Age/Sex: 81 / F ADM Date: 06/16/22 Loc: Room: [address] [place] [address] Type: ADM IN Attending Dr: Stiven Zaman [...] PROCESS.. Impression dictated by: Stiven Beasley Jr., D.OHuma06/19/2022 3:01 PM Dictation Location: [place] [address] Transcribed By: [facility] 06/19/22 1501 Dictated By: Stiven Beasley Jr, DO 06/19/22 1500 Signed By: 06/19/22 1501 Normal [facility] Glucose Poct Glucometerson 0 06-18-2022 Commemt1 Glu2: Cleaned Meter Normal [facility] Comment on above: Result Comment: PERF ORMED BY: [place] [address] PATHOLOGIST METAL FILER PILAR VILLARREAL M.D. Performed By: #### G LULS #### Point of Care testing , Glucose [Mass/Vol] 105 mg/dL Normal [facility] Comment on above: Result Comment: [place] om Glucose Reference Range is dependent on time and content of last meal. Glucose of more than 200 mg/dL in a nonstressed, ambulatory subject supports the diagnosis of Diabetes Mellitus. Performed By: #### G LULS #### Point of Care testing , Glucose [Mass/Vol] 107 mg/dL Normal [facility] Comment on above: Result Comment: [place] om Glucose Reference Range is dependent on time and content of last meal. Glucose of more than 200 mg/dL in a nonstressed, ambulatory subject supports the diagnosis of Diabetes Mellitus. PERFORMED BY: [place] [address] PATHOLOGIST METAL FILER PILAR VILLARREAL M.D. Performed By: #### C BC, BMP #### [place] [id number] [facility] US carotid doppler BIon 0 US carotid doppler BI [facility] [place] [address] [place] [address] Ultrasound Report Signed Patient: Abdirahman Gomez MR#: [id number] : 1940 Acct:[id number] Age/Sex: 81 / F ADM Date: 06/09/22 Loc: Room: [address] [place] [address] Type: DIS IN Attending Dr: Frida De La Cruz MD Ordering Provider: Nathanile Castillo MD Date of Service: 06/12/22 US/US [...] Bebo Howell MD06/18/2022 4:50 PM Dictation Location: [place] [address] Tech: Margaret Rust Transcribed By: CHANDRAKANT 06/18/221649 Dictated By: Bebo Howell MD 06/18/22 164 Signed By: 06/18/221649 [facility] Albumin [Mass/volume] in Ser um or PlasmaOrdered By: Stiven Zaman on 01-04-2023 Albumin [Mass/Vol] 3.3 g/dL 3.2-5.5 [facility] Complete Blood Count Auto Di ffon 06-17-2022 Basophils (Bld) [#/Vol] 0.2 10*3/uL Normal 0.0-0.2 [facility] Comment on above: Result Comment: PERF ORMED BY: [facility] [place] [address] PATHOLOGIST METAL FILER PILAR VILLARREAL M.D. Performed By: #### G LULS #### Point of Care testing , Basophils/100 WBC (Bld) 1.4 % Normal . [facility] Comment on above: Performed By: #### G LULS #### Point of Care testing , Eosinophils (Bld) [#/Vol] 0.3 10*3/uL Normal 0.0-0.45 [facility] Comment on above: Performed By: #### G LULS #### Point of Care testing , Eosinophils/100 WBC (Bld) 2.4 % Normal . [facility] Comment on above: Performed By: #### G LULS #### Point of Care testing , Erythrocyte distribution width (RBC) [Ratio] 13.2 % Normal 11.9-15.3 [facility] Comment on above: Performed By: #### G LULS #### Point of Care testing , Hematocrit (Bld) [Volume fraction] 38.9 % Normal 34.0-46.4 [facility] Comment on above: Performed By: #### G LULS #### Point of Care testing , Hemoglobin (Bld) [Mass/Vol] 12.8 g/dL Normal 11.8-15.4 [facility] Comment on above: Performed By: #### G LULS #### Point of Care testing , Lymphocytes (Bld) [#/Vol] 3.2 10*3/uL Normal 1.00-4.8 [facility] Comment on above: Performed By: #### G LULS #### Point of Care testing , Lymphocytes/100 WBC (Bld) 29.1 % Normal . [facility] Comment on above: Performed By: #### G LULS #### Point of Care testing , MCH (RBC) [Entitic mass] 33.5 pg Normal 24.7-34.3 [facility] Comment on above: Performed By: #### G LULS #### Point of Care testing , MCV (RBC) [Entitic vol] 102.3 fL High 80-100 [facility] Comment on above: Performed By: #### G LULS #### Point of Care testing , Mean Corpuscular HGB Conc 32.8 g/dL Normal 32.0-35.0 [facility] Comment on above: Performed By: #### G CARLEENLS #### Point of Care testing , Monocytes (Bld) [#/Vol] 1.0 10*3/uL High 0.0-0.8 [facility] Comment on above: Performed By: #### G CARLEENLS #### Point of Care testing , Monocytes/100 WBC (Bld) 9.4 % Normal . [facility] Comment on above: Performed By: #### G CARLEENLS #### Point of Care testing , Neutrophils (Bld) [#/Vol] 6.3 10*3/uL Normal 1.8-7.7 [facility] Comment on above: Performed By: #### G CARLEENLS #### Point of Care testing , Neutrophils/100 WBC (Bld) 57.7 % Normal . [facility] Comment on above: Performed By: #### G CARLEENLS #### Point of Care testing , NRBC% 0.0 /100{WBC} Normal 0-0.5 [facility] Comment on above: Performed By: #### G CARLEENLS #### Point of Care testing , Platelet mean volume (Bld) [Entitic vol] 7.5 fL Normal 6.3-10.7 [facility] Comment on above: Performed By: #### G LULS #### Point of Care testing , Platelets (Bld) [#/Vol] 309 10*3/uL Normal 150-450 [facility] Comment on above: Performed By: #### G LULS #### Point of Care testing , RBC (Bld) [#/Vol] 3.81 10*6/uL Normal 3.60-5.00 [facility] Comment on above: Performed By: #### Ginna MALONE #### Point of Care testing , WBC (Bld) [#/Vol] 10.9 10*3/uL Normal 3.8-11.6 [facility] Comment on above: Performed By: #### Ginna MALONE #### Point of Care testing , Comprehensive Metabolic Pane jazmin 06-17-2022 Albumin [Mass/Vol] 3.3 g/dL Normal 3.2-5.5 [facility] Comment on above: Performed By: #### Ginna MALONE #### Point of Care testing , Albumin/Globulin [Mass ratio] 0.9 {ratio} Normal [facility] Comment on above: Performed By: #### Ginna MALONE #### Point of Care testing , ALP [Catalytic activity/Vol] 76 U/L Normal 32-92 [facility] Comment on above: Performed By: #### Ginna MALONE #### Point of Care testing , ALT [Catalytic activity/Vol] 39 U/L Normal 10-60 [facility] Comment on above: Performed By: #### Ginna MALONE #### Point of Care testing , Anion gap [Moles/Vol] 13.1 mmol/L Normal 6.0-15.0 [facility] Comment on above: Performed By: #### Ginna MALONE #### Point of Care testing , AST [Catalytic activity/Vol] 52 U/L High 10-42 [facility] Comment on above: Performed By: #### Ginna MALONE #### Point of Care testing , Bilirubin [Mass/Vol] 0.5 mg/dL Normal 0.3-1.2 [facility] Comment on above: Performed By: #### Ginna MALONE #### Point of Care testing , Calcium [Mass/Vol] 9.0 mg/dL Normal 8.2-10.2 [facility] Comment on above: Performed By: #### Ginna MALONE #### Point of Care testing , Chloride [Moles/Vol] 106 mmol/L Normal 95-114 [facility] Comment on above: Performed By: #### G CARLEENLS #### Point of Care testing , CO2 [Moles/Vol] 20.6 mmol/L Low 22.0-30.0 [facility] Comment on above: Performed By: #### G CARLEENLS #### Point of Care testing , Creatinine [Mass/Vol] 0.78 mg/dL Normal 0.44-1.[address] [facility] Comment on above: Performed By: #### G LULS #### Point of Care testing , Creatinine Clr Calc Pharmacy 50.13 [facility] Comment on above: Performed By: #### G LULS #### Point of Care testing , Estimated GFR ( Rose > 60 [facility] Comment on above: Result Comment: GFR estimated reference range: According to KDOQI guidelines, <60 ml/min/1.73m2 is sufficient to diagnose a patient with chronic kidney disease. Performed By: #### G CARLEENLS #### Point of Care testing , Estimated GFR (Non- Am > 60 [facility] Comment on above: Performed By: #### G CARLEENLS #### Point of Care testing , Globulin (S) [Mass/Vol] 3.6 g/dL Normal [facility] Comment on above: Performed By: #### G CARLEENLS #### Point of Care testing , Glucose [Mass/Vol] 107 mg/dL High 70-100 [facility] Comment on above: Result Comment: [facility] Glucose Reference Range is dependent on time and content of last meal. Glucose of more than 200 mg/dL in a nonstressed, ambulatory subject supports the diagnosis of Diabetes Mellitus. ADA recommended reference range Performed By: #### G LULS #### Point of Care testing , Potassium [Moles/Vol] 3.7 mmol/L Normal 3.5-5.[address] [facility] Comment on above: Performed By: [...] Urea nitrogen [Mass/Vol] 13 mg/dL Normal 9-23 [facility] Comment on above: Performed By: #### G LULS #### Point of Care testing , Globulin Calc (S) [Mass/Vol] Ordered By: Stiven Zaman on 06-17-2022 Globulin (S) [Mass/Vol] 3.6 g/dL [facility] Glucose Poct Glucometerson 0 06-17-2022 Commemt1 [facility] Comment on above: Result Comment: Glu2 : WILL NOTIFY DR/RN Performed By: #### G LULS #### Point of Care testing , Commemt2 Cleaned Meter [facility] Comment on above: Result Comment: PERF ORMED BY: [facility] [address] [place] [address] PATHOLOGIST METAL FILER PILRA VILLARREAL M.D. Performed By: #### G LULS #### Point of Care testing , Glucose [Mass/Vol] 121 mg/dL Normal [facility] Comment on above: Result Comment: [facility] Glucose Reference Range is dependent on time and content of last meal. Glucose of more than 200 mg/dL in a nonstressed, ambulatory subject supports the diagnosis of Diabetes Mellitus. Performed By: #### G LULS #### Point of Care testing , Glucose [Mass/Vol] 105 mg/dL Normal [facility] Comment on above: Result Comment: [place] Glucose Reference Range is dependent on time and content of last meal. Glucose of more than 200 mg/dL in a nonstressed, ambulatory subject supports the diagnosis of Diabetes Mellitus. PERFORMED BY: [facility] [address] [place] [address] PATHOLOGIST METAL FILER PILAR VILLARREAL M.D. Performed By: #### G LULS #### Point of Care testing , Prealbuminon 06-17-2022 Prealbumin [Mass/Vol] 24.1 mg/dL Normal 18.0-38.[address] [facility] Comment on above: Result Comment: PERF ORMED BY: [facility] [address] [place] [address] PATHOLOGIST METAL FILER PILAR VILLARREAL M.D. Performed By: #### L IPID, A1C WTH eA #### [facility] [address] Protein [Mass/volume] in Ser um or PlasmaOrdered By: Stiven Zaman on 06-17-2022 Protein [Mass/Vol] 6.9 g/dL 6.1-7.9 [facility] Serum or plasma alanine carney otransferase measurement without P-5'-P (enzymatic activiOrdered By: Stiven Zaman on 06-17-2022 ALT No additional P-5'-P [Catalytic activity/Vol] 39 U/L 10-60 [facility] Serum or plasma albumin/glob ulin mass ratioOrdered By: Stiven Zaman on 06-17-2022 Albumin/Globulin [Mass ratio] 0.9 {ratio} [facility] Serum or plasma alkaline ayad sphatase measurement (enzymatic activity/volume)Ordered By: Stiven Zaman on 06-17-2022 ALP [Catalytic activity/Vol] 76 U/L 32-92 [facility] Serum or plasma aspartate am inotransferase measurement (enzymatic activity/volume)Ordered By: Stiven Zaman on 06-17-2022 AST [Catalytic activity/Vol] 52 U/L 10-42 [facility] Serum or plasma prealbumin m easurement (mass/volume)Ordered By: Stiven Zaman on 06-17-2022 Prealbumin [Mass/Vol] 24.1 mg/dL 18.0-38.[address] [facility] Serum or plasma total biliru bin measurement (mass/volume)Ordered By: Stiven Zaman on 06-17-2022 Bilirubin [Mass/Vol] 0.5 mg/dL 0.3-1.2 [facility] Basic Metabolic Panelon Anion gap [Moles/Vol] 14.0 mmol/L Normal 6.0-15.0 [facility] Comment on above: Performed By: #### L IPID, A1C WT eA #### [facility] [address] [place] [address] [place] Calcium [Mass/Vol] 9.5 mg/dL Normal 8.2-10.2 [facility] Comment on above: Performed By: #### L IPID, A1C WTH eA #### [facility] [address] [place] [address] [place] Chloride [Moles/Vol] 102 mmol/L Normal 95-114 [facility] Comment on above: Performed By: #### L IPID, A1C WT eA #### [facility] [address] CO2 [Moles/Vol] 21.7 mmol/L Low 22.0-30.0 [facility] Comment on above: Performed By: #### L IPID, A1C WT eA #### [facility] [address] [place] [address] Creatinine [Mass/Vol] 0.83 mg/dL Normal 0.44-1.[address] [facility] Comment on above: Performed By: #### L IPID, A1C WT eA #### [facility] [address] [place] [address] [place] Creatinine Clr Calc Pharmacy 48.32 [facility] Comment on above: Result Comment: PERF ORMED BY: [place] [address] PATHOLOGIST METAL FILER PILAR VILLARREAL M.D. Performed By: #### L IPID, A1C WT eA #### [facility] [address] [place] [address] Estimated GFR ( Rose > 60 [facility] Comment on above: Result Comment: GFR estimated reference range: According to KDOQI guidelines, <60 ml/min/1.73m2 is sufficient to diagnose a patient with chronic kidney disease. Performed By: #### L IPID, A1C WT eA #### [facility] [address] [place] [address] [place] Estimated GFR (Non- Am > 60 [facility] Comment on above: Performed By: #### L IPID, A1C WTH eA #### [facility] [address] [place] [address] [place] Glucose [Mass/Vol] 142 mg/dL High 70-100 [facility] Comment on above: Result Comment: [facility] Glucose Reference Range is dependent on time and content of last meal. Glucose of more than 200 mg/dL in a nonstressed, ambulatory subject supports the diagnosis of Diabetes Mellitus. ADA recommended reference range Performed By: #### L IPID, A1C WTH eA #### [facility] [address] Potassium [Moles/Vol] 3.7 mmol/L Normal 3.5-5.[address] [facility] Comment on above: Performed By: #### L IPID, A1C WTH eA #### [facility] [address] [place] [address] [place] Sodium [Moles/Vol] 134 mmol/L Low 136-146 [facility] Comment on above: Performed By: #### L IPID, A1C WTH eA #### [facility] [address] [place] [address] [place] Urea nitrogen [Mass/Vol] 15 mg/dL Normal 9-23 [facility] Comment on above: Performed By: #### L IPID, A1C WTH eA #### [facility] [address] [place] [address] [place] Basophils Auto (Bld) [#/Vol] Ordered By: Frida De La Cruz on 06-15-2022 Basophils (Bld) [#/Vol] 0.1 10*3/uL 0.0-0.2 [facility] Basophils/100 WBC Auto (Bld) Ordered By: Frida De La Cruz on 06-15-2022 Basophils/100 WBC (Bld) 1.2 % . [facility] Complete Blood Count Auto Di ffon 06-15-2022 Basophils (Bld) [#/Vol] 0.1 10*3/uL Normal 0.0-0.2 [facility] Comment on above: Result Comment: PERF ORMED BY: [place] [address] PATHOLOGIST METAL FILER PILAR VILLARREAL M.D. Performed By: #### L IPID, [address] eA #### [address] Basophils/100 WBC (Bld) 1.2 % Normal . [facility] Comment on above: Performed By: #### L IPID, A1C WT eA #### [address] Eosinophils (Bld) [#/Vol] 0.3 10*3/uL Normal 0.0-0.45 [facility] Comment on above: Performed By: #### L IPID, [facility] WT eA #### [address] Eosinophils/100 WBC (Bld) 2.6 % Normal . [facility] Comment on above: Performed By: #### L IPID, [address] eA #### [address] Erythrocyte distribution width (RBC) [Ratio] 13.7 % Normal 11.9-15.3 [facility] Comment on above: Performed By: #### L IPID, [address] eA #### [address] Hematocrit (Bld) [Volume fraction] 41.4 % Normal 34.0-46.4 [facility] Comment on above: Performed By: #### L IPID, [facility] WT eA #### [place] [address] [place] Hemoglobin (Bld) [Mass/Vol] 13.6 g/dL Normal 11.8-15.4 [facility] Comment on above: Performed By: #### L IPID, A1C WT eA #### [place] [address] [place] Lymphocytes (Bld) [#/Vol] 2.9 10*3/uL Normal 1.00-4.8 [facility] Comment on above: Performed By: #### L IPID, [facility] WT eA #### [facility] [address] [place] [address] [place] Lymphocytes/100 WBC (Bld) 27.7 % Normal . [facility] Comment on above: Performed By: #### L IPID, A1C WT eA #### [facility] [address] [place] [id number] [place] MCH (RBC) [Entitic mass] 33.9 pg Normal 24.7-34.3 [facility] Comment on above: Performed By: #### L IPID, [address] eA #### [facility] [address] [place] [address] [place] MCV (RBC) [Entitic vol] 103.3 fL High 80-100 [facility] Comment on above: Performed By: #### L IPID, [facility] WT eA #### [facility] [address] Mean Corpuscular HGB Conc 32.8 g/dL Normal 32.0-35.0 [facility] Comment on above: Performed By: #### L IPID, [address] eA #### [facility] [address] [place] [address] [place] Monocytes (Bld) [#/Vol] 0.7 10*3/uL Normal 0.0-0.8 [facility] Comment on above: Performed By: #### L IPID, [facility] WT eA #### [facility] [address] [place] [address] [place] Monocytes/100 WBC (Bld) 6.9 % Normal . [facility] Comment on above: Performed By: #### L IPID, A1C WT eA #### [facility] [address] [place] [address] [place] Neutrophils (Bld) [#/Vol] 6.6 10*3/uL Normal 1.8-7.7 [facility] Comment on above: Performed By: #### L IPID, A1C WT eA #### [facility] [address] [place] [id number] [place] Neutrophils/100 WBC (Bld) 61.6 % Normal . [facility] Comment on above: Performed By: #### L IPID, [address] eA #### [facility] [address] NRBC% 0.1 /100{WBC} Normal 0-0.5 [facility] Comment on above: Performed By: #### L IPID, [address] eA #### [address] Platelet mean volume (Bld) [Entitic vol] 8.0 fL Normal 6.3-10.7 [facility] Comment on above: Performed By: #### L IPID, [address] eA #### [address] Platelets (Bld) [#/Vol] 282 10*3/uL Normal 150-450 [facility] Comment on above: Performed By: #### L IPID, [address] eA #### [address] RBC (Bld) [#/Vol] 4.01 10*6/uL Normal 3.60-5.00 [facility] Comment on above: Performed By: #### L IPID, [address] eA #### [address] WBC (Bld) [#/Vol] 10.7 10*3/uL Normal 3.8-11.6 [facility] Comment on above: Performed By: #### L IPID, [address] eA #### [address] Creatinine and Glomerular fi ltration rate.predicted panel (S/P/Bld)Ordered By: Frida De La Cruz on 06-15-2022 Creatinine [Mass/Vol] 0.83 mg/dL 0.44-1.[address] [facility] Eosinophils Auto (Bld) [#/Vo l]Ordered By: Frida De La Cruz on 06-15-2022 Eosinophils (Bld) [#/Vol] 0.3 10*3/uL 0.0-0.45 [facility] Eosinophils/100 WBC Auto (Bl d)Ordered By: Frida De La Cruz on 06-15-2022 Eosinophils/100 WBC (Bld) 2.6 % . [facility] Erythrocyte distribution wid th Auto (RBC) [Ratio]Ordered By: Frida De La Cruz on 06-15-2022 Erythrocyte distribution width (RBC) [Ratio] 13.7 % 11.9-15.3 [facility] Estimated glomerular filtrat ion rate (GFR) non- AmericanOrdered By: Frida De La Cruz on 06-15-2022 GFR/1.73 sq M.predicted among non-blacks MDRD (S/P/Bld) [Vol rate/Area] > 60 mL/Min [facility] Hematocrit Auto (Bld) [Volum e fraction]Ordered By: Frida De La Cruz on 06-15-2022 Hematocrit (Bld) [Volume fraction] 41.4 % 34.0-46.4 [facility] Hemoglobin [Mass/volume] in BloodOrdered By: Frida De La Cruz on 06-15-2022 Hemoglobin (Bld) [Mass/Vol] 13.6 g/dL 11.8-15.4 [facility] Leukocytes [#/volume] correc zoe for nucleated erythrocytes in Blood by Automated counOrdered By: Frida De La Cruz on 06-15-2022 WBC corrected for nucl RBC Auto (Bld) [#/Vol] 10.7 10*3/uL 3.8-11.6 [facility] Lymphocytes Auto (Bld) [#/Vo l]Ordered By: Frida De La Cruz on 06-15-2022 Lymphocytes (Bld) [#/Vol] 2.9 10*3/uL 1.00-4.8 [facility] Lymphocytes/100 WBC Auto (Bl d)Ordered By: Frida De La Cruz on 06-15-2022 Lymphocytes/100 WBC (Bld) 27.7 % . [facility] MCH Auto (RBC) [Entitic mass ]Ordered By: Frida De La Cruz on 06-15-2022 MCH (RBC) [Entitic mass] 33.9 pg 24.7-34.3 [facility] MCHC Auto (RBC) [Mass/Vol]Or dered By: Frida De La Cruz on 06-15-2022 MCHC (RBC) [Mass/Vol] 32.8 g/dL 32.0-35.[address] [facility] MCV Auto (RBC) [Entitic vol] Ordered By: Frida De La Cruz on 06-15-2022 MCV (RBC) [Entitic vol] 103.3 fL 80-100 [facility] Monocytes Auto (Bld) [#/Vol] Ordered By: Frida De La Cruz on 06-15-2022 Monocytes (Bld) [#/Vol] 0.7 10*3/uL 0.0-0.8 [facility] Monocytes/100 WBC Auto (Bld) Ordered By: Frida De La Cruz on 06-15-2022 Monocytes/100 WBC (Bld) 6.9 % . [facility] Neutrophils Auto (Bld) [#/Vo l]Ordered By: Frida De La Cruz on 06-15-2022 Neutrophils (Bld) [#/Vol] 6.6 10*3/uL 1.8-7.7 [facility] Neutrophils/100 WBC Auto (Bl d)Ordered By: Frida De La Cruz on 06-15-2022 Neutrophils/100 WBC (Bld) 61.6 % . [facility] No Panel InformationOrdered By: Frida De La Cruz on 06-15-2022 Estimated GFR () > 60 mL/Min [facility] Comment on above: GFR estimated refere nce range: According to KDOQI guidelines, <60 ml/min/1.73m2 is sufficient to diagnose a patient with chronic kidney disease. Pharmacy Creatinine Clearance (Chem 48.32 [facility] Nucleated erythrocytes [Pres ence] in Blood by Automated countOrdered By: Frida De La Cruz on 06-15-2022 Nucleated RBC Auto Ql (Bld) 0.1 /100{WBC} 0-0.5 [facility] Platelet mean volume Auto (B ld) [Entitic vol]Ordered By: Frida De La Cruz on 06-15-2022 Platelet mean volume (Bld) [Entitic vol] 8.0 fL 6.3-10.7 [facility] Platelets Auto (Bld) [#/Vol] Ordered By: Frida De La Cruz on 06-15-2022 Platelets (Bld) [#/Vol] 282 10*3/uL 150-450 [facility] RBC Auto (Bld) [#/Vol]Ordere d By: Frida De La Cruz on 06-15-2022 RBC (Bld) [#/Vol] 4.01 10*6/uL 3.60-5.00 [facility] Serum or plasma anion gap de terminationOrdered By: Frida De La Cruz on 06-15-2022 Anion gap [Moles/Vol] 14.0 mmol/L 6.0-15.0 [facility] Serum or plasma calcium jerrod urement (mass/volume)Ordered By: Frida De La Cruz on 06-15-2022 Calcium [Mass/Vol] 9.5 mg/dL 8.2-10.2 [facility] Serum or plasma chloride salma surement (moles/volume)Ordered By: Frida De La Cruz on 06-15-2022 Chloride [Moles/Vol] 102 mmol/L 95-114 [facility] Serum or plasma glucose jerrod urement [...] on 06-15-2022 Potassium [Moles/Vol] 3.7 mmol/L 3.5-5.[address] [facility] Serum or plasma sodium measu rement (moles/volume)Ordered By: Frida De La Cruz on 06-15-2022 Sodium [Moles/Vol] 134 mmol/L 136-146 [facility] Serum or plasma total carbon dioxide measurement (moles/volume)Ordered By: Frida De La Cruz on 06-15-2022 CO2 [Moles/Vol] 21.7 mmol/L 22.0-30.0 [facility] Serum or plasma urea nitroge n measurement (mass/volume)Ordered By: Frida De La Cruz on 06-15-2022 Urea nitrogen [Mass/Vol] 15 mg/dL 03-06 [facility] WBC Auto (Bld) [#/Vol]Ordere d By: Frida De La Cruz on 06-15-2022 WBC (Bld) [#/Vol] 10.7 10*3/uL 3.8-11.6 [facility] ECG 12 lead ECGon 06-14-2022 ECG 12 lead ECG [facility] [place] [address] [place], [place] [id number] Electrocardiograph Report Signed Patient: Abdirahman Gomez MR#: [id number] : 1940 Acct:[id number] Age/Sex: 81 / F ADM Date: 06/09/22 Loc: Room: [address] [place] [address] Type: DIS IN Attending Dr: Frida De [...] Yoav Prado MD 0 06/15/22 0617 Normal [facility] Troponin I High Sensitivityo n 06-14-2022 Troponin I High Sensitivity 906 pg/mL Off scale high 0-15 [facility] Comment on above: Result Comment: Crit ical value result called at 1642 on 06/14/22 PERFORMED BY: [place] [address] PATHOLOGIST METAL FILER PILAR VILLARREAL M.D. Performed By: #### G KIRA #### Point of Care testing , Troponin I.cardiac [Mass/vol ume] in Serum or Plasma by High sensitivity methodOrdered By: Nathaniel Castillo on 06-14-2022 Troponin I.cardiac High sensitivity method [Mass/Vol] 906 pg/mL 0-15 [facility] Comment on above: Critical valueresult calledat 1642 on 06/14/22 A1C with Estimated Average Ginna tapia 06-13-2022 Glucose [Mass/Vol] 123 mg/dL Normal [facility] Comment on above: Result Comment: PERF ORMED BY: [place] [address] PATHOLOGIST METAL FILER IPLAR VILLARREAL M.D. Performed By: #### L IPID, A1C [facility] eA #### [facility] [address] [place] [address] HbA1c (Bld) [Mass fraction] 5.9 % High 4.3-5.6 [facility] Comment on above: Result Comment: Incr eased risk for diabetes: 5.7 - 6.4 diabetes: >6.4 glycemic control for adults with diabetes: <7.0 Performed By: #### L IPID, A1C WT eA #### [facility] [address] [place] [address] Cholesterol [Mass/volume] in Serum or PlasmaOrdered By: Nathaniel Castillo on 06-13-2022 Cholesterol [Mass/Vol] 150 mg/dL 140-200 [facility] Comment on above: Chol less than 200 m g/dl low riskChol 201-239 mg/dl borderline riskChol 240 mg/dl and greater high risk Cholesterol in LDL Calc [Mas s/Vol]Ordered By: Nathaniel Castillo on 06-13-2022 Cholesterol in LDL [Mass/Vol] 80 mg/dL 0-100 [facility] Comment on above: LDL ATP III CLASSIFI CATIONLDL less than 100 mg/dL OptimalLDL 100-129 mg/dL Near or above optimalLDL 130-159 mg/dL Borderline highLDL 160-189 mg/dL HighLDL greater than 189 mg/dL Very high Cholesterol in VLDL Calc [Ma ss/Vol]Ordered By: Nathaniel Castillo on 06-13-2022 Cholesterol in VLDL [Mass/Vol] 25 mg/dL [facility] ECG 12 lead ECGon 06-13-2022 ECG 12 lead ECG [facility] [place] [address] Electrocardiograph Report Signed Patient: Abdirahman Gomez MR#: [id number] : 1940 Acct:[id number] Age/Sex: 81 / F ADM Date: 06/09/22 Loc: Room: [address] [place] [address] Type: DIS IN Attending Dr: Frida De [...] By Ousmane Epstein DO 06/15 1119 Normal [facility] Glucose mean value [Mass/vol ume] in Blood Estimated from glycated hemoglobinOrdered By: Nathaniel Castillo on 06-13-2022 Average glucose Estimated from glycated hemoglobin (Bld) [Mass/Vol] 123 mg/dL [facility] Hemoglobin A1c percentageOrd ered By: Nathaniel Castillo on 06-13-2022 HbA1c (Bld) [Mass fraction] 5.9 % 4.3-5.6 [facility] Comment on above: Increased risk for d iabetes: 5.7 - 6.4diabetes: >6.4glycemic control for adults with diabetes: <7.0 Lipid Panelon 06-13-2022 Cholesterol [Mass/Vol] 150 mg/dL Normal 140-200 [facility] Comment on above: Result Comment: Chol less than 200 mg/dl low risk Chol 201-239 mg/dl borderline risk Chol 240 mg/dl and greater high risk Performed By: #### L IPID, A1C WT eA #### [facility] [address] Cholesterol in HDL [Mass/Vol] 45 mg/dL Normal 35-85 [facility] Comment on above: Result Comment: HDL CHOL ATP-III CLASSIFICATION Cardiovascular Risk HDL > or equal to 60 mg/dL LOW HDL < 40 mg/dL HIGH Performed By: #### L IPID, [address] eA #### [facility] [address] Cholesterol.total/Gabriela sterol in HDL [Mass ratio] 3.3 {ratio} Normal <5.0 [facility] Comment on above: Result Comment: PERF ORMED BY: [place] [address] PATHOLOGIST METAL FILER PILAR VILLARREAL M.D. Performed By: #### L IPID, [address] eA #### [facility] [address] LDL Cholesterol,Calculated 80 mg/dL Normal 0-100 [facility] Comment on above: Result Comment: LDL ATP III CLASSIFICATION LDL less than 100 mg/dL Optimal LDL 100-129 mg/dL Near or above optimal LDL 130-159 mg/dL Borderline high LDL 160-189 mg/dL High LDL greater than 189 mg/dL Very high Performed By: #### L IPID, A1C WT eA #### [facility] [address] [place] [id number] [place] Triglyceride w/Reflex 127 mg/dL Normal 35-[address] [facility] Comment on above: Result Comment: TRIG ATP III CLASSIFICATION TRIG less than 150 mg/dL Normal TRIG 150-199 mg/dL Borderline high TRIG 200-500 mg/dL High TRIG greater than 500 mg/dL Very high Standard traceable to the Center for Disease Conrtrol and Prevention (CDC) test method. Performed By: #### L IPID, A1C [facility] eA #### [facility] [address] VLDL CHOLESTEROL 25 mg/dL Normal [facility] Comment on above: Performed By: #### L IPID, A1C [facility] eA #### [facility] [address] Serum or plasma high density lipoprotein (HDL) cholesterol measurementOrdered By: Nathaniel Castillo on 06-13-2022 Cholesterol in HDL [Mass/Vol] 45 mg/dL 35-85 [facility] Comment on above: HDL CHOL ATP-III CLA SSIFICATION Cardiovascular RiskHDL > or equal to 60 mg/dL LOWHDL < 40 mg/dL HIGH Serum or plasma total choles terol/high density lipoprotein (HDL) cholesterol mass ratOrdered By: Nathaniel Castillo on 06-13-2022 Cholesterol.total/Gabriela sterol in HDL [Mass ratio] 3.3 {ratio} <5.0 [facility] Triglyceride [Mass/volume] i n Serum or PlasmaOrdered By: Nathaniel Castillo on 06-13-2022 Triglyceride [Mass/Vol] 127 mg/dL 35-149 [facility] Comment on above: TRIG ATP III CLASSIF ICATIONTRIG less than 150 mg/dL NormalTRIG 150-199 mg/dL Borderline highTRIG 200-500 mg/dL High TRIG greater than 500 mg/dL Very highStandard traceable to the Center for Disease Conrtrol and Prevention (CDC) test method. MR angio head wo conon 06-12 MR angio head wo con [facility] [place] [address] [place] [address] MRI Report Signed Patient: Abdirahman Gomez MR#: [id number] : 1940 Acct:[id number] Age/Sex: 81 / F ADM Date: 06/09/22 Loc: 3T Room: [address] [place] [address] Type: ADM IN Attending Dr: Nathaniel Castillo MD Copies to: Nathaniel Castillo MD Ordering Provider: Nathaniel Castillo MD Date of Service: 06/12/22 MR/MR angio head wo con: stroke MRA OF THE INTRACRANIAL CIRCULATION TECHNIQUE: 3-D [id number] imaging of the resighini of [place] obtained. HISTORY:LEFT arm weakness. The visualized carotid and the vertebrobasilar system are unremarkable. No abnormality of the anterior, middle and posterior cerebral arteries identified. No arterial occlusion, stenosis or dissection identified. No intracranial aneurysm identified. MR/MR angio head wo con IMPRESSION: UNREMARKABLE MRA OF THE INTRACRANIAL CIRCULATION. Impression dictated by: Mamadou Rodríguez M.D.06/12/2022 1:36 PM Dictation Location: [place] [address] Transcribed By: [facility] 06/12/22 1336 Dictated By: Mamadou Rodríguez DO 06/12/22 1330 Signed By: 06/12/22 1336 [facility] MR head/brain wo conon 06-12 MR head/brain wo con [facility] [place] [address] MRI Report Signed Patient: Abdirahman Gomez MR#: [id number] : 1940 Acct:[id number] Age/Sex: 81 / F ADM Date: 06/09/22 Loc: Room: [address] [place] [address] Type: ADM IN Attending Dr: Nathaniel Castillo [...] Beasley Jr., D.O.06/12/2022 10:02 AM Dictation Location: [place] [address] Transcribed By: [facility] 06/12/22 1002 Dictated By: Stiven Beasley Jr, DO 06/12/22 0950 Signed By: 06/12/22 1002 Normal [facility] Complete Blood Count Auto Di ffon 06-11-2022 Basophils (Bld) [#/Vol] 0.1 10*3/uL Normal 0.0-0.2 [facility] Comment on above: Result Comment: PERF ORMED BY: [facility] [address] [place] [address] PATHOLOGIST METAL FILER PILAR VILLARREAL M.D. Performed By: #### G LULS #### Point of Care testing , Basophils/100 WBC (Bld) 0.5 % Normal . [facility] Comment on above: Performed By: #### G LULS #### Point of Care testing , Eosinophils (Bld) [#/Vol] 0.1 10*3/uL Normal 0.0-0.45 [facility] Comment on above: Performed By: #### G LULS #### Point of Care testing , Eosinophils/100 WBC (Bld) 1.2 % Normal . [facility] Comment on above: Performed By: #### G LULS #### Point of Care testing , Erythrocyte distribution width (RBC) [Ratio] 13.6 % Normal 11.9-15.3 [facility] Comment on above: Performed By: #### G LULS #### Point of Care testing , Hematocrit (Bld) [Volume fraction] 37.7 % Normal 34.0-46.4 [facility] Comment on above: Performed By: #### G LULS #### Point of Care testing , Hemoglobin (Bld) [Mass/Vol] 12.4 g/dL Normal 11.8-15.4 [facility] Comment on above: Performed By: #### G CARLEENLS #### Point of Care testing , Lymphocytes (Bld) [#/Vol] 2.8 10*3/uL Normal 1.00-4.8 [facility] Comment on above: Performed By: #### G CARLEENLS #### Point of Care testing , Lymphocytes/100 WBC (Bld) 24.1 % Normal . [facility] Comment on above: Performed By: #### G CARLEENLS #### Point of Care testing , MCH (RBC) [Entitic mass] 34.5 pg High 24.7-34.3 [facility] Comment on above: Performed By: #### G CARLEENLS #### Point of Care testing , MCV (RBC) [Entitic vol] 104.5 fL High 80-100 [facility] Comment on above: Performed By: #### G CARLEENLS #### Point of Care testing , Mean Corpuscular HGB Conc 33.0 g/dL Normal 32.0-35.0 [facility] Comment on above: Performed By: #### G CARELENLS #### Point of Care testing , Monocytes (Bld) [#/Vol] 1.0 10*3/uL High 0.0-0.8 [facility] Comment on above: Performed By: #### G CARLEENLS #### Point of Care testing , Monocytes/100 WBC (Bld) 9.1 % Normal . [facility] Comment on above: Performed By: #### G CARLEENLS #### Point of Care testing , Neutrophils (Bld) [#/Vol] 7.4 10*3/uL Normal 1.8-7.7 [facility] Comment on above: Performed By: #### G CARLEENLS #### Point of Care testing , Neutrophils/100 WBC (Bld) 65.1 % Normal . [facility] Comment on above: Performed By: #### G CARLEENLS #### Point of Care testing , NRBC% 0.1 /100{WBC} Normal 0-0.5 [facility] Comment on above: Performed By: #### G LULS #### Point of Care testing , Platelet mean volume (Bld) [Entitic vol] 8.0 fL Normal 6.3-10.7 [facility] Comment on above: Performed By: #### G LULS #### Point of Care testing , Platelets (Bld) [#/Vol] 206 10*3/uL Normal 150-450 [facility] Comment on above: Performed By: #### G LULS #### Point of Care testing , RBC (Bld) [#/Vol] 3.61 10*6/uL Normal 3.60-5.00 [facility] Comment on above: Performed By: #### G LULS #### Point of Care testing , WBC (Bld) [#/Vol] 11.4 10*3/uL Normal 3.8-11.6 [facility] Comment on above: Performed By: #### G LULS #### Point of Care testing , ECG 12 lead ECGon 06-11-2022 ECG 12 lead ECG [facility] [address] Electrocardiograph Report Signed Patient: Abdirahman Gomez MR#: [id number] : 1940 Acct:[id number] Age/Sex: 81 / F ADM Date: 06/09/22 Loc: Room: [address] [place] [address] Type: DIS IN Attending Dr: Frida De [...] By Yoav Prado MD 1 1318 Normal [facility] Troponin I High Sensitivityo n 06-11-2022 Troponin I High Sensitivity 3701 pg/mL Off scale high 0-15 [facility] Comment on above: Result Comment: Resu lts called at 0655 on 06/11/22 PERFORMED BY: [place] [address] PATHOLOGIST METAL FILER PILAR VILLARREAL M.D. Performed By: #### L IPID, A1C [facility] eA #### [place] [id number] [facility] XR chest 1V portableon 06-11 XR chest 1V portable [facility] [place] [address] [place] [address] XRay Report Signed Patient: Abdirahman Gomez MR#: [id number] : 1940 Acct:[id number] Age/Sex: 81 / F ADM Date: 06/09/22 Loc: Room: [address] [place] [address] Type: ADM IN Attending Dr: Nathaniel Castillo [...] WITHOUT RADIOGRAPHIC COMPLICATION. Impression dictated by: Stiven eBasley Jr., D.OHuma06/11/2022 3:33 PM Dictation Location: [place] [address] Transcribed By: [facility] 06/11/22 1533 Dictated By: Stiven Beasley Jr DO 06/11/22 1533 Signed By: 06/11/22 1533 [facility] ECG 12 lead ECGon 06-10-2022 ECG 12 lead ECG [facility] Main [place] [id number] Electrocardiograph Report Signed Patient: Abdirahman Gomez MR#: [id number] : 1940 Acct:[id number] Age/Sex: 81 / F ADM Date: 06/09/22 Loc: 3T Room: [address] [place] [address] Type: DIS IN Attending Dr: Frida De [...] By Yoav Prado MD 1 08/11/21 1626 [facility] ECG 12 lead ECG [facility] Main [address] [address] Electrocardiograph Report Signed Patient: Abdirahman Gomez MR#: [id number] : 1940 Acct:[id number] Age/Sex: 81 / F ADM Date: 06/09/22 Loc: Room: [address] [place] [address] Type: DIS IN Attending Dr: Frida De [...] By Yoav Prado MD 1 08/11/21 1626 [facility] Basic Metabolic Panelon 12-2 Anion gap [Moles/Vol] 13.4 mmol/L Normal 6.0-15.0 [facility] Comment on above: Performed By: #### L IPID, [address] eA #### [facility] [address] [place] [id number] [place] Calcium [Mass/Vol] 8.9 mg/dL Normal 8.2-10.2 [facility] Comment on above: Performed By: #### L IPID, [address] eA #### [facility] [address] [place] [address] [place] Chloride [Moles/Vol] 106 mmol/L Normal 95-114 [facility] Comment on above: Performed By: #### L IPID, [address] eA #### [facility] [address] [place] [address] [place] CO2 [Moles/Vol] 21.6 mmol/L Low 22.0-30.0 [facility] Comment on above: Performed By: #### L IPID, [address] eA #### [facility] [address] [place] [id number] [place] Creatinine [Mass/Vol] 0.76 mg/dL Normal 0.44-1.[address] [facility] Comment on above: Performed By: #### L IPID, A1C WTH eA #### [facility] [address] [place] [address] [place] Creatinine Clr Calc Pharmacy 49.92 [facility] Comment on above: Performed By: #### L IPID, A1C WTH eA #### [facility] [address] [place] [address] [place] Estimated GFR ( Rose > 60 [facility] Comment on above: Result Comment: GFR estimated reference range: According to KDOQI guidelines, <60 ml/min/1.73m2 is sufficient to diagnose a patient with chronic kidney disease. Performed By: #### L IPID, A1C WTH eA #### [facility] [address] Estimated GFR (Non- Am > 60 [facility] Comment on above: Performed By: #### L IPID, A1C WTH eA #### [address] Glucose [Mass/Vol] 136 mg/dL High 70-100 [facility] Comment on above: Result Comment: [place] om Glucose Reference Range is dependent on time and content of last meal. Glucose of more than 200 mg/dL in a nonstressed, ambulatory subject supports the diagnosis of Diabetes Mellitus. ADA recommended reference range Performed By: #### L IPID, A1C WTH eA #### [place] [address] [place] Potassium [Moles/Vol] 4.0 mmol/L Normal 3.5-5.[address] [facility] Comment on above: Performed By: #### L IPID, A1C WTH eA #### [facility] [address] [place] [address] [place] Sodium [Moles/Vol] 137 mmol/L Normal 136-146 [facility] Comment on above: Performed By: #### L IPID, A1C WTH eA #### [facility] [address] [place] [address] [place] Urea nitrogen [Mass/Vol] 9 mg/dL Normal 9-23 [facility] Comment on above: Performed By: #### L IPID, A1C WTH eA #### [facility] [address] CBC W MANUAL DIFFon 06-09-20 22 ATYPICAL LYMPH # 0.53 103/ul Normal [facility] Comment on above: Performed By: #### T SH, BNP, CMP, LIPID, T7 #### [facility] [address] [place] [address] [address] Logan Payne ATYPICAL LYMPH % 4 % Normal [facility] Comment on above: Performed By: #### T SH, BNP, CMP, LIPID, T7 #### [facility] [address] [place] [address] [address] Logan Payne BAND # 0.0 103/ul Normal 0.0-0.3 [facility] Comment on above: Performed By: #### T SH, BNP, CMP, LIPID, T7 #### [facility] [address] [place] [address] Dr. Logan Payne BAND % 0 % Normal 0-5 [facility] Comment on above: Performed By: #### T SH, BNP, CMP, LIPID, T7 #### [facility] [address] [place] [address] [address] Logan Payne BASOM # 0.26 103/ul Critically high 0.00-0.10 [facility] Comment on above: Performed By: #### T SH, BNP, CMP, LIPID, T7 #### [facility] [address] [place] [address] [address] Logan Payne BASOM % 2.0 % Normal 0.2-2.0 [facility] Comment on above: Performed By: #### T SH, BNP, CMP, LIPID, T7 #### [facility] [address] [place] [address] [address] Logan Payne BLAST # Normal [facility] Comment on above: Performed By: #### T SH, BNP, CMP, LIPID, T7 #### [facility] [address] [place] [address] [address] Logan Payne BLAST % Normal [facility] Comment on above: Performed By: #### T SH, BNP, CMP, LIPID, T7 #### [facility] [address] [place] [address] [address] Logan Payne CORRECTED WBC Normal 4.0-11.0 [facility] Comment on above: Performed By: #### T SH, BNP, CMP, LIPID, T7 #### [facility] [address] [place] [address] [address] Logan Payne EOS # 0.66 103/ul Normal 0.00-0.70 [facility] Comment on above: Performed By: #### T SH, BNP, CMP, LIPID, T7 #### [facility] [address] [place] [address] [address] Logan Payne EOS% 5.0 % Normal 0.9-7.0 [facility] Comment on above: Performed By: #### T SH, BNP, CMP, LIPID, T7 #### [facility] [address] [place] [address] [address] Logan Payne HCT 39.6 % Normal 36.0-48.0 [facility] Comment on above: Performed By: #### T SH, BNP, CMP, LIPID, T7 #### [facility] [address] [place] [address] [address] Logan Payne HGB 13.5 g/dl Normal 12.0-16.0 [facility] Comment on above: Performed By: #### T SH, BNP, CMP, LIPID, T7 #### [facility] [address] [place] [address] [address] Logan Payne LYMPHM # 1.98 103/ul Normal 1.20-3.80 [facility] Comment on above: Performed By: #### T SH, BNP, CMP, LIPID, T7 #### [facility] [address] [place] [address] [address] Logan Payne LYMPHM% 15.0 % Critically low 20.5-60.0 [facility] Comment on above: Performed By: #### T SH, BNP, CMP, LIPID, T7 #### [facility] [address] [place] [address] [address] Logan Payne MCH 34.1 pg Critically high 26.7-34.0 [facility] Comment on above: Performed By: #### T SH, BNP, CMP, LIPID, T7 #### [facility] [address] [place] [address] [address] Logan Payne MCHC 34.1 g/dl Normal 29.9-35.2 [facility] Comment on above: Performed By: #### T SH, BNP, CMP, LIPID, T7 #### [facility] [address] [place] [address] [address] Logan Payne MCV 100.0 fL Critically high 81.0-99.0 [facility] Comment on above: Performed By: #### T SH, BNP, CMP, LIPID, T7 #### [facility] [address] [place] [address] Dr. Logan Payne METAMYELOCYTE # Normal [facility] Comment on above: Performed By: #### T SH, BNP, CMP, LIPID, T7 #### [facility] [address] [place] [address] Dr. Logan Payne METAMYELOCYTE % Normal [facility] Comment on above: Performed By: #### T SH, BNP, CMP, LIPID, T7 #### [facility] [address] [place] [address] Dr. Logan Payne MONOM# 1.85 103/ul Critically high 0.30-0.80 [facility] Comment on above: Performed By: #### T SH, BNP, CMP, LIPID, T7 #### [facility] [address] [place] [address] Dr. Logan Payne MONOM% 14.0 % Critically high 1.7-12.0 [facility] Comment on above: Performed By: #### T SH, BNP, CMP, LIPID, T7 #### [facility] [address] [place] [address] Dr. Logan Payne MPV 9.3 fL Critically low 9.5-13.5 [facility] Comment on above: Performed By: #### T SH, BNP, CMP, LIPID, T7 #### [facility] [address] [place] [address] Dr. Logan Payne MYELOCYTE # Normal [facility] Comment on above: Performed By: #### T SH, BNP, CMP, LIPID, T7 #### [facility] [address] [place] [address] [address] Logan Payne MYELOCYTE % Normal [facility] Comment on above: Performed By: #### T SH, BNP, CMP, LIPID, T7 #### [facility] [address] [place] [address] [address] Logan Payne NRBC Normal [facility] Comment on above: Performed By: #### T SH, BNP, CMP, LIPID, T7 #### [facility] [address] [place] [address] [address] Logan Payne PLT 219 103/ul Normal 150-450 [facility] Comment on above: Performed By: #### T SH, BNP, CMP, LIPID, T7 #### [facility] [address] [place] [address] [address] Logan Payne RBC 3.96 106/ul Critically low 4.20-5.40 [facility] Comment on above: Performed By: #### T SH, BNP, CMP, LIPID, T7 #### [facility] [address] [place] [address] [address] Logan Payne RDW 13.2 % Normal 11.0-15.0 [facility] Comment on above: Performed By: #### T SH, BNP, CMP, LIPID, T7 #### [facility] [address] [place] [address] [address] Logan Payne SEG # 7.92 103/ul Critically high 1.40-6.50 [facility] Comment on above: Performed By: #### T SH, BNP, CMP, LIPID, T7 #### [facility] [address] [place] [address] [address] Logan Payne SEG % 60.0 % Normal 43.0-75.0 [facility] Comment on above: Performed By: #### T SH, BNP, CMP, LIPID, T7 #### [facility] [address] [place] [address] [address] Logan Payne WBC 13.2 103/ul Critically high 4.0-11.0 [facility] Comment on above: Performed By: #### T SH, BNP, CMP, LIPID, T7 #### [facility] [address] [place] [address] [address] Logan Payne CULTURE BLOODon 06-09-2022 Microscopic examination of blood, culture Culture Observations: NO GROWTH AT 5 DAYS. Isolate 1 BC_BA_NA Normal [facility] Comment on above: Performed By: #### T SH, BNP, CMP, LIPID, T7 #### [facility] [address] [place] [address] [address] Logan Payne Microscopic examination of blood, culture Culture Observations: NO GROWTH AT 5 DAYS. Isolate 1 BC_BA_NA Normal [facility] Comment on above: Performed By: #### T SH, BNP, CMP, LIPID, T7 #### [facility] [address] [place] [address] [address] Logan Payne Complete Blood Count Auto Di ffon 06-09-2022 Basophils (Bld) [#/Vol] 0.1 10*3/uL Normal 0.0-0.2 [facility] Comment on above: Result Comment: PERF ORMED BY: [place] [address] PATHOLOGIST METAL FILER PILAR VILLARREAL M.D. Performed By: #### L IPID, [address] eA #### [facility] [address] [place] [address] [place] Basophils/100 WBC (Bld) 0.4 % Normal . [facility] Comment on above: Performed By: #### L IPID, A1C [facility] eA #### [facility] [address] [place] [address] [place] Eosinophils (Bld) [#/Vol] 0.1 10*3/uL Normal 0.0-0.45 [facility] Comment on above: Performed By: #### L IPID, [address] eA #### [facility] [address] [place] [address] [place] Eosinophils/100 WBC (Bld) 0.5 % Normal . [facility] Comment on above: Performed By: #### L IPID, A1C WTH eA #### [address] Erythrocyte distribution width (RBC) [Ratio] 13.8 % Normal 11.9-15.3 [facility] Comment on above: Performed By: #### L IPID, A1C WTH eA #### [address] Hematocrit (Bld) [Volume fraction] 41.0 % Normal 34.0-46.4 [facility] Comment on above: Performed By: #### L IPID, A1C WT eA #### [address] Hemoglobin (Bld) [Mass/Vol] 13.6 g/dL Normal 11.8-15.4 [facility] Comment on above: Performed By: #### L IPID, A1C WTH eA #### [address] Lymphocytes (Bld) [#/Vol] 2.3 10*3/uL Normal 1.00-4.8 [facility] Comment on above: Performed By: #### L IPID, A1C WT eA #### [address] Lymphocytes/100 WBC (Bld) 17.2 % Normal . [facility] Comment on above: Performed By: #### L IPID, A1C WT eA #### [place] [address] [place] MCH (RBC) [Entitic mass] 34.4 pg High 24.7-34.3 [facility] Comment on above: Performed By: #### L IPID, A1C WTH eA #### [place] [address] [place] MCV (RBC) [Entitic vol] 103.6 fL High 80-100 [facility] Comment on above: Performed By: #### L IPID, A1C WTH eA #### [address] Mean Corpuscular HGB Conc 33.2 g/dL Normal 32.0-35.0 [facility] Comment on above: Performed By: #### L IPID, [address] eA #### [facility] [address] [place] [address] [place] Monocytes (Bld) [#/Vol] 1.3 10*3/uL High 0.0-0.8 [facility] Comment on above: Performed By: #### L IPID, [address] eA #### [facility] [address] [place] [address] [place] Monocytes/100 WBC (Bld) 10.1 % Normal . [facility] Comment on above: Performed By: #### L IPID, [address] eA #### [place] [address] [place] Neutrophils (Bld) [#/Vol] 9.5 10*3/uL High 1.8-7.7 [facility] Comment on above: Performed By: #### L IPID, [address] eA #### [place] [address] [place] Neutrophils/100 WBC (Bld) 71.8 % Normal . [facility] Comment on above: Performed By: #### L IPID, [address] eA #### [place] [address] [place] NRBC% 0.0 /100{WBC} Normal 0-0.5 [facility] Comment on above: Performed By: #### L IPID, [address] eA #### [facility] [address] [place] [address] [place] Platelet mean volume (Bld) [Entitic vol] 8.1 fL Normal 6.3-10.7 [facility] Comment on above: Performed By: #### L IPID, [address] eA #### [facility] [address] [place] [address] [place] Platelets (Bld) [#/Vol] 199 10*3/uL Normal 150-450 [facility] Comment on above: Performed By: #### L IPID, [address] [address]RE[address] eA #### [facility] [address] [place] [id number] [place] RBC (Bld) [#/Vol] 3.96 10*6/uL Normal 3.60-5.00 [facility] Comment on above: Performed By: #### L IPID, A1C [facility] eA #### [facility] [address] [place] [address] [facility] WBC (Bld) [#/Vol] 13.2 10*3/uL High 3.8-11.6 [facility] Comment on above: Performed By: #### L IPID, A1C [facility] eA #### [facility] [address] Covid-19 PCR ([facility])on 05-15 SARS-CoV-2 (COVID-19) RNA CAROL+probe Ql (Unsp spec) Not detected Normal NOT DETECTED [facility] Comment on above: Result Comment: When diagnostic [...] for this test is supported by the [place] of Health and Human Service's declaration that [...] T SH, BNP, CMP, LIPID, T7 #### [facility] [address] [address] [address] Logan Payne ECG 12 lead ECGon 06-09-2022 ECG 12 lead ECG [facility] Main [place] [address] [place] [address] Electrocardiograph Report Signed Patient: Abdirahman Gomez MR#: [id number] : 1940 Acct:[id number] Age/Sex: 81 / F ADM Date: 06/09/22 Loc: 3T Room: [address] [place] [address] Type: DIS IN Attending Dr: Frida De [...] ECGs available Confirmed by YOAV PRADO MD ([place]) on 06/09/2022 5:09:33 PM Referred By: AG Electronically Signed By:YOAV PRADO MD Transcribed By: MUS Signed By Yoav Prado MD 1 08/10/21 1709 [facility] ECH echo [facility]ac[facility] echo transthoracic [facility] [place] [address] Echocardiogram Signed Patient: Abdirahman Gomez MR#: [id number] : 1940 Acct:[id number] Age/Sex: 81 / F ADM Date: 06/09/22 Loc: 3T Room: [address] [place] [address] Type: DIS IN Attending Dr: Frida De [...] LV V1 VTI: 14.6 cm Transcribed By: VALERIA Performed At: 06/09/22 1426 Signed By: Yoav Prado MD 06/09/22 1653 Normal [facility] Folate [Mass/volume] in Seru m or PlasmaOrdered By: Nathaniel Castillo on 06-09-2022 Folate [Mass/Vol] ng/mL >5.9 [facility] Comment on above: Folate reference ran ge: >5.9 ng/mlThe WHO technical consultation on folate and vitamin i84asoepdrubnei has determined that folate concentrations lessthan 4 ng/ml are considered deficient. LACTATE/LACTIC ACIDon 2021 Lactate [Moles/Vol] 1.1 mmol/L Normal 0.4-1.9 [facility] Comment on above: Performed By: #### T SH, BNP, CMP, LIPID, T7 #### [facility] [address] [place], [place] [address] Dr. Logan Payne Lactate [Moles/Vol] 1.8 mmol/L Normal 0.4-1.9 [facility] Comment on above: Performed By: #### T SH, BNP, CMP, LIPID, T7 #### [facility] [address] [place], [place] [address] Dr. Logan Payne Laboratory - Chemistry and C hemistry - challengeOrdered By: Nathaniel Castillo on 06-09-2022 Cobalamin (Vitamin B12) [Mass/Vol] 480 pg/mL 180-914 [facility] Laboratory - Chemistry and C hemistry - challengeOrdered By: Rossi Valdez on 06-09-2022 Magnesium [Mass/Vol] 1.8 mg/dL 1.6-2.6 [facility] Magnesiumon 06-09-2022 Magnesium [Mass/Vol] 1.8 mg/dL Normal 1.6-2.6 [facility] Comment on above: Result Comment: PERF ORMED BY: [place] [address] PATHOLOGIST METAL FILER PILAR VILLARREAL M.D. Performed By: #### L IPID, A1C [facility] eA #### [place] [address] [place] OCC BLD IMMUNO SCREENon 05-15 OCCULT BLOOD Positive Abnormal NEGATIVE [facility] Comment on above: Performed By: #### T SH, BNP, CMP, LIPID, T7 #### [facility] [address] [address] [address] Logan Payne PROF 14(COMP METB)on 022 Albumin [Mass/Vol] 3.3 g/dL Critically low 3.4-5.0 [facility] Comment on above: Performed By: #### C MP, HSTROPN #### [facility] [address] [place] [address] Dr. Logan Payne Albumin/Globulin [Mass ratio] 0.8 {ratio} Normal [facility] Comment on above: Performed By: #### C MP, HSTROPN #### [facility] [address] [address] [address] Logan Payne ALP [Catalytic activity/Vol] 95 U/L Normal 46-116 [facility] Comment on above: Performed By: #### C MP, HSTROPN #### [facility] [address] [address] [address] Logan Payne ALT [Catalytic activity/Vol] 36 U/L Normal 14-59 [facility] Comment on above: Performed By: #### C MP, HSTROPN #### [facility] [address] [address] [address] Logan Payne Anion gap [Moles/Vol] 14.7 mmol/L Normal [facility] Comment on above: Performed By: #### C MP, HSTROPN #### [facility] [address] [address] [address] Logan Payne AST [Catalytic activity/Vol] 75 U/L Critically high 15-37 [facility] Comment on above: Performed By: #### C MP, HSTROPN #### [facility] [address] [address] [address] Logan Payne Bilirubin [Mass/Vol] 0.4 mg/dL Normal 0.2-1.0 [facility] Comment on above: Performed By: #### C MP, HSTROPN #### [facility] [address] [place] [address] Dr. Logan Payne Calcium [Mass/Vol] 8.7 mg/dL Normal 8.5-10.1 [facility] Comment on above: Performed By: #### C MP, HSTROPN #### [facility] [address] [place] [address] Dr. Logan Payne Chloride [Moles/Vol] 103 mmol/L Normal 98-107 [facility] Comment on above: Performed By: #### C MP, HSTROPN #### [facility] [address] [place] [address] Dr. Logan Payne CO2 [Moles/Vol] 21.3 mmol/L Normal 21.0-32.0 [facility] Comment on above: Performed By: #### C MP, HSTROPN #### [facility] [address] [place] [address] Dr. Logan Payne Creatinine [Mass/Vol] 0.83 mg/dL Normal 0.55-1.02 [facility] Comment on above: Performed By: #### C MP, HSTROPN #### [facility] [address] [place] [address] Dr. Logan Payne EGFR-AF MOZAMBICAN >60 Normal >=60 [facility] Comment on above: Performed By: #### C MP, HSTROPN #### [facility] [address] [place] [address] Dr. Logan Payne EGFR-NON AF MOZAMBICAN >60 Normal >=60 [facility] Comment on above: Performed By: #### C MP, HSTROPN #### [facility] [address] [place] [address] Dr. Logan Payne Globulin (S) [Mass/Vol] 4.1 g/dL Normal [facility] Comment on above: Performed By: #### C MP, HSTROPN #### [facility] [address] [place] [address] Dr. Logan Payne Glucose [Mass/Vol] 141 mg/dL Critically high 74-106 [facility] Comment on above: Performed By: #### C MP, HSTROPN #### [facility] [address] [place] [address] Dr. Logan Payne Potassium [Moles/Vol] 4.0 mmol/L Normal 3.5-5.1 [facility] Comment on above: Performed By: #### C JOSE, HSTROPN #### [facility] [address] [place] [address] Dr. Logan Payne Protein [Mass/Vol] 7.4 g/dL Normal 6.4-8.2 [facility] Comment on above: Performed By: #### C JOSE, HSTROPN #### [facility] [address] [place] [address] Dr. Logan Payne Sodium [Moles/Vol] 135 mmol/L Critically low 136-145 [facility] Comment on above: Performed By: #### C JOSE, HSTROPN #### [facility] [address] [place] [address] Dr. Logan Payne Urea nitrogen [Mass/Vol] 16.0 mg/dL Normal 7.0-18.0 [facility] Comment on above: Performed By: #### C JOSE, HSTROPN #### [facility] [address] [place] [address] Dr. Logan Payne Urea nitrogen/Creatinine [Mass ratio] 19.3 mg/mg Normal [facility] Comment on above: Performed By: #### C MP, HSTROPN #### [facility] [address] [place] [address] Dr. Logan Payne PROTIMEon 06-09-2022 INR Coag (PPP) [Relative time] 0.98 {INR} Normal [facility] Comment on above: Performed By: #### T SH, BNP, CMP, LIPID, T7 #### [facility] [address] [place] [address] Dr. Logan Payne INR GUIDELINES SEE BELOW Normal [facility] Comment on above: Result Comment: FERCHO RED INR: 2.0 - 3.0 CONDITIONS NOT LISTED BELOW 2.5 - 3.5 FOR PROSTHETIC HEART VALVE REPLACEMENT 2.5 - 3.5 RECURRENT THROMBOSIS Performed By: #### T SH, BNP, CMP, LIPID, T7 #### [facility] [address] [address] [address] Logan Payne PT Coag (PPP) [Time] 10.6 s Normal 9.0-11.6 [facility] Comment on above: Performed By: #### T SH, BNP, CMP, LIPID, T7 #### [facility] [address] [place] [address] Dr. Logan Payne PTTon 06-09-2022 aPTT Coag (Bld) [Time] 30.0 s Normal 22.3-36.2 [facility] Comment on above: Performed By: #### T SH, BNP, CMP, LIPID, T7 #### [facility] [address] [place] [address] Dr. Logan Payne TROPONIN, HIGH SENSITIVITYon 06-09-2022 HSTROP 8564.4 pg/mL Critically high 4.0-51.3 [facility] Comment on above: Result Comment: CUT- OFF POINTS HAVE BEEN ESTABLISHED BASED ON THE FOURTH UNIVERSAL DEFINITIONS OF MYOCARDIAL INFARCTION. THE UPPER REFERENCE LIMIT (URL) OF TROPONIN, DEFINED THE 99TH PERCENTILE OF cTnI DISTRIBUTION IN A REFERENCE POPULATION, HAS BEEN CONFIRMED THE DECISION THRESHOLD FOR PA DIAGNOSIS. Performed By: #### T SH, BNP, CMP, LIPID, T7 #### [facility] [address] [place] [address] Dr. Logan Payne HSTROP 9385.6 pg/mL Critically high 4.0-51.3 [facility] Comment on above: Result Comment: CUT- OFF POINTS HAVE BEEN ESTABLISHED BASED ON THE FOURTH UNIVERSAL DEFINITIONS OF MYOCARDIAL INFARCTION. THE UPPER REFERENCE LIMIT (URL) OF TROPONIN, DEFINED THE 99TH PERCENTILE OF cTnI DISTRIBUTION IN A REFERENCE POPULATION, HAS BEEN CONFIRMED THE DECISION THRESHOLD FOR PA DIAGNOSIS. Performed By: #### C MP, HSTROPN #### [facility] [address] [place], [place] [address] Dr. Logan Payne TYPE AND SCREENon 06-09-2022 TYPE AND SCREEN Negative Normal [facility] Comment on above: Performed By: #### T SH, BNP, CMP, LIPID, T7 #### [facility] [address] [place], [place] [address] Dr. Logan Payne Troponin I High Sensitivityo n 06-09-2022 Troponin I High Sensitivity 6364 pg/mL Off scale high 0-15 [facility] Comment on above: Result Comment: Resu lts called at 1303 on 06/09/22 PERFORMED BY: [place] [address] PATHOLOGIST METAL FILER PILAR VILLARREAL M.D. Performed By: #### L IPID, [address] eA #### [facility] [address] [place] [address] Troponin I High Sensitivity 6431 pg/mL Off scale high 0-15 [facility] Comment on above: Result Comment: Resu lts called at 1006 on 06/09/22 PERFORMED BY: [place] [address] PATHOLOGIST METAL FILER PILAR VILLARREAL M.D. Performed By: #### L IPID, [address] eA #### [facility] [address] [place] [address] Troponin I High Sensitivity 6373 pg/mL Off scale high 0-15 [facility] Comment on above: Result Comment: Resu lts called at 0710 on 06/09/22 PERFORMED BY: [place] [address] PATHOLOGIST METAL FILER PILAR VILLARREAL M.D. Performed By: #### G LULS #### Point of Care testing , Vit. B12/Folate Profileon Cobalamin (Vitamin B12) [Mass/Vol] 480 pg/mL Normal 180-914 [facility] Comment on above: Order Comment: Comme nt addon Performed By: #### G CARLEENLS #### Point of Care testing , Folate > 22.3 Normal >5.9 [facility] Comment on above: Order Comment: Comme nt addon Result Comment: Niyah te reference range: >5.9 ng/ml The WHO technical consultation on folate and vitamin b12 deficiencies has determined that folate concentrations less than 4 ng/ml are considered deficient. PERFORMED BY: [facility] [address] [place] [address] PATHOLOGIST METAL FILER PILAR VILLARREAL M.D. Performed By: #### G KIRA #### Point of Care testing , BASIC METABOLIC PANELon 11-12 Calcium [Mass/Vol] 9.1 mg/dL Normal 8.6-10.3 [facility] Comment on above: Order Comment: No: D o not add to previous draw Performed By: #### 0 0071, 16303 #### [facility] [address] [place] [address], [place] Chloride [Moles/Vol] 104 mmol/L Normal 98-107 [facility] Comment on above: Order Comment: No: D o not add to previous draw Performed By: #### 0 0071, 10456 #### [facility] [address] [place] [address], [place] CO2 [Moles/Vol] 22 mmol/L Normal 21-31 [facility] Comment on above: Order Comment: No: D o not add to previous draw Performed By: #### 0 0071, 41432 #### [facility] [address] [place] [address], [place] Creatinine [Mass/Vol] 0.80 mg/dL Normal 0.60-1.20 [facility] Comment on above: Order Comment: No: D o not add to previous draw Performed By: #### 0 0071, 01311 #### [facility] [address] [place] [address], [place] GFR/1.73 sq M.predicted among blacks MDRD (S/P/Bld) [Vol rate/Area] mL/min/{1.73_m2} Normal >60 [facility] Comment on above: Order Comment: No: D o not add to previous draw Result Comment: Calc ulation may not be valid for patients over 70 years Performed By: #### 0 0071, 65441 #### [facility] [address] [place] [address], [place] GFR/1.73 sq M.predicted among non-blacks MDRD (S/P/Bld) [Vol rate/Area] mL/min/{1.73_m2} Normal >60 [facility] Comment on above: Order Comment: No: D o not add to previous draw Result Comment: Calc ulation may not be valid for patients over 70 years Performed By: #### 0 0071, 69970 #### [facility] [address] [place] [address], [place] Glucose [Mass/Vol] 99 mg/dL Normal 70-100 [facility] Comment on above: Order Comment: No: D o not add to previous draw Performed By: #### 0 0071, 66096 #### [facility] [address] [place] [address], [place] Potassium [Moles/Vol] 4.2 mmol/L Normal 3.5-5.1 [facility] Comment on above: Order Comment: No: D o not add to previous draw Performed By: #### 0 0071, 25459 #### [facility] [address] [place] [address], [place] Sodium [Moles/Vol] 137 mmol/L Normal 136-145 [facility] Comment on above: Order Comment: No: D o not add to previous draw Performed By: #### 0 0071, 88422 #### [facility] [address] [place] [address], [place] Urea nitrogen [Mass/Vol] 11 mg/dL Normal 7-25 [facility] Comment on above: Order Comment: No: D o not add to previous draw Performed By: #### 0 0071, 03695 #### [facility] [address] [place] [address], [facility] CBC COMPLETE BLOOD COUNTon 0 11-25-2021 Erythrocyte distribution width (RBC) [Ratio] 12.9 % Normal 11.5-15.0 The [facility] Comment on above: Order Comment: No: D o not add to previous draw Performed By: #### 3 2043 #### [facility] [address] [place] [address], [facility] Hematocrit (Bld) [Volume fraction] 42.7 % Normal 36.0-45.0 The [facility] Comment on above: Order Comment: No: D o not add to previous draw Performed By: #### 3 2043 #### [facility] [address] [place] [address], [facility] Hemoglobin (Bld) [Mass/Vol] 14.3 g/dL Normal 12.0-15.0 The [facility] Comment on above: Order Comment: No: D o not add to previous draw Performed By: #### 3 2043 #### [facility] [address] [place] [address], [facility] MCH (RBC) [Entitic mass] 33.9 pg High 27.0-33.0 The [facility] Comment on above: Order Comment: No: D o not add to previous draw Performed By: #### 3 2043 #### [facility] [address] [place] [address], [facility] MCHC (RBC) [Mass/Vol] 33.5 g/dL Normal 32.0-35.0 The [facility] Comment on above: Order Comment: No: D o not add to previous draw Performed By: #### 3 2043 #### [facility] [address] [place] [address], [facility] MCV (RBC) [Entitic vol] 101.2 fL High 82.0-98.0 T he [facility] Comment on above: Order Comment: No: D o not add to previous draw Performed By: #### 3 2043 #### [facility] [address] [place] [address], [facility] Nucleated RBC/100 WBC (Bld) [Ratio] 0 % Normal 0-0 The [facility] Comment on above: Order Comment: No: D o not add to previous draw Performed By: #### 3 2043 #### [facility] [address] [place] [address], [place] PLAT CNT 211 10*3/uL Normal 150-400 [facility] Comment on above: Order Comment: No: D o not add to previous draw Performed By: #### 3 2043 #### [facility] [address] [place] [address], [facility] RBC (Bld) [#/Vol] 4.22 10*6/uL Normal 3.80-5.00 The [facility] Comment on above: Order Comment: No: D o not add to previous draw Performed By: #### 3 2043 #### [facility] [address] [place] [address], [facility] WBC (Bld) [#/Vol] 11.25 10*3/uL High 4.00-10.60 The [facility] Comment on above: Order Comment: No: D o not add to previous draw Performed By: #### 3 2043 #### [facility] [address] [place] [address], [facility] HEMOGLOBIN A1Con 11-25-2021 Glucose [Moles/Vol] 128 mmol/L Normal The [facility] Comment on above: Order Comment: If no t done in EDNo: Do not add to previous draw Performed By: #### 3 2043 #### [facility] [address] [place] [address], [facility] HbA1c (Bld) [Mass fraction] 6.1 % High 4.0-6.0 The [facility] Comment on above: Order Comment: If no t done in EDNo: Do not add to previous draw Performed By: #### 3 2043 #### [address] [address], [facility] MAGNESIUM BLOODon 11-25-2021 Magnesium [Mass/Vol] 1.8 mg/dL Low 1.9-2.7 The [facility] Comment on above: Order Comment: No: D o not add to previous draw Performed By: #### 0 0071, 66187 #### [facility] [address] [place] [address], [facility] PORTABLE CHEST 1 VIEWon 11-12 PORTABLE CHEST 1 VIEW [facility] Department of Radiology [address] [place] [id number] Patient Name: ABDIRAHMAN GOMEZ : 1940 Sex: F Age: Race: White Pt. Location: [id number] Patient Status: I Ordered Date: 11/25/2021 10:05:00 [...] edema. Electronically signed: Melania Lay. Transcribed by: [email or web address], User Resident: Electronically Signed by: MELANIA LAY @ 11/25/2021 10:44 AM Normal The [facility] Comment on above: Order Comment: Pneum othorax Cardiovascular Lab Reporton 11-24-2021 Cardiovascular Lab Report [facility] MR #: [id number] Physician: Sarabjit Vicente MD Department of Service Date: 11/24/2021 Medicine Birthdate: 1940 Division of Room #: 3AB 201838 Cardiology Adult Cardiovascular Services [place] [address] Cardiovascular Laboratory Report PACEMAKER IMPLANT PROCEDURE NOTE DATE OF PROCEDURE: 11/24/2021 PERFORMING PHYSICIAN: Dr. Sarabjit Vicente CONSENT: Patient LOCATION: EP Lab PROCEDURE PERFORMED: 1. Implantation of pacemaker ([employer]). 2. Ultrasound guided venous access INDICATIONS: [...] history of hypertension, who was transferred from 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 She had syncope from this and subsequently was transferred here. Since the admission to [facility], she had a fairly recently good [...] using modified seldinger technique using a 5 [place] micro-puncture needle on two occasions and 0.35 [...] pocket was created for the device. 6 [place] Safesheaths were placed over the wire. An active fixation [employer] pacing lead was then delivered through the 6Fsheath to the right ventricle. After confirmation of lead position on orthogonal views ([place]) to confirm septal position, the screw was activated, and the lead was placed in the right ventricular mid cavity towards the septum. After confirmation of good sensing parameters, injury pattern and pacing thresholds, 10V pacing was done and no diaphragmatic stimulation was noted. It was then secured in the pocket using three 1-0 Silk sutures. Then an active fixation [employer] lead was delivered through the 6Fsheath to the right atrial appendage. After confirmation of lead position on orthogonal views ([place]), the screw was activated. After confirmation of [...] immediate procedural complications were noted. Device info: airpim Accolade MRI Model# L311 Serial# [id number] RA lead: Model# INGEVITY 7840 (45cms) Serial# [id number] SensinmV Threshold: 0.8V@0.4ms Impedance: 590 Ohms RV lead: Model# INGEVITY 7841 (52cms) Serial# [id number] Sensin.5mV Threshold: 0.4V@0.4ms Impedance: 1125 Ohms POST PROCEDURE EXAM: Patient was hemodynamically stable. COMPLICATIONS: None. ESTIMATED BLOOD LOSS: 15cc IMPRESSION: 1. Successful dual chamber pacemaker with excellent pacing and sensing parameters. RECOMMENDATIONS: 1 Occlusive dressing to be removed after 2 weeks. 2. Do not wet the incision for 7 days. 3. No lifti (more content not included)... Normal The [facility] APTTon 11-23-2021 aPTT Coag (Bld) [Time] 30.9 s Normal 25.0-35.0 Th e [facility] Comment on above: Order Comment: No: D [...] FOR THIS PURPOSE. Performed By: #### 3 2043 #### [facility] [address] [facility]. [address] BASIC METABOLIC PANELon 11-12 Calcium [Mass/Vol] 9.5 mg/dL Normal 8.6-10.3 The [facility] Comment on above: Order Comment: No: D o not add to previous draw Performed By: #### 1 0070, 93371 #### [facility] [address] [place] [address], [facility] Chloride [Moles/Vol] 104 mmol/L Normal 98-107 The [facility] Comment on above: Order Comment: No: D o not add to previous draw Performed By: #### 1 69, 07246 #### [facility] [address] [place] [address], [place] CO2 [Moles/Vol] 21 mmol/L Normal 21-31 The [facility] Comment on above: Order Comment: No: D o not add to previous draw Performed By: #### 1 69, 52820 #### [facility] [address] [place] [address], [place] Creatinine [Mass/Vol] 0.80 mg/dL Normal 0.60-1.20 The [facility] Comment on above: Order Comment: No: D o not add to previous draw Performed By: #### 1 69, 82055 #### [facility] [address] [place] [address], [place] GFR/1.73 sq M.predicted among blacks MDRD (S/P/Bld) [Vol rate/Area] mL/min/{1.73_m2} Normal >60 [facility] Comment on above: Order Comment: No: D o not add to previous draw Result Comment: Calc ulation may not be valid for patients over 70 years Performed By: #### 1 69, [id number] #### [facility] [address] [place] [address], [place] GFR/1.73 sq M.predicted among non-blacks MDRD (S/P/Bld) [Vol rate/Area] mL/min/{1.73_m2} Normal >60 [facility] Comment on above: Order Comment: No: D o not add to previous draw Result Comment: Calc ulation may not be valid for patients over 70 years Performed By: #### 1 0, 46696 #### [facility] [address] [place] [address], [place] Glucose [Mass/Vol] 109 mg/dL High 70-100 [facility] Comment on above: Order Comment: No: D o not add to previous draw Performed By: #### 1 69, 09007 #### [facility] [address] [place] [address], [facility] Potassium [Moles/Vol] 3.9 mmol/L Normal 3.5-5.1 [facility] Comment on above: Order Comment: No: D o not add to previous draw Performed By: #### 1 69, 24779 #### [facility] [address] [place] [address], [place] Sodium [Moles/Vol] 138 mmol/L Normal 136-145 [facility] Comment on above: Order Comment: No: D o not add to previous draw Performed By: #### 1 69, 07923 #### [facility] [address] [place] [address], [place] Urea nitrogen [Mass/Vol] 15 mg/dL Normal 7-25 [facility] Comment on above: Order Comment: No: D o not add to previous draw Performed By: #### 1 69, 76048 #### [facility] [address] [place] [address], [facility] CBC COMPLETE BLOOD COUNTon - Erythrocyte distribution width (RBC) [Ratio] 12.8 % Normal 11.5-15.0 [facility] Comment on above: Order Comment: No: D o not add to previous draw Performed By: #### 3 2043 #### [facility] [address] [place] [address], [facility] Hematocrit (Bld) [Volume fraction] 41.9 % Normal 36.0-45.0 [facility] Comment on above: Order Comment: No: D o not add to previous draw Performed By: #### 3 2043 #### [facility] [address] [place] [address], [facility] Hemoglobin (Bld) [Mass/Vol] 14.1 g/dL Normal 12.0-15.0 [facility] Comment on above: Order Comment: No: D o not add to previous draw Performed By: #### 3 2043 #### [facility] [address] [place] [address], [facility] MCH (RBC) [Entitic mass] 34.0 pg High 27.0-33.0 [facility] Comment on above: Order Comment: No: D o not add to previous draw Performed By: #### 3 2043 #### [facility] [address] [place] [address], [facility] MCHC (RBC) [Mass/Vol] 33.7 g/dL Normal 32.0-35.0 [facility] Comment on above: Order Comment: No: D o not add to previous draw Performed By: #### 3 2043 #### [facility] [address] [place] [address], [facility] MCV (RBC) [Entitic vol] 101.0 fL High 82.0-98.0 T [facility] Comment on above: Order Comment: No: D o not add to previous draw Performed By: #### 3 2043 #### [facility] [address] [place] [address], [facility] Nucleated RBC/100 WBC (Bld) [Ratio] 0 % Normal 0-0 [facility] Comment on above: Order Comment: No: D o not add to previous draw Performed By: #### 3 2043 #### [facility] [address] [place] [address], [facility] PLAT CNT 218 10*3/uL Normal 150-400 [facility] Comment on above: Order Comment: No: D o not add to previous draw Performed By: #### 3 2043 #### [facility] [address] [facility] [place] [address], [facility] RBC (Bld) [#/Vol] 4.15 10*6/uL Normal 3.80-5.00 [facility] Comment on above: Order Comment: No: D o not add to previous draw Performed By: #### 3 2043 #### [facility] [address] [place] [address], [facility] WBC (Bld) [#/Vol] 9.49 10*3/uL Normal 4.00-10.60 [facility] Comment on above: Order Comment: No: D o not add to previous draw Performed By: #### 3 2043 #### [facility] [address] [place] [address], [facility] MAGNESIUM BLOODon 11-23-2021 Magnesium [Mass/Vol] 2.0 mg/dL Normal 1.9-2.7 [facility] Comment on above: Order Comment: No: D o not add to previous draw Performed By: #### 1 0070, 57511 #### [facility] [address] POC SARS COV2 ANTIGEN NEGATI VEon 11-23-2021 POC SARS COV2 ANTIGEN NEG Negative Normal NEGATIVE [facility] Comment on above: Result Comment: Nega tive [...] antigen from SARS-CoV-2 in direct nasopharyngeal swab (MANAGER PAYMENT) specimens from individuals who are suspected of [...] Certificate of Accreditation. Performed By: #### 3 2043 #### [facility] [address] [facility]. [address] PROTHROMBIN TIMEon INR Coag (PPP) [Relative time] 1.03 {INR} Normal 0.91-1.16 [facility] Comment on above: Order Comment: No: D [...] 1995;[id number]. Performed By: #### 3 2043 #### [facility] [address] [facility]. [address] PT Coag (PPP) [Time] 13.5 s Normal 12.3-14.8 [facility] Comment on above: Order Comment: No: D o not add to previous draw Result Comment: ALL RESULTS MUST BE INTERPRETED WITH RESPECT TO BLOOD DRAWING ARTIFACT OR DILUTION ERROR OF ANTICOAGULANT AT THE TIME OF SAMPLING. Performed By: #### 3 2043 #### [facility] [address] BASIC METABOLIC PANELon 11-12 Calcium [Mass/Vol] 9.5 mg/dL Normal 8.6-10.3 [facility] Comment on above: Order Comment: No: D o not add to previous draw Performed By: #### 1 0070, 83644, 38461 #### [facility] [address] [place] [address], [place] Chloride [Moles/Vol] 104 mmol/L Normal 98-107 [facility] Comment on above: Order Comment: No: D o not add to previous draw Performed By: #### 1 0070, 99738, 16657 #### [facility] [address] [place] [address], [place] CO2 [Moles/Vol] 21 mmol/L Normal 21-31 [facility] Comment on above: Order Comment: No: D o not add to previous draw Performed By: #### 1 0070, 14579, 64795 #### [facility] [address] [place] [address], [place] Creatinine [Mass/Vol] 0.98 mg/dL Normal 0.60-1.20 [facility] Comment on above: Order Comment: No: D o not add to previous draw Performed By: #### 1 0070, 16682, 55539 #### [facility] [address] [place] [address], [place] eGFR- non- 54 ml/min/1.73sq m Abnormal >60 [facility] Comment on above: Order Comment: No: D o not add to previous draw Result Comment: Calc ulation may not be valid for patients over 70 years Performed By: #### 1 0070, 11608, 59475 #### [facility] [address] [place] [address], [place] GFR/1.73 sq M.predicted among blacks MDRD (S/P/Bld) [Vol rate/Area] mL/min/{1.73_m2} Normal >60 [facility] Comment on above: Order Comment: No: D o not add to previous draw Result Comment: Calc ulation may not be valid for patients over 70 years Performed By: #### 1 0, 97358, 85220 #### [facility] [address] [place] [address], [facility] Glucose [Mass/Vol] 110 mg/dL High 70-100 [facility] Comment on above: Order Comment: No: D o not add to previous draw Performed By: #### 1 0, 19098, 07339 #### [facility] [address] [place] [address], [facility] Potassium [Moles/Vol] 4.9 mmol/L Normal 3.5-5.1 [facility] Comment on above: Order Comment: No: D o not add to previous draw Performed By: #### 1 0, 21580, 30976 #### [facility] [address] [place] [address], [facility] Sodium [Moles/Vol] 137 mmol/L Normal 136-145 [facility] Comment on above: Order Comment: No: D o not add to previous draw Performed By: #### 1 0, 30151, 70638 #### [facility] [address] [facility] [address] Urea nitrogen [Mass/Vol] 18 mg/dL Normal 7-25 [facility] Comment on above: Order Comment: No: D o not add to previous draw Performed By: #### 1 0, 23079, 94984 #### [facility] [address] [place] [address], [facility] CBC W/DIFFon 11-22-2021 ABS IMM GRANS 0.1 10*3/uL Normal 0.0-0.2 [facility] Comment on above: Performed By: #### 3 2043 #### [facility] [address] [place] [address], [facility] ABS NEUTROPHILS 6.8 10*3/uL Normal 1.6-7.6 [facility] Comment on above: Performed By: #### 3 2043 #### [facility] [address] [place] [address], [facility] Basophils (Bld) [#/Vol] 0.1 10*3/uL Normal 0.0-0.2 [facility] Comment on above: Performed By: #### 3 2043 #### [facility] [address] [place] [address], [facility] Basophils/100 WBC (Bld) 0.8 % Normal 0.0-1.0 T [facility] Comment on above: Performed By: #### 3 2043 #### [facility] [address] [place] [address], [facility] Eosinophils (Bld) [#/Vol] 0.4 10*3/uL Normal 0.0-0.5 [facility] Comment on above: Performed By: #### 3 2043 #### [facility] [address] [place] [address], [facility] Eosinophils/100 WBC (Bld) 3.6 % Normal 0.0-6.0 [facility] Comment on above: Performed By: #### 3 2043 #### [facility] [address] [facility] [address] Erythrocyte distribution width (RBC) [Ratio] 12.6 % Normal 11.5-15.0 [facility] Comment on above: Performed By: #### 3 2043 #### [facility] [address] [place] [address], [facility] Hematocrit (Bld) [Volume fraction] 42.3 % Normal 36.0-45.0 [facility] Comment on above: Performed By: #### 3 2043 #### [facility] [address] [facility] [place] [address], [facility] Hemoglobin (Bld) [Mass/Vol] 14.9 g/dL Normal 12.0-15.0 [facility] Comment on above: Performed By: #### 3 2043 #### [facility] [address] [place] [address], [facility] IMMATURE GRANS 0.5 % Normal 0.0-1.0 [facility] Comment on above: Performed By: #### 3 2043 #### [facility] [address] [place] [address], [facility] Lymphocytes (Bld) [#/Vol] 2.3 10*3/uL Normal 1.2-4.0 [facility] Comment on above: Performed By: #### 3 2043 #### [facility] [address] [facility] [place] [address], [facility] Lymphocytes/100 WBC (Bld) 21.8 % Normal 20.0-45.0 [facility] Comment on above: Performed By: #### 3 2043 #### [facility] [address] [facility] [place] [address], [facility] MCH (RBC) [Entitic mass] 34.3 pg High 27.0-33.0 [facility] Comment on above: Performed By: #### 3 2043 #### [facility] [address] [facility] [place] [address], [facility] MCHC (RBC) [Mass/Vol] 35.2 g/dL High 32.0-35.0 [facility] Comment on above: Performed By: #### 3 2043 #### [facility] [address] [facility] [place] [address], [facility] MCV (RBC) [Entitic vol] 97.2 fL Normal 82.0-98.0 T [facility] Comment on above: Performed By: #### 3 2043 #### [facility] [address] [facility] [place] [address], [facility] Monocytes (Bld) [#/Vol] 0.8 10*3/uL Normal 0.1-1.0 [facility] Comment on above: Performed By: #### 3 2043 #### [facility] [address] [place] [address], [facility] MONOS 7.8 % Normal 5.0-12.0 [facility] Comment on above: Performed By: #### 3 2043 #### [facility] [address] [place] [address], [facility] Neutrophils/100 WBC (Bld) 65.5 % Normal 40.0-72.0 [facility] Comment on above: Performed By: #### 3 2043 #### [facility] [address] [place] [address], [facility] Nucleated RBC/100 WBC (Bld) [Ratio] 0 % Normal 0-0 [facility] Comment on above: Performed By: #### 3 2043 #### [facility] [address] [place] [address], [facility] PLAT CNT 231 10*3/uL Normal 150-400 [facility] Comment on above: Performed By: #### 3 2043 #### [facility] [address] [facility] [place] [address], [facility] RBC (Bld) [#/Vol] 4.35 10*6/uL Normal 3.80-5.00 [facility] Comment on above: Performed By: #### 3 2043 #### [facility] [address] [facility] [place] [address], [facility] WBC (Bld) [#/Vol] 10.35 10*3/uL Normal 4.00-10.60 [facility] Comment on above: Performed By: #### 3 2043 #### [facility] [address] [facility] [place] [id number], [facility] MAGNESIUM BLOODon 11-22-2021 Magnesium [Mass/Vol] 2.1 mg/dL Normal 1.9-2.7 [facility] Comment on above: Order Comment: No: D o not add to previous draw Performed By: #### 1 0070, 74614, 58004 #### [facility] [address] [place] [address], [facility] TROPONIN-Ion 11-22-2021 Troponin I.cardiac [Mass/Vol] 0.00 ng/mL Normal 0.00-0.04 [facility] Comment on above: Order Comment: No: D o not add to previous draw Result Comment: REFE RENCE RANGES: 0.00 - 0.04 ng/ml NORMAL 0.05 - 0.50 ng/ml INDETERMINATE > 0.50 ng/ml CONSISTENT WITH AN M.I. Performed By: #### 1 0070, 37725, 65801 #### [facility] [address] [place], [place] [id number] [place] [address] Troponin I.cardiac [Mass/Vol] 0.01 ng/mL Normal 0.00-0.04 [facility] Comment on above: Order Comment: No: D o not add to previous draw Result Comment: REFE RENCE RANGES: 0.00 - 0.04 ng/ml NORMAL 0.05 - 0.50 ng/ml INDETERMINATE > 0.50 ng/ml CONSISTENT WITH AN M.I. Performed By: #### 3 5200 #### [facility] [address] ECHOCARDIO M/2D COMPLETEon 0 11-05-2021 ECHOCARDIO M/2D COMPLETE Patient: ABDIRAHMAN GOMEZ Exam Date: 11/05/2021 : 1940 Gender:F Ordering : VENUS TONG Admission #: [id number] Family : DR IRISH FAUSTIN . Order #: [id number] CLICK HERE TO VIEW EXAM ECHOCARDIOGRAM REPORT [...] Lopez M.D. on 11/06/2021 at 13:18 Normal [facility] MG MAMM SCREEN 3D MILANA CADon 10-27-2021 MG MAMM SCREEN 3D MILANA CAD Patient: ABDIRAHMAN GOMEZ Exam Date: 10/27/2021 : 1940 Gender:F Ordering : DR IRISH FAUSTIN . Admission #: [id number] Family : Order #: [id number] CLICK HERE TO VIEW EXAM RADIOLOGY REPORT [...] Treatments None Family Cancers None LOCATION: [facility] BREAST COMPOSITION: Almost entirely fatty. FINDINGS: DIAGNOSTIC [...] MD on 10/27/2021 at 11:44 Normal [facility] INSULINon 06-28-2021 Insulin 12.1 uIU/mL Normal 2.6-24.9 [facility] Comment on above: Performed By: #### I NSULIN #### [facility] [address] [place] [address] Dr. Logan Payne BNPon 06-27-2021 Natriuretic peptide B (Bld) [Mass/Vol] 350.0 pg/mL Normal <=1,800.0 [facility] Comment on above: Performed By: #### T SH, BNP, CMP, LIPID, T7 #### [facility] [address] [place] [address] Dr. Logan Payne CBC AUTO DIFFon 06-27-2021 BASO # 0.1 103/ul Normal 0.0-0.1 [facility] Comment on above: Performed By: #### T SH, BNP, CMP, LIPID, T7 #### [facility] [address] [place] [address] Dr. Logan Payne Basophils/100 WBC (Bld) 1.1 % Normal 0.2-2.0 [facility] Comment on above: Performed By: #### T SH, BNP, CMP, LIPID, T7 #### [facility] [address] [place] [address] Dr. Logan Payne EO # 0.3 103/ul Normal 0.0-0.7 [facility] Comment on above: Performed By: #### T SH, BNP, CMP, LIPID, T7 #### [facility] [address] [place] [address] Dr. Logan Payne Eosinophils/100 WBC (Bld) 2.8 % Normal 0.9-7.0 [facility] Comment on above: Performed By: #### T SH, BNP, CMP, LIPID, T7 #### [facility] [address] [place] [address] Dr. Logan Payne Erythrocyte distribution width (RBC) [Ratio] 12.9 % Normal 11.0-15.0 [facility] Comment on above: Performed By: #### T SH, BNP, CMP, LIPID, T7 #### [facility] [address] [place] [address] Dr. Logan Payne Hematocrit (Bld) [Volume fraction] 46.6 % Normal 36.0-48.0 [facility] Comment on above: Performed By: #### T SH, BNP, CMP, LIPID, T7 #### [facility] [address] [place] [address] Dr. Logan Payne Hemoglobin (Bld) [Mass/Vol] 15.0 g/dL Normal 12.0-16.0 [facility] Comment on above: Performed By: #### T SH, BNP, CMP, LIPID, T7 #### [facility] [address] [place] [address] Dr. Logan Payne IG # 0.05 10e3/ul Critically high 0.00-0.03 [facility] Comment on above: Performed By: #### T SH, BNP, CMP, LIPID, T7 #### [facility] [address] [place] [address] Dr. Logan Payne IG % 0.5 % Normal 0.0-0.5 [facility] Comment on above: Performed By: #### T SH, BNP, CMP, LIPID, T7 #### [facility] [address] [place] [address] Dr. Logan Payne LYMPH # 2.8 103/ul Normal 1.2-3.8 [facility] Comment on above: Performed By: #### T SH, BNP, CMP, LIPID, T7 #### [facility] [address] [place] [address] Dr. Logan Payne Lymphocytes/100 WBC (Bld) 27.4 % Normal 20.5-60.0 [facility] Comment on above: Performed By: #### T SH, BNP, CMP, LIPID, T7 #### [facility] [address] [place] [address] Dr. Logan Payne MANUAL DIFF REQ NO Normal [facility] Comment on above: Performed By: #### T SH, BNP, CMP, LIPID, T7 #### [facility] [address] [place] [address] Dr. Logan Payne MCH (RBC) [Entitic mass] 33.9 pg Normal 26.7-34.0 [facility] Comment on above: Performed By: #### T SH, BNP, CMP, LIPID, T7 #### [facility] [address] [place] [address] Dr. Logan Payne MCHC (RBC) [Mass/Vol] 32.2 g/dL Normal 29.9-35.2 [facility] Comment on above: Performed By: #### T SH, BNP, CMP, LIPID, T7 #### [facility] [address] [place] [address] Dr. Logan Payne MCV (RBC) [Entitic vol] 105.2 fL Critically high 81.0-99 .0 [facility] Comment on above: Performed By: #### T SH, BNP, CMP, LIPID, T7 #### [facility] [address] [place] [address] Dr. Logna Payne MONO # 0.7 103/ul Normal 0.3-0.8 [facility] Comment on above: Performed By: #### T SH, BNP, CMP, LIPID, T7 #### [facility] [address] [place] [address] Dr. Logan Payne Monocytes/100 WBC (Bld) 7.2 % Normal 1.7-12.0 [facility] Comment on above: Performed By: #### T SH, BNP, CMP, LIPID, T7 #### [facility] [address] [place] [address] Dr. Logan Payne NEUT # 6.3 103/ul Normal 1.4-6.5 [facility] Comment on above: Performed By: #### T SH, BNP, CMP, LIPID, T7 #### [facility] [address] [place] [address] Dr. Logan Payne Neutrophils/100 WBC (Bld) 61.0 % Normal 43.0-75.0 [facility] Comment on above: Performed By: #### T SH, BNP, CMP, LIPID, T7 #### [facility] [address] [place] [address] Dr. Logan Payne Platelet mean volume (Bld) [Entitic vol] 9.3 fL Critically low 9.5-13.5 [facility] Comment on above: Performed By: #### T SH, BNP, CMP, LIPID, T7 #### [facility] [address] [place] [address] Dr. Logan Payne PLT 245 103/ul Normal 150-450 [facility] Comment on above: Performed By: #### T SH, BNP, CMP, LIPID, T7 #### [facility] [address] [place] [address] Dr. Logan Payne RBC 4.43 106/ul Normal 4.20-5.40 [facility] Comment on above: Result Comment: Macr ocytosis 1+ Performed By: #### T SH, BNP, CMP, LIPID, T7 #### [facility] [address] [place] [address] Dr. Logan Payne WBC 10.3 103/ul Normal 4.0-11.0 [facility] Comment on above: Performed By: #### T SH, BNP, CMP, LIPID, T7 #### [facility] [address] [place] [address] Dr. Logan Payne FREE THYROXINE INDEX T7on FTI 3.01 Normal [facility] Comment on above: Performed By: #### T SH, BNP, CMP, LIPID, T7 #### [facility] [address] [place] [address] [address] Logan Payne T3U 31.0 % Normal 23.5-40.5 [facility] Comment on above: Performed By: #### T SH, BNP, CMP, LIPID, T7 #### [facility] [address] [place] [address] [address] Logan Payne T4 [Mass/Vol] 9.70 ug/dL Normal 5.53-11.00 [facility] Comment on above: Performed By: #### T SH, BNP, CMP, LIPID, T7 #### [facility] [address] [place] [address] [address] Logan Payne GLYCOHEMOGLOBIN A1Con 2021 ADA RECOMMENDATION ADA THERAPEUTIC TARGET 6.0 - 7.0 ACTION SUGGESTED > 7.0 [facility] Comment on above: Performed By: #### A 1C #### [facility] [address] [place] [address] [address] Logan Payne Glucose [Mass/Vol] 126 mg/dL Normal [facility] Comment on above: Performed By: #### A 1C #### [facility] [address] [place] [address] [address] Logan Payne HbA1c (Bld) [Mass fraction] 6.0 % Normal <=6.0 [facility] [facility] Comment on above: Performed By: #### A 1C #### [facility] [address] [address] [address] Logan Payne IRONon 06-27-2021 Iron [Mass/Vol] 90.0 ug/dL Normal 37.0-170.0 [facility] Comment on above: Performed By: #### I GRANT #### [facility] [address] [address] [address] Logan Payne LIPID PROFILEon 06-27-2021 CHOL-HDL RATIO NORM SEE BELOW Normal [facility] Comment on above: Result Comment: 3.3 - 4.4 LOW RISK 4.4 - 7.1 AVERAGE RISK 7.1 - 11.0 MODERATE RISK >11.0 HIGH RISK Performed By: #### T SH, BNP, CMP, LIPID, T7 #### [facility] [address] [address] [address] Logan Payne Cholesterol [Mass/Vol] 209 mg/dL Critically high <=200 [facility] Comment on above: Performed By: #### T SH, BNP, CMP, LIPID, T7 #### [facility] [address] [address] [address] Logan Payne Cholesterol in HDL [Mass/Vol] 62 mg/dL Normal [facility] Comment on above: Performed By: #### T SH, BNP, CMP, LIPID, T7 #### [facility] [address] [place] [address] Dr. Logan Payne Cholesterol in LDL [Mass/Vol] 104.2 mg/dL Normal [facility] Comment on above: Performed By: #### T SH, BNP, CMP, LIPID, T7 #### [facility] [address] [address] [address] Logan Payne Cholesterol.total/Gabriela sterol in HDL [Mass ratio] 3.4 {ratio} Normal [facility] Comment on above: Performed By: #### T SH, BNP, CMP, LIPID, T7 #### [facility] [address] [place] [address] Dr. Logan Payne HDL NORMAL > or = 60 mg/dl - LO W CARDIOVASCULAR RISK <40 mg/dl - HIGH CARDIOVASCULAR RISK Normal [facility] Comment on above: Performed By: #### T SH, BNP, CMP, LIPID, T7 #### [facility] [address] [address] [address] Logan Payne LDL CALC NORMAL SEE BELOW Normal [facility] Comment on above: Result Comment: <100 mg/dl OPTIMAL 100 - 129 mg/dl NEAR OR ABOVE OPTIMAL 130 - 159 mg/dl BORDERLINE HIGH 160 - 189 mg/dl HIGH >190 mg/dl VERY HIGH Performed By: #### T SH, BNP, CMP, LIPID, T7 #### [facility] [address] [address] [address] Logan Payne Triglyceride [Mass/Vol] 214 mg/dL Critically high <=150 [facility] Comment on above: Performed By: #### T SH, BNP, CMP, LIPID, T7 #### [facility] [address] [address] [address] Logan Payne VLDL CALC 42.8 mg/dL Normal [facility] Comment on above: Performed By: #### T SH, BNP, CMP, LIPID, T7 #### [facility] [address] [address] [address] Logan Payne PROF 14(COMP METB)on 022 Albumin [Mass/Vol] 4.3 g/dL Normal 3.5-5.0 [facility] Comment on above: Performed By: #### T SH, BNP, CMP, LIPID, T7 #### [facility] [address] [address] [address] Logan Payne Albumin/Globulin [Mass ratio] 1.0 {ratio} Normal [facility] Comment on above: Performed By: #### T SH, BNP, CMP, LIPID, T7 #### [facility] [address] [address] [address] Logan Payne ALP [Catalytic activity/Vol] 108 U/L Normal 38-126 [facility] Comment on above: Performed By: #### T SH, BNP, CMP, LIPID, T7 #### [facility] [address] [address] [address] Logan Payne ALT [Catalytic activity/Vol] 59 U/L Critically high 9-52 [facility] Comment on above: Performed By: #### T SH, BNP, CMP, LIPID, T7 #### [facility] [address] [address] [address] Logan Payne Anion gap [Moles/Vol] 16.0 mmol/L Normal [facility] Comment on above: Performed By: #### T SH, BNP, CMP, LIPID, T7 #### [facility] [address] [address] [address] Logan Payne AST [Catalytic activity/Vol] 52 U/L Critically high 14-36 [facility] Comment on above: Performed By: #### T SH, BNP, CMP, LIPID, T7 #### [facility] [address] [address] [address] Logan Payne Bilirubin [Mass/Vol] 0.3 mg/dL Normal 0.2-1.3 [facility] Comment on above: Performed By: #### T SH, BNP, CMP, LIPID, T7 #### [facility] [address] [address] [address] Logan Payne Calcium [Mass/Vol] 9.9 mg/dL Normal 8.4-10.2 [facility] Comment on above: Performed By: #### T SH, BNP, CMP, LIPID, T7 #### [facility] [address] [place] [address] Dr. Logan Payne Chloride [Moles/Vol] 105 mmol/L Normal 98-107 [facility] Comment on above: Performed By: #### T SH, BNP, CMP, LIPID, T7 #### [facility] [address] [place] [address] Dr. Logan Payne CO2 [Moles/Vol] 21.6 mmol/L Critically low 22.0-30.0 [facility] Comment on above: Performed By: #### T SH, BNP, CMP, LIPID, T7 #### [facility] [address] [place] [address] Dr. Logan Payne Creatinine [Mass/Vol] 1.01 mg/dL Normal 0.52-1.04 [facility] Comment on above: Performed By: #### T SH, BNP, CMP, LIPID, T7 #### [facility] [address] [place] [address] Dr. Logan Payne EGFR-AF MOZAMBICAN >60 Normal >=60 [facility] Comment on above: Performed By: #### T SH, BNP, CMP, LIPID, T7 #### [facility] [address] [place] [address] Dr. Logan Payne EGFR-NON AF MOZAMBICAN 53 mL/min/1.73m2 Critically low >=60 [facility] Comment on above: Performed By: #### T SH, BNP, CMP, LIPID, T7 #### [facility] [address] [address] [address] Logan Payne Globulin (S) [Mass/Vol] 4.1 g/dL Normal [facility] Comment on above: Performed By: #### T SH, BNP, CMP, LIPID, T7 #### [facility] [address] [address] [address] Logan Payne Glucose [Mass/Vol] 117 mg/dL Critically high 74-106 [facility] Comment on above: Performed By: #### T SH, BNP, CMP, LIPID, T7 #### [facility] [address] [place] [address] Dr. Logan Payne Potassium [Moles/Vol] 4.6 mmol/L Normal 3.4-5.0 [facility] Comment on above: Performed By: #### T SH, BNP, CMP, LIPID, T7 #### [facility] [address] [address] [address] Logan Payne Protein [Mass/Vol] 8.4 g/dL Critically high 6.1-8.2 [facility] Comment on above: Performed By: #### T SH, BNP, CMP, LIPID, T7 #### [facility] [address] [place] [address] Dr. Logan Payne Sodium [Moles/Vol] 138 mmol/L Normal 137-145 [facility] Comment on above: Performed By: #### T SH, BNP, CMP, LIPID, T7 #### [facility] [address] [place] [address] Dr. Logan Payne Urea nitrogen [Mass/Vol] 18.0 mg/dL Critically high 7.0-17.0 [facility] Comment on above: Performed By: #### T SH, BNP, CMP, LIPID, T7 #### [facility] [address] [place] [address] Dr. Logan Payne Urea nitrogen/Creatinine [Mass ratio] 17.8 mg/mg Normal [facility] Comment on above: Performed By: #### T SH, BNP, CMP, LIPID, T7 #### [facility] [address] [place], [place] [address] Dr. Logan Payne TSHon 06-27-2021 TSH 1.510 uIU/mL Normal 0.470-4.680 [facility] Comment on above: Performed By: #### T SH, BNP, CMP, LIPID, T7 #### [facility] [address] [place], [place] [address] Dr. Logan Payne TSH RANGE SEE BELOW Normal [facility] Comment on above: Result Comment: <0.3 4 UIU/ml HYPERTHYROID 0.34-5.60 UIU/ml EUTHYROID >5.60 UIU/ml HYPOTHYROID Performed By: #### T SH, BNP, CMP, LIPID, T7 #### [facility] [address] [address] [address] Logan Payne Vital Signs Date Time Vital Sign Value Performing Clinician Faci lity 06-25-2022 11:18-0500 Body temperature 97.8 [degF] MD Irish Faustin Work Phone: [facility] 06-25-2022 11:18-0500 Diastolic blood pressure 70 mm[Hg] MD Irish Faustin Work Phone: [facility] 06-25-2022 11:18-0500 Heart rate 69 /min MD Irish Faustin Work Phone: [facility] 06-25-2022 11:18-0500 SaO2% (BldA) [Mass fraction] 94 % MD Irish Faustin Work Phone: [facility] 06-25-2022 11:18-0500 Systolic blood pressure 140 mm[Hg] MD Irish Faustin Work Phone: [facility] 06-25-2022 04:17-0500 Respiratory rate 18 /min MD Irish Faustin Work Phone: [facility] 06-24-2022 07:18-0500 Body height 157.48 cm MD Irish Faustin Work Phone: [facility] 06-22-2022 11:19-0500 Body weight 67.2 kg MD Irish Faustin Work Phone: [facility] 06-16-2022 16:00-0500 Body temperature 97.6 [degF] MD Irish Faustin Work Phone: [facility] 06-16-2022 16:00-0500 Diastolic blood pressure 75 mm[Hg] MD Irish Faustin Work Phone: [facility] 06-16-2022 16:00-0500 Heart rate 72 /min MD Irish Faustin Work Phone: [facility] 06-16-2022 16:00-0500 Respiratory rate 16 /min MD Irish Faustin Work Phone: [facility] 06-16-2022 16:00-0500 SaO2% (BldA) [Mass fraction] 96 % MD Irish Faustin Work Phone: [facility] 06-16-2022 16:00-0500 Systolic blood pressure 127 mm[Hg] MD Irish Faustin Work Phone: [facility] 06-16-2022 06:00-0500 Body weight 68.8 kg MD Irish Faustin Work Phone: [facility] 06-11-2022 15:23-0500 Body height 157.48 cm MD Irish Faustin Work Phone: [facility] 06-09-2022 12:00-0500 Inhaled oxygen flow rate 2 L/min MD Irish Faustin Work Phone: [facility] Encounters Encounter Date Encounter Type Care Provider Facility Start: 06-27-2024 End: 06-27-2024 ambulatory [facility] Start: 04-17-2024 End: 04-17-2024 [facility] Start: 12-28-2023 End: 12-28-2023 ambulatory [facility] Start: 06-16-2022 End: 06-25-2022 Evaluation and management of inpatient Stiven Zaman Facility:[facility] Start: 06-16-2022 End: 06-25-2022 Evaluation and management of inpatient MD Irish Faustin Work Phone: [facility] Work Phone: Start: 06-13-[address] Yoav Prado Facility:[id number] Start: 06-11-[address] Irish Faustin Facility:[facility] Start: 06-09-[address] Irish Faustin Facility:[id number] Start: 06-09-2022 End: 06-16-2022 Evaluation and management of inpatient Chema Annia Facility:[facility] Start: 06-09-2022 End: 06-16-2022 Evaluation and management of inpatient MD Irish Faustin Work Phone: [facility] Work Phone: Start: 06-08-2022 End: 06-09-[address] IRISH FAUSTIN Facility:[facility]1 Start: 01-12-2022 ambulatory VENUS TONG Facility :[facility] Start: 11-27-2021 ambulatory VENUS TONG Facility :[facility] Start: 11-22-2021 End: 11-25-2021 Evaluation and management of inpatient PHYSICIAN UNKNOWN Facility:[facility] Start: 11-05-2021 End: 11-06-2021 ambulatory VENUS [...] Date Care Activity Detail Author Start: 06-25-2022 [facility] Start: 06-16-2022 [facility] Start: 06-16-2022 Hospital admission [facility] Start: 06-16-2022 Referral to clinical tree puller [facility] Start: 06-16-2022 [facility] Start: 06-12-2022 Doppler ultrasonogra phy of bilateral carotid arteries US carotid doppler BI [facility] Start: 06-12-2022 US.doppler Carotid a rteries - bilateral [facility] Start: 06-09-2022 Hospital admission [facility] Patient Education Stroke (DC) [facility] Work Phone: Patient referral [facility] Work Phone: [facility] Payers Date Payer Category Payer Self-pay 1981 Medicare [id number] 1959 Medicare [id number] 1959 Private Health Insurance [id number] 1959 Self-pay [id number] 1940 Unknown [id number] 2.16.8 [id number] 1940 Unknown [id number] 2.16.84 [id number] 1940 Unknown [id number] 2.16.84 [id number] 1940 Unknown [id number] 2.16.84 [id number] 1940 Unknown [id number] 2.16.84 [id number] 1940 Unknown [id number] 2.16.84 [id number] 1940 Unknown [id number] 2.16.84 [id number] 1940 Unknown [id number] 2.16. [id number] 1940 Unknown [id number] 2.16. [id number] Unknown [id number] 2.16.8 [id number] Unknown [id number] 2.16.8 [id number] Social History Date Type Detail Facility Start: 06-09-2022 End: 06-17-2022 Tobacco smoking status NHIS Never smoked tobacco (finding) [facility] Start: 1940 Sex Assigned At Female [facility] Goals Date Patient Goal Desired Activity /State Functional Status Date Assessment Result Facility 06-25-2022 Functional status Patient at Baseline [facility] Work Phone: 06-16-2022 Functional status Patient is Pro gressing Toward Baseline [facility] Work Phone: Mental Status Date Assessment Result Facility 06-25-2022 Cognitive function Cognitive Sta tus Patient at Baseline [facility] Work Phone: 06-16-2022 Cognitive function Cognitive Sta tus Patient is Progressing Toward Baseline [facility] Work Phone: Clinical Notes 11-26-2021 to 04-17-2024 Note Date & Type Note Facility 04-17-2024 Note [facility] Cardiology Clinic Note Chief Complaint: Patient here for 1 year follow up CAD, PAF, carotid artery stenosis, and valve disorder. Had echo in May 2023. She denies worsening [place], palpitations, and bleeding on Eliquis. Does get intermittent pain she says from under her arms to her back and chest. She does get steroid injections from Dr. Faustin for back pain. HPI: [facility] is a 83 y.o. female past medical history of coronary [...] failure and hypoxia and cough with hemoptysis. UPDATE 04/17/2024 Doing well overall; despite the back pain, she is otherwise well Denies chest pain, shortness of breath is better No orthopnea, no paroxysmal external dyspnea Has lower extremity edema if she hangs her feet dangling for most of the day Cardiology ROS: Review of Systems Constitutional: Positive for malaise/fatigue. Cardiovascular: Positive for dyspnea on exertion and leg swelling (end of day). Musculoskeletal: Positive for back pain and muscle weakness. Neurological: Positive for focal weakness and weakness. All other systems reviewed and are negative. Past Medical History She has a past medical history of Aneurysm (CMS/HCC), Atrial fibrillation (CMS/HCC), Coronary artery disease, Heart valve disease, Hyperlipidemia, and Hypertension. Surgical History She has a past surgical history that includes CTA Abdomen Pelvis W IV Contrast (09/24/2018); US guided abscess drain (10/14/2018); Wrist [...] , Rfl: amLODIPine (Norvasc) 10 mg tablet, TAKE ONE TABLET BY MOUTH EVERY MORNING, Disp: 90 tablet, Rfl: 3 apixaban (Eliquis) 5 mg tablet, Take 2.5 mg by mouth in the morning and at bedtime., Disp: , Rfl: aspirin 81 mg EC tablet, Take 1 tablet by mouth in the morning., Disp: , Rfl: calcium carbonate-vitamin D3 500 mg-5 mcg (200 unit) tablet, Take 1 tablet by mouth in the morning., Disp: , Rfl: carvedilol (Coreg) 12.5 mg tablet, TAKE ONE TABLET BY MOUTH EVERY MORNING AND TAKE ONE TABLET BY MOUTH EVERY NIGHT AT BEDTIME, Disp: 180 tablet, Rfl: 3 furosemide (Lasix) 20 mg tablet, Take 20 mg by mouth in the morning., Disp: , Rfl: HYDROcodone-acetaminophen ([place]) 5-325 mg tablet, Take 5-325 tablets by mouth in the morning and at bedtime., Disp: , Rfl: isosorbide mononitrate ER (Imdur) 60 mg 24 hr tablet, Take 30 mg by mouth in the morning., Disp: , Rfl: LORazepam (Ativan) 1 mg tablet, Take 1 mg by mouth in the morning and at bedtime., Disp: , Rfl: montelukast (Singulair) 10 mg tablet, montelukast 10 mg tablet, Disp: , Rfl: omega 1-gbx-syi-fish oil (Fish OiL) 1,000 mg (120 mg-180 [...] morning., Disp: , Rfl: Last Recorded Vitals BP (!) 146/42 (BP Location: Right arm, Patient Position: Sitting) Pulse 87 Ht 1.575 m (5' 2 ) Wt 64 kg (141 lb) SpO2 94% BMI 25.79 kg/m??? Physical Examination: GENERAL: alert and oriented x3, well developed, in no acute distress. HEAD: atraumatic, normocephalic. EYES: SALO, EOMI. NECK: trachea midline, no JVD present, no carotid brui (more content not included)... [facility] 06-24-2022 Discharge summary Note Date/Time June 24, 2022 12:11pm [facility] [address] [place] [address] Discharge Summary Signed Patient: Abdirahman Gomez MR#: [id number] : 1940 Acct:[id number] Age/Sex: 81 / F Adm Date: 3 Loc: Room: [address] [place] [address]: Stiven Zaman MD Copies to: [...] lobe. She presented to outside facility around [place] with several days of generalized weakness. Her troponins were elevated. She was transferred to [facility]. Cardiology was consulted, did not feel [...] blood in the stool on admission to [place], consistent with lower GI bleed. She was [...] ADLs. She will be discharged home with [facility] home health services tomorrow. She [...] Plan Discharge Plan Patient Disposition: Home Health [facility] Activity: Ambulate as Tolerated Diet: Low-Sodium and Low-Cholesterol Comment: Heart Healthy 3-4gm Sodium Additional Instructions: -Code Status: Full Code -Activity: Ambulate as tolerated -Diet: Heart Healthy 3-4gm Sodium, low cholesterol -Follow feeding strategies: Sit upright 90 degrees, pacing/slow rate, alternate liquids/solids. Your Home Health agency is [facility] ( ). They will contact you within [...] <Electronically signed by KIM Crowell> 06/25/[address] [facility] Work Phone: 1(532) 362-138201-11-2023 Hospital Discharge instructionsAmbulatory Orders* Initiate Home Health Time Frame: 06/24/22, Location: Determined By Patient Additional Instructions -Code Status: Full Code -Activity: Ambulate as tolerated -Diet: Heart Healthy 3-4gm Sodium, low cholesterol -Follow feeding strategies: Sit upright 90 degrees, pacing/slow rate, alternate liquids/solids. Your Home Health agency is [facility] ( ). They will contact you within [...] office to inform them prior to your appointment.[facility] Work Phone: 1(300) 233-819901-10-2023 Progress note Author Stiven Zaman [facility] June 23, 2022 9:35pm Note Date/Time June 22, 2022 11 :35am [facility] [address] [place] [address] Physiatry(Rehab) Progress Note Signed Patient: Abdirahman Gomez MR#: [id number] : 1940 Acct:[id number] Age/Sex: 81 / F Adm Date: 3 Loc: 5T Room: 3T4915-0 Type: ADM IN Attending Dr: Stiven Zaman [...] lobe. She presented to outside facility around [place] with several days of generalized weakness. Her troponins were elevated. She was transferred to [facility]. Cardiology was consulted, did not feel [...] blood in the stool on admission to [place], consistent with lower GI bleed. She was [...] Objective <Lori Crowell APRN - Last Filed: 06/22/22 11:45> Labs 06/17/22 [...] mg 06/16/22 18:36 Bisacodyl 10 Mg Supp.Rect MA 06/16/23 18:35 DAILY PRN Constipation Carvedilol 12.5 mg 06/16/22 21:00 06/22/22 09:13 Carvedilol 12.5 Mg Tablet PO 06/16/23 20:59 12.5 mg BID JAK Administration Docusate Sodium 100 mg 06/16/22 18:36 Docusate 100 Mg Capsule PO 06/16/23 18:35 BID PRN Constipation Docusate Sodium 283 mg 06/16/22 18:36 Docusate Enema 283 Mg/5 Ml Enema MA 06/16/23 18:35 DAILY PRN Constipation Furosemide 20 [...] Tablet PO 06/17/23 08:59 125 mcg DAILY JKA Administration Assessment/Plan <Lori Crowell, ASSURANCE SENIOR MANAGER INSURANCE - Last Filed: 06/22/22 11:45> Assessment/Plan (1) [...] tizanidine with h/o afib. Chronic pain received [place] 5/[address] Faustin. Will change from q4h to twice daily as at home. OARRS reviewed. Bowel and bladder: Continent. Skin: No pressure ulcers Sleep: Optimize sleep / wake. DVT prophylaxis: Covered with Eliquis. Functional status: Ambulatory. Needs assist. Left hemiplegia. Impaired endurance. Discharge planning: Home 7-10 days. I spent greater than 15 minutes for services, including exig-vq-oplx encounter with the patient, discussion of the case, plan of care, and exam; and ohssexg-sw-eruf activities, such as reviewing pertinent claims consultant documentation, recent therapy notes, laboratory and radiology studies, and discussion of case with care team including physician, nursing, vocational case manager, and therapists. More than 50 [...] tizanidine with h/o afib. Chronic pain received [place] 5/[address] Faustin. Will change from q4h to twice daily as at home. OARRS reviewed. Bowel and bladder: Continent. Skin: No pressure ulcers Sleep: Optimize sleep / wake. DVT prophylaxis: Covered with Eliquis. Functional status: Ambulatory. Needs assist. Left hemiplegia. Impaired endurance. Discharge planning: Home end of week I spent greater than 15 minutes for services, including nkvm-jj-osvq encounter with the patient, discussion of the case, plan of care, and exam; and dehtylp-hw-mfrv activities, such as reviewing pertinent claims consultant documentation, recent therapy notes, laboratory and radiology studies, and discussion of case with care team including physician, nursing, vocational case manager, and therapists. More than 50 % of time was spent on patient/family counseling or coordination ofcare. Decision Plan: I completed a substantive portion of this encounter, the medical decision makingportion of this note in its entirety, including Allied health note review, nursing note review, claims consultant note review, discussion with nursing and case management, and more than 50% of my time was spent on counseling and coordination of care, time spent 25 minutes Patient was personally seen by me, Dr. Zaman, on the day of encounter, reviewed the history and the relevant portions of the chart, including current orders, allied health and claims consultant notes, labs/imaging and performed smith elements of exam and I formulated the plan of care and facilitated the medical decision making. Documented By: Stiven Zaman MD 06/22/22 5745 Signed By: <Electronically signed by Stiven Zaman MD> [id number] <Electronically signed by KIM Crowell> 06/22/[address] [facility] Work Phone: 1(340) 359-312301-10-2023 Progress note Author Stiven Zaman [facility] June 23, 2022 9:25pm Note Date/Time June 23, 2022 1 2:28pm [facility] [address] [place] [address] Physiatry(Rehab) Progress Note Signed Patient: Abdirahman Gomez MR#: [id number] : 1940 Acct:[id number] Age/Sex: 81 / F Adm Date: 3 Loc: Room: [address] [place] [address] Type: ADM IN Attending Dr: Stiven Zaman [...] lobe. She presented to outside facility around [place] with several days of generalized weakness. Her troponins were elevated. She was transferred to [facility]. Cardiology was consulted, did not feel [...] blood in the stool on admission to [place], consistent with lower GI bleed. She was [...] % (Auto) 55.7 Lymph % (Auto) 31.9 [place] % (Auto) 8.4 Eos % (Auto) 3.2 Baso % (Auto) 0.8 Nucleat RBC Rel Count 0.1 Neut # (Auto) 4.5 Lymph # (Auto) 2.6 [place] # (Auto) 0.7 Eos # (Auto) 0.3 [...] mg 06/16/22 18:36 Bisacodyl 10 Mg Supp.Rect MA 06/16/23 18:35 DAILY PRN Constipation Carvedilol 12.5 mg 06/16/22 21:00 06/23/22 10:00 Carvedilol 12.5 Mg Tablet PO 06/16/23 20:59 12.5 mg BID JAK Administration Docusate Sodium 100 mg 06/16/22 18:36 Docusate 100 Mg Capsule PO 06/16/23 18:35 BID PRN Constipation Docusate Sodium 283 mg 06/16/22 18:36 Docusate Enema 283 Mg/5 Ml Enema MA 06/16/23 18:35 DAILY PRN Constipation Furosemide 20 [...] 125 mcg DAILY JAK Administration Assessment/Plan <Lori Crowell, KIM - Last Filed: 06/23/22 12:28> Assessment/Plan (1) [...] tizanidine with h/o afib. Chronic pain received [place] 5/[address] Faustin. Will change from q4h totwice daily as at home. OARRS reviewed. Bowel and bladder: Continent. Skin: No pressure ulcers Sleep: Optimize sleep / wake. DVT prophylaxis: Covered with Eliquis. Functional status: Ambulatory. Needs assist. Left hemiplegia. Impaired endurance. Discharge planning: Home Wednesday or . I spent greater than 15 minutes for services, including iegi-uh-ynbf encounter with the patient, discussion of the case, plan of care, and exam; and iecevjr-mt-megs activities, such as reviewing pertinent claims consultant documentation, recent therapy notes, laboratory and radiology studies, and discussion of case with care team including physician, nursing, vocational case manager, and therapists. More than 50 [...] tizanidine with h/o afib. Chronic pain received [place] 5/[address] Faustin. Will change from q4h to twice daily as at home. OARRS reviewed. Bowel and bladder: Continent. Skin: No pressure ulcers Sleep: Optimize sleep / wake. DVT prophylaxis: Covered with Eliquis. Functional status: Ambulatory. Needs assist. Left hemiplegia resolved. Impairedendurance. Discharge planning: Home Wednesday or , pending FI. I spent greater than 15 minutes for services, including quio-bx-dizq encounter with the patient, discussion of the case, plan of care, and exam; and emafkpt-ps-evom activities, such as reviewing pertinent claims consultant documentation, recent therapy notes, laboratory and radiology studies, and discussion of case with care team including physician, nursing, vocational case manager, and therapists. More than 50 % of time was spent on patient/family counseling or coordination ofcare. Decision Plan: I completed a substantive portion of this encounter, the medical decision makingportion of this note in its entirety, including Allied health note review, nursing note review, claims consultant note review, discussion with nursing and case management, and more than 50% of my time was spent on counseling and coordination of care, time spent 25 minutes Patient was personally seen by me, Dr. Zaman, on the day of encounter, reviewed the history and the relevant portions of the chart, including current orders, allied health and claims consultant notes, labs/imaging and performed smith elements of exam and I formulated the plan of care and facilitated the medical decision making. Documented By: Stiven Zaman MD 06/23/221220 Signed By: <Electronically signed by Stiven Zaman MD> 06/23/222124 <Electronically signed by KIM Crowell> 06/23/228 [facility] Work Phone: 1([phone]) 762-300301-06-2023 Progress note Author Stiven Zaman [facility] June 19, 2022 3:19pm Note Date/Time June 19, 2022 3: 19pm [facility] [address] [place] [address] Physiatry(Rehab) Progress Note Signed Patient: Abdirahman Gomez MR#: [id number] : 1940 Acct:[id number] Age/Sex: 81 / F Adm Date: 3 Loc: Room: 3V5316-3 Type: ADM IN Attending Dr: Stiven Zaman [...] lobe. She presented to outside facility around [place] with several days of generalized weakness. Her troponins were elevated. She was transferred to [facility]. Cardiology was consulted, did not feel [...] blood in the stool on admission to [place], consistent with lower GI bleed. She was [...] 05:00 06/19/22 08:30 Narrative: General: cooperative, comfortable HENOR Head: normal to inspection Eyes General: appearance [...] mg 06/16/22 18:36 Bisacodyl 10 Mg Supp.Rect MA 06/16/23 18:35 DAILY PRN Constipation Carvedilol 12.5 mg 06/16/22 21:00 06/19/22 08:26 Carvedilol 12.5 Mg Tablet PO 06/16/23 20:59 12.5 mg BID JAK Administration Docusate Sodium 100 mg 06/16/22 18:36 Docusate 100 Mg Capsule PO 06/16/23 18:35 BID PRN Constipation Docusate Sodium 283 mg 06/16/22 18:36 Docusate Enema 283 Mg/5 Ml Enema MA 06/16/23 18:35 DAILY PRN Constipation Furosemide 20 [...] tizanidine with h/o afib. Chronic pain received [place] 5/[address] Faustin. Will change [...] Allied health note review, nursing note review, claims consultant note review, discussion with nursing and case management, and more than 50% of my time was spent on counseling and coordination of care, time spent 35 minutes Patient was personally seen by me, Dr. Zaman, on the day of encounter, reviewed the history and the relevant portions of the chart, including current orders, allied health and claims consultant notes, labs/imaging and performed smith elements of exam and I formulated the plan of care and facilitated the medical decision making. Documented By: Stiven Zaman MD 06/19/22 151 Signed By: <Electronically signed by Stiven Zaman MD> 06/19/22 1519 [facility] Work Phone: 1(915) 842-359501-05-2023 Progress note Author Stiven Zaman [facility] June 18, 2022 12:49pm Note Date/Time June 18, 2022 12 :49pm [facility] [address] [place] [address] Physiatry(Rehab) Progress Note Signed Patient: Abdirahman Gomez MR#: [id number] : 1940 Acct:[id number] Age/Sex: 81 / F Adm Date: 3 Loc: Room: 2J1464-8 Type: ADM IN Attending Dr: Stiven Zaman [...] lobe. She presented to outside facility around [place] with several days of generalized weakness. Her troponins were elevated. She was transferred to [facility]. Cardiology was consulted, did not feel [...] blood in the stool on admission to [place], consistent with lower GI bleed. She was [...] 05:00 06/18/22 05:00 Narrative: General: cooperative, comfortable HENOR Head: normal to inspection Eyes General: appearance [...] mg 06/16/22 18:36 Bisacodyl 10 Mg Supp.Rect MA 06/16/23 18:35 DAILY PRN Constipation Carvedilol 12.5 mg 06/16/22 21:00 06/18/22 07:49 Carvedilol 12.5 Mg Tablet PO 06/16/23 20:59 12.5 mg BID JAK Administration Docusate Sodium 100 mg 06/16/22 18:36 Docusate 100 Mg Capsule PO 06/16/23 18:35 BID PRN Constipation Docusate Sodium 283 mg 06/16/22 18:36 Docusate Enema 283 Mg/5 Ml Enema MA 06/16/23 18:35 DAILY PRN Constipation Furosemide 20 [...] tizanidine with h/o afib. Chronic pain received [place] 5/[address] Faustin. Will change [...] Allied health note review, nursing note review, claims consultant note review, discussion with nursing and case management, and more than 50% of my time was spent on counseling and coordination of care, time spent 30 minutes Patient was personally seen by me, Dr. Zaman, on the day of encounter, reviewed the history and the relevant portions of the chart, including current orders, allied health and claims consultant notes, labs/imaging and performed smith elements of exam and I formulated the plan of care and facilitated the medical decision making. Documented By: Stiven Zaman MD 06/18/22 124 Signed By: <Electronically signed by Stiven Zaman MD> 06/18/[address] [facility] Work Phone: 1([phone]) 856-603501-04-2023 History and physical note Author Stiven Zaman [facility] June 17, 2022 3:54pm Note Date/Time June 17, 2022 9: 40am [facility] [address] [place] [address] Physiatry (Rehab) H&P Signed Patient: Abdirahman Gomez MR#: [id number] : 1940 Acct:[id number] Age/Sex: 81 / F Adm Date: 3 Loc: 5T Room: [id number] Type: ADM IN Attending Dr: Stiven Zaman MD Copies to: MD Stiven Mccullough MD~ Date of Service: 06/17/2022 [facility] The patient was seen and examined on: 06/17/22 History of Present Illness: Ms. Gomez is a 81 year old female with history of CAD status post CABG, remote, atrial fibrillation, pacemaker placed, admitted to the rehabilitation unit with functional decline secondary to bilateral hemisphere cardioembolic stroke, right parietal lobe, left occipital lobe. She presented to outside facility around [place] with several days of generalized weakness. Her troponins were elevated. She was transferred to [facility]. Cardiology was consulted, did not feel [...] blood in the stool on admission to [place], consistent with lower GI bleed. She was cleared to remain on Eliquis. Etiologylikely mild diverticular bleed. On evaluation today she feels generally well. 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 She does not appreciate any significant weakness at this point. [facility] Vaccinated for COVID-19?: Yes Medical History A-fib [...] Bisacodyl (Bisacodyl 10 Mg Supp.Rect) 10 mg MA DAILY PRN PRN Reason: Constipation Stop: 06/16/23 18:35 Carvedilol (Carvedilol 12.5 Mg Tablet) 12.5 mg PO BID JAK Stop: 06/16/23 20:59 Last Admin: 06/17/22 08:04 Dose: 12.5 mg Docusate Sodium (Docusate 100 Mg Capsule) 100 mg PO BID PRN PRN Reason: Constipation Stop: 06/16/23 18:35 Docusate Sodium (Docusate Enema 283 Mg/5 Ml Enema) 283 mg MA DAILY PRN PRN Reason: Constipation Stop: 06/16/23 18:35 Furosemide (Furosemide 20 Mg Tablet) 20 mg PO DAILY JAK Stop: 06/17/23 08:59 Isosorbide Mononitrate (Isosorbide Mononitrate 24hr Er 60 Mg Tab.Er.24h) 60 mg PO DAILY [facility] Stop: 06/17/23 08:59 Lactulose (Lactulose 20 Gm/30 Ml Udc) 30 gm PO DAILY PRN PRN Reason: Constipation Stop: 06/16/23 18:35 Melatonin (Melatonin 5 Mg Tablet) 5 mg PO QHS PRN PRN Reason: Insomnia Stop: 06/16/23 18:34 Last Admin: 06/16/22 21:17 Dose: 5 mg Metformin HCl (Metformin 500 Mg Tablet) 500 mg PO DAILY [facility] Stop: 06/17/23 08:59 Montelukast Sodium (Montelukast 10 Mg Tablet) 10 mg PO HS [facility] Stop: 06/16/23 21:59 Last Admin: 06/16/22 21:17 Dose: 10 mg Omeprazole (Omeprazole 20 Mg Capsule.Dr) 40 mg PO DAILY [facility] Stop: 06/17/23 08:59 Last Admin: 06/17/22 08:07 Dose: 40 mg Polyethylene Glycol (Polyethylene Glycol 3350 17 Gm Powd.Pack) 17 gm PO DAILY JAK Stop: 06/17/23 08:59 Last Admin: 06/17/22 08:07 Dose: Not Given Potassium Chloride (Potassium Chloride Er 20 Meq Tab.Er.Prt) 20 meq PO DAILY [facility] Stop: 06/17/23 08:59 Last Admin: 06/17/22 08:07 Dose: 20 meq Pramipexole Dihydrochloride (Pramipexole 0.5 Mg Tablet) 0.5 mg PO HS [facility] Stop: 06/16/23 21:59 Last Admin: 06/16/22 22:34 Dose: 0.5 mg Psyllium Hydrophilic Mucilloid (Psyllium Husk 3.4 Gm Packet) 1 packet PO BID JAK Stop: 06/16/23 20:59 Last [...] 40 Mg Tablet) 40 mg PO BID JAK Stop: 06/16/23 20:59 Last Admin: 06/17/22 08:06 Dose: 40 mg Vitamin D (Cholecalciferol 125 Mcg (5,000 Units) Tablet) 125 mcg PO DAILY JAK Stop: 06/17/23 08:59 Last Admin: 06/17/22 08:06 Dose: 125 mcg Exam Physical Exam Vital Signs: Temp Pulse Resp BP Pulse Ox O2 Del Method 98.0 F 70 18 118/72 92 L Room Air 06/17/22 05:57 06/17/22 05:57 06/17/22 05:57 06/17/22 05:57 06/17/22 05:57 06/17/22 05:57 Narrative: General: cooperative, comfortable HENOR Head: normal to inspection Eyes General: appearance [...] % (Auto) 57.7 Lymph % (Auto) 29.1 [place] % (Auto) 9.4 Eos % (Auto) 2.4 Baso % (Auto) 1.4 Nucleat RBC Rel Count 0.0 Neut # (Auto) 6.3 Lymph # (Auto) 3.2 Swift # (Auto) 1.0 H Eos # (Auto) [...] 2 weeks Expected Discharge Destination: Home Rehabilitation IGC: 01.1 Primary Diagnosis: Stroke To have patient become more independent and to return home. Medical/ Functional Prognosis: Good Anticipated Functional Outcomes/Goals and Interventions: 1.Therapy Functional Outcome/Goal: Anticipate independent for bed mobility Anticipated interventions: Physician management, PT, OT, HOME PERFORMANCE CONSULTANT, , Dietitian, RehabNursing, Case management 2. Therapy Functional Outcome/Goal: Anticipate independent for transfers Anticipated interventions: Physician management, PT, OT, HOME PERFORMANCE CONSULTANT, Case management, Dietitian, Rehab Nursing 3. Therapy Functional Outcome/Goal: Anticipate independent for ambulation Anticipated interventions: Physician management, PT, OT, HOME PERFORMANCE CONSULTANT Case management, Dietitian, Rehab Nursing 4.Therapy Functional Outcome/Goal: Anticipate independent for self-care Anticipated interventions: Physician management, PT, OT, HOME PERFORMANCE CONSULTANT, Case management, Dietitian, Rehab Nursing 5.Therapy Functional Outcome/Goal: Anticipate independent for functional communication and swallowing Anticipated interventions: Physician management, PT, OT, HOME PERFORMANCE CONSULTANT, Case management, Dietitian, Rehab Nursing Required [...] additional therapy on as needed basis. Comments: HOME PERFORMANCE CONSULTANT to evaluate and treat patient?s cognition, language and communication skills, assess swallow function. Other: Dietitian, Rehab nursing, Wound, P&O, Neuropsychology as needed RATIONALE FOR IRF ADMISSION: Patient has both medical and functional complexities that require 24 hour daily monitoring and intervention from Door To Door Sales Representative as well as other consulting physicians including internal medicine as well as 24 hour daily particleboard factory worker nursing - for medical safe / optimal management. Patient requires interdisciplinary therapy team rehabilitation care including OT, PT, HOME PERFORMANCE CONSULTANT, SW, Psychology, Rehab Nursing, requires and [...] tizanidine with h/o afib. Chronic pain received [place] 5/[address] Faustin. Will change [...] Allied health note review, nursing note review, claims consultant note review, discussion with nursing and case management, and more than 50% of my time was spent on counseling and coordination of care, time spent 55 minutes Patient was personally seen by me, Dr. Zaman, on the day of encounter, reviewed the history and the relevant portions of the chart, including current orders, allied health and claims consultant notes, labs/imaging and performed smith elements of exam and I formulated the plan of care and facilitated the medical decision making. Documented By: Stiven Zaman MD 06/17/22 3587 Signed By: <Electronically signed by Stiven Zaman MD> 06/17/22 2025 [facility] Work Phone: 1(303) 472-972701-04-2023 Consult note Author Rafik Massouh [facility] June 17, 2022 1:33pm Note Date/Time June 17, 2022 1: 33pm [facility] [address] [place] [address] Hospitalist Consult Note Signed Patient: Abdirahman Gomez MR#: [id number] : 1940 Acct:[id number] Age/Sex: 81 / F Adm Date: 3 Loc: Room: [address] [place] [address] Type: ADM IN Attending Dr: Stiven Zaman MD Copies to: MD Stievn Mccullough MD Rafik Massouh, MD~ HPI DATE [...] mg 06/16/22 18:36 Bisacodyl 10 Mg Supp.Rect MA 06/16/23 18:35 DAILY PRN Constipation Carvedilol 12.5 mg 06/16/22 21:00 06/17/22 08:04 Carvedilol 12.5 Mg Tablet PO 06/16/23 20:59 12.5 mg BID JAK Administration Docusate Sodium 100 mg 06/16/22 18:36 Docusate 100 Mg Capsule PO 06/16/23 18:35 BID PRN Constipation Docusate Sodium 283 mg 06/16/22 18:36 Docusate Enema 283 Mg/5 Ml Enema MA 06/16/23 18:35 DAILY PRN Constipation Furosemide 20 [...] oriented to place, time and person HEENT: [place] conjunctiva and NL buccal mucosa Neck: Supple, [...] % (Auto) 57.7, Lymph % (Auto) 29.1, [place] % (Auto) 9.4, Eos % (Auto) 2.4, Baso % (Auto) 1.4, Nucleat RBC Rel Count 0.0, Neut # (Auto) 6.3, Lymph # (Auto) 3.2, Swift # (Auto) 1.0 H, Eos # (Auto) [...] PCP and out patient providers to obtain [facility] record entirely to follow up on illnesses, symptoms, abnormal findings that I have and have not addressed during this encounter and hospitalization in out patient setting. Documented By: Frida De La Cruz MD 06/17/22 1329 Signed By: <Electronically signed by Frida De La Cruz MD> 06/17/[address] [facility] Work Phone: 1([phone]) 102-829601-03-2023 Progress note Author Frida De La Cruz [facility] June 16, 2022 11:42am Note Date/Time June 16, 2022 11 :42am [facility] [address] [place] [address] Progress Note Signed Patient: Abdirahman Gomez MR#: [id number] : 1940 Acct:[id number] Age/Sex: 81 / F Adm Date: 2 Loc: Room: [address] [place] [address] Type: ADM IN Attending Dr: Frida De [...] Frida De La Cruz MD> 06/16/22 1142 [facility] Work Phone: 1([phone]) 778-148301-03-2023 Discharge summary Author Frida De La Cruz [facility] June 16, 2022 8:32am Note Date/Time June 16, 2022 8: 24am [facility] [address] [place] [address] Discharge Summary Signed with Addenda Patient: Abdirahman Gomez MR#: [id number] : 1940 Acct:[id number] Age/Sex: 81 / F Adm Date: 2 Loc: 3T Room: 3Q3138-[address]: Frida De La Cruz MD Copies to: MD Frida Mccullough MD~ ADDENDUM2 In addition patient was noted to have borderline hyperglycemia. Hemoglobin A1c is 5.9. Fasting blood sugar is 136. I suspect that patient has a degree of type 2 diabetes. Recheck fasting blood sugar. Start patient on metformin Addendum Documented By: Frida De La Cruz MD 06/16/2232 Addendum Signed By: <Electronically signed by Frida [...] fib with RVR. She was seen by air conditioning mechanic industrial. She was recommended to be on Eliquis [...] % (Auto) 61.6, Lymph % (Auto) 27.7, [place] % (Auto) 6.9, Eos % (Auto) 2.6, Baso % (Auto) 1.2, Nucleat RBC Rel Count 0.1, Neut # (Auto) 6.6, Lymph # (Auto) 2.9, Swift # (Auto) 0.7, Eos # (Auto) 0.3, [...] oriented to place, time and person HEENT: [place] conjunctiva and NL buccal mucosa Neck: Supple, [...] Discharge Plan Discharge Plan Patient Disposition: Rehab [facility] Activity: No Activity Restriction Diet: Low-Sodium and [...] ask your primary care provider to obtain [facility] records entirely to follow up on all of the abnormal physical, laboratory, and imaging findings that I have not addressed. Please return back to the emergency room or seek medical attention if your symptoms worsen or return. Discharging you from [facility] does not mean that your medical [...] by Frida De La Cruz MD> 06/16/22823 [facility] Work Phone: 1(405) 472-658001-02-2023 Progress note Author Frida De La Cruz [facility] June 15, 2022 8:38am Note Date/Time June 15, 2022 8: 38am [facility] [address] [place] [address] Hospitalist Progress Note Signed Patient: Abdirahman Gomez MR#: [id number] : 1940 Acct:[id number] Age/Sex: 81 / F Adm Date: 2 Loc: 3T Room: [address] [place] [address] Type: ADM IN Attending Dr: Frida De [...] oriented to place, time and person HEENT: [place] conjunctiva and NL buccal mucosa Neck: Supple, [...] Capsule.Dr PO 06/09/23 08:59 40 mg BID AJK Administration Ondansetron HCl 4 mg 06/09/22 04:43 [...] Documented By: Frida De La Cruz MD 06/15/22 0836 Signed By: <Electronically signed by Frida De La Cruz MD> 06/15/[address] [facility] Work Phone: 1([phone]) 117-797401-01-2023 Progress note Author Nathaniel Castillo [facility] June 14, 2022 2:53pm Note Date/Time June 14, 2022 2: 53pm [facility] [address] [place] [address] Hospitalist Progress Note Signed Patient: Abdirahman Gomez MR#: [id number] : 1940 Acct:[id number] Age/Sex: 81 / F Adm Date: 2 Loc: Room: [address] [place] [address] Type: ADM IN Attending Dr: Nathaniel Castillo [...] Air 2 06/14/22 04:00 06/14/22 12:00 06/14/22 12:06/14/22 12:00 06/14/22 12:00 06/14/22 12:00 06/09/22 12:00 [...] STATUS: Full Documented By: Nathaniel Castillo MD 06/14/221450 Signed By: <Electronically signed by Nathaniel Castillo MD> 06/14/[address] [facility] Work Phone: 1(834) 682-414012-31-2022 Progress note Author Yoav Prado [facility] June 13, 2022 2:58pm Note Date/Time June 13, 2022 2:56pm [facility] [address] [place] [address] Cardiology Progress Note Signed Patient: Abdirahman Gomez MR#: [id number] : 1940 Acct:[id number] Age/Sex: 81 / F Adm Date: 2 Loc: Room: [address] [place] [address] Type: ADM IN Attending Dr: Nathaniel Castillo [...] any assistance Documented By: Yoav Prado MD 06/13/221455 Signed By: <Electronically signed by MD Yoav Prado> 06/13/22 1458 [facility] Work Phone: 1(223) 795-578312-31-2022 Progress note Author Nathaniel Castillo [facility] June 13, 2022 2:00pm Note Date/Time June 13, 2022 9:29am [facility] [address] [place] [address] Hospitalist Progress Note Signed Patient: Abdirahman Gomez MR#: [id number] : 1940 Acct:[id number] Age/Sex: 81 / F Adm Date: 2 Loc: Room: [address] [place] [address] Type: ADM IN Attending Dr: Nathaniel Castillo [...] of care and confirmed it with the resident/student/MANAGER PAYMENT. Patient resting in bed comfortably. Denies chest [...] Full Documented By: Nathaniel Castillo MD 06/13/22 0927 Signed By: <Electronically signed by Nathaniel Castillo MD> 06/13/22 1400 <Electronically signed by DO RYAN Juarez> 06/13/[address] [facility] Work Phone: 1(534) 169-224912-30-2022 Progress note Author Nathaniel Castillo [facility] June 12, 2022 3:02pm Note Date/Time June 12, 2022 1:38pm [facility] [address] [place] [address] Hospitalist Progress Note Signed Patient: Abdirahman Gomez MR#: [id number] : 1940 Acct:[id number] Age/Sex: 81 / F Adm Date: 2 Loc: Room: [address] [place] [address] Type: ADM IN Attending Dr: Nathaniel Castillo [...] of care and confirmed it with the resident/student/MANAGER PAYMENT. Patient resting in chair comfortably. 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 strength left hand prescription benefit specialist, full strength with flexion and extension of [...] Tablet PO 06/10/23 21:59 Not Given HS [facility] Carvedilol 12.5 mg 06/09/22 08:00 06/12/22 08:30 Carvedilol 12.5 Mg Tablet PO 06/09/23 07:59 12.5 mg BID.WITH.MEALS JAK Administration Melatonin 5 mg 06/09/22 04:43 06/10/22 21:43 Melatonin 5 Mg Tablet PO 06/09/23 04:42 5 mg QHS PRN Administration Insomnia Montelukast Sodium 10 mg 06/09/22 22:00 06/12/22 00:28 Montelukast 10 Mg Tablet PO 06/09/23 21:59 Not Given HS [facility] Nitroglycerin 0.4 mg 06/10/22 10:05 Nitroglycerin 0.4 Mg Tab.Subl SUBLINGUAL 06/10/23 10:04 Q5MIN.X3 PRN Chest Pain Omeprazole 40 mg 06/09/22 09:00 06/12/22 08:29 Omeprazole 20 Mg Capsule.Dr PO 06/09/23 08:59 40 mg BID JAK Administration Ondansetron HCl 4 mg 06/09/22 04:43 06/09/22 12:20 Ondansetron 4 Mg/2 Ml Vial IV-PUSH 06/09/23 04:42 4 mg Q8H PRN Administration Nausea And Vomiting Pramipexole Dihydrochloride 0.5 mg 06/09/22 22:00 06/12/22 00:28 Pramipexole 0.5 Mg Tablet PO 06/09/23 21:59 Not Given HS [facility] Tizanidine HCl 4 mg 06/09/22 04:53 06/10/22 [...] signed by DO RYAN Juarez> 06/12/[address] [facility] Work Phone: 1(486) 303-980312-30-2022 Progress note Author Paramjit Pride [facility] June 12, 2022 11:05am Note Date/Time June 12, 2022 11:05am [facility] [address] [place] [address] Cardiology Progress Note Signed Patient: Abdirahman Gomez MR#: [id number] : 1940 Acct:[id number] Age/Sex: 81 / F Adm Date: 2 Loc: Room: [address] [place] [address] Type: ADM IN Attending Dr: Nathaniel Castillo [...] (min): 20 Documented By: Paramjit Pride MD 06/12/22 1102 Signed By: <Electronically signed by Paramjit Pride MD> 06/12/22 1105 [facility] Work Phone: 1(242) 231-692112-29-2022 Progress note Author Nathaniel Castillo [facility] June 11, 2022 4:24pm Note Date/Time June 11, 2022 12:40pm [facility] [address] [place] [address] Hospitalist Progress Note Signed Patient: Abdirahman Gomez MR#: [id number] : 1940 Acct:[id number] Age/Sex: 81 / F Adm Date: 2 Loc: Room: [address] [place] [address] Type: ADM IN Attending Dr: Nathaniel Castillo [...] of care and confirmed it with the resident/student/MANAGER PAYMENT. Patient resting in bed comfortably. Denies chest [...] nerves grossly intact, full strength left hand prescription benefit specialist which is improved upon yesterday's exam, full [...] 06/09/22 09:00 06/11/22 08:38 Omeprazole 20 Mg Capsule. PO 06/09/23 08:59 [...] signed by DO RYAN Juarez> 06/11/[address] [facility] Work Phone: 1(411) 173-227312-29-2022 Progress note Author Paramjit Pride [facility] June 11, 2022 9:45am Note Date/Time June 11, 2022 9:46am [facility] [address] [place] [address] Cardiology Progress Note Signed Patient: Abdirahman Gomez MR#: [id number] : 1940 Acct:[id number] Age/Sex: 81 / F Adm Date: 2 Loc: Room: [address] [place] [address] Type: ADM IN Attending Dr: Nathaniel Castillo [...] % (Auto) 65.1 Lymph % (Auto) 24.1 Swift % (Auto) 9.1 Eos % (Auto) 1.2 Baso % (Auto) 0.5 Nucleat RBC Rel Count 0.1 Neut # (Auto) 7.4 Lymph # (Auto) 2.8 Swift # (Auto) 1.0 H Eos # (Auto) [...] ECG: Assessment/Problem Details: With baseline 0.5 mm DIONISIO with pathologic Q waves in the inferior [...] 20 Documented By: Paramjit Pride MD 06/11/22 Signed By: <Electronically signed by Paramjit Pride MD> 06/11/22 3523 [facility] Work Phone: 1(604) 584-258312-28-2022 Progress note Author Paramjit Tann [facility] June 10, 2022 6:21pm Note Date/Time June 10, 2022 12:12pm [facility] [address] [place] [address] Cardiology Progress Note Signed with Addenda Patient: Abdirahman Gomez MR#: [id number] : 1940 Acct:[id number] Age/Sex: 81 / F Adm Date: 2 Loc: Room: [address] [place] [address] Type: ADM IN Attending Dr: Nathaniel Castillo [...] EKG. The patient's troponin peaked initially in [place] emergency department at 9000and is now come [...] H* Echocardiogram Signed Patient: Abdirahman Gomez MR#: [id number] : 1940 Acct:[id number] Age/Sex: 81 / F ADM Date: 06/09/22 Loc: Room:? 8P3527-5 Type:?ADM IN Attending Dr: Nathaniel Castillo MD Ordering Provider: Marta Juarez DO, RES Date of Service: 06/09/22 ECH/ECH echo transthoracic: elevated trop, afib Copies to: Marta Juarez DO, RES Yoav Prado MD~ BSA: 1.7 m2? BP: 154/167 mmHg [...] Patient's baseline ECG shows 0.5 mm of DIONISIO in the inferior leads with associatedQ waves. [...] 30 Documented By: Paramjit Pride MD 06/10/22 1156 Signed By: <Electronically signed by Paramjit Pride MD> 06/10/[address] [facility] Work Phone: 1(219) 503-204612-28-2022 Progress note Author Nathaniel Castillo [facility] June 10, 2022 1:35pm Note Date/Time June 10, 2022 1:31pm [facility] [address] [place] [address] Progress Note Signed Patient: Abdirahman Gomez MR#: [id number] : 1940 Acct:[id number] Age/Sex: 81 / F Adm Date: 2 Loc: Room: [address] [place] [address] Type: ADM IN Attending Dr: Nathaniel Castillo [...] abnormalities, but upon review from a different air conditioning mechanic industrial, it was noted that she has akinesis and thinning of the basal inferior wall of LV suggestive of a prior PA. #2 atrial fibrillation. Patient had a small [...] <Electronically signed by Nathaniel Castillo MD> 06/10/22 5634 [facility] Work Phone: 1(409) 286-869112-27-2022 History and physical note Author Chema Milner [facility] June 09, 2022 8:18pm Note Date/Time June 09, 2022 4:14am [facility] [address] [place] [address] Hospitalist H&P Signed Patient: Abdirahman Gomez MR#: [id number] : 1940 Acct:[id number] Age/Sex: 81 / F Adm Date: 2 Loc: Room: [address] [place] [address] Type: ADM IN Attending Dr: Nathaniel Castillo MD Copies to: MD Chema Pham MD Douglas M Hoy, MD Samantha Mason, DO, RES~ HPI DATE OF EXAMINATION: 06/09/22 CHIEF COMPLAINT: Weakness HISTORY OF PRESENT ILLNESS: Patient is an 81-year-old female that is a transfer from [place] due to elevated troponins. Past medical history includes hypertension, hx CABG, presence of pacemaker, and paroxysmal atrial fibrillation. Patient had originally presented to the emergency room at [place] due to generalized weakness that started several [...] negative unless noted below or in [facility]PI [facility] Vacc[facility] for [facility]-19?: Yes Medical History [...] with Dr. Morton while patient was at [place]. It is not felt that patient is [...] plan of care and confirmed the nurse practitioners/residents/paralegal internship written note. Patient is a 81-year-old lady history of CAD status post CABG, hypertension, A. fib, presence of pacemaker presented to [place] due to weakness and bloody stools. Patient has history of diverticulosis. Hemoglobin 13.5. Incidentally troponins were significantly elevated but patient did not have any cardiac complaints. EKG with no acute ischemic changes. EKG reviewed by air conditioning mechanic industrial, not felt to be an acute ischemic event and recommended transfer to [facility] for further evaluation and management. Patient [...] Documented By: Rossi Valdez DO, RES 06/09/22 0411 Signed By: <Electronically signed by DO RYAN Valdez> 06/09/22 0609 <Electronically signed by Chema Milner MD> 06/09/222017 [facility] Work Phone: 1(652) 764-439912-27-2022 Consult note Author Paramjit Pride [facility] June 09, 2022 3:21pm Note Date/Time June 09, 2022 3:16pm [facility] [address] [place] [address] Cardiology Consult Note Signed Patient: Abdirahman Gomez MR#: [id number] : 1940 Acct:[id number] Age/Sex: 81 / F Adm Date: 2 Loc: Room: [address] [place] [address] Type: ADM IN Attending Dr: Nathaniel Castillo [...] CAB x3 done approximately 30years ago in [place] who was transferred to our facility from [facility] 2days ago after presenting complaining of generalized weakness but more pronounced weakness of the left arm and hand. The patient states she been feeling more weak and fatigued than normal over the preceding 10 days or so prior to her presentation. On the day that she presented to [facility] she noted that she felt very weak while in her shower. She felt like her left hand was numb and would not work. She apparently had aminor fall but suffered no injury with such. However EMS was activated. The patient was taken to [place] emergency department for evaluation. In the ER at [place] ER EKG was suspicious for ST segment [...] was anticoagulated and she was sent to [facility] for furtherevaluation. Since being here [facility] patient has had a mild increase [...] x10E3/uL Lymph # (Auto) 2.3 (1.00-4.8) x10E3/uL Swift # (Auto) 1.3 H (0.0-0.8) x10E3/uL Eos [...] AV and intraventricular conduction: 1 AV block PA, pacemaker, normal Myocardial infarction: inferior PA (old age indeterminate) Normal tracing: no change [...] discharge she can follow-up with her primary air conditioning mechanic industrial in [facility]. Documented By: Paramjit Pride MD 06/09/22 1508 Signed By: <Electronically signed by Paramijt Pride MD> 06/09/[address] [facility] Work Phone: 1(482) 392-183212-27-2022 Progress note Author Nathaniel Castillo [facility] June 09, 2022 3:06pm Note Date/Time June 09, 2022 1:59pm [facility] [address] [place] [address] Hospitalist Progress Note Signed Patient: Abdirahman Gomez MR#: [id number] : 1940 Acct:[id number] Age/Sex: 81 / F Adm Date: 12/27/2 2 Loc: Room: 0X4422-3 Type: ADM IN Attending Dr: Nathaniel Castillo [...] of care and confirmed it with the resident/student/MANAGER PAYMENT. Patient resting in bed comfortably. Denies chest [...] out of 5 strength on left hand prescription benefit specialist, full strength with flexion and extension of [...] Mg Tablet PO 06/09/23 21:59 HS JAK Omeprazole 40 mg 06/09/22 09:00 06/09/22 09:30 Omeprazole 20 Mg Capsule. PO 06/09/23 08:59 [...] 0.5 Mg Tablet PO 06/09/23 21:59 HS JAK Tizanidine HCl 4 mg 06/09/22 04:53 Tizanidine [...] and examination Only has decreased strength in prescription benefit specialist on the left upon my exam Denies [...] signed by Nathaniel Castillo MD> 06/09/[address] [facility] Work Phone: 1(970) 256-332406-15-2022 NoteMR#: [id number] I [facility] Pt. Name: Abdirahman Gomez Admitted: 11/22/2021 Discharged: [...] is an 81-year-old female who presented to [facility] with chief complaint of symptomatic bradycardia [...] Mcfadden PA-C Date Trans: 11/26/2021 06:47 A/daniel [id number] cc: Irish Faustin M.D. [address] [place] [address]IpsSycamore [facility] CenterEvaluation note* Diagnosis Onset Date Resolution Status A-fib acute Abnormal ECG acute Constipation acute Diverticulosis acute Elevated troponin acute Embolic stroke acute Hypertension acute Pacemaker acute Paroxysmal atrial fibrillation acute Upper extremity weakness acu te [facility] Work Phone: Evaluation note* Diagnosis Onset Date [...] acute Pacemaker acute Paroxysmal atrial fibrillation acute [facility] Work Phone: Hospital Discharge instructions Additional Instructions [...] ask your primary care provider to obtain [facility] records entirely to follow up on all of the abnormal physical, laboratory, and imaging findings that I have not addressed. Please return back to the emergency room or seek medical attention if your symptoms worsen or return. Discharging you from [facility] does not mean that your medical care ends here and now. You may still need additional monitoring, work up, investigation, and treatment plan to be handled from this point on by out patient providers including your primary care provider and specialists. For any medication question, please contact your retail pharmacist or your primary care provider. Thank you.[facility] Work Phone: Summary Purpose Family History No [...] and content) DATE CREATED AUTHOR 12/03/2021 [facility] DATE CREATED AUTHOR AUTHOR'S ORGANIZ ATION 06/16/[address] [facility] DATE CREATED AUTHOR AUTHOR'S ORGANIZ ATION 07/18/2022 [facility] DATE CREATED AUTHOR AUTHOR'S ORGANIZ ATION 08/03/2022 [facility] [place] DATE CREATED AUTHOR AUTHOR'S ORGANIZ ATION 06/30/2024 [facility] Care Teams (unrecognized sec tion and content) Team Status: Inactive Member Role Status Dates Irish Faustin MD Primary Care Provider Active Chema Mliner MD Admit Provider Active Frida De La Cruz MD Attending Provider Active Team Status: Active Member Role Status Dates Irish Faustin MD Primary Care Provider Active Team Status: Inactive Member Role Status Dates Irish Faustin MD Primary Care Provider Active Stiven Zaman MD Admit Provider, Attending Provider A ctive Barb Santillan , RN Other Provider Active Leta Calle , RN Other Provider Active Faina Shah , RN Other Provider Active Kell Nettles , RN Other Provider Active Leilani Nick , PARISA Other Provider Active Amina Aguiar , PARISA Other Provider Active Frida De La Cruz MD Other Provider Active Josue Espitia MD Other Provider Active Ramila Wallace APRN Other Provider Active Dewayne Rader , Other Provider Active Quinton Montana MD Other Provider Active Quinn Ortiz , Other Provider Active Nathaniel Castillo MD Other Provider Active Grace Greene MD Other Provider Active Nadine Cazares , ANP-BC Other Provider Active Aminata Pedraza MD Other Provider Active Boaz Castro MD Other Provider Active Jose Martin Lou MD Other Provider Active Olesya Toth MD Other Provider Active Demetrius Gutierrez DO Other Provider Active Hortencia Daigle MD Other Provider Active Alex Dominguez MD Other Provider Active Devora J [place] , MANAGER PAYMENT-C Other Provider Active Ga Kwong MD Other Provider Active Maurilio Banks MD Other Provider Active Chema Milner MD Other Provider Active Herminia Andrew , DO Other Provider Active Johnny Benson , DO Other Provider Active Rober Perez , DO Other Provider Active Brandi Cifuentes ASSURANCE SENIOR MANAGER INSURANCE Other Provider Active Devante Lafleur , DO [...] BE BASED ON THE PRIMARY CLINICAL RECORDS. [employer] [facility]. provides no warranty or guarantee of the accuracy or completeness of information in this document.
[2024-07-13 14:19] LABS: Influenza Virus A Antigen Negative; Influenza Virus B Antigen Negative; Internal Control Within Normal Limits; SARS-CoV-2 Ag NEGATIVE (NEGATIVE)
[2024-07-13 14:21] LABS: INR 1.06; Prothrombin Time 11.2 sec (9.0-11.6)
[2024-07-13 14:28] LABS: Alanine Aminotransferase 30 U/L (14-59); Albumin Globulin Ratio 0.7; Albumin Level 3.2 g/dL (3.4-5.0); Alkaline Phosphatase 77 U/L (46-116); Anion Gap 18.2; Aspartate Amino Transferase 39 U/L (15-37); Bilirubin Total 0.6 mg/dL (0.2-1.0); Calcium 9.1 mg/dL (8.5-10.1); Carbon Dioxide 23.6 mmol/L (21.0-32.0); Chloride 99 mmol/L (98-107); Estimated GFR (African America 60 (>=60 mL/min/1.73m^2); Estimated GFR (Non-African Ame 50 (>=60 mL/min/1.73m^2); Globulin 4.4 g/dL; Glucose 110 mg/dL (74-106); Potassium 4.8 mmol/L (3.5-5.1); Sodium 136 mmol/L (136-145); Total Protein 7.6 g/dL (6.4-8.2)
[2024-07-13 14:31] LABS: Lactate/Lactic Acid 1.8 mmol/L (0.4-2.0)
[2024-07-13 14:36] LABS: Troponin I High Sensitivity 9.5 pg/mL (4.0-51.3)
--- NOTE | 2024-07-13 14:37 | CT_ITS ---
[address] [address] Patient Name: ABDIRAHMAN GOMEZ MRN: [id number] date: 1940 Sex: F Assigned Patient Location: ER Current Patient Location: ER Accession/Order Number: [id number] Exam Date: 07/13/2024 14:50 Report Date: 07/13/2024 15:27 At the request of: NAT COCHRAN Procedure: CT chest w con EXAMINATION: CT chest w con HISTORY: Weakness, shortness of breath COMPARISON: CT chest 02/01/2023 TECHNIQUE: Multi-planar CT images were obtained without and/or with IV contrast as indicated by examination type. Axial, Coronal, and Sagittal images. Dose reduction techniques were achieved by using automated exposure control and/or adjustment of mA and/or kV according to patient size and/or use of iterative reconstruction technique. FINDINGS: LUNGS: Mild infiltrates within lower lobes bilaterally and mild bronchiectasis. PLEURA: No mass, effusion, or pneumothorax. VASCULATURE: No abnormality. DORA: No mass or adenopathy. MEDIASTINUM: Upper anterior mediastinal avidly enhancing mass, 2.5 x 1.9 x 2.2 cm. CARDIAC: No enlargement or pericardial thickening.. Coronary artery calcifications: AORTA: No aneurysm or dissection. CHEST WALL: Left chest wall cardiac pacer. No mass or axillary adenopathy. BONES: No bone lesion or fracture. LIMITED ABDOMEN: No suspicious findings Limited images of the upper abdomen. OTHER: Negative. CT/CT chest w con IMPRESSION: 1. Bilateral lower lobe mild infiltrates; nonspecific but suggestive of pneumonia. 2. 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 Consider ultrasound evaluation. Unchanged compared to 02/01/2023. Electronically authenticated by: ANTONIA ABDALLA Date: 07/13/2024 15:27
[2024-07-13 15:21] LABS: Bilirubin Urine NEGATIVE (NEGATIVE); Blood Urine TRACE-I (NEGATIVE); Clarity Urine CLEAR (CLEAR); Color Urine YELLOW (YELLOW); Glucose Urine UA NEGATIVE (NEGATIVE); Ketones Urine NEGATIVE (NEGATIVE); Leukocyte Esterase Urine SMALL (NEGATIVE); Nitrite Urine NEGATIVE (NEGATIVE); Protein Urine NEGATIVE (NEG/TRACE); Urobilinogen Urine 0.2 EU/dL (0.2-1.0)
[2024-07-13 15:30] LABS: Bacteria Urine SMALL #/HPF (NONE SEEN); Cast Seen? SEEN #/LPF (NONE SEEN); Crystals Seen? None Seen #/HPF (None Seen); Mucus Urine TRACE (NONE SEEN); RBC Urine 0-2 #/HPF (0-2); Squamous Epithelial Cell Urine MANY #/LPF (NONE/RARE); Transitional Epi Cells Urine RARE #/LPF (NONE SEEN)
[2024-07-13 15:31] LABS: Hyaline Casts Urine RARE; Urine Culture Indicated YES
[2024-07-13] MEDS: CEFTRIAXONE 1,000 MG in 0.9 % SODIUM CHLORIDE 50 ML 100 MG IV (16:03)
[2024-07-13] MEDS: AZITHROMYCIN 500 MG in 0.9 % SODIUM CHLORIDE 250 ML 250 MG IV (16:12)
--- OUTSIDE RECORDS SUMMARY | 2024-07-13 17:31 | XMS_ITS | CCD ---
Author Organization [facility] CliniSyak Care Team Providers Care Public Relations Officer Name Role Phone UNKNOWN, PHYSICIAN Referring Unavailable [...] Nick Consulting Unavailable Amina Aguiar Consulting Unavailable Frdia De La Cruz Consulting Unavailable NupurJosue K [...] Adhesive agent Drug allergy (disorder) 9 [facility] (3 sources) Ciprofloxacin Drug Allergy 6 [facility] (5 sources) Codeine; Translations: [CODEINE] Drug Allergy 9 Itching [facility] (1 source) paper tape; Translations: [paper tape] Propensity to adverse reactions (disorder) 2 [facility] (1 source) Desonide Drug Allergy [facility] (4 sources) Ciprofloxacin; Translations: [ciprofloxacin] Drug Allergy 2 Redness of Skin [facility] (1 source) Codeine Drug Allergy 2 [facility] (1 source) Amitriptyline; Translations: [AMITRIPTYLINE] Drug Allergy 4 [facility] (1 source) rosuvastatin; Translations: [ROSUVASTATIN] Drug Allergy 5 [facility] (1 source) ADHESIVE TAPE-SILICONES; Translations: [ADHESIVE TAPE-SILICONES] Propensity to adverse reactions to drug (disorder) 5 [facility] Medications Current Medications Medication Drug [...] June 16, 2022 10:52am polyethylene glycol 3350 99839 mg powder for oral solution (3 sources) [...] Start: 06-14-2022 take 2 tablets by mo [facility] twice daily Sennosides (Senna Lax) 8.6 mg [...] (2 sources) Start: 06-09-2022 End: 06-16-2022 take 71520 ug by mouth once daily Biotin Discontinued 56403 MCG PO Daily June 09, 2022 12:00am June 16, 2022 10:52am Magnesium Chloride (2 sources) Start: 06-09-2022 End: 06-16-2022 take 64 mg by mouth once daily Magnesium Chloride Discontinued 64 MG PO Daily June 09, 2022 12:00am June 16, 2022 10:52am Chadron-3 Fatty Acids-Vitamin E (Fish Oil) 1,000 mg Capsule (2 sources) Start: 06-09-2022 End: 06-16-2022 take 1 capsule by mouth once daily Chadron-3 Fatty Acids-Vitamin E (Fish Oil) 1,000 mg [...] disease (3 sources) Atherosclerotic heart disease of [place] coronary artery without angina pectoris; 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] Onset: 3 Chronic [...] 3 Chronic Other aftercare (1 source) Other extermination inspector (current) drug therapy; Translations: [OTH SKILLED NURSING CURRENT DRUG THERAPY] Onset: 3 Episodic Other aftercare (1 source) intermediate designer (current) use of aspirin; Translations: [CUPOLA CHARGER CURRENT USE OF ASPIRIN] Onset: 3 Episodic [...] Range Facility Office Visiton 04-17-2024 Follow-up visit [id number] Abdirahman Gomez 1940 F Date Provider Department Center 04/17/2024 Monico-SAMANTHA LAMB BRIA Saucedo [facility] Family History Problem Relation Age of Onset Aneurysm Mother Alcohol abuse Father Family Status - Relation Status Age at Mother Father Level of Service:33427 [place] OFFICE/OUTPATIENT ESTABLISHED LOW MDM 20 MIN Normal [facility] Basic Metabolic Panelon 06-14 Anion gap [Moles/Vol] 16.1 mmol/L High 6.0-15.0 [facility] Comment on above: Performed By: #### C BC, BMP #### [facility] [address] [place] [address] [place] Calcium [Mass/Vol] 9.4 mg/dL Normal 8.2-10.2 [facility] Comment on above: Performed By: #### C BC, BMP #### [facility] [address] [place] [address] [place] Chloride [Moles/Vol] 102 mmol/L Normal 95-114 [facility] Comment on above: Performed By: #### C BC, BMP #### [facility] [address] [place] [address] [place] CO2 [Moles/Vol] 20.7 mmol/L Low 22.0-30.0 [facility] Comment on above: Performed By: #### C BC, BMP #### [facility] [address] Creatinine [Mass/Vol] 0.84 mg/dL Normal 0.44-1.03 [facility] Comment on above: Performed By: #### C BC, BMP #### [facility] [address] [place] [address] [place] Creatinine Clr Calc Pharmacy 47.21 [facility] Comment on above: Result Comment: PERF ORMED BY: [place] [address] PATHOLOGIST FIBERLINE SUPERVISOR PILAR VILLARREAL M.D. Performed By: #### C BC, BMP #### [address] Estimated GFR ( Rose > 60 [facility] Comment on above: Result Comment: GFR estimated reference range: According to KDOQI guidelines, <60 ml/min/1.73m2 is sufficient to diagnose a patient with chronic kidney disease. Performed By: #### C BC, BMP #### [address] Estimated GFR (Non- Am > 60 [facility] Comment on above: Performed By: #### C BC, BMP #### [address] Glucose [Mass/Vol] 104 mg/dL High 70-100 [facility] Comment on above: Result Comment: [place] Glucose Reference Range is dependent on time and content of last meal. Glucose of more than 200 mg/dL in a nonstressed, ambulatory subject supports the diagnosis of Diabetes Mellitus. ADA recommended reference range Performed By: #### C BC, BMP #### [address] Potassium [Moles/Vol] 3.8 mmol/L Normal 3.5-5.1 [facility] Comment on above: Performed By: #### C BC, BMP #### [place] [address] [place] Sodium [Moles/Vol] 135 mmol/L Low 136-146 [facility] Comment on above: Performed By: #### C BC, BMP #### [facility] [address] Urea nitrogen [Mass/Vol] 10 mg/dL Normal 9-23 [facility] Comment on above: Performed By: #### C BC, BMP #### [facility] [address] [place] [address] [place] Basophils Auto (Bld) [#/Vol] Ordered By: Stiven Zaman on 06-23-2022 Basophils (Bld) [#/Vol] 0.1 10*3/uL 0.0-0.2 [facility] Basophils/100 WBC Auto (Bld) Ordered By: Stiven Zaman on 06-23-2022 Basophils/100 WBC (Bld) 0.8 % . [facility] Complete Blood Count Auto Di ffon 06-23-2022 Basophils (Bld) [#/Vol] 0.1 10*3/uL Normal 0.0-0.2 [facility] Comment on above: Result Comment: PERF ORMED BY: [place] [address] PATHOLOGIST FIBERLINE SUPERVISOR PILAR VILLARREAL M.D. Performed By: #### C BC, BMP #### [address] Basophils/100 WBC (Bld) 0.8 % Normal . [facility] Comment on above: Performed By: #### C BC, BMP #### [facility] [address] [place] [address] [place] Eosinophils (Bld) [#/Vol] 0.3 10*3/uL Normal 0.0-0.45 [facility] Comment on above: Performed By: #### C BC, BMP #### [address] Eosinophils/100 WBC (Bld) 3.2 % Normal . [facility] Comment on above: Performed By: #### C BC, BMP #### [address] Erythrocyte distribution width (RBC) [Ratio] 13.3 % Normal 11.9-15.3 [facility] Comment on above: Performed By: #### C BC, BMP #### [address] Hematocrit (Bld) [Volume fraction] 38.3 % Normal 34.0-46.4 [facility] Comment on above: Performed By: #### C BC, BMP #### [address] Hemoglobin (Bld) [Mass/Vol] 12.8 g/dL Normal 11.8-15.4 [facility] Comment on above: Performed By: #### C BC, BMP #### [address] Lymphocytes (Bld) [#/Vol] 2.6 10*3/uL Normal 1.00-4.8 [facility] Comment on above: Performed By: #### C BC, BMP #### [address] Lymphocytes/100 WBC (Bld) 31.9 % Normal . [facility] Comment on above: Performed By: #### C BC, BMP #### [address] MCH (RBC) [Entitic mass] 34.1 pg Normal 24.7-34.3 [facility] Comment on above: Performed By: #### C BC, BMP #### [address] MCV (RBC) [Entitic vol] 102.2 fL High 80-100 [facility] Comment on above: Performed By: #### C BC, BMP #### [address] Mean Corpuscular HGB Conc 33.4 g/dL Normal 32.0-35.0 [facility] Comment on above: Performed By: #### C BC, BMP #### [address] Monocytes (Bld) [#/Vol] 0.7 10*3/uL Normal 0.0-0.8 [facility] Comment on above: Performed By: #### C BC, BMP #### [facility] [address] Monocytes/100 WBC (Bld) 8.4 % Normal . [facility] Comment on above: Performed By: #### C BC, BMP #### [facility] [address] Neutrophils (Bld) [#/Vol] 4.5 10*3/uL Normal 1.8-7.7 [facility] Comment on above: Performed By: #### C BC, BMP #### [address] Neutrophils/100 WBC (Bld) 55.7 % Normal . [facility] Comment on above: Performed By: #### C BC, BMP #### [address] NRBC% 0.1 /100{WBC} Normal 0-0.5 [facility] Comment on above: Performed By: #### C BC, BMP #### [address] Platelet mean volume (Bld) [Entitic vol] 8.0 fL Normal 6.3-10.7 [facility] Comment on above: Performed By: #### C BC, BMP #### [place] [address] [place] Platelets (Bld) [#/Vol] 272 10*3/uL Normal 150-450 [facility] Comment on above: Performed By: #### C BC, BMP #### [facility] [address] [place] [address] [place] RBC (Bld) [#/Vol] 3.75 10*6/uL Normal 3.60-5.00 [facility] Comment on above: Performed By: #### C BC, BMP #### [place] [address] [place] WBC (Bld) [#/Vol] 8.1 10*3/uL Normal 3.8-11.6 [facility] Comment on above: Performed By: #### C BC, BMP #### [facility] [address] [place] [address] [facility] Creatinine and Glomerular fi ltration rate.predicted panel (S/P/Bld)Ordered By: Stiven Zaman on 06-23-2022 Creatinine [Mass/Vol] 0.84 mg/dL 0.44-1.03 [facility] Eosinophils Auto (Bld) [#/Vo l]Ordered By: Stiven Zaman on 06-23-2022 Eosinophils (Bld) [#/Vol] 0.3 10*3/uL 0.0-0.45 [facility] Eosinophils/100 WBC Auto (Bl d)Ordered By: Stiven Zaman on 06-23-2022 Eosinophils/100 WBC (Bld) 3.2 % . [facility] Erythrocyte distribution wid th Auto (RBC) [Ratio]Ordered By: Stiven Zaman on 06-23-2022 Erythrocyte distribution width (RBC) [Ratio] 13.3 % 11.9-15.3 [facility] Estimated glomerular filtrat ion rate (GFR) non- AmericanOrdered By: Stiven Zaman on 06-23-2022 GFR/1.73 sq M.predicted among non-blacks MDRD (S/P/Bld) [Vol rate/Area] > 60 mL/Min [facility] Hematocrit Auto (Bld) [Volum e fraction]Ordered By: Stiven Zaman on 06-23-2022 Hematocrit (Bld) [Volume fraction] 38.3 % 34.0-46.4 [facility] Hemoglobin [Mass/volume] in BloodOrdered By: Stiven Zaman on 06-23-2022 Hemoglobin (Bld) [Mass/Vol] 12.8 g/dL 11.8-15.4 [facility] Leukocytes [#/volume] correc zoe for nucleated erythrocytes in Blood by Automated counOrdered By: Stiven Zaman on 06-23-2022 WBC corrected for nucl RBC Auto (Bld) [#/Vol] 8.1 10*3/uL 3.8-11.6 [facility] Lymphocytes Auto (Bld) [#/Vo l]Ordered By: Stiven Zaman on 06-23-2022 Lymphocytes (Bld) [#/Vol] 2.6 10*3/uL 1.00-4.8 [facility] Lymphocytes/100 WBC Auto (Bl d)Ordered By: Stiven Zaman on 06-23-2022 Lymphocytes/100 WBC (Bld) 31.9 % . [facility] MCH Auto (RBC) [Entitic mass ]Ordered By: Stiven Zaman on 06-23-2022 MCH (RBC) [Entitic mass] 34.1 pg 24.7-34.3 [facility] MCHC Auto (RBC) [Mass/Vol]Or dered By: Stiven Zaman on 06-23-2022 MCHC (RBC) [Mass/Vol] 33.4 g/dL 32.0-35.0 [facility] MCV Auto (RBC) [Entitic vol] Ordered By: Stiven Zaman on 06-23-2022 MCV (RBC) [Entitic vol] 102.2 fL 80-100 [facility] Monocytes Auto (Bld) [#/Vol] Ordered By: Stiven Zaman on 06-23-2022 Monocytes (Bld) [#/Vol] 0.7 10*3/uL 0.0-0.8 [facility] Monocytes/100 WBC Auto (Bld) Ordered By: Stiven Zaman on 06-23-2022 Monocytes/100 WBC (Bld) 8.4 % . [facility] Neutrophils Auto (Bld) [#/Vo l]Ordered By: Stiven Zaman on 06-23-2022 Neutrophils (Bld) [#/Vol] 4.5 10*3/uL 1.8-7.7 [facility] Neutrophils/100 WBC Auto (Bl d)Ordered By: Stiven Zaman on 06-23-2022 Neutrophils/100 WBC (Bld) 55.7 % . [facility] No Panel InformationOrdered By: Stiven Zaman on 06-23-2022 Estimated GFR () > 60 mL/Min [facility] Comment on above: GFR estimated refere nce range: According to KDOQI guidelines, <60 ml/min/1.73m2 is sufficient to diagnose a patient with chronic kidney disease. Pharmacy Creatinine Clearance (Chem 47.21 [facility] Nucleated erythrocytes [Pres ence] in Blood by Automated countOrdered By: Stiven Zaman on 06-23-2022 Nucleated RBC Auto Ql (Bld) 0.1 /100{WBC} 0-0.5 [facility] Platelet mean volume Auto (B ld) [Entitic vol]Ordered By: Stiven Zaman on 06-23-2022 Platelet mean volume (Bld) [Entitic vol] 8.0 fL 6.3-10.7 [facility] Platelets Auto (Bld) [#/Vol] Ordered By: Stiven Zaman on 06-23-2022 Platelets (Bld) [#/Vol] 272 10*3/uL 150-450 [facility] RBC Auto (Bld) [#/Vol]Ordere d By: Stiven Zaman on 06-23-2022 RBC (Bld) [#/Vol] 3.75 10*6/uL 3.60-5.00 [facility] Serum or plasma anion gap de terminationOrdered By: Stiven Zaman on 06-23-2022 Anion gap [Moles/Vol] 16.1 mmol/L 6.0-15.0 [facility] Serum or plasma calcium jerrod urement (mass/volume)Ordered By: Stiven Zaman on 06-23-2022 Calcium [Mass/Vol] 9.4 mg/dL 8.2-10.2 [facility] Serum or plasma chloride salma surement (moles/volume)Ordered By: Stiven Zaman on 06-23-2022 Chloride [Moles/Vol] 102 mmol/L 95-114 [facility] Serum or plasma glucose jerrod urement (mass/volume)Ordered By: Stiven Zaman on 06-23-2022 Glucose [Mass/Vol] 104 mg/dL 70-100 [facility] Comment on above: ADA recommended refe rence rangeRandom Glucose Reference Range is dependent on time and content of last meal. Glucose of more than 200 mg/dL in a nonstressed, ambulatory subject supports the diagnosis of Diabetes Mellitus. Serum or plasma potassium me asurement (moles/volume)Ordered By: Stiven Zaman on 06-23-2022 Potassium [Moles/Vol] 3.8 mmol/L 3.5-5.1 [facility] Serum or plasma sodium measu rement (moles/volume)Ordered By: Stiven Zaman on 06-23-2022 Sodium [Moles/Vol] 135 mmol/L 136-146 [facility] Serum or plasma total carbon dioxide measurement (moles/volume)Ordered By: Stiven Zaman on 06-23-2022 CO2 [Moles/Vol] 20.7 mmol/L 22.0-30.0 [facility] Serum or plasma urea nitroge n measurement (mass/volume)Ordered By: Stiven Zaman on 06-23-2022 Urea nitrogen [Mass/Vol] 10 mg/dL 9-23 [facility] WBC Auto (Bld) [#/Vol]Ordere d By: Stiven Zaman on 06-23-2022 WBC (Bld) [#/Vol] 8.1 10*3/uL 3.8-11.6 [facility] Glucose Glucometer (BldC) [M ass/Vol]Ordered By: Stiven Zaman on 06-21-2022 Glucose [Mass/Vol] 108 mg/dL [facility] Comment on above: Random Glucose Refer ence Range is dependent on time and content of last meal. Glucose of more than 200 mg/dL in a nonstressed, ambulatory subject supports the diagnosis of Diabetes Mellitus. Glucose Poct Glucometerson 0 06-21-2022 Glucose [Mass/Vol] 108 mg/dL Normal [facility] Comment on above: Result Comment: [facility] Glucose Reference Range is dependent on time and content of last meal. Glucose of more than 200 mg/dL in a nonstressed, ambulatory subject supports the diagnosis of Diabetes Mellitus. PERFORMED BY: [facility] [address] [place] [address] PATHOLOGIST FIBERLINE SUPERVISOR PILAR VILLARREAL M.D. Performed By: #### G KIRA #### Point of Care testing , Glucose Poct Glucometerson 0 06-20-2022 Glucose [Mass/Vol] 93 mg/dL Normal [facility] Comment on above: Result Comment: [facility] Glucose Reference Range is dependent on time and content of last meal. Glucose of more than 200 mg/dL in a nonstressed, ambulatory subject supports the diagnosis of Diabetes Mellitus. PERFORMED BY: [place] [address] PATHOLOGIST FIBERLINE SUPERVISOR PILAR VILLARREAL M.D. Performed By: #### L IPID, A1C WTH eA #### [address] Glucose [Mass/Vol] 107 mg/dL Normal [facility] Comment on above: Result Comment: [place] om Glucose Reference Range is dependent on time and content of last meal. Glucose of more than 200 mg/dL in a nonstressed, ambulatory subject supports the diagnosis of Diabetes Mellitus. PERFORMED BY: [place] [address] PATHOLOGIST FIBERLINE SUPERVISOR PILAR VILLARREAL M.D. Performed By: #### G LULS #### Point of Care testing , Glucose Poct Glucometerson 0 06-19-2022 Commemt1 [facility] Comment on above: Result Comment: Glu2 : WILL NOTIFY DR/RN Performed By: #### G LULS #### Point of Care testing , Commemt2 Cleaned Meter [facility] Comment on above: Result Comment: PERF ORMED BY: [place] [address] PATHOLOGIST FIBERLINE SUPERVISOR PILAR VILLARREAL M.D. Performed By: #### G LULS #### Point of Care testing , Glucose [Mass/Vol] 118 mg/dL [facility] Comment on above: Result Comment: [place] om Glucose Reference Range is dependent on time and content of last meal. Glucose of more than 200 mg/dL in a nonstressed, ambulatory subject supports the diagnosis of Diabetes Mellitus. Performed By: #### G LULS #### Point of Care testing , Glucose [Mass/Vol] 97 mg/dL [facility] Comment on above: Result Comment: [place] om Glucose Reference Range is dependent on time and content of last meal. Glucose of more than 200 mg/dL in a nonstressed, ambulatory subject supports the diagnosis of Diabetes Mellitus. PERFORMED BY: [place] [id number] PATHOLOGIST FIBERLINE SUPERVISOR PILAR VILLARREAL M.D. Performed By: #### G LULS #### Point of Care testing , No Panel InformationOrdered By: Stiven Zaman on 06-19-2022 Bedside Glucose #2 Comment Cleaned meter [facility] Bedside Glucose Comment See comment [facility] Comment on above: Glu2: WILL NOTIFY DR /RN XR hip LT min 2V(w/wo pelvis )*on 06-19-2022 XR hip LT min 2V(w/wo pelvis)* [facility] [place] [address] [place] [address] XRay Report Signed Patient: Abdirahman Gomez MR#: [id number] : 1940 Acct:[id number] Age/Sex: 81 / F ADM Date: 06/16/22 Loc: Room: [address] [place] [address] Type: ADM IN Attending Dr: Stiven Zaman [...] Beasley Jr., D.OHuma06/19/2022 3:01 PM Dictation Location: [place] [address] Transcribed By: [facility] 06/19/22 1501 Dictated By: Stiven Beasley Jr, DO 06/19/22 1500 Signed By: 06/19/22 1501 Normal [facility] Glucose Poct Glucometerson 0 06-18-2022 Commemt1 Glu2: Cleaned Meter Normal [facility] Comment on above: Result Comment: PERF ORMED BY: [place] [address] PATHOLOGIST FIBERLINE SUPERVISOR PILAR VILLARREAL M.D. Performed By: #### G LULS #### Point of Care testing , Glucose [Mass/Vol] 105 mg/dL Normal [facility] Comment on above: Result Comment: [place] om Glucose Reference Range is dependent on time and content of last meal. Glucose of more than 200 mg/dL in a nonstressed, ambulatory subject supports the diagnosis of Diabetes Mellitus. Performed By: #### G LULS #### Point of Care testing , Glucose [Mass/Vol] 107 mg/dL Normal [facility] Comment on above: Result Comment: [place] om Glucose Reference Range is dependent on time and content of last meal. Glucose of more than 200 mg/dL in a nonstressed, ambulatory subject supports the diagnosis of Diabetes Mellitus. PERFORMED BY: [place] [address] PATHOLOGIST FIBERLINE SUPERVISOR PILAR VILLARREAL M.D. Performed By: #### C BC, BMP #### [place] [id number] [facility] US carotid doppler BIon 0 US carotid doppler BI [facility] [place] [address] [place] [address] Ultrasound Report Signed Patient: Abdirahman Gomez MR#: [id number] : 1940 Acct:[id number] Age/Sex: 81 / F ADM Date: 06/09/22 Loc: Room: [address] [place] [address] Type: DIS IN Attending Dr: Frida De [...] Bebo Howell MD06/18/2022 4:50 PM Dictation Location: [place] [address] Tech: Margaret Rust Transcribed By: CHANDRAKANT 06/18/221649 Dictated By: Bebo Howell MD 06/18/22 164 Signed By: 06/18/221649 [facility] Albumin [Mass/volume] in Ser um or PlasmaOrdered By: Stiven Zaman on 01-04-2023 Albumin [Mass/Vol] 3.3 g/dL 3.2-5.5 [facility] Complete Blood Count Auto Di ffon 06-17-2022 Basophils (Bld) [#/Vol] 0.2 10*3/uL Normal 0.0-0.2 [facility] Comment on above: Result Comment: PERF ORMED BY: [facility] [place] [place] [address] PATHOLOGIST FIBERLINE SUPERVISOR PILAR VILLARREAL M.D. Performed By: #### G LULS #### Point of Care testing , Basophils/100 WBC (Bld) 1.4 % Normal . [facility] Comment on above: Performed By: #### G LULS #### Point of Care testing , Eosinophils (Bld) [#/Vol] 0.3 10*3/uL Normal 0.0-0.45 [facility] Comment on above: Performed By: #### G LULS #### Point of Care testing , Eosinophils/100 WBC (Bld) 2.4 % Normal . [facility] Comment on above: Performed By: #### G LULS #### Point of Care testing , Erythrocyte distribution width (RBC) [Ratio] 13.2 % Normal 11.9-15.3 [facility] Comment on above: Performed By: #### G LULS #### Point of Care testing , Hematocrit (Bld) [Volume fraction] 38.9 % Normal 34.0-46.4 [facility] Comment on above: Performed By: #### G LULS #### Point of Care testing , Hemoglobin (Bld) [Mass/Vol] 12.8 g/dL Normal 11.8-15.4 [facility] Comment on above: Performed By: #### G LULS #### Point of Care testing , Lymphocytes (Bld) [#/Vol] 3.2 10*3/uL Normal 1.00-4.8 [facility] Comment on above: Performed By: #### G LULS #### Point of Care testing , Lymphocytes/100 WBC (Bld) 29.1 % Normal . [facility] Comment on above: Performed By: #### G LULS #### Point of Care testing , MCH (RBC) [Entitic mass] 33.5 pg Normal 24.7-34.3 [facility] Comment on above: Performed By: #### G LULS #### Point of Care testing , MCV (RBC) [Entitic vol] 102.3 fL High 80-100 [facility] Comment on above: Performed By: #### G LULS #### Point of Care testing , Mean Corpuscular HGB Conc 32.8 g/dL Normal 32.0-35.0 [facility] Comment on above: Performed By: #### G CARLEENLS #### Point of Care testing , Monocytes (Bld) [#/Vol] 1.0 10*3/uL High 0.0-0.8 [facility] Comment on above: Performed By: #### G CARLEENLS #### Point of Care testing , Monocytes/100 WBC (Bld) 9.4 % Normal . [facility] Comment on above: Performed By: #### G CARLEENLS #### Point of Care testing , Neutrophils (Bld) [#/Vol] 6.3 10*3/uL Normal 1.8-7.7 [facility] Comment on above: Performed By: #### G CARLEENLS #### Point of Care testing , Neutrophils/100 WBC (Bld) 57.7 % Normal . [facility] Comment on above: Performed By: #### G CARLEENLS #### Point of Care testing , NRBC% 0.0 /100{WBC} Normal 0-0.5 [facility] Comment on above: Performed By: #### G CARLEENLS #### Point of Care testing , Platelet mean volume (Bld) [Entitic vol] 7.5 fL Normal 6.3-10.7 [facility] Comment on above: Performed By: #### G LULS #### Point of Care testing , Platelets (Bld) [#/Vol] 309 10*3/uL Normal 150-450 [facility] Comment on above: Performed By: #### G LULS #### Point of Care testing , RBC (Bld) [#/Vol] 3.81 10*6/uL Normal 3.60-5.00 [facility] Comment on above: Performed By: #### Ginna MALONE #### Point of Care testing , WBC (Bld) [#/Vol] 10.9 10*3/uL Normal 3.8-11.6 [facility] Comment on above: Performed By: #### Ginna MALONE #### Point of Care testing , Comprehensive Metabolic Pane jazmin 06-17-2022 Albumin [Mass/Vol] 3.3 g/dL Normal 3.2-5.5 [facility] Comment on above: Performed By: #### Ginna MALONE #### Point of Care testing , Albumin/Globulin [Mass ratio] 0.9 {ratio} Normal [facility] Comment on above: Performed By: #### Ginna MALONE #### Point of Care testing , ALP [Catalytic activity/Vol] 76 U/L Normal 32-92 [facility] Comment on above: Performed By: #### Ginna MALONE #### Point of Care testing , ALT [Catalytic activity/Vol] 39 U/L Normal 10-60 [facility] Comment on above: Performed By: #### Ginna MALONE #### Point of Care testing , Anion gap [Moles/Vol] 13.1 mmol/L Normal 6.0-15.0 [facility] Comment on above: Performed By: #### Ginna MALONE #### Point of Care testing , AST [Catalytic activity/Vol] 52 U/L High 10-42 [facility] Comment on above: Performed By: #### Ginna MALONE #### Point of Care testing , Bilirubin [Mass/Vol] 0.5 mg/dL Normal 0.3-1.2 [facility] Comment on above: Performed By: #### Ginna MALONE #### Point of Care testing , Calcium [Mass/Vol] 9.0 mg/dL Normal 8.2-10.2 [facility] Comment on above: Performed By: #### Ginna MALONE #### Point of Care testing , Chloride [Moles/Vol] 106 mmol/L Normal 95-114 [facility] Comment on above: Performed By: #### G CARLEENLS #### Point of Care testing , CO2 [Moles/Vol] 20.6 mmol/L Low 22.0-30.0 [facility] Comment on above: Performed By: #### G CARLEENLS #### Point of Care testing , Creatinine [Mass/Vol] 0.78 mg/dL Normal 0.44-1.03 [facility] Comment on above: Performed By: #### G LULS #### Point of Care testing , Creatinine Clr Calc Pharmacy 50.13 [facility] Comment on above: Performed By: #### G LULS #### Point of Care testing , Estimated GFR ( Rose > 60 [facility] Comment on above: Result Comment: GFR estimated reference range: According to KDOQI guidelines, <60 ml/min/1.73m2 is sufficient to diagnose a patient with chronic kidney disease. Performed By: #### G CARLEENLS #### Point of Care testing , Estimated GFR (Non- Am > 60 [facility] Comment on above: Performed By: #### G CARLEENLS #### Point of Care testing , Globulin (S) [Mass/Vol] 3.6 g/dL Normal [facility] Comment on above: Performed By: #### G CARLEENLS #### Point of Care testing , Glucose [Mass/Vol] 107 mg/dL High 70-100 [facility] Comment on above: Result Comment: [facility] Glucose Reference Range is dependent on time and content of last meal. Glucose of more than 200 mg/dL in a nonstressed, ambulatory subject supports the diagnosis of Diabetes Mellitus. ADA recommended reference range Performed By: #### G LULS #### Point of Care testing , Potassium [Moles/Vol] 3.7 mmol/L Normal 3.5-5.1 [facility] Comment on above: Performed By: #### G LULS #### Point of Care testing , Protein [Mass/Vol] 6.9 g/dL Normal 6.1-7.9 [facility] Comment on above: Performed By: #### G LULS #### Point of Care testing , Sodium [Moles/Vol] 136 mmol/L Normal 136-146 [facility] Comment on above: Performed By: #### G LULS #### Point of Care testing , Urea nitrogen [Mass/Vol] 13 mg/dL Normal 9-23 [facility] Comment on above: Performed By: #### G LULS #### Point of Care testing , Globulin Calc (S) [Mass/Vol] Ordered By: Stiven Zaman on 06-17-2022 Globulin (S) [Mass/Vol] 3.6 g/dL [facility] Glucose Poct Glucometerson 0 06-17-2022 Commemt1 [facility] Comment on above: Result Comment: Glu2 : WILL NOTIFY DR/RN Performed By: #### G LULS #### Point of Care testing , Commemt2 Cleaned Meter [facility] Comment on above: Result Comment: PERF ORMED BY: [facility] [address] [place] [address] PATHOLOGIST FIBERLINE SUPERVISOR PILAR VILLARREAL M.D. Performed By: #### G LULS #### Point of Care testing , Glucose [Mass/Vol] 121 mg/dL Normal [facility] Comment on above: Result Comment: [facility] Glucose Reference Range is dependent on time and content of last meal. Glucose of more than 200 mg/dL in a nonstressed, ambulatory subject supports the diagnosis of Diabetes Mellitus. Performed By: #### G LULS #### Point of Care testing , Glucose [Mass/Vol] 105 mg/dL Normal [facility] Comment on above: Result Comment: [place] Glucose Reference Range is dependent on time and content of last meal. Glucose of more than 200 mg/dL in a nonstressed, ambulatory subject supports the diagnosis of Diabetes Mellitus. PERFORMED BY: [facility] [address] [place] [address] PATHOLOGIST FIBERLINE SUPERVISOR PILAR VILLARREAL M.D. Performed By: #### G LULS #### Point of Care testing , Prealbuminon 06-17-2022 Prealbumin [Mass/Vol] 24.1 mg/dL Normal 18.0-38.0 [facility] Comment on above: Result Comment: PERF ORMED BY: [facility] [address] [place] [address] PATHOLOGIST FIBERLINE SUPERVISOR PILAR VILLARREAL M.D. Performed By: #### L IPID, A1C WTH eA #### [facility] [address] Protein [Mass/volume] in Ser um or PlasmaOrdered By: Stiven Zaman on 06-17-2022 Protein [Mass/Vol] 6.9 g/dL 6.1-7.9 [facility] Serum or plasma alanine carney otransferase measurement without P-5'-P (enzymatic activiOrdered By: Stiven Zaman on 06-17-2022 ALT No additional P-5'-P [Catalytic activity/Vol] 39 U/L 10-60 [facility] Serum or plasma albumin/glob ulin mass ratioOrdered By: Stiven Zaman on 06-17-2022 Albumin/Globulin [Mass ratio] 0.9 {ratio} [facility] Serum or plasma alkaline ayad sphatase measurement (enzymatic activity/volume)Ordered By: Stiven Zaman on 06-17-2022 ALP [Catalytic activity/Vol] 76 U/L 32-92 [facility] Serum or plasma aspartate am inotransferase measurement (enzymatic activity/volume)Ordered By: Stiven Zaman on 06-17-2022 AST [Catalytic activity/Vol] 52 U/L 10-42 [facility] Serum or plasma prealbumin m easurement (mass/volume)Ordered By: Stiven Zaman on 06-17-2022 Prealbumin [Mass/Vol] 24.1 mg/dL 18.0-38.0 [facility] Serum or plasma total biliru bin measurement (mass/volume)Ordered By: Stiven Zaman on 06-17-2022 Bilirubin [Mass/Vol] 0.5 mg/dL 0.3-1.2 [facility] Basic Metabolic Panelon Anion gap [Moles/Vol] 14.0 mmol/L Normal 6.0-15.0 [facility] Comment on above: Performed By: #### L IPID, A1C WT eA #### [facility] [address] [place] [address] [place] Calcium [Mass/Vol] 9.5 mg/dL Normal 8.2-10.2 [facility] Comment on above: Performed By: #### L IPID, A1C WTH eA #### [facility] [address] [place] [address] [place] Chloride [Moles/Vol] 102 mmol/L Normal 95-114 [facility] Comment on above: Performed By: #### L IPID, A1C WT eA #### [facility] [address] CO2 [Moles/Vol] 21.7 mmol/L Low 22.0-30.0 [facility] Comment on above: Performed By: #### L IPID, A1C WT eA #### [facility] [address] [place] [address] Creatinine [Mass/Vol] 0.83 mg/dL Normal 0.44-1.03 [facility] Comment on above: Performed By: #### L IPID, A1C WT eA #### [facility] [address] [place] [address] [place] Creatinine Clr Calc Pharmacy 48.32 [facility] Comment on above: Result Comment: PERF ORMED BY: [place] [address] PATHOLOGIST FIBERLINE SUPERVISOR PILAR VILLARREAL M.D. Performed By: #### L IPID, A1C WT eA #### [facility] [address] [place] [address] Estimated GFR ( Rose > 60 [facility] Comment on above: Result Comment: GFR estimated reference range: According to KDOQI guidelines, <60 ml/min/1.73m2 is sufficient to diagnose a patient with chronic kidney disease. Performed By: #### L IPID, A1C WT eA #### [facility] [address] [place] [address] [place] Estimated GFR (Non- Am > 60 [facility] Comment on above: Performed By: #### L IPID, A1C WTH eA #### [facility] [address] [place] [address] [place] Glucose [Mass/Vol] 142 mg/dL High 70-100 [facility] Comment on above: Result Comment: [facility] Glucose Reference Range is dependent on time and content of last meal. Glucose of more than 200 mg/dL in a nonstressed, ambulatory subject supports the diagnosis of Diabetes Mellitus. ADA recommended reference range Performed By: #### L IPID, A1C WTH eA #### [facility] [address] Potassium [Moles/Vol] 3.7 mmol/L Normal 3.5-5.1 [facility] Comment on above: Performed By: #### L IPID, A1C WTH eA #### [facility] [address] [place] [address] [place] Sodium [Moles/Vol] 134 mmol/L Low 136-146 [facility] Comment on above: Performed By: #### L IPID, A1C WTH eA #### [facility] [address] [place] [address] [place] Urea nitrogen [Mass/Vol] 15 mg/dL Normal 9-23 [facility] Comment on above: Performed By: #### L IPID, A1C WTH eA #### [facility] [address] [place] [address] [place] Basophils Auto (Bld) [#/Vol] Ordered By: Frida De La Cruz on 06-15-2022 Basophils (Bld) [#/Vol] 0.1 10*3/uL 0.0-0.2 [facility] Basophils/100 WBC Auto (Bld) Ordered By: Frida De La Cruz on 06-15-2022 Basophils/100 WBC (Bld) 1.2 % . [facility] Complete Blood Count Auto Di ffon 06-15-2022 Basophils (Bld) [#/Vol] 0.1 10*3/uL Normal 0.0-0.2 [facility] Comment on above: Result Comment: PERF ORMED BY: [place] [address] PATHOLOGIST FIBERLINE SUPERVISOR PILAR VILLARREAL M.D. Performed By: #### L IPID, [address] eA #### [address] Basophils/100 WBC (Bld) 1.2 % Normal . [facility] Comment on above: Performed By: #### L IPID, A1C WT eA #### [address] Eosinophils (Bld) [#/Vol] 0.3 10*3/uL Normal 0.0-0.45 [facility] Comment on above: Performed By: #### L IPID, [facility] WT eA #### [address] Eosinophils/100 WBC (Bld) 2.6 % Normal . [facility] Comment on above: Performed By: #### L IPID, [address] eA #### [address] Erythrocyte distribution width (RBC) [Ratio] 13.7 % Normal 11.9-15.3 [facility] Comment on above: Performed By: #### L IPID, [address] eA #### [address] Hematocrit (Bld) [Volume fraction] 41.4 % Normal 34.0-46.4 [facility] Comment on above: Performed By: #### L IPID, [facility] WT eA #### [place] [address] [place] Hemoglobin (Bld) [Mass/Vol] 13.6 g/dL Normal 11.8-15.4 [facility] Comment on above: Performed By: #### L IPID, A1C WT eA #### [place] [address] [place] Lymphocytes (Bld) [#/Vol] 2.9 10*3/uL Normal 1.00-4.8 [facility] Comment on above: Performed By: #### L IPID, [facility] WT eA #### [facility] [address] [place] [address] [place] Lymphocytes/100 WBC (Bld) 27.7 % Normal . [facility] Comment on above: Performed By: #### L IPID, A1C WT eA #### [facility] [address] [place] [id number] [place] MCH (RBC) [Entitic mass] 33.9 pg Normal 24.7-34.3 [facility] Comment on above: Performed By: #### L IPID, [address] eA #### [facility] [address] [place] [address] [place] MCV (RBC) [Entitic vol] 103.3 fL High 80-100 [facility] Comment on above: Performed By: #### L IPID, [facility] WT eA #### [facility] [address] Mean Corpuscular HGB Conc 32.8 g/dL Normal 32.0-35.0 [facility] Comment on above: Performed By: #### L IPID, [address] eA #### [facility] [address] [place] [address] [place] Monocytes (Bld) [#/Vol] 0.7 10*3/uL Normal 0.0-0.8 [facility] Comment on above: Performed By: #### L IPID, [facility] WT eA #### [facility] [address] [place] [address] [place] Monocytes/100 WBC (Bld) 6.9 % Normal . [facility] Comment on above: Performed By: #### L IPID, A1C WT eA #### [facility] [address] [place] [address] [place] Neutrophils (Bld) [#/Vol] 6.6 10*3/uL Normal 1.8-7.7 [facility] Comment on above: Performed By: #### L IPID, A1C WT eA #### [facility] [address] [place] [id number] [place] Neutrophils/100 WBC (Bld) 61.6 % Normal . [facility] Comment on above: Performed By: #### L IPID, [address] eA #### [facility] [address] NRBC% 0.1 /100{WBC} Normal 0-0.5 [facility] Comment on above: Performed By: #### L IPID, [address] eA #### [address] Platelet mean volume (Bld) [Entitic vol] 8.0 fL Normal 6.3-10.7 [facility] Comment on above: Performed By: #### L IPID, [address] eA #### [address] Platelets (Bld) [#/Vol] 282 10*3/uL Normal 150-450 [facility] Comment on above: Performed By: #### L IPID, [address] eA #### [address] RBC (Bld) [#/Vol] 4.01 10*6/uL Normal 3.60-5.00 [facility] Comment on above: Performed By: #### L IPID, [address] eA #### [address] WBC (Bld) [#/Vol] 10.7 10*3/uL Normal 3.8-11.6 [facility] Comment on above: Performed By: #### L IPID, [address] eA #### [address] Creatinine and Glomerular fi ltration rate.predicted panel (S/P/Bld)Ordered By: Frida De La Cruz on 06-15-2022 Creatinine [Mass/Vol] 0.83 mg/dL 0.44-1.03 [facility] Eosinophils Auto (Bld) [#/Vo l]Ordered By: Frida De La Cruz on 06-15-2022 Eosinophils (Bld) [#/Vol] 0.3 10*3/uL 0.0-0.45 [facility] Eosinophils/100 WBC Auto (Bl d)Ordered By: Frida De La Cruz on 06-15-2022 Eosinophils/100 WBC (Bld) 2.6 % . [facility] Erythrocyte distribution wid th Auto (RBC) [Ratio]Ordered By: Frida De La Cruz on 06-15-2022 Erythrocyte distribution width (RBC) [Ratio] 13.7 % 11.9-15.3 [facility] Estimated glomerular filtrat ion rate (GFR) non- AmericanOrdered By: Frida De La Cruz on 06-15-2022 GFR/1.73 sq M.predicted among non-blacks MDRD (S/P/Bld) [Vol rate/Area] > 60 mL/Min [facility] Hematocrit Auto (Bld) [Volum e fraction]Ordered By: Frida De La Cruz on 06-15-2022 Hematocrit (Bld) [Volume fraction] 41.4 % 34.0-46.4 [facility] Hemoglobin [Mass/volume] in BloodOrdered By: Frida De La Cruz on 06-15-2022 Hemoglobin (Bld) [Mass/Vol] 13.6 g/dL 11.8-15.4 [facility] Leukocytes [#/volume] correc zoe for nucleated erythrocytes in Blood by Automated counOrdered By: Frida De La Cruz on 06-15-2022 WBC corrected for nucl RBC Auto (Bld) [#/Vol] 10.7 10*3/uL 3.8-11.6 [facility] Lymphocytes Auto (Bld) [#/Vo l]Ordered By: Frida De La Cruz on 06-15-2022 Lymphocytes (Bld) [#/Vol] 2.9 10*3/uL 1.00-4.8 [facility] Lymphocytes/100 WBC Auto (Bl d)Ordered By: Frida De La Cruz on 06-15-2022 Lymphocytes/100 WBC (Bld) 27.7 % . [facility] MCH Auto (RBC) [Entitic mass ]Ordered By: Frida De La Cruz on 06-15-2022 MCH (RBC) [Entitic mass] 33.9 pg 24.7-34.3 [facility] MCHC Auto (RBC) [Mass/Vol]Or dered By: Frida De La Cruz on 06-15-2022 MCHC (RBC) [Mass/Vol] 32.8 g/dL 32.0-35.0 [facility] MCV Auto (RBC) [Entitic vol] Ordered By: Frida De La Cruz on 06-15-2022 MCV (RBC) [Entitic vol] 103.3 fL 80-100 [facility] Monocytes Auto (Bld) [#/Vol] Ordered By: Frida De La Cruz on 06-15-2022 Monocytes (Bld) [#/Vol] 0.7 10*3/uL 0.0-0.8 [facility] Monocytes/100 WBC Auto (Bld) Ordered By: Frida De La Cruz on 06-15-2022 Monocytes/100 WBC (Bld) 6.9 % . [facility] Neutrophils Auto (Bld) [#/Vo l]Ordered By: Frida De La Cruz on 06-15-2022 Neutrophils (Bld) [#/Vol] 6.6 10*3/uL 1.8-7.7 [facility] Neutrophils/100 WBC Auto (Bl d)Ordered By: Frida De La Cruz on 06-15-2022 Neutrophils/100 WBC (Bld) 61.6 % . [facility] No Panel InformationOrdered By: Frida De La Cruz on 06-15-2022 Estimated GFR () > 60 mL/Min [facility] Comment on above: GFR estimated refere nce range: According to KDOQI guidelines, <60 ml/min/1.73m2 is sufficient to diagnose a patient with chronic kidney disease. Pharmacy Creatinine Clearance (Chem 48.32 [facility] Nucleated erythrocytes [Pres ence] in Blood by Automated countOrdered By: Frida De La Cruz on 06-15-2022 Nucleated RBC Auto Ql (Bld) 0.1 /100{WBC} 0-0.5 [facility] Platelet mean volume Auto (B ld) [Entitic vol]Ordered By: Frida De La Cruz on 06-15-2022 Platelet mean volume (Bld) [Entitic vol] 8.0 fL 6.3-10.7 [facility] Platelets Auto (Bld) [#/Vol] Ordered By: Frida De La Cruz on 06-15-2022 Platelets (Bld) [#/Vol] 282 10*3/uL 150-450 [facility] RBC Auto (Bld) [#/Vol]Ordere d By: Frida De La Cruz on 06-15-2022 RBC (Bld) [#/Vol] 4.01 10*6/uL 3.60-5.00 [facility] Serum or plasma anion gap de terminationOrdered By: Frida De La Cruz on 06-15-2022 Anion gap [Moles/Vol] 14.0 mmol/L 6.0-15.0 [facility] Serum or plasma calcium jerrod urement (mass/volume)Ordered By: Frida De La Cruz on 06-15-2022 Calcium [Mass/Vol] 9.5 mg/dL 8.2-10.2 [facility] Serum or plasma chloride salma surement (moles/volume)Ordered By: Frida De La Cruz on 06-15-2022 Chloride [Moles/Vol] 102 mmol/L 95-114 [facility] Serum or plasma glucose jerrod urement (mass/volume)Ordered By: Frida De La Cruz on 06-15-2022 Glucose [Mass/Vol] 142 mg/dL 70-100 [facility] Comment on above: ADA recommended refe rence rangeRandom Glucose Reference Range is dependent on time and content of last meal. Glucose of more than 200 mg/dL in a nonstressed, ambulatory subject supports the diagnosis of Diabetes Mellitus. Serum or plasma potassium me asurement (moles/volume)Ordered By: Frida De La Cruz on 06-15-2022 Potassium [Moles/Vol] 3.7 mmol/L 3.5-5.1 [facility] Serum or plasma sodium measu rement (moles/volume)Ordered By: Frida De La Cruz on 06-15-2022 Sodium [Moles/Vol] 134 mmol/L 136-146 [facility] Serum or plasma total carbon dioxide measurement (moles/volume)Ordered By: Frida De La Cruz on 06-15-2022 CO2 [Moles/Vol] 21.7 mmol/L 22.0-30.0 [facility] Serum or plasma urea nitroge n measurement (mass/volume)Ordered By: Frida De La Cruz on 06-15-2022 Urea nitrogen [Mass/Vol] 15 mg/dL 03-06 [facility] WBC Auto (Bld) [#/Vol]Ordere d By: Frida De La Cruz on 06-15-2022 WBC (Bld) [#/Vol] 10.7 10*3/uL 3.8-11.6 [facility] ECG 12 lead ECGon 06-14-2022 ECG 12 lead ECG [facility] [place] [address] [place], [place] [id number] Electrocardiograph Report Signed Patient: Abdirahman Gomez MR#: [id number] : 1940 Acct:[id number] Age/Sex: 81 / F ADM Date: 06/09/22 Loc: Room: [address] [place] [address] Type: DIS IN Attending Dr: Frida De [...] Yoav Prado MD 0 06/15/22 0617 Normal [facility] Troponin I High Sensitivityo n 06-14-2022 Troponin I High Sensitivity 906 pg/mL Off scale high 0-15 [facility] Comment on above: Result Comment: Crit ical value result called at 1642 on 06/14/22 PERFORMED BY: [place] [address] PATHOLOGIST FIBERLINE SUPERVISOR PILAR VILLARREAL M.D. Performed By: #### G KIRA #### Point of Care testing , Troponin I.cardiac [Mass/vol ume] in Serum or Plasma by High sensitivity methodOrdered By: Nathaniel Castillo on 06-14-2022 Troponin I.cardiac High sensitivity method [Mass/Vol] 906 pg/mL 0-15 [facility] Comment on above: Critical valueresult calledat 1642 on 06/14/22 A1C with Estimated Average Ginna tapia 06-13-2022 Glucose [Mass/Vol] 123 mg/dL Normal [facility] Comment on above: Result Comment: PERF ORMED BY: [place] [address] PATHOLOGIST FIBERLINE SUPERVISOR PILAR VILLARREAL M.D. Performed By: #### L IPID, A1C [facility] eA #### [facility] [address] [place] [address] HbA1c (Bld) [Mass fraction] 5.9 % High 4.3-5.6 [facility] Comment on above: Result Comment: Incr eased risk for diabetes: 5.7 - 6.4 diabetes: >6.4 glycemic control for adults with diabetes: <7.0 Performed By: #### L IPID, A1C WT eA #### [facility] [address] [place] [address] Cholesterol [Mass/volume] in Serum or PlasmaOrdered By: Nathaniel Castillo on 06-13-2022 Cholesterol [Mass/Vol] 150 mg/dL 140-200 [facility] Comment on above: Chol less than 200 m g/dl low riskChol 201-239 mg/dl borderline riskChol 240 mg/dl and greater high risk Cholesterol in LDL Calc [Mas s/Vol]Ordered By: Nathaniel Castillo on 06-13-2022 Cholesterol in LDL [Mass/Vol] 80 mg/dL 0-100 [facility] Comment on above: LDL ATP III CLASSIFI CATIONLDL less than 100 mg/dL OptimalLDL 100-129 mg/dL Near or above optimalLDL 130-159 mg/dL Borderline highLDL 160-189 mg/dL HighLDL greater than 189 mg/dL Very high Cholesterol in VLDL Calc [Ma ss/Vol]Ordered By: Nathaniel Castillo on 06-13-2022 Cholesterol in VLDL [Mass/Vol] 25 mg/dL [facility] ECG 12 lead ECGon 06-13-2022 ECG 12 lead ECG [facility] [place] [address] Electrocardiograph Report Signed Patient: Abdirahman Gomez MR#: [id number] : 1940 Acct:[id number] Age/Sex: 81 / F ADM Date: 06/09/22 Loc: Room: [address] [place] [address] Type: DIS IN Attending Dr: Frida De [...] By Ousmane Epstein DO 06/15 1119 Normal [facility] Glucose mean value [Mass/vol ume] in Blood Estimated from glycated hemoglobinOrdered By: Nathaniel Castillo on 06-13-2022 Average glucose Estimated from glycated hemoglobin (Bld) [Mass/Vol] 123 mg/dL [facility] Hemoglobin A1c percentageOrd ered By: Nathaniel Castillo on 06-13-2022 HbA1c (Bld) [Mass fraction] 5.9 % 4.3-5.6 [facility] Comment on above: Increased risk for d iabetes: 5.7 - 6.4diabetes: >6.4glycemic control for adults with diabetes: <7.0 Lipid Panelon 06-13-2022 Cholesterol [Mass/Vol] 150 mg/dL Normal 140-200 [facility] Comment on above: Result Comment: Chol less than 200 mg/dl low risk Chol 201-239 mg/dl borderline risk Chol 240 mg/dl and greater high risk Performed By: #### L IPID, A1C WT eA #### [facility] [address] Cholesterol in HDL [Mass/Vol] 45 mg/dL Normal 35-85 [facility] Comment on above: Result Comment: HDL CHOL ATP-III CLASSIFICATION Cardiovascular Risk HDL > or equal to 60 mg/dL LOW HDL < 40 mg/dL HIGH Performed By: #### L IPID, [address] eA #### [facility] [address] Cholesterol.total/Gabriela sterol in HDL [Mass ratio] 3.3 {ratio} Normal <5.0 [facility] Comment on above: Result Comment: PERF ORMED BY: [place] [address] PATHOLOGIST FIBERLINE SUPERVISOR PILAR VILLARREAL M.D. Performed By: #### L IPID, [address] eA #### [facility] [address] LDL Cholesterol,Calculated 80 mg/dL Normal 0-100 [facility] Comment on above: Result Comment: LDL ATP III CLASSIFICATION LDL less than 100 mg/dL Optimal LDL 100-129 mg/dL Near or above optimal LDL 130-159 mg/dL Borderline high LDL 160-189 mg/dL High LDL greater than 189 mg/dL Very high Performed By: #### L IPID, A1C WT eA #### [facility] [address] [place] [id number] [place] Triglyceride w/Reflex 127 mg/dL Normal 35-149 [facility] Comment on above: Result Comment: TRIG ATP III CLASSIFICATION TRIG less than 150 mg/dL Normal TRIG 150-199 mg/dL Borderline high TRIG 200-500 mg/dL High TRIG greater than 500 mg/dL Very high Standard traceable to the Center for Disease Conrtrol and Prevention (CDC) test method. Performed By: #### L IPID, A1C [facility] eA #### [facility] [address] VLDL CHOLESTEROL 25 mg/dL Normal [facility] Comment on above: Performed By: #### L IPID, A1C [facility] eA #### [facility] [address] Serum or plasma high density lipoprotein (HDL) cholesterol measurementOrdered By: Nathaniel Castillo on 06-13-2022 Cholesterol in HDL [Mass/Vol] 45 mg/dL 35-85 [facility] Comment on above: HDL CHOL ATP-III CLA SSIFICATION Cardiovascular RiskHDL > or equal to 60 mg/dL LOWHDL < 40 mg/dL HIGH Serum or plasma total choles terol/high density lipoprotein (HDL) cholesterol mass ratOrdered By: Nathaniel Castillo on 06-13-2022 Cholesterol.total/Gabriela sterol in HDL [Mass ratio] 3.3 {ratio} <5.0 [facility] Triglyceride [Mass/volume] i n Serum or PlasmaOrdered By: Nathaniel Castillo on 06-13-2022 Triglyceride [Mass/Vol] 127 mg/dL 35-149 [facility] Comment on above: TRIG ATP III CLASSIF ICATIONTRIG less than 150 mg/dL NormalTRIG 150-199 mg/dL Borderline highTRIG 200-500 mg/dL High TRIG greater than 500 mg/dL Very highStandard traceable to the Center for Disease Conrtrol and Prevention (CDC) test method. MR angio head wo conon 06-12 MR angio head wo con [facility] Main [place] [address] [place] [address] MRI Report Signed Patient: Abdirahman Gomez MR#: [id number] : 1940 Acct:[id number] Age/Sex: 81 / F ADM Date: 06/09/22 Loc: 3T Room: [address] [place] [address] Type: ADM IN Attending Dr: Nathaniel Castillo MD Copies to: Nathaniel Castillo MD Ordering Provider: Nathaniel Castillo MD Date of Service: 06/12/22 MR/MR angio head wo con: stroke MRA OF THE INTRACRANIAL CIRCULATION TECHNIQUE: 3-D [id number] imaging of the chitina of [place] obtained. HISTORY:LEFT arm weakness. The visualized carotid and the vertebrobasilar system are unremarkable. No abnormality of the anterior, middle and posterior cerebral arteries identified. No arterial occlusion, stenosis or dissection identified. No intracranial aneurysm identified. MR/MR angio head wo con IMPRESSION: UNREMARKABLE MRA OF THE INTRACRANIAL CIRCULATION. Impression dictated by: Mamadou Rodríguez M.D.06/12/2022 1:36 PM Dictation Location: [place] [address] Transcribed By: [facility] 06/12/22 1336 Dictated By: Mamadou Rodríguez DO 06/12/22 1330 Signed By: 06/12/22 1336 [facility] MR head/brain wo conon 06-12 MR head/brain wo con [facility] [place] [address] MRI Report Signed Patient: Abdirahman Gomez MR#: [id number] : 1940 Acct:[id number] Age/Sex: 81 / F ADM Date: 06/09/22 Loc: Room: [address] [place] [address] Type: ADM IN Attending Dr: Nathaniel Castillo [...] Beasley Jr., D.O.06/12/2022 10:02 AM Dictation Location: [place] [address] Transcribed By: [facility] 06/12/22 1002 Dictated By: Stiven Beasley Jr, DO 06/12/22 0950 Signed By: 06/12/22 1002 Normal [facility] Complete Blood Count Auto Di ffon 06-11-2022 Basophils (Bld) [#/Vol] 0.1 10*3/uL Normal 0.0-0.2 [facility] Comment on above: Result Comment: PERF ORMED BY: [facility] [address] [place] [address] PATHOLOGIST FIBERLINE SUPERVISOR PILAR VILLARREAL M.D. Performed By: #### G LULS #### Point of Care testing , Basophils/100 WBC (Bld) 0.5 % Normal . [facility] Comment on above: Performed By: #### G LULS #### Point of Care testing , Eosinophils (Bld) [#/Vol] 0.1 10*3/uL Normal 0.0-0.45 [facility] Comment on above: Performed By: #### G LULS #### Point of Care testing , Eosinophils/100 WBC (Bld) 1.2 % Normal . [facility] Comment on above: Performed By: #### G LULS #### Point of Care testing , Erythrocyte distribution width (RBC) [Ratio] 13.6 % Normal 11.9-15.3 [facility] Comment on above: Performed By: #### G LULS #### Point of Care testing , Hematocrit (Bld) [Volume fraction] 37.7 % Normal 34.0-46.4 [facility] Comment on above: Performed By: #### G LULS #### Point of Care testing , Hemoglobin (Bld) [Mass/Vol] 12.4 g/dL Normal 11.8-15.4 [facility] Comment on above: Performed By: #### G CARLEENLS #### Point of Care testing , Lymphocytes (Bld) [#/Vol] 2.8 10*3/uL Normal 1.00-4.8 [facility] Comment on above: Performed By: #### G CARLEENLS #### Point of Care testing , Lymphocytes/100 WBC (Bld) 24.1 % Normal . [facility] Comment on above: Performed By: #### G CARLEENLS #### Point of Care testing , MCH (RBC) [Entitic mass] 34.5 pg High 24.7-34.3 [facility] Comment on above: Performed By: #### G CARLEENLS #### Point of Care testing , MCV (RBC) [Entitic vol] 104.5 fL High 80-100 [facility] Comment on above: Performed By: #### G CARLEENLS #### Point of Care testing , Mean Corpuscular HGB Conc 33.0 g/dL Normal 32.0-35.0 [facility] Comment on above: Performed By: #### G CARLEENLS #### Point of Care testing , Monocytes (Bld) [#/Vol] 1.0 10*3/uL High 0.0-0.8 [facility] Comment on above: Performed By: #### G CARLEENLS #### Point of Care testing , Monocytes/100 WBC (Bld) 9.1 % Normal . [facility] Comment on above: Performed By: #### G CARLEENLS #### Point of Care testing , Neutrophils (Bld) [#/Vol] 7.4 10*3/uL Normal 1.8-7.7 [facility] Comment on above: Performed By: #### G CARLEENLS #### Point of Care testing , Neutrophils/100 WBC (Bld) 65.1 % Normal . [facility] Comment on above: Performed By: #### G CARLEENLS #### Point of Care testing , NRBC% 0.1 /100{WBC} Normal 0-0.5 [facility] Comment on above: Performed By: #### G LULS #### Point of Care testing , Platelet mean volume (Bld) [Entitic vol] 8.0 fL Normal 6.3-10.7 [facility] Comment on above: Performed By: #### G LULS #### Point of Care testing , Platelets (Bld) [#/Vol] 206 10*3/uL Normal 150-450 [facility] Comment on above: Performed By: #### G LULS #### Point of Care testing , RBC (Bld) [#/Vol] 3.61 10*6/uL Normal 3.60-5.00 [facility] Comment on above: Performed By: #### G LULS #### Point of Care testing , WBC (Bld) [#/Vol] 11.4 10*3/uL Normal 3.8-11.6 [facility] Comment on above: Performed By: #### G LULS #### Point of Care testing , ECG 12 lead ECGon 06-11-2022 ECG 12 lead ECG [facility] [place] [address] Electrocardiograph Report Signed Patient: Abdirahman Gomez MR#: [id number] : 1940 Acct:[id number] Age/Sex: 81 / F ADM Date: 06/09/22 Loc: Room: [address] [place] [address] Type: DIS IN Attending Dr: Frida De [...] By Yoav Prado MD 1 1318 Normal [facility] Troponin I High Sensitivityo n 06-11-2022 Troponin I High Sensitivity 3701 pg/mL Off scale high 0-15 [facility] Comment on above: Result Comment: Resu lts called at 0655 on 06/11/22 PERFORMED BY: [place] [address] PATHOLOGIST FIBERLINE SUPERVISOR PILAR VILLARREAL M.D. Performed By: #### L IPID, A1C [facility] eA #### [place] [id number] [facility] XR chest 1V portableon 06-11 XR chest 1V portable [facility] Main [place] [address] [place] [address] XRay Report Signed Patient: Abdirahman Gomez MR#: [id number] : 1940 Acct:[id number] Age/Sex: 81 / F ADM Date: 06/09/22 Loc: Room: [address] [place] [address] Type: ADM IN Attending Dr: Nathaniel Castillo [...] Beasley Jr., D.OHuma06/11/2022 3:33 PM Dictation Location: [place] [address] Transcribed By: [facility] 06/11/22 1533 Dictated By: Stiven Beasley Jr DO 06/11/22 1533 Signed By: 06/11/22 1533 [facility] ECG 12 lead ECGon 06-10-2022 ECG 12 lead ECG [facility] Main [place] [id number] Electrocardiograph Report Signed Patient: Abdirahman Gomez MR#: [id number] : 1940 Acct:[id number] Age/Sex: 81 / F ADM Date: 06/09/22 Loc: 3T Room: [address] [place] [address] Type: DIS IN Attending Dr: Frida De [...] By Yoav Prado MD 1 08/11/21 1626 [facility] ECG 12 lead ECG [facility] Main [address] [address] Electrocardiograph Report Signed Patient: Abdirahman Gomez MR#: [id number] : 1940 Acct:[id number] Age/Sex: 81 / F ADM Date: 06/09/22 Loc: Room: [address] [place] [address] Type: DIS IN Attending Dr: Frida De [...] By Yoav Prado MD 1 08/11/21 1626 [facility] Basic Metabolic Panelon 12-2 Anion gap [Moles/Vol] 13.4 mmol/L Normal 6.0-15.0 [facility] Comment on above: Performed By: #### L IPID, [address] eA #### [facility] [address] [place] [id number] [place] Calcium [Mass/Vol] 8.9 mg/dL Normal 8.2-10.2 [facility] Comment on above: Performed By: #### L IPID, [address] eA #### [facility] [address] [place] [address] [place] Chloride [Moles/Vol] 106 mmol/L Normal 95-114 [facility] Comment on above: Performed By: #### L IPID, [address] eA #### [facility] [address] [place] [address] [place] CO2 [Moles/Vol] 21.6 mmol/L Low 22.0-30.0 [facility] Comment on above: Performed By: #### L IPID, [address] eA #### [facility] [address] [place] [id number] [place] Creatinine [Mass/Vol] 0.76 mg/dL Normal 0.44-1.03 [facility] Comment on above: Performed By: #### L IPID, A1C WTH eA #### [facility] [address] [place] [address] [place] Creatinine Clr Calc Pharmacy 49.92 [facility] Comment on above: Performed By: #### L IPID, A1C WTH eA #### [facility] [address] [place] [address] [place] Estimated GFR ( Rose > 60 [facility] Comment on above: Result Comment: GFR estimated reference range: According to KDOQI guidelines, <60 ml/min/1.73m2 is sufficient to diagnose a patient with chronic kidney disease. Performed By: #### L IPID, A1C WTH eA #### [facility] [address] Estimated GFR (Non- Am > 60 [facility] Comment on above: Performed By: #### L IPID, A1C WTH eA #### [address] Glucose [Mass/Vol] 136 mg/dL High 70-100 [facility] Comment on above: Result Comment: [place] om Glucose Reference Range is dependent on time and content of last meal. Glucose of more than 200 mg/dL in a nonstressed, ambulatory subject supports the diagnosis of Diabetes Mellitus. ADA recommended reference range Performed By: #### L IPID, A1C WTH eA #### [place] [address] [place] Potassium [Moles/Vol] 4.0 mmol/L Normal 3.5-5.1 [facility] Comment on above: Performed By: #### L IPID, A1C WTH eA #### [facility] [address] [place] [address] [place] Sodium [Moles/Vol] 137 mmol/L Normal 136-146 [facility] Comment on above: Performed By: #### L IPID, A1C WTH eA #### [facility] [address] [place] [address] [place] Urea nitrogen [Mass/Vol] 9 mg/dL Normal 9-23 [facility] Comment on above: Performed By: #### L IPID, A1C WTH eA #### [facility] [address] CBC W MANUAL DIFFon 06-09-20 22 ATYPICAL LYMPH # 0.53 103/ul Normal [facility] Comment on above: Performed By: #### T SH, BNP, CMP, LIPID, T7 #### [facility] [address] [place] [address] [address] Logan Payne ATYPICAL LYMPH % 4 % Normal [facility] Comment on above: Performed By: #### T SH, BNP, CMP, LIPID, T7 #### [facility] [address] [place] [address] [address] Logan Payne BAND # 0.0 103/ul Normal 0.0-0.3 [facility] Comment on above: Performed By: #### T SH, BNP, CMP, LIPID, T7 #### [facility] [address] [place] [address] Dr. Logan Payne BAND % 0 % Normal 0-5 [facility] Comment on above: Performed By: #### T SH, BNP, CMP, LIPID, T7 #### [facility] [address] [place] [address] [address] Logan Payne BASOM # 0.26 103/ul Critically high 0.00-0.[address] [facility] Comment on above: Performed By: #### T SH, BNP, CMP, LIPID, T7 #### [facility] [address] [place] [address] [address] Logan Payne BASOM % 2.0 % Normal 0.2-2.0 [facility] Comment on above: Performed By: #### T SH, BNP, CMP, LIPID, T7 #### [facility] [address] [place] [address] [address] Logan Payne BLAST # Normal [facility] Comment on above: Performed By: #### T SH, BNP, CMP, LIPID, T7 #### [facility] [address] [place] [address] [address] Logan Payne BLAST % Normal [facility] Comment on above: Performed By: #### T SH, BNP, CMP, LIPID, T7 #### [facility] [address] [place] [address] [address] Logan Payne CORRECTED WBC Normal 4.0-11.0 [facility] Comment on above: Performed By: #### T SH, BNP, CMP, LIPID, T7 #### [facility] [address] [place] [address] [address] Logan Payne EOS # 0.66 103/ul Normal 0.00-0.70 [facility] Comment on above: Performed By: #### T SH, BNP, CMP, LIPID, T7 #### [facility] [address] [place] [address] [address] Logan Payne EOS% 5.0 % Normal 0.9-7.0 [facility] Comment on above: Performed By: #### T SH, BNP, CMP, LIPID, T7 #### [facility] [address] [place] [address] [address] Logan Payne HCT 39.6 % Normal 36.0-48.0 [facility] Comment on above: Performed By: #### T SH, BNP, CMP, LIPID, T7 #### [facility] [address] [place] [address] [address] Logan Payne HGB 13.5 g/dl Normal 12.0-16.0 [facility] Comment on above: Performed By: #### T SH, BNP, CMP, LIPID, T7 #### [facility] [address] [place] [address] [address] Logan Payne LYMPHM # 1.98 103/ul Normal 1.20-3.80 [facility] Comment on above: Performed By: #### T SH, BNP, CMP, LIPID, T7 #### [facility] [address] [place] [address] [address] Logan Payne LYMPHM% 15.0 % Critically low 20.5-60.0 [facility] Comment on above: Performed By: #### T SH, BNP, CMP, LIPID, T7 #### [facility] [address] [place] [address] [address] Logan Payne MCH 34.1 pg Critically high 26.7-34.0 [facility] Comment on above: Performed By: #### T SH, BNP, CMP, LIPID, T7 #### [facility] [address] [place] [address] [address] Logan Payne MCHC 34.1 g/dl Normal 29.9-35.2 [facility] Comment on above: Performed By: #### T SH, BNP, CMP, LIPID, T7 #### [facility] [address] [place] [address] [address] Logan Payne MCV 100.0 fL Critically high 81.0-99.0 [facility] Comment on above: Performed By: #### T SH, BNP, CMP, LIPID, T7 #### [facility] [address] [place] [address] Dr. Logan Payne METAMYELOCYTE # Normal [facility] Comment on above: Performed By: #### T SH, BNP, CMP, LIPID, T7 #### [facility] [address] [place] [address] Dr. Logan Payne METAMYELOCYTE % Normal [facility] Comment on above: Performed By: #### T SH, BNP, CMP, LIPID, T7 #### [facility] [address] [place] [address] Dr. Logan Payne MONOM# 1.85 103/ul Critically high 0.30-0.[address] [facility] Comment on above: Performed By: #### T SH, BNP, CMP, LIPID, T7 #### [facility] [address] [place] [address] Dr. Logan Payne MONOM% 14.0 % Critically high 1.7-12.0 [facility] Comment on above: Performed By: #### T SH, BNP, CMP, LIPID, T7 #### [facility] [address] [place] [address] Dr. Logan Payne MPV 9.3 fL Critically low 9.5-13.5 [facility] Comment on above: Performed By: #### T SH, BNP, CMP, LIPID, T7 #### [facility] [address] [place] [address] Dr. Logan Payne MYELOCYTE # Normal [facility] Comment on above: Performed By: #### T SH, BNP, CMP, LIPID, T7 #### [facility] [address] [place] [address] [address] Logan Payne MYELOCYTE % Normal [facility] Comment on above: Performed By: #### T SH, BNP, CMP, LIPID, T7 #### [facility] [address] [place] [address] [address] Logan Payne NRBC Normal [facility] Comment on above: Performed By: #### T SH, BNP, CMP, LIPID, T7 #### [facility] [address] [place] [address] [address] Logan Payne PLT 219 103/ul Normal 150-450 [facility] Comment on above: Performed By: #### T SH, BNP, CMP, LIPID, T7 #### [facility] [address] [place] [address] [address] Logan Payne RBC 3.96 106/ul Critically low 4.20-5.40 [facility] Comment on above: Performed By: #### T SH, BNP, CMP, LIPID, T7 #### [facility] [address] [place] [address] [address] Logan Payne RDW 13.2 % Normal 11.0-15.0 [facility] Comment on above: Performed By: #### T SH, BNP, CMP, LIPID, T7 #### [facility] [address] [place] [address] [address] Logan Payne SEG # 7.92 103/ul Critically high 1.40-6.[address] [facility] Comment on above: Performed By: #### T SH, BNP, CMP, LIPID, T7 #### [facility] [address] [place] [address] [address] Logan Payne SEG % 60.0 % Normal 43.0-75.0 [facility] Comment on above: Performed By: #### T SH, BNP, CMP, LIPID, T7 #### [facility] [address] [place] [address] [address] Logan Payne WBC 13.2 103/ul Critically high 4.0-11.0 [facility] Comment on above: Performed By: #### T SH, BNP, CMP, LIPID, T7 #### [facility] [address] [place] [address] [address] Logan Payne CULTURE BLOODon 06-09-2022 Microscopic examination of blood, culture Culture Observations: NO GROWTH AT 5 DAYS. Isolate 1 BC_BA_NA Normal [facility] Comment on above: Performed By: #### T SH, BNP, CMP, LIPID, T7 #### [facility] [address] [place] [address] [address] Logan Payne Microscopic examination of blood, culture Culture Observations: NO GROWTH AT 5 DAYS. Isolate 1 BC_BA_NA Normal [facility] Comment on above: Performed By: #### T SH, BNP, CMP, LIPID, T7 #### [facility] [address] [place] [address] [address] Logan Payne Complete Blood Count Auto Di ffon 06-09-2022 Basophils (Bld) [#/Vol] 0.1 10*3/uL Normal 0.0-0.2 [facility] Comment on above: Result Comment: PERF ORMED BY: [place] [address] PATHOLOGIST FIBERLINE SUPERVISOR PILAR VILLARREAL M.D. Performed By: #### L IPID, [address] eA #### [facility] [address] [place] [address] [place] Basophils/100 WBC (Bld) 0.4 % Normal . [facility] Comment on above: Performed By: #### L IPID, A1C [facility] eA #### [facility] [address] [place] [address] [place] Eosinophils (Bld) [#/Vol] 0.1 10*3/uL Normal 0.0-0.45 [facility] Comment on above: Performed By: #### L IPID, [address] eA #### [facility] [address] [place] [address] [place] Eosinophils/100 WBC (Bld) 0.5 % Normal . [facility] Comment on above: Performed By: #### L IPID, A1C WTH eA #### [address] Erythrocyte distribution width (RBC) [Ratio] 13.8 % Normal 11.9-15.3 [facility] Comment on above: Performed By: #### L IPID, A1C WTH eA #### [address] Hematocrit (Bld) [Volume fraction] 41.0 % Normal 34.0-46.4 [facility] Comment on above: Performed By: #### L IPID, A1C WT eA #### [address] Hemoglobin (Bld) [Mass/Vol] 13.6 g/dL Normal 11.8-15.4 [facility] Comment on above: Performed By: #### L IPID, A1C WTH eA #### [address] Lymphocytes (Bld) [#/Vol] 2.3 10*3/uL Normal 1.00-4.8 [facility] Comment on above: Performed By: #### L IPID, A1C WT eA #### [address] Lymphocytes/100 WBC (Bld) 17.2 % Normal . [facility] Comment on above: Performed By: #### L IPID, A1C WT eA #### [place] [address] [place] MCH (RBC) [Entitic mass] 34.4 pg High 24.7-34.3 [facility] Comment on above: Performed By: #### L IPID, A1C WTH eA #### [place] [address] [place] MCV (RBC) [Entitic vol] 103.6 fL High 80-100 [facility] Comment on above: Performed By: #### L IPID, A1C WTH eA #### [address] Mean Corpuscular HGB Conc 33.2 g/dL Normal 32.0-35.0 [facility] Comment on above: Performed By: #### L IPID, [address] eA #### [facility] [address] [place] [address] [place] Monocytes (Bld) [#/Vol] 1.3 10*3/uL High 0.0-0.8 [facility] Comment on above: Performed By: #### L IPID, [address] eA #### [facility] [address] [place] [address] [place] Monocytes/100 WBC (Bld) 10.1 % Normal . [facility] Comment on above: Performed By: #### L IPID, [address] eA #### [place] [address] [place] Neutrophils (Bld) [#/Vol] 9.5 10*3/uL High 1.8-7.7 [facility] Comment on above: Performed By: #### L IPID, [address] eA #### [place] [address] [place] Neutrophils/100 WBC (Bld) 71.8 % Normal . [facility] Comment on above: Performed By: #### L IPID, [address] eA #### [place] [address] [place] NRBC% 0.0 /100{WBC} Normal 0-0.5 [facility] Comment on above: Performed By: #### L IPID, [address] eA #### [facility] [address] [place] [address] [place] Platelet mean volume (Bld) [Entitic vol] 8.1 fL Normal 6.3-10.7 [facility] Comment on above: Performed By: #### L IPID, [address] eA #### [facility] [address] [place] [address] [place] Platelets (Bld) [#/Vol] 199 10*3/uL Normal 150-450 [facility] Comment on above: Performed By: #### L IPID, [address] eA #### [facility] [address] [place] [id number] [place] RBC (Bld) [#/Vol] 3.96 10*6/uL Normal 3.60-5.00 [facility] Comment on above: Performed By: #### L IPID, A1C [facility] eA #### [facility] [address] [place] [address] [facility] WBC (Bld) [#/Vol] 13.2 10*3/uL High 3.8-11.6 [facility] Comment on above: Performed By: #### L IPID, A1C [facility] eA #### [facility] [address] Covid-19 PCR ([facility])on 05-15 SARS-CoV-2 (COVID-19) RNA CAROL+probe Ql (Unsp spec) Not detected Normal NOT DETECTED [facility] Comment on above: Result Comment: When [...] for this test is supported by the [place] of Health and Human Service's declaration that [...] T SH, BNP, CMP, LIPID, T7 #### [facility] [address] [place] [address] [address] Logan Payne ECG 12 lead ECGon 06-09-2022 ECG 12 lead ECG [facility] Main [place] [address] [place] [address] Electrocardiograph Report Signed Patient: Abdirahman Gomez MR#: [id number] : 1940 Acct:[id number] Age/Sex: 81 / F ADM Date: 06/09/22 Loc: 3T Room: [address] [place] [address] Type: DIS IN Attending Dr: Frida De [...] By Yoav Prado MD 1 08/10/21 1709 [facility] echo transthoracicon [facility] echo transthoracic [place] [address] Echocardiogram Signed Patient: Abdirahman Gomez MR#: [id number] : 1940 Acct:[id number] Age/Sex: 81 / F ADM Date: 06/09/22 Loc: 3T Room: [address] [place] [address] Type: DIS IN Attending Dr: Frida De [...] By: Yoav Prado MD 06/09/22 1653 Normal [facility] Folate [Mass/volume] in Seru m or PlasmaOrdered By: Nathanile Castillo on 06-09-2022 Folate [Mass/Vol] ng/mL >5.9 [facility] Comment on above: Folate reference ran ge: >5.9 ng/mlThe WHO technical consultation on folate and vitamin [id number] has determined that folate concentrations lessthan 4 ng/ml are considered deficient. LACTATE/LACTIC ACIDon 2021 Lactate [Moles/Vol] 1.1 mmol/L Normal 0.4-1.9 [facility] Comment on above: Performed By: #### T SH, BNP, CMP, LIPID, T7 #### [facility] [address] [place], [place] [address] Dr. Logan Payne Lactate [Moles/Vol] 1.8 mmol/L Normal 0.4-1.9 [facility] Comment on above: Performed By: #### T SH, BNP, CMP, LIPID, T7 #### [facility] [address] [place], [place] [address] Dr[address] Logan Payne Laboratory - Chemistry and C hemistry - challengeOrdered By: Nathaniel Castillo on 06-09-2022 Cobalamin (Vitamin B12) [Mass/Vol] 480 pg/mL 180-914 [facility] - Chemistry and C hemistry - challengeOrdered By: Rossi Valdez on 06-09-2022 Magnesium [Mass/Vol] 1.8 mg/dL 1.6-2.6 [facility] Magnesiumon 06-09-2022 Magnesium [Mass/Vol] 1.8 mg/dL Normal 1.6-2.6 [facility] Comment on above: Result Comment: PERF ORMED BY: [place] [address] PATHOLOGIST FIBERLINE SUPERVISOR PILAR VILLARREAL M.D. Performed By: #### L IPID, A1C WTH eA #### [place] [address] [place] OCC BLD IMMUNO SCREENon 05-15 OCCULT BLOOD Positive Abnormal NEGATIVE [facility] Comment on above: Performed By: #### T SH, BNP, CMP, LIPID, T7 #### [facility] [address] [place] [address] [address] Logan Payne PROF 14(COMP METB)on 022 Albumin [Mass/Vol] 3.3 g/dL Critically low 3.4-5.[address] [facility] Comment on above: Performed By: #### C MP, HSTROPN #### [facility] [address] [place] [address] Dr. Logan Payne Albumin/Globulin [Mass ratio] 0.8 {ratio} Normal [facility] Comment on above: Performed By: #### C MP, HSTROPN #### [facility] [address] [place] [address] [address] Logan Payne ALP [Catalytic activity/Vol] 95 U/L Normal 46-116 [facility] Comment on above: Performed By: #### C MP, HSTROPN #### [facility] [address] [address] [address] Logan Payne ALT [Catalytic activity/Vol] 36 U/L Normal 14-59 [facility] Comment on above: Performed By: #### C MP, HSTROPN #### [facility] [address] [address] [address] Logan Payne Anion gap [Moles/Vol] 14.7 mmol/L Normal [facility] Comment on above: Performed By: #### C MP, HSTROPN #### [facility] [address] [address] [address] Logan Payne AST [Catalytic activity/Vol] 75 U/L Critically high 15-37 [facility] Comment on above: Performed By: #### C MP, HSTROPN #### [facility] [address] [address] [address] Logan Payne Bilirubin [Mass/Vol] 0.4 mg/dL Normal 0.2-1.0 [facility] Comment on above: Performed By: #### C MP, HSTROPN #### [facility] [address] [place] [address] Dr. Logan Payne Calcium [Mass/Vol] 8.7 mg/dL Normal 8.5-10.1 [facility] Comment on above: Performed By: #### C MP, HSTROPN #### [facility] [address] [place] [address] Dr. Logan Payne Chloride [Moles/Vol] 103 mmol/L Normal 98-107 [facility] Comment on above: Performed By: #### C MP, HSTROPN #### [facility] [address] [place] [address] Dr. Logan Payne CO2 [Moles/Vol] 21.3 mmol/L Normal 21.0-32.[address] [facility] Comment on above: Performed By: #### C MP, HSTROPN #### [facility] [address] [place] [address] Dr. Logan Payne Creatinine [Mass/Vol] 0.83 mg/dL Normal 0.55-1.02 [facility] Comment on above: Performed By: #### C MP, HSTROPN #### [facility] [address] [place] [address] Dr. Logan Payne EGFR-AF SWISS >60 Normal >=60 [facility] Comment on above: Performed By: #### C MP, HSTROPN #### [facility] [address] [place] [address] Dr. Logan Payne EGFR-NON AF SWISS >60 Normal >=60 [facility] Comment on above: Performed By: #### C MP, HSTROPN #### [facility] [address] [place] [address] Dr. Logan Payne Globulin (S) [Mass/Vol] 4.1 g/dL Normal [facility] Comment on above: Performed By: #### C MP, HSTROPN #### [facility] [address] [place] [address] Dr. Logan Payne Glucose [Mass/Vol] 141 mg/dL Critically high 74-106 T [facility] Comment on above: Performed By: #### C MP, HSTROPN #### [facility] [address] [place] [address] Dr. Logan Payne Potassium [Moles/Vol] 4.0 mmol/L Normal 3.5-5.1 [facility] Comment on above: Performed By: #### C JOSE, HSTROPN #### [facility] [address] [place] [address] Dr. Logan Payne Protein [Mass/Vol] 7.4 g/dL Normal 6.4-8.2 [facility] Comment on above: Performed By: #### C JOSE, HSTROPN #### [facility] [address] [place] [address] Dr. Logan Payne Sodium [Moles/Vol] 135 mmol/L Critically low 136-145 [facility] Comment on above: Performed By: #### C JOSE, HSTROPN #### [facility] [address] [place] [address] Dr. Logan Payne Urea nitrogen [Mass/Vol] 16.0 mg/dL Normal 7.0-18.0 [facility] Comment on above: Performed By: #### C JOSE, HSTROPN #### [facility] [address] [place] [address] Dr. Logan Payne Urea nitrogen/Creatinine [Mass ratio] 19.3 mg/mg Normal [facility] Comment on above: Performed By: #### C MP, HSTROPN #### [facility] [address] [place] [address] Dr. Logan Payne PROTIMEon 06-09-2022 INR Coag (PPP) [Relative time] 0.98 {INR} Normal [facility] Comment on above: Performed By: #### T SH, BNP, CMP, LIPID, T7 #### [facility] [address] [place] [address] Dr. Logan Payne INR GUIDELINES SEE BELOW Normal [facility] Comment on above: Result Comment: FERCHO RED INR: 2.0 - 3.0 CONDITIONS NOT LISTED BELOW 2.5 - 3.5 FOR PROSTHETIC HEART VALVE REPLACEMENT 2.5 - 3.5 RECURRENT THROMBOSIS Performed By: #### T SH, BNP, CMP, LIPID, T7 #### [facility] [address] [address] [address] Logan Payne PT Coag (PPP) [Time] 10.6 s Normal 9.0-11.6 [facility] Comment on above: Performed By: #### T SH, BNP, CMP, LIPID, T7 #### [facility] [address] [place] [address] Dr. Logan Payne PTTon 06-09-2022 aPTT Coag (Bld) [Time] 30.0 s Normal 22.3-36.[address] [facility] Comment on above: Performed By: #### T SH, BNP, CMP, LIPID, T7 #### [facility] [address] [place] [address] Dr. Logan Payne TROPONIN, HIGH SENSITIVITYon 06-09-2022 HSTROP 8564.4 pg/mL Critically high 4.0-51.3 [facility] Comment on above: Result Comment: CUT- OFF POINTS HAVE BEEN ESTABLISHED BASED ON THE FOURTH UNIVERSAL DEFINITIONS OF MYOCARDIAL INFARCTION. THE UPPER REFERENCE LIMIT (URL) OF TROPONIN, DEFINED THE 99TH PERCENTILE OF cTnI DISTRIBUTION IN A REFERENCE POPULATION, HAS BEEN CONFIRMED THE DECISION THRESHOLD FOR PR DIAGNOSIS. Performed By: #### T SH, BNP, CMP, LIPID, T7 #### [facility] [address] [place] [address] Dr. Logan Payne HSTROP 9385.6 pg/mL Critically high 4.0-51.3 [facility] Comment on above: Result Comment: CUT- OFF POINTS HAVE BEEN ESTABLISHED BASED ON THE FOURTH UNIVERSAL DEFINITIONS OF MYOCARDIAL INFARCTION. THE UPPER REFERENCE LIMIT (URL) OF TROPONIN, DEFINED THE 99TH PERCENTILE OF cTnI DISTRIBUTION IN A REFERENCE POPULATION, HAS BEEN CONFIRMED THE DECISION THRESHOLD FOR PR DIAGNOSIS. Performed By: #### C MP, HSTROPN #### [facility] [address] [place], [place] [address] Dr. Logan Payne TYPE AND SCREENon 06-09-2022 TYPE AND SCREEN Negative Normal [facility] Comment on above: Performed By: #### T SH, BNP, CMP, LIPID, T7 #### [facility] [address] [place], [place] [address] Dr. Logan Payne Troponin I High Sensitivityo n 06-09-2022 Troponin I High Sensitivity 6364 pg/mL Off scale high 0-15 [facility] Comment on above: Result Comment: Resu lts called at 1303 on 06/09/22 PERFORMED BY: [place] [address] PATHOLOGIST FIBERLINE SUPERVISOR PILAR VILLARREAL M.D. Performed By: #### L IPID, [address] eA #### [facility] [address] [place] [address] Troponin I High Sensitivity 6431 pg/mL Off scale high 0-15 [facility] Comment on above: Result Comment: Resu lts called at 1006 on 06/09/22 PERFORMED BY: [place] [address] PATHOLOGIST FIBERLINE SUPERVISOR PILAR VILLARREAL M.D. Performed By: #### L IPID, [address] eA #### [facility] [address] [place] [address] Troponin I High Sensitivity 6373 pg/mL Off scale high 0-15 [facility] Comment on above: Result Comment: Resu lts called at 0710 on 06/09/22 PERFORMED BY: [place] [address] PATHOLOGIST FIBERLINE SUPERVISOR PILAR VILLARREAL M.D. Performed By: #### G LULS #### Point of Care testing , Vit. B12/Folate Profileon Cobalamin (Vitamin B12) [Mass/Vol] 480 pg/mL Normal 180-914 [facility] Comment on above: Order Comment: Comme nt addon Performed By: #### G CARLEENLS #### Point of Care testing , Folate > 22.3 Normal >5.9 [facility] Comment on above: Order Comment: Comme nt addon Result Comment: Niyah te reference range: >5.9 ng/ml The WHO technical consultation on folate and vitamin b12 deficiencies has determined that folate concentrations less than 4 ng/ml are considered deficient. PERFORMED BY: [facility] [address] [place] [address] PATHOLOGIST FIBERLINE SUPERVISOR PILAR VILLARREAL M.D. Performed By: #### G KIRA #### Point of Care testing , BASIC METABOLIC PANELon 11-12 Calcium [Mass/Vol] 9.1 mg/dL Normal 8.6-10.3 [facility] Comment on above: Order Comment: No: D o not add to previous draw Performed By: #### 0 0071, 70123 #### [facility] [address] [place] [address], [place] Chloride [Moles/Vol] 104 mmol/L Normal 98-107 [facility] Comment on above: Order Comment: No: D o not add to previous draw Performed By: #### 0 0071, 27786 #### [facility] [address] [place] [address], [place] CO2 [Moles/Vol] 22 mmol/L Normal 21-31 [facility] Comment on above: Order Comment: No: D o not add to previous draw Performed By: #### 0 0071, 26086 #### [facility] [address] [place] [address], [place] Creatinine [Mass/Vol] 0.80 mg/dL Normal 0.60-1.20 [facility] Comment on above: Order Comment: No: D o not add to previous draw Performed By: #### 0 0071, 26337 #### [facility] [address] [place] [address], [place] GFR/1.73 sq M.predicted among blacks MDRD (S/P/Bld) [Vol rate/Area] mL/min/{1.73_m2} Normal >60 [facility] Comment on above: Order Comment: No: D o not add to previous draw Result Comment: Calc ulation may not be valid for patients over 70 years Performed By: #### 0 0071, 56361 #### [facility] [address] [place] [address], [place] GFR/1.73 sq M.predicted among non-blacks MDRD (S/P/Bld) [Vol rate/Area] mL/min/{1.73_m2} Normal >60 [facility] Comment on above: Order Comment: No: D o not add to previous draw Result Comment: Calc ulation may not be valid for patients over 70 years Performed By: #### 0 0071, 75868 #### [facility] [address] [place] [address], [place] Glucose [Mass/Vol] 99 mg/dL Normal 70-100 [facility] Comment on above: Order Comment: No: D o not add to previous draw Performed By: #### 0 0071, 78010 #### [facility] [address] [place] [address], [place] Potassium [Moles/Vol] 4.2 mmol/L Normal 3.5-5.1 [facility] Comment on above: Order Comment: No: D o not add to previous draw Performed By: #### 0 0071, 85278 #### [facility] [address] [place] [address], [place] Sodium [Moles/Vol] 137 mmol/L Normal 136-145 [facility] Comment on above: Order Comment: No: D o not add to previous draw Performed By: #### 0 0071, 93569 #### [facility] [address] [place] [address], [place] Urea nitrogen [Mass/Vol] 11 mg/dL Normal 7-25 [facility] Comment on above: Order Comment: No: D o not add to previous draw Performed By: #### 0 0071, 34014 #### [facility] [address] [place] [address], [facility] CBC COMPLETE BLOOD COUNTon 0 11-25-2021 Erythrocyte distribution width (RBC) [Ratio] 12.9 % Normal 11.5-15.0 [facility] Comment on above: Order Comment: No: D o not add to previous draw Performed By: #### 3 2043 #### [facility] [address] [place] [address], [facility] Hematocrit (Bld) [Volume fraction] 42.7 % Normal 36.0-45.0 [facility] Comment on above: Order Comment: No: D o not add to previous draw Performed By: #### 3 2043 #### [facility] [address] [place] [address], [facility] Hemoglobin (Bld) [Mass/Vol] 14.3 g/dL Normal 12.0-15.0 [facility] Comment on above: Order Comment: No: D o not add to previous draw Performed By: #### 3 2043 #### [facility] [address] [facility] [place] [address], [facility] MCH (RBC) [Entitic mass] 33.9 pg High 27.0-33.0 [facility] Comment on above: Order Comment: No: D o not add to previous draw Performed By: #### 3 2043 #### [facility] [address] [place] [address], [facility] MCHC (RBC) [Mass/Vol] 33.5 g/dL Normal 32.0-35.0 [facility] Comment on above: Order Comment: No: D o not add to previous draw Performed By: #### 3 2043 #### [facility] [address] [place] [address], [facility] MCV (RBC) [Entitic vol] 101.2 fL High 82.0-98.0 [facility] Comment on above: Order Comment: No: D o not add to previous draw Performed By: #### 3 2043 #### [facility] [address] [place] [address], [facility] Nucleated RBC/100 WBC (Bld) [Ratio] 0 % Normal 0-0 [facility] Comment on above: Order Comment: No: D o not add to previous draw Performed By: #### 3 2043 #### [facility] [address] [place] [address], [place] PLAT CNT 211 10*3/uL Normal 150-400 [facility] Comment on above: Order Comment: No: D o not add to previous draw Performed By: #### 3 2043 #### [facility] [address] [place] [address], [facility] RBC (Bld) [#/Vol] 4.22 10*6/uL Normal 3.80-5.00 [facility] Comment on above: Order Comment: No: D o not add to previous draw Performed By: #### 3 2043 #### [facility] [address] [place] [address], [facility] WBC (Bld) [#/Vol] 11.25 10*3/uL High 4.00-10.60 [facility] Comment on above: Order Comment: No: D o not add to previous draw Performed By: #### 3 2043 #### [facility] [address] [place] [address], [facility] HEMOGLOBIN A1Con 11-25-2021 Glucose [Moles/Vol] 128 mmol/L Normal [facility] Comment on above: Order Comment: If no t done in EDNo: Do not add to previous draw Performed By: #### 3 2043 #### [facility] [address] [place] [address], [facility] HbA1c (Bld) [Mass fraction] 6.1 % High 4.0-6.0 [facility] Comment on above: Order Comment: If no t done in EDNo: Do not add to previous draw Performed By: #### 3 2043 #### [address] [address], [facility] MAGNESIUM BLOODon 11-25-2021 Magnesium [Mass/Vol] 1.8 mg/dL Low 1.9-2.7 [facility] Comment on above: Order Comment: No: D o not add to previous draw Performed By: #### 0 0071, 51001 #### [facility] [address] [place] [address], [facility] PORTABLE CHEST 1 VIEWon 11-12 PORTABLE CHEST 1 VIEW [facility] Department of Radiology [address] [place] [id number] Patient Name: ABDIRAHMAN GOMEZ : 1940 Sex: F Age: Race: White Pt. Location: [id number] Patient Status: I Ordered Date: 11/25/2021 10:05:00 [...] edema. Electronically signed: Melania Lay. Transcribed by: [email or web address], User Resident: Electronically Signed by: MELANIA LAY @ 11/25/2021 10:44 AM Normal [facility] Comment on above: Order Comment: Pneum othorax Cardiovascular Lab Reporton 11-24-2021 Cardiovascular Lab Report [facility]: [id number] Physician: Sarabjit Vicente MD Department of Service Date: 11/24/2021 Medicine Birthdate: 1940 Division of Room #: 3AB [id number] Cardiology Adult Cardiovascular Services [place] [address] Cardiovascular Laboratory Report PACEMAKER IMPLANT PROCEDURE NOTE DATE OF PROCEDURE: 11/24/2021 PERFORMING PHYSICIAN: Dr. Sarabjit Vicente CONSENT: Patient LOCATION: EP Lab PROCEDURE PERFORMED: 1. Implantation of pacemaker ([employer]). 2. 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 She had syncope from this and subsequently was transferred here. Since the admission to [facility], she had a fairly recently [...] using modified seldinger technique using a 5 Canadian micro-puncture needle on two occasions and 0.35 [...] pocket was created for the device. 6 [place] Safesheaths were placed over the wire. An active fixation [employer] pacing lead was then delivered through the 6Fsheath to the right ventricle. After confirmation of lead position on orthogonal views ([place] and [place]) to confirm septal position, the screw was activated, and the lead was placed in the right ventricular mid cavity towards the septum. After confirmation of good sensing parameters, injury pattern and pacing thresholds, 10V pacing was done and no diaphragmatic stimulation was noted. It was then secured in the pocket using three 1-0 Silk sutures. Then an active fixation [employer] lead was delivered through the 6Fsheath to the right atrial appendage. After confirmation of lead position on orthogonal views ([place] and [place]), the screw was activated. After confirmation of [...] immediate procedural complications were noted. Device info: [employer] Accolade MRI Model# L311 Serial# [id number] RA lead: Model# INGEVITY 7840 (45cms) Serial# [id number] SensinmV Threshold: 0.8V@0.4ms Impedance: 590 Ohms RV lead: Model# INGEVITY 7841 (52cms) Serial# [id number] Sensin.5mV Threshold: 0.4V@0.4ms Impedance: 1125 Ohms POST PROCEDURE EXAM: Patient was hemodynamically stable. COMPLICATIONS: None. ESTIMATED BLOOD LOSS: 15cc IMPRESSION: 1. Successful dual chamber pacemaker with excellent pacing and sensing parameters. RECOMMENDATIONS: 1 Occlusive dressing to be removed after 2 weeks. 2. Do not wet the incision for 7 days. 3. No lifti (more content not included)... Normal [facility] APTTon 11-23-2021 aPTT Coag (Bld) [Time] 30.9 s Normal 25.0-35.0 [facility] Comment on above: Order Comment: No: [...] PURPOSE. Performed By: #### 3 2043 #### [facility] [address] [facility]. [address] BASIC METABOLIC PANELon 11-12 Calcium [Mass/Vol] 9.5 mg/dL Normal 8.6-10.3 [facility] Comment on above: Order Comment: No: D o not add to previous draw Performed By: #### 1 0070, 06850 #### [facility] [address] [facility] [place] [address], [facility] Chloride [Moles/Vol] 104 mmol/L Normal 98-107 [facility] Comment on above: Order Comment: No: D o not add to previous draw Performed By: #### 1 69, 73681 #### [facility] [address] [place] [address], [place] CO2 [Moles/Vol] 21 mmol/L Normal 21-31 [facility] Comment on above: Order Comment: No: D o not add to previous draw Performed By: #### 1 69, 96573 #### [facility] [address] [place] [address], [place] Creatinine [Mass/Vol] 0.80 mg/dL Normal 0.60-1.20 [facility] Comment on above: Order Comment: No: D o not add to previous draw Performed By: #### 1 69, 08650 #### [facility] [address] [place] [address], [place] GFR/1.73 sq M.predicted among blacks MDRD (S/P/Bld) [Vol rate/Area] mL/min/{1.73_m2} Normal >60 [facility] Comment on above: Order Comment: No: D o not add to previous draw Result Comment: Calc ulation may not be valid for patients over 70 years Performed By: #### 1 69, 30302 #### [facility] [address] [place] [address], [place] GFR/1.73 sq M.predicted among non-blacks MDRD (S/P/Bld) [Vol rate/Area] mL/min/{1.73_m2} Normal >60 [facility] Comment on above: Order Comment: No: D o not add to previous draw Result Comment: Calc ulation may not be valid for patients over 70 years Performed By: #### 1 0, 11501 #### [facility] [address] [place] [address], [place] Glucose [Mass/Vol] 109 mg/dL High 70-100 [facility] Comment on above: Order Comment: No: D o not add to previous draw Performed By: #### 1 69, 39195 #### [facility] [address] [place] [address], [facility] Potassium [Moles/Vol] 3.9 mmol/L Normal 3.5-5.1 [facility] Comment on above: Order Comment: No: D o not add to previous draw Performed By: #### 1 69, 34712 #### [facility] [address] [place] [address], [place] Sodium [Moles/Vol] 138 mmol/L Normal 136-145 [facility] Comment on above: Order Comment: No: D o not add to previous draw Performed By: #### 1 69, 94331 #### [facility] [address] [place] [address], [place] Urea nitrogen [Mass/Vol] 15 mg/dL Normal 7-25 [facility] Comment on above: Order Comment: No: D o not add to previous draw Performed By: #### 1 69, 48639 #### [facility] [address] [place] [address], [facility] CBC COMPLETE BLOOD COUNTon - Erythrocyte distribution width (RBC) [Ratio] 12.8 % Normal 11.5-15.0 [facility] Comment on above: Order Comment: No: D o not add to previous draw Performed By: #### 3 2043 #### [facility] [address] [place] [address], [facility] Hematocrit (Bld) [Volume fraction] 41.9 % Normal 36.0-45.0 [facility] Comment on above: Order Comment: No: D o not add to previous draw Performed By: #### 3 2043 #### [facility] [address] [place] [address], [facility] Hemoglobin (Bld) [Mass/Vol] 14.1 g/dL Normal 12.0-15.0 [facility] Comment on above: Order Comment: No: D o not add to previous draw Performed By: #### 3 2043 #### [facility] [address] [place] [address], [facility] MCH (RBC) [Entitic mass] 34.0 pg High 27.0-33.0 [facility] Comment on above: Order Comment: No: D o not add to previous draw Performed By: #### 3 2043 #### [facility] [address] [place] [address], [facility] MCHC (RBC) [Mass/Vol] 33.7 g/dL Normal 32.0-35.0 [facility] Comment on above: Order Comment: No: D o not add to previous draw Performed By: #### 3 2043 #### [facility] [address] [place] [address], [facility] MCV (RBC) [Entitic vol] 101.0 fL High 82.0-98.0 [facility] Comment on above: Order Comment: No: D o not add to previous draw Performed By: #### 3 2043 #### [facility] [address] [facility] [place] [address], [facility] Nucleated RBC/100 WBC (Bld) [Ratio] 0 % Normal 0-0 [facility] Comment on above: Order Comment: No: D o not add to previous draw Performed By: #### 3 2043 #### [facility] [address] [facility] [place] [address], [facility] PLAT CNT 218 10*3/uL Normal 150-400 [facility] Comment on above: Order Comment: No: D o not add to previous draw Performed By: #### 3 2043 #### [facility] [address] [facility] [place] [address], [facility] RBC (Bld) [#/Vol] 4.15 10*6/uL Normal 3.80-5.00 [facility] Comment on above: Order Comment: No: D o not add to previous draw Performed By: #### 3 2043 #### [facility] [address] [place] [address], [facility] WBC (Bld) [#/Vol] 9.49 10*3/uL Normal 4.00-10.60 [facility] Comment on above: Order Comment: No: D o not add to previous draw Performed By: #### 3 2043 #### [facility] [address] [place] [address], [facility] MAGNESIUM BLOODon 11-23-2021 Magnesium [Mass/Vol] 2.0 mg/dL Normal 1.9-2.7 [facility] Comment on above: Order Comment: No: D o not add to previous draw Performed By: #### 1 0070, 57902 #### [facility] [address] POC SARS COV2 ANTIGEN NEGATI VEon 11-23-2021 POC SARS COV2 ANTIGEN NEG Negative Normal NEGATIVE [facility] Comment on above: Result Comment: Nega [...] antigen from SARS-CoV-2 in direct nasopharyngeal swab (D[employer] MILL OPERATOR) specimens from individuals who are suspected of [...] Accreditation. Performed By: #### 3 2043 #### [facility] [address] [facility]. [address] PROTHROMBIN TIMEon INR Coag (PPP) [Relative time] 1.03 {INR} Normal 0.91-1.16 [facility] Comment on above: Order Comment: No: [...] 1995;[id number]. Performed By: #### 3 2043 #### [facility] [address] [facility]. [address] PT Coag (PPP) [Time] 13.5 s Normal 12.3-14.8 [facility] Comment on above: Order Comment: No: D o not add to previous draw Result Comment: ALL RESULTS MUST BE INTERPRETED WITH RESPECT TO BLOOD DRAWING ARTIFACT OR DILUTION ERROR OF ANTICOAGULANT AT THE TIME OF SAMPLING. Performed By: #### 3 2043 #### [facility] [address] BASIC METABOLIC PANELon 11-12 Calcium [Mass/Vol] 9.5 mg/dL Normal 8.6-10.3 [facility] Comment on above: Order Comment: No: D o not add to previous draw Performed By: #### 1 0070, 49546, 45530 #### [facility] [address] [place] [address], [place] Chloride [Moles/Vol] 104 mmol/L Normal 98-107 [facility] Comment on above: Order Comment: No: D o not add to previous draw Performed By: #### 1 0070, 14694, 93935 #### [facility] [address] [place] [address], [place] CO2 [Moles/Vol] 21 mmol/L Normal 21-31 [facility] Comment on above: Order Comment: No: D o not add to previous draw Performed By: #### 1 0070, 05559, 52686 #### [facility] [address] [place] [address], [place] Creatinine [Mass/Vol] 0.98 mg/dL Normal 0.60-1.20 [facility] Comment on above: Order Comment: No: D o not add to previous draw Performed By: #### 1 0070, 06681, 89647 #### [facility] [address] [place] [address], [place] eGFR- non- 54 ml/min/1.73sq m Abnormal >60 [facility] Comment on above: Order Comment: No: D o not add to previous draw Result Comment: Calc ulation may not be valid for patients over 70 years Performed By: #### 1 0070, 92154, 68430 #### [facility] [address] [place] [address], [place] GFR/1.73 sq M.predicted among blacks MDRD (S/P/Bld) [Vol rate/Area] mL/min/{1.73_m2} Normal >60 [facility] Comment on above: Order Comment: No: D o not add to previous draw Result Comment: Calc ulation may not be valid for patients over 70 years Performed By: #### 1 0, 88962, 18775 #### [facility] [address] [place] [address], [facility] Glucose [Mass/Vol] 110 mg/dL High 70-100 [facility] Comment on above: Order Comment: No: D o not add to previous draw Performed By: #### 1 0, 19356, 75135 #### [facility] [address] [place] [address], [facility] Potassium [Moles/Vol] 4.9 mmol/L Normal 3.5-5.1 [facility] Comment on above: Order Comment: No: D o not add to previous draw Performed By: #### 1 0, 19390, 30809 #### [facility] [address] [place] [address], [facility] Sodium [Moles/Vol] 137 mmol/L Normal 136-145 [facility] Comment on above: Order Comment: No: D o not add to previous draw Performed By: #### 1 0, 78811, 55060 #### [facility] [address] [facility] [address] Urea nitrogen [Mass/Vol] 18 mg/dL Normal 7-25 [facility] Comment on above: Order Comment: No: D o not add to previous draw Performed By: #### 1 0, 44989, 05196 #### [facility] [address] [facility] [address], [facility] CBC W/DIFFon 11-22-2021 ABS IMM GRANS 0.1 10*3/uL Normal 0.0-0.2 [facility] Comment on above: Performed By: #### 3 2043 #### [facility] [address] [facility] [place] [address], [facility] ABS NEUTROPHILS 6.8 10*3/uL Normal 1.6-7.6 [facility] Comment on above: Performed By: #### 3 2043 #### [facility] [address] [place] [address], [facility] Basophils (Bld) [#/Vol] 0.1 10*3/uL Normal 0.0-0.2 [facility] Comment on above: Performed By: #### 3 2043 #### [facility] [address] [place] [address], [facility] Basophils/100 WBC (Bld) 0.8 % Normal 0.0-1.0 [facility] Comment on above: Performed By: #### 3 2043 #### [facility] [address] [place] [address], [facility] Eosinophils (Bld) [#/Vol] 0.4 10*3/uL Normal 0.0-0.5 [facility] Comment on above: Performed By: #### 3 2043 #### [facility] [address] [place] [address], [facility] Eosinophils/100 WBC (Bld) 3.6 % Normal 0.0-6.0 [facility] Comment on above: Performed By: #### 3 2043 #### [facility] [address] [facility] [address] Erythrocyte distribution width (RBC) [Ratio] 12.6 % Normal 11.5-15.0 [facility] Comment on above: Performed By: #### 3 2043 #### [facility] [address] [facility] [place] [address], [facility] Hematocrit (Bld) [Volume fraction] 42.3 % Normal 36.0-45.0 [facility] Comment on above: Performed By: #### 3 2043 #### [facility] [address] [facility] [place] [address], [facility] Hemoglobin (Bld) [Mass/Vol] 14.9 g/dL Normal 12.0-15.0 [facility] Comment on above: Performed By: #### 3 2043 #### [facility] [address] [place] [address], [facility] IMMATURE GRANS 0.5 % Normal 0.0-1.0 [facility] Comment on above: Performed By: #### 3 2043 #### [facility] [address] [place] [address], [facility] Lymphocytes (Bld) [#/Vol] 2.3 10*3/uL Normal 1.2-4.0 [facility] Comment on above: Performed By: #### 3 2043 #### [facility] [address] [facility] [place] [place] [address], [facility] Lymphocytes/100 WBC (Bld) 21.8 % Normal 20.0-45.0 [facility] Comment on above: Performed By: #### 3 2043 #### [facility] [address] [facility] [place] [place] [address], [facility] MCH (RBC) [Entitic mass] 34.3 pg High 27.0-33.0 [facility] Comment on above: Performed By: #### 3 2043 #### [facility] [address] [facility] [place] [place] [address], [facility] MCHC (RBC) [Mass/Vol] 35.2 g/dL High 32.0-35.0 [facility] Comment on above: Performed By: #### 3 2043 #### [facility] [address] [facility] [place] [place] [address], [facility] MCV (RBC) [Entitic vol] 97.2 fL Normal 82.0-98.0 [facility] Comment on above: Performed By: #### 3 2043 #### [facility] [address] [facility] [place] [place] [address], [facility] Monocytes (Bld) [#/Vol] 0.8 10*3/uL Normal 0.1-1.0 [facility] Comment on above: Performed By: #### 3 2043 #### [facility] [address] [place] [address], [facility] MONOS 7.8 % Normal 5.0-12.0 [facility] Comment on above: Performed By: #### 3 2043 #### [facility] [address] [place] [address], [facility] Neutrophils/100 WBC (Bld) 65.5 % Normal 40.0-72.0 [facility] Comment on above: Performed By: #### 3 2043 #### [facility] [address] [place] [address], [facility] Nucleated RBC/100 WBC (Bld) [Ratio] 0 % Normal 0-0 [facility] Comment on above: Performed By: #### 3 2043 #### [facility] [address] [place] [address], [facility] PLAT CNT 231 10*3/uL Normal 150-400 [facility] Comment on above: Performed By: #### 3 2043 #### [facility] [address] [facility] [place] [address], [facility] RBC (Bld) [#/Vol] 4.35 10*6/uL Normal 3.80-5.00 [facility] Comment on above: Performed By: #### 3 2043 #### [facility] [address] [facility] [place] [address], [facility] WBC (Bld) [#/Vol] 10.35 10*3/uL Normal 4.00-10.60 [facility] Comment on above: Performed By: #### 3 2043 #### [facility] [address] [facility] [place] [id number], [facility] MAGNESIUM BLOODon 11-22-2021 Magnesium [Mass/Vol] 2.1 mg/dL Normal 1.9-2.7 [facility] Comment on above: Order Comment: No: D o not add to previous draw Performed By: #### 1 0070, 33225, 28528 #### [facility] [address] [place] [address], [facility] TROPONIN-Ion 11-22-2021 Troponin I.cardiac [Mass/Vol] 0.00 ng/mL Normal 0.00-0.04 [facility] Comment on above: Order Comment: No: D o not add to previous draw Result Comment: REFE RENCE RANGES: 0.00 - 0.04 ng/ml NORMAL 0.05 - 0.50 ng/ml INDETERMINATE > 0.50 ng/ml CONSISTENT WITH AN M.I. Performed By: #### 1 0070, 19437, 89292 #### [facility] [address] [place], [place] [id number] [place] [address] Troponin I.cardiac [Mass/Vol] 0.01 ng/mL Normal 0.00-0.04 [facility] Comment on above: Order Comment: No: D o not add to previous draw Result Comment: REFE RENCE RANGES: 0.00 - 0.04 ng/ml NORMAL 0.05 - 0.50 ng/ml INDETERMINATE > 0.50 ng/ml CONSISTENT WITH AN M.I. Performed By: #### 3 5200 #### [facility] [address] ECHOCARDIO M/2D COMPLETEon 0 11-05-2021 ECHOCARDIO M/2D COMPLETE Patient: ABDIRAHMAN GOMEZ Exam Date: 11/05/2021 : 1940 Gender:F Ordering : VENUS TONG Admission #: [id number] Family : DR IRISH FAUSTIN . Order #: [id number] CLICK HERE TO VIEW EXAM ECHOCARDIOGRAM REPORT [...] Lopez M.D. on 11/06/2021 at 13:18 Normal [facility] MG MAMM SCREEN 3D MILANA CADon 10-27-2021 MG MAMM SCREEN 3D MILANA CAD Patient: ABDIRAHMAN GOMEZ Exam Date: 10/27/2021 : 1940 Gender:F Ordering : DR IRISH FAUSTIN . Admission #: [id number] Family : Order #: [id number] CLICK HERE TO VIEW EXAM RADIOLOGY REPORT [...] Treatments None Family Cancers None LOCATION: [facility] BREAST COMPOSITION: Almost entirely fatty. FINDINGS: [...] MD on 10/27/2021 at 11:44 Normal [facility] INSULINon 06-28-2021 Insulin 12.1 uIU/mL Normal 2.6-24.9 [facility] Comment on above: Performed By: #### I NSULIN #### [facility] [address] [place] [address] Dr. Logan Payne BNPon 06-27-2021 Natriuretic peptide B (Bld) [Mass/Vol] 350.0 pg/mL Normal <=1,800.0 [facility] Comment on above: Performed By: #### T SH, BNP, CMP, LIPID, T7 #### [facility] [address] [place] [address] Dr. Logan Payne CBC AUTO DIFFon 06-27-2021 BASO # 0.1 103/ul Normal 0.0-0.1 [facility] Comment on above: Performed By: #### T SH, BNP, CMP, LIPID, T7 #### [facility] [address] [place] [address] Dr. Logan Payne Basophils/100 WBC (Bld) 1.1 % Normal 0.2-2.0 [facility] Comment on above: Performed By: #### T SH, BNP, CMP, LIPID, T7 #### [facility] [address] [place] [address] Dr. Logan Payne EO # 0.3 103/ul Normal 0.0-0.7 [facility] Comment on above: Performed By: #### T SH, BNP, CMP, LIPID, T7 #### [facility] [address] [place] [address] Dr. Logan Payne Eosinophils/100 WBC (Bld) 2.8 % Normal 0.9-7.0 [facility] Comment on above: Performed By: #### T SH, BNP, CMP, LIPID, T7 #### [facility] [address] [place] [address] Dr. Logan Payne Erythrocyte distribution width (RBC) [Ratio] 12.9 % Normal 11.0-15.0 [facility] Comment on above: Performed By: #### T SH, BNP, CMP, LIPID, T7 #### [facility] [address] [place] [address] Dr. Logan Payne Hematocrit (Bld) [Volume fraction] 46.6 % Normal 36.0-48.0 [facility] Comment on above: Performed By: #### T SH, BNP, CMP, LIPID, T7 #### [facility] [address] [place] [address] Dr. Logan Payne Hemoglobin (Bld) [Mass/Vol] 15.0 g/dL Normal 12.0-16.0 [facility] Comment on above: Performed By: #### T SH, BNP, CMP, LIPID, T7 #### [facility] [address] [place] [address] Dr. Logan Payne IG # 0.05 10e3/ul Critically high 0.00-0.03 [facility] Comment on above: Performed By: #### T SH, BNP, CMP, LIPID, T7 #### [facility] [address] [place] [address] Dr. Logan Payne IG % 0.5 % Normal 0.0-0.5 [facility] Comment on above: Performed By: #### T SH, BNP, CMP, LIPID, T7 #### [facility] [address] [place] [address] Dr. Logan Payne LYMPH # 2.8 103/ul Normal 1.2-3.8 [facility] Comment on above: Performed By: #### T SH, BNP, CMP, LIPID, T7 #### [facility] [address] [place] [address] Dr. Logan Payne Lymphocytes/100 WBC (Bld) 27.4 % Normal 20.5-60.0 [facility] Comment on above: Performed By: #### T SH, BNP, CMP, LIPID, T7 #### [facility] [address] [place] [address] Dr. Logan Payne MANUAL DIFF REQ NO Normal [facility] Comment on above: Performed By: #### T SH, BNP, CMP, LIPID, T7 #### [facility] [address] [place] [address] Dr. Logan Payne MCH (RBC) [Entitic mass] 33.9 pg Normal 26.7-34.0 [facility] Comment on above: Performed By: #### T SH, BNP, CMP, LIPID, T7 #### [facility] [address] [place] [address] Dr. Logan Payne MCHC (RBC) [Mass/Vol] 32.2 g/dL Normal 29.9-35.2 [facility] Comment on above: Performed By: #### T SH, BNP, CMP, LIPID, T7 #### [facility] [address] [place] [address] Dr. Logan Payne MCV (RBC) [Entitic vol] 105.2 fL Critically high 81.0-99 .0 [facility] Comment on above: Performed By: #### T SH, BNP, CMP, LIPID, T7 #### [facility] [address] [place] [address] Dr. Logan Payne MONO # 0.7 103/ul Normal 0.3-0.8 [facility] Comment on above: Performed By: #### T SH, BNP, CMP, LIPID, T7 #### [facility] [address] [place] [address] Dr. Logan Payne Monocytes/100 WBC (Bld) 7.2 % Normal 1.7-12.0 [facility] Comment on above: Performed By: #### T SH, BNP, CMP, LIPID, T7 #### [facility] [address] [place] [address] Dr. Logan Payne NEUT # 6.3 103/ul Normal 1.4-6.5 [facility] Comment on above: Performed By: #### T SH, BNP, CMP, LIPID, T7 #### [facility] [address] [place] [address] Dr. Logan Payne Neutrophils/100 WBC (Bld) 61.0 % Normal 43.0-75.0 [facility] Comment on above: Performed By: #### T SH, BNP, CMP, LIPID, T7 #### [facility] [address] [place] [address] Dr. Logan Payne Platelet mean volume (Bld) [Entitic vol] 9.3 fL Critically low 9.5-13.5 [facility] Comment on above: Performed By: #### T SH, BNP, CMP, LIPID, T7 #### [facility] [address] [place] [address] Dr. Logan Payne PLT 245 103/ul Normal 150-450 [facility] Comment on above: Performed By: #### T SH, BNP, CMP, LIPID, T7 #### [facility] [address] [place] [address] Dr. Logan Payne RBC 4.43 106/ul Normal 4.20-5.40 [facility] Comment on above: Result Comment: Macr ocytosis 1+ Performed By: #### T SH, BNP, CMP, LIPID, T7 #### [facility] [address] [place] [address] Dr. Logan Payne WBC 10.3 103/ul Normal 4.0-11.0 [facility] Comment on above: Performed By: #### T SH, BNP, CMP, LIPID, T7 #### [facility] [address] [place] [address] Dr. Logan Payne FREE THYROXINE INDEX T7on FTI 3.01 Normal [facility] Comment on above: Performed By: #### T SH, BNP, CMP, LIPID, T7 #### [facility] [address] [place] [address] [address] Logan Payne T3U 31.0 % Normal 23.5-40.5 [facility] Comment on above: Performed By: #### T SH, BNP, CMP, LIPID, T7 #### [facility] [address] [place] [address] [address] Logan Payne T4 [Mass/Vol] 9.70 ug/dL Normal 5.53-11.00 [facility] Comment on above: Performed By: #### T SH, BNP, CMP, LIPID, T7 #### [facility] [address] [place] [address] [address] Logan Payne GLYCOHEMOGLOBIN A1Con 2021 ADA RECOMMENDATION ADA THERAPEUTIC TARGET 6.0 - 7.0 ACTION SUGGESTED > 7.0 [facility] Comment on above: Performed By: #### A 1C #### [facility] [address] [place] [address] [address] Logan Payne Glucose [Mass/Vol] 126 mg/dL Normal [facility] Comment on above: Performed By: #### A 1C #### [facility] [address] [place] [address] [address] Logan Payne HbA1c (Bld) [Mass fraction] 6.0 % Normal <=6.0 [facility] Comment on above: Performed By: #### A 1C #### [facility] [address] [place] [address] [address] Logan Payne IRONon 06-27-2021 Iron [Mass/Vol] 90.0 ug/dL Normal 37.0-170.0 [facility] Comment on above: Performed By: #### I GRANT #### [facility] [address] [place] [address] [address] Logan Payne LIPID PROFILEon 06-27-2021 CHOL-HDL RATIO NORM SEE BELOW Normal [facility] Comment on above: Result Comment: 3.3 - 4.4 LOW RISK 4.4 - 7.1 AVERAGE RISK 7.1 - 11.0 MODERATE RISK >11.0 HIGH RISK Performed By: #### T SH, BNP, CMP, LIPID, T7 #### [facility] [address] [place] [address] [address] Logan Payne Cholesterol [Mass/Vol] 209 mg/dL Critically high <=200 [facility] Comment on above: Performed By: #### T SH, BNP, CMP, LIPID, T7 #### [facility] [address] [place] [address] [address] Logan Payne Cholesterol in HDL [Mass/Vol] 62 mg/dL Normal [facility] Comment on above: Performed By: #### T SH, BNP, CMP, LIPID, T7 #### [facility] [address] [place] [address] Dr. Logan Payne Cholesterol in LDL [Mass/Vol] 104.2 mg/dL Normal [facility] Comment on above: Performed By: #### T SH, BNP, CMP, LIPID, T7 #### [facility] [address] [address] [address] Logan Payne Cholesterol.total/Gabriela sterol in HDL [Mass ratio] 3.4 {ratio} Normal [facility] Comment on above: Performed By: #### T SH, BNP, CMP, LIPID, T7 #### [facility] [address] [place] [address] Dr. Logan Payne HDL NORMAL > or = 60 mg/dl - LO W CARDIOVASCULAR RISK <40 mg/dl - HIGH CARDIOVASCULAR RISK Normal [facility] Comment on above: Performed By: #### T SH, BNP, CMP, LIPID, T7 #### [facility] [address] [address] [address] Logan Payne LDL CALC NORMAL SEE BELOW Normal [facility] Comment on above: Result Comment: <100 mg/dl OPTIMAL 100 - 129 mg/dl NEAR OR ABOVE OPTIMAL 130 - 159 mg/dl BORDERLINE HIGH 160 - 189 mg/dl HIGH >190 mg/dl VERY HIGH Performed By: #### T SH, BNP, CMP, LIPID, T7 #### [facility] [address] [address] [address] Logan Payne Triglyceride [Mass/Vol] 214 mg/dL Critically high <=150 [facility] Comment on above: Performed By: #### T SH, BNP, CMP, LIPID, T7 #### [facility] [address] [place] [address] [address] Logan Payne VLDL CALC 42.8 mg/dL Normal [facility] Comment on above: Performed By: #### T SH, BNP, CMP, LIPID, T7 #### [facility] [address] [address] [address] Logan Payne PROF 14(COMP METB)on 022 Albumin [Mass/Vol] 4.3 g/dL Normal 3.5-5.0 [facility] Comment on above: Performed By: #### T SH, BNP, CMP, LIPID, T7 #### [facility] [address] [address] [address] Logan Payne Albumin/Globulin [Mass ratio] 1.0 {ratio} Normal [facility] Comment on above: Performed By: #### T SH, BNP, CMP, LIPID, T7 #### [facility] [address] [address] [address] Logan Payne ALP [Catalytic activity/Vol] 108 U/L Normal 38-126 [facility] Comment on above: Performed By: #### T SH, BNP, CMP, LIPID, T7 #### [facility] [address] [address] [address] Logan Payne ALT [Catalytic activity/Vol] 59 U/L Critically high 9-52 [facility] Comment on above: Performed By: #### T SH, BNP, CMP, LIPID, T7 #### [facility] [address] [address] [address] Logan Payne Anion gap [Moles/Vol] 16.0 mmol/L Normal [facility] Comment on above: Performed By: #### T SH, BNP, CMP, LIPID, T7 #### [facility] [address] [address] [address] Logan Payne AST [Catalytic activity/Vol] 52 U/L Critically high 14-36 [facility] Comment on above: Performed By: #### T SH, BNP, CMP, LIPID, T7 #### [facility] [address] [address] [address] Logan Payne Bilirubin [Mass/Vol] 0.3 mg/dL Normal 0.2-1.3 [facility] Comment on above: Performed By: #### T SH, BNP, CMP, LIPID, T7 #### [facility] [address] [address] [address] Logan Payne Calcium [Mass/Vol] 9.9 mg/dL Normal 8.4-10.2 [facility] Comment on above: Performed By: #### T SH, BNP, CMP, LIPID, T7 #### [facility] [address] [place] [address] Dr. Logan Payne Chloride [Moles/Vol] 105 mmol/L Normal 98-107 [facility] Comment on above: Performed By: #### T SH, BNP, CMP, LIPID, T7 #### [facility] [address] [place] [address] Dr. Logan Payne CO2 [Moles/Vol] 21.6 mmol/L Critically low 22.0-30.0 [facility] Comment on above: Performed By: #### T SH, BNP, CMP, LIPID, T7 #### [facility] [address] [place] [address] Dr. Logan Payne Creatinine [Mass/Vol] 1.01 mg/dL Normal 0.52-1.04 [facility] Comment on above: Performed By: #### T SH, BNP, CMP, LIPID, T7 #### [facility] [address] [place] [address] Dr. Logan Payne EGFR-AF SWISS >60 Normal >=60 [facility] Comment on above: Performed By: #### T SH, BNP, CMP, LIPID, T7 #### [facility] [address] [place] [address] Dr. Logan Payne EGFR-NON AF SWISS 53 mL/min/1.73m2 Critically low >=60 [facility] Comment on above: Performed By: #### T SH, BNP, CMP, LIPID, T7 #### [facility] [address] [place] [address] [address] Logan Payne Globulin (S) [Mass/Vol] 4.1 g/dL Normal [facility] Comment on above: Performed By: #### T SH, BNP, CMP, LIPID, T7 #### [facility] [address] [place] [address] [address] Logan Payne Glucose [Mass/Vol] 117 mg/dL Critically high 74-106 [facility] Comment on above: Performed By: #### T SH, BNP, CMP, LIPID, T7 #### [facility] [address] [place] [address] Dr. Logan Payne Potassium [Moles/Vol] 4.6 mmol/L Normal 3.4-5.0 [facility] Comment on above: Performed By: #### T SH, BNP, CMP, LIPID, T7 #### [facility] [address] [place] [address] [address] Logan Payne Protein [Mass/Vol] 8.4 g/dL Critically high 6.1-8.2 [facility] Comment on above: Performed By: #### T SH, BNP, CMP, LIPID, T7 #### [facility] [address] [place] [address] Dr. Logan Payne Sodium [Moles/Vol] 138 mmol/L Normal 137-145 [facility] Comment on above: Performed By: #### T SH, BNP, CMP, LIPID, T7 #### [facility] [address] [place] [address] Dr. Logan Payne Urea nitrogen [Mass/Vol] 18.0 mg/dL Critically high 7.0-17.0 [facility] Comment on above: Performed By: #### T SH, BNP, CMP, LIPID, T7 #### [facility] [address] [place] [address] Dr. Logan Payne Urea nitrogen/Creatinine [Mass ratio] 17.8 mg/mg Normal [facility] Comment on above: Performed By: #### T SH, BNP, CMP, LIPID, T7 #### [facility] [address] [place], [place] [address] Dr. Logan Payne TSHon 06-27-2021 TSH 1.510 uIU/mL Normal 0.470-4.680 [facility] Comment on above: Performed By: #### T SH, BNP, CMP, LIPID, T7 #### [facility] [address] [place], [place] [address] Dr. Logan Payne TSH RANGE SEE BELOW Normal [facility] Comment on above: Result Comment: <0.3 4 UIU/ml HYPERTHYROID 0.34-5.60 UIU/ml EUTHYROID >5.60 UIU/ml HYPOTHYROID Performed By: #### T SH, BNP, CMP, LIPID, T7 #### [facility] [address] [place] [address] [address] Logan Payne Vital Signs Date Time Vital Sign Value Performing Clinician Faci lity 06-25-2022 11:18-0500 Body temperature 97.8 [degF] MD Irish Faustin Work Phone: [facility] 06-25-2022 11:18-0500 Diastolic blood pressure 70 mm[Hg] MD Irish Faustin Work Phone: [facility] 06-25-2022 11:18-0500 Heart rate 69 /min MD Irish Faustin Work Phone: [facility] 06-25-2022 11:18-0500 SaO2% (BldA) [Mass fraction] 94 % MD Irish Faustin Work Phone: [facility] 06-25-2022 11:18-0500 Systolic blood pressure 140 mm[Hg] MD Irish Faustin Work Phone: [facility] 06-25-2022 04:17-0500 Respiratory rate 18 /min MD Irish Faustin Work Phone: [facility] 06-24-2022 07:18-0500 Body height 157.48 cm MD Irish Faustin Work Phone: [facility] 06-22-2022 11:19-0500 Body weight 67.2 kg MD Irish Faustin Work Phone: [facility] 06-16-2022 16:00-0500 Body temperature 97.6 [degF] MD Irish Faustin Work Phone: [facility] 06-16-2022 16:00-0500 Diastolic blood pressure 75 mm[Hg] MD Irish Faustin Work Phone: [facility] 06-16-2022 16:00-0500 Heart rate 72 /min MD Irish Faustin Work Phone: [facility] 06-16-2022 16:00-0500 Respiratory rate 16 /min MD Irish Faustin Work Phone: [facility] 06-16-2022 16:00-0500 SaO2% (BldA) [Mass fraction] 96 % MD Irish Faustin Work Phone: [facility] 06-16-2022 16:00-0500 Systolic blood pressure 127 mm[Hg] MD Irish Faustin Work Phone: [facility] 06-16-2022 06:00-0500 Body weight 68.8 kg MD Irish Faustin Work Phone: [facility] 06-11-2022 15:23-0500 Body height 157.48 cm MD Irish Faustin Work Phone: [facility] 06-09-2022 12:00-0500 Inhaled oxygen flow rate 2 L/min MD Irish Faustin Work Phone: [facility] Encounters Encounter Date Encounter Type Care Provider Facility Start: 06-27-2024 End: 06-27-2024 ambulatory [facility] Start: 04-17-2024 End: 04-17-2024 [facility] Start: 12-28-2023 End: 12-28-2023 ambulatory [facility] Start: 06-16-2022 End: 06-25-2022 Evaluation and management of inpatient Stiven Zaman Facility:[facility] Start: 06-16-2022 End: 06-25-2022 Evaluation and management of inpatient MD Irish Faustin Work Phone: [facility] Work Phone: Start: 06-13-[address] Yoav Prado Facility:[id number] Start: 06-11-[address] Irish Faustin Facility:[facility] Start: 06-09-[address] Irish Faustin Facility:[id number] Start: 06-09-2022 End: 06-16-2022 Evaluation and management of inpatient Chema Annia Facility:[facility] Start: 06-09-2022 End: 06-16-2022 Evaluation and management of inpatient MD Irish Faustin Work Phone: [facility] Work Phone: Start: 06-08-2022 End: 06-09-[address] IRISH FAUSTIN Facility:[facility]1 Start: 01-12-2022 ambulatory VENUS TONG Facility :[facility] Start: 11-27-2021 ambulatory VENUS TONG Facility :[facility] Start: 11-22-2021 End: 11-25-2021 Evaluation and management of inpatient PHYSICIAN UNKNOWN Facility:[facility] Start: 11-05-2021 End: 11-06-2021 ambulatory [...] Date Care Activity Detail Author Start: 06-25-2022 [facility] Start: 06-16-2022 [facility] Start: 06-16-2022 Hospital admission [facility] Start: 06-16-2022 Referral to clinical disulfurizer tender [facility] Start: 06-16-2022 [facility] Start: 06-12-2022 Doppler ultrasonogra phy of bilateral carotid arteries US carotid doppler BI [facility] Start: 06-12-2022 US.doppler Carotid a rteries - bilateral [facility] Start: 06-09-2022 Hospital admission [facility] Patient Education Stroke (DC) [facility] Work Phone: Patient referral [facility] Work Phone: [facility] Payers Date Payer Category Payer Self-pay 1981 Medicare [id number] 1959 Medicare [id number] 1959 Private Health Insurance [id number] 1959 Self-pay [id number] 1940 Unknown [id number] 2.16.8 [id number] 1940 Unknown [id number] 2.16.84 [id number] 1940 Unknown [id number] 2.16.84 [id number] 1940 Unknown [id number] 2.16.84 [id number] 1940 Unknown [id number] 2.16.84 [id number] 1940 Unknown [id number] 2.16.84 [id number] 1940 Unknown [id number] 2.16.84 [id number] 1940 Unknown [id number] 2.16. [id number] 1940 Unknown [id number] 2.16. [id number] Unknown [id number] 2.16.8 [id number] Unknown [id number] 2.16.8 [id number] Social History Date Type Detail Facility Start: 06-09-2022 End: 06-17-2022 Tobacco smoking status NHIS Never smoked tobacco (finding) [facility] Start: 1940 Sex Assigned At Female F [facility] Goals Date Patient Goal Desired Activity /State Functional Status Date Assessment Result Facility 06-25-2022 Functional status Patient at Baseline [facility] Work Phone: 06-16-2022 Functional status Patient is Pro gressing Toward Baseline [facility] Work Phone: Mental Status Date Assessment Result Facility 06-25-2022 Cognitive function Cognitive Sta tus Patient at Baseline [facility] Work Phone: 06-16-2022 Cognitive function Cognitive Sta tus Patient is Progressing Toward Baseline [facility] Work Phone: Clinical Notes 11-26-2021 to 04-17-2024 Note Date & Type Note Facility 04-17-2024 Note [facility] Cardiology Clinic Note Chief Complaint: Patient here for 1 year follow up CAD, PAF, carotid artery stenosis, and valve disorder. Had echo in May 2023. She denies worsening [place], palpitations, and bleeding on Eliquis. Does get intermittent pain she says from under her arms to her back and chest. She does get steroid injections from Dr. Faustin for back pain. HPI: Deep[place]raina Gomez is a 83 y.o. female past [...] in the morning., Disp: , Rfl: HYDROcodone-acetaminophen (Jackson) 5-325 mg tablet, Take 5-325 tablets by [...] 10 mg tablet, Disp: , Rfl: omega 9-nrg-wcc-fish oil (Fish OiL) 1,000 mg (120 mg-180 [...] no carotid brui (more content not included)... [facility] 06-24-2022 Discharge summary Note Date/Time June 24, 2022 12:11pm [facility] [address] [place] [address] Discharge Summary Signed Patient: Abdirahman Gomez MR#: [id number] : 1940 Acct:[id number] Age/Sex: 81 / F Adm Date: 3 Loc: Room: [address] [place] [address]: Stiven Zaman MD Copies to: [...] lobe. She presented to outside facility around [place] with several days of generalized weakness. Her troponins were elevated. She was transferred to [facility]. Cardiology was consulted, did not [...] blood in the stool on admission to [facility], consistent with lower GI bleed. She was [...] ADLs. She will be discharged home with [facility] home health services tomorrow. She already [...] Patient Disposition: [facility] Activity: Ambulate as Tolerated Diet: Low-Sodium and Low-Cholesterol Comment: Heart Healthy 3-4gm Sodium Additional Instructions: -Code Status: Full Code -Activity: Ambulate as tolerated -Diet: Heart Healthy 3-4gm Sodium, low cholesterol -Follow feeding strategies: Sit upright 90 degrees, pacing/slow rate, alternate liquids/solids. Your Home Health agency is [facility] ( ). They will contact you [...] <Electronically signed by KIM Crowell> 06/25/22 [address] [facility] Work Phone: 1(225) 310-889501-11-2023 Hospital Discharge instructionsAmbulatory Orders* Initiate Home Health Time Frame: 06/24/22, Location: Determined By Patient Additional Instructions -Code Status: Full Code -Activity: Ambulate as tolerated -Diet: Heart Healthy 3-4gm Sodium, low cholesterol -Follow feeding strategies: Sit upright 90 degrees, pacing/slow rate, alternate liquids/solids. Your Home Health agency is [facility] [employer] ( ). They will contact you within [...] office to inform them prior to your appointment.[facility] Work Phone: 1([phone]) 381-547901-10-2023 Progress note Author Stiven Zaman [facility] June 23, 2022 9:35pm Note Date/Time June 22, 2022 11 :35am [facility] [address] [place] [address] Physiatry(Rehab) Progress Note Signed Patient: Abdirahman Gomez MR#: [id number] : 1940 Acct:[id number] Age/Sex: 81 / F Adm Date: 3 Loc: 5T Room: 4V2622-6 Type: ADM IN Attending Dr: Stiven Zaman [...] lobe. She presented to outside facility around [place] with several days of generalized weakness. Her troponins were elevated. She was transferred to [facility]. Cardiology was consulted, did not [...] blood in the stool on admission to [facility], consistent with lower GI bleed. She was [...] mg 06/16/22 18:36 Bisacodyl 10 Mg Supp.Rect IA 06/16/23 18:35 DAILY PRN Constipation Carvedilol 12.5 mg 06/16/22 21:00 06/22/22 09:13 Carvedilol 12.5 Mg Tablet PO 06/16/23 20:59 12.5 mg BID JAK Administration Docusate Sodium 100 mg 06/16/22 18:36 Docusate 100 Mg Capsule PO 06/16/23 18:35 BID PRN Constipation Docusate Sodium 283 mg 06/16/22 18:36 Docusate Enema 283 Mg/5 Ml Enema IA 06/16/23 18:35 DAILY PRN Constipation Furosemide 20 [...] mcg DAILY JAK Administration Assessment/Plan <Lori Crowell, [employer] OFFBEARER - Last Filed: 06/22/22 11:45> Assessment/Plan (1) [...] tizanidine with h/o afib. Chronic pain received Jackson 5/[address] Faustin. Will change from q4h to twice daily as at home. OARRS reviewed. Bowel and bladder: Continent. Skin: No pressure ulcers Sleep: Optimize sleep / wake. DVT prophylaxis: Covered with Eliquis. Functional status: Ambulatory. Needs assist. Left hemiplegia. Impaired endurance. Discharge planning: Home 7-10 days. I spent greater than 15 minutes for services, including lmbv-hp-otql encounter with the patient, discussion of the case, plan of care, and exam; and wcrwprh-qx-klcz activities, such as reviewing pertinent teamcenter consultant documentation, recent therapy notes, laboratory and radiology studies, and discussion of case with care team including physician, nursing, case maker, and therapists. More than 50 % of [...] tizanidine with h/o afib. Chronic pain received Jackson 5/[address] Faustin. Will change from q4h to twice daily as at home. OARRS reviewed. Bowel and bladder: Continent. Skin: No pressure ulcers Sleep: Optimize sleep / wake. DVT prophylaxis: Covered with Eliquis. Functional status: Ambulatory. Needs assist. Left hemiplegia. Impaired endurance. Discharge planning: Home end of week I spent greater than 15 minutes for services, including jvxn-mi-vddb encounter with the patient, discussion of the case, plan of care, and exam; and mnkgsyp-vy-mdgx activities, such as reviewing pertinent teamcenter consultant documentation, recent therapy notes, laboratory and radiology studies, and discussion of case with care team including physician, nursing, case maker, and therapists. More than 50 % of time was spent on patient/family counseling or coordination ofcare. Decision Plan: I completed a substantive portion of this encounter, the medical decision makingportion of this note in its entirety, including Allied health note review, nursing note review, teamcenter consultant note review, discussion with nursing and case management, and more than 50% of my time was spent on counseling and coordination of care, time spent 25 minutes Patient was personally seen by me, Dr. Zaman, on the day of encounter, reviewed the history and the relevant portions of the chart, including current orders, allied health and teamcenter consultant notes, labs/imaging and performed smith elements of exam and I formulated the plan of care and facilitated the medical decision making. Documented By: Stiven Zaman MD 06/22/22 1345 Signed By: <Electronically signed by Stiven Zaman MD> [id number] <Electronically signed by KIM Crowell> 06/22/22 [address] [facility] Work Phone: 1([phone]) 629-489401-10-2023 Progress note Author Stiven Zaman [facility] June 23, 2022 9:25pm Note Date/Time June 23, 2022 1 2:28pm [facility] [address] [place] [address] Physiatry(Rehab) Progress Note Signed Patient: Abdirahman Gomez MR#: [id number] : 1940 Acct:[id number] Age/Sex: 81 / F Adm Date: 3 Loc: Room: [address] [place] [address] Type: ADM IN Attending Dr: Stiven Zaman [...] lobe. She presented to outside facility around [place] with several days of generalized weakness. Her troponins were elevated. She was transferred to [facility]. Cardiology was consulted, did not [...] blood in the stool on admission to [facility], consistent with lower GI bleed. She was [...] % (Auto) 55.7 Lymph % (Auto) 31.9 [place] % (Auto) 8.4 Eos % (Auto) 3.2 Baso % (Auto) 0.8 Nucleat RBC Rel Count 0.1 Neut # (Auto) 4.5 Lymph # (Auto) 2.6 [place] # (Auto) 0.7 Eos # (Auto) 0.3 [...] Tablet PO 06/16/23 20:59 5 mg BID JKA Administration Atorvastatin Calcium 80 mg 06/16/22 22:00 06/22/22 20:54 Atorvastatin 80 Mg Tablet PO 06/16/23 21:59 80 mg HS JAK Administration Bisacodyl 10 mg 06/16/22 18:36 Bisacodyl 10 Mg Supp.Rect IA 06/16/23 18:35 DAILY PRN Constipation Carvedilol 12.5 mg 06/16/22 21:00 06/23/22 10:00 Carvedilol 12.5 Mg Tablet PO 06/16/23 20:59 12.5 mg BID JAK Administration Docusate Sodium 100 mg 06/16/22 18:36 Docusate 100 Mg Capsule PO 06/16/23 18:35 BID PRN Constipation Docusate Sodium 283 mg 06/16/22 18:36 Docusate Enema 283 Mg/5 Ml Enema IA 06/16/23 18:35 DAILY PRN Constipation Furosemide 20 [...] tizanidine with h/o afib. Chronic pain received Jackson 5/[address] Faustin. Will change from q4h totwice daily as at home. OARRS reviewed. Bowel and bladder: Continent. Skin: No pressure ulcers Sleep: Optimize sleep / wake. DVT prophylaxis: Covered with Eliquis. Functional status: Ambulatory. Needs assist. Left hemiplegia. Impaired endurance. Discharge planning: Home Wednesday or . I spent greater than 15 minutes for services, including njsf-wy-oypm encounter with the patient, discussion of the case, plan of care, and exam; and wmivsqj-mp-lhop activities, such as reviewing pertinent teamcenter consultant documentation, recent therapy notes, laboratory and radiology studies, and discussion of case with care team including physician, nursing, case maker, and therapists. More than 50 % of [...] tizanidine with h/o afib. Chronic pain received Jackson 5/[address] Faustin. Will change from q4h to twice daily as at home. OARRS reviewed. Bowel and bladder: Continent. Skin: No pressure ulcers Sleep: Optimize sleep / wake. DVT prophylaxis: Covered with Eliquis. Functional status: Ambulatory. Needs assist. Left hemiplegia resolved. Impairedendurance. Discharge planning: Home Wednesday or , pending FI. I spent greater than 15 minutes for services, including tzap-le-rmjr encounter with the patient, discussion of the case, plan of care, and exam; and tdpunyt-hj-jnki activities, such as reviewing pertinent teamcenter consultant documentation, recent therapy notes, laboratory and radiology studies, and discussion of case with care team including physician, nursing, case maker, and therapists. More than 50 % of time was spent on patient/family counseling or coordination ofcare. Decision Plan: I completed a substantive portion of this encounter, the medical decision makingportion of this note in its entirety, including Allied health note review, nursing note review, teamcenter consultant note review, discussion with nursing and case management, and more than 50% of my time was spent on counseling and coordination of care, time spent 25 minutes Patient was personally seen by me, Dr. Zaman, on the day of encounter, reviewed the history and the relevant portions of the chart, including current orders, allied health and teamcenter consultant notes, labs/imaging and performed smith elements of exam and I formulated the plan of care and facilitated the medical decision making. Documented By: Stiven Zaman MD 06/23/221220 Signed By: <Electronically signed by Stiven Zaman MD> 06/23/222124 <Electronically signed by KIM Crowell> 06/23/228 [facility] Work Phone: 1(397) 744-989401-06-2023 Progress note Author Stiven Zaman [facility] June 19, 2022 3:19pm Note Date/Time June 19, 2022 3: 19pm [facility] [address] [place] [address] Physiatry(Rehab) Progress Note Signed Patient: Abdirahman Gomez MR#: [id number] : 1940 Acct:[id number] Age/Sex: 81 / F Adm Date: 3 Loc: Room: 4S7002-1 Type: ADM IN Attending Dr: Stiven Zaman [...] lobe. She presented to outside facility around [place] with several days of generalized weakness. Her troponins were elevated. She was transferred to [facility]. Cardiology was consulted, did not [...] blood in the stool on admission to [facility], consistent with lower GI bleed. She was [...] 05:00 06/19/22 08:30 Narrative: General: cooperative, comfortable HENIA Head: normal to inspection Eyes General: appearance [...] mg 06/16/22 18:36 Bisacodyl 10 Mg Supp.Rect IA 06/16/23 18:35 DAILY PRN Constipation Carvedilol 12.5 mg 06/16/22 21:00 06/19/22 08:26 Carvedilol 12.5 Mg Tablet PO 06/16/23 20:59 12.5 mg BID JAK Administration Docusate Sodium 100 mg 06/16/22 18:36 Docusate 100 Mg Capsule PO 06/16/23 18:35 BID PRN Constipation Docusate Sodium 283 mg 06/16/22 18:36 Docusate Enema 283 Mg/5 Ml Enema IA 06/16/23 18:35 DAILY PRN Constipation Furosemide 20 [...] tizanidine with h/o afib. Chronic pain received Jackson 5/[address] Faustin. Will change [...] Allied health note review, nursing note review, teamcenter consultant note review, discussion with nursing and case management, and more than 50% of my time was spent on counseling and coordination of care, time spent 35 minutes Patient was personally seen by me, Dr. Zaman, on the day of encounter, reviewed the history and the relevant portions of the chart, including current orders, allied health and teamcenter consultant notes, labs/imaging and performed smith elements of exam and I formulated the plan of care and facilitated the medical decision making. Documented By: Stiven Zaman MD 06/19/22 151 Signed By: <Electronically signed by Stiven Zaman MD> 06/19/22 1519 [facility] Work Phone: 1(368) 973-129601-05-2023 Progress note Author Stiven Zaman [facility] June 18, 2022 12:49pm Note Date/Time June 18, 2022 12 :49pm [facility] [address] [place] [address] Physiatry(Rehab) Progress Note Signed Patient: Abdirahman Gomez MR#: [id number] : 1940 Acct:[id number] Age/Sex: 81 / F Adm Date: 3 Loc: Room: 4H1238-2 Type: ADM IN Attending Dr: Stiven Zaman [...] lobe. She presented to outside facility around [place] with several days of generalized weakness. Her troponins were elevated. She was transferred to [facility]. Cardiology was consulted, did not [...] blood in the stool on admission to [facility], consistent with lower GI bleed. She was [...] 05:00 06/18/22 05:00 Narrative: General: cooperative, comfortable HENIA Head: normal to inspection Eyes General: appearance [...] mg 06/16/22 18:36 Bisacodyl 10 Mg Supp.Rect IA 06/16/23 18:35 DAILY PRN Constipation Carvedilol 12.5 mg 06/16/22 21:00 06/18/22 07:49 Carvedilol 12.5 Mg Tablet PO 06/16/23 20:59 12.5 mg BID JAK Administration Docusate Sodium 100 mg 06/16/22 18:36 Docusate 100 Mg Capsule PO 06/16/23 18:35 BID PRN Constipation Docusate Sodium 283 mg 06/16/22 18:36 Docusate Enema 283 Mg/5 Ml Enema IA 06/16/23 18:35 DAILY PRN Constipation Furosemide 20 [...] tizanidine with h/o afib. Chronic pain received Jackson 5/[address] Faustin. Will change [...] Allied health note review, nursing note review, teamcenter consultant note review, discussion with nursing and case management, and more than 50% of my time was spent on counseling and coordination of care, time spent 30 minutes Patient was personally seen by me, Dr. Zaman, on the day of encounter, reviewed the history and the relevant portions of the chart, including current orders, allied health and teamcenter consultant notes, labs/imaging and performed smith elements of exam and I formulated the plan of care and facilitated the medical decision making. Documented By: Stiven Zaman MD 06/18/22 124 Signed By: <Electronically signed by Stiven Zaman MD> 06/18/22 [address] [facility] Work Phone: 1(546) 647-469501-04-2023 History and physical note Author Stiven Zaman [facility] June 17, 2022 3:54pm Note Date/Time June 17, 2022 9: 40am [facility] [address] [place] [address] Physiatry (Rehab) H&P Signed Patient: Abdirahman Gomez MR#: [id number] : 1940 Acct:[id number] Age/Sex: 81 / F Adm Date: 3 Loc: 5T Room: 0G5748-4 Type: ADM IN Attending Dr: Stiven Zaman MD Copies to: MD Stiven Mccullough MD~ Date of Service: 06/17/2022 [facility] The patient was seen and examined on: 06/17/22 History of Present Illness: Ms. Gomez is a 81 year old female with history of CAD status post CABG, remote, atrial fibrillation, pacemaker placed, admitted to the rehabilitation unit with functional decline secondary to bilateral hemisphere cardioembolic stroke, right parietal lobe, left occipital lobe. She presented to outside facility around [place] with several days of generalized weakness. Her troponins were elevated. She was transferred to [facility]. Cardiology was consulted, did not [...] blood in the stool on admission to [facility], consistent with lower GI bleed. She was cleared to remain on Eliquis. Etiologylikely mild diverticular bleed. On evaluation today she feels generally well. 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 She does not appreciate any significant weakness at this point. [facility] Vaccinated for COVID-19?: Yes Medical History A-fib [...] Bisacodyl (Bisacodyl 10 Mg Supp.Rect) 10 mg IA DAILY PRN PRN Reason: Constipation Stop: 06/16/23 18:35 Carvedilol (Carvedilol 12.5 Mg Tablet) 12.5 mg PO BID JAK Stop: 06/16/23 20:59 Last Admin: 06/17/22 08:04 Dose: 12.5 mg Docusate Sodium (Docusate 100 Mg Capsule) 100 mg PO BID PRN PRN Reason: Constipation Stop: 06/16/23 18:35 Docusate Sodium (Docusate Enema 283 Mg/5 Ml Enema) 283 mg IA DAILY PRN PRN Reason: Constipation Stop: 06/16/23 18:35 Furosemide (Furosemide 20 Mg Tablet) 20 mg PO DAILY JAK Stop: 06/17/23 08:59 Isosorbide Mononitrate (Isosorbide Mononitrate 24hr Er 60 Mg Tab.Er.24h) 60 mg PO DAILY [facility] Stop: 06/17/23 08:59 Lactulose (Lactulose 20 Gm/30 Ml Udc) 30 gm PO DAILY PRN PRN Reason: Constipation Stop: 06/16/23 18:35 Melatonin (Melatonin 5 Mg Tablet) 5 mg PO QHS PRN PRN Reason: Insomnia Stop: 06/16/23 18:34 Last Admin: 06/16/22 21:17 Dose: 5 mg Metformin HCl (Metformin 500 Mg Tablet) 500 mg PO DAILY [facility] Stop: 06/17/23 08:59 Montelukast Sodium (Montelukast 10 Mg Tablet) 10 mg PO HS [facility] Stop: 06/16/23 21:59 Last Admin: 06/16/22 21:17 Dose: 10 mg Omeprazole (Omeprazole 20 Mg Capsule.Dr) 40 mg PO DAILY [facility] Stop: 06/17/23 08:59 Last Admin: 06/17/22 08:07 Dose: 40 mg Polyethylene Glycol (Polyethylene Glycol 3350 17 Gm Powd.Pack) 17 gm PO DAILY JAK Stop: 06/17/23 08:59 Last Admin: 06/17/22 08:07 Dose: Not Given Potassium Chloride (Potassium Chloride Er 20 Meq Tab.Er.Prt) 20 meq PO DAILY [facility] Stop: 06/17/23 08:59 Last Admin: 06/17/22 08:07 Dose: 20 meq Pramipexole Dihydrochloride (Pramipexole 0.5 Mg Tablet) 0.5 mg PO HS [facility] Stop: 06/16/23 21:59 Last Admin: [...] 05:57 06/17/22 05:57 Narrative: General: cooperative, comfortable HENIA Head: normal to inspection Eyes General: appearance [...] % (Auto) 57.7 Lymph % (Auto) 29.1 [place] % (Auto) 9.4 Eos % (Auto) 2.4 Baso % (Auto) 1.4 Nucleat RBC Rel Count 0.0 Neut # (Auto) 6.3 Lymph # (Auto) 3.2 [place] # (Auto) 1.0 H Eos # (Auto) [...] mobility Anticipated interventions: Physician management, PT, OT, THREAD SINGER, , Dietitian, RehabNursing, Case management 2. Therapy Functional Outcome/Goal: Anticipate independent for transfers Anticipated interventions: Physician management, PT, OT, THREAD SINGER, Case management, Dietitian, Rehab Nursing 3. Therapy Functional Outcome/Goal: Anticipate independent for ambulation Anticipated interventions: Physician management, PT, OT, THREAD SINGER Case management, Dietitian, Rehab Nursing 4.Therapy Functional Outcome/Goal: Anticipate independent for self-care Anticipated interventions: Physician management, PT, OT, THREAD SINGER, Case management, Dietitian, Rehab Nursing 5.Therapy Functional Outcome/Goal: Anticipate independent for functional communication and swallowing Anticipated interventions: Physician management, PT, OT, THREAD SINGER, Case management, Dietitian, Rehab Nursing Required Therapy [...] additional therapy on as needed basis. Comments: THREAD SINGER to evaluate and treat patient?s cognition, language and communication skills, assess swallow function. Other: Dietitian, Rehab nursing, Wound, P&O, Neuropsychology as needed RATIONALE FOR IRF ADMISSION: Patient has both medical and functional complexities that require 24 hour daily monitoring and intervention from Flour Blender Helper as well as other consulting physicians including internal medicine as well as 24 hour daily alumni relations coordinator nursing - for medical safe / optimal management. Patient requires interdisciplinary therapy team rehabilitation care including OT, PT, THREAD SINGER, SW, Psychology, Rehab Nursing, requires and can [...] tizanidine with h/o afib. Chronic pain received Jackson 5/[address] Faustin. Will change [...] Allied health note review, nursing note review, teamcenter consultant note review, discussion with nursing and case management, and more than 50% of my time was spent on counseling and coordination of care, time spent 55 minutes Patient was personally seen by me, Dr. Zaman, on the day of encounter, reviewed the history and the relevant portions of the chart, including current orders, allied health and teamcenter consultant notes, labs/imaging and performed smith elements of exam and I formulated the plan of care and facilitated the medical decision making. Documented By: Stiven Zaman MD 06/17/22 8574 Signed By: <Electronically signed by Stiven Zaman MD> 06/17/22 3193 [facility] Work Phone: 1(112) 120-325901-04-2023 Consult note Author Rafik Massouh [facility] June 17, 2022 1:33pm Note Date/Time June 17, 2022 1: 33pm [facility] [address] [place] [address] Hospitalist Consult Note Signed Patient: Abdirahman Gomez MR#: [id number] : 1940 Acct:[id number] Age/Sex: 81 / F Adm Date: 3 Loc: Room: [address] [place] [address] Type: ADM IN Attending Dr: Stiven Zaman [...] mg 06/16/22 18:36 Bisacodyl 10 Mg Supp.Rect IA 06/16/23 18:35 DAILY PRN Constipation Carvedilol 12.5 mg 06/16/22 21:00 06/17/22 08:04 Carvedilol 12.5 Mg Tablet PO 06/16/23 20:59 12.5 mg BID JAK Administration Docusate Sodium 100 mg 06/16/22 18:36 Docusate 100 Mg Capsule PO 06/16/23 18:35 BID PRN Constipation Docusate Sodium 283 mg 06/16/22 18:36 Docusate Enema 283 Mg/5 Ml Enema IA 06/16/23 18:35 DAILY PRN Constipation Furosemide 20 [...] oriented to place, time and person HEENT: [place] conjunctiva and NL buccal mucosa Neck: Supple, [...] % (Auto) 57.7, Lymph % (Auto) 29.1, [place] % (Auto) 9.4, Eos % (Auto) 2.4, Baso % (Auto) 1.4, Nucleat RBC Rel Count 0.0, Neut # (Auto) 6.3, Lymph # (Auto) 3.2, [place] # (Auto) 1.0 H, Eos # (Auto) [...] PCP and out patient providers to obtain [facility] record entirely to follow up on illnesses, symptoms, abnormal findings that I have and have not addressed during this encounter and hospitalization in out patient setting. Documented By: Frida De La Cruz MD 06/17/22 1329 Signed By: <Electronically signed by Frida De La Cruz MD> 06/17/22 1333 [facility] Work Phone: 1(858) 589-517901-03-2023 Progress note Author Frida De La Cruz [facility] June 16, 2022 11:42am Note Date/Time June 16, 2022 11 :42am [facility] [address] [place] [address] Progress Note Signed Patient: Abdirahman Gomez MR#: [id number] : 1940 Acct:[id number] Age/Sex: 81 / F Adm Date: 2 Loc: Room: [address] [place] [address] Type: ADM IN Attending Dr: Frida De [...] Frida De La Cruz MD> 06/16/22 1142 [facility] Work Phone: 1(490) 616-465901-03-2023 Discharge summary Author Frida De La Cruz [facility] June 16, 2022 8:32am Note Date/Time June 16, 2022 8: 24am [facility] [address] [place] [address] Discharge Summary Signed with Addenda Patient: Abdirahman Gomez MR#: [id number] : 1940 Acct:[id number] Age/Sex: 81 / F Adm Date: 2 Loc: 3T Room: 3U3144-[address]: Frida De La Cruz MD [...] fib with RVR. She was seen by bird sitter. She was recommended to be on Eliquis [...] % (Auto) 61.6, Lymph % (Auto) 27.7, [place] % (Auto) 6.9, Eos % (Auto) 2.6, Baso % (Auto) 1.2, Nucleat RBC Rel Count 0.1, Neut # (Auto) 6.6, Lymph # (Auto) 2.9, [place] # (Auto) 0.7, Eos # (Auto) 0.3, [...] oriented to place, time and person HEENT: [place] conjunctiva and NL buccal mucosa Neck: Supple, [...] Plan Patient Disposition: [place] [facility] Activity: No Activity Restriction Diet: Low-Sodium and [...] ask your primary care provider to obtain [facility] records entirely to follow up on all of the abnormal physical, laboratory, and imaging findings that I have not addressed. Please return back to the emergency room or seek medical attention if your symptoms worsen or return. Discharging you from [facility] does not mean that your [...] by Frida De La Cruz MD> 06/16/22823 [facility] Work Phone: 1(700) 119-206201-02-2023 Progress note Author Frida De La Cruz [facility] June 15, 2022 8:38am Note Date/Time June 15, 2022 8: 38am [facility] [address] [place] [address] Hospitalist Progress Note Signed Patient: Abdirahman Gomez MR#: [id number] : 1940 Acct:[id number] Age/Sex: 81 / F Adm Date: 2 Loc: 3T Room: [address] [place] [address] Type: ADM IN Attending Dr: Frida De [...] oriented to place, time and person HEENT: [place] conjunctiva and NL buccal mucosa Neck: Supple, [...] Frida De La Cruz MD> 06/15/22 0838 [facility] Work Phone: 1(798) 614-732401-01-2023 Progress note Author Nathaniel Castillo [facility] June 14, 2022 2:53pm Note Date/Time June 14, 2022 2: 53pm [facility] [address] [place] [address] Hospitalist Progress Note Signed Patient: Abdirahman Gomez MR#: [id number] : 1940 Acct:[id number] Age/Sex: 81 / F Adm Date: 2 Loc: Room: [address] [place] [address] Type: ADM IN Attending Dr: Nathaniel Castillo [...] 06/09/23 21:59 0.5 mg HS AJK Administration Psyllium Hydrophilic Mucilloid 1 packet 06/13/22 [...] signed by Nathaniel Castillo MD> 06/14/22 145 [facility] Work Phone: 1(462) 513-694612-31-2022 Progress note Author Yoav Prado [facility] June 13, 2022 2:58pm Note Date/Time June 13, 2022 2:56pm [facility] [address] [place] [address] Cardiology Progress Note Signed Patient: Abdirahman Gomez MR#: [id number] : 1940 Acct:[id number] Age/Sex: 81 / F Adm Date: 2 Loc: Room: [address] [place] [address] Type: ADM IN Attending Dr: Nathaniel Castillo [...] signed by MD Yoav Prado> 06/13/22 1458 [facility] Work Phone: 1(151) 409-827812-31-2022 Progress note Author Nathaniel Castillo [facility] June 13, 2022 2:00pm Note Date/Time June 13, 2022 9:29am [facility] [address] [place] [address] Hospitalist Progress Note Signed Patient: Abdirahman Gomez MR#: [id number] : 1940 Acct:[id number] Age/Sex: 81 / F Adm Date: 2 Loc: Room: [address] [place] [address] Type: ADM IN Attending Dr: Nathaniel Castillo [...] of care and confirmed it with the resident/student/DUST MILL OPERATOR. Patient resting in bed comfortably. Denies chest [...] signed by DO RYAN Juarez> 06/13/22 1020 [facility] Work Phone: 1([phone]) 359-518812-30-2022 Progress note Author Nathaniel Castillo [facility] June 12, 2022 3:02pm Note Date/Time June 12, 2022 1:38pm [facility] [address] [place] [address] Hospitalist Progress Note Signed Patient: Abdirahman Gomez MR#: [id number] : 1940 Acct:[id number] Age/Sex: 81 / F Adm Date: 2 Loc: Room: [address] [place] [address] Type: ADM IN Attending Dr: Nathaniel Castillo [...] of care and confirmed it with the resident/student/DUST MILL OPERATOR. Patient resting in chair comfortably. 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 strength left hand well driller helper, full strength with flexion and extension of [...] Tablet PO 06/10/23 21:59 Not Given HS [facility] Carvedilol 12.5 mg 06/09/22 08:00 06/12/22 08:30 Carvedilol 12.5 Mg Tablet PO 06/09/23 07:59 12.5 mg BID.WITH.MEALS JAK Administration Melatonin 5 mg 06/09/22 04:43 06/10/22 21:43 Melatonin 5 Mg Tablet PO 06/09/23 04:42 5 mg QHS PRN Administration Insomnia Montelukast Sodium 10 mg 06/09/22 22:00 06/12/22 00:28 Montelukast 10 Mg Tablet PO 06/09/23 21:59 Not Given HS [facility] Nitroglycerin 0.4 mg 06/10/22 10:05 [...] Tablet PO 06/09/23 21:59 Not Given HS [facility] Tizanidine HCl 4 mg 06/09/22 [...] signed by DO RYAN Juarez> 06/12/22 1442 [facility] Work Phone: 1(284) 222-617612-30-2022 Progress note Author Paramjit Pride [facility] June 12, 2022 11:05am Note Date/Time June 12, 2022 11:05am [facility] [address] [place] [address] Cardiology Progress Note Signed Patient: Abdirahman Gomez MR#: [id number] : 1940 Acct:[id number] Age/Sex: 81 / F Adm Date: 2 Loc: Room: [address] [place] [address] Type: ADM IN Attending Dr: Nathaniel Castillo [...] signed by Paramjit Pride MD> 06/12/22 1105 [facility] Work Phone: 1(215) 568-704412-29-2022 Progress note Author Nathaniel Castillo [facility] June 11, 2022 4:24pm Note Date/Time June 11, 2022 12:40pm [facility] [address] [place] [address] Hospitalist Progress Note Signed Patient: Abdirahman Gomez MR#: [id number] : 1940 Acct:[id number] Age/Sex: 81 / F Adm Date: 2 Loc: Room: [address] [place] [address] Type: ADM IN Attending Dr: Nathaniel Castillo [...] of care and confirmed it with the resident/student/DUST MILL OPERATOR. Patient resting in bed comfortably. Denies chest [...] nerves grossly intact, full strength left hand well driller helper which is improved upon yesterday's exam, full [...] signed by DO RYAN Juarez> 06/11/22 1240 [facility] Work Phone: 1(239) 400-524012-29-2022 Progress note Author Paramjit Pride [facility] June 11, 2022 9:45am Note Date/Time June 11, 2022 9:46am [facility] [address] [place] [address] Cardiology Progress Note Signed Patient: Abdirahman Gomez MR#: [id number] : 1940 Acct:[id number] Age/Sex: 81 / F Adm Date: 2 Loc: Room: [address] [place] [address] Type: ADM IN Attending Dr: Nathaniel Castillo [...] % (Auto) 65.1 Lymph % (Auto) 24.1 [place] % (Auto) 9.1 Eos % (Auto) 1.2 Baso % (Auto) 0.5 Nucleat RBC Rel Count 0.1 Neut # (Auto) 7.4 Lymph # (Auto) 2.8 [place] # (Auto) 1.0 H Eos # (Auto) [...] (min): 20 Documented By: Paramjit Pride MD 06/11/2269 Signed By: <Electronically signed by Paramjit Pride MD> 06/11/22 5819 [facility] Work Phone: 1(298) 517-924512-28-2022 Progress note Author Paramjit Tann [facility] June 10, 2022 6:21pm Note Date/Time June 10, 2022 12:12pm [facility] [address] [place] [address] Cardiology Progress Note Signed with Addenda Patient: Abdirahman Gomez MR#: [id number] : 1940 Acct:[id number] Age/Sex: 81 / F Adm Date: 2 Loc: Room: [address] [place] [address] Type: ADM IN Attending Dr: Nathaniel Castillo [...] EKG. The patient's troponin peaked initially in [facility] emergency department at 9000and is now come [...] H* Echocardiogram Signed Patient: Abdirahman Gomez MR#: [id number] : 1940 Acct:[id number] Age/Sex: 81 / F ADM Date: 06/09/22 Loc: Room:? 3K5949-4 Type:?ADM IN Attending Dr: Nathaniel Castillo MD [...] 30 Documented By: Paramjit Pride MD 06/10/22 1150 Signed By: <Electronically signed by Paramjit Pride MD> 06/10/22 1220 [facility] Work Phone: 1(901) 414-213112-28-2022 Progress note Author Nathaniel Castillo [facility] June 10, 2022 1:35pm Note Date/Time June 10, 2022 1:31pm [facility] [address] [place] [address] Progress Note Signed Patient: Abdirahman Gomez MR#: [id number] : 1940 Acct:[id number] Age/Sex: 81 / F Adm Date: 2 Loc: Room: [address] [place] [address] Type: ADM IN Attending Dr: Nathaniel Castillo [...] abnormalities, but upon review from a different bird sitter, it was noted that she has akinesis and thinning of the basal inferior wall of LV suggestive of a prior PR. #2 atrial fibrillation. Patient had a small [...] <Electronically signed by Nathaniel Castillo MD> 06/10/22 7013 [facility] Work Phone: 1(758) 767-302012-27-2022 History and physical note Author Chema Milner [facility] June 09, 2022 8:18pm Note Date/Time June 09, 2022 4:14am [facility] [address] [place] [address] Hospitalist H&P Signed Patient: Abdirahman Gomez MR#: [id number] : 1940 Acct:[id number] Age/Sex: 81 / F Adm Date: 2 Loc: Room: [address] [place] [address] Type: ADM IN Attending Dr: Nathaniel Castillo MD Copies to: MD Chema Pham MD Douglas M Hoy, MD Samantha Mason, DO, RES~ HPI DATE OF EXAMINATION: 06/09/22 CHIEF COMPLAINT: Weakness HISTORY OF PRESENT ILLNESS: Patient is an 81-year-old female that is a transfer from [facility] due to elevated troponins. Past medical history includes hypertension, hx CABG, presence of pacemaker, and paroxysmal atrial fibrillation. Patient had originally presented to the emergency room at [facility] due to generalized weakness that started several [...] negative unless noted below or [facility] Vacc[facility] for [facility]-19?: Yes Medical History A-fib [...] with Dr. Morton while patient was at [facility]. It is not felt that patient is [...] plan of care and confirmed the nurse practitioners/residents/internal audit consultant written note. Patient is a 81-year-old lady history of CAD status post CABG, hypertension, A. fib, presence of pacemaker presented to [facility] due to weakness and bloody stools. Patient has history of diverticulosis. Hemoglobin 13.5. Incidentally troponins were significantly elevated but patient did not have any cardiac complaints. EKG with no acute ischemic changes. EKG reviewed by bird sitter, not felt to be an acute ischemic event and recommended transfer to [facility] for further evaluation and management. Patient [...] <Electronically signed by Chema Milner MD> 06/09/222017 [facility] Work Phone: 1(679) 637-756512-27-2022 Consult note Author Paramjit Pride [facility] June 09, 2022 3:21pm Note Date/Time June 09, 2022 3:16pm [facility] [address] [place] [address] Cardiology Consult Note Signed Patient: Abdirahman Gomez MR#: [id number] : 1940 Acct:[id number] Age/Sex: 81 / F Adm Date: 2 Loc: Room: [address] [place] [address] Type: ADM IN Attending Dr: Nathaniel Castillo [...] CAB x3 done approximately 30years ago in [place] who was transferred to our facility from [facility] 2days ago after presenting complaining of [...] was activated. The patient was taken to [facility] emergency department for evaluation. In the ER at [facility] ER EKG was suspicious for ST segment [...] was anticoagulated and she was sent to [facility] for furtherevaluation. Since being here [facility] patient has had a mild increase [...] x10E3/uL Lymph # (Auto) 2.3 (1.00-4.8) x10E3/uL [place] # (Auto) 1.3 H (0.0-0.8) x10E3/uL Eos [...] AV and intraventricular conduction: 1 AV block PR, pacemaker, normal Myocardial infarction: inferior PR (old age indeterminate) Normal tracing: no change [...] discharge she can follow-up with her primary bird sitter in [facility]. Documented By: Paramjit Pride MD 06/09/22 1508 Signed By: <Electronically signed by Paramjit Pride MD> 06/09/22 9211 [facility] Work Phone: 1(438) 716-890612-27-2022 Progress note Author Nathaniel Castillo [facility] June 09, 2022 3:06pm Note Date/Time June 09, 2022 1:59pm [facility] [address] [place] [address] Hospitalist Progress Note Signed Patient: Abdirahman Gomez MR#: [id number] : 1940 Acct:[id number] Age/Sex: 81 / F Adm Date: 12/27/2 2 Loc: Room: 8C3020-2 Type: ADM IN Attending Dr: Nathaniel Castillo [...] of care and confirmed it with the resident/student/DUST MILL OPERATOR. Patient resting in bed comfortably. Denies chest [...] out of 5 strength on left hand well driller helper, full strength with flexion and extension of [...] and examination Only has decreased strength in well driller helper on the left upon my exam Denies [...] signed by Nathaniel Castillo MD> 06/09/22 1506 [facility] Work Phone: 1([phone]) [phone] NoteMR#: [id number] I [facility] Pt. Name: Abdirahman Gomez Admitted: 11/22/2021 [...] an 81-year-old female who presented to [facility] with chief complaint of symptomatic [...] Mcfadden PA-C Date Trans: 11/26/2021 06:47 A/daniel [id number] cc: Irish Faustin M.D. [address] [place] [address] Diagnosis Onset Date Resolution Status A-fib acute Abnormal ECG acute Constipation acute Diverticulosis acute Elevated troponin acute Embolic stroke acute Hypertension acute Pacemaker acute Paroxysmal atrial fibrillation acute Upper extremity weakness acu te [facility] Work Phone: Evaluation note* Diagnosis Onset [...] acute Pacemaker acute Paroxysmal atrial fibrillation acute [facility] Work Phone: Hospital Discharge instructions Additional [...] ask your primary care provider to obtain [facility] records entirely to follow up on all of the abnormal physical, laboratory, and imaging findings that I have not addressed. Please return back to the emergency room or seek medical attention if your symptoms worsen or return. Discharging you from [facility] does not mean that your medical care ends here and now. You may still need additional monitoring, work up, investigation, and treatment plan to be handled from this point on by out patient providers including your primary care provider and specialists. For any medication question, please contact your retail pharmacist or your primary care provider. Thank you.[facility] Work Phone: Summary Purpose Family History [...] and content) DATE CREATED AUTHOR 12/03/2021 [facility] DATE CREATED AUTHOR AUTHOR'S ORGANIZ ATION 06/16/2022 [facility] DATE CREATED AUTHOR AUTHOR'S ORGANIZ ATION 07/18/2022 [facility] DATE CREATED AUTHOR AUTHOR'S ORGANIZ ATION 08/03/2022 [facility] DATE CREATED AUTHOR AUTHOR'S ORGANIZ ATION 06/30/2024 [facility] Care Teams (unrecognized sec tion and content) [...] Dominguez MD Other Provider Active Devora J Sterrett , DUST MILL OPERATOR-C Other Provider Active Ga Kwong MD Other Provider Active Maurilio Banks MD Other Provider Active Chema Milner MD Other Provider Active Herminia Andrew , DO Other Provider Active Johnny Benson , DO Other Provider Active Rober Perez , DO Other Provider Active Brandi Cifuentes VENEER TAPING MACHINE OFFBEARER Other Provider Active Devante Lafleur , DO [...] BE BASED ON THE PRIMARY CLINICAL RECORDS. [email or web address] [facility]. provides no warranty or guarantee of the accuracy or completeness of information in this document.
--- NOTE | 2024-07-13 18:20 | P.HP_ITS ---
HPI H&P: HPI History of Present Illness Chief complaint: PNEUMONIA LEUKOCYTOSIS Narrative: Patient well-known to me from the office, presented to the emergency room with increasing cough and shortness of breath, in the emergency room found to have acute bilateral lower lobe pneumonia, significant leukocytosis and respiratory distress. With the severity of her respiratory distress although not hypoxic she was admitted for workup and treatment of same Opioid HPI Opioid Management Most Recent Pain and Opioid Data: Last Pain Scale 3 02/02/23 02:00 02/02/23 Last Pain Intensity 0 02/01/23 10:40 02/01/23 Last Pain Assessment 07/13/24 19:00 Last ORT Total Score 0 07/13/24 17:33 07/13/24 Last ORT Risk Category Low Risk 07/13/24 17:33 07/13/24 PFSH PFS Medical History Sepsis ?A41.9 - Sepsis, unspecified organism (ICD-10) CAD (coronary artery disease) ?I25.10 - Atherosclerotic heart disease of [place] coronary artery without angina pectoris (ICD-10) HTN (hypertension) ?I10 - Essential (primary) hypertension (ICD-10) Hyponatremia ?E87.1 - Hypo-osmolality and hyponatremia (ICD-10) (HFpEF) heart failure with preserved ejection fraction ?I50.30 - Unspecified diastolic (congestive) heart failure (ICD-10) H/O stroke without residual deficits ?Z86.73 - Personal history of transient ischemic attack (TIA), and cerebral infarction without residual deficits (ICD-10) Acute respiratory failure with hypoxia ?J96.01 - Acute respiratory failure with hypoxia (ICD-10) MRSA (methicillin resistant Staphylococcus aureus) ?A49.02 - Methicillin resistant Staphylococcus aureus infection, unspecified site (ICD-10) CHF (congestive heart failure) ?I50.9 - Heart failure, unspecified (ICD-10) Pneumonia ?J18.9 - Pneumonia, unspecified organism (ICD-10) Hypoxemia ?R09.02 - Hypoxemia (ICD-10) Surgical History History of hysterectomy ?Z90.710 - Acquired absence of both cervix and uterus (ICD-10) S/P triple vessel bypass ?Z95.1 - Presence of aortocoronary bypass graft (ICD-10) History of open heart surgery ?Z98.890 - Other specified postprocedural states (ICD-10) Family History Mother Family history of CHF (congestive heart failure) Family history of COPD (chronic obstructive pulmonary disease) Other Family history of cancer Family history of diabetes mellitus Family history of hypertension Family history of myocardial infarction Social History (Updated 07/13/24 @ 17:32 by Kanwal Thompson) Within the past year, how often did you have a drink containing alcohol: never Within the past year, how often did you have six or more drinks on one occasion: never Score interpretation: A score less than 3 is consistent with normal alcohol consumption. Smoking status: Never smoker Non-prescribed substance use: denies use Previous occupational history: retired Highest level of school completed/degree received: 10th grade Are you now , , , , never or living with a partner: In a typical week, how many times do you talk on the telephone with family, friends, or neighbors: 3 or more times per week How often do you get together with friends or relatives: 3 or more times per week How often do you attend restorationism or scientology services: never Do you belong to any clubs or organizations such as restorationism groups unions, fraternal or athletic groups, or school groups: no Total score: 1 Score interpretation: A score of less than or equal to 1 indicates the most socially isolated. Little interest or pleasure in doing things: not at all Feeling down, depressed, or hopeless: not at all Feel stressed/tense/nervous/anxious/difficulty sleeping: not at all Do you think of yourself as: straight/heterosexual Gender Identity: female Meds Home Medications and Allergies Home Medications ?Medication ?Instructions ?Recorded ?Confirmed ?Type amlodipine 10 mg tablet 10 mg PO DAILY 02/01/23 07/13/24 History aspirin 81 mg capsule 81 mg PO DAILY 02/01/23 07/13/24 History carvedilol 12.5 mg tablet 12.5 mg PO Q12H 02/01/23 07/13/24 History hydrocodone 5 mg-acetaminophen 325 1 tab PO Q12H 02/01/23 07/13/24 History mg tablet lorazepam 1 mg tablet 1 mg PO Q12H 02/01/23 07/13/24 History montelukast 10 mg tablet 10 mg PO DAILY 02/01/23 07/13/24 History omeprazole 40 mg capsule,delayed 40 mg PO BID 02/01/23 07/13/24 History release polyethylene glycol 3350 17 17 g PO DAILY PRN constipation 02/01/23 07/13/24 History gram/dose oral powder (ClearLax) potassium chloride 20 mEq 20 meq PO DAILY 02/01/23 07/13/24 History tablet,extended release(part/cryst) (Klor-Con M) pramipexole 0.5 mg tablet 0.5 mg PO QPM 02/01/23 07/13/24 History rosuvastatin 5 mg tablet 5 mg PO QPM 02/01/23 07/13/24 History sennosides 8.6 mg tablet (senna) 17.2 mg PO BID Constipation 02/01/23 07/13/24 History tizanidine 4 mg tablet 8 mg PO QPM 02/01/23 07/13/24 History valsartan 40 mg tablet 40 mg PO DAILY 02/01/23 07/13/24 History apixaban 2.5 mg tablet (Eliquis) 2.5 mg PO BID #60 tabs 02/03/23 07/13/24 Rx furosemide 20 mg tablet (Lasix) 20 mg PO DAILY #30 tabs 02/03/23 07/13/24 Rx isosorbide mononitrate 30 mg 30 mg PO QD #30 tabs 02/03/23 07/13/24 Rx tablet,extended release 24 hr ascorbic acid (vitamin C) 1,000 mg 1 g PO DAILY 07/13/24 07/13/24 History tablet (Vitamin C) biotin 10,000 mcg capsule 1 mcg PO DAILY 07/13/24 07/13/24 History cholecalciferol (vitamin D3) 125 5,000 unit PO DAILY 07/13/24 07/13/24 History mcg (5,000 unit) tablet (Vitamin D3) magnesium 250 mg tablet 500 mg PO DAILY 07/13/24 07/13/24 History multivitamin 1 tab PO DAILY 07/13/24 07/13/24 History omega 5-ppj-mij-fish oil 1,200 mg 1 cap PO DAILY 07/13/24 07/13/24 History (144 mg-216 mg) capsule (Fish Oil) Allergies Allergy/AdvReac Type Severity Reaction Status Date / Time amitriptyline Allergy Severe Unknown Verified 07/13/24 13:50 ciprofloxacin (From Cipro) Allergy Unknown Unknown Verified 07/13/24 13:50 paper tape Allergy Severe Unknown Uncoded 07/13/24 13:50 Exam Constitutional Vital Signs, click to edit/add: Last Vital Signs Temp 97.5 F L 07/13/24 19:36 Pulse 84 07/13/24 19:36 Resp 18 07/13/24 19:36 BP 141/71 07/13/24 19:36 Pulse Ox 92 L 07/13/24 19:36 O2 Del Method Room Air 07/13/24 19:36 Documenting provider has reviewed patient's vital signs: yes Common normals: no apparent distress Respiratory Common normals: normal respiratory effort Auscultation: rhonchi Cardio Common normals: regular rate and regular rhythm GI Common normals: Normal to inspection, nondistended, normoactive bowel sounds present Neuro Common normals: CN's II-XII intact bilaterally; does not move all extremities (Patient with baseline contractures from cerebral palsy) Results Labs Labs: Short CBC 07/13/24 Range/Units 13:58 WBC 23.2 H (4.0-11.0) 10^3/uL Hgb 13.9 (12.0-16.0) g/dL Hct 41.6 (36.0-48.0) % Plt Count 294 (150-450) 10^3/uL BMP 07/13/24 13:58 Sodium 136 Potassium 4.8 Chloride 99 Carbon Dioxide 23.6 BUN 18.0 Creatinine 1.06 H Glucose 110 H Calcium 9.1 Liver Function 07/13/24 Range/Units 13:58 Total Bilirubin 0.6 (0.2-1.0) mg/dL AST 39 H (15-37) U/L ALT 30 (14-59) U/L Alkaline Phosphatase 77 (46-116) U/L Albumin 3.2 L (3.4-5.0) g/dL Urine 07/13/24 Range/Units 15:11 Urine Color Yellow (YELLOW) Urine Clarity Clear (CLEAR) Urine pH 6.0 (5.0-9.0) Ur Specific [place] 1.010 (1.005-1.025) Urine Protein Negative (NEG/TRACE) mg/dL Urine Glucose (UA) Negative (NEGATIVE) mg/dL ABG ABG results: 07/13/24 13:58 VBG pH 7.467 H VBG pCO2 31.5 L Assessment and Plan Assessment and Plan (1) Leukocytosis: (2) Shortness of breath: (3) Weakness: Plan RespiratoryAdmission findings: Distress, leukocytosis secondary to bilateral lower lobe pneumonia, mild dehydration Acute bilateral lower lobe pneumonia with significant respiratory distress causing acute exacerbation of asthma-aerosol treatments, IV antibiotics, try to obtain sputum culture, blood cultures pending Mild elevation in creatinine-likely to mild dehydration, monitor daily Atrial fibrillation-rate currently controlled Hypertension-continue with home medications Generalized anxiety disorder-continue with home medications GERD-continue home medications Cerebral palsy-continue with home medications Restless leg syndrome-continue with home medication Hypercholesterolemia continue with home medications Admission status: Patient seen and evaluated with bilateral lower lobe pneumonia, not hypoxic currently, with that, medically necessary treatment may only span 1 midnight, maintain observation status. If patient's condition does not improve, medically necessary treatment will then span 2 midnights and she will be changed to inpatient status
[2024-07-13] MEDS: CARVEDILOL 12.5 MG TABLET PO (21:47)
[2024-07-13] MEDS: OMEPRAZOLE 40 MG CAPSULE.DR PO (21:47)
[2024-07-13] MEDS: TIZANIDINE HCL 4 MG TABLET 8 MG PO (21:47)
[2024-07-13] MEDS: SENNOSIDES 8.6 MG TABLET 17.2 MG PO (21:47)
[2024-07-13] MEDS: ISOSORBIDE MONONITRATE 30 MG TAB.ER.24H PO (21:47)
[2024-07-13] MEDS: LORAZEPAM 1 MG TABLET PO (21:47)
[2024-07-13] MEDS: HYDROCODONE/ACET 5-325 MG TABLET 1 TAB PO (21:47)
[2024-07-13] MEDS: PRAMIPEXOLE 1 MG TABLET 0.5 MG PO (21:48)
[2024-07-13] MEDS: APIXABAN 5 MG TABLET 2.5 MG PO (21:48)
[2024-07-13] MEDS: IPRATROPIUM/ALBUTEROL SULFATE 3 ML AMPUL.NEB IH (23:26)
[2024-07-14 03:35] VITALS: BP 113/65; PULSE 70; TEMP 36.4; O2SAT 93
[2024-07-14 04:26] VITALS: PULSE 75; O2SAT 95
[2024-07-14] MEDS: IPRATROPIUM/ALBUTEROL SULFATE 3 ML AMPUL.NEB IH ×2 (04:26→10:58)
[2024-07-14 05:55] LABS: Basophils Percent Auto 0.4 % (0.2-2.0); Eosinophils Absolute Auto 0.2 10^3/uL (0.0-0.7); Eosinophils Percent Auto 1.6 % (0.9-7.0); Hematocrit 36.1 % (36.0-48.0); Immature Granulocytes Pct Auto 0.9 % (0.0-0.5); Lymphocytes Absolute Auto 2.7 10^3/uL (1.2-3.8); Lymphocytes Percent Auto 24.6 % (20.5-60.0); Mean Corpuscular HGB Conc 33.2 g/dL (29.9-35.2); Mean Corpuscular Hemoglobin 34.6 pg (26.7-34.0); Mean Platelet Volume 9.2 fL (9.5-13.5); Monocytes Absolute Auto 0.9 10^3/uL (0.3-0.8); Monocytes Percent Auto 7.9 % (1.7-12.0); Neutrophils Absolute Auto 7.2 10^3/uL (1.4-6.5); Neutrophils Percent Auto 64.6 % (43.0-75.0); Platelet Count 244 10^3/uL (150-450); Red Blood Count 3.47 10^6/uL (4.20-5.40); Red Cell Distribution Width 13.2 % (11.0-15.0); White Blood Count 11.1 10^3/uL (4.0-11.0)
[2024-07-14 06:20] LABS: Alanine Aminotransferase 19 U/L (14-59); Albumin Globulin Ratio 0.7; Albumin Level 2.7 g/dL (3.4-5.0); Alkaline Phosphatase 67 U/L (46-116); Anion Gap 14.2; Aspartate Amino Transferase 22 U/L (15-37); BUN Creatinine Ratio 22.2; Bilirubin Direct 0.1 mg/dL (0.0-0.2); Bilirubin Total 0.4 mg/dL (0.2-1.0); Calcium 8.8 mg/dL (8.5-10.1); Carbon Dioxide 22.7 mmol/L (21.0-32.0); Chloride 104 mmol/L (98-107); Estimated GFR (African America >60 (>=60 mL/min/1.73m^2); Estimated GFR (Non-African Ame >60 (>=60 mL/min/1.73m^2); Globulin 3.9 g/dL; Glucose 110 mg/dL (74-106); Magnesium 2.1 mg/dL (1.8-2.4); Potassium 3.9 mmol/L (3.5-5.1); Sodium 137 mmol/L (136-145); Total Protein 6.6 g/dL (6.4-8.2)
[2024-07-14] MEDS: HYDROCODONE/ACET 5-325 MG TABLET 1 TAB PO (07:00)
--- NOTE | 2024-07-14 07:19 | P.DS_ITS ---
DS: Providers Provider Date of admission: 07/13/24 17:17 Primary care physician: Ganesh Samuel MD Consults: 07/13/24 18:51 Occupational Therapy Eval and Treat Routine Reason for consultation: Only if needed for Rehab Has provider been notified: No Physical Therapy Eval and Treat Routine Reason for consultation: Eval and Treat Has provider been notified: No DS: Diagnosis Discharge Diagnosis (1) Leukocytosis: (2) Shortness of breath: (3) Weakness: Plan RespiratoryAdmission findings: Distress, leukocytosis secondary to bilateral lower lobe pneumonia, mild dehydration Acute bilateral lower lobe pneumonia with significant respiratory distress causi ng acute exacerbation of asthma-aerosol treatments, IV antibiotics, try to obtain sputum culture, blood cultures pending Mild elevation in creatinine-likely to mild dehydration, monitor daily Atrial fibrillation-rate currently controlled Hypertension-continue with home medications Generalized anxiety disorder-continue with home medications GERD-continue home medications Cerebral palsy-continue with home medications Restless leg syndrome-continue with home medication Hypercholesterolemia continue with home medications Admission status: Patient seen and evaluated with bilateral lower lobe pneumonia, not hypoxic currently, with that, medically necessary treatment may only span 1 midnight, maintain observation status. If patient's condition does not improve, medically necessary treatment will then span 2 midnights and she will be changed to inpatient status DS: Summary Hospital Course Hospital Course: Patient presented hospitalist increasing cough and shortness of breath, found to have bilateral lower lobe pneumonia. No hypoxia though overnight, concern was that it would progress to that, so she was placed in observation and she has significant leukocytosis on admission over 20,000 that improved the following day, she does appear to have possible acute UTI as well which has been chronic for her in the past, but with her improvement and no hypoxia overnight she will be discharged to home in improving condition. Medications see this. Follow-up with me in the office in 3 days. Status at Discharge Overall status at discharge: patient is not back to baseline Time Spent with Patient Time attestation: Total time spent providing and/or coordinating discharge services: Time spent: greater than 30 minutes Exam Constitutional Vital Signs, click to edit/add: Last Vital Signs Temp 97.5 F L 07/14/24 03:35 Pulse 75 07/14/24 04:26 Resp 16 07/14/24 04:26 BP 113/65 07/14/24 03:35 Pulse Ox 95 07/14/24 04:26 O2 Del Method Room Air 07/14/24 04:26 Documenting provider has reviewed patient's vital signs: yes Common normals: no apparent distress Respiratory Common normals: normal respiratory effort Auscultation: rhonchi (Much improved) Cardio Common normals: regular rate and regular rhythm GI Common normals: Normal to inspection, nondistended, normoactive bowel sounds present Neuro Common normals: CN's II-XII intact bilaterally; does not move all extremities (Patient with baseline contractures from cerebral palsy) DS: Data Data Completed and Pending Labs on day of discharge: Labs from last 24 hours 07/14/24 07/13/24 07/13/24 05:40 15:11 13:58 WBC 11.1 H 23.2 H RBC 3.47 L 3.98 L Hgb 12.0 13.9 Hct 36.1 41.6 MCV 104.0 H 104.5 H MCH 34.6 H 34.9 H MCHC 33.2 33.4 RDW 13.2 13.0 Plt Count 244 294 MPV 9.2 L 9.2 L Neut % (Auto) 64.6 82.2 H Lymph % (Auto) 24.6 10.7 L [place] % (Auto) 7.9 5.2 Eos % (Auto) 1.6 0.7 L Baso % (Auto) 0.4 0.3 Neut # (Auto) 7.2 H 19.1 H Lymph # (Auto) 2.7 2.5 [place] # (Auto) 0.9 H 1.2 H Eos # (Auto) 0.2 0.2 Baso # (Auto) 0.0 0.1 Abs Immat Gran (auto) 0.10 H 0.22 H Imm/Tot Granulo (auto) 0.9 H 0.9 H PT 11.2 INR 1.06 VBG pH 7.467 H VBG pCO2 31.5 L Sodium 137 136 Potassium 3.9 4.8 Chloride 104 99 Carbon Dioxide 22.7 23.6 Anion Gap 14.2 18.2 BUN 18.0 18.0 Creatinine 0.81 1.06 H Est GFR ( Amer) >60 60 Est GFR (Non-Af Amer) >60 50 L BUN/Creatinine Ratio 22.2 17.0 Glucose 110 H 110 H Lactate 1.8 Calcium 8.8 9.1 Magnesium 2.1 Total Bilirubin 0.4 0.6 Direct Bilirubin 0.1 AST 22 39 H ALT 19 30 Alkaline Phosphatase 67 77 Troponin I High Sens 9.5 NT-Pro-B Natriuret Pep 899.0 1057.0 Total Protein 6.6 7.6 Albumin 2.7 L 3.2 L Globulin 3.9 4.4 Albumin/Globulin Ratio 0.7 0.7 Urine Color Yellow Urine Clarity Clear Urine pH 6.0 Ur Specific [place] 1.010 Urine Protein Negative Urine Glucose (UA) Negative Urine Ketones Negative Urine Occult Blood Trace-i Urine Nitrite Negative Urine Bilirubin Negative Urine Urobilinogen 0.2 Ur Leukocyte Esterase Small A Urine RBC 0-2 Urine WBC 5-10 A Ur Squamous Epith Cells Many A Ur Transition Epith Cell Rare A Urine Crystals None seen Urine Bacteria Small A Urine Casts Seen A Hyaline Casts Rare Urine Mucus Trace A Ur Culture Indicated? Yes Influenza Type A Ag Influenza Type B Ag SARS-CoV-2 Ag (CV2AG) 07/13/24 13:55 WBC RBC Hgb Hct MCV MCH MCHC RDW Plt Count MPV Neut % (Auto) Lymph % (Auto) [place] % (Auto) Eos % (Auto) Baso % (Auto) Neut # (Auto) Lymph # (Auto) [place] # (Auto) Eos # (Auto) Baso # (Auto) Abs Immat Gran (auto) Imm/Tot Granulo (auto) PT INR VBG pH VBG pCO2 Sodium Potassium Chloride Carbon Dioxide Anion Gap BUN Creatinine Est GFR ( Amer) Est GFR (Non-Af Amer) BUN/Creatinine Ratio Glucose Lactate Calcium Magnesium Total Bilirubin Direct Bilirubin AST ALT Alkaline Phosphatase Troponin I High Sens NT-Pro-B Natriuret Pep Total Protein Albumin Globulin Albumin/Globulin Ratio Urine Color Urine Clarity Urine pH Ur Specific [place] Urine Protein Urine Glucose (UA) Urine Ketones Urine Occult Blood Urine Nitrite Urine Bilirubin Urine Urobilinogen Ur Leukocyte Esterase Urine RBC Urine WBC Ur Squamous Epith Cells Ur Transition Epith Cell Urine Crystals Urine Bacteria Urine Casts Hyaline Casts Urine Mucus Ur Culture Indicated? Influenza Type A Ag Negative Influenza Type B Ag Negative SARS-CoV-2 Ag (CV2AG) Negative Discharge Plan Discharge Disposition: Home, Self-Care Condition: Good Discharge Medications: New azithromycin 500 mg tablet 500 mg PO DAILY 2 Days Qty: 2 0RF Rx Instructions: start on day 2 of therapy Continued multivitamin Tablet 1 tab PO DAILY ascorbic acid (vitamin C) [Vitamin C] 1,000 mg tablet 1 g PO DAILY cholecalciferol (vitamin D3) [Vitamin D3] 125 mcg (5,000 unit) tablet 5,000 unit PO DAILY omega 3-[id number]-fish oil [Fish Oil] 1,200 (144-216) mg capsule 1 cap PO DAILY magnesium 250 mg tablet 500 mg PO DAILY biotin 10,000 mcg capsule 1 mcg PO DAILY amlodipine 10 mg tablet 10 mg PO DAILY carvedilol 12.5 mg tablet 12.5 mg PO Q12H hydrocodone-acetaminophen 5-325 mg tablet 1 tab PO Q12H lorazepam 1 mg tablet 1 mg PO Q12H Patient Comments: 1/2-1 tablet twice daily montelukast 10 mg tablet 10 mg PO DAILY omeprazole 40 mg capsule,delayed release(DR/EC) 40 mg PO BID polyethylene glycol 3350 [ClearLax] 17 gram/dose powder 17 g PO DAILY PRN (Reason: constipation) potassium chloride [Klor-Con M20] 20 mEq tablet,ER particles/crystals 20 meq PO DAILY pramipexole 0.5 mg tablet 0.5 mg PO QPM rosuvastatin 5 mg tablet 5 mg PO QPM tizanidine 4 mg tablet 8 mg PO QPM valsartan 40 mg tablet 40 mg PO DAILY aspirin 81 mg capsule 81 mg PO DAILY sennosides [senna] 8.6 mg tablet 17.2 mg PO BID Rx Instructions: 2 tabs BID isosorbide mononitrate 30 mg Tablet Extended Release 24 Hr 30 mg PO QD Qty: 30 11RF Eliquis 2.5 mg tablet 2.5 mg PO BID Qty: 60 11RF furosemide [Lasix] 20 mg tablet 20 mg PO DAILY Qty: 30 11RF Activity: ambulate only with your walker and resume usual activities as tolerated Diet: advance to your usual diet Print Language: [place] Patient Instructions: Leukocytosis (DC), Pneumonia (DC) Forms: Portal Instructions Follow Up Appointments: Jul.20 @ 9:45am with Dr. Samuel [phone] Discharge Date/Time: 07/14/24 12:06
[2024-07-14 07:48] VITALS: BP 141/76; PULSE 76; TEMP 36.7; O2SAT 95
--- NOTE | 2024-07-14 09:00 | CM.NOTE ---
Rounds made with Dr. Samuel, discussed with pt discharge to home today. Pt is independent at home and able to perform all ADL's. Pt does not use any assistive devices. No discharge needs identified. Pt does have OT and PT ordered prior to discharge.
--- NOTE | 2024-07-14 09:02 | SWNOTE1 ---
SW reviewed PT note and pt did well, no services recommended at this time. SW to follow as needed.
--- OUTSIDE RECORDS SUMMARY | 2024-07-14 09:15 | XMS_ITS | CCD ---
Author Organization [facility] CliniSyva Care Team Providers Care Clinical Advisor Name Role Phone UNKNOWN, PHYSICIAN Referring Unavailable [...] DR JOSEPH Palacios Consulting Unavailable TERESA, DR JSOEPH Palacios Admitting Unavailable TERESA, DR JOSEPH Palacios [...] Admit Provider MD Stiven Zaman Attending Provider [phone] PARISA Santillan Other Provider Unavailable PARISA Calle [...] Adhesive agent Drug allergy (disorder) 9 [facility] (3 sources) Ciprofloxacin Drug Allergy 6 [facility] (5 sources) Codeine; Translations: [CODEINE] Drug Allergy 9 Itching [facility] (1 source) paper tape; Translations: [paper tape] Propensity to adverse reactions (disorder) 2 [facility] (1 source) Desonide Drug Allergy [facility] Rep[facility] (4 sources) Ciprofloxacin; Translations: [ciprofloxacin] Drug Allergy 2 Redness of Skin [facility] (1 source) Codeine Drug Allergy 2 [facility] Rep[facility] (1 source) Amitriptyline; Translations: [AMITRIPTYLINE] Drug Allergy 4 [facility] (1 source) rosuvastatin; Translations: [ROSUVASTATIN] Drug Allergy 5 [facility] (1 source) ADHESIVE TAPE-SILICONES; Translations: [ADHESIVE TAPE-SILICONES] Propensity to adverse reactions to drug (disorder) 5 [facility] Medications Current Medications Medication Drug [...] June 16, 2022 10:52am polyethylene glycol 3350 32305 mg powder for oral solution (3 sources) [...] Start: 06-14-2022 take 2 tablets by mo [facility] twice daily Sennosides (Senna Lax) 8.6 mg [...] (2 sources) Start: 06-09-2022 End: 06-16-2022 take 21679 ug by mouth once daily Biotin Discontinued 29918 MCG PO Daily June 09, 2022 12:00am June 16, 2022 10:52am Magnesium Chloride (2 sources) Start: 06-09-2022 End: 06-16-2022 take 64 mg by mouth once daily Magnesium Chloride Discontinued 64 MG PO Daily June 09, 2022 12:00am June 16, 2022 10:52am [place]-3 Fatty Acids-Vitamin E (Fish Oil) 1,000 mg Capsule (2 sources) Start: 06-09-2022 End: 06-16-2022 take 1 capsule by mouth once daily [place]-3 Fatty Acids-Vitamin E (Fish Oil) 1,000 mg [...] disease (3 sources) Atherosclerotic heart disease of [place] coronary artery without angina pectoris; 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] Onset: 3 Chronic [...] 3 Chronic Other aftercare (1 source) 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 therapy; Translations: [OTH ASSISTED CURRENT DRUG THERAPY] Onset: 3 Episodic Other aftercare (1 source) long term care pharmacist (current) use of aspirin; Translations: [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 TECHNICIAN CURRENT USE OF ASPIRIN] Onset: 3 Episodic [...] Range Facility Office Visiton 04-17-2024 Follow-up visit [id number] Abdirahman Gomez 1940 F Date Provider Department Center 04/17/2024 Monico-SAMANTHA LAMB BRIA Saucedo [facility] Family History Problem Relation Age of Onset Aneurysm Mother Alcohol abuse Father Family Status - Relation Status Age at Mother Father Level of Service:03017 [place] OFFICE/OUTPATIENT ESTABLISHED LOW MDM 20 MIN Normal [facility] Basic Metabolic Panelon 06-14 Anion gap [Moles/Vol] 16.1 mmol/L High 6.0-15.0 [facility] Comment on above: Performed By: #### C BC, BMP #### [facility] [address] [place] [address] [place] Calcium [Mass/Vol] 9.4 mg/dL Normal 8.2-10.2 [facility] Comment on above: Performed By: #### C BC, BMP #### [facility] [address] [place] [address] [place] Chloride [Moles/Vol] 102 mmol/L Normal 95-114 [facility] Comment on above: Performed By: #### C BC, BMP #### [facility] [address] [place] [address] [place] CO2 [Moles/Vol] 20.7 mmol/L Low 22.0-30.0 [facility] Comment on above: Performed By: #### C BC, BMP #### [facility] [address] Creatinine [Mass/Vol] 0.84 mg/dL Normal 0.44-1.03 [facility] Comment on above: Performed By: #### C BC, BMP #### [facility] [address] [place] [address] [place] Creatinine Clr Calc Pharmacy 47.21 [facility] Comment on above: Result Comment: PERF ORMED BY: [place] [address] PATHOLOGIST CLOUD AUTOMATION TESTER PILAR VILLARREAL M.D. Performed By: #### C BC, BMP #### [address] Estimated GFR ( Rose > 60 [facility] Comment on above: Result Comment: GFR estimated reference range: According to KDOQI guidelines, <60 ml/min/1.73m2 is sufficient to diagnose a patient with chronic kidney disease. Performed By: #### C BC, BMP #### [address] Estimated GFR (Non- Am > 60 [facility] Comment on above: Performed By: #### C BC, BMP #### [address] Glucose [Mass/Vol] 104 mg/dL High 70-100 [facility] Comment on above: Result Comment: [place] Glucose Reference Range is dependent on time and content of last meal. Glucose of more than 200 mg/dL in a nonstressed, ambulatory subject supports the diagnosis of Diabetes Mellitus. ADA recommended reference range Performed By: #### C BC, BMP #### [address] Potassium [Moles/Vol] 3.8 mmol/L Normal 3.5-5.1 [facility] Comment on above: Performed By: #### C BC, BMP #### [place] [address] [place] Sodium [Moles/Vol] 135 mmol/L Low 136-146 [facility] Comment on above: Performed By: #### C BC, BMP #### [facility] [address] Urea nitrogen [Mass/Vol] 10 mg/dL Normal 9-23 [facility] Comment on above: Performed By: #### C BC, BMP #### [facility] [address] [place] [address] [place] Basophils Auto (Bld) [#/Vol] Ordered By: Stiven Zaman on 06-23-2022 Basophils (Bld) [#/Vol] 0.1 10*3/uL 0.0-0.2 [facility] Basophils/100 WBC Auto (Bld) Ordered By: Stiven Zaman on 06-23-2022 Basophils/100 WBC (Bld) 0.8 % . F [facility] Complete Blood Count Auto Di ffon 06-23-2022 Basophils (Bld) [#/Vol] 0.1 10*3/uL Normal 0.0-0.2 [facility] Comment on above: Result Comment: PERF ORMED BY: [place] [address] PATHOLOGIST CLOUD AUTOMATION TESTER PILAR VILLARREAL M.D. Performed By: #### C BC, BMP #### [address] Basophils/100 WBC (Bld) 0.8 % Normal . F [facility] Comment on above: Performed By: #### C BC, BMP #### [facility] [address] [place] [address] [place] Eosinophils (Bld) [#/Vol] 0.3 10*3/uL Normal 0.0-0.45 [facility] Comment on above: Performed By: #### C BC, BMP #### [address] Eosinophils/100 WBC (Bld) 3.2 % Normal . [facility] Comment on above: Performed By: #### C BC, BMP #### [address] Erythrocyte distribution width (RBC) [Ratio] 13.3 % Normal 11.9-15.3 [facility] Comment on above: Performed By: #### C BC, BMP #### [address] Hematocrit (Bld) [Volume fraction] 38.3 % Normal 34.0-46.4 [facility] Comment on above: Performed By: #### C BC, BMP #### [address] Hemoglobin (Bld) [Mass/Vol] 12.8 g/dL Normal 11.8-15.4 [facility] Comment on above: Performed By: #### C BC, BMP #### [address] Lymphocytes (Bld) [#/Vol] 2.6 10*3/uL Normal 1.00-4.8 [facility] Comment on above: Performed By: #### C BC, BMP #### [address] Lymphocytes/100 WBC (Bld) 31.9 % Normal . [facility] Comment on above: Performed By: #### C BC, BMP #### [address] MCH (RBC) [Entitic mass] 34.1 pg Normal 24.7-34.3 [facility] Comment on above: Performed By: #### C BC, BMP #### [address] MCV (RBC) [Entitic vol] 102.2 fL High 80-100 [facility] Comment on above: Performed By: #### C BC, BMP #### [address] Mean Corpuscular HGB Conc 33.4 g/dL Normal 32.0-35.0 [facility] Comment on above: Performed By: #### C BC, BMP #### [address] Monocytes (Bld) [#/Vol] 0.7 10*3/uL Normal 0.0-0.8 [facility] Comment on above: Performed By: #### C BC, BMP #### [facility] [address] Monocytes/100 WBC (Bld) 8.4 % Normal . [facility] Comment on above: Performed By: #### C BC, BMP #### [facility] [address] Neutrophils (Bld) [#/Vol] 4.5 10*3/uL Normal 1.8-7.7 [facility] Comment on above: Performed By: #### C BC, BMP #### [address] Neutrophils/100 WBC (Bld) 55.7 % Normal . [facility] Comment on above: Performed By: #### C BC, BMP #### [address] NRBC% 0.1 /100{WBC} Normal 0-0.5 [facility] Comment on above: Performed By: #### C BC, BMP #### [address] Platelet mean volume (Bld) [Entitic vol] 8.0 fL Normal 6.3-10.7 [facility] Comment on above: Performed By: #### C BC, BMP #### [place] [address] [place] Platelets (Bld) [#/Vol] 272 10*3/uL Normal 150-450 [facility] Comment on above: Performed By: #### C BC, BMP #### [facility] [address] [place] [address] [place] RBC (Bld) [#/Vol] 3.75 10*6/uL Normal 3.60-5.00 [facility] Comment on above: Performed By: #### C BC, BMP #### [place] [address] [place] WBC (Bld) [#/Vol] 8.1 10*3/uL Normal 3.8-11.6 [facility] Comment on above: Performed By: #### C BC, BMP #### [facility] [address] [place] [address] [facility] Creatinine and Glomerular fi ltration rate.predicted panel (S/P/Bld)Ordered By: Stiven Zaman on 06-23-2022 Creatinine [Mass/Vol] 0.84 mg/dL 0.44-1.03 [facility] Eosinophils Auto (Bld) [#/Vo l]Ordered By: Stiven Zaman on 06-23-2022 Eosinophils (Bld) [#/Vol] 0.3 10*3/uL 0.0-0.45 [facility] Eosinophils/100 WBC Auto (Bl d)Ordered By: Stiven Zaman on 06-23-2022 Eosinophils/100 WBC (Bld) 3.2 % . [facility] Erythrocyte distribution wid th Auto (RBC) [Ratio]Ordered By: Stiven Zaman on 06-23-2022 Erythrocyte distribution width (RBC) [Ratio] 13.3 % 11.9-15.3 [facility] Estimated glomerular filtrat ion rate (GFR) non- AmericanOrdered By: Stiven Zaman on 06-23-2022 GFR/1.73 sq M.predicted among non-blacks MDRD (S/P/Bld) [Vol rate/Area] > 60 mL/Min [facility] Hematocrit Auto (Bld) [Volum e fraction]Ordered By: Stiven Zaman on 06-23-2022 Hematocrit (Bld) [Volume fraction] 38.3 % 34.0-46.4 [facility] Hemoglobin [Mass/volume] in BloodOrdered By: Stiven Zaman on 06-23-2022 Hemoglobin (Bld) [Mass/Vol] 12.8 g/dL 11.8-15.4 [facility] Leukocytes [#/volume] correc zoe for nucleated erythrocytes in Blood by Automated counOrdered By: Stiven Zaman on 06-23-2022 WBC corrected for nucl RBC Auto (Bld) [#/Vol] 8.1 10*3/uL 3.8-11.6 [facility] Lymphocytes Auto (Bld) [#/Vo l]Ordered By: Stiven Zaman on 06-23-2022 Lymphocytes (Bld) [#/Vol] 2.6 10*3/uL 1.00-4.8 [facility] Lymphocytes/100 WBC Auto (Bl d)Ordered By: Stiven Zaman on 06-23-2022 Lymphocytes/100 WBC (Bld) 31.9 % . [facility] MCH Auto (RBC) [Entitic mass ]Ordered By: Stiven Zaman on 06-23-2022 MCH (RBC) [Entitic mass] 34.1 pg 24.7-34.3 [facility] MCHC Auto (RBC) [Mass/Vol]Or dered By: Stiven Zaman on 06-23-2022 MCHC (RBC) [Mass/Vol] 33.4 g/dL 32.0-35.0 [facility] MCV Auto (RBC) [Entitic vol] Ordered By: Stiven Zaman on 06-23-2022 MCV (RBC) [Entitic vol] 102.2 fL 80-100 [facility] Monocytes Auto (Bld) [#/Vol] Ordered By: Stiven Zaman on 06-23-2022 Monocytes (Bld) [#/Vol] 0.7 10*3/uL 0.0-0.8 [facility] Monocytes/100 WBC Auto (Bld) Ordered By: Stiven Zaman on 06-23-2022 Monocytes/100 WBC (Bld) 8.4 % . F [facility] Neutrophils Auto (Bld) [#/Vo l]Ordered By: Stiven Zaman on 06-23-2022 Neutrophils (Bld) [#/Vol] 4.5 10*3/uL 1.8-7.7 [facility] Neutrophils/100 WBC Auto (Bl d)Ordered By: Stiven Zaman on 06-23-2022 Neutrophils/100 WBC (Bld) 55.7 % . [facility] No Panel InformationOrdered By: Stiven Zaman on 06-23-2022 Estimated GFR () > 60 mL/Min [facility] Comment on above: GFR estimated refere nce range: According to KDOQI guidelines, <60 ml/min/1.73m2 is sufficient to diagnose a patient with chronic kidney disease. Pharmacy Creatinine Clearance (Chem 47.21 [facility] Nucleated erythrocytes [Pres ence] in Blood by Automated countOrdered By: Stiven Zaman on 06-23-2022 Nucleated RBC Auto Ql (Bld) 0.1 /100{WBC} 0-0.5 [facility] Platelet mean volume Auto (B ld) [Entitic vol]Ordered By: Stiven Zaman on 06-23-2022 Platelet mean volume (Bld) [Entitic vol] 8.0 fL 6.3-10.7 [facility] Platelets Auto (Bld) [#/Vol] Ordered By: Stiven Zaman on 06-23-2022 Platelets (Bld) [#/Vol] 272 10*3/uL 150-450 [facility] RBC Auto (Bld) [#/Vol]Ordere d By: Stiven Zaman on 06-23-2022 RBC (Bld) [#/Vol] 3.75 10*6/uL 3.60-5.00 [facility] Serum or plasma anion gap de terminationOrdered By: Stiven Zaman on 06-23-2022 Anion gap [Moles/Vol] 16.1 mmol/L 6.0-15.0 [facility] Serum or plasma calcium jerrod urement (mass/volume)Ordered By: Stiven Zaman on 06-23-2022 Calcium [Mass/Vol] 9.4 mg/dL 8.2-10.2 [facility] Serum or plasma chloride salma surement (moles/volume)Ordered By: Stiven Zaman on 06-23-2022 Chloride [Moles/Vol] 102 mmol/L 95-114 [facility] Serum or plasma glucose jerrod urement (mass/volume)Ordered By: Stiven Zaman on 06-23-2022 Glucose [Mass/Vol] 104 mg/dL 70-100 [facility] Comment on above: ADA recommended refe rence rangeRandom Glucose Reference Range is dependent on time and content of last meal. Glucose of more than 200 mg/dL in a nonstressed, ambulatory subject supports the diagnosis of Diabetes Mellitus. Serum or plasma potassium me asurement (moles/volume)Ordered By: Stiven Zaman on 06-23-2022 Potassium [Moles/Vol] 3.8 mmol/L 3.5-5.1 [facility] Serum or plasma sodium measu rement (moles/volume)Ordered By: Stiven Zaman on 06-23-2022 Sodium [Moles/Vol] 135 mmol/L 136-146 [facility] Serum or plasma total carbon dioxide measurement (moles/volume)Ordered By: Stiven Zaman on 06-23-2022 CO2 [Moles/Vol] 20.7 mmol/L 22.0-30.0 [facility] Serum or plasma urea nitroge n measurement (mass/volume)Ordered By: Stiven Zaman on 06-23-2022 Urea nitrogen [Mass/Vol] 10 mg/dL 9-23 [facility] WBC Auto (Bld) [#/Vol]Ordere d By: Stiven Zaman on 06-23-2022 WBC (Bld) [#/Vol] 8.1 10*3/uL 3.8-11.6 [facility] Glucose Glucometer (BldC) [M ass/Vol]Ordered By: Stiven Zaman on 06-21-2022 Glucose [Mass/Vol] 108 mg/dL [facility] Comment on above: Random Glucose Refer ence Range is dependent on time and content of last meal. Glucose of more than 200 mg/dL in a nonstressed, ambulatory subject supports the diagnosis of Diabetes Mellitus. Glucose Poct Glucometerson 0 06-21-2022 Glucose [Mass/Vol] 108 mg/dL Normal [facility] Comment on above: Result Comment: [facility] [place] Glucose Reference Range is dependent on time and content of last meal. Glucose of more than 200 mg/dL in a nonstressed, ambulatory subject supports the diagnosis of Diabetes Mellitus. PERFORMED BY: [facility] [address] [place] [address] PATHOLOGIST CLOUD AUTOMATION TESTER PILAR VILLARREAL M.D. Performed By: #### G KIRA #### Point of Care testing , Glucose Poct Glucometerson 0 06-20-2022 Glucose [Mass/Vol] 93 mg/dL Normal [facility] Comment on above: Result Comment: [facility] [place] Glucose Reference Range is dependent on time and content of last meal. Glucose of more than 200 mg/dL in a nonstressed, ambulatory subject supports the diagnosis of Diabetes Mellitus. PERFORMED BY: [place] [address] PATHOLOGIST CLOUD AUTOMATION TESTER PILAR VILLARREAL M.D. Performed By: #### L IPID, A1C WTH eA #### [address] Glucose [Mass/Vol] 107 mg/dL Normal [facility] Comment on above: Result Comment: [place] om Glucose Reference Range is dependent on time and content of last meal. Glucose of more than 200 mg/dL in a nonstressed, ambulatory subject supports the diagnosis of Diabetes Mellitus. PERFORMED BY: [place] [address] PATHOLOGIST CLOUD AUTOMATION TESTER PILAR VILLARREAL M.D. Performed By: #### G LULS #### Point of Care testing , Glucose Poct Glucometerson 0 06-19-2022 Commemt1 [facility] Comment on above: Result Comment: Glu2 : WILL NOTIFY DR/RN Performed By: #### G LULS #### Point of Care testing , Commemt2 Cleaned Meter [facility] Comment on above: Result Comment: PERF ORMED BY: [place] [address] PATHOLOGIST CLOUD AUTOMATION TESTER PILAR VILLARREAL M.D. Performed By: #### G LULS #### Point of Care testing , Glucose [Mass/Vol] 118 mg/dL [facility] Comment on above: Result Comment: [place]en om Glucose Reference Range is dependent on time and content of last meal. Glucose of more than 200 mg/dL in a nonstressed, ambulatory subject supports the diagnosis of Diabetes Mellitus. Performed By: #### G LULS #### Point of Care testing , Glucose [Mass/Vol] 97 mg/dL [facility] Comment on above: Result Comment: [place] om Glucose Reference Range is dependent on time and content of last meal. Glucose of more than 200 mg/dL in a nonstressed, ambulatory subject supports the diagnosis of Diabetes Mellitus. PERFORMED BY: [place] [id number] PATHOLOGIST CLOUD AUTOMATION TESTER PILAR VILLARREAL M.D. Performed By: #### G LULS #### Point of Care testing , No Panel InformationOrdered By: Stiven Zaman on 06-19-2022 Bedside Glucose #2 Comment Cleaned meter [facility] Bedside Glucose Comment See comment [facility] Comment on above: Glu2: WILL NOTIFY DR /RN XR hip LT min 2V(w/wo pelvis )*on 06-19-2022 XR hip LT min 2V(w/wo pelvis)* [facility] [place] [address] [place] [address] XRay Report Signed Patient: Abdirahman Gomez MR#: [id number] : 1940 Acct:[id number] Age/Sex: 81 / F ADM Date: 06/16/22 Loc: Room: [address] [place] [address] Type: ADM IN Attending Dr: Stiven Zaman [...] Beasley Jr., D.OHuma06/19/2022 3:01 PM Dictation Location: [place] [address] Transcribed By: [facility] 06/19/22 1501 Dictated By: Stiven Beasley Jr, DO 06/19/22 1500 Signed By: 06/19/22 1501 Normal [facility] Glucose Poct Glucometerson 0 06-18-2022 Commemt1 Glu2: Cleaned Meter Normal [facility] Comment on above: Result Comment: PERF ORMED BY: [place] [address] PATHOLOGIST CLOUD AUTOMATION TESTER PILAR VILLARREAL M.D. Performed By: #### G LULS #### Point of Care testing , Glucose [Mass/Vol] 105 mg/dL Normal [facility] Comment on above: Result Comment: [place] om Glucose Reference Range is dependent on time and content of last meal. Glucose of more than 200 mg/dL in a nonstressed, ambulatory subject supports the diagnosis of Diabetes Mellitus. Performed By: #### G LULS #### Point of Care testing , Glucose [Mass/Vol] 107 mg/dL Normal [facility] Comment on above: Result Comment: [place] om Glucose Reference Range is dependent on time and content of last meal. Glucose of more than 200 mg/dL in a nonstressed, ambulatory subject supports the diagnosis of Diabetes Mellitus. PERFORMED BY: [place] [address] PATHOLOGIST CLOUD AUTOMATION TESTER PILAR VILLARREAL M.D. Performed By: #### C BC, BMP #### [place] [id number] [facility] US carotid doppler BIon 0 US carotid doppler BI [facility] [place] [address] [place] [address] Ultrasound Report Signed Patient: Abdirahman Gomez MR#: [id number] : 1940 Acct:[id number] Age/Sex: 81 / F ADM Date: 06/09/22 Loc: Room: [address] [place] [address] Type: DIS IN Attending Dr: Frida De [...] Bebo Howell MD06/18/2022 4:50 PM Dictation Location: [place] [address] Tech: Margaret Rust Transcribed By: CHANDRAKANT 06/18/221649 Dictated By: Bebo Howell MD 06/18/22 164 Signed By: 06/18/221649 [facility] Albumin [Mass/volume] in Ser um or PlasmaOrdered By: Stiven Zaman on 01-04-2023 Albumin [Mass/Vol] 3.3 g/dL 3.2-5.5 [facility] Complete Blood Count Auto Di ffon 06-17-2022 Basophils (Bld) [#/Vol] 0.2 10*3/uL Normal 0.0-0.2 [facility] Comment on above: Result Comment: PERF ORMED BY: [facility] [address] PATHOLOGIST CLOUD AUTOMATION TESTER PILAR VILLARREAL M.D. Performed By: #### G LULS #### Point of Care testing , Basophils/100 WBC (Bld) 1.4 % Normal . [facility] Comment on above: Performed By: #### G LULS #### Point of Care testing , Eosinophils (Bld) [#/Vol] 0.3 10*3/uL Normal 0.0-0.45 [facility] Comment on above: Performed By: #### G LULS #### Point of Care testing , Eosinophils/100 WBC (Bld) 2.4 % Normal . [facility] Comment on above: Performed By: #### G LULS #### Point of Care testing , Erythrocyte distribution width (RBC) [Ratio] 13.2 % Normal 11.9-15.3 [facility] Comment on above: Performed By: #### G LULS #### Point of Care testing , Hematocrit (Bld) [Volume fraction] 38.9 % Normal 34.0-46.4 [facility] Comment on above: Performed By: #### G LULS #### Point of Care testing , Hemoglobin (Bld) [Mass/Vol] 12.8 g/dL Normal 11.8-15.4 [facility] Comment on above: Performed By: #### G LULS #### Point of Care testing , Lymphocytes (Bld) [#/Vol] 3.2 10*3/uL Normal 1.00-4.8 [facility] Comment on above: Performed By: #### G LULS #### Point of Care testing , Lymphocytes/100 WBC (Bld) 29.1 % Normal . [facility] Comment on above: Performed By: #### G LULS #### Point of Care testing , MCH (RBC) [Entitic mass] 33.5 pg Normal 24.7-34.3 [facility] Comment on above: Performed By: #### G LULS #### Point of Care testing , MCV (RBC) [Entitic vol] 102.3 fL High 80-100 [facility] Comment on above: Performed By: #### G LULS #### Point of Care testing , Mean Corpuscular HGB Conc 32.8 g/dL Normal 32.0-35.0 [facility] Comment on above: Performed By: #### G CARLEENLS #### Point of Care testing , Monocytes (Bld) [#/Vol] 1.0 10*3/uL High 0.0-0.8 [facility] Comment on above: Performed By: #### G CARLEENLS #### Point of Care testing , Monocytes/100 WBC (Bld) 9.4 % Normal . [facility] Comment on above: Performed By: #### G CARLEENLS #### Point of Care testing , Neutrophils (Bld) [#/Vol] 6.3 10*3/uL Normal 1.8-7.7 [facility] Comment on above: Performed By: #### G CARLEENLS #### Point of Care testing , Neutrophils/100 WBC (Bld) 57.7 % Normal . [facility] Comment on above: Performed By: #### G CARLEENLS #### Point of Care testing , NRBC% 0.0 /100{WBC} Normal 0-0.5 [facility] Comment on above: Performed By: #### G CARLEENLS #### Point of Care testing , Platelet mean volume (Bld) [Entitic vol] 7.5 fL Normal 6.3-10.7 [facility] Comment on above: Performed By: #### G LULS #### Point of Care testing , Platelets (Bld) [#/Vol] 309 10*3/uL Normal 150-450 [facility] Comment on above: Performed By: #### G LULS #### Point of Care testing , RBC (Bld) [#/Vol] 3.81 10*6/uL Normal 3.60-5.00 [facility] Comment on above: Performed By: #### Ginna MALONE #### Point of Care testing , WBC (Bld) [#/Vol] 10.9 10*3/uL Normal 3.8-11.6 [facility] Comment on above: Performed By: #### Ginna MALONE #### Point of Care testing , Comprehensive Metabolic Pane jazmin 06-17-2022 Albumin [Mass/Vol] 3.3 g/dL Normal 3.2-5.5 [facility] Comment on above: Performed By: #### Ginna MALONE #### Point of Care testing , Albumin/Globulin [Mass ratio] 0.9 {ratio} Normal [facility] Comment on above: Performed By: #### Ginna MALONE #### Point of Care testing , ALP [Catalytic activity/Vol] 76 U/L Normal 32-92 [facility] Comment on above: Performed By: #### Ginna MALONE #### Point of Care testing , ALT [Catalytic activity/Vol] 39 U/L Normal 10-60 [facility] Comment on above: Performed By: #### Ginna MALONE #### Point of Care testing , Anion gap [Moles/Vol] 13.1 mmol/L Normal 6.0-15.0 [facility] Comment on above: Performed By: #### Ginna MALONE #### Point of Care testing , AST [Catalytic activity/Vol] 52 U/L High 10-42 [facility] Comment on above: Performed By: #### Ginna MALONE #### Point of Care testing , Bilirubin [Mass/Vol] 0.5 mg/dL Normal 0.3-1.2 [facility] Comment on above: Performed By: #### Ginna MALONE #### Point of Care testing , Calcium [Mass/Vol] 9.0 mg/dL Normal 8.2-10.2 [facility] Comment on above: Performed By: #### Ginna MALONE #### Point of Care testing , Chloride [Moles/Vol] 106 mmol/L Normal 95-114 [facility] Comment on above: Performed By: #### G CARLEENLS #### Point of Care testing , CO2 [Moles/Vol] 20.6 mmol/L Low 22.0-30.0 [facility] Comment on above: Performed By: #### G CARLEENLS #### Point of Care testing , Creatinine [Mass/Vol] 0.78 mg/dL Normal 0.44-1.03 [facility] Comment on above: Performed By: #### G LULS #### Point of Care testing , Creatinine Clr Calc Pharmacy 50.13 [facility] Comment on above: Performed By: #### G LULS #### Point of Care testing , Estimated GFR ( Rose > 60 [facility] Comment on above: Result Comment: GFR estimated reference range: According to KDOQI guidelines, <60 ml/min/1.73m2 is sufficient to diagnose a patient with chronic kidney disease. Performed By: #### G CARLEENLS #### Point of Care testing , Estimated GFR (Non- Am > 60 [facility] Comment on above: Performed By: #### G CARLEENLS #### Point of Care testing , Globulin (S) [Mass/Vol] 3.6 g/dL Normal [facility] Comment on above: Performed By: #### G CARLEENLS #### Point of Care testing , Glucose [Mass/Vol] 107 mg/dL High 70-100 [facility] Comment on above: Result Comment: [facility] [place] Glucose Reference Range is dependent on time and content of last meal. Glucose of more than 200 mg/dL in a nonstressed, ambulatory subject supports the diagnosis of Diabetes Mellitus. ADA recommended reference range Performed By: #### G LULS #### Point of Care testing , Potassium [Moles/Vol] 3.7 mmol/L Normal 3.5-5.1 [facility] Comment on above: Performed By: #### G LULS #### Point of Care testing , Protein [Mass/Vol] 6.9 g/dL Normal 6.1-7.9 [facility] Comment on above: Performed By: #### G LULS #### Point of Care testing , Sodium [Moles/Vol] 136 mmol/L Normal 136-146 [facility] Comment on above: Performed By: #### G LULS #### Point of Care testing , Urea nitrogen [Mass/Vol] 13 mg/dL Normal 9-23 [facility] Comment on above: Performed By: #### G LULS #### Point of Care testing , Globulin Calc (S) [Mass/Vol] Ordered By: Stiven Zaman on 06-17-2022 Globulin (S) [Mass/Vol] 3.6 g/dL F [facility] Glucose Poct Glucometerson 0 06-17-2022 Commemt1 [facility] Comment on above: Result Comment: Glu2 : WILL NOTIFY DR/RN Performed By: #### G LULS #### Point of Care testing , Commemt2 Cleaned Meter [facility] Comment on above: Result Comment: PERF ORMED BY: [facility] [address] [place] [address] PATHOLOGIST CLOU[employer]OM[employer] TESTER PILAR VILLARREAL M.D. Performed By: #### G LULS #### Point of Care testing , Glucose [Mass/Vol] 121 mg/dL Normal [facility] Comment on above: Result Comment: [facility] [place] [facility] [place] Glucose Reference Range is dependent on time and content of last meal. Glucose of more than 200 mg/dL in a nonstressed, ambulatory subject supports the diagnosis of Diabetes Mellitus. Performed By: #### G LULS #### Point of Care testing , Glucose [Mass/Vol] 105 mg/dL Normal [facility] Comment on above: Result Comment: [facility] Glucose Reference Range is dependent on time and content of last meal. Glucose of more than 200 mg/dL in a nonstressed, ambulatory subject supports the diagnosis of Diabetes Mellitus. PERFORMED BY: [facility] [address] [place] [address] PATHOLOGIST CLOU[employer]OM[employer] TESTER PILAR VILLARREAL M.D. Performed By: #### G LULS #### Point of Care testing , Prealbuminon 06-17-2022 Prealbumin [Mass/Vol] 24.1 mg/dL Normal 18.0-38.0 [facility] Comment on above: Result Comment: PERF ORMED BY: [facility] [address] [place] [address] PATHOLOGIST CLOU[employer] TE[employer] PILAR VILLARREAL M.D. Performed By: #### L IPID, A1C WTH eA #### [facility] [address] Protein [Mass/volume] in Ser um or PlasmaOrdered By: Stiven Zaman on 06-17-2022 Protein [Mass/Vol] 6.9 g/dL 6.1-7.9 [facility] Serum or plasma alanine carney otransferase measurement without P-5'-P (enzymatic activiOrdered By: Stiven Zaman on 06-17-2022 ALT No additional P-5'-P [Catalytic activity/Vol] 39 U/L 10-60 [facility] Serum or plasma albumin/glob ulin mass ratioOrdered By: Stiven Zaman on 06-17-2022 Albumin/Globulin [Mass ratio] 0.9 {ratio} [facility] Serum or plasma alkaline ayad sphatase measurement (enzymatic activity/volume)Ordered By: Stiven Zaman on 06-17-2022 ALP [Catalytic activity/Vol] 76 U/L 32-92 [facility] Serum or plasma aspartate am inotransferase measurement (enzymatic activity/volume)Ordered By: Stiven Zaman on 06-17-2022 AST [Catalytic activity/Vol] 52 U/L 10-42 [facility] Serum or plasma prealbumin m easurement (mass/volume)Ordered By: Stiven Zaman on 06-17-2022 Prealbumin [Mass/Vol] 24.1 mg/dL 18.0-38.0 [facility] Serum or plasma total biliru bin measurement (mass/volume)Ordered By: Stiven Zaman on 06-17-2022 Bilirubin [Mass/Vol] 0.5 mg/dL 0.3-1.2 [facility] Basic Metabolic Panelon Anion gap [Moles/Vol] 14.0 mmol/L Normal 6.0-15.0 [facility] Comment on above: Performed By: #### L IPID, A1C WT eA #### [facility] [address] [place] [address] [place] Calcium [Mass/Vol] 9.5 mg/dL Normal 8.2-10.2 [facility] Comment on above: Performed By: #### L IPID, A1C WTH eA #### [facility] [address] [place] [address] [place] Chloride [Moles/Vol] 102 mmol/L Normal 95-114 [facility] Comment on above: Performed By: #### L IPID, A1C WT eA #### [facility] [address] CO2 [Moles/Vol] 21.7 mmol/L Low 22.0-30.0 [facility] Comment on above: Performed By: #### L IPID, A1C WT eA #### [facility] [address] [place] [address] Creatinine [Mass/Vol] 0.83 mg/dL Normal 0.44-1.03 [facility] Comment on above: Performed By: #### L IPID, A1C WT eA #### [facility] [address] [place] [address] [place] Creatinine Clr Calc Pharmacy 48.32 [facility] Comment on above: Result Comment: PERF ORMED BY: [place] [address] PATHOLOGIST CLOUD [employer]OM[employer] TESTER PILAR VILLARREAL M.D. Performed By: #### L IPID, A1C WT eA #### [facility] [address] [place] [address] Estimated GFR ( Rose > 60 [facility] Comment on above: Result Comment: GFR estimated reference range: According to KDOQI guidelines, <60 ml/min/1.73m2 is sufficient to diagnose a patient with chronic kidney disease. Performed By: #### L IPID, A1C WT eA #### [facility] [address] [place] [address] [place] Estimated GFR (Non- Am > 60 [facility] Comment on above: Performed By: #### L IPID, A1C WTH eA #### [facility] [address] [place] [address] [place] Glucose [Mass/Vol] 142 mg/dL High 70-100 [facility] Comment on above: Result Comment: [facility] [place] [facility] [place] Glucose Reference Range is dependent on time and content of last meal. Glucose of more than 200 mg/dL in a nonstressed, ambulatory subject supports the diagnosis of Diabetes Mellitus. ADA recommended reference range Performed By: #### L IPID, A1C WTH eA #### [facility] [address] Potassium [Moles/Vol] 3.7 mmol/L Normal 3.5-5.1 [facility] Comment on above: Performed By: #### L IPID, A1C WTH eA #### [facility] [address] [place] [address] [place] Sodium [Moles/Vol] 134 mmol/L Low 136-146 [facility] Comment on above: Performed By: #### L IPID, A1C WTH eA #### [facility] [address] [place] [address] [place] Urea nitrogen [Mass/Vol] 15 mg/dL Normal 9-23 [facility] Comment on above: Performed By: #### L IPID, A1C WTH eA #### [facility] [address] [place] [address] [place] Basophils Auto (Bld) [#/Vol] Ordered By: Frida De La Cruz on 06-15-2022 Basophils (Bld) [#/Vol] 0.1 10*3/uL 0.0-0.2 [facility] Basophils/100 WBC Auto (Bld) Ordered By: Frida De La Cruz on 06-15-2022 Basophils/100 WBC (Bld) 1.2 % . [facility] Complete Blood Count Auto Di ffon 06-15-2022 Basophils (Bld) [#/Vol] 0.1 10*3/uL Normal 0.0-0.2 [facility] Comment on above: Result Comment: PERF ORMED BY: [place] [address] PATHOLOGIST CLOUD [employer]OM[employer] TESTER PILAR VILLARREAL M.D. Performed By: #### L IPID, [address] eA #### [address] Basophils/100 WBC (Bld) 1.2 % Normal . [facility] Comment on above: Performed By: #### L IPID, A1C WT eA #### [address] Eosinophils (Bld) [#/Vol] 0.3 10*3/uL Normal 0.0-0.45 [facility] Comment on above: Performed By: #### L IPID, [facility] WT eA #### [address] Eosinophils/100 WBC (Bld) 2.6 % Normal . [facility] Comment on above: Performed By: #### L IPID, [address] eA #### [address] Erythrocyte distribution width (RBC) [Ratio] 13.7 % Normal 11.9-15.3 [facility] Comment on above: Performed By: #### L IPID, [address] eA #### [address] Hematocrit (Bld) [Volume fraction] 41.4 % Normal 34.0-46.4 [facility] Comment on above: Performed By: #### L IPID, [facility] WT eA #### [place] [address] [place] Hemoglobin (Bld) [Mass/Vol] 13.6 g/dL Normal 11.8-15.4 [facility] Comment on above: Performed By: #### L IPID, A1C WT eA #### [place] [address] [place] Lymphocytes (Bld) [#/Vol] 2.9 10*3/uL Normal 1.00-4.8 [facility] Comment on above: Performed By: #### L IPID, [facility] WT eA #### [facility] [address] [place] [address] [place] Lymphocytes/100 WBC (Bld) 27.7 % Normal . [facility] Comment on above: Performed By: #### L IPID, A1C WT eA #### [facility] [address] [place] [id number] [place] MCH (RBC) [Entitic mass] 33.9 pg Normal 24.7-34.3 [facility] Comment on above: Performed By: #### L IPID, [address] eA #### [facility] [address] [place] [address] [place] MCV (RBC) [Entitic vol] 103.3 fL High 80-100 [facility] Comment on above: Performed By: #### L IPID, [facility] WT eA #### [facility] [address] Mean Corpuscular HGB Conc 32.8 g/dL Normal 32.0-35.0 [facility] Comment on above: Performed By: #### L IPID, [address] eA #### [facility] [address] [place] [address] [place] Monocytes (Bld) [#/Vol] 0.7 10*3/uL Normal 0.0-0.8 [facility] Comment on above: Performed By: #### L IPID, [facility] WT eA #### [facility] [address] [place] [address] [place] Monocytes/100 WBC (Bld) 6.9 % Normal . [facility] Comment on above: Performed By: #### L IPID, A1C WT eA #### [facility] [address] [place] [address] [place] Neutrophils (Bld) [#/Vol] 6.6 10*3/uL Normal 1.8-7.7 [facility] Comment on above: Performed By: #### L IPID, A1C WT eA #### [facility] [address] [place] [id number] [place] Neutrophils/100 WBC (Bld) 61.6 % Normal . [facility] Comment on above: Performed By: #### L IPID, [address] eA #### [facility] [address] NRBC% 0.1 /100{WBC} Normal 0-0.5 [facility] Comment on above: Performed By: #### L IPID, [address] eA #### [address] Platelet mean volume (Bld) [Entitic vol] 8.0 fL Normal 6.3-10.7 [facility] Comment on above: Performed By: #### L IPID, [address] eA #### [address] Platelets (Bld) [#/Vol] 282 10*3/uL Normal 150-450 [facility] Comment on above: Performed By: #### L IPID, [address] eA #### [address] RBC (Bld) [#/Vol] 4.01 10*6/uL Normal 3.60-5.00 [facility] Comment on above: Performed By: #### L IPID, [address] eA #### [address] WBC (Bld) [#/Vol] 10.7 10*3/uL Normal 3.8-11.6 [facility] Comment on above: Performed By: #### L IPID, [address] eA #### [address] Creatinine and Glomerular fi ltration rate.predicted panel (S/P/Bld)Ordered By: Frida De La Cruz on 06-15-2022 Creatinine [Mass/Vol] 0.83 mg/dL 0.44-1.03 [facility] Eosinophils Auto (Bld) [#/Vo l]Ordered By: Frida De La Cruz on 06-15-2022 Eosinophils (Bld) [#/Vol] 0.3 10*3/uL 0.0-0.45 [facility] Eosinophils/100 WBC Auto (Bl d)Ordered By: Frida De La Cruz on 06-15-2022 Eosinophils/100 WBC (Bld) 2.6 % . [facility] Erythrocyte distribution wid th Auto (RBC) [Ratio]Ordered By: Frida De La Cruz on 06-15-2022 Erythrocyte distribution width (RBC) [Ratio] 13.7 % 11.9-15.3 [facility] Estimated glomerular filtrat ion rate (GFR) non- AmericanOrdered By: Frida De La Cruz on 06-15-2022 GFR/1.73 sq M.predicted among non-blacks MDRD (S/P/Bld) [Vol rate/Area] > 60 mL/Min [facility] Hematocrit Auto (Bld) [Volum e fraction]Ordered By: Frida De La Cruz on 06-15-2022 Hematocrit (Bld) [Volume fraction] 41.4 % 34.0-46.4 [facility] Hemoglobin [Mass/volume] in BloodOrdered By: Frida De La Cruz on 06-15-2022 Hemoglobin (Bld) [Mass/Vol] 13.6 g/dL 11.8-15.4 [facility] Leukocytes [#/volume] correc zoe for nucleated erythrocytes in Blood by Automated counOrdered By: Frida De La Cruz on 06-15-2022 WBC corrected for nucl RBC Auto (Bld) [#/Vol] 10.7 10*3/uL 3.8-11.6 [facility] Lymphocytes Auto (Bld) [#/Vo l]Ordered By: Frida De La Cruz on 06-15-2022 Lymphocytes (Bld) [#/Vol] 2.9 10*3/uL 1.00-4.8 [facility] Lymphocytes/100 WBC Auto (Bl d)Ordered By: Frida De La Cruz on 06-15-2022 Lymphocytes/100 WBC (Bld) 27.7 % . [facility] MCH Auto (RBC) [Entitic mass ]Ordered By: Frida De La Cruz on 06-15-2022 MCH (RBC) [Entitic mass] 33.9 pg 24.7-34.3 [facility] MCHC Auto (RBC) [Mass/Vol]Or dered By: Frida De La Cruz on 06-15-2022 MCHC (RBC) [Mass/Vol] 32.8 g/dL 32.0-35.0 [facility] MCV Auto (RBC) [Entitic vol] Ordered By: Frida De La Cruz on 06-15-2022 MCV (RBC) [Entitic vol] 103.3 fL 80-100 [facility] Monocytes Auto (Bld) [#/Vol] Ordered By: Frida De La Cruz on 06-15-2022 Monocytes (Bld) [#/Vol] 0.7 10*3/uL 0.0-0.8 [facility] Monocytes/100 WBC Auto (Bld) Ordered By: Frida De La Cruz on 06-15-2022 Monocytes/100 WBC (Bld) 6.9 % . [facility] Neutrophils Auto (Bld) [#/Vo l]Ordered By: Frida De La Cruz on 06-15-2022 Neutrophils (Bld) [#/Vol] 6.6 10*3/uL 1.8-7.7 [facility] Neutrophils/100 WBC Auto (Bl d)Ordered By: Frida De La Cruz on 06-15-2022 Neutrophils/100 WBC (Bld) 61.6 % . [facility] No Panel InformationOrdered By: Frida De La Cruz on 06-15-2022 Estimated GFR () > 60 mL/Min [facility] Comment on above: GFR estimated refere nce range: According to KDOQI guidelines, <60 ml/min/1.73m2 is sufficient to diagnose a patient with chronic kidney disease. Pharmacy Creatinine Clearance (Chem 48.32 [facility] Nucleated erythrocytes [Pres ence] in Blood by Automated countOrdered By: Frida De La Cruz on 06-15-2022 Nucleated RBC Auto Ql (Bld) 0.1 /100{WBC} 0-0.5 [facility] Platelet mean volume Auto (B ld) [Entitic vol]Ordered By: Frida De La Cruz on 06-15-2022 Platelet mean volume (Bld) [Entitic vol] 8.0 fL 6.3-10.7 [facility] Platelets Auto (Bld) [#/Vol] Ordered By: Frida De La Cruz on 06-15-2022 Platelets (Bld) [#/Vol] 282 10*3/uL 150-450 [facility] RBC Auto (Bld) [#/Vol]Ordere d By: Frida De La Cruz on 06-15-2022 RBC (Bld) [#/Vol] 4.01 10*6/uL 3.60-5.00 [facility] Serum or plasma anion gap de terminationOrdered By: Frida De La Cruz on 06-15-2022 Anion gap [Moles/Vol] 14.0 mmol/L 6.0-15.0 [facility] Serum or plasma calcium jerrod urement (mass/volume)Ordered By: Frida De La Cruz on 06-15-2022 Calcium [Mass/Vol] 9.5 mg/dL 8.2-10.2 [facility] Serum or plasma chloride salma surement (moles/volume)Ordered By: Frida De La Cruz on 06-15-2022 Chloride [Moles/Vol] 102 mmol/L 95-114 [facility] Serum or plasma glucose jerrod urement (mass/volume)Ordered By: Frida De La Cruz on 06-15-2022 Glucose [Mass/Vol] 142 mg/dL 70-100 [facility] Comment on above: ADA recommended refe rence rangeRandom Glucose Reference Range is dependent on time and content of last meal. Glucose of more than 200 mg/dL in a nonstressed, ambulatory subject supports the diagnosis of Diabetes Mellitus. Serum or plasma potassium me asurement (moles/volume)Ordered By: Frida De La Cruz on 06-15-2022 Potassium [Moles/Vol] 3.7 mmol/L 3.5-5.1 [facility] Serum or plasma sodium measu rement (moles/volume)Ordered By: Frida De La Cruz on 06-15-2022 Sodium [Moles/Vol] 134 mmol/L 136-146 [facility] Serum or plasma total carbon dioxide measurement (moles/volume)Ordered By: Frida De La Cruz on 06-15-2022 CO2 [Moles/Vol] 21.7 mmol/L 22.0-30.0 [facility] Serum or plasma urea nitroge n measurement (mass/volume)Ordered By: Frida De La Cruz on 06-15-2022 Urea nitrogen [Mass/Vol] 15 mg/dL 03-06 [facility] WBC Auto (Bld) [#/Vol]Ordere d By: Frida De La Cruz on 06-15-2022 WBC (Bld) [#/Vol] 10.7 10*3/uL 3.8-11.6 [facility] ECG 12 lead ECGon 06-14-2022 ECG 12 lead ECG [facility] [place] [address] [place], [place] [id number] Electrocardiograph Report Signed Patient: Abdirahman Gomez MR#: [id number] : 1940 Acct:[id number] Age/Sex: 81 / F ADM Date: 06/09/22 Loc: Room: [address] [place] [address] Type: DIS IN Attending Dr: Frida De [...] Yoav Prado MD 0 06/15/22 0617 Normal [facility] Troponin I High Sensitivityo n 06-14-2022 Troponin I High Sensitivity 906 pg/mL Off scale high 0-15 [facility] Comment on above: Result Comment: Crit ical value result called at 1642 on 06/14/22 PERFORMED BY: [place] [address] PATHOLOGIST CLOUD [employer]OM[employer] TESTER PILAR VILLARREAL M.D. Performed By: #### G KIRA #### Point of Care testing , Troponin I.cardiac [Mass/vol ume] in Serum or Plasma by High sensitivity methodOrdered By: Nathaniel Castillo on 06-14-2022 Troponin I.cardiac High sensitivity method [Mass/Vol] 906 pg/mL 0-15 [facility] Comment on above: Critical valueresult calledat 1642 on 06/14/22 A1C with Estimated Average Ginna tapia 06-13-2022 Glucose [Mass/Vol] 123 mg/dL Normal [facility] Comment on above: Result Comment: PERF ORMED BY: [place] [address] PATHOLOGIST CLOUD [employer]OMATION TESTER PILAR VILLARREAL M.D. Performed By: #### L IPID, A1C [facility] eA #### [facility] [address] [place] [address] HbA1c (Bld) [Mass fraction] 5.9 % High 4.3-5.6 [facility] Comment on above: Result Comment: Incr eased risk for diabetes: 5.7 - 6.4 diabetes: >6.4 glycemic control for adults with diabetes: <7.0 Performed By: #### L IPID, A1C WT eA #### [facility] [address] [place] [address] Cholesterol [Mass/volume] in Serum or PlasmaOrdered By: Nathaniel Castillo on 06-13-2022 Cholesterol [Mass/Vol] 150 mg/dL 140-200 [facility] Comment on above: Chol less than 200 m g/dl low riskChol 201-239 mg/dl borderline riskChol 240 mg/dl and greater high risk Cholesterol in LDL Calc [Mas s/Vol]Ordered By: Nathaniel Castillo on 06-13-2022 Cholesterol in LDL [Mass/Vol] 80 mg/dL 0-100 [facility] Comment on above: LDL ATP III CLASSIFI CATIONLDL less than 100 mg/dL OptimalLDL 100-129 mg/dL Near or above optimalLDL 130-159 mg/dL Borderline highLDL 160-189 mg/dL HighLDL greater than 189 mg/dL Very high Cholesterol in VLDL Calc [Ma ss/Vol]Ordered By: Nathaniel Castillo on 06-13-2022 Cholesterol in VLDL [Mass/Vol] 25 mg/dL [facility] ECG 12 lead ECGon 06-13-2022 ECG 12 lead ECG [facility] [place] [address] Electrocardiograph Report Signed Patient: Abdirahman Gomez MR#: [id number] : 1940 Acct:[id number] Age/Sex: 81 / F ADM Date: 06/09/22 Loc: Room: [address] [place] [address] Type: DIS IN Attending Dr: Frida De [...] By Ousmane Epstein DO 06/15 1119 Normal [facility] Glucose mean value [Mass/vol ume] in Blood Estimated from glycated hemoglobinOrdered By: Nathaniel Castillo on 06-13-2022 Average glucose Estimated from glycated hemoglobin (Bld) [Mass/Vol] 123 mg/dL [facility] Hemoglobin A1c percentageOrd ered By: Nathaniel Castillo on 06-13-2022 HbA1c (Bld) [Mass fraction] 5.9 % 4.3-5.6 [facility] Comment on above: Increased risk for d iabetes: 5.7 - 6.4diabetes: >6.4glycemic control for adults with diabetes: <7.0 Lipid Panelon 06-13-2022 Cholesterol [Mass/Vol] 150 mg/dL Normal 140-200 [facility] Comment on above: Result Comment: Chol less than 200 mg/dl low risk Chol 201-239 mg/dl borderline risk Chol 240 mg/dl and greater high risk Performed By: #### L IPID, A1C WT eA #### [facility] [address] Cholesterol in HDL [Mass/Vol] 45 mg/dL Normal 35-85 [facility] Comment on above: Result Comment: HDL CHOL ATP-III CLASSIFICATION Cardiovascular Risk HDL > or equal to 60 mg/dL LOW HDL < 40 mg/dL HIGH Performed By: #### L IPID, [address] eA #### [facility] [address] Cholesterol.total/Gabriela sterol in HDL [Mass ratio] 3.3 {ratio} Normal <5.0 [facility] Comment on above: Result Comment: PERF ORMED BY: [place] [address] PATHOLOGIST CLOUD [employer]OM[employer] TESTER PILAR VILLARREAL M.D. Performed By: #### L IPID, [address] eA #### [facility] [address] LDL Cholesterol,Calculated 80 mg/dL Normal 0-100 [facility] Comment on above: Result Comment: LDL ATP III CLASSIFICATION LDL less than 100 mg/dL Optimal LDL 100-129 mg/dL Near or above optimal LDL 130-159 mg/dL Borderline high LDL 160-189 mg/dL High LDL greater than 189 mg/dL Very high Performed By: #### L IPID, A1C WT eA #### [facility] [address] [place] [id number] [place] Triglyceride w/Reflex 127 mg/dL Normal 35-149 [facility] Comment on above: Result Comment: TRIG ATP III CLASSIFICATION TRIG less than 150 mg/dL Normal TRIG 150-199 mg/dL Borderline high TRIG 200-500 mg/dL High TRIG greater than 500 mg/dL Very high Standard traceable to the Center for Disease Conrtrol and Prevention (CDC) test method. Performed By: #### L IPID, A1C [facility] eA #### [facility] [address] VLDL CHOLESTEROL 25 mg/dL Normal [facility] Comment on above: Performed By: #### L IPID, A1C [facility] eA #### [facility] [address] Serum or plasma high density lipoprotein (HDL) cholesterol measurementOrdered By: Nathaniel Castillo on 06-13-2022 Cholesterol in HDL [Mass/Vol] 45 mg/dL 35-85 [facility] Comment on above: HDL CHOL ATP-III CLA SSIFICATION Cardiovascular RiskHDL > or equal to 60 mg/dL LOWHDL < 40 mg/dL HIGH Serum or plasma total choles terol/high density lipoprotein (HDL) cholesterol mass ratOrdered By: Nathaniel Castillo on 06-13-2022 Cholesterol.total/Gabriela sterol in HDL [Mass ratio] 3.3 {ratio} <5.0 [facility] Triglyceride [Mass/volume] i n Serum or PlasmaOrdered By: Nathaniel Castillo on 06-13-2022 Triglyceride [Mass/Vol] 127 mg/dL 35-149 F [facility] Comment on above: TRIG ATP III CLASSIF ICATIONTRIG less than 150 mg/dL NormalTRIG 150-199 mg/dL Borderline highTRIG 200-500 mg/dL High TRIG greater than 500 mg/dL Very highStandard traceable to the Center for Disease Conrtrol and Prevention (CDC) test method. MR angio head wo conon 06-12 MR angio head wo con [facility] Main [place] [address] [place] [address] MRI Report Signed Patient: Abdirahman Gomez MR#: [id number] : 1940 Acct:[id number] Age/Sex: 81 / F ADM Date: 06/09/22 Loc: 3T Room: [address] [place] [address] Type: ADM IN Attending Dr: Nathaniel Castillo MD Copies to: Nathaniel Castillo MD Ordering Provider: Nathaniel Castillo MD Date of Service: 06/12/22 MR/MR angio head wo con: stroke MRA OF THE INTRACRANIAL CIRCULATION TECHNIQUE: 3-D xxkb-jk-lkrtsa imaging of the [place] of [place] obtained. HISTORY:LEFT arm weakness. The visualized carotid and the vertebrobasilar system are unremarkable. No abnormality of the anterior, middle and posterior cerebral arteries identified. No arterial occlusion, stenosis or dissection identified. No intracranial aneurysm identified. MR/MR angio head wo con IMPRESSION: UNREMARKABLE MRA OF THE INTRACRANIAL CIRCULATION. Impression dictated by: Mamadou Rodríguez M.D.06/12/2022 1:36 PM Dictation Location: [place] [address] Transcribed By: [facility] 06/12/22 1336 Dictated By: Mamadou Rodríguez DO 06/12/22 1330 Signed By: 06/12/22 1336 [facility] MR head/brain wo conon 06-12 MR head/brain wo con [facility] [place] [address] MRI Report Signed Patient: Abdirahman Gomez MR#: [id number] : 1940 Acct:[id number] Age/Sex: 81 / F ADM Date: 06/09/22 Loc: Room: [address] [place] [address] Type: ADM IN Attending Dr: Nathaniel Castillo [...] Beasley Jr., D.O.06/12/2022 10:02 AM Dictation Location: [place] [address] Transcribed By: [facility] 06/12/22 1002 Dictated By: Stiven Beasley Jr, DO 06/12/22 0950 Signed By: 06/12/22 1002 Normal [facility] Complete Blood Count Auto Di ffon 06-11-2022 Basophils (Bld) [#/Vol] 0.1 10*3/uL Normal 0.0-0.2 [facility] Comment on above: Result Comment: PERF ORMED BY: [facility] [address] [place] [address] PATHOLOGIST CLOUD [employer] TESTER PILAR VILLARREAL M.D. Performed By: #### G LULS #### Point of Care testing , Basophils/100 WBC (Bld) 0.5 % Normal . F [facility] Comment on above: Performed By: #### G LULS #### Point of Care testing , Eosinophils (Bld) [#/Vol] 0.1 10*3/uL Normal 0.0-0.45 [facility] Comment on above: Performed By: #### G LULS #### Point of Care testing , Eosinophils/100 WBC (Bld) 1.2 % Normal . [facility] Comment on above: Performed By: #### G LULS #### Point of Care testing , Erythrocyte distribution width (RBC) [Ratio] 13.6 % Normal 11.9-15.3 [facility] Comment on above: Performed By: #### G LULS #### Point of Care testing , Hematocrit (Bld) [Volume fraction] 37.7 % Normal 34.0-46.4 [facility] Comment on above: Performed By: #### G LULS #### Point of Care testing , Hemoglobin (Bld) [Mass/Vol] 12.4 g/dL Normal 11.8-15.4 [facility] Comment on above: Performed By: #### G CARLEENLS #### Point of Care testing , Lymphocytes (Bld) [#/Vol] 2.8 10*3/uL Normal 1.00-4.8 [facility] Comment on above: Performed By: #### G CARLEENLS #### Point of Care testing , Lymphocytes/100 WBC (Bld) 24.1 % Normal . [facility] Comment on above: Performed By: #### G CARLEENLS #### Point of Care testing , MCH (RBC) [Entitic mass] 34.5 pg High 24.7-34.3 [facility] Comment on above: Performed By: #### G CARLEENLS #### Point of Care testing , MCV (RBC) [Entitic vol] 104.5 fL High 80-100 F [facility] Comment on above: Performed By: #### G CARLEENLS #### Point of Care testing , Mean Corpuscular HGB Conc 33.0 g/dL Normal 32.0-35.0 [facility] Comment on above: Performed By: #### G CARLEENLS #### Point of Care testing , Monocytes (Bld) [#/Vol] 1.0 10*3/uL High 0.0-0.8 [facility] Comment on above: Performed By: #### G CARLEENLS #### Point of Care testing , Monocytes/100 WBC (Bld) 9.1 % Normal . F [facility] Comment on above: Performed By: #### G CARLEENLS #### Point of Care testing , Neutrophils (Bld) [#/Vol] 7.4 10*3/uL Normal 1.8-7.7 [facility] Comment on above: Performed By: #### G CARLEENLS #### Point of Care testing , Neutrophils/100 WBC (Bld) 65.1 % Normal . [facility] Comment on above: Performed By: #### G CARLEENLS #### Point of Care testing , NRBC% 0.1 /100{WBC} Normal 0-0.5 [facility] Comment on above: Performed By: #### G LULS #### Point of Care testing , Platelet mean volume (Bld) [Entitic vol] 8.0 fL Normal 6.3-10.7 [facility] Comment on above: Performed By: #### G LULS #### Point of Care testing , Platelets (Bld) [#/Vol] 206 10*3/uL Normal 150-450 [facility] Comment on above: Performed By: #### G LULS #### Point of Care testing , RBC (Bld) [#/Vol] 3.61 10*6/uL Normal 3.60-5.00 [facility] Comment on above: Performed By: #### G LULS #### Point of Care testing , WBC (Bld) [#/Vol] 11.4 10*3/uL Normal 3.8-11.6 [facility] Comment on above: Performed By: #### G LULS #### Point of Care testing , ECG 12 lead ECGon 06-11-2022 ECG 12 lead ECG [facility] [place] [address] Electrocardiograph Report Signed Patient: Abdirahman Gomez MR#: [id number] : 1940 Acct:[id number] Age/Sex: 81 / F ADM Date: 06/09/22 Loc: Room: [address] [place] [address] Type: DIS IN Attending Dr: Frida De [...] By Yoav Prado MD 1 1318 Normal [facility] Troponin I High Sensitivityo n 06-11-2022 Troponin I High Sensitivity 3701 pg/mL Off scale high 0-15 [facility] Comment on above: Result Comment: Resu lts called at 0655 on 06/11/22 PERFORMED BY: [place] [address] PATHOLOGIST CLOUD [employer]OM[employer] TESTER PILAR VILLARREAL M.D. Performed By: #### L IPID, A1C [facility] eA #### [place] [id number] [facility] XR chest 1V portableon 06-11 XR chest 1V portable [facility] Main [place] [address] [place] [address] XRay Report Signed Patient: Abdirahman Gomez MR#: [id number] : 1940 Acct:[id number] Age/Sex: 81 / F ADM Date: 06/09/22 Loc: Room: [address] [place] [address] Type: ADM IN Attending Dr: Nathaniel Castillo [...] Beasley Jr., D.OHuma06/11/2022 3:33 PM Dictation Location: [place] [address] Transcribed By: [facility] 06/11/22 1533 Dictated By: Stiven Beasley Jr DO 06/11/22 1533 Signed By: 06/11/22 1533 [facility] ECG 12 lead ECGon 06-10-2022 ECG 12 lead ECG [facility] Main [place] [id number] Electrocardiograph Report Signed Patient: Abdirahman Gomez MR#: [id number] : 1940 Acct:[id number] Age/Sex: 81 / F ADM Date: 06/09/22 Loc: 3T Room: [address] [place] [address] Type: DIS IN Attending Dr: Frida De [...] By Yoav Prado MD 1 08/11/21 1626 [facility] ECG 12 lead ECG [facility] Main [address] [address] Electrocardiograph Report Signed Patient: Abdirahman Gomez MR#: [id number] : 1940 Acct:[id number] Age/Sex: 81 / F ADM Date: 06/09/22 Loc: Room: [address] [place] [address] Type: DIS IN Attending Dr: Frida De [...] By Yoav Prado MD 1 08/11/21 1626 [facility] Basic Metabolic Panelon 12-2 Anion gap [Moles/Vol] 13.4 mmol/L Normal 6.0-15.0 [facility] Comment on above: Performed By: #### L IPID, [address] eA #### [facility] [address] [place] [id number] [place] Calcium [Mass/Vol] 8.9 mg/dL Normal 8.2-10.2 [facility] Comment on above: Performed By: #### L IPID, [address] eA #### [facility] [address] [place] [address] [place] Chloride [Moles/Vol] 106 mmol/L Normal 95-114 [facility] Comment on above: Performed By: #### L IPID, [address] eA #### [facility] [address] [place] [address] [place] CO2 [Moles/Vol] 21.6 mmol/L Low 22.0-30.0 [facility] Comment on above: Performed By: #### L IPID, [address] eA #### [facility] [address] [place] [id number] [place] Creatinine [Mass/Vol] 0.76 mg/dL Normal 0.44-1.03 [facility] Comment on above: Performed By: #### L IPID, A1C WTH eA #### [facility] [address] [place] [address] [place] Creatinine Clr Calc Pharmacy 49.92 [facility] Comment on above: Performed By: #### L IPID, A1C WTH eA #### [facility] [address] [place] [address] [place] Estimated GFR ( Rose > 60 [facility] Comment on above: Result Comment: GFR estimated reference range: According to KDOQI guidelines, <60 ml/min/1.73m2 is sufficient to diagnose a patient with chronic kidney disease. Performed By: #### L IPID, A1C WTH eA #### [facility] [address] Estimated GFR (Non- Am > 60 [facility] Comment on above: Performed By: #### L IPID, A1C WTH eA #### [address] Glucose [Mass/Vol] 136 mg/dL High 70-100 [facility] Comment on above: Result Comment: Carmen om Glucose Reference Range is dependent on time and content of last meal. Glucose of more than 200 mg/dL in a nonstressed, ambulatory subject supports the diagnosis of Diabetes Mellitus. ADA recommended reference range Performed By: #### L IPID, A1C WTH eA #### [place] [address] [place] Potassium [Moles/Vol] 4.0 mmol/L Normal 3.5-5.1 [facility] Comment on above: Performed By: #### L IPID, A1C WTH eA #### [facility] [address] [place] [address] [place] Sodium [Moles/Vol] 137 mmol/L Normal 136-146 [facility] Comment on above: Performed By: #### L IPID, A1C WTH eA #### [facility] [address] [place] [address] [place] Urea nitrogen [Mass/Vol] 9 mg/dL Normal 9-23 [facility] Comment on above: Performed By: #### L IPID, A1C WTH eA #### [facility] [address] CBC W MANUAL DIFFon 06-09-20 22 ATYPICAL LYMPH # 0.53 103/ul Normal [facility] Comment on above: Performed By: #### T SH, BNP, CMP, LIPID, T7 #### [facility] [address] [place] [address] [address] Logan Payne ATYPICAL LYMPH % 4 % Normal [facility] Comment on above: Performed By: #### T SH, BNP, CMP, LIPID, T7 #### [facility] [address] [place] [address] [address] Logan Payne BAND # 0.0 103/ul Normal 0.0-0.[address] [facility] Comment on above: Performed By: #### T SH, BNP, CMP, LIPID, T7 #### [facility] [address] [place] [address] Dr. Logan Payne BAND % 0 % Normal 0-[address] [facility] Comment on above: Performed By: #### T SH, BNP, CMP, LIPID, T7 #### [facility] [address] [place] [address] [address] Logan Payne BASOM # 0.26 103/ul Critically high 0.00-0.10 [facility] Comment on above: Performed By: #### T SH, BNP, CMP, LIPID, T7 #### [facility] [address] [place] [address] [address] Logan Payne BASOM % 2.0 % Normal 0.2-2.[address] [facility] Comment on above: Performed By: #### T SH, BNP, CMP, LIPID, T7 #### [facility] [address] [place] [address] [address] Logan Payne BLAST # Normal [facility] Comment on above: Performed By: #### T SH, BNP, CMP, LIPID, T7 #### [facility] [address] [place] [address] [address] Logan Payne BLAST % Normal [facility] Comment on above: Performed By: #### T SH, BNP, CMP, LIPID, T7 #### [facility] [address] [place] [address] [address] Logan Payne CORRECTED WBC Normal 4.0-11.0 [facility] Comment on above: Performed By: #### T SH, BNP, CMP, LIPID, T7 #### [facility] [address] [place] [address] [address] Logan Payne EOS # 0.66 103/ul Normal 0.00-0.70 [facility] Comment on above: Performed By: #### T SH, BNP, CMP, LIPID, T7 #### [facility] [address] [place] [address] [address] Logan Payne EOS% 5.0 % Normal 0.9-7.[address] [facility] Comment on above: Performed By: #### T SH, BNP, CMP, LIPID, T7 #### [facility] [address] [place] [address] [address] Logan Payne HCT 39.6 % Normal 36.0-48.[address] [facility] Comment on above: Performed By: #### T SH, BNP, CMP, LIPID, T7 #### [facility] [address] [place] [address] [address] Logan Payne HGB 13.5 g/dl Normal 12.0-16.[address] [facility] Comment on above: Performed By: #### T SH, BNP, CMP, LIPID, T7 #### [facility] [address] [place] [address] [address] Logan Payne LYMPHM # 1.98 103/ul Normal 1.20-3.80 [facility] Comment on above: Performed By: #### T SH, BNP, CMP, LIPID, T7 #### [facility] [address] [place] [address] [address] Logan Payne LYMPHM% 15.0 % Critically low 20.5-60.0 [facility] Comment on above: Performed By: #### T SH, BNP, CMP, LIPID, T7 #### [facility] [address] [place] [address] [address] Logan Payne MCH 34.1 pg Critically high 26.7-34.0 [facility] Comment on above: Performed By: #### T SH, BNP, CMP, LIPID, T7 #### [facility] [address] [place] [address] [address] Logan Payne MCHC 34.1 g/dl Normal 29.9-35.[address] [facility] Comment on above: Performed By: #### T SH, BNP, CMP, LIPID, T7 #### [facility] [address] [place] [address] [address] Logan Payne MCV 100.0 fL Critically high 81.0-99.0 [facility] Comment on above: Performed By: #### T SH, BNP, CMP, LIPID, T7 #### [facility] [address] [place] [address] Dr. Logan Payne METAMYELOCYTE # Normal [facility] Comment on above: Performed By: #### T SH, BNP, CMP, LIPID, T7 #### [facility] [address] [place] [address] Dr. Logan Payne METAMYELOCYTE % Normal [facility] Comment on above: Performed By: #### T SH, BNP, CMP, LIPID, T7 #### [facility] [address] [place] [address] Dr. Logan Payne MONOM# 1.85 103/ul Critically high 0.30-0.80 [facility] Comment on above: Performed By: #### T SH, BNP, CMP, LIPID, T7 #### [facility] [address] [place] [address] Dr. Logan Payne MONOM% 14.0 % Critically high 1.7-12.0 [facility] Comment on above: Performed By: #### T SH, BNP, CMP, LIPID, T7 #### [facility] [address] [place] [address] Dr. Logan Payne MPV 9.3 fL Critically low 9.5-13.5 [facility] Comment on above: Performed By: #### T SH, BNP, CMP, LIPID, T7 #### [facility] [address] [place] [address] Dr. Logan Payne MYELOCYTE # Normal [facility] Comment on above: Performed By: #### T SH, BNP, CMP, LIPID, T7 #### [facility] [address] [place] [address] [address] Logan Payne MYELOCYTE % Normal [facility] Comment on above: Performed By: #### T SH, BNP, CMP, LIPID, T7 #### [facility] [address] [place] [address] [address] Logan Payne NRBC Normal [facility] Comment on above: Performed By: #### T SH, BNP, CMP, LIPID, T7 #### [facility] [address] [place] [address] [address] Logan Payne PLT 219 103/ul Normal 150-[address] [facility] Comment on above: Performed By: #### T SH, BNP, CMP, LIPID, T7 #### [facility] [address] [place] [address] [address] Logan Payne RBC 3.96 106/ul Critically low 4.20-5.40 [facility] Comment on above: Performed By: #### T SH, BNP, CMP, LIPID, T7 #### [facility] [address] [place] [address] [address] Logan Payne RDW 13.2 % Normal 11.0-15.[address] [facility] Comment on above: Performed By: #### T SH, BNP, CMP, LIPID, T7 #### [facility] [address] [place] [address] [address] Logan Payne SEG # 7.92 103/ul Critically high 1.40-6.50 [facility] Comment on above: Performed By: #### T SH, BNP, CMP, LIPID, T7 #### [facility] [address] [place] [address] [address] Logan Payne SEG % 60.0 % Normal 43.0-75.[address] [facility] Comment on above: Performed By: #### T SH, BNP, CMP, LIPID, T7 #### [facility] [address] [place] [address] [address] Logan Payne WBC 13.2 103/ul Critically high 4.0-11.0 [facility] Comment on above: Performed By: #### T SH, BNP, CMP, LIPID, T7 #### [facility] [address] [place] [address] [address] Logan Payne CULTURE BLOODon 06-09-2022 Microscopic examination of blood, culture Culture Observations: NO GROWTH AT 5 DAYS. Isolate 1 BC_BA_NA Normal [facility] Comment on above: Performed By: #### T SH, BNP, CMP, LIPID, T7 #### [facility] [address] [place] [address] [address] Logan Payne Microscopic examination of blood, culture Culture Observations: NO GROWTH AT 5 DAYS. Isolate 1 BC_BA_NA Normal [facility] Comment on above: Performed By: #### T SH, BNP, CMP, LIPID, T7 #### [facility] [address] [place] [address] [address] Logan Payne Complete Blood Count Auto Di ffon 06-09-2022 Basophils (Bld) [#/Vol] 0.1 10*3/uL Normal 0.0-0.2 [facility] Comment on above: Result Comment: PERF ORMED BY: [place] [address] PATHOLOGIST CLOUD [employer]OM[employer] TESTER PILAR VILLARREAL M.D. Performed By: #### L IPID, [address] eA #### [facility] [address] [place] [address] [place] Basophils/100 WBC (Bld) 0.4 % Normal . F [facility] Comment on above: Performed By: #### L IPID, A1C [facility] eA #### [facility] [address] [place] [address] [place] Eosinophils (Bld) [#/Vol] 0.1 10*3/uL Normal 0.0-0.45 [facility] Comment on above: Performed By: #### L IPID, [address] eA #### [facility] [address] [place] [address] [place] Eosinophils/100 WBC (Bld) 0.5 % Normal . [facility] Comment on above: Performed By: #### L IPID, A1C WTH eA #### [address] Erythrocyte distribution width (RBC) [Ratio] 13.8 % Normal 11.9-15.3 [facility] Comment on above: Performed By: #### L IPID, A1C WTH eA #### [address] Hematocrit (Bld) [Volume fraction] 41.0 % Normal 34.0-46.4 [facility] Comment on above: Performed By: #### L IPID, A1C WT eA #### [address] Hemoglobin (Bld) [Mass/Vol] 13.6 g/dL Normal 11.8-15.4 [facility] Comment on above: Performed By: #### L IPID, A1C WTH eA #### [address] Lymphocytes (Bld) [#/Vol] 2.3 10*3/uL Normal 1.00-4.8 [facility] Comment on above: Performed By: #### L IPID, A1C WT eA #### [address] Lymphocytes/100 WBC (Bld) 17.2 % Normal . [facility] Comment on above: Performed By: #### L IPID, A1C WT eA #### [place] [address] [place] MCH (RBC) [Entitic mass] 34.4 pg High 24.7-34.3 [facility] Comment on above: Performed By: #### L IPID, A1C WTH eA #### [place] [address] [place] MCV (RBC) [Entitic vol] 103.6 fL High 80-100 F [facility] Comment on above: Performed By: #### L IPID, A1C WTH eA #### [address] Mean Corpuscular HGB Conc 33.2 g/dL Normal 32.0-35.0 [facility] Comment on above: Performed By: #### L IPID, [address] eA #### [facility] [address] [place] [address] [place] Monocytes (Bld) [#/Vol] 1.3 10*3/uL High 0.0-0.8 [facility] Comment on above: Performed By: #### L IPID, [address] eA #### [facility] [address] [place] [address] [place] Monocytes/100 WBC (Bld) 10.1 % Normal . F [facility] Comment on above: Performed By: #### L IPID, [address] eA #### [place] [address] [place] Neutrophils (Bld) [#/Vol] 9.5 10*3/uL High 1.8-7.7 [facility] Comment on above: Performed By: #### L IPID, [address] eA #### [place] [address] [place] Neutrophils/100 WBC (Bld) 71.8 % Normal . [facility] Comment on above: Performed By: #### L IPID, [address] eA #### [place] [address] [place] NRBC% 0.0 /100{WBC} Normal 0-0.5 [facility] Comment on above: Performed By: #### L IPID, [address] eA #### [facility] [address] [place] [address] [place] Platelet mean volume (Bld) [Entitic vol] 8.1 fL Normal 6.3-10.7 [facility] Comment on above: Performed By: #### L IPID, [address] eA #### [facility] [address] [place] [address] [place] Platelets (Bld) [#/Vol] 199 10*3/uL Normal 150-450 [facility] Comment on above: Performed By: #### L IPID, [address] eA #### [facility] [address] [place] [id number] [place] RBC (Bld) [#/Vol] 3.96 10*6/uL Normal 3.60-5.00 [facility] Comment on above: Performed By: #### L IPID, A1C [facility] eA #### [facility] [address] [place] [address] [facility] WBC (Bld) [#/Vol] 13.2 10*3/uL High 3.8-11.6 [facility] Comment on above: Performed By: #### L IPID, A1C [facility] eA #### [facility] [address] Covid-19 PCR ([facility])on 05-15 SARS-CoV-2 (COVID-19) RNA CAROL+probe Ql (Unsp spec) Not detected Normal NOT DETECTED [facility] Comment on above: Result Comment: When diagnostic [...] for this test is supported by the [place] of [employer] and Human Service's declaration that [...] T SH, BNP, CMP, LIPID, T7 #### [facility] [address] [place] [address] [address] Logan Payne ECG 12 lead ECGon 06-09-2022 ECG 12 lead ECG [facility] Main [place] [address] [place] [address] Electrocardiograph Report Signed Patient: Abdirahman Gomez MR#: [id number] : 1940 Acct:[id number] Age/Sex: 81 / F ADM Date: 06/09/22 Loc: 3T Room: [address] [place] [address] Type: DIS IN Attending Dr: Frida De [...] By Yoav Prado MD 1 08/10/21 1709 [facility] echo transthoracicon [facility] echo transthoracic [facility] [place] [address] Echocardiogram Signed Patient: Abdirahman Gomez MR#: [id number] : 1940 Acct:[id number] Age/Sex: 81 / F ADM Date: 06/09/22 Loc: 3T Room: [address] [place] [address] Type: DIS IN Attending Dr: Frida De [...] By: Yoav Prado MD 06/09/22 1653 Normal [facility] Folate [Mass/volume] in Seru m or PlasmaOrdered By: Nathaniel Castillo on 06-09-2022 Folate [Mass/Vol] ng/mL >5.9 [facility] [place] Comment on above: Folate reference ran ge: >5.9 ng/mlThe WHO technical consultation on folate and vitamin a72pvmnteudsedn has determined that folate concentrations lessthan 4 ng/ml are considered deficient. LACTATE/LACTIC ACIDon 2021 Lactate [Moles/Vol] 1.1 mmol/L Normal 0.4-1.9 [facility] Comment on above: Performed By: #### T SH, BNP, CMP, LIPID, T7 #### [facility] [address] [place], [place] [address] Dr. Logan Payne Lactate [Moles/Vol] 1.8 mmol/L Normal 0.4-1.9 [facility] Comment on above: Performed By: #### T SH, BNP, CMP, LIPID, T7 #### [facility] [address] [place], [place] [address] Dr. Logan Payne Laboratory - Chemistry and C hemistry - challengeOrdered By: Nathaniel Castillo on 06-09-2022 Cobalamin (Vitamin B12) [Mass/Vol] 480 pg/mL 180-914 [facility] Laboratory - Chemistry and C hemistry - challengeOrdered By: Rossi Valdez on 06-09-2022 Magnesium [Mass/Vol] 1.8 mg/dL 1.6-2.6 [facility] Magnesiumon 06-09-2022 Magnesium [Mass/Vol] 1.8 mg/dL Normal 1.6-2.6 [facility] Comment on above: Result Comment: PERF ORMED BY: [place] [address] PATHOLOGIST [employer] PILAR VILLARREAL M.D. Performed By: #### L IPID, A1C WTH eA #### [place] [address] [place] OCC BLD IMMUNO SCREENon 05-15 OCCULT BLOOD Positive Abnormal NEGATIVE [facility] Comment on above: Performed By: #### T SH, BNP, CMP, LIPID, T7 #### [facility] [address] [place] [address] [address] Logan Payne PROF 14(COMP METB)on 022 Albumin [Mass/Vol] 3.3 g/dL Critically low 3.4-5.[address] [facility] Comment on above: Performed By: #### C MP, HSTROPN #### [facility] [address] [place] [address] Dr. Logan Payne Albumin/Globulin [Mass ratio] 0.8 {ratio} Normal [facility] Comment on above: Performed By: #### C MP, HSTROPN #### [facility] [address] [place] [address] [address] Logan Payne ALP [Catalytic activity/Vol] 95 U/L Normal 46-[address] [facility] Comment on above: Performed By: #### C MP, HSTROPN #### [facility] [address] [place] [address] [address] Logan Payne ALT [Catalytic activity/Vol] 36 U/L Normal 14-[address] [facility] Comment on above: Performed By: #### C MP, HSTROPN #### [facility] [address] [place] [address] [address] Logan Payne Anion gap [Moles/Vol] 14.7 mmol/L Normal [facility] Comment on above: Performed By: #### C MP, HSTROPN #### [facility] [address] [place] [address] [address] Logan Payne AST [Catalytic activity/Vol] 75 U/L Critically high 15-[address] [facility] Comment on above: Performed By: #### C MP, HSTROPN #### [facility] [address] [place] [address] [address] Logan Payne Bilirubin [Mass/Vol] 0.4 mg/dL Normal 0.2-1.[address] [facility] Comment on above: Performed By: #### C MP, HSTROPN #### [facility] [address] [place] [address] Dr. Logan Payne Calcium [Mass/Vol] 8.7 mg/dL Normal 8.5-10.1 [facility] Comment on above: Performed By: #### C MP, HSTROPN #### [facility] [address] [place] [address] Dr. Logan Payne Chloride [Moles/Vol] 103 mmol/L Normal 98-[address] [facility] Comment on above: Performed By: #### C MP, HSTROPN #### [facility] [address] [place] [address] Dr. Logan Payne CO2 [Moles/Vol] 21.3 mmol/L Normal 21.0-32.0 [facility] Comment on above: Performed By: #### C MP, HSTROPN #### [facility] [address] [place] [address] Dr. Logan Payne Creatinine [Mass/Vol] 0.83 mg/dL Normal 0.55-1.[address] [facility] Comment on above: Performed By: #### C MP, HSTROPN #### [facility] [address] [place] [address] Dr. Logan Payne EGFR-AF CITIZ[place] >60 Normal >=60 [facility] Comment on above: Performed By: #### C MP, HSTROPN #### [facility] [address] [place] [address] Dr. Logan Payne EGFR-NON AF CITIZEN [place] >60 Normal >=[address] [facility] Comment on above: Performed By: #### C MP, HSTROPN #### [facility] [address] [place] [address] Dr. Logan Payne Globulin (S) [Mass/Vol] 4.1 g/dL Normal [facility] Comment on above: Performed By: #### C MP, HSTROPN #### [facility] [address] [place] [address] Dr. Logan Payne Glucose [Mass/Vol] 141 mg/dL Critically high 74-106 [facility] Comment on above: Performed By: #### C MP, HSTROPN #### [facility] [address] [place] [address] Dr. Logan Payne Potassium [Moles/Vol] 4.0 mmol/L Normal 3.5-5.[address] [facility] Comment on above: Performed By: #### C JOSE, HSTROPN #### [facility] [address] [place] [address] Dr. Logan Payne Protein [Mass/Vol] 7.4 g/dL Normal 6.4-8.2 [facility] Comment on above: Performed By: #### C JOSE, HSTROPN #### [facility] [address] [place] [address] Dr. Logan Payne Sodium [Moles/Vol] 135 mmol/L Critically low 136-145 [facility] Comment on above: Performed By: #### C JOSE, HSTROPN #### [facility] [address] [place] [address] Dr. Logan Payne Urea nitrogen [Mass/Vol] 16.0 mg/dL Normal 7.0-18.[address] [facility] Comment on above: Performed By: #### C JOSE, HSTROPN #### [facility] [address] [place] [address] Dr. Logan Payne Urea nitrogen/Creatinine [Mass ratio] 19.3 mg/mg Normal [facility] Comment on above: Performed By: #### C MP, HSTROPN #### [facility] [address] [place] [address] Dr. Logan Payne PROTIMEon 06-09-2022 INR Coag (PPP) [Relative time] 0.98 {INR} Normal [facility] Comment on above: Performed By: #### T SH, BNP, CMP, LIPID, T7 #### [facility] [address] [place] [address] Dr. Logan Payne INR GUIDELINES SEE BELOW Normal [facility] Comment on above: Result Comment: FERCHO RED INR: 2.0 - 3.0 CONDITIONS NOT LISTED BELOW 2.5 - 3.5 FOR PROSTHETIC HEART VALVE REPLACEMENT 2.5 - 3.5 RECURRENT THROMBOSIS Performed By: #### T SH, BNP, CMP, LIPID, T7 #### [facility] [address] [place] [address] [address] Logan Payne PT Coag (PPP) [Time] 10.6 s Normal 9.0-11.[address] [facility] Comment on above: Performed By: #### T SH, BNP, CMP, LIPID, T7 #### [facility] [address] [place] [address] Dr. Logan Payne PTTon 06-09-2022 aPTT Coag (Bld) [Time] 30.0 s Normal 22.3-36.[address] [facility] Comment on above: Performed By: #### T SH, BNP, CMP, LIPID, T7 #### [facility] [address] [place] [address] Dr. Logan Payne TROPONIN, HIGH SENSITIVITYon 06-09-2022 HSTROP 8564.4 pg/mL Critically high 4.0-51.[address] [facility] Comment on above: Result Comment: CUT- OFF POINTS HAVE BEEN ESTABLISHED BASED ON THE FOURTH UNIVERSAL DEFINITIONS OF MYOCARDIAL INFARCTION. THE UPPER REFERENCE LIMIT (URL) OF TROPONIN, DEFINED THE 99TH PERCENTILE OF cTnI DISTRIBUTION IN A REFERENCE POPULATION, HAS BEEN CONFIRMED THE DECISION THRESHOLD FOR NM DIAGNOSIS. Performed By: #### T SH, BNP, CMP, LIPID, T7 #### [facility] [address] [place] [address] Dr. Logan Payne HSTROP 9385.6 pg/mL Critically high 4.0-51.[address] [facility] Comment on above: Result Comment: CUT- OFF POINTS HAVE BEEN ESTABLISHED BASED ON THE FOURTH UNIVERSAL DEFINITIONS OF MYOCARDIAL INFARCTION. THE UPPER REFERENCE LIMIT (URL) OF TROPONIN, DEFINED THE 99TH PERCENTILE OF cTnI DISTRIBUTION IN A REFERENCE POPULATION, HAS BEEN CONFIRMED THE DECISION THRESHOLD FOR NM DIAGNOSIS. Performed By: #### C MP, HSTROPN #### [facility] [address] [place], [place] [address] Dr. Logan Payne TYPE AND SCREENon 06-09-2022 TYPE AND SCREEN Negative Normal [facility] Comment on above: Performed By: #### T SH, BNP, CMP, LIPID, T7 #### [facility] [address] [place], [place] [address] Dr. Logan Payne Troponin I High Sensitivityo n 06-09-2022 Troponin I High Sensitivity 6364 pg/mL Off scale high 0-15 [facility] Comment on above: Result Comment: Resu lts called at 1303 on 06/09/22 PERFORMED BY: [place] [address] PATHOLOGIST [employer] PILAR VILLARREAL M.D. Performed By: #### L IPID, [address] eA #### [facility] [address] [place] [address] Troponin I High Sensitivity 6431 pg/mL Off scale high 0-15 [facility] Comment on above: Result Comment: Resu lts called at 1006 on 06/09/22 PERFORMED BY: [place] [address] PATHOLOGIST [employer] PILAR VILLARREAL M.D. Performed By: #### L IPID, [address] eA #### [facility] [address] [place] [address] Troponin I High Sensitivity 6373 pg/mL Off scale high 0-15 [facility] Comment on above: Result Comment: Resu lts called at 0710 on 06/09/22 PERFORMED BY: [place] [address] PATHOLOGIST [employer] PILAR VILLARREAL M.D. Performed By: #### G LULS #### Point of Care testing , Vit. B12/Folate Profileon Cobalamin (Vitamin B12) [Mass/Vol] 480 pg/mL Normal 180-914 [facility] Comment on above: Order Comment: Comme nt addon Performed By: #### G CARLEENLS #### Point of Care testing , Folate > 22.3 Normal >5.9 [facility] Comment on above: Order Comment: Comme nt addon Result Comment: Niyah te reference range: >5.9 ng/ml The WHO technical consultation on folate and vitamin b12 deficiencies has determined that folate concentrations less than 4 ng/ml are considered deficient. PERFORMED BY: [facility] [address] [place] [address] PATHOLOGIST [employer] TE[employer] PILAR VILLARREAL M.D. Performed By: #### G KIRA #### Point of Care testing , BASIC METABOLIC PANELon 11-12 Calcium [Mass/Vol] 9.1 mg/dL Normal 8.6-10.3 [facility] Comment on above: Order Comment: No: D o not add to previous draw Performed By: #### 0 0071, 63448 #### [facility] [address] [place] [address], [place] Chloride [Moles/Vol] 104 mmol/L Normal 98-107 [facility] Comment on above: Order Comment: No: D o not add to previous draw Performed By: #### 0 0071, 88878 #### [facility] [address] [place] [address], [place] CO2 [Moles/Vol] 22 mmol/L Normal 21-31 [facility] Comment on above: Order Comment: No: D o not add to previous draw Performed By: #### 0 0071, 23492 #### [facility] [address] [place] [address], [place] Creatinine [Mass/Vol] 0.80 mg/dL Normal 0.60-1.20 [facility] Comment on above: Order Comment: No: D o not add to previous draw Performed By: #### 0 0071, 38205 #### [facility] [address] [place] [address], [place] GFR/1.73 sq M.predicted among blacks MDRD (S/P/Bld) [Vol rate/Area] mL/min/{1.73_m2} Normal >60 [facility] Comment on above: Order Comment: No: D o not add to previous draw Result Comment: Calc ulation may not be valid for patients over 70 years Performed By: #### 0 0071, 65345 #### [facility] [address] [place] [address], [place] GFR/1.73 sq M.predicted among non-blacks MDRD (S/P/Bld) [Vol rate/Area] mL/min/{1.73_m2} Normal >60 [facility] Comment on above: Order Comment: No: D o not add to previous draw Result Comment: Calc ulation may not be valid for patients over 70 years Performed By: #### 0 0071, 87919 #### [facility] [address] [place] [address], [place] Glucose [Mass/Vol] 99 mg/dL Normal 70-100 [facility] Comment on above: Order Comment: No: D o not add to previous draw Performed By: #### 0 0071, 65668 #### [facility] [address] [place] [address], [place] Potassium [Moles/Vol] 4.2 mmol/L Normal 3.5-5.1 [facility] Comment on above: Order Comment: No: D o not add to previous draw Performed By: #### 0 0071, 29077 #### [facility] [address] [place] [address], [place] Sodium [Moles/Vol] 137 mmol/L Normal 136-145 [facility] Comment on above: Order Comment: No: D o not add to previous draw Performed By: #### 0 0071, 52804 #### [facility] [address] [place] [address], [place] Urea nitrogen [Mass/Vol] 11 mg/dL Normal 7-25 [facility] Comment on above: Order Comment: No: D o not add to previous draw Performed By: #### 0 0071, 63616 #### [facility] [address] [place] [address], [facility] CBC COMPLETE BLOOD COUNTon 0 11-25-2021 Erythrocyte distribution width (RBC) [Ratio] 12.9 % Normal 11.5-15.0 [facility] Comment on above: Order Comment: No: D o not add to previous draw Performed By: #### 3 2043 #### [facility] [address] [place] [address], [facility] Hematocrit (Bld) [Volume fraction] 42.7 % Normal 36.0-45.0 [facility] Comment on above: Order Comment: No: D o not add to previous draw Performed By: #### 3 2043 #### [facility] [address] [place] [address], [facility] Hemoglobin (Bld) [Mass/Vol] 14.3 g/dL Normal 12.0-15.0 [facility] Comment on above: Order Comment: No: D o not add to previous draw Performed By: #### 3 2043 #### [facility] [address] [facility] [address], [facility] MCH (RBC) [Entitic mass] 33.9 pg High 27.0-33.0 [facility] Comment on above: Order Comment: No: D o not add to previous draw Performed By: #### 3 2043 #### [facility] [address] [place] [address], [facility] MCHC (RBC) [Mass/Vol] 33.5 g/dL Normal 32.0-35.0 [facility] Comment on above: Order Comment: No: D o not add to previous draw Performed By: #### 3 2043 #### [facility] [address] [place] [address], [facility] MCV (RBC) [Entitic vol] 101.2 fL High 82.0-98.0 T [facility] Comment on above: Order Comment: No: D o not add to previous draw Performed By: #### 3 2043 #### [facility] [address] [place] [address], [facility] Nucleated RBC/100 WBC (Bld) [Ratio] 0 % Normal 0-0 [facility] Comment on above: Order Comment: No: D o not add to previous draw Performed By: #### 3 2043 #### [facility] [address] [place] [address], [place] PLAT CNT 211 10*3/uL Normal 150-400 [facility] Comment on above: Order Comment: No: D o not add to previous draw Performed By: #### 3 2043 #### [facility] [address] [place] [address], [facility] RBC (Bld) [#/Vol] 4.22 10*6/uL Normal 3.80-5.00 [facility] Comment on above: Order Comment: No: D o not add to previous draw Performed By: #### 3 2043 #### [facility] [address] [place] [address], [facility] WBC (Bld) [#/Vol] 11.25 10*3/uL High 4.00-10.60 [facility] Comment on above: Order Comment: No: D o not add to previous draw Performed By: #### 3 2043 #### [facility] [address] [place] [address], [facility] HEMOGLOBIN A1Con 11-25-2021 Glucose [Moles/Vol] 128 mmol/L Normal [facility] Comment on above: Order Comment: If no t done in EDNo: Do not add to previous draw Performed By: #### 3 2043 #### [facility] [address] [place] [address], [facility] HbA1c (Bld) [Mass fraction] 6.1 % High 4.0-6.0 [facility] Comment on above: Order Comment: If no t done in EDNo: Do not add to previous draw Performed By: #### 3 2043 #### [address] [address], [facility] MAGNESIUM BLOODon 11-25-2021 Magnesium [Mass/Vol] 1.8 mg/dL Low 1.9-2.7 [facility] Comment on above: Order Comment: No: D o not add to previous draw Performed By: #### 0 0071, 07443 #### [facility] [address] [place] [address], [facility] PORTABLE CHEST 1 VIEWon 11-12 PORTABLE CHEST 1 VIEW [facility] Department of Radiology [address] [place] [id number] Patient Name: ABDIRAHMAN GOMEZ : 1940 Sex: F Age: Race: White Pt. Location: [id number] Patient Status: I Ordered Date: 11/25/2021 10:05:00 [...] edema. Electronically signed: Melania Lay. Transcribed by: [email or web address], User Resident: Electronically Signed by: MELANIA LAY @ 11/25/2021 10:44 AM Normal [facility] Comment on above: Order Comment: Pneum othorax Cardiovascular Lab Reporton 11-24-2021 Cardiovascular Lab Report [facility] [id number] Physician: Sarabjit Vicente MD Department of Service Date: 11/24/2021 Medicine Birthdate: 1940 Division of Room #: 3AB [id number] Cardiology Adult Cardiovascular Services [place] [address] Cardiovascular Laboratory Report PACEMAKER IMPLANT PROCEDURE NOTE DATE OF PROCEDURE: 11/24/2021 PERFORMING PHYSICIAN: Dr. Sarabjit Vicente CONSENT: Patient LOCATION: EP Lab PROCEDURE PERFORMED: 1. Implantation of pacemaker ([employer]). 2. Ultrasound guided venous access INDICATIONS: [...] history of hypertension, who was transferred from 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 She had syncope from this and subsequently was transferred here. Since the admission to [facility], she had a fairly recently good [...] using modified seldinger technique using a 5 [place] micro-puncture needle on two occasions and 0.35 [...] pocket was created for the device. 6 [place] Safesheaths were placed over the wire. An active fixation [employer] pacing lead was then delivered through the 6Fsheath to the right ventricle. After confirmation of lead position on orthogonal views ([place] and AUSTRIAN) to confirm septal position, the screw was activated, and the lead was placed in the right ventricular mid cavity towards the septum. After confirmation of good sensing parameters, injury pattern and pacing thresholds, 10V pacing was done and no diaphragmatic stimulation was noted. It was then secured in the pocket using three 1-0 Silk sutures. Then an active fixation [employer] lead was delivered through the 6Fsheath to the right atrial appendage. After confirmation of lead position on orthogonal views ([place] and AUSTRIAN), the screw was activated. After confirmation of [...] immediate procedural complications were noted. Device info: Occipital Accolade MRI Model# L311 Serial# [id number] RA lead: Model# INGEVITY 7840 (45cms) Serial# [id number] SensinmV Threshold: 0.8V@0.4ms Impedance: 590 Ohms RV lead: Model# INGEVITY 7841 (52cms) Serial# [id number] Sensin.5mV Threshold: 0.4V@0.4ms Impedance: 1125 Ohms POST PROCEDURE EXAM: Patient was hemodynamically stable. COMPLICATIONS: None. ESTIMATED BLOOD LOSS: 15cc IMPRESSION: 1. Successful dual chamber pacemaker with excellent pacing and sensing parameters. RECOMMENDATIONS: 1 Occlusive dressing to be removed after 2 weeks. 2. Do not wet the incision for 7 days. 3. No lifti (more content not included)... Normal [facility] APTTon 11-23-2021 aPTT Coag (Bld) [Time] 30.9 s Normal 25.0-35.0 [facility] Comment on above: Order Comment: No: [...] PURPOSE. Performed By: #### 3 2043 #### [facility] [address] [facility]. [address] BASIC METABOLIC PANELon 11-12 Calcium [Mass/Vol] 9.5 mg/dL Normal 8.6-10.3 [facility] Comment on above: Order Comment: No: D o not add to previous draw Performed By: #### 1 0070, 25442 #### [facility] [address] [facility] [address], [facility] Chloride [Moles/Vol] 104 mmol/L Normal 98-107 [facility] Comment on above: Order Comment: No: D o not add to previous draw Performed By: #### 1 69, 09699 #### [facility] [address] [place] [address], [place] CO2 [Moles/Vol] 21 mmol/L Normal 21-31 [facility] Comment on above: Order Comment: No: D o not add to previous draw Performed By: #### 1 69, 06303 #### [facility] [address] [place] [address], [place] Creatinine [Mass/Vol] 0.80 mg/dL Normal 0.60-1.20 [facility] Comment on above: Order Comment: No: D o not add to previous draw Performed By: #### 1 69, 25805 #### [facility] [address] [place] [address], [place] GFR/1.73 sq M.predicted among blacks MDRD (S/P/Bld) [Vol rate/Area] mL/min/{1.73_m2} Normal >60 [facility] Comment on above: Order Comment: No: D o not add to previous draw Result Comment: Calc ulation may not be valid for patients over 70 years Performed By: #### 1 69, 98863 #### [facility] [address] [place] [address], [place] GFR/1.73 sq M.predicted among non-blacks MDRD (S/P/Bld) [Vol rate/Area] mL/min/{1.73_m2} Normal >60 [facility] Comment on above: Order Comment: No: D o not add to previous draw Result Comment: Calc ulation may not be valid for patients over 70 years Performed By: #### 1 0, 37178 #### [facility] [address] [place] [address], [place] Glucose [Mass/Vol] 109 mg/dL High 70-100 [facility] Comment on above: Order Comment: No: D o not add to previous draw Performed By: #### 1 69, 06645 #### [facility] [address] [place] [address], [facility] Potassium [Moles/Vol] 3.9 mmol/L Normal 3.5-5.1 [facility] Comment on above: Order Comment: No: D o not add to previous draw Performed By: #### 1 69, 39612 #### [facility] [address] [place] [address], [place] Sodium [Moles/Vol] 138 mmol/L Normal 136-145 [facility] Comment on above: Order Comment: No: D o not add to previous draw Performed By: #### 1 69, 52860 #### [facility] [address] [place] [address], [place] Urea nitrogen [Mass/Vol] 15 mg/dL Normal 7-25 [facility] Comment on above: Order Comment: No: D o not add to previous draw Performed By: #### 1 69, 89090 #### [facility] [address] [place] [address], [facility] CBC COMPLETE BLOOD COUNTon - Erythrocyte distribution width (RBC) [Ratio] 12.8 % Normal 11.5-15.0 [facility] Comment on above: Order Comment: No: D o not add to previous draw Performed By: #### 3 2043 #### [facility] [address] [place] [address], [facility] Hematocrit (Bld) [Volume fraction] 41.9 % Normal 36.0-45.0 [facility] Comment on above: Order Comment: No: D o not add to previous draw Performed By: #### 3 2043 #### [facility] [address] [place] [address], [facility] Hemoglobin (Bld) [Mass/Vol] 14.1 g/dL Normal 12.0-15.0 [facility] Comment on above: Order Comment: No: D o not add to previous draw Performed By: #### 3 2043 #### [facility] [address] [place] [address], [facility] MCH (RBC) [Entitic mass] 34.0 pg High 27.0-33.0 [facility] Comment on above: Order Comment: No: D o not add to previous draw Performed By: #### 3 2043 #### [facility] [address] [place] [address], [facility] MCHC (RBC) [Mass/Vol] 33.7 g/dL Normal 32.0-35.0 [facility] Comment on above: Order Comment: No: D o not add to previous draw Performed By: #### 3 2043 #### [facility] [address] [place] [address], [facility] MCV (RBC) [Entitic vol] 101.0 fL High 82.0-98.0 [facility] Comment on above: Order Comment: No: D o not add to previous draw Performed By: #### 3 2043 #### [facility] [address] [facility] [address], [facility] Nucleated RBC/100 WBC (Bld) [Ratio] 0 % Normal 0-0 [facility] Comment on above: Order Comment: No: D o not add to previous draw Performed By: #### 3 2043 #### [facility] [address] [facility] [place] [address], [facility] PLAT CNT 218 10*3/uL Normal 150-400 [facility] Comment on above: Order Comment: No: D o not add to previous draw Performed By: #### 3 2043 #### [facility] [address] [facility] [place] [address], [facility] RBC (Bld) [#/Vol] 4.15 10*6/uL Normal 3.80-5.00 [facility] Comment on above: Order Comment: No: D o not add to previous draw Performed By: #### 3 2043 #### [facility] [address] [place] [address], [facility] WBC (Bld) [#/Vol] 9.49 10*3/uL Normal 4.00-10.60 [facility] Comment on above: Order Comment: No: D o not add to previous draw Performed By: #### 3 2043 #### [facility] [address] [place] [address], [facility] MAGNESIUM BLOODon 11-23-2021 Magnesium [Mass/Vol] 2.0 mg/dL Normal 1.9-2.7 [facility] Comment on above: Order Comment: No: D o not add to previous draw Performed By: #### 1 0070, [id number] #### [facility] [address] POC SARS COV2 ANTIGEN NEGATI VEon 11-23-2021 POC SARS COV2 ANTIGEN NEG Negative Normal NEGATIVE [facility] Comment on above: Result Comment: Nega [...] antigen from SARS-CoV-2 in direct nasopharyngeal swab ([employer]APH[employer]N) specimens from individuals who are suspected of [...] Accreditation. Performed By: #### 3 2043 #### [facility] 3000 [facility]. [address] PROTHROMBIN TIMEon INR Coag (PPP) [Relative time] 1.03 {INR} Normal 0.91-1.16 [facility] Comment on above: Order Comment: No: [...] 1995;[id number]. Performed By: #### 3 2043 #### [facility] [address] [facility]. [address] PT Coag (PPP) [Time] 13.5 s Normal 12.3-14.8 [facility] Comment on above: Order Comment: No: D o not add to previous draw Result Comment: ALL RESULTS MUST BE INTERPRETED WITH RESPECT TO BLOOD DRAWING ARTIFACT OR DILUTION ERROR OF ANTICOAGULANT AT THE TIME OF SAMPLING. Performed By: #### 3 2043 #### [facility] [address] BASIC METABOLIC PANELon 11-12 Calcium [Mass/Vol] 9.5 mg/dL Normal 8.6-10.3 [facility] Comment on above: Order Comment: No: D o not add to previous draw Performed By: #### 1 0070, 51791, 71612 #### [facility] [address] [place] [address], [place] Chloride [Moles/Vol] 104 mmol/L Normal 98-107 [facility] Comment on above: Order Comment: No: D o not add to previous draw Performed By: #### 1 0070, 88029, 42046 #### [facility] [address] [place] [address], [place] CO2 [Moles/Vol] 21 mmol/L Normal 21-31 [facility] Comment on above: Order Comment: No: D o not add to previous draw Performed By: #### 1 0070, 70060, 60962 #### [facility] [address] [place] [address], [place] Creatinine [Mass/Vol] 0.98 mg/dL Normal 0.60-1.20 [facility] Comment on above: Order Comment: No: D o not add to previous draw Performed By: #### 1 0070, 08004, 03385 #### [facility] [address] [place] [address], [place] eGFR- non- 54 ml/min/1.73sq m Abnormal >60 [facility] Comment on above: Order Comment: No: D o not add to previous draw Result Comment: Calc ulation may not be valid for patients over 70 years Performed By: #### 1 0070, 16983, 44467 #### [facility] [address] [place] [address], [place] GFR/1.73 sq M.predicted among blacks MDRD (S/P/Bld) [Vol rate/Area] mL/min/{1.73_m2} Normal >60 [facility] Comment on above: Order Comment: No: D o not add to previous draw Result Comment: Calc ulation may not be valid for patients over 70 years Performed By: #### 1 0, 56591, 56373 #### [facility] [address] [place] [address], [facility] Glucose [Mass/Vol] 110 mg/dL High 70-100 [facility] Comment on above: Order Comment: No: D o not add to previous draw Performed By: #### 1 0, 10546, 50196 #### [facility] [address] [place] [address], [facility] Potassium [Moles/Vol] 4.9 mmol/L Normal 3.5-5.1 [facility] Comment on above: Order Comment: No: D o not add to previous draw Performed By: #### 1 0, 58097, 68934 #### [facility] [address] [place] [address], [facility] Sodium [Moles/Vol] 137 mmol/L Normal 136-145 [facility] Comment on above: Order Comment: No: D o not add to previous draw Performed By: #### 1 0, 09174, 82811 #### [facility] [address] [facility] [address] Urea nitrogen [Mass/Vol] 18 mg/dL Normal 7-25 [facility] Comment on above: Order Comment: No: D o not add to previous draw Performed By: #### 1 0, 03961, 78258 #### [facility] [address] [facility] [address], [facility] CBC W/DIFFon 11-22-2021 ABS IMM GRANS 0.1 10*3/uL Normal 0.0-0.2 [facility] Comment on above: Performed By: #### 3 2043 #### [facility] [address] [facility] [address], [facility] ABS NEUTROPHILS 6.8 10*3/uL Normal 1.6-7.6 [facility] Comment on above: Performed By: #### 3 2043 #### [facility] [address] [place] [address], [facility] Basophils (Bld) [#/Vol] 0.1 10*3/uL Normal 0.0-0.2 [facility] Comment on above: Performed By: #### 3 2043 #### [facility] [address] [place] [address], [facility] Basophils/100 WBC (Bld) 0.8 % Normal 0.0-1.0 [facility] Comment on above: Performed By: #### 3 2043 #### [facility] [address] [place] [address], [facility] Eosinophils (Bld) [#/Vol] 0.4 10*3/uL Normal 0.0-0.5 [facility] Comment on above: Performed By: #### 3 2043 #### [facility] [address] [place] [address], [facility] Eosinophils/100 WBC (Bld) 3.6 % Normal 0.0-6.0 [facility] Comment on above: Performed By: #### 3 2043 #### [facility] [address] [facility] [address] Erythrocyte distribution width (RBC) [Ratio] 12.6 % Normal 11.5-15.0 [facility] Comment on above: Performed By: #### 3 2043 #### [facility] [address] [facility] [address], [facility] Hematocrit (Bld) [Volume fraction] 42.3 % Normal 36.0-45.0 [facility] Comment on above: Performed By: #### 3 2043 #### [facility] [address] [facility] [address], [facility] Hemoglobin (Bld) [Mass/Vol] 14.9 g/dL Normal 12.0-15.0 [facility] Comment on above: Performed By: #### 3 2043 #### [facility] [address] [place] [address], [facility] IMMATURE GRANS 0.5 % Normal 0.0-1.0 [facility] Comment on above: Performed By: #### 3 2043 #### [facility] [address] [place] [address], [facility] Lymphocytes (Bld) [#/Vol] 2.3 10*3/uL Normal 1.2-4.0 [facility] Comment on above: Performed By: #### 3 2043 #### [facility] [address] [facility] [place] [address], [facility] Lymphocytes/100 WBC (Bld) 21.8 % Normal 20.0-45.0 [facility] Comment on above: Performed By: #### 3 2043 #### [facility] [address] [facility] [place] [address], [facility] MCH (RBC) [Entitic mass] 34.3 pg High 27.0-33.0 [facility] Comment on above: Performed By: #### 3 2043 #### [facility] [address] [facility] [place] [address], [facility] MCHC (RBC) [Mass/Vol] 35.2 g/dL High 32.0-35.0 [facility] Comment on above: Performed By: #### 3 2043 #### [facility] [address] [facility] [place] [address], [facility] MCV (RBC) [Entitic vol] 97.2 fL Normal 82.0-98.0 [facility] Comment on above: Performed By: #### 3 2043 #### [facility] [address] [facility] [place] [address], [facility] Monocytes (Bld) [#/Vol] 0.8 10*3/uL Normal 0.1-1.0 [facility] Comment on above: Performed By: #### 3 2043 #### [facility] [address] [place] [address], [facility] MONOS 7.8 % Normal 5.0-12.0 [facility] Comment on above: Performed By: #### 3 2043 #### [facility] [address] [place] [address], [facility] Neutrophils/100 WBC (Bld) 65.5 % Normal 40.0-72.0 [facility] Comment on above: Performed By: #### 3 2043 #### [facility] [address] [place] [address], [facility] Nucleated RBC/100 WBC (Bld) [Ratio] 0 % Normal 0-0 [facility] Comment on above: Performed By: #### 3 2043 #### [facility] [address] [place] [address], [facility] PLAT CNT 231 10*3/uL Normal 150-400 [facility] Comment on above: Performed By: #### 3 2043 #### [facility] [address] [facility] [place] [address], [facility] RBC (Bld) [#/Vol] 4.35 10*6/uL Normal 3.80-5.00 [facility] Comment on above: Performed By: #### 3 2043 #### [facility] [address] [facility] [place] [address], [facility] WBC (Bld) [#/Vol] 10.35 10*3/uL Normal 4.00-10.60 [facility] Comment on above: Performed By: #### 3 2043 #### [facility] [address] [facility] [place] [id number], [facility] MAGNESIUM BLOODon 11-22-2021 Magnesium [Mass/Vol] 2.1 mg/dL Normal 1.9-2.7 [facility] Comment on above: Order Comment: No: D o not add to previous draw Performed By: #### 1 0070, 85996, 89233 #### [facility] [address] [place] [address], [facility] TROPONIN-Ion 11-22-2021 Troponin I.cardiac [Mass/Vol] 0.00 ng/mL Normal 0.00-0.04 [facility] Comment on above: Order Comment: No: D o not add to previous draw Result Comment: REFE RENCE RANGES: 0.00 - 0.04 ng/ml NORMAL 0.05 - 0.50 ng/ml INDETERMINATE > 0.50 ng/ml CONSISTENT WITH AN M.I. Performed By: #### 1 0070, 43296, 77813 #### [facility] [address] [place], [place] [id number] [place] [address] Troponin I.cardiac [Mass/Vol] 0.01 ng/mL Normal 0.00-0.04 [facility] Comment on above: Order Comment: No: D o not add to previous draw Result Comment: REFE RENCE RANGES: 0.00 - 0.04 ng/ml NORMAL 0.05 - 0.50 ng/ml INDETERMINATE > 0.50 ng/ml CONSISTENT WITH AN M.I. Performed By: #### 3 5200 #### [facility] [address] ECHOCARDIO M/2D COMPLETEon 0 11-05-2021 ECHOCARDIO M/2D COMPLETE Patient: ABDIRAHMAN GOMEZ Exam Date: 11/05/2021 : 1940 Gender:F Ordering : VENUS TONG Admission #: [id number] Family : DR IRISH FAUSTIN . Order #: [id number] CLICK HERE TO VIEW EXAM ECHOCARDIOGRAM REPORT [...] Lopez M.D. on 11/06/2021 at 13:[address] [facility] MG MAMM SCREEN 3D MILANA CADon 10-27-2021 MG MAMM SCREEN 3D MILANA CAD Patient: ABDIRAHMAN GOMEZ Exam Date: 10/27/2021 : 1940 Gender:F Ordering : DR IRISH FAUSTIN . Admission #: [id number] Family : Order #: [id number] CLICK HERE TO VIEW EXAM RADIOLOGY REPORT [...] Treatments None Family Cancers None LOCATION: [facility] BREAST COMPOSITION: Almost entirely fatty. FINDINGS: DIAGNOSTIC [...] MD on 10/27/2021 at 11:44 Normal [facility] INSULINon 06-28-2021 Insulin 12.1 uIU/mL Normal 2.6-24.[address] [facility] Comment on above: Performed By: #### I NSULIN #### [facility] [address] [place] [address] Dr. Logan Payne BNPon 06-27-2021 Natriuretic peptide B (Bld) [Mass/Vol] 350.0 pg/mL Normal <=1,800.[address] [facility] Comment on above: Performed By: #### T SH, BNP, CMP, LIPID, T7 #### [facility] [address] [place] [address] Dr. Logan Payne CBC AUTO DIFFon 06-27-2021 BASO # 0.1 103/ul Normal 0.0-0.[address] [facility] Comment on above: Performed By: #### T SH, BNP, CMP, LIPID, T7 #### [facility] [address] [place] [address] Dr. Logan Payne Basophils/100 WBC (Bld) 1.1 % Normal 0.2-2.0 [facility] Comment on above: Performed By: #### T SH, BNP, CMP, LIPID, T7 #### [facility] [address] [place] [address] Dr. Logan Payne EO # 0.3 103/ul Normal 0.0-0.[address] [facility] Comment on above: Performed By: #### T SH, BNP, CMP, LIPID, T7 #### [facility] [address] [place] [address] Dr. Logan Payne Eosinophils/100 WBC (Bld) 2.8 % Normal 0.9-7.[address] [facility] Comment on above: Performed By: #### T SH, BNP, CMP, LIPID, T7 #### [facility] [address] [place] [address] Dr. Logan Payne Erythrocyte distribution width (RBC) [Ratio] 12.9 % Normal 11.0-15.[address] [facility] Comment on above: Performed By: #### T SH, BNP, CMP, LIPID, T7 #### [facility] [address] [place] [address] Dr. Logan Payne Hematocrit (Bld) [Volume fraction] 46.6 % Normal 36.0-48.[address] [facility] Comment on above: Performed By: #### T SH, BNP, CMP, LIPID, T7 #### [facility] [address] [place] [address] Dr. Logan Payne Hemoglobin (Bld) [Mass/Vol] 15.0 g/dL Normal 12.0-16.[address] [facility] Comment on above: Performed By: #### T SH, BNP, CMP, LIPID, T7 #### [facility] [address] [place] [address] Dr. Logan Panye IG # 0.05 10e3/ul Critically high 0.00-0.03 [facility] Comment on above: Performed By: #### T SH, BNP, CMP, LIPID, T7 #### [facility] [address] [place] [address] Dr. Logan Payne IG % 0.5 % Normal 0.0-0.[address] [facility] Comment on above: Performed By: #### T SH, BNP, CMP, LIPID, T7 #### [facility] [address] [place] [address] Dr. Logan Payne LYMPH # 2.8 103/ul Normal 1.2-3.8 [facility] Comment on above: Performed By: #### T SH, BNP, CMP, LIPID, T7 #### [facility] [address] [place] [address] Dr. Logan Payne Lymphocytes/100 WBC (Bld) 27.4 % Normal 20.5-60.0 [facility] Comment on above: Performed By: #### T SH, BNP, CMP, LIPID, T7 #### [facility] [address] [place] [address] Dr. Logan Payne MANUAL DIFF REQ NO Normal [facility] Comment on above: Performed By: #### T SH, BNP, CMP, LIPID, T7 #### [facility] [address] [place] [address] Dr. Logan Payne MCH (RBC) [Entitic mass] 33.9 pg Normal 26.7-34.[address] [facility] Comment on above: Performed By: #### T SH, BNP, CMP, LIPID, T7 #### [facility] [address] [place] [address] Dr. Logan Payne MCHC (RBC) [Mass/Vol] 32.2 g/dL Normal 29.9-35.2 [facility] Comment on above: Performed By: #### T SH, BNP, CMP, LIPID, T7 #### [facility] [address] [place] [address] Dr. Logan Payne MCV (RBC) [Entitic vol] 105.2 fL Critically high 81.0-99 .0 [facility] Comment on above: Performed By: #### T SH, BNP, CMP, LIPID, T7 #### [facility] [address] [place] [address] Dr. Logan Payne MONO # 0.7 103/ul Normal 0.3-0.[address] [facility] Comment on above: Performed By: #### T SH, BNP, CMP, LIPID, T7 #### [facility] [address] [place] [address] Dr. Logan Payne Monocytes/100 WBC (Bld) 7.2 % Normal 1.7-12.0 [facility] Comment on above: Performed By: #### T SH, BNP, CMP, LIPID, T7 #### [facility] [address] [place] [address] Dr. Logan Payne NEUT # 6.3 103/ul Normal 1.4-6.[address] [facility] Comment on above: Performed By: #### T SH, BNP, CMP, LIPID, T7 #### [facility] [address] [place] [address] Dr. Logan Payne Neutrophils/100 WBC (Bld) 61.0 % Normal 43.0-75.[address] [facility] Comment on above: Performed By: #### T SH, BNP, CMP, LIPID, T7 #### [facility] [address] [place] [address] Dr. Logan Payne Platelet mean volume (Bld) [Entitic vol] 9.3 fL Critically low 9.5-13.[address] [facility] Comment on above: Performed By: #### T SH, BNP, CMP, LIPID, T7 #### [facility] [address] [place] [address] Dr. Logan Payne PLT 245 103/ul Normal 150-[address] [facility] Comment on above: Performed By: #### T SH, BNP, CMP, LIPID, T7 #### [facility] [address] [place] [address] Dr. Logan Payne RBC 4.43 106/ul Normal 4.20-5.[address] [facility] Comment on above: Result Comment: Macr ocytosis 1+ Performed By: #### T SH, BNP, CMP, LIPID, T7 #### [facility] [address] [place] [address] Dr. Logan Payne WBC 10.3 103/ul Normal 4.0-11.[address] [facility] Comment on above: Performed By: #### T SH, BNP, CMP, LIPID, T7 #### [facility] [address] [place] [address] Dr. Logan Payne FREE THYROXINE INDEX T7on FTI 3.[address] [facility] Comment on above: Performed By: #### T SH, BNP, CMP, LIPID, T7 #### [facility] [address] [place] [address] [address] Logan Payne T3U 31.0 % Normal 23.5-40.[address] [facility] Comment on above: Performed By: #### T SH, BNP, CMP, LIPID, T7 #### [facility] [address] [place] [address] [address] Logan Payne T4 [Mass/Vol] 9.70 ug/dL Normal 5.53-11.00 [facility] Comment on above: Performed By: #### T SH, BNP, CMP, LIPID, T7 #### [facility] [address] [place] [address] [address] Logan Payne GLYCOHEMOGLOBIN A1Con 2021 ADA RECOMMENDATION ADA THERAPEUTIC TARGET 6.0 - 7.0 ACTION SUGGESTED > 7.0 [facility] Comment on above: Performed By: #### A 1C #### [facility] [address] [place] [address] [address] Logan Payne Glucose [Mass/Vol] 126 mg/dL Normal [facility] Comment on above: Performed By: #### A 1C #### [facility] [address] [place] [address] [address] Logan Payne HbA1c (Bld) [Mass fraction] 6.0 % Normal <=6.[address] [facility] Comment on above: Performed By: #### A 1C #### [facility] [address] [place] [address] [address] Logan Payne IRONon 06-27-2021 Iron [Mass/Vol] 90.0 ug/dL Normal 37.0-170.0 [facility] Comment on above: Performed By: #### I GRANT #### [facility] [address] [address] [address] Logan Payne LIPID PROFILEon 06-27-2021 CHOL-HDL RATIO NORM SEE BELOW Normal [facility] Comment on above: Result Comment: 3.3 - 4.4 LOW RISK 4.4 - 7.1 AVERAGE RISK 7.1 - 11.0 MODERATE RISK >11.0 HIGH RISK Performed By: #### T SH, BNP, CMP, LIPID, T7 #### [facility] [address] [address] [address] Logan Payne Cholesterol [Mass/Vol] 209 mg/dL Critically high <=200 [facility] Comment on above: Performed By: #### T SH, BNP, CMP, LIPID, T7 #### [facility] [address] [place] [address] [address] Logan Payne Cholesterol in HDL [Mass/Vol] 62 mg/dL Normal [facility] Comment on above: Performed By: #### T SH, BNP, CMP, LIPID, T7 #### [facility] [address] [place] [address] Dr. Logan Payne Cholesterol in LDL [Mass/Vol] 104.2 mg/dL Normal [facility] Comment on above: Performed By: #### T SH, BNP, CMP, LIPID, T7 #### [facility] [address] [place] [address] [address] Logan Payne Cholesterol.total/Gabriela sterol in HDL [Mass ratio] 3.4 {ratio} Normal [facility] Comment on above: Performed By: #### T SH, BNP, CMP, LIPID, T7 #### [facility] [address] [place] [address] Dr. Logan Payne HDL NORMAL > or = 60 mg/dl - LO W CARDIOVASCULAR RISK <40 mg/dl - HIGH CARDIOVASCULAR RISK Normal [facility] Comment on above: Performed By: #### T SH, BNP, CMP, LIPID, T7 #### [facility] [address] [place] [address] [address] Logan Payne LDL CALC NORMAL SEE BELOW Normal [facility] Comment on above: Result Comment: <100 mg/dl OPTIMAL 100 - 129 mg/dl NEAR OR ABOVE OPTIMAL 130 - 159 mg/dl BORDERLINE HIGH 160 - 189 mg/dl HIGH >190 mg/dl VERY HIGH Performed By: #### T SH, BNP, CMP, LIPID, T7 #### [facility] [address] [place] [address] [address] Logan Payne Triglyceride [Mass/Vol] 214 mg/dL Critically high <=[address] [facility] Comment on above: Performed By: #### T SH, BNP, CMP, LIPID, T7 #### [facility] [address] [place] [address] [address] Logan Payne VLDL CALC 42.8 mg/dL Normal [facility] Comment on above: Performed By: #### T SH, BNP, CMP, LIPID, T7 #### [facility] [address] [place] [address] [address] Logan Payne PROF 14(COMP METB)on 022 Albumin [Mass/Vol] 4.3 g/dL Normal 3.5-5.0 [facility] Comment on above: Performed By: #### T SH, BNP, CMP, LIPID, T7 #### [facility] Laboratory [address] [address] [address] Logan Payne Albumin/Globulin [Mass ratio] 1.0 {ratio} Normal [facility] Comment on above: Performed By: #### T SH, BNP, CMP, LIPID, T7 #### [facility] Laboratory [address] [address] [address] Logan Payne ALP [Catalytic activity/Vol] 108 U/L Normal 38-[address] [facility] Comment on above: Performed By: #### T SH, BNP, CMP, LIPID, T7 #### [facility] Laboratory [address] [address] [address] Logan Payne ALT [Catalytic activity/Vol] 59 U/L Critically high 9-[address] [facility] Comment on above: Performed By: #### T SH, BNP, CMP, LIPID, T7 #### [facility] Laboratory [address] [address] [address] Logan Payne Anion gap [Moles/Vol] 16.0 mmol/L Normal [facility] Comment on above: Performed By: #### T SH, BNP, CMP, LIPID, T7 #### [facility] Laboratory [address] [address] [address] Logan Payne AST [Catalytic activity/Vol] 52 U/L Critically high 14-[address] [facility] Comment on above: Performed By: #### T SH, BNP, CMP, LIPID, T7 #### [facility] Laboratory [address] [address] [address] Logan Payne Bilirubin [Mass/Vol] 0.3 mg/dL Normal 0.2-1.[address] [facility] Comment on above: Performed By: #### T SH, BNP, CMP, LIPID, T7 #### [facility] Laboratory [address] [address] [address] Logan Payne Calcium [Mass/Vol] 9.9 mg/dL Normal 8.4-10.2 [facility] Comment on above: Performed By: #### T SH, BNP, CMP, LIPID, T7 #### [facility] Laboratory [address] [place] [address] Dr. Logan Payne Chloride [Moles/Vol] 105 mmol/L Normal 98-[address] [facility] Comment on above: Performed By: #### T SH, BNP, CMP, LIPID, T7 #### [facility] Laboratory [address] [place] [address] Dr. Logan Payne CO2 [Moles/Vol] 21.6 mmol/L Critically low 22.0-30.[address] [facility] Comment on above: Performed By: #### T SH, BNP, CMP, LIPID, T7 #### [facility] Laboratory [address] [place] [address] Dr. Logan Payne Creatinine [Mass/Vol] 1.01 mg/dL Normal 0.52-1.[address] [facility] Comment on above: Performed By: #### T SH, BNP, CMP, LIPID, T7 #### [facility] Laboratory [address] [place] [address] Dr. Logan Payne EGFR-AF [place]IZEN [place] >60 Normal >=60 [facility] Comment on above: Performed By: #### T SH, BNP, CMP, LIPID, T7 #### [facility] Laboratory [address] [place] [address] Dr. Logan Payne EGFR-NON AF [place]IZEN [place] 53 mL/min/1.73m2 Critically low >=[address] [facility] Comment on above: Performed By: #### T SH, BNP, CMP, LIPID, T7 #### [facility] Laboratory [address] [address] [address] Logan Payne Globulin (S) [Mass/Vol] 4.1 g/dL Normal [facility] Comment on above: Performed By: #### T SH, BNP, CMP, LIPID, T7 #### [facility] Laboratory [address] [address] [address] Logan Payne Glucose [Mass/Vol] 117 mg/dL Critically high 74-106 [facility] Comment on above: Performed By: #### T SH, BNP, CMP, LIPID, T7 #### [facility] Laboratory [address] [place] [address] Dr. Logan Payne Potassium [Moles/Vol] 4.6 mmol/L Normal 3.4-5.[address] [facility] Comment on above: Performed By: #### T SH, BNP, CMP, LIPID, T7 #### [facility] Laboratory [address] [address] [address] Logna Payne Protein [Mass/Vol] 8.4 g/dL Critically high 6.1-8.2 [facility] Comment on above: Performed By: #### T SH, BNP, CMP, LIPID, T7 #### [facility] Laboratory [address] [place] [address] Dr. Logan Payne Sodium [Moles/Vol] 138 mmol/L Normal 137-145 [facility] Comment on above: Performed By: #### T SH, BNP, CMP, LIPID, T7 #### [facility] Laboratory [address] [place] [address] Dr. Logan Payne Urea nitrogen [Mass/Vol] 18.0 mg/dL Critically high 7.0-17.[address] [facility] Comment on above: Performed By: #### T SH, BNP, CMP, LIPID, T7 #### [facility] Laboratory [address] [place] [address] Dr. Logan Payne Urea nitrogen/Creatinine [Mass ratio] 17.8 mg/mg Normal [facility] Comment on above: Performed By: #### T SH, BNP, CMP, LIPID, T7 #### [facility] Laboratory [address] [place], [place] [address] Dr. Logan Payne TSHon 06-27-2021 TSH 1.510 uIU/mL Normal 0.470-4.680 [facility] Comment on above: Performed By: #### T SH, BNP, CMP, LIPID, T7 #### [facility] Laboratory [address] [place], [place] [address] Dr. Logan Payne TSH RANGE SEE BELOW Normal [facility] Comment on above: Result Comment: <0.3 4 UIU/ml HYPERTHYROID 0.34-5.60 UIU/ml EUTHYROID >5.60 UIU/ml HYPOTHYROID Performed By: #### T SH, BNP, CMP, LIPID, T7 #### [facility] Laboratory [address] [address] [address] Logan Payne Vital Signs Date Time Vital Sign Value Performing Clinician Faci lity 06-25-2022 11:18-0500 Body temperature 97.8 [degF] MD Irish Faustin Work Phone: [facility] 06-25-2022 11:18-0500 Diastolic blood pressure 70 mm[Hg] MD Irish Faustin Work Phone: [facility] 06-25-2022 11:18-0500 Heart rate 69 /min MD Irish Faustin Work Phone: [facility] 06-25-2022 11:18-0500 SaO2% (BldA) [Mass fraction] 94 % MD Irish Faustin Work Phone: [facility] 06-25-2022 11:18-0500 Systolic blood pressure 140 mm[Hg] MD Irish Faustin Work Phone: [facility] 06-25-2022 04:17-0500 Respiratory rate 18 /min MD Irish Faustin Work Phone: [facility] 06-24-2022 07:18-0500 Body height 157.48 cm MD Irish Faustin Work Phone: [facility] 06-22-2022 11:19-0500 Body weight 67.2 kg MD Irish Faustin Work Phone: [facility] 06-16-2022 16:00-0500 Body temperature 97.6 [degF] MD Irish Faustin Work Phone: [facility] 06-16-2022 16:00-0500 Diastolic blood pressure 75 mm[Hg] MD Irish Faustin Work Phone: [facility] 06-16-2022 16:00-0500 Heart rate 72 /min MD Irish Faustin Work Phone: [facility] 06-16-2022 16:00-0500 Respiratory rate 16 /min MD Irish Faustin Work Phone: [facility] 06-16-2022 16:00-0500 SaO2% (BldA) [Mass fraction] 96 % MD Irish Faustin Work Phone: [facility] 06-16-2022 16:00-0500 Systolic blood pressure 127 mm[Hg] MD Irish Faustin Work Phone: [facility] 06-16-2022 06:00-0500 Body weight 68.8 kg MD Irish Faustin Work Phone: [facility] 06-11-2022 15:23-0500 Body height 157.48 cm MD Irish Faustin Work Phone: [facility] 06-09-2022 12:00-0500 Inhaled oxygen flow rate 2 L/min MD Irish Faustin Work Phone: [facility] Encounters Encounter Date Encounter Type Care Provider Facility Start: 06-27-2024 End: 06-27-2024 ambulatory [facility] Start: 04-17-2024 End: 04-17-2024 [facility] Start: 12-28-2023 End: 12-28-2023 ambulatory [facility] Start: 06-16-2022 End: 06-25-2022 Evaluation and management of inpatient Stiven Zaman Facility:[facility] Start: 06-16-2022 End: 06-25-2022 Evaluation and management of inpatient MD Irish Faustin Work Phone: [facility] Work Phone: Start: 06-13-[address] Yoav Prado Facility:[id number] Start: 06-11-[address] Irish Faustin Facility:[facility] Start: 06-09-[address] Irish Faustin Facility:[id number] Start: 06-09-2022 End: 06-16-2022 Evaluation and management of inpatient Chema Annia Facility:[facility] Start: 06-09-2022 End: 06-16-2022 Evaluation and management of inpatient MD Irish Faustin Work Phone: [facility] Work Phone: Start: 06-08-2022 End: 06-09-[address] IRISH FAUSTIN Facility:[facility] Start: 01-12-2022 ambulatory VENUS TONG Facility :[facility] Start: 11-27-2021 ambulatory VENUS TONG Facility :[facility] Start: 11-22-2021 End: 11-25-2021 Evaluation and management of inpatient PHYSICIAN UNKNOWN Facility:[facility] Start: 11-05-2021 End: 11-06-2021 ambulatory VENUS [...] Date Care Activity Detail Author Start: 06-25-2022 [facility] Start: 06-16-2022 [facility] Start: 06-16-2022 Hospital admission [facility] Start: 06-16-2022 Referral to clinical costumer [facility] Start: 06-16-2022 [facility] Start: 06-12-2022 Doppler ultrasonogra phy of bilateral carotid arteries US carotid doppler BI [facility] Start: 06-12-2022 US.doppler Carotid a rteries - bilateral [facility] Start: 06-09-2022 Hospital admission [facility] Patient Education Stroke (DC) [facility] Work Phone: Patient referral [facility] Work Phone: [facility] Payers Date Payer Category Payer Self-pay 1981 Medicare [id number] 1959 Medicare [id number] 1959 Private Health Insurance [id number] 1959 Self-pay [id number] 1940 Unknown [id number] 2.16.8 [id number] 1940 Unknown [id number] 2.16.84 [id number] 1940 Unknown [id number] 2.16.84 [id number] 1940 Unknown [id number] 2.16.84 [id number] 1940 Unknown [id number] 2.16.84 [id number] 1940 Unknown [id number] 2.16.84 [id number] 1940 Unknown [id number] 2.16.84 [id number] 1940 Unknown [id number] 2.16. [id number] 1940 Unknown [id number] 2.16. [id number] Unknown [id number] 2.16.8 [id number] Unknown [id number] 2.16.8 [id number] Social History Date Type Detail Facility Start: 06-09-2022 End: 06-17-2022 Tobacco smoking status NHIS Never smoked tobacco (finding) [facility] Start: 1940 Sex Assigned At Female F [facility] Goals Date Patient Goal Desired Activity /State Functional Status Date Assessment Result Facility 06-25-2022 Functional status Patient at Baseline [facility] Work Phone: 06-16-2022 Functional status Patient is Pro gressing Toward Baseline [facility] Work Phone: Mental Status Date Assessment Result Facility 06-25-2022 Cognitive function Cognitive Sta tus Patient at Baseline [facility] Work Phone: 06-16-2022 Cognitive function Cognitive Sta tus Patient is Progressing Toward Baseline [facility] Work Phone: Clinical Notes 11-26-2021 to 04-17-2024 Note Date & Type Note Facility 04-17-2024 Note [facility] Card[facility] Clinic Note Chief Complaint: Patient here for 1 year follow up CAD, PAF, carotid artery stenosis, and valve disorder. Had echo in May 2023. She denies worsening [place], palpitations, and bleeding on Eliquis. Does get intermittent pain she says from under her arms to her back and chest. She does get steroid injections from Dr. Faustin for back pain. HPI: Quinbyraina Gomez is a 83 y.o. female past [...] in the morning., Disp: , Rfl: HYDROcodone-acetaminophen ([place]) 5-325 mg tablet, Take 5-325 tablets by [...] 10 mg tablet, Disp: , Rfl: omega 6-rkj-gfq-fish oil (Fish OiL) 1,000 mg (120 mg-180 [...] no carotid brui (more content not included)... [facility] 06-24-2022 Discharge summary Note Date/Time June 24, 2022 12:11pm [facility] [address] [place] [address] Discharge Summary Signed Patient: Abdirahman Gomez MR#: [id number] : 1940 Acct:[id number] Age/Sex: 81 / F Adm Date: 3 Loc: Room: [address] [place] [address]: Stiven Zaman MD Copies to: [...] lobe. She presented to outside facility around [place] with several days of generalized weakness. Her troponins were elevated. She was transferred to [facility]. Cardiology was consulted, did not feel [...] blood in the stool on admission to [facility], consistent with lower GI bleed. She was [...] ADLs. She will be discharged home with [facility] home health services tomorrow. She already [...] Plan Discharge Plan Patient Disposition: Home Health [facility] Activity: Ambulate as Tolerated Diet: Low-Sodium and Low-Cholesterol Comment: Heart Healthy 3-4gm Sodium Additional Instructions: -Code Status: Full Code -Activity: Ambulate as tolerated -Diet: Heart Healthy 3-4gm Sodium, low cholesterol -Follow feeding strategies: Sit upright 90 degrees, pacing/slow rate, alternate liquids/solids. Your Home Health agency is [facility] ( ). They will contact you [...] <Electronically signed by KIM Crowell> 06/25/22 1308 [facility] Work Phone: 1(584) 241-271401-11-2023 Hospital Discharge instructionsAmbulatory Orders* Initiate Home Health Time Frame: 06/24/22, Location: Determined By Patient Additional Instructions -Code Status: Full Code -Activity: Ambulate as tolerated -Diet: Heart Healthy 3-4gm Sodium, low cholesterol -Follow feeding strategies: Sit upright 90 degrees, pacing/slow rate, alternate liquids/solids. Your Home Health agency is [email or web address] ( ). They will contact you within [...] office to inform them prior to your appointment.[facility] Work Phone: 1(154) 216-571001-10-2023 Progress note Author Stiven Zaman [facility] June 23, 2022 9:35pm Note Date/Time June 22, 2022 11 :35am [facility] [address] [place] [address] Physiatry(Rehab) Progress Note Signed Patient: Abdirahman Gomez MR#: [id number] : 1940 Acct:[id number] Age/Sex: 81 / F Adm Date: 3 Loc: 5T Room: 9F3222-7 Type: ADM IN Attending Dr: Stiven Zaman [...] lobe. She presented to outside facility around [place] with several days of generalized weakness. Her troponins were elevated. She was transferred to [facility]. Cardiology was consulted, did not feel [...] blood in the stool on admission to [facility], consistent with lower GI bleed. She was [...] mg 06/16/22 18:36 Bisacodyl 10 Mg Supp.Rect WY 06/16/23 18:35 DAILY PRN Constipation Carvedilol 12.5 mg 06/16/22 21:00 06/22/22 09:13 Carvedilol 12.5 Mg Tablet PO 06/16/23 20:59 12.5 mg BID JAK Administration Docusate Sodium 100 mg 06/16/22 18:36 Docusate 100 Mg Capsule PO 06/16/23 18:35 BID PRN Constipation Docusate Sodium 283 mg 06/16/22 18:36 Docusate Enema 283 Mg/5 Ml Enema WY 06/16/23 18:35 DAILY PRN Constipation Furosemide 20 [...] mcg DAILY JAK Administration Assessment/Plan <Lori Crowell, [employer] SURVEYOR - Last Filed: 06/22/22 11:45> Assessment/Plan (1) [...] tizanidine with h/o afib. Chronic pain received [place] 5/[address] Faustin. Will change from q4h to twice daily as at home. OARRS reviewed. Bowel and bladder: Continent. Skin: No pressure ulcers Sleep: Optimize sleep / wake. DVT prophylaxis: Covered with Eliquis. Functional status: Ambulatory. Needs assist. Left hemiplegia. Impaired endurance. Discharge planning: Home 7-10 days. I spent greater than 15 minutes for services, including lnnv-ud-hdpp encounter with the patient, discussion of the case, plan of care, and exam; and goebfby-md-qzcp activities, such as reviewing pertinent industrial rehabilitation consultant documentation, recent therapy notes, laboratory and radiology studies, and discussion of case with care team including physician, nursing, case loader operator, and therapists. More than 50 % of [...] tizanidine with h/o afib. Chronic pain received [place] 5/[address] Faustin. Will change from q4h to twice daily as at home. OARRS reviewed. Bowel and bladder: Continent. Skin: No pressure ulcers Sleep: Optimize sleep / wake. DVT prophylaxis: Covered with Eliquis. Functional status: Ambulatory. Needs assist. Left hemiplegia. Impaired endurance. Discharge planning: Home end of week I spent greater than 15 minutes for services, including lqrl-kv-jifq encounter with the patient, discussion of the case, plan of care, and exam; and hnvzmtp-wl-nhrc activities, such as reviewing pertinent industrial rehabilitation consultant documentation, recent therapy notes, laboratory and radiology studies, and discussion of case with care team including physician, nursing, case loader operator, and therapists. More than 50 % of time was spent on patient/family counseling or coordination ofcare. Decision Plan: I completed a substantive portion of this encounter, the medical decision makingportion of this note in its entirety, including Allied health note review, nursing note review, industrial rehabilitation consultant note review, discussion with nursing and case management, and more than 50% of my time was spent on counseling and coordination of care, time spent 25 minutes Patient was personally seen by me, Dr. Zaman, on the day of encounter, reviewed the history and the relevant portions of the chart, including current orders, allied health and industrial rehabilitation consultant notes, labs/imaging and performed smith elements of exam and I formulated the plan of care and facilitated the medical decision making. Documented By: Stiven Zaman MD 06/22/22 1800 Signed By: <Electronically signed by Stiven Zaman MD> [id number] <Electronically signed by KIM Crowell> 06/22/22 1140 [facility] Work Phone: 1(995) 622-432701-10-2023 Progress note Author Stiven Zaman [facility] June 23, 2022 9:25pm Note Date/Time June 23, 2022 1 2:28pm [facility] [address] [place] [address] Physiatry(Rehab) Progress Note Signed Patient: Abdirahman Gomez MR#: [id number] : 1940 Acct:[id number] Age/Sex: 81 / F Adm Date: 3 Loc: Room: [address] [place] [address] Type: ADM IN Attending Dr: Stiven Zaman [...] lobe. She presented to outside facility around [place] with several days of generalized weakness. Her troponins were elevated. She was transferred to [facility]. Cardiology was consulted, did not feel [...] blood in the stool on admission to [facility], consistent with lower GI bleed. She was [...] % (Auto) 55.7 Lymph % (Auto) 31.9 [place] % (Auto) 8.4 Eos % (Auto) 3.2 Baso % (Auto) 0.8 Nucleat RBC Rel Count 0.1 Neut # (Auto) 4.5 Lymph # (Auto) 2.6 [place] # (Auto) 0.7 Eos # (Auto) 0.3 [...] mg 06/16/22 18:36 Bisacodyl 10 Mg Supp.Rect WY 06/16/23 18:35 DAILY PRN Constipation Carvedilol 12.5 mg 06/16/22 21:00 06/23/22 10:00 Carvedilol 12.5 Mg Tablet PO 06/16/23 20:59 12.5 mg BID JAK Administration Docusate Sodium 100 mg 06/16/22 18:36 Docusate 100 Mg Capsule PO 06/16/23 18:35 BID PRN Constipation Docusate Sodium 283 mg 06/16/22 18:36 Docusate Enema 283 Mg/5 Ml Enema WY 06/16/23 18:35 DAILY PRN Constipation Furosemide 20 [...] tizanidine with h/o afib. Chronic pain received [place] 5/[address] Faustin. Will change from q4h totwice daily as at home. OARRS reviewed. Bowel and bladder: Continent. Skin: No pressure ulcers Sleep: Optimize sleep / wake. DVT prophylaxis: Covered with Eliquis. Functional status: Ambulatory. Needs assist. Left hemiplegia. Impaired endurance. Discharge planning: Home Wednesday or . I spent greater than 15 minutes for services, including sdho-fw-jyor encounter with the patient, discussion of the case, plan of care, and exam; and obuuqho-ro-nlfd activities, such as reviewing pertinent industrial rehabilitation consultant documentation, recent therapy notes, laboratory and radiology studies, and discussion of case with care team including physician, nursing, case loader operator, and therapists. More than 50 % of [...] tizanidine with h/o afib. Chronic pain received [place] 5/[address] Faustin. Will change from q4h to twice daily as at home. OARRS reviewed. Bowel and bladder: Continent. Skin: No pressure ulcers Sleep: Optimize sleep / wake. DVT prophylaxis: Covered with Eliquis. Functional status: Ambulatory. Needs assist. Left hemiplegia resolved. Impairedendurance. Discharge planning: Home Wednesday or , pending FI. I spent greater than 15 minutes for services, including buln-hn-lyic encounter with the patient, discussion of the case, plan of care, and exam; and fydbfql-hu-phlw activities, such as reviewing pertinent industrial rehabilitation consultant documentation, recent therapy notes, laboratory and radiology studies, and discussion of case with care team including physician, nursing, case loader operator, and therapists. More than 50 % of time was spent on patient/family counseling or coordination ofcare. Decision Plan: I completed a substantive portion of this encounter, the medical decision makingportion of this note in its entirety, including Allied health note review, nursing note review, industrial rehabilitation consultant note review, discussion with nursing and case management, and more than 50% of my time was spent on counseling and coordination of care, time spent 25 minutes Patient was personally seen by me, Dr. Zaman, on the day of encounter, reviewed the history and the relevant portions of the chart, including current orders, allied health and industrial rehabilitation consultant notes, labs/imaging and performed smith elements of exam and I formulated the plan of care and facilitated the medical decision making. Documented By: Stiven Zaman MD 06/23/221220 Signed By: <Electronically signed by Stiven Zaman MD> 06/23/222124 <Electronically signed by KIM Crowell> 06/23/228 [facility] Work Phone: 1(618) 169-185001-06-2023 Progress note Author Stiven Zaman [facility] June 19, 2022 3:19pm Note Date/Time June 19, 2022 3: 19pm [facility] [address] [place] [address] Physiatry(Rehab) Progress Note Signed Patient: Abdirahman Gomez MR#: [id number] : 1940 Acct:[id number] Age/Sex: 81 / F Adm Date: 3 Loc: Room: 7V5530-9 Type: ADM IN Attending Dr: Stiven Zaman [...] lobe. She presented to outside facility [place] with several days of generalized weakness. Her troponins were elevated. She was transferred to [facility]. Cardiology was consulted, did not feel [...] blood in the stool on admission to [facility], consistent with lower GI bleed. She was [...] 05:00 06/19/22 08:30 Narrative: General: cooperative, comfortable HENWA Head: normal to inspection Eyes General: appearance [...] mg 06/16/22 18:36 Bisacodyl 10 Mg Supp.Rect WY 06/16/23 18:35 DAILY PRN Constipation Carvedilol 12.5 mg 06/16/22 21:00 06/19/22 08:26 Carvedilol 12.5 Mg Tablet PO 06/16/23 20:59 12.5 mg BID JAK Administration Docusate Sodium 100 mg 06/16/22 18:36 Docusate 100 Mg Capsule PO 06/16/23 18:35 BID PRN Constipation Docusate Sodium 283 mg 06/16/22 18:36 Docusate Enema 283 Mg/5 Ml Enema [place] 06/16/23 18:35 DAILY PRN Constipation Furosemide 20 [...] tizanidine with h/o afib. Chronic pain received [place] 5/[address] Faustin. Will change [...] Allied health note review, nursing note review, industrial rehabilitation consultant note review, discussion with nursing and case management, and more than 50% of my time was spent on counseling and coordination of care, time spent 35 minutes Patient was personally seen by me, Dr. Zaman, on the day of encounter, reviewed the history and the relevant portions of the chart, including current orders, allied health and industrial rehabilitation consultant notes, labs/imaging and performed smith elements of exam and I formulated the plan of care and facilitated the medical decision making. Documented By: Stiven Zaman MD 06/19/22 151 Signed By: <Electronically signed by Stiven Zaman MD> 06/19/22 1519 [facility] Work Phone: 1([phone]) 463-367501-05-2023 Progress note Author Stiven Zaman [facility] June 18, 2022 12:49pm Note Date/Time June 18, 2022 12 :49pm [facility] [address] [place] [address] Physiatry(Rehab) Progress Note Signed Patient: Abdirahman Gomez MR#: [id number] : 1940 Acct:[id number] Age/Sex: 81 / F Adm Date: 3 Loc: Room: 8U6217-6 Type: ADM IN Attending Dr: Stiven Zaman [...] lobe. She presented to outside facility around [place] with several days of generalized weakness. Her troponins were elevated. She was transferred to [facility]. Cardiology was consulted, did not feel [...] blood in the stool on admission to [facility], consistent with lower GI bleed. She was [...] 05:00 06/18/22 05:00 Narrative: General: cooperative, comfortable HENWA Head: normal to inspection Eyes General: appearance [...] mg 06/16/22 18:36 Bisacodyl 10 Mg Supp.Rect WY 06/16/23 18:35 DAILY PRN Constipation Carvedilol 12.5 mg 06/16/22 21:00 06/18/22 07:49 Carvedilol 12.5 Mg Tablet PO 06/16/23 20:59 12.5 mg BID JAK Administration Docusate Sodium 100 mg 06/16/22 18:36 Docusate 100 Mg Capsule PO 06/16/23 18:35 BID PRN Constipation Docusate Sodium 283 mg 06/16/22 18:36 Docusate Enema 283 Mg/5 Ml Enema WY 06/16/23 18:35 DAILY PRN Constipation Furosemide 20 [...] tizanidine with h/o afib. Chronic pain received [place] 5/[address] Faustin. Will change [...] Allied health note review, nursing note review, industrial rehabilitation consultant note review, discussion with nursing and case management, and more than 50% of my time was spent on counseling and coordination of care, time spent 30 minutes Patient was personally seen by me, Dr. Zaman, on the day of encounter, reviewed the history and the relevant portions of the chart, including current orders, allied health and industrial rehabilitation consultant notes, labs/imaging and performed smith elements of exam and I formulated the plan of care and facilitated the medical decision making. Documented By: Stiven Zaman MD 06/18/22 124 Signed By: <Electronically signed by Stiven Zaman MD> 06/18/22 1249 [facility] Work Phone: 1(187) 595-415901-04-2023 History and physical note Author Stiven Zaman [facility] June 17, 2022 3:54pm Note Date/Time June 17, 2022 9: 40am [facility] [address] [place] [address] Physiatry (Rehab) H&P Signed Patient: Abdirahman Gomez MR#: [id number] : 1940 Acct:[id number] Age/Sex: 81 / F Adm Date: 3 Loc: 5T Room: 2U0487-1 Type: ADM IN Attending Dr: Stiven Zaman MD Copies to: MD Stiven Mccullough MD~ Date of Service: 06/17/2022 [facility] The patient was seen and examined on: 06/17/22 History of Present Illness: Ms. Gomez is a 81 year old female with history of CAD status post CABG, remote, atrial fibrillation, pacemaker placed, admitted to the rehabilitation unit with functional decline secondary to bilateral hemisphere cardioembolic stroke, right parietal lobe, left occipital lobe. She presented to outside facility around [place] with several days of generalized weakness. Her troponins were elevated. She was transferred to [facility]. Cardiology was consulted, did not feel [...] blood in the stool on admission to [place], consistent with lower GI bleed. She was cleared to remain on Eliquis. Etiologylikely mild diverticular bleed. On evaluation today she feels generally well. 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 She does not appreciate any significant weakness at this point. [facility] Vaccinated for COVID-19?: Yes Medical History A-fib [...] Bisacodyl (Bisacodyl 10 Mg Supp.Rect) 10 mg WY DAILY PRN PRN Reason: Constipation Stop: 06/16/23 18:35 Carvedilol (Carvedilol 12.5 Mg Tablet) 12.5 mg PO BID JAK Stop: 06/16/23 20:59 Last Admin: 06/17/22 08:04 Dose: 12.5 mg Docusate Sodium (Docusate 100 Mg Capsule) 100 mg PO BID PRN PRN Reason: Constipation Stop: 06/16/23 18:35 Docusate Sodium (Docusate Enema 283 Mg/5 Ml Enema) 283 mg WY DAILY PRN PRN Reason: Constipation Stop: 06/16/23 18:35 Furosemide (Furosemide 20 Mg Tablet) 20 mg PO DAILY JAK Stop: 06/17/23 08:59 Isosorbide Mononitrate (Isosorbide Mononitrate 24hr Er 60 Mg Tab.Er.24h) 60 mg PO DAILY [facility] Stop: 06/17/23 08:59 Lactulose (Lactulose 20 Gm/30 Ml Udc) 30 gm PO DAILY PRN PRN Reason: Constipation Stop: 06/16/23 18:35 Melatonin (Melatonin 5 Mg Tablet) 5 mg PO QHS PRN PRN Reason: Insomnia Stop: 06/16/23 18:34 Last Admin: 06/16/22 21:17 Dose: 5 mg Metformin HCl (Metformin 500 Mg Tablet) 500 mg PO DAILY [facility] Stop: 06/17/23 08:59 Montelukast Sodium (Montelukast 10 Mg Tablet) 10 mg PO HS [facility] Stop: 06/16/23 21:59 Last Admin: 06/16/22 21:17 Dose: 10 mg Omeprazole (Omeprazole 20 Mg Capsule.Dr) 40 mg PO DAILY [facility] Stop: 06/17/23 08:59 Last Admin: 06/17/22 08:07 Dose: 40 mg Polyethylene Glycol (Polyethylene Glycol 3350 17 Gm Powd.Pack) 17 gm PO DAILY JAK Stop: 06/17/23 08:59 Last Admin: 06/17/22 08:07 Dose: Not Given Potassium Chloride (Potassium Chloride Er 20 Meq Tab.Er.Prt) 20 meq PO DAILY [facility] Stop: 06/17/23 08:59 Last Admin: 06/17/22 08:07 Dose: 20 meq Pramipexole Dihydrochloride (Pramipexole 0.5 Mg Tablet) 0.5 mg PO HS [facility] Stop: 06/16/23 21:59 Last [...] 05:57 06/17/22 05:57 Narrative: General: cooperative, comfortable HENWA Head: normal to inspection Eyes General: appearance [...] % (Auto) 57.7 Lymph % (Auto) 29.1 [place] % (Auto) 9.4 Eos % (Auto) 2.4 Baso % (Auto) 1.4 Nucleat RBC Rel Count 0.0 Neut # (Auto) 6.3 Lymph # (Auto) 3.2 [place] # (Auto) 1.0 H Eos # (Auto) [...] mobility Anticipated interventions: Physician management, PT, OT, QUAHOGGER, , Dietitian, RehabNursing, Case management 2. Therapy Functional Outcome/Goal: Anticipate independent for transfers Anticipated interventions: Physician management, PT, OT, QUAHOGGER, Case management, Dietitian, Rehab Nursing 3. Therapy Functional Outcome/Goal: Anticipate independent for ambulation Anticipated interventions: Physician management, PT, OT, QUAHOGGER Case management, Dietitian, Rehab Nursing 4.Therapy Functional Outcome/Goal: Anticipate independent for self-care Anticipated interventions: Physician management, PT, OT, QUAHOGGER, Case management, Dietitian, Rehab Nursing 5.Therapy Functional Outcome/Goal: Anticipate independent for functional communication and swallowing Anticipated interventions: Physician management, PT, OT, QUAHOGGER, Case management, Dietitian, Rehab Nursing Required Therapy [...] additional therapy on as needed basis. Comments: QUAHOGGER to evaluate and treat patient?s cognition, language and communication skills, assess swallow function. Other: Dietitian, Rehab nursing, Wound, P&O, Neuropsychology as needed RATIONALE FOR IRF ADMISSION: Patient has both medical and functional complexities that require 24 hour daily monitoring and intervention from Lab Rn as well as other consulting physicians including internal medicine as well as 24 hour daily embosser apprentice nursing - for medical safe / optimal management. Patient requires interdisciplinary therapy team rehabilitation care including OT, PT, QUAHOGGER, SW, Psychology, Rehab Nursing, requires and can [...] tizanidine with h/o afib. Chronic pain received [place] 5/[address] Faustin. Will change [...] Allied health note review, nursing note review, industrial rehabilitation consultant note review, discussion with nursing and case management, and more than 50% of my time was spent on counseling and coordination of care, time spent 55 minutes Patient was personally seen by me, Dr. Zaman, on the day of encounter, reviewed the history and the relevant portions of the chart, including current orders, allied health and industrial rehabilitation consultant notes, labs/imaging and performed smith elements of exam and I formulated the plan of care and facilitated the medical decision making. Documented By: Stiven Zaman MD 06/17/22 7657 Signed By: <Electronically signed by Stiven Zaman MD> 06/17/22 6143 [facility] Work Phone: 1(186) 327-126801-04-2023 Consult note Author Rafik Massouh [facility] June 17, 2022 1:33pm Note Date/Time June 17, 2022 1: 33pm [facility] [address] [place] [address] Hospitalist Consult Note Signed Patient: Abdirahman Gomez MR#: [id number] : 1940 Acct:[id number] Age/Sex: 81 / F Adm Date: 3 Loc: Room: [address] [place] [address] Type: ADM IN Attending Dr: Stiven Zaman [...] mg 06/16/22 18:36 Bisacodyl 10 Mg Supp.Rect WY 06/16/23 18:35 DAILY PRN Constipation Carvedilol 12.5 mg 06/16/22 21:00 06/17/22 08:04 Carvedilol 12.5 Mg Tablet PO 06/16/23 20:59 12.5 mg BID JAK Administration Docusate Sodium 100 mg 06/16/22 18:36 Docusate 100 Mg Capsule PO 06/16/23 18:35 BID PRN Constipation Docusate Sodium 283 mg 06/16/22 18:36 Docusate Enema 283 Mg/5 Ml Enema WY 06/16/23 18:35 DAILY PRN Constipation Furosemide 20 [...] oriented to place, time and person HEENT: [place] conjunctiva and NL buccal mucosa Neck: Supple, [...] % (Auto) 57.7, Lymph % (Auto) 29.1, [place] % (Auto) 9.4, Eos % (Auto) 2.4, Baso % (Auto) 1.4, Nucleat RBC Rel Count 0.0, Neut # (Auto) 6.3, Lymph # (Auto) 3.2, [place] # (Auto) 1.0 H, Eos # (Auto) [...] out patient providers to obtain [facility] record entirely to follow up on illnesses, symptoms, abnormal findings that I have and have not addressed during this encounter and hospitalization in out patient setting. Documented By: Frida De La Cruz MD 06/17/22 1329 Signed By: <Electronically signed by Frida De La Cruz MD> 06/17/22 1333 [facility] Work Phone: 1(356) 153-444501-03-2023 Progress note Author Frida De La Cruz [facility] June 16, 2022 11:42am Note Date/Time June 16, 2022 11 :42am [facility] [address] [place] [id number] Progress Note Signed Patient: Abdirahman Gomez MR#: [id number] : 1940 Acct:[id number] Age/Sex: 81 / F Adm Date: 2 Loc: Room: [address] [place] [address] Type: ADM IN Attending Dr: Frida De [...] Frida De La Cruz MD> 06/16/22 1142 [facility] Work Phone: 1([phone] 606-678301-03-2023 Discharge summary Author Frida De La Cruz [facility] June 16, 2022 8:32am Note Date/Time June 16, 2022 8: 24am [facility] [address] [place] [id number] Discharge Summary Signed with Addenda Patient: Abdirahman Gomez MR#: [id number] : 1940 Acct:[id number] Age/Sex: 81 / F Adm Date: 2 Loc: 3T Room: 1C2177-[address]: Frida De La Cruz MD [...] fib with RVR. She was seen by biotechnician. She was recommended to be on Eliquis [...] % (Auto) 61.6, Lymph % (Auto) 27.7, [place] % (Auto) 6.9, Eos % (Auto) 2.6, Baso % (Auto) 1.2, Nucleat RBC Rel Count 0.1, Neut # (Auto) 6.6, Lymph # (Auto) 2.9, [place] # (Auto) 0.7, Eos # (Auto) 0.3, [...] oriented to place, time and person HEENT: [place] conjunctiva and NL buccal mucosa Neck: Supple, [...] Discharge Plan Discharge Plan Patient Disposition: Rehab [facility] Activity: No Activity Restriction Diet: [...] primary care provider to obtain [facility] records entirely to follow up on all of the abnormal physical, laboratory, and imaging findings that I have not addressed. Please return back to the emergency room or seek medical attention if your symptoms worsen or return. Discharging you from [facility] does not mean that your medical [...] by Frida De La Cruz MD> 06/16/22823 [facility] Work Phone: 1([phone]) 797-644101-02-2023 Progress note Author Frida De La Cruz [facility] June 15, 2022 8:38am Note Date/Time June 15, 2022 8: 38am [facility] [address] [place] [address] Hospitalist Progress Note Signed Patient: Abdirahman Gomez MR#: [id number] : 1940 Acct:[id number] Age/Sex: 81 / F Adm Date: 2 Loc: 3T Room: [address] [place] [address] Type: ADM IN Attending Dr: Frida De [...] oriented to place, time and person HEENT: [place] conjunctiva and NL buccal mucosa Neck: Supple, [...] Frida De La Cruz MD> 06/15/22 0838 [facility] Work Phone: 1([phone]) 746-841001-01-2023 Progress note Author Nathaniel Castillo [facility] June 14, 2022 2:53pm Note Date/Time June 14, 2022 2: 53pm [facility] [address] [place] [address] Hospitalist Progress Note Signed Patient: Abdirahman Gomez MR#: [id number] : 1940 Acct:[id number] Age/Sex: 81 / F Adm Date: 2 Loc: Room: [address] [place] [address] Type: ADM IN Attending Dr: Nathaniel Castillo [...] signed by Nathaniel Castillo MD> 06/14/22 145 [facility] Work Phone: 1(909) 774-942412-31-2022 Progress note Author Yoav Prado [facility] June 13, 2022 2:58pm Note Date/Time June 13, 2022 2:56pm [facility] [address] [place] [address] Cardiology Progress Note Signed Patient: Abdirahman Gomez MR#: [id number] : 1940 Acct:[id number] Age/Sex: 81 / F Adm Date: 2 Loc: Room: [address] [place] [address] Type: ADM IN Attending Dr: Nathaniel Castillo [...] signed by MD Yoav Prado> 06/13/22 1458 [facility] Work Phone: 1([phone]) 809-235512-31-2022 Progress note Author Nathaniel Castillo [facility] June 13, 2022 2:00pm Note Date/Time June 13, 2022 9:29am [facility] [address] [place] [address] Hospitalist Progress Note Signed Patient: Abdirahman Gomez MR#: [id number] : 1940 Acct:[id number] Age/Sex: 81 / F Adm Date: 2 Loc: Room: [address] [place] [address] Type: ADM IN Attending Dr: Nathaniel Castillo [...] of care and confirmed it with the resident/student/GRAPHIC DESIGN INTERN. Patient resting in bed comfortably. Denies chest [...] signed by DO RYAN Juarez> 06/13/22 1020 [facility] Work Phone: 1([phone]) 297-340512-30-2022 Progress note Author Nathaniel Castillo [facility] June 12, 2022 3:02pm Note Date/Time June 12, 2022 1:38pm [facility] [address] [place] [address] Hospitalist Progress Note Signed Patient: Abdirahman Gomez MR#: [id number] : 1940 Acct:[id number] Age/Sex: 81 / F Adm Date: 2 Loc: Room: [address] [place] [address] Type: ADM IN Attending Dr: Nathaniel Castillo [...] of care and confirmed it with the resident/student/GRAPHIC DESIGN INTERN. Patient resting in chair comfortably. 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 strength left hand unit tender, full strength with flexion and extension of [...] Tablet PO 06/10/23 21:59 Not Given HS [facility] Carvedilol 12.5 mg 06/09/22 08:00 06/12/22 08:30 Carvedilol 12.5 Mg Tablet PO 06/09/23 07:59 12.5 mg BID.WITH.MEALS JAK Administration Melatonin 5 mg 06/09/22 04:43 06/10/22 21:43 Melatonin 5 Mg Tablet PO 06/09/23 04:42 5 mg QHS PRN Administration Insomnia Montelukast Sodium 10 mg 06/09/22 22:00 06/12/22 00:28 Montelukast 10 Mg Tablet PO 06/09/23 21:59 Not Given HS [facility] Nitroglycerin 0.4 mg 06/10/22 [...] Tablet PO 06/09/23 21:59 Not Given HS [facility] Tizanidine HCl 4 mg [...] signed by DO RYAN Juarez> 06/12/22 1442 [facility] Work Phone: [phone] Progress note Author Paramjit Pride [facility] June 12, 2022 11:05am Note Date/Time June 12, 2022 11:05am [facility] [address] [place] [address] Cardiology Progress Note Signed Patient: Abdirahman Gomez MR#: [id number] : 1940 Acct:[id number] Age/Sex: 81 / F Adm Date: 2 Loc: Room: [address] [place] [address] Type: ADM IN Attending Dr: Nathaniel Castillo [...] signed by Paramjit Pride MD> 06/12/22 1105 [facility] Work Phone: [phone]) 749-666212-29-2022 Progress note Author Nathaniel Castillo [facility] June 11, 2022 4:24pm Note Date/Time June 11, 2022 12:40pm [facility] [address] [place] [address] Hospitalist Progress Note Signed Patient: Abdirahman Gomez MR#: [id number] : 1940 Acct:[id number] Age/Sex: 81 / F Adm Date: 2 Loc: Room: [address] [place] [address] Type: ADM IN Attending Dr: Nathaniel Castillo [...] of care and confirmed it with the resident/student/GRAPHIC DESIGN INTERN. Patient resting in bed comfortably. Denies chest [...] nerves grossly intact, full strength left hand unit tender which is improved upon yesterday's exam, full [...] Tablet PO 06/09/23 21:59 10 mg HS JKA Administration Aspirin 81 mg 06/11/22 09:00 06/11/22 [...] signed by DO RYAN Juarez> 06/11/22 1240 [facility] Work Phone: [phone]) 273-458512-29-2022 Progress note Author Paramjit Pride [facility] June 11, 2022 9:45am Note Date/Time June 11, 2022 9:46am [facility] [address] [place] [address] Cardiology Progress Note Signed Patient: Abdirahman Gomez MR#: [id number] : 1940 Acct:[id number] Age/Sex: 81 / F Adm Date: 2 Loc: Room: [address] [place] [address] Type: ADM IN Attending Dr: Nathaniel Castillo [...] % (Auto) 65.1 Lymph % (Auto) 24.1 [place] % (Auto) 9.1 Eos % (Auto) 1.2 Baso % (Auto) 0.5 Nucleat RBC Rel Count 0.1 Neut # (Auto) 7.4 Lymph # (Auto) 2.8 [place] # (Auto) 1.0 H Eos # (Auto) [...] (min): 20 Documented By: Paramjit Pride MD 06/11/2226 Signed By: <Electronically signed by Paramjit Pride MD> 06/11/22 3181 [facility] Work Phone: 1([phone]) 162-559512-28-2022 Progress note Author Paramjit Tann [facility] June 10, 2022 6:21pm Note Date/Time June 10, 2022 12:12pm [facility] [address] [place] [address] Cardiology Progress Note Signed with Addenda Patient: Abdirahman Gomez MR#: [id number] : 1940 Acct:[id number] Age/Sex: 81 / F Adm Date: 2 Loc: Room: [address] [place] [address] Type: ADM IN Attending Dr: Nathaniel Castillo [...] EKG. The patient's troponin peaked initially in [facility] emergency department at 9000and is now come [...] H* Echocardiogram Signed Patient: Abdirahman Gomez MR#: [id number] : 1940 Acct:[id number] Age/Sex: 81 / F ADM Date: 06/09/22 Loc: Room:? 9M5735-0 Type:?ADM IN Attending Dr: Nathaniel Castillo MD [...] 30 Documented By: Paramjit Pride MD 06/10/22 115 Signed By: <Electronically signed by Paramjit Pride MD> 06/10/22 1220 [facility] Work Phone: 1([phone]) 238-469012-28-2022 Progress note Author Nathaniel Castillo [facility] June 10, 2022 1:35pm Note Date/Time June 10, 2022 1:31pm [facility] [address] [place] [address] Progress Note Signed Patient: Abdirahman Gomez MR#: [id number] : 1940 Acct:[id number] Age/Sex: 81 / F Adm Date: 2 Loc: Room: [address] [place] [address] Type: ADM IN Attending Dr: Nathaniel Castillo [...] abnormalities, but upon review from a different biotechnician, it was noted that she has akinesis and thinning of the basal inferior wall of LV suggestive of a prior NM. #2 atrial fibrillation. Patient had a small [...] <Electronically signed by Nathaniel Castillo MD> 06/10/22 0276 [facility] Work Phone: 1([phone]) 653-489712-27-2022 History and physical note Author Chema Milner [facility] June 09, 2022 8:18pm Note Date/Time June 09, 2022 4:14am [facility] [address] [place] [address] Hospitalist H&P Signed Patient: Abdirahman Gomez MR#: [id number] : 1940 Acct:[id number] Age/Sex: 81 / F Adm Date: 2 Loc: Room: [address] [place] [address] Type: ADM IN Attending Dr: Nathaniel Castillo MD Copies to: MD Chema Pham MD Douglas M Hoy, MD Samantha Mason, DO, RES~ HPI DATE OF EXAMINATION: 06/09/22 CHIEF COMPLAINT: Weakness HISTORY OF PRESENT ILLNESS: Patient is an 81-year-old female that is a transfer from [facility] due to elevated troponins. Past medical history includes hypertension, hx CABG, presence of pacemaker, and paroxysmal atrial fibrillation. Patient had originally presented to the emergency room at [facility] due to generalized weakness that started several [...] negative unless noted below or in [facility]PI [facility] Vacc[facility] for [facility]-19?: Yes Medical [...] with Dr. Morton while patient was at [facility]. It is not felt that patient is [...] plan of care and confirmed the nurse practitioners/residents/healthcare administration internship written note. Patient is a 81-year-old lady history of CAD status post CABG, hypertension, A. fib, presence of pacemaker presented to [facility] due to weakness and bloody stools. Patient has history of diverticulosis. Hemoglobin 13.5. Incidentally troponins were significantly elevated but patient did not have any cardiac complaints. EKG with no acute ischemic changes. EKG reviewed by biotechnician, not felt to be an acute ischemic event and recommended transfer to [facility] for further evaluation and management. Patient [...] <Electronically signed by Chema Milner MD> 06/09/222017 [facility] Work Phone: 1([phone]) 299-787012-27-2022 Consult note Author Paramjit Pride [facility] June 09, 2022 3:21pm Note Date/Time June 09, 2022 3:16pm [facility] [address] [place] [address] Cardiology Consult Note Signed Patient: Abdirahman Gomez MR#: [id number] : 1940 Acct:[id number] Age/Sex: 81 / F Adm Date: 2 Loc: Room: [address] [place] [address] Type: ADM IN Attending Dr: Nathaniel Castillo [...] CAB x3 done approximately 30years ago in [place] who was transferred to our facility from [facility] 2days ago after presenting complaining of generalized [...] was activated. The patient was taken to [facility] emergency department for evaluation. In the ER at [facility] ER EKG was suspicious for ST segment [...] was anticoagulated and she was sent to [facility] for furtherevaluation. Since being here [facility] patient has had a mild increase [...] x10E3/uL Lymph # (Auto) 2.3 (1.00-4.8) x10E3/uL [place] # (Auto) 1.3 H (0.0-0.8) x10E3/uL Eos [...] AV and intraventricular conduction: 1 AV block NM, pacemaker, normal Myocardial infarction: inferior NM (old age indeterminate) Normal tracing: no change [...] discharge she can follow-up with her primary biotechnician in [facility]. Documented By: Paramjit Pride MD 06/09/22 1508 Signed By: <Electronically signed by Paramjit Pride MD> 06/09/22 3031 [facility] Work Phone: 1(444) 171-822112-27-2022 Progress note Author Nathaniel Castillo [facility] June 09, 2022 3:06pm Note Date/Time June 09, 2022 1:59pm [facility] [address] [place] [address] Hospitalist Progress Note Signed Patient: Abdirahman Gomez MR#: [id number] : 1940 Acct:[id number] Age/Sex: 81 / F Adm Date: 12/27/2 2 Loc: Room: 3L4760-8 Type: ADM IN Attending Dr: Nathaniel aCstillo MD Copies to: ~ Date of Service: 06/09/2022 Subjective Subjective Narrative: Attending note: I saw the patient personally on the day of encounter. I reviewed the relevant history, and performed the smith elements of the physical examination. I reviewedthe relevant laboratory workup, radiological studies and the current treatment plan. I formulated the plan of care and confirmed it with the resident/student/GRAPHIC DESIGN INTERN. Patient resting in bed comfortably. Denies chest [...] out of 5 strength on left hand unit tender, full strength with flexion and extension of [...] and examination Only has decreased strength in unit tender on the left upon my exam Denies [...] signed by Nathaniel Castillo MD> 06/09/22 1506 [facility] Work Phone: 1([phone]) [phone] NoteMR#: [id number] I [facility] Pt. Name: Abdirahman Gomez Admitted: 11/22/2021 [...] is an 81-year-old female who presented to [facility] with chief complaint of symptomatic bradycardia [...] Mcfadden PA-C Date Trans: 11/26/2021 06:47 A/daniel [id number] cc: Irish Faustin M.D. [address] [place] [address]S[facility] HospitalEvaluation [facility]* Diagnosis Onset Date Resolution Status A-fib acute Abnormal ECG acute Constipation acute Diverticulosis acute Elevated troponin acute Embolic stroke acute Hypertension acute Pacemaker acute Paroxysmal atrial fibrillation acute Upper extremity weakness acu te [facility] Work Phone: Evaluation note* Diagnosis Onset [...] acute Pacemaker acute Paroxysmal atrial fibrillation acute [facility] Work Phone: Hospital Discharge instructions Additional [...] primary care provider to obtain [facility] records entirely to follow up on all of the abnormal physical, laboratory, and imaging findings that I have not addressed. Please return back to the emergency room or seek medical attention if your symptoms worsen or return. Discharging you from [facility] does not mean that your medical care ends here and now. You may still need additional monitoring, work up, investigation, and treatment plan to be handled from this point on by out patient providers including your primary care provider and specialists. For any medication question, please contact your retail pharmacist or your primary care provider. Thank you.[facility] Work Phone: Summary Purpose Family History [...] and content) DATE CREATED AUTHOR 12/03/2021 [facility] DATE CREATED AUTHOR AUTHOR'S ORGANIZ ATION 06/16/2022 [facility] DATE CREATED AUTHOR AUTHOR'S ORGANIZ ATION 07/18/2022 [facility] DATE CREATED AUTHOR AUTHOR'S ORGANIZ ATION 08/03/2022 [facility] DATE CREATED AUTHOR AUTHOR'S ORGANIZ ATION 06/30/2024 [facility] Care Teams (unrecognized sec tion and content) [...] Dominguez MD Other Provider Active Devora J [place] , GRAPHIC DESIGN INTERN-C Other Provider Active Ga Kwong MD Other Provider Active Maurilio Banks MD Other Provider Active Chema Milner MD Other Provider Active Herminia Andrew , DO Other Provider Active Johnny Benson , DO Other Provider Active Rober Perez , DO Other Provider Active Brandi Cifuentes MARINE CARGO SURVEYOR Other Provider Active Devante Lafleur , DO [...] BE BASED ON THE PRIMARY CLINICAL RECORDS. [employer] [facility]. provides no warranty or guarantee of the accuracy or completeness of information in this document.
[2024-07-14] MEDS: ISOSORBIDE MONONITRATE 30 MG TAB.ER.24H PO (09:30)
[2024-07-14] MEDS: SENNOSIDES 8.6 MG TABLET 17.2 MG PO (09:30)
[2024-07-14] MEDS: POTASSIUM CHLORIDE 10 MEQ ER TABLET 20 MEQ PO (09:30)
[2024-07-14] MEDS: ATORVASTATIN CALCIUM 20 MG TABLET PO (09:31)
[2024-07-14] MEDS: MULTIVITAMIN TABLET 1 TAB PO (09:31)
[2024-07-14] MEDS: OMEPRAZOLE 40 MG CAPSULE.DR PO (09:31)
[2024-07-14] MEDS: CHOLECALCIFEROL (VITAMIN D3) 125 MCG/5,000 UNIT TABLET PO (09:31)
[2024-07-14] MEDS: AMLODIPINE BESYLATE 5 MG TABLET 10 MG PO (09:31)
[2024-07-14] MEDS: CARVEDILOL 12.5 MG TABLET PO (09:31)
[2024-07-14] MEDS: LOSARTAN POTASSIUM 25 MG TABLET PO (09:31)
[2024-07-14] MEDS: MAGNESIUM OXIDE 400 MG TABLET PO (09:31)
[2024-07-14] MEDS: ASPIRIN 81 MG TABLET.DR PO (09:31)
[2024-07-14] MEDS: FUROSEMIDE 20 MG TABLET PO (09:32)
[2024-07-14] MEDS: ASCORBIC ACID 500 MG TABLET 1000 MG PO (09:32)
[2024-07-14] MEDS: MONTELUKAST SODIUM 10 MG TABLET PO (09:32)
[2024-07-14] MEDS: LORAZEPAM 1 MG TABLET PO (09:32)
[2024-07-14] MEDS: APIXABAN 5 MG TABLET 2.5 MG PO (09:32)
[2024-07-14] MEDS: FISH OIL 1,000 MG CAPSULE 1000 MG PO (09:34)
--- NOTE | 2024-07-14 10:01 | CM.NOTE ---
Medicare Outpatient Observation Notice discussed with pt, pt verbalizes understanding and signs paper. Original given to pt and copy placed on pt's chart.
[2024-07-14 10:59] VITALS: O2SAT 93
[2024-07-14 11:52] VITALS: O2SAT 93
--- NOTE | 2024-07-20 15:15 | CM.DCFOLLOWU ---
1st attempt 07/20/24, no answer
== END 2024-07-14 12:06 | disposition home or self-care (01) ==
LOC: ER 16:38 → MS 07-14 09:07
PROVIDERS: Physician Assistant; Admitting Provider Family Medicine; Emergency Provider Emergency Medicine; PCP Family Medicine; Visit Provider Family Medicine
DX: J18.9 Pneumonia, unspecified organism (principal); R06.03 Acute respiratory distress; R06.02 Shortness of breath; I48.91 Unspecified atrial fibrillation; Z79.01 Long term (current) use of anticoagulants; Z90.710 Acquired absence of both cervix and uterus; Z95.1 Presence of aortocoronary bypass graft; E86.0 Dehydration; R53.1 Weakness; J45.901 Unspecified asthma with (acute) exacerbation; I10 Essential (primary) hypertension; F41.1 Generalized anxiety disorder; K21.9 Gastro-esophageal reflux disease without esophagitis; G80.9 Cerebral palsy, unspecified; G25.81 Restless legs syndrome; E78.00 Pure hypercholesterolemia, unspecified; D72.829 Elevated white blood cell count, unspecified; R79.89 Other specified abnormal findings of blood chemistry; Z87.440 Personal history of urinary (tract) infections; R82.998 Other abnormal findings in urine
CPT/HCPCS: 36415; 71045; 71260; 80048; 80053; 80076; 81001; 82800; 83605; 83735; 83880; 84484; 85025; 85610; 87040; 87086; 87804; 87811; 93005; 94640; 94667; 94668; 94761; 96365; 96375; 97162; 99285; G0378; J0456; J0696; Q9967

== ENCOUNTER 2024-08-09 12:54 | Outpatient (OUT) | payer MEDICARE, OTHER, SELFPAY ==
--- OUTSIDE RECORDS SUMMARY | 2024-08-09 12:59 | XMS_ITS | CCD ---
Author Organization [facility] Care Team Providers Care Development Architect Name Role Phone UNKNOWN, PHYSICIAN Referring Unavailable [...] MD Frida De La Cruz Attending Provider [phone] MD Stiven Zaman Admit Provider MD Stiven Zaman Attending Provider [phone] PARISA Santillan Other Provider Unavailable PARISA Calle [...] Adhesive agent Drug allergy (disorder) 9 [facility] (3 sources) Ciprofloxacin Drug Allergy 6 [facility] (5 sources) Codeine; Translations: [CODEINE] Drug Allergy 9 Itching [facility] (1 source) paper tape; Translations: [paper tape] Propensity to adverse reactions (disorder) 2 [facility] (1 source) Desonide Drug Allergy [facility] Rep[facility] (4 sources) Ciprofloxacin; Translations: [ciprofloxacin] Drug Allergy 2 Redness of Skin [facility] (1 source) Codeine Drug Allergy 2 [facility] Rep[facility] (1 source) Amitriptyline; Translations: [AMITRIPTYLINE] Drug Allergy 4 [facility] (1 source) rosuvastatin; Translations: [ROSUVASTATIN] Drug Allergy 5 [facility] (1 source) ADHESIVE TAPE-SILICONES; Translations: [ADHESIVE TAPE-SILICONES] Propensity to adverse reactions to drug (disorder) 5 [facility] Medications Current Medications Medication Drug [...] June 16, 2022 10:52am polyethylene glycol 3350 90448 mg powder for oral solution (3 sources) [...] Start: 06-14-2022 take 2 tablets by mo [facility] twice daily Sennosides (Senna Lax) 8.6 [...] (2 sources) Start: 06-09-2022 End: 06-16-2022 take 18889 ug by mouth once daily Biotin Discontinued 52479 MCG PO Daily June 09, 2022 12:00am June 16, 2022 10:52am Magnesium Chloride (2 sources) Start: 06-09-2022 End: 06-16-2022 take 64 mg by mouth once daily Magnesium Chloride Discontinued 64 MG PO Daily June 09, 2022 12:00am June 16, 2022 10:52am [place]-3 Fatty Acids-Vitamin E (Fish Oil) 1,000 mg Capsule (2 sources) Start: 06-09-2022 End: 06-16-2022 take 1 capsule by mouth once daily [place]-3 Fatty Acids-Vitamin E (Fish Oil) 1,000 mg [...] disease (3 sources) Atherosclerotic heart disease of [place] coronary artery without angina pectoris; 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] Onset: 3 Chronic [...] 3 Chronic Other aftercare (1 source) Other buttermaker helper (current) drug therapy; Translations: [OTH SPICE MILLER HAMMER MILL CURRENT DRUG THERAPY] Onset: 3 Episodic Other aftercare (1 source) intermission coordinator (current) use of aspirin; Translations: [JAIL CURRENT USE OF ASPIRIN] Onset: 3 Episodic [...] Range Facility Office Visiton 04-17-2024 Follow-up visit [id number] Abdirahman Gomez 1940 F Date Provider Department Center 04/17/2024 Monico-SAMANTHA LAMB BRIA Saucedo [facility] Family History Problem Relation Age of Onset Aneurysm Mother Alcohol abuse Father Family Status - Relation Status Age at Mother Father Level of Service:12149 [place] OFFICE/OUTPATIENT ESTABLISHED LOW MDM 20 MIN Normal [facility] Basic Metabolic Panelon 06-14 Anion gap [Moles/Vol] 16.1 mmol/L High 6.0-15.0 [facility] Comment on above: Performed By: #### C BC, BMP #### [facility] [address] [place] [address] [place] Calcium [Mass/Vol] 9.4 mg/dL Normal 8.2-10.2 [facility] Comment on above: Performed By: #### C BC, BMP #### [facility] [address] [place] [address] [place] Chloride [Moles/Vol] 102 mmol/L Normal 95-114 [facility] Comment on above: Performed By: #### C BC, BMP #### [facility] [address] [place] [address] [place] CO2 [Moles/Vol] 20.7 mmol/L Low 22.0-30.[address] [facility] Comment on above: Performed By: #### C BC, BMP #### [facility] [address] Creatinine [Mass/Vol] 0.84 mg/dL Normal 0.44-1.03 [facility] Comment on above: Performed By: #### C BC, BMP #### [facility] [address] [place] [address] [place] Creatinine Clr Calc Pharmacy 47.21 [facility] Comment on above: Result Comment: PERF ORMED BY: [place] [address] PATHOLOGIST SHEAR GRINDER OPERATOR PILAR VILLARREAL M.D. Performed By: #### C BC, BMP #### [address] Estimated GFR ( Rose > 60 [facility] Comment on above: Result Comment: GFR estimated reference range: According to KDOQI guidelines, <60 ml/min/1.73m2 is sufficient to diagnose a patient with chronic kidney disease. Performed By: #### C BC, BMP #### [address] Estimated GFR (Non- Am > 60 [facility] Comment on above: Performed By: #### C BC, BMP #### [address] Glucose [Mass/Vol] 104 mg/dL High 70-100 [facility] Comment on above: Result Comment: [place] Glucose Reference Range is dependent on time and content of last meal. Glucose of more than 200 mg/dL in a nonstressed, ambulatory subject supports the diagnosis of Diabetes Mellitus. ADA recommended reference range Performed By: #### C BC, BMP #### [address] Potassium [Moles/Vol] 3.8 mmol/L Normal 3.5-5.1 [facility] Comment on above: Performed By: #### C BC, BMP #### [place] [address] [place] Sodium [Moles/Vol] 135 mmol/L Low 136-146 [facility] Comment on above: Performed By: #### C BC, BMP #### [facility] [address] Urea nitrogen [Mass/Vol] 10 mg/dL Normal 9-23 [facility] Comment on above: Performed By: #### C BC, BMP #### [facility] [address] [place] [address] [place] Basophils Auto (Bld) [#/Vol] Ordered By: Stiven Zaman on 06-23-2022 Basophils (Bld) [#/Vol] 0.1 10*3/uL 0.0-0.2 [facility] Basophils/100 WBC Auto (Bld) Ordered By: Stiven Zaman on 06-23-2022 Basophils/100 WBC (Bld) 0.8 % . [facility] Complete Blood Count Auto Di ffon 06-23-2022 Basophils (Bld) [#/Vol] 0.1 10*3/uL Normal 0.0-0.2 [facility] Comment on above: Result Comment: PERF ORMED BY: [place] [address] PATHOLOGIST SHEAR GRINDER OPERATOR PILAR VILLARREAL M.D. Performed By: #### C BC, BMP #### [address] Basophils/100 WBC (Bld) 0.8 % Normal . [facility] Comment on above: Performed By: #### C BC, BMP #### [facility] [address] [place] [address] [place] Eosinophils (Bld) [#/Vol] 0.3 10*3/uL Normal 0.0-0.45 [facility] Comment on above: Performed By: #### C BC, BMP #### [address] Eosinophils/100 WBC (Bld) 3.2 % Normal . [facility] Comment on above: Performed By: #### C BC, BMP #### [address] Erythrocyte distribution width (RBC) [Ratio] 13.3 % Normal 11.9-15.3 [facility] Comment on above: Performed By: #### C BC, BMP #### [address] Hematocrit (Bld) [Volume fraction] 38.3 % Normal 34.0-46.4 [facility] Comment on above: Performed By: #### C BC, BMP #### [address] Hemoglobin (Bld) [Mass/Vol] 12.8 g/dL Normal 11.8-15.4 [facility] Comment on above: Performed By: #### C BC, BMP #### [address] Lymphocytes (Bld) [#/Vol] 2.6 10*3/uL Normal 1.00-4.8 [facility] Comment on above: Performed By: #### C BC, BMP #### [address] Lymphocytes/100 WBC (Bld) 31.9 % Normal . [facility] Comment on above: Performed By: #### C BC, BMP #### [address] MCH (RBC) [Entitic mass] 34.1 pg Normal 24.7-34.3 [facility] Comment on above: Performed By: #### C BC, BMP #### [address] MCV (RBC) [Entitic vol] 102.2 fL High 80-100 [facility] Comment on above: Performed By: #### C BC, BMP #### [address] Mean Corpuscular HGB Conc 33.4 g/dL Normal 32.0-35.0 [facility] Comment on above: Performed By: #### C BC, BMP #### [address] Monocytes (Bld) [#/Vol] 0.7 10*3/uL Normal 0.0-0.8 [facility] Comment on above: Performed By: #### C BC, BMP #### [facility] [address] Monocytes/100 WBC (Bld) 8.4 % Normal . [facility] Comment on above: Performed By: #### C BC, BMP #### [facility] [address] Neutrophils (Bld) [#/Vol] 4.5 10*3/uL Normal 1.8-7.7 [facility] Comment on above: Performed By: #### C BC, BMP #### [address] Neutrophils/100 WBC (Bld) 55.7 % Normal . [facility] Comment on above: Performed By: #### C BC, BMP #### [address] NRBC% 0.1 /100{WBC} Normal 0-0.5 [facility] Comment on above: Performed By: #### C BC, BMP #### [address] Platelet mean volume (Bld) [Entitic vol] 8.0 fL Normal 6.3-10.7 [facility] Comment on above: Performed By: #### C BC, BMP #### [place] [address] [place] Platelets (Bld) [#/Vol] 272 10*3/uL Normal 150-450 [facility] Comment on above: Performed By: #### C BC, BMP #### [facility] [address] [place] [address] [place] RBC (Bld) [#/Vol] 3.75 10*6/uL Normal 3.60-5.00 [facility] Comment on above: Performed By: #### C BC, BMP #### [place] [address] [place] WBC (Bld) [#/Vol] 8.1 10*3/uL Normal 3.8-11.6 [facility] Comment on above: Performed By: #### C BC, BMP #### [facility] [address] [place] [address] [facility] Creatinine and Glomerular fi ltration rate.predicted panel (S/P/Bld)Ordered By: Stiven Zaman on 06-23-2022 Creatinine [Mass/Vol] 0.84 mg/dL 0.44-1.03 [facility] Eosinophils Auto (Bld) [#/Vo l]Ordered By: Stiven Zaman on 06-23-2022 Eosinophils (Bld) [#/Vol] 0.3 10*3/uL 0.0-0.45 [facility] Eosinophils/100 WBC Auto (Bl d)Ordered By: Stiven Zaman on 06-23-2022 Eosinophils/100 WBC (Bld) 3.2 % . [facility] Erythrocyte distribution wid th Auto (RBC) [Ratio]Ordered By: Stiven Zaman on 06-23-2022 Erythrocyte distribution width (RBC) [Ratio] 13.3 % 11.9-15.3 [facility] Estimated glomerular filtrat ion rate (GFR) non- AmericanOrdered By: Stiven Zaman on 06-23-2022 GFR/1.73 sq M.predicted among non-blacks MDRD (S/P/Bld) [Vol rate/Area] > 60 mL/Min [facility] Hematocrit Auto (Bld) [Volum e fraction]Ordered By: Stiven Zaman on 06-23-2022 Hematocrit (Bld) [Volume fraction] 38.3 % 34.0-46.4 [facility] Hemoglobin [Mass/volume] in BloodOrdered By: Stiven Zaman on 06-23-2022 Hemoglobin (Bld) [Mass/Vol] 12.8 g/dL 11.8-15.4 [facility] Leukocytes [#/volume] correc zoe for nucleated erythrocytes in Blood by Automated counOrdered By: Stiven Zaman on 06-23-2022 WBC corrected for nucl RBC Auto (Bld) [#/Vol] 8.1 10*3/uL 3.8-11.6 [facility] Lymphocytes Auto (Bld) [#/Vo l]Ordered By: Stiven Zaman on 06-23-2022 Lymphocytes (Bld) [#/Vol] 2.6 10*3/uL 1.00-4.8 [facility] Lymphocytes/100 WBC Auto (Bl d)Ordered By: Stiven Zaman on 06-23-2022 Lymphocytes/100 WBC (Bld) 31.9 % . [facility] MCH Auto (RBC) [Entitic mass ]Ordered By: tSiven Zaman on 06-23-2022 MCH (RBC) [Entitic mass] 34.1 pg 24.7-34.3 [facility] MCHC Auto (RBC) [Mass/Vol]Or dered By: Stiven Zaman on 06-23-2022 MCHC (RBC) [Mass/Vol] 33.4 g/dL 32.0-35.0 [facility] MCV Auto (RBC) [Entitic vol] Ordered By: Stiven Zaman on 06-23-2022 MCV (RBC) [Entitic vol] 102.2 fL 80-100 [facility] Monocytes Auto (Bld) [#/Vol] Ordered By: Stiven Zaman on 06-23-2022 Monocytes (Bld) [#/Vol] 0.7 10*3/uL 0.0-0.8 [facility] Monocytes/100 WBC Auto (Bld) Ordered By: Stiven Zaman on 06-23-2022 Monocytes/100 WBC (Bld) 8.4 % . [facility] Neutrophils Auto (Bld) [#/Vo l]Ordered By: Stiven Zaman on 06-23-2022 Neutrophils (Bld) [#/Vol] 4.5 10*3/uL 1.8-7.7 [facility] Neutrophils/100 WBC Auto (Bl d)Ordered By: Stiven Zaman on 06-23-2022 Neutrophils/100 WBC (Bld) 55.7 % . [facility] No Panel InformationOrdered By: Stiven Zaman on 06-23-2022 Estimated GFR () > 60 mL/Min [facility] Comment on above: GFR estimated refere nce range: According to KDOQI guidelines, <60 ml/min/1.73m2 is sufficient to diagnose a patient with chronic kidney disease. Pharmacy Creatinine Clearance (Chem 47.21 [facility] Nucleated erythrocytes [Pres ence] in Blood by Automated countOrdered By: Stiven Zaman on 06-23-2022 Nucleated RBC Auto Ql (Bld) 0.1 /100{WBC} 0-0.5 [facility] Platelet mean volume Auto (B ld) [Entitic vol]Ordered By: Stiven Zaman on 06-23-2022 Platelet mean volume (Bld) [Entitic vol] 8.0 fL 6.3-10.7 [facility] Platelets Auto (Bld) [#/Vol] Ordered By: Stiven Zaman on 06-23-2022 Platelets (Bld) [#/Vol] 272 10*3/uL 150-450 [facility] RBC Auto (Bld) [#/Vol]Ordere d By: Stiven Zaman on 06-23-2022 RBC (Bld) [#/Vol] 3.75 10*6/uL 3.60-5.00 [facility] Serum or plasma anion gap de terminationOrdered By: Stiven Zaman on 06-23-2022 Anion gap [Moles/Vol] 16.1 mmol/L 6.0-15.0 [facility] Serum or plasma calcium jerrod urement (mass/volume)Ordered By: Stiven Zaman on 06-23-2022 Calcium [Mass/Vol] 9.4 mg/dL 8.2-10.2 [facility] Serum or plasma chloride salma surement (moles/volume)Ordered By: Stiven Zaman on 06-23-2022 Chloride [Moles/Vol] 102 mmol/L 95-114 [facility] Serum or plasma glucose jerrod urement (mass/volume)Ordered By: Stiven Zaman on 06-23-2022 Glucose [Mass/Vol] 104 mg/dL 70-100 [facility] Comment on above: ADA recommended refe rence rangeRandom Glucose Reference Range is dependent on time and content of last meal. Glucose of more than 200 mg/dL in a nonstressed, ambulatory subject supports the diagnosis of Diabetes Mellitus. Serum or plasma potassium me asurement (moles/volume)Ordered By: Stiven Zaman on 06-23-2022 Potassium [Moles/Vol] 3.8 mmol/L 3.5-5.1 [facility] Serum or plasma sodium measu rement (moles/volume)Ordered By: Stiven Zaman on 06-23-2022 Sodium [Moles/Vol] 135 mmol/L 136-146 [facility] Serum or plasma total carbon dioxide measurement (moles/volume)Ordered By: Stiven Zaman on 06-23-2022 CO2 [Moles/Vol] 20.7 mmol/L 22.0-30.[address] [facility] Serum or plasma urea nitroge n measurement (mass/volume)Ordered By: Stiven Zaman on 06-23-2022 Urea nitrogen [Mass/Vol] 10 mg/dL 9-23 [facility] WBC Auto (Bld) [#/Vol]Ordere d By: Stiven Zaman on 06-23-2022 WBC (Bld) [#/Vol] 8.1 10*3/uL 3.8-11.6 [facility] Glucose Glucometer (BldC) [M ass/Vol]Ordered By: Stiven Zaman on 06-21-2022 Glucose [Mass/Vol] 108 mg/dL [facility] Comment on above: Random Glucose Refer ence Range is dependent on time and content of last meal. Glucose of more than 200 mg/dL in a nonstressed, ambulatory subject supports the diagnosis of Diabetes Mellitus. Glucose Poct Glucometerson 0 06-21-2022 Glucose [Mass/Vol] 108 mg/dL Normal [facility] Comment on above: Result Comment: [facility] Glucose Reference Range is dependent on time and content of last meal. Glucose of more than 200 mg/dL in a nonstressed, ambulatory subject supports the diagnosis of Diabetes Mellitus. PERFORMED BY: [facility] [address] [place] [address] PATHOLOGIST SHEAR GRINDER OPERATOR PILAR VILLARREAL M.D. Performed By: #### G KIRA #### Point of Care testing , Glucose Poct Glucometerson 0 06-20-2022 Glucose [Mass/Vol] 93 mg/dL Normal [facility] Comment on above: Result Comment: [facility] Glucose Reference Range is dependent on time and content of last meal. Glucose of more than 200 mg/dL in a nonstressed, ambulatory subject supports the diagnosis of Diabetes Mellitus. PERFORMED BY: [place] [address] PATHOLOGIST SHEAR GRINDER OPERATOR PILAR VILLARREAL M.D. Performed By: #### L IPID, A1C WTH eA #### [address] Glucose [Mass/Vol] 107 mg/dL Normal [facility] Comment on above: Result Comment: [place] [facility] Glucose Reference Range is dependent on time and content of last meal. Glucose of more than 200 mg/dL in a nonstressed, ambulatory subject supports the diagnosis of Diabetes Mellitus. PERFORMED BY: [place] [address] PATHOLOGIST SHEAR GRINDER OPERATOR PILAR VILLARREAL M.D. Performed By: #### G LULS #### Point of Care testing , Glucose Poct Glucometerson 0 06-19-2022 Commemt1 [facility] Comment on above: Result Comment: Glu2 : WILL NOTIFY DR/RN Performed By: #### G LULS #### Point of Care testing , Commemt2 Cleaned Meter [facility] Comment on above: Result Comment: PERF ORMED BY: [place] [address] PATHOLOGIST SHEAR GRINDER OPERATOR PILAR VILLARREAL M.D. Performed By: #### G LULS #### Point of Care testing , Glucose [Mass/Vol] 118 mg/dL [facility] Comment on above: Result Comment: [place] [facility] Glucose Reference Range is dependent on time and content of last meal. Glucose of more than 200 mg/dL in a nonstressed, ambulatory subject supports the diagnosis of Diabetes Mellitus. Performed By: #### G LULS #### Point of Care testing , Glucose [Mass/Vol] 97 mg/dL [facility] Comment on above: Result Comment: [place] [facility] Glucose Reference Range is dependent on time and content of last meal. Glucose of more than 200 mg/dL in a nonstressed, ambulatory subject supports the diagnosis of Diabetes Mellitus. PERFORMED BY: [place] [id number] PATHOLOGIST SHEAR GRINDER OPERATOR PILAR VILLARREAL M.D. Performed By: #### G LULS #### Point of Care testing , No Panel InformationOrdered By: Stiven Zaman on 06-19-2022 Bedside Glucose #2 Comment Cleaned meter [facility] Bedside Glucose Comment See comment [facility] Comment on above: Glu2: WILL NOTIFY DR /RN XR hip LT min 2V(w/wo pelvis )*on 06-19-2022 XR hip LT min 2V(w/wo pelvis)* [facility] [place] [address] [place] [address] XRay Report Signed Patient: Abdirahman Gomez MR#: [id number] : 1940 Acct:[id number] Age/Sex: 81 / F ADM Date: 06/16/22 Loc: Room: [address] [place] [address] Type: ADM IN Attending Dr: Stiven Zaman [...] Beasley Jr., D.OHuma06/19/2022 3:01 PM Dictation Location: [place] [address] Transcribed By: [facility] 06/19/22 1501 Dictated By: Stiven Beasley Jr, DO 06/19/22 1500 Signed By: 06/19/22 1501 Normal [facility] Glucose Poct Glucometerson 0 06-18-2022 Commemt1 Glu2: Cleaned Meter Normal [facility] Comment on above: Result Comment: PERF ORMED BY: [place] [address] PATHOLOGIST SHEAR GRINDER OPERATOR PILAR VILLARREAL M.D. Performed By: #### G LULS #### Point of Care testing , Glucose [Mass/Vol] 105 mg/dL Normal [facility] Comment on above: Result Comment: [place] [facility] Glucose Reference Range is dependent on time and content of last meal. Glucose of more than 200 mg/dL in a nonstressed, ambulatory subject supports the diagnosis of Diabetes Mellitus. Performed By: #### G LULS #### Point of Care testing , Glucose [Mass/Vol] 107 mg/dL Normal [facility] Comment on above: Result Comment: [place] [facility] Glucose Reference Range is dependent on time and content of last meal. Glucose of more than 200 mg/dL in a nonstressed, ambulatory subject supports the diagnosis of Diabetes Mellitus. PERFORMED BY: [place] [address] PATHOLOGIST SHEAR GRINDER OPERATOR PILAR VILLARREAL M.D. Performed By: #### C BC, BMP #### [place] [id number] [facility] US carotid doppler BIon 0 US carotid doppler BI [facility] [place] [address] [place] [address] Ultrasound Report Signed Patient: Abdirahman Gomez MR#: [id number] : 1940 Acct:[id number] Age/Sex: 81 / F ADM Date: 06/09/22 Loc: Room: [address] [place] [address] Type: DIS IN Attending Dr: Frida De [...] Bebo Howell MD06/18/2022 4:50 PM Dictation Location: [place] [address] Tech: Margaret Rust Transcribed By: CHANDRAKANT 06/18/221649 Dictated By: Bebo Howell MD 06/18/22 164 Signed By: 06/18/221649 [facility] Albumin [Mass/volume] in Ser um or PlasmaOrdered By: Stiven Zaman on 01-04-2023 Albumin [Mass/Vol] 3.3 g/dL 3.2-5.5 [facility] Complete Blood Count Auto Di ffon 06-17-2022 Basophils (Bld) [#/Vol] 0.2 10*3/uL Normal 0.0-0.2 [facility] Comment on above: Result Comment: PERF ORMED BY: [facility] [place] [address] PATHOLOGIST SHEAR GRINDER OPERATOR PILAR VILLARREAL M.D. Performed By: #### G LULS #### Point of Care testing , Basophils/100 WBC (Bld) 1.4 % Normal . [facility] Comment on above: Performed By: #### G LULS #### Point of Care testing , Eosinophils (Bld) [#/Vol] 0.3 10*3/uL Normal 0.0-0.45 [facility] Comment on above: Performed By: #### G LULS #### Point of Care testing , Eosinophils/100 WBC (Bld) 2.4 % Normal . [facility] Comment on above: Performed By: #### G LULS #### Point of Care testing , Erythrocyte distribution width (RBC) [Ratio] 13.2 % Normal 11.9-15.3 [facility] Comment on above: Performed By: #### G LULS #### Point of Care testing , Hematocrit (Bld) [Volume fraction] 38.9 % Normal 34.0-46.4 [facility] Comment on above: Performed By: #### G LULS #### Point of Care testing , Hemoglobin (Bld) [Mass/Vol] 12.8 g/dL Normal 11.8-15.4 [facility] Comment on above: Performed By: #### G LULS #### Point of Care testing , Lymphocytes (Bld) [#/Vol] 3.2 10*3/uL Normal 1.00-4.8 [facility] Comment on above: Performed By: #### G LULS #### Point of Care testing , Lymphocytes/100 WBC (Bld) 29.1 % Normal . [facility] Comment on above: Performed By: #### G LULS #### Point of Care testing , MCH (RBC) [Entitic mass] 33.5 pg Normal 24.7-34.3 [facility] Comment on above: Performed By: #### G LULS #### Point of Care testing , MCV (RBC) [Entitic vol] 102.3 fL High 80-100 [facility] Comment on above: Performed By: #### G LULS #### Point of Care testing , Mean Corpuscular HGB Conc 32.8 g/dL Normal 32.0-35.0 [facility] Comment on above: Performed By: #### G CARLEENLS #### Point of Care testing , Monocytes (Bld) [#/Vol] 1.0 10*3/uL High 0.0-0.8 [facility] Comment on above: Performed By: #### G CARLEENLS #### Point of Care testing , Monocytes/100 WBC (Bld) 9.4 % Normal . [facility] Comment on above: Performed By: #### G CARLEENLS #### Point of Care testing , Neutrophils (Bld) [#/Vol] 6.3 10*3/uL Normal 1.8-7.7 [facility] Comment on above: Performed By: #### G CARLEENLS #### Point of Care testing , Neutrophils/100 WBC (Bld) 57.7 % Normal . [facility] Comment on above: Performed By: #### G CARLEENLS #### Point of Care testing , NRBC% 0.0 /100{WBC} Normal 0-0.5 [facility] Comment on above: Performed By: #### G CARLEENLS #### Point of Care testing , Platelet mean volume (Bld) [Entitic vol] 7.5 fL Normal 6.3-10.7 [facility] Comment on above: Performed By: #### G LULS #### Point of Care testing , Platelets (Bld) [#/Vol] 309 10*3/uL Normal 150-450 [facility] Comment on above: Performed By: #### G LULS #### Point of Care testing , RBC (Bld) [#/Vol] 3.81 10*6/uL Normal 3.60-5.00 [facility] Comment on above: Performed By: #### Ginna MALONE #### Point of Care testing , WBC (Bld) [#/Vol] 10.9 10*3/uL Normal 3.8-11.6 [facility] Comment on above: Performed By: #### Ginna MALONE #### Point of Care testing , Comprehensive Metabolic Pane jazmin 06-17-2022 Albumin [Mass/Vol] 3.3 g/dL Normal 3.2-5.5 [facility] Comment on above: Performed By: #### Ginna MALONE #### Point of Care testing , Albumin/Globulin [Mass ratio] 0.9 {ratio} Normal [facility] Comment on above: Performed By: #### Ginna MALONE #### Point of Care testing , ALP [Catalytic activity/Vol] 76 U/L Normal 32-92 [facility] Comment on above: Performed By: #### Ginna MALONE #### Point of Care testing , ALT [Catalytic activity/Vol] 39 U/L Normal 10-60 [facility] Comment on above: Performed By: #### Ginna MALONE #### Point of Care testing , Anion gap [Moles/Vol] 13.1 mmol/L Normal 6.0-15.0 [facility] Comment on above: Performed By: #### Ginna MALONE #### Point of Care testing , AST [Catalytic activity/Vol] 52 U/L High 10-42 [facility] Comment on above: Performed By: #### Ginna MALONE #### Point of Care testing , Bilirubin [Mass/Vol] 0.5 mg/dL Normal 0.3-1.2 [facility] Comment on above: Performed By: #### Ginna MALONE #### Point of Care testing , Calcium [Mass/Vol] 9.0 mg/dL Normal 8.2-10.2 [facility] Comment on above: Performed By: #### Ginna MALONE #### Point of Care testing , Chloride [Moles/Vol] 106 mmol/L Normal 95-114 [facility] Comment on above: Performed By: #### G CARLEENLS #### Point of Care testing , CO2 [Moles/Vol] 20.6 mmol/L Low 22.0-30.[address] [facility] Comment on above: Performed By: #### G CARLEENLS #### Point of Care testing , Creatinine [Mass/Vol] 0.78 mg/dL Normal 0.44-1.03 [facility] Comment on above: Performed By: #### G LULS #### Point of Care testing , Creatinine Clr Calc Pharmacy 50.13 [facility] Comment on above: Performed By: #### G LULS #### Point of Care testing , Estimated GFR ( Rose > 60 [facility] Comment on above: Result Comment: GFR estimated reference range: According to KDOQI guidelines, <60 ml/min/1.73m2 is sufficient to diagnose a patient with chronic kidney disease. Performed By: #### G CARLEENLS #### Point of Care testing , Estimated GFR (Non- Am > 60 [facility] Comment on above: Performed By: #### G CARLEENLS #### Point of Care testing , Globulin (S) [Mass/Vol] 3.6 g/dL Normal [facility] Comment on above: Performed By: #### G CARLEENLS #### Point of Care testing , Glucose [Mass/Vol] 107 mg/dL High 70-100 [facility] Comment on above: Result Comment: [facility] Glucose Reference Range is dependent on time and content of last meal. Glucose of more than 200 mg/dL in a nonstressed, ambulatory subject supports the diagnosis of Diabetes Mellitus. ADA recommended reference range Performed By: #### G LULS #### Point of Care testing , Potassium [Moles/Vol] 3.7 mmol/L Normal 3.5-5.1 [facility] Comment on above: Performed By: #### G LULS #### Point of Care testing , Protein [Mass/Vol] 6.9 g/dL Normal 6.1-7.9 [facility] Comment on above: Performed By: #### G LULS #### Point of Care testing , Sodium [Moles/Vol] 136 mmol/L Normal 136-146 [facility] Comment on above: Performed By: #### G LULS #### Point of Care testing , Urea nitrogen [Mass/Vol] 13 mg/dL Normal 9-23 [facility] Comment on above: Performed By: #### G LULS #### Point of Care testing , Globulin Calc (S) [Mass/Vol] Ordered By: Stiven Zaman on 06-17-2022 Globulin (S) [Mass/Vol] 3.6 g/dL [facility] Glucose Poct Glucometerson 0 06-17-2022 Commemt1 [facility] Comment on above: Result Comment: Glu2 : WILL NOTIFY DR/RN Performed By: #### G LULS #### Point of Care testing , Commemt2 Cleaned Meter [facility] Comment on above: Result Comment: PERF ORMED BY: [facility] [address] [place] [address] PATHOLOGIST SHEAR GRINDER OPERATOR PILAR VILLARREAL M.D. Performed By: #### G LULS #### Point of Care testing , Glucose [Mass/Vol] 121 mg/dL Normal [facility] Comment on above: Result Comment: [facility] Glucose Reference Range is dependent on time and content of last meal. Glucose of more than 200 mg/dL in a nonstressed, ambulatory subject supports the diagnosis of Diabetes Mellitus. Performed By: #### G LULS #### Point of Care testing , Glucose [Mass/Vol] 105 mg/dL Normal [facility] Comment on above: Result Comment: [place] Glucose Reference Range is dependent on time and content of last meal. Glucose of more than 200 mg/dL in a nonstressed, ambulatory subject supports the diagnosis of Diabetes Mellitus. PERFORMED BY: [facility] [address] [place] [address] PATHOLOGIST SHEAR GRINDER OPERATOR PILAR VILLARREAL M.D. Performed By: #### G LULS #### Point of Care testing , Prealbuminon 06-17-2022 Prealbumin [Mass/Vol] 24.1 mg/dL Normal 18.0-38.0 [facility] Comment on above: Result Comment: PERF ORMED BY: [facility] [address] [place] [address] PATHOLOGIST SHEAR GRINDER OPERATOR PILAR VILLARREAL M.D. Performed By: #### L IPID, A1C WTH eA #### [facility] [address] Protein [Mass/volume] in Ser um or PlasmaOrdered By: Stiven Zaman on 06-17-2022 Protein [Mass/Vol] 6.9 g/dL 6.1-7.9 [facility] Serum or plasma alanine carney otransferase measurement without P-5'-P (enzymatic activiOrdered By: Stiven Zaman on 06-17-2022 ALT No additional P-5'-P [Catalytic activity/Vol] 39 U/L 10-60 [facility] Serum or plasma albumin/glob ulin mass ratioOrdered By: Stiven Zaman on 06-17-2022 Albumin/Globulin [Mass ratio] 0.9 {ratio} [facility] Serum or plasma alkaline ayad sphatase measurement (enzymatic activity/volume)Ordered By: Stiven Zaman on 06-17-2022 ALP [Catalytic activity/Vol] 76 U/L 32-92 [facility] Serum or plasma aspartate am inotransferase measurement (enzymatic activity/volume)Ordered By: Stiven Zaman on 06-17-2022 AST [Catalytic activity/Vol] 52 U/L 10-42 [facility] Serum or plasma prealbumin m easurement (mass/volume)Ordered By: Stiven Zaman on 06-17-2022 Prealbumin [Mass/Vol] 24.1 mg/dL 18.0-38.0 [facility] Serum or plasma total biliru bin measurement (mass/volume)Ordered By: Stiven Zaman on 06-17-2022 Bilirubin [Mass/Vol] 0.5 mg/dL 0.3-1.2 [facility] Basic Metabolic Panelon Anion gap [Moles/Vol] 14.0 mmol/L Normal 6.0-15.0 [facility] Comment on above: Performed By: #### L IPID, A1C WT eA #### [facility] [address] [place] [address] [place] Calcium [Mass/Vol] 9.5 mg/dL Normal 8.2-10.2 [facility] Comment on above: Performed By: #### L IPID, A1C WTH eA #### [facility] [address] [place] [address] [place] Chloride [Moles/Vol] 102 mmol/L Normal 95-114 [facility] Comment on above: Performed By: #### L IPID, A1C WT eA #### [facility] [address] CO2 [Moles/Vol] 21.7 mmol/L Low 22.0-30.[address] [facility] Comment on above: Performed By: #### L IPID, A1C WT eA #### [facility] [address] [place] [address] Creatinine [Mass/Vol] 0.83 mg/dL Normal 0.44-1.03 [facility] Comment on above: Performed By: #### L IPID, A1C WT eA #### [facility] [address] [place] [address] [place] Creatinine Clr Calc Pharmacy 48.32 [facility] Comment on above: Result Comment: PERF ORMED BY: [place] [address] PATHOLOGIST SHEAR GRINDER OPERATOR PILAR VILLARREAL M.D. Performed By: #### L IPID, A1C WT eA #### [facility] [address] [place] [address] Estimated GFR ( Rose > 60 [facility] Comment on above: Result Comment: GFR estimated reference range: According to KDOQI guidelines, <60 ml/min/1.73m2 is sufficient to diagnose a patient with chronic kidney disease. Performed By: #### L IPID, A1C WT eA #### [facility] [address] [place] [address] [place] Estimated GFR (Non- Am > 60 [facility] Comment on above: Performed By: #### L IPID, A1C WTH eA #### [facility] [address] [place] [address] [place] Glucose [Mass/Vol] 142 mg/dL High 70-100 [facility] Comment on above: Result Comment: [facility] Glucose Reference Range is dependent on time and content of last meal. Glucose of more than 200 mg/dL in a nonstressed, ambulatory subject supports the diagnosis of Diabetes Mellitus. ADA recommended reference range Performed By: #### L IPID, A1C WTH eA #### [facility] [address] Potassium [Moles/Vol] 3.7 mmol/L Normal 3.5-5.1 [facility] Comment on above: Performed By: #### L IPID, A1C WTH eA #### [facility] [address] [place] [address] [place] Sodium [Moles/Vol] 134 mmol/L Low 136-146 [facility] Comment on above: Performed By: #### L IPID, A1C WTH eA #### [facility] [address] [place] [address] [place] Urea nitrogen [Mass/Vol] 15 mg/dL Normal 9-23 [facility] Comment on above: Performed By: #### L IPID, A1C WTH eA #### [facility] [address] [place] [address] [place] Basophils Auto (Bld) [#/Vol] Ordered By: Frida De La Cruz on 06-15-2022 Basophils (Bld) [#/Vol] 0.1 10*3/uL 0.0-0.2 [facility] Basophils/100 WBC Auto (Bld) Ordered By: Frida De La Cruz on 06-15-2022 Basophils/100 WBC (Bld) 1.2 % . [facility] Complete Blood Count Auto Di ffon 06-15-2022 Basophils (Bld) [#/Vol] 0.1 10*3/uL Normal 0.0-0.2 [facility] Comment on above: Result Comment: PERF ORMED BY: [place] [address] PATHOLOGIST SHEAR GRINDER OPERATOR PILAR VILLARREAL M.D. Performed By: #### L IPID, [address] eA #### [address] Basophils/100 WBC (Bld) 1.2 % Normal . [facility] Comment on above: Performed By: #### L IPID, A1C WT eA #### [address] Eosinophils (Bld) [#/Vol] 0.3 10*3/uL Normal 0.0-0.45 [facility] Comment on above: Performed By: #### L IPID, [facility] WT eA #### [address] Eosinophils/100 WBC (Bld) 2.6 % Normal . [facility] Comment on above: Performed By: #### L IPID, [address] eA #### [address] Erythrocyte distribution width (RBC) [Ratio] 13.7 % Normal 11.9-15.3 [facility] Comment on above: Performed By: #### L IPID, [address] eA #### [address] Hematocrit (Bld) [Volume fraction] 41.4 % Normal 34.0-46.4 [facility] Comment on above: Performed By: #### L IPID, [facility] WT [place] #### [place] [address] [place] Hemoglobin (Bld) [Mass/Vol] 13.6 g/dL Normal 11.8-15.4 [facility] Comment on above: Performed By: #### L IPID, A1C WT eA #### [place] [address] [place] Lymphocytes (Bld) [#/Vol] 2.9 10*3/uL Normal 1.00-4.8 [facility] Comment on above: Performed By: #### L IPID, [facility] WT eA #### [facility] [address] [place] [address] [place] Lymphocytes/100 WBC (Bld) 27.7 % Normal . [facility] Comment on above: Performed By: #### L IPID, A1C WT eA #### [facility] [address] [place] [id number] [place] MCH (RBC) [Entitic mass] 33.9 pg Normal 24.7-34.3 [facility] Comment on above: Performed By: #### L IPID, [address] eA #### [facility] [address] [place] [address] [place] MCV (RBC) [Entitic vol] 103.3 fL High 80-100 [facility] Comment on above: Performed By: #### L IPID, [facility] WT eA #### [facility] [address] Mean Corpuscular HGB Conc 32.8 g/dL Normal 32.0-35.0 [facility] Comment on above: Performed By: #### L IPID, [address] eA #### [facility] [address] [place] [address] [place] Monocytes (Bld) [#/Vol] 0.7 10*3/uL Normal 0.0-0.8 [facility] Comment on above: Performed By: #### L IPID, [facility] WT eA #### [facility] [address] [place] [address] [place] Monocytes/100 WBC (Bld) 6.9 % Normal . [facility] Comment on above: Performed By: #### L IPID, A1C WT eA #### [facility] [address] [place] [address] [place] Neutrophils (Bld) [#/Vol] 6.6 10*3/uL Normal 1.8-7.7 [facility] Comment on above: Performed By: #### L IPID, A1C WT eA #### [facility] [address] [place] [id number] [place] Neutrophils/100 WBC (Bld) 61.6 % Normal . [facility] Comment on above: Performed By: #### L IPID, [address] eA #### [facility] [address] NRBC% 0.1 /100{WBC} Normal 0-0.5 [facility] Comment on above: Performed By: #### L IPID, [address] eA #### [address] Platelet mean volume (Bld) [Entitic vol] 8.0 fL Normal 6.3-10.7 [facility] Comment on above: Performed By: #### L IPID, [address] eA #### [address] Platelets (Bld) [#/Vol] 282 10*3/uL Normal 150-450 [facility] Comment on above: Performed By: #### L IPID, [address] eA #### [address] RBC (Bld) [#/Vol] 4.01 10*6/uL Normal 3.60-5.00 [facility] Comment on above: Performed By: #### L IPID, [address] eA #### [address] WBC (Bld) [#/Vol] 10.7 10*3/uL Normal 3.8-11.6 [facility] Comment on above: Performed By: #### L IPID, [address] eA #### [address] Creatinine and Glomerular fi ltration rate.predicted panel (S/P/Bld)Ordered By: Frida De La Cruz on 06-15-2022 Creatinine [Mass/Vol] 0.83 mg/dL 0.44-1.03 [facility] Eosinophils Auto (Bld) [#/Vo l]Ordered By: Frida De La Cruz on 06-15-2022 Eosinophils (Bld) [#/Vol] 0.3 10*3/uL 0.0-0.45 [facility] Eosinophils/100 WBC Auto (Bl d)Ordered By: Frida De La Cruz on 06-15-2022 Eosinophils/100 WBC (Bld) 2.6 % . [facility] Erythrocyte distribution wid th Auto (RBC) [Ratio]Ordered By: Frida De La Cruz on 06-15-2022 Erythrocyte distribution width (RBC) [Ratio] 13.7 % 11.9-15.3 [facility] Estimated glomerular filtrat ion rate (GFR) non- AmericanOrdered By: Frida De La Cruz on 06-15-2022 GFR/1.73 sq M.predicted among non-blacks MDRD (S/P/Bld) [Vol rate/Area] > 60 mL/Min [facility] Hematocrit Auto (Bld) [Volum e fraction]Ordered By: Frida De La Cruz on 06-15-2022 Hematocrit (Bld) [Volume fraction] 41.4 % 34.0-46.4 [facility] Hemoglobin [Mass/volume] in BloodOrdered By: Frida De La Cruz on 06-15-2022 Hemoglobin (Bld) [Mass/Vol] 13.6 g/dL 11.8-15.4 [facility] Leukocytes [#/volume] correc zoe for nucleated erythrocytes in Blood by Automated counOrdered By: Frida De La Cruz on 06-15-2022 WBC corrected for nucl RBC Auto (Bld) [#/Vol] 10.7 10*3/uL 3.8-11.6 [facility] Lymphocytes Auto (Bld) [#/Vo l]Ordered By: Frida De La Cruz on 06-15-2022 Lymphocytes (Bld) [#/Vol] 2.9 10*3/uL 1.00-4.8 [facility] Lymphocytes/100 WBC Auto (Bl d)Ordered By: Frida De La Cruz on 06-15-2022 Lymphocytes/100 WBC (Bld) 27.7 % . [facility] MCH Auto (RBC) [Entitic mass ]Ordered By: Frida De La Cruz on 06-15-2022 MCH (RBC) [Entitic mass] 33.9 pg 24.7-34.3 [facility] MCHC Auto (RBC) [Mass/Vol]Or dered By: Frida De La Cruz on 06-15-2022 MCHC (RBC) [Mass/Vol] 32.8 g/dL 32.0-35.0 [facility] MCV Auto (RBC) [Entitic vol] Ordered By: Frida De La Cruz on 06-15-2022 MCV (RBC) [Entitic vol] 103.3 fL 80-100 [facility] Monocytes Auto (Bld) [#/Vol] Ordered By: Frida De La Cruz on 06-15-2022 Monocytes (Bld) [#/Vol] 0.7 10*3/uL 0.0-0.8 [facility] Monocytes/100 WBC Auto (Bld) Ordered By: Frida De La Cruz on 06-15-2022 Monocytes/100 WBC (Bld) 6.9 % . [facility] Neutrophils Auto (Bld) [#/Vo l]Ordered By: Frida De La Cruz on 06-15-2022 Neutrophils (Bld) [#/Vol] 6.6 10*3/uL 1.8-7.7 [facility] Neutrophils/100 WBC Auto (Bl d)Ordered By: Frida De La Cruz on 06-15-2022 Neutrophils/100 WBC (Bld) 61.6 % . [facility] No Panel InformationOrdered By: Frida De La Cruz on 06-15-2022 Estimated GFR () > 60 mL/Min [facility] Comment on above: GFR estimated refere nce range: According to KDOQI guidelines, <60 ml/min/1.73m2 is sufficient to diagnose a patient with chronic kidney disease. Pharmacy Creatinine Clearance (Chem 48.32 [facility] Nucleated erythrocytes [Pres ence] in Blood by Automated countOrdered By: Frida De La Cruz on 06-15-2022 Nucleated RBC Auto Ql (Bld) 0.1 /100{WBC} 0-0.5 [facility] Platelet mean volume Auto (B ld) [Entitic vol]Ordered By: Frida De La Cruz on 06-15-2022 Platelet mean volume (Bld) [Entitic vol] 8.0 fL 6.3-10.7 [facility] Platelets Auto (Bld) [#/Vol] Ordered By: Frida De La Cruz on 06-15-2022 Platelets (Bld) [#/Vol] 282 10*3/uL 150-450 [facility] RBC Auto (Bld) [#/Vol]Ordere d By: Frida De La Cruz on 06-15-2022 RBC (Bld) [#/Vol] 4.01 10*6/uL 3.60-5.00 [facility] Serum or plasma anion gap de terminationOrdered By: Frida De La Cruz on 06-15-2022 Anion gap [Moles/Vol] 14.0 mmol/L 6.0-15.0 [facility] Serum or plasma calcium jerrod urement (mass/volume)Ordered By: Frida De La Cruz on 06-15-2022 Calcium [Mass/Vol] 9.5 mg/dL 8.2-10.2 [facility] Serum or plasma chloride salma surement (moles/volume)Ordered By: Frida De La Cruz on 06-15-2022 Chloride [Moles/Vol] 102 mmol/L 95-114 [facility] Serum or plasma glucose jerrod urement (mass/volume)Ordered By: Frida De La Cruz on 06-15-2022 Glucose [Mass/Vol] 142 mg/dL 70-100 [facility] Comment on above: ADA recommended refe rence rangeRandom Glucose Reference Range is dependent on time and content of last meal. Glucose of more than 200 mg/dL in a nonstressed, ambulatory subject supports the diagnosis of Diabetes Mellitus. Serum or plasma potassium me asurement (moles/volume)Ordered By: Frida De La Cruz on 06-15-2022 Potassium [Moles/Vol] 3.7 mmol/L 3.5-5.1 [facility] Serum or plasma sodium measu rement (moles/volume)Ordered By: Frida De La Cruz on 06-15-2022 Sodium [Moles/Vol] 134 mmol/L 136-146 [facility] Serum or plasma total carbon dioxide measurement (moles/volume)Ordered By: Frida De La Cruz on 06-15-2022 CO2 [Moles/Vol] 21.7 mmol/L 22.0-30.[address] [facility] Serum or plasma urea nitroge n measurement (mass/volume)Ordered By: Frida De La Cruz on 06-15-2022 Urea nitrogen [Mass/Vol] 15 mg/dL 03-06 [facility] WBC Auto (Bld) [#/Vol]Ordere d By: Frida De La Cruz on 06-15-2022 WBC (Bld) [#/Vol] 10.7 10*3/uL 3.8-11.6 [facility] ECG 12 lead ECGon 06-14-2022 ECG 12 lead ECG [facility] [place] [address] [place], [place] [id number] Electrocardiograph Report Signed Patient: Abdirahman Gomez MR#: [id number] : 1940 Acct:[id number] Age/Sex: 81 / F ADM Date: 06/09/22 Loc: Room: [address] [place] [address] Type: DIS IN Attending Dr: Frida De [...] Yoav Prado MD 0 06/15/22 0617 Normal [facility] Troponin I High Sensitivityo n 06-14-2022 Troponin I High Sensitivity 906 pg/mL Off scale high 0-15 [facility] Comment on above: Result Comment: Crit ical value result called at 1642 on 06/14/22 PERFORMED BY: [place] [address] PATHOLOGIST SHEAR GRINDER OPERATOR PILAR VILLARREAL M.D. Performed By: #### G KIRA #### Point of Care testing , Troponin I.cardiac [Mass/vol ume] in Serum or Plasma by High sensitivity methodOrdered By: Nathaniel Castillo on 06-14-2022 Troponin I.cardiac High sensitivity method [Mass/Vol] 906 pg/mL 0-15 [facility] Comment on above: Critical valueresult calledat 1642 on 06/14/22 A1C with Estimated Average Ginna tapia 06-13-2022 Glucose [Mass/Vol] 123 mg/dL Normal [facility] Comment on above: Result Comment: PERF ORMED BY: [place] [address] PATHOLOGIST SHEAR GRINDER OPERATOR PILAR VILLARREAL M.D. Performed By: #### L IPID, A1C [facility] eA #### [facility] [address] [place] [address] HbA1c (Bld) [Mass fraction] 5.9 % High 4.3-5.6 [facility] Comment on above: Result Comment: Incr eased risk for diabetes: 5.7 - 6.4 diabetes: >6.4 glycemic control for adults with diabetes: <7.0 Performed By: #### L IPID, A1C WT eA #### [facility] [address] [place] [address] Cholesterol [Mass/volume] in Serum or PlasmaOrdered By: Nathaniel Castillo on 06-13-2022 Cholesterol [Mass/Vol] 150 mg/dL 140-200 [facility] Comment on above: Chol less than 200 m g/dl low riskChol 201-239 mg/dl borderline riskChol 240 mg/dl and greater high risk Cholesterol in LDL Calc [Mas s/Vol]Ordered By: Nathaniel Castillo on 06-13-2022 Cholesterol in LDL [Mass/Vol] 80 mg/dL 0-100 [facility] Comment on above: LDL ATP III CLASSIFI CATIONLDL less than 100 mg/dL OptimalLDL 100-129 mg/dL Near or above optimalLDL 130-159 mg/dL Borderline highLDL 160-189 mg/dL HighLDL greater than 189 mg/dL Very high Cholesterol in VLDL Calc [Ma ss/Vol]Ordered By: Nathaniel Castillo on 06-13-2022 Cholesterol in VLDL [Mass/Vol] 25 mg/dL [facility] ECG 12 lead ECGon 06-13-2022 ECG 12 lead ECG [facility] [place] [address] Electrocardiograph Report Signed Patient: Abdirahman Gomez MR#: [id number] : 1940 Acct:[id number] Age/Sex: 81 / F ADM Date: 06/09/22 Loc: Room: [address] [place] [address] Type: DIS IN Attending Dr: Frida De [...] By Ousmane Epstein DO 06/15 1119 Normal [facility] Glucose mean value [Mass/vol ume] in Blood Estimated from glycated hemoglobinOrdered By: Nathaniel Castillo on 06-13-2022 Average glucose Estimated from glycated hemoglobin (Bld) [Mass/Vol] 123 mg/dL [facility] Hemoglobin A1c percentageOrd ered By: Nathaniel Castillo on 06-13-2022 HbA1c (Bld) [Mass fraction] 5.9 % 4.3-5.6 [facility] Comment on above: Increased risk for d iabetes: 5.7 - 6.4diabetes: >6.4glycemic control for adults with diabetes: <7.0 Lipid Panelon 06-13-2022 Cholesterol [Mass/Vol] 150 mg/dL Normal 140-200 [facility] Comment on above: Result Comment: Chol less than 200 mg/dl low risk Chol 201-239 mg/dl borderline risk Chol 240 mg/dl and greater high risk Performed By: #### L IPID, A1C WT eA #### [facility] [address] Cholesterol in HDL [Mass/Vol] 45 mg/dL Normal 35-85 [facility] Comment on above: Result Comment: HDL CHOL ATP-III CLASSIFICATION Cardiovascular Risk HDL > or equal to 60 mg/dL LOW HDL < 40 mg/dL HIGH Performed By: #### L IPID, [address] eA #### [facility] [address] Cholesterol.total/Gabriela sterol in HDL [Mass ratio] 3.3 {ratio} Normal <5.0 [facility] Comment on above: Result Comment: PERF ORMED BY: [place] [address] PATHOLOGIST SHEAR GRINDER OPERATOR PILAR VILLARREAL M.D. Performed By: #### L IPID, [address] eA #### [facility] [address] LDL Cholesterol,Calculated 80 mg/dL Normal 0-100 [facility] Comment on above: Result Comment: LDL ATP III CLASSIFICATION LDL less than 100 mg/dL Optimal LDL 100-129 mg/dL Near or above optimal LDL 130-159 mg/dL Borderline high LDL 160-189 mg/dL High LDL greater than 189 mg/dL Very high Performed By: #### L IPID, A1C WT eA #### [facility] [address] [place] [id number] [place] Triglyceride w/Reflex 127 mg/dL Normal 35-149 [facility] Comment on above: Result Comment: TRIG ATP III CLASSIFICATION TRIG less than 150 mg/dL Normal TRIG 150-199 mg/dL Borderline high TRIG 200-500 mg/dL High TRIG greater than 500 mg/dL Very high Standard traceable to the Center for Disease Conrtrol and Prevention (CDC) test method. Performed By: #### L IPID, A1C [facility] eA #### [facility] [address] VLDL CHOLESTEROL 25 mg/dL Normal [facility] Comment on above: Performed By: #### L IPID, A1C [facility] eA #### [facility] [address] Serum or plasma high density lipoprotein (HDL) cholesterol measurementOrdered By: Nathaniel Castillo on 06-13-2022 Cholesterol in HDL [Mass/Vol] 45 mg/dL 35-85 [facility] Comment on above: HDL CHOL ATP-III CLA SSIFICATION Cardiovascular RiskHDL > or equal to 60 mg/dL LOWHDL < 40 mg/dL HIGH Serum or plasma total choles terol/high density lipoprotein (HDL) cholesterol mass ratOrdered By: Nathaniel Castillo on 06-13-2022 Cholesterol.total/Gabriela sterol in HDL [Mass ratio] 3.3 {ratio} <5.0 [facility] Triglyceride [Mass/volume] i n Serum or PlasmaOrdered By: Nathaniel Castillo on 06-13-2022 Triglyceride [Mass/Vol] 127 mg/dL 35-149 [facility] Comment on above: TRIG ATP III CLASSIF ICATIONTRIG less than 150 mg/dL NormalTRIG 150-199 mg/dL Borderline highTRIG 200-500 mg/dL High TRIG greater than 500 mg/dL Very highStandard traceable to the Center for Disease Conrtrol and Prevention (CDC) test method. MR angio head wo conon 06-12 MR angio head wo con [facility] Main [place] [address] [place] [address] MRI Report Signed Patient: Abdirahman Gomez MR#: [id number] : 1940 Acct:[id number] Age/Sex: 81 / F ADM Date: 06/09/22 Loc: 3T Room: [address] [place] [address] Type: ADM IN Attending Dr: Nathaniel Castillo MD Copies to: Nathaniel Castillo MD Ordering Provider: Nathaniel Castillo MD Date of Service: 06/12/22 MR/MR angio head wo con: stroke MRA OF THE INTRACRANIAL CIRCULATION TECHNIQUE: 3-D miff-mx-nevmzi imaging of the [place] obtained. HISTORY:LEFT arm weakness. The visualized carotid and the vertebrobasilar system are unremarkable. No abnormality of the anterior, middle and posterior cerebral arteries identified. No arterial occlusion, stenosis or dissection identified. No intracranial aneurysm identified. MR/MR angio head wo con IMPRESSION: UNREMARKABLE MRA OF THE INTRACRANIAL CIRCULATION. Impression dictated by: Mamadou Rodríguez M.D.06/12/2022 1:36 PM Dictation Location: [place] [address] Transcribed By: [facility] 06/12/22 1336 Dictated By: Mamadou Rodríguez DO 06/12/22 1330 Signed By: 06/12/22 1336 [facility] MR head/brain wo conon 06-12 MR head/brain wo con [facility] [place] [address] MRI Report Signed Patient: Abdirahman Gomez MR#: [id number] : 1940 Acct:[id number] Age/Sex: 81 / F ADM Date: 06/09/22 Loc: Room: [address] [place] [address] Type: ADM IN Attending Dr: Nathaniel Castillo [...] Beasley Jr., D.O.06/12/2022 10:02 AM Dictation Location: [place] [address] Transcribed By: [facility] 06/12/22 1002 Dictated By: Stiven Beasley Jr, DO 06/12/22 0950 Signed By: 06/12/22 1002 Normal [facility] Complete Blood Count Auto Di ffon 06-11-2022 Basophils (Bld) [#/Vol] 0.1 10*3/uL Normal 0.0-0.2 [facility] Comment on above: Result Comment: PERF ORMED BY: [facility] [address] [place] [address] PATHOLOGIST SHEAR GRINDER OPERATOR PILAR VILLARREAL M.D. Performed By: #### G LULS #### Point of Care testing , Basophils/100 WBC (Bld) 0.5 % Normal . [facility] Comment on above: Performed By: #### G LULS #### Point of Care testing , Eosinophils (Bld) [#/Vol] 0.1 10*3/uL Normal 0.0-0.45 [facility] Comment on above: Performed By: #### G LULS #### Point of Care testing , Eosinophils/100 WBC (Bld) 1.2 % Normal . [facility] Comment on above: Performed By: #### G LULS #### Point of Care testing , Erythrocyte distribution width (RBC) [Ratio] 13.6 % Normal 11.9-15.3 [facility] Comment on above: Performed By: #### G LULS #### Point of Care testing , Hematocrit (Bld) [Volume fraction] 37.7 % Normal 34.0-46.4 [facility] Comment on above: Performed By: #### G LULS #### Point of Care testing , Hemoglobin (Bld) [Mass/Vol] 12.4 g/dL Normal 11.8-15.4 [facility] Comment on above: Performed By: #### G CARLEENLS #### Point of Care testing , Lymphocytes (Bld) [#/Vol] 2.8 10*3/uL Normal 1.00-4.8 [facility] Comment on above: Performed By: #### G CARLEENLS #### Point of Care testing , Lymphocytes/100 WBC (Bld) 24.1 % Normal . [facility] Comment on above: Performed By: #### G CARLEENLS #### Point of Care testing , MCH (RBC) [Entitic mass] 34.5 pg High 24.7-34.3 [facility] Comment on above: Performed By: #### G CARLEENLS #### Point of Care testing , MCV (RBC) [Entitic vol] 104.5 fL High 80-100 [facility] Comment on above: Performed By: #### G CARLEENLS #### Point of Care testing , Mean Corpuscular HGB Conc 33.0 g/dL Normal 32.0-35.0 [facility] Comment on above: Performed By: #### G CARLEENLS #### Point of Care testing , Monocytes (Bld) [#/Vol] 1.0 10*3/uL High 0.0-0.8 [facility] Comment on above: Performed By: #### G CARLEENLS #### Point of Care testing , Monocytes/100 WBC (Bld) 9.1 % Normal . [facility] Comment on above: Performed By: #### G CARLEENLS #### Point of Care testing , Neutrophils (Bld) [#/Vol] 7.4 10*3/uL Normal 1.8-7.7 [facility] Comment on above: Performed By: #### G CARLEENLS #### Point of Care testing , Neutrophils/100 WBC (Bld) 65.1 % Normal . [facility] Comment on above: Performed By: #### G CARLEENLS #### Point of Care testing , NRBC% 0.1 /100{WBC} Normal 0-0.5 [facility] Comment on above: Performed By: #### G LULS #### Point of Care testing , Platelet mean volume (Bld) [Entitic vol] 8.0 fL Normal 6.3-10.7 [facility] Comment on above: Performed By: #### G LULS #### Point of Care testing , Platelets (Bld) [#/Vol] 206 10*3/uL Normal 150-450 [facility] Comment on above: Performed By: #### G LULS #### Point of Care testing , RBC (Bld) [#/Vol] 3.61 10*6/uL Normal 3.60-5.00 [facility] Comment on above: Performed By: #### G LULS #### Point of Care testing , WBC (Bld) [#/Vol] 11.4 10*3/uL Normal 3.8-11.6 [facility] Comment on above: Performed By: #### G LULS #### Point of Care testing , ECG 12 lead ECGon 06-11-2022 ECG 12 lead ECG [facility] [place] [address] Electrocardiograph Report Signed Patient: Abdirahman Gomez MR#: [id number] : 1940 Acct:[id number] Age/Sex: 81 / F ADM Date: 06/09/22 Loc: Room: [address] [place] [address] Type: DIS IN Attending Dr: Frida De [...] By Yoav Prado MD 1 1318 Normal [facility] Troponin I High Sensitivityo n 06-11-2022 Troponin I High Sensitivity 3701 pg/mL Off scale high 0-15 [facility] Comment on above: Result Comment: Resu lts called at 0655 on 06/11/22 PERFORMED BY: [place] [address] PATHOLOGIST SHEAR GRINDER OPERATOR PILAR VILLARREAL M.D. Performed By: #### L IPID, A1C [facility] eA #### [place] [id number] [facility] XR chest 1V portableon 06-11 XR chest 1V portable [facility] Main [place] [address] [place] [address] XRay Report Signed Patient: Abdirahman Gomez MR#: [id number] : 1940 Acct:[id number] Age/Sex: 81 / F ADM Date: 06/09/22 Loc: Room: [address] [place] [address] Type: ADM IN Attending Dr: Nathaniel Castillo [...] Beasley Jr., D.OHuma06/11/2022 3:33 PM Dictation Location: [place] [address] Transcribed By: [facility] 06/11/22 1533 Dictated By: Stiven Beasley Jr DO 06/11/22 1533 Signed By: 06/11/22 1533 [facility] ECG 12 lead ECGon 06-10-2022 ECG 12 lead ECG [facility] Main [place] [id number] Electrocardiograph Report Signed Patient: Abdirahman Gomez MR#: [id number] : 1940 Acct:[id number] Age/Sex: 81 / F ADM Date: 06/09/22 Loc: 3T Room: [address] [place] [address] Type: DIS IN Attending Dr: Frida De [...] By Yoav Prado MD 1 08/11/21 1626 [facility] ECG 12 lead ECG [facility] Main [address] [address] Electrocardiograph Report Signed Patient: Abdirahman Gomez MR#: [id number] : 1940 Acct:[id number] Age/Sex: 81 / F ADM Date: 06/09/22 Loc: Room: [address] [place] [address] Type: DIS IN Attending Dr: Frida De [...] By Yoav Prado MD 1 08/11/21 1626 [facility] Basic Metabolic Panelon 12-2 Anion gap [Moles/Vol] 13.4 mmol/L Normal 6.0-15.0 [facility] Comment on above: Performed By: #### L IPID, [address] eA #### [facility] [address] [place] [id number] [place] Calcium [Mass/Vol] 8.9 mg/dL Normal 8.2-10.2 [facility] Comment on above: Performed By: #### L IPID, [address] eA #### [facility] [address] [place] [address] [place] Chloride [Moles/Vol] 106 mmol/L Normal 95-114 [facility] Comment on above: Performed By: #### L IPID, [address] eA #### [facility] [address] [place] [address] [place] CO2 [Moles/Vol] 21.6 mmol/L Low 22.0-30.[address] [facility] Comment on above: Performed By: #### L IPID, [address] eA #### [facility] [address] [place] [id number] [place] Creatinine [Mass/Vol] 0.76 mg/dL Normal 0.44-1.03 [facility] Comment on above: Performed By: #### L IPID, A1C WTH eA #### [facility] [address] [place] [address] [place] Creatinine Clr Calc Pharmacy 49.92 [facility] Comment on above: Performed By: #### L IPID, A1C WTH eA #### [facility] [address] [place] [address] [place] Estimated GFR ( Rose > 60 [facility] Comment on above: Result Comment: GFR estimated reference range: According to KDOQI guidelines, <60 ml/min/1.73m2 is sufficient to diagnose a patient with chronic kidney disease. Performed By: #### L IPID, A1C WTH eA #### [facility] [address] Estimated GFR (Non- Am > 60 [facility] Comment on above: Performed By: #### L IPID, A1C WTH eA #### [address] Glucose [Mass/Vol] 136 mg/dL High 70-100 [facility] Comment on above: Result Comment: [place] om Glucose Reference Range is dependent on time and content of last meal. Glucose of more than 200 mg/dL in a nonstressed, ambulatory subject supports the diagnosis of Diabetes Mellitus. ADA recommended reference range Performed By: #### L IPID, A1C WTH e[place] #### [place] [address] [place] Potassium [Moles/Vol] 4.0 mmol/L Normal 3.5-5.1 [facility] Comment on above: Performed By: #### L IPID, A1C WTH eA #### [facility] [address] [place] [address] [place] Sodium [Moles/Vol] 137 mmol/L Normal 136-146 [facility] Comment on above: Performed By: #### L IPID, A1C WTH eA #### [facility] [address] [place] [address] [place] Urea nitrogen [Mass/Vol] 9 mg/dL Normal 9-23 [facility] Comment on above: Performed By: #### L IPID, A1C WTH eA #### [facility] [address] CBC W MANUAL DIFFon 06-09-20 22 ATYPICAL LYMPH # 0.53 103/ul Normal [facility] Comment on above: Performed By: #### T SH, BNP, CMP, LIPID, T7 #### [facility] [address] [place] [address] [address] Logan Pyane ATYPICAL LYMPH % 4 % Normal [facility] Comment on above: Performed By: #### T SH, BNP, CMP, LIPID, T7 #### [facility] [address] [place] [address] [address] Logan Payne BAND # 0.0 103/ul Normal 0.0-0.3 [facility] Comment on above: Performed By: #### T SH, BNP, CMP, LIPID, T7 #### [facility] [address] [place] [address] Dr. Logan Payne BAND % 0 % Normal 0-5 [facility] Comment on above: Performed By: #### T SH, BNP, CMP, LIPID, T7 #### [facility] [address] [place] [address] [address] Logan Payne BASOM # 0.26 103/ul Critically high 0.00-0.10 [facility] Comment on above: Performed By: #### T SH, BNP, CMP, LIPID, T7 #### [facility] [address] [place] [address] [address] Logan Payne BASOM % 2.0 % Normal 0.2-2.0 [facility] Comment on above: Performed By: #### T SH, BNP, CMP, LIPID, T7 #### [facility] [address] [place] [address] [address] Logan Payne BLAST # Normal [facility] Comment on above: Performed By: #### T SH, BNP, CMP, LIPID, T7 #### [facility] [address] [place] [address] [address] Logan Payne BLAST % Normal [facility] Comment on above: Performed By: #### T SH, BNP, CMP, LIPID, T7 #### [facility] [address] [place] [address] [address] Logan Payne CORRECTED WBC Normal 4.0-11.0 [facility] Comment on above: Performed By: #### T SH, BNP, CMP, LIPID, T7 #### [facility] [address] [place] [address] [address] Logan Payne EOS # 0.66 103/ul Normal 0.00-0.70 [facility] Comment on above: Performed By: #### T SH, BNP, CMP, LIPID, T7 #### [facility] [address] [place] [address] [address] Logan Payne EOS% 5.0 % Normal 0.9-7.0 [facility] Comment on above: Performed By: #### T SH, BNP, CMP, LIPID, T7 #### [facility] [address] [place] [address] [address] Logan Payne HCT 39.6 % Normal 36.0-48.0 [facility] Comment on above: Performed By: #### T SH, BNP, CMP, LIPID, T7 #### [facility] [address] [place] [address] [address] Logan Payne HGB 13.5 g/dl Normal 12.0-16.0 [facility] Comment on above: Performed By: #### T SH, BNP, CMP, LIPID, T7 #### [facility] [address] [place] [address] [address] Logan Payne LYMPHM # 1.98 103/ul Normal 1.20-3.80 [facility] Comment on above: Performed By: #### T SH, BNP, CMP, LIPID, T7 #### [facility] [address] [place] [address] [address] Logan Payne LYMPHM% 15.0 % Critically low 20.5-60.0 [facility] Comment on above: Performed By: #### T SH, BNP, CMP, LIPID, T7 #### [facility] [address] [place] [address] [address] Logan Payne MCH 34.1 pg Critically high 26.7-34.0 [facility] Comment on above: Performed By: #### T SH, BNP, CMP, LIPID, T7 #### [facility] [address] [place] [address] [address] Logan Payne MCHC 34.1 g/dl Normal 29.9-35.2 [facility] Comment on above: Performed By: #### T SH, BNP, CMP, LIPID, T7 #### [facility] [address] [place] [address] [address] Logan Payne MCV 100.0 fL Critically high 81.0-99.0 [facility] Comment on above: Performed By: #### T SH, BNP, CMP, LIPID, T7 #### [facility] [address] [place] [address] Dr. Logan Payne METAMYELOCYTE # Normal [facility] Comment on above: Performed By: #### T SH, BNP, CMP, LIPID, T7 #### [facility] [address] [place] [address] Dr. Logan Payne METAMYELOCYTE % Normal [facility] Comment on above: Performed By: #### T SH, BNP, CMP, LIPID, T7 #### [facility] [address] [place] [address] Dr. Logan Payne MONOM# 1.85 103/ul Critically high 0.30-0.80 [facility] Comment on above: Performed By: #### T SH, BNP, CMP, LIPID, T7 #### [facility] [address] [place] [address] Dr. Logan Payne MONOM% 14.0 % Critically high 1.7-12.0 [facility] Comment on above: Performed By: #### T SH, BNP, CMP, LIPID, T7 #### [facility] [address] [place] [address] Dr. Logan Payne MPV 9.3 fL Critically low 9.5-13.5 [facility] Comment on above: Performed By: #### T SH, BNP, CMP, LIPID, T7 #### [facility] [address] [place] [address] Dr. Logan Payne MYELOCYTE # Normal [facility] Comment on above: Performed By: #### T SH, BNP, CMP, LIPID, T7 #### [facility] [address] [place] [address] [address] Logan Payne MYELOCYTE % Normal [facility] Comment on above: Performed By: #### T SH, BNP, CMP, LIPID, T7 #### [facility] [address] [place] [address] [address] Logan Payne NRBC Normal [facility] Comment on above: Performed By: #### T SH, BNP, CMP, LIPID, T7 #### [facility] [address] [place] [address] [address] Logan Payne PLT 219 103/ul Normal 150-450 [facility] Comment on above: Performed By: #### T SH, BNP, CMP, LIPID, T7 #### [facility] [address] [place] [address] [address] Logan Payne RBC 3.96 106/ul Critically low 4.20-5.40 [facility] Comment on above: Performed By: #### T SH, BNP, CMP, LIPID, T7 #### [facility] [address] [place] [address] [address] Logan Payne RDW 13.2 % Normal 11.0-15.0 [facility] Comment on above: Performed By: #### T SH, BNP, CMP, LIPID, T7 #### [facility] [address] [place] [address] [address] Logan Payne SEG # 7.92 103/ul Critically high 1.40-6.50 [facility] Comment on above: Performed By: #### T SH, BNP, CMP, LIPID, T7 #### [facility] [address] [place] [address] [address] Logan Payne SEG % 60.0 % Normal 43.0-75.0 [facility] Comment on above: Performed By: #### T SH, BNP, CMP, LIPID, T7 #### [facility] [address] [place] [address] [address] Logan Payne WBC 13.2 103/ul Critically high 4.0-11.0 [facility] Comment on above: Performed By: #### T SH, BNP, CMP, LIPID, T7 #### [facility] [address] [place] [address] [address] Logan Payne CULTURE BLOODon 06-09-2022 Microscopic examination of blood, culture Culture Observations: NO GROWTH AT 5 DAYS. Isolate 1 BC_BA_NA Normal [facility] Comment on above: Performed By: #### T SH, BNP, CMP, LIPID, T7 #### [facility] [address] [place] [address] [address] Logan Payne Microscopic examination of blood, culture Culture Observations: NO GROWTH AT 5 DAYS. Isolate 1 BC_BA_NA Normal [facility] Comment on above: Performed By: #### T SH, BNP, CMP, LIPID, T7 #### [facility] [address] [place] [address] [address] Logan Payne Complete Blood Count Auto Di ffon 06-09-2022 Basophils (Bld) [#/Vol] 0.1 10*3/uL Normal 0.0-0.2 [facility] Comment on above: Result Comment: PERF ORMED BY: [place] [address] PATHOLOGIST SHEAR GRINDER OPERATOR PILAR VILLARREAL M.D. Performed By: #### L IPID, [address] eA #### [facility] [address] [place] [address] [place] Basophils/100 WBC (Bld) 0.4 % Normal . [facility] Comment on above: Performed By: #### L IPID, A1C [facility] eA #### [facility] [address] [place] [address] [place] Eosinophils (Bld) [#/Vol] 0.1 10*3/uL Normal 0.0-0.45 [facility] Comment on above: Performed By: #### L IPID, [address] eA #### [facility] [address] [place] [address] [place] Eosinophils/100 WBC (Bld) 0.5 % Normal . [facility] Comment on above: Performed By: #### L IPID, A1C WTH eA #### [address] Erythrocyte distribution width (RBC) [Ratio] 13.8 % Normal 11.9-15.3 [facility] Comment on above: Performed By: #### L IPID, A1C WTH eA #### [address] Hematocrit (Bld) [Volume fraction] 41.0 % Normal 34.0-46.4 [facility] Comment on above: Performed By: #### L IPID, A1C WT eA #### [address] Hemoglobin (Bld) [Mass/Vol] 13.6 g/dL Normal 11.8-15.4 [facility] Comment on above: Performed By: #### L IPID, A1C WTH eA #### [address] Lymphocytes (Bld) [#/Vol] 2.3 10*3/uL Normal 1.00-4.8 [facility] Comment on above: Performed By: #### L IPID, A1C WT eA #### [address] Lymphocytes/100 WBC (Bld) 17.2 % Normal . [facility] Comment on above: Performed By: #### L IPID, A1C WT eA #### [place] [address] [place] MCH (RBC) [Entitic mass] 34.4 pg High 24.7-34.3 [facility] Comment on above: Performed By: #### L IPID, A1C WTH eA #### [place] [address] [place] MCV (RBC) [Entitic vol] 103.6 fL High 80-100 [facility] Comment on above: Performed By: #### L IPID, A1C WTH eA #### [address] Mean Corpuscular HGB Conc 33.2 g/dL Normal 32.0-35.0 [facility] Comment on above: Performed By: #### L IPID, [address] eA #### [facility] [address] [place] [address] [place] Monocytes (Bld) [#/Vol] 1.3 10*3/uL High 0.0-0.8 [facility] Comment on above: Performed By: #### L IPID, [address] eA #### [facility] [address] [place] [address] [place] Monocytes/100 WBC (Bld) 10.1 % Normal . [facility] Comment on above: Performed By: #### L IPID, [address] eA #### [place] [address] [place] Neutrophils (Bld) [#/Vol] 9.5 10*3/uL High 1.8-7.7 [facility] Comment on above: Performed By: #### L IPID, [address] eA #### [place] [address] [place] Neutrophils/100 WBC (Bld) 71.8 % Normal . [facility] Comment on above: Performed By: #### L IPID, [address] eA #### [place] [address] [place] NRBC% 0.0 /100{WBC} Normal 0-0.5 [facility] Comment on above: Performed By: #### L IPID, [address] eA #### [facility] [address] [place] [address] [place] Platelet mean volume (Bld) [Entitic vol] 8.1 fL Normal 6.3-10.7 [facility] Comment on above: Performed By: #### L IPID, [address] eA #### [facility] [address] [place] [address] [place] Platelets (Bld) [#/Vol] 199 10*3/uL Normal 150-450 [facility] Comment on above: Performed By: #### L IPID, [address] eA #### [facility] [address] [place] [id number] [place] RBC (Bld) [#/Vol] 3.96 10*6/uL Normal 3.60-5.00 [facility] Comment on above: Performed By: #### L IPID, A1C [facility] eA #### [facility] [address] [place] [address] [facility] WBC (Bld) [#/Vol] 13.2 10*3/uL High 3.8-11.6 [facility] Comment on above: Performed By: #### L IPID, A1C [facility] eA #### [facility] [address] Covid-19 PCR ([facility])on 05-15 SARS-CoV-2 (COVID-19) RNA CAROL+probe Ql (Unsp spec) Not detected Normal NOT DETECTED [facility] Comment on above: Result Comment: When diagnostic [...] for this test is supported by the Electrical Installation Inspector of Health and Human Service's declaration that [...] T SH, BNP, CMP, LIPID, T7 #### [facility] Laboratory [address] [address] [address] Logan Payne ECG 12 lead ECGon 06-09-2022 ECG 12 lead ECG [facility] Main [place] [address] [place] [address] Electrocardiograph Report Signed Patient: Abdirahman Gomez MR#: [id number] : 1940 Acct:[id number] Age/Sex: 81 / F ADM Date: 06/09/22 Loc: 3T Room: [address] [place] [address] Type: DIS IN Attending Dr: Frida De [...] By Yoav Prado MD 1 08/10/21 1709 [facility] ECH echo transthoracicon [facility] echo transthoracic [facility] [address] Echocardiogram Signed Patient: Abdirahman Gomez MR#: [id number] : 1940 Acct:[id number] Age/Sex: 81 / F ADM Date: 06/09/22 Loc: 3T Room: [address] [place] [address] Type: DIS IN Attending Dr: Frida De [...] By: Yoav Prado MD 06/09/22 1653 Normal [facility] Folate [Mass/volume] in Seru m or PlasmaOrdered By: Nathaniel Castillo on 06-09-2022 Folate [Mass/Vol] ng/mL >5.9 [facility] Comment on above: Folate reference ran ge: >5.9 ng/mlThe WHO technical consultation on folate and vitamin [id number] has determined that folate concentrations lessthan 4 ng/ml are considered deficient. LACTATE/LACTIC ACIDon 2021 Lactate [Moles/Vol] 1.1 mmol/L Normal 0.4-1.9 [facility] Comment on above: Performed By: #### T SH, BNP, CMP, LIPID, T7 #### [facility] [address] [place], [place] [address] Dr. Logan Payne Lactate [Moles/Vol] 1.8 mmol/L Normal 0.4-1.9 [facility] Comment on above: Performed By: #### T SH, BNP, CMP, LIPID, T7 #### [facility] [address] [place], [place] [address] Dr. Logan Payne Laboratory - Chemistry and C hemistry - challengeOrdered By: Nathaniel Castillo on 06-09-2022 Cobalamin (Vitamin B12) [Mass/Vol] 480 pg/mL 180-914 [facility] Laboratory - Chemistry and C hemistry - challengeOrdered By: Rossi Valdez on 06-09-2022 Magnesium [Mass/Vol] 1.8 mg/dL 1.6-2.6 [facility] Magnesiumon 06-09-2022 Magnesium [Mass/Vol] 1.8 mg/dL Normal 1.6-2.6 [facility] Comment on above: Result Comment: PERF ORMED BY: [place] [address] PATHOLOGIST SHEAR GRINDER OPERATOR PILAR VILLARREAL M.D. Performed By: #### L IPID, A1C WTH eA #### [place] [address] [place] OCC BLD IMMUNO SCREENon 05-15 OCCULT BLOOD Positive Abnormal NEGATIVE [facility] Comment on above: Performed By: #### T SH, BNP, CMP, LIPID, T7 #### [facility] [address] [address] [address] Logan Payne PROF 14(COMP METB)on 022 Albumin [Mass/Vol] 3.3 g/dL Critically low 3.4-5.0 [facility] Comment on above: Performed By: #### C MP, HSTROPN #### [facility] [address] [place] [address] Dr. Logan Payne Albumin/Globulin [Mass ratio] 0.8 {ratio} Normal [facility] Comment on above: Performed By: #### C MP, HSTROPN #### [facility] [address] [address] [address] Logan Payne ALP [Catalytic activity/Vol] 95 U/L Normal 46-116 [facility] Comment on above: Performed By: #### C MP, HSTROPN #### [facility] [address] [address] [address] Logan Payne ALT [Catalytic activity/Vol] 36 U/L Normal 14-59 [facility] Comment on above: Performed By: #### C MP, HSTROPN #### [facility] [address] [address] [address] Logan Payne Anion gap [Moles/Vol] 14.7 mmol/L Normal [facility] Comment on above: Performed By: #### C MP, HSTROPN #### [facility] [address] [address] [address] Logan Payne AST [Catalytic activity/Vol] 75 U/L Critically high 15-37 [facility] Comment on above: Performed By: #### C MP, HSTROPN #### [facility] [address] [address] [address] Logan Payne Bilirubin [Mass/Vol] 0.4 mg/dL Normal 0.2-1.0 [facility] Comment on above: Performed By: #### C MP, HSTROPN #### [facility] [address] [place] [address] Dr. Logan Payne Calcium [Mass/Vol] 8.7 mg/dL Normal 8.5-10.1 [facility] Comment on above: Performed By: #### C MP, HSTROPN #### [facility] [address] [place] [address] Dr. Logan Payne Chloride [Moles/Vol] 103 mmol/L Normal 98-107 [facility] Comment on above: Performed By: #### C MP, HSTROPN #### [facility] [address] [place] [address] Dr. Logan Payne CO2 [Moles/Vol] 21.3 mmol/L Normal 21.0-32.0 [facility] Comment on above: Performed By: #### C MP, HSTROPN #### [facility] [address] [place] [address] Dr. Logan Payne Creatinine [Mass/Vol] 0.83 mg/dL Normal 0.55-1.02 [facility] Comment on above: Performed By: #### C MP, HSTROPN #### [facility] [address] [place] [address] Dr. Logan Payne EGFR-AF FILIPINO >60 Normal >=60 [facility] Comment on above: Performed By: #### C MP, HSTROPN #### [facility] [address] [place] [address] Dr. Logan Payne EGFR-NON AF FILIPINO >60 Normal >=60 [facility] Comment on above: Performed By: #### C MP, HSTROPN #### [facility] [address] [place] [address] Dr. Logan Payne Globulin (S) [Mass/Vol] 4.1 g/dL Normal [facility] Comment on above: Performed By: #### C MP, HSTROPN #### [facility] [address] [place] [address] Dr. Logan Payne Glucose [Mass/Vol] 141 mg/dL Critically high 74-106 [facility] Comment on above: Performed By: #### C MP, HSTROPN #### [facility] [address] [place] [address] Dr. Logan Payne Potassium [Moles/Vol] 4.0 mmol/L Normal 3.5-5.1 [facility] Comment on above: Performed By: #### C JOSE, HSTROPN #### [facility] [address] [place] [address] Dr. Logan Payne Protein [Mass/Vol] 7.4 g/dL Normal 6.4-8.2 [facility] Comment on above: Performed By: #### C JOSE, HSTROPN #### [facility] [address] [place] [address] Dr. Logan Payne Sodium [Moles/Vol] 135 mmol/L Critically low 136-145 [facility] Comment on above: Performed By: #### C JOSE, HSTROPN #### [facility] [address] [place] [address] Dr. Logan Payne Urea nitrogen [Mass/Vol] 16.0 mg/dL Normal 7.0-18.0 [facility] Comment on above: Performed By: #### C JOSE, HSTROPN #### [facility] [address] [place] [address] Dr. Logan Payne Urea nitrogen/Creatinine [Mass ratio] 19.3 mg/mg Normal [facility] Comment on above: Performed By: #### C MP, HSTROPN #### [facility] [address] [place] [address] Dr. Logan Payne PROTIMEon 06-09-2022 INR Coag (PPP) [Relative time] 0.98 {INR} Normal [facility] Comment on above: Performed By: #### T SH, BNP, CMP, LIPID, T7 #### [facility] [address] [place] [address] Dr. Logan Payne INR GUIDELINES SEE BELOW Normal [facility] Comment on above: Result Comment: FERCHO RED INR: 2.0 - 3.0 CONDITIONS NOT LISTED BELOW 2.5 - 3.5 FOR PROSTHETIC HEART VALVE REPLACEMENT 2.5 - 3.5 RECURRENT THROMBOSIS Performed By: #### T SH, BNP, CMP, LIPID, T7 #### [facility] [address] [address] [address] Logan Payne PT Coag (PPP) [Time] 10.6 s Normal 9.0-11.6 [facility] Comment on above: Performed By: #### T SH, BNP, CMP, LIPID, T7 #### [facility] [address] [place] [address] Dr. Logan Payne PTTon 06-09-2022 aPTT Coag (Bld) [Time] 30.0 s Normal 22.3-36.2 [facility] Comment on above: Performed By: #### T SH, BNP, CMP, LIPID, T7 #### [facility] [address] [place] [address] Dr. Logan Payne TROPONIN, HIGH SENSITIVITYon 06-09-2022 HSTROP 8564.4 pg/mL Critically high 4.0-51.3 [facility] Comment on above: Result Comment: CUT- OFF POINTS HAVE BEEN ESTABLISHED BASED ON THE FOURTH UNIVERSAL DEFINITIONS OF MYOCARDIAL INFARCTION. THE UPPER REFERENCE LIMIT (URL) OF TROPONIN, DEFINED THE 99TH PERCENTILE OF cTnI DISTRIBUTION IN A REFERENCE POPULATION, HAS BEEN CONFIRMED THE DECISION THRESHOLD FOR MT DIAGNOSIS. Performed By: #### T SH, BNP, CMP, LIPID, T7 #### [facility] [address] [place] [address] Dr. Logan Payne HSTROP 9385.6 pg/mL Critically high 4.0-51.3 [facility] Comment on above: Result Comment: CUT- OFF POINTS HAVE BEEN ESTABLISHED BASED ON THE FOURTH UNIVERSAL DEFINITIONS OF MYOCARDIAL INFARCTION. THE UPPER REFERENCE LIMIT (URL) OF TROPONIN, DEFINED THE 99TH PERCENTILE OF cTnI DISTRIBUTION IN A REFERENCE POPULATION, HAS BEEN CONFIRMED THE DECISION THRESHOLD FOR MT DIAGNOSIS. Performed By: #### C MP, HSTROPN #### [facility] [address] [place], [place] [address] Dr. Logan Payne TYPE AND SCREENon 06-09-2022 TYPE AND SCREEN Negative Normal [facility] Comment on above: Performed By: #### T SH, BNP, CMP, LIPID, T7 #### [facility] [address] [place], [place] [address] Dr. Logan Payne Troponin I High Sensitivityo n 06-09-2022 Troponin I High Sensitivity 6364 pg/mL Off scale high 0-15 [facility] Comment on above: Result Comment: Resu lts called at 1303 on 06/09/22 PERFORMED BY: [place] [address] PATHOLOGIST SHEAR GRINDER OPERATOR PILAR VILLARREAL M.D. Performed By: #### L IPID, [address] eA #### [facility] [address] [place] [address] Troponin I High Sensitivity 6431 pg/mL Off scale high 0-15 [facility] Comment on above: Result Comment: Resu lts called at 1006 on 06/09/22 PERFORMED BY: [place] [address] PATHOLOGIST SHEAR GRINDER OPERATOR PILAR VILLARREAL M.D. Performed By: #### L IPID, [address] eA #### [facility] [address] [place] [address] Troponin I High Sensitivity 6373 pg/mL Off scale high 0-15 [facility] Comment on above: Result Comment: Resu lts called at 0710 on 06/09/22 PERFORMED BY: [place] [address] PATHOLOGIST SHEAR GRINDER OPERATOR PILAR VILLARREAL M.D. Performed By: #### G LULS #### Point of Care testing , Vit. B12/Folate Profileon Cobalamin (Vitamin B12) [Mass/Vol] 480 pg/mL Normal 180-914 [facility] Comment on above: Order Comment: Comme nt addon Performed By: #### G CARLEENLS #### Point of Care testing , Folate > 22.3 Normal >5.9 [facility] Comment on above: Order Comment: Comme nt addon Result Comment: Niyah te reference range: >5.9 ng/ml The WHO technical consultation on folate and vitamin b12 deficiencies has determined that folate concentrations less than 4 ng/ml are considered deficient. PERFORMED BY: [facility] [address] [place] [address] PATHOLOGIST SHEAR GRINDER OPERATOR PILAR VILLARREAL M.D. Performed By: #### G KIRA #### Point of Care testing , BASIC METABOLIC PANELon 11-12 Calcium [Mass/Vol] 9.1 mg/dL Normal 8.6-10.3 [facility] Comment on above: Order Comment: No: D o not add to previous draw Performed By: #### 0 0071, 94891 #### [facility] [address] [place] [address], [place] Chloride [Moles/Vol] 104 mmol/L Normal 98-107 [facility] Comment on above: Order Comment: No: D o not add to previous draw Performed By: #### 0 0071, 10726 #### [facility] [address] [place] [address], [place] CO2 [Moles/Vol] 22 mmol/L Normal 21-31 [facility] Comment on above: Order Comment: No: D o not add to previous draw Performed By: #### 0 0071, 05465 #### [facility] [address] [place] [address], [place] Creatinine [Mass/Vol] 0.80 mg/dL Normal 0.60-1.20 [facility] Comment on above: Order Comment: No: D o not add to previous draw Performed By: #### 0 0071, 20551 #### [facility] [address] [place] [address], [place] GFR/1.73 sq M.predicted among blacks MDRD (S/P/Bld) [Vol rate/Area] mL/min/{1.73_m2} Normal >60 [facility] Comment on above: Order Comment: No: D o not add to previous draw Result Comment: Calc ulation may not be valid for patients over 70 years Performed By: #### 0 0071, 44942 #### [facility] [address] [place] [address], [place] GFR/1.73 sq M.predicted among non-blacks MDRD (S/P/Bld) [Vol rate/Area] mL/min/{1.73_m2} Normal >60 [facility] Comment on above: Order Comment: No: D o not add to previous draw Result Comment: Calc ulation may not be valid for patients over 70 years Performed By: #### 0 0071, 18042 #### [facility] [address] [place] [address], [place] Glucose [Mass/Vol] 99 mg/dL Normal 70-100 [facility] Comment on above: Order Comment: No: D o not add to previous draw Performed By: #### 0 0071, 60689 #### [facility] [address] [place] [address], [place] Potassium [Moles/Vol] 4.2 mmol/L Normal 3.5-5.1 [facility] Comment on above: Order Comment: No: D o not add to previous draw Performed By: #### 0 0071, 55503 #### [facility] [address] [place] [address], [place] Sodium [Moles/Vol] 137 mmol/L Normal 136-145 [facility] Comment on above: Order Comment: No: D o not add to previous draw Performed By: #### 0 0071, 33314 #### [facility] [address] [place] [address], [place] Urea nitrogen [Mass/Vol] 11 mg/dL Normal 7-25 [facility] Comment on above: Order Comment: No: D o not add to previous draw Performed By: #### 0 0071, 34217 #### [facility] [address] [place] [address], [facility] CBC COMPLETE BLOOD COUNTon 0 11-25-2021 Erythrocyte distribution width (RBC) [Ratio] 12.9 % Normal 11.5-15.0 [facility] Comment on above: Order Comment: No: D o not add to previous draw Performed By: #### 3 2043 #### [facility] [address] [place] [address], [facility] Hematocrit (Bld) [Volume fraction] 42.7 % Normal 36.0-45.0 [facility] Comment on above: Order Comment: No: D o not add to previous draw Performed By: #### 3 2043 #### [facility] [address] [place] [address], [facility] Hemoglobin (Bld) [Mass/Vol] 14.3 g/dL Normal 12.0-15.0 [facility] Comment on above: Order Comment: No: D o not add to previous draw Performed By: #### 3 2043 #### [facility] [address] [facility] [place] [address], [facility] MCH (RBC) [Entitic mass] 33.9 pg High 27.0-33.0 [facility] Comment on above: Order Comment: No: D o not add to previous draw Performed By: #### 3 2043 #### [facility] [address] [place] [address], [facility] MCHC (RBC) [Mass/Vol] 33.5 g/dL Normal 32.0-35.0 [facility] Comment on above: Order Comment: No: D o not add to previous draw Performed By: #### 3 2043 #### [facility] [address] [place] [address], [facility] MCV (RBC) [Entitic vol] 101.2 fL High 82.0-98.0 T [facility] Comment on above: Order Comment: No: D o not add to previous draw Performed By: #### 3 2043 #### [facility] [address] [place] [address], [facility] Nucleated RBC/100 WBC (Bld) [Ratio] 0 % Normal 0-0 [facility] Comment on above: Order Comment: No: D o not add to previous draw Performed By: #### 3 2043 #### [facility] [address] [place] [address], [place] PLAT CNT 211 10*3/uL Normal 150-400 [facility] Comment on above: Order Comment: No: D o not add to previous draw Performed By: #### 3 2043 #### [facility] [address] [place] [address], [facility] RBC (Bld) [#/Vol] 4.22 10*6/uL Normal 3.80-5.00 [facility] Comment on above: Order Comment: No: D o not add to previous draw Performed By: #### 3 2043 #### [facility] [address] [place] [address], [facility] WBC (Bld) [#/Vol] 11.25 10*3/uL High 4.00-10.60 [facility] Comment on above: Order Comment: No: D o not add to previous draw Performed By: #### 3 2043 #### [facility] [address] [place] [address], [facility] HEMOGLOBIN A1Con 11-25-2021 Glucose [Moles/Vol] 128 mmol/L Normal [facility] Comment on above: Order Comment: If no t done in EDNo: Do not add to previous draw Performed By: #### 3 2043 #### [facility] [address] [place] [address], [facility] HbA1c (Bld) [Mass fraction] 6.1 % High 4.0-6.0 [facility] Comment on above: Order Comment: If no t done in EDNo: Do not add to previous draw Performed By: #### 3 2043 #### [address] [address], [facility] MAGNESIUM BLOODon 11-25-2021 Magnesium [Mass/Vol] 1.8 mg/dL Low 1.9-2.7 [facility] Comment on above: Order Comment: No: D o not add to previous draw Performed By: #### 0 0071, 67770 #### [facility] [address] [place] [address], [facility] PORTABLE CHEST 1 VIEWon 11-12 PORTABLE CHEST 1 VIEW [facility] Department of Radiology [address] [place] [id number] Patient Name: ABDIRAHMAN GOMEZ : 1940 Sex: F Age: Race: White Pt. Location: [id number] Patient Status: I Ordered Date: 11/25/2021 10:05:00 [...] edema. Electronically signed: Melania Lay. Transcribed by: [email or web address], User Resident: Electronically Signed by: MELANIA LAY @ 11/25/2021 10:44 AM Normal [facility] Comment on above: Order Comment: Pneum othorax Cardiovascular Lab Reporton 11-24-2021 Cardiovascular Lab Report [facility]: [id number] Physician: Sarabjit Vicente MD Department of Service Date: 11/24/2021 Medicine Birthdate: 1940 Division of Room #: 3AB 213105 Cardiology Adult Cardiovascular Services [place] [address] Cardiovascular Laboratory Report PACEMAKER IMPLANT PROCEDURE NOTE DATE OF PROCEDURE: 11/24/2021 PERFORMING PHYSICIAN: Dr. Sarabjit Vicente CONSENT: Patient LOCATION: EP Lab PROCEDURE PERFORMED: 1. Implantation of pacemaker ([employer]). 2. 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 She had syncope from this and subsequently was transferred here. Since the admission to [facility], she had a fairly recently [...] using modified seldinger technique using a 5 Wolof micro-puncture needle on two occasions and 0.35 [...] pocket was created for the device. 6 Wolof Safesheaths were placed over the wire. An active fixation [employer] pacing lead was then delivered through the 6Fsheath to the right ventricle. After confirmation of lead position on orthogonal views ([place] and [place]) to confirm septal position, the screw was activated, and the lead was placed in the right ventricular mid cavity towards the septum. After confirmation of good sensing parameters, injury pattern and pacing thresholds, 10V pacing was done and no diaphragmatic stimulation was noted. It was then secured in the pocket using three 1-0 Silk sutures. Then an active fixation [employer] lead was delivered through the 6Fsheath to the right atrial appendage. After confirmation of lead position on orthogonal views ([place] and [place]), the screw was activated. After confirmation of [...] immediate procedural complications were noted. Device info: Be Spotted Accolade MRI Model# L311 Serial# [id number] RA lead: Model# INGEVITY 7840 (45cms) Serial# [id number] SensinmV Threshold: 0.8V@0.4ms Impedance: 590 Ohms RV lead: Model# INGEVITY 7841 (52cms) Serial# [id number] Sensin.5mV Threshold: 0.4V@0.4ms Impedance: 1125 Ohms POST PROCEDURE EXAM: Patient was hemodynamically stable. COMPLICATIONS: None. ESTIMATED BLOOD LOSS: 15cc IMPRESSION: 1. Successful dual chamber pacemaker with excellent pacing and sensing parameters. RECOMMENDATIONS: 1 Occlusive dressing to be removed after 2 weeks. 2. Do not wet the incision for 7 days. 3. No lifti (more content not included)... Normal [facility] APTTon 11-23-2021 aPTT Coag (Bld) [Time] 30.9 s Normal 25.0-35.0 [facility] Comment on above: Order Comment: No: [...] PURPOSE. Performed By: #### 3 2043 #### [facility] [address] [facility]. [address] BASIC METABOLIC PANELon 11-12 Calcium [Mass/Vol] 9.5 mg/dL Normal 8.6-10.3 [facility] Comment on above: Order Comment: No: D o not add to previous draw Performed By: #### 1 0070, 52785 #### [facility] [address] [facility] [place] [address], [facility] Chloride [Moles/Vol] 104 mmol/L Normal 98-107 [facility] Comment on above: Order Comment: No: D o not add to previous draw Performed By: #### 1 69, 00661 #### [facility] [address] [place] [address], [place] CO2 [Moles/Vol] 21 mmol/L Normal 21-31 [facility] Comment on above: Order Comment: No: D o not add to previous draw Performed By: #### 1 69, 70621 #### [facility] [address] [place] [address], [place] Creatinine [Mass/Vol] 0.80 mg/dL Normal 0.60-1.20 [facility] Comment on above: Order Comment: No: D o not add to previous draw Performed By: #### 1 69, 28434 #### [facility] [address] [place] [address], [place] GFR/1.73 sq M.predicted among blacks MDRD (S/P/Bld) [Vol rate/Area] mL/min/{1.73_m2} Normal >60 [facility] Comment on above: Order Comment: No: D o not add to previous draw Result Comment: Calc ulation may not be valid for patients over 70 years Performed By: #### 1 69, 80271 #### [facility] [address] [place] [address], [place] GFR/1.73 sq M.predicted among non-blacks MDRD (S/P/Bld) [Vol rate/Area] mL/min/{1.73_m2} Normal >60 [facility] Comment on above: Order Comment: No: D o not add to previous draw Result Comment: Calc ulation may not be valid for patients over 70 years Performed By: #### 1 0, 65487 #### [facility] [address] [place] [address], [place] Glucose [Mass/Vol] 109 mg/dL High 70-100 [facility] Comment on above: Order Comment: No: D o not add to previous draw Performed By: #### 1 69, 97875 #### [facility] [address] [place] [address], [facility] Potassium [Moles/Vol] 3.9 mmol/L Normal 3.5-5.1 [facility] Comment on above: Order Comment: No: D o not add to previous draw Performed By: #### 1 69, 90458 #### [facility] [address] [place] [address], [place] Sodium [Moles/Vol] 138 mmol/L Normal 136-145 [facility] Comment on above: Order Comment: No: D o not add to previous draw Performed By: #### 1 69, 84560 #### [facility] [address] [place] [address], [place] Urea nitrogen [Mass/Vol] 15 mg/dL Normal 7-25 [facility] Comment on above: Order Comment: No: D o not add to previous draw Performed By: #### 1 69, 04587 #### [facility] [address] [place] [address], [facility] CBC COMPLETE BLOOD COUNTon - Erythrocyte distribution width (RBC) [Ratio] 12.8 % Normal 11.5-15.0 [facility] Comment on above: Order Comment: No: D o not add to previous draw Performed By: #### 3 2043 #### [facility] [address] [place] [address], [facility] Hematocrit (Bld) [Volume fraction] 41.9 % Normal 36.0-45.0 [facility] Comment on above: Order Comment: No: D o not add to previous draw Performed By: #### 3 2043 #### [facility] [address] [place] [address], [facility] Hemoglobin (Bld) [Mass/Vol] 14.1 g/dL Normal 12.0-15.0 [facility] Comment on above: Order Comment: No: D o not add to previous draw Performed By: #### 3 2043 #### [facility] [address] [place] [address], [facility] MCH (RBC) [Entitic mass] 34.0 pg High 27.0-33.0 [facility] Comment on above: Order Comment: No: D o not add to previous draw Performed By: #### 3 2043 #### [facility] [address] [place] [address], [facility] MCHC (RBC) [Mass/Vol] 33.7 g/dL Normal 32.0-35.0 [facility] Comment on above: Order Comment: No: D o not add to previous draw Performed By: #### 3 2043 #### [facility] [address] [place] [address], [facility] MCV (RBC) [Entitic vol] 101.0 fL High 82.0-98.0 [facility] Comment on above: Order Comment: No: D o not add to previous draw Performed By: #### 3 2043 #### [facility] [address] [facility] [place] [address], [facility] Nucleated RBC/100 WBC (Bld) [Ratio] 0 % Normal 0-0 [facility] Comment on above: Order Comment: No: D o not add to previous draw Performed By: #### 3 2043 #### [facility] [address] [facility] [place] [address], [facility] PLAT CNT 218 10*3/uL Normal 150-400 [facility] Comment on above: Order Comment: No: D o not add to previous draw Performed By: #### 3 2043 #### [facility] [address] [facility] [place] [address], [facility] RBC (Bld) [#/Vol] 4.15 10*6/uL Normal 3.80-5.00 [facility] Comment on above: Order Comment: No: D o not add to previous draw Performed By: #### 3 2043 #### [facility] [address] [place] [address], [facility] WBC (Bld) [#/Vol] 9.49 10*3/uL Normal 4.00-10.60 [facility] Comment on above: Order Comment: No: D o not add to previous draw Performed By: #### 3 2043 #### [facility] [address] [place] [address], [facility] MAGNESIUM BLOODon 11-23-2021 Magnesium [Mass/Vol] 2.0 mg/dL Normal 1.9-2.7 [facility] Comment on above: Order Comment: No: D o not add to previous draw Performed By: #### 1 0070, 13778 #### [facility] [address] POC SARS COV2 ANTIGEN NEGATI VEon 11-23-2021 POC SARS COV2 ANTIGEN NEG Negative Normal NEGATIVE [facility] Comment on above: Result Comment: Nega [...] antigen from SARS-CoV-2 in direct nasopharyngeal swab (REFERRAL RN) specimens from individuals who are suspected of [...] Accreditation. Performed By: #### 3 2043 #### [facility] [address] [facility]. [address] PROTHROMBIN TIMEon INR Coag (PPP) [Relative time] 1.03 {INR} Normal 0.91-1.16 [facility] Comment on above: Order Comment: No: [...] 1995;[id number]. Performed By: #### 3 2043 #### [facility] [address] [facility]. [address] PT Coag (PPP) [Time] 13.5 s Normal 12.3-14.8 [facility] Comment on above: Order Comment: No: D o not add to previous draw Result Comment: ALL RESULTS MUST BE INTERPRETED WITH RESPECT TO BLOOD DRAWING ARTIFACT OR DILUTION ERROR OF ANTICOAGULANT AT THE TIME OF SAMPLING. Performed By: #### 3 2043 #### [facility] [address] BASIC METABOLIC PANELon 11-12 Calcium [Mass/Vol] 9.5 mg/dL Normal 8.6-10.3 [facility] Comment on above: Order Comment: No: D o not add to previous draw Performed By: #### 1 0070, 15407, 29648 #### [facility] [address] [place] [address], [place] Chloride [Moles/Vol] 104 mmol/L Normal 98-107 [facility] Comment on above: Order Comment: No: D o not add to previous draw Performed By: #### 1 0070, 42896, 55404 #### [facility] [address] [place] [address], [place] CO2 [Moles/Vol] 21 mmol/L Normal 21-31 [facility] Comment on above: Order Comment: No: D o not add to previous draw Performed By: #### 1 0070, 39943, 31393 #### [facility] [address] [place] [address], [place] Creatinine [Mass/Vol] 0.98 mg/dL Normal 0.60-1.20 [facility] Comment on above: Order Comment: No: D o not add to previous draw Performed By: #### 1 0070, 38402, 26201 #### [facility] [address] [place] [address], [place] eGFR- non- 54 ml/min/1.73sq m Abnormal >60 [facility] Comment on above: Order Comment: No: D o not add to previous draw Result Comment: Calc ulation may not be valid for patients over 70 years Performed By: #### 1 0070, 56726, 47524 #### [facility] [address] [place] [address], [place] GFR/1.73 sq M.predicted among blacks MDRD (S/P/Bld) [Vol rate/Area] mL/min/{1.73_m2} Normal >60 [facility] Comment on above: Order Comment: No: D o not add to previous draw Result Comment: Calc ulation may not be valid for patients over 70 years Performed By: #### 1 0, 39767, 06092 #### [facility] [address] [place] [address], [facility] Glucose [Mass/Vol] 110 mg/dL High 70-100 [facility] Comment on above: Order Comment: No: D o not add to previous draw Performed By: #### 1 0, 08277, 65813 #### [facility] [address] [place] [address], [facility] Potassium [Moles/Vol] 4.9 mmol/L Normal 3.5-5.1 [facility] Comment on above: Order Comment: No: D o not add to previous draw Performed By: #### 1 0, 15382, 43895 #### [facility] [address] [place] [address], [facility] Sodium [Moles/Vol] 137 mmol/L Normal 136-145 [facility] Comment on above: Order Comment: No: D o not add to previous draw Performed By: #### 1 0, 18831, 77349 #### [facility] [address] [facility] [address] Urea nitrogen [Mass/Vol] 18 mg/dL Normal 7-25 [facility] Comment on above: Order Comment: No: D o not add to previous draw Performed By: #### 1 0, 38385, 20039 #### [facility] [address] [facility] [place] [address], [facility] CBC W/DIFFon 11-22-2021 ABS IMM GRANS 0.1 10*3/uL Normal 0.0-0.2 [facility] Comment on above: Performed By: #### 3 2043 #### [facility] [address] [facility] [place] [address], [facility] ABS NEUTROPHILS 6.8 10*3/uL Normal 1.6-7.6 [facility] Comment on above: Performed By: #### 3 2043 #### [facility] [address] [place] [address], [facility] Basophils (Bld) [#/Vol] 0.1 10*3/uL Normal 0.0-0.2 [facility] Comment on above: Performed By: #### 3 2043 #### [facility] [address] [place] [address], [facility] Basophils/100 WBC (Bld) 0.8 % Normal 0.0-1.[address] [facility] Comment on above: Performed By: #### 3 2043 #### [facility] [address] [place] [address], [facility] Eosinophils (Bld) [#/Vol] 0.4 10*3/uL Normal 0.0-0.5 [facility] Comment on above: Performed By: #### 3 2043 #### [facility] [address] [place] [address], [facility] Eosinophils/100 WBC (Bld) 3.6 % Normal 0.0-6.0 [facility] Comment on above: Performed By: #### 3 2043 #### [facility] [address] [facility] [address] Erythrocyte distribution width (RBC) [Ratio] 12.6 % Normal 11.5-15.0 [facility] Comment on above: Performed By: #### 3 2043 #### [facility] [address] [facility] [place] [address], [facility] Hematocrit (Bld) [Volume fraction] 42.3 % Normal 36.0-45.0 [facility] Comment on above: Performed By: #### 3 2043 #### [facility] [address] [facility] [place] [address], [facility] Hemoglobin (Bld) [Mass/Vol] 14.9 g/dL Normal 12.0-15.0 [facility] Comment on above: Performed By: #### 3 2043 #### [facility] [address] [place] [address], [facility] IMMATURE GRANS 0.5 % Normal 0.0-1.0 [facility] Comment on above: Performed By: #### 3 2043 #### [facility] [address] [place] [address], [facility] Lymphocytes (Bld) [#/Vol] 2.3 10*3/uL Normal 1.2-4.0 [facility] Comment on above: Performed By: #### 3 2043 #### [facility] [address] [facility] [place] [address], [facility] Lymphocytes/100 WBC (Bld) 21.8 % Normal 20.0-45.0 [facility] Comment on above: Performed By: #### 3 2043 #### [facility] [address] [facility] [place] [address], [facility] MCH (RBC) [Entitic mass] 34.3 pg High 27.0-33.0 [facility] Comment on above: Performed By: #### 3 2043 #### [facility] [address] [facility] [place] [address], [facility] MCHC (RBC) [Mass/Vol] 35.2 g/dL High 32.0-35.0 [facility] Comment on above: Performed By: #### 3 2043 #### [facility] [address] [facility] [place] [address], [facility] MCV (RBC) [Entitic vol] 97.2 fL Normal 82.0-98.0 [facility] Comment on above: Performed By: #### 3 2043 #### [facility] [address] [facility] [place] [address], [facility] Monocytes (Bld) [#/Vol] 0.8 10*3/uL Normal 0.1-1.0 [facility] Comment on above: Performed By: #### 3 2043 #### [facility] [address] [place] [address], [facility] MONOS 7.8 % Normal 5.0-12.0 [facility] Comment on above: Performed By: #### 3 2043 #### [facility] [address] [place] [address], [facility] Neutrophils/100 WBC (Bld) 65.5 % Normal 40.0-72.0 [facility] Comment on above: Performed By: #### 3 2043 #### [facility] [address] [place] [address], [facility] Nucleated RBC/100 WBC (Bld) [Ratio] 0 % Normal 0-0 [facility] Comment on above: Performed By: #### 3 2043 #### [facility] [address] [place] [address], [facility] PLAT CNT 231 10*3/uL Normal 150-400 [facility] Comment on above: Performed By: #### 3 2043 #### [facility] [address] [facility] [place] [address], [facility] RBC (Bld) [#/Vol] 4.35 10*6/uL Normal 3.80-5.00 [facility] Comment on above: Performed By: #### 3 2043 #### [facility] [address] [facility] [place] [address], [facility] WBC (Bld) [#/Vol] 10.35 10*3/uL Normal 4.00-10.60 [facility] Comment on above: Performed By: #### 3 2043 #### [facility] [address] [facility] [place] [id number], [facility] MAGNESIUM BLOODon 11-22-2021 Magnesium [Mass/Vol] 2.1 mg/dL Normal 1.9-2.7 [facility] Comment on above: Order Comment: No: D o not add to previous draw Performed By: #### 1 0070, 15603, 79258 #### [facility] [address] [place] [address], [facility] TROPONIN-Ion 11-22-2021 Troponin I.cardiac [Mass/Vol] 0.00 ng/mL Normal 0.00-0.04 [facility] Comment on above: Order Comment: No: D o not add to previous draw Result Comment: REFE RENCE RANGES: 0.00 - 0.04 ng/ml NORMAL 0.05 - 0.50 ng/ml INDETERMINATE > 0.50 ng/ml CONSISTENT WITH AN M.I. Performed By: #### 1 0070, 32866, 81072 #### [facility] [address] [place], [place] [id number] [place] [address] Troponin I.cardiac [Mass/Vol] 0.01 ng/mL Normal 0.00-0.04 [facility] Comment on above: Order Comment: No: D o not add to previous draw Result Comment: REFE RENCE RANGES: 0.00 - 0.04 ng/ml NORMAL 0.05 - 0.50 ng/ml INDETERMINATE > 0.50 ng/ml CONSISTENT WITH AN M.I. Performed By: #### 3 5200 #### [facility] [address] ECHOCARDIO M/2D COMPLETEon 0 11-05-2021 ECHOCARDIO M/2D COMPLETE Patient: ABDIRAHMAN GOMEZ Exam Date: 11/05/2021 : 1940 Gender:F Ordering : VENUS TONG Admission #: [id number] Family : DR IRISH FAUSTIN . Order #: [id number] CLICK HERE TO VIEW EXAM ECHOCARDIOGRAM REPORT [...] Lopez M.D. on 11/06/2021 at 13:18 Normal [facility] MG MAMM SCREEN 3D MILANA CADon 10-27-2021 MG MAMM SCREEN 3D MILANA CAD Patient: ABDIRAHMAN GOMEZ Exam Date: 10/27/2021 : 1940 Gender:F Ordering : DR IRISH FAUSTIN . Admission #: [id number] Family : Order #: [id number] CLICK HERE TO VIEW EXAM RADIOLOGY REPORT [...] Treatments None Family Cancers None LOCATION: [facility] BREAST COMPOSITION: Almost entirely fatty. FINDINGS: DIAGNOSTIC [...] MD on 10/27/2021 at 11:44 Normal [facility] INSULINon 06-28-2021 Insulin 12.1 uIU/mL Normal 2.6-24.9 [facility] Comment on above: Performed By: #### I NSULIN #### [facility] [address] [place] [address] Dr. Logan Payne BNPon 06-27-2021 Natriuretic peptide B (Bld) [Mass/Vol] 350.0 pg/mL Normal <=1,800.0 [facility] Comment on above: Performed By: #### T SH, BNP, CMP, LIPID, T7 #### [facility] [address] [place] [address] Dr. Logan Payne CBC AUTO DIFFon 06-27-2021 BASO # 0.1 103/ul Normal 0.0-0.1 [facility] Comment on above: Performed By: #### T SH, BNP, CMP, LIPID, T7 #### [facility] [address] [place] [address] Dr. Logan Payne Basophils/100 WBC (Bld) 1.1 % Normal 0.2-2.0 [facility] Comment on above: Performed By: #### T SH, BNP, CMP, LIPID, T7 #### [facility] [address] [place] [address] Dr. Logan aPyne EO # 0.3 103/ul Normal 0.0-0.7 [facility] Comment on above: Performed By: #### T SH, BNP, CMP, LIPID, T7 #### [facility] [address] [place] [address] Dr. Logan Payne Eosinophils/100 WBC (Bld) 2.8 % Normal 0.9-7.0 [facility] Comment on above: Performed By: #### T SH, BNP, CMP, LIPID, T7 #### [facility] [address] [place] [address] Dr. Logan Payne Erythrocyte distribution width (RBC) [Ratio] 12.9 % Normal 11.0-15.0 [facility] Comment on above: Performed By: #### T SH, BNP, CMP, LIPID, T7 #### [facility] [address] [place] [address] Dr. Logan Payne Hematocrit (Bld) [Volume fraction] 46.6 % Normal 36.0-48.0 [facility] Comment on above: Performed By: #### T SH, BNP, CMP, LIPID, T7 #### [facility] [address] [place] [address] Dr. Logan Payne Hemoglobin (Bld) [Mass/Vol] 15.0 g/dL Normal 12.0-16.0 [facility] Comment on above: Performed By: #### T SH, BNP, CMP, LIPID, T7 #### [facility] [address] [place] [address] Dr. Logan Payne IG # 0.05 10e3/ul Critically high 0.00-0.03 [facility] Comment on above: Performed By: #### T SH, BNP, CMP, LIPID, T7 #### [facility] [address] [place] [address] Dr. Logan Payne IG % 0.5 % Normal 0.0-0.5 [facility] Comment on above: Performed By: #### T SH, BNP, CMP, LIPID, T7 #### [facility] [address] [place] [address] Dr. Logan Payne LYMPH # 2.8 103/ul Normal 1.2-3.8 [facility] Comment on above: Performed By: #### T SH, BNP, CMP, LIPID, T7 #### [facility] [address] [place] [address] Dr. Logan Payne Lymphocytes/100 WBC (Bld) 27.4 % Normal 20.5-60.0 [facility] Comment on above: Performed By: #### T SH, BNP, CMP, LIPID, T7 #### [facility] [address] [place] [address] Dr. Logan Payne MANUAL DIFF REQ NO Normal [facility] Comment on above: Performed By: #### T SH, BNP, CMP, LIPID, T7 #### [facility] [address] [place] [address] Dr. Logan Payne MCH (RBC) [Entitic mass] 33.9 pg Normal 26.7-34.0 [facility] Comment on above: Performed By: #### T SH, BNP, CMP, LIPID, T7 #### [facility] [address] [place] [address] Dr. Logan Payne MCHC (RBC) [Mass/Vol] 32.2 g/dL Normal 29.9-35.2 [facility] Comment on above: Performed By: #### T SH, BNP, CMP, LIPID, T7 #### [facility] [address] [place] [address] Dr. Logan Payne MCV (RBC) [Entitic vol] 105.2 fL Critically high 81.0-99 .0 [facility] Comment on above: Performed By: #### T SH, BNP, CMP, LIPID, T7 #### [facility] [address] [place] [address] Dr. Logan Payne MONO # 0.7 103/ul Normal 0.3-0.8 [facility] Comment on above: Performed By: #### T SH, BNP, CMP, LIPID, T7 #### [facility] [address] [place] [address] Dr. Logan Payne Monocytes/100 WBC (Bld) 7.2 % Normal 1.7-12.0 [facility] Comment on above: Performed By: #### T SH, BNP, CMP, LIPID, T7 #### [facility] [address] [place] [address] Dr. Logan Payne NEUT # 6.3 103/ul Normal 1.4-6.5 [facility] Comment on above: Performed By: #### T SH, BNP, CMP, LIPID, T7 #### [facility] [address] [place] [address] Dr. Logan Payne Neutrophils/100 WBC (Bld) 61.0 % Normal 43.0-75.0 [facility] Comment on above: Performed By: #### T SH, BNP, CMP, LIPID, T7 #### [facility] [address] [place] [address] Dr. Logan Payne Platelet mean volume (Bld) [Entitic vol] 9.3 fL Critically low 9.5-13.5 [facility] Comment on above: Performed By: #### T SH, BNP, CMP, LIPID, T7 #### [facility] [address] [place] [address] Dr. Logan Payne PLT 245 103/ul Normal 150-450 [facility] Comment on above: Performed By: #### T SH, BNP, CMP, LIPID, T7 #### [facility] [address] [place] [address] Dr. Logan Payne RBC 4.43 106/ul Normal 4.20-5.40 [facility] Comment on above: Result Comment: Macr ocytosis 1+ Performed By: #### T SH, BNP, CMP, LIPID, T7 #### [facility] [address] [place] [address] Dr. Logan Payne WBC 10.3 103/ul Normal 4.0-11.0 [facility] Comment on above: Performed By: #### T SH, BNP, CMP, LIPID, T7 #### [facility] [address] [place] [address] Dr. Logan Payne FREE THYROXINE INDEX T7on FTI 3.01 Normal [facility] Comment on above: Performed By: #### T SH, BNP, CMP, LIPID, T7 #### [facility] [address] [place] [address] [address] Logan Payne T3U 31.0 % Normal 23.5-40.5 [facility] Comment on above: Performed By: #### T SH, BNP, CMP, LIPID, T7 #### [facility] [address] [place] [address] [address] Logan Payne T4 [Mass/Vol] 9.70 ug/dL Normal 5.53-11.00 [facility] Comment on above: Performed By: #### T SH, BNP, CMP, LIPID, T7 #### [facility] [address] [place] [address] [address] Logan Payne GLYCOHEMOGLOBIN A1Con 2021 ADA RECOMMENDATION ADA THERAPEUTIC TARGET 6.0 - 7.0 ACTION SUGGESTED > 7.0 [facility] Comment on above: Performed By: #### A 1C #### [facility] [address] [place] [address] [address] Logan Payne Glucose [Mass/Vol] 126 mg/dL Normal [facility] Comment on above: Performed By: #### A 1C #### [facility] [address] [place] [address] [address] Logan Payne HbA1c (Bld) [Mass fraction] 6.0 % Normal <=6.0 [facility] Comment on above: Performed By: #### A 1C #### [facility] [address] [place] [address] [address] Logan Payne IRONon 06-27-2021 Iron [Mass/Vol] 90.0 ug/dL Normal 37.0-170.0 [facility] Comment on above: Performed By: #### I GRANT #### [facility] [address] [place] [address] [address] Logan Panye LIPID PROFILEon 06-27-2021 CHOL-HDL RATIO NORM SEE BELOW Normal [facility] Comment on above: Result Comment: 3.3 - 4.4 LOW RISK 4.4 - 7.1 AVERAGE RISK 7.1 - 11.0 MODERATE RISK >11.0 HIGH RISK Performed By: #### T SH, BNP, CMP, LIPID, T7 #### [facility] [address] [place] [address] [address] Logan Payne Cholesterol [Mass/Vol] 209 mg/dL Critically high <=200 [facility] Comment on above: Performed By: #### T SH, BNP, CMP, LIPID, T7 #### [facility] [address] [place] [address] [address] Logan Payne Cholesterol in HDL [Mass/Vol] 62 mg/dL Normal [facility] Comment on above: Performed By: #### T SH, BNP, CMP, LIPID, T7 #### [facility] [address] [place] [address] Dr. Logan Payne Cholesterol in LDL [Mass/Vol] 104.2 mg/dL Normal [facility] Comment on above: Performed By: #### T SH, BNP, CMP, LIPID, T7 #### [facility] [address] [place] [address] [address] Logan aPyne Cholesterol.total/Gabriela sterol in HDL [Mass ratio] 3.4 {ratio} Normal [facility] Comment on above: Performed By: #### T SH, BNP, CMP, LIPID, T7 #### [facility] [address] [place] [address] Dr. Logan Payne HDL NORMAL > or = 60 mg/dl - LO W CARDIOVASCULAR RISK <40 mg/dl - HIGH CARDIOVASCULAR RISK Normal [facility] Comment on above: Performed By: #### T SH, BNP, CMP, LIPID, T7 #### [facility] [address] [place] [address] [address] Logan Payne LDL CALC NORMAL SEE BELOW Normal [facility] Comment on above: Result Comment: <100 mg/dl OPTIMAL 100 - 129 mg/dl NEAR OR ABOVE OPTIMAL 130 - 159 mg/dl BORDERLINE HIGH 160 - 189 mg/dl HIGH >190 mg/dl VERY HIGH Performed By: #### T SH, BNP, CMP, LIPID, T7 #### [facility] [address] [place] [address] [address] Logan Payne Triglyceride [Mass/Vol] 214 mg/dL Critically high <=150 [facility] Comment on above: Performed By: #### T SH, BNP, CMP, LIPID, T7 #### [facility] [address] [place] [address] [address] Logan Payne VLDL CALC 42.8 mg/dL Normal [facility] Comment on above: Performed By: #### T SH, BNP, CMP, LIPID, T7 #### [facility] [address] [place] [address] [address] Logan Payne PROF 14(COMP METB)on 022 Albumin [Mass/Vol] 4.3 g/dL Normal 3.5-5.0 [facility] Comment on above: Performed By: #### T SH, BNP, CMP, LIPID, T7 #### [facility] [address] [place] [address] [address] Logan Payne Albumin/Globulin [Mass ratio] 1.0 {ratio} Normal [facility] Comment on above: Performed By: #### T SH, BNP, CMP, LIPID, T7 #### [facility] [address] [place] [address] [address] Logan Payne ALP [Catalytic activity/Vol] 108 U/L Normal 38-126 [facility] Comment on above: Performed By: #### T SH, BNP, CMP, LIPID, T7 #### [facility] [address] [place] [address] [address] Logan Payne ALT [Catalytic activity/Vol] 59 U/L Critically high 9-52 [facility] Comment on above: Performed By: #### T SH, BNP, CMP, LIPID, T7 #### [facility] [address] [address] [address] Logan Payne Anion gap [Moles/Vol] 16.0 mmol/L Normal [facility] Comment on above: Performed By: #### T SH, BNP, CMP, LIPID, T7 #### [facility] [address] [address] [address] Logan Payne AST [Catalytic activity/Vol] 52 U/L Critically high 14-36 [facility] Comment on above: Performed By: #### T SH, BNP, CMP, LIPID, T7 #### [facility] [address] [address] [address] Logan Payne Bilirubin [Mass/Vol] 0.3 mg/dL Normal 0.2-1.3 [facility] Comment on above: Performed By: #### T SH, BNP, CMP, LIPID, T7 #### [facility] [address] [address] [address] Logan Payne Calcium [Mass/Vol] 9.9 mg/dL Normal 8.4-10.2 [facility] Comment on above: Performed By: #### T SH, BNP, CMP, LIPID, T7 #### [facility] [address] [place] [address] Dr. Logan Payne Chloride [Moles/Vol] 105 mmol/L Normal 98-107 [facility] Comment on above: Performed By: #### T SH, BNP, CMP, LIPID, T7 #### [facility] [address] [place] [address] Dr. Logan Payne CO2 [Moles/Vol] 21.6 mmol/L Critically low 22.0-30.0 [facility] Comment on above: Performed By: #### T SH, BNP, CMP, LIPID, T7 #### [facility] [address] [place] [address] Dr. Logan Payne Creatinine [Mass/Vol] 1.01 mg/dL Normal 0.52-1.04 [facility] Comment on above: Performed By: #### T SH, BNP, CMP, LIPID, T7 #### [facility] [address] [place] [address] Dr. Logan Payne EGFR-AF FILIPINO >60 Normal >=60 [facility] Comment on above: Performed By: #### T SH, BNP, CMP, LIPID, T7 #### [facility] [address] [place] [address] Dr. Logan Payne EGFR-NON AF FILIPINO 53 mL/min/1.73m2 Critically low >=60 [facility] Comment on above: Performed By: #### T SH, BNP, CMP, LIPID, T7 #### [facility] [address] [address] [address] Logan Payne Globulin (S) [Mass/Vol] 4.1 g/dL Normal [facility] Comment on above: Performed By: #### T SH, BNP, CMP, LIPID, T7 #### [facility] [address] [address] [address] Logan Payne Glucose [Mass/Vol] 117 mg/dL Critically high 74-106 [facility] Comment on above: Performed By: #### T SH, BNP, CMP, LIPID, T7 #### [facility] [address] [place] [address] Dr. Logan Payne Potassium [Moles/Vol] 4.6 mmol/L Normal 3.4-5.0 [facility] Comment on above: Performed By: #### T SH, BNP, CMP, LIPID, T7 #### [facility] [address] [address] [address] Logan Payne Protein [Mass/Vol] 8.4 g/dL Critically high 6.1-8.2 [facility] Comment on above: Performed By: #### T SH, BNP, CMP, LIPID, T7 #### [facility] [address] [place] [address] Dr. Logan Payne Sodium [Moles/Vol] 138 mmol/L Normal 137-145 [facility] Comment on above: Performed By: #### T SH, BNP, CMP, LIPID, T7 #### [facility] [address] [place] [address] Dr. Logan Payne Urea nitrogen [Mass/Vol] 18.0 mg/dL Critically high 7.0-17.0 [facility] Comment on above: Performed By: #### T SH, BNP, CMP, LIPID, T7 #### [facility] [address] [place] [address] Dr. Logan Payne Urea nitrogen/Creatinine [Mass ratio] 17.8 mg/mg Normal [facility] Comment on above: Performed By: #### T SH, BNP, CMP, LIPID, T7 #### [facility] [address] [place], [place] [address] Dr. Logan Payne TSHon 06-27-2021 TSH 1.510 uIU/mL Normal 0.470-4.680 [facility] Comment on above: Performed By: #### T SH, BNP, CMP, LIPID, T7 #### [facility] [address] [place], [place] [address] Dr. Logan Payne TSH RANGE SEE BELOW Normal [facility] Comment on above: Result Comment: <0.3 4 UIU/ml HYPERTHYROID 0.34-5.60 UIU/ml EUTHYROID >5.60 UIU/ml HYPOTHYROID Performed By: #### T SH, BNP, CMP, LIPID, T7 #### [facility] [address] [address] [address] Logan Payne Vital Signs Date Time Vital Sign Value Performing Clinician Faci lity 06-25-2022 11:18-0500 Body temperature 97.8 [degF] MD Irish Faustin Work Phone: [facility] 06-25-2022 11:18-0500 Diastolic blood pressure 70 mm[Hg] MD Irish Faustin Work Phone: [facility] 06-25-2022 11:18-0500 Heart rate 69 /min MD Irish Faustin Work Phone: [facility] 06-25-2022 11:18-0500 SaO2% (BldA) [Mass fraction] 94 % MD Irish Faustin Work Phone: [facility] 06-25-2022 11:18-0500 Systolic blood pressure 140 mm[Hg] MD Irish Faustin Work Phone: [facility] 06-25-2022 04:17-0500 Respiratory rate 18 /min MD Irish Faustin Work Phone: [facility] 06-24-2022 07:18-0500 Body height 157.48 cm MD Irish Faustin Work Phone: [facility] 06-22-2022 11:19-0500 Body weight 67.2 kg MD Irish Faustin Work Phone: [facility] 06-16-2022 16:00-0500 Body temperature 97.6 [degF] MD Irish Faustin Work Phone: [facility] 06-16-2022 16:00-0500 Diastolic blood pressure 75 mm[Hg] MD Irish Faustin Work Phone: [facility] 06-16-2022 16:00-0500 Heart rate 72 /min MD Irish Faustin Work Phone: [facility] 06-16-2022 16:00-0500 Respiratory rate 16 /min MD Irish Faustin Work Phone: [facility] 06-16-2022 16:00-0500 SaO2% (BldA) [Mass fraction] 96 % MD Irish Faustin Work Phone: [facility] 06-16-2022 16:00-0500 Systolic blood pressure 127 mm[Hg] MD Irish Faustin Work Phone: [facility] 06-16-2022 06:00-0500 Body weight 68.8 kg MD Irish Faustin Work Phone: [facility] 06-11-2022 15:23-0500 Body height 157.48 cm MD Irish Faustin Work Phone: [facility] 06-09-2022 12:00-0500 Inhaled oxygen flow rate 2 L/min MD Irish Faustin Work Phone: [facility] Encounters Encounter Date Encounter Type Care Provider Facility Start: 06-27-2024 End: 06-27-2024 ambulatory [facility] Start: 04-17-2024 End: 04-17-20[facility] Start: 12-28-2023 End: 12-28-2023 ambulatory [facility] Start: 06-16-2022 End: 06-25-2022 Evaluation and management of inpatient Stiven Zaman Facility:[facility] Start: 06-16-2022 End: 06-25-2022 Evaluation and management of inpatient MD Irish Faustin Work Phone: [facility] Work Phone: Start: 06-13-[address] Yova Prado Facility:[id number] Start: 06-11-[address] Irish Faustin Facility:[facility] Start: 06-09-[address] Irish Faustin Facility:[id number] Start: 06-09-2022 End: 06-16-2022 Evaluation and management of inpatient Chema Annia Facility:[facility] Start: 06-09-2022 End: 06-16-2022 Evaluation and management of inpatient MD Irish Faustin Work Phone: [facility] Work Phone: Start: 06-08-2022 End: 06-09-[address] IRISH FAUSTIN Facility:[facility] Start: 01-12-2022 ambulatory VENUS TONG Facility :[facility] Start: 11-27-2021 ambulatory VENUS TONG Facility :[facility] Start: 11-22-2021 End: 11-25-2021 Evaluation and management of inpatient PHYSICIAN UNKNOWN Facility:[facility] Start: 11-05-2021 End: 11-06-2021 ambulatory [...] Date Care Activity Detail Author Start: 06-25-2022 [facility] Start: 06-16-2022 [facility] Start: 06-16-2022 Hospital admission [facility] Start: 06-16-2022 Referral to clinical livestock feeder [facility] Start: 06-16-2022 [facility] Start: 06-12-2022 Doppler ultrasonogra phy of bilateral carotid arteries US carotid doppler BI [facility] Start: 06-12-2022 US.doppler Carotid a rteries - bilateral [facility] Start: 06-09-2022 Hospital admission [facility] Patient Education Stroke (DC) [facility] Work Phone: Patient referral [facility] Work Phone: [facility] Payers Date Payer Category Payer Self-pay 1981 Medicare [id number] 1959 Medicare [id number] 1959 Private Health Insurance [id number] 1959 Self-pay [id number] 1940 Unknown [id number] 2.16.8 [id number] 1940 Unknown [id number] 2.16.84 [id number] 1940 Unknown [id number] 2.16.84 [id number] 1940 Unknown [id number] 2.16.84 [id number] 1940 Unknown [id number] 2.16.84 [id number] 1940 Unknown [id number] 2.16.84 [id number] 1940 Unknown [id number] 2.16.84 [id number] 1940 Unknown [id number] 2.16. [id number] 1940 Unknown [id number] 2.16. [id number] Unknown [id number] 2.16.8 [id number] Unknown [id number] 2.16.8 [id number] Social History Date Type Detail Facility Start: 06-09-2022 End: 06-17-2022 Tobacco smoking status NHIS Never smoked tobacco (finding) [facility] Start: 1940 Sex Assigned At Female F [facility] Goals Date Patient Goal Desired Activity /State Functional Status Date Assessment Result Facility 06-25-2022 Functional status Patient at Baseline [facility] Work Phone: 06-16-2022 Functional status Patient is Pro gressing Toward Baseline [facility] Work Phone: Mental Status Date Assessment Result Facility 06-25-2022 Cognitive function Cognitive Sta tus Patient at Baseline [facility] Work Phone: 06-16-2022 Cognitive function Cognitive Sta tus Patient is Progressing Toward Baseline [facility] Work Phone: Clinical Notes 11-26-2021 to 04-17-2024 Note Date & Type Note Facility 04-17-2024 Note [facility] Cardiology Clinic Note Chief Complaint: Patient here for 1 year follow up CAD, PAF, carotid artery stenosis, and valve disorder. Had echo in May 2023. She denies worsening [place], palpitations, and bleeding on Eliquis. Does get intermittent pain she says from under her arms to her back and chest. She does get steroid injections from Dr. Faustin for back pain. HPI: Blainraina Gomez is a 83 y.o. female past [...] in the morning., Disp: , Rfl: HYDROcodone-acetaminophen (Val[place]) 5-325 mg tablet, Take 5-325 tablets by [...] 10 mg tablet, Disp: , Rfl: omega 8-bhn-tex-fish oil (Fish OiL) 1,000 mg (120 mg-180 [...] no carotid brui (more content not included)... [facility] 06-24-2022 Discharge summary Note Date/Time June 24, 2022 12:11pm [facility] [address] [place] [address] Discharge Summary Signed Patient: Abdirahman Gomez MR#: [id number] : 1940 Acct:[id number] Age/Sex: 81 / F Adm Date: 3 Loc: Room: [address] [place] [address]: Stiven Zaman MD Copies to: [...] lobe. She presented to outside facility around [place] with several days of generalized weakness. Her troponins were elevated. She was transferred to [facility]. Cardiology was consulted, did not feel [...] blood in the stool on admission to [place], consistent with lower GI bleed. She was [...] ADLs. She will be discharged home with [facility] home health services tomorrow. She [...] Plan Discharge Plan Patient Disposition: Home Health [facility] Activity: Ambulate as Tolerated Diet: Low-Sodium and Low-Cholesterol Comment: Heart Healthy 3-4gm Sodium Additional Instructions: -Code Status: Full Code -Activity: Ambulate as tolerated -Diet: Heart Healthy 3-4gm Sodium, low cholesterol -Follow feeding strategies: Sit upright 90 degrees, pacing/slow rate, alternate liquids/solids. Your Home Health agency is [facility] ( ). They will contact you within [...] <Electronically signed by KIM Crowell> 06/25/22 1308 [facility] Work Phone: 1(433) 897-148701-11-2023 Hospital Discharge instructionsAmbulatory Orders* Initiate Home Health Time Frame: 06/24/22, Location: Determined By Patient Additional Instructions -Code Status: Full Code -Activity: Ambulate as tolerated -Diet: Heart Healthy 3-4gm Sodium, low cholesterol -Follow feeding strategies: Sit upright 90 degrees, pacing/slow rate, alternate liquids/solids. Your Home Health agency is [facility] ( ). They will contact you within [...] office to inform them prior to your appointment.[facility] Work Phone: 1(567) 238-721001-10-2023 Progress note Author Stiven Zaman [facility] June 23, 2022 9:35pm Note Date/Time June 22, 2022 11 :35am [facility] [address] [place] [address] Physiatry(Rehab) Progress Note Signed Patient: Abdirahman Gomez MR#: [id number] : 1940 Acct:[id number] Age/Sex: 81 / F Adm Date: 3 Loc: 5T Room: 4F5747-7 Type: ADM IN Attending Dr: Stiven Zaman [...] lobe. She presented to outside facility around [place] with several days of generalized weakness. Her troponins were elevated. She was transferred to [facility]. Cardiology was consulted, did not feel [...] blood in the stool on admission to [place], consistent with lower GI bleed. She was [...] mg 06/16/22 18:36 Bisacodyl 10 Mg Supp.Rect FL 06/16/23 18:35 DAILY PRN Constipation Carvedilol 12.5 mg 06/16/22 21:00 06/22/22 09:13 Carvedilol 12.5 Mg Tablet PO 06/16/23 20:59 12.5 mg BID JAK Administration Docusate Sodium 100 mg 06/16/22 18:36 Docusate 100 Mg Capsule PO 06/16/23 18:35 BID PRN Constipation Docusate Sodium 283 mg 06/16/22 18:36 Docusate Enema 283 Mg/5 Ml Enema FL 06/16/23 18:35 DAILY PRN Constipation Furosemide 20 [...] mcg DAILY JAK Administration Assessment/Plan <Lori Crowell, CERTIFIED SHORTHAND REPORTER - Last Filed: 06/22/22 11:45> Assessment/Plan (1) [...] tizanidine with h/o afib. Chronic pain received [place] 5/[address] Faustin. Will change from q4h to twice daily as at home. OARRS reviewed. Bowel and bladder: Continent. Skin: No pressure ulcers Sleep: Optimize sleep / wake. DVT prophylaxis: Covered with Eliquis. Functional status: Ambulatory. Needs assist. Left hemiplegia. Impaired endurance. Discharge planning: Home 7-10 days. I spent greater than 15 minutes for services, including gzri-ag-gppy encounter with the patient, discussion of the case, plan of care, and exam; and klygvpq-db-kblz activities, such as reviewing pertinent technology methodology consultant documentation, recent therapy notes, laboratory and radiology studies, and discussion of case with care team including physician, nursing, employment evaluator/case manager, and therapists. More than 50 % [...] tizanidine with h/o afib. Chronic pain received [place] 5/[address] Faustin. Will change from q4h to twice daily as at home. OARRS reviewed. Bowel and bladder: Continent. Skin: No pressure ulcers Sleep: Optimize sleep / wake. DVT prophylaxis: Covered with Eliquis. Functional status: Ambulatory. Needs assist. Left hemiplegia. Impaired endurance. Discharge planning: Home end of week I spent greater than 15 minutes for services, including qonn-aj-zhkw encounter with the patient, discussion of the case, plan of care, and exam; and yphelrh-zm-bgsm activities, such as reviewing pertinent technology methodology consultant documentation, recent therapy notes, laboratory and radiology studies, and discussion of case with care team including physician, nursing, employment evaluator/case manager, and therapists. More than 50 % of time was spent on patient/family counseling or coordination ofcare. Decision Plan: I completed a substantive portion of this encounter, the medical decision makingportion of this note in its entirety, including Allied health note review, nursing note review, technology methodology consultant note review, discussion with nursing and case management, and more than 50% of my time was spent on counseling and coordination of care, time spent 25 minutes Patient was personally seen by me, Dr. Zaman, on the day of encounter, reviewed the history and the relevant portions of the chart, including current orders, allied health and technology methodology consultant notes, labs/imaging and performed smith elements of exam and I formulated the plan of care and facilitated the medical decision making. Documented By: Stiven Zaman MD 06/22/22 9670 Signed By: <Electronically signed by Stiven Zaman MD> [id number] <Electronically signed by KIM Crowell> 06/22/22 114[address] [facility] Work Phone: 1(572) 534-489401-10-2023 Progress note Author Stiven Zaman [facility] June 23, 2022 9:25pm Note Date/Time June 23, 2022 1 2:28pm [facility] [address] [place] [address] Physiatry(Rehab) Progress Note Signed Patient: Abdirahman Gomez MR#: [id number] : 1940 Acct:[id number] Age/Sex: 81 / F Adm Date: 3 Loc: Room: [address] [place] [address] Type: ADM IN Attending Dr: Stiven Zaman [...] lobe. She presented to outside facility around [place] with several days of generalized weakness. Her troponins were elevated. She was transferred to [facility]. Cardiology was consulted, did not feel [...] blood in the stool on admission to [facility], consistent with lower GI bleed. She was [...] % (Auto) 55.7 Lymph % (Auto) 31.9 [place] % (Auto) 8.4 Eos % (Auto) 3.2 Baso % (Auto) 0.8 Nucleat RBC Rel Count 0.1 Neut # (Auto) 4.5 Lymph # (Auto) 2.6 [place] # (Auto) 0.7 Eos # (Auto) 0.3 [...] mg 06/16/22 18:36 Bisacodyl 10 Mg Supp.Rect FL 06/16/23 18:35 DAILY PRN Constipation Carvedilol 12.5 mg 06/16/22 21:00 06/23/22 10:00 Carvedilol 12.5 Mg Tablet PO 06/16/23 20:59 12.5 mg BID JAK Administration Docusate Sodium 100 mg 06/16/22 18:36 Docusate 100 Mg Capsule PO 06/16/23 18:35 BID PRN Constipation Docusate Sodium 283 mg 06/16/22 18:36 Docusate Enema 283 Mg/5 Ml Enema FL 06/16/23 18:35 DAILY PRN Constipation Furosemide 20 [...] tizanidine with h/o afib. Chronic pain received [place] 5/[address] Faustin. Will change from q4h totwice daily as at home. OARRS reviewed. Bowel and bladder: Continent. Skin: No pressure ulcers Sleep: Optimize sleep / wake. DVT prophylaxis: Covered with Eliquis. Functional status: Ambulatory. Needs assist. Left hemiplegia. Impaired endurance. Discharge planning: Home Wednesday or . I spent greater than 15 minutes for services, including dirw-nl-snpb encounter with the patient, discussion of the case, plan of care, and exam; and nxkneub-db-dnlk activities, such as reviewing pertinent technology methodology consultant documentation, recent therapy notes, laboratory and radiology studies, and discussion of case with care team including physician, nursing, employment evaluator/case manager, and therapists. More than 50 % [...] tizanidine with h/o afib. Chronic pain received [place] 5/[address] Faustin. Will change from q4h to twice daily as at home. OARRS reviewed. Bowel and bladder: Continent. Skin: No pressure ulcers Sleep: Optimize sleep / wake. DVT prophylaxis: Covered with Eliquis. Functional status: Ambulatory. Needs assist. Left hemiplegia resolved. Impairedendurance. Discharge planning: Home Wednesday or , pending FI. I spent greater than 15 minutes for services, including fduw-js-svat encounter with the patient, discussion of the case, plan of care, and exam; and wbtwrxp-lg-sunm activities, such as reviewing pertinent technology methodology consultant documentation, recent therapy notes, laboratory and radiology studies, and discussion of case with care team including physician, nursing, employment evaluator/case manager, and therapists. More than 50 % of time was spent on patient/family counseling or coordination ofcare. Decision Plan: I completed a substantive portion of this encounter, the medical decision makingportion of this note in its entirety, including Allied health note review, nursing note review, technology methodology consultant note review, discussion with nursing and case management, and more than 50% of my time was spent on counseling and coordination of care, time spent 25 minutes Patient was personally seen by me, Dr. Zaman, on the day of encounter, reviewed the history and the relevant portions of the chart, including current orders, allied health and technology methodology consultant notes, labs/imaging and performed smith elements of exam and I formulated the plan of care and facilitated the medical decision making. Documented By: Stiven Zaman MD 06/23/221220 Signed By: <Electronically signed by Stiven Zaman MD> 06/23/222124 <Electronically signed by KIM Crowell> 06/23/228 [facility] Work Phone: 1([phone]) [phone] Progress note Author Stiven Zaman [facility] June 19, 2022 3:19pm Note Date/Time June 19, 2022 3: 19pm [facility] [address] [place] [address] Physiatry(Rehab) Progress Note Signed Patient: Abdirahman Gomez MR#: [id number] : 1940 Acct:[id number] Age/Sex: 81 / F Adm Date: 3 Loc: Room: 2V7590-9 Type: ADM IN Attending Dr: Stiven Zaman [...] lobe. She presented to outside facility around [place] with several days of generalized weakness. Her troponins were elevated. She was transferred to [facility]. Cardiology was consulted, did not feel [...] blood in the stool on admission to [place], consistent with lower GI bleed. She was [...] 05:00 06/19/22 08:30 Narrative: General: cooperative, comfortable HENWI Head: normal to inspection Eyes General: appearance [...] mg 06/16/22 18:36 Bisacodyl 10 Mg Supp.Rect FL 06/16/23 18:35 DAILY PRN Constipation Carvedilol 12.5 mg 06/16/22 21:00 06/19/22 08:26 Carvedilol 12.5 Mg Tablet PO 06/16/23 20:59 12.5 mg BID JAK Administration Docusate Sodium 100 mg 06/16/22 18:36 Docusate 100 Mg Capsule PO 06/16/23 18:35 BID PRN Constipation Docusate Sodium 283 mg 06/16/22 18:36 Docusate Enema 283 Mg/5 Ml Enema FL 06/16/23 18:35 DAILY PRN Constipation Furosemide 20 [...] tizanidine with h/o afib. Chronic pain received [place] 5/[address] Faustin. Will change [...] Allied health note review, nursing note review, technology methodology consultant note review, discussion with nursing and case management, and more than 50% of my time was spent on counseling and coordination of care, time spent 35 minutes Patient was personally seen by me, Dr. Zaman, on the day of encounter, reviewed the history and the relevant portions of the chart, including current orders, allied health and technology methodology consultant notes, labs/imaging and performed smith elements of exam and I formulated the plan of care and facilitated the medical decision making. Documented By: Stiven Zaman MD 06/19/22 151 Signed By: <Electronically signed by Stiven Zaman MD> 06/19/22 1519 [facility] Work Phone: 1(616) 176-732801-05-2023 Progress note Author Stiven Zaman [facility] June 18, 2022 12:49pm Note Date/Time June 18, 2022 12 :49pm [facility] [address] [place] [address] Physiatry(Rehab) Progress Note Signed Patient: Abdirahman Gomez MR#: [id number] : 1940 Acct:[id number] Age/Sex: 81 / F Adm Date: 3 Loc: Room: 6Y7009-2 Type: ADM IN Attending Dr: Stiven Zaman [...] lobe. She presented to outside facility around [place] with several days of generalized weakness. Her troponins were elevated. She was transferred to [facility]. Cardiology was consulted, did not feel [...] blood in the stool on admission to [place], consistent with lower GI bleed. She was [...] 05:00 06/18/22 05:00 Narrative: General: cooperative, comfortable HENWI Head: normal to inspection Eyes General: appearance [...] mg 06/16/22 18:36 Bisacodyl 10 Mg Supp.Rect FL 06/16/23 18:35 DAILY PRN Constipation Carvedilol 12.5 mg 06/16/22 21:00 06/18/22 07:49 Carvedilol 12.5 Mg Tablet PO 06/16/23 20:59 12.5 mg BID JAK Administration Docusate Sodium 100 mg 06/16/22 18:36 Docusate 100 Mg Capsule PO 06/16/23 18:35 BID PRN Constipation Docusate Sodium 283 mg 06/16/22 18:36 Docusate Enema 283 Mg/5 Ml Enema FL 06/16/23 18:35 DAILY PRN Constipation Furosemide 20 [...] tizanidine with h/o afib. Chronic pain received [place] 5/[address] Faustin. Will change [...] Allied health note review, nursing note review, technology methodology consultant note review, discussion with nursing and case management, and more than 50% of my time was spent on counseling and coordination of care, time spent 30 minutes Patient was personally seen by me, Dr. Zaman, on the day of encounter, reviewed the history and the relevant portions of the chart, including current orders, allied health and technology methodology consultant notes, labs/imaging and performed smith elements of exam and I formulated the plan of care and facilitated the medical decision making. Documented By: Stiven Zaman MD 06/18/22 124 Signed By: <Electronically signed by Stiven Zaman MD> 06/18/22 1249 [facility] Work Phone: 1([phone]) 147-675201-04-2023 History and physical note Author Stiven Zaman [facility] June 17, 2022 3:54pm Note Date/Time June 17, 2022 9: 40am [facility] [address] [place] [address] Physiatry (Rehab) H&P Signed Patient: Abdirahman Gomez MR#: [id number] : 1940 Acct:[id number] Age/Sex: 81 / F Adm Date: 3 Loc: 5T Room: 6O7683-3 Type: ADM IN Attending Dr: Stiven Zaman MD Copies to: MD Stiven Mccullough MD~ Date of Service: 06/17/2022 [facility] The patient was seen and examined on: 06/17/22 History of Present Illness: Ms. Gomez is a 81 year old female with history of CAD status post CABG, remote, atrial fibrillation, pacemaker placed, admitted to the rehabilitation unit with functional decline secondary to bilateral hemisphere cardioembolic stroke, right parietal lobe, left occipital lobe. She presented to outside facility around [place] with several days of generalized weakness. Her troponins were elevated. She was transferred to [facility]. Cardiology was consulted, did not feel [...] blood in the stool on admission to [place], consistent with lower GI bleed. She was cleared to remain on Eliquis. Etiologylikely mild diverticular bleed. On evaluation today she feels generally well. 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 She does not appreciate any significant weakness at this point. [facility] Vaccinated for COVID-19?: Yes Medical History A-fib [...] Bisacodyl (Bisacodyl 10 Mg Supp.Rect) 10 mg FL DAILY PRN PRN Reason: Constipation Stop: 06/16/23 18:35 Carvedilol (Carvedilol 12.5 Mg Tablet) 12.5 mg PO BID JAK Stop: 06/16/23 20:59 Last Admin: 06/17/22 08:04 Dose: 12.5 mg Docusate Sodium (Docusate 100 Mg Capsule) 100 mg PO BID PRN PRN Reason: Constipation Stop: 06/16/23 18:35 Docusate Sodium (Docusate Enema 283 Mg/5 Ml Enema) 283 mg FL DAILY PRN PRN Reason: Constipation Stop: 06/16/23 18:35 Furosemide (Furosemide 20 Mg Tablet) 20 mg PO DAILY JAK Stop: 06/17/23 08:59 Isosorbide Mononitrate (Isosorbide Mononitrate 24hr Er 60 Mg Tab.Er.24h) 60 mg PO DAILY ON LICENSE OF [facility] Stop: 06/17/23 08:59 Lactulose (Lactulose 20 Gm/30 Ml Udc) 30 gm PO DAILY PRN PRN Reason: Constipation Stop: 06/16/23 18:35 Melatonin (Melatonin 5 Mg Tablet) 5 mg PO QHS PRN PRN Reason: Insomnia Stop: 06/16/23 18:34 Last Admin: 06/16/22 21:17 Dose: 5 mg Metformin HCl (Metformin 500 Mg Tablet) 500 mg PO DAILY ON LICENSE OF [facility] Stop: 06/17/23 08:59 Montelukast Sodium (Montelukast 10 Mg Tablet) 10 mg PO HS ON LICENSE OF [facility] Stop: 06/16/23 21:59 Last Admin: 06/16/22 21:17 Dose: 10 mg Omeprazole (Omeprazole 20 Mg Capsule.Dr) 40 mg PO DAILY ON LICENSE OF [facility] Stop: 06/17/23 08:59 Last Admin: 06/17/22 08:07 Dose: 40 mg Polyethylene Glycol (Polyethylene Glycol 3350 17 Gm Powd.Pack) 17 gm PO DAILY JAK Stop: 06/17/23 08:59 Last Admin: 06/17/22 08:07 Dose: Not Given Potassium Chloride (Potassium Chloride Er 20 Meq Tab.Er.Prt) 20 meq PO DAILY ON LICENSE OF [facility] Stop: 06/17/23 08:59 Last Admin: 06/17/22 08:07 Dose: 20 meq Pramipexole Dihydrochloride (Pramipexole 0.5 Mg Tablet) 0.5 mg PO HS ON LICENSE OF [facility] Stop: 06/16/23 21:59 Last Admin: [...] 05:57 06/17/22 05:57 Narrative: General: cooperative, comfortable HENWI Head: normal to inspection Eyes General: appearance [...] % (Auto) 57.7 Lymph % (Auto) 29.1 [place] % (Auto) 9.4 Eos % (Auto) 2.4 Baso % (Auto) 1.4 Nucleat RBC Rel Count 0.0 Neut # (Auto) 6.3 Lymph # (Auto) 3.2 [place] # (Auto) 1.0 H Eos # (Auto) [...] mobility Anticipated interventions: Physician management, PT, OT, DEHYDROGENATION CONVERTER HELPER, , Dietitian, RehabNursing, Case management 2. Therapy Functional Outcome/Goal: Anticipate independent for transfers Anticipated interventions: Physician management, PT, OT, DEHYDROGENATION CONVERTER HELPER, Case management, Dietitian, Rehab Nursing 3. Therapy Functional Outcome/Goal: Anticipate independent for ambulation Anticipated interventions: Physician management, PT, OT, DEHYDROGENATION CONVERTER HELPER Case management, Dietitian, Rehab Nursing 4.Therapy Functional Outcome/Goal: Anticipate independent for self-care Anticipated interventions: Physician management, PT, OT, DEHYDROGENATION CONVERTER HELPER, Case management, Dietitian, Rehab Nursing 5.Therapy Functional Outcome/Goal: Anticipate independent for functional communication and swallowing Anticipated interventions: Physician management, PT, OT, DEHYDROGENATION CONVERTER HELPER, Case management, Dietitian, Rehab Nursing Required Therapy [...] additional therapy on as needed basis. Comments: DEHYDROGENATION CONVERTER HELPER to evaluate and treat patient?s cognition, language and communication skills, assess swallow function. Other: Dietitian, Rehab nursing, Wound, P&O, Neuropsychology as needed RATIONALE FOR IRF ADMISSION: Patient has both medical and functional complexities that require 24 hour daily monitoring and intervention from [employer] as well as other consulting physicians including internal medicine as well as 24 hour daily facility manager nursing - for medical safe / optimal management. Patient requires interdisciplinary therapy team rehabilitation care including OT, PT, DEHYDROGENATION CONVERTER HELPER, SW, Psychology, Rehab Nursing, requires and can [...] tizanidine with h/o afib. Chronic pain received [place] 5/[address] Faustin. Will change [...] Allied health note review, nursing note review, technology methodology consultant note review, discussion with nursing and case management, and more than 50% of my time was spent on counseling and coordination of care, time spent 55 minutes Patient was personally seen by me, Dr. Zaman, on the day of encounter, reviewed the history and the relevant portions of the chart, including current orders, allied health and technology methodology consultant notes, labs/imaging and performed smith elements of exam and I formulated the plan of care and facilitated the medical decision making. Documented By: Stiven Zaman MD 06/17/22 2851 Signed By: <Electronically signed by Stiven Zaman MD> 06/17/22 3399 [facility] Work Phone: 1([phone]) 487-938401-04-2023 Consult note Author Rafik Massouh [facility] June 17, 2022 1:33pm Note Date/Time June 17, 2022 1: 33pm [facility] [address] [place] [address] Hospitalist Consult Note Signed Patient: Abdirahman Gomez MR#: [id number] : 1940 Acct:[id number] Age/Sex: 81 / F Adm Date: 3 Loc: Room: [address] [place] [address] Type: ADM IN Attending Dr: Stiven Zaman [...] mg 06/16/22 18:36 Bisacodyl 10 Mg Supp.Rect FL 06/16/23 18:35 DAILY PRN Constipation Carvedilol 12.5 mg 06/16/22 21:00 06/17/22 08:04 Carvedilol 12.5 Mg Tablet PO 06/16/23 20:59 12.5 mg BID JAK Administration Docusate Sodium 100 mg 06/16/22 18:36 Docusate 100 Mg Capsule PO 06/16/23 18:35 BID PRN Constipation Docusate Sodium 283 mg 06/16/22 18:36 Docusate Enema 283 Mg/5 Ml Enema FL 06/16/23 18:35 DAILY PRN Constipation Furosemide 20 [...] oriented to place, time and person HEENT: [place] conjunctiva and NL buccal mucosa Neck: Supple, [...] % (Auto) 57.7, Lymph % (Auto) 29.1, [place] % (Auto) 9.4, Eos % (Auto) 2.4, Baso % (Auto) 1.4, Nucleat RBC Rel Count 0.0, Neut # (Auto) 6.3, Lymph # (Auto) 3.2, [place] # (Auto) 1.0 H, Eos # (Auto) [...] PCP and out patient providers to obtain [facility] record entirely to follow up on illnesses, symptoms, abnormal findings that I have and have not addressed during this encounter and hospitalization in out patient setting. Documented By: Frida De La Cruz MD 06/17/22 1329 Signed By: <Electronically signed by Frida De La Cruz MD> 06/17/22 1333 [facility] Work Phone: 1(494) 182-173601-03-2023 Progress note Author Frida De La Cruz [facility] June 16, 2022 11:42am Note Date/Time June 16, 2022 11 :42am [facility] [address] [place] [address] Progress Note Signed Patient: Abdirahman Gomez MR#: [id number] : 1940 Acct:[id number] Age/Sex: 81 / F Adm Date: 2 Loc: Room: [address] [place] [address] Type: ADM IN Attending Dr: Frida De [...] Frida De La Cruz MD> 06/16/22 1142 [facility] Work Phone: [phone]) 671-309401-03-2023 Discharge summary Author Frida De La Cruz [facility] June 16, 2022 8:32am Note Date/Time June 16, 2022 8: 24am [facility] [address] [place] [address] Discharge Summary Signed with Addenda Patient: Abdirahman Gomez MR#: [id number] : 1940 Acct:[id number] Age/Sex: 81 / F Adm Date: 2 Loc: 3T Room: 8S3538-[address]: Frida De La Cruz MD Copies to: MD Frida Mcclulough MD~ ADDENDUM2 In addition patient was noted [...] fib with RVR. She was seen by siebel architect. She was recommended to be on Eliquis [...] % (Auto) 61.6, Lymph % (Auto) 27.7, [place] % (Auto) 6.9, Eos % (Auto) 2.6, Baso % (Auto) 1.2, Nucleat RBC Rel Count 0.1, Neut # (Auto) 6.6, Lymph # (Auto) 2.9, [place] # (Auto) 0.7, Eos # (Auto) 0.3, [...] oriented to place, time and person HEENT: [place] conjunctiva and NL buccal mucosa Neck: Supple, [...] Discharge Plan Discharge Plan Patient Disposition: Rehab [facility] Activity: No Activity Restriction Diet: Low-Sodium and [...] ask your primary care provider to obtain [facility] records entirely to follow up on all of the abnormal physical, laboratory, and imaging findings that I have not addressed. Please return back to the emergency room or seek medical attention if your symptoms worsen or return. Discharging you from [facility] does not mean that your medical [...] by Frida De La Cruz MD> 06/16/22823 [facility] Work Phone: 1(678) 413-157001-02-2023 Progress note Author Frida De La Cruz [facility] June 15, 2022 8:38am Note Date/Time June 15, 2022 8: 38am [facility] [address] [place] [address] Hospitalist Progress Note Signed Patient: Abdirahman Gomez MR#: [id number] : 1940 Acct:[id number] Age/Sex: 81 / F Adm Date: 2 Loc: 3T Room: [address] [place] [address] Type: ADM IN Attending Dr: Frida De [...] oriented to place, time and person HEENT: [place] conjunctiva and NL buccal mucosa Neck: Supple, [...] Frida De La Cruz MD> 06/15/22 0838 [facility] Work Phone: 1([phone] 116-871201-01-2023 Progress note Author Nathaniel Castillo [facility] June 14, 2022 2:53pm Note Date/Time June 14, 2022 2: 53pm [facility] [address] [place] [address] Hospitalist Progress Note Signed Patient: Abdirahman Gomez MR#: [id number] : 1940 Acct:[id number] Age/Sex: 81 / F Adm Date: 2 Loc: Room: [address] [place] [address] Type: ADM IN Attending Dr: Nathaniel Castillo [...] signed by Nathaniel Castillo MD> 06/14/22 145 [facility] Work Phone: 1([phone]) 746-745612-31-2022 Progress note Author Yoav Prado [facility] June 13, 2022 2:58pm Note Date/Time June 13, 2022 2:56pm [facility] [address] [place] [address] Cardiology Progress Note Signed Patient: Abdirahman Gomez MR#: [id number] : 1940 Acct:[id number] Age/Sex: 81 / F Adm Date: 2 Loc: Room: [address] [place] [address] Type: ADM IN Attending Dr: Nathaniel Castillo [...] signed by MD Yoav Prado> 06/13/22 1458 [facility] Work Phone: 1([phone]) 474-133912-31-2022 Progress note Author Nathaniel Castillo [facility] June 13, 2022 2:00pm Note Date/Time June 13, 2022 9:29am [facility] [address] [place] [address] Hospitalist Progress Note Signed Patient: Abdirahman Gomez MR#: [id number] : 1940 Acct:[id number] Age/Sex: 81 / F Adm Date: 2 Loc: Room: [address] [place] [address] Type: ADM IN Attending Dr: Nathaniel Castillo [...] of care and confirmed it with the resident/student/REFERRAL RN. Patient resting in bed comfortably. Denies chest [...] signed by DO RYAN Juarez> 06/13/22 1020 [facility] Work Phone: [phone]) 639-405112-30-2022 Progress note Author Nathaniel Castillo [facility] June 12, 2022 3:02pm Note Date/Time June 12, 2022 1:38pm [facility] [address] [place] [address] Hospitalist Progress Note Signed Patient: Abdirahman Gomez MR#: [id number] : 1940 Acct:[id number] Age/Sex: 81 / F Adm Date: 2 Loc: Room: [address] [place] [address] Type: ADM IN Attending Dr: Nathaniel Castillo [...] of care and confirmed it with the resident/student/REFERRAL RN. Patient resting in chair comfortably. 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 auto body estimator, full strength with flexion and extension of [...] Tablet PO 06/10/23 21:59 Not Given HS ON LICENSE OF [facility] Carvedilol 12.5 mg 06/09/22 08:00 06/12/22 08:30 Carvedilol 12.5 Mg Tablet PO 06/09/23 07:59 12.5 mg BID.WITH.MEALS JAK Administration Melatonin 5 mg 06/09/22 04:43 06/10/22 21:43 Melatonin 5 Mg Tablet PO 06/09/23 04:42 5 mg QHS PRN Administration Insomnia Montelukast Sodium 10 mg 06/09/22 22:00 06/12/22 00:28 Montelukast 10 Mg Tablet PO 06/09/23 21:59 Not Given HS ON LICENSE OF [facility] Nitroglycerin 0.4 mg 06/10/22 10:05 [...] Tablet PO 06/09/23 21:59 Not Given HS ON LICENSE OF [facility] Tizanidine HCl 4 mg 06/09/22 [...] signed by DO RYAN Juarez> 06/12/22 1442 [facility] Work Phone: 1(112) 889-514012-30-2022 Progress note Author Paramjit Pride [facility] June 12, 2022 11:05am Note Date/Time June 12, 2022 11:05am [facility] [address] [place] [address] Cardiology Progress Note Signed Patient: Abdirahman Gomez MR#: [id number] : 1940 Acct:[id number] Age/Sex: 81 / F Adm Date: 2 Loc: Room: [address] [place] [address] Type: ADM IN Attending Dr: Nathaniel Castillo [...] signed by Paramjit Pride MD> 06/12/22 1105 [facility] Work Phone: [phone]) [phone] Progress note Author Nathaniel Castillo [facility] June 11, 2022 4:24pm Note Date/Time June 11, 2022 12:40pm [facility] [address] [place] [address] Hospitalist Progress Note Signed Patient: Abdirahman Gomez MR#: [id number] : 1940 Acct:[id number] Age/Sex: 81 / F Adm Date: 2 Loc: Room: [address] [place] [address] Type: ADM IN Attending Dr: Nathaniel Castillo [...] of care and confirmed it with the resident/student/REFERRAL RN. Patient resting in bed comfortably. Denies chest [...] grossly intact, full strength left hand auto body estimator which is improved upon yesterday's exam, full [...] signed by DO RYAN Juarez> 06/11/22 1240 [facility] Work Phone: [phone]) [phone] Progress note Author Paramjit Pride [facility] June 11, 2022 9:45am Note Date/Time June 11, 2022 9:46am [facility] [address] [place] [address] Cardiology Progress Note Signed Patient: Abdirahman Gomez MR#: [id number] : 1940 Acct:[id number] Age/Sex: 81 / F Adm Date: 2 Loc: Room: [address] [place] [address] Type: ADM IN Attending Dr: Nathaniel Castillo [...] % (Auto) 65.1 Lymph % (Auto) 24.1 [place] % (Auto) 9.1 Eos % (Auto) 1.2 Baso % (Auto) 0.5 Nucleat RBC Rel Count 0.1 Neut # (Auto) 7.4 Lymph # (Auto) 2.8 [place] # (Auto) 1.0 H Eos # (Auto) [...] (min): 20 Documented By: Paramjit Pride MD 06/11/2216 Signed By: <Electronically signed by Paramjit Pride MD> 06/11/22 6608 [facility] Work Phone: 1(550) 567-110812-28-2022 Progress note Author Paramjit Tann [facility] June 10, 2022 6:21pm Note Date/Time June 10, 2022 12:12pm [facility] [address] [place] [address] Cardiology Progress Note Signed with Addenda Patient: Abdirahman Gomez MR#: [id number] : 1940 Acct:[id number] Age/Sex: 81 / F Adm Date: 2 Loc: Room: [address] [place] [address] Type: ADM IN Attending Dr: Nathaniel Castillo [...] EKG. The patient's troponin peaked initially in [place] emergency department at 9000and is now come [...] H* Echocardiogram Signed Patient: Abdirahman Gomez MR#: [id number] : 1940 Acct:[id number] Age/Sex: 81 / F ADM Date: 06/09/22 Loc: Room:? 1B0902-5 Type:?ADM IN Attending Dr: Nathaniel Castillo MD [...] 30 Documented By: Paramjit Pride MD 06/10/22 1157 Signed By: <Electronically signed by Paramjit Pride MD> 06/10/22 1220 [facility] Work Phone: 1([phone]) 739-132912-28-2022 Progress note Author Nathaniel Castillo [facility] June 10, 2022 1:35pm Note Date/Time June 10, 2022 1:31pm [facility] [address] [place] [address] Progress Note Signed Patient: Abdirahman Gomez MR#: [id number] : 1940 Acct:[id number] Age/Sex: 81 / F Adm Date: 2 Loc: Room: [address] [place] [address] Type: ADM IN Attending Dr: Nathaniel Castillo [...] abnormalities, but upon review from a different siebel architect, it was noted that she has akinesis and thinning of the basal inferior wall of LV suggestive of a prior MT. #2 atrial fibrillation. Patient had a small [...] <Electronically signed by Nathaniel Castillo MD> 06/10/22 9725 [facility] Work Phone: 1([phone]) 423-447712-27-2022 History and physical note Author Chema Milner [facility] June 09, 2022 8:18pm Note Date/Time June 09, 2022 4:14am [facility] [address] [place] [address] Hospitalist H&P Signed Patient: Abdirahman Gomez MR#: [id number] : 1940 Acct:[id number] Age/Sex: 81 / F Adm Date: 2 Loc: Room: [address] [place] [address] Type: ADM IN Attending Dr: Nathaniel Castillo MD Copies to: MD Chema Pham MD Douglas M Hoy, MD Samantha Mason, DO, RES~ HPI DATE OF EXAMINATION: 06/09/22 CHIEF COMPLAINT: Weakness HISTORY OF PRESENT ILLNESS: Patient is an 81-year-old female that is a transfer from [place] due to elevated troponins. Past medical history includes hypertension, hx CABG, presence of pacemaker, and paroxysmal atrial fibrillation. Patient had originally presented to the emergency room at [place] due to generalized weakness that started several [...] negative unless noted below or in HPI [facility] Vaccinated for COVID-19?: Yes Medical History [...] with Dr. Morton while patient was at [place]. It is not felt that patient is [...] plan of care and confirmed the nurse practitioners/residents/collector of internal revenue written note. Patient is a 81-year-old lady history of CAD status post CABG, hypertension, A. fib, presence of pacemaker presented to [place] due to weakness and bloody stools. Patient has history of diverticulosis. Hemoglobin 13.5. Incidentally troponins were significantly elevated but patient did not have any cardiac complaints. EKG with no acute ischemic changes. EKG reviewed by siebel architect, not felt to be an acute ischemic event and recommended transfer to [facility] for further evaluation and management. Patient [...] <Electronically signed by Chema Milner MD> 06/09/222017 [facility] Work Phone: 1([phone]) 145-865112-27-2022 Consult note Author Paramjit Pride [facility] June 09, 2022 3:21pm Note Date/Time June 09, 2022 3:16pm [facility] [address] [place] [address] Cardiology Consult Note Signed Patient: Abdirahman Gomez MR#: [id number] : 1940 Acct:[id number] Age/Sex: 81 / F Adm Date: 2 Loc: Room: [address] [place] [address] Type: ADM IN Attending Dr: Nathaniel Castillo [...] CAB x3 done approximately 30years ago in [place] who was transferred to our facility from [facility] 2days ago after presenting complaining of generalized [...] was activated. The patient was taken to [place] emergency department for evaluation. In the ER at [place] ER EKG was suspicious for ST segment [...] was anticoagulated and she was sent to [facility] for furtherevaluation. Since being here [facility] patient has had a mild increase [...] x10E3/uL Lymph # (Auto) 2.3 (1.00-4.8) x10E3/uL [place] # (Auto) 1.3 H (0.0-0.8) x10E3/uL Eos [...] AV and intraventricular conduction: 1 AV block MT, pacemaker, normal Myocardial infarction: inferior MT (old age indeterminate) Normal tracing: no change [...] discharge she can follow-up with her primary siebel architect in [place]. Documented By: Paramjit Pride MD 06/09/22 1508 Signed By: <Electronically signed by Paramjit Pride MD> 06/09/22 9131 [facility] Work Phone: 1(254) 692-512712-27-2022 Progress note Author Nathaniel Castillo [facility] June 09, 2022 3:06pm Note Date/Time June 09, 2022 1:59pm [facility] [address] [place] [address] Hospitalist Progress Note Signed Patient: Abdirahman Gomez MR#: [id number] : 1940 Acct:[id number] Age/Sex: 81 / F Adm Date: 12/27/2 2 Loc: Room: 0V9890-9 Type: ADM IN Attending Dr: Nathaniel Castillo [...] of care and confirmed it with the resident/student/REFERRAL RN. Patient resting in bed comfortably. Denies chest [...] of 5 strength on left hand auto body estimator, full strength with flexion and extension of [...] examination Only has decreased strength in auto body estimator on the left upon my exam Denies [...] signed by Nathaniel Castillo MD> 06/09/22 1506 [facility] Work Phone: 1(278) 119-451306-15-2022 NoteMR#: [id number] I [facility] Pt. Name: Abdirahman Gomez Admitted: 11/22/2021 [...] is an 81-year-old female who presented to [facility] with chief complaint of symptomatic [...] Mcfadden PA-C Date Trans: 11/26/2021 06:47 A/daniel [id number] cc: Irish Faustin M.D. [address] [place] [address]Nnx[facility] CenterEvaluation [facility]* Diagnosis Onset Date Resolution Status A-fib acute Abnormal ECG acute Constipation acute Diverticulosis acute Elevated troponin acute Embolic stroke acute Hypertension acute Pacemaker acute Paroxysmal atrial fibrillation acute Upper extremity weakness acu te [facility] Work Phone: Evaluation note* Diagnosis Onset [...] acute Pacemaker acute Paroxysmal atrial fibrillation acute [facility] Work Phone: Hospital Discharge instructions Additional [...] ask your primary care provider to obtain [facility] records entirely to follow up on all of the abnormal physical, laboratory, and imaging findings that I have not addressed. Please return back to the emergency room or seek medical attention if your symptoms worsen or return. Discharging you from [facility] does not mean that your medical care ends here and now. You may still need additional monitoring, work up, investigation, and treatment plan to be handled from this point on by out patient providers including your primary care provider and specialists. For any medication question, please contact your retail pharmacist or your primary care provider. Thank you.[facility] Work Phone: Summary Purpose Family History [...] and content) DATE CREATED AUTHOR 12/03/[address] [facility] DATE CREATED AUTHOR AUTHOR'S ORGANIZ ATION 06/16/2022 [facility] DATE CREATED AUTHOR AUTHOR'S ORGANIZ ATION 07/18/2022 [facility] DATE CREATED AUTHOR AUTHOR'S ORGANIZ ATION 08/03/2022 [facility] DATE CREATED AUTHOR AUTHOR'S ORGANIZ ATION 06/30/2024 [facility] Care Teams (unrecognized sec tion and [...] Dominguez MD Other Provider Active Devora J Chetek , REFERRAL RN-C Other Provider Active Ga Kwong MD Other Provider Active Maurilio Banks MD Other Provider Active Chema Milner MD Other Provider Active Herminia Andrew , DO Other Provider Active Johnny Benson , DO Other Provider Active Rober Perez , DO Other Provider Active Brandi Cifuentes CERTIFIED SHORTHAND REPORTER Other Provider Active Devante Lafleur , DO [...] BE BASED ON THE PRIMARY CLINICAL RECORDS. [facility]. provides no warranty or guarantee of the accuracy or completeness of information in this document.
--- NOTE | 2024-08-09 13:00 | CA_ITS ---
Patient Name: ABDIRAHMAN GOMEZ MR#: [id number] : 1940 Exam Date: 08/09/2024 Ordering Doctor: DR Ganesh Samuel . ECHOCARDIOGRAM REPORT PROCEDURE: CA ECHO DOPPLER COMPLETE INDICATIONS: Atrial fibrillation, CABGx4 COMPARISON: None. DESCRIPTION: COMPLETE ECHOCARDIOGRAM Real-time transthoracic echocardiography with 2D, M-mode, spectral and color flow Doppler performed. QUALITY: Technical quality was good. LEFT VENTRICLE: Normal chamber size. Normal left ventricular wall thickness. Systolic function is normal LV EF: Normal left ventricular ejection fraction, (55%). DIASTOLIC: ATRIAL SEPTUM: Visually appears intact. LEFT ATRIUM: Moderate dilatation. RIGHT ATRIUM: Moderate dilatation. RIGHT VENTRICLE: Moderate dilatation. Normal right ventricular systolic function. Pacer wire present. TRICUSPID VALVE: Normal mobility and thickness. No stenosis with moderate to severe regurgitation. Doppler studies reveal moderately (45-60) elevated right sided pressures. RVSP 48 mmHg MITRAL VALVE: Normal mobility and thickness. No evidence of mitral valve stenosis. There is no mitral annular calcification. Mild mitral regurgitation. AORTIC VALVE: Normal trileaflet appearance. Thickened aortic valve. Normal leaflet mobility. No evidence of aortic valve stenosis. Trivial aortic regurgitation. AORTIC ROOT: Normal diameter and appearance. Ascending aorta is normal in size. PULMONIC VALVE: Normal thickness and mobility. No stenosis. Trivial regurgitation. PERICARDIUM: No evidence of pericardial effusion. IVC: Collapses with inspirations. IVC is normal in size. PLEURA: CONCLUSION: 1. Normal left ventricular size and systolic function. LVEF is 55%. 2. Moderately dilated right ventricle with normal systolic function. 3. Moderate biatrial dilatation. 4. Moderate to severe tricuspid regurgitation. 5. Mild mitral regurgitation. 6. Moderately elevated right-sided pressures. RVSP is 48 mmHg. Adult Echocardiography Procedure Report Left Ventricle LVEDD (3.7 - 5.6 cm): 3.61 cm LVESD (2.2 - 4.0 cm): 2.80 cm LVIVS thickness (0.6 - 1.2 cm): 0.86 cm LVPW thickness (0.5 - 1.0 cm): 0.86 cm e': 0.08 m/s E - e': 11.54 LVOT Max Gradient: 0.76 mm[Hg] LVOT Area (cm2): 0.44 m/s Peak Velocity (LVOT): 0.44 m/s Mean Velocity (LVOT): 0.27 m/s LVOT Diameter 2.06 cm Left Atrium LA Volume Index (2D A2C): 43.71 ml/m2 Left Atrium Systolic Dimension: 3.39 cm Mitral Valve MV E to A Ratio: 5.72 Mitral Valve A-Wave Peak Velocity: 0.17 m/s Mitral Valve E-Wave Peak Velocity: 0.95 m/s Right Ventricle Aorta AO Root Diam: 2.56 cm Ascending Ao Diam: 2.47 cm Aortic Valve AoV Area (Peak Luis): 1.70 cm2, 1.70 cm2 AoV Area (VTI): 1.57 cm2, 1.57 cm2 Peak Velocity(Antegrade Flow): 0.85 m/s Peak Gradient(Antegrade Flow): 2.90 mm[Hg] Mean Velocity(Antegrade Flow): 0.57 m/s Mean Gradient(Antegrade Flow): 1.44 mm[Hg] Velocity Time Integral: 15.26 cm Tricuspid Valve Peak Velocity (Regurgitant Flow): 2.72 m/s, 2.82 m/s, 3.35 m/s Pulmonic Valve Peak Gradient: 2.25 mm[Hg], 2.02 mm[Hg] Right Atrium Right Atrium Systolic Pressure: 63.21 ml, 63.21 ml Dictated by: Kirk Lopez M.D. on 08/09/2024 at 17:14 Approved by: Kirk oLpez M.D. on 08/09/2024 at 17:18
--- NOTE | 2024-08-09 13:41 | MM_ITS ---
Patient Name: ABDIRAHMAN GOMEZ MR#: [id number] : 1940 Exam Date: 08/09/2024 Ordering Doctor: DR Ganesh Samuel . RADIOLOGY REPORT PROCEDURE: MM TOMOSYNTHESIS SCREENING BI COMPARISON: MM TOMOSYNTHESIS SCREENING BI, 05/10/2023. MG MAMM SCREEN 3D MILANA CAD, 10/27/2021. MG MAMM SCREEN MILANA W CAD, 11/13/2016. INDICATIONS: Screening Calculator Name NCI Breast Cancer Risk Assessment Tool 5 Year Breast Cancer Risk 1.10% Lifetime Breast Cancer Risk 1.30% Personal Breast Cancer No Personal Ovarian Cancer No Treatments None Family Cancers None LOCATION: [facility] BREAST COMPOSITION: The breasts are almost entirely fatty. FINDINGS: RIGHT BREAST: No significant suspicious finding. Benign appearing calcifications present paired LEFT BREAST: No significant suspicious finding. Benign-appearing calcifications are present. There is a pacer generator along the left chest wall. DIAGNOSTIC CATEGORY 1--NEGATIVE. NO CHANGE FROM COMPARISON ASSESSMENT. RECOMMENDATIONS: ROUTINE MAMMOGRAM AND CLINICAL EVALUATION IN 12 MONTHS. PLEASE NOTE: A NORMAL MAMMOGRAM DOES NOT EXCLUDE THE POSSIBILITY OF BREAST CANCER. A CLINICALLY SUSPICIOUS PALPABLE LUMP SHOULD BE BIOPSIED. Dictated by: Rogelio Mcclendon MD on 08/09/2024 at 16:00 Approved by: Rogelio Mcclendon MD on 08/09/2024 at 16:02
--- NOTE | 2024-08-09 14:10 | XR_ITS ---
The [address] [address] Patient Name: ABDIRAHMAN GOMEZ MRN: [id number] date: 1940 Sex: F Assigned Patient Location: CARD Current Patient Location: CARD Accession/Order Number: [id number] Exam Date: 08/09/2024 14:27 Report Date: 08/09/2024 14:32 At the request of: IRISH FAUSTIN MD Procedure: XR chest 2V PA AND LATERAL CHEST: CLINICAL HISTORY: Right anterior chest pain. Follow-up infiltrates seen on CT COMPARISON: 07/13/2024 CT and chest x-ray 11/04/2023 There are median sternotomy wires and a left-sided pacemaker. The lower lobe infiltrative changes seen at the time of the comparison CT are no longer identified. There is no developing consolidation, effusion or pneumothorax. The cardiac, hilar and mediastinal silhouettes are similar. There is no vascular congestion. The visualized bony thorax is intact. XR/XR chest 2V IMPRESSION: NO ACUTE CARDIOPULMONARY ABNORMALITY. Impression dictated by: Ngozi Desai M.D.08/09/2024 2:32 PM Dictation Location: [place] [address] Electronically authenticated by: [id number] Y Date: 08/09/2024 14:32
[2024-08-09 14:34] LABS: Basophils Absolute Auto 0.1 10^3/uL (0.0-0.1); Basophils Percent Auto 0.4 % (0.2-2.0); Eosinophils Absolute Auto 0.1 10^3/uL (0.0-0.7); Eosinophils Percent Auto 0.7 % (0.9-7.0); Hematocrit 45.2 % (36.0-48.0); Hemoglobin 15.2 g/dL (12.0-16.0); Immature Granulocytes Abs Auto 0.21 10^3/uL (0.00-0.03); Immature Granulocytes Pct Auto 1.2 % (0.0-0.5); Lymphocytes Absolute Auto 3.3 10^3/uL (1.2-3.8); Lymphocytes Percent Auto 18.8 % (20.5-60.0); Mean Corpuscular HGB Conc 33.6 g/dL (29.9-35.2); Mean Corpuscular Volume 104.1 fL (81.0-99.0); Mean Platelet Volume 9.2 fL (9.5-13.5); Monocytes Absolute Auto 1.1 10^3/uL (0.3-0.8); Monocytes Percent Auto 6.3 % (1.7-12.0); Neutrophils Absolute Auto 12.9 10^3/uL (1.4-6.5); Neutrophils Percent Auto 72.6 % (43.0-75.0); Platelet Count 304 10^3/uL (150-450); Red Blood Count 4.34 10^6/uL (4.20-5.40); Red Cell Distribution Width 13.2 % (11.0-15.0); White Blood Count 17.7 10^3/uL (4.0-11.0)
[2024-08-09 15:12] LABS: Alanine Aminotransferase 36 U/L (14-59); Albumin Globulin Ratio 0.9; Albumin Level 3.8 g/dL (3.4-5.0); Alkaline Phosphatase 85 U/L (46-116); Aspartate Amino Transferase 44 U/L (15-37); BUN Creatinine Ratio 14.9; Bilirubin Total 0.4 mg/dL (0.2-1.0); Calcium 9.6 mg/dL (8.5-10.1); Carbon Dioxide 23.3 mmol/L (21.0-32.0); Chloride 102 mmol/L (98-107); Estimated GFR (African America >60 (>=60 mL/min/1.73m^2); Estimated GFR (Non-African Ame 52 (>=60 mL/min/1.73m^2); Globulin 4.1 g/dL; Glucose 109 mg/dL (74-106); Potassium 4.3 mmol/L (3.5-5.1); Sodium 136 mmol/L (136-145); Total Protein 7.9 g/dL (6.4-8.2)
== END 2024-08-09 12:55 | disposition home or self-care (01) ==
LOC: CARD 12:54
PROVIDERS: PCP Family Medicine; Visit Provider Family Medicine
DX: I48.0 Paroxysmal atrial fibrillation (principal); Z12.31 Encounter for screening mammogram for malignant neoplasm of breast; J18.9 Pneumonia, unspecified organism; Z95.1 Presence of aortocoronary bypass graft; I08.1 Rheumatic disorders of both mitral and tricuspid valves
CPT/HCPCS: 36415; 71046; 77063; 77067; 80053; 85025; 93306

== ENCOUNTER 2024-09-27 12:04 | Outpatient (OUT) | payer MEDICARE, OTHER, SELFPAY ==
[2024-09-27 12:31] LABS: Basophils Absolute Auto 0.1 10^3/uL (0.0-0.1); Basophils Percent Auto 0.6 % (0.2-2.0); Eosinophils Absolute Auto 0.1 10^3/uL (0.0-0.7); Eosinophils Percent Auto 0.4 % (0.9-7.0); Hematocrit 42.9 % (36.0-48.0); Hemoglobin 14.5 g/dL (12.0-16.0); Immature Granulocytes Abs Auto 0.41 10^3/uL (0.00-0.03); Immature Granulocytes Pct Auto 2.6 % (0.0-0.5); Lymphocytes Absolute Auto 3.3 10^3/uL (1.2-3.8); Lymphocytes Percent Auto 20.7 % (20.5-60.0); Mean Corpuscular HGB Conc 33.8 g/dL (29.9-35.2); Mean Corpuscular Hemoglobin 34.4 pg (26.7-34.0); Mean Corpuscular Volume 101.9 fL (81.0-99.0); Mean Platelet Volume 9.2 fL (9.5-13.5); Monocytes Absolute Auto 1.2 10^3/uL (0.3-0.8); Monocytes Percent Auto 7.3 % (1.7-12.0); Neutrophils Absolute Auto 10.9 10^3/uL (1.4-6.5); Neutrophils Percent Auto 68.4 % (43.0-75.0); Platelet Count 290 10^3/uL (150-450); Red Blood Count 4.21 10^6/uL (4.20-5.40); Red Cell Distribution Width 13.8 % (11.0-15.0); White Blood Count 15.9 10^3/uL (4.0-11.0)
[2024-09-27 12:37] LABS: Estimated Average Glucose 126 mg/dL
[2024-09-27 13:59] LABS: Alanine Aminotransferase 34 U/L (14-59); Albumin Globulin Ratio 0.9; Albumin Level 3.6 g/dL (3.4-5.0); Alkaline Phosphatase 80 U/L (46-116); Anion Gap 12.5; Aspartate Amino Transferase 35 U/L (15-37); Bilirubin Total 0.4 mg/dL (0.2-1.0); Calcium 9.2 mg/dL (8.5-10.1); Carbon Dioxide 24.6 mmol/L (21.0-32.0); Chloride 107 mmol/L (98-107); Cholesterol 194 mg/dL (<=200); Estimated GFR (African America >60 (>=60 mL/min/1.73m^2); Estimated GFR (Non-African Ame 53 (>=60 mL/min/1.73m^2); Free T3 2.98 pg/mL (2.18-3.98); Globulin 3.8 g/dL; Glucose 108 mg/dL (74-106); HDL Cholesterol 65 mg/dL (40-60); Potassium 4.1 mmol/L (3.5-5.1); Sodium 140 mmol/L (136-145); Total Protein 7.4 g/dL (6.4-8.2); Triglycerides 189 mg/dL (<=150); VLDL CHOLESTEROL 37.8 mg/dL
== END 2024-09-27 12:05 | disposition home or self-care (01) ==
LOC: LAB 12:04
PROVIDERS: PCP Family Medicine; Visit Provider Family Medicine
DX: E78.00 Pure hypercholesterolemia, unspecified (principal); I10 Essential (primary) hypertension; Z12.11 Encounter for screening for malignant neoplasm of colon; E04.1 Nontoxic single thyroid nodule; E16.1 Other hypoglycemia; R73.09 Other abnormal glucose; R53.83 Other fatigue
CPT/HCPCS: 36415; 80053; 80061; 83036; 84436; 84443; 84481; 85025

== ENCOUNTER 2025-01-23 14:35 | Emergency (ER) | payer MEDICARE, OTHER, SELFPAY ==
--- OUTSIDE RECORDS SUMMARY | 2024-11-13 04:10 | XMS_ITS ---
Author Organization The [facility] in [place] Address [address] [place] [address] Care Team Providers Care Alodize Machine Helper Name Role Phone Jimmie Lalo Primary Care Provider REASON FOR VISIT rf lorazepam and hydrocodone Medications Medication SIG (Take, Route, Frequency, Duration) Notes Start Date End Date Status LORazepam 1 MG 1/2 to 1 tablet as n eeded Orally dx M54.5 Twice a day for 30 days PRN 11/14/2024 Active HYDROcodone-Acetaminophen 5-325 MG 1 tablet as needed Orally BID dx M51.36 for 30 days 11/14/2024 Active Encounters Encounter Location Date Provider Diagnosis [address] [address] 11/13/2024 Lalo Gustavosherie Plan Of Treatment Medication Medication Name Sig Start Date Stop Date Notes LORazepam 1 MG 1/2 to 1 tablet as n eeded Orally dx M54.5 Twice a day for 30 days 11/14/2024 PRN HYDROcodone-Acetaminophen 5- 325 MG 1 tablet as needed Orally BID dx M51.36 for 30 days 11/14/2024 Progress Notes * America GOMEZ MDOB: [birth year] (84 yo F)Acc No.[id number]:11/13/2024 Patient: Meryl America ALTMAN :1940 A ge:84 Y S ex:Female Address:[address] [place] [address] * Refills Refill HYDROcodone-Acetaminophen Tablet, 5-325 MG, Orally, 60, 1 tablet as needed, BID dx M51.36, 30 days, Refills=0 Refill LORazepam Tablet, 1 MG, Orally dx M54.5, 60, 1/2 to 1 tablet as needed, Twice a day, 30 days, Refills=0 * true * Date: Generated for Lenny arita/Suzi/Lorna on: 0 01/23/2025 02:08 PM EDT
--- OUTSIDE RECORDS SUMMARY | 2024-12-13 06:47 | XMS_ITS ---
Author Organization The [facility] in [place] Address [address] [place] [address] Care Team Providers Care Nurse Executive Name Role Phone Gustavosherie Lalo Primary Care Provider REASON FOR VISIT rf hydrocodone and Lorazepam Medications Medication SIG (Take, Route, Frequency, Duration) Notes Start Date End Date Status LORazepam 1 MG 1/2 to 1 tablet as n eeded Orally dx M54.5 Twice a day for 30 days PRN 12/13/2024 Active HYDROcodone-Acetaminophen 5-325 MG 1 tablet as needed Orally BID dx M51.36 for 30 days 12/13/2024 Active Encounters Encounter Location Date Provider Diagnosis [address] [address] 12/13/2024 Lalo Gustavosherie Plan Of Treatment Medication Medication Name Sig Start Date Stop Date Notes LORazepam 1 MG 1/2 to 1 tablet as n eeded Orally dx M54.5 Twice a day for 30 days 12/13/2024 PRN HYDROcodone-Acetaminophen 5- 325 MG 1 tablet as needed Orally BID dx M51.36 for 30 days 12/13/2024 Progress Notes * America GOMEZ MDOB: [birth year] (84 yo F)Acc No.[id number]:12/13/2024 Patient: Meryl America ALTMAN :1940 A ge:84 Y S ex:Female Address[address] [place] [address] * Refills Refill LORazepam Tablet, 1 MG, Orally dx M54.5, 60, 1/2 to 1 tablet as needed, Twice a day, 30 days, Refills=0 Refill HYDROcodone-Acetaminophen Tablet, 5-325 MG, Orally, 60, 1 tablet as needed, BID dx M51.36, 30 days, Refills=0 * true * Date: Generated for Lenny arita/Suzi/Lorna on: 0 01/23/2025 02:08 PM EDT
--- OUTSIDE RECORDS SUMMARY | 2025-01-10 09:13 | XMS_ITS ---
Author Organization The [facility] in [place] Address [address] [place] [address] Care Team Providers Care Tunnel Heading Inspector Name Role Phone Lalo Samuel Primary Care Provider REASON FOR VISIT Hydrocodone refill Medications Medication SIG (Take, Route, Frequency, Duration) Notes Start Date End Date Status HYDROcodone-Acetaminophen 5-325 MG 1 tablet as needed Orally BID dx M51.36 for 30 days 01/10/2025 Active Encounters Encounter Location Date Provider Diagnosis [facility] [address] [place] [address] 01/10/2025 Lalo Samuel Plan Of Treatment Medication Medication Name Sig Start Date Stop Date Notes HYDROcodone-Acetaminophen 5- 325 MG 1 tablet as needed Orally BID dx M51.36 for 30 days 01/10/2025 Progress Notes * America GOMEZ MDOB: [birth year] (84 yo F)Acc No.[id number]:01/10/2025 Patient: Meryl America ALTMAN :1940 A ge:84 Y S ex:Female [address] [place] [place] [address] * Refills Refill HYDROcodone-Acetaminophen Tablet, 5-325 MG, Orally, 60, 1 tablet as needed, BID dx M51.36, 30 days, Refills=0 * true * Date: Generated for Printi ng/Faxing/eTransmitting on: 0 01/23/2025 02:08 PM EDT
[2025-01-23] VITALS (19 sets, daily range): BP systolic 171; BP diastolic 95; PULSE 74–101; TEMP 36.5; O2SAT 93–97; BMI 26.5
--- OUTSIDE RECORDS SUMMARY | 2025-01-23 14:15 | XMS_ITS | Encounter Summary ---
Author Organization The [facility] Address [address] [place] [address] Care Team Providers Care Guillotine Operator Name Role Phone Ganesh [place] MD Primary Care Provider [phone] Encounter Details Date Type Department Care Team (Latest Contact Info) Description 01/23/2025 2:15 PM EDT Ancillary Procedure [facility] [address] [place] [address] Encounter for implantable defibrillator reprogramming or check Social History Tobacco Use Types Packs/Day Years Used Date Smoking Tobacco: Never Smokeless Tobacco: Never Alcohol Use Standard Drinks/Week Comments Not Currently 0 (1 standard drink = 0.6 oz pur e alcohol) [place] Safety & Environment Answer Date Rec orded Fear of Current or Ex-Partner Not on file Emotionally Abused Not on file 08/05/2023 Physically Abused Not on file 08/05/2023 Sexually Abused Not on file 08/05/2023 Physically or Sexually Abused Not on file Comments Unknown Sex and Gender Information Value Date Recorded Sex Assigned at Female 01/12/2025 2:00 PM EDT Legal Sex Female 11:57 PM EDT Gender Identity Female 01/12/2025 2:00 PM EDT Sexual Orientation Heterosexual or Straight 06/2024 2:00 PM EDT documented as of this encounter Plan of Treatment Not on file documented as of this encounter Visit Diagnoses Diagnosis Encounter for implantable defibrillator reprogramming or check Fitting and adjustment of automatic implantable cardiac defibrillator documented in this encounter Care Teams Guillotine Operator Relationship Specialty Start Date End Date Ganesh [place] MD [address] [facility] [address] [address] PCP - General 07/08/22 documented as of this encounter
--- OUTSIDE RECORDS SUMMARY | 2025-01-23 14:43 | XMS_ITS | Clinical Summary ---
Author Organization [facility] Address [address] [place] [address] Care Team Providers Care Ski Lift Mechanic Name Role Phone Ganesh Samuel MD Primary Care Provider [phone] Allergies Active Allergy Reactions Criticality Noted Date Comments Adhesive Tape (Rosins) Rash 09/28/2014 Rosuvastatin Other: See Comments 04/08/2015 Myalgia Medications HYDROcodone-acet aminophen (NORCO) 5-325 mg per tablet Take 1 tablet by mouth as needed. Active Mullin-3 Fatty Acids-Vitamin E (FISH OIL) 1,000 mg cap Take 4 capsules by mouth once daily. Active NITROGLYCERIN (NITRO-TIME ORAL) Take 0.4 mg by mouth as needed. Active isosorbide mononitrate ER (IMDUR) 60 mg 24 hr tablet Take 60 mg by mouth once daily. Active ACETAMINOPHEN/DI PHENHYDRAMINE (TYLENOL PM ORAL) Take by mouth daily at bedtime. Active aspirin, enteric coated (ECOTRIN LOW STRENGTH) 81 mg EC tablet Take 1 tablet by mouth once daily. 0 5 Active lisinopril-hydro chlorothiazide (PRINZIDE, ZESTORETIC) 20-25 mg per tablet Take 1 tablet by mouth once daily. 90 tablet 3 5 Active amLODIPine (NORVASC) 10 mg tablet Take 1 tablet by mouth once daily. 90 tablet 3 5 Active atorvastatin (LIPITOR) 20 mg tablet Take 1 tablet by mouth once daily. 90 tablet 3 5 Active cephALEXin (KEFLEX) 500 mg capsule 9 Active hydrOXYzine pamoate (VISTARIL) 25 mg capsule 8 Active mupirocin (BACTROBAN) 2 % ointment 9 Active Omeprazole 40 mg capsule 8 Active temazepam (RESTORIL) 15 mg cap 9 Active metoprolol succinate ER (TOPROL XL) 25 mg 24 hr tablet Take 25 mg by mouth once daily. Active docusate sodium (COLACE) 100 mg capsule Take 100 mg by mouth twice daily. Active pregabalin (LYRICA) 50 mg capsule Take 50 mg by mouth three times daily. Active ondansetron (ZOFRAN) 4 mg tablet Take 4 mg by mouth every 8 hours as needed. 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 Paroxysmal atrial fibrillation 12/31/2014 Hypothyroidism 12/31/2014 Hypertension 12/31/2014 Other and unspecified hyperlipidemia 12/31/2014 CAD (coronary artery disease) 11/02/2014 Bradycardia 11/02/2014 Family History Medical History Relation Comments Heart Mother Relation Status Comments Father Mother Social History Tobacco Use Types Packs/Day Years Used Date Smoking Tobacco: Never Smokeless Tobacco: Never Alcohol Use Standard Drinks/Week Comments Yes 0 (1 standard drink = 0.6 oz pur e alcohol) wine 1-2 x monthly Area Deprivation Index Answer Date Tee rded National Score (1-100), lower number is lower ri sk Not on file 05/20/2020 State Score (1-10), lower number is lower risk N ot on file 05/20/2020 Data from: https://www.neighborhoodatlas.medicine.[facility].edu/. Last address used for calculation Not on file 05/20/2020 Comments No Sex and Gender Information Value Date Recorded Sex Assigned at Not on file Legal Sex Female 8:45 AM EST Gender Identity Not on file Sexual Orientation Not on file Occupation Industry Job Start Date Job End Date Retired Not on file Not on file Not on file Last Filed Vital Signs Vital Sign Reading Time Taken Comments Blood Pressure 96/45 09/22/2018 11:29 AM EDT Pulse 63 09/22/2018 11:29 AM EDT Temperature 36.7 C (98 F) 04/08/2015 9:54 AM EDT Respiratory Rate 18 09/22/2018 11:29 AM EDT Oxygen Saturation 99% 09/22/2018 11:29 AM EDT Inhaled Oxygen Concentration - - Weight 71.2 kg (157 lb) 04/08/2015 9:54 AM EDT Height 157.5 cm (5' 2 ) 04/08/2015 9:54 AM EDT Body Mass Index 28.72 04/08/2015 9:54 AM EDT Plan of Treatment Health Maintenance Due Date Last Done Comments Anxiety Screening 1958 Depression Screening 1958 DTaP,Tdap,Td Vaccine (1 - Tdap) 1959 Pneumococcal Vaccine: 50+ (1 of 1 - PCV) 1990 Shingrix Vaccine (1 of 2) 1990 Bone Density Screening 2005 RSV Vaccine (1 - 1-dose 75+ series) 2015 Diabetes Screening 09/22/2021 09/22/2018, 0 09/16/2018, 09/06/2018, Additional history exists Advance Directive Discussion 06/14/2024 Influenza Vaccine (#1) 2025 Colorectal Cancer Screening Discontinued Fecal Occult Blood Discontinued 09/15/2018, 09/15/2018 CT Colonography Discontinued Cologuard (FIT-DNA) Discontinued Colonoscopy Discontinued Sigmoidoscopy Discontinued Procedures Procedure Name Priority Date/Time Associated Diagnosis Comments BASIC METABOLIC PANEL Routine 09/22/2018 12:04 PM EDT MRSA infection Renal insufficiency Anemia due to other cause, not classified Thrombocytopenia (HCC) Hypothyroidism, unspecified type from Last 3 Months or Most Recently Relevant to Health Maintenance Results * (ABNORMAL) BASIC METABOLIC PNL (09/22/2018 12:04 PM EDT) Glucose 117(H) 74 - 99 mg/dL 09/23/2018 11:07 AM EDT [facility] Comment: The [place] Diabetes Association (ADA) provides guidance for cutoff values for fasting glucose and random glucose. The ADA defines fasting as no caloric intake for at least 8 hours. Fasting plasma glucose results between 100 to 125 mg/dL indicate increased risk for diabetes (prediabetes). Fasting plasma glucose results greater than or equal to 126 mg/dL meet the criteria for diagnosis of diabetes. In the absence of unequivocal hyperglycemia, results should be confirmed by repeat testing. In a patient with classic symptoms of hyperglycemia or hyperglycemic crisis, random plasma glucose results greater than or equal to 200 mg/dL meet the criteria for diagnosis of diabetes. Reference: Standards of Medical Care in Diabetes 2016, [place] Diabetes Association. Diabetes Care. 2016.39(Suppl 1). BUN 73(H) 7 - 21 mg/dL 09/23/2018 11:07 AM [facility] Creatinine 4.50(H) 0.58 - 0.96 mg/dL 09/23/2018 11:07 AM [facility] Sodium 130(L) 136 - 144 mmol/L 09/23/2018 11:07 AM [facility] Potassium 5.4(H) 3.7 - 5.1 mmol/L 09/23/2018 11:07 AM [facility] Chloride 98 97 - 105 mmol/L 09/23/2018 11:07 AM [facility] CO2 9(L) 22 - 30 mmol/L 09/23/2018 11:07 AM [facility] Anion Gap 23(H) 9 - 18 mmol/L 09/23/2018 11:07 AM [facility] Calcium 8.6 8.5 - 10.2 mg/dL 09/23/2018 11:07 AM [facility] eGFR- 11 09/23/2018 11:07 AM [facility] eGFR-All Other Races 9 . 09/23/2018 11:07 AM [facility] Comment: eGFR (Estimated GFR) Units of measure: mL/min/1.73 meters squared eGFR is derived from the reexpressed MDRD Study equation using the following parameters: serum creatinine, age, gender and race. The creatinine assay has been calibrated to be traceable to IDMS. An eGFR <60 mL/min/1.73m2 for >3 months is consistent with chronic kidney disease. Refer to KDOQI guidelines for clinical interpretation. In patients with unstable renal function, e.g. those with acute kidney injury, the eGFR may not accurately reflect actual GFR. Blood specimen (specimen) 09/22/2018 12:04 PM EDT 09/22/2018 12:07 PM EDT us [place] [facility] Final Result [facility] [address] [place] [address] [facility] [address] [place] [address] from Last 3 Months or Most Recently Relevant to Health Maintenance Insurance MEDICARE [employer] Care Teams Ski Lift Mechanic Relationship Specialty Start Date End Date Ganesh Samule MD PCP - General Family Medicine 02/02/14
--- OUTSIDE RECORDS SUMMARY | 2025-01-23 14:43 | XMS_ITS | Encounter Summary ---
Author Organization [facility] Address [address] [facility] [place] [address] Care Team Providers Care Vp Corporate Development Name Role Phone Ganesh [place] MD Primary Care Provider [phone] Reason for Visit * Reason Comments Med Refill Encounter Details Date Type Department Care Team (Late st Contact Info) Description 12/16/2022 Refill [facility] Cardiology [address] [place] [address] Alyssa Abel, SENIOR AUDITOR [address] [facility] [place] [address] Essential hypertension Social History Tobacco Use Types Packs/Day Years Used Date Smoking Tobacco: Never Smokeless Tobacco: Never Alcohol Use Standard Drinks/Week Comments Not Currently 0 (1 standard drink = 0.6 oz pur e alcohol) Comments Unknown Sex and Gender Information Value Date Recorded Sex Assigned at Female 01/12/2025 2:00 PM EDT Legal Sex Female 11:57 PM EDT Gender Identity Female 01/12/2025 2:00 PM EDT Sexual Orientation Heterosexual or Straight 06/2024 2:00 PM EDT COVID-19 Exposure Response Date Recorded In the last 10 days, have yo u been in contact with someone who was confirmed or suspected to have Coronavirus/COVID-19? No / Unsure 11/17/2022 12:33 PM EDT documented as of this encounter Plan of Treatment Not on file documented as of this encounter Visit Diagnoses Diagnosis Essential hypertension Unspecified essential hypertension documented in this encounter Care Teams Vp Corporate Development Relationship Specialty Start Date End Date Ganesh [place] MD [address] [facility] [address] [address] PCP - General 07/08/22 documented as of this encounter
--- OUTSIDE RECORDS SUMMARY | 2025-01-23 14:43 | XMS_ITS | Encounter Summary ---
Author Organization The [facility] Address [address] [place] [address] Care Team Providers Care Metallurgical Engineering Technician Name Role Phone Ganesh [place] MD Primary Care Provider [phone] Reason for Visit * Reason Comments Med Refill Encounter Details Date Type Department Care Team ([facility] st Contact Info) Description 12/16/2022 Refill [facility] Heart at [facility] [address] [place] [address] Alexandria Santos MD [address] [facility] [address] [facility] [place] [address] Essential hypertension Social History Tobacco Use Types [...] hypertension documented in this encounter Care Teams Metallurgical Engineering Technician Relationship Specialty Start Date End Date Ganesh [place] MD [address] [facility] [address] [address] PCP - General 07/08/22 documented as of this encounter
--- OUTSIDE RECORDS SUMMARY | 2025-01-23 14:43 | XMS_ITS | Patient Health Record ---
Author Organization The [facility] in [place] Address [address] [place] [address] Care Team Providers Care Recreational Sports Director Name Role Phone Lalo Faustin Primary Care Provider [phone] Allergies Allergen (clinical drug ingredient) Drug/Non Drug Allergy documented on EMR Reaction Allergy Type Onset Date Status paper tape (uncoded) blisters Allergy Active amitriptyline Amitriptyline hallucinations Drug Allergy Active ciprofloxacin Ciprofloxacin mental status changes Drug Allergy Active Results Component Value Reference Range Notes CBC AUTO DIFF Reviewed date:08/09/2024 08:05:07 PM Interpretation: Performing Lab: Notes/Report: [facility] , White Blood Count 17.7 4.0-11.0 10 3/uL Red Blood Count 4.34 4.20-5.40 10 6/uL Hemoglobin 15.2 12.0-16.0 g/dL Hematocrit 45.2 36.0-48.0 % Mean Corpuscular Volume 104.1 81.0-99.0 fL Mean Corpuscular Hemoglobin 35.0 26.7-34.0 pg Mean Corpuscular HGB Conc 33.6 29.9-35.2 g/dL Red Cell Distribution Width 13.2 11.0-15.0 % Platelet Count 304 150-450 10 3/uL Mean Platelet Volume 9.2 9.5-13.5 fL Neutrophils Percent Auto 72.6 43.0-75.0 % Lymphocytes Percent Auto 18.8 20.5-60.0 % Monocytes Percent Auto 6.3 1.7-12.0 % Eosinophils Percent Auto 0.7 0.9-7.0 % Basophils Percent Auto 0.4 0.2-2.0 % Immature Granulocytes Pct Auto 1.2 0.0-0.5 % Neutrophils Absolute Auto 12.9 1.4-6.5 10 3/uL Lymphocytes Absolute Auto 3.3 1.2-3.8 10 3/uL Monocytes Absolute Auto 1.1 0.3-0.8 10 3/uL Eosinophils Absolute Auto 0.1 0.0-0.7 10 3/uL Basophils Absolute Auto 0.1 0.0-0.1 10 3/uL Immature Granulocytes Abs Auto 0.21 0.00-0.03 10 3/uL Performing Lab: see note ML - [facility] LB BNP Reviewed date:07/13/2024 07:59:10 PM Interpretation: Performing Lab: Notes/Report: [facility] , NT Pro B Type Natriuretic Pept 1057.0 <=1800.0 pg/mL Performing Lab: see note - [facility] LB CBC AUTO DIFF Reviewed date:07/13/2024 07:59:10 PM Interpretation: Performing Lab: Notes/Report: [facility] , White Blood Count 23.2 4.0-11.0 10 3/uL Red Blood Count 3.98 4.20-5.40 10 6/uL Hemoglobin 13.9 12.0-16.0 g/dL Hematocrit 41.6 36.0-48.0 % Mean Corpuscular Volume 104.5 81.0-99.0 fL Mean Corpuscular Hemoglobin 34.9 26.7-34.0 pg Mean Corpuscular HGB Conc 33.4 29.9-35.2 g/dL Red Cell Distribution Width 13.0 11.0-15.0 % Platelet Count 294 150-450 10 3/uL Mean Platelet Volume 9.2 9.5-13.5 fL Neutrophils Percent Auto 82.2 43.0-75.0 % Lymphocytes Percent Auto 10.7 20.5-60.0 % Monocytes Percent Auto 5.2 1.7-12.0 % Eosinophils Percent Auto 0.7 0.9-7.0 % Basophils Percent Auto 0.3 0.2-2.0 % Immature Granulocytes Pct Auto 0.9 0.0-0.5 % Neutrophils Absolute Auto 19.1 1.4-6.5 10 3/uL Lymphocytes Absolute Auto 2.5 1.2-3.8 10 3/uL Monocytes Absolute Auto 1.2 0.3-0.8 10 3/uL Eosinophils Absolute Auto 0.2 0.0-0.7 10 3/uL Basophils Absolute Auto 0.1 0.0-0.1 10 3/uL Immature Granulocytes Abs Auto 0.22 0.00-0.03 10 3/uL Performing Lab: see note ML - [facility] LB LACTATE or LACTIC ACID Reviewed date:07/13/2024 07:59:10 PM Interpretation: Performing Lab: Notes/Report: [facility] , Lactate/Lactic Acid 1.8 0.4-2.0 mmol/L Performing Lab: see note ML - [facility] LB PROF 14(COMP METB) Reviewed date:07/13/2024 07:59:10 PM Interpretation: Performing Lab: Notes/Report: [facility] , Sodium 136 136-145 mmol/L Potassium 4.8 3.5-5.1 mmol/L Chloride 99 98-107 mmol/L Carbon Dioxide 23.6 21.0-32.0 mmol/L Anion Gap 18.2 Glucose 110 74-106 mg/dL Blood Urea Nitrogen 18.0 7.0-18.0 mg/dL Creatinine 1.06 0.55-1.02 mg/dL Estimated GFR ( Rose 60 >=60 mL/min/1.73m 2 Estimated GFR (Non- Jimena 50 >=60 mL/min/1.73m 2 BUN Creatinine Ratio 17.0 Calcium 9.1 8.5-10.1 mg/dL Bilirubin Total 0.6 0.2-1.0 mg/dL Aspartate Amino Transferase 39 15-37 U/L Alanine Aminotransferase 30 14-59 U/L Alkaline Phosphatase 77 46-116 U/L Total Protein 7.6 6.4-8.2 g/dL Albumin Level 3.2 3.4-5.0 g/dL Globulin 4.4 Albumin Globulin Ratio 0.7 Performing Lab: see note ML - [facility] LB Prothrombin Time INR Reviewed date:07/13/2024 07:59:10 PM Interpretation: Performing Lab: Notes/Report: [facility] , Prothrombin Time 11.2 9.0-11.6 sec INR 1.06 DESIRED INR: 2.0-3.0 CONDITIONS NOT LISTED BELOW 2.5-3.5 FOR PROSTHETIC HEART VALVE REPLACEMENT 2.5-3.5 RECURRENT THROMBOSIS Performing Lab: see note - [facility] Troponin I High Sensitivity Reviewed date:07/13/2024 07:59:10 PM Interpretation: Performing Lab: Notes/Report: [facility] , Troponin I High Sensitivity 9.5 4.0-51.3 pg/mL CUT-OFF POINTS HAVE BEEN ESTABLISHED BASED ON THE FOURTH UNIVERSAL DEFINITION OF MYOCARDIAL INFARCTION. THE UPPER REFERENCE LIMIT (URL) OF TROPONIN, DEFINED THE 99TH PERCENTILE OF cTnI DISTRIBUTION IN A REFERENCE POPULATION, HAS BEEN CONFIRMED THE DECISION THRESHOLD FOR MS DIAGNOSIS. 99TH PERCENTILE = 51.4 PG/ML NOTE: HIGH-SENSITIVITY TROPONIN ASSAY IS NOT INTENDED TO BE USED IN ISOLATION BUT SHOULD BE INTERPRETED IN CONJUNCTION WITH OTHER DIAGNOSTIC AND CLINICAL INFORMATION. Performing Lab: see note [facility] Venous Blood Gas Reviewed date:07/13/2024 07:59:10 PM Interpretation: Performing Lab: Notes/Report: [facility] , pH VBG 7.467 7.330-7.430 PCO2 VBG 31.5 40.0-52.0 mmHg Performing Lab: see note [facility] Urine Culture, Routine Reviewed date:07/15/2024 04:09:24 PM Interpretation: Performing Lab: Notes/Report: [facility] , Urine Culture, Routine See Below For Report Urine Culture, Routine Urine Culture, Routine Greater than 2 or ganisms recovered, none predominant. Please submit Urine Culture, Routine Urine Culture, Routine another sample if clinically indicated. Urine Culture, Routine Urine Culture, Routine 25,000-50,000 col eliel forming units per mL Urine Culture, Routine Urine Culture, Routine Performed at: [facility], Routine Urine Culture, Routine [address] [place], [place] [id number] Urine Culture, Routine Urine Culture, Routine Holter Scanning Technician: Moustapha Rasheed PhD, Phone: [phone] Urine Culture, Routine Performing Lab: see note - [facility] LB SEE REPORT - Candy Department Manager Id information not found for OBX-specific email producer legend UA Micro, reflex to culture Reviewed date:07/13/2024 07:59:10 PM Interpretation: Performing Lab: Notes/Report: [facility] , Color Urine YELLOW YELLOW Clarity Urine CLEAR CLEAR Specific [place] Urine 1.010 1.005-1.025 pH Urine 6.0 5.0-9.0 Protein Urine NEGATIVE NEG/TRACE mg/dL Glucose Urine UA NEGATIVE NEGATIVE mg/dL Bilirubin Urine NEGATIVE NEGATIVE Ketones Urine NEGATIVE NEGATIVE mg/dL Blood Urine TRACE-I NEGATIVE Nitrite Urine NEGATIVE NEGATIVE Urobilinogen Urine 0.2 0.2-1.0 EU/dL Leukocyte Esterase Urine SMALL NEGATIVE WBC Urine 5-10 NONE SEEN #/HPF RBC Urine 0-2 0-2 #/HPF Bacteria Urine SMALL NONE SEEN #/HPF Mucus Urine TRACE NONE SEEN Squamous Epithelial Cell Urine MANY NONE/RARE #/LPF Transitional Epi Cells Urine RARE NONE SEEN #/LPF Crystals Seen? None Seen None Seen #/HPF Cast Seen? SEEN NONE SEEN #/LPF Hyaline Casts Urine RARE Urine Culture Indicated YES Performing Lab: see note ML - [facility] LB BNP Reviewed date:07/15/2024 04:09:24 PM Interpretation: Performing Lab: Notes/Report: [facility] , NT Pro B Type Natriuretic Pept 899.0 <=1800.0 pg/mL Performing Lab: see note ML - [facility] LB MAGNESIUM Reviewed date:07/15/2024 04:09:24 PM Interpretation: Performing Lab: Notes/Report: [facility] , Magnesium 2.1 1.8-2.4 mg/dL Performing Lab: see note ML - [facility] LB PROF 14(COMP METB) Reviewed date:08/09/2024 08:05:07 PM Interpretation: Performing Lab: Notes/Report: [facility] , Sodium 136 136-145 mmol/L Potassium 4.3 3.5-5.1 mmol/L Chloride 102 98-107 mmol/L Carbon Dioxide 23.3 21.0-32.0 mmol/L Anion Gap 15.0 Glucose 109 74-106 mg/dL Blood Urea Nitrogen 15.0 7.0-18.0 mg/dL Creatinine 1.01 0.55-1.02 mg/dL Estimated GFR ( Rose >60 >=60 mL/min/1.73m 2 Estimated GFR (Non- Jimena 52 >=60 mL/min/1.73m 2 BUN Creatinine Ratio 14.9 Calcium 9.6 8.5-10.1 mg/dL Bilirubin Total 0.4 0.2-1.0 mg/dL Aspartate Amino Transferase 44 15-37 U/L Alanine Aminotransferase 36 14-59 U/L Alkaline Phosphatase 85 46-116 U/L Total Protein 7.9 6.4-8.2 g/dL Albumin Level 3.8 3.4-5.0 g/dL Globulin 4.1 Albumin Globulin Ratio 0.9 Performing Lab: see note ML - [facility] MM tomosynthesis screening B I Reviewed date:08/09/2024 08:05:07 PM Interpretation: Performing Lab: Notes/Report: Source Facility: [place] [address] [place] [address] Mammography Report Signed Patient: ABDIRAHMAN GOMEZ MR#: [id number] : 1940 Acct:[id number] Age/Sex: 84 / F ADM Date: 08/09/24 Loc: CARD Attending Dr: Irish Faustin M.D. Ordering Physician: Irish Faustin M.D. Results: Date of Service: 08/09/24 Follow Up: Procedure(s): MM tomosynthesis screening BI Accession Number(s): [id number] cc: Irish Faustin M.D. Patient Name: ABDIRAHMAN GOMEZ MR#: [id number] : 1940 Exam Date: 08/09/2024 Ordering Doctor: DR Irish Faustin . RADIOLOGY REPORT PROCEDURE: MM TOMOSYNTHESIS SCREENING BI COMPARISON: MM TOMOSYNTHESIS SCREENING BI, 05/10/2023. MG MAMM SCREEN 3D MILANA CAD, 10/27/2021. MG MAMM SCREEN MILANA W CAD, 11/13/2016. INDICATIONS: Screening Calculator Name NCI Breast Cancer Risk Assessment Tool 5 Year Breast Cancer Risk 1.10% Lifetime Breast Cancer Risk 1.30% Personal Breast Cancer No Personal Ovarian Cancer No Treatments None Family Cancers None LOCATION: [facility] BREAST COMPOSITION: The breasts are almost entirely fatty. FINDINGS: RIGHT BREAST: No significant suspicious finding. Benign appearing calcifications present paired LEFT BREAST: No significant suspicious finding. Benign-appearing calcifications are present. There is a pacer generator along the left chest wall. DIAGNOSTIC CATEGORY 1--NEGATIVE. NO CHANGE FROM COMPARISON ASSESSMENT. RECOMMENDATIONS: ROUTINE MAMMOGRAM AND CLINICAL EVALUATION IN 12 MONTHS. PLEASE NOTE: A NORMAL MAMMOGRAM DOES NOT EXCLUDE THE POSSIBILITY OF BREAST CANCER. A CLINICALLY SUSPICIOUS PALPABLE LUMP SHOULD BE BIOPSIED. Dictated by: Rogelio Mcclendon MD on 08/09/2024 at 16:00 Approved by: Rogelio Mcclendon MD on 08/09/2024 at 16:02 Dictated By: Rogelio Mcclendon M.D. Signed By: 08/09/24 1603 DD/ 01 TD/TT: Pantograph Watcher: [place] [address] Mammography Report Signed Patient: MAYURI GOMEZ MR#: [id number] : 1940 Acct:[id number] Age/Sex: 84 / F ADM Date: 08/09/24 Loc: CARD Attending Dr: Gee Faustin M.D. Ordering Physician: Irish Faustin M.D. Results: Date of Service: Follow Up: Procedure(s): MM tomosynthesis screening BI Accession Number(s): [id number] cc: Irish Faustin M.D. Patient Name: ABDIRAHMAN GOMEZ MR#: [id number] : 1940 Exam Date: 08/09/2024 Ordering Doctor: DR Irish Faustin . RADIOLOGY REPORT PROCEDURE: MM TOMOSYNTHESIS SCREENING BI COMPARISON: MM TOMOSYNTHESIS SCREENING BI, 05/10/2023. MG MAMM SCREEN 3D MILANA CAD, 10/27/2021. MG MAMM SCREEN MILANA W CAD, 11/13/2016. INDICATIONS: Screening Calculator Name NCI Breast Cancer Risk Assessment Tool 5 Year Breast Cancer Risk 1.10% Lifetime Breast Canc er Risk 1.30% Personal Breast Cancer No Personal Ovarian Can cer No Treatments None Family Cancers None LOCATION: [facility] BREAST COMPOSITION: The breasts are almost entirely fatty. FINDINGS: RIGHT BREAST: No significant suspicious finding. Benign appearing calcifications prese nt paired LEFT BREAST: No significant suspicious finding. Benign-appearing calcifications are present. There is a pacer generator along the left chest wall. DIAGNOSTIC CATEGORY 1--NEGATIVE. NO CHANGE FROM COMPARISON ASSESSMENT. RECOMMENDATIONS: ROUTINE MAMMOGRAM AN D CLINICAL EVALUATION IN 12 MONTHS. PLEASE NOTE: A CHONG L MAMMOGRAM DOES NOT EXCLUDE THE POSSIBILITY OF BREAST CANCER. A CLINICALLY SUSPICIOUS PALPABLE LUMP SHOULD BE BIOPSIED. Dictated by: Rogelio Mcclendon MD on 08/09/2024 at 16:00 Approved by: Rogelio Mcclendon MD on 08/09/2024 at 16:02 Dictated By: Rogelio Mcclendon M.D. Signed By: 08/09/24 1603 DD/ 1602 TD/TT: Pantograph Watcher: FREE T3 Reviewed date:09/27/2024 02:07:46 PM Interpretation: Performing Lab: Notes/Report: [facility] , Free T3 2.98 2.18-3.98 pg/mL Performing Lab: see note ML - [facility] LB GLYCOHEMOGLOBIN A1C Reviewed date:09/27/2024 01:04:02 PM Interpretation: Performing Lab: Notes/Report: [facility] , Glycohemoglobin A1C 6.0 4.5-6.2 % ADA RECOMMENDED LIMIT 4.0 - 6.0 ADA THERAPEUTIC TARGET < 7.0 ACTION SUGGESTED > 7.0 Estimated Average Glucose 126 Performing Lab: see note ML - [facility] LB LIPID PROFILE Reviewed date:09/27/2024 02:07:46 PM Interpretation: Performing Lab: Notes/Report: [facility] , Triglycerides 189 <=150 mg/dL Cholesterol 194 <=200 mg/dL HDL Cholesterol 65 40-60 mg/dL > or =60 mg/dl - LOW CARDIOVASCULAR RISK <40 mg/dl - HIGH CARDIOVASCULAR RISK LDL Cholesterol Calculated 92.0 <100 mg/dl OPTIMAL 100-129 mg/dl NEAR OR ABOVE OPTIMAL 130-159 mg/dl BORDERLINE HIGH 160-189 mg/dl HIGH >190 mg/dl VERY HIGH VLDL CHOLESTEROL 37.8 Chol HDL Ratio 3.0 3.3 - 4.4 LOW RISK 4.4 - 7.1 AVERAGE RISK 7.1 - 11.0 MODERATE RISK >11.0 HIGH RISK Performing Lab: see note ML - [facility] LB PROF 14(COMP METB) Reviewed date:09/27/2024 02:07:46 PM Interpretation: Performing Lab: Notes/Report: [facility] , Sodium 140 136-145 mmol/L Potassium 4.1 3.5-5.1 mmol/L Chloride 107 98-107 mmol/L Carbon Dioxide 24.6 21.0-32.0 mmol/L Anion Gap 12.5 Glucose 108 74-106 mg/dL Blood Urea Nitrogen 19.0 7.0-18.0 mg/dL Creatinine 1.00 0.55-1.02 mg/dL Estimated GFR ( Rose >60 >=60 mL/min/1.73m 2 Estimated GFR (Non- Jimena 53 >=60 mL/min/1.73m 2 BUN Creatinine Ratio 19.0 Calcium 9.2 8.5-10.1 mg/dL Bilirubin Total 0.4 0.2-1.0 mg/dL Aspartate Amino Transferase 35 15-37 U/L Alanine Aminotransferase 34 14-59 U/L Alkaline Phosphatase 80 46-116 U/L Total Protein 7.4 6.4-8.2 g/dL Albumin Level 3.6 3.4-5.0 g/dL Globulin 3.8 Albumin Globulin Ratio 0.9 Performing Lab: see note ML - [facility] LB T4 Reviewed date:09/27/2024 02:07:46 PM Interpretation: Performing Lab: Notes/Report: [facility] , T4 Thyroxine 10.40 4.80-13.90 ug/dL Performing Lab: see note ML - [facility] LB TSH Reviewed date:09/27/2024 02:07:46 PM Interpretation: Performing Lab: Notes/Report: [facility] , Thyroid Stimulating Hormone 2.360 0.358-3.740 uIU/mL Performing Lab: see note ML - [facility] LB CA echo doppler complete Reviewed date:08/09/2024 08:05:07 PM Interpretation: Performing Lab: Notes/Report: Source Facility: [place] [id number] Cardiology Report Signed Patient: ABDIRAHMAN GOMEZ MR#: [id number] : 1940 Acct:[id number] Age/Sex: 84 / F ADM Date: 08/09/24 Loc: CARD Attending Dr: Irish Faustin M.D. Ordering Physician: Irish Faustin M.D. Date of Service: 08/09/24 Procedure(s): CA echo doppler complete Accession Number(s): [id number] cc: Irish Faustin M.D. Patient Name: ABDIRAHMAN GOMEZ MR#: [id number] : 1940 Exam Date: 08/09/2024 Ordering Doctor: DR Irish Faustin . ECHOCARDIOGRAM REPORT PROCEDURE: CA ECHO DOPPLER COMPLETE INDICATIONS: Atrial fibrillation, CABGx4 COMPARISON: None. DESCRIPTION: COMPLETE ECHOCARDIOGRAM Real-time transthoracic echocardiography with 2D, M-mode, spectral and color flow Doppler performed. QUALITY: Technical quality was good. LEFT VENTRICLE: Normal chamber size. Normal left ventricular wall thickness. Systolic function is normal LV EF: Normal left ventricular ejection fraction, (55%). DIASTOLIC: ATRIAL SEPTUM: Visually appears intact. LEFT ATRIUM: Moderate dilatation. RIGHT ATRIUM: Moderate dilatation. RIGHT VENTRICLE: Moderate dilatation. Normal right ventricular systolic function. Pacer wire present. TRICUSPID VALVE: Normal mobility and thickness. No stenosis with moderate to severe regurgitation. Doppler studies reveal moderately (45-60) elevated right sided pressures. RVSP 48 mmHg MITRAL VALVE: Normal mobility and thickness. No evidence of mitral valve stenosis. There is no mitral annular calcification. Mild mitral regurgitation. AORTIC VALVE: Normal trileaflet appearance. Thickened aortic valve. Normal leaflet mobility. No evidence of aortic valve stenosis. Trivial aortic regurgitation. AORTIC ROOT: Normal diameter and appearance. Ascending aorta is normal in size. PULMONIC VALVE: Normal thickness and mobility. No stenosis. Trivial regurgitation. PERICARDIUM: No evidence of pericardial effusion. IVC: Collapses with inspirations. IVC is normal in size. PLEURA: CONCLUSION: 1. Normal left ventricular size and systolic function. LVEF is 55%. 2. Moderately dilated right ventricle with normal systolic function. 3. Moderate biatrial dilatation. 4. Moderate to severe tricuspid regurgitation. 5. Mild mitral regurgitation. 6. Moderately elevated right-sided pressures. RVSP is 48 mmHg. Adult Echocardiography Procedure Report Left Ventricle LVEDD (3.7 - 5.6 cm): 3.61 cm LVESD (2.2 - 4.0 cm): 2.80 cm LVIVS thickness (0.6 - 1.2 cm): 0.86 cm LVPW thickness (0.5 - 1.0 cm): 0.86 cm e': 0.08 m/s E - e': 11.54 LVOT Max Gradient: 0.76 mm[Hg] LVOT Area (cm2): 0.44 m/s Peak Velocity (LVOT): 0.44 m/s Mean Velocity (LVOT): 0.27 m/s LVOT Diameter 2.06 cm Left Atrium LA Volume Index (2D A2C): 43.71 ml/m2 Left Atrium Systolic Dimension: 3.39 cm Mitral Valve MV E to A Ratio: 5.72 Mitral Valve A-Wave Peak Velocity: 0.17 m/s Mitral Valve E-Wave Peak Velocity: 0.95 m/s Right Ventricle Aorta AO Root Diam: 2.56 cm Ascending Ao Diam: 2.47 cm Aortic Valve AoV Area (Peak Luis): 1.70 cm2, 1.70 cm2 AoV Area (VTI): 1.57 cm2, 1.57 cm2 Peak Velocity(Antegrade Flow): 0.85 m/s Peak Gradient(Antegrade Flow): 2.90 mm[Hg] Mean Velocity(Antegrade Flow): 0.57 m/s Mean Gradient(Antegrade Flow): 1.44 mm[Hg] Velocity Time Integral: 15.26 cm Tricuspid Valve Peak Velocity (Regurgitant Flow): 2.72 m/s, 2.82 m/s, 3.35 m/s Pulmonic Valve Peak Gradient: 2.25 mm[Hg], 2.02 mm[Hg] Right Atrium Right Atrium Systolic Pressure: 63.21 ml, 63.21 ml Dictated by: Erik Lopez M.D. on 08/09/2024 at 17:14 Approved by: Erik Lopez M.D. on 08/09/2024 at 17:18 Dictated By: ERIK LOPEZ Signed By: 08/09/241718 DD/ 17 TD/TT: Pantograph Watcher: [place] [address] Cardiology Report Signed Patient: MAYURI GOMEZ MR#: [id number] : 1940 Acct:[id number] Age/Sex: 84 / F ADM Date: 08/09/24 Loc: CARD Attending Dr: Gee Faustin M.D. Ordering Physician: Irish Faustin M.D. Date of Service: 08/09/24 Procedure(s): CA ech o doppler complete Accession Number(s): [id number] cc: Irish Faustin M.D. Patient Name: ABDIRAHMAN GOMEZ MR#: [id number] : 1940 Exam Date: 08/09/2024 Ordering Doctor: DR Irish Faustin . ECHOCARDIOGRAM REPORT PROCEDURE: CA ECHO DOPPLER COMPLETE INDICATIONS: Atrial fibrillation, CABGx4 COMPARISON: None. DESCRIPTION: COMPLET E ECHOCARDIOGRAM Real-time transthoracic echocardiography wit h 2D, M-mode, spectral and color flow Doppler performed. QUALITY: Technical quality was good. LEFT VENTRICLE: Norm al chamber size. Normal left ventricular wall thickness. Systolic function is normal LV EF: Normal left ventricular ejection fraction, (55%). DIASTOLIC: ATRIAL SEPTUM: Visua lly appears intact. LEFT ATRIUM: Moderat e dilatation. RIGHT ATRIUM: Modera te dilatation. RIGHT VENTRICLE: Mod erate dilatation. Normal right ventricular systolic function. Pacer wire present. TRICUSPID VALVE: Nor mal mobility and thickness. No stenosis with moderate to severe regurgitat ion. Doppler studies reveal moderately (45-60) elevated right sided pressure s. RVSP 48 mmHg MITRAL VALVE: Normal mobility and thickness. No evidence of mitral valve stenosis. There is n o mitral annular calcification. Mild mitral regurgitation. AORTIC VALVE: Normal trileaflet appearance. Thickened aortic valve. Normal leaflet mobil ity. No evidence of aortic valve stenosis. Trivial aortic regurgitation. AORTIC ROOT: Normal diameter and appearance. Ascending aorta is normal in size. PULMONIC VALVE: Norm al thickness and mobility. No stenosis. Trivial regurgitation. PERICARDIUM: No evid ence of pericardial effusion. IVC: Collapses with inspirations. IVC is normal in size. PLEURA: CONCLUSION: 1. Normal left ventricular size and systolic function. LVEF is 55%. 2. Moderately dilate d right ventricle with normal systolic function. 3. Moderate biatrial dilatation. 4. Moderate to sever e tricuspid regurgitation. 5. Mild mitral regurgitation. 6. Moderately elevat ed right-sided pressures. RVSP is 48 mmHg. Adult Echocardiograp hy Procedure Report Left Ventricle LVEDD (3.7 - 5.6 cm) : 3.61 cm LVESD (2.2 - 4.0 cm) : 2.80 cm LVIVS thickness (0.6 - 1.2 cm): 0.86 cm LVPW thickness (0.5 - 1.0 cm): 0.86 cm e': 0.08 m/s E - e': 11.54 LVOT Max Gradient: 0 .76 mm[Hg] LVOT Area (cm2): 0.44 m/s Peak Velocity (LVOT) : 0.44 m/s Mean Velocity (LVOT) : 0.27 m/s LVOT Diameter 2.06 cm Left Atrium LA Volume Index (2D A2C): 43.71 ml/m2 Left Atrium Systolic Dimension: 3.39 cm Mitral Valve MV E to A Ratio: 5.72 Mitral Valve A-Wave Peak Velocity: 0.17 m/s Mitral Valve E-Wave Peak Velocity: 0.95 m/s Right Ventricle Aorta AO Root Diam: 2.56 cm Ascending Ao Diam: 2 .47 cm Aortic Valve AoV Area (Peak Luis): 1.70 cm2, 1.70 cm2 AoV Area (VTI): 1.57 cm2, 1.57 cm2 Peak Velocity(Antegr renetta Flow): 0.85 m/s Peak Gradient(Antegr renetta Flow): 2.90 mm[Hg] Mean Velocity(Antegr renetta Flow): 0.57 m/s Mean Gradient(Antegr renetta Flow): 1.44 mm[Hg] Velocity Time Integr al: 15.26 cm Tricuspid Valve Peak Velocity (Regurgitant Flow): 2.72 m/s, 2.82 m/s, 3.35 m/s Pulmonic Valve Peak Gradient: 2.25 mm[Hg], 2.02 mm[Hg] Right Atrium Right Atrium Systoli c Pressure: 63.21 ml, 63.21 ml Dictated by: Erik Lopez M.D. on 08/09/2024 at 17:14 Approved by: Erik Lopez M.D. on 08/09/2024 at 17:18 Dictated By: ERIK LOPEZ Signed By: 08/09/241718 DD/ 17 TD/TT: Pantograph Watcher: PROF TARAH Fritz (JESS SWAN) Reviewed date:07/15/2024 04:09:24 PM Interpretation: Performing Lab: Notes/Report: [facility] , Sodium 137 136-145 mmol/L Potassium 3.9 3.5-5.1 mmol/L Chloride 104 98-107 mmol/L Carbon Dioxide 22.7 21.0-32.0 mmol/L Anion Gap 14.2 Glucose 110 74-106 mg/dL Blood Urea Nitrogen 18.0 7.0-18.0 mg/dL Creatinine 0.81 0.55-1.02 mg/dL Estimated GFR ( Rose >60 >=60 mL/min/1.73m 2 Estimated GFR (Non- Jimena >60 >=60 mL/min/1.73m 2 BUN Creatinine Ratio 22.2 Calcium 8.8 8.5-10.1 mg/dL Performing Lab: see note ML - [facility] LB LIVER PROFILE Reviewed date:07/15/2024 04:09:24 PM Interpretation: Performing Lab: Notes/Report: [facility] , Bilirubin Total 0.4 0.2-1.0 mg/dL Bilirubin Direct 0.1 0.0-0.2 mg/dL Aspartate Amino Transferase 22 15-37 U/L Alanine Aminotransferase 19 14-59 U/L Alkaline Phosphatase 67 46-116 U/L Total Protein 6.6 6.4-8.2 g/dL Albumin Level 2.7 3.4-5.0 g/dL Globulin 3.9 Albumin Globulin Ratio 0.7 Performing Lab: see note ML - [facility] LB CBC AUTO DIFF Reviewed date:07/15/2024 04:09:24 PM Interpretation: Performing Lab: Notes/Report: [facility] , White Blood Count 11.1 4.0-11.0 10 3/uL Red Blood Count 3.47 4.20-5.40 10 6/uL Hemoglobin 12.0 12.0-16.0 g/dL Hematocrit 36.1 36.0-48.0 % Mean Corpuscular Volume 104.0 81.0-99.0 fL Mean Corpuscular Hemoglobin 34.6 26.7-34.0 pg Mean Corpuscular HGB Conc 33.2 29.9-35.2 g/dL Red Cell Distribution Width 13.2 11.0-15.0 % Platelet Count 244 150-450 10 3/uL Mean Platelet Volume 9.2 9.5-13.5 fL Neutrophils Percent Auto 64.6 43.0-75.0 % Lymphocytes Percent Auto 24.6 20.5-60.0 % Monocytes Percent Auto 7.9 1.7-12.0 % Eosinophils Percent Auto 1.6 0.9-7.0 % Basophils Percent Auto 0.4 0.2-2.0 % Immature Granulocytes Pct Auto 0.9 0.0-0.5 % Neutrophils Absolute Auto 7.2 1.4-6.5 10 3/uL Lymphocytes Absolute Auto 2.7 1.2-3.8 10 3/uL Monocytes Absolute Auto 0.9 0.3-0.8 10 3/uL Eosinophils Absolute Auto 0.2 0.0-0.7 10 3/uL Basophils Absolute Auto 0.0 0.0-0.1 10 3/uL Immature Granulocytes Abs Auto 0.10 0.00-0.03 10 3/uL Performing Lab: see note ML - [facility] LB ECG 12 lead Reviewed date:07/17/2024 08:46:19 PM Interpretation: Performing Lab: Notes/Report: Source Facility: [facility] [place] [address] [place] [address] Electrocardiograph Report Signed Patient: ABDIRAHMAN GOMEZ MR#: [id number] : 1940 Acct:[id number] Age/Sex: 83 / F ADM Date: 07/13/24 Loc: MS 231-[address]: Irish Faustin M.D. 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 Signed By: 07/17/242042 DD/ 1350 TD/TT: Pantograph Watcher: [place] [address] Electrocardiograph Report Signed Patient: MAYURI GOMEZ MR#: [id number] : 1940 Acct:[id number] Age/Sex: 83 / F ADM Date: 07/13/24 Loc: MS 231-[address]: Gee Faustin M.D. 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 Signed By: 07/17/242042 DD/ 1350 TD/TT: Pantograph Watcher: SARS-CoV-2 Ag* Reviewed date:07/13/2024 07:59:10 PM Interpretation: Performing Lab: Notes/Report: [facility] , SARS-CoV-2 Ag NEGATIVE NEGATIVE This test has not been FDA cleared or approved, but has been authorized by the FDA under an Emergency Use Authorization (EUA) for use by authorized laboratories certified under CLIA that meet the requirements to perform moderate or high complexity testing. This test has been authorized only for the detection of proteins from SARS-CoV-2, not for any other viruses or pathogens. The emergency use of this test is authorized for the duration of the declaration that circumstances exist justifying the authorization of emergency use of in vitro diagnostic tests for detection and/or diagnosis of Covid-19 under section 564(b)(1) of the Act, 21 U.S.C. 360bbb-3(b)(1), unless the declaration is terminated or authorization is revoked sooner. Performing Lab: see note ML - [facility] LB Blood Culture 2 Reviewed date:07/19/2024 04:50:25 PM Interpretation: Performing Lab: Notes/Report: [facility] , Blood Culture 2 See Below For Report Blood Culture 2 NG5D NO GROWTH AT 5 DAYS. Performing Lab: see note ML - [facility] LB Blood Culture 1 Reviewed date:07/19/2024 04:50:25 PM Interpretation: Performing Lab: Notes/Report: [facility] , Blood Culture 1 See Below For Report Blood Culture 1 NG5D NO GROWTH AT 5 DAYS. Performing Lab: see note ML - [facility] LB INFLUENZA A AND B AG Reviewed date:07/13/2024 07:59:10 PM Interpretation: Performing Lab: Notes/Report: [facility] , Influenza Virus A Antigen Negative Negative for Flu A protein antigen. Infection due to Flu A cannot be ruled out. Flu A antigen in the sample may be below the detection limit of the test. Influenza Virus B Antigen Negative Negative for Flu B protein antigen. Infection due to Flu B cannot be ruled out. Flu B antigen in the sample may be below the detection limit of the test. Performing Lab: see note ML - [facility] LB CBC AUTO DIFF Reviewed date:09/27/2024 01:04:02 PM Interpretation: Performing Lab: Notes/Report: [facility] , White Blood Count 15.9 4.0-11.0 10 3/uL Red Blood Count 4.21 4.20-5.40 10 6/uL Hemoglobin 14.5 12.0-16.0 g/dL Hematocrit 42.9 36.0-48.0 % Mean Corpuscular Volume 101.9 81.0-99.0 fL Mean Corpuscular Hemoglobin 34.4 26.7-34.0 pg Mean Corpuscular HGB Conc 33.8 29.9-35.2 g/dL Red Cell Distribution Width 13.8 11.0-15.0 % Platelet Count 290 150-450 10 3/uL Mean Platelet Volume 9.2 9.5-13.5 fL Neutrophils Percent Auto 68.4 43.0-75.0 % Lymphocytes Percent Auto 20.7 20.5-60.0 % Monocytes Percent Auto 7.3 1.7-12.0 % Eosinophils Percent Auto 0.4 0.9-7.0 % Basophils Percent Auto 0.6 0.2-2.0 % Immature Granulocytes Pct Auto 2.6 0.0-0.5 % Neutrophils Absolute Auto 10.9 1.4-6.5 10 3/uL Lymphocytes Absolute Auto 3.3 1.2-3.8 10 3/uL Monocytes Absolute Auto 1.2 0.3-0.8 10 3/uL Eosinophils Absolute Auto 0.1 0.0-0.7 10 3/uL Basophils Absolute Auto 0.1 0.0-0.1 10 3/uL Immature Granulocytes Abs Auto 0.41 0.00-0.03 10 3/uL Performing Lab: see note ML - [facility] LB XR chest 2V Reviewed date:08/09/2024 08:05:07 PM Interpretation: Performing Lab: Notes/Report: Source Facility: [place] [address] XRay Report Signed Patient: ABDIRAHMAN GOMEZ MR#: [id number] : 1940 Acct:[id number] Age/Sex: 84 / F ADM Date: 08/09/24 Loc: CARD Attending Dr: Irish Faustin M.D. Ordering Physician: Irish Faustin M.D. Date of Service: 08/09/24 Procedure(s): XR chest 2V Accession Number(s): [id number] cc: Irish Faustin M.D. [place] [address] Patient Name: ABDIRAHMAN GOMEZ MRN: [id number] date: 1940 Sex: F Assigned Patient Location: CARD Current Patient Location: CARD Accession/Order Number: [id number] Exam Date: 08/09/2024 14:27 Report Date: 08/09/2024 14:32 At the request of: IRISH FAUSTIN MD Procedure: XR chest 2V PA AND LATERAL CHEST: CLINICAL HISTORY: Right anterior chest pain. Follow-up infiltrates seen on CT COMPARISON: 07/13/2024 CT and chest x-ray 11/04/2023 There are median sternotomy wires and a left-sided pacemaker. The lower lobe infiltrative changes seen at the time of the comparison CT are no longer identified. There is no developing consolidation, effusion or pneumothorax. The cardiac, hilar and mediastinal silhouettes are similar. There is no vascular congestion. The visualized bony thorax is intact. XR/XR chest 2V IMPRESSION: NO ACUTE CARDIOPULMONARY ABNORMALITY. Impression dictated by: Ngozi Desai M.D.08/09/2024 2:32 PM Dictation Location: [place] [address] Electronically authenticated by: [id number] Y Date: 08/09/2024 14:32 Dictated By: Ngozi Desai M.D. Signed By: 08/09/24 1435 DD/ 1432 TD/TT: Pantograph Watcher: [place] [address] XRay Report Signed Patient: MAYURI GOMEZ MR#: [id number] : 1940 Acct:[id number] Age/Sex: 84 / F ADM Date: 08/09/24 Loc: CARD Attending Dr: Gee Faustin M.D. Ordering Physician: Irish Faustin M.D. Date of Service: 08/09/24 Procedure(s): XR chest 2V Accession Number(s): [id number] cc: Irish Faustin M.D. [address] [address] Patient Name: ABDIRAHMAN GOMEZ MRN: [id number] date: 1940 Sex: F Assigned Patient Location: [facility] Current Patient Loca tion: CARD Accession/Order Numb er: [id number] Exam Date: 08/09/2024 14:27 Report Date: 08/09/2024 14:32 At the request of: IRISH FAUSTIN MD Procedure: XR chest 2V PA AND LATERAL CHEST: CLINICAL HISTORY: Ri ght anterior chest pain. Follow-up infiltrates seen on CT COMPARISON: CT and chest x-ray 11/04/2023 There are median sternotomy wires and a left-sided pacemaker. The lower lobe infiltrative changes seen at the time of the comparison CT are no longer identified. There is no developing consolidation, effusion or pneumothorax. The cardiac, hilar a nd mediastinal silhouettes are similar. There is no vascular congestion. The visualized bony thorax is intact. X R/XR chest 2V IMPRESSION: NO ACUTE CARDIOPULMO NARY ABNORMALITY. Impression dictated by: Ngozi Desai M.D.08/09/2024 2:32 PM Dictation Location: [place] [address] Electronically authenticated by: [id number] Y Date: 08/09/2024 14:32 Dictated By: Ngozi Desai M.D. Signed By: 08/09/24 1435 DD/ 143 TD/TT: Pantograph Watcher: Reason For Referral No Information Medications Medication SIG (Take, Route, Frequency, Duration) Notes Start Date End Date Status LORazepam 1 MG TAKE A HALF TO 1 TAB LET BY MOUTH 2 TIMES A DAY NEEDED for 30 01/09/2025 Active Carvedilol 12.5 MG 1 tablet with food O rally Twice a day Active Valsartan 40 MG 1 tablet Orally Once a day for 90 days Active Biotin Extra Strength Active Transderm-Scop 1 MG/3DAYS 1 patch to ski n behind the ear as needed Transdermal Q 3 days for 30 days 01/19/2024 Active Azithromycin 250 MG Take 2 tablets Orall y one day one; take 1 tablet daily for four days for 5 09/27/2024 Active tiZANidine HCl 4 MG 2 tablets Orally Q H S for 30 days 10/01/2022 Active Aspirin 81 81 MG 1 tablet Orally Once a day Active Senna-Time 8.6 MG TAKE TWO TABLETS BY MOUTH TWICE A DAY for 90 Active Rosuvastatin Calcium 5 MG TAKE 1 TABLET BY MOUTH DAILY for 90 Active Furosemide 20 MG 1 tablet Orally ever y morning for 90 days Active Fish Oil 1200 MG 1 capsule Orally Onc e a day Active Eliquis 2.5 MG 1 tablet Orally Twic e a day Active Doxepin HCl 10 MG 2 capsule at bedtime Orally Once a day for 30 days Active Wheelchair Needs light weight f or transportation so can go to store adn Dr dumont 11/04/2023 Active Collagen Active Vitamin D3 125 MCG (5000 UT) 1 capsule Orally Once a day Active ClearLax PRN Active Vitamin C 500 MG as directed Orally Active Magnesium 400 MG as directed Orally o nce daily Active Klor-Con M20 20 MEQ 1 tablet with food O rally Once a day for 90 days Active Isosorbide Mononitrate ER 30 MG 1 tablet Orally every morning for 90 days Active HYDROcodone-Acetaminophen 5-325 MG 1 tablet as needed Orally BID dx M51.36 for 30 days 01/10/2025 Active amLODIPine Besylate 10 MG 1 tablet Orall y Once a day Active Pramipexole Dihydrochloride 0.5 MG TAKE ONE TABLET BY MOUTH ONCE NIGHTLY for 90 Active Omeprazole 40 MG 1 capsule 1/2 to 1 h our before morning meal Orally twice daily for 90 days Active Multivitamin - 1 tablet Orally Once a day Active Montelukast Sodium 10 MG 1 tablet Orally Once a day for 90 days Active Metamucil PRN Active Immunizations Vaccine Route Administration Date Status Comme nts Flu, Fluad (6801-1557) (73685) 65 yrs+, single-dose syringe IM Intramuscular 04/07/2023 Administered Flu, Fluad (63336) 65 yrs + High Dose Seasonal (8040-6088) Unknown 03/18/2016 Administered Flu, Fluad (10059) 65 yrs + High Dose Seasonal (0379-7710) Unknown 03/23/2017 Administered Flu, Fluad (34139) 65 yrs and older, single-dose syringe (1305-4598) Unknown 03/22/2020 Administered Flu, Fluad (84768) 65 yrs and older, single-dose syringe (7230-2251) IM Intramuscular 04/21/2024 Administered Flu, Fluad (32337) 65 yrs+, single-dose syringe (9913-6016) Unknown 04/03/2022 Administered Flu, Fluzone High-Dose (4551-0624) (64187) 65 yrs+ Unknown 03/19/2021 Administered Pneumococcal (Pneumovax 23) Unknown 04/03/2022 Administered SARS-COV-2 (COVID 19 Moderna - Booster 0.25mL) Unknown 07/23/2020 Administered SARS-COV-2 (COVID 19 Moderna - Booster 0.25mL) Unknown 08/20/2020 Administered SARS-COV-2 (COVID 19 Moderna - Booster 0.25mL) Unknown 05/14/2021 Administered SARS-COV-2 (COVID 19) bivalent 30 mcg/0.3 ml dose Unknown 05/27/2022 Administered Social History Tobacco Use: Social History Observation Description Date Details (start date - stop date) Never Smoker NA - NA Tobacco Use/Smoking Question Answer Notes Patient is a nonsmoker Alcohol Screen (Audit-C) Question Answer Notes Did you have a drink containing alcohol in the p ast year? No Points 0 Interpretation Negative AUDIT-C (Standard) Question Answer Notes Did you have a drink containing alcohol in the p ast year? 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) Active confirmed Problem Backache (985971706) Dorsalgia, unspecified (M54.9) Active confirmed Problem Palpitations (18853068) Palpitations (R00.2) Active confirmed Problem [id number] 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), and cerebral infarction without residual deficits (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) Active confirmed Problem 857105849 Presence of cardiac pacemaker (Z95.0) Active confirmed Problem Seizure (93369558) Seizure (R56.9) Active confi rmed Problem Hypertension (90484282) Hypertension (I10) Active confirmed Problem Atrial fibrillation (disorder) (06309345) Afib (I48.91) Active confirmed Problem Atrial fibrillation (76438699) AF (paroxysmal atrial fibrillation) (I48.0) Active confirmed Problem Coronary artery disease (63140777) CAD (coronary artery disease) (I25.10) Active confirmed Problem Pneumonia (434799963) Pneumonia (J18.9) Active confirmed Problem Insomnia (201435227) Insomnia (G47.00) Active c onfirmed Problem Congestive heart failure (10133927) Congestive heart failure (I50.9) Active confirmed Problem Thyroid nodule (310767883) Thyroid nodule (E04.1) Active confirmed Problem Osteoporosis (33312402) Osteoporosis (M81.0) Active confirmed Problem Tricuspid valve disorder (32848730) Moderate tricuspid regurgitation (I07.1) Active confirmed Problem Cervical disc diseas e (908260264) Cervical disc disease (M50.90) Active confirmed Problem Abnormal glucose lev el (876277981) Abnormal glucose (R73.09) Active confirmed Problem Left inguinal hernia (473747350) Left inguinal hernia (K40.90) Active confirmed Problem Leukocytosis (709583424) Leukocytosis (D72.829) Active confirmed Problem Right foot injury (479142533) Right foot injury (S99.921A) Active confirmed Problem Hyperinsulinism (93216218) Hyperinsulinism (E16.1) Active confirmed Problem Degeneration of lumb ar intervertebral disc (54062098) 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) Active confirmed Problem Essential hypertensi on (27658666) BP (high blood pressure) (I10) Active confirmed Problem Pure hypercholesterolemia (585237244) Elevated cholesterol (E78.00) Active confirmed Problem Bruise (900241879) Bruise (T14.8XXA) Active con firmed Problem Low back pain associated with a spinal disorder other than radiculopathy or spinal stenosis (M54.50) Active confirmed Vital Signs Heart Rate 76 /min 07/20/2024 Oximetry 96 % 07/20/2024 Blood pressure diastolic 80 mm Hg 11/08/2024 Height 62 in 11/08/2024 Blood pressure systolic 128 mm Hg 11/08/2024 Weight 143.2 lbs 11/08/2024 BMI 26.19 kg/m2 11/08/2024 Procedures Procedure Date Ordered Date Performed Result Body Sit e CARDIO Echocardiogram 07/20/2024 N/A Encounters Encounter Location Date Provider Diagnosis [facility] [address] [place] [address] 04/21/2024 Lalo Hoy Dorsalgia, unspecifi ed M54.9 ; Hypertension I10 and Encounter for immunization Z23 [facility] [address] [place] [address] 08/18/2024 Lalo Faustin Acute bronchitis, unspecified organism J20.9 [facility] [address] [place] [place] [place] [address] 02/16/2024 Lalo Faustin Encounter for Medica re annual wellness exam Z00.00 [facility] [address] [place] [address] 01/25/2024 Lalo Faustin Bruise T14.8XXA [facility] [address] [place] [address] 07/20/2024 Lalo Faustin AF (paroxysmal atria l fibrillation) I48.0 ; CAD (coronary artery disease) I25.10 ; Congestive heart failure I50.9 ; Pneumonia J18.9 and Back pain M54.[address] [address] 11/08/2024 Lalo Faustin Left inguinal hernia K40.90 and Low back pain associated with a spinal disorder other than radiculopathy or spinal stenosis M54.50 [place] [address] [place] [address] 12/13/2024 Lalo Faustin [facility] [address] [place] [place] [address] 01/10/2025 Lalo Faustin [facility] [address] [place] [address] 09/13/2024 Lalo Faustin BP (high blood press ure) I10 ; Elevated cholesterol E78.00 ; Hyperinsulinism E16.1 ; Abnormal glucose R73.09 ; Thyroid nodule E04.1 ; Fatigue R53.83 and Screening for colon cancer Z12.11 [facility] [address] [place] [address] 09/15/2024 Lalo Faustin [facility] [address] [place] [place] [address] 09/25/2024 [address] [address] 09/27/2024 Lalo Faustin [facility] [address] [place] [address] 10/16/2024 Lalo [facility] [address] [place] [address] 11/13/2024 Lalo sherie [facility] [address] [place] [address] 07/17/2024 Lalo Faustin [facility] [address] [place] [address] 07/19/2024 Lalo sherie [facility] [address] [place] [address] 08/07/2024 Lalo Faustin Pneumonia J18.9 [facility] [address] [place] [address] 08/09/2024 Lalo sherie [facility] [address] [place] [address] 08/16/2024 Lalo sherie [facility] [address] [place] [address] 08/17/2024 Lalo sherie [facility] [address] [place] [address] 05/18/2024 Lalo [facility] [address] [place] [address] 05/31/2024 Lalo Faustin [facility] [address] [place] [address] 06/06/2024 Lalo sherie [facility] [address] [place] [address] 06/16/2024 Lalo [facility] [address] [place] [address] 07/10/2024 Lalo [facility] [address] [place] [address] 07/14/2024 Lalo Faustin [facility] [address] [place] [address] 02/16/2024 Lalo Faustin Osteoporosis M81.0 [facility] [address] [place] [facility] [place] [place] [address] 02/17/2024 Lalo [facility] [address] [place] [facility] [place] [place] [address] 02/29/2024 Lalo [facility] [address] [place] [facility] [place] [address] 03/20/2024 Lalo [facility] [address] [place] [place] [place] [address] 04/20/2024 Lalo [facility] [address] [place] [place] [place] [address] 05/09/2024 Lalo Faustin [facility] [address] [place] [place] [address] 01/31/2024 Lalo Faustin CAD (coronary artery disease) I25.10 Assessments Encounter Date Diagnosis (ICD Code) Assessment Notes Treatment Notes Treatment Clinical Notes Section Notes 01/25/2024 Bruise (ICD-10 - T14.8XXA) no other bleeding -watch for that - may needs labs if does 02/16/2024 Encounter for Medicare annual wellness exam (ICD-10 - Z00.00) Patient presents to office for a subsequent medicare wellness appointment. A total of 30 minutes was spent with the patient talking about home safety, depression/an xiety, vision exam was completed, patient is up to date on vaccines and mammogram. Patient would like a dexa scan and colonoscopy ordered. a mini cog examination was completed patient scored a 24/30 scoring in the mild range, patient struggled with drawing a clock and placing the the time correctly 04/21/2024 Dorsalgia, unspecified (ICD-10 - M54.9) 04/21/2024 Hypertension (ICD-10 - I10) 07/20/2024 AF (paroxysmal atrial fibrillation) (ICD-10 - I48.0) 07/20/2024 CAD (coronary artery disease) (ICD-10 - I25.10) 01/31/2024 CAD (coronary artery disease) (ICD-10 - I25.10) 02/16/2024 Osteoporosis (ICD-10 - M81.0) 08/07/2024 Pneumonia (ICD-10 - J18.9) 08/18/2024 Acute bronchitis, unspecified organism (ICD-10 - J20.9) Rest and drink more liquids, especially water. You may use a humidifier or vaporizer to help keep the drainage moist. Wvss-jto-dnqhxip Nasal Saline may help the stuffy and runny nose. Use Ibuprofen and or Tylenol as needed for fever, chills, body aches or pain. Children 5 years old should not be given itpb-ybg-ghtgnmk cough and cold medications such as guaifenesin and dextromethorphan. If you're over age 5, you may try kvnl-mhk-jklfoan cold medications such as guaifenesin and dextromethorphan, or multi-symptom cold reliever such as Dayquil to help reduce the symptoms. Antibiotics have been prescribed. You should take these until completed and follow the directions. Antibiotics can sometimes cause upset stomach, and in rare cases, serious allergic reactions or serious gastrointestinal problems. If you start having severe abdominal pain, severe vomiting, or bloody diarrhea, you should be reevaluated by your physician or urgent care immediately. Follow up with your Primary Care Provider or return to clinic if symptoms do not improve within 3-5 days. If you develop severe symptoms such as shortness of breath, repeated vomiting, coughing up blood, or chest pain you should go to the emergency room or call 911 11/08/2024 Left inguinal hernia (ICD-10 - K40.90) 11/08/2024 Low back pain associated with a spinal disorder other than radiculopathy or spinal stenosis (ICD-10 - M54.50) injections 09/13/2024 BP (high blood pressure) (ICD-10 - I10) 09/13/2024 Elevated cholesterol (ICD-10 - E78.00) 09/13/2024 Hyperinsulinism (ICD-10 - E16.1) 07/20/2024 Congestive heart failure (ICD-10 - I50.9) 04/21/2024 Encounter for immunization (ICD-10 - Z23) 07/20/2024 Pneumonia (ICD-10 - J18.9) 09/13/2024 Abnormal glucose (ICD-10 - R73.09) 09/13/2024 Thyroid nodule (ICD-10 - E04.1) 07/20/2024 Back pain (ICD-10 - M54.9) 09/13/2024 Fatigue (ICD-10 - R53.83) 09/13/2024 Screening for colon cancer (ICD-10 - Z12.11) 04/21/2024 Other Recommended to rest and use a heating pad on the area. Take NSAIDs for pain as needed Plan Of Treatment Pending Test Test Name Order Date CMP (COMPLETE METABOLIC PANEL) CMP (COMPLETE METABOLIC PANEL) HEMOGLOBIN A1C (GLYCO) 07/14/2023 IRON, TOTAL 07/14/2023 IRON, TOTAL 11/04/2023 LIPID PANEL (CHOL/TRIG/HDL/LDL) 07/14/19 24 CBC WITH DIFF 07/14/2023 CBC WITH DIFF 11/04/2023 VITAMIN D, 25 LEVEL (TOTAL) 07/14/2023 VITAMIN D, 25 LEVEL (TOTAL) 11/04/2023 XR Chest PA and Lateral (Routine CXR) * 11/04/2023 XR Chest PA and Lateral (Routine CXR) * 02/17/2023 MAMM Mammograms CAD 04/07/2023 MRI Lumbar Spine w/wo contrast CARDIO Echocardiogram 07/20/2024 URINE SODIUM,RANDOM 07/14/2023 FECAL OCCULT BLOOD 09/13/2024 Insulin Level 07/14/2023 CMP - Comprehensive Metabolic Panel 07/16 CMP - Comprehensive Metabolic Panel 07/2024 CMP - Comprehensive Metabolic Panel 01/2024 CBC W/AUTO DIFF 12/20/2023 STOOL OCCULT BLOOD 07/14/2023 BNP 11/13/2022 BNP 02/17/2023 CBC AUTO DIFF 02/17/2023 CBC AUTO DIFF 11/13/2022 CBC AUTO DIFF 09/13/2024 GLYCOHEMOGLOBIN A1C 09/13/2024 LIPID PROFILE 02/17/2023 LIPID PROFILE 09/13/2024 PROF 14(COMP METB) 11/13/2022 PROF 14(COMP METB) 02/17/2023 THYROID PROFILE WITH TSH 02/17/2023 XR ANKLE RT MIN 3 VIEWS 11/04/2023 XR CHEST 2 V 12/17/2023 XR DEXA BONE DENSITY 02/16/2024 XR HIP RT 2 3V W PELVIS 12/06/2023 XR LSPINE 2_3 VIEWS 04/07/2023 THYROID PANEL (T4/TSH/FREE T3) 3 THYROID PANEL (T4/TSH/FREE T3) 4 THYROID PANEL (T4/TSH/FREE T3) 4 THYROID PANEL (T4/TSH/FREE T3) 5 XR HIP LT 2 3V W PELVIS 04/07/2023 ECHOCARDIO M/2D COMPLETE 11/13/2022 XR lumbar spine 2-3V 12/06/2023 XR sacrum coccyx min 2V 12/06/2023 XR CHEST (2 VW) 08/07/2024 Insurance Providers Payer Name Payer Address Payer Phone Subscriber Number Group Number Insured Name Patient Relationship to Insured Coverage Start Date Coverage End Date MEDIC[place] [address] [place] [address] [id number] Abdirahman Gomez Self - patient is the insured [employer] SUPPLEMENT [address] [address] [place], [place] [phone] [id number] PLAN F Abdirahman Gomez Self - patient is the insured 0 Medications Administered Medication Instructions Date of Administration Dosage Notes Dexamethasone, 4mg/mL 08/18/2024 8 mg Kenalog-40 11/13/2022 80 mg 80 Kenalog-40 12/18/2022 80 mg 80 Kenalog-40 04/07/2023 80 mg 80 Kenalog-40 07/14/2023 80 mg 80 Kenalog-40 11/04/2023 80 mg 80 Kenalog-40 01/19/2024 80 mg Ketorolac Tromethamine 11/13/2022 30 mg Ketorolac Tromethamine 12/18/2022 30 mg 30 Ketorolac Tromethamine 04/07/2023 30 mg 30 Ketorolac Tromethamine 07/14/2023 30 mg 30 Ketorolac Tromethamine 11/04/2023 30 mg 30 Ketorolac Tromethamine 01/19/2024 30 mg 30 Ketorolac Tromethamine 04/21/2024 30 mg Ketorolac Tromethamine 07/20/2024 30 mg Ketorolac Tromethamine 11/08/2024 60 mg Orphenadrine Citrate 11/13/2022 30 mg 30 Orphenadrine Citrate 12/18/2022 30 mg 30 Orphenadrine Citrate 04/07/2023 30 mg 30 Orphenadrine Citrate 07/14/2023 30 mg 30 Orphenadrine Citrate 11/04/2023 30 mg 30 Orphenadrine Citrate 01/19/2024 30 mg 30 Orphenadrine Citrate 04/21/2024 30 mg Orphenadrine Citrate 11/08/2024 60 mg Triamcinolone 40 mg/ml 04/21/2024 80 mg Triamcinolone 40 mg/ml 07/20/2024 80 mg Triamcinolone 40 mg/ml 11/08/2024 80 mg Medical (General) History Medical History History ICD Code CAD (coronary artery disease) I25.10 Seizure R56.9 Insomnia G47.00 Elevated cholesterol E78.00 Thyroid nodule E04.1 Hypertension I10 Palpitations R00.2 AF (paroxysmal atrial fibrillation) I48. 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 ankle 12/2016 Hospitalization History Reason Date(Month/Year) Pneumonia 07/2024 pneumonia 2022
--- OUTSIDE RECORDS SUMMARY | 2025-01-23 14:43 | XMS_ITS | Clinical Summary ---
Author Organization [facility] Address [address] [place] [address] Care Team Providers Care Chucking Machine Operator Name Role Phone Ganesh Samuel MD Primary Care Provider [phone] Allergies Active Allergy Reactions Criticality Noted Date Comments Adhesive Tape-Silicones Rash Low 09/28/2014 Amitriptyline Hallucinations 04/17/2024 Ciprofloxacin 07/08/2022 Codeine 07/08/2022 Rosuvastatin Other 04/08/2015 Myalgia Medications potassium chloride CR (Klor-Con M20) 20 mEq ER tablet Take 20 mEq by mouth in the morning. 3 Active apixaban (Eliquis) 5 mg tablet Take 2.5 mg by mouth in the morning and at bedtime. Active omeprazole (PriLOSEC) [address] capsule Take 40 mg by mouth before breakfast. 3 Active isosorbide mononitrate ER (Imdur) 60 mg 24 hr tablet Take 30 mg by mouth in the morning. Active furosemide (Lasix) 20 mg tablet Take 20 mg by mouth in the morning. 3 Active montelukast (Singulair) 10 mg tablet montelukast 10 mg tablet Active rosuvastatin (Crestor) 5 mg tablet Take 5 mg by mouth once daily as directed. Active pramipexole (Mirapex) 0.5 mg tablet pramipexole 0.5 mg tablet Active valsartan (Diovan) 40 mg tablet Take 40 mg by mouth in the morning. 3 Active amitriptyline (Elavil) 25 mg tablet Take 25 mg by mouth at bedtime. 3 Active tiZANidine (Zanaflex) 4 mg tablet Take 4 mg by mouth in the morning and at bedtime. 3 Active LORazepam (Ativan) 1 mg tablet Take 1 mg by mouth in the morning and at bedtime. Active HYDROcodone-acet aminophen (Sacul) 5-325 mg tablet Take 5-325 tablets by mouth in the morning and at bedtime. Active aspirin 81 mg EC tablet Take 1 tablet by mouth in the morning. 5 Active omega 3-mdr-mod-fish oil (Fish OiL) 1,000 mg (120 mg-180 mg) capsule Take 100 mg by mouth in the morning. Active calcium carbonate-vitami n D3 500 mg-5 mcg (200 unit) tablet Take 1 tablet by mouth in the morning. Active amLODIPine (Norvasc) 10 mg tabletIndication s:Essential hypertension TAKE 1 TABLET BY MOUTH EVERY MORNING 90 tablet 3 5 Active carvedilol (Coreg) 12.5 mg tabletIndication s:Essential hypertension TAKE 1 TABLET BY MOUTH EVERY MORNING AND TAKE 1 TABLET ONCE AT BEDTIME 180 tablet 3 5 Active Active Problems Problem Noted Date Diagnosed Date Abnormal ECG 04/17/2024 Anxiety 04/17/2024 Carotid stenosis 04/17/2024 Constipation 04/17/2024 Diverticulosis 04/17/2024 Elevated troponin 04/17/2024 Embolic stroke 04/17/2024 Impaired mobility and activities of daily living 04/17/2024 Pacemaker 04/17/2024 Upper extremity weakness 04/17/2024 Abdominal aortic aneurysm 12/28/20222022 Abdominal pain 12/28/2022 12/28/2022 Chest pain 12/28/2022 12/28/2022 Hip pain 12/28/2022 12/28/2022 Depressive disorder 12/28/2022 12/28/2022 Diverticulitis of colon 12/28/2022 12/29/19 23 Dyspnea 12/28/2022 12/28/2022 Epilepsy 12/28/2022 12/28/2022 Hypercholesterolemia 12/28/2022 12/28/2022 Insomnia 12/28/2022 12/28/2022 Low back pain 12/28/2022 12/28/2022 Pain in wrist 12/28/2022 12/28/2022 Shoulder pain 12/28/2022 12/28/2022 Palpitations 12/28/2022 12/28/2022 Tinea corporis 12/28/2022 12/28/2022 Tricuspid valve regurgitation 12/28/2022 Thyroid nodule 12/28/2022 12/28/2022 Closed fracture of neck of femur 08/24/2018 12/28/2022 Closed bimalleolar fracture 01/27/2017 07/12/2022 Heart disease 01/06/2017 12/28/2022 Paroxysmal atrial fibrillation 12/31/2014 0 12/28/2022 S/P CABG x 3 12/31/2014 12/28/2022 Hypothyroidism 12/31/2014 12/28/2022 Bradycardia 11/02/2014 12/28/2022 CAD (coronary artery disease) 11/02/2014 Encounters Date Type Department Care Team Description 01/23/2025 2:15 PM EDT Ancillary Procedure [facility] [address] [place] [address] Encounter for implantable defibrillator reprogramming or check 12/03/2024 Refill [facility] [address] [place] [address] Alexandria Santos MD Essential hypertension 12/03/2024 Refill [facility] [address] [place] [phone] Alyssa Abel CNP Essential hypertension 11/09/2024 10:20 PM EDT Ancillary Procedure [facility] [address] [place] [id number] Adjustment and management of cardiac pacemaker 11/07/2024 Orders Only [facility] [address] [place] [id number] Sarabjit Sierra MD from Last 3 Months Immunizations Immunization Administration Dates Next Due Covid (Pfizer) Bivalent Booster =>12 YRS 022 Influenza, High Dose Seasona l, Preservative Free 03/23/2017,03/18/2016 Influenza, High-dose Seasona l, Quadrivalent, Preservative Free 03/19/2021 Influenza, Seasonal, Quadriv alent, Adjuvanted 04/03/2022 Influenza, trivalent, adjuvanted 03/22/2020 Moderna SARS-CoV-2 Vaccination 05/14/2021,2020,07/23/2020 Pneumococcal Polysaccharide PPV23 04/03/2022 Family History Medical History Relation Name Comments Alcohol abuse Father Aneurysm Mother Relation Name Status Comments Father Mother Social History Tobacco Use Types Packs/Day Years Used Date Smoking Tobacco: Never Smokeless Tobacco: Never Tobacco Cessation:Counseling Given: Not Answered Alcohol Use Standard Drinks/Week Comments Not Currently [...] Heterosexual or Straight 06/2024 2:00 PM EDT Last Filed Vital Signs Vital Sign Reading Time Taken Comments Blood Pressure 146/42 04/17/2024 2:02 PM EST Pulse 87 04/17/2024 2:02 PM EST Temperature - - Respiratory Rate - - Oxygen Saturation 94% 04/17/2024 2:02 PM EST Inhaled Oxygen Concentration - - Weight 64 kg (141 lb) 04/17/2024 2:02 PM EST Height 157.5 cm (5' 2 ) 04/17/2024 2:02 PM EST Body Mass Index 25.79 04/17/2024 2:02 PM EST Plan of Treatment Health Maintenance Due Date Last Done Comments Medicare Annual Wellness (AWV) 1940 Depression Screening 1952 Adult Tetanus 1962 Zoster Vaccines (1 of 2) 1990 Fall Risk Screening 2005 Pneumococcal Vaccine: 50+ Years (2 of 2 - PCV) 04/03/2023 04/03/2022 COVID-19 Vaccine ( season) 2024 05/27/2022, 05/14/2021, 05/14/2021, Additional history exists Influenza Vaccine (#1) 2025 2, 03/19/2021, 03/22/2020, Additional history exists HIB Vaccines Aged Out No longer eligi ble based on patient's age to complete this topic HPV Vaccines Aged Out No longer eligi ble based on patient's age to complete this topic IPV Vaccines Aged Out No longer eligi ble based on patient's age to complete this topic Meningococcal B Vaccine Aged Out No l onger eligible based on patient's age to complete this topic Meningococcal Vaccine Aged Out No jazmin leora eligible based on patient's age to complete this topic Rotavirus Vaccines Aged Out No longer eligible based on patient's age to complete this topic Procedures Procedure Name Priority Date/Time Associated Diagnosis Comments CARDIAC DEVICE CHECK CHECK - REMOTE Routine 11/15/2024 3:43 PM EDT Adjustment and management of cardiac pacemaker CARDIAC DEVICE CHECK - REMOTE - PACEMAKER Routine 11/07/2024 12:00 AM EDT from Last 3 Months Results * CARDIAC DEVICE CHECK - REMOTE - PACEMAKER (11/15/2024 3:43 PM EDT) Sarabjit Sierra MD CV IMPLANTABLE CARDIAC DEVICE ME OCEDURES Final Result CPACS * Cardiac device check - Remote pacemaker (11/07/2024 12:00 AM EDT) Anatomical Region Laterality Modality Other 11/07/2024 Sarabjit Sierra MD CV IMPLANTABLE CARDIAC DEVICE ME OCEDURES Final Result from Last 3 Months Insurance MEDICARE [employer] Care Teams Chucking Machine Operator Relationship Specialty Start Date End Date Ganesh Samuel MD [address] [facility] [place] [address] PCP - General 07/08/22
--- OUTSIDE RECORDS SUMMARY | 2025-01-23 14:43 | XMS_ITS | Clinical Summary ---
Author Organization [facility] Address [id number] [address] [place] [address] Care Team Providers Care Campus Rep Name Role Phone Ganesh Samuel MD Primary Care Provider [phone] Allergies No known active allergies Medications metoprolol tartrate (LOPRESSOR) 50 mg tablet Take 50 mg by mouth 2 (two) times a day. Active omega-3 fatty acids (FISH OIL CONCENTRATE) 1,000 mg capsule Take 4 capsules by mouth daily. Active HYDROcodone-acet aminophen (NORCO) 5-325 mg per tablet Take 1 tablet by mouth 2 (two) times a day as needed for pain. Active simvastatin (ZOCOR) 20 mg tablet Take 20 mg by mouth nightly. Active nitroglycerin (NITROSTAT) 0.[address] 0.4 mg under the tongue every 5 (five) minutes as needed for chest pain. Active omeprazole (PriLOSEC) 40 mg capsule Take 40 mg by mouth 2 (two) times daily at 0800 and 1500. Active isosorbide mononitrate (IMDUR) 60 mg 24 hr tablet Take 60 mg by mouth daily. Active diclofenac (VOLTAREN) 75 mg EC tablet Take 75 mg by mouth 2 (two) times a day. Active aspirin 325 mg tablet Take 81 mg by mouth in the morning. Active cholecalciferol, vitamin D3, 2,000 units capsule Take 4,000 Units by mouth daily. Active diphenhydrAMINE- acetaminophen (TYLENOL PM) 25-500 mg tablet Take 2 tablets by mouth respiratory nightly. Active alendronate (FOSAMAX) 70 mg tablet 70 mg every 7 days. taking on s 7 Active lisinopril-hydro CHLOROthiazide (PRINZIDE,ZESTOR ETIC) 10-12.5 mg per tablet Take 2 tablets by mouth daily. Active tiZANidine (ZANAFLEX) 4 mg tablet Take 4 mg by mouth every 6 (six) hours as needed for muscle spasms. Active montelukast (SINGULAIR) 10 mg tablet Take 10 mg by mouth nightly. Active amLODIPine (NORVASC) 10 mg tablet Take 10 mg by mouth in the morning. Active rosuvastatin (CRESTOR) 5 mg tablet Take 5 mg by mouth in the morning. Active pramipexole (MIRAPEX) 0.5 mg tablet Take 0.5 mg by mouth respiratory nightly. Active carvediloL (COREG) 12.5 mg tablet Take 12.5 mg by mouth in the morning and 12.5 mg in the evening. Take with meals. Active potassium chloride (KLOR-CON) 20 mEq packet Take 20 mEq by mouth in the morning and 20 mEq before bedtime. Active furosemide (LASIX) 40 mg tablet Take 40 mg by mouth daily. Active LORazepam (ATIVAN) 1 mg tablet Take 1 mg by mouth every 6 (six) hours as needed for anxiety. Active ascorbic acid (VITAMIN C) 500 mg tablet Take 500 mg by mouth in the morning. Active Social History Tobacco Use Types Packs/Day Years Used Date Smoking Tobacco: Never Assessed Childcare Answer Date Recorded Childcare Unknown 11/23/2018 Employment Answer Date Recorded Employment Unknown 11/23/2018 Purpose - Life Answer Date Recorded Purpose and direction in life Unknown Comments Unknown Sex and Gender Information Value Date Recorded Sex Assigned at Not on file Legal Sex Female 11:36 AM EDT Gender Identity Not on file Sexual Orientation Not on file Last Filed Vital Signs Vital Sign Reading Time Taken Comments Blood Pressure 158/95 11/22/2021 3:26 PM EDT Pulse 80 11/22/2021 3:26 PM EDT Temperature 37.1 C (98.8 F) 11/22/2021 2:02 PM EDT Respiratory Rate 20 11/22/2021 3:26 PM EDT Oxygen Saturation 96% 11/22/2021 3:26 PM EDT Inhaled Oxygen Concentration - - Weight - - Height - - Body Mass Index - - Plan of Treatment Health Maintenance Due Date Last Done Comments Depression Screening 1952 Tobacco Screening 1952 DTaP,Tdap and Td Vaccines (1 - Tdap) 1959 Zoster (Shingles) Vaccine (1 of 2) 1990 Fall Risk Screening 2005 COVID-19 Vaccine (4 - 2023-2 5 season) 2024 05/14/2021, 08/20/2020, 07/23/2020 Influenza Vaccine 02/12/2025 03/19/2021, , 03/23/2017, Additional history exists Medical Devices Not on file Insurance MEDICARE [facility] Care Teams Campus Rep Relationship Specialty Start Date End Date Ganesh Samuel MD PCP - General 03/08/17
--- OUTSIDE RECORDS SUMMARY | 2025-01-23 14:43 | XMS_ITS | Encounter Summary ---
Author Organization [facility] Address [facility] [place] [address] Care Team Providers Care Manager Utilization Review Name Role Phone Ganesh Samuel MD Primary Care Provider [phone] Source Comments In the event this information is protected by the Federal Confidentiality of Alcohol and Drug AbusePatient Records regulations: The Federal rules restrict any use of the information to criminally investigate or prosecute any alcohol or drug abuse patient.[facility] Encounter Details Date Type Department Care Team (Latest Contact Info) Description 09/21/2018 H&P External-NonCCF Provider, Gladys, CONSTANCE Do not enter address information under generic External Provider. Social History Tobacco Use Types Packs/Day Years Used Date Smoking Tobacco: Never Smokeless Tobacco: Never Alcohol Use Standard Drinks/Week Comments Yes 0 (1 standard drink = 0.6 oz pur e alcohol) wine 1-2 x monthly Comments No Sex and Gender Information Value Date Recorded Sex Assigned at Not on file Legal Sex Female 8:45 AM EST Gender Identity Not on file Sexual Orientation Not on file Occupation Industry Job Start Date Job End Date Retired Not on file Not on file Not on file documented as of this encounter Functional Status * Are you deaf or do you have serious difficulty hearing? Answer Date of Assessment Author No 12/31/2014 9:25 AM Yaritza Benites Ma * Are you blind or do you have serious difficulty seeing, even when wearing glasses? Answer Date of Assessment Author No 12/31/2014 9:25 AM Yaritza Benites Ma * Do you have serious difficulty walking or climbing stairs? Answer Date of Assessment Author Yes 12/31/2014 9:25 AM Yaritza Benites Ma * Do you have difficulty dressing or bathing? Answer Date of Assessment Author No 12/31/2014 9:25 AM Yaritza Benites Ma * Because of a physical, mental, or emotional condition, do you have difficulty doing errands alone such as visiting a doctor's office or shopping? Answer Date of Assessment Author No 12/31/2014 9:25 AM Yaritza Benites Ma documented as of this encounter Mental Status * Because of a physical, mental, or emotional condition, do you have serious difficulty concentrating, remembering, or making decisions? Answer Entry Date Author No 12/31/2014 9:25 AM Yaritza Benites Ma documented in this encounter Plan of Treatment Not on file documented as of this encounter Visit Diagnoses Not on filedocumented in this encounter Care Teams Manager Utilization Review Relationship Specialty Start Date End Date Ganesh Samuel MD PCP - General Family Medicine 02/02/14 documented as of this encounter
--- OUTSIDE RECORDS SUMMARY | 2025-01-23 14:43 | XMS_ITS | Clinical Summary ---
Author Organization [facility] Address [address] [place] [address] Phone Care Team Providers Care Instructor Physical Name Role Phone Ganesh Samuel MD Primary Care Provider [phone] Social History Tobacco Use Types Packs/Day Years Used Date Smoking Tobacco: Never Assessed Comments Unknown Sex and Gender Information Value Date Recorded Sex Assigned at Not on file Legal Sex Female 6:04 PM EST Gender Identity Not on file Sexual Orientation Not on file Plan of Treatment Health Maintenance Due Date Last Done Comments Lipid Panel 1940 Yearly Adult Physical 1940 DTaP/Tdap/Td Vaccines (1 - Tdap) 1962 Pneumococcal Vaccine (1 of 1 - PCV) 1990 Zoster Vaccines (1 of 2) 1990 Bone Density Scan 2005 RSV High Risk: (Elderly (60+ ) or Population) (1 - 1-dose 75+ series) 2015 COVID-19 Vaccine ( - 2023-2 5 season) 2024 Influenza Vaccine (#1) 2025 HIB Vaccines Aged Out No longer eligi ble based on patient's age to complete this topic HPV Vaccines Aged Out No longer eligi ble based on patient's age to complete this topic Hepatitis A Vaccines Aged Out No long er eligible based on patient's age to complete this topic Hepatitis B Vaccines Aged Out No long er eligible based on patient's age to complete this topic IPV Vaccines Aged Out No longer eligi ble based on patient's age to complete this topic Meningococcal Vaccine Aged Out No jazmin leora eligible based on patient's age to complete this topic Rotavirus Vaccines Aged Out No longer eligible based on patient's age to complete this topic Care Teams Instructor Physical Relationship Specialty Start Date End Date Ganesh Samuel MD [address] [place] [address] PCP - General 06/11/22
--- OUTSIDE RECORDS SUMMARY | 2025-01-23 14:43 | XMS_ITS | Clinical Summary ---
Author Organization [facility] Address [address] [place] [address] Care Team Providers Care Assistant Coach Name Role Phone Ganesh Samuel MD Primary Care Provider [phone] Social History Tobacco Use Types Packs/Day Years Used Date Smoking Tobacco: Never Assessed Comments Unknown Sex and Gender Information Value Date Recorded Sex Assigned at Not on file Legal Sex Female 7:08 PM EDT Gender Identity Not on file Sexual Orientation Not on file Last Filed Vital Signs Vital Sign Reading Time Taken Comments Blood Pressure 174/76 03/13/2019 12:00 PM EDT Pulse - - Temperature - - Respiratory Rate - - Oxygen Saturation - - Inhaled Oxygen Concentration - - Weight 54 kg (119 lb) 03/13/2019 12:00 PM EDT Height 157.5 cm (5' 2 ) 03/13/2019 12:00 PM EDT Body Mass Index 21.77 03/13/2019 12:00 PM EDT Plan of Treatment Not on file Insurance [address] [place] [address] [facility] Care Teams Assistant Coach Relationship Specialty Start Date End Date Ganesh Samuel MD PCP - General Family Medicine 02/11/23
--- NOTE | 2025-01-23 15:04 | ECG_ITS ---
[facility] Test Date: 2025-01-23 Pat Name: ABDIRAHMAN GOMEZ Department: Room: - Gender: Female Family Day Care Provider: : 1940 Requested By: IRISH FAUSTIN Order Number: [id number] Reading MD: ERIK ELKINS M.D. Measurements Intervals [place] Rate: 84 P: -30862 PA: -20083 QRS: -82 QRSD: 84 T: 74 QT: 374 QTc: 414 Interpretive Statements 63172 Atrial fibrillation with aberrant conduction, or ventricular premature complexes 3113 Cannot rule out anterior myocardial infarction, probably old 3633 Inferior myocardial infarction, probably old [address] depression, probably digitalis effect 7200 Abnormal left axis deviation 9150 abnormal ECG Compared to ECG 07/13/2024 13:50:10 Ventricular premature complex(es) now present Myocardial infarct finding still present ST (T wave) deviation still present Electronically Signed On 01-23-2025 19:56:17 EDT by ERIK ELKINS M.D.
--- NOTE | 2025-01-23 15:05 | XR_ITS ---
[facility] [place] [id number] Patient Name: ABDIRAHMAN GOMEZ MRN: [id number] date: 1940 Sex: F Assigned Patient Location: ER Current Patient Location: ER Accession/Order Number: [id number] Exam Date: 01/23/2025 16:18 Report Date: 01/23/2025 16:34 At the request of: JONA STORY MD Procedure: XR chest 1V Plain film chest Single view HISTORY: Cough and weakness COMPARISON: 08/09/2024 FINDINGS: SUPPORT DEVICES: None POSTSURGICAL CHANGES: Cardiac device remains intact. Sternotomy unchanged. HEART: Within normal limits PULMONARY DORA: Within normal limits MEDIASTINUM: Unremarkable LUNGS AND PLEURA: No acute lung process, pleural effusion or pneumothorax identified. BONY STRUCTURES: Intact ADDITIONAL FINDINGS None XR/XR chest 1V IMPRESSION: No acute process. Impression dictated by: Mamadou Rodríguez M.D. 01/23/2025 4:34 PM Dictation Location: [facility] Electronically authenticated by: [id number] Date: 01/23/2025 16:34
--- NOTE | 2025-01-23 15:07 | ED.GENADUL1 ---
HPI HPI - General Adult General Chief complaint: Shortness of Breath/Dyspnea Stated complaint: urti complaints Time Seen by Provider: 01/23/25 14:47 Source: patient and family Mode of arrival: Wheelchair Limitations: no limitations History of Present Illness HPI narrative: 84-year-old female to the emergency department for a cough. She is concerned about having pneumonia. She coughed up yellow phlegm and there was a small amount of blood in it. She has done that previously when she had pneumonia. She has not had a fever vomiting or diarrhea. She feels a little bit weak. She states her appetite has been good and she has been eating and drinking recently and she recently had her pacemaker checked and it was fine. Related Data Home Medications ?Medication ?Instructions ?Recorded ?Confirmed amlodipine 10 mg tablet 10 mg PO DAILY 02/01/23 07/13/24 aspirin 81 mg capsule 81 mg PO DAILY 02/01/23 07/13/24 carvedilol 12.5 mg tablet 12.5 mg PO Q12H 02/01/23 07/13/24 hydrocodone 5 mg-acetaminophen 325 1 tab PO Q12H 02/01/23 07/13/24 mg tablet lorazepam 1 mg tablet 1 mg PO Q12H 02/01/23 07/13/24 montelukast 10 mg tablet 10 mg PO DAILY 02/01/23 07/13/24 omeprazole 40 mg capsule,delayed 40 mg PO BID 02/01/23 07/13/24 release polyethylene glycol 3350 17 17 g PO DAILY PRN constipation 02/01/23 07/13/24 gram/dose oral powder (ClearLax) potassium chloride 20 mEq 20 meq PO DAILY 02/01/23 07/13/24 tablet,extended release(part/cryst) (Klor-Con M) pramipexole 0.5 mg tablet 0.5 mg PO QPM 02/01/23 07/13/24 rosuvastatin 5 mg tablet 5 mg PO QPM 02/01/23 07/13/24 sennosides 8.6 mg tablet (senna) 17.2 mg PO BID Constipation 02/01/23 07/13/24 tizanidine 4 mg tablet 8 mg PO QPM 02/01/23 07/13/24 valsartan 40 mg tablet 40 mg PO DAILY 02/01/23 07/13/24 ascorbic acid (vitamin C) 1,000 mg 1 g PO DAILY 07/13/24 07/13/24 tablet (Vitamin C) biotin 10,000 mcg capsule 1 mcg PO DAILY 07/13/24 07/13/24 cholecalciferol (vitamin D3) 125 5,000 unit PO DAILY 07/13/24 07/13/24 mcg (5,000 unit) tablet (Vitamin D3) magnesium 250 mg tablet 500 mg PO DAILY 07/13/24 07/13/24 multivitamin 1 tab PO DAILY 07/13/24 07/13/24 omega 1-ndo-did-fish oil 1,200 mg 1 cap PO DAILY 07/13/24 07/13/24 (144 mg-216 mg) capsule (Fish Oil) Previous Rx's ?Medication ?Instructions ?Recorded apixaban 2.5 mg tablet (Eliquis) 2.5 mg PO BID #60 tabs 02/03/23 furosemide 20 mg tablet (Lasix) 20 mg PO DAILY #30 tabs 02/03/23 isosorbide mononitrate 30 mg 30 mg PO QD #30 tabs 02/03/23 tablet,extended release 24 hr azithromycin 500 mg tablet 500 mg PO DAILY 2 days #2 tabs 07/14/24 azithromycin 250 mg tablet See Rx Instructions PO .COMPLEX #6 01/23/25 (Zithromax Z-Butch) tabs benzonatate 100 mg capsule 100 mg PO TID PRN cough #20 caps 01/23/25 Allergies Allergy/AdvReac Type Severity Reaction Status Date / Time amitriptyline Allergy Severe Unknown Verified 01/23/25 14:51 ciprofloxacin (From Cipro) Allergy Unknown Unknown Verified 01/23/25 14:51 doxepin AdvReac Hallucinati Verified 01/23/25 14:51 ng paper tape Allergy Severe Unknown Uncoded 01/23/25 14:51 Opioid HPI Opioid Management Most Recent Opioid Data: Last Pain Scale 4 Today, 14:52 Last Pain Intensity 0 02/01/23, 10:40 Last ORT Total Score 0 07/13/24, 17:33 Last ORT Risk Category Low Risk 07/13/24, 17:33 Review of Systems ROS Narrative A ten point review of systems is negative except as noted above. [facility] Medical History Sepsis ?A41.9 - Sepsis, unspecified organism (ICD-10) CAD (coronary artery disease) ?I25.10 - Atherosclerotic heart disease of [place] coronary artery without angina pectoris (ICD-10) HTN (hypertension) ?I10 - Essential (primary) hypertension (ICD-10) Hyponatremia ?E87.1 - Hypo-osmolality and hyponatremia (ICD-10) (HFpEF) heart failure with preserved ejection fraction ?I50.30 - Unspecified diastolic (congestive) heart failure (ICD-10) H/O stroke without residual deficits ?Z86.73 - Personal history of transient ischemic attack (TIA), and cerebral infarction without residual deficits (ICD-10) Acute respiratory failure with hypoxia ?J96.01 - Acute respiratory failure with hypoxia (ICD-10) MRSA (methicillin resistant Staphylococcus aureus) ?A49.02 - Methicillin resistant Staphylococcus aureus infection, unspecified site (ICD-10) CHF (congestive heart failure) ?I50.9 - Heart failure, unspecified (ICD-10) Pneumonia ?J18.9 - Pneumonia, unspecified organism (ICD-10) Hypoxemia ?R09.02 - Hypoxemia (ICD-10) Surgical History History of hysterectomy ?Z90.710 - Acquired absence of both cervix and uterus (ICD-10) S/P triple vessel bypass ?Z95.1 - Presence of aortocoronary bypass graft (ICD-10) History of open heart surgery ?Z98.890 - Other specified postprocedural states (ICD-10) Family History Mother Family history of CHF (congestive heart failure) Family history of COPD (chronic obstructive pulmonary disease) Other Family history of cancer Family history of diabetes mellitus Family history of hypertension Family history of myocardial infarction Social History (Updated 07/13/24 @ 17:32 by Kanwal Thompson) Within the past year, how often did you have a drink containing alcohol: never Within the past year, how often did you have six or more drinks on one occasion: never Score interpretation: A score less than 3 is consistent with normal alcohol consumption. Smoking status: Never smoker Non-prescribed substance use: denies use Previous occupational history: retired Highest level of school completed/degree received: 10th grade Are you now , , , , never or living with a partner: In a typical week, how many times do you talk on the telephone with family, friends, or neighbors: 3 or more times per week How often do you get together with friends or relatives: 3 or more times per week How often do you attend shinto or rastafarian services: never Do you belong to any clubs or organizations such as shinto groups unions, fraternal or athletic groups, or school groups: no Total score: 1 Score interpretation: A score of less than or equal to 1 indicates the most socially isolated. Little interest or pleasure in doing things: not at all Feeling down, depressed, or hopeless: not at all Feel stressed/tense/nervous/anxious/difficulty sleeping: not at all Do you think of yourself as: straight/heterosexual Gender Identity: female Exam Narrative Exam Narrative: Nurses note and vital signs reviewed and patient is not hypoxic. General: The patient appears well and in no apparent distress. Patient is resting comfortably on cart. Skin: Warm, dry, no pallor noted. There is no rash noted. Head: Normocephalic, atraumatic Eye: Normal conjunctiva, no drainage Ears, Nose, Mouth, and Throat: oral mucosa is moist. Nares patent. Cardiovascular: Regular Rate and Rhythm Respiratory: Breath sounds are equal with good air movement Back: non-tender GI: Soft and nontender Musculoskeletal: The patient has no evidence of calf tenderness, no pitting edema, symmetrical pulses noted bilaterally Neurological: A&O, normal speech Psychiatric: Cooperative Constitutional Vital Signs, click to edit/add: Last Vital Signs Temp 97.7 F 01/23/25 14:52 Pulse 79 01/23/25 14:52 Resp 18 01/23/25 14:52 BP 171/95 H 01/23/25 14:52 Pulse Ox 97 01/23/25 14:52 O2 Del Method Room Air 01/23/25 14:52 Course Vital Signs Vital signs: Vital Signs Temperature 97.7 F 01/23/25 14:52 Pulse Rate 79 01/23/25 14:52 Respiratory Rate 18 01/23/25 14:52 Blood Pressure 171/95 H 01/23/25 14:52 Pulse Oximetry 97 01/23/25 14:52 Oxygen Delivery Method Room Air 01/23/25 14:52 Temperature 97.7 F 01/23/25 14:52 Pulse Rate 79 01/23/25 14:52 Respiratory Rate 18 01/23/25 14:52 Blood Pressure 171/95 H 01/23/25 14:52 Pulse Oximetry 97 01/23/25 14:52 Oxygen Delivery Method Room Air 01/23/25 14:52 Medical Decision Making MDM Narrative Medical decision making narrative: Chest x-ray does not show pneumonia. Had no clinical suspicion of pulmonary embolism. Blood work also is normal. She is discharged home on Zithromax and Tessalon. Treatment diagnosis and follow-up were discussed with the patient. She was offered a COVID test but does not feel she needs it. I have no clinical suspicion of COVID. Differential Diagnosis Differential Diagnosis: Pneumonia, URI, COVID Lab Data Lab results reviewed: Yes I reviewed the patient's lab results Labs: Lab Results 01/23/25 Range/Units 15:38 WBC 13.0 H (4.0-11.0) 10^3/uL RBC 4.11 L (4.20-5.40) 10^6/uL Hgb 14.1 (12.0-16.0) g/dL Hct 41.3 (36.0-48.0) % MCV 100.5 H (81.0-99.0) fL MCH 34.3 H (26.7-34.0) pg MCHC 34.1 (29.9-35.2) g/dL RDW 13.5 (11.0-15.0) % Plt Count 255 (150-450) 10^3/uL MPV 9.1 L (9.5-13.5) fL Neut % (Auto) 68.0 (43.0-75.0) % Lymph % (Auto) 20.9 (20.5-60.0) % [place] % (Auto) 8.7 (1.7-12.0) % Eos % (Auto) 0.6 L (0.9-7.0) % Baso % (Auto) 0.5 (0.2-2.0) % Neut # (Auto) 8.8 H (1.4-6.5) 10^3/uL Lymph # (Auto) 2.7 (1.2-3.8) 10^3/uL [place] # (Auto) 1.1 H (0.3-0.8) 10^3/uL Eos # (Auto) 0.1 (0.0-0.7) 10^3/uL Baso # (Auto) 0.1 (0.0-0.1) 10^3/uL Abs Immat Gran (auto) 0.17 H (0.00-0.03) 10^3/uL Imm/Tot Granulo (auto) 1.3 H (0.0-0.5) % Sodium 132 L (136-145) mmol/L Potassium 3.8 (3.5-5.1) mmol/L Chloride 100 (98-107) mmol/L Carbon Dioxide 24.4 (21.0-32.0) mmol/L Anion Gap 11.4 BUN 10.0 (7.0-18.0) mg/dL Creatinine 0.85 (0.55-1.02) mg/dL Est GFR ( Amer) >60 (>=60 mL/min/1.73m^2) Est GFR (Non-Af Amer) >60 (>=60 mL/min/1.73m^2) BUN/Creatinine Ratio 11.8 Glucose 112 H (74-106) mg/dL Calcium 9.3 (8.5-10.1) mg/dL Imaging Data Chest x-ray: Radiologist's impression: ITS Impressions Chest X-Ray 01/23/25 15:05 IMPRESSION: No acute process. Impression dictated by: Mamadou Rodríguez M.D. 01/23/2025 4:34 PM Dictation Location: [place] [id number] Electronically authenticated by: [id number] Y Date: 01/23/2025 16:34 ECG Data Attestation: I personally reviewed and interpreted this ECG as follows: (EKG on my interpretation shows atrial fibrillation with a rate of 84) Discharge Plan Discharge Chief Complaint: Shortness of Breath/Dyspnea Clinical Impression: Upper respiratory infection Patient Disposition: Home, Self-Care Time of Disposition Decision: 16:42 Condition: Good Mode of Transportation: Private Vehicle Prescriptions / Home Meds: New azithromycin [Zithromax Z-Butch] 250 mg tablet See Rx Instructions .ROUTE .COMPLEX Qty: 6 0RF Rx Instructions: For 250 mg dose pack: take 500 mg today (day 1), then 250 mg for 4 days (days 2-5) benzonatate 100 mg capsule 100 mg PO TID PRN (Reason: cough) Qty: 20 0RF No Action multivitamin Tablet 1 tab PO DAILY ascorbic acid (vitamin C) [Vitamin C] 1,000 mg tablet 1 g PO DAILY cholecalciferol (vitamin D3) [Vitamin D3] 125 mcg (5,000 unit) tablet 5,000 unit PO DAILY omega 6-qfb-pow-fish oil [Fish Oil] 1,200 (144-216) mg capsule 1 cap PO DAILY magnesium 250 mg tablet 500 mg PO DAILY biotin 10,000 mcg capsule 1 mcg PO DAILY azithromycin 500 mg tablet 500 mg PO DAILY 2 Days Qty: 2 0RF Rx Instructions: start on day 2 of therapy amlodipine 10 mg tablet 10 mg PO DAILY carvedilol 12.5 mg tablet 12.5 mg PO Q12H hydrocodone-acetaminophen 5-325 mg tablet 1 tab PO Q12H lorazepam 1 mg tablet 1 mg PO Q12H Patient Comments: 1/2-1 tablet twice daily montelukast 10 mg tablet 10 mg PO DAILY omeprazole 40 mg capsule,delayed release(DR/EC) 40 mg PO BID polyethylene glycol 3350 [ClearLax] 17 gram/dose powder 17 g PO DAILY PRN (Reason: constipation) potassium chloride [Klor-Con M20] 20 mEq tablet,ER particles/crystals 20 meq PO DAILY pramipexole 0.5 mg tablet 0.5 mg PO QPM rosuvastatin 5 mg tablet 5 mg PO QPM tizanidine 4 mg tablet 8 mg PO QPM valsartan 40 mg tablet 40 mg PO DAILY aspirin 81 mg capsule 81 mg PO DAILY sennosides [senna] 8.6 mg tablet 17.2 mg PO BID Rx Instructions: 2 tabs BID isosorbide mononitrate 30 mg Tablet Extended Release 24 Hr 30 mg PO QD Qty: 30 11RF Eliquis 2.5 mg tablet 2.5 mg PO BID Qty: 60 11RF furosemide [Lasix] 20 mg tablet 20 mg PO DAILY Qty: 30 11RF Print Language: Grenadian Instructions: Upper Respiratory Infection (ED) Referrals: Ganesh Samuel MD [Primary Care Provider, Family Practice] - 1 week
[2025-01-23 15:47] LABS: Hematocrit 41.3 % (36.0-48.0); Hemoglobin 14.1 g/dL (12.0-16.0); Immature Granulocytes Abs Auto 0.17 10^3/uL (0.00-0.03); Immature Granulocytes Pct Auto 1.3 % (0.0-0.5); Lymphocytes Absolute Auto 2.7 10^3/uL (1.2-3.8); Mean Corpuscular HGB Conc 34.1 g/dL (29.9-35.2); Mean Corpuscular Hemoglobin 34.3 pg (26.7-34.0); Mean Corpuscular Volume 100.5 fL (81.0-99.0); Platelet Count 255 10^3/uL (150-450); Red Blood Count 4.11 10^6/uL (4.20-5.40); White Blood Count 13.0 10^3/uL (4.0-11.0)
--- OUTSIDE RECORDS SUMMARY | 2025-01-23 16:06 | XMS_ITS | CCD ---
Author Organization [facility] CliniSyvt Care Team Providers Care Transportation Aide Name Role Phone UNKNOWN, PHYSICIAN Referring Unavailable BRIDGER MONTANA Attending Unavailable KIM ARCE Admitting Unavailable IRISH FAUSTIN Primary Care Unavailable RAMIN, DR COBURN Admitting Unavailable WHITLEYY, DR CBOURN Attending Unavailable WHITLEYY, DR COBURN Primary Care [...] Unavailable MD Irish Faustin Primary Care Provider [phone] MD Chema Milner Admit Provider MD Frida De La Cruz Attending Provider [phone] MD Stiven Zaman Admit Provider MD Stiven Zaman Attending Provider [phone] PARISA Santillan Other Provider Unavailable PARISA Calle [...] Jose Martin Lou Other Provider MD Olesya Toht Other Provider DO Demetrius Gutierrez Other Provider [...] Toth Consulting Unavailable Demetrius Gutierrez Consulting Unavailable Hortencai Daigle Consulting Unavailable Alex Dominguez Consulting Unavailable [...] VICENTE Referring Unavailable SARABJIT VICENTE Referring Unavailable SAMANTHA LAMB Attending Unavailable SARABJIT VICENTE Referring Unavailable SARABJIT VICENTE Referring Unavailable Allergies Allergy Classification Reported Allergen(s) Allergy Type Date of Onset Reaction(s) Facility (1 source) Adhesive agent Drug allergy (disorder) 9 [facility] Repository (3 sources) Ciprofloxacin Drug Allergy 6 [facility] (5 sources) Codeine; Translations: [CODEINE] Drug Allergy 9 Itching [facility] Rep[facility] (1 source) paper tape; Translations: [paper tape] Propensity to adverse reactions (disorder) 2 [facility] (1 source) Desonide Drug Allergy [facility] Repository (4 sources) Ciprofloxacin; Translations: [ciprofloxacin] Drug Allergy 2 Redness of Skin [facility] (1 source) Codeine Drug Allergy 2 [facility] Repository (1 source) Amitriptyline; Translations: [AMITRIPTYLINE] Drug Allergy 4 [facility] Rep[facility] (1 source) rosuvastatin; Translations: [ROSUVASTATIN] Drug Allergy 5 [facility] Rep[facility] (1 source) ADHESIVE TAPE-SILICONES; Translations: [ADHESIVE TAPE-SILICONES] Propensity to adverse reactions to drug (disorder) 5 [facility] Rep[facility] Medications Current Medications Medication Drug [...] June 16, 2022 10:52am polyethylene glycol 3350 65571 mg powder for oral solution (3 sources) [...] bedtime Pramipexole Active 0.5 MG PO Bedtime 30 June 24, 2022 12:00am psyllium 3400 mg powder for oral suspension (3 sources) Start: 06-14-2022 End: 06-24-2022 Psyllium Husk (Aspartame) (Metamucil Fiber Singles) 3.4 gram Powder In Packet Active 1 PACKET PO Twice daily 30 June 24, 2022 12:00am Sennosides (Senna Lax) [...] Start: 06-14-2022 take 2 tablets by mo uth twice daily Sennosides (Senna Lax) 8.6 mg [...] (2 sources) Start: 06-09-2022 End: 06-16-2022 take 86685 ug by mouth once daily Biotin Discontinued 29740 MCG PO Daily June 09, 2022 12:00am June 16, 2022 10:52am Magnesium Chloride (2 sources) Start: 06-09-2022 End: 06-16-2022 take 64 mg by mouth once daily Magnesium Chloride Discontinued 64 MG PO Daily June 09, 2022 12:00am June 16, 2022 10:52am [place]-3 Fatty Acids-Vitamin E (Fish Oil) 1,000 mg Capsule (2 sources) Start: 06-09-2022 End: 06-16-2022 take 1 capsule by mouth once daily [place]-3 Fatty Acids-Vitamin E (Fish Oil) 1,000 mg [...] disease (3 sources) Atherosclerotic heart disease of [place] coronary artery without angina pectoris; 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] Onset: 3 Chronic [...] 3 Chronic Other aftercare (1 source) Other care home (current) drug therapy; Translations: [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] Onset: 3 Episodic Other aftercare (1 source) 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; Translations: [PENITENTIARY CURRENT USE OF ASPIRIN] Onset: 3 Episodic [...] Test Name Value Interpretation Reference Range Facility Orders Onlyon 11-07-2024 Orders Only [id number] Abdirahman Gomez 1940 F Date Provider Department Center 11/07/2024 Toby-SARABJIT VICENTE [facility] CARD [facility] Family History Problem Relation Age of Onset Aneurysm Mother Alcohol abuse Father Family Status - Relation Status Age at Mother Father Normal [facility] Office Visiton 04-17-2024 Follow-up visit [id number] Abdirahman Gomez 1940 F Date Provider Department Center 04/17/2024 271-SAMANTHA LAMB CARD [facility] Family History Problem Relation Age of Onset Aneurysm Mother Alcohol abuse Father Family Status - Relation Status Age at Mother Father Level of Service:23439 ME OFFICE/OUTPATIENT ESTABLISHED LOW MDM 20 MIN Normal [facility] Basic Metabolic Panelon 06-14 Anion gap [Moles/Vol] 16.1 mmol/L High 6.0-15.0 [facility] Comment on above: Performed By: #### C ZULEIMA, BMP #### [facility] [address] Calcium [Mass/Vol] 9.4 mg/dL Normal 8.2-10.2 [facility] Comment on above: Performed By: #### C BC, BMP #### [facility] [address] Chloride [Moles/Vol] 102 mmol/L Normal 95-114 [facility] Comment on above: Performed By: #### C BC, BMP #### [facility] [address] CO2 [Moles/Vol] 20.7 mmol/L Low 22.0-30.0 [facility] Comment on above: Performed By: #### C BC, BMP #### [address] Creatinine [Mass/Vol] 0.84 mg/dL Normal 0.44-1.03 [facility] Comment on above: Performed By: #### C BC, BMP #### [address] Creatinine Clr Calc Pharmacy 47.21 [facility] Comment on above: Result Comment: PERF ORMED BY: [place] [address] PATHOLOGIST [employer] CHIEF PILAR VILLARREAL M.D. Performed By: #### C BC, BMP #### [address] Estimated GFR ( Rose > 60 [facility] Comment on above: Result Comment: GFR estimated reference range: According to KDOQI guidelines, <60 ml/min/1.73m2 is sufficient to diagnose a patient with chronic kidney disease. Performed By: #### C BC, BMP #### [address] Estimated GFR (Non- Am > 60 [facility] Comment on above: Performed By: #### C BC, BMP #### [address] Glucose [Mass/Vol] 104 mg/dL High 70-100 [facility] Comment on above: Result Comment: [place] Glucose Reference Range is dependent on time and content of last meal. Glucose of more than 200 mg/dL in a nonstressed, ambulatory subject supports the diagnosis of Diabetes Mellitus. ADA recommended reference range Performed By: #### C BC, BMP #### [facility] [address] Potassium [Moles/Vol] 3.8 mmol/L Normal 3.5-5.1 [facility] Comment on above: Performed By: #### C BC, BMP #### [facility] [address] Sodium [Moles/Vol] 135 mmol/L Low 136-146 [facility] Comment on above: Performed By: #### C BC, BMP #### [facility] [address] Urea nitrogen [Mass/Vol] 10 mg/dL Normal 9-23 [facility] Comment on above: Performed By: #### C BC, BMP #### [facility] [address] Basophils Auto (Bld) [#/Vol] Ordered By: Stiven Zaman on 06-23-2022 Basophils (Bld) [#/Vol] 0.1 10*3/uL 0.0-0.2 [facility] Basophils/100 WBC Auto (Bld) Ordered By: Stiven Zaman on 06-23-2022 Basophils/100 WBC (Bld) 0.8 % . [facility] Complete Blood Count Auto Di ffon 06-23-2022 Basophils (Bld) [#/Vol] 0.1 10*3/uL Normal 0.0-0.2 [facility] Comment on above: Result Comment: PERF ORMED BY: [place] [address] PATHOLOGIST [employer] CHIEF PILAR VILLARREAL M.D. Performed By: #### C BC, BMP #### [facility] [address] [place] [address] Basophils/100 WBC (Bld) 0.8 % Normal . [facility] Comment on above: Performed By: #### C BC, BMP #### [facility] [address] Eosinophils (Bld) [#/Vol] 0.3 10*3/uL Normal 0.0-0.45 [facility] Comment on above: Performed By: #### C BC, BMP #### [facility] [address] [place] [address] [place] Eosinophils/100 WBC (Bld) 3.2 % Normal . [facility] Comment on above: Performed By: #### C BC, BMP #### [facility] [address] Erythrocyte distribution width (RBC) [Ratio] 13.3 % Normal 11.9-15.3 [facility] Comment on above: Performed By: #### C BC, BMP #### [facility] [address] Hematocrit (Bld) [Volume fraction] 38.3 % Normal 34.0-46.4 [facility] Comment on above: Performed By: #### C BC, BMP #### [facility] [address] Hemoglobin (Bld) [Mass/Vol] 12.8 g/dL Normal 11.8-15.4 [facility] Comment on above: Performed By: #### C BC, BMP #### [facility] [address] Lymphocytes (Bld) [#/Vol] 2.6 10*3/uL Normal 1.00-4.8 [facility] Comment on above: Performed By: #### C BC, BMP #### [facility] [address] [place] [address] [place] Lymphocytes/100 WBC (Bld) 31.9 % Normal . [facility] Comment on above: Performed By: #### C BC, BMP #### [facility] [address] [place] [address] [place] MCH (RBC) [Entitic mass] 34.1 pg Normal 24.7-34.3 [facility] Comment on above: Performed By: #### C BC, BMP #### [facility] [address] MCV (RBC) [Entitic vol] 102.2 fL High 80-100 [facility] Comment on above: Performed By: #### C BC, BMP #### [facility] [address] [place] [id number] [place] Mean Corpuscular HGB Conc 33.4 g/dL Normal 32.0-35.0 [facility] Comment on above: Performed By: #### C BC, BMP #### [facility] [address] [place] [address] [place] Monocytes (Bld) [#/Vol] 0.7 10*3/uL Normal 0.0-0.8 [facility] Comment on above: Performed By: #### C BC, BMP #### [facility] [address] [place] [id number] [place] Monocytes/100 WBC (Bld) 8.4 % Normal . [facility] Comment on above: Performed By: #### C BC, BMP #### [facility] [address] [place] [address] [place] Neutrophils (Bld) [#/Vol] 4.5 10*3/uL Normal 1.8-7.7 [facility] Comment on above: Performed By: #### C BC, BMP #### [facility] [address] [place] [id number] [place] Neutrophils/100 WBC (Bld) 55.7 % Normal . [facility] Comment on above: Performed By: #### C BC, BMP #### [facility] [address] [place] [id number] [place] NRBC% 0.1 /100{WBC} Normal 0-0.5 [facility] Comment on above: Performed By: #### C BC, BMP #### [facility] [address] [place] [id number] [place] Platelet mean volume (Bld) [Entitic vol] 8.0 fL Normal 6.3-10.7 [facility] Comment on above: Performed By: #### C BC, BMP #### [facility] [address] [place] [id number] [place] Platelets (Bld) [#/Vol] 272 10*3/uL Normal 150-450 [facility] Comment on above: Performed By: #### C BC, BMP #### [facility] [address] [place] [id number] [facility] RBC (Bld) [#/Vol] 3.75 10*6/uL Normal 3.60-5.00 [facility] Comment on above: Performed By: #### C BC, BMP #### [facility] [address] [place] [id number] [place] WBC (Bld) [#/Vol] 8.1 10*3/uL Normal 3.8-11.6 [facility] Comment on above: Performed By: #### C BC, BMP #### [facility] [address] Creatinine and Glomerular fi ltration rate.predicted panel (S/P/Bld)Ordered By: Stiven Zaman on 06-23-2022 Creatinine [Mass/Vol] 0.84 mg/dL 0.44-1.03 [facility] Eosinophils Auto (Bld) [#/Vo l]Ordered By: Stiven Zaman on 06-23-2022 Eosinophils (Bld) [#/Vol] 0.3 10*3/uL 0.0-0.45 [facility] Eosinophils/100 WBC Auto (Bl d)Ordered By: Stiven Zaman on 06-23-2022 Eosinophils/100 WBC (Bld) 3.2 % . [facility] Erythrocyte distribution wid th Auto (RBC) [Ratio]Ordered By: Stiven Zaman on 06-23-2022 Erythrocyte distribution width (RBC) [Ratio] 13.3 % 11.9-15.3 [facility] Estimated glomerular filtrat ion rate (GFR) non- AmericanOrdered By: Stiven Zaman on 06-23-2022 GFR/1.73 sq M.predicted among non-blacks MDRD (S/P/Bld) [Vol rate/Area] > 60 mL/Min [facility] Hematocrit Auto (Bld) [Volum e fraction]Ordered By: Stiven Zaman on 06-23-2022 Hematocrit (Bld) [Volume fraction] 38.3 % 34.0-46.4 [facility] Hemoglobin [Mass/volume] in BloodOrdered By: Stiven Zaman on 06-23-2022 Hemoglobin (Bld) [Mass/Vol] 12.8 g/dL 11.8-15.4 [facility] Leukocytes [#/volume] correc zoe for nucleated erythrocytes in Blood by Automated counOrdered By: Stiven Zaman on 06-23-2022 WBC corrected for nucl RBC Auto (Bld) [#/Vol] 8.1 10*3/uL 3.8-11.6 [facility] Lymphocytes Auto (Bld) [#/Vo l]Ordered By: Stiven Zaman on 06-23-2022 Lymphocytes (Bld) [#/Vol] 2.6 10*3/uL 1.00-4.8 [facility] Lymphocytes/100 WBC Auto (Bl d)Ordered By: Stiven Zaman on 06-23-2022 Lymphocytes/100 WBC (Bld) 31.9 % . [facility] MCH Auto (RBC) [Entitic mass ]Ordered By: Stiven Zaman on 06-23-2022 MCH (RBC) [Entitic mass] 34.1 pg 24.7-34.3 [facility] MCHC Auto (RBC) [Mass/Vol]Or dered By: Stiven Zaman on 06-23-2022 MCHC (RBC) [Mass/Vol] 33.4 g/dL 32.0-35.0 [facility] MCV Auto (RBC) [Entitic vol] Ordered By: Stiven Zaman on 06-23-2022 MCV (RBC) [Entitic vol] 102.2 fL 80-100 [facility] Monocytes Auto (Bld) [#/Vol] Ordered By: Stiven Zaman on 06-23-2022 Monocytes (Bld) [#/Vol] 0.7 10*3/uL 0.0-0.8 [facility] Monocytes/100 WBC Auto (Bld) Ordered By: Stiven Zaman on 06-23-2022 Monocytes/100 WBC (Bld) 8.4 % . [facility] Neutrophils Auto (Bld) [#/Vo l]Ordered By: Stiven Zaman on 06-23-2022 Neutrophils (Bld) [#/Vol] 4.5 10*3/uL 1.8-7.7 [facility] Neutrophils/100 WBC Auto (Bl d)Ordered By: Stiven Zaman on 06-23-2022 Neutrophils/100 WBC (Bld) 55.7 % . [facility] No Panel InformationOrdered By: Stiven Zaman on 06-23-2022 Estimated GFR () > 60 mL/Min [facility] Comment on above: GFR estimated refere nce range: According to KDOQI guidelines, <60 ml/min/1.73m2 is sufficient to diagnose a patient with chronic kidney disease. Pharmacy Creatinine Clearance (Chem 47.21 [facility] Nucleated erythrocytes [Pres ence] in Blood by Automated countOrdered By: Stiven Zaman on 06-23-2022 Nucleated RBC Auto Ql (Bld) 0.1 /100{WBC} 0-0.5 [facility] Platelet mean volume Auto (B ld) [Entitic vol]Ordered By: Stiven Zaman on 06-23-2022 Platelet mean volume (Bld) [Entitic vol] 8.0 fL 6.3-10.7 [facility] Platelets Auto (Bld) [#/Vol] Ordered By: Stiven Zaman on 06-23-2022 Platelets (Bld) [#/Vol] 272 10*3/uL 150-450 [facility] RBC Auto (Bld) [#/Vol]Ordere d By: Stiven Zaman on 06-23-2022 RBC (Bld) [#/Vol] 3.75 10*6/uL 3.60-5.00 [facility] Serum or plasma anion gap de terminationOrdered By: Stiven Zaman on 06-23-2022 Anion gap [Moles/Vol] 16.1 mmol/L 6.0-15.0 [facility] Serum or plasma calcium jerrod urement (mass/volume)Ordered By: Stiven Zaman on 06-23-2022 Calcium [Mass/Vol] 9.4 mg/dL 8.2-10.2 [facility] Serum or plasma chloride salma surement (moles/volume)Ordered By: Stiven Zaman on 06-23-2022 Chloride [Moles/Vol] 102 mmol/L 95-114 [facility] Serum or plasma glucose jerrod urement (mass/volume)Ordered By: Stiven Zaman on 06-23-2022 Glucose [Mass/Vol] 104 mg/dL 70-100 [facility] Comment on above: ADA recommended refe rence rangeRandom Glucose Reference Range is dependent on time and content of last meal. Glucose of more than 200 mg/dL in a nonstressed, ambulatory subject supports the diagnosis of Diabetes Mellitus. Serum or plasma potassium me asurement (moles/volume)Ordered By: Stiven Zaman on 06-23-2022 Potassium [Moles/Vol] 3.8 mmol/L 3.5-5.1 [facility] Serum or plasma sodium measu rement (moles/volume)Ordered By: Stiven Zaman on 06-23-2022 Sodium [Moles/Vol] 135 mmol/L 136-146 [facility] Serum or plasma total carbon dioxide measurement (moles/volume)Ordered By: Stiven Zaman on 06-23-2022 CO2 [Moles/Vol] 20.7 mmol/L 22.0-30.0 [facility] Serum or plasma urea nitroge n measurement (mass/volume)Ordered By: Stiven Zaman on 06-23-2022 Urea nitrogen [Mass/Vol] 10 mg/dL 9-23 [facility] WBC Auto (Bld) [#/Vol]Ordere d By: Stiven Zaman on 06-23-2022 WBC (Bld) [#/Vol] 8.1 10*3/uL 3.8-11.6 [facility] Glucose Glucometer (BldC) [M ass/Vol]Ordered By: Stiven Zaman on 06-21-2022 Glucose [Mass/Vol] 108 mg/dL [facility] Comment on above: Random Glucose Refer ence Range is dependent on time and content of last meal. Glucose of more than 200 mg/dL in a nonstressed, ambulatory subject supports the diagnosis of Diabetes Mellitus. Glucose Poct Glucometerson 0 06-21-2022 Glucose [Mass/Vol] 108 mg/dL Normal [facility] Comment on above: Result Comment: [place] om Glucose Reference Range is dependent on time and content of last meal. Glucose of more than 200 mg/dL in a nonstressed, ambulatory subject supports the diagnosis of Diabetes Mellitus. PERFORMED BY: [facility] [place] [address] PATHOLOGIST [employer] CHIEF PILAR VILLARREAL M.D. Performed By: #### G LULS #### Point of Care testing , Glucose Poct Glucometerson 0 06-20-2022 Glucose [Mass/Vol] 93 mg/dL Normal [facility] Comment on above: Result Comment: [place] om Glucose Reference Range is dependent on time and content of last meal. Glucose of more than 200 mg/dL in a nonstressed, ambulatory subject supports the diagnosis of Diabetes Mellitus. PERFORMED BY: [place] [address] PATHOLOGIST [employer] CHIEF PILAR VILLARREAL M.D. Performed By: #### L IPID, A1C [facility] eA #### [address] Glucose [Mass/Vol] 107 mg/dL Normal [facility] Comment on above: Result Comment: [place] Glucose Reference Range is dependent on time and content of last meal. Glucose of more than 200 mg/dL in a nonstressed, ambulatory subject supports the diagnosis of Diabetes Mellitus. PERFORMED BY: [place] [address] PATHOLOGIST [employer] CHIEF PILAR VILLARREAL M.D. Performed By: #### G LULS #### Point of Care testing , Glucose Poct Glucometerson 0 06-19-2022 Commemt1 [facility] Comment on above: Result Comment: Glu2 : WILL NOTIFY DR/RN Performed By: #### G LULS #### Point of Care testing , Commemt2 Cleaned Meter [facility] Comment on above: Result Comment: PERF ORMED BY: [place] [address] PATHOLOGIST [employer] CHIEF PILAR VILLARREAL M.D. Performed By: #### G LULS #### Point of Care testing , Glucose [Mass/Vol] 118 mg/dL Normal [facility] Comment on above: Result Comment: [place] om Glucose Reference Range is dependent on time and content of last meal. Glucose of more than 200 mg/dL in a nonstressed, ambulatory subject supports the diagnosis of Diabetes Mellitus. Performed By: #### G LULS #### Point of Care testing , Glucose [Mass/Vol] 97 mg/dL Normal [facility] Comment on above: Result Comment: [facility] Glucose Reference Range is dependent on time and content of last meal. Glucose of more than 200 mg/dL in a nonstressed, ambulatory subject supports the diagnosis of Diabetes Mellitus. PERFORMED BY: [place] [address] PATHOLOGIST [employer] CHIEF PILAR VILLARREAL M.D. Performed By: #### G LULS #### Point of Care testing , No Panel InformationOrdered By: Stiven Zaman on 06-19-2022 Bedside Glucose #2 Comment Cleaned meter [facility] Bedside Glucose Comment See comment [facility] Comment on above: Glu2: WILL NOTIFY DR /RN XR hip LT min 2V(w/wo pelvis )*on 06-19-2022 XR hip LT min 2V(w/wo pelvis)* [facility] [place] [address] [place] [address] XRay Report Signed Patient: Abdirahman Gomez MR#: [id number] : 1940 Acct:[id number] Age/Sex: 81 / F ADM Date: 06/16/22 Loc: Room: [address] [place] [address] Type: ADM IN Attending Dr: Stiven Zaman [...] Beasley Jr., D.O.06/19/2022 3:01 PM Dictation Location: [place] [address] Transcribed By: [facility] 06/19/22 1501 Dictated By: Stiven Beasley Jr, DO 06/19/22 1500 Signed By: 06/19/22 1501 Normal [facility] Glucose Poct Glucometerson 0 06-18-2022 Commemt1 Glu2: Cleaned Meter Normal [facility] Comment on above: Result Comment: PERF ORMED BY: [address] [address] PATHOLOGIST [employer] CHIEF PILAR VILLARREAL M.D. Performed By: #### G LULS #### Point of Care testing , Glucose [Mass/Vol] 105 mg/dL Normal [facility] Comment on above: Result Comment: [place] om Glucose Reference Range is dependent on time and content of last meal. Glucose of more than 200 mg/dL in a nonstressed, ambulatory subject supports the diagnosis of Diabetes Mellitus. Performed By: #### G LULS #### Point of Care testing , Glucose [Mass/Vol] 107 mg/dL Normal [facility] Comment on above: Result Comment: [place] om Glucose Reference Range is dependent on time and content of last meal. Glucose of more than 200 mg/dL in a nonstressed, ambulatory subject supports the diagnosis of Diabetes Mellitus. PERFORMED BY: [address] [address] PATHOLOGIST [employer] CHIEF PILAR VILLARREAL M.D. Performed By: #### C BC, BMP #### [facility] [address] [place], [place] [id number] [place] US carotid doppler BIon US carotid doppler BI [facility] [place] [address] [place] [id number] Ultrasound Report Signed Patient: Abdirahman Gomez MR#: [id number] : 1940 Acct:[id number] Age/Sex: 81 / F ADM Date: 06/09/22 Loc: Room: [address] [place] [address] Type: DIS IN Attending Dr: Frida De [...] Bebo Howell MD06/18/2022 4:50 PM Dictation Location: [place] [address] Tech: Margaret Rust Transcribed By: CHANDRAKANT 06/18/221649 Dictated By: Bebo Howell MD 06/18/221647 Signed By: 06/18/221649 Normal [facility] Albumin [Mass/volume] in Ser um or PlasmaOrdered By: Stiven Zaman on 06-17-2022 Albumin [Mass/Vol] 3.3 g/dL 3.2-5.5 [facility] Complete Blood Count Auto Di ffon 06-17-2022 Basophils (Bld) [#/Vol] 0.2 10*3/uL Normal 0.0-0.2 [facility] Comment on above: Result Comment: PERF ORMED BY: [facility] [address] [place] [address] PATHOLOGIST [employer] CHIEF PILAR VILLARREAL M.D. Performed By: #### G LULS #### Point of Care testing , Basophils/100 WBC (Bld) 1.4 % Normal . [facility] Comment on above: Performed By: #### G LULS #### Point of Care testing , Eosinophils (Bld) [#/Vol] 0.3 10*3/uL Normal 0.0-0.45 [facility] Comment on above: Performed By: #### G LULS #### Point of Care testing , Eosinophils/100 WBC (Bld) 2.4 % Normal . [facility] Comment on above: Performed By: #### G LULS #### Point of Care testing , Erythrocyte distribution width (RBC) [Ratio] 13.2 % Normal 11.9-15.3 [facility] [facility] Comment on above: Performed By: #### G LULS #### Point of Care testing , Hematocrit (Bld) [Volume fraction] 38.9 % Normal 34.0-46.4 [facility] Comment on above: Performed By: #### G LULS #### Point of Care testing , Hemoglobin (Bld) [Mass/Vol] 12.8 g/dL Normal 11.8-15.4 [facility] Comment on above: Performed By: #### G LULS #### Point of Care testing , Lymphocytes (Bld) [#/Vol] 3.2 10*3/uL Normal 1.00-4.8 [facility] Comment on above: Performed By: #### G LULS #### Point of Care testing , Lymphocytes/100 WBC (Bld) 29.1 % Normal . [facility] Comment on above: Performed By: #### G LULS #### Point of Care testing , MCH (RBC) [Entitic mass] 33.5 pg Normal 24.7-34.3 [facility] Comment on above: Performed By: #### G LULS #### Point of Care testing , MCV (RBC) [Entitic vol] 102.3 fL High 80-100 [facility] Comment on above: Performed By: #### G LULS #### Point of Care testing , Mean Corpuscular HGB Conc 32.8 g/dL Normal 32.0-35.0 [facility] Comment on above: Performed By: #### G LULS #### Point of Care testing , Monocytes (Bld) [#/Vol] 1.0 10*3/uL High 0.0-0.8 [facility] Comment on above: Performed By: #### G LULS #### Point of Care testing , Monocytes/100 WBC (Bld) 9.4 % Normal . [facility] Comment on above: Performed By: #### G LULS #### Point of Care testing , Neutrophils (Bld) [#/Vol] 6.3 10*3/uL Normal 1.8-7.7 [facility] Comment on above: Performed By: #### G LULS #### Point of Care testing , Neutrophils/100 WBC (Bld) 57.7 % Normal . [facility] Comment on above: Performed By: #### G LULS #### Point of Care testing , NRBC% 0.0 /100{WBC} Normal 0-0.5 [facility] Comment on above: Performed By: #### G LULS #### Point of Care testing , Platelet mean volume (Bld) [Entitic vol] 7.5 fL Normal 6.3-10.7 [facility] Comment on above: Performed By: #### Ginna MALONE #### Point of Care testing , Platelets (Bld) [#/Vol] 309 10*3/uL Normal 150-450 [facility] Comment on above: Performed By: #### Ginna MALONE #### Point of Care testing , RBC (Bld) [#/Vol] 3.81 10*6/uL Normal 3.60-5.00 [facility] Comment on above: Performed By: #### Ginna MALONE #### Point of Care testing , WBC (Bld) [#/Vol] 10.9 10*3/uL Normal 3.8-11.6 [facility] Comment on above: Performed By: #### Ginna MALONE #### Point of Care testing , Comprehensive Metabolic Pane jazmin 06-17-2022 Albumin [Mass/Vol] 3.3 g/dL Normal 3.2-5.5 [facility] Comment on above: Performed By: #### Ginna MALONE #### Point of Care testing , Albumin/Globulin [Mass ratio] 0.9 {ratio} Normal [facility] Comment on above: Performed By: #### Ginna MALONE #### Point of Care testing , ALP [Catalytic activity/Vol] 76 U/L Normal 32-92 [facility] Comment on above: Performed By: #### Ginna MALONE #### Point of Care testing , ALT [Catalytic activity/Vol] 39 U/L Normal 10-60 [facility] Comment on above: Performed By: #### Ginna MALONE #### Point of Care testing , Anion gap [Moles/Vol] 13.1 mmol/L Normal 6.0-15.0 [facility] Comment on above: Performed By: #### Ginna MALONE #### Point of Care testing , AST [Catalytic activity/Vol] 52 U/L High 10-42 [facility] Comment on above: Performed By: #### Ginna MALONE #### Point of Care testing , Bilirubin [Mass/Vol] 0.5 mg/dL Normal 0.3-1.2 [facility] Comment on above: Performed By: #### G CARLEENLS #### Point of Care testing , Calcium [Mass/Vol] 9.0 mg/dL Normal 8.2-10.2 [facility] Comment on above: Performed By: #### G LULS #### Point of Care testing , Chloride [Moles/Vol] 106 mmol/L Normal 95-114 [facility] Comment on above: Performed By: #### G LULS #### Point of Care testing , CO2 [Moles/Vol] 20.6 mmol/L Low 22.0-30.0 [facility] Comment on above: Performed By: #### G LULS #### Point of Care testing , Creatinine [Mass/Vol] 0.78 mg/dL Normal 0.44-1.03 [facility] Comment on above: Performed By: #### G LULS #### Point of Care testing , Creatinine Clr Calc Pharmacy 50.13 [facility] Comment on above: Performed By: #### G LULS #### Point of Care testing , Estimated GFR ( Rose > 60 [facility] Comment on above: Result Comment: GFR estimated reference range: According to KDOQI guidelines, <60 ml/min/1.73m2 is sufficient to diagnose a patient with chronic kidney disease. Performed By: #### G LULS #### Point of Care testing , Estimated GFR (Non- Am > 60 [facility] Comment on above: Performed By: #### G LULS #### Point of Care testing , Globulin (S) [Mass/Vol] 3.6 g/dL Normal [facility] Comment on above: Performed By: #### G LULS #### Point of Care testing , Glucose [Mass/Vol] 107 mg/dL High 70-100 [facility] Comment on above: Result Comment: [place] Glucose Reference Range is dependent on time and content of last meal. Glucose of more than 200 mg/dL in a nonstressed, ambulatory subject supports the diagnosis of Diabetes Mellitus. ADA recommended reference range Performed By: #### G LULS #### Point of Care testing , Potassium [Moles/Vol] 3.7 mmol/L Normal 3.5-5.1 [facility] Comment on above: Performed By: #### G LULS #### Point of Care testing , Protein [Mass/Vol] 6.9 g/dL Normal 6.1-7.9 [facility] Comment on above: Performed By: #### G LULS #### Point of Care testing , Sodium [Moles/Vol] 136 mmol/L Normal 136-146 [facility] Comment on above: Performed By: #### G LULS #### Point of Care testing , Urea nitrogen [Mass/Vol] 13 mg/dL Normal 9-23 [facility] Comment on above: Performed By: #### G LULS #### Point of Care testing , Globulin Calc (S) [Mass/Vol] Ordered By: Stiven Zaman on 06-17-2022 Globulin (S) [Mass/Vol] 3.6 g/dL [facility] Glucose Poct Glucometerson 0 06-17-2022 Commemt1 [facility] Comment on above: Result Comment: Glu2 : WILL NOTIFY DR/RN Performed By: #### G LULS #### Point of Care testing , Commemt2 Cleaned Meter [facility] Comment on above: Result Comment: PERF ORMED BY: [facility] [address] [place] [address] PATHOLOGIST [employer]IEF PILAR VILLARREAL M.D. Performed By: #### G LULS #### Point of Care testing , Glucose [Mass/Vol] 121 mg/dL Normal [facility] Comment on above: Result Comment: [facility] Glucose Reference Range is dependent on time and content of last meal. Glucose of more than 200 mg/dL in a nonstressed, ambulatory subject supports the diagnosis of Diabetes Mellitus. Performed By: #### G LULS #### Point of Care testing , Glucose [Mass/Vol] 105 mg/dL Normal [facility] Comment on above: Result Comment: [place] Glucose Reference Range is dependent on time and content of last meal. Glucose of more than 200 mg/dL in a nonstressed, ambulatory subject supports the diagnosis of Diabetes Mellitus. PERFORMED BY: [place] [address] PATHOLOGIST [employer]IEF PILAR VILLARREAL M.D. Performed By: #### G LULS #### Point of Care testing , Prealbuminon 06-17-2022 Prealbumin [Mass/Vol] 24.1 mg/dL Normal 18.0-38.0 [facility] Comment on above: Result Comment: PERF ORMED BY: [place] [address] PATHOLOGIST [employer]IEF PILAR VILLARREAL M.D. Performed By: #### L IPID, A1C WTH eA #### [place] [id number] [facility] Protein [Mass/volume] in Ser um or PlasmaOrdered By: Stiven Zaman on 06-17-2022 Protein [Mass/Vol] 6.9 g/dL 6.1-7.9 [facility] Serum or plasma alanine carney otransferase measurement without P-5'-P (enzymatic activiOrdered By: Stiven Zaman on 06-17-2022 ALT No additional P-5'-P [Catalytic activity/Vol] 39 U/L 10-60 [facility] Serum or plasma albumin/glob ulin mass ratioOrdered By: Stiven Zaman on 06-17-2022 Albumin/Globulin [Mass ratio] 0.9 {ratio} [facility] Serum or plasma alkaline ayad sphatase measurement (enzymatic activity/volume)Ordered By: Stiven Zaman on 06-17-2022 ALP [Catalytic activity/Vol] 76 U/L 32-92 [facility] Serum or plasma aspartate am inotransferase measurement (enzymatic activity/volume)Ordered By: Stiven Zaman on 06-17-2022 AST [Catalytic activity/Vol] 52 U/L 10-42 [facility] Serum or plasma prealbumin m easurement (mass/volume)Ordered By: Stiven Zaman on 06-17-2022 Prealbumin [Mass/Vol] 24.1 mg/dL 18.0-38.0 [facility] Serum or plasma total biliru bin measurement (mass/volume)Ordered By: Stiven Zaman on 06-17-2022 Bilirubin [Mass/Vol] 0.5 mg/dL 0.3-1.2 [facility] Basic Metabolic Panelon Anion gap [Moles/Vol] 14.0 mmol/L Normal 6.0-15.0 [facility] Comment on above: Performed By: #### L IPID, [address] eA #### [facility] [address] Calcium [Mass/Vol] 9.5 mg/dL Normal 8.2-10.2 [facility] Comment on above: Performed By: #### L IPID, [address] eA #### [facility] [address] [place] [address] [place] Chloride [Moles/Vol] 102 mmol/L Normal 95-114 [facility] Comment on above: Performed By: #### L IPID, [address] eA #### [facility] [address] [place] [address] [place] CO2 [Moles/Vol] 21.7 mmol/L Low 22.0-30.0 [facility] Comment on above: Performed By: #### L IPID, [address] eA #### [facility] [address] [place] [address] [place] Creatinine [Mass/Vol] 0.83 mg/dL Normal 0.44-1.03 [facility] Comment on above: Performed By: #### L IPID, [address] eA #### [facility] [address] [place] [address] [place] Creatinine Clr Calc Pharmacy 48.32 [facility] Comment on above: Result Comment: PERF ORMED BY: [place] [address] PATHOLOGIST [employer]IE[employer] PILAR VILLARREAL M.D. Performed By: #### L IPID, [address] eA #### [facility] [address] [place] [address] [place] Estimated GFR ( Rose > 60 Normal [facility] Comment on above: Result Comment: GFR estimated reference range: According to KDOQI guidelines, <60 ml/min/1.73m2 is sufficient to diagnose a patient with chronic kidney disease. Performed By: #### L IPID, A1C WT eA #### [address] Estimated GFR (Non- Am > 60 Normal [facility] Comment on above: Performed By: #### L IPID, [address] eA #### [address] Glucose [Mass/Vol] 142 mg/dL High 70-100 [facility] Comment on above: Result Comment: [place] Glucose Reference Range is dependent on time and content of last meal. Glucose of more than 200 mg/dL in a nonstressed, ambulatory subject supports the diagnosis of Diabetes Mellitus. ADA recommended reference range Performed By: #### L IPID, A1C WT eA #### [address] Potassium [Moles/Vol] 3.7 mmol/L Normal 3.5-5.1 [facility] Comment on above: Performed By: #### L IPID, [address] eA #### [address] Sodium [Moles/Vol] 134 mmol/L Low 136-146 [facility] Comment on above: Performed By: #### L IPID, [facility] WT eA #### [address] Urea nitrogen [Mass/Vol] 15 mg/dL Normal 9-23 [facility] Comment on above: Performed By: #### L IPID, A1C WT eA #### [place] [address] [place] Basophils Auto (Bld) [#/Vol] Ordered By: Frida De La Cruz on 06-15-2022 Basophils (Bld) [#/Vol] 0.1 10*3/uL 0.0-0.2 [facility] Basophils/100 WBC Auto (Bld) Ordered By: Frida De La Cruz on 06-15-2022 Basophils/100 WBC (Bld) 1.2 % . [facility] Complete Blood Count Auto Di ffon 06-15-2022 Basophils (Bld) [#/Vol] 0.1 10*3/uL Normal 0.0-0.2 [facility] Comment on above: Result Comment: PERF ORMED BY: [place] [address] PATHOLOGIST [employer] CHIEF PILAR VILLARREAL M.D. Performed By: #### L IPID, A1C WTH eA #### [facility] [address] [place] [address] [place] Basophils/100 WBC (Bld) 1.2 % Normal . [facility] Comment on above: Performed By: #### L IPID, A1C WTH eA #### [facility] [address] [place] [address] [place] Eosinophils (Bld) [#/Vol] 0.3 10*3/uL Normal 0.0-0.45 [facility] Comment on above: Performed By: #### L IPID, A1C WTH eA #### [facility] [address] [place] [address] [place] Eosinophils/100 WBC (Bld) 2.6 % Normal . [facility] Comment on above: Performed By: #### L IPID, A1C WTH eA #### [facility] [address] [place] [address] [place] Erythrocyte distribution width (RBC) [Ratio] 13.7 % Normal 11.9-15.3 [facility] Comment on above: Performed By: #### L IPID, A1C WTH eA #### [facility] [address] [place] [address] [place] Hematocrit (Bld) [Volume fraction] 41.4 % Normal 34.0-46.4 [facility] Comment on above: Performed By: #### L IPID, A1C WTH eA #### [facility] [address] [place] [address] [place] Hemoglobin (Bld) [Mass/Vol] 13.6 g/dL Normal 11.8-15.4 [facility] Comment on above: Performed By: #### L IPID, A1C WT eA #### [address] Lymphocytes (Bld) [#/Vol] 2.9 10*3/uL Normal 1.00-4.8 [facility] Comment on above: Performed By: #### L IPID, A1C WT eA #### [address] Lymphocytes/100 WBC (Bld) 27.7 % Normal . [facility] Comment on above: Performed By: #### L IPID, A1C WT eA #### [address] MCH (RBC) [Entitic mass] 33.9 pg Normal 24.7-34.3 [facility] Comment on above: Performed By: #### L IPID, A1C WT eA #### [address] MCV (RBC) [Entitic vol] 103.3 fL High 80-100 [facility] Comment on above: Performed By: #### L IPID, [address] eA #### [address] Mean Corpuscular HGB Conc 32.8 g/dL Normal 32.0-35.0 [facility] Comment on above: Performed By: #### L IPID, A1C WT eA #### [place] [address] [place] Monocytes (Bld) [#/Vol] 0.7 10*3/uL Normal 0.0-0.8 [facility] Comment on above: Performed By: #### L IPID, A1C WT eA #### [place] [address] [place] Monocytes/100 WBC (Bld) 6.9 % Normal . [facility] Comment on above: Performed By: #### L IPID, A1C WT eA #### [address] [address] [place] Neutrophils (Bld) [#/Vol] 6.6 10*3/uL Normal 1.8-7.7 [facility] Comment on above: Performed By: #### L IPID, [address] eA #### [facility] [address] [place] [address] [place] Neutrophils/100 WBC (Bld) 61.6 % Normal . [facility] Comment on above: Performed By: #### L IPID, [address] eA #### [facility] [address] [place] [address] [place] NRBC% 0.1 /100{WBC} Normal 0-0.5 [facility] Comment on above: Performed By: #### L IPID, [address] eA #### [address] Platelet mean volume (Bld) [Entitic vol] 8.0 fL Normal 6.3-10.7 [facility] Comment on above: Performed By: #### L IPID, [address] eA #### [facility] [address] [place] [address] [place] Platelets (Bld) [#/Vol] 282 10*3/uL Normal 150-450 [facility] Comment on above: Performed By: #### L IPID, [address] eA #### [facility] [address] [place] [address] [place] RBC (Bld) [#/Vol] 4.01 10*6/uL Normal 3.60-5.00 [facility] Comment on above: Performed By: #### L IPID, [address] eA #### [facility] [address] [place] [address] [place] WBC (Bld) [#/Vol] 10.7 10*3/uL Normal 3.8-11.6 [facility] Comment on above: Performed By: #### L IPID, [address] eA #### [facility] [address] [place] [address] [place] Creatinine and Glomerular fi ltration rate.predicted panel (S/P/Bld)Ordered By: Frida De La Cruz on 06-15-2022 Creatinine [Mass/Vol] 0.83 mg/dL 0.44-1.03 [facility] Eosinophils Auto (Bld) [#/Vo l]Ordered By: Frida De La Cruz on 06-15-2022 Eosinophils (Bld) [#/Vol] 0.3 10*3/uL 0.0-0.45 [facility] Eosinophils/100 WBC Auto (Bl d)Ordered By: Frida De La Cruz on 06-15-2022 Eosinophils/100 WBC (Bld) 2.6 % . [facility] Erythrocyte distribution wid th Auto (RBC) [Ratio]Ordered By: Frida De La Cruz on 06-15-2022 Erythrocyte distribution width (RBC) [Ratio] 13.7 % 11.9-15.3 [facility] Estimated glomerular filtrat ion rate (GFR) non- AmericanOrdered By: Frida De La Cruz on 06-15-2022 GFR/1.73 sq M.predicted among non-blacks MDRD (S/P/Bld) [Vol rate/Area] > 60 mL/Min [facility] Hematocrit Auto (Bld) [Volum e fraction]Ordered By: Frida De La Cruz on 06-15-2022 Hematocrit (Bld) [Volume fraction] 41.4 % 34.0-46.4 [facility] Hemoglobin [Mass/volume] in BloodOrdered By: Frida De La Cruz on 06-15-2022 Hemoglobin (Bld) [Mass/Vol] 13.6 g/dL 11.8-15.4 [facility] Leukocytes [#/volume] correc zoe for nucleated erythrocytes in Blood by Automated counOrdered By: Frida De La Cruz on 06-15-2022 WBC corrected for nucl RBC Auto (Bld) [#/Vol] 10.7 10*3/uL 3.8-11.6 [facility] Lymphocytes Auto (Bld) [#/Vo l]Ordered By: Frida De La Cruz on 06-15-2022 Lymphocytes (Bld) [#/Vol] 2.9 10*3/uL 1.00-4.8 [facility] Lymphocytes/100 WBC Auto (Bl d)Ordered By: Frida De La Cruz on 06-15-2022 Lymphocytes/100 WBC (Bld) 27.7 % . [facility] MCH Auto (RBC) [Entitic mass ]Ordered By: Frida De La Cruz on 06-15-2022 MCH (RBC) [Entitic mass] 33.9 pg 24.7-34.3 [facility] MCHC Auto (RBC) [Mass/Vol]Or dered By: Frida De La Cruz on 06-15-2022 MCHC (RBC) [Mass/Vol] 32.8 g/dL 32.0-35.0 [facility] MCV Auto (RBC) [Entitic vol] Ordered By: Frida De La Cruz on 06-15-2022 MCV (RBC) [Entitic vol] 103.3 fL 80-100 [facility] Monocytes Auto (Bld) [#/Vol] Ordered By: Frida De La Cruz on 06-15-2022 Monocytes (Bld) [#/Vol] 0.7 10*3/uL 0.0-0.8 [facility] Monocytes/100 WBC Auto (Bld) Ordered By: Frida De La Cruz on 06-15-2022 Monocytes/100 WBC (Bld) 6.9 % . [facility] Neutrophils Auto (Bld) [#/Vo l]Ordered By: Frida De La Cruz on 06-15-2022 Neutrophils (Bld) [#/Vol] 6.6 10*3/uL 1.8-7.7 [facility] Neutrophils/100 WBC Auto (Bl d)Ordered By: Frida De La Cruz on 06-15-2022 Neutrophils/100 WBC (Bld) 61.6 % . [facility] No Panel InformationOrdered By: Frida De La Cruz on 06-15-2022 Estimated GFR () > 60 mL/Min [facility] Comment on above: GFR estimated refere nce range: According to KDOQI guidelines, <60 ml/min/1.73m2 is sufficient to diagnose a patient with chronic kidney disease. Pharmacy Creatinine Clearance (Chem 48.32 [facility] Nucleated erythrocytes [Pres ence] in Blood by Automated countOrdered By: Frida De La Cruz on 01-02-2023 Nucleated RBC Auto Ql (Bld) 0.1 /100{WBC} 0-0.5 [facility] Platelet mean volume Auto (B ld) [Entitic vol]Ordered By: Frida De La Cruz on 06-15-2022 Platelet mean volume (Bld) [Entitic vol] 8.0 fL 6.3-10.7 [facility] Platelets Auto (Bld) [#/Vol] Ordered By: Frida De La Cruz on 06-15-2022 Platelets (Bld) [#/Vol] 282 10*3/uL 150-450 [facility] RBC Auto (Bld) [#/Vol]Ordere d By: Frida De La Cruz on 06-15-2022 RBC (Bld) [#/Vol] 4.01 10*6/uL 3.60-5.00 [facility] Serum or plasma anion gap de terminationOrdered By: Frida De La Cruz on 06-15-2022 Anion gap [Moles/Vol] 14.0 mmol/L 6.0-15.0 [facility] Serum or plasma calcium jerrod urement (mass/volume)Ordered By: Frida De La Cruz on 06-15-2022 Calcium [Mass/Vol] 9.5 mg/dL 8.2-10.2 [facility] Serum or plasma chloride salma surement (moles/volume)Ordered By: Frida De La Cruz on 06-15-2022 Chloride [Moles/Vol] 102 mmol/L 95-114 [facility] Serum or plasma glucose jerrod urement (mass/volume)Ordered By: Frida De La Cruz on 06-15-2022 Glucose [Mass/Vol] 142 mg/dL 70-100 [facility] Comment on above: ADA recommended refe rence rangeRandom Glucose Reference Range is dependent on time and content of last meal. Glucose of more than 200 mg/dL in a nonstressed, ambulatory subject supports the diagnosis of Diabetes Mellitus. Serum or plasma potassium me asurement (moles/volume)Ordered By: Frida De La Cruz on 06-15-2022 Potassium [Moles/Vol] 3.7 mmol/L 3.5-5.1 [facility] Serum or plasma sodium measu rement (moles/volume)Ordered By: Frida De La Cruz on 06-15-2022 Sodium [Moles/Vol] 134 mmol/L 136-146 [facility] Serum or plasma total carbon dioxide measurement (moles/volume)Ordered By: Frida De La Cruz on 06-15-2022 CO2 [Moles/Vol] 21.7 mmol/L 22.0-30.0 [facility] Serum or plasma urea nitroge n measurement (mass/volume)Ordered By: Frida De La Cruz on 06-15-2022 Urea nitrogen [Mass/Vol] 15 mg/dL 03-06 [facility] WBC Auto (Bld) [#/Vol]Ordere d By: Frida De La Cruz on 06-15-2022 WBC (Bld) [#/Vol] 10.7 10*3/uL 3.8-11.6 [facility] ECG 12 lead ECGon 06-14-2022 ECG 12 lead ECG [facility] [place] [address] Electrocardiograph Report Signed Patient: Abdirahman Gomez MR#: [id number] : 1940 Acct:[id number] Age/Sex: 81 / F ADM Date: 06/09/22 Loc: Room: [address] [place] [address] Type: DIS IN Attending Dr: Frida De [...] Yoav Prado MD 0 06/15/22 0617 Normal [facility] Troponin I High Sensitivityo n 06-14-2022 Troponin I High Sensitivity 906 pg/mL Off scale high 0-15 [facility] Comment on above: Result Comment: Crit ical value result called at 1642 on 06/14/22 PERFORMED BY: [place] [address] PATHOLOGIST [employer]IEF PILAR VILLARREAL M.D. Performed By: #### G LULS #### Point of Care testing , Troponin I.cardiac [Mass/vol ume] in Serum or Plasma by High sensitivity methodOrdered By: Nathaniel Castillo on 06-14-2022 Troponin I.cardiac High sensitivity method [Mass/Vol] 906 pg/mL 0-15 [facility] Comment on above: Critical valueresult calledat 1642 on 06/14/22 A1C with Estimated Average G antoinen 06-13-2022 Glucose [Mass/Vol] 123 mg/dL Normal [facility] Comment on above: Result Comment: PERF ORMED BY: [place] [address] PATHOLOGIST [employer]IE[employer] PILAR VILLARREAL M.D. Performed By: #### L IPID, A1C WT eA #### [facility] [address] [place], [place] [id number] [facility] HbA1c (Bld) [Mass fraction] 5.9 % High 4.3-5.6 [facility] Comment on above: Result Comment: Incr eased risk for diabetes: 5.7 - 6.4 diabetes: >6.4 glycemic control for adults with diabetes: <7.0 Performed By: #### L IPID, A1C WT eA #### [facility] [facility] [address] [place] [address] Cholesterol [Mass/volume] in Serum or PlasmaOrdered By: Nathaniel Castillo on 06-13-2022 Cholesterol [Mass/Vol] 150 mg/dL 140-200 [facility] Comment on above: Chol less than 200 m g/dl low riskChol 201-239 mg/dl borderline riskChol 240 mg/dl and greater high risk Cholesterol in LDL Calc [Mas s/Vol]Ordered By: Nathaniel Castillo on 06-13-2022 Cholesterol in LDL [Mass/Vol] 80 mg/dL 0-100 [facility] Comment on above: LDL ATP III CLASSIFI CATIONLDL less than 100 mg/dL OptimalLDL 100-129 mg/dL Near or above optimalLDL 130-159 mg/dL Borderline highLDL 160-189 mg/dL HighLDL greater than 189 mg/dL Very high Cholesterol in VLDL Calc [Ma ss/Vol]Ordered By: Nathaniel Castillo on 06-13-2022 Cholesterol in VLDL [Mass/Vol] 25 mg/dL [facility] ECG 12 lead ECGon 06-13-2022 ECG 12 lead ECG [facility] [address] [place] [address] Electrocardiograph Report Signed Patient: Abdirahman Gomez MR#: [id number] : 1940 Acct:[id number] Age/Sex: 81 / F ADM Date: 06/09/22 Loc: Room: [address] [place] [address] Type: DIS IN Attending Dr: Frida De La Cruz MD Ordering Provider: Frida De LaC ruz MD Date of Service: 06/13/22 ECG/ECG 12 [...] By Ousmane Epstein DO 06/15 1119 Normal [facility] Glucose mean value [Mass/vol ume] in Blood Estimated from glycated hemoglobinOrdered By: Nathaniel Castillo on 06-13-2022 Average glucose Estimated from glycated hemoglobin (Bld) [Mass/Vol] 123 mg/dL [facility] Hemoglobin A1c percentageOrd ered By: Nathaniel Castillo on 06-13-2022 HbA1c (Bld) [Mass fraction] 5.9 % 4.3-5.6 [facility] Comment on above: Increased risk for d iabetes: 5.7 - 6.4diabetes: >6.4glycemic control for adults with diabetes: <7.0 Lipid Panelon 06-13-2022 Cholesterol [Mass/Vol] 150 mg/dL Normal 140-200 [facility] Comment on above: Result Comment: Chol less than 200 mg/dl low risk Chol 201-239 mg/dl borderline risk Chol 240 mg/dl and greater high risk Performed By: #### L IPID, A1C WT eA #### [facility] [address] Cholesterol in HDL [Mass/Vol] 45 mg/dL Normal 35-85 [facility] Comment on above: Result Comment: HDL CHOL ATP-III CLASSIFICATION Cardiovascular Risk HDL > or equal to 60 mg/dL LOW HDL < 40 mg/dL HIGH Performed By: #### L IPID, A1C WT eA #### [facility] [address] Cholesterol.total/Gabriela sterol in HDL [Mass ratio] 3.3 {ratio} Normal <5.0 [facility] Comment on above: Result Comment: PERF ORMED BY: [place] [address] PATHOLOGIST [employer] CHIEF PILAR VILLARREAL M.D. Performed By: #### L IPID, A1C WT eA #### [facility] [address] [place] [address] [place] LDL Cholesterol,Calculated 80 mg/dL Normal 0-100 [facility] Comment on above: Result Comment: LDL ATP III CLASSIFICATION LDL less than 100 mg/dL Optimal LDL 100-129 mg/dL Near or above optimal LDL 130-159 mg/dL Borderline high LDL 160-189 mg/dL High LDL greater than 189 mg/dL Very high Performed By: #### L IPID, A1C [facility] eA #### [facility] [address] [place] [address] [place] Triglyceride w/Reflex 127 mg/dL Normal 35-149 [facility] Comment on above: Result Comment: TRIG ATP III CLASSIFICATION TRIG less than 150 mg/dL Normal TRIG 150-199 mg/dL Borderline high TRIG 200-500 mg/dL High TRIG greater than 500 mg/dL Very high Standard traceable to the Center for Disease Conrtrol and Prevention (CDC) test method. Performed By: #### L IPID, [address] eA #### [facility] [address] VLDL CHOLESTEROL 25 mg/dL Normal [facility] Comment on above: Performed By: #### L IPID, [address] eA #### [facility] [address] Serum or plasma high density lipoprotein (HDL) cholesterol measurementOrdered By: Nathaniel Castillo on 06-13-2022 Cholesterol in HDL [Mass/Vol] 45 mg/dL 35-85 [facility] Comment on above: HDL CHOL ATP-III CLA SSIFICATION Cardiovascular RiskHDL > or equal to 60 mg/dL LOWHDL < 40 mg/dL HIGH Serum or plasma total choles terol/high density lipoprotein (HDL) cholesterol mass ratOrdered By: Nathaniel Castillo on 06-13-2022 Cholesterol.total/Gabriela sterol in HDL [Mass ratio] 3.3 {ratio} <5.0 [facility] Triglyceride [Mass/volume] i n Serum or PlasmaOrdered By: Nathaniel Castillo on 06-13-2022 Triglyceride [Mass/Vol] 127 mg/dL 35-149 [facility] Comment on above: TRIG ATP III CLASSIF ICATIONTRIG less than 150 mg/dL NormalTRIG 150-199 mg/dL Borderline highTRIG 200-500 mg/dL High TRIG greater than 500 mg/dL Very highStandard traceable to the Center for Disease Conrtrol and Prevention (CDC) test method. MR angio head wo conon 06-12 MR angio head wo con [facility] [place] [address] [place] [address] MRI Report Signed Patient: Abdirahman Gomez MR#: [id number] : 1940 Acct:[id number] Age/Sex: 81 / F ADM Date: 06/09/22 Loc: 3T Room: [address] [place] [address] Type: ADM IN Attending Dr: Nathaniel Castillo MD Copies to: Nathaniel Castillo MD Ordering Provider: Nathaniel Castillo MD Date of Service: 06/12/22 MR/MR angio head wo con: stroke MRA OF THE INTRACRANIAL CIRCULATION TECHNIQUE: 3-D [id number] imaging of the [place] of [place] obtained. HISTORY:LEFT arm weakness. The visualized carotid and the vertebrobasilar system are unremarkable. No abnormality of the anterior, middle and posterior cerebral arteries identified. No arterial occlusion, stenosis or dissection identified. No intracranial aneurysm identified. MR/MR angio head wo con IMPRESSION: UNREMARKABLE MRA OF THE INTRACRANIAL CIRCULATION. Impression dictated by: Mamadou Rodríguez M.D.06/12/2022 1:36 PM Dictation Location: [place] [address] Transcribed By: [facility] 06/12/22 1336 Dictated By: Mamadou Rodríguez DO 06/12/22 1330 Signed By: 06/12/22 1336 [facility] MR head/brain wo con 06-12 MR head/brain wo con [facility] [place] [address] MRI Report Signed Patient: Abdirahman Gomze MR#: [id number] : 1940 Acct:[id number] Age/Sex: 81 / F ADM Date: 06/09/22 Loc: 3T Room: [id number] Type: ADM IN Attending Dr: Nathaniel Castillo [...] 06/12/2022 at 10:01 AM. Impression dictated by: Sitven Beasley Jr., Miguel Ángel06/12/2022 10:02 AM Dictation Location: [place] [address] Transcribed By: [facility] 06/12/22 1002 Dictated By: Stiven Beasley Jr, DO 06/12/22 0950 Signed By: 06/12/22 1002 Normal [facility] Complete Blood Count Auto Di ffon 06-11-2022 Basophils (Bld) [#/Vol] 0.1 10*3/uL Normal 0.0-0.2 [facility] Comment on above: Result Comment: PERF ORMED BY: [facility] [address] [place] [address] PATHOLOGIST [employer] CHIEF PILAR VILLARREAL M.D. Performed By: #### G LULS #### Point of Care testing , Basophils/100 WBC (Bld) 0.5 % Normal . [facility] Comment on above: Performed By: #### G LULS #### Point of Care testing , Eosinophils (Bld) [#/Vol] 0.1 10*3/uL Normal 0.0-0.45 [facility] Comment on above: Performed By: #### G LULS #### Point of Care testing , Eosinophils/100 WBC (Bld) 1.2 % Normal . [facility] Comment on above: Performed By: #### G LULS #### Point of Care testing , Erythrocyte distribution width (RBC) [Ratio] 13.6 % Normal 11.9-15.3 [facility] Comment on above: Performed By: #### G CARLEENLS #### Point of Care testing , Hematocrit (Bld) [Volume fraction] 37.7 % Normal 34.0-46.4 [facility] Comment on above: Performed By: #### G LULS #### Point of Care testing , Hemoglobin (Bld) [Mass/Vol] 12.4 g/dL Normal 11.8-15.4 [facility] Comment on above: Performed By: #### G CARLEENLS #### Point of Care testing , Lymphocytes (Bld) [#/Vol] 2.8 10*3/uL Normal 1.00-4.8 [facility] Comment on above: Performed By: #### G CARLEENLS #### Point of Care testing , Lymphocytes/100 WBC (Bld) 24.1 % Normal . [facility] Comment on above: Performed By: #### G CARLEENLS #### Point of Care testing , MCH (RBC) [Entitic mass] 34.5 pg High 24.7-34.3 [facility] Comment on above: Performed By: #### G CARLEENLS #### Point of Care testing , MCV (RBC) [Entitic vol] 104.5 fL High 80-100 [facility] Comment on above: Performed By: #### G CARLEENLS #### Point of Care testing , Mean Corpuscular HGB Conc 33.0 g/dL Normal 32.0-35.0 [facility] Comment on above: Performed By: #### G LULS #### Point of Care testing , Monocytes (Bld) [#/Vol] 1.0 10*3/uL High 0.0-0.8 [facility] Comment on above: Performed By: #### G LULS #### Point of Care testing , Monocytes/100 WBC (Bld) 9.1 % Normal . [facility] Comment on above: Performed By: #### G CARLEENLS #### Point of Care testing , Neutrophils (Bld) [#/Vol] 7.4 10*3/uL Normal 1.8-7.7 [facility] Comment on above: Performed By: #### G LULS #### Point of Care testing , Neutrophils/100 WBC (Bld) 65.1 % Normal . [facility] Comment on above: Performed By: #### G LULS #### Point of Care testing , NRBC% 0.1 /100{WBC} Normal 0-0.5 [facility] Comment on above: Performed By: #### G LULS #### Point of Care testing , Platelet mean volume (Bld) [Entitic vol] 8.0 fL Normal 6.3-10.7 [facility] Comment on above: Performed By: #### G LULS #### Point of Care testing , Platelets (Bld) [#/Vol] 206 10*3/uL Normal 150-450 [facility] Comment on above: Performed By: #### G CARLEENLS #### Point of Care testing , RBC (Bld) [#/Vol] 3.61 10*6/uL Normal 3.60-5.00 [facility] Comment on above: Performed By: #### G LULS #### Point of Care testing , WBC (Bld) [#/Vol] 11.4 10*3/uL Normal 3.8-11.6 [facility] Comment on above: Performed By: #### G LULS #### Point of Care testing , ECG 12 lead ECGon 06-11-2022 ECG 12 lead ECG [facility] [place] [address] Electrocardiograph Report Signed Patient: Abdirahman Gomez MR#: [id number] : 1940 Acct:[id number] Age/Sex: 81 / F ADM Date: 06/09/22 Loc: Room: [address] [place] [address] Type: DIS IN Attending Dr: Frida De [...] By Yoav Prado MD 1 1318 Normal [facility] Troponin I High Sensitivityo n 06-11-2022 Troponin I High Sensitivity 3701 pg/mL Off scale high 0-15 [facility] Comment on above: Result Comment: Resu lts called at 0655 on 06/11/22 PERFORMED BY: [place] [address] PATHOLOGIST [employer] CHIEF PILAR VILLARREAL M.D. Performed By: #### L IPID, A1C [facility] #### [address] XR chest 1V portableon 06-11 XR chest 1V portable [facility] [place] [address] [place] [address] XRay Report Signed Patient: Abdirahman Gomez MR#: [id number] : 1940 Acct:[id number] Age/Sex: 81 / F ADM Date: 06/09/22 Loc: Room: [address] [place] [address] Type: ADM IN Attending Dr: Nathaniel Castillo [...] COMPLICATION. Impression dictated by: Stiven Beasley Jr., Miguel Ángel06/11/2022 3:33 PM Dictation Location: [place] [address] Transcribed By: [facility] 06/11/22 153 Dictated By: Stiven Beasley Jr DO 06/11/221532 Signed By: 06/11/22 153 [facility] ECG 12 lead ECGon 06-10-2022 ECG 12 lead ECG [facility] Main [place] [id number] Electrocardiograph Report Signed Patient: Abdirahman Gomez MR#: [id number] : 1940 Acct:[id number] Age/Sex: 81 / F ADM Date: 06/09/22 Loc: Room: [address] [place] [address] Type: DIS IN Attending Dr: Frida De [...] Electronically Signed By:YOAV PRADO MD Transcribed By: [facility] Signed By Yoav Prado MD 1 08/11/21 1626 [facility] ECG 12 lead ECG [facility] Main [address] [address] Electrocardiograph Report Signed Patient: Abdirahman Gomez MR#: [id number] : 1940 Acct:[id number] Age/Sex: 81 / F ADM Date: 06/09/22 Loc: 3T Room: [address] [place] [address] Type: DIS IN Attending Dr: Frida De [...] was found Confirmed by YOAV PRADO MD ([facility]) on 06/10/2022 4:26:02 PM Referred By: Electronically Signed By:YOAV PRADO MD Transcribed By: [facility] Signed By Yoav Prado MD 1 08/11/21 1626 Normal [facility] Basic Metabolic Panelon 12- Anion gap [Moles/Vol] 13.4 mmol/L Normal 6.0-15.0 [facility] Comment on above: Performed By: #### L IPID, A1C [facility] eA #### [facility] [address] [place] [address] [place] Calcium [Mass/Vol] 8.9 mg/dL Normal 8.2-10.2 [facility] Comment on above: Performed By: #### L IPID, [address] eA #### [facility] [address] [place] [address] [place] Chloride [Moles/Vol] 106 mmol/L Normal 95-114 [facility] Comment on above: Performed By: #### L IPID, A1C [facility] eA #### [facility] [address] [place] [address] [place] CO2 [Moles/Vol] 21.6 mmol/L Low 22.0-30.0 [facility] Comment on above: Performed By: #### L IPID, [address] eA #### [facility] [address] Creatinine [Mass/Vol] 0.76 mg/dL Normal 0.44-1.03 [facility] Comment on above: Performed By: #### L IPID, [address] eA #### [facility] [address] [place] [address] [place] Creatinine Clr Calc Pharmacy 49.92 [facility] Comment on above: Performed By: #### L IPID, [address] eA #### [address] Estimated GFR ( Rose > 60 [facility] Comment on above: Result Comment: GFR estimated reference range: According to KDOQI guidelines, <60 ml/min/1.73m2 is sufficient to diagnose a patient with chronic kidney disease. Performed By: #### L IPID, [address] eA #### [address] Estimated GFR (Non- Am > 60 [facility] Comment on above: Performed By: #### L IPID, [address] eA #### [place] [address] [place] Glucose [Mass/Vol] 136 mg/dL High 70-100 [facility] Comment on above: Result Comment: [place] Glucose Reference Range is dependent on time and content of last meal. Glucose of more than 200 mg/dL in a nonstressed, ambulatory subject supports the diagnosis of Diabetes Mellitus. ADA recommended reference range Performed By: #### L IPID, A1C WT eA #### [facility] [address] [place] [address] [place] Potassium [Moles/Vol] 4.0 mmol/L Normal 3.5-5.1 [facility] Comment on above: Performed By: #### L IPID, A1C WT eA #### [place] [address] [place] Sodium [Moles/Vol] 137 mmol/L Normal 136-146 [facility] Comment on above: Performed By: #### L IPID, A1C [facility] eA #### [facility] [address] Urea nitrogen [Mass/Vol] 9 mg/dL Normal 9-23 [facility] Comment on above: Performed By: #### L IPID, A1C WT eA #### [facility] [address] [place] [id number] [facility] CBC W MANUAL DIFFon 06-09-20 22 ATYPICAL LYMPH # 0.53 103/ul Normal [facility] Comment on above: Performed By: #### T SH, BNP, CMP, LIPID, T7 #### [facility] [address] [place] [address] Dr. Logan Payne ATYPICAL LYMPH % 4 % Normal [facility] Comment on above: Performed By: #### T SH, BNP, CMP, LIPID, T7 #### [facility] [address] [place] [address] [address] Logan Payne BAND # 0.0 103/ul Normal 0.0-0.3 [facility] Comment on above: Performed By: #### T SH, BNP, CMP, LIPID, T7 #### [facility] [address] [place] [address] Dr. Logan Payne BAND % 0 % Normal 0-5 [facility] Comment on above: Performed By: #### T SH, BNP, CMP, LIPID, T7 #### [facility] [address] [place] [address] [address] Logan Payne BASOM # 0.26 103/ul Critically high 0.00-0.10 [facility] Comment on above: Performed By: #### T SH, BNP, CMP, LIPID, T7 #### [facility] [address] [place] [address] [address] Logan Payne BASOM % 2.0 % Normal 0.2-2.0 [facility] Comment on above: Performed By: #### T SH, BNP, CMP, LIPID, T7 #### [facility] [address] [place] [address] Dr. Logan Payne BLAST # Normal [facility] Comment on above: Performed By: #### T SH, BNP, CMP, LIPID, T7 #### [facility] [address] [place] [address] Dr. Logan Payne BLAST % Normal [facility] Comment on above: Performed By: #### T SH, BNP, CMP, LIPID, T7 #### [facility] [address] [place] [address] Dr. Logan Payne CORRECTED WBC Normal 4.0-11.0 [facility] Comment on above: Performed By: #### T SH, BNP, CMP, LIPID, T7 #### [facility] [address] [place] [address] Dr. Logan Payne EOS # 0.66 103/ul Normal 0.00-0.70 [facility] Comment on above: Performed By: #### T SH, BNP, CMP, LIPID, T7 #### [facility] [address] [place] [address] Dr. Logan Payne EOS% 5.0 % Normal 0.9-7.0 [facility] Comment on above: Performed By: #### T SH, BNP, CMP, LIPID, T7 #### [facility] [address] [place] [address] Dr. Logan Payne HCT 39.6 % Normal 36.0-48.0 [facility] Comment on above: Performed By: #### T SH, BNP, CMP, LIPID, T7 #### [facility] [address] [place] [address] Dr. Logan Payne HGB 13.5 g/dl Normal 12.0-16.0 [facility] Comment on above: Performed By: #### T SH, BNP, CMP, LIPID, T7 #### [facility] [address] [place] [address] Dr. Logan Payne LYMPHM # 1.98 103/ul Normal 1.20-3.80 [facility] Comment on above: Performed By: #### T SH, BNP, CMP, LIPID, T7 #### [facility] [address] [place] [address] [address] Logan Payne LYMPHM% 15.0 % Critically low 20.5-60.0 [facility] Comment on above: Performed By: #### T SH, BNP, CMP, LIPID, T7 #### [facility] [address] [place] [address] [address] Logan Payne MCH 34.1 pg Critically high 26.7-34.0 [facility] Comment on above: Performed By: #### T SH, BNP, CMP, LIPID, T7 #### [facility] [address] [place] [address] [address] Logan Payne MCHC 34.1 g/dl Normal 29.9-35.2 [facility] Comment on above: Performed By: #### T SH, BNP, CMP, LIPID, T7 #### [facility] [address] [place] [address] [address] Logan Payne MCV 100.0 fL Critically high 81.0-99.0 [facility] Comment on above: Performed By: #### T SH, BNP, CMP, LIPID, T7 #### [facility] [address] [place] [address] [address] Logan Payne METAMYELOCYTE # Normal [facility] Comment on above: Performed By: #### T SH, BNP, CMP, LIPID, T7 #### [facility] [address] [place] [address] [address] Logan Payne METAMYELOCYTE % Normal [facility] Comment on above: Performed By: #### T SH, BNP, CMP, LIPID, T7 #### [facility] [address] [place] [address] [address] Logan Payne MONOM# 1.85 103/ul Critically high 0.30-0.80 [facility] Comment on above: Performed By: #### T SH, BNP, CMP, LIPID, T7 #### [facility] [address] [place] [address] [address] Logan Payne MONOM% 14.0 % Critically high 1.7-12.0 [facility] Comment on above: Performed By: #### T SH, BNP, CMP, LIPID, T7 #### [facility] [address] [place] [address] [address] Logan Payne MPV 9.3 fL Critically low 9.5-13.5 [facility] Comment on above: Performed By: #### T SH, BNP, CMP, LIPID, T7 #### [facility] [address] [place] [address] Dr. Logan Payne MYELOCYTE # Normal [facility] Comment on above: Performed By: #### T SH, BNP, CMP, LIPID, T7 #### [facility] [address] [place] [address] [address] Logan Payne MYELOCYTE % Normal [facility] Comment on above: Performed By: #### T SH, BNP, CMP, LIPID, T7 #### [facility] [address] [place] [address] Dr. Logan Payne NRBC Normal [facility] Comment on above: Performed By: #### T SH, BNP, CMP, LIPID, T7 #### [facility] [address] [place] [address] Dr. Logan Payne PLT 219 103/ul Normal 150-450 [facility] Comment on above: Performed By: #### T SH, BNP, CMP, LIPID, T7 #### [facility] [address] [place] [address] Dr. Logan Payne RBC 3.96 106/ul Critically low 4.20-5.40 [facility] Comment on above: Performed By: #### T SH, BNP, CMP, LIPID, T7 #### [facility] [address] [place] [address] Dr. Logan Payne RDW 13.2 % Normal 11.0-15.0 [facility] Comment on above: Performed By: #### T SH, BNP, CMP, LIPID, T7 #### [facility] [address] [place] [address] Dr. Logan Payne SEG # 7.92 103/ul Critically high 1.40-6.50 [facility] Comment on above: Performed By: #### T SH, BNP, CMP, LIPID, T7 #### [facility] [address] [place] [address] [address] Logan Payne SEG % 60.0 % Normal 43.0-75.0 [facility] Comment on above: Performed By: #### T SH, BNP, CMP, LIPID, T7 #### [facility] [address] [place] [address] [address] Logan Payne WBC 13.2 103/ul Critically high 4.0-11.0 [facility] Comment on above: Performed By: #### T SH, BNP, CMP, LIPID, T7 #### [facility] [address] [place] [address] [address] Logan Payne CULTURE BLOODon 06-09-2022 Microscopic examination of blood, culture Culture Observations: NO GROWTH AT 5 DAYS. Isolate 1 BC_BA_NA Normal [facility] Comment on above: Performed By: #### T SH, BNP, CMP, LIPID, T7 #### [facility] [address] [place] [address] [address] Logan Payne Microscopic examination of blood, culture Culture Observations: NO GROWTH AT 5 DAYS. Isolate 1 BC_BA_NA Normal [facility] Comment on above: Performed By: #### T SH, BNP, CMP, LIPID, T7 #### [facility] [address] [place] [address] [address] Logan Payne Complete Blood Count Auto Di ffon 06-09-2022 Basophils (Bld) [#/Vol] 0.1 10*3/uL Normal 0.0-0.2 [facility] Comment on above: Result Comment: PERF ORMED BY: [place] [address] PATHOLOGIST [employer]IE[employer] PILAR VILLARREAL M.D. Performed By: #### L IPID, A1C [facility] eA #### [facility] [address] [place] [address] [place] Basophils/100 WBC (Bld) 0.4 % Normal . [facility] Comment on above: Performed By: #### L IPID, A1C WTH eA #### [facility] [address] [place] [address] [place] Eosinophils (Bld) [#/Vol] 0.1 10*3/uL Normal 0.0-0.45 [facility] Comment on above: Performed By: #### L IPID, [address] eA #### [facility] [address] [place] [address] [place] Eosinophils/100 WBC (Bld) 0.5 % Normal . [facility] Comment on above: Performed By: #### L IPID, [address] eA #### [facility] [address] Erythrocyte distribution width (RBC) [Ratio] 13.8 % Normal 11.9-15.3 [facility] Comment on above: Performed By: #### L IPID, [address] eA #### [address] Hematocrit (Bld) [Volume fraction] 41.0 % Normal 34.0-46.4 [facility] Comment on above: Performed By: #### L IPID, [address] eA #### [address] Hemoglobin (Bld) [Mass/Vol] 13.6 g/dL Normal 11.8-15.4 [facility] Comment on above: Performed By: #### L IPID, [address] eA #### [address] Lymphocytes (Bld) [#/Vol] 2.3 10*3/uL Normal 1.00-4.8 [facility] Comment on above: Performed By: #### L IPID, [address] eA #### [place] [address] [place] Lymphocytes/100 WBC (Bld) 17.2 % Normal . [facility] Comment on above: Performed By: #### L IPID, [address] eA #### [place] [address] [place] MCH (RBC) [Entitic mass] 34.4 pg High 24.7-34.3 [facility] Comment on above: Performed By: #### L IPID, [facility] eA #### [facility] [address] [place] [address] [place] MCV (RBC) [Entitic vol] 103.6 fL High 80-100 [facility] Comment on above: Performed By: #### L IPID, A1C WTH eA #### [facility] [address] Mean Corpuscular HGB Conc 33.2 g/dL Normal 32.0-35.0 [facility] Comment on above: Performed By: #### L IPID, A1C WT eA #### [facility] [address] [place] [address] [place] Monocytes (Bld) [#/Vol] 1.3 10*3/uL High 0.0-0.8 [facility] Comment on above: Performed By: #### L IPID, [facility] WT eA #### [facility] [address] [place] [address] [place] Monocytes/100 WBC (Bld) 10.1 % Normal . [facility] Comment on above: Performed By: #### L IPID, [address] eA #### [facility] [address] [place] [address] [place] Neutrophils (Bld) [#/Vol] 9.5 10*3/uL High 1.8-7.7 [facility] Comment on above: Performed By: #### L IPID, [facility] WT eA #### [facility] [address] [place] [address] [place] Neutrophils/100 WBC (Bld) 71.8 % Normal . [facility] Comment on above: Performed By: #### L IPID, A1C WT eA #### [facility] [address] [place] [address] [place] NRBC% 0.0 /100{WBC} Normal 0-0.5 [facility] Comment on above: Performed By: #### L IPID, A1C WT eA #### [facility] [address] [place] [address] [place] Platelet mean volume (Bld) [Entitic vol] 8.1 fL Normal 6.3-10.7 [facility] Comment on above: Performed By: #### L IPID, A1C WT eA #### [facility] [address] Platelets (Bld) [#/Vol] 199 10*3/uL Normal 150-450 [facility] Comment on above: Performed By: #### L IPID, A1C WT eA #### [facility] [address] RBC (Bld) [#/Vol] 3.96 10*6/uL Normal 3.60-5.00 [facility] Comment on above: Performed By: #### L IPID, A1C WT eA #### [facility] [address] WBC (Bld) [#/Vol] 13.2 10*3/uL High 3.8-11.6 [facility] Comment on above: Performed By: #### L IPID, [address] eA #### [facility] [address] Covid-19 PCR ([facility])on 05-15 SARS-CoV-2 (COVID-19) RNA CAROL+probe Ql (Unsp spec) Not detected Normal NOT DETECTED [facility] Comment on above: [...] for this test is supported by the [employer] of Health and Human Service's declaration that [...] SH, BNP, CMP, LIPID, T7 #### [facility] [address] [place] [address] Dr. Logan Payne ECG 12 lead ECGon 06-09-2022 ECG 12 lead ECG [facility] [address] [place] [id number] Electrocardiograph Report Signed Patient: Abdirahman Gomez MR#: [id number] : 1940 Acct:[id number] Age/Sex: 81 / F ADM Date: 06/09/22 Loc: 3T Room: [address] [place] [address] Type: DIS IN Attending Dr: Frida De [...] Yoav Prado MD 1 08/10/21 1709 Normal [facility] echo transthoracicon [facility] echo transthoracic [facility] [address] [place] [id number] Echocardiogram Signed Patient: Abdirahman Gomez MR#: [id number] : 1940 Acct:[id number] Age/Sex: 81 / F ADM Date: 06/09/22 Loc: Room: [address] [place] [address] Type: DIS IN Attending Dr: Frida De La Cruz MD Ordering Provider: Marta Juarez DO, RES Date of Service: 06/09/22 [facility] echo transthoracic: elevated trop, afib [...] cm Transcribed By: SCV Performed At: 06/09/22 1426 Signed By: Yoav Prado MD 06/09/22 1653 [facility] Folate [Mass/volume] in Seru m or PlasmaOrdered By: Nathaniel Castillo on 06-09-2022 Folate [Mass/Vol] ng/mL >5.9 [facility] Comment on above: Folate reference ran ge: >5.9 ng/mlThe WHO technical consultation on folate and vitamin [id number] has determined that folate concentrations lessthan 4 ng/ml are considered deficient. LACTATE/LACTIC ACIDon 2021 Lactate [Moles/Vol] 1.1 mmol/L Normal 0.4-1.9 [facility] Comment on above: Performed By: #### T SH, BNP, CMP, LIPID, T7 #### [facility] [address] [place] [address] [address] Logan Payne Lactate [Moles/Vol] 1.8 mmol/L Normal 0.4-1.9 [facility] Comment on above: Performed By: #### T SH, BNP, CMP, LIPID, T7 #### [facility] [address] [place] [address] [address] Logan Payne Laboratory - Chemistry and C hemistry - challengeOrdered By: Nathaniel Castillo on 06-09-2022 Cobalamin (Vitamin B12) [Mass/Vol] 480 pg/mL 180-914 [facility] Laboratory - Chemistry and C hemistry - challengeOrdered By: Rossi Valdez on 06-09-2022 Magnesium [Mass/Vol] 1.8 mg/dL 1.6-2.6 [facility] Magnesiumon 06-09-2022 Magnesium [Mass/Vol] 1.8 mg/dL Normal 1.6-2.6 [facility] Comment on above: Result Comment: PERF ORMED BY: [facility] [address] [place] [address] PATHOLOGIST [employer] PILAR VILLARREAL M.D. Performed By: #### L IPID, A1C WTH eA #### [facility] [address] OCC BLD IMMUNO SCREENon 05-15 OCCULT BLOOD Positive Abnormal NEGATIVE [facility] Comment on above: Performed By: #### T SH, BNP, CMP, LIPID, T7 #### [facility] [address] [place] [address] [address] Logan Payne PROF 14(COMP METB)on 022 Albumin [Mass/Vol] 3.3 g/dL Critically low 3.4-5.0 [facility] Comment on above: Performed By: #### C JOSE HSTROPN #### [facility] [address] [place] [address] [address] Logan Payne Albumin/Globulin [Mass ratio] 0.8 {ratio} Normal [facility] Comment on above: Performed By: #### C MP, HSTROPN #### [facility] [address] [place] [address] [address] Logan Payne ALP [Catalytic activity/Vol] 95 U/L Normal 46-116 [facility] Comment on above: Performed By: #### C MP, HSTROPN #### [facility] [address] [place] [address] [address] Logan Payne ALT [Catalytic activity/Vol] 36 U/L Normal 14-59 [facility] Comment on above: Performed By: #### C MP, HSTROPN #### [facility] [address] [place] [address] [address] Logan Payne Anion gap [Moles/Vol] 14.7 mmol/L Normal Th e [facility] Comment on above: Performed By: #### C JOSE, HSTROPN #### [facility] [address] [place] [address] [address] Logan Payne AST [Catalytic activity/Vol] 75 U/L Critically high 15-37 [facility] Comment on above: Performed By: #### C JOSE, HSTROPN #### [facility] [address] [place] [address] Dr. Logan Payne Bilirubin [Mass/Vol] 0.4 mg/dL Normal 0.2-1.0 [facility] Comment on above: Performed By: #### C JOSE, HSTROPN #### [facility] [address] [place] [address] Dr. Logan Payne Calcium [Mass/Vol] 8.7 mg/dL Normal 8.5-10.1 [facility] Comment on above: Performed By: #### C JOSE, HSTROPN #### [facility] [address] [place] [address] Dr. Logan Payne Chloride [Moles/Vol] 103 mmol/L Normal 98-107 [facility] Comment on above: Performed By: #### C JOSE, HSTROPN #### [facility] [address] [place] [address] Dr. Logan Payne CO2 [Moles/Vol] 21.3 mmol/L Normal 21.0-32.0 [facility] Comment on above: Performed By: #### C MP, HSTROPN #### [facility] [address] [place] [address] Dr. Logan Payne Creatinine [Mass/Vol] 0.83 mg/dL Normal 0.55-1.02 [facility] Comment on above: Performed By: #### C JOSE, HSTROPN #### [facility] [address] [place] [address] Dr. Logan Payne EGFR-AF GEORGIAN >60 Normal >=60 [facility] Comment on above: Performed By: #### C JOSE, HSTROPN #### [facility] [address] [place] [address] [address] Logan Payne EGFR-NON AF GEORGIAN >60 Normal >=60 [facility] Comment on above: Performed By: #### C MP, HSTROPN #### [facility] [address] [place] [address] [address] Logan Payne Globulin (S) [Mass/Vol] 4.1 g/dL Normal [facility] Comment on above: Performed By: #### C MP, HSTROPN #### [facility] [address] [place] [address] [address] Logan Payne Glucose [Mass/Vol] 141 mg/dL Critically high 74-106 [facility] Comment on above: Performed By: #### C MP, HSTROPN #### [facility] [address] [place] [address] [address] Logan Payne Potassium [Moles/Vol] 4.0 mmol/L Normal 3.5-5.1 [facility] Comment on above: Performed By: #### C MP, HSTROPN #### [facility] [address] [place] [address] [address] Logan Payne Protein [Mass/Vol] 7.4 g/dL Normal 6.4-8.2 [facility] Comment on above: Performed By: #### C MP, HSTROPN #### [facility] [address] [place] [address] [address] Logan Payne Sodium [Moles/Vol] 135 mmol/L Critically low 136-145 [facility] Comment on above: Performed By: #### C MP, HSTROPN #### [facility] [address] [place] [address] [address] Logan Payne Urea nitrogen [Mass/Vol] 16.0 mg/dL Normal 7.0-18.0 [facility] Comment on above: Performed By: #### C MP, HSTROPN #### [facility] [address] [place] [address] [address] Logan Payne Urea nitrogen/Creatinine [Mass ratio] 19.3 mg/mg Normal [facility] Comment on above: Performed By: #### C MP, HSTROPN #### [facility] [address] [place] [address] [address] Logan Payne PROTIMEon 06-09-2022 INR Coag (PPP) [Relative time] 0.98 {INR} Normal [facility] Comment on above: Performed By: #### T SH, BNP, CMP, LIPID, T7 #### [facility] [address] [place] [address] Dr. Logan Payne INR GUIDELINES SEE BELOW Normal [facility] Comment on above: Result Comment: FERCHO RED INR: 2.0 - 3.0 CONDITIONS NOT LISTED BELOW 2.5 - 3.5 FOR PROSTHETIC HEART VALVE REPLACEMENT 2.5 - 3.5 RECURRENT THROMBOSIS Performed By: #### T SH, BNP, CMP, LIPID, T7 #### [facility] [address] [place] [address] Dr. Logan Payne PT Coag (PPP) [Time] 10.6 s Normal 9.0-11.6 [facility] Comment on above: Performed By: #### T SH, BNP, CMP, LIPID, T7 #### [facility] [address] [place] [address] Dr. Logan Payne PTTon 06-09-2022 aPTT Coag (Bld) [Time] 30.0 s Normal 22.3-36.2 [facility] Comment on above: Performed By: #### T SH, BNP, CMP, LIPID, T7 #### [facility] [address] [place] [address] Dr. Logan Payne TROPONIN, HIGH SENSITIVITYon 06-09-2022 HSTROP 8564.4 pg/mL Critically high 4.0-51.3 [facility] Comment on above: Result Comment: CUT- OFF POINTS HAVE BEEN ESTABLISHED BASED ON THE FOURTH UNIVERSAL DEFINITIONS OF MYOCARDIAL INFARCTION. THE UPPER REFERENCE LIMIT (URL) OF TROPONIN, DEFINED THE 99TH PERCENTILE OF cTnI DISTRIBUTION IN A REFERENCE POPULATION, HAS BEEN CONFIRMED THE DECISION THRESHOLD FOR [place] DIAGNOSIS. Performed By: #### T SH, BNP, CMP, LIPID, T7 #### [facility] [address] [place], [place] [address] Dr. Logan Payne HSTROP 9385.6 pg/mL Critically high 4.0-51.3 [facility] Comment on above: Result Comment: CUT- OFF POINTS HAVE BEEN ESTABLISHED BASED ON THE FOURTH UNIVERSAL DEFINITIONS OF MYOCARDIAL INFARCTION. THE UPPER REFERENCE LIMIT (URL) OF TROPONIN, DEFINED THE 99TH PERCENTILE OF cTnI DISTRIBUTION IN A REFERENCE POPULATION, HAS BEEN CONFIRMED THE DECISION THRESHOLD FOR [place] DIAGNOSIS. Performed By: #### C MP, HSTROPN #### [facility] [address] [place], [place] [address] Dr. Logan Payne TYPE AND SCREENon 06-09-2022 TYPE AND SCREEN Negative Normal [facility] Comment on above: Performed By: #### T SH, BNP, CMP, LIPID, T7 #### [facility] [address] [place], [place] [address] Dr. Logan Payne Troponin I High Sensitivityo n 06-09-2022 Troponin I High Sensitivity 6364 pg/mL Off scale high 0-15 [facility] Comment on above: Result Comment: Resu lts called at 1303 on 06/09/22 PERFORMED BY: [place] [address] PATHOLOGIST [employer] PILAR VILLARREAL M.D. Performed By: #### L IPID, [address] eA #### [facility] [address] [place] [address] Troponin I High Sensitivity 6431 pg/mL Off scale high 0-15 [facility] Comment on above: Result Comment: Resu lts called at 1006 on 06/09/22 PERFORMED BY: [facility] [address] [place] [address] PATHOLOGIST [employer] PILAR VILLARREAL M.D. Performed By: #### L IPID, [address] eA #### [facility] [address] [place] [id number] [place] Troponin I High Sensitivity 6373 pg/mL Off scale high 0-15 [facility] Comment on above: Result Comment: Resu lts called at 0710 on 06/09/22 PERFORMED BY: [address] [place] [address] PATHOLOGIST [employer] PILAR VILLARREAL M.D. Performed By: #### G KIRA #### Point of Care testing , Vit. B12/Folate Profileon Cobalamin (Vitamin B12) [Mass/Vol] 480 pg/mL Normal 180-914 [facility] Comment on above: Order Comment: Comme nt addon Performed By: #### G KIRA #### Point of Care testing , Folate > 22.3 Normal >5.9 [facility] Comment on above: Order Comment: Comme nt addon Result Comment: Niyah te reference range: >5.9 ng/ml The WHO technical consultation on folate and vitamin b12 deficiencies has determined that folate concentrations less than 4 ng/ml are considered deficient. PERFORMED BY: [facility] [address] [place] [address] PATHOLOGIST [employer]IEF IPLAR VILLARREAL M.D. Performed By: #### G KIRA #### Point of Care testing , BASIC METABOLIC PANELon 11-12 Calcium [Mass/Vol] 9.1 mg/dL Normal 8.6-10.3 [facility] [place] [facility] Comment on above: Order Comment: No: D o not add to previous draw Performed By: #### 0 0071, [id number] #### [facility] [address] [place] [address], [place] Chloride [Moles/Vol] 104 mmol/L Normal 98-107 [facility] [place] [facility] Comment on above: Order Comment: No: D o not add to previous draw Performed By: #### 0 0071, 93772 #### [facility] [address] [place] [address], [place] CO2 [Moles/Vol] 22 mmol/L Normal 21-31 [facility] [place] [facility] Comment on above: Order Comment: No: D o not add to previous draw Performed By: #### 0 0071, 64570 #### [facility] [address] [place] [address], [place] Creatinine [Mass/Vol] 0.80 mg/dL Normal 0.60-1.20 [facility] [place] [facility] Comment on above: Order Comment: No: D o not add to previous draw Performed By: #### 0 0071, 29247 #### [facility] [address] [place] [address], [place] GFR/1.73 sq M.predicted among blacks MDRD (S/P/Bld) [Vol rate/Area] mL/min/{1.73_m2} Normal >60 [facility] [place] [facility] Comment on above: Order Comment: No: D o not add to previous draw Result Comment: Calc ulation may not be valid for patients over 70 years Performed By: #### 0 0071, 11901 #### [facility] [address] [place] [address], [facility] GFR/1.73 sq M.predicted among non-blacks MDRD (S/P/Bld) [Vol rate/Area] mL/min/{1.73_m2} Normal >60 [facility] [place] [facility] Comment on above: Order Comment: No: D o not add to previous draw Result Comment: Calc ulation may not be valid for patients over 70 years Performed By: #### 0 0071, 12765 #### [facility] [address] [place] [address], [place] Glucose [Mass/Vol] 99 mg/dL Normal 70-100 [facility] [place] [facility] Comment on above: Order Comment: No: D o not add to previous draw Performed By: #### 0 0071, 77846 #### [facility] [address] [place] [address], [place] Potassium [Moles/Vol] 4.2 mmol/L Normal 3.5-5.1 [facility] [place] [facility] Comment on above: Order Comment: No: D o not add to previous draw Performed By: #### 0 0071, 51551 #### [facility] [address] [place] [address], [place] Sodium [Moles/Vol] 137 mmol/L Normal 136-145 [facility] [place] [facility] Comment on above: Order Comment: No: D o not add to previous draw Performed By: #### 0 1, 04753 #### [facility] [address] [place] [address], [facility] Urea nitrogen [Mass/Vol] 11 mg/dL Normal 7-25 [facility] [place] [facility] Comment on above: Order Comment: No: D o not add to previous draw Performed By: #### 0 70, 40018 #### [facility] [address] [place] [address], [facility] CBC COMPLETE BLOOD COUNTon 0 11-25-2021 Erythrocyte distribution width (RBC) [Ratio] 12.9 % Normal 11.5-15.0 [facility] [place] [facility] Comment on above: Order Comment: No: D o not add to previous draw Performed By: #### 3 2043 #### [facility] [address] [place] [address], [facility] Hematocrit (Bld) [Volume fraction] 42.7 % Normal 36.0-45.0 [facility] [place] [facility] Comment on above: Order Comment: No: D o not add to previous draw Performed By: #### 3 2043 #### [facility] [address] [place] [address], [facility] Hemoglobin (Bld) [Mass/Vol] 14.3 g/dL Normal 12.0-15.0 [facility] [place] [facility] Comment on above: Order Comment: No: D o not add to previous draw Performed By: #### 3 2043 #### [facility] [address] [place] [address], [place] MCH (RBC) [Entitic mass] 33.9 pg High 27.0-33.0 [facility] [place] [facility] Comment on above: Order Comment: No: D o not add to previous draw Performed By: #### 3 2043 #### [facility] [address] [place] [address], [facility] MCHC (RBC) [Mass/Vol] 33.5 g/dL Normal 32.0-35.0 [facility] [place] [facility] Comment on above: Order Comment: No: D o not add to previous draw Performed By: #### 3 2043 #### [facility] [address] [place] [address], [facility] MCV (RBC) [Entitic vol] 101.2 fL High 82.0-98.0 [facility] Comment on above: Order Comment: No: D o not add to previous draw Performed By: #### 3 2043 #### [facility] [address] [place] [id number], [facility] Nucleated RBC/100 WBC (Bld) [Ratio] 0 % Normal 0-0 [facility] Comment on above: Order Comment: No: D o not add to previous draw Performed By: #### 3 2043 #### [facility] [address] [place] [address], [facility] PLAT CNT 211 10*3/uL Normal 150-400 [facility] Comment on above: Order Comment: No: D o not add to previous draw Performed By: #### 3 2043 #### [facility] [address] [place] [address], [facility] RBC (Bld) [#/Vol] 4.22 10*6/uL Normal 3.80-5.00 [facility] Comment on above: Order Comment: No: D o not add to previous draw Performed By: #### 3 2043 #### [facility] [address] [place] [address], [facility] WBC (Bld) [#/Vol] 11.25 10*3/uL High 4.00-10.60 [facility] [place] [facility] Comment on above: Order Comment: No: D o not add to previous draw Performed By: #### 3 2043 #### [facility] [address] [place] [id number], [facility] HEMOGLOBIN A1Con 11-25-2021 Glucose [Moles/Vol] 128 mmol/L Normal [facility] [place] [facility] Comment on above: Order Comment: If no t done in EDNo: Do not add to previous draw Performed By: #### 3 2043 #### [facility] [address] HbA1c (Bld) [Mass fraction] 6.1 % High 4.0-6.0 [facility] [place] [facility] Comment on above: Order Comment: If no t done in EDNo: Do not add to previous draw Performed By: #### 3 4 #### [facility] [address] MAGNESIUM BLOODon 11-25-2021 Magnesium [Mass/Vol] 1.8 mg/dL Low 1.9-2.7 [facility] Comment on above: Order Comment: No: D o not add to previous draw Performed By: #### 0 0071, 75978 #### [facility] [address] PORTABLE CHEST 1 VIEWon 11-12 PORTABLE CHEST 1 VIEW [facility] Department of Radiology [address] [place] [id number] Patient Name: ABDIRAHMAN GOMEZ : 1940 Sex: F Age: Race: White Pt. Location: [address] [place] [address] Patient Status: I Ordered Date: 11/25/2021 10:05:00 [...] edema. Electronically signed: Melania Lay. Transcribed by: [email or web address], User Resident: Electronically Signed by: MELANIA LAY @ 11/25/2021 10:44 AM Normal [facility] [place] [facility] Comment on above: Order Comment: Pneum othorax Cardiovascular Lab Reporton 11-24-2021 Cardiovascular Lab Report [facility] MR #: [id number] Physician: Sarabjit Vicente MD Department of Service Date: 11/24/2021 Medicine Birthdate: 1940 Division of Room #: 3AB [id number] Cardiology Adult Cardiovascular Services [place] [address] Cardiovascular Laboratory Report PACEMAKER IMPLANT PROCEDURE NOTE DATE OF PROCEDURE: 11/24/2021 PERFORMING PHYSICIAN: Dr. Sarabjit Vicente CONSENT: Patient LOCATION: EP Lab PROCEDURE PERFORMED: 1. Implantation of pacemaker ([employer]). 2. 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 She had syncope from this and subsequently was transferred here. Since the admission to [facility], she had a fairly recently [...] using modified seldinger technique using a 5 Estonian micro-puncture needle on two occasions and 0.35 [...] pocket was created for the device. 6 Estonian Safesheaths were placed over the wire. An active fixation [employer] pacing lead was then delivered through the 6Fsheath to the right ventricle. After confirmation of lead position on orthogonal views ([place] and BELARUSIAN) to confirm septal position, the screw was activated, and the lead was placed in the right ventricular mid cavity towards the septum. After confirmation of good sensing parameters, injury pattern and pacing thresholds, 10V pacing was done and no diaphragmatic stimulation was noted. It was then secured in the pocket using three 1-0 Silk sutures. Then an active fixation [employer] lead was delivered through the 6Fsheath to the right atrial appendage. After confirmation of lead position on orthogonal views ([place]ON and BELARUSIAN), the screw was activated. After confirmation of [...] immediate procedural complications were noted. Device info: [employer] Accolade MRI Model# L311 Serial# [id number] RA lead: Model# [id number] [id number] (45cms) Serial# [id number] SensinmV Threshold: 0.8V@0.4ms Impedance: 590 Ohms RV lead: Model# INGEVITY [id number] (52cms) Serial# [id number] Sensin.5mV Threshold: 0.4V@0.4ms Impedance: 1125 Ohms POST PROCEDURE EXAM: Patient was hemodynamically stable. COMPLICATIONS: None. ESTIMATED BLOOD LOSS: 15cc IMPRESSION: 1. Successful dual chamber pacemaker with excellent pacing and sensing parameters. RECOMMENDATIONS: 1 Occlusive dressing to be removed after 2 weeks. 2. Do not wet the incision for 7 days. 3. No lifti (more content not included)... Normal [facility] [place] [facility] APTTon 11-23-2021 aPTT Coag (Bld) [Time] 30.9 s Normal 25.0-35.0 [facility] [place] [facility] Comment on above: Order Comment: No: [...] PURPOSE. Performed By: #### 3 2044 #### [facility] [address] [place] [address], [facility] BASIC METABOLIC PANELon - Calcium [Mass/Vol] 9.5 mg/dL Normal 8.6-10.3 [facility] [place] [facility] Comment on above: Order Comment: No: D o not add to previous draw Performed By: #### 1 69, 53503 #### [facility] [address] [place] [address], [place] Chloride [Moles/Vol] 104 mmol/L Normal 98-107 [facility] [place] [facility] Comment on above: Order Comment: No: D o not add to previous draw Performed By: #### 1 69, 96351 #### [facility] [address] [place] [address], [place] CO2 [Moles/Vol] 21 mmol/L Normal 21-31 [facility] [place] [facility] Comment on above: Order Comment: No: D o not add to previous draw Performed By: #### 1 69, 70918 #### [facility] [address] [place] [address], [place] Creatinine [Mass/Vol] 0.80 mg/dL Normal 0.60-1.20 [facility] [place] [facility] Comment on above: Order Comment: No: D o not add to previous draw Performed By: #### 1 69, 40082 #### [facility] [address] [place] [address], [place] GFR/1.73 sq M.predicted among blacks MDRD (S/P/Bld) [Vol rate/Area] mL/min/{1.73_m2} Normal >60 [facility] [place] [facility] Comment on above: Order Comment: No: D o not add to previous draw Result Comment: Calc ulation may not be valid for patients over 70 years Performed By: #### 1 69, 14210 #### [facility] [address] [place] [address], [place] GFR/1.73 sq M.predicted among non-blacks MDRD (S/P/Bld) [Vol rate/Area] mL/min/{1.73_m2} Normal >60 [facility] [place] [facility] Comment on above: Order Comment: No: D o not add to previous draw Result Comment: Calc ulation may not be valid for patients over 70 years Performed By: #### 1 69, 10839 #### [facility] [address] [place] [address], [place] Glucose [Mass/Vol] 109 mg/dL High 70-100 [facility] [place] [facility] Comment on above: Order Comment: No: D o not add to previous draw Performed By: #### 1 69, 61503 #### [facility] [address] [place] [address], [place] Potassium [Moles/Vol] 3.9 mmol/L Normal 3.5-5.1 [facility] [place] [facility] Comment on above: Order Comment: No: D o not add to previous draw Performed By: #### 1 69, 70237 #### [facility] [address] [place] [address], [place] Sodium [Moles/Vol] 138 mmol/L Normal 136-145 [facility] [place] [facility] Comment on above: Order Comment: No: D o not add to previous draw Performed By: #### 1 69, 90904 #### [facility] [address] [place] [address], [facility] Urea nitrogen [Mass/Vol] 15 mg/dL Normal 7-25 [facility] [place] [facility] Comment on above: Order Comment: No: D o not add to previous draw Performed By: #### 1 69, 00791 #### [facility] [address] [place] [address], [facility] CBC COMPLETE BLOOD COUNTon 0 - Erythrocyte distribution width (RBC) [Ratio] 12.8 % Normal 11.5-15.0 [facility] [place] [facility] Comment on above: Order Comment: No: D o not add to previous draw Performed By: #### 3 2043 #### [facility] [address] [place] [address], [place] Hematocrit (Bld) [Volume fraction] 41.9 % Normal 36.0-45.0 [facility] [place] [facility] Comment on above: Order Comment: No: D o not add to previous draw Performed By: #### 3 2043 #### [facility] [address] [place] [id number], [facility] Hemoglobin (Bld) [Mass/Vol] 14.1 g/dL Normal 12.0-15.0 [facility] [place] [facility] Comment on above: Order Comment: No: D o not add to previous draw Performed By: #### 3 2043 #### [facility] [address] [address], [facility] MCH (RBC) [Entitic mass] 34.0 pg High 27.0-33.0 [facility] Comment on above: Order Comment: No: D o not add to previous draw Performed By: #### 3 2043 #### [facility] [address] [facility] [place] [address], [facility] MCHC (RBC) [Mass/Vol] 33.7 g/dL Normal 32.0-35.0 [facility] [place] [facility] Comment on above: Order Comment: No: D o not add to previous draw Performed By: #### 3 2043 #### [facility] [address] [facility] [place] [id number], [facility] MCV (RBC) [Entitic vol] 101.0 fL High 82.0-98.0 T [facility] Comment on above: Order Comment: No: D o not add to previous draw Performed By: #### 3 2043 #### [facility] [address] [place] [address], [facility] Nucleated RBC/100 WBC (Bld) [Ratio] 0 % Normal 0-0 [facility] [place] [facility] Comment on above: Order Comment: No: D o not add to previous draw Performed By: #### 3 2043 #### [facility] [address] [place] [id number], [facility] PLAT CNT 218 10*3/uL Normal 150-400 [facility] [place] [facility] Comment on above: Order Comment: No: D o not add to previous draw Performed By: #### 3 2043 #### [facility] [address] [place] [address], [facility] RBC (Bld) [#/Vol] 4.15 10*6/uL Normal 3.80-5.00 [facility] [place] [facility] Comment on above: Order Comment: No: D o not add to previous draw Performed By: #### 3 2043 #### [facility] [address] [facility] WBC (Bld) [#/Vol] 9.49 10*3/uL Normal 4.00-10.60 [facility] [place] [facility] Comment on above: Order Comment: No: D o not add to previous draw Performed By: #### 3 2043 #### [facility] [address] [facility]. [address] MAGNESIUM BLOODon 11-23-2021 Magnesium [Mass/Vol] 2.0 mg/dL Normal 1.9-2.7 [facility] [place] [facility] Comment on above: Order Comment: No: D o not add to previous draw Performed By: #### 1 0070, 14086 #### [facility] [address] POC SARS COV2 ANTIGEN NEGATI VEon 11-23-2021 POC SARS COV2 ANTIGEN NEG Negative Normal NEGATIVE [facility] [place] [facility] Comment on above: Result Comment: Nega [...] antigen from SARS-CoV-2 in direct nasopharyngeal swab (BILL RECAPITULATION CLERK) specimens from individuals who are suspected of [...] Accreditation. Performed By: #### 3 2043 #### [facility] [address] [facility] PROTHROMBIN TIMEon 2 INR Coag (PPP) [Relative time] 1.03 {INR} Normal 0.91-1.16 [facility] [place] [facility] Comment on above: Order Comment: No: [...] 1995;[id number]. Performed By: #### 3 2043 #### [facility] [address] [place] [address], [facility] PT Coag (PPP) [Time] 13.5 s Normal 12.3-14.8 [facility] Comment on above: Order Comment: No: D o not add to previous draw Result Comment: ALL RESULTS MUST BE INTERPRETED WITH RESPECT TO BLOOD DRAWING ARTIFACT OR DILUTION ERROR OF ANTICOAGULANT AT THE TIME OF SAMPLING. Performed By: #### 3 2044 #### [facility] [address] [place] [address], [facility] BASIC METABOLIC PANELon 06- Calcium [Mass/Vol] 9.5 mg/dL Normal 8.6-10.3 [facility] Comment on above: Order Comment: No: D o not add to previous draw Performed By: #### 1 0070, 22247, 59613 #### [facility] [address] [place] [address], [facility] Chloride [Moles/Vol] 104 mmol/L Normal 98-107 [facility] Comment on above: Order Comment: No: D o not add to previous draw Performed By: #### 1 0, 53503, 65969 #### [facility] [address] [place] [address], [facility] CO2 [Moles/Vol] 21 mmol/L Normal 21-31 [facility] Comment on above: Order Comment: No: D o not add to previous draw Performed By: #### 1 0070, 72767, 02348 #### [facility] [address] [place] [address], [facility] Creatinine [Mass/Vol] 0.98 mg/dL Normal 0.60-1.20 [facility] Comment on above: Order Comment: No: D o not add to previous draw Performed By: #### 1 0070, 93568, 55641 #### [facility] [address] [place] [address], [place] eGFR- non- 54 ml/min/1.73sq m Abnormal >60 [facility] [place] [facility] Comment on above: Order Comment: No: D o not add to previous draw Result Comment: Calc ulation may not be valid for patients over 70 years Performed By: #### 1 0070, 36866, 35854 #### [facility] [address] GFR/1.73 sq M.predicted among blacks MDRD (S/P/Bld) [Vol rate/Area] mL/min/{1.73_m2} Normal >60 [facility] [place] [facility] Comment on above: Order Comment: No: D o not add to previous draw Result Comment: Calc ulation may not be valid for patients over 70 years Performed By: #### 1 0, 71544, 61335 #### [facility] [address] [place] [address], [facility] Glucose [Mass/Vol] 110 mg/dL High 70-100 [facility] Comment on above: Order Comment: No: D o not add to previous draw Performed By: #### 1 0, 25214, 10615 #### [facility] [address] [place] [address], [facility] Potassium [Moles/Vol] 4.9 mmol/L Normal 3.5-5.1 [facility] [place] [facility] Comment on above: Order Comment: No: D o not add to previous draw Performed By: #### 1 0, 58283, 02132 #### [facility] [address] [place] [address], [facility] Sodium [Moles/Vol] 137 mmol/L Normal 136-145 [facility] [place] [facility] Comment on above: Order Comment: No: D o not add to previous draw Performed By: #### 1 0, 95245, 70448 #### [facility] [address] [place] [address], [facility] Urea nitrogen [Mass/Vol] 18 mg/dL Normal 7-25 [facility] [place] [facility] Comment on above: Order Comment: No: D o not add to previous draw Performed By: #### 1 0, 11045, 18528 #### [facility] [address] [facility] [place] [address], [facility] CBC W/DIFFon 11-22-2021 ABS IMM GRANS 0.1 10*3/uL Normal 0.0-0.2 [facility] [place] [facility] Comment on above: Performed By: #### 3 2043 #### [facility] [address] [place] [address], [facility] ABS NEUTROPHILS 6.8 10*3/uL Normal 1.6-7.6 [facility] [place] [facility] Comment on above: Performed By: #### 3 2043 #### [facility] [address] [place] [address], [facility] Basophils (Bld) [#/Vol] 0.1 10*3/uL Normal 0.0-0.2 [facility] [place] [facility] Comment on above: Performed By: #### 3 2043 #### [facility] [address] [facility] [place] [address], [facility] Basophils/100 WBC (Bld) 0.8 % Normal 0.0-1.0 T [facility] Comment on above: Performed By: #### 3 2043 #### [facility] [address] [address], [facility] Eosinophils (Bld) [#/Vol] 0.4 10*3/uL Normal 0.0-0.5 [facility] Comment on above: Performed By: #### 3 2043 #### [facility] [address] [place] [address], [facility] Eosinophils/100 WBC (Bld) 3.6 % Normal 0.0-6.0 [facility] Comment on above: Performed By: #### 3 2043 #### [facility] [address] [facility] [address], [facility] Erythrocyte distribution width (RBC) [Ratio] 12.6 % Normal 11.5-15.0 [facility] Comment on above: Performed By: #### 2043 #### [facility] [address] [place] [address], [facility] Hematocrit (Bld) [Volume fraction] 42.3 % Normal 36.0-45.0 [facility] Comment on above: Performed By: #### 3 2043 #### [facility] [address] [facility] [place] [address], [facility] Hemoglobin (Bld) [Mass/Vol] 14.9 g/dL Normal 12.0-15.0 [facility] [place] [facility] Comment on above: Performed By: #### 3 2043 #### [facility] [address] [facility] [place] [address], [facility] IMMATURE GRANS 0.5 % Normal 0.0-1.0 [facility] Comment on above: Performed By: #### 3 2043 #### [facility] [address] [place] [address], [facility] Lymphocytes (Bld) [#/Vol] 2.3 10*3/uL Normal 1.2-4.0 [facility] Comment on above: Performed By: #### 3 2043 #### [facility] [address] [place] [address], [facility] Lymphocytes/100 WBC (Bld) 21.8 % Normal 20.0-45.0 [facility] Comment on above: Performed By: #### 3 2043 #### [facility] [address] [facility] [place] [address], [facility] MCH (RBC) [Entitic mass] 34.3 pg High 27.0-33.0 [facility] Comment on above: Performed By: #### 3 2043 #### [facility] [address] [place] [address], [facility] MCHC (RBC) [Mass/Vol] 35.2 g/dL High 32.0-35.0 [facility] Comment on above: Performed By: #### 3 2043 #### [facility] [address] [place] [address], [facility] MCV (RBC) [Entitic vol] 97.2 fL Normal 82.0-98.0 T boy[facility] Comment on above: Performed By: #### 3 2043 #### [facility] [address] [place] [address], [facility] Monocytes (Bld) [#/Vol] 0.8 10*3/uL Normal 0.1-1.0 [facility] Comment on above: Performed By: #### 3 2043 #### [facility] [address] [place] [address], [facility] MONOS 7.8 % Normal 5.0-12.0 [facility] Comment on above: Performed By: #### 3 2043 #### [facility] [address] [place] [address], [facility] Neutrophils/100 WBC (Bld) 65.5 % Normal 40.0-72.0 [facility] [place] [facility] Comment on above: Performed By: #### 3 2043 #### [facility] [address] [place] [address], [facility] Nucleated RBC/100 WBC (Bld) [Ratio] 0 % Normal 0-0 [facility] Comment on above: Performed By: #### 3 2043 #### [facility] [address] [place] [address], [facility] PLAT CNT 231 10*3/uL Normal 150-400 [facility] [place] [facility] Comment on above: Performed By: #### 3 2043 #### [facility] [address] [place] [address], [facility] RBC (Bld) [#/Vol] 4.35 10*6/uL Normal 3.80-5.00 [facility] [place] [facility] Comment on above: Performed By: #### 3 2043 #### [facility] [address] [place] [address], [facility] WBC (Bld) [#/Vol] 10.35 10*3/uL Normal 4.00-10.60 [facility] [place] [facility] Comment on above: Performed By: #### 3 2043 #### [facility] [address] [place] [address], [facility] MAGNESIUM BLOODon 11-22-2021 Magnesium [Mass/Vol] 2.1 mg/dL Normal 1.9-2.7 [facility] Comment on above: Order Comment: No: D o not add to previous draw Performed By: #### 1 0070, 10793, 07862 #### [facility] [address] [place] [address], [facility] TROPONIN-Ion 11-22-2021 Troponin I.cardiac [Mass/Vol] 0.00 ng/mL Normal 0.00-0.04 [facility] Comment on above: Order Comment: No: D o not add to previous draw Result Comment: REFE RENCE RANGES: 0.00 - 0.04 ng/ml NORMAL 0.05 - 0.50 ng/ml INDETERMINATE > 0.50 ng/ml CONSISTENT WITH AN M.I. Performed By: #### 1 0070, 38380, 21493 #### [facility] [address] [facility] [place] [address], [facility] Troponin I.cardiac [Mass/Vol] 0.01 ng/mL Normal 0.00-0.04 [facility] Comment on above: Order Comment: No: D o not add to previous draw Result Comment: REFE RENCE RANGES: 0.00 - 0.04 ng/ml NORMAL 0.05 - 0.50 ng/ml INDETERMINATE > 0.50 ng/ml CONSISTENT WITH AN M.I. Performed By: #### 3 5200 #### [facility] [address] [place] [address], [facility] ECHOCARDIO M/2D COMPLETEon 0 11-05-2021 ECHOCARDIO M/2D COMPLETE Patient: ABDIRAHMAN GOMEZ Exam Date: 11/05/2021 : 1940 Gender:F Ordering : VENUS TONG Admission #: [id number] Family : DR IRISH FAUSTIN . Order #: [id number] CLICK HERE TO VIEW EXAM ECHOCARDIOGRAM REPORT [...] Lopez M.D. on 11/06/2021 at 13:18 Normal [facility] MG MAMM SCREEN 3D MILANA CADon 10-27-2021 MG MAMM SCREEN 3D MILANA CAD Patient: ABDIRAHMAN GOMEZ Exam Date: 10/27/2021 : 1940 Gender:F Ordering : DR IRISH FAUSTIN . Admission #: [id number] Family : Order #: [id number] CLICK HERE TO VIEW EXAM RADIOLOGY REPORT [...] None Family Cancers None LOCATION: [facility] BREAST COMPOSITION: Almost entirely fatty. [...] on 10/27/2021 at 11:44 Normal [facility] INSULINon 06-28-2021 Insulin 12.1 uIU/mL Normal 2.6-24.9 [facility] Comment on above: Performed By: #### I NSULIN #### [facility] [address] [place] [address] [address] Logan Payne BNPon 06-27-2021 Natriuretic peptide B (Bld) [Mass/Vol] 350.0 pg/mL Normal <=1,800.0 [facility] Comment on above: Performed By: #### T SH, BNP, CMP, LIPID, T7 #### [facility] [address] [place], [place] [address] Dr. Logan Payne CBC AUTO DIFFon 06-27-2021 BASO # 0.1 103/ul Normal 0.0-0.1 [facility] Comment on above: Performed By: #### T SH, BNP, CMP, LIPID, T7 #### [facility] [address] [place] [address] Dr. Logan Payne Basophils/100 WBC (Bld) 1.1 % Normal 0.2-2.0 [facility] Comment on above: Performed By: #### T SH, BNP, CMP, LIPID, T7 #### [facility] [address] [place] [address] Dr. Logan Payne EO # 0.3 103/ul Normal 0.0-0.7 [facility] Comment on above: Performed By: #### T SH, BNP, CMP, LIPID, T7 #### [facility] [address] [place] [address] Dr. Logan Payne Eosinophils/100 WBC (Bld) 2.8 % Normal 0.9-7.0 [facility] Comment on above: Performed By: #### T SH, BNP, CMP, LIPID, T7 #### [facility] [address] [place] [address] Dr. Logan Payne Erythrocyte distribution width (RBC) [Ratio] 12.9 % Normal 11.0-15.0 [facility] Comment on above: Performed By: #### T SH, BNP, CMP, LIPID, T7 #### [facility] [address] [place] [address] Dr. Logan Payne Hematocrit (Bld) [Volume fraction] 46.6 % Normal 36.0-48.0 [facility] Comment on above: Performed By: #### T SH, BNP, CMP, LIPID, T7 #### [facility] [address] [place] [address] Dr. Logan Payne Hemoglobin (Bld) [Mass/Vol] 15.0 g/dL Normal 12.0-16.0 [facility] Comment on above: Performed By: #### T SH, BNP, CMP, LIPID, T7 #### [facility] [address] [place] [address] Dr. Logan Payne IG # 0.05 10e3/ul Critically high 0.00-0.03 [facility] Comment on above: Performed By: #### T SH, BNP, CMP, LIPID, T7 #### [facility] [address] [place] [address] Dr. Logan Payne IG % 0.5 % Normal 0.0-0.5 [facility] Comment on above: Performed By: #### T SH, BNP, CMP, LIPID, T7 #### [facility] [address] [place] [address] Dr. Logan Payne LYMPH # 2.8 103/ul Normal 1.2-3.8 [facility] Comment on above: Performed By: #### T SH, BNP, CMP, LIPID, T7 #### [facility] [address] [place] [address] Dr. Logan Payne Lymphocytes/100 WBC (Bld) 27.4 % Normal 20.5-60.0 [facility] Comment on above: Performed By: #### T SH, BNP, CMP, LIPID, T7 #### [facility] [address] [place] [address] Dr. Logan Payne MANUAL DIFF REQ NO Normal [facility] Comment on above: Performed By: #### T SH, BNP, CMP, LIPID, T7 #### [facility] [address] [place] [address] Dr. Logan Payne MCH (RBC) [Entitic mass] 33.9 pg Normal 26.7-34.0 [facility] Comment on above: Performed By: #### T SH, BNP, CMP, LIPID, T7 #### [facility] [address] [place] [address] Dr. Logan Payne MCHC (RBC) [Mass/Vol] 32.2 g/dL Normal 29.9-35.2 [facility] Comment on above: Performed By: #### T SH, BNP, CMP, LIPID, T7 #### [facility] [address] [place] [address] Dr. Logan Payne MCV (RBC) [Entitic vol] 105.2 fL Critically high 81.0-[address] [facility] Comment on above: Performed By: #### T SH, BNP, CMP, LIPID, T7 #### [facility] [address] [address] [address] Logan Payne MONO # 0.7 103/ul Normal 0.3-0.8 [facility] Comment on above: Performed By: #### T SH, BNP, CMP, LIPID, T7 #### [facility] [address] [place] [address] Dr. Logan Payne Monocytes/100 WBC (Bld) 7.2 % Normal 1.7-12.0 [facility] Comment on above: Performed By: #### T SH, BNP, CMP, LIPID, T7 #### [facility] [address] [place] [address] Dr. Logan Payne NEUT # 6.3 103/ul Normal 1.4-6.5 [facility] Comment on above: Performed By: #### T SH, BNP, CMP, LIPID, T7 #### [facility] [address] [place] [address] Dr. Logan Payne Neutrophils/100 WBC (Bld) 61.0 % Normal 43.0-75.0 [facility] Comment on above: Performed By: #### T SH, BNP, CMP, LIPID, T7 #### [facility] [address] [place], [place] [address] Dr. Logan Payne Platelet mean volume (Bld) [Entitic vol] 9.3 fL Critically low 9.5-13.5 [facility] Comment on above: Performed By: #### T SH, BNP, CMP, LIPID, T7 #### [facility] [address] [place] [address] Dr. Logan Payne PLT 245 103/ul Normal 150-450 [facility] Comment on above: Performed By: #### T SH, BNP, CMP, LIPID, T7 #### [facility] [address] [place] [address] Dr. Logan Payne RBC 4.43 106/ul Normal 4.20-5.40 [facility] Comment on above: Result Comment: Macr ocytosis 1+ Performed By: #### T SH, BNP, CMP, LIPID, T7 #### [facility] [address] [address] [address] Logan Payne WBC 10.3 103/ul Normal 4.0-11.0 [facility] Comment on above: Performed By: #### T SH, BNP, CMP, LIPID, T7 #### [facility] [address] [place] [address] Dr. Logan Payne FREE THYROXINE INDEX T7on FTI 3.[address] [facility] Comment on above: Performed By: #### T SH, BNP, CMP, LIPID, T7 #### [facility] [address] [place] [address] Dr. Logan Payne T3U 31.0 % Normal 23.5-40.5 [facility] Comment on above: Performed By: #### T SH, BNP, CMP, LIPID, T7 #### [facility] [address] [place] [address] Dr. Logan aPyne T4 [Mass/Vol] 9.70 ug/dL Normal 5.53-11.00 [facility] Comment on above: Performed By: #### T SH, BNP, CMP, LIPID, T7 #### [facility] [address] [place] [address] Dr. Logan Payne GLYCOHEMOGLOBIN A1Con 2021 ADA RECOMMENDATION ADA THERAPEUTIC TARGET 6.0 - 7.0 ACTION SUGGESTED > 7.[address] [facility] Comment on above: Performed By: #### A 1C #### [facility] [address] [place] [address] Dr. Logan Payne Glucose [Mass/Vol] 126 mg/dL Normal [facility] Comment on above: Performed By: #### A 1C #### [facility] [address] [place] [address] Dr. Logan Payne HbA1c (Bld) [Mass fraction] 6.0 % Normal <=6.0 [facility] Comment on above: Performed By: #### A 1C #### [facility] [address] [place] [address] Dr. Logan Payne IRONon 06-27-2021 Iron [Mass/Vol] 90.0 ug/dL Normal 37.0-170.0 [facility] Comment on above: Performed By: #### I GRANT #### [facility] [address] [place] [address] Dr. Loagn Payne LIPID PROFILEon 06-27-2021 CHOL-HDL RATIO NORM SEE BELOW Normal [facility] Comment on above: Result Comment: 3.3 - 4.4 LOW RISK 4.4 - 7.1 AVERAGE RISK 7.1 - 11.0 MODERATE RISK >11.0 HIGH RISK Performed By: #### T SH, BNP, CMP, LIPID, T7 #### [facility] [address] [address] [address] Logan Payne Cholesterol [Mass/Vol] 209 mg/dL Critically high <=200 [facility] Comment on above: Performed By: #### T SH, BNP, CMP, LIPID, T7 #### [facility] [address] [address] [address] Logan Payne Cholesterol in HDL [Mass/Vol] 62 mg/dL Normal [facility] Comment on above: Performed By: #### T SH, BNP, CMP, LIPID, T7 #### [facility] [address] [place] [address] Dr. Logan Payne Cholesterol in LDL [Mass/Vol] 104.2 mg/dL Normal [facility] Comment on above: Performed By: #### T SH, BNP, CMP, LIPID, T7 #### [facility] [address] [place] [address] Dr. Logan Payne Cholesterol.total/Gabriela sterol in HDL [Mass ratio] 3.4 {ratio} Normal [facility] Comment on above: Performed By: #### T SH, BNP, CMP, LIPID, T7 #### [facility] [address] [place] [address] Dr. Logan Payne HDL NORMAL > or = 60 mg/dl - LO W CARDIOVASCULAR RISK <40 mg/dl - HIGH CARDIOVASCULAR RISK Normal [facility] Comment on above: Performed By: #### T SH, BNP, CMP, LIPID, T7 #### [facility] [address] [address] [address] Logan Payne LDL CALC NORMAL SEE BELOW Normal [facility] Comment on above: Result Comment: <100 mg/dl OPTIMAL 100 - 129 mg/dl NEAR OR ABOVE OPTIMAL 130 - 159 mg/dl BORDERLINE HIGH 160 - 189 mg/dl HIGH >190 mg/dl VERY HIGH Performed By: #### T SH, BNP, CMP, LIPID, T7 #### [facility] [address] [address] [address] Logan Payne Triglyceride [Mass/Vol] 214 mg/dL Critically high <=150 [facility] Comment on above: Performed By: #### T SH, BNP, CMP, LIPID, T7 #### [facility] [address] [address] [address] Logna Payne VLDL CALC 42.8 mg/dL Normal [facility] Comment on above: Performed By: #### T SH, BNP, CMP, LIPID, T7 #### [facility] [address] [place] [address] Dr. Logan Payne PROF 14(COMP METB)on 022 Albumin [Mass/Vol] 4.3 g/dL Normal 3.5-5.0 [facility] Comment on above: Performed By: #### T SH, BNP, CMP, LIPID, T7 #### [facility] [address] [place] [address] Dr. Logan Payne Albumin/Globulin [Mass ratio] 1.0 {ratio} Normal [facility] Comment on above: Performed By: #### T SH, BNP, CMP, LIPID, T7 #### [facility] [address] [place] [address] Dr. Logan Payne ALP [Catalytic activity/Vol] 108 U/L Normal 38-126 [facility] Comment on above: Performed By: #### T SH, BNP, CMP, LIPID, T7 #### [facility] [address] [place] [address] Dr. Logan Payne ALT [Catalytic activity/Vol] 59 U/L Critically high 9-52 [facility] Comment on above: Performed By: #### T SH, BNP, CMP, LIPID, T7 #### [facility] [address] [address] [address] Logan Payne Anion gap [Moles/Vol] 16.0 mmol/L Normal [facility] Comment on above: Performed By: #### T SH, BNP, CMP, LIPID, T7 #### [facility] [address] [address] [address] Logan Payne AST [Catalytic activity/Vol] 52 U/L Critically high 14-36 [facility] Comment on above: Performed By: #### T SH, BNP, CMP, LIPID, T7 #### [facility] [address] [place] [address] Dr. Logan Payne Bilirubin [Mass/Vol] 0.3 mg/dL Normal 0.2-1.3 [facility] Comment on above: Performed By: #### T SH, BNP, CMP, LIPID, T7 #### [facility] [address] [place] [address] Dr. Logan Payne Calcium [Mass/Vol] 9.9 mg/dL Normal 8.4-10.2 [facility] Comment on above: Performed By: #### T SH, BNP, CMP, LIPID, T7 #### [facility] [address] [place] [address] Dr. Logan Payne Chloride [Moles/Vol] 105 mmol/L Normal 98-107 [facility] Comment on above: Performed By: #### T SH, BNP, CMP, LIPID, T7 #### [facility] [address] [place] [address] Dr. Logan Payne CO2 [Moles/Vol] 21.6 mmol/L Critically low 22.0-30.0 [facility] Comment on above: Performed By: #### T SH, BNP, CMP, LIPID, T7 #### [facility] [address] [place] [address] Dr. Logan Payne Creatinine [Mass/Vol] 1.01 mg/dL Normal 0.52-1.04 [facility] Comment on above: Performed By: #### T SH, BNP, CMP, LIPID, T7 #### [facility] [address] [place] [address] Dr. Logan Payne EGFR-AF GEORGIAN >60 Normal >=60 [facility] Comment on above: Performed By: #### T SH, BNP, CMP, LIPID, T7 #### [facility] [address] [address] [address] Logan Payne EGFR-NON AF GEORGIAN 53 mL/min/1.73m2 Critically low >=60 [facility] Comment on above: Performed By: #### T SH, BNP, CMP, LIPID, T7 #### [facility] [address] [address] [address] Logan Payne Globulin (S) [Mass/Vol] 4.1 g/dL Normal [facility] Comment on above: Performed By: #### T SH, BNP, CMP, LIPID, T7 #### [facility] [address] [address] [address] Logan Payne Glucose [Mass/Vol] 117 mg/dL Critically high 74-106 [facility] Comment on above: Performed By: #### T SH, BNP, CMP, LIPID, T7 #### [facility] [address] [address] [address] Logan Payne Potassium [Moles/Vol] 4.6 mmol/L Normal 3.4-5.0 [facility] Comment on above: Performed By: #### T SH, BNP, CMP, LIPID, T7 #### [facility] [address] [place] [address] Dr. Logan Payne Protein [Mass/Vol] 8.4 g/dL Critically high 6.1-8.2 [facility] Comment on above: Performed By: #### T SH, BNP, CMP, LIPID, T7 #### [facility] [address] [address] [address] Logan Payne Sodium [Moles/Vol] 138 mmol/L Normal 137-145 [facility] Comment on above: Performed By: #### T SH, BNP, CMP, LIPID, T7 #### [facility] [address] [address] [address] Logan Payne Urea nitrogen [Mass/Vol] 18.0 mg/dL Critically high 7.0-17.0 [facility] Comment on above: Performed By: #### T SH, BNP, CMP, LIPID, T7 #### [facility] [address] [address] [address] Logan Payne Urea nitrogen/Creatinine [Mass ratio] 17.8 mg/mg Normal [facility] Comment on above: Performed By: #### T SH, BNP, CMP, LIPID, T7 #### [facility] [address] [address] [address] Logan Payne TSHon 06-27-2021 TSH 1.510 uIU/mL Normal 0.470-4.680 [facility] Comment on above: Performed By: #### T SH, BNP, CMP, LIPID, T7 #### [facility] [address] [address] [address] Logan Payne TSH RANGE SEE BELOW Normal [facility] Comment on above: Result Comment: <0.3 4 UIU/ml HYPERTHYROID 0.34-5.60 UIU/ml EUTHYROID >5.60 UIU/ml HYPOTHYROID Performed By: #### T SH, BNP, CMP, LIPID, T7 #### [facility] [address] [address] [address] Logan Payne Vital Signs Date Time Vital Sign Value Performing Clinician Gabbie negron 06-25-2022 11:18-0500 Body temperature 97.8 [degF] MD Irish Faustin Work Phone: [facility] 06-25-2022 11:18-0500 Diastolic blood pressure 70 mm[Hg] MD Irish Faustin Work Phone: [facility] 06-25-2022 11:18-0500 Heart rate 69 /min MD Irish Faustin Work Phone: [facility] 06-25-2022 11:18-0500 SaO2% (BldA) [Mass fraction] 94 % MD Irish Faustin Work Phone: [facility] 06-25-2022 11:18-0500 Systolic blood pressure 140 mm[Hg] MD Irish Faustin Work Phone: [facility] 06-25-2022 04:17-0500 Respiratory rate 18 /min MD Irish Faustin Work Phone: [facility] 06-24-2022 07:18-0500 Body height 157.48 cm MD Irish Faustin Work Phone: [facility] 06-22-2022 11:19-0500 Body weight 67.2 kg MD Irish Faustin Work Phone: [facility] 06-16-2022 16:00-0500 Body temperature 97.6 [degF] MD Irish Faustin Work Phone: [facility] 06-16-2022 16:00-0500 Diastolic blood pressure 75 mm[Hg] MD Irish Faustin Work Phone: [facility] 06-16-2022 16:00-0500 Heart rate 72 /min MD Irish Faustin Work Phone: [facility] 06-16-2022 16:00-0500 Respiratory rate 16 /min MD Irish Faustin Work Phone: [facility] 06-16-2022 16:00-0500 SaO2% (BldA) [Mass fraction] 96 % MD Irish Faustin Work Phone: [facility] 06-16-2022 16:00-0500 Systolic blood pressure 127 mm[Hg] MD Irish Faustin Work Phone: [facility] 06-16-2022 06:00-0500 Body weight 68.8 kg MD Irish Faustin Work Phone: [facility] 06-11-2022 15:23-0500 Body height 157.48 cm MD Irish Faustin Work Phone: [facility] 06-09-2022 12:00-0500 Inhaled oxygen flow rate 2 L/min MD Irish Faustin Work Phone: [facility] Encounters Encounter Date Encounter Type Care Provider Facility Start: 11-15-2024 [facility]: [facility] 06-27-2024 End: 06-27-2024 ambulatory [facility] Start: 04-17-2024 End: 04-17[facility]: 12-28-2023 End: 12-28-2023 ambulatory [facility] Start: 06-16-2022 End: 06-25-2022 Evaluation and management of inpatient Stiven Zaman Facility:[facility] Start: 06-16-2022 End: 06-25-2022 Evaluation and management of inpatient MD Irish Faustin Work Phone: [facility] Work Phone: Start: 06-13-[address] Yoav Prado Facility:[id number] Start: 06-11-[address] Irish Faustin Facility:[facility] Start: 06-09-[address] Irish Faustin Facility:[id number] Start: 06-09-2022 End: 06-16-2022 Evaluation and management of inpatient Chema Annia Facility:[facility] Start: 06-09-2022 End: 06-16-2022 Evaluation and management of inpatient MD Irish Faustin Work Phone: [facility] Work Phone: Start: 06-08-2022 End: 06-09-[address] IRISH FAUSTIN Facility:[facility] Start: 01-12-2022 ambulatory VENUS TONG Facility :[facility] Start: 11-27-2021 ambulatory VENUS TONG Facility :[facility] Start: 11-22-2021 End: 11-25-2021 Evaluation and management of inpatient PHYSICIAN UNKNOWN Facility:[facility] Start: 11-05-2021 End: 11-06-2021 ambulatory [...] Date Care Activity Detail Author Start: 06-25-2022 [facility] Start: 06-16-2022 [facility] Start: 06-16-2022 Hospital admission [facility] Start: 06-16-2022 Referral to clinical weed sprayer [facility] Start: 06-16-2022 [facility] Start: 06-12-2022 Doppler ultrasonogra phy of bilateral carotid arteries US carotid doppler BI [facility] Start: 06-12-2022 US.doppler Carotid a rteries - bilateral [facility] Start: 06-09-2022 Hospital admission [facility] Patient Education Stroke (DC) [facility] Work Phone: Patient referral [facility] Work Phone: [facility] Payers Date Payer Category Payer Self-pay 1981 Medicare [id number] 1959 Medicare [id number] 1959 Private Health Insurance [id number] 1959 Self-pay [id number] 1940 Unknown [id number] 2.16.8 [id number] 1940 Unknown [id number] 2.16.84 [id number] 1940 Unknown [id number] 2.16.84 [id number] 1940 Unknown [id number] 2.16.84 [id number] 1940 Unknown [id number] 2.16.84 [id number] 1940 Unknown [id number] 2.16.84 [id number] 1940 Unknown [id number] 2.16.84 [id number] 1940 Unknown [id number] 2.16. [id number] 1940 Unknown [id number] 2.16. [id number] Unknown [id number] 2.16.8 [id number] Unknown [id number] 2.16.8 [id number] Social History Date Type Detail Facility Start: 06-09-2022 End: 06-17-2022 Tobacco smoking status NHIS Never smoked tobacco (finding) [facility] Start: 1940 Sex Assigned At Female [facility] Goals Date Patient Goal Desired Activity /State Functional Status Date Assessment Result Facility 06-25-2022 Functional status Patient at Baseline [facility] Work Phone: 06-16-2022 Functional status Patient is Pro gressing Toward Baseline [facility] Work Phone: Mental Status Date Assessment Result Facility 06-25-2022 Cognitive function Cognitive Sta tus Patient at Baseline [facility] Work Phone: 06-16-2022 Cognitive function Cognitive Sta tus Patient is Progressing Toward Baseline [facility] Work Phone: Clinical Notes 06-15-2022 to 04-17-2024 Note Date & Type Note Facility 04-17-2024 Note [facility] Cardiology Clinic Note Chief Complaint: Patient here for 1 year follow up CAD, PAF, carotid artery stenosis, and valve disorder. Had echo in May 2023. She denies worsening [place], palpitations, and bleeding on Eliquis. Does get intermittent pain she says from under her arms to her back and chest. She does get steroid injections from Dr. Faustin for back pain. HPI: Abdirahman Gomez is a 83 y.o. female past [...] 10 mg tablet, Disp: , Rfl: omega 3-hoz-wgw-fish oil (Fish OiL) 1,000 mg (120 mg-180 [...] no carotid brui (more content not included)... [facility] 06-24-2022 Discharge summary Note Date/Time June 24, 2022 12:11pm [facility] [address] [place] [address] Discharge Summary Signed Patient: Abdirahman Gomez MR#: [id number] : 1940 Acct:[id number] Age/Sex: 81 / F Adm Date: 3 Loc: Room: [address] [place] [address]: Stiven Zaman MD Copies to: [...] lobe. She presented to outside facility around [place] with several days of generalized weakness. Her troponins were elevated. She was transferred to [facility]. Cardiology was consulted, did not feel acute [...] blood in the stool on admission to [place], consistent with lower GI bleed. She was [...] ADLs. She will be discharged home with [facility] home health services tomorrow. She [...] Plan Discharge Plan Patient Disposition: Home Health [facility] Activity: Ambulate as Tolerated Diet: Low-Sodium and Low-Cholesterol Comment: Heart Healthy 3-4gm Sodium Additional Instructions: -Code Status: Full Code -Activity: Ambulate as tolerated -Diet: Heart Healthy 3-4gm Sodium, low cholesterol -Follow feeding strategies: Sit upright 90 degrees, pacing/slow rate, alternate liquids/solids. Your Home Health agency is [facility] ( ). They will contact you [...] <Electronically signed by KIM Crowell> 06/25/22 1308 [facility] Work Phone: 1(753) 906-611401-11-2023 Hospital Discharge instructionsAmbulatory Orders* Initiate Home Health Time Frame: 06/24/22, Location: Determined By Patient Additional Instructions -Code Status: Full Code -Activity: Ambulate as tolerated -Diet: Heart Healthy 3-4gm Sodium, low cholesterol -Follow feeding strategies: Sit upright 90 degrees, pacing/slow rate, alternate liquids/solids. Your Home Health agency is [facility] [address] ( ). They will contact you within [...] inform them prior to your appointment.[facility] Work Phone: 1(290) 297-498601-10-2023 Progress note Author Stiven Zaman [facility] June 23, 2022 9:35pm Note Date/Time June 22, 2022 11 :35am [facility] [address] [place] [address] Physiatry(Rehab) Progress Note Signed Patient: Abdirahman Gomez MR#: [id number] : 1940 Acct:[id number] Age/Sex: 81 / F Adm Date: 3 Loc: Room: [address] [place] [address] Type: ADM IN Attending Dr: Stiven Zaman [...] lobe. She presented to outside facility around [place] with several days of generalized weakness. Her troponins were elevated. She was transferred to [facility]. Cardiology was consulted, did not feel acute [...] blood in the stool on admission to [place], consistent with lower GI bleed. She was [...] Chronic conditions stable. Review of Systems <Lori CrowellCONCHITAN - Last Filed: 06/22/22 11:45> Review of [...] additional complaints, except as documented Exam <Lori CONCHITA CrowellN - Last Filed: 06/22/22 11:45> Physical Exam [...] Insight: Good Judgment: Good Objective <Lori Crowell, SAND TEMPERER - Last Filed: 06/22/22 11:45> Labs 06/17/22 [...] mg 06/16/22 18:36 Bisacodyl 10 Mg Supp.Rect ME 06/16/23 18:35 DAILY PRN Constipation Carvedilol 12.5 mg 06/16/22 21:00 06/22/22 09:13 Carvedilol 12.5 Mg Tablet PO 06/16/23 20:59 12.5 mg BID JAK Administration Docusate Sodium 100 mg 06/16/22 18:36 Docusate 100 Mg Capsule PO 06/16/23 18:35 BID PRN Constipation Docusate Sodium 283 mg 06/16/22 18:36 Docusate Enema 283 Mg/5 Ml Enema ME 06/16/23 18:35 DAILY PRN Constipation Furosemide 20 [...] greater than 15 minutes for services, including kflr-oc-nwsv encounter with the patient, discussion of the case, plan of care, and exam; and ywlnqfu-vk-xwem activities, such as reviewing pertinent loss prevention consultant documentation, recent therapy notes, laboratory and radiology studies, and discussion of case with care team including physician, nursing, pillowcase cleaner, and therapists. More than 50 % of [...] greater than 15 minutes for services, including hshl-hj-hdhn encounter with the patient, discussion of the case, plan of care, and exam; and bupdzwi-bx-capj activities, such as reviewing pertinent loss prevention consultant documentation, recent therapy notes, laboratory and radiology studies, and discussion of case with care team including physician, nursing, pillowcase cleaner, and therapists. More than 50 % of time was spent on patient/family counseling or coordination ofcare. Decision Plan: I completed a substantive portion of this encounter, the medical decision makingportion of this note in its entirety, including Allied health note review, nursing note review, loss prevention consultant note review, discussion with nursing and case management, and more than 50% of my time was spent on counseling and coordination of care, time spent 25 minutes Patient was personally seen by me, Dr. Zaman, on the day of encounter, reviewed the history and the relevant portions of the chart, including current orders, allied health and loss prevention consultant notes, labs/imaging and performed smith elements of exam and I formulated the plan of care and facilitated the medical decision making. Documented By: Stiven Zaman MD 06/22/22 1133 Signed By: <Electronically signed by Stiven Zaman MD> 06/23/225 <Electronically signed by KIM Crowell> 06/22/22 1145 [facility] Work Phone: 1([phone]) 984-167601-10-2023 Progress note Author Stiven Zaman [facility] June 23, 2022 9:25pm Note Date/Time June 23, 2022 1 2:28pm [facility] [address] [place] [address] Physiatry(Rehab) Progress Note Signed Patient: Abdirahman Gomez MR#: [id number] : 1940 Acct:[id number] Age/Sex: 81 / F Adm Date: 3 Loc: Room: 7G8418-0 Type: ADM IN Attending Dr: Stiven Zaman [...] lobe. She presented to outside facility around [place] with several days of generalized weakness. Her troponins were elevated. She was transferred to [facility]. Cardiology was consulted, did not feel acute [...] blood in the stool on admission to [place], consistent with lower GI bleed. She was [...] % (Auto) 55.7 Lymph % (Auto) 31.9 [place] % (Auto) 8.4 Eos % (Auto) 3.2 Baso % (Auto) 0.8 Nucleat RBC Rel Count 0.1 Neut # (Auto) 4.5 Lymph # (Auto) 2.6 [place] # (Auto) 0.7 Eos # (Auto) 0.3 [...] mg 06/16/22 18:36 Bisacodyl 10 Mg Supp.Rect ME 06/16/23 18:35 DAILY PRN Constipation Carvedilol 12.5 mg 06/16/22 21:00 06/23/22 10:00 Carvedilol 12.5 Mg Tablet PO 06/16/23 20:59 12.5 mg BID JAK Administration Docusate Sodium 100 mg 06/16/22 18:36 Docusate 100 Mg Capsule PO 06/16/23 18:35 BID PRN Constipation Docusate Sodium 283 mg 06/16/22 18:36 Docusate Enema 283 Mg/5 Ml Enema ME 06/16/23 18:35 DAILY PRN Constipation Furosemide 20 [...] mcg DAILY JAK Administration Assessment/Plan <Lori Crowell, SAND TEMPERER - Last Filed: 06/23/22 12:28> Assessment/Plan (1) [...] greater than 15 minutes for services, including bizy-zd-yvat encounter with the patient, discussion of the case, plan of care, and exam; and ifxtvhz-oj-[id number] activities, such as reviewing pertinent loss prevention consultant documentation, recent therapy notes, laboratory and radiology studies, and discussion of case with care team including physician, nursing, pillowcase cleaner, and therapists. More than 50 % of [...] greater than 15 minutes for services, including eblt-vx-lcnt encounter with the patient, discussion of the case, plan of care, and exam; and lvzqnct-ju-vqge activities, such as reviewing pertinent loss prevention consultant documentation, recent therapy notes, laboratory and radiology studies, and discussion of case with care team including physician, nursing, pillowcase cleaner, and therapists. More than 50 % of time was spent on patient/family counseling or coordination ofcare. Decision Plan: I completed a substantive portion of this encounter, the medical decision makingportion of this note in its entirety, including Allied health note review, nursing note review, loss prevention consultant note review, discussion with nursing and case management, and more than 50% of my time was spent on counseling and coordination of care, time spent 25 minutes Patient was personally seen by me, Dr. Zaman, on the day of encounter, reviewed the history and the relevant portions of the chart, including current orders, allied health and loss prevention consultant notes, labs/imaging and performed smith elements of exam and I formulated the plan of care and facilitated the medical decision making. Documented By: Stiven Zaman MD 06/23/221220 Signed By: <Electronically signed by Stiven Zaman MD> 06/23/222124 <Electronically signed by KIM Crowell> 06/23/228 [facility] Work Phone: 1(175) 536-510001-06-2023 Progress note Author Stiven Zaman [facility] June 19, 2022 3:19pm Note Date/Time June 19, 2022 3: 19pm [facility] [address] [place] [address] Physiatry(Rehab) Progress Note Signed Patient: Abdirahman Gomez MR#: [id number] : 1940 Acct:[id number] Age/Sex: 81 / F Adm Date: 3 Loc: Room: 1I4816-9 Type: ADM IN Attending Dr: Stiven Zaman [...] lobe. She presented to outside facility around [place] with several days of generalized weakness. Her troponins were elevated. She was transferred to [facility]. Cardiology was consulted, did not feel acute [...] blood in the stool on admission to [place], consistent with lower GI bleed. She was [...] mg 06/16/22 18:36 Bisacodyl 10 Mg Supp.Rect ME 06/16/23 18:35 DAILY PRN Constipation Carvedilol 12.5 mg 06/16/22 21:00 06/19/22 08:26 Carvedilol 12.5 Mg Tablet PO 06/16/23 20:59 12.5 mg BID JAK Administration Docusate Sodium 100 mg 06/16/22 18:36 Docusate 100 Mg Capsule PO 06/16/23 18:35 BID PRN Constipation Docusate Sodium 283 mg 06/16/22 18:36 Docusate Enema 283 Mg/5 Ml Enema ME 06/16/23 18:35 DAILY PRN Constipation Furosemide 20 [...] Allied health note review, nursing note review, loss prevention consultant note review, discussion with nursing and case management, and more than 50% of my time was spent on counseling and coordination of care, time spent 35 minutes Patient was personally seen by me, Dr. Zaman, on the day of encounter, reviewed the history and the relevant portions of the chart, including current orders, allied health and loss prevention consultant notes, labs/imaging and performed smith elements of exam and I formulated the plan of care and facilitated the medical decision making. Documented By: Stiven Zaman MD 06/19/22 1516 Signed By: <Electronically signed by Stiven Zaman MD> 06/19/22 1519 [facility] Work Phone: 1(325) 580-795001-05-2023 Progress note Author Stiven Zaman [facility] June 18, 2022 12:49pm Note Date/Time June 18, 2022 12 :49[facility] EN[facility] [address] [place] [address] Physiatry(Rehab) Progress Note Signed Patient: Abdirahman Gomez MR#: [id number] : 1940 Acct:[id number] Age/Sex: 81 / F Adm Date: 3 Loc: Room: [address] [place] [address] Type: ADM IN Attending Dr: Stiven Zaman [...] lobe. She presented to outside facility around [place] with several days of generalized weakness. Her troponins were elevated. She was transferred to [facility]. Cardiology was consulted, did not feel acute [...] blood in the stool on admission to [place], consistent with lower GI bleed. She was [...] mg 06/16/22 18:36 Bisacodyl 10 Mg Supp.Rect ME 06/16/23 18:35 DAILY PRN Constipation Carvedilol 12.5 mg 06/16/22 21:00 06/18/22 07:49 Carvedilol 12.5 Mg Tablet PO 06/16/23 20:59 12.5 mg BID JAK Administration Docusate Sodium 100 mg 06/16/22 18:36 Docusate 100 Mg Capsule PO 06/16/23 18:35 BID PRN Constipation Docusate Sodium 283 mg 06/16/22 18:36 Docusate Enema 283 Mg/5 Ml Enema ME 06/16/23 18:35 DAILY PRN Constipation Furosemide 20 [...] Allied health note review, nursing note review, loss prevention consultant note review, discussion with nursing and case management, and more than 50% of my time was spent on counseling and coordination of care, time spent 30 minutes Patient was personally seen by me, Dr. Zaman, on the day of encounter, reviewed the history and the relevant portions of the chart, including current orders, allied health and loss prevention consultant notes, labs/imaging and performed smith elements of exam and I formulated the plan of care and facilitated the medical decision making. Documented By: Stiven Zaman MD 06/18/22 1249 Signed By: <Electronically signed by Stiven Zaman MD> 06/18/22 1249 [facility] Work Phone: 1(505) 761-318901-04-2023 History and physical note Author Stiven Zaman [facility] June 17, 2022 3:54pm Note Date/Time June 17, 2022 9: 40am [facility] [address] [place] [address] Physiatry (Rehab) H&P Signed Patient: Abdirahman Gomez MR#: [id number] : 1940 Acct:[id number] Age/Sex: 81 / F Adm Date: 3 Loc: Room: [id number] Type: ADM IN Attending Dr: Stiven Zaman [...] lobe. She presented to outside facility around [place] with several days of generalized weakness. Her troponins were elevated. She was transferred to [facility]. Cardiology was consulted, did not feel acute [...] blood in the stool on admission to [place], consistent with lower GI bleed. She was cleared to remain on Eliquis. Etiologylikely mild diverticular bleed. On evaluation today she feels generally well. 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 She does not appreciate any significant weakness at this point. [facility] Vaccinated for COVID-19?: Yes Medical History [...] (Amlodipine 10 Mg Tablet) 10 mg PO [facility] Stop: 06/16/23 21:59 Last Admin: 06/16/22 21:18 Dose: 10 mg Apixaban (Apixaban 5 Mg Tablet) 5 mg PO BID JAK Stop: 06/16/23 20:59 Last Admin: 06/17/22 08:04 Dose: 5 mg Atorvastatin Calcium (Atorvastatin 80 Mg Tablet) 80 mg PO HS [facility] Stop: 06/16/23 21:59 Last Admin: 06/16/22 21:18 Dose: 80 mg Bisacodyl (Bisacodyl 10 Mg Supp.Rect) 10 mg ME DAILY PRN PRN Reason: Constipation Stop: 06/16/23 18:35 Carvedilol (Carvedilol 12.5 Mg Tablet) 12.5 mg PO BID JAK Stop: 06/16/23 20:59 Last Admin: 06/17/22 08:04 Dose: 12.5 mg Docusate Sodium (Docusate 100 Mg Capsule) 100 mg PO BID PRN PRN Reason: Constipation Stop: 06/16/23 18:35 Docusate Sodium (Docusate Enema 283 Mg/5 Ml Enema) 283 mg ME DAILY PRN PRN Reason: Constipation Stop: 06/16/23 [...] 10 Mg Tablet) 10 mg PO HS [facility] Stop: 06/16/23 21:59 Last Admin: 06/16/22 21:17 Dose: 10 mg Omeprazole (Omeprazole 20 Mg Capsule.Dr) 40 mg PO DAILY AJK Stop: 06/17/23 08:59 Last Admin: 06/17/22 08:07 Dose: 40 mg Polyethylene Glycol (Polyethylene Glycol 3350 17 Gm Powd.Pack) 17 gm PO DAILY JAK Stop: 06/17/23 08:59 Last Admin: 06/17/22 08:07 Dose: Not Given Potassium Chloride (Potassium Chloride Er 20 Meq Tab.Er.Prt) 20 meq PO DAILY [facility] Stop: 06/17/23 08:59 Last Admin: 06/17/22 08:07 Dose: 20 meq Pramipexole Dihydrochloride (Pramipexole 0.5 Mg Tablet) 0.5 mg PO HS JAK Stop: 06/16/23 21:59 Last Admin: 06/16/22 22:34 Dose: 0.5 mg Psyllium Hydrophilic Mucilloid (Psyllium Husk 3.4 Gm Packet) 1 packet PO BID [facility] Stop: 06/16/23 20:59 Last Admin: 06/17/22 08:04 Dose: 1 packet Sennosides (Sennosides 8.6 Mg Tablet) 2 tab PO BID [facility] Stop: 06/16/23 20:59 Last Admin: 06/17/22 08:04 [...] 40 Mg Tablet) 40 mg PO BID [facility] Stop: 06/16/23 20:59 Last Admin: 06/17/22 08:06 Dose: 40 mg Vitamin D (Cholecalciferol 125 Mcg (5,000 Units) Tablet) 125 mcg PO DAILY [facility] Stop: 06/17/23 08:59 Last Admin: 06/17/22 08:06 Dose: 125 mcg Exam Physical Exam Vital Signs: Temp Pulse Resp BP Pulse Ox O2 Del Method 98.0 F 70 18 118/72 92 L Room Air 06/17/22 05:57 06/17/22 05:57 06/17/22 05:57 06/17/22 05:57 06/17/22 05:57 06/17/22 05:57 Narrative: General: cooperative, comfortable HENMD Head: normal to inspection Eyes General: appearance [...] % (Auto) 57.7 Lymph % (Auto) 29.1 [place] % (Auto) 9.4 Eos % (Auto) 2.4 Baso % (Auto) 1.4 Nucleat RBC Rel Count 0.0 Neut # (Auto) 6.3 Lymph # (Auto) 3.2 [place] # (Auto) 1.0 H Eos # (Auto) [...] mobility Anticipated interventions: Physician management, PT, OT, SEED MILL SUPERINTENDENT, , Dietitian, RehabNursing, Case management 2. Therapy Functional Outcome/Goal: Anticipate independent for transfers Anticipated interventions: Physician management, PT, OT, SEED MILL SUPERINTENDENT, Case management, Dietitian, Rehab Nursing 3. Therapy Functional Outcome/Goal: Anticipate independent for ambulation Anticipated interventions: Physician management, PT, OT, SEED MILL SUPERINTENDENT Case management, Dietitian, Rehab Nursing 4.Therapy Functional Outcome/Goal: Anticipate independent for self-care Anticipated interventions: Physician management, PT, OT, SEED MILL SUPERINTENDENT, Case management, Dietitian, Rehab Nursing 5.Therapy Functional Outcome/Goal: Anticipate independent for functional communication and swallowing Anticipated interventions: Physician management, PT, OT, SEED MILL SUPERINTENDENT, Case management, Dietitian, Rehab Nursing Required Therapy [...] additional therapy on as needed basis. Comments: SEED MILL SUPERINTENDENT to evaluate and treat patient?s cognition, language and communication skills, assess swallow function. Other: Dietitian, Rehab nursing, Wound, P&O, Neuropsychology as needed RATIONALE FOR IRF ADMISSION: Patient has both medical and functional complexities that require 24 hour daily monitoring and intervention from General Utility Worker as well as other consulting physicians including internal medicine as well as 24 hour daily extended insurance clerk nursing - for medical safe / optimal management. Patient requires interdisciplinary therapy team rehabilitation care including OT, PT, SEED MILL SUPERINTENDENT, SW, Psychology, Rehab Nursing, requires and can [...] Allied health note review, nursing note review, loss prevention consultant note review, discussion with nursing and case management, and more than 50% of my time was spent on counseling and coordination of care, time spent 55 minutes Patient was personally seen by me, Dr. Zaman, on the day of encounter, reviewed the history and the relevant portions of the chart, including current orders, allied health and loss prevention consultant notes, labs/imaging and performed smith elements of exam and I formulated the plan of care and facilitated the medical decision making. Documented By: Stiven Zaman MD 06/17/22 0940 Signed By: <Electronically signed by Stiven Zaman MD> 06/17/22 1556 [facility] Work Phone: 1(761) 582-329501-04-2023 Consult note Author Frida De La Cruz [facility] June 17, 2022 1:33pm Note Date/Time June 17, 2022 1: 33pm [facility] [address] [place] [address] Hospitalist Consult Note Signed Patient: Abdirahman Gomez MR#: [id number] : 1940 Acct:[id number] Age/Sex: 81 / F Adm Date: 3 Loc: Room: [id number] Type: ADM IN Attending Dr: Stiven Zaman [...] mg 06/16/22 18:36 Bisacodyl 10 Mg Supp.Rect ME 06/16/23 18:35 DAILY PRN Constipation Carvedilol 12.5 mg 06/16/22 21:00 06/17/22 08:04 Carvedilol 12.5 Mg Tablet PO 06/16/23 20:59 12.5 mg BID JAK Administration Docusate Sodium 100 mg 06/16/22 18:36 Docusate 100 Mg Capsule PO 06/16/23 18:35 BID PRN Constipation Docusate Sodium 283 mg 06/16/22 18:36 Docusate Enema 283 Mg/5 Ml Enema ME 06/16/23 18:35 DAILY PRN Constipation Furosemide 20 [...] oriented to place, time and person HEENT: [place] conjunctiva and NL buccal mucosa Neck: Supple, [...] % (Auto) 57.7, Lymph % (Auto) 29.1, [place] % (Auto) 9.4, Eos % (Auto) 2.4, Baso % (Auto) 1.4, Nucleat RBC Rel Count 0.0, Neut # (Auto) 6.3, Lymph # (Auto) 3.2, [place] # (Auto) 1.0 H, Eos # (Auto) [...] 60% left side. Follow-up appointment with Dr. Buehrer is plugged in so it doesn t [...] out patient providers to obtain [facility] record entirely to follow up on illnesses, symptoms, abnormal findings that I have and have not addressed during this encounter and hospitalization in out patient setting. Documented By: Frida De La Cruz MD 06/17/22 1329 Signed By: <Electronically signed by Frida De La Cruz MD> 06/17/22 9863 [facility] Work Phone: 1([phone]) 520-266501-03-2023 Progress note Author Frida De La Cruz [facility] June 16, 2022 11:42am Note Date/Time June 16, 2022 11 :42am [facility] [address] [place] [address] Progress Note Signed Patient: Abdirahman Gomez MR#: [id number] : 1940 Acct:[id number] Age/Sex: 81 / F Adm Date: 2 Loc: Room: [address] [place] [address] Type: ADM IN Attending Dr: Frida De [...] La Cruz MD> 06/16/22 1142 [facility] Work Phone: 1(624) 636-726301-03-2023 Discharge summary Author Frida De La Cruz [facility] June 16, 2022 8:32am Note Date/Time June 16, 2022 8: 24am [facility] [address] [place] [address] Discharge Summary Signed with Addenda Patient: Abdirahman Gomez MR#: [id number] : 1940 Acct:[id number] Age/Sex: 81 / F Adm Date: 2 Loc: Room: [address] [place] [address]: Frida De La Cruz MD [...] fib with RVR. She was seen by pin ball machine mechanic. She was recommended to be on Eliquis [...] % (Auto) 61.6, Lymph % (Auto) 27.7, [place] % (Auto) 6.9, Eos % (Auto) 2.6, Baso % (Auto) 1.2, Nucleat RBC Rel Count 0.1, Neut # (Auto) 6.6, Lymph # (Auto) 2.9, [place] # (Auto) 0.7, Eos # (Auto) 0.3, [...] oriented to place, time and person HEENT: [place] conjunctiva and NL buccal mucosa Neck: Supple, [...] Discharge Plan Discharge Plan Patient Disposition: Rehab [facility] Activity: No Activity Restriction Diet: Low-Sodium and [...] primary care provider to obtain [facility] records entirely to follow up on all of the abnormal physical, laboratory, and imaging findings that I have not addressed. Please return back to the emergency room or seek medical attention if your symptoms worsen or return. Discharging you from [facility] does not mean that your medical care [...] De La Cruz MD> 06/16/22823 [facility] Work Phone: 1([phone]) 784-840901-02-2023 Progress note Author Frida De La Cruz [facility] June 15, 2022 8:38am Note Date/Time June 15, 2022 8: 38am [facility] [address] [place] [address] Hospitalist Progress Note Signed Patient: Abdirahman Gomez MR#: [id number] : 1940 Acct:[id number] Age/Sex: 81 / F Adm Date: 2 Loc: Room: [address] [place] [address] Type: ADM IN Attending Dr: Frida De [...] oriented to place, time and person HEENT: [place] conjunctiva and NL buccal mucosa Neck: Supple, [...] Documented By: Frida De La Cruz MD 06/15/2236 Signed By: <Electronically signed by Frida De La Cruz MD> 06/15/22 0838 [facility] Work Phone: 1([phone]) 947-219901-01-2023 Progress note Author Nathaniel Castillo [facility] June 14, 2022 2:53pm Note Date/Time June 14, 2022 2: 53pm [facility] [address] [place] [address] Hospitalist Progress Note Signed Patient: Abdirahman Gomez MR#: [id number] : 1940 Acct:[id number] Age/Sex: 81 / F Adm Date: 2 Loc: Room: [address] [place] [address] Type: ADM IN Attending Dr: Nathaniel Castillo [...] signed by Nathaniel Castillo MD> 06/14/22 145 [facility] Work Phone: [phone]) 977-652212-31-2022 Progress note Author Yoav Prado [facility] June 13, 2022 2:58pm Note Date/Time June 13, 2022 2:56pm [facility] [address] [place] [address] Cardiology Progress Note Signed Patient: Abdirahman Gomez MR#: [id number] : 1940 Acct:[id number] Age/Sex: 81 / F Adm Date: 2 Loc: Room: [address] [place] [address] Type: ADM IN Attending Dr: Nathaniel Castillo [...] MD Yoav Prado> 06/13/22 1458 [facility] Work Phone: 1(671) 959-818212-31-2022 Progress note Author Nathaniel Castillo [facility] June 13, 2022 2:00pm Note Date/Time June 13, 2022 9:29am [facility] [address] [place] [address] Hospitalist Progress Note Signed Patient: Abdirahman Gomez MR#: [id number] : 1940 Acct:[id number] Age/Sex: 81 / F Adm Date: 2 Loc: 3T Room: [address] [place] [address] Type: ADM IN Attending Dr: Nathaniel Castillo [...] of care and confirmed it with the resident/student/BILL RECAPITULATION CLERK. Patient resting in bed comfortably. Denies chest [...] Full Documented By: Nathaniel Castillo MD 06/13/22 0917 Signed By: <Electronically signed by Nathaniel Castillo MD> 06/13/22 1400 <Electronically signed by DO RYAN Juarez> 06/13/22 1020 [facility] Work Phone: [phone]) 823-393212-30-2022 Progress note Author Nathainel Castillo [facility] June 12, 2022 3:02pm Note Date/Time June 12, 2022 1:38pm [facility] [address] [place] [address] Hospitalist Progress Note Signed Patient: Abdirahman Gomez MR#: [id number] : 1940 Acct:[id number] Age/Sex: 81 / F Adm Date: 2 Loc: Room: 4X0812-3 Type: ADM IN Attending Dr: Nathaniel Castillo [...] of care and confirmed it with the resident/student/BILL RECAPITULATION CLERK. Patient resting in chair comfortably. 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 strength left hand women's ministry director, full strength with flexion and extension [...] signed by DO RYAN Juarez> 06/12/22 1442 [facility] Work Phone: 1([phone]) 463-232912-30-2022 Progress note Author Paramjit [facility] June 12, 2022 11:05am Note Date/Time June 12, 2022 11:05am [facility] [address] [place] [address] Cardiology Progress Note Signed Patient: Abdirahman Gomez MR#: [id number] : 1940 Acct:[id number] Age/Sex: 81 / F Adm Date: 2 Loc: 3T Room: [address] [place] [address] Type: ADM IN Attending Dr: Nathaniel Castillo [...] signed by Paramjit Pride MD> 06/12/22 1105 [facility] Work Phone: [phone] Progress note Author Nathaniel Castillo [facility] June 11, 2022 4:24pm Note Date/Time June 11, 2022 12:40pm [facility] [address] [place] [address] Hospitalist Progress Note Signed Patient: Abdirahman Gomez MR#: [id number] : 1940 Acct:[id number] Age/Sex: 81 / F Adm Date: 2 Loc: Room: [address] [place] [address] Type: ADM IN Attending Dr: Nathaniel Castillo [...] of care and confirmed it with the resident/student/BILL RECAPITULATION CLERK. Patient resting in bed comfortably. Denies chest [...] nerves grossly intact, full strength left hand women's ministry director which is improved upon yesterday's exam, [...] DO RYAN Juarez> 06/11/22 1240 [facility] Work Phone: [phone] Progress note Author Paramjit Pride [facility] June 11, 2022 9:45am Note Date/Time June 11, 2022 9:46am [facility] [address] [place] [address] Cardiology Progress Note Signed Patient: Abdirahman Gomez MR#: [id number] : 1940 Acct:[id number] Age/Sex: 81 / F Adm Date: 2 Loc: Room: [address] [place] [address] Type: ADM IN Attending Dr: Nathaniel Castillo [...] % (Auto) 65.1 Lymph % (Auto) 24.1 [place] % (Auto) 9.1 Eos % (Auto) 1.2 Baso % (Auto) 0.5 Nucleat RBC Rel Count 0.1 Neut # (Auto) 7.4 Lymph # (Auto) 2.8 [place] # (Auto) 1.0 H Eos # (Auto) [...] Paramjit Pride MD> 06/11/22 0945 [facility] Work Phone: 1([phone]) 138-918712-28-2022 Progress note Author Paramjit Pride [facility] June 10, 2022 6:21pm Note Date/Time June 10, 2022 12:12pm [facility] [address] [place] [address] Cardiology Progress Note Signed with Addenda Patient: Abdirahman Gomez MR#: [id number] : 1940 Acct:[id number] Age/Sex: 81 / F Adm Date: 2 Loc: Room: [address] [place] [address] Type: ADM IN Attending Dr: Nathaniel Castillo [...] EKG. The patient's troponin peaked initially in [place] emergency department at 9000and is now come [...] H* Echocardiogram Signed Patient: Abdirahman Gomez MR#: [id number] : 1940 Acct:[id number] Age/Sex: 81 / F ADM Date: 06/09/22 Loc: Room:? [id number] Type:?ADM IN Attending Dr: Nathaniel Castillo MD [...] 06/10/22 1159 Signed By: <Electronically signed by Parmajit Pride MD> 06/10/22 1220 [facility] Work Phone: [phone]) 324-485712-28-2022 Progress note Author Nathaniel Castillo [facility] June 10, 2022 1:35pm Note Date/Time June 10, 2022 1:31pm [facility] [address] [place], [place] [id number] Progress Note Signed Patient: Abdirahman Gomez MR#: [id number] : 1940 Acct:[id number] Age/Sex: 81 / F Adm Date: 2 Loc: Room: [address] [place] [address] Type: ADM IN Attending Dr: Ntahaniel Castillo MD Copies to: ~ Date of [...] abnormalities, but upon review from a different pin ball machine mechanic, it was noted that she has akinesis and thinning of the basal inferior wall of LV suggestive of a prior [place]. #2 atrial fibrillation. Patient had a small [...] <Electronically signed by Nathaniel Castillo MD> 06/10/22 4621 [facility] Work Phone: [phone]) 820-167812-27-2022 History and physical note Author Chema Milner [facility] June 09, 2022 8:18pm Note Date/Time June 09, 2022 4:14am [facility] [address] [place] [address] Hospitalist H&P Signed Patient: Abdirahman Gomez MR#: [id number] : 1940 Acct:[id number] Age/Sex: 81 / F Adm Date: 2 Loc: Room: [address] [place] [address] Type: ADM IN Attending Dr: Nathaniel Castillo MD Copies to: MD Chema Pham MD Douglas M Hoy, MD Samantha Mason, , RES~ HPI DATE OF EXAMINATION: 06/09/22 CHIEF COMPLAINT: Weakness HISTORY OF PRESENT ILLNESS: Patient is an 81-year-old female that is a transfer from [place] due to elevated troponins. Past medical history includes hypertension, hx CABG, presence of pacemaker, and paroxysmal atrial fibrillation. Patient had originally presented to the emergency room at [place] due to generalized weakness that started several [...] negative unless noted below or [facility] Vaccinated for COVID-19?: Yes Medical History [...] with Dr. Morton while patient was at [place]. It is not felt that patient is [...] plan of care and confirmed the nurse practitioners/residents/merchandising internship written note. Patient is a 81-year-old lady history of CAD status post CABG, hypertension, A. fib, presence of pacemaker presented to [place] due to weakness and bloody stools. Patient has history of diverticulosis. Hemoglobin 13.5. Incidentally troponins were significantly elevated but patient did not have any cardiac complaints. EKG with no acute ischemic changes. EKG reviewed by pin ball machine mechanic, not felt to be an acute ischemic event and recommended transfer to [facility] for further evaluation and management. Patient upon [...] <Electronically signed by Chema Milner MD> 06/09/222017 [facility] Work Phone: 1(171) 696-435812-27-2022 Consult note Author Paramjit Pride [facility] June 09, 2022 3:21pm Note Date/Time June 09, 2022 3:16pm [facility] [address] [place] [address] Cardiology Consult Note Signed Patient: Abdirahman Gomez MR#: [id number] : 1940 Acct:[id number] Age/Sex: 81 / F Adm Date: 2 Loc: Room: [address] [place] [address] Type: ADM IN Attending Dr: Nathaniel Castillo MD Copies to: Nathaniel AnnaMD Irish lopez MD Stephen M Tann, MD~ Cardiology HPI History of Present Illness Consult Date: 06/09/22 Reason for Consult: Abnormal ECG Elevated serum troponin Known history of coronary heart disease status post remote CABG HPI: Ms. Gomez is a 81 year old female with history of CAB x3 done approximately 30years ago in [place] who was transferred to our facility from [facility] 2days ago after presenting complaining of generalized weakness but more pronounced weakness of the left arm and hand. The patient states she been feeling more weak and fatigued than normal over the preceding 10 days or so prior to her presentation. On the day that she presented to [place] ER she noted that she felt very weak while in her shower. She felt like her left hand was numb and would not work. She apparently had aminor fall but suffered no injury with such. However EMS was activated. The patient was taken to [place] emergency department for evaluation. In the ER at [place] ER EKG was suspicious for ST segment [...] was anticoagulated and she was sent to [facility] for furtherevaluation. Since being here [facility] patient has had a mild increase in [...] x10E3/uL Lymph # (Auto) 2.3 (1.00-4.8) x10E3/uL Hutchinson # (Auto) 1.3 H (0.0-0.8) x10E3/uL Eos [...] AV and intraventricular conduction: 1 AV block W[place], pacemaker, normal Myocardial infarction: inferior WV (old age indeterminate) Normal tracing: no change [...] discharge she can follow-up with her primary pin ball machine mechanic in [facility]. Documented By: Paramjit Pride MD 06/09/22 0441 Signed By: <Electronically signed by Paramjit Pride MD> 06/09/22 1521 [facility] Work Phone: 1(526) 215-724212-27-2022 Progress note Author Nathaniel Castillo [facility] June 09, 2022 3:06pm Note Date/Time June 09, 2022 1:59pm [facility] [address] [place] [address] Hospitalist Progress Note Signed Patient: Abdirahman Gomez MR#: [id number] : 1940 Acct:[id number] Age/Sex: 81 / F Adm Date: 2 Loc: Room: [address] [place] [address] Type: ADM IN Attending Dr: Nathaniel Castillo [...] of care and confirmed it with the resident/student/BILL RECAPITULATION CLERK. Patient resting in bed comfortably. Denies chest [...] out of 5 strength on left hand women's ministry director, full strength with flexion and extension [...] 10 Mg Tablet PO 06/09/23 21:59 HS [facility] Atorvastatin Calcium 40 mg 06/09/22 22:00 Atorvastatin 40 Mg Tablet PO 06/09/23 21:59 HS [facility] Carvedilol 12.5 mg 06/09/22 08:00 06/09/22 09:29 [...] and examination Only has decreased strength in women's ministry director on the left upon my exam Denies any sensory deficits Patient states this started yesterday No history of stroke Chronic conditions: A. fib, hyperlipidemia, hypertension, pacemaker status post CABG Diet: Regular DVT prophylaxis: SCDs CODE STATUS: Full Documented By: Marta Juarez DO, RYAN 06/09/22 1 354 Signed By: <Electronically signed by DO RYAN Juarez> 06/09/22 1403 <Electronically signed by Nathaniel Castillo MD> 06/09/22 7958 [facility] Work Phone: 1([phone]) 721-282706-15-2022 NoteMR#: [id number] I [facility] Pt. Name: Abdirahman Gomez Admitted: 11/22/2021 [...] is an 81-year-old female who presented to [facility] with chief complaint of symptomatic [...] Mcfadden PA-C Date Trans: 11/26/2021 06:47 A/daniel DN_JN:[id number] cc: Irish Faustin M.D. [address], [facility] [address]* Diagnosis Onset Date Resolution Status A-fib acute Abnormal ECG acute Constipation acute Diverticulosis acute Elevated troponin acute Embolic stroke acute Hypertension acute Pacemaker acute Paroxysmal atrial fibrillation acute Upper extremity weakness acu [facility] Work Phone: Evaluation note* Diagnosis Onset [...] acute Pacemaker acute Paroxysmal atrial fibrillation acute [facility] Work Phone: Hospital Discharge instructions Additional Instructions [...] primary care provider to obtain [facility] records entirely to follow up on all of the abnormal physical, laboratory, and imaging findings that I have not addressed. Please return back to the emergency room or seek medical attention if your symptoms worsen or return. Discharging you from [facility] does not mean that your medical care ends here and now. You may still need additional monitoring, work up, investigation, and treatment plan to be handled from this point on by out patient providers including your primary care provider and specialists. For any medication question, please contact your retail pharmacist or your primary care provider. Thank you.[facility] Work Phone: Summary Purpose Family [...] and content) DATE CREATED AUTHOR 12/03/2021 [facility] DATE CREATED AUTHOR AUTHOR'S ORGANIZ ATION 06/16/2022 [facility] DATE CREATED AUTHOR AUTHOR'S ORGANIZ ATION 07/18/2022 [facility] DATE CREATED AUTHOR AUTHOR'S ORGANIZ ATION 08/03/2022 [facility] DATE CREATED AUTHOR AUTHOR'S ORGANIZ ATION 11/16/2024 [facility] Care Teams (unrecognized sec tion and [...] Zaman MD Admit Provider, Attending Provider A jonathan Santillan , PARISA Other Provider Active Leta Calle , PARISA Other Provider Active Faina Shah , PARISA Other Provider Active Kell Nettles , PARISA Other Provider Active Leilani Nick RN Other Provider Active Amina Aguiar , PARISA Other Provider Active Frida De La Cruz MD Other Provider Active Josue Espitia MD Other Provider Active Ramila Wallace APRN Other Provider Active Ronobir Dior , DO Other Provider Active Quinton Montana [...] MD Other Provider Active Devora Restrepo , BILL RECAPITULATION CLERK-C Other Provider Active Ga Kwong MD Other Provider Active Maurilio Banks MD Other Provider Active Chema Milner MD Other Provider Active Herminia Andrew , DO Other Provider Active Johnny Benson , DO Other Provider Active Rober ePrez , DO Other Provider Active Brandi Cifuentes APRN Other Provider Active Devante Lafleur , DO [...] BE BASED ON THE PRIMARY CLINICAL RECORDS. [facility] [employer] provides no warranty or guarantee of the accuracy or completeness of information in this document.
[2025-01-23 16:09] LABS: Anion Gap 11.4; Blood Urea Nitrogen 10.0 mg/dL (7.0-18.0); Calcium 9.3 mg/dL (8.5-10.1); Carbon Dioxide 24.4 mmol/L (21.0-32.0); Chloride 100 mmol/L (98-107); Estimated GFR (African America >60 (>=60 mL/min/1.73m^2); Estimated GFR (Non-African Ame >60 (>=60 mL/min/1.73m^2); Glucose 112 mg/dL (74-106); Potassium 3.8 mmol/L (3.5-5.1); Sodium 132 mmol/L (136-145)
== END 2025-01-23 17:50 | disposition home or self-care (01) ==
PROVIDERS: Emergency Provider Emergency Medicine; PCP Family Medicine
DX: J06.9 Acute upper respiratory infection, unspecified (principal); R05.9 Cough, unspecified; R53.1 Weakness
CPT/HCPCS: 36415; 71045; 80048; 85025; 93005; 99285

== ENCOUNTER 2025-05-18 12:47 | Outpatient (OUT) | payer MEDICARE, OTHER, SELFPAY ==
--- OUTSIDE RECORDS SUMMARY | 2025-05-08 09:10 | XMS_ITS | Encounter Summary ---
Author Organization [facility] Address [address] [address] Care Team Providers Care Insole Beveler Name Role Phone Ganesh Samuel MD Primary Care Provider [phone] Encounter Details DateTypeDepartmentCare Team (Latest Contact Info)Ecvmhqnftmj88/25/2025 9:10 AM ESTAncillary Procedure [facility] [address] [place] [address] Adjustment and management of cardiac pacemaker Social History Tobacco UseTypesPacks/DayYears UsedDateSmoking Tobacco: NeverSmokeless Tobacco: NeverAlcohol UseStandard Drinks/WeekCommentsNot Currently0 (1 standard drink = 0.6 oz pure alcohol)UT Safety & EnvironmentAnswerDate RecordedFear of Current or Ex-PartnerNot on file08/05/2023Emotionally AbusedNot on file08/05/2023hysically AbusedNot on file08/05/2023Sexually AbusedNot on file08/05/2023hysically or Sexually AbusedNot on file08/05/2023CommentsUnknownSex and Gender InformationValueDate RecordedSex Assigned at GlunyXfrkdr42/01/2025 2:00 PM EDT Legal ZzrGlupmm78/29/2022 11:57 PM EDTGender OzxeadewEmhtyc57/01/2025 2:00 PM EDTSexual OrientationHeterosexual or Dkgolref07/01/2025 2:00 PM EDTdocumented as of this encounter Plan of Treatment Not on file documented as of this encounter Procedures Procedure NamePriorityDate/TimeAssociated DiagnosisCommentsCARDIAC DEVICE CHECK CHECK - FGDFLFGjjxlez49/ 10:10 AM EST Adjustment and management of cardiac pacemaker documented in this encounter Results * CARDIAC DEVICE CHECK - REMOTE - PACEMAKER (05/07/2025 10:10 AM EST)Specimen (Source)Anatomical Location / LateralityCollection Method / VolumeCollection TimeReceived Time Narrative Authorizing ProviderResult TypeResult StatusPaul Rigo MDCV IMPLANTABLE CARDIAC DEVICE PROCEDURESFinal ResultPerforming OrganizationAddressCity/State/ZIP Code Phone Number CPACS documented in this encounter Visit Diagnoses Diagnosis Adjustment and management of cardiac pacemaker Fitting and adjustment of cardiac pacemaker documented in this encounter Care Teams Team MemberRelationshipSpecialtyStart DateEnd Ganesh Samuel MD [address] [facility] [place] [address] PCP - General07/08/22documented as of this encounter
--- OUTSIDE RECORDS SUMMARY | 2025-05-18 12:49 | XMS_ITS | Clinical Summary ---
Author Organization [employer] Address [id number] [address] [place] [address] Care Team Providers Care Cinder Snapper Name Role Phone Ganesh Samuel MD Primary Care Provider [phone] Allergies No known active allergies Medications MedicationSigDispense QuantityRefillsLast FilledStart DateEnd DateStatus metoprolol tartrate (LOPRESSOR) 50 mg tablet Take 50 mg by mouth 2 (two) times a day.Active omega-3 fatty acids (FISH OIL CONCENTRATE) 1,000 mg capsule Take 4 capsules by mouth daily.Active HYDROcodone-acetaminophen (NORCO) 5-325 mg per tablet Take 1 tablet by mouth 2 (two) times a day as needed for pain.Active simvastatin (ZOCOR) 20 mg tablet Take 20 mg by mouth nightly.Active nitroglycerin (NITROSTAT) 0.[address] 0.4 mg under the tongue every 5 (five) minutes as needed for chest pain. Active omeprazole (PriLOSEC) 40 mg capsule Take 40 mg by mouth 2 (two) times daily at 0800 and 1500.Active isosorbide mononitrate (IMDUR) 60 mg 24 hr tablet Take 60 mg by mouth daily.Active diclofenac (VOLTAREN) 75 mg EC tablet Take 75 mg by mouth 2 (two) times a day.Active aspirin 325 mg tablet Take 81 mg by mouth in the morning.Active cholecalciferol, vitamin D3, 2,000 units capsule Take 4,000 Units by mouth daily.Active diphenhydrAMINE-acetaminophen (TYLENOL PM) 25-500 mg tablet Take 2 tablets by mouth respiratory nightly.Active alendronate (FOSAMAX) 70 mg tablet 70 mg every 7 days. taking on 03/05/2017Active lisinopril-hydroCHLOROthiazide (PRINZIDE,ZESTORETIC) 10-12.5 mg per tablet Take 2 tablets by mouth daily.03/09/2017Active tiZANidine (ZANAFLEX) 4 mg tablet Take 4 mg by mouth every 6 (six) hours as needed for muscle spasms.Active montelukast (SINGULAIR) 10 mg tablet Take 10 mg by mouth nightly.Active amLODIPine (NORVASC) 10 mg tablet Take 10 mg by mouth in the morning.Active rosuvastatin (CRESTOR) 5 mg tablet Take 5 mg by mouth in the morning.Active pramipexole (MIRAPEX) 0.5 mg tablet Take 0.5 mg by mouth respiratory nightly.Active carvediloL (COREG) 12.5 mg tablet Take 12.5 mg by mouth in the morning and 12.5 mg in the evening. Take with meals.Active potassium chloride (KLOR-CON) 20 mEq packet Take 20 mEq by mouth in the morning and 20 mEq before bedtime.Active furosemide (LASIX) 40 mg tablet Take 40 mg by mouth daily.Active LORazepam (ATIVAN) 1 mg tablet Take 1 mg by mouth every 6 (six) hours as needed for anxiety.Active ascorbic acid (VITAMIN C) 500 mg tablet Take 500 mg by mouth in the morning.Active Social History Tobacco UseTypesPacks/DayYears UsedDateSmoking Tobacco: Never AssessedChildcare AnswerDate FxqzojrzKmgelhylvTbbxacu27/12/2019EmploymentAnswerDate Recorded TkskysevrrZcdnoey28/12/2019Purpose - LifeAnswerDate RecordedPurpose and direction in jgcjNfdkjwu51/11/2021CommentsUnknownSex and Gender InformationValueDate RecordedSex Assigned at BirthNot on fileLegal SexFemale 01/17/2015 11:36 AM EDTGender IdentityNot on fileSexual OrientationNot on file Last Filed Vital Signs Vital SignReadingTime TakenCommentsBlood Ojarjlfm242/95011/22/2021 3:26 PM EDT Egphf6584/11/2022 3:26 PM MZLHmllzjjfjfb81.1 ??C (98.8 ??F)11/22/2021 2:02 PM EDTRespiratory Dcpu177811/22/2021 3:26 PM EDTOxygen Qilvapflrr36%11/22/2021 3:26 PM EDTInhaled Oxygen Concentration--Weight--Height--Body Mass Index-- Plan of Treatment Health MaintenanceDue DateLast DoneCommentsDepression Ddphiqyjl63/14/1953Tobacco Sxxvhhhli47/14/1953DTaP,Tdap and Td Vaccines (1 - Tdap)1959Zoster (Shingles) Vaccine (1 of 2)1990Fall Risk Vihowupbm47/14/2006RSV ( or age 60+ yrs) (1 - 1-dose 75+ series)2015COVID-19 Vaccine ( - 2024- season), 08/20/2020, 07/23/2020Influenza Pfjaqau3802/12/2025 03/19/2021, 03/22/2020, 03/23/2017, Additional history exists Medical Devices Not on file Insurance * Guarantor: Kathia Haas TypeRelation to PatientDate of BirthPhone Billing AddressPersonal/YubowdJgxv40/14/1941 [address] [place] [address] Care Teams Team MemberRelationshipSpecialtyStart DateEnd Ganesh Samuel MD [facility]03/08/17
--- OUTSIDE RECORDS SUMMARY | 2025-05-18 12:49 | XMS_ITS | Encounter Summary ---
Author Organization [facility] Address [address] [place] [address] Care Team Providers Care Job Foreman Name Role Phone Ganesh Samuel MD Primary Care Provider [phone] Encounter Details DateTypeDepartmentCare Team (Latest Contact Info)Jhizydosyjb40/20/2025Orders Only [facility] [address] [place] [address] Sarabjit Sierra MD [address] [place] [address] Social History Tobacco UseTypesPacks/DayYears UsedDateSmoking Tobacco: NeverSmokeless Tobacco: NeverAlcohol UseStandard Drinks/WeekCommentsNot Currently0 (1 standard drink = 0.6 oz pure alcohol)ND Safety & EnvironmentAnswerDate RecordedFear of Current or Ex-PartnerNot on file08/05/2023Emotionally AbusedNot on file08/05/2023hysically AbusedNot on file08/05/2023Sexually AbusedNot on file08/05/2023hysically or Sexually AbusedNot on file08/05/2023CommentsUnknownSex and Gender InformationValueDate RecordedSex Assigned at ZdmyvRlkmlq34/01/2025 2:00 PM EDT Legal OnmMnpitq28/29/2022 11:57 PM EDTGender XpyrwrpaViwffd66/01/2025 2:00 PM EDTSexual OrientationHeterosexual or Rfrwdnqu23/01/2025 2:00 PM EDTdocumented as of this encounter Plan of Treatment Not on file documented as of this encounter Procedures Procedure NamePriorityDate/TimeAssociated DiagnosisCommentsCARDIAC DEVICE CHECK - REMOTE - MJTJUGERQRzdwmie34/20/2025 12:00 AM ESTdocumented in this encounter Results * Cardiac device check - Remote pacemaker (05/03/2025 12:00 AM EST)Anatomical RegionLateralityModalityOtherSpecimen (Source)Anatomical Location / Laterality Collection Method / VolumeCollection TimeReceived Time05/03/2025 Narrative Authorizing ProviderResult TypeResult StatusPapiotr Sierra MDCV IMPLANTABLE CARDIAC DEVICE PROCEDURESFinal Result documented in this encounter Visit Diagnoses Not on filedocumented in this encounter Care Teams Team MemberRelationshipSpecialtyStart DateEnd Date Ganesh Samuel MD [address] [place] [address] PCP - General07/08/22documented as of this encounter
--- OUTSIDE RECORDS SUMMARY | 2025-05-18 12:49 | XMS_ITS | Clinical Summary ---
Author Organization [facility] Address [address] [place], [place] [address] Care Team Providers Care Construction Checker Name Role Phone Ganesh Samuel MD Primary Care Provider [phone] Allergies Active AllergyReactionsCriticalityNoted DateCommentsAdhesive Tape (Rosins)Rash 09/28/2014RosuvastatinOther: See Lybiimnq31/26/2015 Myalgia Medications MedicationSigDispense QuantityRefillsLast FilledStart DateEnd DateStatus HYDROcodone-acetaminophen (NORCO) 5-325 mg per tablet Take 1 tablet by mouth as needed.Active [place]-3 Fatty Acids-Vitamin E (FISH OIL) 1,000 mg cap Take 4 capsules by mouth once daily.Active NITROGLYCERIN (NITRO-TIME ORAL) Take 0.4 mg by mouth as needed.Active isosorbide mononitrate ER (IMDUR) 60 mg 24 hr tablet Take 60 mg by mouth once daily.Active ACETAMINOPHEN/DIPHENHYDRAMINE (TYLENOL PM ORAL) Take by mouth daily at bedtime.Active aspirin, enteric coated (ECOTRIN LOW STRENGTH) 81 mg EC tablet Take 1 tablet by mouth once daily.ctive lisinopril-hydrochlorothiazide (PRINZIDE, ZESTORETIC) 20-25 mg per tablet Take 1 tablet by mouth once daily. 90 tablet ctive amLODIPine (NORVASC) 10 mg tablet Take 1 tablet by mouth once daily. 90 tablet ctive atorvastatin (LIPITOR) 20 mg tablet Take 1 tablet by mouth once daily. 90 tablet ctive cephALEXin (KEFLEX) 500 mg capsule 06/18/2018Active hydrOXYzine pamoate (VISTARIL) 25 mg capsule 06/10/2018Active mupirocin (BACTROBAN) 2 % ointment 09/13/2018Active Omeprazole 40 mg capsule 06/10/2018Active temazepam (RESTORIL) 15 mg cap 07/20/2018Active metoprolol succinate ER (TOPROL XL) 25 mg 24 hr tablet Take 25 mg by mouth once daily.Active docusate sodium (COLACE) 100 mg capsule Take 100 mg by mouth twice daily.Active pregabalin (LYRICA) 50 mg capsule Take 50 mg by mouth three times daily.Active ondansetron (ZOFRAN) 4 mg tablet Take 4 mg by mouth every 8 hours as needed.Active Active Problems ProblemNoted DateDiagnosed DateS/P CABG x 3 in 30391912/31/2014Paroxysmal atrial gfocjlxeueow12/20/7686Yowtxnvwyfuvdz98/20/6711Iosbujlulgwl79/20/2015Other and unspecified yewveinbkjsxja96/20/2015CAD (coronary artery disease)11/02/2014 Sjtehdwkddb14/22/2015 Family History Medical HistoryRelationCommentsHeartMotherRelationStatusCommentsFatherDeceased MotherDeceased Social History Tobacco UseTypesPacks/DayYears UsedDateSmoking Tobacco: NeverSmokeless Tobacco: NeverAlcohol UseStandard Drinks/WeekCommentsYes0 (1 standard drink = 0.6 oz pure alcohol)wine 1-2 x monthlyArea Deprivation IndexAnswerDate RecordedNational Score (1-100), lower number is lower riskNot on file05/20/2020State Score (1- 10), lower number is lower riskNot on file05/20/2020Data from: https://www.neighborhoodatlas.medicine.[facility].edu/. Last address used for calculationNot on file05/20/2020CommentsNoSex and Gender Information ValueDate RecordedSex Assigned at BirthNot on fileLegal PyeInastw08/02/2012 8:45 AM ESTGender IdentityNot on fileSexual OrientationNot on fileOccupationIndustry Job Start DateJob End DateRetiredNot on fileNot on fileNot on file Last Filed Vital Signs Vital SignReadingTime TakenCommentsBlood Jzqadtbc39/4504 11:29 AM EDT Ftoqo9375 11:29 AM LASZigitrdmozl27.7 ??C (98 ??F)04/08/2015 9:54 AM EDT Respiratory Ezmw857109/22/2018 11:29 AM EDTOxygen Ifbvyeauao47%09/22/2018 11:29 AM EDTInhaled Oxygen Concentration--Iuuxvk30.2 kg (157 lb)04/08/2015 9:54 AM EDT Oniwuo414.5 cm (5' 2 )04/08/2015 9:54 AM EDTBody Mass Index28.7204/08/2015 9:54 AM EDT Plan of Treatment Health MaintenanceDue DateLast DoneCommentsAnxiety Glnufhwhx00/14/1959Depression Vuazzmxtx62/14/1959DTaP,Tdap,Td Vaccine (1 - Tdap)1959Pneumococcal Vaccine: 50+ (1 of 1 - PCV)1990Shingrix Vaccine (1 of 2)1990Bone Density Ymzaeuswo12/14/2006RSV Vaccine (1 - 1-dose 75+ series)2015Diabetes Zpvkvtwpn02, 09/16/2018, 09/06/2018, Additional history exists Advance Directive Gapnhintpv93/01/2025Covid-19 Vaccine (1 - 2024- season) 2025Influenza Vaccine (#1)2025olorectal Cancer Screening DiscontinuedFecal Occult JmwlaSepmcwsbuegz26/04/2019, 09/15/2018CT Colonography DiscontinuedCologuard (FIT-DNA)DiscontinuedColonoscopyDiscontinuedSigmoidoscopy Discontinued Procedures Procedure NamePriorityDate/TimeAssociated DiagnosisCommentsBASIC METABOLIC PANEL Kderubr9009/22/2018 12:04 PM EDT MRSA infection Renal insufficiency Anemia due to other cause, not classified Thrombocytopenia (HCC) Hypothyroidism, unspecified type from Last 3 Months or Most Recently Relevant to Health Maintenance Results * (ABNORMAL) BASIC METABOLIC PNL (09/22/2018 12:04 PM EDT)ComponentValueRef RangeTest MethodAnalysis TimePerformed AtPathologist LnhdsmjlxAwmnosx328(H)74 - 99 mg/dL09/23/2018 11:07 AM EDTCleveland Clinic LaboratoriesComment: The [place] Diabetes Association (ADA) provides guidance for cutoff [...] Standards of Medical Care in Diabetes 2016, [place] Diabetes Association. Diabetes Care. 2016.39(Suppl 1). BUN73(H)7 - 21 mg/dL09/23/2018 11:07 AM [facility] Creatinine4.50(H)0.58 - 0.96 mg/dL09/23/2018 11:07 AM [facility] DhoziwtbtgeqTzavhh679(L)136 - 144 mmol/L09/23/2018 11:07 AM [facility] LaboratoriesPotassium5.4(H)3.7 - 5.1 mmol/L09/23/2018 11:07 AM [facility] NmkcgbnrjaofOdadhatj7121 - 105 mmol/L09/23/2018 11:07 AM [facility] QysksrxyixqvVM40(L)22 - 30 mmol/L09/23/2018 11:07 AM [facility] LaboratoriesAnion Gap23(H)9 - 18 mmol/L09/23/2018 11:07 AM [facility] LaboratoriesCalcium8.68.5 - 10.2 mg/dL09/23/2018 11:07 AM [facility] LaboratorieseGFR- Pxfcgkek4057/12/2019 11:07 AM [facility] LaboratorieseGFR-All Other Races9.09/23/2018 11:07 AM [facility] LaboratoriesComment: eGFR (Estimated GFR) Units of measure: mL/min/1.73 [...] eGFR may not accurately reflect actual GFR. Specimen (Source)Anatomical Location / LateralityCollection Method / Volume Collection TimeReceived TimeBlood specimen (specimen)09/22/2018 12:04 PM EDT 09/22/2018 12:07 PM EDT Narrative Authorizing ProviderResult TypeResult StatusJames E FanningLABORATORYFinal ResultPerforming OrganizationAddressCity/State/ZIP CodePhone Number [facility] [address] [place] [address] [facility] [address] [place] [address] from Last 3 Months or Most Recently Relevant to Health Maintenance Insurance * Guarantor: Kathia Haas TypeRelation to PatientDate of BirthPhone Billing AddressPersonal/DfabpaIujm57/14/1941 [address] [place] [address] * Guarantor: Kathia Haas TypeRelation to PatientDate of BirthPhone Billing AddressSelf IbvNcjw98 1940 [address] [place] [address] Care Teams Team MemberRelationshipSpecialtyStart DateEnd Ganesh Samuel MD PCP - GeneralFamily Medicine02/02/14
--- OUTSIDE RECORDS SUMMARY | 2025-05-18 12:50 | XMS_ITS | Clinical Summary ---
Author Organization [facility] Address [address] [facility] [place] [address] Care Team Providers Care Supervisor Blast Furnace Name Role Phone Ganesh Samuel MD Primary Care Provider [phone] Social History Tobacco UseTypesPacks/DayYears UsedDateSmoking Tobacco: Never Assessed CommentsUnknownSex and Gender InformationValueDate RecordedSex Assigned at Not on fileLegal WiaCwgnac77/15/2023 7:08 PM EDTGender IdentityNot on fileSexual OrientationNot on file Last Filed Vital Signs Vital SignReadingTime TakenCommentsBlood Riljstrd412/7609 12:00 PM EDT Pulse--Temperature--Respiratory Rate--Oxygen Saturation--Inhaled Oxygen Concentration--Ccndab93 kg (119 lb)03/13/2019 12:00 PM TFJCdwznu068.5 cm (5' 2 ) 03/13/2019 12:00 PM EDTBody Mass Index21.7709 12:00 PM EDT Plan of Treatment Not on file Insurance * Guarantor: America Haas TypeRelation to PatientDate of BirthPhone Billing AddressPersonal/QhgbklZzxl40/14/1941 [address] [place] [address] Care Teams Team MemberRelationshipSpecialtyStart Date Ganesh Samuel MD PCP - GeneralFamily Medicine02/11/23
--- OUTSIDE RECORDS SUMMARY | 2025-05-18 12:50 | XMS_ITS | Clinical Summary ---
Author Organization [facility] Address [address] [place] [address] Phone Care Team Providers Care Support Specialist Name Role Phone Ganesh Samuel MD Primary Care Provider [phone] Social History Tobacco UseTypesPacks/DayYears UsedDateSmoking Tobacco: Never Assessed CommentsUnknownSex and Gender InformationValueDate RecordedSex Assigned at Not on fileLegal BjmNinvvm38/29/2022 6:04 PM ESTGender IdentityNot on fileSexual OrientationNot on file Plan of Treatment Health MaintenanceDue DateLast DoneCommentsLipid Panel1940Yearly Adult Wfgpjghd38/14/1941DTaP/Tdap/Td Vaccines (1 - Tdap)1962Pneumococcal Vaccine (1 of 1 - PCV)1990Zoster Vaccines (1 of 2)1990Bone Density Scan 2005RSV High Risk: (Elderly (60+) or Population) (1 - 1-dose 75+ series)2015Influenza Vaccine (#1)5COVID-19 Vaccine ( - season)2025HIB VaccinesAged OutNo longer eligible based on patient's age to complete this topicHPV VaccinesAged OutNo longer eligible based on patient's age to complete this topicHepatitis A VaccinesAged OutNo longer eligible based on patient's age to complete this topicHepatitis B VaccinesAged OutNo longer eligible based on patient's age to complete this topicIPV VaccinesAged OutNo longer eligible based on patient's age to complete this topicMeningococcal VaccineAged OutNo longer eligible based on patient's age to complete this topic Rotavirus VaccinesAged OutNo longer eligible based on patient's age to complete this topic Care Teams Team MemberRelationshipSpecialtyStart DateEnd Date Ganesh Samuel MD [address] [place] [address] PCP - Dslnjly38/29/22
--- OUTSIDE RECORDS SUMMARY | 2025-05-18 12:50 | XMS_ITS | Clinical Summary ---
Author Organization [facility] Address [address] [place] [address] Care Team Providers Care Wreath Inspector Name Role Phone Ganesh Samuel MD Primary Care Provider [phone] Allergies Active AllergyReactionsCriticalityNoted DateCommentsAdhesive Tape-SiliconesRash Low09/28/20140579MocxyrtcavlvqIuohktvrxprxbl95/04/4425Sgrvcwrzgwjph99/25/2023odeine 07/08/20223128ImiazrdNagdqfatmikvsp89/12/0948QbbqflhghmwmOqqpd91/26/2015 Myalgia Medications MedicationSigDispense QuantityRefillsLast FilledStart DateEnd DateStatus potassium chloride CR (Klor-Con M20) 20 mEq ER tablet Take 20 mEq by mouth in the morning.06/24/2022ctive apixaban (Eliquis) 5 mg tablet Take 2.5 mg by mouth in the morning and at bedtime.Active omeprazole (PriLOSEC) [address] capsule Take 40 mg by mouth before breakfast.07/02/2022ctive isosorbide mononitrate ER (Imdur) 60 mg 24 hr tablet Take 30 mg by mouth in the morning.Active furosemide (Lasix) 20 mg tablet Take 20 mg by mouth in the morning.07/02/2022ctive montelukast (Singulair) 10 mg tablet montelukast 10 mg tabletActive rosuvastatin (Crestor) 5 mg tablet Take 5 mg by mouth once daily as directed.Active pramipexole (Mirapex) 0.5 mg tablet pramipexole 0.5 mg tabletActive valsartan (Diovan) 40 mg tablet Take 40 mg by mouth in the morning.06/24/2022ctive amitriptyline (Elavil) 25 mg tablet Take 25 mg by mouth at bedtime.12/08/2022ctive tiZANidine (Zanaflex) 4 mg tablet Take 4 mg by mouth in the morning and at bedtime.12/02/2022ctive LORazepam (Ativan) 1 mg tablet Take 1 mg by mouth in the morning and at bedtime.Active HYDROcodone-acetaminophen ([place]) 5-325 mg tablet Take 5-325 tablets by mouth in the morning and at bedtime.Active aspirin 81 mg EC tablet Take 1 tablet by mouth in the morning.12/31/2014ctive omega 6-dmr-jue-fish oil (Fish OiL) 1,000 mg (120 mg-180 mg) capsule Take 100 mg by mouth in the morning.Active calcium carbonate-vitamin D3 500 mg-5 mcg (200 unit) tablet Take 1 tablet by mouth in the morning.Active amLODIPine (Norvasc) 10 mg tablet Indications:Essential hypertensionTAKE 1 TABLET BY MOUTH EVERY MORNING 90 tablet 5Active carvedilol (Coreg) 12.5 mg tablet Indications:Essential hypertensionTAKE 1 TABLET BY MOUTH EVERY MORNING AND TAKE 1 TABLET ONCE AT BEDTIME 180 tablet 5Active Additional Information Patient taking differently: 12.5 mg oral 2 times daily with meals, Reported on 04/25/2025 cholecalciferol (D3-5) 5,000 Units tablet Take 5,000 Units by mouth in the morning.Active Active Problems ProblemNoted DateDiagnosed DateAbnormal pqpotiw2504/23/20255179Yiexaj17/10/2025 Cervical disc eeieylw6904/23/2025ongestive heart etqoqzk8004/23/2025Degeneration of lumbar intervertebral disc04/23/2025Essential ohopqfktwbuq23/10/2025Generalized anxiety krorbwbd45/10/3714Udzlkhjgujf23/10/2025History of stroke without residual nzobtsen60/10/1566Adzwuemjcdpogbp21/10/2025Left inguinal hernia 04/23/20256924Qcywvjiijnlv43/10/1917Hlymurecppmi86/10/6858Xbcwpsrtq21/10/2025Right foot vsbfvv4704/23/20254712Snwwjce72/10/2025Tricuspid valve kytbvdyu05/10/2025bnormal ECG04/17/20248434Xukteos47/04/2024arotid lvkofriq33/04/8598Txgqffdcenoq21/04/2024 Njkeydizraekrq95/04/2024Elevated jetiuraw04/04/2024Embolic bfphcv0604/17/2024 Impaired mobility and activities of daily ysuqpz1504/17/20244690Ccrhgwbvt66/04/2024 Upper extremity wabjkuqt48/04/2024bdominal aortic ioshxljs65 Abdominal painhest painHip pain epressive vwbsnuiv57iverticulitis of colonyspneaEpilepsy Trpzhfalnrnpakyelxbp32/17/202307/17/7407Pzeqjpmt59Low back pain3Pain in wristShoulder pain12/28/2022 12/28/20228613Owsfcqubazec09Tinea Tricuspid valve olpipmzrtfkjw29Thyroid unrwop0112/28/2022 12/28/2022losed fracture of neck of femurlosed bimalleolar bajdhscs11Heart uyikghq16aroxysmal atrial axspdvlajcrj93S/P CABG x Hypothyroidism radycardiaAD (coronary artery disease) Encounters DateTypeDepartmentCare JsrkWkqulnysbuw76/25/2025 9:10 AM ESTAncillary Procedure [facility] [address] [place] [phone] Adjustment and management of cardiac iwvgcfpoq60/20/2025Orders Only [facility] [address] [place] [phone] Sarabjit Sierra MD 04/25/2025 2:45 PM ESTOffice Visit [facility] [address] [place] [address] Alexandria Santos MD Coronary artery disease involving craig coronary artery of craig heart without angina pectoris (Primary Dx); Bilateral carotid artery stenosis; Nonrheumatic tricuspid valve regurgitation; Bcqccakuc96/12/2025Orders Only [facility] [address] [place] [address] Sangita Stiles MA Carotid stenosis, bilateral (Primary Dx)from Last 3 Months Immunizations ImmunizationAdministration DatesNext DueCovid (Pfizer) Bivalent Booster =>12 YRS 05/27/2022Influenza, High Dose Seasonal, Preservative Free03/23/2017,03/18/2016 Influenza, High-dose Seasonal, Quadrivalent, Preservative Free03/19/2021 Influenza, Seasonal, Quadrivalent, Sibzgheegv06/21/2022Influenza, trivalent, lgnpkqfeug11/09/2020Moderna SARS-CoV-2 Rxannjtbedi35/01/2021,08/20/2020, 1Pneumococcal Polysaccharide TBM1864 Family History Medical HistoryRelationNameCommentsAlcohol abuseFatherAneurysmMotherRelationName StatusCommentsFatherDeceasedMotherDeceased Social History Tobacco UseTypesPacks/DayYears UsedDateSmoking Tobacco: NeverSmokeless Tobacco: Never Tobacco Cessation:Counseling Given: Not Answered Alcohol UseStandard Drinks/WeekCommentsNot Currently0 (1 standard drink = 0.6 oz pure alcohol)UT Safety & EnvironmentAnswerDate RecordedFear of Current or Ex-PartnerNot on file08/05/2023Emotionally AbusedNot on file08/05/2023hysically AbusedNot on file08/05/2023Sexually AbusedNot on file4Physically or Sexually AbusedNot on file4CommentsUnknownSex and Gender InformationValueDate RecordedSex Assigned at TcxyiJrfnrm41/01/2025 2:00 PM EDT Legal PqnZkyqwe23/29/2022 11:57 PM EDTGender KwioeqnnDgkoyu93/01/2025 2:00 PM EDTSexual OrientationHeterosexual or Akjmxawz72/01/2025 2:00 PM EDT Last Filed Vital Signs Vital SignReadingTime TakenCommentsBlood Nmbpoopt816/8104/25/2025 2:56 PM EST Kbzhr900804/25/2025 2:56 PM ESTTemperature--Respiratory Rate--Oxygen Jwsewtdksk23% 04/25/2025 2:56 PM ESTInhaled Oxygen Concentration--Ltxzhy77.1 kg (148 lb) 04/25/2025 2:56 PM HMGSajcmc291.5 cm (5' 2 )04/25/2025 2:56 PM ESTBody Mass Index27.0704/25/2025 2:56 PM EST Plan of Treatment Health MaintenanceDue DateLast DoneCommentsMedicare Annual Wellness (AWV) 1Depression Hujnqqltv85/14/1953Adult Rqueaml8007/28/1962Zoster Vaccines (1 of 2)1990Fall Risk Kbjuesyvq99/14/2006Pneumococcal Vaccine: 50+ Years (2 of 2 - PCV)2COVID-19 Vaccine (2024- season) , 05/14/2021, 05/14/2021, Additional history existsInfluenza MmauwzbOsyxnzrrc38/07/2025, 04/21/2024, 04/07/2023, Additional history existsHIB VaccinesAged OutNo longer eligible based on patient's age to complete this topic HPV VaccinesAged OutNo longer eligible based on patient's age to complete this topicIPV VaccinesAged OutNo longer eligible based on patient's age to complete this topicMeningococcal B VaccineAged OutNo longer eligible based on patient's age to complete this topicMeningococcal VaccineAged OutNo longer eligible based on patient's age to complete this topicRotavirus VaccinesAged OutNo longer eligible based on patient's age to complete this topic Procedures Procedure NamePriorityDate/TimeAssociated DiagnosisCommentsCARDIAC DEVICE CHECK CHECK - HYAOXOQsdygyn95/24/2025 10:10 AM EST Adjustment and management of cardiac pacemaker CARDIAC DEVICE CHECK - REMOTE - UDIOCCKHJXcdlqpf78/20/2025 12:00 AM ESTfrom Last 3 Months Results * CARDIAC DEVICE CHECK - REMOTE - PACEMAKER (05/07/2025 10:10 AM EST)Specimen (Source)Anatomical Location / LateralityCollection Method / VolumeCollection TimeReceived Time Narrative Authorizing ProviderResult TypeResult StatusPaul Rigo MDCV IMPLANTABLE CARDIAC DEVICE PROCEDURESFinal ResultPerforming OrganizationAddressCity/State/ZIP Code Phone Number CPACS * Cardiac device check - Remote pacemaker (05/03/2025 12:00 AM EST)Anatomical RegionLateralityModalityOtherSpecimen (Source)Anatomical Location / Laterality Collection Method / VolumeCollection TimeReceived Time05/03/2025 Narrative Authorizing ProviderResult TypeResult StatusPaul Rigo MDCV IMPLANTABLE CARDIAC DEVICE PROCEDURESFinal Result from Last 3 Months Insurance * Guarantor: America Haas TypeRelation to PatientDate of BirthPhone Billing AddressPersonal/NgwcreNyha96/14/1941 [address] [place] [address] Care Teams Team MemberRelationshipSpecialtyStart Date Ganesh Samuel MD [address] [facility] [place] [address] PCP - General07/08/22
--- OUTSIDE RECORDS SUMMARY | 2025-05-18 12:50 | XMS_ITS | Patient Health Record ---
Author Organization [facility] in [place] Address [address] [place] [address] Care Team Providers Care Gift Wrapper Name Role Phone Lalo Faustin Primary Care Provider [phone] Allergies Allergen (clinical drug ingredient) Drug/Non Drug Allergy documented on EMR Reaction Allergy Type Onset Date Status paper tape (uncoded)blistersAllergyActiveamitriptylineAmitriptyline hallucinationsDrug AllergyActiveSilenorDoxepinHallucinationsDrug AllergyActive ciprofloxacinCiprofloxacinmental status changesDrug AllergyActive Results Component Value Reference Range Notes CBC AUTO DIFF Reviewed date:08/09/2024 08:05:07 PM Interpretation: Performing Lab: Notes/Report: [facility] , White Blood Count 17.7 4.0-11.0 10 3/uL Red Blood Count4.344.20-5.40 10 6/nILrbwhyxepd29.212.0-16.0 g/cDWxkoxzzjbp81.2 36.0-48.0 %Mean Corpuscular Capehn628.181.0-99.0 fLMean Corpuscular Hemoglobin 35.026.7-34.0 pgMean Corpuscular HGB Conc33.629.9-35.2 g/dLRed Cell Distribution Width13.211.0-15.0 %Platelet Bshtz087642-517 10 3/uLMean Platelet Volume9.29.5- 13.5 fLNeutrophils Percent Auto72.643.0-75.0 %Lymphocytes Percent Auto18.820.5- 60.0 %Monocytes Percent Auto6.31.7-12.0 %Eosinophils Percent Auto0.70.9-7.0 % Basophils Percent Auto0.40.2-2.0 %Immature Granulocytes Pct Auto1.20.0-0.5 % Neutrophils Absolute Auto12.91.4-6.5 10 3/uLLymphocytes Absolute Auto3.31.2-3.8 10 3/uLMonocytes Absolute Auto1.10.3-0.8 10 3/uLEosinophils Absolute Auto0.10.0- 0.7 10 3/uLBasophils Absolute Auto0.10.0-0.1 10 3/uLImmature Granulocytes Abs Auto0.210.00-0.03 10 3/uLPerforming Lab:see note - [facility] LBBNP Reviewed date:07/13/2024 07:59:10 PM Interpretation: Performing Lab: Notes/Report: [facility] ,NT Pro B Type Natriuretic Gmmi8505.0<=1800.0 pg/mLPerforming Lab:see note - [facility] LBUA Micro, reflex to culture Reviewed date:07/13/2024 07:59:10 PM Interpretation: Performing Lab: Notes/Report: [facility] ,Color UrineYELLOWYELLOWClarity UrineCLEARCLEARSpecific [place] Urine1.010 1.005-1.025pH Urine6.05.0-9.0Protein UrineNEGATIVENEG/TRACE mg/dLGlucose Urine UANEGATIVENEGATIVE mg/dLBilirubin UrineNEGATIVENEGATIVEKetones UrineNEGATIVE NEGATIVE mg/dLBlood UrineTRACE-INEGATIVENitrite UrineNEGATIVENEGATIVE Urobilinogen Urine0.20.2-1.0 EU/dLLeukocyte Esterase UrineSMALLNEGATIVEWBC Urine 5-10NONE SEEN #/HPFRBC Urine0-20-2 #/HPFBacteria UrineSMALLNONE SEEN #/HPFMucus UrineTRACENONE SEENSquamous Epithelial Cell UrineMANYNONE/RARE #/LPFTransitional Epi Cells UrineRARENONE SEEN #/LPFCrystals Seen?None SeenNone Seen #/HPFCast Seen?SEENNONE SEEN #/LPFHyaline Casts UrineRAREUrine Culture IndicatedYES Performing Lab:see note - [facility] LBECG 12 lead Reviewed date:07/17/2024 08:46:19 PM Interpretation: Performing Lab: Notes/Report: Source Facility: [place] [address] Electrocardiograph Report Signed Patient: ABDIRAHMAN GOMEZ MR#: [id number] : 1940 Acct:[id number] Age/Sex: 83 / F ADM Date: 07/13/24 Loc: MS 231-[address]: Irish Faustin M.D. Ordering Physician: Brianda Cabral Date of Service: 07/13/24 Procedure(s): ECG 12 lead Accession Number(s): [id number] cc: 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 Signed By: 07/17/242042 DD/ 1350 TD/TT: Hide Buyer:VISHNU tomosynthesis screening BI Reviewed date:08/09/2024 08:05:07 PM Interpretation: Performing Lab: Notes/Report: Source Facility: [place] [address] Mammography Report Signed Patient: ABDIRAHMAN GOMEZ MR#: [id number] : 1940 Acct:[id number] Age/Sex: 84 / F ADM Date: 08/09/24 Loc: CARD Attending Dr: Irish Faustin M.D. Ordering Physician: Irish Faustin M.D. Results: Date of Service: 08/09/24 Follow Up: Procedure(s): MM tomosynthesis screening BI Accession Number(s): [id number] cc: Irish Faustin M.D. Patient Name: ABDIRAHMAN GOMEZ MR#: [id number] : 1940 Exam Date: 08/09/2024 Ordering Doctor: [...] Treatments None Family Cancers None LOCATION: [facility] BREAST COMPOSITION: The breasts are almost [...] Signed By: 08/09/24 1603 DD/ 1602 TD/TT: Hide Buyer:JAYNE T3 Reviewed date:09/27/2024 02:07:46 PM Interpretation: Performing Lab: Notes/Report: [facility] Jayne T32.982.18-3.98 pg/mLPerforming Lab:see noteML - [facility] LB LIPID PROFILE Reviewed date:09/27/2024 02:07:46 PM Interpretation: Performing Lab: Notes/Report: [facility] Cenjqixhhzefy779<=150 mg/cVIezvavgcgyd623<=200 mg/dLHDL Jwrrywotdtv2331-78 mg/dL > or =60 mg/dl - LOW CARDIOVASCULAR RISK <40 mg/dl - HIGH CARDIOVASCULAR RISK LDL Cholesterol Xpazkkwone80.0 <100 mg/dl OPTIMAL 100-129 mg/dl NEAR OR ABOVE OPTIMAL 130-159 mg/dl BORDERLINE HIGH 160-189 mg/dl HIGH >190 mg/dl VERY HIGH VLDL CBCROETTHEH96.8Chol HDL Ratio3.0 3.3 - 4.4 LOW RISK 4.4 - 7.1 AVERAGE RISK 7.1 - 11.0 MODERATE RISK >11.0 HIGH RISK Performing Lab:see noteML - [facility] LBPROF 14(COMP METB) Reviewed date:09/27/2024 02:07:46 PM Interpretation: Performing Lab: Notes/Report: [facility] ,Aturbd896924-855 mmol/LPotassium4.13.5-5.1 mmol/QUeltntsb66967-120 mmol/LCarbon Crczmep75.621.0-32.0 mmol/LAnion Gap12.2Mojocvw81727-454 mg/dLBlood Urea Esabbvyt69.07.0-18.0 mg/dLCreatinine1.000.55-1.02 mg/dLEstimated GFR ( Rose>60>=60 mL/min/1.73m 2Estimated GFR (Non- Ame53>=60 mL/min/1.73m 2 BUN Creatinine Ratio19.5Eyejatg7.28.5-10.1 mg/dLBilirubin Total0.40.2-1.0 mg/dL Aspartate Amino Wnaqledzfll7967-63 U/LAlanine Jytrecithxbbsbcu5970-48 U/L Alkaline Zfapyrofoih8226-854 U/LTotal Protein7.46.4-8.2 g/dLAlbumin Level3.63.4- 5.0 g/dLGlobulin3.8Albumin Globulin Ratio0.9Performing Lab:see note - [facility] LBT4 Reviewed date:09/27/2024 02:07:46 PM Interpretation: Performing Lab: Notes/Report: [facility] ,T4 Fcdqorgpr80.404.80-13.90 ug/dLPerforming Lab:see note - [facility] LBTSH Reviewed date:09/27/2024 02:07:46 PM Interpretation: Performing Lab: Notes/Report: [facility] ,Thyroid Stimulating Hormone2.3600.358-3.740 uIU/mLPerforming Lab:see noteML - [facility] LBPROF CHEM 8 (BAS METB) Reviewed date:01/23/2025 07:49:34 PM Interpretation: Performing Lab: Notes/Report: [facility] ,Tdxtan301443-053 mmol/LPotassium3.83.5-5.1 mmol/NSiesdyxh55664-320 mmol/LCarbon Tjqiwyn45.421.0-32.0 mmol/LAnion Gap11.9Gzsgeek72405-820 mg/dLBlood Urea Rlsgmysp98.07.0-18.0 mg/dLCreatinine0.850.55-1.02 mg/dLEstimated GFR ( Rose>60>=60 mL/min/1.73m 2Estimated GFR (Non- Jimena>60>=60 mL/min/1.73m 2BUN Creatinine Ratio11.6Ytigvnt5.38.5-10.1 mg/dLPerforming Lab:see noteML - [facility] LBXR chest 1V Reviewed date:01/23/2025 07:49:34 PM Interpretation: Performing Lab: Notes/Report: Source Facility: [place] [address] [place] [address] XRay Report Signed Patient: ABDIRAHMAN GOMEZ MR#: [id number] : 1940 Acct:[id number] Age/Sex: 84 / F ADM Date: 01/23/25 Loc: ER Attending Dr: Ordering Physician: Jona Story M.D. Date of Service: 01/23/25 Procedure(s): XR chest 1V Accession Number(s): [id number] cc: Irish Faustin M.D.; Jona Story M.D. [place] [address] Patient Name: ABDIRAHMAN GOMEZ MRN: [id number] date: 1940 Sex: F Assigned Patient Location: ER Current Patient Location: ER Accession/Order Number: [id number] Exam Date: 01/23/2025 16:18 Report Date: 01/23/2025 16:34 At the request of: JONA STORY MD Procedure: XR chest 1V Plain film chest Single view HISTORY: Cough and weakness COMPARISON: 08/09/2024 FINDINGS: SUPPORT DEVICES: None POSTSURGICAL CHANGES: Cardiac device remains intact. Sternotomy unchanged. HEART: Within normal limits PULMONARY DORA: Within normal limits MEDIASTINUM: Unremarkable LUNGS AND PLEURA: No acute lung process, pleural effusion or pneumothorax identified. BONY STRUCTURES: Intact ADDITIONAL FINDINGS None XR/XR chest 1V IMPRESSION: No acute process. Impression dictated by: Mamadou Rodríguez M.D. 01/23/2025 4:34 PM Dictation Location: [place] [address] Electronically authenticated by: [id number] Y Date: 01/23/2025 16:34 Dictated By: Mamadou Rodríguez D.O. Signed By: 01/23/25 1637 DD/ 1634 TD/TT: Hide Buyer:CBC AUTO DIFF Reviewed date:01/23/2025 04:07:10 PM Interpretation: Performing Lab: Notes/Report: [facility] ,White Blood Count13.04.0-11.0 10 3/uLRed Blood Count4.114.20-5.40 10 6/uL Fdnrsnqnzu31.112.0-16.0 g/uXBtxkfqcshp15.336.0-48.0 %Mean Corpuscular Volume 100.581.0-99.0 fLMean Corpuscular Zfhmjjxnpu18.326.7-34.0 pgMean Corpuscular HGB Conc34.129.9-35.2 g/dLRed Cell Distribution Width13.511.0-15.0 %Platelet Count 834544-229 10 3/uLMean Platelet Volume9.19.5-13.5 fLNeutrophils Percent Auto68.0 43.0-75.0 %Lymphocytes Percent Auto20.920.5-60.0 %Monocytes Percent Auto8.71.7- 12.0 %Eosinophils Percent Auto0.60.9-7.0 %Basophils Percent Auto0.50.2-2.0 % Immature Granulocytes Pct Auto1.30.0-0.5 %Neutrophils Absolute Auto8.81.4-6.5 10 3/uLLymphocytes Absolute Auto2.71.2-3.8 10 3/uLMonocytes Absolute Auto1.10.3-0.8 10 3/uLEosinophils Absolute Auto0.10.0-0.7 10 3/uLBasophils Absolute Auto0.10.0- 0.1 10 3/uLImmature Granulocytes Abs Auto0.170.00-0.03 10 3/uLPerforming Lab:see noteML - [facility] LBGLYCOHEMOGLOBIN A1C Reviewed date:09/27/2024 01:04:02 PM Interpretation: Performing Lab: Notes/Report: [facility] ,Glycohemoglobin A1C6.04.5-6.2 % ADA RECOMMENDED LIMIT 4.0 - 6.0 ADA THERAPEUTIC TARGET < 7.0 ACTION SUGGESTED > 7.0 Estimated Average Ufibnpq175Ktfuhsonat Lab:see noteML - [facility] LB CBC AUTO DIFF Reviewed date:09/27/2024 01:04:02 PM Interpretation: Performing Lab: Notes/Report: [facility] ,White Blood Count15.94.0-11.0 10 3/uLRed Blood Count4.214.20-5.40 10 6/uL Arrfpdxcsy23.512.0-16.0 g/fETpkjhavreh97.936.0-48.0 %Mean Corpuscular Volume 101.981.0-99.0 fLMean Corpuscular Luxeoexzxa38.426.7-34.0 pgMean Corpuscular HGB Conc33.829.9-35.2 g/dLRed Cell Distribution Width13.811.0-15.0 %Platelet Count 129634-707 10 3/uLMean Platelet Volume9.29.5-13.5 fLNeutrophils Percent Auto68.4 43.0-75.0 %Lymphocytes Percent Auto20.720.5-60.0 %Monocytes Percent Auto7.31.7- 12.0 %Eosinophils Percent Auto0.40.9-7.0 %Basophils Percent Auto0.60.2-2.0 % Immature Granulocytes Pct Auto2.60.0-0.5 %Neutrophils Absolute Auto10.91.4-6.5 10 3/uLLymphocytes Absolute Auto3.31.2-3.8 10 3/uLMonocytes Absolute Auto1.20.3- 0.8 10 3/uLEosinophils Absolute Auto0.10.0-0.7 10 3/uLBasophils Absolute Auto0.1 0.0-0.1 10 3/uLImmature Granulocytes Abs Auto0.410.00-0.03 10 3/uLPerforming Lab:see noteML - [facility] LBXR chest 2V Reviewed date:08/09/2024 08:05:07 PM Interpretation: Performing Lab: Notes/Report: Source Facility: [place] [address] [place] [address] XRay Report Signed Patient: ABDIRAHMAN GOMEZ MR#: [id number] : 1940 Acct:[id number] Age/Sex: 84 / F ADM Date: 08/09/24 Loc: CARD Attending Dr: Irish Faustin M.D. Ordering Physician: Irish Faustin M.D. Date of Service: 08/09/24 Procedure(s): XR chest 2V Accession Number(s): [id number] cc: Irish Faustin M.D. [place] [id number] Patient Name: ABDIRAHMAN GOMEZ MRN: [id number] date: 1940 Sex: F Assigned Patient Location: CARD Current Patient Location: CARD Accession/Order Number: [id number] Exam Date: 08/09/2024 14:27 Report Date: 08/09/2024 [...] Ngozi Desai M.D.08/09/2024 2:32 PM Dictation Location: [place] [address] Electronically authenticated by: [id number] Y Date: 08/09/2024 14:32 Dictated By: Ngozi Desai M.D. Signed By: 08/09/24 143 DD/ 31 TD/TT: Hide Buyer:HILARIO echo doppler complete Reviewed date:08/09/2024 08:05:07 PM Interpretation: Performing Lab: Notes/Report: Source Facility: [place] [address] Cardiology Report Signed Patient: ABDIRAHMAN GOMEZ MR#: [id number] : 1940 Acct:[id number] Age/Sex: 84 / F ADM Date: 08/09/24 Loc: CARD Attending Dr: Irish Faustin M.D. Ordering Physician: Irish Faustin M.D. Date of Service: 08/09/24 Procedure(s): CA echo doppler complete Accession Number(s): [id number] cc: Irish Faustin M.D. Patient Name: ABDIRAHMAN GOMEZ MR#: [id number] : 1940 Exam Date: 08/09/2024 Ordering Doctor: [...] LOPEZ Signed By: 08/09/241718 DD/ 17 TD/TT: Hide Buyer:PROF Young(COMP METB) Reviewed date:08/09/2024 08:05:07 PM Interpretation: Performing Lab: Notes/Report: [facility] ,Mgitrj792818-737 mmol/LPotassium4.33.5-5.1 mmol/QXhfksyhm19405-850 mmol/LCarbon Rughxaq30.321.0-32.0 mmol/LAnion Gap15.7Qklqqkg53350-464 mg/dLBlood Urea Kxlocnnu84.07.0-18.0 mg/dLCreatinine1.010.55-1.02 mg/dLEstimated GFR ( Rose>60>=60 mL/min/1.73m 2Estimated GFR (Non- Ame52>=60 mL/min/1.73m 2 BUN Creatinine Ratio14.6Fdligfk4.68.5-10.1 mg/dLBilirubin Total0.40.2-1.0 mg/dL Aspartate Amino Xwpblqtbkxw0828-13 U/LAlanine Itzghspuqifbhdya0984-57 U/L Alkaline Jklmqybaqpw9452-900 U/LTotal Protein7.96.4-8.2 g/dLAlbumin Level3.83.4- 5.0 g/dLGlobulin4.1Albumin Globulin Ratio0.9Performing Lab:see noteML - [facility] LBPROF CHEM 8 (BAS METB) Reviewed date:07/15/2024 04:09:24 PM Interpretation: Performing Lab: Notes/Report: [facility] ,Krpwst529831-689 mmol/LPotassium3.93.5-5.1 mmol/LQxpqjeug69567-486 mmol/LCarbon Zhmojqa02.721.0-32.0 mmol/LAnion Gap14.3Amtipag93164-299 mg/dLBlood Urea Lavgnxrr43.07.0-18.0 mg/dLCreatinine0.810.55-1.02 mg/dLEstimated GFR ( Rose>60>=60 mL/min/1.73m 2Estimated GFR (Non- Jimena>60>=60 mL/min/1.73m 2BUN Creatinine Ratio22.5Sslpykg3.88.5-10.1 mg/dLPerforming Lab:see noteML - [facility] LBMAGNESIUM Reviewed date:07/15/2024 04:09:24 PM Interpretation: Performing Lab: Notes/Report: [facility] ,Magnesium2.11.8-2.4 mg/dLPerforming Lab:see noteML - [facility] LB LIVER PROFILE Reviewed date:07/15/2024 04:09:24 PM Interpretation: Performing Lab: Notes/Report: [facility] ,Bilirubin Total0.40.2-1.0 mg/dLBilirubin Direct0.10.0-0.2 mg/dLAspartate Amino Ukuupcmrske2364-70 U/LAlanine Auasrrabskzcpcca1111-18 U/LAlkaline Sefpyhnstsa30 46-116 U/LTotal Protein6.66.4-8.2 g/dLAlbumin Level2.73.4-5.0 g/dLGlobulin3.9 Albumin Globulin Ratio0.7Performing Lab:see noteML - [facility] LBCBC AUTO DIFF Reviewed date:07/15/2024 04:09:24 PM Interpretation: Performing Lab: Notes/Report: [facility] ,White Blood Count11.14.0-11.0 10 3/uLRed Blood Count3.474.20-5.40 10 6/uL Maubqpexgr22.012.0-16.0 g/sHLfydzrmfki95.136.0-48.0 %Mean Corpuscular Volume 104.081.0-99.0 fLMean Corpuscular Spegqjrjru19.626.7-34.0 pgMean Corpuscular HGB Conc33.229.9-35.2 g/dLRed Cell Distribution Width13.211.0-15.0 %Platelet Count 015058-182 10 3/uLMean Platelet Volume9.29.5-13.5 fLNeutrophils Percent Auto64.6 43.0-75.0 %Lymphocytes Percent Auto24.620.5-60.0 %Monocytes Percent Auto7.91.7- 12.0 %Eosinophils Percent Auto1.60.9-7.0 %Basophils Percent Auto0.40.2-2.0 % Immature Granulocytes Pct Auto0.90.0-0.5 %Neutrophils Absolute Auto7.21.4-6.5 10 3/uLLymphocytes Absolute Auto2.71.2-3.8 10 3/uLMonocytes Absolute Auto0.90.3- 0.8 10 3/uLEosinophils Absolute Auto0.20.0-0.7 10 3/uLBasophils Absolute Auto0.0 0.0-0.1 10 3/uLImmature Granulocytes Abs Auto0.100.00-0.03 10 3/uLPerforming Lab:see noteML - [facility] LBBNP Reviewed date:07/15/2024 04:09:24 PM Interpretation: Performing Lab: Notes/Report: [facility] ,NT Pro B Type Natriuretic Iwvk288.0<=1800.0 pg/mLPerforming Lab:see noteML - [facility] LBUrine Culture, Routine Reviewed date:07/15/2024 04:09:24 PM Interpretation: Performing Lab: Notes/Report: [facility] ,Urine Culture, RoutineSee Below For Report Urine Culture, Routine Urine Culture, RoutineGreater than 2 organisms recovered, none predominant. Please submit Urine Culture, Routine Urine Culture, Routineanother sample if clinically indicated. Urine Culture, Routine Urine Culture, Tarurds66,000-50,000 colony forming units per mL Urine Culture, Routine Urine Culture, RoutinePerformed at: CB - [facility] [place] Urine Culture, Routine Urine Culture, [address] [place], [place] [id number] Urine Culture, Routine Urine Culture, RoutineLab Director: Isra Rasheed PhD, Phone: [phone] Urine Culture, Routine Performing Lab:see note - [facility] LB SEE REPORT - Spanish Medical Interpreter Id information not found for OBX-specific media producer legend SARS-CoV-2 Ag* Reviewed date:07/13/2024 07:59:10 PM Interpretation: Performing Lab: Notes/Report: [facility] ,SARS-CoV-2 AgNEGATIVENEGATIVE This test has not been FDA cleared [...] terminated or authorization is revoked sooner. Performing Lab:see noteML - [facility] LBVenous Blood Gas Reviewed date:07/13/2024 07:59:10 PM Interpretation: Performing Lab: Notes/Report: [facility] ,pH VBG7.4677.330-7.810YVG9 VBG31.540.0-52.0 mmHgPerforming Lab:see noteML - [facility] LBTroponin I High Sensitivity Reviewed date:07/13/2024 07:59:10 PM Interpretation: Performing Lab: Notes/Report: [facility] ,Troponin I High Sensitivity9.54.0-51.3 pg/mL CUT-OFF POINTS HAVE BEEN ESTABLISHED BASED ON THE FOURTH UNIVERSAL DEFINITION OF MYOCARDIAL INFARCTION. THE UPPER REFERENCE LIMIT (URL) OF TROPONIN, DEFINED THE 99TH PERCENTILE OF cTnI DISTRIBUTION IN A REFERENCE POPULATION, HAS BEEN CONFIRMED THE DECISION THRESHOLD FOR MD DIAGNOSIS. 99TH PERCENTILE = 51.4 PG/ML NOTE: HIGH-SENSITIVITY TROPONIN ASSAY IS NOT INTENDED TO BE USED IN ISOLATION BUT SHOULD BE INTERPRETED IN CONJUNCTION WITH OTHER DIAGNOSTIC AND CLINICAL INFORMATION. Performing Lab:see note - [facility] LBProthrombin Time INR Reviewed date:07/13/2024 07:59:10 PM Interpretation: Performing Lab: Notes/Report: [facility] ,Prothrombin Time11.29.0-11.6 secINR1.06 DESIRED INR: 2.0-3.0 CONDITIONS NOT LISTED BELOW 2.5-3.5 FOR PROSTHETIC HEART VALVE REPLACEMENT 2.5-3.5 RECURRENT THROMBOSIS Performing Lab:see note - [facility] LBBlood Culture 2 Reviewed date:07/19/2024 04:50:25 PM Interpretation: Performing Lab: Notes/Report: [facility] ,Blood Culture 2See Below For Report Blood Culture 2 NG5D NO GROWTH AT 5 DAYS. Performing Lab:see note - [facility] LBBlood Culture 1 Reviewed date:07/19/2024 04:50:25 PM Interpretation: Performing Lab: Notes/Report: [facility] ,Blood Culture 1See Below For Report Blood Culture 1 NG5D NO GROWTH AT 5 DAYS. Performing Lab:see note - [facility] LBPROF 14(COMP METB) Reviewed date:07/13/2024 07:59:10 PM Interpretation: Performing Lab: Notes/Report: [facility] ,Hmldyv013715-418 mmol/LPotassium4.83.5-5.1 mmol/VDflltjah6212-061 mmol/LCarbon Mjvsqoz76.621.0-32.0 mmol/LAnion Gap18.1Wqqckxt59525-239 mg/dLBlood Urea Gzpgxwog97.07.0-18.0 mg/dLCreatinine1.060.55-1.02 mg/dLEstimated GFR ( Atstrbt52>=60 mL/min/1.73m 2Estimated GFR (Non- Ame50>=60 mL/min/1.73m 2 BUN Creatinine Ratio17.9Jamlhnu5.18.5-10.1 mg/dLBilirubin Total0.60.2-1.0 mg/dL Aspartate Amino Bolwjwlmigi5812-99 U/LAlanine Odkymtlnsfwfeoaw2792-88 U/L Alkaline Bkodhjydbpv7742-967 U/LTotal Protein7.66.4-8.2 g/dLAlbumin Level3.23.4- 5.0 g/dLGlobulin4.4Albumin Globulin Ratio0.7Performing Lab:see noteML - [facility] LBLACTATE or LACTIC ACID Reviewed date:07/13/2024 07:59:10 PM Interpretation: Performing Lab: Notes/Report: [facility] ,Lactate/Lactic Acid1.80.4-2.0 mmol/LPerforming Lab:see noteML - [facility] LBINFLUENZA A AND B AG Reviewed date:07/13/2024 07:59:10 PM Interpretation: Performing Lab: Notes/Report: [facility] ,Influenza Virus A AntigenNegative Negative for Flu A protein antigen. Infection due to Flu A cannot be ruled out. Flu A antigen in the sample may be below the detection limit of the test. Influenza Virus B AntigenNegative Negative for Flu B protein antigen. Infection due to Flu B cannot be ruled out. Flu B antigen in the sample may be below the detection limit of the test. Performing Lab:see noteML - [facility] LBCBC AUTO DIFF Reviewed date:07/13/2024 07:59:10 PM Interpretation: Performing Lab: Notes/Report: [facility] ,White Blood Count23.24.0-11.0 10 3/uLRed Blood Count3.984.20-5.40 10 6/uL Xvuilffaxl35.912.0-16.0 g/sLPvdshybztq74.636.0-48.0 %Mean Corpuscular Volume 104.581.0-99.0 fLMean Corpuscular Unqsnwxozs72.926.7-34.0 pgMean Corpuscular HGB Conc33.429.9-35.2 g/dLRed Cell Distribution Width13.011.0-15.0 %Platelet Count 572341-107 10 3/uLMean Platelet Volume9.29.5-13.5 fLNeutrophils Percent Auto82.2 43.0-75.0 %Lymphocytes Percent Auto10.720.5-60.0 %Monocytes Percent Auto5.21.7- 12.0 %Eosinophils Percent Auto0.70.9-7.0 %Basophils Percent Auto0.30.2-2.0 % Immature Granulocytes Pct Auto0.90.0-0.5 %Neutrophils Absolute Auto19.11.4-6.5 10 3/uLLymphocytes Absolute Auto2.51.2-3.8 10 3/uLMonocytes Absolute Auto1.20.3- 0.8 10 3/uLEosinophils Absolute Auto0.20.0-0.7 10 3/uLBasophils Absolute Auto0.1 0.0-0.1 10 3/uLImmature Granulocytes Abs Auto0.220.00-0.03 10 3/uLPerforming Lab:see noteML - [facility] LBECG 12 lead Reviewed date:01/23/2025 08:05:32 PM Interpretation: Performing Lab: Notes/Report: Source Facility: [place] [address] Electrocardiograph Report Signed Patient: ABDIRAHMAN GOMEZ MR#: [id number] : 1940 Acct:[id number] Age/Sex: 84 / F ADM Date: 01/23/25 Loc: ER Attending Dr: Ordering Physician: Jona Story M.D. 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 Measurements Intervals [place] Rate: 84 P: -37821 CO: -41507 QRS: -82 QRSD: 84 T: 74 QT: 374 QTc: 414 Interpretive Statements 25930 Atrial fibrillation with aberrant conduction, or ventricular premature complexes 3113 Cannot rule out anterior myocardial infarction, probably old 3633 Inferior myocardial infarction, probably old [address] depression, probably digitalis effect 7200 Abnormal left axis deviation 9150 abnormal ECG Compared to ECG 07/13/2024 13:50:10 Ventricular premature complex(es) now present Myocardial infarct finding still present ST (T wave) deviation still present Electronically Signed On 01-23-2025 19:56:17 EDT by ERIK LOPEZ M.D. Dictated By: ERIK LOPEZ Signed By: 01/23/251955 DD/ 151 TD/TT: Hide Buyer: Reason For Referral No Information Medications Medication SIG (Take, Route, Frequency, Duration) Notes Start Date End Date Status tiZANidine HCl 4 MG TAKE TWO TABLETS BY MOUTH EVERY NIGHT AT BEDTIME; Duration: 30 ActiveMagnesium 400 MGas directed Orally once dailyActiveIsosorbide Mononitrate ER 30 MG1 tablet Orally every morning; Duration: 90 daysActiveKlor-Con M20 20 MEQ1 tablet with food Orally Once a day; Duration: 90 daysActiveMetamucilPRN ActiveValsartan 40 MG1 tablet Orally Once a day; Duration: 90 daysActive Furosemide 20 MG1 tablet Orally every morning; Duration: 90 daysActiveWhe[facility]al[facility] Needs light weight for transportation so can go to store adn Dr appointments 11/04/2023ctiveEliquis 2.5 MG1 tablet Orally Twice a dayActiveVitamin C 500 MG as directed OrallyActiveFish Oil 1200 MG1 capsule Orally Once a dayActiveVitamin D3 125 MCG (5000 UT)1 capsule Orally Once a dayActiveHYDROcodone-Acetaminophen 5-325 MG1 tablet as needed Orally BID dx M51.36; Duration: 30 days05/03/2025 ActiveamLODIPine Besylate 10 MG1 tablet Orally Once a dayActiveSenna-Time 8.6 MG TAKE TWO TABLETS BY MOUTH TWICE A DAY; Duration: 90ActiveBiotin Extra Strength ActivePramipexole Dihydrochloride 0.5 MGTAKE ONE TABLET BY MOUTH ONCE NIGHTLY; Duration: 90ActiveRosuvastatin Calcium 5 MGTAKE 1 TABLET BY MOUTH DAILY; Duration: 90ActiveCollagenActiveCarvedilol 12.5 MG1 tablet with food Orally Twice a dayActiveTransderm-Scop 1 MG/3DAYS1 patch to skin behind the ear as needed Transdermal Q 3 days; Duration: 30 days01/19/2024ctiveClearLaxPRNActive Montelukast Sodium 10 MG1 tablet Orally Once a day; Duration: 90 daysActive Omeprazole 40 MG1 capsule 1/2 to 1 hour before morning meal Orally twice daily; Duration: 90 daysActiveMultivitamin -1 tablet Orally Once a dayActiveLORazepam 1 MGTAKE A HALF TO 1 TABLET BY MOUTH 2 TIMES A DAY NEEDED; Duration: 30 5Active Immunizations Vaccine Route Administration Date Status Comme nts Flu, Fluad (3988-5056) (16598) 65 yrs+, single-dose syringe IM Intramuscular 04/07/2023 Administered Flu, Fluad (01275) 65 yrs + High Dose Seasonal ()Qienuhn9903/18/2016 AdministeredFlu, Fluad (20611) 65 yrs + High Dose Seasonal ()Unknown 03/23/2017AdministeredFlu, Fluad (47923) 65 yrs and older, single-dose syringe (3404-4928)Kxteqyt2403/22/2020AdministeredFlu, Fluad (02123) 65 yrs and older, single-dose syringe ()IM Ttugftebdepbu01/08/2024AdministeredFlu, Fluad (42275) 65 yrs+, single-dose syringe (3156-9077)Qxmokur9104/03/2022dministered Flu, Fluzone High-Dose () (25321) 65 yrs+Gfuuxas06/06/2021Administered Pneumococcal (Pneumovax 23)Wihgkev29/21/5869ItjzlyvsdkgjYING-PQP-2 (COVID 19 Moderna - Booster 0.25mL)Wdompro91/09/4694InjmbeiljdxxNPXV-BGL-5 (COVID 19 Moderna - Booster 0.25mL)Embxvap63/09/0660OrpluqfitydwKBNC-OQP-8 (COVID 19 Moderna - Booster 0.25mL)Prnqppv99/01/1963TtockjojuptyOPIY-WYT-7 (COVID 19) bivalent 30 mcg/0.3 ml zbpcQwribub93/14/2022dministered Social History Tobacco Use: Social History Observation Description Date Details (start date - stop date) Never Smoker NA - NA Tobacco Use/Smoking Question Answer Notes Patient is a nonsmoker Alcohol Screen (Audit-C) Question Answer Notes Did you have a drink containing alcohol in the p ast year? No Yegzbo9RlazxqwcsfjjouFpkdzmcbVGLBD-M (Standard) Question Answer Notes Did you have a drink containing alcohol in the p ast year? No Ilftiw8LceihuzuxvrhoeZloibzas Problems Problem Type SNOMED Code ICD Code Onset Dates Problem Status W/U Status Risk Notes Problem Low back pain (586491821) Low back pain ( 724.5) ActiveconfirmedProblemGeneralized anxiety disorder (15818153)Generalized anxiety disorder (F41.1)ActiveconfirmedProblemAtherosclerotic heart disease of [place] coronary artery without angina pectoris (786077424884940)Atherosclerotic heart disease of [place] coronary artery without angina pectoris (I25.10)Active confirmedProblemHematemesis (2615116)Hematemesis (K92.0)ActiveconfirmedProblem Backache (241532805)Dorsalgia, unspecified (M54.9)ActiveconfirmedProblem Palpitations (98742681)Palpitations (R00.2)ActiveconfirmedProblemHistory of cerebrovascular accident without residual deficits (927070143)Personal history of transient ischemic attack (TIA), and cerebral infarction without residual deficits (Z86.73)ActiveconfirmedProblemCardiac pacemaker in situ (924077090) Presence of cardiac pacemaker (Z95.0)ActiveconfirmedProblemSeizure (34103979) Seizure (R56.9)ActiveconfirmedProblemHypertension (08469018)Hypertension (I10) ActiveconfirmedProblemAtrial fibrillation (disorder) (85442532)Afib (I48.91) ActiveconfirmedProblemAtrial fibrillation (77379635)AF (paroxysmal atrial fibrillation) (I48.0)ActiveconfirmedProblemCoronary artery disease (00085760)CAD (coronary artery disease) (I25.10)ActiveconfirmedProblemPneumonia (682914956) Pneumonia (J18.9)ActiveconfirmedProblemInsomnia (548451514)Insomnia (G47.00) ActiveconfirmedProblemCongestive heart failure (48640049)Congestive heart failure (I50.9)ActiveconfirmedProblemThyroid nodule (502709829)Thyroid nodule (E04.1)ActiveconfirmedProblemOsteoporosis (79168525)Osteoporosis (M81.0)Active confirmedProblemTricuspid valve disorder (54084937)Moderate tricuspid regurgitation (I07.1)ActiveconfirmedProblemCervical disc disease (560439405) Cervical disc disease (M50.90)ActiveconfirmedProblemAbnormal glucose level (448433798)Abnormal glucose (R73.09)ActiveconfirmedProblemChest wall pain (444468368)Chest wall pain (R07.89)ActiveconfirmedProblemLeft inguinal hernia (691481850)Left inguinal hernia (K40.90)ActiveconfirmedProblemLeukocytosis (161548059)Leukocytosis (D72.829)ActiveconfirmedProblemRight foot injury (357413089)Right foot injury (S99.921A)ActiveconfirmedProblemHyperinsulinism (38475929)Hyperinsulinism (E16.1)ActiveconfirmedProblemDegeneration of lumbar intervertebral disc (27962180)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)ActiveconfirmedProblemEssential hypertension (46897211)BP (high blood pressure) (I10)ActiveconfirmedProblemPure hypercholesterolemia (177400357) Elevated cholesterol (E78.00)ActiveconfirmedProblemBruise (525363618)Bruise (T14.8XXA)ActiveconfirmedProblemLow back pain associated with a spinal disorder other than radiculopathy or spinal stenosis (M54.50)Activeconfirmed Vital Signs Heart Rate 76 /min 07/20/2024 Vdbhcbml20 %07/20/2024lood pressure mm Hg05/03/20259325Obycrv02 in 05/03/2025lood pressure eislezxv115 mm Hg05/03/20252710Ekqjnt594.2 lbs107/03/2024MI 26.74 kg/m205/03/2025 Procedures Procedure Date Ordered Date Performed Result Body Sit e CARDIO Echocardiogram 07/20/2024 N/A Encounters Encounter Location Date Provider Diagnosis [facility] ([place], [place]) [address] [place] [address] 73/16/2025 Lalo Faustin [facility] [place] [address] 04/03/2025Doug HoyCAD (coronary artery disease) I25.10[facility] [place] [address]/Doug HoyCAD (coronary artery disease) I25.10[facility] [place] [address]/[facility] [place] [address]/07/2024[facility] [place] [address]/[facility] [place] [address]/05/2025 [facility] [place] [address] 02/08/2025Doug HoyCAD (coronary artery disease) I25.10[facility] [place] [address]/Doug HoyCAD (coronary artery disease) I25.10[facility] [place] [address]/[facility] [address] [place] [address]/07/2024Doug HoyBP (high blood pressure) I10 ; Elevated cholesterol E78.00 ; Hyperinsulinism E16.1 ; Abnormal glucose R73.09 ; Thyroid nodule E04.1 ; Fatigue R53.83 and Screening for colon cancer Z12.11[facility] [place] [address]/09/2024[facility] [place] [address]/[facility] [place] [address]/[facility] [place] [address]/10/2024[facility] [place] [address]/07/2024 [facility] [place] [address]/08/2024[facility] [place] [address]/10/2024[facility] [place] [address]/Doug HoyPneumonia J18.[address] [place] [address] [place] [address]/ [facility] [place] [address]/10/2024[facility] [place] [address]/11/2024[facility] [place] [address]/[facility] [address] [place] [address]/oug [facility] [place] [address]/oug [facility] [place] [address] 06/16/2024[facility] [place] [address]/[facility] [address] [address]/Doug HoyB[address] [address]/11/2024Doug HoyAF (paroxysmal atrial fibrillation) I48.0 ; CAD (coronary artery disease) I25.10 ; Congestive heart failure I50.9 ; Pneumonia J18.9 and Back pain M54.9B[address] [address]/Doug HoyCAD (coronary artery disease) I25.10 ; Chest wall pain R07.89 and Hematemesis K92.[address] [address] 05/03/2025Doug HoyCAD (coronary artery disease) I25.10 ; AF (paroxysmal atrial fibrillation) I48.0 ; Dorsalgia, unspecified M54.9 ; Hemoptysis R04.2 and Low back pain, unspecified M54.[address] [address]/Doug HoyLeft inguinal hernia K40.90 and Low back pain associated with a spinal disorder other than radiculopathy or spinal stenosis M54.[address] [address]/12/2024Doug HoyAcute bronchitis, unspecified organism J20.9 Assessments Encounter Date Diagnosis (ICD Code) Assessment Notes Treatment Notes Treatment Clinical Notes Section Notes 07/20/2024 AF (paroxysmal atrial fibrillati on) (ICD-10 - I48.0) 5CAD (coronary artery disease) (ICD-10 - I25.10)5Acute bronchitis, unspecified organism (ICD-10 - J20.9)Rest and drink more liquids, especially water. You may use a humidifier or vaporizer to help keep the drainage moist. Icqu-akp-zyxboze Nasal Saline may help the stuffy and runny nose. Use Ibuprofen and or Tylenol as needed for fever, chills, body aches or pain. Children 5 years old should not be given swqx-grq-sxdlvsp cough and cold medications such as guaifenesin and dextromethorphan. If you're over age 5, you may try hfzd-gcg-gzwhtro cold medications such as guaifenesin and dextromethorphan, or multi-symptom cold reliever such as Dayquil to help reduce the symptoms. Antibiotics have been prescribed. You should take these until completed and follow the directions. Antibiotics can sometimescause upset stomach, and in rare cases, serious [...] go to the emergency room or call [phone] inguinal hernia (ICD-10 - K40.90)11/08/2024Low back pain associated with a spinal disorder other than radiculopathy or spinal stenosis (ICD-10- M54.50) lcewqluqej30/27/2025AD (coronary artery disease) (ICD-10 - I25.10)02/07/2025 Chest wall pain (ICD-10 - R07.89)08/07/2024Pneumonia (ICD-10 - J18.9)09/13/2024 BP (high blood pressure) (ICD-10 - I10)09/13/2024Elevated cholesterol (ICD-10 - E78.00)05/03/2025AD (coronary artery disease) (ICD-10 - I25.10)5AF (paroxysmal atrial fibrillation) (ICD-10 - I48.0)02/08/2025AD (coronary artery disease) (ICD-10 - I25.10)5CAD (coronary artery disease) (ICD-10 - I25.10)5CAD (coronary artery disease) (ICD-10 - I25.10)5CAD (coronary artery disease) (ICD-10 - I25.10)05/03/2025Dorsalgia, unspecified (ICD-10 - M54.9)09/13/2024Hyperinsulinism (ICD-10 - E16.1)02/07/2025Hematemesis (ICD-10 - K92.0)07/20/2024ongestive heart failure (ICD-10 - I50.9)07/20/2024 Pneumonia (ICD-10 - J18.9)09/13/2024bnormal glucose (ICD-10 - R73.09)05/03/2025 Hemoptysis (ICD-10 - R04.2)05/03/2025Low back pain, unspecified (ICD-10 - M54.50)09/13/2024Thyroid nodule (ICD-10 - E04.1)07/20/2024ack pain (ICD-10 - M54.9)09/13/2024Fatigue (ICD-10 - R53.83)09/13/2024Screening for colon cancer (ICD-10 - Z12.11) Plan Of Treatment Pending Test Test Name Order Date CMP (COMPLETE METABOLIC PANEL) CMP (COMPLETE METABOLIC PANEL) HEMOGLOBIN A1C (GLYCO) 07/14/2023 IRON, TOTAL 07/14/2023 IRON, TOTAL 11/04/2023 LIPID PANEL (CHOL/TRIG/HDL/LDL) 07/14/19 24 CBC WITH DIFF (EXP 04/2025) 07/14/2023 CBC WITH DIFF (EXP 04/2025) 11/04/2023 VITAMIN D, 25 LEVEL (TOTAL) 07/14/2023 [...] Panel 07/2024 CMP - Comprehensive Metabolic Panel 07/0 01/2024 CBC W/AUTO DIFF 12/20/2023 STOOL OCCULT BLOOD 07/14/2023 BNP 11/13/2022 BNP 02/17/2023 CBC AUTO DIFF 02/17/2023 CBC AUTO DIFF 11/13/2022 CBC AUTO DIFF 09/13/2024 GLYCOHEMOGLOBIN A1C 09/13/2024 LIPID PROFILE 02/17/2023 LIPID PROFILE 09/13/2024 PROF 14(COMP METB) 11/13/2022 PROF 14(COMP METB) 02/17/2023 THYROID PROFILE WITH TSH 02/17/2023 CT CHEST WO CON 05/03/2025 XR ANKLE RT MIN 3 VIEWS 11/04/2023 [...] End Date [place] [address] [place] [address] [id number] Duran Gomez - patient is the insuredFL[facility] H[facility] CENTERPO [address] [address] [place], [place] [id number] Velvet Wittelf - patient is the [id number] 2010 Medications Administered Medication Instructions Date of Administration Dosage Notes Dexamethasone, 4mg/mL mgKenalog-400/ ft02Cbciaqq-1557/ eo89Eqowvoy-02 fz99Smrhmsv-8181480 et24Efrxpxy-2721 mg80 Kenalog-400 mgKetorolac Fqpqzidufdqh61/02/202330 mgKetorolac Rzrvbmbykbzh42/07/202330 nj84Qnivxkqcz Uoylfdqpwpgn19/25/202330 jl57Ispnekiru Pvfrsdljnvao02/31/202430 lp15Ctwviwubx Jmzdvhfanbpm20/23/202430 vp89Zztwzdrdv Ribpqpealjkv83/07/202430 vw71Qveyaymed Srqfedxpwaiz66/08/202430 mgKetorolac Ftfhjoyfygsw29/06/202530 mgKetorolac Acldjpybltqs34/28/264439 mgKetorolac Formrjjimnte05/27/202530 mgKetorolac Dwrzfxrjjwxk38/20/202530 mg methylPREDNISolone Awhkcjd11 mgOrphenadrine Ciimkae28 mg30 Orphenadrine Jlwegjv68 fo77Dcopzayhsajr Wsznnjq61 mg30 Orphenadrine Votobms51 ft13Wrkawgbmzocy Wtsdctr11 mg30 Orphenadrine Eppuuwd28 ut44Rbmgfgopulxj Jrgiccp32 mg Orphenadrine Ylvhymd27 mgOrphenadrine Ikehvlf28 mg Orphenadrine Gumkvrs87 mgTriamcinolone 40 mg/ml mg Triamcinolone 40 mg/ml mgTriamcinolone 40 mg/ml mg Triamcinolone 40 mg/ml0 mg Medical (General) History Medical History History ICD Code CAD (coronary artery disease) I25.10 Seizure R56.9 Insomnia G47.00 Elevated cholesterol E78.00 Thyroid nodule E04.1 Hypertension I10 Palpitations R00.2 AF (paroxysmal atrial fibrillation) I48. 0 Moderate tricuspid regurgitation I07.1 Congestive heart failure I50.9 Diverticula of colon K57.30 Coronary heart disease I25.10 Low back pain 724.5 Cervical disc disease M50.90 left Femur fracture CpnrmkgibhxzZ25.0left breast lumpDegeneration of intervertebral disc of lumbar huyhioR52.36Abnormal xpwbdytJ97.97QneimohfkhvmzkxZ64.1Surgical History Surgery Date(Month/Year) ORIF Rt. ankle 12/2016 Appendectomy pacemaker Implantexp lapRt ankle Arthroscopy p2SPQCivoqzyhagytskaymInlawlza ExtractionCABGBack SurgeryHospitalization History Reason Date(Month/Year) pneumonia 2022 Pneumonia 07/2024
--- NOTE | 2025-05-18 12:51 | CA_ITS ---
Patient Name: ABDIRAHMAN GOMEZ MR#: [id number] : 1940 Exam Date: 05/18/2025 Ordering Doctor: DR SAMANTHA LAMB M.D. ECHOCARDIOGRAM REPORT PROCEDURE: CA ECHO DOPPLER COMPLETE INDICATIONS: Nonrheumatic tricuspid valve regurgitation COMPARISON: None. DESCRIPTION: COMPLETE ECHOCARDIOGRAM Real-time transthoracic echocardiography with 2D, M-mode, spectral and color flow Doppler performed. QUALITY: Technical quality was good. LEFT VENTRICLE: Normal chamber size. Normal left ventricular wall thickness. Global left ventricular systolic function is normal. Estimated left ventricular ejection fraction is 55%. LV EF: Normal left ventricular ejection fraction, (55%). DIASTOLIC: Not adequately assessed due to heart rhythm. ATRIAL SEPTUM: LEFT ATRIUM: Moderate dilatation. RIGHT ATRIUM: Moderate dilatation. RIGHT VENTRICLE: Normal chamber size. Normal right ventricular systolic function. Pacer wire present. TRICUSPID VALVE: Normal mobility and thickness. No stenosis with moderate to severe regurgitation. Mild pulmonary hypertension. The RVSP measures 43 mmHg. MITRAL VALVE: Normal mobility and thickness. No evidence of mitral valve stenosis. There is no mitral annular calcification. Mild mitral regurgitation. AORTIC VALVE: Normal trileaflet appearance. Mildly calcified aortic valve. Normal mobility. No aortic valve stenosis. Trivial aortic regurgitation. AORTIC ROOT: Normal diameter and appearance. The aortic root measures 2.8 cm. PULMONIC VALVE: Normal thickness and mobility. No stenosis. Trivial regurgitation. PERICARDIUM: No evidence of pericardial effusion. IVC: Collapses with inspiration. The IVC is normal in size measuring 2.0 cm PLEURA: CONCLUSION: 1. Normal left ventricular size and systolic function. Estimated LVEF is 55%. 2. Normal right ventricular size and systolic function. 3. Moderate biatrial dilatation. 4. Moderate to severe tricuspid regurgitation. 5. Mild mitral regurgitation. 6. Mildly elevated right-sided pressures. RVSP is 43 mmHg. Adult Echocardiography Procedure Report Left Ventricle LVEDD (3.7 - 5.6 cm): 3.97 cm LVESD (2.2 - 4.0 cm): 2.99 cm LVIVS thickness (0.6 - 1.2 cm): 0.87 cm LVPW thickness (0.5 - 1.0 cm): 0.84 cm e': 0.10 m/s E - e': 9.55 LVOT Max Gradient: 1.09 mm[Hg] LVOT Area (cm2): 0.52 m/s Peak Velocity (LVOT): 0.52 m/s Mean Velocity (LVOT): 0.37 m/s LVOT Diameter 1.92 cm Left Ventricular Ejection Fraction: 55 % Left Atrium LA Volume Index (2D A2C): 35.11 ml/m2 Left Atrium Systolic Dimension: 3.95 cm Mitral Valve MV E to A Ratio: 142.98 Mitral Valve A-Wave Peak Velocity: 0.01 m/s Mitral Valve E-Wave Peak Velocity: 0.98 m/s Right Ventricle RV Internal Diastolic Dimension: 3.92 cm Aorta AO Root Diam: 2.83 cm Ascending Ao Diam: 2.82 cm Aortic Valve AoV Area (Peak Luis): 1.44 cm2, 1.44 cm2 AoV Area (VTI): 1.54 cm2, 1.47 cm2 Peak Velocity(Antegrade Flow): 1.05 m/s, 1.05 m/s Peak Gradient(Antegrade Flow): 4.38 mm[Hg], 4.38 mm[Hg] Mean Velocity(Antegrade Flow): 0.70 m/s, 0.72 m/s Mean Gradient(Antegrade Flow): 2.27 mm[Hg], 2.29 mm[Hg] Velocity Time Integral: 22.03 cm, 20.20 cm Tricuspid Valve Peak Velocity (Regurgitant Flow): 3.16 m/s, 2.79 m/s, 2.60 m/s Pulmonic Valve Peak Velocity: 0.54 m/s Peak Gradient: 1.09 mm[Hg], 1.25 mm[Hg] Right Atrium Right Atrium Systolic Pressure: 55.01 ml, 48.29 ml, 61.72 ml Dictated by: Kirk Lopez M.D. on 05/18/2025 at 21:35 Approved by: Kirk Lopez M.D. on 05/18/2025 at 21:42
== END 2025-05-18 12:48 | disposition home or self-care (01) ==
LOC: CARD 12:47
PROVIDERS: PCP Family Medicine; Visit Provider Internal Medicine Interventional Cardiology
DX: I36.1 Nonrheumatic tricuspid (valve) insufficiency (principal); I65.23 Occlusion and stenosis of bilateral carotid arteries
CPT/HCPCS: 93306; 93880

== ENCOUNTER 2025-05-18 12:49 | Outpatient (OUT) | payer MEDICARE, OTHER, SELFPAY ==
--- OUTSIDE RECORDS SUMMARY | 2025-05-18 12:54 | XMS_ITS | CCD ---
Author Organization [facility] CliniSyaz Care Team Providers Care Two [address] Radio Technician Name Role Phone UNKNOWN, PHYSICIAN Referring Unavailable [...] Consulting Unavailable DoGa timmons Consulting Unavailab Maurilio Aliica Consulting Unavailable Annia, Chema Consulting Unavailable Herminia [...] VICENTE Referring Unavailable SARABJIT VICENTE Referring Unavailable SARABJIT VICENTE Referring Unavailable SARABJIT VICENTE Referring Unavailable SARABJIT VICENTE Referring Unavailable SAMANTHA LAMB Attending Unavailable Allergies Allergy ClassificationReported Allergen(s)Allergy TypeDate of OnsetReaction(s) Facility (1 source)Adhesive agentDrug allergy (disorder)21-12-1853Sdj [facility] Repository (3 sources)CiprofloxacinDrug Wqkhanl92-41-4420Wqj [facility] Repository (5 sources)Codeine; Translations: [CODEINE]Drug Mhzomna86-85-8437VynbqoqSds [facility] Repository (1 source)paper tape; Translations: [paper tape]Propensity to adverse reactions (disorder)11-38-7444Ahh [facility] Repository (1 source)DesonideDrug AllergyThe [facility] Repository (4 sources)Ciprofloxacin; Translations: [ciprofloxacin]Drug Xhvkkkm10-11-7417 [facility] ([facility])CodeineDrug Lmnfjyd43-97-5540IzajlybydDoctors Hospital Repository (1 source)Amitriptyline; Translations: [AMITRIPTYLINE]Drug Btquqwr45-46-8823 [facility] Repository (1 source)rosuvastatin; Translations: [ROSUVASTATIN]Drug Uugittp80-21-2662 [facility] Repository (1 source)ADHESIVE TAPE-SILICONES; Translations: [ADHESIVE TAPE-SILICONES] Propensity to adverse reactions to drug (disorder)74-27-7546VfvbxdbseqMain Campus Medical Center Repository Medications Current Medications MedicationDrug Class(es)DatesSig (Normalized)Sig (Original)acetaminophen 500 mg oral tablet (1 source)Start: 93-40-9388gdqv 500 mg by mouth every four hoursAcetaminophen Active 500 MG PO Q4H June 24, 2022 12:00amacetaminophen 325 mg / HYDROcodone bitartrate 5 mg oral tablet (3 sources)Opioid AgonistStart: 40-26-9910jumz 1 tablet by mouth twice daily Hydrocodone-Acetaminophen Active 1 TAB PO Twice daily 14 7 June 24, 2022 Start: 06-09-2022 End: 45-80-2782yubi 1 tablet by mouth every twelve hoursHydrocodone- Acetaminophen Discontinued 1 TAB PO Q12H June 09, 2022 12:00am June 24:18amamLODIPine 10 mg oral tablet (3 sources)Dihydropyridine Calcium Channel BlockerStart: 06-09-2022 End: 63-86-5012hnma 10 mg by mouth at bedtimeAmlodipine Active 10 MG PO Bedtime 30 30 June 24, 2022 12:00amapixaban 5 mg oral tablet (3 sources)Factor Xa InhibitorStart: 06-14-2022 End: 91-13-0657cooh 1 tablet by mouth twice dailyApixaban (Eliquis) 5 mg Tablet Active 5 MG PO Twice daily 60 June 24, 2022 12:00amatorvastatin 80 mg oral tablet (3 sources)HMG-CoA Reductase InhibitorStart: 06-12-2022 End: 43-04-8626eagp 80 mg by mouth at bedtimeAtorvastatin Active 80 MG PO Bedtime 30 June 24, 2022 12:00amcarvedilol 12.5 mg oral tablet (3 sources)alpha-Adrenergic Kirby, beta-Adrenergic BlockerStart: 06-09-2022 End: 51-68-9988eazk 12.5 mg by mouth twice dailyCarvedilol Active 12.5 MG PO Twice daily 60 June 24, 2022 12:00amcholecalciferol 0.125 mg oral tablet (3 sources)Vitamin DStart: 06-09-2022 End: 60-13-8983kodf 1 tablet by mouth once dailyCholecalciferol (Vitamin D3) (Vitamin D3) 125 mcg (5,000 unit) Tablet Active 125 MCG PO Daily June 24, 2022 12:00amfurosemide 20 mg oral tablet (3 sources)Loop DiureticStart: 06-09-2022 End: 66-04-0080hnvp 20 mg by mouth once dailyFurosemide Active 20 MG PO Daily 30 June 24, 2022 12:00am24 hr isosorbide mononitrate 60 mg extended release oral tablet (3 sources)Nitrate VasodilatorStart: 06-09-2022 End: 63-83-7915yexd 60 mg by mouth once dailyIsosorbide Mononitrate Active 60 MG PO Daily 30 June 24, 2022 12:00ammelatonin 5 mg oral tablet (3 sources)Start: 06-14-2022 End: 62-94-9367ctdj 5 mg by mouth once daily at bedtimeMelatonin Active 5 MG PO Daily at bedtime 30 June 24, 2022 12:00ammetFORMIN hydrochloride 500 mg oral tablet (3 sources)BiguanideStart: 06-16-2022 End: 81-66-0297cdgt 500 mg by mouth once dailyMetformin Active 500 MG PO Daily 30 June 24, 2022 12:00ammontelukast 10 mg oral tablet (3 sources)Leukotriene Receptor AntagonistStart: 06-09-2022 End: 37-45-0578mnun 10 mg by mouth at bedtimeMontelukast Active 10 MG PO Bedtime 30 June 24, 2022 12:00amomeprazole 20 mg delayed release oral capsule (5 sources)Proton Pump InhibitorStart: 27-38-1368vsft 40 mg by mouth once daily Omeprazole Active 40 MG PO Daily 60 June 24, 2022 12:00amStart: 06-12-2022 End: 59-23-9918kops 40 mg by mouth once dailyOmeprazole Discontinued 40 MG PO Daily 0 June 12, 2022 9:27am June 24, 2022 9:18amStart: 06-09-2022 End: 54-35-4763zmxr 40 mg by mouth twice dailyOmeprazole Discontinued 40 MG PO Twice daily June 09, 2022 12:00am June 16, 2022 10:52ampolyethylene glycol 3350 35598 mg powder for oral solution (3 sources)Osmotic LaxativeStart: 06-14-2022 End: 75-02-2246Bmqbrrkoccba Glycol 3350 (Miralax) 17 gram Powder In Packet Active 17 GM PO Daily June 24, 2022 12:00ammicroencapsulated potassium chloride 20 meq extended release oral tablet (5 sources)Start: 06-16-2022 End: 23-79-7845Hrtpdrapd Chloride (Klor-Con M20) 20 mEq Tablet,Er Particles/Crystals Active 20 MEQ PO Daily 30 June 24, 2022 12:00amStart: 06-09-2022 End: 46-35-2237Xxdisfwwb Chloride (Klor-Con M20) 20 mEq tablet,ER particles/crystals Discontinued 40 MEQ PO Daily June 09, 2022 12:00am June 16, 2022 10:52ampramipexole dihydrochloride 0.5 mg oral tablet (3 sources)Nonergot Dopamine AgonistStart: 06-09-2022 End: 26-54-1013mvto 0.5 mg by mouth at bedtimePramipexole Active 0.5 MG PO Bedtime 30 June 24, 2022 12:00ampsyllium 3400 mg powder for oral suspension (3 sources)Start: 06-14-2022 End: 29-59-1639Fswfijqa Husk (Aspartame) (Metamucil Fiber Singles) 3.4 gram Powder In Packet Active 1 PACKET PO Twice daily 30 June 24, 2022 12:00am Sennosides (Senna Lax) 8.6 mg Tablet (3 sources)Start: 68-73-7477nwcv 2 tablets by mouth twice dailySennosides (Senna Lax) 8.6 mg Tablet Active 2 TAB PO Twice daily 120 June 24, 2022 12:00am Start: 06-14-2022 End: 67-68-3216ljzp 2 tablets by mouth twice dailySennosides (Senna Lax) 8.6 mg Tablet Discontinued 2 TAB PO Twice daily 0 June 14, 2022 12:00am June 24, 2022 9:18amStart: 80-29-1218hpec 2 tablets by mouth twice dailySennosides (Senna Lax) 8.6 mg Tablet Active 2 TAB PO Twice daily 0 June 14, 2022 12:00amtiZANidine 4 mg oral tablet (3 sources)Central alpha-2 Adrenergic AgonistStart: 06-09-2022 End: 14-81-2722quzw 4 mg by mouth twice dailyTizanidine Active 4 MG PO Twice daily 20 June 24, 2022 12:00amvalsartan 40 mg oral tablet (3 sources)Angiotensin 2 Receptor BlockerStart: 67-00-8908qvno 40 mg by mouth once dailyValsartan Active 40 MG PO Daily June 24, 2022 12:00amStart: 06-14-2022 End: 58-70-5381sxva 40 mg by mouth twice dailyValsartan Discontinued 40 MG PO Twice daily 0 June 14, 2022 12:00am June 24, 2022 9:18am Completed/Discontinued Medications MedicationDrug Class(es)DatesSig (Normalized)Sig (Original)ascorbic acid 500 mg oral tablet (2 sources)Vitamin CStart: 06-09-2022 End: 13-40-4737uirk 1 tablet by mouth once dailyAscorbic Acid (Vitamin C) (Vitamin C) 500 mg tablet Discontinued 500 MG PO Daily June 09, 2022 12:00am June 16, 2022 10:52ambiotin 10 mg oral capsule (2 sources)Start: 06-09-2022 End: 52-12-7030dhcc 36007 ug by mouth once dailyBiotin Discontinued 83470 MCG PO Daily June 09, 2022 12:00am June 16, 2022 10:52amMagnesium Chloride (2 sources)Start: 06-09-2022 End: 47-33-7443nqhj 64 mg by mouth once dailyMagnesium Chloride Discontinued 64 MG PO Daily June 09, 2022 12:00am June 16, 2022 10:52amOmega-3 Fatty Acids-Vitamin E (Fish Oil) 1,000 mg Capsule (2 sources)Start: 06-09-2022 End: 19-87-4565yurv 1 capsule by mouth once dailyOmega-3 Fatty Acids-Vitamin E (Fish Oil) 1,000 mg Capsule Discontinued 1 CAP PO Daily June 09, 2022 12:00am June 16, 2022 10:52amrosuvastatin calcium 5 mg oral tablet (2 sources)HMG-CoA Reductase InhibitorStart: 06-09-2022 End: 36-26-3033bnba 5 mg by mouth at bedtimeRosuvastatin Discontinued 5 MG PO Bedtime June 09, 2022 12:00am June 16, 2022 10:52am Problems Active Problems Problem ClassificationProblemDateDocumented DateEpisodic/ChronicAcute cerebrovascular disease (7 sources)Embolic stroke; Translations: [Cerebral infarction, unspecified] Onset: 189503-72-5501WzzaghuXfxoapakfvwhuc/social admission (3 sources)Other reduced mobility; Translations: [Impaired mobility and activities of daily living]Onset: 947550-63-8059TbjonogmGfjobma disorders (3 sources)Anxiety; Translations: [Anxiety disorder, unspecified]Onset: 241037-12-1567EmhklidKssmwso dysrhythmias (16 sources)Paroxysmal atrial fibrillation; Translations: [Atrial fibrillation] Onset: 58-24-3217IarorayXeizdhsgryqnv of surgical procedures or medical care (1 source)Postprocedural hypothyroidism; 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 HYPOTHYROIDISM]Onset: 78-78-3669VzfuirvFbdbpqoiuu disorders (10 sources)Cardiac pacemaker in situ; Translations: [Presence of cardiac pacemaker]Onset: 759867-72-2689VtniuchMxmxmytwsp heart failure; nonhypertensive (1 source)Unspecified diastolic (congestive) heart failure; Translations: [UNSPECIFIED DIASTOLIC HEART FAILURE]Onset: 39-19-4096JdawuzeNtyvakby atherosclerosis and other heart disease (3 sources)Atherosclerotic heart disease of [place] coronary artery without angina pectoris; Translations: [ASHD [place] W/O ANGINA PECTORIS]Onset: 13-91-1201UqucstwUjxgnaec atherosclerosis and other heart disease (1 source)Presence of aortocoronary bypass graft; Translations: [PRESENCE AORTOCORONARY BYPASS GRAFT]Onset: 89-18-9297FavbfkhoFfznaeroh of lipid metabolism (2 sources)Pure hypercholesterolemia, unspecified; Translations: [Hyperlipidemia, unspecified]Onset: 56-79-2942PtmocbiVzkrfwgnrsiklb and diverticulitis (5 sources)Diverticular disease; Translations: [Diverticulosis of intestine, part unspecified, without perforation or abscess without bleeding]Onset: 681494-74-3115WrlocvwOuqpkufqwh disorders (1 source)Gastro-esophageal reflux disease without esophagitis; Translations: [GERD WITHOUT ESOPHAGITIS]Onset: 58-76-4263JtxhnzjLhjwwarmp hypertension (7 sources)Essential (primary) hypertension; Translations: [Hypertensive disorder]Onset: 783960-46-4342ZssjmttVouxkjbrljgnacgh hemorrhage (4 sources)Hemorrhage of anus and rectum; Translations: [Gastrointestinal hemorrhage, unspecified]Onset: 93-42-9499HvdcpzufCfhxfksqmvjjn symptoms and ill- defined conditions (1 source)Personal history of urinary (tract) infections; Translations: [PERS HX URINARY TRACT INFECTIONS]Onset: 44-11-9130FixizoiaIustk valve disorders (1 source)Rheumatic tricuspid insufficiency; Translations: [RHEUMATIC TRICUSPID INSUFFICIENCY]Onset: 68-30-6918RqsdzaiEvxezsqgyxdg with complications and secondary hypertension (1 source)Hypertensive heart disease with heart failure; Translations: [HTN HEART DISEASE W/HEART FAIL]Onset: 74-96-2951YtgfrluTtvdkeqsv or stenosis of precerebral arteries (3 sources)Carotid artery stenosis; Translations: [Occlusion and stenosis of unspecified carotid artery]Onset: 965173-23-4946ElhbclcUebvhjvvqmatto (1 source)Unspecified osteoarthritis, unspecified site; Translations: [UNSPECIFIED OSTEOARTHRITIS UNS SITE]Onset: 80-72-1698KtrfdzhYvvwj aftercare (1 source)Other terminal superintendent (current) drug therapy; Translations: [OTH INTEGRATION SOFTWARE ENGINEER CURRENT DRUG THERAPY]Onset: 60-43-9129ExiojklrBwvts aftercare (1 source)halfway (current) use of aspirin; Translations: [INTEGRATION SOFTWARE ENGINEER CURRENT USE OF ASPIRIN]Onset: 14-58-3716EgemkuqhWfjzw connective tissue disease (2 sources)Muscle weakness of upper limb; Translations: [Other symptoms and signs involving the musculoskeletal system]29-90-0507EmkrtqfsAvoeb connective tissue disease (3 sources)Other symptoms and signs involving the musculoskeletal system; Translations: [Other musculoskeletalsymptoms referable to limbs]Onset: 473967-32-9163WzepbsqgGtbrr gastrointestinal disorders (2 sources)Constipation; Translations: [Constipation, unspecified]06-13-2022 EpisodicOther gastrointestinal disorders (3 sources)Constipation, unspecified; Translations: [Constipation, unspecified] Onset: 636356-55-4357AcnamfazUtmnn hematologic conditions (6 sources)Other specified abnormalities of plasma proteins; Translations: [Other abnormal blood chemistry]Onset: 001832-38-9993TxsznohmCgxbc hematologic conditions (2 sources)Raised cardiac enzyme or marker; Translations: [Other specified abnormalities of plasma proteins]07-77-6806RplllejpDyboc nervous system disorders (1 source)Chronic pain; Translations: [Other chronic pain]44-55-9379CwoazzpQpzjr nervous system disorders (2 sources)Other chronic pain; Translations: [Other chronic pain]Onset: 287219-32-3639ZqskcojRfkbm screening for suspected conditions (not mental disorders or infectious disease) (10 sources)Abnormal electrocardiogram [ECG] [EKG]; Translations: [Encounter for screening mammogram for malignant neoplasm of breast]Onset: 86-43-4613Fbczbtbv Residual codes; unclassified (1 source)Acquired absence of both cervix and uterus; Translations: [ACQUIRED ABSENCE BOTH CERVIX AND UTERUS]Onset: 12-21-5279UrglfsewEsltmdtx codes; unclassified (1 source)Other specified health status; Translations: [Other specified health status]Onset: 39-02-0564JodgvvteBcgggftnkuy; intervertebral disc disorders; other back problems (2 sources)Chronic back pain ; Translations: [Dorsalgia, unspecified]Onset: 936834-29-3169XogrzahuIqdnlxc disorders (1 source)Nontoxic single thyroid nodule; Translations: [NONTOXIC SINGLE THYROID NODULE]Onset: 52-10-6206JasqbvuMuqggixhhfrp (1 source)CONTACT W/AND (SUSP) EXPOS COVID-19; Translations: [CONTACT W/AND (SUSP) EXPOS COVID-19]Onset: 06-16-2022 Past or Other Problems Problem ClassificationProblemDateDocumented DateEpisodic/ChronicAcute bronchitis (4 sources)Acute bronchitis, unspecified; Translations: [ACUTE BRONCHITIS UNSPECIFIED]Onset: 59-95-2439JkqmnnjyMtqbeewty infection; unspecified site (1 source)Methicillin resistant Staphylococcus aureus infection as the cause of diseases classified elsewhere; Translations: [METHICILLIN RESIST INF DX ELSEWHERE]Onset: 48-81-3473NqxrawziAzcflhwkhb and other anemia (1 source)Anemia, unspecified; Translations: [ANEMIA UNSPECIFIED]Onset: 03-02-8010FttphhtbNosxpvfq mellitus without complication (1 source)Other abnormal glucose; Translations: [OTHER ABNORMAL GLUCOSE]Onset: 66-25-0503WuocryzwAreeorwh codes; unclassified (1 source)Insomnia, unspecified; Translations: [INSOMNIA UNSPECIFIED]Onset: 72-48-8702Nyirmowy Results Test NameValueInterpretationReference RangeFacilityOrders Onlyon 02-06-2025 Orders [id number] Abdirahman Gomez 1940 F Date Provider Department Center 02/06/2025 SARABJIT LACY [facility] Family History Problem Relation Age of Onset Aneurysm Mother Alcohol abuse Father Family Status - Relation Status Age at Mother FatherNormalUniversity of Methodist Specialty And Transplant HospitalOrders Onlyon 25-38-4731Eamdlm [id number] Abdirahman Gomez 1940 F Date Provider Department Center 11/07/2024 241-SARABJIT VICENTE C CARD [facility] Family History Problem Relation Age of Onset Aneurysm Mother Alcohol abuse Father Family Status - Relation Status Age at Mother FatherNormalUniversAvita Health System Ontario HospitalOffice Visiton 52-39-6169Ivdcfs- up [id number] Abdirahman Gomez 1940 F Date Provider Department Center 04/17/2024 271-SAMANTHA LAMB CARD [facility] Family History Problem Relation Age of Onset Aneurysm Mother Alcohol abuse Father Family Status - Relation Status Age at Mother Father Level of Service:59468 FL OFFICE/OUTPATIENT ESTABLISHED LOW MDM 20 [facility] CenterBasic Metabolic Panelon 70-33-4942Kptlc gap [Moles/Vol]16.1 mmol/LHigh6.0-15.0Doctors HospitalComment on above:Performed By: #### CBC, BMP #### [facility] [address] [place] [address] USACalcium [Mass/Vol]9.4 mg/dLNormal8.2-10.2FMain Campus Medical CenterComment on above:Performed By: #### CBC, BMP #### [facility] [address] [place] [address] USAChloride [Moles/Vol]102 mmol/ROgnwxl06-497YegpvsfruDoctors HospitalComment on above:Performed By: #### CBC, BMP #### [facility] [address] [place] [address] USACO2 [Moles/Vol]20.7 mmol/LLow22.0-30.0Doctors HospitalComment on above:Performed By: #### CBC, BMP #### [facility] [address] [place] [address] USACreatinine [Mass/Vol]0.84 mg/dLNormal0.44-1.03Doctors HospitalComment on above:Performed By: #### CBC, BMP #### [facility] [address] [place] [address] USACreatinine Clr Calc Hejjaaxk64.21NormalFirelands Regional Medical CenterComment on above:Result Comment: PERFORMED BY: [place] [address] PATHOLOGIST CHIEF OPERATOR SYNTHESIS PILAR VILLARREAL M.D.Performed By: #### CBC, BMP #### [place] [address] USAEstimated GFR ( Rose> 60Paulding County HospitalComment on above:Result Comment: GFR estimated reference range: According to KDOQI guidelines, <60 ml/min/1.73m2 is sufficient to diagnose a patient with chronic kidney disease.Performed By: #### CBC, BMP #### [place] [address] USAEstimated GFR (Non- Am> 60Paul[facility] County HospitalComment on above:Performed By: #### CBC, BMP #### [place] [address] USAGlucose [Mass/Vol]104 mg/bEDbzz48-150NdltxfjncDoctors HospitalComment on above:Result Comment: Random Glucose Reference Range is dependent on time and content of last meal. Glucose of more than 200 mg/dL in a nonstressed, ambulatory subject supports the diagnosis of Diabetes Mellitus. ADA recommended reference rangePerformed By: #### CBC, BMP #### [place] [address] USAPotassium [Moles/Vol]3.8 mmol/LNormal3.5-5.1FMain Campus Medical CenterComment on above:Performed By: #### CBC, BMP #### [place] [address] USASodium [Moles/Vol]135 mmol/OXpt331-350ZdrezpsxjDoctors HospitalComment on above:Performed By: #### CBC, BMP #### [place] [address] USAUrea nitrogen [Mass/Vol]10 mg/dLNormal9-23Doctors HospitalComment on above:Performed By: #### CBC, BMP #### [place] [address] USABasophils Auto (Bld) [#/Vol]Ordered By: Stiven Zaman on 40-36-5046Fzxjlfvzt (Bld) [#/Vol]0.1 10*3/uL0.0-0.2FMain Campus Medical CenterBasophils/100 WBC Auto (Bld)Ordered By: Stiven Zaman on 06-23-2022 Basophils/100 WBC (Bld)0.8 %.Doctors HospitalComplete Blood Count Auto Diffon 84-80-8625Sgoeifnkm (Bld) [#/Vol]0.1 10*3/uLNormal0.0-0.2 Doctors HospitalComment on above:Result Comment: PERFORMED BY: [place] [address] PATHOLOGIST CHIEF OPERATOR SYNTHESIS PILAR VILLARREAL M.D.Performed By: #### CBC, BMP #### [place] [address] USABasophils/100 WBC (Bld)0.8 %Normal.Doctors HospitalComment on above:Performed By: #### CBC, BMP #### [place] [address] USAEosinophils (Bld) [#/Vol]0.3 10*3/uLNormal0.0-0.45 Doctors HospitalComment on above:Performed By: #### CBC, BMP #### [place] [address] USAEosinophils/100 WBC (Bld)3.2 %Normal.Doctors HospitalComment on above:Performed By: #### CBC, BMP #### [place] [address] USAErythrocyte distribution width (RBC) [Ratio]13.3 %Normal 11.9-15.3FMain Campus Medical CenterComment on above:Performed By: #### CBC, BMP #### [place] [address] USAHematocrit (Bld) [Volume fraction]38.3 %Dnklwo06.0-46.4 Doctors HospitalComment on above:Performed By: #### CBC, BMP #### [place] [address] USAHemoglobin (Bld) [Mass/Vol]12.8 g/hPHoojqc98.8-15.4 Doctors HospitalComment on above:Performed By: #### CBC, BMP #### [place] [address] USALymphocytes (Bld) [#/Vol]2.6 10*3/uLNormal1.00-4.8 Doctors HospitalComment on above:Performed By: #### CBC, BMP #### [place] [address] USALymphocytes/100 WBC (Bld)31.9 %Normal.Doctors HospitalComment on above:Performed By: #### CBC, BMP #### [place] [address] USAMCH (RBC) [Entitic mass]34.1 wjIfiiug25.7-34.3FMain Campus Medical CenterComment on above:Performed By: #### CBC, BMP #### [place] [address] USAMCV (RBC) [Entitic vol]102.2 fXHoqa01-581OtqaeawpaDoctors HospitalComment on above:Performed By: #### CBC, BMP #### [place] [address] USAMean Corpuscular HGB Conc33.4 g/oHCopdwr41.0-35.0Doctors HospitalComment on above:Performed By: #### CBC, BMP #### [place] [address] USAMonocytes (Bld) [#/Vol]0.7 10*3/uLNormal0.0-0.8Doctors HospitalComment on above:Performed By: #### CBC, BMP #### [facility] [address] [place] [address] USAMonocytes/100 WBC (Bld)8.4 %Normal.Doctors HospitalComment on above:Performed By: #### CBC, BMP #### [facility] [address] [place] [address] USANeutrophils (Bld) [#/Vol]4.5 10*3/uLNormal1.8-7.7FMain Campus Medical CenterComment on above:Performed By: #### CBC, BMP #### [facility] [address] [place] [address] USANeutrophils/100 WBC (Bld)55.7 %Normal.Doctors HospitalComment on above:Performed By: #### CBC, BMP #### [facility] [address] [place] [address] USANRBC%0.1 /100{WBC}Normal0-0.5FMain Campus Medical CenterComment on above:Performed By: #### CBC, BMP #### [facility] [address] [place] [address] USAPlatelet mean volume (Bld) [Entitic vol]8.0 fLNormal 6.3-10.7FMain Campus Medical CenterCombeaumont hospital on above:Performed By: #### CBC, BMP #### [facility] [address] [place] [address] USAPlatelets (Bld) [#/Vol]272 10*3/xCRjnkbl675-416XpdwhjvfaDoctors HospitalCombeaumont hospital on above:Performed By: #### CBC, BMP #### [facility] [address] [place] [address] USARBC (Bld) [#/Vol]3.75 10*6/uLNormal3.60-5.00Doctors HospitalCombeaumont hospital on above:Performed By: #### CBC, BMP #### [facility] [address] [place] [address] USAWBC (Bld) [#/Vol]8.1 10*3/uLNormal3.8-11.6FMain Campus Medical CenterComment on above:Performed By: #### CBC, BMP #### [facility] [address] [place] [address] USACreatinine and Glomerular filtration rate.predicted panel (S/P/Bld)Ordered By: Stiven Zaman on 54-86-0694Bwwrfrzgox [Mass/Vol]0.84 mg/dL 0.44-1.03Doctors HospitalEosinophils Auto (Bld) [#/Vol]Ordered By: Stiven Zaman on 71-15-9162Yeccgosawfa (Bld) [#/Vol]0.3 10*3/uL0.0-0.45 Doctors HospitalEosinophils/100 WBC Auto (Bld)Ordered By: Stiven Zaman on 99-24-5116Ssapjhnmlxa/100 WBC (Bld)3.2 %.Doctors HospitalErythrocyte distribution width Auto (RBC) [Ratio]Ordered By: Stiven Zaman on 30-23-9333Pmvplzixlow distribution width (RBC) [Ratio]13.3 % 11.9-15.3FMain Campus Medical CenterEstimated glomerular filtration rate (GFR) non- AmericanOrdered By: Stiven Zaman on 82-79-6055FHX/1.73 sq M.predicted among non-blacks MDRD (S/P/Bld) [Vol rate/Area]> 60 mL/MinDoctors HospitalHematocrit Auto (Bld) [Volume fraction]Ordered By: Stiven Zaman on 30-50-7233Oishhmkmad (Bld) [Volume fraction]38.3 %34.0-46.4FMain Campus Medical CenterHemoglobin [Mass/volume] in BloodOrdered By: Stiven Zaman on 30-09-9257Zxamnxogzv (Bld) [Mass/Vol]12.8 g/dL11.8-15.4FMain Campus Medical CenterLeukocytes [#/volume] corrected for nucleated erythrocytes in Blood by Automated counOrdered By: Stiven Zaman on 04-16-0840RFA corrected for nucl RBC Auto (Bld) [#/Vol]8.1 10*3/uL3.8-11.6FMain Campus Medical Center Lymphocytes Auto (Bld) [#/Vol]Ordered By: Stiven Zaman on 75-36-8786Fzhxqkrwzrq (Bld) [#/Vol]2.6 10*3/uL1.00-4.8Doctors HospitalLymphocytes/100 WBC Auto (Bld)Ordered By: Stiven Zaman on 87-82-9757Pgntttdwdah/100 WBC (Bld) 31.9 %.[facility] HospitalH Auto (RBC) [Entitic mass]Ordered By: Stiven Zaman on 16-20-9268FHF (RBC) [Entitic mass]34.1 pg24.7-34.3FMain Campus Medical CenterMCHC Auto (RBC) [Mass/Vol]Ordered By: Stiven Zaman on 96-73-9881NGQU (RBC) [Mass/Vol]33.4 g/dL32.0-35.0Doctors HospitalMCV Auto (RBC) [Entitic vol]Ordered By: Stiven Zaman on 17-84-0485TQC (RBC) [Entitic vol]102.2 bY43-058SzvhazqaqDoctors HospitalMonocytes Auto (Bld) [#/Vol]Ordered By: Stiven Zaman on 43-70-7773Yrlkwxmnz (Bld) [#/Vol]0.7 10*3/uL0.0-0.8Doctors HospitalMonocytes/100 WBC Auto (Bld) Ordered By: Stiven Zaman on 84-90-9011Nzeaqodwq/100 WBC (Bld)8.4 %.Doctors HospitalNeutrophils Auto (Bld) [#/Vol]Ordered By: Stiven Zaman on 84-37-2600Ijazbundpkj (Bld) [#/Vol]4.5 10*3/uL1.8-7.7FMain Campus Medical CenterNeutrophils/100 WBC Auto (Bld)Ordered By: Stiven Zaman on 06-23-2022 Neutrophils/100 WBC (Bld)55.7 %.Doctors HospitalNo Panel InformationOrdered By: Stiven Zaman on 43-24-2081Swtnckqzj GFR ()> 60 mL/MinDoctors HospitalComment on above:GFR estimated reference range: According to KDOQI guidelines, <60 ml/min/1.73m2 is sufficient todiagnose a patient with chronic kidney disease.Pharmacy Creatinine Clearance (Chem47.21Doctors HospitalNucleated erythrocytes [Presence] in Blood by Automated countOrdered By: Stiven Zaman on 06-23-2022 Nucleated RBC Auto Ql (Bld)0.1 /100{WBC}0-0.5FMain Campus Medical Center Platelet mean volume Auto (Bld) [Entitic vol]Ordered By: Stiven Zaman on 13-07-4821Uinrovhd mean volume (Bld) [Entitic vol]8.0 fL6.3-10.7FMain Campus Medical CenterPlatelets Auto (Bld) [#/Vol]Ordered By: Stiven Zaman on 89-42-6896Uiexnxosc (Bld) [#/Vol]272 10*3/fH197-394XojzirruvDoctors HospitalRBC Auto (Bld) [#/Vol]Ordered By: Stiven Zaman on 20-57-9401IJY (Bld) [#/Vol]3.75 10*6/uL3.60-5.00[facility] Medical Centererum or plasma anion gap determinationOrdered By: Stiven Zaman on 06-02-7737Rihbp gap [Moles/Vol]16.1 mmol/L6.0-15.0[facility] Centererum or plasma calcium measurement (mass/volume)Ordered By: Stiven Zaman on 76-31-1019Cawakeg [Mass/Vol]9.4 mg/dL8.2-10.2FTriHealth Bethesda North Hospitalerum or plasma chloride measurement (moles/volume)Ordered By: Stiven Zaman on 06-23-2022 Chloride [Moles/Vol]102 mmol/R60-521TchnmnweyUniversity Hospitals Geneva Medical Centererum or plasma glucose measurement (mass/volume)Ordered By: Stiven Zaman on 06-23-2022 Glucose [Mass/Vol]104 mg/fI84-916GagtnmfnsDoctors HospitalComment on above:ADA recommended reference rangeRandom Glucose Reference Range is dependent on time and content of last meal. Glucose of more than 200 mg/dL in a nonstressed, ambulatory subject supports the diagnosisof Diabetes Mellitus.Serum or plasma potassium measurement (moles/volume)Ordered By: Stiven Zaman on 44-50-1627Fchybbnqf [Moles/Vol]3.8 mmol/L3.5-5.1FTriHealth Bethesda North Hospitalerum or plasma sodium measurement (moles/volume)Ordered By: Stiven Zaman on 52-40-9626Mppbqv [Moles/Vol]135 mmol/Q355-933LfbejwhmmUniversity Hospitals Geneva Medical Centererum or plasma total carbon dioxide measurement (moles/volume)Ordered By: Stiven Zaman on 66-43-1245GX5 [Moles/Vol]20.7 mmol/L22.0-30.0[facility] Centererum or plasma urea nitrogen measurement (mass/volume)Ordered By: Stiven Zaman on 23-45-9881Cjfj nitrogen [Mass/Vol]10 mg/dL9-23Doctors HospitalWBC Auto (Bld) [#/Vol]Ordered By: Stiven Zaman on 40-33-3554UXF (Bld) [#/Vol]8.1 10*3/uL3.8-11.6FMain Campus Medical Center Glucose Glucometer (BldC) [Mass/Vol]Ordered By: Stiven Zaman on 06-21-2022 Glucose [Mass/Vol]108 mg/dLDoctors HospitalComment on above: Random Glucose Reference Range is dependent on time and content of last meal. Glucose of more than 200 mg/dL in a nonstressed, ambulatory subject supports the diagnosis of Diabetes Mellitus.Glucose Poct Glucometerson 87-34-0288Wtywnwv [Mass/Vol]108 mg/dLNoMain Campus Medical CenterComment on above: Result Comment: Random Glucose Reference Range is dependent on time and content of last meal. Glucose of more than 200 mg/dL in a nonstressed, ambulatory subject supports the diagnosis of Diabetes Mellitus. PERFORMED BY: [address] [place] [address] PATHOLOGIST CHIEF OPERATOR SYNTHESIS PILAR VILLARREAL M.D.Performed By: #### GLULS #### Point of Care testing ,Glucose Poct Glucometerson 27-76-5999Wzlszid [Mass/Vol]93 mg/dLNoMain Campus Medical CenterComment on above:Result Comment: Random Glucose Reference Range is dependent on time and content of last meal. Glucose of more than 200 mg/dL in a nonstressed, ambulatory subject supports the diagnosis of Diabetes Mellitus. PERFORMED BY: [place] [address] PATHOLOGIST CHIEF OPERATOR SYNTHESIS PILAR VILLARREAL M.D.Performed By: #### LIPID, A1C WT eA #### [place] [address] USAGlucose [Mass/Vol]107 mg/dLPaulding County HospitalComment on above:Result Comment: Random Glucose Reference Range is dependent on time and content of last meal. Glucose of more than 200 mg/dL in a nonstressed, ambulatory subject supports the diagnosis of Diabetes Mellitus. PERFORMED BY: [place] [address] PATHOLOGIST CHIEF OPERATOR SYNTHESIS PILAR VILLARREAL M.D.Performed By: #### GLULS #### Point of Care testing ,Glucose Poct Glucometerson 53-85-7582Vwsruzv6DubhrtRcsnxpeqe18 Wilson StreetComment on above:Result Comment: Glu2: WILL NOTIFY DR/VALEerformed By: #### GLULS #### Point of Care testing ,Gugfpuj3Pyjpxlk MeterPaulding County HospitalComment on above: Result Comment: PERFORMED BY: [place] [address] PATHOLOGIST CHIEF OPERATOR SYNTHESIS PILAR VILLARREAL M.D.Performed By: #### GLULS #### Point of Care testing ,Glucose [Mass/Vol]118 mg/dLPaulding County HospitalComment on above:Result Comment: Random Glucose Reference Range is dependent on time and content of last meal. Glucose of more than 200 mg/dL in a nonstressed, ambulatory subject supports the diagnosis of Diabetes Mellitus.Performed By: #### GLULS #### Point of Care testing ,Glucose [Mass/Vol]97 mg/dLPaulding County HospitalComment on above:Result Comment: Random Glucose Reference Range is dependent on time and content of last meal. Glucose of more than 200 mg/dL in a nonstressed, ambulatory subject supports the diagnosis of Diabetes Mellitus. PERFORMED BY: [place] [id number] PATHOLOGIST CHIEF OPERATOR SYNTHESIS PILAR VILLARREAL M.D.Performed By: #### GLULS #### Point of Care testing ,No Panel InformationOrdered By: Stiven Zaman on 12-52-8580Zwmhikg Glucose #2 CommentCleaned meterDoctors HospitalBedside Glucose CommentSee commentDoctors HospitalComment on above:Glu2: WILL NOTIFY DR/RN XR hip LT min 2V(w/wo pelvis)*on 12-56-4984XZ hip LT min 2V(w/wo pelvis)* [place] [address] XRay Report Signed Patient: Abdirahman Gomez MR#: [id number] : 1940 Acct:[id number] Age/Sex: 81 / F ADM Date: 06/16/22 Loc: Room: [address] [place] [address] Type: ADM IN Attending Dr: Stiven Zaman [...] Beasley Jr., D.OHuma06/19/2022 3:01 PM Dictation Location: [place] [address] Transcribed By: [facility] 06/19/22 1501 Dictated By: Stiven Beasley Jr, DO 06/19/22 1500 Signed By: 06/19/22 1501NormalDoctors HospitalGlucose Poct Glucometerson 71-41-8523Aqyeqba0Efp0: Cleaned [facility] Comment on above:Result Comment: PERFORMED BY: [place] [address] PATHOLOGIST CHIEF OPERATOR SYNTHESIS PILAR VILLARREAL M.D.Performed By: #### GLULS #### Point of Care testing ,Glucose [Mass/Vol]105 mg/dLPaulding County HospitalComment on above:Result Comment: Random Glucose Reference Range is dependent on time and content of last meal. Glucose of more than 200 mg/dL in a nonstressed, ambulatory subject supports the diagnosis of Diabetes Mellitus.Performed By: #### GLULS #### Point of Care testing ,Glucose [Mass/Vol]107 mg/dLPaulding County HospitalComment on above:Result Comment: Random Glucose Reference Range is dependent on time and content of last meal. Glucose of more than 200 mg/dL in a nonstressed, ambulatory subject supports the diagnosis of Diabetes Mellitus. PERFORMED BY: [place] [address] PATHOLOGIST CHIEF OPERATOR SYNTHESIS PILAR VILLARREAL M.D.Performed By: #### CBC, BMP #### [place] [address] USAUS carotid doppler BIon 72-00-3723SO carotid doppler BI [facility] [place] [address] [place] [address] Ultrasound Report Signed Patient: Abdirahman Gomez MR#: [id number] : 1940 Acct:[id number] Age/Sex: 81 / F ADM Date: 06/09/22 Loc: Room: [address] [place] [address] Type: DIS IN Attending Dr: Frida De [...] Bebo Howell MD06/18/2022 4:50 PM Dictation Location: [facility]- Tech: Margaret Rust Transcribed By: CHANDRAKANT 06/18/221649 Dictated By: Bebo Howell MD 06/18/22 164 Signed By: 06/18/221649Paulding County HospitalAlbumin [Mass/volume] in Serum or PlasmaOrdered By: Stiven Zaman on 02-28-6212Tkptjrt [Mass/Vol]3.3 g/dL 3.2-5.5FMain Campus Medical CenterComplete Blood Count Auto Diffon 61-94-7628Lytxfvojy (Bld) [#/Vol]0.2 10*3/uLNormal0.0-0.2FMain Campus Medical CenterComment on above:Result Comment: PERFORMED BY: [facility] [place] [address] PATHOLOGIST CHIEF OPERATOR SYNTHESIS PILAR VILLARREAL M.D.Performed By: #### GLULS #### Point of Care testing ,Basophils/100 WBC (Bld)1.4 %Normal.Doctors HospitalComment on above:Performed By: #### GLULS #### Point of Care testing ,Eosinophils (Bld) [#/Vol]0.3 10*3/uLNormal0.0-0.45Doctors HospitalComment on above:Performed By: #### GLULS #### Point of Care testing ,Eosinophils/100 WBC (Bld)2.4 %Normal.Doctors HospitalComment on above:Performed By: #### GLULS #### Point of Care testing ,Erythrocyte distribution width (RBC) [Ratio]13.2 %Olmyvz84.9-15.3FMain Campus Medical CenterComment on above:Performed By: #### GLULS #### Point of Care testing ,Hematocrit (Bld) [Volume fraction]38.9 %Vaglfv46.0-46.4FMain Campus Medical CenterComment on above:Performed By: #### GLULS #### Point of Care testing ,Hemoglobin (Bld) [Mass/Vol]12.8 g/lXJmuurb39.8-15.4FMain Campus Medical CenterComment on above:Performed By: #### GLULS #### Point of Care testing ,Lymphocytes (Bld) [#/Vol]3.2 10*3/uLNormal1.00-4.8Doctors HospitalComment on above:Performed By: #### GLULS #### Point of Care testing ,Lymphocytes/100 WBC (Bld)29.1 %Normal.Doctors HospitalComment on above:Performed By: #### GLULS #### Point of Care testing ,MCH (RBC) [Entitic mass]33.5 xfCxwjrf18.7-34.3FMain Campus Medical Center Comment on above:Performed By: #### GLULS #### Point of Care testing ,MCV (RBC) [Entitic vol]102.3 lYSdjs96-641HajyvcjstDoctors Hospital Comment on above:Performed By: #### GLULS #### Point of Care testing ,Mean Corpuscular HGB Conc32.8 g/xDYqtjxy95.0-35.0Doctors HospitalComment on above:Performed By: #### GLULS #### Point of Care testing ,Monocytes (Bld) [#/Vol]1.0 10*3/uLHigh0.0-0.8[facility] Comment on above:Performed By: #### GLULS #### Point of Care testing ,Monocytes/100 WBC (Bld)9.4 %Normal.Doctors HospitalComment on above:Performed By: #### GLULS #### Point of Care testing ,Neutrophils (Bld) [#/Vol]6.3 10*3/uLNormal1.8-7.7FMain Campus Medical CenterComment on above:Performed By: #### GLULS #### Point of Care testing ,Neutrophils/100 WBC (Bld)57.7 %Normal.Doctors HospitalComment on above:Performed By: #### GLULS #### Point of Care testing ,NRBC%0.0 /100{WBC}Normal0-0.5FMain Campus Medical CenterComment on above: Performed By: #### GLULS #### Point of Care testing ,Platelet mean volume (Bld) [Entitic vol]7.5 fLNormal6.3-10.7FMain Campus Medical CenterComment on above:Performed By: #### GLULS #### Point of Care testing ,Platelets (Bld) [#/Vol]309 10*3/jQRconkk072-714ZyociqdbpDoctors HospitalComment on above:Performed By: #### GLULS #### Point of Care testing ,RBC (Bld) [#/Vol]3.81 10*6/uLNormal3.60-5.00[facility] Hospital Comment on above:Performed By: #### GLULS #### Point of Care testing ,WBC (Bld) [#/Vol]10.9 10*3/uLNormal3.8-11.6FMain Campus Medical Center Comment on above:Performed By: #### GLULS #### Point of Care testing ,Comprehensive Metabolic Panelon 37-23-6016Ifjmmil [Mass/Vol]3.3 g/dLNormal 3.2-5.5FMain Campus Medical CenterComment on above:Performed By: #### GLULS #### Point of Care testing ,Albumin/Globulin [Mass ratio]0.9 {ratio}NormalDoctors Hospital Comment on above:Performed By: #### GLULS #### Point of Care testing ,ALP [Catalytic activity/Vol]76 U/DXnnxnf76-58AiguyiffwDoctors Hospital Comment on above:Performed By: #### GLULS #### Point of Care testing ,ALT [Catalytic activity/Vol]39 U/NJweshk61-57EobkockshDoctors Hospital Comment on above:Performed By: #### GLULS #### Point of Care testing ,Anion gap [Moles/Vol]13.1 mmol/LNormal6.0-15.0[facility] Comment on above:Performed By: #### GLULS #### Point of Care testing ,AST [Catalytic activity/Vol]52 U/KWdct56-89AzzqbhhniDoctors Hospital Comment on above:Performed By: #### GLULS #### Point of Care testing ,Bilirubin [Mass/Vol]0.5 mg/dLNormal0.3-1.2FMain Campus Medical Center Comment on above:Performed By: #### GLULS #### Point of Care testing ,Calcium [Mass/Vol]9.0 mg/dLNormal8.2-10.2FMain Campus Medical Center Comment on above:Performed By: #### GLULS #### Point of Care testing ,Chloride [Moles/Vol]106 mmol/DXkzwvn32-573UjmjqjoxeDoctors Hospital Comment on above:Performed By: #### GLULS #### Point of Care testing ,CO2 [Moles/Vol]20.6 mmol/LLow22.0-30.0Doctors HospitalComment on above:Performed By: #### GLULS #### Point of Care testing ,Creatinine [Mass/Vol]0.78 mg/dLNormal0.44-1.03[facility] Comment on above:Performed By: #### GLULS #### Point of Care testing ,Creatinine Clr Calc Ctpvpbfe17.13NoMain Campus Medical CenterComment on above:Performed By: #### GLULS #### Point of Care testing ,Estimated GFR ( Rose> 60[facility] Comment on above:Result Comment: GFR estimated reference range: According to KDOQI guidelines, <60 ml/min/1.73m2 is sufficient to diagnose a patient with chronic kidney disease.Performed By: #### GLULS #### Point of Care testing ,Estimated GFR (Non- Am> 60Paulding County HospitalComment on above:Performed By: #### GLULS #### Point of Care testing ,Globulin (S) [Mass/Vol]3.6 g/dLNoMain Campus Medical CenterComment on above:Performed By: #### GLULS #### Point of Care testing ,Glucose [Mass/Vol]107 mg/lIIjap46-833AqalumqfvDoctors HospitalComment on above:Result Comment: Random Glucose Reference Range is dependent on time and content of last meal. Glucose of more than 200 mg/dL in a nonstressed, ambulatory subject supports the diagnosis of Diabetes Mellitus. ADA recommended reference rangePerformed By: #### GLULS #### Point of Care testing ,Potassium [Moles/Vol]3.7 mmol/LNormal3.5-5.1FMain Campus Medical Center Comment on above:Performed By: #### GLULS #### Point of Care testing ,Protein [Mass/Vol]6.9 g/dLNormal6.1-7.9Doctors HospitalComment on above:Performed By: #### GLULS #### Point of Care testing ,Sodium [Moles/Vol]136 mmol/ILruidk447-239ZilpfnchkDoctors Hospital Comment on above:Performed By: #### GLULS #### Point of Care testing ,Urea nitrogen [Mass/Vol]13 mg/dLNormal9-23[facility] Comment on above:Performed By: #### GLULS #### Point of Care testing ,Globulin Calc (S) [Mass/Vol]Ordered By: Stiven Zaman on 79-03-8241Ctyuzodt (S) [Mass/Vol]3.6 g/dLDoctors HospitalGlucose Poct Glucometerson 92-22-9725Txxqxcn2NokrjgJahoypamtPaulding County HospitalComment on above:Result Comment: Glu2: WILL NOTIFY DR/VALEerformed By: #### GLULS #### Point of Care testing ,Vaewdgr9Jketdaq MeterPaulding County HospitalComment on above: Result Comment: PERFORMED BY: [facility] [address] [place] [address] PATHOLOGIST CHIEF OPERATOR SYNTHESIS PILAR VILLARREAL M.D.Performed By: #### GLULS #### Point of Care testing ,Glucose [Mass/Vol]121 mg/dLPaulding County HospitalComment on above:Result Comment: Random Glucose Reference Range is dependent on time and content of last meal. Glucose of more than 200 mg/dL in a nonstressed, ambulatory subject supports the diagnosis of Diabetes Mellitus.Performed By: #### GLULS #### Point of Care testing ,Glucose [Mass/Vol]105 mg/dLPaulding County HospitalComment on above:Result Comment: Random Glucose Reference Range is dependent on time and content of last meal. Glucose of more than 200 mg/dL in a nonstressed, ambulatory subject supports the diagnosis of Diabetes Mellitus. PERFORMED BY: [facility] [address] [place] [address] PATHOLOGIST CHIEF OPERATOR SYNTHESIS PILAR VILLARREAL M.D.Performed By: #### GLULS #### Point of Care testing ,Prealbuminon 01-48-9333Nzsfpcrggk [Mass/Vol]24.1 mg/oPXtcurk32.0-38.0Doctors HospitalComment on above:Result Comment: PERFORMED BY: [facility] [address] [place] [address] PATHOLOGIST CHIEF OPERATOR SYNTHESIS PILAR VILLARREAL M.D.Performed By: #### LIPID, A1C WTH eA #### [facility] [address] [place] [address] USAProtein [Mass/volume] in Serum or PlasmaOrdered By: Stiven Zaman on 90-47-9792Anbcqmx [Mass/Vol]6.9 g/dL6.1-7.9[facility] Medical Centererum or plasma alanine aminotransferase measurement without P-5'-P (enzymatic activiOrdered By: Stiven Zaman on 55-29-6372JRI No additional P-5'-P [Catalytic activity/Vol]39 U/Z90-37YkqdzyltwUniversity Hospitals Geneva Medical Centererum or plasma albumin/globulin mass ratioOrdered By: Stiven Zaman on 06-17-2022 Albumin/Globulin [Mass ratio]0.9 {ratio}[facility] Centererum or plasma alkaline phosphatase measurement (enzymatic activity/volume)Ordered By: Stiven Zaman on 91-22-4432PFP [Catalytic activity/Vol]76 U/E35-41RdgqwishfUniversity Hospitals Geneva Medical Centererum or plasma aspartate aminotransferase measurement (enzymatic activity/volume)Ordered By: Stiven Zaman on 39-69-5996RCJ [Catalytic activity/Vol]52 U/U22-13ZxiuipklgUniversity Hospitals Geneva Medical Centererum or plasma prealbumin measurement (mass/volume)Ordered By: Stiven Zaman on 06-17-2022 Prealbumin [Mass/Vol]24.1 mg/dL18.0-38.0[facility] Centererum or plasma total bilirubin measurement (mass/volume)Ordered By: Stiven Zaman on 87-53-4394Vlqridsxh [Mass/Vol]0.5 mg/dL0.3-1.2FMain Campus Medical Center Basic Metabolic Panelon 98-10-5498Jpgoo gap [Moles/Vol]14.0 mmol/LNormal6.0-15.0 Doctors HospitalComment on above:Performed By: #### LIPID, A1C [facility] eA #### [facility] [address] [place] [address] USACalcium [Mass/Vol]9.5 mg/dLNormal8.2-10.2FMain Campus Medical CenterComment on above:Performed By: #### LIPID, A1C [facility] eA #### [facility] [address] [place] [address] USAChloride [Moles/Vol]102 mmol/MVbtaxn33-246QkhpkymocDoctors HospitalComment on above:Performed By: #### LIPID, A1C [facility] eA #### [facility] [address] [place] [address] USACO2 [Moles/Vol]21.7 mmol/LLow22.0-30.0Doctors HospitalComment on above:Performed By: #### LIPID, A1C [facility] eA #### [facility] [address] [place] [address] USACreatinine [Mass/Vol]0.83 mg/dLNormal0.44-1.03Doctors HospitalComment on above:Performed By: #### LIPID, A1C [facility] eA #### [facility] [address] [place] [address] USACreatinine Clr Calc Tucxpbnm15.32NoMain Campus Medical CenterComment on above:Result Comment: PERFORMED BY: [place] [address] PATHOLOGIST CHIEF OPERATOR SYNTHESIS PILAR VILLARREAL M.D.Performed By: #### LIPID, A1C [facility] eA #### [facility] [address] [place] [address] USAEstimated GFR ( Rose> 60NoMain Campus Medical CenterComment on above:Result Comment: GFR estimated reference range: According to KDOQI guidelines, <60 ml/min/1.73m2 is sufficient to diagnose a patient with chronic kidney disease.Performed By: #### LIPID, A1C WT eA #### [facility] [address] [place] [id number] USAEstimated GFR (Non- Am> 60NormalDoctors HospitalComment on above:Performed By: #### LIPID, A1C WTH eA #### [facility] [address] [place] [address] USAGlucose [Mass/Vol]142 mg/jNEacv11-061ZcjoyomjeDoctors HospitalComment on above:Result Comment: Random Glucose Reference Range is dependent on time and content of last meal. Glucose of more than 200 mg/dL in a nonstressed, ambulatory subject supports the diagnosis of Diabetes Mellitus. ADA recommended reference rangePerformed By: #### LIPID, A1C WT eA #### [facility] [address] [place] [address] USAPotassium [Moles/Vol]3.7 mmol/LNormal3.5-5.1FMain Campus Medical CenterComment on above:Performed By: #### LIPID, A1C WT eA #### [facility] [address] [place] [address] USASodium [Moles/Vol]134 mmol/ETsc047-288VgypcufpvDoctors HospitalComment on above:Performed By: #### LIPID, A1C WT eA #### [facility] [address] [place] [address] USAUrea nitrogen [Mass/Vol]15 mg/dLNormal9-23Doctors HospitalComment on above:Performed By: #### LIPID, A1C WT eA #### [facility] [address] [place] [address] USABasophils Auto (Bld) [#/Vol]Ordered By: Frida De La Cruz on 96-76-5792Uyigjhbuz (Bld) [#/Vol]0.1 10*3/uL0.0-0.2FMain Campus Medical CenterBasophils/100 WBC Auto (Bld)Ordered By: Frida De La Cruz on 06-15-2022 Basophils/100 WBC (Bld)1.2 %.Doctors HospitalComplete Blood Count Auto Diffon 70-19-8681Jrbpmkmpz (Bld) [#/Vol]0.1 10*3/uLNormal0.0-0.2 Doctors HospitalComment on above:Result Comment: PERFORMED BY: [place] [address] PATHOLOGIST CHIEF OPERATOR SYNTHESIS PILAR VILLARREAL M.D.Performed By: #### LIPID, A1C WTH eA #### [facility] [address] [place] [address] USABasophils/100 WBC (Bld)1.2 %Normal.Doctors HospitalComment on above:Performed By: #### LIPID, A1C WT eA #### [place] [address] USAEosinophils (Bld) [#/Vol]0.3 10*3/uLNormal0.0-0.45 Doctors HospitalComment on above:Performed By: #### LIPID, A1C WTH eA #### [place] [address] USAEosinophils/100 WBC (Bld)2.6 %Normal.Doctors HospitalComment on above:Performed By: #### LIPID, A1C WTH eA #### [place] [address] USAErythrocyte distribution width (RBC) [Ratio]13.7 %Normal 11.9-15.3FMain Campus Medical CenterComment on above:Performed By: #### LIPID, A1C WTH eA #### [place] [address] USAHematocrit (Bld) [Volume fraction]41.4 %Yxuqqm12.0-46.4 Doctors HospitalComment on above:Performed By: #### LIPID, A1C WTH eA #### [place] [address] USAHemoglobin (Bld) [Mass/Vol]13.6 g/uRCqwujh69.8-15.4 Doctors HospitalComment on above:Performed By: #### LIPID, A1C WTH eA #### [facility] [address] [place] [address] USALymphocytes (Bld) [#/Vol]2.9 10*3/uLNormal1.00-4.8 Doctors HospitalComment on above:Performed By: #### LIPID, A1C WTH eA #### [facility] [address] [place] [address] USALymphocytes/100 WBC (Bld)27.7 %Normal.Doctors HospitalComment on above:Performed By: #### LIPID, A1C WTH eA #### [facility] [address] [place] [address] USAMCH (RBC) [Entitic mass]33.9 yoUxleyk01.7-34.3FMain Campus Medical CenterComment on above:Performed By: #### LIPID, A1C WTH eA #### [place] [address] USAV (RBC) [Entitic vol]103.3 mCJkcj34-397BcctcurpaDoctors HospitalComment on above:Performed By: #### LIPID, A1C WTH eA #### [place] [address] USAMean Corpuscular HGB Conc32.8 g/mRMulnhl73.0-35.0Doctors HospitalComment on above:Performed By: #### LIPID, A1C WTH eA #### [facility] [address] [place] [address] USAMonocytes (Bld) [#/Vol]0.7 10*3/uLNormal0.0-0.8Doctors HospitalComment on above:Performed By: #### LIPID, A1C WTH eA #### [facility] [address] [place] [address] USAMonocytes/100 WBC (Bld)6.9 %Normal.Doctors HospitalComment on above:Performed By: #### LIPID, A1C WTH eA #### [facility] [address] [place] [address] USANeutrophils (Bld) [#/Vol]6.6 10*3/uLNormal1.8-7.7FMain Campus Medical CenterComment on above:Performed By: #### LIPID, A1C WT eA #### [facility] [address] [place] [address] USANeutrophils/100 WBC (Bld)61.6 %Normal.Doctors HospitalComment on above:Performed By: #### LIPID, A1C WT eA #### [facility] [address] [place] [address] USANRBC%0.1 /100{WBC}Normal0-0.5FMain Campus Medical CenterComment on above:Performed By: #### LIPID, A1C WT eA #### [facility] [address] [place] [address] USAPlatelet mean volume (Bld) [Entitic vol]8.0 fLNormal 6.3-10.7FMain Campus Medical CenterComment on above:Performed By: #### LIPID, A1C WT eA #### [facility] [address] [place] [address] USAPlatelets (Bld) [#/Vol]282 10*3/gTXsfuyb225-766PhvewkoczDoctors HospitalComment on above:Performed By: #### LIPID, A1C WT eA #### [facility] [address] [place] [address] USARBC (Bld) [#/Vol]4.01 10*6/uLNormal3.60-5.00Doctors HospitalComment on above:Performed By: #### LIPID, A1C WT eA #### [facility] [address] [place] [address] USAWBC (Bld) [#/Vol]10.7 10*3/uLNormal3.8-11.6FMain Campus Medical CenterComment on above:Performed By: #### LIPID, A1C WT eA #### [facility] [address] [place] [address] USACreatinine and Glomerular filtration rate.predicted panel (S/P/Bld)Ordered By: Frida De La Cruz on 21-77-8422Djpcshtbev [Mass/Vol]0.83 mg/dL 0.44-1.03Doctors HospitalEosinophils Auto (Bld) [#/Vol]Ordered By: Frida De La Cruz on 72-14-3779Tdepxfmytvs (Bld) [#/Vol]0.3 10*3/uL0.0-0.45 Doctors HospitalEosinophils/100 WBC Auto (Bld)Ordered By: Frida De La Cruz on 38-71-4967Ljmjpeetmrg/100 WBC (Bld)2.6 %.Doctors HospitalErythrocyte distribution width Auto (RBC) [Ratio]Ordered By: Frida De La Cruz on 42-59-6293Aapgtkzioye distribution width (RBC) [Ratio]13.7 %11.9-15.3 Doctors HospitalEstimated glomerular filtration rate (GFR) non- AmericanOrdered By: Frida De La Cruz on 65-29-9180WPZ/1.73 sq M.predicted among non-blacks MDRD (S/P/Bld) [Vol rate/Area]> 60 mL/MinDoctors HospitalHematocrit Auto (Bld) [Volume fraction]Ordered By: Frida De La Cruz on 24-45-5761Vhhyzblxxs (Bld) [Volume fraction]41.4 %34.0-46.4FMain Campus Medical CenterHemoglobin [Mass/volume] in BloodOrdered By: Frida De La Cruz on 81-53-3337Fetfeicztk (Bld) [Mass/Vol]13.6 g/dL11.8-15.4FMain Campus Medical CenterLeukocytes [#/volume] corrected for nucleated erythrocytes in Blood by Automated counOrdered By: Frida De La Cruz on 82-82-7070ZLH corrected for nucl RBC Auto (Bld) [#/Vol]10.7 10*3/uL3.8-11.6FMain Campus Medical Center Lymphocytes Auto (Bld) [#/Vol]Ordered By: Frida De La Cruz on 90-34-2565Uqvkssgyrke (Bld) [#/Vol]2.9 10*3/uL1.00-4.8[facility] Lymphocytes/100 WBC Auto (Bld)Ordered By: Frida De La Cruz on 06-15-2022 Lymphocytes/100 WBC (Bld)27.7 %.Doctors HospitalMCH Auto (RBC) [Entitic mass]Ordered By: Frida De La Cruz on 59-13-6982URZ (RBC) [Entitic mass] 33.9 pg24.7-34.3FMain Campus Medical CenterMCHC Auto (RBC) [Mass/Vol] Ordered By: Frida De La Cruz on 01-87-9293YWIH (RBC) [Mass/Vol]32.8 g/dL32.0-35.0 Doctors HospitalMCV Auto (RBC) [Entitic vol]Ordered By: Frida De La Cruz on 85-50-8184JUY (RBC) [Entitic vol]103.3 lA70-268RtglfmmsaDoctors HospitalMonocytes Auto (Bld) [#/Vol]Ordered By: Frida De La Cruz on 64-41-7433Kdkrseiap (Bld) [#/Vol]0.7 10*3/uL0.0-0.8Doctors HospitalMonocytes/100 WBC Auto (Bld)Ordered By: Frida De La Cruz on 06-15-2022 Monocytes/100 WBC (Bld)6.9 %.Doctors HospitalNeutrophils Auto (Bld) [#/Vol]Ordered By: Frida De La Cruz on 46-08-2977Weqkmmijhzl (Bld) [#/Vol]6.6 10*3/uL1.8-7.7FMain Campus Medical CenterNeutrophils/100 WBC Auto (Bld) Ordered By: Frida De La Cruz on 94-39-8273Tidtvcclwnh/100 WBC (Bld)61.6 %.Doctors HospitalNo Panel InformationOrdered By: Frida De La Cruz on 93-60-4405Floqwdjsu GFR ()> 60 mL/MinDoctors HospitalComment on above:GFR estimated reference range: According to KDOQI guidelines, <60 ml/min/1.73m2 is sufficient todiagnose a patient with chronic kidney disease.Pharmacy Creatinine Clearance (Chem48.32Doctors HospitalNucleated erythrocytes [Presence] in Blood by Automated count Ordered By: Frida De La Cruz on 16-40-6226Nnraprlty RBC Auto Ql (Bld)0.1 /100{WBC} 0-0.5FMain Campus Medical CenterPlatelet mean volume Auto (Bld) [Entitic vol]Ordered By: Frida De La Cruz on 54-30-8071Kyqsgyxp mean volume (Bld) [Entitic vol]8.0 fL6.3-10.7FMain Campus Medical CenterPlatelets Auto (Bld) [#/Vol] Ordered By: Frida De La Cruz on 78-18-6978Hcflnqrre (Bld) [#/Vol]282 10*3/fY553-172 Doctors HospitalRBC Auto (Bld) [#/Vol]Ordered By: Frida De La Cruz on 24-49-3211JWY (Bld) [#/Vol]4.01 10*6/uL3.60-5.00[facility] Geneva Medical Centererum or plasma anion gap determinationOrdered By: Frida De La Cruz on 68-75-1363Qqsgd gap [Moles/Vol]14.0 mmol/L6.0-15.0[facility] Medical Centererum or plasma calcium measurement (mass/volume)Ordered By: Frida De La Cruz on 28-58-2187Jktolek [Mass/Vol]9.5 mg/dL8.2-10.2FTriHealth Bethesda North Hospitalerum or plasma chloride measurement (moles/volume)Ordered By: Frida De La Cruz on 58-72-9981Fwoqqzjs [Moles/Vol]102 mmol/E92-708KpcaeppbtUniversity Hospitals Geneva Medical Centererum or plasma glucose measurement (mass/volume)Ordered By: Frida De La Cruz on 31-05-7466Kvwtwal [Mass/Vol]142 mg/kR62-792OyniszeyhDoctors HospitalComment on above:ADA recommended reference rangeRandom Glucose Reference Range is dependent on time and content of last meal. Glucose of more than 200 mg/dL in a nonstressed, ambulatory subject supports the diagnosisof Diabetes Mellitus.Serum or plasma potassium measurement (moles/volume)Ordered By: Frida De La Cruz on 70-43-0317Xnbtsjxlq [Moles/Vol]3.7 mmol/L3.5-5.1FTriHealth Bethesda North Hospitalerum or plasma sodium measurement (moles/volume)Ordered By: Frida De La Cruz on 60-06-6067Zqcdnd [Moles/Vol]134 mmol/G557-707BwdkhhgsiUniversity Hospitals Geneva Medical Centererum or plasma total carbon dioxide measurement (moles/volume)Ordered By: Frida De La Cruz on 89-15-9154PM6 [Moles/Vol]21.7 mmol/L 22.0-30.0[facility] Medical Centererum or plasma urea nitrogen measurement (mass/volume)Ordered By: Frida De La Cruz on 95-69-0143Oqlh nitrogen [Mass/Vol]15 mg/dL9-23Doctors HospitalWBC Auto (Bld) [#/Vol] Ordered By: Frida De La Cruz on 80-17-9365IQF (Bld) [#/Vol]10.7 10*3/uL3.8-11.6 Doctors HospitalECG 12 lead ECGon 29-04-5464WBL 12 lead ECG [place] [address] Electrocardiograph Report Signed Patient: Abdirahman Gomez MR#: [id number] : 1940 Acct:[id number] Age/Sex: 81 / F ADM Date: 06/09/22 Loc: Room: [address] [place] [address] Type: DIS IN Attending Dr: Frida De [...] Signed By Yoav Prado MD 0 06/15/22 0617Paulding County HospitalTroponin I High Sensitivityon 08-83-9846Lkdgboox I High Bsphxqpafmu565 pg/mLOff scale high[address] [place], [place] [address]Comment on above:Result Comment: Critical value result called at 1642 on 06/14/22 PERFORMED BY: [address] [address] PATHOLOGIST CHIEF OPERATOR SYNTHESIS PILAR VILLARREAL M.D.Performed By: #### GLULS #### Point of Care testing ,Troponin I.cardiac [Mass/volume] in Serum or Plasma by High sensitivity method Ordered By: Nathaniel Castillo on 32-12-4151Ciukbnck I.cardiac High sensitivity method [Mass/Vol]906 pg/mL[address] [place], [place] [address]Comment on above: Critical valueresult calledat 1642 on 06/14/22A1C with Estimated Average Gluon 28-61-5873Xikxiei [Mass/Vol]123 mg/dLPaulding County Hospital Comment on above:Result Comment: PERFORMED BY: [address] [address] PATHOLOGIST CHIEF OPERATOR SYNTHESIS PILAR VILLARREAL M.D.Performed By: #### LIPID, A1C WTH eA #### [facility] [address] [place] [address] WTDHbI7m (Bld) [Mass fraction]5.9 %High4.3-5.6FMain Campus Medical CenterComment on above:Result Comment: Increased risk for diabetes: 5.7 - 6.4 diabetes: >6.4 glycemic control for adults with diabetes: <7.0Performed By: #### LIPID, A1C WTH eA #### [facility] [address] [place] [address] USACholesterol [Mass/volume] in Serum or PlasmaOrdered By: Nathaniel Castillo on 14-15-6952Iwekgtxiiyj [Mass/Vol]150 mg/qC003-878AxrsbgcvrDoctors HospitalComment on above:Chol less than 200 mg/dl low riskChol 201-239 mg/dl borderline riskChol 240 mg/dl and greater high riskCholesterol in LDL Calc [Mass/Vol]Ordered By: Nathaniel Castillo on 79-86-2013Odkutkdkcwg in LDL [Mass/Vol]80 mg/dL0-100Doctors HospitalComment on above:LDL ATP III CLASSIFICATIONLDL less than 100 mg/dL OptimalLDL 100-129 mg/dL Near or above lwlwwytIEW092-589 mg/dL Borderline highLDL 160-189 mg/dL HighLDL greater than 189 mg/dL Very highCholesterol in VLDL Calc [Mass/Vol]Ordered By: Nathaniel Castillo on 06-08-7266Wvfcesqtthm in VLDL [Mass/Vol]25 mg/dLDoctors HospitalECG 12 lead ECGon 53-45-2879MMU 12 lead ECGP[place] [address] Electrocardiograph Report Signed Patient: Abdirahman Gomez MR#: [id number] : 1940 Acct:[id number] Age/Sex: 81 / F ADM Date: 06/09/22 Loc: Room: [address] [place] [address] Type: DIS IN Attending Dr: Frida De [...] MUS Signed By Ousmane Epstein DO 06/15 1119NoMain Campus Medical CenterGlucose mean value [Mass/volume] in Blood Estimated from glycated hemoglobinOrdered By: Nathaniel Castillo on 40-46-9700Vryxsgb glucose Estimated from glycated hemoglobin (Bld) [Mass/Vol]123 mg/dLDoctors HospitalHemoglobin A1c percentageOrdered By: Nathaniel Castillo on 56-20-7544KxM4g (Bld) [Mass fraction]5.9 %4.3-5.6FMain Campus Medical CenterComment on above:Increased risk for diabetes: 5.7 - 6.4diabetes: >6.4glycemic control for adults with diabetes: <7.0Lipid Panelon 51-79-0164Okhbxbxvmlp [Mass/Vol]150 mg/nUAijkhf510-316IkvvovmgiDoctors HospitalComment on above:Result Comment: Chol less than 200 mg/dl low risk Chol 201-239 mg/dl borderline risk Chol 240 mg/dl and greater high riskPerformed By: #### LIPID, A1C WTH eA #### [facility] [address] [place] [address] USACholesterol in HDL [Mass/Vol]45 mg/hBOzrmkr72-87NnpyvfchiDoctors HospitalComment on above:Result Comment: HDL CHOL ATP-III CLASSIFICATION Cardiovascular Risk HDL > or equal to 60 mg/dL LOW HDL < 40 mg/dL HIGHPerformed By: #### LIPID, A1C WTH eA #### [facility] [address] [place] [address] USACholesterol.total/Cholesterol in HDL [Mass ratio]3.3 {ratio}Normal<5.0Doctors HospitalComment on above:Result Comment: PERFORMED BY: [facility] [address] [place], [place] [id number] PATHOLOGIST CHIEF OPERATOR SYNTHESIS PILAR VILLARREAL M.D.Performed By: #### LIPID, A1C WTH eA #### [facility] [address] [place] [address] USALDL Cholesterol,Tupvgzmnsg76 mg/dLNormal0-100Doctors HospitalComment on above:Result Comment: LDL ATP III CLASSIFICATION LDL less than 100 mg/dL Optimal LDL 100-129 mg/dL Near or above optimal LDL 130-159 mg/dL Borderline high LDL 160-189 mg/dL High LDL greater than 189 mg/dL Very highPerformed By: #### LIPID, A1C [facility] eA #### [facility] [address] [place] [address] USATriglyceride w/Yyezbz418 mg/vJQqnqws16-557EsfmkzjxcDoctors HospitalComment on above:Result Comment: TRIG ATP III CLASSIFICATION TRIG less than 150 mg/dL Normal TRIG 150-199 mg/dL Borderline high TRIG 200-500 mg/dL High TRIG greater than 500 mg/dL Very high Standard traceable to the Center for Disease Conrtrol and Prevention (CDC) test method.Performed By: #### LIPID, A1C [facility] eA #### [facility] [address] [place] [address] USAVLDL YFSBVTSHVHE77 mg/dLNormSt. Anthony's HospitalComment on above:Performed By: #### LIPID, [address] eA #### [facility] [address] [place] [address] USASerum or plasma high density lipoprotein (HDL) cholesterol measurementOrdered By: Nathaniel Castillo on 26-35-1149Keayjytrlod in HDL [Mass/Vol] 45 mg/cD50-20CpoyxcsobDoctors HospitalComment on above:HDL CHOL ATP-III CLASSIFICATION Cardiovascular RiskHDL > or equal to 60 mg/dL LOWHDL < 40 mg/dL HIGHSerum or plasma total cholesterol/high density lipoprotein (HDL) cholesterol mass ratOrdered By: Nathaniel Castillo on 32-42-3826Rkktvnqufix.total/Cholesterol in HDL [Mass ratio]3.3 {ratio}<5.0Doctors HospitalTriglyceride [Mass/volume] in Serum or PlasmaOrdered By: Nathaniel Castillo on 06-13-2022 Triglyceride [Mass/Vol]127 mg/vU85-934NfnffnydcDoctors HospitalComment on above:TRIG ATP III CLASSIFICATIONTRIG less than 150 mg/dL NormalTRIG 150-199 mg/dL Borderline highTRIG 200-500 mg/dL High TRIG greater than 500 mg/dL Very highStandard traceable to the Center for Disease Conrtrol and Prevention (CDC) test method.MR angio head wo conon 84-10-8171RV angio head wo [facility] [place] [address] MRI Report Signed Patient: Abdirahman Gomez MR#: [id number] : 1940 Acct:[id number] Age/Sex: 81 / F ADM Date: 06/09/22 Loc: 3T Room: [address] [place] [address] Type: ADM IN Attending Dr: Nathaniel Castillo MD Copies to: Nathaniel Castillo MD Ordering Provider: Nathaniel Castillo MD Date of Service: 06/12/22 MR/MR angio head wo con: stroke MRA OF THE INTRACRANIAL CIRCULATION TECHNIQUE: 3-D oagn-es-cxrltd imaging of the [place] obtained. HISTORY:LEFT arm weakness. The visualized carotid and the vertebrobasilar system are unremarkable. No abnormality of the anterior, middle and posterior cerebral arteries identified. No arterial occlusion, stenosis or dissection identified. No intracranial aneurysm identified. MR/MR angio head wo con IMPRESSION: UNREMARKABLE MRA OF THE INTRACRANIAL CIRCULATION. Impression dictated by: Mamadou Rodríguez M.D.06/12/2022 1:36 PM Dictation Location: [place] [address] Transcribed By: [facility] 06/12/22 1336 Dictated By: Mamadou Rodríguez DO 06/12/22 1330 Signed By: 06/12/[address] [place] [address] head/brain wo conon 88-87-0610FC head/brain wo [facility] [address] [place] [id number] MRI Report Signed Patient: Abdirahman Gomez MR#: [id number] : 1940 Acct:[id number] Age/Sex: 81 / F ADM Date: 06/09/22 Loc: 3T Room: [address] [place] [address] Type: ADM IN Attending Dr: Nathaniel Castillo [...] AM. Impression dictated by: Stiven Beasley Jr., D.OHuma06/12/2022 10:02 AM Dictation Location: [place] [address] Transcribed By: [facility] 06/12/22 1002 Dictated By: Stiven Beasley Jr, DO 06/12/22 0950 Signed By: 06/12/22 1002Paulding County HospitalComplete Blood Count Auto Diffon 69-19-3431Ciihaccij (Bld) [#/Vol]0.1 10*3/uLNormal0.0-0.2FMain Campus Medical CenterComment on above:Result Comment: PERFORMED BY: [facility] [address] [place] [address] PATHOLOGIST CHIEF OPERATOR SYNTHESIS PILAR VILLARREAL M.D.Performed By: #### GLULS #### Point of Care testing ,Basophils/100 WBC (Bld)0.5 %Normal.Doctors HospitalComment on above:Performed By: #### GLULS #### Point of Care testing ,Eosinophils (Bld) [#/Vol]0.1 10*3/uLNormal0.0-0.45Doctors HospitalComment on above:Performed By: #### GLULS #### Point of Care testing ,Eosinophils/100 WBC (Bld)1.2 %Normal.Doctors HospitalComment on above:Performed By: #### GLULS #### Point of Care testing ,Erythrocyte distribution width (RBC) [Ratio]13.6 %Dcdwxx19.9-15.3FMain Campus Medical CenterComment on above:Performed By: #### GLULS #### Point of Care testing ,Hematocrit (Bld) [Volume fraction]37.7 %Hguswi46.0-46.4FMain Campus Medical CenterComment on above:Performed By: #### GLULS #### Point of Care testing ,Hemoglobin (Bld) [Mass/Vol]12.4 g/aWMfrmig65.8-15.4FMain Campus Medical CenterComment on above:Performed By: #### GLULS #### Point of Care testing ,Lymphocytes (Bld) [#/Vol]2.8 10*3/uLNormal1.00-4.8Doctors HospitalComment on above:Performed By: #### GLULS #### Point of Care testing ,Lymphocytes/100 WBC (Bld)24.1 %Normal.Doctors HospitalComment on above:Performed By: #### GLULS #### Point of Care testing ,MCH (RBC) [Entitic mass]34.5 zlUzxt80.7-34.3FMain Campus Medical Center Comment on above:Performed By: #### GLULS #### Point of Care testing ,MCV (RBC) [Entitic vol]104.5 nPWpep10-054GhgouqtkeDoctors Hospital Comment on above:Performed By: #### GLULS #### Point of Care testing ,Mean Corpuscular HGB Conc33.0 g/kSAphhxq38.0-35.0Doctors HospitalComment on above:Performed By: #### GLULS #### Point of Care testing ,Monocytes (Bld) [#/Vol]1.0 10*3/uLHigh0.0-0.8[facility] Comment on above:Performed By: #### GLULS #### Point of Care testing ,Monocytes/100 WBC (Bld)9.1 %Normal.Doctors HospitalComment on above:Performed By: #### GLULS #### Point of Care testing ,Neutrophils (Bld) [#/Vol]7.4 10*3/uLNormal1.8-7.7FMain Campus Medical CenterComment on above:Performed By: #### GLULS #### Point of Care testing ,Neutrophils/100 WBC (Bld)65.1 %Normal.Doctors HospitalComment on above:Performed By: #### GLULS #### Point of Care testing ,NRBC%0.1 /100{WBC}Normal0-0.5FMain Campus Medical CenterComment on above: Performed By: #### GLULS #### Point of Care testing ,Platelet mean volume (Bld) [Entitic vol]8.0 fLNormal6.3-10.7FMain Campus Medical CenterComment on above:Performed By: #### GLULS #### Point of Care testing ,Platelets (Bld) [#/Vol]206 10*3/pIBgaync397-121BsyxhupseDoctors HospitalComment on above:Performed By: #### GLULS #### Point of Care testing ,RBC (Bld) [#/Vol]3.61 10*6/uLNormal3.60-5.00[facility] Comment on above:Performed By: #### GLULS #### Point of Care testing ,WBC (Bld) [#/Vol]11.4 10*3/uLNormal3.8-11.6FMain Campus Medical Center Comment on above:Performed By: #### GLULS #### Point of Care testing ,ECG 12 lead ECGon 67-27-8589LMZ 12 [facility] [place] [id number] Electrocardiograph Report Signed Patient: Abdirahman Gomez MR#: [id number] : 1940 Acct:[id number] Age/Sex: 81 / F ADM Date: 06/09/22 Loc: 3T Room: [address] [place] [address] Type: DIS IN Attending Dr: Frida De [...] MUS Signed By Yoav Prado MD 1 1318NoMain Campus Medical CenterTroponin I High Sensitivityon 00-37-9527Vitgpgsh I High Lvshsqofipi0428 pg/mLOff scale high0-15Doctors HospitalComment on above:Result Comment: Results called at 0655 on 06/11/22 PERFORMED BY: [place] [address] PATHOLOGIST CHIEF OPERATOR SYNTHESIS PILAR VILLARREAL M.D.Performed By: #### LIPID, A1C [facility] eA #### [place] [id number] USAXR chest 1V portableon 31-36-6485BC chest 1V portable [facility] [place] [address] [place] [address] XRay Report Signed Patient: Abdirahman Gomez MR#: [id number] : 1940 Acct:[id number] Age/Sex: 81 / F ADM Date: 06/09/22 Loc: 3T Room: [address] [place] [address] Type: ADM IN Attending Dr: Nathaniel Castillo [...] Beasley Jr., D.OHuma06/11/2022 3:33 PM Dictation Location: [place] [address] Transcribed By: [facility] 06/11/22 1533 Dictated By: Stiven Beasley Jr, DO 06/11/22 1533 Signed By: 06/11/22 1533Paulding County HospitalECG 12 lead ECGon 06-10-2022 ECG 12 lead [facility]P[place] [address] Electrocardiograph Report Signed Patient: Abdirahman Gomez MR#: [id number] : 1940 Acct:[id number] Age/Sex: 81 / F ADM Date: 06/09/22 Loc: Room: [address] [place] [address] Type: DIS IN Attending Dr: Frida De [...] Signed By Yoav Prado MD 1 08/11/[address] [place], [place] [address]ECG 12 lead ECGPOMERENE [facility] [place] [address] [place] [address] Electrocardiograph Report Signed Patient: Abdirahman Gomez MR#: [id number] : 1940 Acct:[id number] Age/Sex: 81 / F ADM Date: 06/09/22 Loc: Room: [address] [place] [address] Type: DIS IN Attending Dr: Frida De [...] Signed By Yoav Prado MD 1 08/11/[address] [place], [place] [address]Basic Metabolic Panelon 27-89-6376Wskss gap [Moles/Vol]13.4 mmol/LNormal6.0-15.0Doctors HospitalComment on above:Performed By: #### LIPID, A1C [facility] #### [facility] [address] [place] [address] USACalcium [Mass/Vol]8.9 mg/dLNormal8.2-10.2FMain Campus Medical CenterComment on above:Performed By: #### LIPID, A1C WTH eA #### [facility] [address] [place] [address] USAChloride [Moles/Vol]106 mmol/QGqepre06-409QnkmuhfvyDoctors HospitalComment on above:Performed By: #### LIPID, A1C WTH eA #### [facility] [address] [place] [address] USACO2 [Moles/Vol]21.6 mmol/LLow22.0-30.0Doctors HospitalComment on above:Performed By: #### LIPID, A1C WTH eA #### [facility] [address] [place] [address] USACreatinine [Mass/Vol]0.76 mg/dLNormal0.44-1.03Doctors HospitalComment on above:Performed By: #### LIPID, A1C WTH eA #### [facility] [address] [place] [address] USACreatinine Clr Calc Yvtuqetq72.92NoMain Campus Medical CenterComment on above:Performed By: #### LIPID, A1C WTH eA #### [facility] [address] [place] [address] USAEstimated GFR ( Rose> 60NoMain Campus Medical CenterComment on above:Result Comment: GFR estimated reference range: According to KDOQI guidelines, <60 ml/min/1.73m2 is sufficient to diagnose a patient with chronic kidney disease.Performed By: #### LIPID, A1C WTH eA #### [facility] [address] [place] [address] USAEstimated GFR (Non- Am> 60NoMain Campus Medical CenterComment on above:Performed By: #### LIPID, A1C WTH eA #### [facility] [address] [place] [id number] USAGlucose [Mass/Vol]136 mg/wGSuwe60-640SiczubuujDoctors HospitalComment on above:Result Comment: Random Glucose Reference Range is dependent on time and content of last meal. Glucose of more than 200 mg/dL in a nonstressed, ambulatory subject supports the diagnosis of Diabetes Mellitus. ADA recommended reference rangePerformed By: #### LIPID, A1C WT eA #### [facility] [address] [place] [address] USAPotassium [Moles/Vol]4.0 mmol/LNormal3.5-5.1FMain Campus Medical CenterComment on above:Performed By: #### LIPID, A1C WT eA #### [facility] [address] [place] [address] USASodium [Moles/Vol]137 mmol/KSumdmr083-630SdpvzuucbDoctors HospitalComment on above:Performed By: #### LIPID, A1C [facility] eA #### [facility] [address] [place] [address] USAUrea nitrogen [Mass/Vol]9 mg/dLNormal9-23Doctors HospitalComment on above:Performed By: #### LIPID, A1C [facility] eA #### [facility] [address] MANUAL DIFFon 12-29-9020RWLJZRMO LYMPH #0.53 103/ul NormalCleveland Clinic Lutheran HospitalComment on above:Performed By: #### TSH, BNP, CMP, LIPID, T7 #### [facility] [address] [place] [address] Dr. Logan DiazICAL LYMPH %4 %NormalCleveland Clinic Lutheran HospitalComment on above: Performed By: #### TSH, BNP, CMP, LIPID, T7 #### [facility] [address] [place] [address] [address] Logan Quiros #0.0 103/ulNormal0.0-0.3The [facility] Medical CenterComment on above:Performed By: #### TSH, BNP, CMP, LIPID, T7 #### [facility] [address] [place] [address] [address] Logan Quiros %0 %Normal0-5The [facility] Medical CenterComment on above:Performed By: #### TSH, BNP, CMP, LIPID, T7 #### [facility] [address] [place] [address] [address] Logan Jiang #0.26 103/ulCritically high0.00-0.10The [facility] Comment on above:Performed By: #### TSH, BNP, CMP, LIPID, T7 #### [facility] [address] [place] [address] Dr. Logan Jiang %2.0 %Normal0.2-2.0The [facility] Medical CenterComment on above: Performed By: #### TSH, BNP, CMP, LIPID, T7 #### [facility] [address] [place] [address] Dr. Logan Suarez #NormalThe [facility] Medical CenterComment on above:Performed By: #### TSH, BNP, CMP, LIPID, T7 #### [facility] [address] [place] [address] Dr. Logan PayneBLAST %NormalThe [facility] Medical CenterComment on above:Performed By: #### TSH, BNP, CMP, LIPID, T7 #### [facility] [address] [place] [address] Dr. Logan PayneCORRECTED WBCNormal4.0-11.0The [facility] Medical CenterComment on above: Performed By: #### TSH, BNP, CMP, LIPID, T7 #### [facility] [address] [place] [address] Dr. Logan Snyder #0.66 103/ulNormal0.00-0.70The [facility] Medical CenterComment on above:Performed By: #### TSH, BNP, CMP, LIPID, T7 #### [facility] [address] [place] [address] Dr. Logan Snyder%5.0 %Normal0.9-7.0The [facility] Medical CenterComment on above: Performed By: #### TSH, BNP, CMP, LIPID, T7 #### [facility] [address] [place] [address] Dr. Logan PayneHCT39.6 %Oyhsjl62.0-48.0The [facility] CenterComment on above: Performed By: #### TSH, BNP, CMP, LIPID, T7 #### [facility] [address] [address] [address] Logan PayneHGB13.5 g/ysRinnqy75.0-16.0The [facility] CenterComment on above: Performed By: #### TSH, BNP, CMP, LIPID, T7 #### [facility] [address] [place] [address] Dr. Logan Murray #1.98 103/ulNormal1.20-3.80The [facility] CenterComment on above:Performed By: #### TSH, BNP, CMP, LIPID, T7 #### [facility] [address] [place] [address] Dr. Logan Murray%15.0 %Critically low20.5-60.0The [facility] CenterCombeaumont hospital on above:Performed By: #### TSH, BNP, CMP, LIPID, T7 #### [facility] [address] [place] [address] Dr. Logan HamptonH34.1 pgCritically high26.7-34.0The [facility] CenterComment on above:Performed By: #### TSH, BNP, CMP, LIPID, T7 #### [facility] [address] [place] [address] Dr. Logan HamptonHC34.1 g/rjNprazb49.9-35.2The [facility] CenterComment on above:Performed By: #### TSH, BNP, CMP, LIPID, T7 #### [facility] [address] [place] [address] Dr. Logan HamptonV100.0 fLCritically high81.0-99.0The [facility] CenterComment on above:Performed By: #### TSH, BNP, CMP, LIPID, T7 #### [facility] [address] [place] [address] Dr. Logan BocanegraOCYTE #NormalCleveland Clinic Lutheran HospitalCombeaumont hospital on above: Performed By: #### TSH, BNP, CMP, LIPID, T7 #### [facility] [address] [place] [address] Dr. Logan BocanegraOCYTE %NormalThe [facility] CenterComment on above: Performed By: #### TSH, BNP, CMP, LIPID, T7 #### [facility] [address] [address] [address] Logan Cook#1.85 103/ulCritically high0.30-0.80The [facility] on above:Performed By: #### TSH, BNP, CMP, LIPID, T7 #### [facility] [address] [address] [address] Logan Cook%14.0 %Critically high1.7-12.0The [facility]ment on above:Performed By: #### TSH, BNP, CMP, LIPID, T7 #### [facility] [address] [place] [address] Dr. Logan WhitleyV9.3 fLCritically low9.5-13.5The [facility] Rehabilitationment on above:Performed By: #### TSH, BNP, CMP, LIPID, T7 #### [facility] [address] [place] [address] Dr. Logan Syed #NormalAkron Children's Hospitalment on above:Performed By: #### TSH, BNP, CMP, LIPID, T7 #### [facility] [address] [place] [address] Dr. Logan Syed %NormalThe [facility] on above:Performed By: #### TSH, BNP, CMP, LIPID, T7 #### [facility] [address] [place] [address] Dr. Logan PayneNRBCNormalThe [facility] Rehabilitationment on above:Performed By: #### TSH, BNP, CMP, LIPID, T7 #### [facility] [address] [place] [address] Dr. Logan PaynePLT219 103/eeIvgals758-309Aye [facility] on above: Performed By: #### TSH, BNP, CMP, LIPID, T7 #### [facility] [address] [place] [address] Dr. Logan PayneRBC3.96 106/ulCritically low4.20-5.40The [facility] on above:Performed By: #### TSH, BNP, CMP, LIPID, T7 #### [facility] [address] [place] [address] Dr. Logan PayneRDW13.2 %Jqxoti48.0-15.0The [facility] CenterComment on above: Performed By: #### TSH, BNP, CMP, LIPID, T7 #### [facility] [address] [place] [address] Dr. Logan Whalen #7.92 103/ulCritically high1.40-6.50The [facility] on above:Performed By: #### TSH, BNP, CMP, LIPID, T7 #### [facility] [address] [place] [address] Dr. Logan Whalen %60.0 %Ynqaot29.0-75.0The [facility]ment on above: Performed By: #### TSH, BNP, CMP, LIPID, T7 #### [facility] [address] [place] [address] Dr. Logan PayneWBC13.2 103/ulCritically high4.0-11.0The [facility] on above:Performed By: #### TSH, BNP, CMP, LIPID, T7 #### [facility] [address] [place] [address] Dr. Logan Day BLOODon 74-38-2776Jmgcnahaeqh examination of blood, cultureCulture Observations: NO GROWTH AT 5 DAYS. Isolate 1 BC_BA_NANorFayette County Memorial HospitalComment on above:Performed By: #### TSH, BNP, CMP, LIPID, T7 #### [facility] [address] [place] [address] Dr. Logan PayneMicroscopic examination of blood, cultureCulture Observations: NO GROWTH AT 5 DAYS. Isolate 1 BC_BA_NANorFayette County Memorial HospitalComment on above:Performed By: #### TSH, BNP, CMP, LIPID, T7 #### [facility] [address] [place] [address] Dr. Logan Salterplete Blood Count Auto Diffon 72-33-0240Soiaxqgom (Bld) [#/Vol]0.1 10*3/uLNormal0.0-0.2FMain Campus Medical CenterComment on above:Result Comment: PERFORMED BY: [place] [address] PATHOLOGIST CHIEF OPERATOR SYNTHESIS PILAR VILLARREAL M.D.Performed By: #### LIPID, A1C WTH eA #### [facility] [address] [place] [address] USABasophils/100 WBC (Bld)0.4 %Normal.Doctors HospitalComment on above:Performed By: #### LIPID, A1C WTH eA #### [facility] [address] [place] [address] USAEosinophils (Bld) [#/Vol]0.1 10*3/uLNormal0.0-0.45 Doctors HospitalComment on above:Performed By: #### LIPID, A1C WTH eA #### [facility] [address] [place] [address] USAEosinophils/100 WBC (Bld)0.5 %Normal.Doctors HospitalComment on above:Performed By: #### LIPID, A1C WTH eA #### [place] [address] USAErythrocyte distribution width (RBC) [Ratio]13.8 %Normal 11.9-15.3FMain Campus Medical CenterComment on above:Performed By: #### LIPID, A1C WTH eA #### [facility] [address] [place] [address] USAHematocrit (Bld) [Volume fraction]41.0 %Zddlmy20.0-46.4 Doctors HospitalComment on above:Performed By: #### LIPID, A1C WTH eA #### [facility] [address] [place] [address] USAHemoglobin (Bld) [Mass/Vol]13.6 g/eAFpjuxo53.8-15.4 Doctors HospitalComment on above:Performed By: #### LIPID, A1C WTH eA #### [place] [address] USALymphocytes (Bld) [#/Vol]2.3 10*3/uLNormal1.00-4.8 Doctors HospitalComment on above:Performed By: #### LIPID, A1C WTH eA #### [facility] [address] [id number] USALymphocytes/100 WBC (Bld)17.2 %Normal.Doctors HospitalComment on above:Performed By: #### LIPID, A1C WTH eA #### [facility] [address] [place] [address] USAMCH (RBC) [Entitic mass]34.4 xiMrfl67.7-34.3FMain Campus Medical CenterComment on above:Performed By: #### LIPID, A1C WTH eA #### [facility] [address] [place] [address] USAMCV (RBC) [Entitic vol]103.6 pYUnqk68-895MyjxlmlwfDoctors HospitalComment on above:Performed By: #### LIPID, A1C WTH eA #### [facility] [address] [place] [address] USAMean Corpuscular HGB Conc33.2 g/zJAaeanp62.0-35.0Doctors HospitalComment on above:Performed By: #### LIPID, A1C WTH eA #### [facility] [address] [id number] USAMonocytes (Bld) [#/Vol]1.3 10*3/uLHigh0.0-0.8Doctors HospitalComment on above:Performed By: #### LIPID, A1C WTH eA #### [facility] [address] [id number] USAMonocytes/100 WBC (Bld)10.1 %Normal.Doctors HospitalComment on above:Performed By: #### LIPID, A1C WTH eA #### [facility] [address] [place] [address] USANeutrophils (Bld) [#/Vol]9.5 10*3/uLHigh1.8-7.7FMain Campus Medical CenterComment on above:Performed By: #### LIPID, A1C WT eA #### [facility] [address] [place] [address] USANeutrophils/100 WBC (Bld)71.8 %Normal.Doctors HospitalComment on above:Performed By: #### LIPID, A1C WT eA #### [facility] [address] [place] [address] USANRBC%0.0 /100{WBC}Normal0-0.5FMain Campus Medical CenterComment on above:Performed By: #### LIPID, A1C [facility] eA #### [place] [address] USAPlatelet mean volume (Bld) [Entitic vol]8.1 fLNormal 6.3-10.7FMain Campus Medical CenterComment on above:Performed By: #### LIPID, A1C WT eA #### [facility] [address] [place] [address] USAPlatelets (Bld) [#/Vol]199 10*3/vUWxbaio098-022OgqkjdkqaDoctors HospitalComment on above:Performed By: #### LIPID, A1C WT eA #### [place] [address] USARBC (Bld) [#/Vol]3.96 10*6/uLNormal3.60-5.00Doctors HospitalComment on above:Performed By: #### LIPID, A1C WT eA #### [place] [address] USAWBC (Bld) [#/Vol]13.2 10*3/uLHigh3.8-11.6FMain Campus Medical CenterComment on above:Performed By: #### LIPID, A1C WT eA #### [place] [address] USACovid-19 PCR (CVDTBH)on 37-35-2715FXGW-CoV-2 (COVID-19) RNA CAROL+probe Ql (Unsp spec)Not detectedNormalNOT DETECTEDThe [facility] Comment on above:Result Comment: When diagnostic testing is negative, the [...] for this test is supported by the [place] of Health and Human Service's declaration that circumstances exist to justify the emergency use of in vitro diagnostics for the detection and/or diagnosis of the virus that causes COVID-19. This EUA will remain in effect for the duration of the COVID-19 declaration justifying emergency of IVDs, unless it is terminated or revoked by the FDA (after which the test may no longer be used).Performed By: #### TSH, BNP, CMP, LIPID, T7 #### [facility] [address] [place] [address] Dr. Ford [facility] 12 lead ECGon 15-60-1636NVK 12 lead [facility]POM[facility] [place] [address] [place] [address] Electrocardiograph Report Signed Patient: Abdirahman Gomez MR#: [id number] : 1940 Acct:[id number] Age/Sex: 81 / F ADM Date: 06/09/22 Loc: Room: [address] [place] [address] Type: DIS IN Attending Dr: Frida De [...] ECG No previous ECGs available Confirmed by EVE BERMNA, YOAV ([id number]) on 06/09/2022 5:09:33 PM Referred By: AG Electronically Signed By:YOAV PRADO MD Transcribed By: MUS Signed By Yoav Prado MD 1 08/10/21 1709[facility] HospitalE[facility] echo transthoracicon 11-50-9201MDZ echo transthoracicPOMERENE [place] [address] Echocardiogram Signed Patient: Abdirahman Gomez MR#: [id number] : 1940 Acct:[id number] Age/Sex: 81 / F ADM Date: 06/09/22 Loc: Room: [address] [place] [address] Type: DIS IN Attending Dr: Frida De [...] [id number] Signed By: Yoav Prado MD 06/09/22 1653NoMain Campus Medical CenterFolate [Mass/volume] in Serum or PlasmaOrdered By: Nathaniel Castillo on 06-29-1971Kyndse [Mass/Vol]ng/mL>5.9Doctors HospitalComment on above:Folate reference range: >5.9 ng/mlThe WHO technical consultation on folate and vitamin v53pdosioweflqn has determined that folate concentrations lessthan 4 ng/ml are considered deficient.LACTATE/LACTIC ACIDon 10-37-1637Twdkmvk [Moles/Vol]1.1 mmol/LNormal0.4-1.9The [facility] CenterComment on above: Performed By: #### TSH, BNP, CMP, LIPID, T7 #### [facility] [address] [address] [address] Logan Clementsctate [Moles/Vol]1.8 mmol/LNormal0.4-1.9The [facility] Comment on above:Performed By: #### TSH, BNP, CMP, LIPID, T7 #### [facility] [address] [address] [address] Logan PayneLaboratory - Chemistry and Chemistry - challengeOrdered By: Nathaniel Castillo on 86-16-8171Cuzhwzkcc (Vitamin B12) [Mass/Vol]480 pg/cN664-106 Doctors HospitalLaboratory - Chemistry and Chemistry - challengeOrdered By: Rossi Valdez on 48-90-6935Adeletxfa [Mass/Vol]1.8 mg/dL 1.6-2.6FMain Campus Medical CenterMagnesiumon 87-81-0475Bqpmmlxir [Mass/Vol]1.8 mg/dLNormal1.6-2.6FMain Campus Medical CenterComment on above:Result Comment: PERFORMED BY: [place] [address] PATHOLOGIST CHIEF OPERATOR SYNTHESIS PILAR VILLARREAL M.D.Performed By: #### LIPID, A1C WTH eA #### [place] [address] USAOCC BLD IMMUNO SCREENon 65-26-3977ZOWSCJ BLOODPositive AbnormalNEGATIVEThe [facility] CenterComment on above:Performed By: #### TSH, BNP, CMP, LIPID, T7 #### [facility] [address] [address] [address] Logan PaynePROJacqueline 14(COMP METB)on 28-52-4440Fdtfuae [Mass/Vol]3.3 g/dL Critically low3.4-5.0The [facility] CenterComment on above:Performed By: #### CMP, HSTROPN #### [facility] [address] [address] [address] Logan PayneAlbumin/Globulin [Mass ratio]0.8 {ratio}NormalThe [facility] CenterComment on above:Performed By: #### CMP, HSTROPN #### [facility] [address] [place] [address] Dr. Logan MckayP [Catalytic activity/Vol]95 U/NUbssja18-931Uxl [facility] CenterComment on above:Performed By: #### CMP, HSTROPN #### [facility] [address] [place] [address] Dr. Logan MckayT [Catalytic activity/Vol]36 U/WMolshv10-80Cxz [facility] CenterComment on above:Performed By: #### CMP, HSTROPN #### [facility] [address] [place] [address] Dr. Logan PayneAnion gap [Moles/Vol]14.7 mmol/LNormalThe [facility] Comment on above:Performed By: #### CMP, HSTROPN #### [facility] [address] [place] [address] Dr. Logan PayneAST [Catalytic activity/Vol]75 U/LCritically jseb52-44Dsx [facility] CenterComment on above:Performed By: #### CMP, HSTROPN #### [facility] [address] [place] [address] Dr. Logan PayneBilirubin [Mass/Vol]0.4 mg/dLNormal0.2-1.0The [facility] Comment on above:Performed By: #### CMP, HSTROPN #### [facility] [address] [place] [address] Dr. Logan PayneCalcium [Mass/Vol]8.7 mg/dLNormal8.5-10.1The [facility] Comment on above:Performed By: #### CMP, HSTROPN #### [facility] [address] [place] [address] Dr. Logan PayneChloride [Moles/Vol]103 mmol/ESnfndn34-878Ata [facility] Comment on above:Performed By: #### CMP, HSTROPN #### [facility] [address] [address] [address] Logan PayneCO2 [Moles/Vol]21.3 mmol/YVwsnaw09.0-32.0The [facility] Comment on above:Performed By: #### CMP, HSTROPN #### [facility] [address] [address] [address] Logan PayneCreatinine [Mass/Vol]0.83 mg/dLNormal0.55-1.02The [facility] CenterComment on above:Performed By: #### CMP, HSTROPN #### [facility] [address] [place] [address] Dr. Logan VegaGFR-AF FIJIAN>60Normal>=60The [facility] CenterComment on above:Performed By: #### CMP, HSTROPN #### [facility] [address] [place] [address] Dr. Logan VegaGFR-NON AF FIJIAN>60Normal>=60The [facility] CenterComment on above:Performed By: #### CMP, HSTROPN #### [facility] [address] [place] [address] Dr. Logan PayneGlobulin (S) [Mass/Vol]4.1 g/dLNormalThe [facility] CenterComment on above:Performed By: #### CMP, HSTROPN #### [facility] [address] [place] [address] Dr. Logan PayneGlucose [Mass/Vol]141 mg/dLCritically tslu13-615Mrf [facility] CenterComment on above:Performed By: #### CMP, HSTROPN #### [facility] [address] [place] [address] Dr. Logan PaynePotassium [Moles/Vol]4.0 mmol/LNormal3.5-5.1The [facility] Comment on above:Performed By: #### CMP, HSTROPN #### [facility] [address] [place] [address] Dr. Logan PayneProtein [Mass/Vol]7.4 g/dLNormal6.4-8.2The [facility] Comment on above:Performed By: #### CMP, HSTROPN #### [facility] [address] [place] [address] Dr. Logan PayneSodium [Moles/Vol]135 mmol/LCritically dbr025-018Dye [facility] CenterComment on above:Performed By: #### CMP, HSTROPN #### [facility] [address] [place] [address] Dr. Logan PayneUrea nitrogen [Mass/Vol]16.0 mg/dLNormal7.0-18.0The [facility] CenterComment on above:Performed By: #### CMP, HSTROPN #### [facility] [address] [place] [address] Dr. Logan Bingham nitrogen/Creatinine [Mass ratio]19.3 mg/mgNoUniversity Hospitals Geneva Medical Centere [facility] CenterComment on above:Performed By: #### CMP, HSTROPN #### [facility] [address] [place] [address] Dr. Logan Amaro 25-30-5850FZW Coag (PPP) [Relative time]0.98 {INR} NormalThe [facility] CenterComment on above:Performed By: #### TSH, BNP, CMP, LIPID, T7 #### [facility] [address] [place] [address] Dr. Logan Sena GUIDELINESSEE BELOWBarnesville HospitalComment on above:Result Comment: DESIRED INR: 2.0 - 3.0 CONDITIONS NOT LISTED BELOW 2.5 - 3.5 FOR PROSTHETIC HEART VALVE REPLACEMENT 2.5 - 3.5 RECURRENT THROMBOSIS Performed By: #### TSH, BNP, CMP, LIPID, T7 #### [facility] [address] [place] [address] Dr. Logan PaynePT Coag (PPP) [Time]10.6 sNormal9.0-11.6The [facility] Comment on above:Performed By: #### TSH, BNP, CMP, LIPID, T7 #### [facility] [address] [place] [address] Dr. Logan Martell 12-37-0803oMZQ Coag (Bld) [Time]30.0 hLaceud96.3-36.2The [facility] CenterComment on above:Performed By: #### TSH, BNP, CMP, LIPID, T7 #### [facility] [address] [place] [address] Dr. Logan Armas, HIGH SENSITIVITYon 04-29-8410LORPDT3634.4 pg/mL Critically high4.0-51.3TOhioHealth Dublin Methodist HospitalComment on above:Result Comment: CUT-OFF POINTS HAVE BEEN ESTABLISHED BASED ON THE FOURTH UNIVERSAL DEFINITIONS OF MYOCARDIAL INFARCTION. THE UPPER REFERENCE LIMIT (URL) OF TROPONIN, DEFINED THE 99TH PERCENTILE OF cTnI DISTRIBUTION IN A REFERENCE POPULATION, HAS BEEN CONFIRMED THE DECISION THRESHOLD FOR ND DIAGNOSIS.Performed By: #### TSH, BNP, CMP, LIPID, T7 #### [facility] [address] [place] [address] Dr. Logan PayneHSTROP9385.6 pg/mLCritically high4.0-51.3TOhioHealth Dublin Methodist Hospital Comment on above:Result Comment: CUT-OFF POINTS HAVE BEEN ESTABLISHED BASED ON THE FOURTH UNIVERSAL DEFINITIONS OF MYOCARDIAL INFARCTION. THE UPPER REFERENCE LIMIT (URL) OF TROPONIN, DEFINED THE 99TH PERCENTILE OF cTnI DISTRIBUTION IN A REFERENCE POPULATION, HAS BEEN CONFIRMED THE DECISION THRESHOLD FOR ND DIAGNOSIS.Performed By: #### CMP, HSTROPN #### [facility] [address] [place] [address] Dr. Logan PayneTYPE AND SCREENon 42-04-1582FQZG AND SCREENNegativeNormalThe [facility] CenterComment on above:Performed By: #### TSH, BNP, CMP, LIPID, T7 #### [facility] [address] [place] [address] Dr. Logan Armas I High Sensitivityon 88-56-2913Mqxvvefc I High Nwwmudgckcq2450 pg/mLOff scale high0-15Doctors HospitalComment on above:Result Comment: Results called at 1303 on 06/09/22 PERFORMED BY: [address] [address] PATHOLOGIST CHIEF OPERATOR SYNTHESIS PILAR VILLARREAL M.D.Performed By: #### LIPID, A1C [facility] eA #### [address] [address] USATroponin I High Dbgrucmvyzl4233 pg/mLOff scale high0-15 Doctors HospitalComment on above:Result Comment: Results called at 1006 on 06/09/22 PERFORMED BY: [place] [address] PATHOLOGIST CHIEF OPERATOR SYNTHESIS PILAR VILLARREAL M.D.Performed By: #### LIPID, A1C [facility] eA #### [address] [address] USATroponin I High Ogjsdificmy5500 pg/mLOff scale high0-15 Doctors HospitalComment on above:Result Comment: Results called at 0710 on 06/09/22 PERFORMED BY: [address] [address] PATHOLOGIST CHIEF OPERATOR SYNTHESIS PILAR VILLARREAL M.D.Performed By: #### GLULS #### Point of Care testing ,Vit. B12/Folate Profileon 16-23-7369Fghfxplkl (Vitamin B12) [Mass/Vol]480 pg/mL Zswaro549-720UfnfadrdwDoctors HospitalComment on above:Order Comment: Comment addonPerformed By: #### GLULS #### Point of Care testing ,Folate> 22.3Normal>5.9Doctors HospitalComment on above:Order Comment: Comment addonResult Comment: Folate reference range: >5.9 ng/ml The WHO technical consultation on folate and vitamin b12 deficiencies has determined that folate concentrations less than 4 ng/ml are considered deficient. PERFORMED BY: [address] [place] [address] PATHOLOGIST CHIEF OPERATOR SYNTHESIS PILAR VILLARREAL M.D.Performed By: #### GLULS #### Point of Care testing ,BASIC METABOLIC PANELon 65-98-6044Klmhxct [Mass/Vol]9.1 mg/dLNormal8.6-10.3The [facility] HospitalComment on above:Order Comment: No: Do not add to previous drawPerformed By: #### 10369, [id number] #### [facility] [address] [place] [address], USAChloride [Moles/Vol]104 mmol/FDttbbw66-065Eba [facility] HospitalComment on above:Order Comment: No: Do not add to previous drawPerformed By: #### 15134, 30807 #### [facility] [address] [place] [address], USACO2 [Moles/Vol]22 mmol/DWrdjro43-36Ehz [facility] HospitalComment on above:Order Comment: No: Do not add to previous draw Performed By: #### 68110, 32474 #### [facility] [address] [place] [address], USACreatinine [Mass/Vol]0.80 mg/dLNormal0.60-1.20The [facility] HospitalComment on above:Order Comment: No: Do not add to previous drawPerformed By: #### 43780, 23348 #### [facility] [address] [place] [address], USAGFR/1.73 sq M.predicted among blacks MDRD (S/P/Bld) [Vol rate/Area]mL/min/{1.73_m2}Normal>60The [facility] Comment on above:Order Comment: No: Do not add to previous drawResult Comment: Calculation may not be valid for patients over 70 yearsPerformed By: #### 78642, 31909 #### [facility] [address] [place] [address], USAGFR/1.73 sq M.predicted among non-blacks MDRD (S/P/Bld) [Vol rate/Area]mL/min/{1.73_m2}Normal>60The [facility] Comment on above:Order Comment: No: Do not add to previous drawResult Comment: Calculation may not be valid for patients over 70 yearsPerformed By: #### 65018, 58216 #### [facility] [address] [place] [address], USAGlucose [Mass/Vol]99 mg/eWUfnwqb31-794Jdr [facility] HospitalComment on above:Order Comment: No: Do not add to previous drawPerformed By: #### 73118, 84988 #### [facility] [address] [place] [address], USAPotassium [Moles/Vol]4.2 mmol/LNormal3.5-5.1The [facility] HospitalComment on above:Order Comment: No: Do not add to previous drawPerformed By: #### 09754, 36705 #### [facility] [address] [place] [address], USASodium [Moles/Vol]137 mmol/JEwfrbb709-058Thv [facility] HospitalComment on above:Order Comment: No: Do not add to previous drawPerformed By: #### 99153, 16901 #### [facility] [address] [place] [address], USAUrea nitrogen [Mass/Vol]11 mg/dLNormal7-25The [facility] HospitalComment on above:Order Comment: No: Do not add to previous drawPerformed By: #### 37873, 64805 #### [facility] [address] [facility] [place] [address], USACBC COMPLETE BLOOD COUNTon 66-59-0815Ilnagesckoq distribution width (RBC) [Ratio]12.9 %Zpjemo73.5-15.0The [facility] HospitalComment on above:Order Comment: No: Do not add to previous draw Performed By: #### 22254 #### [facility] [address] [place] [address], USAHematocrit (Bld) [Volume fraction]42.7 %Odvwtm19.0-45.0The [facility] HospitalComment on above:Order Comment: No: Do not add to previous drawPerformed By: #### 62206 #### [facility] [address] [place] [address], [facility]LEY HOSPITALHemoglobin (Bld) [Mass/Vol]14.3 g/hUOhiwai05.0-15.0The [facility] HospitalComment on above:Order Comment: No: Do not add to previous drawPerformed By: #### 54541 #### [facility] [address] [place] [address], [facility] HOSPITALMCH (RBC) [Entitic mass]33.9 rqNfyx80.0-33.0The [facility] HospitalComment on above:Order Comment: No: Do not add to previous drawPerformed By: #### 24375 #### [facility] [address] [place] [address], [facility] HOSPITALMCHC (RBC) [Mass/Vol]33.5 g/pKBkcnuo49.0-35.0The [facility] HospitalComment on above:Order Comment: No: Do not add to previous drawPerformed By: #### 43801 #### [facility] [address] [place] [address], [facility] HOSPITALMCV (RBC) [Entitic vol]101.2 hNFzin72.0-98.0The [facility] HospitalComment on above:Order Comment: No: Do not add to previous drawPerformed By: #### 45477 #### [facility] [address] [place] [address], USANucleated RBC/100 WBC (Bld) [Ratio]0 %Normal0-0The [facility] HospitalComment on above:Order Comment: No: Do not add to previous drawPerformed By: #### 88648 #### [facility] [address] [place] [address], USAPLAT OMC543 10*3/fCVewilj043-923Ssh [facility] HospitalComment on above:Order Comment: No: Do not add to previous draw Performed By: #### 41685 #### [facility] [address] [place] [address], USARBC (Bld) [#/Vol]4.22 10*6/uLNormal3.80-5.00The [facility] HospitalComment on above:Order Comment: No: Do not add to previous drawPerformed By: #### 60848 #### [facility] [address] [place] [address], USAWBC (Bld) [#/Vol]11.25 10*3/uLHigh4.00-10.60The [facility] HospitalComment on above:Order Comment: No: Do not add to previous drawPerformed By: #### 85596 #### [facility] [address] [place] [address], USAHEMOGLOBIN A1Con 89-29-1041Vvxvxbr [Moles/Vol]128 mmol/L NormalThe [facility] HospitalComment on above:Order Comment: If not done in EDNo: Do not add to previous drawPerformed By: #### 06837 #### [facility] [address] [place] [address], UMTDaB6w (Bld) [Mass fraction]6.1 %High4.0-6.0The [facility] HospitalComment on above:Order Comment: If not done in EDNo: Do not add to previous drawPerformed By: #### 62972 #### [facility] [address] [place] [address], USAMAGNESIUM BLOODon 23-90-9496Rbziziuor [Mass/Vol]1.8 mg/dL Low1.9-2.7The [facility] HospitalComment on above:Order Comment: No: Do not add to previous drawPerformed By: #### 60405, 63053 #### [facility] [address] [place] [address], USAPORTABLE CHEST 1 VIEWon [id number] CHEST 1 VIEW [facility] Department of Radiology [address] [place] [id number] Patient Name: ABDIRAHMAN GOMEZ : 1940 Sex: F Age: Race: White Pt. Location: [id number] Patient Status: I Ordered Date: 11/25/2021 10:05:00 [...] edema. Electronically signed: Melania Lay. Transcribed by: [email or web address], User Resident: Electronically Signed by: MELANIA LAY @ 11/25/2021 10:44 AMNormalThe [facility] HospitalComment on above:Order Comment: Pneumothorax Cardiovascular Lab Reporton [id number] Lab ReportUnSal[facility] Patient Name: Abdirahman Gomez [facility] MR #: [id number] Physician: Sarabjit Vicente MD Department of Service Date: 11/24/2021 Medicine Birthdate: 1940 Division of Room #: 3AB 589094 Cardiology Adult Cardiovascular Services [facility] [address] [address] Cardiovascular Laboratory Report PACEMAKER IMPLANT PROCEDURE NOTE DATE OF PROCEDURE: 11/24/2021 PERFORMING PHYSICIAN: Dr. Sarabjit Vicente CONSENT: Patient LOCATION: EP Lab PROCEDURE PERFORMED: 1. Implantation of pacemaker ([employer]). 2. 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 She had syncope from this and subsequently was transferred here. Since the admission to [facility], she had a fairly recently [...] using modified seldinger technique using a 5 [place]ican micro-puncture needle on two occasions and 0.35 [...] pocket was created for the device. 6 [place] Safesheaths were placed over the wire. An active fixation [employer] pacing lead was then delivered through the 6Fsheath to the right ventricle. After confirmation of lead position on orthogonal views ([place] and SAMI) to confirm septal position, the screw was activated, and the lead was placed in the right ventricular mid cavity towards the septum. After confirmation of good sensing parameters, injury pattern and pacing thresholds, 10V pacing was done and no diaphragmatic stimulation was noted. It was then secured in the pocket using three 1-0 Silk sutures. Then an active fixation [employer] lead was delivered through the 6Fsheath to the right atrial appendage. After confirmation of lead position on orthogonal views ([place] and SAMI), the screw was activated. After confirmation of [...] immediate procedural complications were noted. Device info: [employer] Accolade MRI Model# L311 Serial# [id number] RA lead: Model# INGEVITY 7840 (45cms) Serial# [id number] SensinmV Threshold: 0.8V@0.4ms Impedance: 590 Ohms RV lead: Model# INGEVITY 7841 (52cms) Serial# [id number] Sensin.5mV Threshold: 0.4V@0.4ms Impedance: 1125 Ohms POST PROCEDURE EXAM: Patient was hemodynamically stable. COMPLICATIONS: None. ESTIMATED BLOOD LOSS: 15cc IMPRESSION: 1. Successful dual chamber pacemaker with excellent pacing and sensing parameters. RECOMMENDATIONS: 1 Occlusive dressing to be removed after 2 weeks. 2. Do not wet the incision for 7 days. 3. No lifti (more content not included)...NormalThe [facility] HospitalAPTTon 82-88-2528kQAT Coag (Bld) [Time]30.9 sHlwofk71.0-35.0The [facility] HospitalComment on above:Order Comment: No: Do not add to previous drawResult Comment: ALL RESULTS MUST BE INTERPRETED WITH RESPECT TO BLOOD DRAWING ARTIFACT OR DILUTION ERROR OF ANTICOAGULANT AT THE TIME OF SAMPLING. THE APTT SHOULD NOT BE USED TO MONITOR UNFRACTIONATED HEPARIN THERAPY, THIS LABORATORY NO LONGER HAS AN ESTABLISHED THERAPEUTIC RANGE BASED ON THE APTT. IT IS RECOMMENDED THAT THE UFH - HEPARIN ASSAY (ANTI-XA ACTIVITY) BE USED FOR THIS PURPOSE.Performed By: #### [id number] #### [facility] [address] [place] [address], USABASIC METABOLIC PANELon 62-78-3115Ejdxkkh [Mass/Vol]9.5 mg/dLNormal8.6-10.3The [facility] HospitalComment on above:Order Comment: No: Do not add to previous drawPerformed By: #### 07522, 09847 #### [facility] [address] [place] [address], USAChloride [Moles/Vol]104 mmol/AIrnewo62-071Pth [facility] HospitalComment on above:Order Comment: No: Do not add to previous drawPerformed By: #### 50560, 97142 #### [facility] [address] [place] [address], USACO2 [Moles/Vol]21 mmol/OJkzvnm55-34Gao [facility] HospitalComment on above:Order Comment: No: Do not add to previous draw Performed By: #### 37484, 33383 #### [facility] [address] [place] [address], USACreatinine [Mass/Vol]0.80 mg/dLNormal0.60-1.20The [facility] HospitalComment on above:Order Comment: No: Do not add to previous drawPerformed By: #### 50338, 60137 #### [facility] [address] [place] [address], USAGFR/1.73 sq M.predicted among blacks MDRD (S/P/Bld) [Vol rate/Area]mL/min/{1.73_m2}Normal>60The [facility] Comment on above:Order Comment: No: Do not add to previous drawResult Comment: Calculation may not be valid for patients over 70 yearsPerformed By: #### 82541, 66903 #### [facility] [address] [place] [address], USAGFR/1.73 sq M.predicted among non-blacks MDRD (S/P/Bld) [Vol rate/Area]mL/min/{1.73_m2}Normal>60The [facility] Comment on above:Order Comment: No: Do not add to previous drawResult Comment: Calculation may not be valid for patients over 70 yearsPerformed By: #### 19835, 99862 #### [facility] [address] [place] [address], USAGlucose [Mass/Vol]109 mg/pVGgff06-510Bsl [facility] HospitalComment on above:Order Comment: No: Do not add to previous drawPerformed By: #### 15318, 16787 #### [facility] [address] [place] [address], USAPotassium [Moles/Vol]3.9 mmol/LNormal3.5-5.1The [facility] HospitalComment on above:Order Comment: No: Do not add to previous drawPerformed By: #### 46589, 04873 #### [facility] [address] [place] [address], USASodium [Moles/Vol]138 mmol/FOyshna277-966Yoq [facility] HospitalComment on above:Order Comment: No: Do not add to previous drawPerformed By: #### 62074, 18416 #### [facility] [address] [place] [address], USAUrea nitrogen [Mass/Vol]15 mg/dLNormal7-25The [facility] HospitalComment on above:Order Comment: No: Do not add to previous drawPerformed By: #### 81147, 62011 #### [facility] [address] [place] [address], USACBC COMPLETE BLOOD COUNTon 07-06-6709Kiugwleteed distribution width (RBC) [Ratio]12.8 %Admdol66.5-15.0The [facility] HospitalComment on above:Order Comment: No: Do not add to previous draw Performed By: #### 59872 #### [facility] [address] [place] [address], USAHematocrit (Bld) [Volume fraction]41.9 %Kizfcj33.0-45.0The [facility] HospitalComment on above:Order Comment: No: Do not add to previous drawPerformed By: #### 75591 #### [facility] [address] [place] [address], USAHemoglobin (Bld) [Mass/Vol]14.1 g/lMQhgvzq25.0-15.0The [facility] HospitalComment on above:Order Comment: No: Do not add to previous drawPerformed By: #### 17512 #### [facility] [address] [place] [address], USAMCH (RBC) [Entitic mass]34.0 naYfoh40.0-33.0The [facility] HospitalComment on above:Order Comment: No: Do not add to previous drawPerformed By: #### 20687 #### [facility] [address] [place] [address], USAMCHC (RBC) [Mass/Vol]33.7 g/wRFnuafe06.0-35.0The [facility] HospitalComment on above:Order Comment: No: Do not add to previous drawPerformed By: #### 73674 #### [facility] [address] [place] [address], M[facility]LEY HOSPITALMCV (RBC) [Entitic vol]101.0 wQAvne34.0-98.0The [facility] HospitalComment on above:Order Comment: No: Do not add to previous drawPerformed By: #### 82269 #### [facility] [address] [place] [address], USANucleated RBC/100 WBC (Bld) [Ratio]0 %Normal0-0The [facility] HospitalComment on above:Order Comment: No: Do not add to previous drawPerformed By: #### 98939 #### [facility] [address] [place] [address], USAPLAT KCP913 10*3/xMAjkmre470-056Mmk [facility] HospitalComment on above:Order Comment: No: Do not add to previous draw Performed By: #### 90373 #### [facility] [address] [place] [address], USARBC (Bld) [#/Vol]4.15 10*6/uLNormal3.80-5.00The [facility] HospitalComment on above:Order Comment: No: Do not add to previous drawPerformed By: #### 62257 #### [facility] [address] [place] [address], USAWBC (Bld) [#/Vol]9.49 10*3/uLNormal4.00-10.60The [facility] HospitalComment on above:Order Comment: No: Do not add to previous drawPerformed By: #### 78168 #### [facility] [address] [place] [address], USAMAGNESIUM BLOODon 47-79-8870Ufumiaotc [Mass/Vol]2.0 mg/dL Normal1.9-2.7The [facility] HospitalComment on above:Order Comment: No: Do not add to previous drawPerformed By: #### 57163, 26818 #### [facility] [address] [place] [address], USAPOC SARS COV2 ANTIGEN NEGATIVEon 85-31-7102UVM SARS COV2 ANTIGEN NEGNegativeNormalNEGATIVEThe [facility] HospitalComment on above:Result Comment: Negative results should be treated as presumptive and [...] antigen from SARS-CoV-2 in direct nasopharyngeal swab (REMEDIATION CONSULTANT) specimens from individuals who are suspected of [...] Waiver, Certificate of Compliance, or Certificate of Accreditation.Performed By: #### 45862 #### [facility] [address] [place] [address], USAPROTHROMBIN TIMEon 76-13-2128HMY Coag (PPP) [Relative time] 1.03 {INR}Normal0.91-1.16The [facility] HospitalComment on above:Order Comment: No: Do not add to previous drawResult Comment: ACCCP RECOMMENDED INR FOR WARFARIN THERAPY ------- CONDITION INR PROPHYLAXIS OF VENOUS THROMBOSIS 2-3 (HIGH-RISK SURGERY) TREATMENT OF VENOUS THROMBOSIS 2-3 TREATMENT OF PULMONARY EMBOLISM 2-3 PREVENTION OF SYSTEMIC EMBOLISM: 2-3 ACUTE MYOCARDIAL INFARCTION TISSUE HEART VALVES VALVULAR HEART DISEASE ATRIAL FIBRILLATION RECURRENT SYSTEMIC EMBOLISM MECHANICAL HEART VALVE 2.5-3.5 FROM: ORAL ANTICOAGULANTS. MECHANISM OF ACTION, CLINICAL EFFECTIVENESS, AND OPTIMAL THERAPEUTIC RANGE. CHEST 1995;108:231S-246S.Performed By: #### 34864 #### [facility] [address] [facility] [place] [address], USAPT Coag (PPP) [Time]13.5 xQdxwul75.3-14.8The [facility] HospitalComment on above:Order Comment: No: Do not add to previous drawResult Comment: ALL RESULTS MUST BE INTERPRETED WITH RESPECT TO BLOOD DRAWING ARTIFACT OR DILUTION ERROR OF ANTICOAGULANT AT THE TIME OF SAMPLING.Performed By: #### 24368 #### [facility] [address] [facility] [place] [address], USABASIC METABOLIC PANELon 81-10-1945Rpbhgfa [Mass/Vol]9.5 mg/dLNormal8.6-10.3The [facility] HospitalComment on above:Order Comment: No: Do not add to previous drawPerformed By: #### 34287, 95807, 23063 #### [facility] [address] [facility] [place] [address], USAChloride [Moles/Vol]104 mmol/RBqlbdm50-548Jcc [facility] HospitalComment on above:Order Comment: No: Do not add to previous drawPerformed By: #### 21965, 27388, 06556 #### [facility] [address] [place] [address], USACO2 [Moles/Vol]21 mmol/RXmthft17-75Nbg [facility] HospitalComment on above:Order Comment: No: Do not add to previous draw Performed By: #### 13464, 95297, 43089 #### [facility] [address] [place] [address], USACreatinine [Mass/Vol]0.98 mg/dLNormal0.60-1.20The [facility] HospitalComment on above:Order Comment: No: Do not add to previous drawPerformed By: #### 32954, 03042, 59336 #### [facility] [address] [place] [address], USAeGFR- non- Jhqlrrxy84 ml/min/1.73sq mAbnormal>60The [facility] HospitalComment on above:Order Comment: No: Do not add to previous drawResult Comment: Calculation may not be valid for patients over 70 yearsPerformed By: #### 32366, 62306, 35402 #### [facility] [address] [place] [address], USAGFR/1.73 sq M.predicted among blacks MDRD (S/P/Bld) [Vol rate/Area]mL/min/{1.73_m2}Normal>60The [facility] Comment on above:Order Comment: No: Do not add to previous drawResult Comment: Calculation may not be valid for patients over 70 yearsPerformed By: #### 15803, 31549, 38826 #### [facility] [address] [place] [address], USAGlucose [Mass/Vol]110 mg/jRPqdu04-214Woo [facility] HospitalComment on above:Order Comment: No: Do not add to previous drawPerformed By: #### 14213, 18606, 48510 #### [facility] [address] [facility] [place] [address], USAPotassium [Moles/Vol]4.9 mmol/LNormal3.5-5.1The [facility] HospitalComment on above:Order Comment: No: Do not add to previous drawPerformed By: #### 56332, 16530, 99922 #### [facility] [address] [facility] [place] [address], USASodium [Moles/Vol]137 mmol/UXtawfd792-076Wle [facility] HospitalComment on above:Order Comment: No: Do not add to previous drawPerformed By: #### 34394, 08911, 23711 #### [facility] [address] [facility] [place] [address], USAUrea nitrogen [Mass/Vol]18 mg/dLNormal7-25The [facility] HospitalComment on above:Order Comment: No: Do not add to previous drawPerformed By: #### 20603, 72129, 24871 #### [facility] [address] [facility] [place] [address], [facility] HOSPITALCBC W/DIFFon 14-34-3412BIZ IMM GRANS0.1 10*3/uLNormal 0.0-0.2The [facility] HospitalComment on above:Performed By: #### 13545 #### [facility] [address] [facility] [place] [address], USAABS NEUTROPHILS6.8 10*3/uLNormal1.6-7.6The [facility] HospitalComment on above:Performed By: #### 16467 #### [facility] [address] [facility] [place] [address], USABasophils (Bld) [#/Vol]0.1 10*3/uLNormal0.0-0.2The [facility] HospitalComment on above:Performed By: #### 55969 #### [facility] [address] [facility] [address], USABasophils/100 WBC (Bld)0.8 %Normal0.0-1.0The [facility] HospitalComment on above:Performed By: #### 07973 #### [facility] [address] [facility] [place] [address], USAEosinophils (Bld) [#/Vol]0.4 10*3/uLNormal0.0-0.5The [facility] HospitalComment on above:Performed By: #### 26195 #### [facility] [address] [facility] [place] [address], USAEosinophils/100 WBC (Bld)3.6 %Normal0.0-6.0The [facility] HospitalComment on above:Performed By: #### 42089 #### [facility] [address] [facility] [place] [address], USAErythrocyte distribution width (RBC) [Ratio]12.6 %Normal 11.5-15.0The [facility] HospitalComment on above:Performed By: #### 67580 #### [facility] [address] [facility] [place] [address], USAHematocrit (Bld) [Volume fraction]42.3 %Prnmcn85.0-45.0The [facility] HospitalComment on above:Performed By: #### 21417 #### [facility] [address] [place] [address], USAHemoglobin (Bld) [Mass/Vol]14.9 g/pCPgarvr76.0-15.0The [facility] HospitalComment on above:Performed By: #### 76687 #### [facility] [address] [place] [address], USAIMMATURE GRANS0.5 %Normal0.0-1.0The [facility] HospitalComment on above:Performed By: #### 57439 #### [facility] [address] [place] [address], USALymphocytes (Bld) [#/Vol]2.3 10*3/uLNormal1.2-4.0The [facility] HospitalComment on above:Performed By: #### 76015 #### [facility] [address] [place] [address], USALymphocytes/100 WBC (Bld)21.8 %Ytkltj55.0-45.0The [facility] HospitalComment on above:Performed By: #### 47509 #### [facility] [address] [place] [address], M[facility]ILL[facility] VALLEY HOSPITALMCH (RBC) [Entitic mass]34.3 vmNwkj58.0-33.0The [facility] HospitalComment on above:Performed By: #### 21384 #### [facility] [address] [place] [address], M[facility]ILL[facility] VALLEY HOSPITALMCHC (RBC) [Mass/Vol]35.2 g/bSIpcv68.0-35.0The [facility] HospitalComment on above:Performed By: #### 77431 #### [facility] [address] [place] [address], M[facility] VALLEY HOSPITALMCV (RBC) [Entitic vol]97.2 iMJovzeg51.0-98.0The [facility] HospitalComment on above:Performed By: #### 93665 #### [facility] [address] [place] [address], USAMonocytes (Bld) [#/Vol]0.8 10*3/uLNormal0.1-1.0The [facility] HospitalComment on above:Performed By: #### 56255 #### [facility] [address] [place] [address], USAMONOS7.8 %Normal5.0-12.0The [facility] HospitalComment on above:Performed By: #### 47553 #### [facility] [address] [place] [address], USANeutrophils/100 WBC (Bld)65.5 %Djpuwa24.0-72.0The [facility] HospitalComment on above:Performed By: #### 48873 #### [facility] [address] [place] [address], USANucleated RBC/100 WBC (Bld) [Ratio]0 %Normal0-0The [facility] HospitalComment on above:Performed By: #### 32958 #### [facility] [address] [place] [address], USAPLAT CBT359 10*3/yWEgvdls388-572Rde [facility] HospitalComment on above:Performed By: #### 11099 #### [facility] [address] [place] [address], USARBC (Bld) [#/Vol]4.35 10*6/uLNormal3.80-5.00The [facility] HospitalComment on above:Performed By: #### 09774 #### [facility] [address] [place] [address], USAWBC (Bld) [#/Vol]10.35 10*3/uLNormal4.00-10.60The [facility] HospitalComment on above:Performed By: #### 62409 #### [facility] [address] [place] [address], USAMAGNESIUM BLOODon 59-52-6224Grjnrsvey [Mass/Vol]2.1 mg/dL Normal1.9-2.7The [facility] HospitalComment on above:Order Comment: No: Do not add to previous drawPerformed By: #### 98515, 77331, 40630 #### [facility] [address] [place] [address], USATROPONIN-Ion 27-66-9751Yghnyxup I.cardiac [Mass/Vol]0.00 ng/mLNormal0.00-0.04The [facility] HospitalComment on above: Order Comment: No: Do not add to previous drawResult Comment: REFERENCE RANGES: 0.00 - 0.04 ng/ml NORMAL 0.05 - 0.50 ng/ml INDETERMINATE > 0.50 ng/ml CONSISTENT WITH AN M.I.Performed By: #### 50832, 76742, 50341 #### [facility] [address] [place] [address], USATroponin I.cardiac [Mass/Vol]0.01 ng/mLNormal0.00-0.04The [facility] HospitalComment on above:Order Comment: No: Do not add to previous drawResult Comment: REFERENCE RANGES: 0.00 - 0.04 ng/ml NORMAL 0.05 - 0.50 ng/ml INDETERMINATE > 0.50 ng/ml CONSISTENT WITH AN M.I.Performed By: #### 32919 #### [facility] [address] [facility] [address], USAECHOCARDIO M/2D COMPLETEon 63-45-2338UISYEPNPCI M/2D COMPLETEPatient: ABDIRAHMAN GOMEZ Exam Date: 11/05/2021 : 1940 Gender:F Ordering : VENUS TONG Admission #: [id number] Family : DR IRISH FAUSTIN . Order #: [id number] CLICK HERE TO VIEW EXAM ECHOCARDIOGRAM REPORT [...] by: Kirk Lopez M.D. on 11/06/2021 at 13:18[facility] S[facility] 3D MILANA CADon 70-32-2986JI MAMM SCREEN 3D MILANA CADPatient: ABDIRAHMAN GOMEZ Exam Date: 10/27/2021 : 1940 Gender:F Ordering : DR IRISH FAUSTIN . Admission #: [id number] Family : Order #: [id number] CLICK HERE TO VIEW EXAM RADIOLOGY REPORT [...] Treatments None Family Cancers None LOCATION: [facility] BREAST COMPOSITION: Almost entirely fatty. [...] by: Brie Partida MD on 10/27/2021 at 11:44[facility] INSULINon 79-17-7905Ngsfujo61.1 uIU/mLNormal2.6-24.9The [facility] CenterComment on above:Performed By: #### INSULIN #### [facility] [address] [place] [address] Dr. Logan Quick 45-50-4100Hjthmshfiti peptide B (Bld) [Mass/Vol]350.0 pg/mL Normal<=1,800.0The [facility] CenterComment on above:Performed By: #### TSH, BNP, CMP, LIPID, T7 #### [facility] [address] [place] [address] Dr. Logan Cain AUTO DIFFon 13-96-9118HFXD #0.1 103/ulNormal0.0-0.1The [facility] CenterComment on above:Performed By: #### TSH, BNP, CMP, LIPID, T7 #### [facility] [address] [place] [address] Dr. Logan PayneBasophils/100 WBC (Bld)1.1 %Normal0.2-2.0The [facility] Comment on above:Performed By: #### TSH, BNP, CMP, LIPID, T7 #### [facility] [address] [place] [address] Dr. Logan Coy #0.3 103/ulNormal0.0-0.7The [facility] CenterComment on above: Performed By: #### TSH, BNP, CMP, LIPID, T7 #### [facility] [address] [place] [address] Dr. Logan Vegaosinophils/100 WBC (Bld)2.8 %Normal0.9-7.0The [facility] Comment on above:Performed By: #### TSH, BNP, CMP, LIPID, T7 #### [facility] [address] [place] [address] Dr. Logan Vegarythrocyte distribution width (RBC) [Ratio]12.9 %Vytyqd40.0-15.0 The [facility] CenterComment on above:Performed By: #### TSH, BNP, CMP, LIPID, T7 #### [facility] [address] [place] [address] Dr. Logan PayneHematocrit (Bld) [Volume fraction]46.6 %Frueac31.0-48.0The [facility] CenterComment on above:Performed By: #### TSH, BNP, CMP, LIPID, T7 #### [facility] [address] [place] [address] Dr. Logan PayneHemoglobin (Bld) [Mass/Vol]15.0 g/mUUygihi39.0-16.0The [facility] CenterComment on above:Performed By: #### TSH, BNP, CMP, LIPID, T7 #### [facility] [address] [place] [address] Dr. Logan PayneIG #0.05 10e3/ulCritically high0.00-0.03The [facility] Comment on above:Performed By: #### TSH, BNP, CMP, LIPID, T7 #### [facility] [address] [place] [address] Dr. Logan PayneIG %0.5 %Normal0.0-0.5The [facility] CenterComment on above: Performed By: #### TSH, BNP, CMP, LIPID, T7 #### [facility] [address] [place] [address] Dr. Logan Chamorro #2.8 103/ulNormal1.2-3.8The [facility] CenterComment on above:Performed By: #### TSH, BNP, CMP, LIPID, T7 #### [facility] [address] [place] [address] Dr. Logan Monroehocytes/100 WBC (Bld)27.4 %Zsreli06.5-60.0The [facility] CenterComment on above:Performed By: #### TSH, BNP, CMP, LIPID, T7 #### [facility] [address] [place] [address] Dr. Logan Grayson DIFF REQNONormalThe [facility] CenterComment on above: Performed By: #### TSH, BNP, CMP, LIPID, T7 #### [facility] [address] [place] [address] Dr. Logan Hampton (RBC) [Entitic mass]33.9 kyCpenfn61.7-34.0The [facility] CenterComment on above:Performed By: #### TSH, BNP, CMP, LIPID, T7 #### [facility] [address] [place] [address] Dr. Logan Hampton (RBC) [Mass/Vol]32.2 g/rPEeldar87.9-35.2The [facility] Rehabilitationment on above:Performed By: #### TSH, BNP, CMP, LIPID, T7 #### [facility] [address] [place] [address] Dr. Logan Hampton (RBC) [Entitic vol]105.2 fLCritically high81.0-99.0The [facility] on above:Performed By: #### TSH, BNP, CMP, LIPID, T7 #### [facility] [address] [place] [address] Dr. Logan Gilman #0.7 103/ulNormal0.3-0.8The [facility] CenterComment on above:Performed By: #### TSH, BNP, CMP, LIPID, T7 #### [facility] [address] [place] [address] Dr. Logan Oneillocytes/100 WBC (Bld)7.2 %Normal1.7-12.0The [facility] Comment on above:Performed By: #### TSH, BNP, CMP, LIPID, T7 #### [facility] [address] [place] [address] Dr. Logan Mccall #6.3 103/ulNormal1.4-6.5The [facility] CenterComment on above:Performed By: #### TSH, BNP, CMP, LIPID, T7 #### [facility] [address] [place] [address] Dr. Logan Petersutrophils/100 WBC (Bld)61.0 %Iguena97.0-75.0The [facility] CenterComment on above:Performed By: #### TSH, BNP, CMP, LIPID, T7 #### [facility] [address] [place] [address] Dr. Logan Reynolds mean volume (Bld) [Entitic vol]9.3 fLCritically low 9.5-13.5The [facility] CenterComment on above:Performed By: #### TSH, BNP, CMP, LIPID, T7 #### [facility] [address] [place] [address] Dr. Logan PaynePLT245 103/kwYyyfjx833-057Qjj [facility] CenterComment on above: Performed By: #### TSH, BNP, CMP, LIPID, T7 #### [facility] [address] [place] [address] Dr. Logan ChandlerC4.43 106/ulNormal4.20-5.40The [facility] CenterComment on above:Result Comment: Macrocytosis 1+Performed By: #### TSH, BNP, CMP, LIPID, T7 #### [facility] [address] [place] [address] Dr. Logan PayneWBC10.3 103/ulNormal4.0-11.0The [facility] CenterComment on above:Performed By: #### TSH, BNP, CMP, LIPID, T7 #### [facility] [address] [address] [address] Logan Lopez THYROXINE INDEX T7on 48-88-3905XGL1.01NoGreene Memorial HospitalComment on above:Performed By: #### TSH, BNP, CMP, LIPID, T7 #### [facility] [address] [address] [address] Logan PayneT3U31.0 %Slgolg11.5-40.5The [facility] CenterComment on above: Performed By: #### TSH, BNP, CMP, LIPID, T7 #### [facility] [address] [place] [address] Dr. Logan PayneT4 [Mass/Vol]9.70 ug/dLNormal5.53-11.00The [facility] Comment on above:Performed By: #### TSH, BNP, CMP, LIPID, T7 #### [facility] [address] [place] [address] Dr. Logan PayneGLYCOHEMOGLOBIN A1Con 07-94-8486HQX RECOMMENDATIONADA THERAPEUTIC TARGET 6.0 - 7.0 ACTION SUGGESTED > 7.0NoGreene Memorial HospitalComment on above:Performed By: #### A1C #### [facility] [address] [place] [address] Dr. Logan PayneGlucose [Mass/Vol]126 mg/dLNoGreene Memorial HospitalComment on above:Performed By: #### A1C #### [facility] [address] [place] [address] Dr. Logan PayneHbA1c (Bld) [Mass fraction]6.0 %Normal<=6.0The [facility] Comment on above:Performed By: #### A1C #### [facility] [address] [place] [address] Dr. Logan Velasquez 85-01-2382Zarh [Mass/Vol]90.0 ug/bNHfekkt15.0-170.0The [facility] CenterComment on above:Performed By: #### IRON #### [facility] [address] [place] [address] Dr. Logan TomasID PROFILEon 61-04-9602VVBD-HDL RATIO [facility] CenterComment on above:Result Comment: 3.3 - 4.4 LOW RISK 4.4 - 7.1 AVERAGE RISK 7.1 - 11.0 MODERATE RISK >11.0 HIGH RISKPerformed By: #### TSH, BNP, CMP, LIPID, T7 #### [facility] [address] [address] [address] Logan PayneCholesterol [Mass/Vol]209 mg/dLCritically high<=200The [facility] CenterComment on above:Performed By: #### TSH, BNP, CMP, LIPID, T7 #### [facility] [address] [place] [address] Dr. Logan Lindoesterol in HDL [Mass/Vol]62 mg/dLBarnesville Hospital Comment on above:Performed By: #### TSH, BNP, CMP, LIPID, T7 #### [facility] [address] [place] [address] Dr. Logan Lindoesterol in LDL [Mass/Vol]104.2 mg/dLBarnesville HospitalComment on above:Performed By: #### TSH, BNP, CMP, LIPID, T7 #### [facility] [address] [address] [address] Logan Graves.total/Cholesterol in HDL [Mass ratio]3.4 {ratio} NormalCleveland Clinic Lutheran HospitalCombeaumont hospital on above:Performed By: #### TSH, BNP, CMP, LIPID, T7 #### [facility] [address] [place] [address] Dr. Logan Drake NORMAL> or = 60 mg/dl - LOW CARDIOVASCULAR RISK <40 mg/dl - HIGH CARDIOVASCULAR RISKBarnesville HospitalCombeaumont hospital on above:Performed By: #### TSH, BNP, CMP, LIPID, T7 #### [facility] [address] [place] [address] Dr. Logan Zavala CALC NORMALSEE [facility] Greene MemorialComment on above:Result Comment: <100 mg/dl OPTIMAL 100 - 129 mg/dl NEAR OR ABOVE OPTIMAL 130 - 159 mg/dl BORDERLINE HIGH 160 - 189 mg/dl HIGH >190 mg/dl VERY HIGH Performed By: #### TSH, BNP, CMP, LIPID, T7 #### [facility] [address] [place], [place] [address] Dr. Logan PayneTriglyceride [Mass/Vol]214 mg/dLCritically high<=150The [facility] on above:Performed By: #### TSH, BNP, CMP, LIPID, T7 #### [facility] [address] [place], [place] [address] Dr. Logan PayneVLDL CALC42.8 mg/dLNormalThe [facility] CenterComment on above: Performed By: #### TSH, BNP, CMP, LIPID, T7 #### [facility] [address] [address] [address] Logan Stephens 14(COMP METB)on 33-24-9839Jskahne [Mass/Vol]4.3 g/dLNormal 3.5-5.0The [facility] on above:Performed By: #### TSH, BNP, CMP, LIPID, T7 #### [facility] [address] [place], [place] [address] Dr. Logan PayneAlbumin/Globulin [Mass ratio]1.0 {ratio}NormalThe [facility] on above:Performed By: #### TSH, BNP, CMP, LIPID, T7 #### [facility] [address] [place], [place] [address] Dr. Logan Sandoval [Catalytic activity/Vol]108 U/LPorgse15-686Ffk [facility] on above:Performed By: #### TSH, BNP, CMP, LIPID, T7 #### [facility] [address] [place], [place] [address] Dr. Logan Groves [Catalytic activity/Vol]59 U/LCritically high9-52The [facility] on above:Performed By: #### TSH, BNP, CMP, LIPID, T7 #### [facility] [address] [place], [place] [address] Dr. Logan Lee gap [Moles/Vol]16.0 mmol/LNormalThe [facility] Comment on above:Performed By: #### TSH, BNP, CMP, LIPID, T7 #### [facility] [address] [address] [address] Logan PayneAST [Catalytic activity/Vol]52 U/LCritically ckcb14-07Ryr [facility] CenterComment on above:Performed By: #### TSH, BNP, CMP, LIPID, T7 #### [facility] [address] [address] [address] Logan PayneBilirubin [Mass/Vol]0.3 mg/dLNormal0.2-1.3The [facility] Comment on above:Performed By: #### TSH, BNP, CMP, LIPID, T7 #### [facility] [address] [place] [address] Dr. Logan PayneCalcium [Mass/Vol]9.9 mg/dLNormal8.4-10.2[facility] Comment on above:Performed By: #### TSH, BNP, CMP, LIPID, T7 #### [facility] [address] [place] [address] Dr. Logan PayneChloride [Moles/Vol]105 mmol/GFvhagz37-408EonCleveland Clinic Lutheran Hospital Comment on above:Performed By: #### TSH, BNP, CMP, LIPID, T7 #### [facility] [address] [place] [address] Dr. Logan PayneCO2 [Moles/Vol]21.6 mmol/LCritically low22.0-30.0The [facility] CenterComment on above:Performed By: #### TSH, BNP, CMP, LIPID, T7 #### [facility] [address] [place] [address] Dr. Logan PayneCreatinine [Mass/Vol]1.01 mg/dLNormal0.52-1.04The [facility] CenterComment on above:Performed By: #### TSH, BNP, CMP, LIPID, T7 #### [facility] [address] [place] [address] Dr. Ford ChangEGFR-AF FIJIAN>60Normal>=60The [facility] CenterComment on above:Performed By: #### TSH, BNP, CMP, LIPID, T7 #### [facility] [address] [address] [address] Logan VegaGFR-NON AF YCUYMFUX03 mL/min/1.55h9Athjscqaeb low>=60The [facility] on above:Performed By: #### TSH, BNP, CMP, LIPID, T7 #### [facility] [address] [address] [address] Logan PayneGlobulin (S) [Mass/Vol]4.1 g/dLNormalThe [facility] CenterCombeaumont hospital on above:Performed By: #### TSH, BNP, CMP, LIPID, T7 #### [facility] [address] [place] [address] Dr. Logan PayneGlucose [Mass/Vol]117 mg/dLCritically fcpk66-454Day [facility] on above:Performed By: #### TSH, BNP, CMP, LIPID, T7 #### [facility] [address] [place] [address] Dr. Logan PaynePotassium [Moles/Vol]4.6 mmol/LNormal3.4-5.0The [facility] Comment on above:Performed By: #### TSH, BNP, CMP, LIPID, T7 #### [facility] [address] [place] [address] Dr. Logan PayneProtein [Mass/Vol]8.4 g/dLCritically high6.1-8.2The [facility] Rehabilitationment on above:Performed By: #### TSH, BNP, CMP, LIPID, T7 #### [facility] [address] [place] [address] Dr. Logan PayneSodium [Moles/Vol]138 mmol/RHubngg741-426Bth [facility] Comment on above:Performed By: #### TSH, BNP, CMP, LIPID, T7 #### [facility] [address] [place] [address] Dr. Logan PayneUrea nitrogen [Mass/Vol]18.0 mg/dLCritically high7.0-17.0The [facility] Rehabilitationment on above:Performed By: #### TSH, BNP, CMP, LIPID, T7 #### [facility] [address] [address] [address] Logan PayneUrea nitrogen/Creatinine [Mass ratio]17.8 mg/mgBarnesville HospitalCombeaumont hospital on above:Performed By: #### TSH, BNP, CMP, LIPID, T7 #### [facility] [address] [address] [address] Logan Walters 29-87-6482WIQ6.510 uIU/mLNormal0.470-4.680[facility] HospitalCombeaumont hospital on above:Performed By: #### TSH, BNP, CMP, LIPID, T7 #### [facility] [address] [place] [address] Dr. Logan Brown [facility]terson [facility] CenterComment on above: Result Comment: <0.34 UIU/ml HYPERTHYROID 0.34-5.60 UIU/ml EUTHYROID >5.60 UIU/ml HYPOTHYROIDPerformed By: #### TSH, BNP, CMP, LIPID, T7 #### [facility] [address] [place] [address] Dr. Logan Payne Vital Signs Date TimeVital SignValuePerforming DcyrvaaveWcmmvdid00-05-5697 11:18-0500Body yhsytvgxsmv49.8 [degF]MD Irish Faustin Work Phone: [phone] [place], [place] 6004201-12-2023 11:18-0500 Diastolic blood oscrhtza51 mm[Hg]MD Irish Faustin Work Phone: [phone]01-12-2023 11:18-0500 Heart rate69 /minMD Irish Faustin Work Phone: [phone]01-12-2023 11:18-0500 SaO2% (BldA) [Mass fraction]94 %MD Irish Faustin Work Phone: [phone]01-12-2023 11:18-0500 Systolic blood hjrepyea618 mm[Hg]MD Irish Faustin Work Phone: [phone]01-12-2023 04:17-0500 Respiratory rate18 /minMD Irish Hoy Work Phone: [phone] [place], [place] 1297901-11-2023 07:18-0500 Body hwqfko358.48 cmMD Irish Hoy Work Phone: [phone])[address] [place], [place] 1297901-09-2023 11:19-0500 Body rzqshi40.2 kgMD Irish Hoy Work Phone: [phone])[address] [place], [place] 1297901-03-2023 16:00-0500 Body ldsscjinisl81.6 [degF]MD Irish Faustin Work Phone: [phone] [place], [place] 1297901-03-2023 16:00-0500 Diastolic blood aszctmkm25 mm[Hg]MD Irish Faustin Work Phone: [phone] [place], [place] 1297901-03-2023 16:00-0500 Heart rate72 /minMD Irish Hoy Work Phone: [phone])[address] [place], [place] 1297901-03-2023 16:00-0500 Respiratory rate16 /minMD Irish Hoy Work Phone: [phone])[address] [place], [place] 1297901-03-2023 16:00-0500 SaO2% (BldA) [Mass fraction]96 %MD Irish Faustin Work Phone: [phone] [place], [place] 1297901-03-2023 16:00-0500 Systolic blood qnjzfaqa858 mm[Hg]MD Irish Faustin Work Phone: [phone])[address] [place], [place] 129[address]01-03-2023 06:00-0500 Body xngaiw64.8 kgMD Irish Hoy Work Phone: [phone])[address] [place], [place] 1297912-29-2022 15:23-0500 Body pfefzw800.48 cmMD Irish Hoy Work Phone: [phone] [place], [place] 129[address]12-27-2022 12:00-0500 Inhaled oxygen flow rate2 L/minMD Coburn Hoy Work Phone: [phone] [place] [address] Encounters Encounter DateEncounter TypeCare ProviderFacilityStart: 84-24-5157hhtcybdqtwKCOL [facility]: 01-23-2025 End: 32-60-2378myojpcmjuyKKGOChillicothe Hospitaltart: 68-63-6751zmqkvedjlqVDNV [facility]: 11-14-4162kxcvoaaiheZVRLSelect Medical Specialty Hospital - Youngstowntart: 06-27-2024 End: 19-14-6584kciqrqksumNLXUSelect Medical Specialty Hospital - Youngstowntart: 04-17-2024 End: 45-23-7308qjsmjdrifaCWNW [facility]: 06-16-2022 End: 67-86-1802Wrxifbndqu and management of inpatientJoseph Austyn [facility]: 06-16-2022 End: 27-16-9130Dxtymgwqpj and management of inpatientMD Irish Hoy Work Phone: [facility] Work Phone: Start: 24-89-2894qwxmcaklriMb. Mooraf Yanicki Facility:9090Start: 25-84-1177xtrhucjmutFd. Irish FaustinFacility:[facility] Start: 64-65-4966hfhpryiqzlJn. Irish FaustinFacility:9090Start: 06-09-2022 End: 03-22-2743Jqrzlslfbj and management of inpatientAnoop Annia Facility:[facility]: 06-09-2022 End: 72-66-5221Xkliplfskt and management of inpatientMD Irish Hoy Work Phone: [facility] Work Phone: Start: 06-08-2022 End: 14-52-7237ugofchaljzLA IRISH HOYFacility:S7Exhzg: 10-80-6582tkssnhgswx VENUS TUCKERFacility:K8Utfnm: 27-91-0478pzcapdfxavWXZOHEV TUCKERFacility:H1 Start: 11-22-2021 End: 11-85-9230Pseuozpuev and management of inpatientPHYSICIAN UNKNOWN Facility:VTMCStart: 11-05-2021 End: 70-72-6951yixeccaxcbARBPGXH TUCKERFacility:K5Sccea: 10-27-2021 End: 73-51-0262pspjfniadkKT IRISH HOYFacility:Z3Tmxzj: 06-27-2021 End: 88-71-6051weyxenzeccQI IRISH HOYFacility:H1 Procedures DateProcedureProcedure DetailPerforming ClinicianStart: 45-78-1025Wstog X-ray of left hipMD Irish Hoy Work Phone: [phone]: 97-19-2266Ecupjqj ultrasonography of bilateral carotid arteriesMD Irish Hoy Work Phone: [phone]: 51-22-7810Mcjdrplb resonance angiography of head without contrastMD Irish Hoy Work Phone: Start: 50-55-3973HZB of headMD Irish Hoy Work Phone: Start: 96-49-3065Swnyq chest X-rayMD Irish Hoy Work Phone: Plan of Treatment DateCare ActivityDetailAuthorStart: 28-19-9581EwbuyeouuDoctors Hospital Start: 53-03-6449IcqxbkthgUniversity Hospitals Geneva Medical Centertart: 74-13-7116Vykyipcs admissionUniversity Hospitals Geneva Medical Centertart: 88-10-2740Atutdsfp to clinical allergistUniversity Hospitals Geneva Medical Centertart: 36-84-3746OdzqthaurUniversity Hospitals Geneva Medical Centertart: 71-52-5796Rxikspo ultrasonography of bilateral carotid arteriesUS carotid doppler [facility]ert[facility]: 06-12-2022 US.doppler Carotid arteries - bilateralUniversity Hospitals Geneva Medical Centertart: 81-11-7530Reqtknnt admissionDoctors HospitalPatient Education Stroke (DC)[facility] Work Phone: [facility] referralU[facility] Work Phone: [facility] Payers DatePayer CategoryPayerPolicy ID2022Self-[id number] [id number] 1960Private Health [id number] 40-78-5302Mxjw-[id number] 2.16.840.1.113981.3.57[id number] 2.16.840.1.863070.3.57[id number] 2.16.840.1.745099.3.57[id number] 2.16.840.1.797552.3.57[id number] 2.16.840.1.847632.3.57[id number] 2.16.840.1.251127.3.57[id number] 2.16.840.1.276288.3.57[id number] 2.16.840.1.010550.3.57[id number] 2.16.840.1.2[id number] 2.16.840.1.110861.3.579.2.531 [id number] 2.16.840.1.163885.3.579.2.531 Social History DateTypeDetailFacilityStart: 06-09-2022 End: 32-86-5805Ymjxpbh smoking status NHISNever smoked tobacco (finding) [facility]ertart: 48-52-5717Dns Assigned At [facility] Goals DatePatient GoalDesired Activity/State Functional Status HeyqQqqllywkawKkagktDscqrzgv67-30-0971Vwiycytunr statusPatient at Baseline [facility] Work Phone: [phone]rzcea statusPatient is Progressing Toward [facility] Work Phone: Mental Status HsjxGcxgmuscsdLuspiyQmztklsi22-05-9489Svtucwedg functionCognitive Status Patient at [facility] Work Phone: [phone]hvfbni functionCognitive Status Patient is Progressing Toward [facility] Work Phone: Clinical Notes 11-26-2021 to 04-17-2024 Note Date & EafgTxgzSlmqeulb76-12-8738 [facility] Chief Complaint: Patient here [...] in the morning., Disp: , Rfl: HYDROcodone-acetaminophen ([place]) 5-325 mg tablet, Take 5-325 tablets by [...] 10 mg tablet, Disp: , Rfl: omega 6-azh-xcr-fish oil (Fish OiL) 1,000 mg (120 mg-180 [...] present, no carotid brui (more content not included)...[facility]01-11-2023 Discharge summary Author Stiven Zaman [facility] June 26, 2022 3:07pmNote Date/TimeJanuary 2022 12:11[place] [address] Discharge Summary Signed Patient: Abdirahman Gomez MR#: [id number] : 1940 Acct:[id number] Age/Sex: 81 / F Adm Date: 3 Loc: 5T Room: 2T7140-[address]: Stiven Zaman MD Copies to: [...] lobe. She presented to outside facility around [place] with several days of generalized weakness. Her troponins were elevated. [facility] was transferred to [facility]. Cardiology was consulted, did not feel [...] blood in the stool on admission to [place], consistent with lower GI bleed. She was cleared to remain on Eliquis. Etiologylikely mild diverticular bleed. During rehab stay patient complained of left hip pain from a fall she sustained prior to admission.Left hip x-ray performed to rule out acute fracture, negative for acute abnormality. No further GI bleeding with continued Eliquis therapy. Otherwise, patient had an unremarkable rehabilitation course and near complete resolution of left-sided deficits. She is ambulatory with a cane for household and community distances, independent withbed mobility, transfers, and ADLs. She will be discharged home with [facility] home health services tomorrow. She already [...] alert, oriented x3, moves all extremities. Residual left- sidedweakness in upper and lower extremity. 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, unchanged Cranial Nerves: PERRL Speech: speech normal Extrem Other: WNL Psych Appearance: grossly normal Mental Status: WNL Mood: congruent mood Affect: normal affect Speech and Movement: speech and movement normal Attitude: cooperative Insight: Good Judgment: Good Discharge Plan Discharge Plan Patient Disposition: Home Health [facility] Activity: Ambulate as Tolerated Diet: Low-Sodium and Low-Cholesterol Comment: Heart Healthy 3-4gm Sodium Additional Instructions: -Code Status: Full Code -Activity: Ambulate as tolerated -Diet: Heart Healthy 3-4gm Sodium, low cholesterol -Follow feeding strategies: Sit upright 90 degrees, pacing/slow rate, alternate liquids/solids. Your Home Health agency is [facility] ( ). They will contact you within 24 hours of discharge to schedule a day/time to meet with you at your home to establish care. You have been given prescriptions for new and/or needed medications. These prescriptions are fora one-time fill only, with no re-fills. For further re- fills going forward, you will need to address [...] remember to wear a mask to all appointments.If you develop any symptoms (cough, fever/chills, shortness [...] <Electronically signed by KIM Crowell> 06/25/22 1308 [facility] Work Phone: 1(100) 516-165401-11-2023 Hospital Discharge instructionsAmbulatory Orders* Initiate Home Health Time Frame: 06/24/22, Location: Determined By Patient Additional Instructions -Code Status: Full Code -Activity: Ambulate as tolerated -Diet: Heart Healthy 3-4gm Sodium, low cholesterol -Follow feeding strategies: Sit upright 90 degrees, pacing/slow rate, alternate liquids/solids. Your Home Health agency is [facility] ( ). They will contact you within [...] inform them prior to your appointment.[facility] Work Phone: 1(616) 545-959001-10-2023 Progress note Author Stiven Zaman [facility] June 23, 2022 9:35pmNote Date/TimeJanuary 2022 11:35[place] [address] Physiatry(Rehab) Progress Note Signed Patient: Abdirahman Gomez MR#: [id number] : 1940 Acct:[id number] Age/Sex: 81 / F Adm Date: 3 Loc: Room: 8Y2000-1 Type: ADM IN Attending Dr: Stiven Zaman [...] lobe. She presented to outside facility around [place] with several days of generalized weakness. Her troponins were elevated. She was transferred to [facility]. Cardiology was consulted, did not feel [...] blood in the stool on admission to [facility], consistent with lower GI bleed. She was [...] was able to do some stairs, ambulated 150feet without assistive device, contact-guard assist. Chronic conditions [...] alert, oriented x3, moves all extremities. Residual left- sidedweakness in upper and lower extremity. Neuropathy in [...] BID JAK Sennosides 2 tab 06/16/22 21:00 01/09/23 09:14 Sennosides 8.6 Mg Tablet PO 06/16/23 [...] Assessment/Plan <Lori Crowell, KIM - Last Filed: 06/22/22 11:45> Assessment/Plan (1) [...] tizanidine with h/o afib. Chronic pain received [place] 5/[address] Faustin. Will change from q4h to twice daily as at home. OARRS reviewed. Bowel and bladder: Continent. Skin: No pressure ulcers Sleep: Optimize sleep / wake. DVT prophylaxis: Covered with Eliquis. Functional status: Ambulatory. Needs assist. Left hemiplegia. Impaired endurance. Discharge planning: Home 7-10 days. I spent greater than 15 minutes for services, including csor-sq-rbxw encounter with the patient, discussion of the case, plan of care, and exam; and kgiquwq-tp-vflr activities, such as reviewing pertinent database consultant documentation, recent therapy notes, laboratory and radiology studies, and discussion of case with care team including physician, nursing, rehabilitation caseworker, and therapists. More than 50 % [...] tizanidine with h/o afib. Chronic pain received [place] 5/[address] Faustin. Will change from q4h to twice daily as at home. OARRS reviewed. Bowel and bladder: Continent. Skin: No pressure ulcers Sleep: Optimize sleep / wake. DVT prophylaxis: Covered with Eliquis. Functional status: Ambulatory. Needs assist. Left hemiplegia. Impaired endurance. Discharge planning: Home end of week I spent greater than 15 minutes for services, including szzf-wk-twmz encounter with the patient, discussion of the case, plan of care, and exam; and gfgngxw-uz-fgly activities, such as reviewing pertinent database consultant documentation, recent therapy notes, laboratory and radiology studies, and discussion of case with care team including physician, nursing, rehabilitation caseworker, and therapists. More than 50 % of time was spent on patient/family counseling or coordination ofcare. Decision Plan: I completed a substantive portion of this encounter, the medical decision makingportion of this note in its entirety, including Allied health note review, nursing note review, database consultant note review,discussion with nursing and case management, and more than 50% of my time was spent on counseling and coordination of care, time spent 25 minutes Patient was personally seen by me, Dr. Zaman, on the day of encounter, reviewed the history and therelevant portions of the chart, including current orders, allied health and database consultant notes, labs/imaging and performed smith elements of exam and I formulated the plan of care and facilitated the medical decision making. Documented By: Stiven Zaman MD 06/22/22 1133 Signed By: <Electronically signed by Stiven Zaman MD> 06/23/225 <Electronically signed by KIM Crowell> 06/22/[address] [facility] Work Phone: 1([phone]) 373-506001-10-2023 Progress note Author Stiven Zaman [facility] June 23, 2022 9:25pmNote Date/TimeJan2022 12:28[place] [address] Physiatry(Rehab) Progress Note Signed Patient: Abdirahman Gomez MR#: [id number] : 1940 Acct:[id number] Age/Sex: 81 / F Adm Date: 3 Loc: Room: 8R6603-2 Type: ADM IN Attending Dr: Stiven Zaman [...] lobe. She presented to outside facility around [place] with several days of generalized weakness. Her troponins were elevated. She was transferred to [facility]. Cardiology was consulted, did not feel [...] blood in the stool on admission to [facility], consistent with lower GI bleed. She was [...] no additional complaints, except as documented Exam <Loriscott Crowell, BUILDING CONSTRUCTION TEACHER - Last Filed: 06/23/22 12:28> Physical Exam [...] alert, oriented x3, moves all extremities. Residual left- sidedweakness in upper and lower extremity. Neuropathy in [...] % (Auto) 55.7 Lymph % (Auto) 31.9 [place] % (Auto) 8.4 Eos % (Auto) 3.2 Baso % (Auto) 0.8 Nucleat RBC Rel Count 0.1 Neut # (Auto) 4.5 Lymph # (Auto) 2.6 [place] # (Auto) 0.7 Eos # (Auto) 0.3 [...] 125 mcg DAILY JAK Administration Assessment/Plan <Lori CrowellKIM - Last Filed: 06/23/22 12:28> Assessment/Plan (1) [...] tizanidine with h/o afib. Chronic pain received [place] 5/[address] Faustin. Will change from q4h totwice daily as at home. OARRS reviewed. Bowel and bladder: Continent. Skin: No pressure ulcers Sleep: Optimize sleep / wake. DVT prophylaxis: Covered with Eliquis. Functional status: Ambulatory. Needs assist. Left hemiplegia. Impaired endurance. Discharge planning: Home Wednesday or . I spent greater than 15 minutes for services, including gscw-bv-slee encounter with the patient, discussion of the case, plan of care, and exam; and cznqfkb-et-xjxt activities, such as reviewing pertinent database consultant documentation, recent therapy notes, laboratory and radiology studies, and discussion of case with care team including physician, nursing, rehabilitation caseworker, and therapists. More than 50 % [...] tizanidine with h/o afib. Chronic pain received [place] 5/[address] Faustin. Will change from q4h to twice daily as at home. OARRS reviewed. Bowel and bladder: Continent. Skin: No pressure ulcers Sleep: Optimize sleep / wake. DVT prophylaxis: Covered with Eliquis. Functional status: Ambulatory. Needs assist. Left hemiplegia resolved. Impairedendurance. Discharge planning: Home Wednesday or , pending FI. I spent greater than 15 minutes for services, including vogt-iz-bwcc encounter with the patient, discussion of the case, plan of care, and exam; and kzupgdf-bp-jqmh activities, such as reviewing pertinent database consultant documentation, recent therapy notes, laboratory and radiology studies, and discussion of case with care team including physician, nursing, rehabilitation caseworker, and therapists. More than 50 % of time was spent on patient/family counseling or coordination ofcare. Decision Plan: I completed a substantive portion of this encounter, the medical decision makingportion of this note in its entirety, including Allied health note review, nursing note review, database consultant note review,discussion with nursing and case management, and more than 50% of my time was spent on counseling and coordination of care, time spent 25 minutes Patient was personally seen by me, Dr. Zaman, on the day of encounter, reviewed the history and therelevant portions of the chart, including current orders, allied health and database consultant notes, labs/imaging and performed smith elements of exam and I formulated the plan of care and facilitated the medical decision making. Documented By: Stiven Zaman MD 06/23/221220 Signed By: <Electronically signed by Stiven Zaman MD> 06/23/222124 <Electronically signed by KIM Crowell> 06/23/[address] [facility] Work Phone: 1([phone]) [phone] Progress note Author Stiven Zaman [facility] June 19, 2022 3:19pmNote Date/TimeJan2022 3:19[place] [address] Physiatry(Rehab) Progress Note Signed Patient: Abdirahman Gomez MR#: [id number] : 1940 Acct:[id number] Age/Sex: 81 / F Adm Date: 3 Loc: Room: [address] [place] [address] Type: ADM IN Attending Dr: Stiven Zaman [...] lobe. She presented to outside facility around [place] with several days of generalized weakness. Her troponins were elevated. She was transferred to [facility]. Cardiology was consulted, did not feel [...] blood in the stool on admission to [facility], consistent with lower GI bleed. She was [...] tizanidine with h/o afib. Chronic pain received [place] 5/[address] Faustin. Will change [...] Allied health note review, nursing note review, database consultant note review,discussion with nursing and case management, and more than 50% of my time was spent on counseling and coordination of care, time spent 35 minutes Patient was personally seen by me, Dr. Zaman, on the day of encounter, reviewed the history and therelevant portions of the chart, including current orders, allied health and database consultant notes, labs/imaging and performed smith elements of exam and I formulated the plan of care and facilitated the medical decision making. Documented By: Stiven Zaman MD 06/19/22 151 Signed By: <Electronically signed by Stiven Zaman MD> 06/19/[address] [facility] Work Phone: 1([phone]) 845-936701-05-2023 Progress note Author Stiven Zaman [facility] June 18, 2022 12:49pmNote Date/TimeJan2022 12:49[place] [address] Physiatry(Rehab) Progress Note Signed Patient: Abdirahman Gomez MR#: [id number] : 1940 Acct:[id number] Age/Sex: 81 / F Adm Date: 3 Loc: Room: [address] [place] [address] Type: ADM IN Attending Dr: Stiven Zaman [...] lobe. She presented to outside facility around [place] with several days of generalized weakness. Her troponins were elevated. She was transferred to [facility]. Cardiology was consulted, did not feel [...] blood in the stool on admission to [facility], consistent with lower GI bleed. She was cleared to remain on Eliquis. Etiologylikely mild diverticular bleed. Interval history: Continues to improve. Her biggest concern was actually her cardiac status. I did try to provide herwith some education and reassurance about what happened. [...] 06/17/22 21:16 Tizanidine 4 Mg Tablet PO 01/03/24 18:34 4 mg BID PRN Administration Pain [...] tizanidine with h/o afib. Chronic pain received [place] 5/[address] Faustin. Will change [...] Allied health note review, nursing note review, database consultant note review,discussion with nursing and case management, and more than 50% of my time was spent on counseling and coordination of care, time spent 30 minutes Patient was personally seen by me, Dr. Zaman, on the day of encounter, reviewed the history and therelevant portions of the chart, including current orders, allied health and database consultant notes, labs/imaging and performed smith elements of exam and I formulated the plan of care and facilitated the medical decision making. Documented By: Stiven Zaman MD 06/18/221245 Signed By: <Electronically signed by Stiven Zaman MD> 06/18/[address] [facility] Work Phone: 1([phone]) 994-781401-04-2023 History and physical note Author Stiven Zaman [facility] June 17, 2022 3:54pmNote Date/TimeJan2022 9:40[place] [address] Physiatry (Rehab) H&P Signed Patient: Abdirahman Gomez MR#: [id number] : 1940 Acct:[id number] Age/Sex: 81 / F Adm Date: 3 Loc: Room: 7S9293-3 Type: ADM IN Attending Dr: Stiven Zaman [...] lobe. She presented to outside facility around [place] with several days of generalized weakness. Her troponins were elevated. She was transferred to [facility]. Cardiology was consulted, did not feel [...] blood in the stool on admission to [facility], consistent with lower GI bleed. She was cleared to remain on Eliquis. Etiologylikely mild diverticular bleed. On evaluation today she feels generally well. 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 She does not appreciate [...] (Klor-Con M) 20 meq PO DAILY #30 tabs06/16/22 [Rx Confirmed 06/16/22] Active Medications Acetaminophen (Acetaminophen [...] 10 Mg Tablet) 10 mg PO HS [facility] Stop: 06/16/23 21:59 Last Admin: 06/16/22 21:17 Dose: 10 mg Omeprazole (Omeprazole 20 Mg Capsule.Dr) 40 mg PO DAILY [facility] Stop: 06/17/23 08:59 Last Admin: 06/17/22 08:07 Dose: 40 mg Polyethylene Glycol (Polyethylene Glycol 3350 17 Gm Powd.Pack) 17 gm PO DAILY [facility] Stop: 06/17/23 08:59 Last Admin: 06/17/22 08:07 Dose: Not Given Potassium Chloride (Potassium Chloride Er 20 Meq Tab.Er.Prt) 20 meq PO DAILY [facility] Stop: 06/17/23 08:59 Last Admin: 06/17/22 08:07 Dose: 20 meq Pramipexole Dihydrochloride (Pramipexole 0.5 Mg Tablet) 0.5 mg PO HS [facility] Stop: 06/16/23 21:59 Last Admin: 06/16/22 22:34 Dose: 0.5 mg Psyllium Hydrophilic Mucilloid (Psyllium Husk 3.4 Gm Packet) 1 packet PO BID [facility] Stop: 06/16/23 20:59 Last Admin: 06/17/22 08:04 Dose: 1 packet Sennosides (Sennosides 8.6 Mg Tablet) 2 tab PO BID [facility] Stop: 06/16/23 20:59 Last Admin: 06/17/22 08:04 [...] 40 Mg Tablet) 40 mg PO BID [facility] Stop: 06/16/23 20:59 Last Admin: 06/17/22 08:06 Dose: 40 mg Vitamin D (Cholecalciferol 125 Mcg (5,000 Units) Tablet) 125 mcg PO DAILY [facility] Stop: 06/17/23 08:59 Last Admin: 06/17/22 08:06 [...] % (Auto) 57.7 Lymph % (Auto) 29.1 [place] % (Auto) 9.4 Eos % (Auto) 2.4 Baso % (Auto) 1.4 Nucleat RBC Rel Count 0.0 Neut # (Auto) 6.3 Lymph # (Auto) 3.2 [place] # (Auto) 1.0 H Eos # (Auto) [...] and obtained and summated medical records and haveordered follow up lab tests and imaging studies as needed for rehabilitation care. Individualized Plan of Care Individualized Plan of Care Plan of Care: Individualized Overall Plan of Care: Admit Date/Time: June 16, 2022 Expected LOS: 2 weeks Expected Discharge Destination: Home Rehabilitation [facility]: .1 Primary Diagnosis: Stroke To have patient become more independent and to return home. Medical/ Functional Prognosis: Good Anticipated Functional Outcomes/Goals and Interventions: 1.Therapy Functional Outcome/Goal: Anticipate independent for bed mobility Anticipated interventions: Physician management, PT, OT, RADIATOR MECHANIC, , Dietitian, RehabNursing, Case management 2. Therapy Functional Outcome/Goal: Anticipate independent for transfers Anticipated interventions: Physician management, PT, OT, RADIATOR MECHANIC, Case management, Dietitian, Rehab Nursing 3. Therapy Functional Outcome/Goal: Anticipate independent for ambulation Anticipated interventions: Physician management, PT, OT, RADIATOR MECHANIC Case management, Dietitian, Rehab Nursing 4.Therapy Functional Outcome/Goal: Anticipate independent for self-care Anticipated interventions: Physician management, PT, OT, RADIATOR MECHANIC, Case management, Dietitian, Rehab Nursing 5.Therapy Functional Outcome/Goal: Anticipate independent for functional communication and swallowing Anticipated interventions: Physician management, PT, OT, RADIATOR MECHANIC, Case management, Dietitian, Rehab Nursing Required Therapy PT: 1 hour per day at least 5 days per week with additional therapy on as neededbasis. Comments: PT to improve pt's strength, endurance, bed mobility, transfers (sit- stand), standing balance, gait quality on level surfaces [...] and functional mobility and to evaluate for adaptiveand assistive devices. Will work to improve pt's endurance and educate pt on fall prevention and energy conservation techniques-pacing strategies and proper breathing techniques duringfunctional tasks. Speech/Language - 1 hour per day at least 5 days per week with additional therapy on as needed basis. Comments: RADIATOR MECHANIC to evaluate and treat patient?s cognition, language and communication skills, assess swallow function. Other: Dietitian, Rehab nursing, Wound, P&O, Neuropsychology as needed RATIONALE FOR IRF ADMISSION: Patient has both medical and functional complexities that require 24 hour daily monitoring and intervention from Questioned Documents Examiner as well as other consulting physicians including internal medicine as well as 24 hour daily facer operator nursing - for medical safe / optimal manageme nt. Patient requires interdisciplinary therapy team rehabilitation care including OT, PT, RADIATOR MECHANIC, SW, Psychology, Rehab Nursing, requires and can [...] tizanidine with h/o afib. Chronic pain received [place] 5/[address] Faustin. Will change [...] Allied health note review, nursing note review, database consultant note review,discussion with nursing and case management, and more than 50% of my time was spent on counseling and coordination of care, time spent 55 minutes Patient was personally seen by me, Dr. Zaman, on the day of encounter, reviewed the history and therelevant portions of the chart, including current orders, allied health and database consultant notes, labs/imaging and performed smith elements of exam and I formulated the plan of care and facilitated the medical decision making. Documented By: Stiven Zaman MD 06/17/22 0940 Signed By: <Electronically signed by Stiven Zaman MD> 06/17/[address] [facility] Work Phone: 1([phone]) [phone] Consult note Author Frida De La Cruz [facility] June 17, 2022 1:33pmNote Date/TimeJan2022 1:33[place] [address] Hospitalist Consult Note Signed Patient: Abdirahman Gomez MR#: [id number] : 1940 Acct:[id number] Age/Sex: 81 / F Adm Date: 3 Loc: Room: [address] [place] [address] Type: ADM IN Attending Dr: Stiven Zaman MD Copies to: MD Stiven Mccullough MD Rafik Massouh, MD~ HPI DATE OF CONSULTATION: 06/17/22 REQUESTING PROVIDER: Stiven Zaman Consult Narrative Reason for Consult: Hypertension, stroke paroxysmal A. fib HPI: Mrs Gomez is an 81-year-old female who was admitted initially to the medical floor. She was foundto have embolic stroke and paroxysmal A. fib. She was a stabilized and admitted to the rehab unit for inpatient course of physical Occupational Therapy. Patient is doing well. Improvement of strengthin the left arm and leg. She is able to stand up and ambulate with a walker and assist. no fever orchills. No chest pain or palpitation. Patient is [...] (Klor-Con M) 20 meq PO DAILY #30 tabs06/16/22 [Rx Confirmed 06/16/22] Active Medications: Active Medications [...] oriented to place, time and person HEENT: [place] conjunctiva and NL buccal mucosa Neck: Supple, [...] attention. Please refer to the physical and OccupationalTherapy team note for details on her functional status and the treatment plan []] Results Lab Results Labs: Laboratory Results - last 72 hr 06/17/22 06:15: PHA Creatinine Clear 50.13, Sodium 136, Potassium 3.7, Chloride 106, Carbon Cgfawtu38.6 L, Anion Gap 13.1, BUN 13, Creatinine 0.78, Est GFR ( Amer) > 60, Est GFR (Non-Af Amer) > 60, Glucose 107 H, Calcium 9.0, Total Bilirubin 0.5, AST 52 H, ALT 39, Alkaline Qbfmfdloqbz44, Total Protein 6.9, Albumin 3.3, Globulin 3.6, Albumin/Globulin Ratio 0.9, Prealbumin 24.1 06/17/22 06:15: Corrected WBC 10.9, Uncorrected WBC Count 10.9, RBC 3.81, Hgb 12.8, Hct 38.9, MCV 102.3 H, MCH 33.5, MCHC 32.8, RDW 13.2, Plt Count 309, MPV 7.5, Neut % (Auto) 57.7, Lymph % (Auto) 29.1, [place] % (Auto) 9.4, Eos % (Auto) 2.4, Baso % (Auto) 1.4, Nucleat RBC Rel Count 0.0, Neut # (Auto)6.3, Lymph # (Auto) 3.2, [place] # (Auto) 1.0 H, Eos # (Auto) [...] PCP and out patient providers to obtain [facility] record entirely to followup on illnesses, symptoms, abnormal findings that I have and have not addressed during this encounter and hospitalization in out patient setting. Documented By: Frida De La Cruz MD 06/17/22 1329 Signed By: <Electronically signed by Frida De La Cruz MD> 06/17/[address] [facility] Work Phone: 1(870) [phone] Progress note Author Frida De La Cruz [facility] June 16, 2022 11:42amNote Date/TimeJan2022 11:[address] [address] Progress Note Signed Patient: Abdirahman Gomez MR#: [id number] : 1940 Acct:[id number] Age/Sex: 81 / F Adm Date: 2 Loc: 3T Room: [address] [place] [address] Type: ADM IN Attending Dr: Frida De [...] La Cruz MD> 06/16/[address] [facility] Work Phone: [phone]) 112-112501-03-2023 Discharge summary Author Frida De La Cruz [facility] June 16, 2022 8:32amNote Date/TimeJan2022 8:24[place] [id number] Discharge Summary Signed with Addenda Patient: Abdirahman Gomez MR#: [id number] : 1940 Acct:[id number] Age/Sex: 81 / F Adm Date: 2 Loc: 3T Room: [address] [place] [address]: Frida De La Cruz MD Copies to: MD Frida Mccullough MD~ ADDENDUM2 In addition patient was noted to have borderline hyperglycemia. Hemoglobin A1c is 5.9. Fasting blood sugar is 136. I suspect that patient has a degree of type 2 diabetes. Recheck fasting blood sugar.Start patient on metformin Addendum Documented By: Frida De La Cruz MD 06/16/22 0832 Addendum Signed By: <Electronically signed by Frida De La Cruz MD> 06/16/22831 ADDENDUM1 In addition patient was noted to have elevated troponin. Patient was seen by cardiology team who elected not to proceed with any coronary investigation at this time. Please refer to cardiology note for details. Patient is recommendedto follow-up with cardiology to discuss this further post discharge from acute rehab Addendum Documented By: Frida De La Cruz MD 06/16/2225 Addendum Signed By: <Electronically signed by Frida De La Cruz MD> 06/16/2225 Providers Date of Discharge: 06/16/22 Discharging Provider: Frida De La Cruz Primary Care Provider: Iirsh Faustin Consults: 06/09/22 04:48 Consult to Occupational [...] fib with RVR. She was seen by clinical trial coordinator. She was recommended to be on Eliquis [...] % (Auto) 61.6, Lymph % (Auto) 27.7, [place] % (Auto) 6.9, Eos % (Auto) 2.6, Baso % (Auto) 1.2, Nucleat RBC Rel Count 0.1, Neut # (Auto)6.6, Lymph # (Auto) 2.9, [place] # (Auto) 0.7, Eos # (Auto) 0.3, [...] oriented to place, time and person HEENT: [place] conjunctiva and NL buccal mucosa Neck: Supple, [...] Plan Discharge Plan Patient Disposition: Rehab [facility] Activity: No Activity Restriction Diet: Low-Sodium and [...] ask your primary care provider to obtain [facility] records entirely to follow up on all of the abnormal physical, laboratory, and imaging findings thatI have not addressed. Please return back to the emergency room or seek medical attention if your symptoms worsen or return. Discharging you from [facility] does not mean that your medical [...] am (You have been scheduled for a followup appointment for the following date and time, please call to reschedule if needed.) Documented By: Frida De La Cruz MD 06/16/22821 Signed By: <Electronically signed by Frida De La Cruz MD> 06/16/[address] [facility] Work Phone: 1(908) 112-317601-02-2023 Progress note Author Frida De La Cruz [facility] June 15, 2022 8:38amNote Date/TimeJan2022 8:38[place] [address] Hospitalist Progress Note Signed Patient: Abdirahman Gomez MR#: [id number] : 1940 Acct:[id number] Age/Sex: 81 / F Adm Date: 2 Loc: Room: [address] [place] [address] Type: ADM IN Attending Dr: Frida De [...] oriented to place, time and person HEENT: [place] conjunctiva and NL buccal mucosa Neck: Supple, [...] pain. This could also be related to traumawhich she sustained on presentation. Probable mild diverticular [...] By: Frida De La Cruz MD 06/15/22 0874 Signed By: <Electronically signed by Frida De La Cruz MD> 06/15/[address] [facility] Work Phone: 1(358) 404-319301-01-2023 Progress note Author Nathaniel Castillo [facility] June 14, 2022 2:53pmNote Date/TimeJan2022 2:53pmSherry [place] [id number] Hospitalist Progress Note Signed Patient: Abdirahman Gomez MR#: [id number] : 1940 Acct:[id number] Age/Sex: 81 / F Adm Date: 2 Loc: Room: [address] [place] [address] Type: ADM IN Attending Dr: Nathaniel Castillo [...] pain. This could also be related to traumawhich she sustained on presentation. Probable mild diverticular [...] Full Documented By: Nathaniel Castillo MD 06/14/22 4497 Signed By: <Electronically signed by Nathaniel Castillo MD> 06/14/22 1453 [facility] Work Phone: 1(271) 362-151912-31-2022 Progress note Author Yoav Prado [facility] June 13, 2022 2:58pmNote Date/TimeDecember 2021 2:56[place] [address] Cardiology Progress Note Signed Patient: Abdirahman Gomez MR#: [id number] : 1940 Acct:[id number] Age/Sex: 81 / F Adm Date: 2 Loc: Room: [address] [place] [address] Type: ADM IN Attending Dr: Nathaniel Castillo [...] MD Yoav Prado> 06/13/[address] [facility] Work Phone: 1(263) 313-563512-31-2022 Progress note Author Nathaniel Castillo [facility] June 13, 2022 2:00pmNote Date/TimeDecember 2021 9:29[place] [address] Hospitalist Progress Note Signed Patient: Abdirahman Gomez MR#: [id number] : 1940 Acct:[id number] Age/Sex: 81 / F Adm Date: 2 Loc: Room: [address] [place] [address] Type: ADM IN Attending Dr: Nathaniel Castillo [...] of care and confirmed it with the re sident/student/REMEDIATION CONSULTANT. Patient resting in bed comfortably. Denies chest pain, shortness of breath, nausea, numbness, tingling. She was informed that she is approved for inpatientrehab and will be going on Wednesday. Her onlyconcern is that she has not yet had [...] movement but has not been successful yet int hospital Will plan to start MiraLAX, Metamucil, senna as needed Chronic conditions: A. fib, hyperlipidemia, hypertension, pacemaker status post CABG Diet: Regular DVT prophylaxis: Eliquis CODE STATUS: Full Documented By: Nathaniel Castillo MD 06/13/22 0927 Signed By: <Electronically signed by Nathaniel Castillo MD> 06/13/22 1400 <Electronically signed by DO RYAN Juarez> 06/13/[address] [facility] Work Phone: 1(975) 137-520412-30-2022 Progress note Author Nathaniel Castillo [facility] June 12, 2022 3:02pmNote Date/TimeDece2021 1:38pm[place]ez [place] [address] Hospitalist Progress Note Signed Patient: Abdirahman Gomez MR#: [id number] : 1940 Acct:[id number] Age/Sex: 81 / F Adm Date: 2 Loc: Room: [address] [place] [address] Type: ADM IN Attending Dr: Nathaniel Castillo [...] of care and confirmed it with the re sident/student/REMEDIATION CONSULTANT. Patient resting in chair comfortably. She has been working hard with physical therapy. Denies chestpain, shortness of breath, nausea. States that her numbness and tingling has improved. She has fulluse of her left lower extremity back to [...] nerves grossly intact, full strength left hand manager gas, full strength with flexion and extension of [...] DO RYAN Juarez> 06/12/[address] [facility] Work Phone: 1(354) 502-485612-30-2022 Progress note Author Paramjit Pride [facility] June 12, 2022 11:05amNote Date/TimeDecemb2021 11:05[place] [address] Cardiology Progress Note Signed Patient: Abdirahman Gomez MR#: [id number] : 1940 Acct:[id number] Age/Sex: 81 / F Adm Date: 2 Loc: Room: [address] [place] [address] Type: ADM IN Attending Dr: Nathaniel Castillo [...] comfortable, no acute distress and other (Currently ratingchest pain is 0/10) Nutritional Appearance: average body [...] By: <Electronically signed by Paramjit Pride MD> 06/12/22110[address] [facility] Work Phone: 1(519) 264-841012-29-2022 Progress note Author Nathaniel Castillo [facility] June 11, 2022 4:24pmNote Date/TimeDecember 2021 12:40pmSherry [place] [id number] Hospitalist Progress Note Signed Patient: Abdirahman Gomez MR#: [id number] : 1940 Acct:[id number] Age/Sex: 81 / F Adm Date: 2 Loc: 3T Room: [address] [place] [address] Type: ADM IN Attending Dr: Nathaniel Castillo [...] of care and confirmed it with the re sident/student/REMEDIATION CONSULTANT. Patient resting in bed comfortably. Denies chest pain, shortness of breath, nausea. States that hernumbness and tingling has improved. Exam Physical Exam [...] nerves grossly intact, full strength left hand manager gas which is improved upon yesterday's exam, full [...] <Electronically signed by Nathaniel Castillo MD> 06/11/22 6023 <Electronically signed by DO RYAN Juarez> 06/11/22 1240 [facility] Work Phone: 1(988) 612-565812-29-2022 Progress note Author Paramjit Pride [facility] June 11, 2022 9:45amNote Date/TimeDecember 2021 9:46[place] [id number] Cardiology Progress Note Signed Patient: Abdirahman Gomez MR#: [id number] : 1940 Acct:[id number] Age/Sex: 81 / F Adm Date: 2 Loc: Room: [address] [place] [address] Type: ADM IN Attending Dr: Nathaniel Castillo [...] comfortable, no acute distress and other (Currently ratingchest pain is 0/10) Nutritional Appearance: average body [...] % (Auto) 65.1 Lymph % (Auto) 24.1 [place] % (Auto) 9.1 Eos % (Auto) 1.2 Baso % (Auto) 0.5 Nucleat RBC Rel Count 0.1 Neut # (Auto) 7.4 Lymph # (Auto) 2.8 [place] # (Auto) 1.0 H Eos # (Auto) [...] the inferior leads. No acute or dynamic changeson this morning's ECG. Code(s): R94.31 - Abnormal [...] By: <Electronically signed by Paramjit Pride MD> 06/11/[address] [facility] Work Phone: 1(862) 296-757412-28-2022 Progress note Author Paramjit Pride [facility] June 10, 2022 6:21pmNote Date/TimeDece2021 12:12pmSherry [place] [id number] Cardiology Progress Note Signed with Tushar Patient: Abdirahman Gomez MR#: [id number] : 1940 Acct:[id number] Age/Sex: 81 / F Adm Date: 2 Loc: Room: [address] [place] [address] Type: ADM IN Attending Dr: Nathaniel Castillo MD Copies to: ~ ADDENDUM1 I had an extensive discussion today with the patient and her daughter. Her daughter has raised concern about whether or not the patient has had a heart attack and whether as such invasive management strategy (cardiac catheterization) should be warranted. I have explained in detail to both Alena daughter that she indeed has had a small heart attack. My clinical impression and diagnoses that this is a relatively small type II event primarilybased on the patient's echocardiogram which shows normal left ventricular regional wall motion and systolic function. There does appear to howeverto be on the echocardiogram and area of thinning in the basal inferior wall which is not affecting the left ventricular overall systolic performance. This lines up with pathologic Q waves present in inferior leads on the patient's surface EKG. The patient's troponin peaked initially in [place] emergency department at 9000and is now come down to 6000. I have explained that this is most consistentwith a completion of a small type II [...] at that point the risk-benefit ratio for [place] would shift to the point where cardiac [...] she is sitting up in a chair restingcomfortably. She is ambulated this morning without anginal [...] comfortable, no acute distress and other (Currently ratingchest pain is 0/10) Nutritional Appearance: average body [...] H* Echocardiogram Signed Patient: Abdirahman Gomez MR#: [id number] : 1940 Acct:[id number] Age/Sex: 81 / F ADM Date: 06/09/22 Loc: Room:? 9Q8931-6 Type:?ADM IN Attending Dr: Nathaniel Castillo MD [...] for which the patient has ample cardiac s ubstrate. Code(s): R77.8 - Other specified abnormalities of [...] 30 Documented By: Paramjit Pride MD 06/10/22 1155 Signed By: <Electronically signed by Paramjit Pride MD> 06/10/[address] [facility] Work Phone: 1([phone]) 484-319412-28-2022 Progress note Author Nathaniel Castillo [facility] June 10, 2022 1:35pmNote Date/TimeDecember 2021 1:31[place] [address] Progress Note Signed Patient: Abdirahman Gomez MR#: [id number] : 1940 Acct:[id number] Age/Sex: 81 / F Adm Date: 2 Loc: Room: [address] [place] [address] Type: ADM IN Attending Dr: Nathaniel Castillo MD Copies to: ~ Date of Service: 06/10/2022 Progress Narrative Note PROGRESS NOTE Progress Note: Patient did have some nausea this morning, now has a headache. Weakness in the left upper extremityis improved. Heart is regular, no gallop rub [...] abnormalities, but upon review from a different clinical trial coordinator, it was noted that she has akinesis and thinning of the basal inferior wall of LV suggestive of a prior ND. #2 atrial fibrillation. Patient had a small amount of GI bleed about 2 days ago. I believe this is fromdiverticulosis or possibly hemorrhoids. There is no ongoing evidence of GI blood loss. We will observe closely, and upondischarge she will readdress the issue of anticoagulant treatment. She may be a good candidate for Eliquis. Other chronic stable medical comorbidities include Hypertension Dyslipidemia Pacemaker in place Documented By: Nathaniel Castillo MD 06/10/22 1329 Signed By: <Electronically signed by Nathaniel Castillo MD> 06/10/[address] [facility] Work Phone: 1(248) 221-222112-27-2022 History and physical note Author Chema Milner [facility] June 09, 2022 8:18pmNote Date/TimeDecember 2021 4:14[place] [address] Hospitalist H&P Signed Patient: Abdirahman Gomez MR#: [id number] : 1940 Acct:[id number] Age/Sex: 81 / F Adm Date: 2 Loc: Room: [address] [place] [address] Type: ADM IN Attending Dr: Nathaniel Castillo MD Copies to: MD Chema Pham MD Douglas M Hoy, MD Samantha Mason, , RES~ HPI DATE OF EXAMINATION: 06/09/22 CHIEF COMPLAINT: Weakness HISTORY OF PRESENT ILLNESS: Patient is an 81-year-old female that is a transfer from [place] due to elevated troponins. Past medical history includes hypertension, hx CABG, presence of pacemaker, and paroxysmal atrial fibrillation. Patient had originally presented to the emergency room at [place] due to generalized weaknessthat started several days prior. She states she [...] to have some nonspecific EKG changes including moderateST depression with left axis deviation. Initial troponin was 9,385. Repeat troponin 8,564. The casewas discussed with Dr. Morton and not felt [...] release(part/cryst) (Klor-Con M) 40 meq PO DAILY 06/09/22[History Confirmed 06/09/22] pramipexole 0.5 mg tablet 0.5 [...] with Dr. Morton while patient was at [place]. It is not felt that patient is [...] of care and confirmed the nurse practitioners/residents/international logistics manager written note. Patient is a 81-year-old lady history of CAD status post CABG, hypertension, A. fib, presence of pacemaker presented to [place] due to weakness and bloody stools. Patient has history of diverticulosis. Hemoglobin 13.5. Incidentally troponins were significantly elevated but patient did not have anycardiac complaints. EKG with no acute ischemic changes. EKG reviewed by clinical trial coordinator, not felt to be an acute ischemic event and recommended transfer to [facility] for further evaluation and management. Patient upon arrival is asymptomatic. Patient is not a great historian. She has multiple vague complaints. She complains of ear pain, tooth ache, low back pain. She noted RNthat she had some weakness in left upper extremity but is able to move her extremities without any difficulty. She currently denies any weakness, numbness. We will trend troponin. Consult cardiology.Manage pain. Continue home meds. DVT prophylaxis Documented By: Rossi Valdez DO, RES 06/09/22 0411 Signed By: <Electronically signed by DO RYAN Valdez> 06/09/22 0609 <Electronically signed by Chema Milner MD> 06/09/22[address] [facility] Work Phone: 1(833) 846-760012-27-2022 Consult note Author Paramjit Pride [facility] June 09, 2022 3:21pmNote Date/TimeDece2021 3:16pm[place] [address] Cardiology Consult Note Signed Patient: Abdirahman Gomez MR#: [id number] : 1940 Acct:[id number] Age/Sex: 81 / F Adm Date: 2 Loc: Room: [address] [place] [address] Type: ADM IN Attending Dr: Nathaniel Castillo [...] [facility] after presenting complaining of generalized weakness but more pronounced weakness of the left arm and hand. The patient states she been feeling more weak and fatigued than normal over the preceding 10 days or so prior to her presentation. On the day that she presented to [facility] ER she noted that she feltvery weak while in her shower. She felt like her left hand was numb and would not work. She apparently had aminor fall but suffered no injury with such. However EMS was activated. The patient was ta robina to [facility] emergency department for evaluation. In the ER at [facility] EKG was suspicious for ST segment elevation in the inferior leads. I was sent this ECG. The changes on her ECG when compared to prior tracings appeared chronic. There was ST elevation/J-point elevation in the inferior leads. But these elevations were all associated with pathologic Q waves were unchanged from prior ECGs, and were not dynamic on serial ECGs. The patient wastreated medically for acute coronary syndrome. She was anticoagulated and she was [facility] furtherevaluation. Since being here [facility] patient has had a mild increase in her serum troponin which is now decreasing. Her ECG has remained unchanged. She continues to deny any chest pain or any other active anginal symptoms. Bedside echocardiogram has showed akinesis and thinning of thebasal inferior wall of the left ventricle. Otherwise there is normal regional wall motion and systolic function to the left ventricle with an ejection fraction estimated at 50 to 55%. Given the patient's abnormal ECG and abnormal serum troponins I am now consultedfor further cardiacevaluation and management. Review of Systems Review of [...] unit) tablet (Vitamin D3) 125 mcg PODAILY 12/27/22 [History Confirmed 06/09/22] furosemide 20 mg tablet [...] release(part/cryst) (Klor-Con M) 40 meq PO DAILY 06/09/22[History Confirmed 06/09/22] pramipexole 0.5 mg tablet 0.5 [...] x10E3/uL Lymph # (Auto) 2.3 (1.00-4.8) x10E3/uL [place] # (Auto) 1.3 H (0.0-0.8) x10E3/uL Eos [...] AV and intraventricular conduction: 1 AV block ND, pacemaker, normal Myocardial infarction: inferior ND (old age indeterminate) Normal tracing: no change [...] Inferior wall motion abnormality with LV thinning wouldbe consistent with old prior infarct. This would correspond and correlate with the patient's ECG findings of pathologic Q waves inferiorly with persistent nondynamic ST elevation. Plan: Recommendations: 1. Do not recommend invasive diagnostic or treatment strategy. The patient does not desire invasiveprocedures such as cardiac catheterization and I am inclined to agree with her. 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 2. Continue amlodipine 10 mg nightly 3. Continue carvedilol 12.5 mg p.o. twice daily for beta-blockade. If the patient does have room interms of heart rate and blood pressure we [...] discharge she can follow-up with her primary clinical trial coordinator in [facility]. Documented By: Paramjit Pride MD 06/09/22 1508 Signed By: <Electronically signed by Paramjit Pride MD> 06/09/[address] [facility] Work Phone: 1(610) 268-666712-27-2022 Progress note Author Nathaniel Castillo [facility] June 09, 2022 3:06pmNote Date/TimeDecemb2021 1:59pm[place]ez [place] [address] Hospitalist Progress Note Signed Patient: Abdirahman Gomez MR#: [id number] : 1940 Acct:[id number] Age/Sex: 81 / F Adm Date: 2 Loc: Room: 2E6969-5 Type: ADM IN Attending Dr: Nathaniel Castillo [...] of care and confirmed it with the re sident/student/REMEDIATION CONSULTANT. Patient resting in bed comfortably. Denies chest [...] rhythm, no murmurs, symmetric palpable radial and dorsalispedis pulses ABDOMEN: Soft, non-tender, non-distended, normal bowel sounds SKIN: Intact, no rash, no trauma NEURO: Cranial nerves grossly intact, +3 out of 5 strength on left hand manager gas, full strength with flexion and extension of [...] 10 Mg Tablet PO 06/09/23 21:59 [facility] Atorvastatin Calcium 40 mg 06/09/22 22:00 Atorvastatin 40 Mg Tablet PO 06/09/23 21:59 HS [facility] Carvedilol 12.5 mg 06/09/22 08:00 06/09/22 09:29 [...] 10 Mg Tablet PO 06/09/23 21:59 HS [facility] Omeprazole 40 mg 06/09/22 09:00 06/09/22 09:30 [...] and examination Only has decreased strength in manager gas on the left upon my exam Denies any sensory deficits Patient states this started yesterday No history of stroke Chronic conditions: A. fib, hyperlipidemia, hypertension, pacemaker status post CABG Diet: Regular DVT prophylaxis: SCDs CODE STATUS: Full Documented By: Marta Juarez DO, RES 06/09/22 1 354 Signed By: <Electronically signed by DO RYAN Juarez> 06/09/22 1403 <Electronically signed by Nathanile aCstillo MD> 06/09/22 1506 [facility] Work Phone: 1([phone]) [phone] NoteMR#: [id number] I [facility] Pt. Name: Abdirahman Gomez Admitted: 11/22/2021 [...] is an 81-year-old female who presented to [facility] with chief complaint of symptomatic [...] Mcfadden PA-C Date Trans: 11/26/2021 06:47 Ismael/daniel DN_[id number] cc: Irish Faustin M.D. [address] [place] [address]DpkFisher[facility]Titus Medical CenterEvaluation note* Diagnosis Onset Date Resolution Status A-fib acuteAbnormal ECGacuteConstipationacuteDiverticulosisacuteElevated troponinacute Embolic strokeacuteHypertensionacutePacemakeracuteParoxysmal atrial fibrillation acuteUpper extremity weaknessacute [facility] Work Phone: Evaluation note* Diagnosis Onset Date Resolution Status A-fib acuteAbnormal ECGacuteConstipationacuteDiverticulosisacuteElevated troponinacute Embolic strokeacuteHypertensionacutePacemakeracuteParoxysmal atrial fibrillation acuteUpper extremity weaknessacuteA-fibacuteAnxietyacuteCarotid stenosisacute Chronic painacuteElevated troponinacuteEmbolic strokeacuteHypertensionacute Impaired mobility and activities of daily livingacutePacemakeracuteParoxysmal atrial fibrillationacute [facility] Work Phone: Hospital Discharge instructions [...] ask your primary care provider to obtain [facility] records entirely to follow up on all of the abnormal physical, laboratory, and imaging findings that I have not addressed. Please return back to the emergency room or seek medical attention if your symptoms worsen or return. Discharging you from [facility] does not mean that your medical care ends here and now. You may still need additional monitoring, work up, investigation, and treatment plan to be handled from this point on by out patient providers including your primary care provider and specialists. For any medication question, please contact your retail pharmacist or your primary care provider. Thank you.[facility] Work Phone: Summary Purpose Family History No [...] weakness Chief Complaint GI Bleed/Elevated Tr oponin CVAReason for VisitA-fib Abnormal ECG Constipation Diverticulosis Elevated troponin Embolic stroke Hypertension Pacemaker Paroxysmal atrial fibrillation Upper extremity weakness A-fib Anxiety Carotid stenosis Chronic pain Elevated troponin Embolic stroke Hypertension Impaired mobility and activities of daily living Pacemaker Paroxysmal atrial fibrillation Additional Source Comments INFORMATION SOURCE (unrecogn ized section and content) DATE CREATED AUTHOR 12/03/2021 [facility] DATE CREATED AUTHOR AUTHOR'S ORGANIZ ATION 06/16/2022 [facility] DATE CREATED AUTHOR AUTHOR'S ORGANIZ ATION 07/18/2022 [facility] DATE CREATED AUTHOR AUTHOR'S ORGANIZ ATION 08/03/2022 [facility] DATE CREATED AUTHOR AUTHOR'S ORGANIZ ATION 02/10/2025 [facility] Care Teams (unrecognized sec tion and content) Team Status: Inactive Member Role Status Dates Irish Faustin MD Primary Care Provider Active Khushboo George ProviderActiveZacarias Hinson ProviderActive Team Status: Active Member Role Status Dates Irish Faustin MD Primary Care Provider Active Team Status: Inactive Member Role Status Dates Irish Faustin MD Primary Care Provider Active Khushboo Santiago Provider, Attending ProviderActiveBarb Santillan RN Other ProviderActiveLeta Calle RNOther ProviderActiveFaina Shah , PARISA Other ProviderActiveMicfrancisco Nettles , RNOther ProviderActiveLeilani Nick RNOther ProviderActiveAmina Aguiar RNOther ProviderActiveFrida De La Cruz MD Other ProviderActiveAnajenny Espitia MDOther ProviderActiveLisa Amelie Wallace , BUILDING CONSTRUCTION TEACHER Other ProviderActiveRonobirocío Rader , DOOther ProviderActiveMusshayan Montana MD Other ProviderActiveQuinn Ortiz , DOOther ProviderActiveNathaniel Castillo MDOther ProviderActiveGrace Greene MDOther ProviderActiveLymichael Cazares , ANP-BCOther ProviderActiveAminata Pedraza MDOther ProviderActiveBoaz Castro MDOther ProviderActiveJose Martin Lou MDOther ProviderActiveOlesya Toth MD Other ProviderActiveMichaebernadette Gutierrez , DOOther ProviderActiveHortencia Daigle MDOther ProviderActiveEarbernadette Dominguez MDOther ProviderActiveAmy Cayden Restrepo , REMEDIATION CONSULTANT-COther ProviderActiveGa Kwong MDOther ProviderActiveNaeshelbi Banks MD Other ProviderActiveAnoop Annia , MDOther ProviderActiveHerminia Andrew , DOOther ProviderActiveJohnny Benson , DOOther ProviderActiveRober Perez , DO Other ProviderActiveLinda Vane , APRNOther ProviderActiveDevante Lafleur , DO Other ProviderActiveMalu Roblero MDOther ProviderActiveMonisha Thompson APRNOther ProviderActiveMeghna Arcos RNOther ProviderActive FOR RECORDS PERTAINING TO PATIENTS WHO ARE [...] BE BASED ON THE PRIMARY CLINICAL RECORDS. [facility]. provides no warranty or guarantee of the accuracy or completeness of information in this document.
--- NOTE | 2025-05-18 13:35 | CT_ITS ---
The [address] [address] Patient Name: ABDIRAHMAN GOMEZ MRN: [id number] date: 1940 Sex: F Assigned Patient Location: CT Current Patient Location: CT Accession/Order Number: [id number] Exam Date: 05/18/2025 13:36 Report Date: 05/18/2025 14:44 At the request of: IRISH FAUSTIN MD Procedure: CT chest wo con CT CHEST WITHOUT IV CONTRAST: CLINICAL HISTORY: Hemoptysis R04.2 COMPARISON: Chest 01/23/2025 TECHNIQUE: Spiral images were obtained through the chest without IV contrast. This CT exam was performed using one or more following dose reduction techniques: Automated exposure control, adjustment of the mA and/or kV according to patient size, or use of iterative reconstruction technique. FINDINGS: Mediastinum:Pacemaker device noted. Thoracic aorta appears normal in caliber. Pulmonary trunk appears nondilated. No pleural effusion or lymphadenopathy. The esophagus is grossly unremarkable. Small hiatal hernia. Lungs:Mild reticular changes without honeycombing. No consolidation pneumothorax pleural effusion or nodule. Abd:No acute findings. Soft tissues/Bones: No acute findings. Osseous structures demonstrate degenerative change. Sternotomy wires are noted. CT/CT chest wo con IMPRESSION: No acute findings. Mild reticular changes without honeycombing. Impression dictated by: Stiven Beasley Jr., D.O. 05/18/2025 2:44 PM Dictation Location: [place] [address] Electronically authenticated by: [id number] Y Date: 05/18/2025 14:44
== END 2025-05-18 12:50 | disposition home or self-care (01) ==
LOC: CT 12:49
PROVIDERS: PCP Family Medicine; Visit Provider Family Medicine
DX: R04.2 Hemoptysis (principal); I36.1 Nonrheumatic tricuspid (valve) insufficiency; I65.23 Occlusion and stenosis of bilateral carotid arteries
CPT/HCPCS: 71250; 93306; 93880